=== PATIENT | female | born 1970 | race American Indian/Alaskan Native ===

== ENCOUNTER 2020-01-22 13:55 | Outpatient (CLI) | payer BC, MEDICARE, SELFPAY ==
[2020-01-23 02:41] LABS: COVID-19 RT-PCR UVMMC Result Negative (Negative)
== END 2020-01-22 14:15 ==
PROVIDERS: PCP Internal Medicine Gastroenterology; Visit Provider Internal Medicine Gastroenterology
DX: Z11.59 Encounter for screening for other viral diseases (principal); Z01.818 Encounter for other preprocedural examination
CPT/HCPCS: U0003

== ENCOUNTER 2020-11-08 02:33 | Outpatient (CLI) | payer BC, MEDICARE, SELFPAY ==
[2020-11-08 08:06] LABS: VALPROIC ACID 55.6 ug/mL (50-100)
[2020-11-08 08:08] LABS: Hemoglobin A1C 5.3 % (<5.7)
[2020-11-08 09:27] LABS: ALT 34 U/L (14-59); AST 20 U/L (15-37); Albumin 3.6 g/dL (3.4-5.0); Alkaline Phosphatase 57 U/L (46-116); BUN 18 mg/dL (7-18); Bilirubin, Total 0.3 mg/dL (0.2-1.0); Calcium 8.9 mg/dL (8.5-10.1); Calculated LDL 106 mg/dL (<100); Chloride 102 mmol/L (98-107); Cholesterol 196 mg/dL (<200); Estimated GFR 59.18 (mL/min/1.73m2); Glucose 92 mg/dL (74-106); HDL Cholesterol 75 mg/dL (40-60); Potassium 4.5 mmol/L (3.5-5.1); Sodium 132 mmol/L (136-145); TSH 2.03 uIU/mL (0.36-3.74); Total Protein 7.2 g/dL (6.4-8.2); Triglyceride 79 mg/dL (<150)
== END 2020-11-08 02:34 | disposition home or self-care (01) ==
LOC: LBO 02:33
PROVIDERS: PCP Internal Medicine Gastroenterology; Visit Provider Student in an Organized Health Care Education/Training Program
DX: Z79.899 Other long term (current) drug therapy (principal); Z51.81 Encounter for therapeutic drug level monitoring
CPT/HCPCS: 36415; 80053; 80061; 80164; 83036; 84443

== ENCOUNTER 2020-12-11 12:29 | Emergency (ER) | payer BC, MEDICARE, SELFPAY ==
--- NOTE | 2020-12-11 12:30 | DI.RAD_ITS ---
EXAM: XR TIB/FIB RT CLINICAL HISTORY: distal fib pain. TECHNIQUE: 2D digital imaging was performed. COMPARISON: No exams were available for comparison FINDINGS: There is an oblique nondisplaced fracture at and slightly below the neck of the proximal fibula. No other fractures identified in the fibula. No evidence of tibial plateau fracture. However, distally there appears to be a possible posterior malleolus fracture as seen on the lateral view. Recommend dedicated ankle views. IMPRESSION: DATA REPOSITORY: RADIATION DOSE DELIVERED:
[2020-12-11 12:32] VITALS: BP 128/85; PULSE 74; RESP 14; TEMP 36.7; O2SAT 99
[2020-12-11] MEDS: Acetaminophen 500 MG TAB 1000 MG PO (12:45)
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
--- NOTE | 2020-12-11 13:49 | DI.RAD_ITS ---
EXAM: XR ANKLE RT COMPLETE CLINICAL HISTORY: Lateral pain, question posterior fx. TECHNIQUE: 2D digital imaging was performed. COMPARISON: CR XR TIB/FIB RT from 12/11/2020 FINDINGS: Is dedicated ankle views do not reveal evidence of an obvious posterior malleolus fracture, as suspec can on tibia fibula films performed earlier same date. There is some soft tissue swelling. There is no widening of the mortise. Talar dome appears unremarkable. IMPRESSION: DATA REPOSITORY: RADIATION DOSE DELIVERED:
== END 2020-12-11 14:19 | disposition home or self-care (01) ==
PROVIDERS: Emergency Provider Emergency Medicine; PCP Internal Medicine Gastroenterology
DX: S93.491A Sprain of other ligament of right ankle, initial encounter (principal); W10.9XXA Fall (on) (from) unspecified stairs and steps, initial encounter
CPT/HCPCS: 29515; 99284; 73590; 73610; 99282

== ENCOUNTER 2021-04-11 02:32 | Outpatient (CLI) | payer BC, SELFPAY ==
[2021-04-11 15:00] LABS: Abs Immature Grans 0.05 10^3/uL (0.0-0.06); Absolute Basophil Count 0.09 10^3/uL (0.0-0.2); Absolute Eosinophil Count 0.54 10^3/uL (0.0-0.7); Absolute Monocyte Count 0.67 10^3/uL (0.1-0.8); Absolute Neutrophil Count 4.51 10^3/uL (1.2-6.7); Basophils % 1.2; HCT 37.9 % (36.0-46.0); HGB 12.8 g/dL (11.2-15.7); Immature Grans % 0.7; Lymphocytes % 23.5; MCH 32.6 pg (27.0-33.0); MCHC 33.8 % (32.0-36.0); MCV 96.4 fL (80-95); MPV 11.4 fL (8.0-11.0); Monocytes % 8.7; Neutrophils % 58.9; Nucleated RBC 0 %; Platelet Count 352 10^3/uL (130-400); RBC 3.93 10^6/uL (3.93-5.22); RDW 12.2 % (11.7-14.6); RDW-SD 43.2 fL; WBC 7.66 10^3/uL (4.4-10.8)
[2021-04-11 15:14] LABS: VALPROIC ACID 78.6 ug/mL (50-100)
[2021-04-11 15:33] LABS: Hemoglobin A1C 4.8 % (<5.7)
[2021-04-11 16:10] LABS: ALT 34 U/L (14-59); AST 27 U/L (15-37); Albumin 3.5 g/dL (3.4-5.0); Alkaline Phosphatase 83 U/L (46-116); Anion Gap 13.1 mmol/L (3-11); BUN 19 mg/dL (7-18); Bilirubin, Total 0.4 mg/dL (0.2-1.0); CO2 19.9 mmol/L (21.0-32.0); CREATININE 0.9 mg/dL (0.55-1.02); Calcium 9.1 mg/dL (8.5-10.1); Calculated LDL 97 mg/dL (<100); Chloride 102 mmol/L (98-107); Cholesterol 189 mg/dL (<200); Glucose 107 mg/dL (74-106); HDL Cholesterol 80 mg/dL (40-60); Potassium 4.4 mmol/L (3.5-5.1); Sodium 135 mmol/L (136-145); Triglyceride 60 mg/dL (<150)
[2021-04-11 16:49] LABS: *AMPHETAMINES SCREEN URINE Negative (Negative); *BARBITURATES SCREEN URINE Negative (Negative); *BENZODIAZEPINES SCREEN URINE Negative (Negative); Cannabinoids THC Positive (Negative); Cocaine Screen,Urine Negative (Negative); METHADONE URINE SCREEN Negative (Negative); OPIATES URINE SCREEN Negative (Negative)
[2021-04-11 16:51] LABS: Tricyclic Antidepressants Negative (Negative)
== END 2021-04-11 02:33 | disposition home or self-care (01) ==
PROVIDERS: PCP Internal Medicine Gastroenterology; Visit Provider Psychiatry & Neurology Psychiatry
DX: Z79.899 Other long term (current) drug therapy (principal)
CPT/HCPCS: 36415; 80053; 80061; 80307; 80164; 83036; 85025

== ENCOUNTER 2021-09-22 11:30 | Emergency (ER) | payer BC, OTHER, SELFPAY ==
[2021-09-22] VITALS (13 sets, daily range): BP systolic 126–145; BP diastolic 70–96; PULSE 79–112; RESP 9–22; TEMP 36.6; O2SAT 80–99
--- NOTE | 2021-09-22 11:30 | RT.EKG_ITS ---
APPROVED REPORT Exam: Resting ECG Reason for Exam: chest pain Patient Location: E HR:101 bpm ECG Measurements Heart Rate 101 AXIS IN [id number] P [id number] QRSd 85 QRS 28 QT 322 T 16 QTc 419 Conclusion Atrial fibrillation...V-rate 91-115, irreg A-activity sinus tachycardia at 101, normal axis, no STEMI, nondiagnostic EKG
--- NOTE | 2021-09-22 12:30 | DI.CT_ITS ---
Exam(s) CT THORAX ABDOMEN CTA EXAM: CT THORAX ABDOMEN CTA CLINICAL HISTORY: chest pain, eval aorta and for PE. TECHNIQUE: Imaging Protocol: Axial computed tomography images with coronal and sagittal reformatted images were created and reviewed CONTRAST MATERIAL: Intravenous: Omnipaque 350 Contrast volume:100 ml Oral: None COMPARISON: No exams were available for comparison FINDINGS: CHEST: THORACIC AORTA: The diameter of the ascending thoracic aorta is within normal limits. Maximum diamet er 2.6 cm. The maximum diameter of the aortic arch is 2.3 cm. Diameter of the descending thoracic a aaron is 2.3 cm. There is no evidence of dissection. Aortic arch anatomy is conventional. There is no significant stenosis at the origin the great vessels off the aortic arch. Both vertebral arteries originated conventional fashion off of the subclavian arteries. No evidence of subclavian artery st enosis proximal to the vertebral artery takeoff points to suggest subclavian steal possibility. ABDOMINAL AORTA: No evidence of abdominal aortic aneurysm. No significant atherosclerotic disease ab dominal aorta. No dilatation. No stenosis. Celiac and superior mesenteric arteries are patent with out evidence of stenosis at their origins. Both renal arteries are also patent. Inferior mesenteric artery is patent. Aortic bifurcation appears unremarkable. The aortoiliac segments were imaged out to the distal external iliac arteries and reveal normal luminal diameters with no evidence of aneury smal dilatation nor dissection. No significant stenosis. Internal iliac arteries are also patent an d nonaneurysmal. LUNGS: Very mild increased markings in the lateral segment of the right middle lobe. No other signif icant focal right lung findings and no pleural effusion.. In the opposite-left lung there are mild i ncreased markings in the posterior basal segment of the left lower lobe, also not associated with ple ural effusion. Remainder of the left lung, including the lingular segment is unremarkable. No obvious pulmonary emboli. MEDIASTINUM: There is no hilar nor mediastinal adenopathy. Visualized thyroid unremarkable. CARDIAC: Heart size is normal. There is no pericardial effusion. AORTA: Caliber of the thoracic aorta is within normal limits.There is no evidence of aortic dissectio n. ABDOMEN: There is no evidence of abdominal aortic aneurysm nor dissection.There is no aneurysmal dilatation of the common iliac arteries.The celiac and superior mesenteric arteries are patent. There is no ascites. LIVER: There are no focal hepatic lesions nor dilatation of intrahepatic ducts. GALLBLADDER/BILIARY: Gallbladder surgically absent CBD is not dilated. PANCREAS: No evidence of pancreatic mass nor dilatation of the pancreatic duct. SPLEEN: Spleen is not enlarged. There are no intrasplenic lesions. Splenic and portal veins are haddad nt. ADRENALS: There are no significant adrenal masses. KIDNEYS: There is a small cyst on the posterior cortex of the left kidney which measures 7 x 7 millim eters. No other focal renal findings. No calculi nor hydronephrosis. No solid renal masses. ABDOMINAL AORTA: The abdominal aorta is not enlarged. LYMPH NODES: No retroperitoneal adenopathy. There are few small left para-aortic lymph nodes, the la rgest measuring only 5 millimeters. No gross adenopathy . ABDOMINAL WALL: No evidence of significant anterior abdominal wall hernia. GI: There is no evidence of bowel obstruction, free air, nor abscess. OSSEOUS: No significant osseous lesions. IMPRESSION: 1. No evidence of aortic aneurysm in the chest and abdomen. No evidence of dissection. Normal heart size and no evidence pericardial effusion. 2. Mild increased markings noted in the lateral segment of the right middle lobe.. Also mild increas ed markings in the posterior basal segment of the left lower lobe. No other pulmonary findings. No pleural effusions. There are no obvious pulmonary emboli 3. Aortic bifurcation appears unremarkable as do the common and external iliac arteries. No evidence of aneurysmal dilatation of these vessels nor dissection. The distal aspect of the study was at the level of the distal external iliac arteries. RADIATION DOSE DELIVERED: 810.52mGy.cm Total DLP DATA REPOSITORY: All CT scans at this facility are submitted to the National Radiology Data Registry (NRDR) Dose Index Registry (DIR) with the [employer] (ACR). RADIATION OPTIMIZATION: All CT scans at this facility use at least one of these dose optimization te chniques: automated exposure control; mA and/or kV adjustment per patient size (includes targeted exa ms where dose is matched to clinical indication); or iterative reconstruction.
--- NOTE | 2021-09-22 12:52 | ED.GENADUL_ITS ---
Discharge Plan Disposition Patient Disposition: HOME Condition: Improving Discharge Details Clinical Impression: Chest pain, Abnormal CT scan Primary Care Provider: Tushar Urban ED Provider: Sarah Lopez Home Meds and New Rx's Prescriptions: Continued topiramate 200 mg tablet 200 mg DAILY 0RF sumatriptan succinate 100 mg tablet 100 mg PO DIRECTED PRN0RF clonazepam 0.5 mg tablet 0.5 mg TID PRN0RF olanzapine 2.5 mg tablet 2.5 mg QHS 0RF duloxetine 60 mg capsule,delayed release(DR/EC) 60 mg PO BID 0RF candesartan 16 mg tablet 16 mg HS 0RF Discharge Instructions Instructions: Chest Pain (ED) Additional Instructions: Please return immediately to the emergency department if you develop any new or worsening symptoms, if your condition does not improve as expected, or if you become otherwise concerned. It is extremely important that you call soon as possible to make an appointment to be seen in follow-up for this visit by your primary care doctor. Referrals: Tushar Urban [Primary Care Provider] - Discharge Data Discharge Date/Time-TO BE ENTERED AT DEPARTURE: 09/22/21 17:12 Medical Decision Making Lisseth Boone is a 51-year-old woman with a history of hypertension presenting to emergency department with chest pain. Patient reports that she was sitting at her desk at work at approximately 8:00 this morning when she developed sharp/pressure sensation in the middle of her chest. Patient reports that pain was constant for approximately 1.5 hours. Was worse with exertion while she was walking upstairs at work. Patient reports that pain gradually began to decrease, and is now only present with a forced cough or deep breathing. Patient denies any symptoms while currently resting in exam room. Patient reports that this morning her right arm felt somewhat achy, this has resolved. She denies any other pain, fevers, cough, shortness of breath, vomiting, diarrhea, numbness, weakness, rash, swelling. Patient reports that she has never had similar symptoms in the past. She denies any trauma or known inciting event. Patient reports that her mother at age 50 from aortic problem. She denies any other heart disease in her first-degree relatives. No family or personal history of blood clots. Patient reports she was previously well and in her usual state of health, has been eating and drinking as usual. On exam Pt is very well and non-toxic appearing. Benign cardiopulmonary exam. No chest wall TTP. Concern for ACS, MSK pain, aortic dissection, esophageal spasm, PE, other. Exam/hx at this time is not c/w sepsis, acute emergent non vascular intra-abdominal pathology. Plan for EKG, IV placement, IV fluid hydration, tele metry, CTA chest/abdomen, screening labs. Plan for repeat trop, EKG if initial w/u neg. Will monitor and reassess. Labs reviewed, trop neg, WBC 7.67, Hgb 13.5, AG 11.9. CTA neg for acute vascular process, shows increased lung marking of unknown significance. Pt without clinical PNA. Second trop neg. Pt reports that she has been pain free for entire ED stay, no longer has pleuritic pain, feels back to baseline and would like to go home. Pt is low risk for ACS by HEART score. Plan for outpt f/u for today's visit and for abnormal CT. I had a discussion with Patient regarding return to emergency department precautions, home care, and importance of outpatient follow-up. Pt verbalizes understanding of the plan and is amenable. Patient discharged to home with clear plan for outpatient follow-up. All questions were answered. Disposition decision was made weighing the risks and benefits of hospitalization versus outpatient treatment, the risk for further decompensation, and the patient's wishes. Medical Records Medical records reviewed: Yes I reviewed the patient's medical records. Imaging Data Radiologic Study: Attestation: I personally reviewed and interpreted this imaging study as follows: Radiologist's impression: Exam(s) CT THORAX ? ABDOMEN CTA EXAM: ? CT THORAX ? ABDOMEN CTA CLINICAL HISTORY: ? chest pain, eval aorta and for PE. ? TECHNIQUE:? Imaging Protocol: Axial computed tomography images with coronal and sagittal reformatted images were created and reviewed CONTRAST MATERIAL:? Intravenous: Omnipaque 350 Contrast volume:100 ml Oral: None COMPARISON:? No exams were available for comparison FINDINGS: CHEST: THORACIC AORTA: The diameter of the ascending thoracic aorta is within normal limits.? Maximum diameter 2.6 cm.? The maximum diameter of the aortic arch is 2.3 cm.? Diameter of the descending thoracic aorta is 2.3 cm.? There is no evidence of dissection.? Aortic arch anatomy is conventional.? There is no significant stenosis at the origin the great vessels off the aortic arch.? Both vertebral arteries originated conventional fashion off of the subclavian arteries.? No evidence of subclavian artery stenosis proximal to the vertebral artery takeoff points to suggest subclavian steal possibility. ABDOMINAL AORTA: No evidence of abdominal aortic aneurysm.? No significant atherosclerotic disease abdominal aorta.? No dilatation.? No stenosis.? Celiac and superior mesenteric arteries are patent without evidence of stenosis at their origins.? Both renal arteries are also patent.? Inferior mesenteric artery is patent.? Aortic bifurcation appears unremarkable.? The aortoiliac segments were imaged out to the distal external iliac arteries and reveal normal luminal diameters with no evidence of aneurysmal dilatation nor dissection.? No significant stenosis.? Internal iliac arteries are also patent and nonaneurysmal. LUNGS: Very mild increased markings in the lateral segment of the right middle lobe.? No other significant focal right lung findings and no pleural effusion..? In the opposite-left lung there are mild increased markings in the posterior basal segment of the left lower lobe, also not associated with pleural effusion.? Remainder of the left lung, including the lingular segment is unremarkable. No obvious pulmonary emboli. MEDIASTINUM: There is no hilar nor mediastinal adenopathy. Visualized thyroid unremarkable. CARDIAC: Heart size is normal.? There is no pericardial effusion. AORTA: Caliber of the thoracic aorta is within normal limits.There is no evidence of aortic dissection. ABDOMEN: There is no evidence of abdominal aortic aneurysm nor dissection.There is no aneurysmal dilatation of the common iliac arteries.The celiac and superior mesenteric arteries are patent. There is no ascites. LIVER: There are no focal hepatic lesions nor dilatation of intrahepatic ducts.? GALLBLADDER/BILIARY: Gallbladder surgically absent CBD is not dilated. PANCREAS: No evidence of pancreatic mass nor dilatation of the pancreatic duct.? SPLEEN: Spleen is not enlarged.? There are no intrasplenic lesions. Splenic and portal veins are patent. ADRENALS: There are no significant adrenal masses. KIDNEYS: There is a small cyst on the posterior cortex of the left kidney which measures 7 x 7 millimeters.? No other focal renal findings.? No calculi nor hydronephrosis. No solid renal masses. ABDOMINAL AORTA: The abdominal aorta is not enlarged. LYMPH NODES: No retroperitoneal adenopathy.? There are few small left para- aortic lymph nodes, the largest measuring only 5 millimeters.? No gross adenopathy . ABDOMINAL WALL: No evidence of significant anterior abdominal wall hernia.? GI: There is no evidence of bowel obstruction, free air, nor abscess. OSSEOUS: No significant osseous lesions. IMPRESSION: 1. No evidence of aortic aneurysm in the chest and abdomen.? No evidence of dissection.? Normal heart size and no evidence pericardial effusion. 2. Mild increased markings noted in the lateral segment of the right middle lobe..? Also mild increased markings in the posterior basal segment of the left lower lobe.? No other pulmonary findings.? No pleural effusions.? There are no obvious pulmonary emboli 3. Aortic bifurcation appears unremarkable as do the common and external iliac arteries.? No evidence of aneurysmal dilatation of these vessels nor dissection.? The distal aspect of the study was at the level of the distal external iliac arteries. Lab Data Lab results reviewed: Yes I reviewed the patient's lab results. Labs: Laboratory Tests Range/Units 09/22/21 09/22/21 09/22/21 12:50 12:50 15:45 WBC (4.4-10.8) 10^3/uL 7.67 RBC (3.93-5.22) 10^6/uL 3.96 Hgb (11.2-15.7) g/dL 13.5 Hct (36.0-46.0) % 39.9 MCV (80-95) fL 100.8 H MCH (27.0-33.0) pg 34.1 H MCHC (32.0-36.0) % 33.8 RDW (11.7-14.6) % 12.1 Plt Count (130-400) 10^3/uL 323 MPV (8.0-11.0) fL 10.9 Immature Gran % 0.8 Neutrophils % 59.2 Lymphocytes % 26.3 Monocytes % 8.5 Eosinophils % 4.0 Basophils % 1.2 Nucleated RBC % % 0 Absolute Neutrophils (1.2-6.7) 10^3/uL 4.54 Absolute Lymphocytes (1.2-3.4) 10^3/uL 2.02 Absolute Monocytes (0.1-0.8) 10^3/uL 0.65 Absolute Eosinophils (0.0-0.7) 10^3/uL 0.31 Absolute Basophils (0.0-0.2) 10^3/uL 0.09 Sodium (136-145) mmol/L 141 Potassium (3.5-5.1) mmol/L 3.7 Chloride (98-107) mmol/L 106 Carbon Dioxide (21.0-32.0) mmol/L 23.1 Anion Gap (3-11) mmol/L 11.9 H BUN (7-18) mg/dL 17 Creatinine (0.55-1.02) mg/dL 0.9 Estimated GFR/1.73 m2 (mL/min/1.73m2) >= 60.00 Glucose (74-106) mg/dL 93 Calcium (8.5-10.1) mg/dL 9.4 Magnesium (1.8-2.4) mg/dL 2.0 Total Bilirubin (0.2-1.0) mg/dL 0.4 AST (15-37) U/L 52 H ALT (14-59) U/L 54 Alkaline Phosphatase (46-116) U/L 149 H Troponin I (<or=60) ng/L < 50 < 50 Total Protein (6.4-8.2) g/dL 7.8 Albumin (3.4-5.0) g/dL 3.8 ECG Data Attestation: I personally reviewed and interpreted this ECG (s) as follows: Interpretation: EKG shows sinus tachycardia at 101, normal axis, no STEMI, nondiagnostic EKG Repeat EKG 16: 02 shows sinus rhythm 84, normal axis, no acute ischemic changes, nondiagnostic EKG HPI General Mode of arrival: ambulatory . Date/Time Provider Initiated Documentation: 09/22/21 12:11 . Limitations to Documentation: no limitations . Information obtained by: patient, RN notes reviewed and old records reviewed . HPI Narrative: Lisseth Boone is a 51-year-old woman with a history of hypertension presenting to emergency department with chest pain. Patient reports that she was sitting at her desk at work at approximately 8:00 this morning when she developed sharp/pressure sensation in the middle of her chest. Patient reports that pain was constant for approximately 1.5 hours. Was worse with exertion while she was walking upstairs at work. Patient reports that pain gradually began to decrease, and is now only present with a forced cough or deep breathing. Patient denies any symptoms while currently resting in exam room. Patient reports that this morning her right arm felt somewhat achy, this has resolved. She denies any other pain, fevers, cough, shortness of breath, vomiting, diarrhea, numbness, weakness, rash, swelling. Patient reports that she has never had similar symptoms in the past. She denies any trauma or known inciting event. Patient reports that her mother at age 50 from aortic problem. She denies any other heart disease in her first-degree relatives. No family or personal history of blood clots. Patient reports she was previously well and in her usual state of health, has been eating and drinking as usual. Related Data Home Medications Medication Instructions Recorded Confirmed candesartan 16 mg tablet 16 mg HS 09/22/21 09/22/21 clonazepam 0.5 mg tablet 0.5 mg TID PRN 09/22/21 09/22/21 duloxetine 60 mg capsule,delayed 60 mg PO BID 09/22/21 09/22/21 release olanzapine 2.5 mg tablet 2.5 mg QHS 09/22/21 09/22/21 sumatriptan succinate 100 mg tablet 100 mg PO DIRECTED PRN 09/22/21 09/22/21 topiramate 200 mg tablet 200 mg DAILY 09/22/21 09/22/21 Allergies Allergy/AdvReac Type Severity Reaction Status Date / Time No Known Allergies Allergy Unverified 09/22/21 12:55 General Stated Complaint: Chest Pain MAIA: 3 Review of Systems Narrative: Constitutional: denies fevers Eyes: denies eye pain ENT: denies ear pain, dental pain, sore throat Cardiovascular: denies edema, reports chest pain Respiratory: denies SOB, cough GI: denies abdominal pain, vomiting, diarrhea : denies flank pain MSK:, Reports right arm aching, denies back pain, neck pain, arthralgias, other myalgias Skin: denies rash Neuro: denies headaches, numbness, weakness PFSH All Active Problems (Updated 09/22/21 @ 15:15 by Sarah Lopez MD) Right ankle sprain (Acute) Chest pain (Acute) Abnormal CT scan (Acute) Social History Smoking/Tobacco Use Status: Never Smoking risk assessment performed?: Yes Alcohol Intake: never Drug use: Never Substance use type: does not use Do you feel safe at home: Yes Do you feel safe in your relationship?: Yes Exam Narrative Exam Narrative: Constitutional: well and [id number], pleasant, conversing normally HENT: head atraumatic/normocephalic/normal inspection, mucous membranes moist Eyes: conjunctiva normal, sclera normal, pupils 3mm b/l Neck: no stridor, normal ROM, trachea midline Chest: normal inspection, no tenderness to palpation Resp: normal work of breathing, LCTAB Cardio: Tachycardic rate, normal rhythm, no murmur appreciated GI: abdomen soft, non-tender, non-distended Back: normal inspection, no rash Skin: warm, dry, normal color, no rash Neuro: alert, not altered, grossly non-focal, normal tone Ext: no edema, no posterior calf tenderness to palpation Psych: normal mood, normal affect, normal behavior Course Vital Signs Vital signs: Vital Signs Temperature 36.6 C 09/22/21 11:39 Pulse 112 H 09/22/21 11:39 Respiratory Rate 18 09/22/21 11:39 Blood Pressure 145/93 H 09/22/21 11:39 Pulse Oximetry 97 09/22/21 11:39 Temperature 36.6 C 09/22/21 11:39 Temperature Source Temporal Artery Scan 09/22/21 11:39 Pulse 112 H 09/22/21 11:39 Respiratory Rate 18 09/22/21 11:39 Blood Pressure 145/93 H 09/22/21 11:39 Blood Pressure Position Sitting 09/22/21 11:39 Pulse Oximetry 97 09/22/21 11:39 Oxygen Delivery Method Room Air 09/22/21 11:39 Oxygen Flow Rate 0 09/22/21 11:39
[2021-09-22 12:59] LABS: Abs Immature Grans 0.06 10^3/uL (0.0-0.06); Absolute Basophil Count 0.09 10^3/uL (0.0-0.2); Absolute Eosinophil Count 0.31 10^3/uL (0.0-0.7); Absolute Lymphocyte Count 2.02 10^3/uL (1.2-3.4); Absolute Monocyte Count 0.65 10^3/uL (0.1-0.8); Absolute Neutrophil Count 4.54 10^3/uL (1.2-6.7); Basophils % 1.2; HCT 39.9 % (36.0-46.0); HGB 13.5 g/dL (11.2-15.7); Immature Grans % 0.8; Lymphocytes % 26.3; MCH 34.1 pg (27.0-33.0); MCHC 33.8 % (32.0-36.0); MCV 100.8 fL (80-95); MPV 10.9 fL (8.0-11.0); Monocytes % 8.5; Neutrophils % 59.2; Nucleated RBC 0 %; Platelet Count 323 10^3/uL (130-400); RBC 3.96 10^6/uL (3.93-5.22); RDW 12.1 % (11.7-14.6); RDW-SD 45.8 fL; WBC 7.67 10^3/uL (4.4-10.8)
[2021-09-22] MEDS: Normal Saline 1,000 ML 1000 ML IV (13:04)
[2021-09-22 13:17] LABS: ALT 54 U/L (14-59); AST 52 U/L (15-37); Albumin 3.8 g/dL (3.4-5.0); Alkaline Phosphatase 149 U/L (46-116); Anion Gap 11.9 mmol/L (3-11); BUN 17 mg/dL (7-18); Bilirubin, Total 0.4 mg/dL (0.2-1.0); CO2 23.1 mmol/L (21.0-32.0); CREATININE 0.9 mg/dL (0.55-1.02); Calcium 9.4 mg/dL (8.5-10.1); Chloride 106 mmol/L (98-107); Glucose 93 mg/dL (74-106); Potassium 3.7 mmol/L (3.5-5.1); Sodium 141 mmol/L (136-145); Total Protein 7.8 g/dL (6.4-8.2); Troponin I < 50 ng/L (<or=60)
[2021-09-22] MEDS: Omnipaque 350 MG/ML 100 ML BTL IJ (13:47)
--- NOTE | 2021-09-22 15:15 | RT.EKG_ITS ---
APPROVED REPORT Exam: Resting ECG Reason for Exam: chest pain Patient Location: E HR:84 bpm ECG Measurements Heart Rate 84 AXIS [place] [id number] P [id number] QRSd 89 QRS 20 QT 351 T 11 QTc 415 Conclusion Atrial fibrillation...V-rate 81- 88, irreg A-activity sinus rhythm 84, normal axis, no acute ischemic changes, nondiagnostic EKG
[2021-09-22 16:08] LABS: Troponin I < 50 ng/L (<or=60)
== END 2021-09-22 17:12 | disposition home or self-care (01) ==
PROVIDERS: Emergency Provider Student in an Organized Health Care Education/Training Program; PCP Internal Medicine Gastroenterology
DX: R07.9 Chest pain, unspecified (principal); R91.8 Other nonspecific abnormal finding of lung field; Z82.49 Family history of ischemic heart disease and other diseases of the circulatory system; I10 Essential (primary) hypertension
CPT/HCPCS: 36415; 71275; 74175; 80053; 80061; 86803; 93005; 96360; 99285; 83036; 83735; 84484; 85025; 93010; 99284; J3490

== ENCOUNTER 2022-02-25 11:24 | Outpatient (REF) | payer OTHER, SELFPAY ==
[2022-02-25 20:11] LABS: Abs Immature Grans 0.04 10^3/uL (0.0-0.06); Absolute Basophil Count 0.07 10^3/uL (0.0-0.2); Absolute Eosinophil Count 0.63 10^3/uL (0.0-0.7); Absolute Lymphocyte Count 1.55 10^3/uL (1.2-3.4); Absolute Monocyte Count 0.54 10^3/uL (0.1-0.8); Absolute Neutrophil Count 3.88 10^3/uL (1.2-6.7); Eosinophils % 9.4; HCT 37.5 % (36.0-46.0); HGB 13.1 g/dL (11.2-15.7); Immature Grans % 0.6; Lymphocytes % 23.1; MCH 33.9 pg (27.0-33.0); MCHC 34.9 % (32.0-36.0); MCV 97 fL (80-95); MPV 12.5 fL (8.0-11.0); Neutrophils % 57.9; Platelet Count 337 10^3/uL (130-400); RBC 3.86 10^6/uL (3.93-5.22); RDW 12.5 % (11.7-14.6); RDW-SD 44.1 fL; WBC 6.71 10^3/uL (4.4-10.8)
[2022-02-25 21:16] LABS: Calculated LDL 115 mg/dL (<100); Cholesterol 215 mg/dL (<200); HDL Cholesterol 76 mg/dL (40-60); Triglyceride 122 mg/dL (<150)
[2022-02-27 09:43] LABS: Hepatitis C Ab w Rflx HCV PCR Negative (Negative)
--- OUTSIDE RECORDS SUMMARY | 2022-03-18 11:27 | XMS_ITS | Encounter Summary ---
:1970 Author Organization [facility] Address [address] [place] [address] Care Team Providers Name Role Phone Polly Schmid NP Primary Care Provider Unavailable Encounter Details Date Type Department Care Team Description 06/11/2009 Orders Only [facility] Jason Pang, Psychiatry - S Prosp ect [address] [place] [id number] [place] [phone] (Wo rk) Social History Tobacco Use Types Packs/Day Years Used Date Never Assessed Sex Assigned at Date Recorded Not on file documented as of this encounter Plan of Treatment Not on filedocumented as of this encounter Procedures Procedure Name Priority Date/Time Associated Comments Diagnosis HPV DETECTION, HIGH Routine 06/11/2009 15:13 Resu lts for this RISK TYPES EDT procedure are i n the results section. CYTOPATHOLOGY Routine 06/11/2009 0:00 Results for this EDT procedure are i n the results section. documented in this encounter Results HUMAN PAPILLOMA VIRUS DNA TEST (06/11/2009 15:13 EDT) Specimen Description Cervix, ThinPrep [facility] vial Result Negative for HPV [facility] types 16, 18, 31, 33, 35, 39, 45, 51, 52, 56, 58, 59, and 68. Report Status Final [facility] 06/26/2009 Specimen Performing Organization Address City/State/ZIP Code Phon e Number [facility] [address] [place] [address] SERVICES [facility] [address] [address] CYTOPATHOLOGY (06/11/2009 0:00 EDT) Pathology Report: CYTOPATHOLOGY REPORT ? [facility] ? LAB Reports generated via [employer] interface contain original data; ? however they are lacking the format of the original report. ? Caution should be taken when reading/interpreting unformatted reports. ? Name: ? LISSETH ARAGON ? Accession #: ? [id number] ? : ? 1970 (Age: 38) ??F ?Collect Date: ? 06/11/2009 ? Location: ? [facility] ? Receive Date: ? 06/12/2009 ? Provider: ?REMINGTON PANG MD ? Copy to: ? Specimen/Source: ? Pap Test, Cervix/Endocervix, ThinPrep Imaging System ? with manual evaluation ? Last Menstrual Period: ? 01/2009 ? Previous Gynecologic Patholo gy: ? ASC-US: 10/08 ? HPV: + HR 10/08, 03/09 & 08/ 09 ? LSIL: 03/09 & 08/09 ? Treatment History: ? Colposcopy: 03/09 LGSIL ? Other: ? HPVDX - HPV testing requeste d regardless of diagnosis on current ThinPrep Pap ?? test. ? SPECIMEN ADEQUACY ? Satisfactory for Eval uation ? - transformation zone compon ent present ? GENERAL CATEGORIZATION ? Negative for Intraepi thelial Lesion or Malignancy ? INTERPRETATION ? Reactive cellular marcos nges associated with inflammation present (includes ?? repair). ? Document reviewed and electr onically signed by: ? ABDELMONEM ELHOSSEINY MD ? Report Date: ??11/05/ 2009 18:17 ? End of Report ? Specimen Performing Organization Address City/State/ZIP Code Phon e Number [facility] [address] [place] [address] SERVICES [facility] [address] [place] [address] documented in this encounter Visit Diagnoses Not on filedocumented in this encounter Care Teams Barrel Assembler Relationship Specialty Start Date End Date Polly Schmid NP PCP - General 04/24/09 02/25/14 documented as of this encounter
--- OUTSIDE RECORDS SUMMARY | 2022-03-18 11:27 | XMS_ITS | Encounter Summary ---
:[address] [facility] Address [address] [place] [address] Care Team Providers Name Role Phone Polly Schmid NP Primary Care Provider Unavailable Encounter Details Date Type Department Care Team Description 12/15/2010 Results Only [facility] Shayla Courtney, Laboratory Services - [facility] [address] [place] [address] [address] [place] [address] [place] [address] [phone] Social History Tobacco Use Types Packs/Day Years Used Date Never Assessed Sex Assigned at Date Recorded Not on file documented as of this encounter Plan of Treatment Not on filedocumented as of this encounter Procedures Procedure Name Priority Date/Time Associated Diagnosis Comme nts PAP TEST- RESULT Routine 12/15/2010 0:00 EDT Resu lts for this ONLY procedure are i n the results section. documented in this encounter Results PAP TEST- RESULT ONLY (12/15/2010 0:00 EDT) Pathology Report: CYTOPATHOLOGY REPORT ? [facility] ? LAB Reports generated via electr onic interface contain original data; ? however they are lacking the format of the original report. ? Caution should be taken when reading/interpreting unformatted reports. ? Name: ? SLICER, CAROLINA ? Accession #: ? [id number] ? : ? 1970 (Age: 40) ??F ?Collect Date: ? 12/15/2010 ? Location: ? [facility] ? Receive Date: ? 12/16/2010 ? Provider: ?SHAYLA COURTNEY APRN ? Copy to: ? Specimen/Source: ? Pap Test, Source Not Provided, ThinPrep Imaging System ?? with manual evaluation ? Last Menstrual Period: ? SPECIMEN ADEQUACY ? Satisfactory for Eval uation ? - transformation zone compon ent present ? GENERAL CATEGORIZATION ? Negative for Intraepi thelial Lesion or Malignancy ? INTERPRETATION ? Shift in tashi presen t suggestive of bacterial vaginosis. ? Document reviewed and electr onically signed by: ? Polly Rosa, SCT( ASCP) ? Report Date: ??05/05/ 2011 14:39 ? End of Report ? Specimen Performing Organization Address City/State/[facility] Code Phon e Number [facility] [address] [place] [address] SERVICES [facility] [address] [place] [address] documented in this encounter Visit Diagnoses Not on filedocumented in this encounter Care Teams Buyer Relationship Specialty Start Date End Date Polly Schmid NP PCP - General 04/24/09 02/25/14 documented as of this encounter
--- OUTSIDE RECORDS SUMMARY | 2022-03-18 11:27 | XMS_ITS | Encounter Summary ---
:1970 Author Organization [facility] Address [address] [place] [address] Care Team Providers Name Role Phone Polyl Schmid NP Primary Care Provider Unavailable Encounter Details Date Type Department Care Team Description 08/25/2012 Results Only [facility] Eric Huang Chi, MD Imaging Rheumatology & [address] [place] [address] A venue Immunology - [facility], [facility], [address] 5 [address] [place] [phone] (Wo rk) Social History Tobacco Use Types Packs/Day Years Used Date Never Assessed Sex Assigned at Date Recorded Not on file documented as of this encounter Plan of Treatment Pending Results Name Type Priority Associated Diagnoses Date/Ti me OUTSIDE IMAGES - US BODY Imaging 05/2013 12:51 EST OUTSIDE IMAGES - CT NEURO Imaging 12:51 EST OUTSIDE IMAGES - CT NEURO Imaging 12:51 EST OUTSIDE IMAGES - OTHER Imaging 08/25 12:51 EST CHEST OUTSIDE IMAGES - OTHER Imaging 08/25 12:51 EST CHEST OUTSIDE IMAGES - NM OTHER Imaging 12:51 EST documented as of this encounter Visit Diagnoses Not on filedocumented in this encounter Care Teams Packing Floor Worker Relationship Specialty Start Date End Date Polly Schmid NP PCP - General 04/24/09 02/25/14 documented as of this encounter
--- OUTSIDE RECORDS SUMMARY | 2022-03-18 11:27 | XMS_ITS | Encounter Summary ---
:1970 Author Organization [facility] Address [address] [place] [address] Care Team Providers Name Role Phone Polly Schmid NP Primary Care Provider Unavailable Reason for Visit Reason Comments Other Encounter Details Date Type Department Care Team Description 12/29/2012 Telephone [facility] Eric Huang Chi, MD Other Rheumatology & Immunology - [address] [facility], [address], [address] [place], [place] [id number] [place], [place] [phone] (Wo rk) Social History Tobacco Use Types Packs/Day Years Used Date Current Every Day Smoker Cigarettes 0.5 2 Smokeless Tobacco: Never Used Alcohol Use Standard Drinks/Week Comments No 0 (1 standard drink = 0.6 oz pure alcoho l) Sex Assigned at Date Recorded Not on file documented as of this encounter Ordered Prescriptions Prescription Sig Dispensed Refills Start Date End Date omeprazole (PRILOSEC) 20 TAKE 1 CAPSULE BY 30 Cap 3 12/14 mg capsule MOUTH DAILY FOR STOMACH documented in this encounter Miscellaneous Notes Telephone Encounter - Rajwinder Del Rio RN - 12/30/2012 1333 EDT Spoke with Eduardo Severino. Cancelled refill of omeprazole. Left a message for the patient letting her know she can get her medication through her pcp or she can make an FUR and keep it with ectronically signed by Rajwinder Del Rio RN at 12/30/2012 13:36 EDTTelephone Encounter - Eric Huang Chi, MD - 12/30/2012 1309 EDT Did not sign off on omeprazole refill as pt no showed appt with us yesterday December 29. documented in this encounter Plan of Treatment Not on filedocumented as of this encounter Visit Diagnoses Not on filedocumented in this encounter Discontinued Medications Medication Sig Discontinue Reason Start Date End Date omeprazole (PRILOSEC) 20 Take 1 Cap by mouth Reorder 3 12/29/2012 mg capsuleIndications: daily. For stomach. History of peptic ulcer documented as of this encounter Care Teams Clinical Statistics Manager Relationship Specialty Start Date End Date Polly Schmid NP PCP - General 04/24/09 02/25/14 documented as of this encounter
--- OUTSIDE RECORDS SUMMARY | 2022-03-18 11:27 | XMS_ITS | Encounter Summary ---
:1970 Author Organization [facility] Address [address] [place] [address] Care Team Providers Name Role Phone Lolis Moss MD Primary Care Provider Encounter Details Date Type Department Care Team Description 02/26/2022 Lab Requisition [facility] Outr Resulting Lab, Pathology & Laboratory Provider [facility] [address] [place] [address] Social History Tobacco Use Types Packs/Day Years [...] Name Priority Date/Time Associated Diagnosis Comme nts HEPATITIS C AB W Routine 02/25/2022 14:52 Results for this REFLEX TO HCV RNA EDT procedure are in BY PCR the results section. documented in this encounter Results HEPATITIS C AB W REFLEX TO HCV RNA BY PCR (02/25/2022 14:52 EDT) Pathologist Sig nature Hep C Antibody Negative Negative [facility] Specimen Blood - Venous blood (substance) Performing Organization Address City/State/ZIP Code Phon e Number [facility] [address] [place] [address] SERVICES documented in this encounter Visit Diagnoses Not on filedocumented in this encounter Care Teams Primary Products Inspectors Relationship Specialty Start Date End Date Lolis Moss MD PCP - General 01/25/20 [address] [place] [address] documented as of this encounter
--- OUTSIDE RECORDS SUMMARY | 2022-03-18 11:27 | XMS_ITS | Encounter Summary ---
:1970 Author Organization [facility] Address [address] [place] [address] Care Team Providers Name Role Phone Polly Schmid [employer] IN[employer] Primary Care Provider Unavailable Reason for Visit Reason Comments Other Encounter Details Date Type Department Care Team Description 01/02/2013 [facility] Eric Huang Chi, MD Other Rheumatology & Immunology - [address] [place] [address], [address] [place], [place] [address] [place] [phone] (Wo rk) Social History Tobacco Use Types [...] on filedocumented in this encounter Care Teams Field Health Officer Relationship Specialty Start Date End Date Polly Schmid NP PCP - General 04/24/09 02/25/14 documented as of this encounter
--- OUTSIDE RECORDS SUMMARY | 2022-03-18 11:27 | XMS_ITS | Encounter Summary ---
:1970 Author Organization [facility] Address [address] [place] [address] Care Team Providers Name Role Phone Unavailable Primary Care Provider Unavailable Encounter Details Date Type Department Care Team Description 04/09/2009 Orders Only [facility] Shayla Courtney, Laboratory Services - [facility] [address] [place] [address] [address] [place] [address] [place], [place] [address] [phone] Social History Tobacco Use Types Packs/Day Years Used Date Never Assessed Sex Assigned at Date Recorded Not on file documented as of this encounter Plan of Treatment Not on filedocumented as of this encounter Procedures Procedure Name Priority Date/Time Associated Diagnosis Comme nts CYTOPATHOLOGY Routine 04/09/2009 0:00 EDT Results for this procedure are i n the results section . documented in this encounter Results CYTOPATHOLOGY (04/09/2009 0:00 EDT) Pathology Report: CYTOPATHOLOGY REPORT ? [facility] ? LAB Reports generated via electr onic interface contain original data; ? however they are lacking the format of the original report. ? Caution should be taken when reading/interpreting unformatted reports. ? Name: ? CAROLINA ARAGON ? Accession #: ? [id number] ? : ? 1970 (Age: 38) ??F ?Collect Date: ? 04/09/2009 ? Location: ? [facility] ? Receive Date: ? 04/12/2009 ? Provider: ?SHAYLA COURTNEY APRN ? Copy to: ? Specimen/Source: ? Pap Test, Source Not Provided, ThinPrep Imaging System ?? with manual evaluation ? Last Menstrual Period: ? Other: ? Additional clinical informat ion: Last pap 03/04/09 ? HPVA - HPV testing requested if ASC-US on the current ThinPrep Pap test. ? SPECIMEN ADEQUACY ? Satisfactory for Eval uation ? - transformation zone compon ent present ? GENERAL CATEGORIZATION ? Epithelial Cell Abnor mality ? INTERPRETATION ? Squamous Cell Abnorma lity - Low grade squamous intraepithelial lesion ? (LSIL). ? EDUCATIONAL NOTES/RECOMMENDA TIONS ? [facility] recommends follo wing the 2006 Consensus Guidelines for the Management of Women with Abnormal Cervi ksenia Cancer Screening Tests (JLGTD, ? 2007;11(4):201-222). ??Conse nsus guidelines are available online at ? www.ASCCP.org. ? Document reviewed and electr onically signed by: ? Jerica C. Carrero, MD ? Report Date: ??09/08/ 2009 21:27 ? End of Report ? Specimen Performing Organization Address City/State/ZIP Code Phon e Number [facility] [address] [place] [address] SERVICES [facility] [address] [place] [address] documented in this encounter Visit Diagnoses Not on filedocumented in this encounter
--- OUTSIDE RECORDS SUMMARY | 2022-03-18 11:27 | XMS_ITS | Encounter Summary ---
:1970 Author Organization [facility] Address [address] [place] [address] Care Team Providers Name Role Phone Unavailable Primary Care Provider Unavailable Encounter Details Date Type Department Care Team Description 10/17/2008 Before [facility] Jason Pang Converted Visit Psychiatry - Geovanni Hinojosa MD ([address] [phone] (Wo rk) Social History Tobacco Use Types Packs/Day Years Used Date Never Assessed Sex Assigned at Date Recorded Not on file documented as of this encounter Plan of Treatment Not on filedocumented as of this encounter Procedures Procedure Name Priority Date/Time Associated Comments Diagnosis HPV DETECTION, HIGH Routine 10/17/2008 8:19 Resul ts for this RISK TYPES EST procedure are i n the results section. CYTOPATHOLOGY Routine 10/17/2008 0:00 Results for this EST procedure are i n the results section. documented in this encounter Results HUMAN PAPILLOMA VIRUS DNA TEST (10/17/2008 8:19 EST) Specimen Description Cervix, ThinPrep [facility] vial LAB Result Positive for one or more of HPV types 16,18,31,33,35,39,45,51,52,56,58,59, or 68. These [facility] high/intermediate risk HPV t ypes are associated with dysplasia and some cervical cancers. LAB Report Status Final [facility] 10/30/2008 LAB Specimen Performing Organization Address City/State/ZIP Code Phon e Number [facility] [address] [place] [address] SERVICES [facility] [address] [place] [address] CYTOPATHOLOGY (10/17/2008 0:00 EST) Pathology Report: CYTOPATHOLOGY REPORT ? [facility] DAO EN ? LAB Reports generated via electr onic interface contain original data; ? however they are lacking the format of the original report. ? Caution should be taken when reading/interpreting unformatted reports. ? Name: ? LISSETH ARAGON ? Accession #: ? [id number] ? : ? 1970 (Age: 38) ??F ?Collect Date: ? 10/17/2008 ? Location: ? [facility] ? Receive Date: ? 10/19/2008 ? Provider: ?REMINGTON PANG MD ? Copy to: ? Specimen/Source: ? Pap Test, Cervix/Endocervix, ThinPrep Imaging System ? with manual evaluation ? Last Menstrual Period: ? 02/01/09 ? Previous Gynecologic Patholo gy: ? ASC-US ? HPV: + HR ? Other: ? HPVDX - HPV testing requeste d regardless of diagnosis on current ThinPrep Pap ?? test. ? SPECIMEN ADEQUACY ? Satisfactory for Eval uation ? - transformation zone compon ent present ? GENERAL CATEGORIZATION ? Epithelial Cell Abnor mality ? INTERPRETATION ? Squamous Cell Abnorma lity - Low grade squamous intraepithelial lesion ? (LSIL). ? EDUCATIONAL NOTES/RECOMMENDA TIONS ? FA recommends jacob wing the 2006 Consensus Guidelines for the Management of Women with Abnormal Cervi ksenia Cancer Screening Tests (JLGTD, ? 2007;11(4):201-222). ??Conse nsus guidelines are available online at ? www.ASCCP.org. ? Document reviewed and electr onically signed by: ? Valeria Pineda P hD ? Report Date: ??10/24/ 2008 13:30 ? End of Report ? Specimen Performing Organization Address City/State/ZIP Code Phon e Number [facility] [address] [place] [address] SERVICES [facility] [address] [place] [address] documented in this encounter Visit Diagnoses Not on filedocumented in this encounter
--- OUTSIDE RECORDS SUMMARY | 2022-03-18 11:27 | XMS_ITS | Encounter Summary ---
:1970 Author Organization [facility] [place] [address] Care Team Providers Name Role Phone Travis Torres MD Primary Care Provider Reason for Visit Reason Comments Medication Refill Encounter Details Date Type Department Care Team Description 02/05/2022 Refill Neurology at [facility] Alice Cameron Alves Ch ron migraine without Road aura, with intractable [address] [facility] migraine, so stated, [place] [phone] with status migrainosus [phone] [place], [place] [address] (Wo rk) Social History Tobacco Use Types Packs/Day Years Used Date Current Every Day Smoker Cigarettes 0.5 15 Candelario t: 08/30/2017 Smokeless Tobacco: Never Used Alcohol Use Standard Drinks/Week Comments Not Currently 0 (1 standard drink = 0.6 oz pure alcoho l) Sex Assigned at Date Recorded Not on file documented as of this encounter Plan of Treatment Upcoming Encounters Date Type Specialty Care Team Description 04/14/2022 Office Visit Neurology Cameron Alves [facility] [place] [address] (Wo rk) documented as of this encounter Goals Goal Patient Goal Associated Recent Patient-Stated? Author Type Problems Progress DH Home Medication Patient No Kendrick ridley, Compliance and Facing Kan Restrepo, Understanding Action Plan RPH Note: Formatting of this note might be d ifferent from the original. Patient's specific desired goal: to have fewer headaches and to use less adjunct / rescue medication Measured by: calendar, frequency of use of adjunct / rescue meds Time-frame to meet goal: 90-150 days documented as of this encounter Visit Diagnoses Diagnosis Chronic migraine without aura, with intr actable migraine, so stated, with status migrainosus documented in this encounter Care Teams Cartographic Engineer Relationship Specialty Start Date End Date Travis Torres MD PCP - General Family Medicine 01/09/22 [address] [place] [phone] documented as of this encounter
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
--- OUTSIDE RECORDS SUMMARY | 2022-03-18 11:27 | XMS_ITS | Encounter Summary ---
:1970 Author Organization [facility] Address [address] [place] [address] Care Team Providers Name Role Phone Lolis Moss MD Primary Care Provider Encounter Details Date Type Department Care Team Description 01/25/[address] [facility] Dwayne Urban MD MANOMETRY ESOPHAGEAL Endoscopy - [address] [[id number] (CPT??)] [facility], [address], [address] [place], [place] [id number] [place] [address] [phone] (Wo rk) Surgery Details Date/Time Status Location OR Service Patient Case Class Case Tr auma Class Type Case? 01/25/20 Posted [facility] 0910 GI/ENDO 01 Outpatient Elective Procedure Panel 1 Procedure LRB Anes Op Region Wound Class Commen ts MANOMETRY ESOPHAGEAL N/A Surgeon Surgeon Role Service Panel Tushar Urban MD Primary Gastroenterology 1 Social History Tobacco Use Types Packs/Day Years Used Date Current Every Day Smoker Cigarettes 0.5 2 Smokeless Tobacco: Never Used Alcohol Use Standard Drinks/Week Comments No 0 (1 standard drink = 0.6 oz pure alcoho l) Sex Assigned at Date Recorded Not on file documented as of this encounter Last Filed Vital Signs Vital Sign Reading Time Taken Comments Blood Pressure 128/85 01/25/2020 0811 EDT Pulse - - Temperature 36.3 ??C (97.3 ??F) 01/25/2020 0811 EDT Respiratory Rate 16 01/25/2020 08 EDT Oxygen Saturation 100% 01/25/2020 08 EDT Inhaled Oxygen Concentration - - Weight 65.8 kg (145 lb) 01/25/2020 08 EDT Height 158.8 cm (5' 2.5) 01/25/2020 08 EDT Body Mass Index 26.1 01/25/2020 08 EDT documented in this encounter Medications at Time of Discharge Medication Sig Dispensed Refills Start Date End Date ACETAMINOPHEN WITH CODEINE Take by mouth 2 0 (TYLENOL-CODEINE #3 ORAL) times daily. amitriptyline (ELAVIL) 25 mg Take 50 mg by mouth 0 tablet at bedtime as needed. ukjieeyktq-kuoempesrfzaq-urf Take 1 Tab by mouth 0 feine (FIORICET, ESGIC) every 8 hours as 50-325-40 mg per tablet needed. celecoxib (CELEBREX) 200 mg Take 1 Cap by mouth 60 Each 2 08/26/2012 capsuleIndications: 2 times daily. Take Arthralgia with a stomach med daily. clonAZEPAM (KLONOPIN) 1 mg Take 1 mg by mouth 0 tablet 3 times daily as needed. cyclobenzaprine (FLEXERIL) Take 10 mg by mouth 0 10 mg tablet 3 times daily as needed. duloxetine (CYMBALTA) 60 mg Take 60 mg by mouth 0 capsule daily. lisinopril-hydrochlorothiazi Take 1 Tab by mouth 0 de (PRINZIDE, ZESTORETIC) daily. 20-25 mg per tablet lorazepam (ATIVAN) 1 mg Take 1 mg by mouth 0 tablet as needed. meloxicam (MOBIC) 7.5 mg Take 7.5 mg by 0 tablet mouth as needed. metronidazole (FLAGYL) 500 Take 500 mg by 0 mg tablet mouth as needed. OLANZapine (ZYPREXA) 5 mg Take 2.5 mg by 0 tablet mouth every 4 hours as needed. omeprazole (PRILOSEC) 20 mg TAKE 1 CAPSULE BY 30 Cap 3 0 12/29/2012 capsule MOUTH DAILY FOR STOMACH pregabalin (LYRICA) 50 mg Take 50 mg by mouth 0 capsule twice a week. tramadol (ULTRAM) 50 mg Take 50 mg by mouth 0 tablet as needed. zolpidem (AMBIEN CR) 12.5 mg Take 12.5 mg by 0 CR tablet mouth daily. documented as of this encounter Discharge Disposition Disposition Code Departure Means Destination Home or Self Group Home documented in this encounter Progress Notes Kathy Soria, RN - 01/24/2020 1114 EDT Pt called for prescreen for procedure. Denies fever, SOB, or cough. Does have seasonal allergies, Covid-19 test result negative. Pt has quarantined since Covid-19 test. Discussed NPO prior to procedure. documented in this encounter Procedure Notes Tushar Urban MD - 01/25/2020 0949 EDTProcedure(s): ESOPHAGEAL MANOMETRY Esophageal manometry performed: normal motility. See Scans for full report. Tushar Urban MD documented in this encounter Plan of Treatment Not on filedocumented as of this encounter Procedures Procedure Name Priority Date/Time Associated Diagnosis Comme nts ENDOSCOPY REPORTS - 01/26/2020 9:02 EDT R esults for this SCANNED procedure are i n the results section. MANOMETRY, 01/25/2020 17:10 ESOPHAGUS EDT documented in this encounter Results ENDOSCOPY REPORTS - SCANNED (01/26/2020 9:02 EDT) Specimen Narrative This result has an attachment that is no t available. documented in this encounter Visit Diagnoses Not on filedocumented in this encounter Historical Medications This list may reflect changes made after this encounter. Medication Sig Dispensed Refills Start Date End Date OLANZapine (ZYPREXA) 5 mg Take 2.5 mg by mouth 0 tablet every 4 hours as needed. added in this encounter Care Teams Parts Technician Relationship Specialty Start Date End Date Lolis Moss MD PCP - General 01/25/20 [address] [place] [phone] documented as of this encounter
--- OUTSIDE RECORDS SUMMARY | 2022-03-18 11:27 | XMS_ITS | Encounter Summary ---
:1970 Author Organization [facility] Address [address] [place] [address] Care Team Providers Name Role Phone Polly Schmid NP Primary Care Provider Unavailable Reason for Visit Reason Onset Date Comments Other 08/25/2012 npv info Encounter Details Date Type Department Care Team Description 08/25/2012 Telephone [facility] Eric Huang Chi, MD Other (npv info) Rheumatology & Immunology [address] [place] [address], [address] [place], [place] [id number] [place] [address] [phone] (Wo rk) Social History Tobacco Use Types Packs/Day Years Used Date Never Assessed Sex Assigned at Date Recorded Not on file documented as of this encounter Miscellaneous Notes Telephone Encounter - Coreen Olmos RN - 08/25/2012 1134 EST Spoke to Radiology dept at [facility] and they will import studies onto the PACS system which will have the reports attached. elephone Encounter - Caitlin Iglesias - 08/25/2012 1104 EST [facility] call [facility] as they need to know what to send over for the pts npv tomorrow 08/26/12. documented in this encounter Plan of Treatment Not on filedocumented as of this encounter Visit Diagnoses Not on filedocumented in this encounter Care Teams Business Systems Architect Relationship Specialty Start Date End Date Polly Schmid NP PCP - General 04/24/09 02/25/14 documented as of this encounter
--- OUTSIDE RECORDS SUMMARY | 2022-03-18 11:27 | XMS_ITS | Encounter Summary ---
:1970 Author Organization [facility] Address [address] [place] [address] Care Team Providers Name Role Phone Lolis Moss MD Primary Care Provider Encounter Details Date Type Department Care Team Description 01/25/2020 Hospital Encounter [facility] Tushar Urban, [facility] [address] [facility] [address] [place] [address] [address], [place] [phone] (Wo rk) Social History Tobacco Use Types [...] 01/25/2020 08 EDT Oxygen Saturation 100% 01/25/2020 0811 EDT Inhaled Oxygen Concentration - - Weight 65.8 kg (145 lb) 01/25/2020 08 EDT Height 158.8 cm (5' 2.5) 01/25/2020 0811 EDT Body Mass Index 26.1 01/25/2020 0811 EDT documented in this encounter Medications at Time of Discharge Medication Sig Dispensed Refills Start Date End Date ACETAMINOPHEN WITH CODEINE Take by mouth 2 0 (TYLENOL-CODEINE #3 ORAL) times daily. amitriptyline (ELAVIL) 25 mg Take 50 mg by mouth 0 tablet at bedtime as needed. pvylljcnqs-gdoiwmolwgdew-biq Take 1 Tab by mouth 0 feine [...] Code Departure Means Destination Home or Self Residential documented in this encounter Progress Notes Kathy Soria RN - 01/24/2020 1114 EDT Pt called [...] needed. added in this encounter Care Teams Custom Garment Designer Relationship Specialty Start Date End Date Lolis Moss MD PCP - General 01/25/20 [address] [place] [phone] documented as of this encounter
--- OUTSIDE RECORDS SUMMARY | 2022-03-18 11:27 | XMS_ITS | Encounter Summary ---
:1970 Author Organization [facility] Address [address] [place] [address] Care Team Providers Name Role Phone Polly Schmid NP Primary Care Provider Unavailable Encounter Details Date Type Department Care Team Description 08/26/2012 Orders Only [facility] Eric Huang Chi, MD Myalgia (Primary Dx); Rheumatology & [address] [facility] Immun[facility] - [address], [address] [place], [place] [address] [place] [address] [phone] (Wo rk) Social History Tobacco Use [...] Name Priority Date/Time Associated Diagnosis Comme nts OUTPATIENT ADD-ON Routine 08/26/2012 22:54 Myalgia Results for this EST Transaminitis procedure are in the results section. documented in this encounter Results OUTPATIENT ADD-ON (08/26/2012 22:54 EST) Pathologist Sig nature Tests to be added CPK [facility] Diagnosis Code SAME [facility] Number for problems 7Comment: 4574 [facility] Accession number [id number] [facility] Acknowledge ABP Done [facility] Specimen Performing Organization Address City/State/ZIP Code Phon e Number [facility] [address] [place] [address] SERVICES [facility] [address] [place] [address] documented in this encounter Visit Diagnoses Diagnosis Myalgia - Primary Mylagia and myositis, unspecified Transaminitis Nonspecific elevation of levels of trans aminase or lactic acid dehydrogenase (LDH) documented in this encounter Care Teams Buying Intern Relationship Specialty Start Date End Date Polly Schmid NP PCP - General 04/24/09 02/25/14 documented as of this encounter
--- OUTSIDE RECORDS SUMMARY | 2022-03-18 11:27 | XMS_ITS | Encounter Summary ---
:1970 Author Organization [facility] Address [address] [place] [address] Care Team Providers Name Role Phone Polly Schmid NP Primary Care Provider Unavailable Encounter Details Date Type Department Care Team Description 08/26/2012 Phlebotomy Only [facility] Cook Vacuum Kettle, Wendy tamayo; - [facility] Outpatient Elevated sed rate; [address] [facility] Hepatitis; [place], [place] Psoriasis [id number] Social History Tobacco Use Types Packs/Day Years [...] Procedure Name Priority Date/Time Associated Comments Diagnosis CCP ANTIBODIES Routine 08/26/2012 15:02 Arthralgia Results for this EST Elevated sed rate procedure are in the results section. ARTHRITIS 1 Routine 08/26/2012 15:02 Arthralgia Results for this EST procedure are i n the results section. HLA B27 SCREEN, DNA Routine 08/26/2012 15:02 Psoriasis Resu lts for this EST procedure are i n the results section. DIFFERENTIAL Routine 08/26/2012 15:02 Results for this EST procedure are i n the results section. SED RATE Routine 08/26/2012 15:02 Arthralgia Results for this EST Elevated sed rate procedure are in the results section. COMPLETE BLOOD COUNT Routine 08/26/2012 15:02 Res ults for this EST procedure are i n the results section. COMPLETE BLOOD COUNT Routine 08/26/2012 15:02 Arthralgia AND DIFFERENTIAL EST C REACTIVE PROTEIN Routine 08/26/2012 15:02 Arthralgia Results for this EST Elevated sed rate procedure are in the results section. COMPREHENSIVE Routine 08/26/2012 15:02 Hepatitis Results fo r this METABOLIC PANEL (CMP) EST proced ure are in the results section. documented in this encounter Results (ABNORMAL) DIFFERENTIAL (08/26/2012 15:02 EST) Pathologist Sig nature Neutrophils 42.0 (L) 45.5 - 79.7 % [facility] Lymphocytes 29.2 15.0 - 46.8 % [facility] Monocytes 7.0 1.8 - 12.0 % [facility] Eosinophils 20.2 (H) 0.6 - 6.9 % [facility] Basophils 1.6 (H) 0.2 - 1.4 % [facility] ABS Neutrophils 3.29 2.20 - 8.85 K/cmm [facility] ABS Lymphs 2.29 1.09 - 3.30 K/cmm [facility] ABS Monocytes 0.55 0.1 - 0.8 K/cmm [facility] ABS Eosinophils 1.58 (H) 0.03 - 0.61 K/cmm [facility] ABS Basophils 0.13 (H) 0.01 - 0.11 K/cmm [facility] Type of Diff: Automated [facility] Specimen Performing Organization Address City/State/ZIP Code Phon e Number [facility] [address] [place] [address] SERVICES [facility] [address] [place] [address] (ABNORMAL) HEMAGRAM (08/26/2012 15:02 EST) Pathologist Sig nature WBC 7.83 4.0 - 12.4 K/cmm [facility] RBC 3.64 (L) 3.86 - 5.04 M/cmm [facility] Hemoglobin 12.1 11.6 - 15.2 gm/dl [facility] HCT 35.4 34.9 - 44.4 % [facility] MCV 97 81 - 98 fl [facility] MCH 33.2 26.7 - 33.3 pg [facility] MCHC 34.2 32.1 - 35.9 gm/dl [facility] PLT 319 141 - 320 K/cmm [facility] RDW-CV 13.1 11.7 - 14.6 % [facility] Specimen Performing Organization Address City/[facility]/ZIP Code Phon e Number [facility] [address] [place] [address] SERVICES [facility] [address] [place] [address] HLA B27 (08/26/2012 15:02 EST) Pathologist Sig nature HLA B27 HLA B27 not [facility] identifiedComment: Testing performed by Complement Dependent Cytotoxicity Technique (CDC) Specimen Blood specimen (specimen) Performing Organization Address City/[facility]/ZIP Code Phon e Number [facility] [address] [place] [address] SERVICES [facility] [address] [place] [id number] CCP ANTIBODIES (08/26/2012 15:02 EST) Pathologist Sig nature CCP Antibodies 0.59 <5.01 U/ml [facility] Specimen Performing Organization Address [facility]/ZIP Code Phon e Number [facility] [address] [place] [address] SERVICES [facility] [address] [place] [address] (ABNORMAL) COMPREHENSIVE METABOLIC PANEL (CMP) (08/26/2012 15:02 EST) Pathologist Sig nature Potassium 3.9 3.5 - 5.0 mEq/L [facility] Sodium 140 136 - 145 mEq/L [facility] Chloride 104 96 - 110 mEq/L [facility] CO2 26 24 - 32 mEq/L [facility] Total Alkaline 109 38 - 126 U/L [facility] Phosphatase Bilirubin, Total <0.5 0.2 - 1.3 mg/dl [facility] AST 78 (H) 15 - 46 U/L [facility] ALT 94 (H) 9 - 52 U/L [facility] Albumin 4.3 3.4 - 4.9 g/dl [facility] Total Protein 6.9 6.5 - 8.3 g/dl [facility] Creatinine 0.74 0.52 - 1.04 [facility] mg/dl GFR, Calculated >60 >60 [facility] ml/min/1.73m2 BUN 10 10 - 26 mg/dl [facility] Calcium 9.6 8.5 - 10.5 [facility] mg/dl Calculated Calcium 9.7 8.5 - 10.5 [facility] mg/dl Glucose, Serum 93 70 - 100 mg/dl [facility] Fasting? Unknown [facility] Specimen Blood specimen (specimen) Performing Organization Address [facility]/ZIP Code Phon e Number [facility] [address] [place] [address] SERVICES [facility] [address] [place] [address] C-REACTIVE PROTEIN (08/26/2012 15:02 EST) Pathologist Sig nature C-Reactive Protein <0.7 <1.0 mg/dl [facility] Specimen Blood specimen (specimen) Performing Organization Address [facility]/ZIP [facility] Phon e Number [facility] [address] [place] [address] SERVICES [facility] [address] [place] [address] SED. RATE:WESTERGREN (08/26/2012 15:02 EST) Pathologist Sig nature Sed. Rate Westergren 10 0 - 20 mm/hr [facility] Specimen Blood specimen (specimen) Performing Organization Address [facility] Phon e Number [facility] [address] [place] [address] SERVICES [facility] [address] [place] [address] ARTHRITIS 1 (08/26/2012 15:02 EST) Anti Nuclear Ab Positive at 40 0 - 40 Dils [facility] dils, titer to follow. Rheumatoid Factor <20 <20 IU/ml [facility] Specimen Blood specimen (specimen) Performing Organization Address [facility] Phon e Number [facility] [address] [place] [address] SERVICES [facility] [address] [place] [address] documented in this encounter Visit Diagnoses Diagnosis Arthralgia Pain in joint, site unspecified Elevated sed rate Elevated sedimentation rate Hepatitis Hepatitis, unspecified Psoriasis Other psoriasis documented in this encounter Care Teams Tumor Registrar Relationship Specialty Start Date End Date Polly Schmid NP PCP - General 04/24/09 02/25/14 documented as of this encounter
--- OUTSIDE RECORDS SUMMARY | 2022-03-18 11:27 | XMS_ITS | Encounter Summary ---
:[address] [facility] Address [address] [place] [address] Care Team Providers Name Role Phone Polly Schmid NP Primary Care Provider Unavailable Reason for Visit Reason Comments New Patient Visit Patient is being seen at the request of Polly Schmid and Charmaine Ayala for evaluation of diffuse joint pains, fatigue. Encounter Details Date Type Department Care Team Description 08/26/2012 Office Visit [facility] Eric Huang Chi, MD Arthralgia (Primary Dx); Rheumatology & [address] [place] [address] Elevated se d rate; Immunology - [facility] Fatigue; [facility] Psoriasis; [address] [place] [address] Pavilion, Level 5 Hepatitis; [place], [place] [id number] [place] [address] History of peptic ulcer [phone] (Wo rk) Social History Tobacco Use Types Packs/Day Years Used Date Current Every Day Smoker Cigarettes 0.5 2 Smokeless Tobacco: Never Used Alcohol Use Standard Drinks/Week Comments No 0 (1 standard drink = 0.6 oz pure alcoho l) Sex Assigned at Date Recorded Not on file documented as of this encounter Last Filed Vital Signs Vital Sign Reading Time Taken Comments Blood Pressure 120/78 08/26/2012 1322 EST Pulse 68 08/26/2012 1322 EST Temperature - - Respiratory Rate - - Oxygen Saturation - - Inhaled Oxygen Concentration - - Weight 65.8 kg (145 lb) 08/26/2012 1322 EST Height 158.8 cm (5' 2.5) 08/26/2012 1322 EST Body Mass Index 26.1 08/26/2012 1322 EST documented in this encounter Patient Instructions Patient InstructionsEric Huang Chi, MD - 08/26/2012 14:24 EST Try taking Celebrex daily for the joint pains. Take prilosec (omeprazole) daily to protect the stomach. Do not take ibuprofen while on Celebrex. Resume regular low impact exercise. documented in this encounter Ordered Prescriptions Prescription Sig Dispensed Refills Start Date End Date celecoxib (CELEBREX) 200 Take 1 Cap by mouth 60 Each 2 mg capsuleIndications: 2 times daily. Take Arthralgia with a stomach med daily. omeprazole (PRILOSEC) 20 Take 1 Cap by mouth 30 Cap 3 12/29/2012 mg capsuleIndications: daily. For stomach. History of peptic ulcer documented in this encounter Progress Notes Eric Huang Chi, MD - 08/26/2012 1319 EST Images from the original note were not included. Subjective: Patient ID: Lisseth Boone is an 42 y.o. female. Chief Complaint Patient presents with ??? New Patient Visit Patient is being seen at the request of Polly Schmid and Charmaine Ayala for evaluation of diffusejoint pains, fatigue. HPI Comments: Dx with fibromyalgia 4 yrs ago with diffuse jt pains and fatigue after moving here from [place]. Seen at [facility]- prescribed hydrocodone, cymbalta for her chronic pains. Father had RA andso patient has been concerned that she may be developing rheumatoid arthritis. Has had lymphadenopathy on the posterior neck and she underwent biopsy of a lymph node on posterior neck- results unknown;nodes have been present for 2 mos. Told she may have RA due to elevated sed rate. Gets rash around the the ears due to history of psoriasis. Had hepatitis over xmas- has had chronic stomach issues. Underwent cholecystectomy 2 years ago without significant improvement in stomach discomfort. Has been drinking aloe vera juice for her stomach. Joints that bother the pt: Neck: Has pain worsened by cold temperatures. Low back: Chronic low back pains; prevents her from jogging Shoulders: Ache at end of day.Had L arm pain and L hand spasm several weeks ago- resolved after taking tramadol, meloxicam for 48 hours. Elbows: achey Wrists: achey Fingers: Painful in the cold Hips: Pains laterally and in low back. Knees: painful midday and end of the day Ankles: Pains when walking and skating Feet/ toes: No Joints swelling- R elbow in the fall 2011 AM stiffness- for > 1hr- for several yrs. Pain at night- Sometimes in upper back, neck, hips, knees. Medications tried and failed- Tramadol, meloxicam, cymbalta, lyrica. Maintaining on Cymbalta for hermood Medications that helped- Vicodin, tylenol with codeine Physical activity/ exercise- Past yoga; currently trying to stretch intermittently. 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 Moved to [place] from [place] in 2007- which is when the jt pains started. Patient Active Problem List Diagnoses ??? Psoriasis ??? Arthralgia ??? Elevated LFTs ??? Depression Past Medical History Diagnosis Date ??? Hepatitis July 2012 Presumed viral ??? Gastric ulcer 2008 Diagnosed by EGD-showing distal gastritis, duodenitis, gastric ulcers ??? Hypertension Past Surgical History Procedure Date ??? Cholecystectomy 2009 ??? Ovarian cyst surgery 2006 drained ??? Tubal ligation 2006 ??? Lymph node biopsy Family History Problem Relation Age of Onset ??? Psoriasis Father ??? Psoriasis Brother ??? Arthritis Father ? Psoriatic versus rheumatoid Social History Substance Use Topics ??? Smoking status: Current Everyday Smoker -- 0.5 packs/day for 2 years Types: Cigarettes ??? Smokeless tobacco: Never Used ??? Alcohol Use: No Outpatient Prescriptions Marked as Taking for the 08/26/12 encounter (Office Visit) with Eric Huang Chi, MD Medication Sig Dispense Refill ??? gbdzontfzz-qtbdmnoytqmoe-egllfcuk (FIORICET, ESGIC) 50-325-40 mg per tablet Take 1 Tab by mouth every 8 hours as needed. ??? lisinopril-hydrochlorothiazide (PRINZIDE, ZESTORETIC) 20-25 mg per tablet Take 1 Tab by mouth daily. ??? amitriptyline (ELAVIL) 25 mg tablet Take 50 mg by mouth at bedtime as needed. ??? ACETAMINOPHEN WITH CODEINE (TYLENOL-CODEINE #3 ORAL) Take by mouth 2 times daily. ??? duloxetine (CYMBALTA) 60 mg capsule Take 60 mg by mouth daily. ??? metronidazole (FLAGYL) 500 mg tablet Take 500 mg by mouth as needed. ??? cyclobenzaprine (FLEXERIL) 10 mg tablet Take 10 mg by mouth 3 times daily as needed. ??? lorazepam (ATIVAN) 1 mg tablet Take 1 mg by mouth as needed. ??? clonAZEPAM (KLONOPIN) 1 mg tablet Take 1 mg by mouth 3 times daily as needed. ??? tramadol (ULTRAM) 50 mg tablet Take 50 mg by mouth as needed. ??? meloxicam (MOBIC) 7.5 mg tablet Take 7.5 mg by mouth as needed. ??? pregabalin (LYRICA) 50 mg capsule Take 50 mg by mouth twice a week. ??? zolpidem (AMBIEN CR) 12.5 mg CR tablet Take 12.5 mg by mouth daily. No Known Allergies Review of Systems Constitutional: Positive for fever (with liver flarein July-no recurrence) and malaise/fatigue. Negative for chills, weight loss and diaphoresis. Gained over past 4 yrs HENT: Positive for neck pain. + oral ulcers- on tongue No dry mouth Eyes: Negative for pain. No dry eyes Respiratory: Negative for cough and shortness of breath. Cardiovascular: Positive for chest pain. Negative for palpitations. No raynauds Gastrointestinal: Positive for heartburn and constipation. Negative for nausea, abdominal pain, diarrhea and blood in stool. Past ulcers- not on stomach med now. Genitourinary: Negative for dysuria, frequency and hematuria. Past UTI's- takes Flagyl with intercourse Musculoskeletal: Positive for back pain and joint pain. Negative for myalgias. Skin: Positive for rash (on head, scalp due to psoriasis). Negative for itching. No sun sensitive rashes Psoriasis- since teens Neurological: Positive for tingling (one episode at left arm; left hand), loss of consciousness (summer- 2nd to dehydration) and headaches (migraines). Negative for focal weakness. Endo/Heme/Allergies: Does not bruise/bleed easily. Psychiatric/Behavioral: Positive for depression (did not know mom; mood swings in her 20s.). The patient has insomnia. The patient is not nervous/anxious. All other systems reviewed and are negative. - See HPI Objective: BP 120/78 Pulse 68 Ht 158.8 cm (62.5) Wt 65.772 kg (145 lb) BMI 26.10 kg/m2 Physical Exam Vitals reviewed. Constitutional: She is oriented to person, place, and time. She appears well- nourished. No distress. Mildly depressed appearing young female HENT: Head: Normocephalic and atraumatic. Mouth/Throat: Oropharynx is clear and moist. Eyes: Conjunctivae and EOM are normal. Pupils are equal, round, and reactive to light. Neck: No thyromegaly present. Cardiovascular: Normal rate, regular rhythm and normal heart sounds. No murmur heard. Pulmonary/Chest: Breath sounds normal. No respiratory distress. She has no wheezes. She has no rales. Abdominal: Soft. There is no hepatomegaly. There is no tenderness. Musculoskeletal: A complete msk exam including bilateral upper and lower extremities was done and was normal except for abnormal findings shown on homonculus. Lymphadenopathy: She has cervical adenopathy (Small shotty posterior cervical nodes). Neurological: She is alert and oriented to person, place, and time. No cranial nerve deficit. Gait normal. Skin: Rash (Erythematous maculopapular, dry slightly scaly lesions behind both ears. No obvious nailpitting, though she has fingernail congolese on.) noted. Psychiatric: Her behavior is normal. She exhibits a depressed mood. 30 pages of outside notes were reviewed: Significant labs from [facility] noted were- 10/2011 CMP normal except total protein 8.5, albumin 5.1 TSH 2.1 05/2012 CHARLES 40 CMP normal ESR 40 (normal less than 30) 07/2012 Hep B surface antigen, hep A. IgM, hep B core IgM, hep C antibody-all negative. PTT 28 Rheumatoid factor negative 08/10/2012 WBC 5.3, hemoglobin 12.4, hematocrit 35.1, platelets 312 CMP: Alkaline phosphatase 266, ALT 557, AST 623 Lipase 31 UA negative except positive for urobilinogen 08/11/2012 Albumin 2.7, alkaline phosphatase 154, ALT 276, AST 169 07/04/2012 CT angiogram of the head ([facility])- normal, no evidence for aneurysm formation. Assessment: Plan: Lisseth was seen today for new patient visit. Diagnoses and associated orders for this visit: Arthralgia Elevated sed rate Fatigue Psoriasis History of diffuse joint pains, worse since moving from [place] to [place] 4 years ago and associated with chronic fatigue. Psoriasis has also worsened around the scalp due to decreased ultraviolet exposure while in [place]. No active inflammatory arthritis seen on exam but she may have early psoriatic arthropathy as a cause for her systemic and musculoskeletal symptoms- will check HLA-B27 tissue type. Psoriasis is an autoimmune cutaneous condition that can be associated with arthritis. Will recheck inflammatory and rheumatoid arthritis markers (since her father had RA versus psoriaticarthritis). Will have her try the Garcia 2 inhibitor Celebrex which is relatively safer for the stomach than standard NSAIDs. - Arthritis 1; Future - Sed. Rate:Westergren; Future - C-Reactive Protein; Future - Hemagram & Differential; Future - CCP Antibodies; Future - celecoxib (CELEBREX) 200 mg capsule; Take 1 Cap by mouth 2 times daily. Take with a stomach med daily. - HLA B27; Future Hepatitis Episode of transaminitis after 2011- etiology unclear. Recheck chemistries since we may consider methotrexate in the future as treatment for her joint pains and psoriasis. - Comprehensive Metabolic Panel (CMP); Future History of peptic ulcer Past documented gastric ulcers; will add proton pump inhibitor to her regimen while on the NSAID. - omeprazole (PRILOSEC) 20 mg capsule; Take 1 Cap by mouth daily. For stomach. Barriers to learning identified: No Patient verbalizes understanding and agrees with plan Yes F/u 4 mos. Copy of this note will be sent to PCP: RIGOBERTO Muhammad Chi, Chi, MD documented in this encounter Plan of Treatment Not on filedocumented as of this encounter Results HLA B27 (08/26/2012 15:02 EST) Pathologist Sig nature HLA B27 HLA B27 not [facility] identifiedComment: Testing performed by Complement Dependent Cytotoxicity Technique (CDC) Specimen Blood specimen (specimen) Performing Organization Address City/State/ZIP Code Phon e Number [facility] [address] [place] [address] SERVICES [facility] [address] [place] [address] CCP ANTIBODIES (08/26/2012 15:02 EST) Pathologist Sig nature CCP Antibodies 0.59 <5.01 U/ml [facility] Specimen Performing Organization Address City/[facility] Phon e Number [facility] [address] [place] [address] SERVICES [facility] [address] [place] [address] (ABNORMAL) COMPREHENSIVE METABOLIC PANEL (CMP) (08/26/2012 15:02 [...] Bilirubin, Total <0.5 0.2 - 1.3 mg/dl [facility] AST 78 (H) 15 - [...] Specimen Blood specimen (specimen) Performing Organization Address City/[facility]/ZIP Code Phon e Number [facility] [address] [place] [address] SERVICES [facility] [address] [place] [address] C-REACTIVE PROTEIN (08/26/2012 15:02 EST) Pathologist Sig nature C-Reactive Protein <0.7 <1.0 mg/dl [facility] Specimen Blood specimen (specimen) Performing Organization Address City/[facility]/ZIP Code Phon e Number [facility] [address] [place] [address] SERVICES [facility] [address] [place] [address] SED. RATE:WESTERGREN (08/26/2012 15:02 EST) Pathologist Sig nature Sed. Rate Westergren 10 0 - 20 mm/hr [facility] Specimen Blood specimen (specimen) Performing Organization Address City/[facility]/ZIP Code Phon e Number [facility] [address] [place] [address] SERVICES [facility] [address] [place] [address] ARTHRITIS 1 (08/26/2012 15:02 EST) Anti Nuclear Ab Positive at 40 0 - 40 Dils [facility] dils, titer to follow. Rheumatoid Factor <20 <20 IU/ml [facility] Specimen Blood specimen (specimen) Performing Organization Address [facility]/ZIP [facility] Phon e Number [facility] [address] [place] [address] SERVICES [facility] [address] [place] [address] documented in this encounter Visit Diagnoses Diagnosis Arthralgia - Primary Pain in joint, site unspecified Elevated sed rate Elevated sedimentation rate Fatigue Other malaise and fatigue Psoriasis Other psoriasis Hepatitis Hepatitis, unspecified History of peptic ulcer Personal history of peptic ulcer disease documented in this encounter Historical Medications This list may reflect changes made after this encounter. Medication Sig Dispensed Refills Start Date End Date zolpidem (AMBIEN CR) 12.5 mg Take 12.5 mg by 0 CR tablet mouth daily. pregabalin (LYRICA) 50 mg Take 50 mg by mouth 0 capsule twice a week. meloxicam (MOBIC) 7.5 mg Take 7.5 mg by 0 tablet mouth as needed. tramadol (ULTRAM) 50 mg Take 50 mg by mouth 0 tablet as needed. clonAZEPAM (KLONOPIN) 1 mg Take 1 mg by mouth 0 tablet 3 times daily as needed. lorazepam (ATIVAN) 1 mg Take 1 mg by mouth 0 tablet as needed. cyclobenzaprine (FLEXERIL) Take 10 mg by mouth 0 10 mg tablet 3 times daily as needed. metronidazole (FLAGYL) 500 Take 500 mg by 0 mg tablet mouth as needed. duloxetine (CYMBALTA) 60 mg Take 60 mg by mouth 0 capsule daily. ACETAMINOPHEN WITH CODEINE Take by mouth 2 0 (TYLENOL-CODEINE #3 ORAL) times daily. amitriptyline (ELAVIL) 25 mg Take 50 mg by mouth 0 tablet at bedtime as needed. lisinopril-hydrochlorothiazi Take 1 Tab by mouth 0 de (PRINZIDE, ZESTORETIC) daily. 20-25 mg per tablet qgoymfhgif-gfmfzrmkujdoz-rca Take 1 Tab by mouth 0 feine (FIORICET, ESGIC) every 8 hours as 50-325-40 mg per tablet needed. added in this encounter Care Teams Assistant Plant Controller Relationship Specialty Start Date End Date Polly Schmid NP PCP - General 04/24/09 02/25/14 documented as of this encounter
--- OUTSIDE RECORDS SUMMARY | 2022-03-18 11:27 | XMS_ITS | Encounter Summary ---
:1970 Author Organization [facility] Address [address] [place] [address] Care Team Providers Name Role Phone None, Provider Primary Care Provider Unavailable Lolis Moss MD Primary Care Provider Encounter Details Date Type Department Care Team Description 01/22/2020 Lab Requisition [facility] Outr Resulting Lab, Pathology & Laboratory Provider [facility] [address] [place] [address] Social History Tobacco Use Types Packs/Day Years [...] Name Priority Date/Time Associated Diagnosis Comme nts COVID-19 TEST UVC Today 01/22/2020 14:10 LAB PCR EDT COVID-19 TESTING Routine 01/22/2020 14:10 Results for this EDT procedure are i n the results section. documented in this encounter Results COVID-19 TEST [facility] PCR (01/22/2020 14:10 EDT) Specimen Swab - Entire nasopharynx (body structur e) Performing Organization Address City/State/ZIP Code Phon e Number [facility] [address] [place] [address] SERVICES COVID-19 TESTING (01/22/2020 14:10 EDT) COVID-19 rt-PCR Negative Negative [facility] Result Comment: [facility] This test has not been FDA c leared or approved. This test has been authorized by FDA under an EUA for use by authorized laboratories. This test has been authorized only for detection of nucleic acid fro SERVICES m 2019-nCoV, not for any oth er viruses or pathogens. This test is only authorized for the duration of the declaration that circumstances exist justifying the authorization of emergency use of in vitro d iagnostic tests for detectio n and/or diagnosis of 2019-nCoV under section 564(b)(1) of Act, 21 U.S.C ?? 360bbb-3(b) (1), unless the authorization is terminated or revoked sooner. Negative results do not prec lude 2019-nCoV infection and should not be used as the sole basis for treatment or other patient management decisions. Negative results must be combined with clinical observa tions, patient history, and epidemiological informatio n. Performed on the [employer]her Fusion instrument Performing Lab Check [facility] Lab [facility] SERVICES Specimen Swab - Entire nasopharynx (body structur e) Performing Organization Address City/State/ZIP Code Phon e Number [facility] [address] [place] [address] SERVICES documented in this encounter Visit Diagnoses Not on filedocumented in this encounter Care Teams Grocery Shopper Relationship Specialty Start Date End Date None, Provider PCP - General 01/02/20 01/24/20 Lolis Moss MD PCP - General 01/25/20 [address] [place] [phone] documented as of this encounter
--- OUTSIDE RECORDS SUMMARY | 2022-03-18 11:27 | XMS_ITS | Encounter Summary ---
:1970 Author Organization [facility] Address [address] [place] [address] Care Team Providers Name Role Phone Unavailable Primary Care Provider Unavailable Encounter Details Date Type Department Care Team Description 06/14/2008 [facility] Shayla Zabala Converted Visit Maple conversion R, MULTIMEDIA PROGRAMMER (Maple) [address] [facility] [address] [place] [address] [phone] [place] [phone] (Wo rk) Social History Tobacco Use Types Packs/Day Years Used Date Never Assessed Sex Assigned at Date Recorded Not on file documented as of this encounter Plan of Treatment Not on filedocumented as of this encounter Procedures Procedure Name Priority Date/Time Associated Comments Diagnosis HPV DETECTION, HIGH Routine 06/14/2008 14:54 Resu lts for this RISK TYPES EDT procedure are i n the results section. CYTOPATHOLOGY Routine 06/14/2008 0:00 Results for this EDT procedure are i n the results section. documented in this encounter Results HUMAN PAPILLOMA VIRUS DNA TEST (06/14/2008 14:54 EDT) Specimen Description Cervix, ThinPrep [facility] Result Positive for one or more of HPV types 16,18,31,33,35,39,45,51,52,56,58,59, or 68. These [facility] CASTROEN high/intermediate risk HPV t ypes are associated with dysplasia and some cervical cancers. LAB Report Status Final [facility] 06/28/2008 LAB Specimen Performing Organization Address City/State/ZIP Code Phon e Number [facility] [address] [place] [address] SERVICES [facility] [address] [place] [address] CYTOPATHOLOGY (06/14/2008 0:00 EDT) Pathology Report: CYTOPATHOLOGY REPORT ? [facility] DAO EN ? LAB Reports generated via electr onic interface contain original data; ? however they are lacking the format of the original report. ? Caution should be taken when reading/interpreting unformatted reports. ? Name: ? CAROLINA ARAGON ? Accession #: ? [id number] ? : ? 1970 (Age: 37) ??F ?Collect Date: ? 06/14/2008 ? Location: ? [facility] ? Receive Date: ? 06/18/2008 ? Provider: ?SHAYLA R SHERWIN MULTIMEDIA PROGRAMMER ? Copy to: ? Specimen/Source: ? Pap Test, Vagina, ThinPrep Imaging System with manual ?? evaluation ? Last Menstrual Period: ? 10/16/08 ? Previous Gynecologic Patholo gy: ? HPV ? Treatment History: ? Cone biopsy ? Other: ? HPVA - HPV testing requested if ASC-US on the current ThinPrep Pap test. ? SPECIMEN ADEQUACY ? Satisfactory for Eval uation ? - assessment of transformati on zone component not applicable ( e.g. atrophy, ? vaginal sample, hysterectomy ) ? GENERAL CATEGORIZATION ? Epithelial Cell Abnor mality ? INTERPRETATION ? Squamous Cell Abnorma lity - Atypical squamous cells, undetermined ? significance (ASC-US). ? EDUCATIONAL NOTES/RECOMMENDA TIONS ? FA recommends jacob wing the 2006 Consensus Guidelines for the Management of Women with Abnormal Cervi ksenia Cancer Screening Tests (JLGTD, ? 2007;11(4):201-222). ??Conse nsus guidelines are available online at ? www.ASCCP.org. ? Document reviewed and electr onically signed by: ? Kishore Lobo MD ? Report Date: ??11/06/ 2008 11:25 ? End of Report ? Specimen Performing Organization Address City/State/ZIP Code Phon e Number [facility] [address] [place] [address] SERVICES [facility] [address] [place] [address] documented in this encounter Visit Diagnoses Not on filedocumented in this encounter
--- OUTSIDE RECORDS SUMMARY | 2022-03-18 11:27 | XMS_ITS | Encounter Summary ---
:1970 Author Organization [facility] [place] [address] Care Team Providers Name Role Phone Travis Torres MD Primary Care Provider Reason for Visit Reason Comments Medication Refill Encounter Details Date Type Department Care Team Description 01/20/2022 Refill Neurology at [facility] Cameron Alves Ch ron migraine without Road aura, with intractable [address] [facility] migraine, so stated, [place] [address] with status migrainosus [phone] [place], [place] [address] (Wo rk) Social History Tobacco [...] 04/14/2022 Office Visit Neurology Cameron Alves MD [facility] [place] [address] (Wo rk) documented as of [...] migrainosus documented in this encounter Care Teams Valve Assembler Relationship Specialty Start Date End Date Travis Torres MD PCP - General Family Medicine 01/09/22 [address] [place] [address] documented as of this encounter
--- OUTSIDE RECORDS SUMMARY | 2022-03-18 11:27 | XMS_ITS | Encounter Summary ---
:1970 Author Organization [facility] Address [address] [place] [address] Care Team Providers Name Role Phone Polly Schmid NP Primary Care Provider Unavailable Encounter Details Date Type Department Care Team Description 08/26/2012 Results Only [facility] Eric Huang Chi, MD Rheumatology & Immunology [address] [place] [address], [address] [place], [place] [address] [place] [phone] (Wo rk) Social History Tobacco Use Types [...] Name Priority Date/Time Associated Diagnosis Comme nts SMEAR REVIEW Routine 08/26/2012 15:02 EST Results for this procedure are i n the results section . CHARLES TITER Routine 08/26/2012 15:02 EST Results for this procedure are i n the results section . CK Routine 08/26/2012 15:02 EST Results for this procedure are i n the results section . documented in this encounter Results (ABNORMAL) CHARLES TITER (08/26/2012 15:02 EST) Pathologist Sig nature CHARLES Titer 80 (H)Comment: Diffuse 0 - 40 dils [facility] and speckled CHARLES patterns. Specimen Performing Organization Address City/State/ZIP Code Phon e Number [facility] [address] [place] [address] SERVICES [facility] [address] [place] [address] CK (08/26/2012 15:02 EST) Pathologist Sig nature CK 37 30 - 135 U/L [facility] Specimen Performing Organization Address City/[facility]/ZIP Code Phon e Number [facility] [address] [place] [address] SERVICES [facility] [address] [place] [address] SMEAR REVIEW (08/26/2012 15:02 EST) Smear scan only: Slide was examined by [facility] a technologist to verify the WBC and/or platelet count. Specimen Performing Organization Address [facility] Phon e Number [facility] [address] [place] [address] SERVICES [facility] [address] [place] [address] documented in this encounter Visit Diagnoses Not on filedocumented in this encounter Care Teams Inclusion Internship Relationship Specialty Start Date End Date Polly Schmid NP PCP - General 04/24/09 02/25/14 documented as of this encounter
--- OUTSIDE RECORDS SUMMARY | 2022-03-18 11:27 | XMS_ITS | Clinical Summary ---
:1970 Author Organization [facility] Address [address] [place] [address] Care Team Providers Name Role Phone Lolis Moss MD Primary Care Provider Allergies No known active allergies Medications Medication Sig Dispensed Refills Start Date End Date Status butalbital-acetaminophen Take 1 Tab by 0 Active -caffeine (FIORICET, mouth every 8 ESGIC) 50-325-40 mg per hours as needed. tablet lisinopril-hydrochloroth Take 1 Tab by 0 Active iazide (PRINZIDE, mouth daily. ZESTORETIC) 20-25 mg per tablet amitriptyline (ELAVIL) Take 50 mg by 0 Active 25 mg tablet mouth at bedtime as needed. ACETAMINOPHEN WITH Take by mouth 2 0 Active CODEINE (TYLENOL-CODEINE times daily. #3 ORAL) duloxetine (CYMBALTA) 60 Take 60 mg by 0 Active mg capsule mouth daily. metronidazole (FLAGYL) Take 500 mg by 0 Active 500 mg tablet mouth as needed. cyclobenzaprine Take 10 mg by 0 Active (FLEXERIL) 10 mg tablet mouth 3 times daily as needed. lorazepam (ATIVAN) 1 mg Take 1 mg by 0 Active tablet mouth as needed. clonAZEPAM (KLONOPIN) 1 Take 1 mg by 0 Active mg tablet mouth 3 times daily as needed. tramadol (ULTRAM) 50 mg Take 50 mg by 0 Active tablet mouth as needed. meloxicam (MOBIC) 7.5 mg Take 7.5 mg by 0 Active tablet mouth as needed. pregabalin (LYRICA) 50 Take 50 mg by 0 Active mg capsule mouth twice a week. zolpidem (AMBIEN CR) Take 12.5 mg by 0 Active 12.5 mg CR tablet mouth daily. celecoxib (CELEBREX) 200 Take 1 Cap by 60 Each 2 08/26/2012 Active mg capsuleIndications: mouth 2 times Arthralgia daily. Take with a stomach med daily. omeprazole (PRILOSEC) 20 TAKE 1 CAPSULE 30 Cap 3 12/29/2012 Active mg capsule BY MOUTH DAILY FOR STOMACH OLANZapine (ZYPREXA) 5 Take 2.5 mg by 0 Active mg tablet mouth every 4 hours as needed. Active Problems Patient Care Coordination Note Formatting of this note might be differe nt from the original. No appt scheduled yet,pt pre-reg'd and g ave oos bcbs and medicare info. Problem Noted Date History of peptic ulcer 12/29/2012 Psoriasis 08/26/2012 Pain in joint 08/26/2012 Elevated liver function tests 08/26/2012 Overview: July 2012-presumed viral, though hep atitis panel negative. Depression 08/26/2012 Overview: Controlled on antidepressant. Encounters Date Type Specialty Care Team Description 02/26/2022 Lab Requisition Clinical Laboratory Outr Resulting Lab , Provider from Last 3 Months Surgical History Surgery Date Site/Laterality Comments CHOLECYSTECTOMY 2009 OVARIAN CYST SURGERY 2006 drained TUBAL LIGATION 2006 LYMPH NODE BIOPSY Medical History Medical History Date Comments Hepatitis July 2012 Presumed viral Gastric ulcer 2009 [facility] distal gastritis, duodenitis, gastric ulcers Hypertension Family History Medical History Relation Name Comments Psoriasis Brother Arthritis Father ? Psoriatic vers us rheumatoid Psoriasis Father Relation Name Status Comments Brother Father Social History Tobacco Use Types Packs/Day Years Used Date Current Every Day Smoker Cigarettes 0.5 2 Smokeless Tobacco: Never Used Alcohol Use Standard Drinks/Week Comments No 0 (1 standard drink = 0.6 oz pure alcoho l) Sex Assigned at Date Recorded Not on file Last Filed Vital Signs Vital Sign Reading Time Taken Comments Blood Pressure 128/85 01/25/2020 0811 EDT Pulse 68 08/26/2012 1322 EST Temperature 36.3 ??C (97.3 ??F) 01/25/2020 0811 EDT Respiratory Rate 16 01/25/2020 0811 EDT Oxygen Saturation 100% 01/25/2020 0811 EDT Inhaled Oxygen Concentration - - Weight 65.8 kg (145 lb) 01/25/2020 0811 EDT Height 158.8 cm (5' 2.5) 01/25/2020 0811 EDT Body Mass Index 26.1 01/25/2020 0811 EDT Plan of Treatment Health Maintenance Due Date Last Done Comments COVID-19 Vaccine (#1) 1970 Pneumococcal Immunization (1 - PCV) 1978 Hepatitis C Screen Completed 02/25/2022 Procedures Procedure Name Priority Date/Time Associated Diagnosis Comme nts HEPATITIS C AB W Routine 02/25/2022 14:52 Results for this REFLEX TO HCV RNA EDT procedure are in BY PCR the results section. from Last 3 Months Results HEPATITIS C AB W REFLEX TO HCV RNA BY PCR (02/25/2022 14:52 EDT) Pathologist Sig nature Hep C Antibody Negative Negative [facility] Specimen Blood - Venous blood (substance) Performing Organization Address City/State/ZIP Code Phon e Number [facility] [address] [place] [address] SERVICES from Last 3 Months Insurance Payer Benefit Plan / Subscriber ID Effective Dates Phone Addre ss Type Group BCBS OOS [place]BS [place] [id number] 2018-[address] [address] [place] [address] MEDICARE MEDICARE A/B [id number] 2018-[place] [address] [place] [address] Lisseth Boone Personal/Family Self 1970 [address] [place] [address] Lisseth Boone Personal/Family Self 1970 [address] [place] [address] Advance Directives For more information, please contact: [phone] Documents on File Type Date Recorded 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
--- OUTSIDE RECORDS SUMMARY | 2022-03-18 11:27 | XMS_ITS | Encounter Summary ---
:1970 Author Organization [facility] [place] [address] Care Team Providers Name Role Phone Travis Torres MD Primary Care Provider Reason for Visit Reason Onset Date Comments Prior Authorization 01/21/2022 [employer] approved Encounter Details Date Type Department Care Team Description 01/21/2022 Telephone Neurology at [facility], Colten Carrion ior Authorization [place] FRANK ([employer] approved) [address] [place] [address] [place], [place] [address] Social History Tobacco Use Types Packs/Day Years Used Date Current Every Day Smoker Cigarettes 0.5 15 Candelario t: 08/30/2017 Smokeless Tobacco: Never Used Alcohol Use Standard Drinks/Week Comments Not Currently 0 (1 standard drink = 0.6 oz pure alcoho l) Sex Assigned at Date Recorded Not on file documented as of this encounter Miscellaneous Notes Telephone Encounter - Tamara Hurtado RN - 01/21/2022 4:00 PM EDT Images from the original note were not included. Telephone Encounter - Haydee Dolan RN - 01/21/2022 1:59 PM EDT Images from the original note were not included. PA was cancelled as question was answered incorrectly Attempted to correct PA but it was not accepted Called Jadiel at [phone] unable to be found They were able to [facility] with Call transferred to [facility] Completed PA over the phone We will have a response within 24 hours Telephone Encounter - Tamara Hurtado RN - 01/21/2022 12:05 PM EDT Images from the original note were not included. documented in this encounter Plan of Treatment Upcoming Encounters Date Type Specialty Care Team Description 04/14/2022 Office Visit Neurology Cameron Alves MD [facility] [address] [place] [address] (Wo rk) documented as of this encounter Goals Goal Patient Goal Associated Recent Patient-Stated? Author Type Problems Progress DH Home Medication Patient No Kendrick ridley, Compliance and Facing Kan Restrepo, Understanding Action Plan [facility] Note: Formatting of this note might be d ifferent from the original. Patient's specific desired goal: to have fewer headaches and to use less adjunct / rescue medication Measured by: calendar, frequency of use of adjunct / rescue meds Time-frame to meet goal: 90-150 days documented as of this encounter Visit Diagnoses Not on filedocumented in this encounter Care Teams Commercial Estimator Relationship Specialty Start Date End Date Travis Torres MD PCP - General Family Medicine 01/09/22 [place] [phone] documented as of this encounter
--- OUTSIDE RECORDS SUMMARY | 2022-03-18 11:27 | XMS_ITS | Encounter Summary ---
:1970 Author Organization [facility] Address [address] [place] [address] Care Team Providers Name Role Phone None, Provider Primary Care Provider Unavailable Encounter Details Date Type Department Care Team Description 01/16/2020 Orders Only [facility] Tushar Urban for Gastroenterology - Main MD Madiha laboratory testing [address] for COVID-[address] [place] [address] (Primary Dx) [place] [address] [facility] [phone] [facility] [address] [place] [phone] Social History Tobacco Use Types Packs/Day Years Used Date Current Every Day Smoker Cigarettes 0.5 2 Smokeless Tobacco: Never Used Alcohol Use Standard Drinks/Week Comments No 0 (1 standard drink = 0.6 oz pure alcoho l) Sex Assigned at Date Recorded Not on file documented as of this encounter Progress Notes Gisel Escalante RN - 01/16/2020 1205 EDT Pre-procedure covid testing entered. documented in this encounter Plan of Treatment Not on filedocumented as of this encounter Visit Diagnoses Diagnosis Encounter for laboratory testing for COV ID-19 virus - Primary documented in this encounter Care Teams Food Safety Coordinator Relationship Specialty Start Date End Date None, Provider PCP - General 01/02/20 01/24/20 documented as of this encounter
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
--- OUTSIDE RECORDS SUMMARY | 2022-03-18 11:28 | XMS_ITS | Encounter Summary ---
:1970 [place] [address] Care Team Providers Name Role Phone Unavailable Primary Care Provider Unavailable Reason for Visit Reason Onset Date Comments Prior Authorization 10/22/2021 Ubrelvy 100 mg Encounter Details Date Type Department Care Team Description 10/22/2021 Telephone Neurology at [facility] Alves, Colten Carrion ior Authorization [place] FRANK (Ubrelvy 100 mg) [address] [place] [address] [place], [place] [address] Social History Tobacco Use Types Packs/Day Years Used Date Current Every Day Smoker Cigarettes 0.5 15 Candelario t: 08/30/2017 Smokeless Tobacco: Never Used Alcohol Use Standard Drinks/Week Comments Not Currently 0 (1 standard drink = 0.6 oz pure alcoho l) Sex Assigned at Date Recorded Not on file documented as of this encounter Miscellaneous Notes Telephone Encounter - Haydee Dolan RN - 10/24/2021 11:01 AM EST Images from the original note were not included. Telephone Encounter - Tamara Hurtado RN - 10/22/2021 10:12 AM EST Images from the original note were not included. documented in this encounter Plan of Treatment Upcoming Encounters Date Type Specialty Care Team Description 04/14/2022 Office Visit Neurology Caemron Alves MD [facility] [place], [place] [address] (Wo rk) documented as of this encounter Goals Goal Patient Goal Associated Recent Patient-Stated? Author Type Problems Progress DH Home Medication Patient No Kendrick ridley, Compliance and Facing Kan Restrepo, Understanding Action Plan [facility] Note: Formatting of this note might be [...]
--- OUTSIDE RECORDS SUMMARY | 2022-03-18 11:28 | XMS_ITS | Encounter Summary ---
:1970 Author Organization [facility] [place] [address] Care Team Providers Name Role Phone Lolis Moss MD Primary Care Provider Encounter Details Date Type Department Care Team Description 11/22/2020 Telephone Psychiatry and Behavioral Health Tarsha Cyr at [facility] [place] [phone] Social History Tobacco Use Types Packs/Day Years Used Date Current Every Day Smoker Cigarettes 0.5 15 Candelario t: 08/30/2017 Smokeless Tobacco: Never Used Alcohol Use Standard Drinks/Week Comments Not Currently 0 (1 standard drink = 0.6 oz pure alcoho l) Sex Assigned at Date Recorded Not on file documented as of this encounter Miscellaneous Notes Telephone Encounter - Tarsha Linares - 11/22/2020 1:00 PM EDT Pharmacy called, they need some clarification before the refill can be completed. Thank you documented in this encounter Plan of Treatment Upcoming Encounters Date Type Specialty Care Team Description 04/14/2022 Office Visit Neurology Cameron Alves MD [facility] [address] [place] [address] (Wo rk) documented as of this encounter Goals Goal Patient Goal Associated Recent Patient-Stated? Author Type Problems Progress DH Home Medication Patient No Conkli n, Compliance and Facing Kan Restrepo, Understanding Action Plan [facility] Note: Formatting of this note might be d ifferent from the original. Patient's specific desired goal: to have fewer headaches and to use less adjunct / rescue medication Measured by: calendar, frequency of use of adjunct / rescue meds Time-frame to meet goal: 90-150 days documented as of this encounter Visit Diagnoses Not on filedocumented in this encounter Care Teams Product Manager Relationship Specialty Start Date End Date Lolis Moss MD PCP - General General Internal Medicine 03/28/20 12/17/[address] [facility] [address] [place] [address] documented as of this encounter
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
--- OUTSIDE RECORDS SUMMARY | 2022-03-18 11:28 | XMS_ITS | Encounter Summary ---
:1970 Author Organization [facility] [place] [address] Care Team Providers Name Role Phone Travis Torres MD Primary Care Provider Reason for Visit Reason Comments Medication Refill Encounter Details Date Type Department Care Team Description 08/29/2020 Refill Neurology at [facility] Cameron Alves Ch ron migraine without Road aura, with intractable [address] [facility] migraine, so stated, [place] [address] with status migrainosus [phone] [place], [place] [address] (Wo rk) Social History Tobacco [...] 04/14/2022 Office Visit Neurology Cameron Alves MD [facility] [place], [place] [address] (Wo rk) documented as of [...] migrainosus documented in this encounter Care Teams Title Camera Operator Relationship Specialty Start Date End Date Travis Torres MD PCP - General Family Medicine 01/09/22 [address] [place] [address] documented as of this encounter
--- OUTSIDE RECORDS SUMMARY | 2022-03-18 11:28 | XMS_ITS | Encounter Summary ---
:1970 Author Organization [place] [address] Care Team Providers Name Role Phone Travis Torres MD Primary Care Provider Reason for Visit Reason Comments Medication Refill Encounter Details Date Type Department Care Team Description 10/07/2021 Refill Neurology at [facility] Cameron Alves Ch ron migraine without Road aura, with intractable [address] [facility] migraine, so stated, [place] [address] with status migrainosus [phone] [place], [place] [address] (Wo rk) Social History Tobacco [...] Neurology Cameron Alves MD [facility] [place], [place] [address] (Wo rk) documented as of [...] migrainosus documented in this encounter Care Teams Woodwind Instrument Repairer Relationship Specialty Start Date End Date Travis Torres MD PCP - General Family Medicine 01/09/22 [address] [place] [address] documented as of this encounter
--- OUTSIDE RECORDS SUMMARY | 2022-03-18 11:28 | XMS_ITS | Encounter Summary ---
:1970 Author Organization [facility] [place] [address] Care Team Providers Name Role Phone Lolis Moss MD Primary Care Provider Reason for Visit Reason Onset Date Comments Medication Refill 08/21/2020 Encounter Details Date Type Department Care Team Description 08/21/2020 Refill Psychiatry and Behavioral DueBobbi dill [facility] [place] [address] [place] [address] [phone] (Wo rk) Social History Tobacco Use Types [...] Visit Neurology Cameron Alves MD [facility] [address] [place] [address] (Wo rk) documented as of this encounter Goals Goal Patient Goal Associated Recent Patient-Stated? Author Type Problems Progress DH Home Medication Patient No eKndrick n, Compliance and Facing Kan Restrepo, Understanding Action Plan [facility] Note: Formatting of this note might be d ifferent from the original. Patient's specific desired goal: to have fewer headaches and to use less adjunct / rescue medication Measured by: calendar, frequency of use of adjunct / rescue meds Time-frame to meet goal: 90-150 days documented as of this encounter Visit Diagnoses Not on filedocumented in this encounter Care Teams Shear Grinder Operator Relationship Specialty Start Date End Date Lolis Moss MD PCP - General General Internal Medicine 03/28/20 12/17/[address] [facility] [address] KARINA SALTER [facility] [place] [address] documented as of this encounter
--- OUTSIDE RECORDS SUMMARY | 2022-03-18 11:28 | XMS_ITS | Encounter Summary ---
:1970 Author Organization [facility] [place] [address] Care Team Providers Name Role Phone Travis Torres MD Primary Care Provider Reason for Visit Reason Comments Medication Refill Encounter Details Date Type Department Care Team Description 01/13/2022 Refill Neurology at [facility] Cameron Alves Ch ron migraine without Road aura, with intractable [address] [facility] migraine, so stated, [place] [address] with status migrainosus [phone] [place], [place] [address] (Wo rk) Social History Tobacco [...] 04/14/2022 Office Visit Neurology Cameron Alves MD [facility] [place] [address] (Wo rk) documented as of [...] migrainosus documented in this encounter Care Teams Casino Duty Manager Relationship Specialty Start Date End Date Travis Torres MD PCP - General Family Medicine 01/09/22 [address] [place] [address] documented as of this encounter
--- OUTSIDE RECORDS SUMMARY | 2022-03-18 11:28 | XMS_ITS | Encounter Summary ---
:1970 [place] [address] Care Team Providers Name Role Phone Lolis Moss MD Primary Care Provider Encounter Details Date Type Department Care Team Description 06/19/2020 Telephone Neurology at [facility] Cameron Alves MD [address] [facility] [place] [address] [place] [address] [phone] (Wo rk) Social History Tobacco Use Types Packs/Day Years Used Date Current Every Day Smoker Cigarettes 0.5 15 Candelario t: 08/30/2017 Smokeless Tobacco: Never Used Alcohol Use Standard Drinks/Week Comments Not Currently 0 (1 standard drink = 0.6 oz pure alcoho l) Sex Assigned at Date Recorded Not on file documented as of this encounter Miscellaneous Notes Telephone Encounter - Lola Fernández CMA - 06/19/2020 9:40 AM EST Images from the original note were not included. documented in this encounter Plan of Treatment Upcoming Encounters Date Type Specialty Care Team Description 04/14/2022 Office Visit Neurology Cameron Alves MD [facility] [address] [place] [address] (Wo rk) documented as of this encounter Goals Goal Patient Goal Associated Recent Patient-Stated? Author Type Problems Progress DH Home Medication Patient No Kendrick n, Compliance and Facing Kan Restrepo, Understanding Action Plan [facility] Note: Formatting of this note might be d ifferent from the original. Patient's specific desired goal: to have fewer headaches and to use less adjunct / rescue medication Measured by: calendar, frequency of use of adjunct / rescue meds Time-frame to meet goal: 90-150 days documented as of this encounter Visit Diagnoses Not on filedocumented in this encounter Care Teams Tool Maker Bench Relationship Specialty Start Date End Date Lolis Moss MD PCP - General General Internal Medicine 03/28/20 12/17/[address] [facility] [address] KARINA SALTER [facility] [place] [address] documented as of this encounter
--- OUTSIDE RECORDS SUMMARY | 2022-03-18 11:28 | XMS_ITS | Encounter Summary ---
:1970 Author Organization [facility] [place] [address] Care Team Providers Name Role Phone Lolis Moss MD Primary Care Provider Encounter Details Date Type Department Care Team Description 06/18/2020 TH Visit Neurology at [facility] ic migraine (TeleHealth) Kolton Gimenez MD without aura, with [address] [facility] [place] [address] [place] [id number] [place] [address] status migrainosus [phone] Social History Tobacco Use Types Packs/Day Years Used Date Current Every Day Smoker Cigarettes 0.5 15 Candelario t: 08/30/2017 Smokeless Tobacco: Never Used Alcohol Use Standard Drinks/Week Comments Not Currently 0 (1 standard drink = 0.6 oz pure alcoho l) Sex Assigned at Date Recorded Not on file documented as of this encounter Patient Instructions Patient InstructionsCameron Alves MD - 06/18/2020 4:30 PM EST 06-18-20 I am going to switch your Aimovig to every 28 days from every 30 days to reduce the wearing off. Try 1/2 of the 100 mg Ubrelvy early in an attack and see if 50 mg works for you. You can also take 1/2 twice daily in the 2 days before your next injection of Aimovig to prevent headaches from breaking through during the wearing off. Ubrelvy will not cause rebound or worsening of your migraines. It is OK to use Ubrelvy with either Treximet or sumatriptan, but do not combine Treximet with sumatriptan. Cameron Alves MD documented in this encounter Progress Notes Cameron Alves MD - 06/18/2020 4:30 PM EST Neurology [facility] TeleHealth Visit 06-18-20 Last appointment: 11-23-19 Pain today: 1 Interval Headache Hx: Pt last evaluated in November, and I wrote, This patient has recurrent psychosis with bipolar disorder, a chronic pain syndrome, chronic migraine, and has had at least 38 medication trials. She was on mag B2, TPM, and candesartan, and I added CoQ10 and prn TRX??in Apr 2018. She cancelled her appointments on 11/10/17 and 12/22/17.??She has not had Botox.?? Her prevention meds??in Sep 2018 were??TPM, duloxetine, quetiapine, mag, CoQ10, and candesartan. Herprn was TRX. She??was getting [facility] 3-5 times per week, using prn TRX.??She was getting 12-20 [facility] days per month.0 I prescribed erenumab, first dose??Sep 21, 2018. She has Medicare/BCBS insurance. She no showed for her follow up TeleHealth appointment 04-09-20. She is still on erenumab. This is working in that she does not get severe attacks. She gets mild attacks promptly terminated by ubrogepant, TRX, or ivon. No side effects from erenumab, and the drug wears off a bit before the next injection. Patient Reported: MIDAS Responses 06/18/2020 Days missed school/work 2 Days productivity at work/school reduced 2 Days did not do household work 2 Days productivity related to housework reduced 2 Days missed family, social or leisure activities 2 Days had headache 45 Pain scale 3 MIDAS Score 10 (MIDAS grade II, mild disability) MIDAS Adjusted Score - Prior Treatments: TCAs ?1. Amitriptyline Neuroleptics ?2. Olanzepine ?3. Promethazine ?4. Chlorpromazine ?5. Prochlorperazine Muscle relaxants ?6. Baclofen ?7. Cyclobenzaprine BZDs ?8. Clonazepam ?7. Zolpidem ?8. Midazolam Beta blockers ?9. Metoprolol Antihistamines ?10. Diphenhydramine ?11. Hydroxyzine AEDs ?12. LTG ?13.??TPM ?14. GBP ?15. PGB ?16. VPA NSAIDs ?17. Ketorolac ?18. Indomethacin ?19. Ibuprofen ?20. ASA ?Excedrin ?21. Naproxen Other antideppresants ?22. Trazodone ?23. Bupropion Triptans ?24. Riza 5 ?25. Ivon 100 ?TRX Misc ?26. Scopolamine ?27. APAP Supplements ?28. B2 ?29. Mag ?30. CoQ10 Narcotics ?31. Oxycodone ?32. Fentanyl ?33. Hydromorphone ?34. Hydrocodone SNRIs ?35. Duloxetine ?36. Venlafaxine WALESKA ?37. Lisinopril ARBs ?38. Candesartan SSRIs ?39. Sertraline MABs ?40. Erenumab ?? New Health Issues: See HPI New Family History: no Past Medical History: Diagnosis Date ??? Back [...] brain injury) Sep ??? Total body pain Past Surgical History: Procedure Laterality Date ??? BREAST BIOPSY Right 2011 ??? CERVIX SURGERY ??? CHOLECYSTECTOMY ??? OVARIAN CYST REMOVAL right ??? OVARIAN CYST REMOVAL 2004 ??? PRO COLONOSCOPY, BIOPSY N/A 02/11/2016 COLONOSCOPY FLEXIBLE, WITH BX performed by David Hardy MD at [facility] ENDOSCOPY ??? PRO LAP, RMV ADNEXAL STRUCTURE N/A 09/22/2019 LAPAROSCOPY, REMOVAL OF ADNEXA (WRVU 11.35) performed by Polina Raymond MD at [facility] MAIN OR ??? PRO UPPER GI ENDOSCOPY, BIOPSY N/A 02/11/2016 UPPER GASTROINTESTINAL ENDOSCOPY,WITH BIOPSY SINGLE OR MULTIPLE performed by David Hardy MD at [facility] ENDOSCOPY ??? PRO UPPER GI ENDOSCOPY, BIOPSY N/A 12/27/2019 EGD WITH BIOPSY (WRVU 2.49) performed by Inocencia Kasper MD at [facility] ENDOSCOPY ??? TUBAL LIGATION Studies to Review: no Current Outpatient Medications on File Prior to Visit Medication Sig Dispense Refill ??? Aimovig Autoinjector 140 mg/mL Auto-Injector ADMINISTER 1 ML UNDER THE SKIN EVERY 30 DAYS 1 mL 5 ??? montelukast (Singulair) 10 mg Tablet TAKE 1 TABLET BY MOUTH EVERY NIGHT 90 tablet 3 ??? clonazePAM (KlonoPIN) 0.5 mg Tablet Take 1 tablet by mouth 3 times daily as needed for Anxiety for up to 90 days. 270 tablet 0 ??? OLANZapine (ZyPREXA) 2.5 mg Tablet Take 1 tablet by mouth every 4 hours. During waking hours 540tablet 1 ??? candesartan (Atacand) 16 mg Tablet TAKE 1 TABLET BY MOUTH EVERY EVENING 90 tablet 1 ??? SUMAtriptan-Naproxen 85-500 mg Tablet Take 1 tablet by mouth at onset of migraine, may repeat after 2 hours if needed. Max of 2 tabs in 24 hours. Max of 2 days per week. Patient must be seen in follow up for further refills. 9 tablet 0 ??? Linzess 290 mcg Capsule TK 1 C PO D. ??? divalproex EC (Depakote) 250 mg Tablet, Delayed Release (E.C.) Take 1 tablet by mouth 2 times daily. 180 tablet 1 ??? linaclotide (Linzess) 145 mcg Capsule Take 145 mcg by mouth daily. ??? cetirizine (ZyrTEC) 10 mg Tablet Take 10 mg by mouth daily. ??? estrogen, conjugated,-medroxyprogesterone (Prempro) 0.45-1.5 mg Tablet Take 1 tablet by mouth daily. 90 tablet 3 ??? fexofenadine (COREY) 180 mg Tablet Take 1 tablet by mouth daily. (Patient not taking: Reportedon 04/08/2020) 90 tablet 3 ??? acetaminophen (Tylenol) 500 [...] by mouth nightly. 90 tablet 3 ??? SUMAtriptan (Imitrex) 100 mg Tablet Take one tablet at onset of migraine, may repeat in 2 hours if needed. No more than 2 tabs in 24 hours. Do not use more than 2 days per week. 9 tablet 3 ??? DULoxetine DR (Cymbalta) 60 mg Capsule, Delayed Release(E.C.) Take 1 capsule by mouth 2 times daily. 180 capsule 1 ??? albuterol 90 mcg/actuation HFA Aerosol Inhaler INHALE 2 PUFFS EVERY 6 HOURS NEEDED ??? ubrogepant (Ubrelvy) 100 mg Tablet Take 100 mg by mouth as needed. 10 tablet 13 ??? ondansetron (Zofran) 8 mg Tablet Take 1 tablet by mouth 2 times daily as needed for Nausea. 20 tablet 3 ??? varenicline (Chantix) 0.5 mg Tablet Take by mouth with meals. Days 1-3: 0.5 mg ONCE daily. Days 4-7: 0.5 mg TWICE daily. Day 8 until the end of treatment: 1 mg TWICE daily. (Patient not taking: Reported on 04/08/2020) 53 tablet 0 ??? ibuprofen (Advil;Motrin) 600 mg Tablet Take 1 tablet by mouth every 6 hours as needed for Pain. (Patient not taking: Reported on 12/28/2019) 30 tablet 12 ??? baclofen (LIORESAL) 20 mg Tablet Take 0.5 tablets by mouth 3 times daily as needed. (Patient nottaking: Reported on 04/08/2020) 270 tablet 3 ??? omeprazole/sodium bicarbonate (ZEGERID ORAL) [...] 30 tablet 11 No current facility-administered medications on file prior to visit. Allergies Allergen Reactions ??? Hay Fever And Allergy Relief [Chlorpheniramine-Phenylpropan] ??? Pollen Extracts ??? Unable To Find [Unclassified Drug] Pet hair REVIEW OF SYSTEMS: See HPI Impression: 1. Chronic migraine without aura, with intractable migraine, so stated, with status migrainosus She is having wearing off, so I will switch her erenumab from Q30d to Q28d. She can try 1/2 ubrogepant acutely and preventively (see below). Plan/instructions to patient: I am going to switch your Aimovig to every 28 days from every 30 days to reduce the wearing off. Try 1/2 of the 100 mg Ubrelvy early in an attack and see if 50 mg works for you. You can also take 1/2 twice daily in the 2 days before your next injection of Aimovig to prevent headaches from breaking through during the wearing off. Ubrelvy will not cause rebound or worsening of your migraines. It is OK to use Ubrelvy with either Treximet or sumatriptan, but do not combine Treximet with sumatriptan. AIMOVIG Follow Up [facility] Patient name: Lisseth Boone Date of : 1970 Patient Reported: MIDAS Responses 06/18/2020 Days missed school/work 2 Days productivity at work/school reduced 2 Days did not do household work 2 Days productivity related to housework reduced 2 Days missed family, social or leisure activities 2 Days had headache 45 Pain scale 3 MIDAS Score 10 (MIDAS grade II, mild disability) MIDAS Adjusted Score - Date you began using Aimovig: Sep 21, 2018 How many months have you administered Aimovig 140 m How many migraine/headache days per month did you have BEFORE starting Aimovi How many migraine/headache days per month have you had SINCE starting Aimovi Have you noticed that your headaches/migraines are not as severe since starting Aimovi Have you used less of your abortive medications (triptans, NSAIDs, etc) since starting Aimovig: yes Are your abortive medications working better to abort migraines since starting Aimovig: ubrogepant or TRX or ivon work and stop the attacks Do you think the Aimovig is helping: yes Side effects: no Is the medication wearing off ? yes If it is, when? Last few days before injection Follow-up: 4 month TeleHealth with me I spent 40 minutes in this visit with 30 minutes devoted to TeleHealth patient counseling, in addition to prep time. Angelica Boone gave verbal consent over the phone for this TeleHealth visit. The patient understands that this visit will be billed to their insurance, similar to a clinic visit. Cameron Alves MD documented in this encounter Plan of Treatment Upcoming Encounters Date Type Specialty Care Team Description 04/14/2022 Office Visit Neurology Cameron Alves MD [facility] [place], [place] [address] (Wo rk) documented as of this encounter Goals Goal Patient Goal Associated Recent Patient-Stated? Author Type Problems Progress DH Home Medication Patient No Kendrick ridley, Compliance and Facing Kan Restrepo, Understanding Action Plan [facility] Note: Formatting of this note might be [...] migrainosus documented in this encounter Care Teams Mainframe Systems Engineer Relationship Specialty Start Date End Date Lolis Moss MD PCP - General General Internal Medicine 03/28/20 12/17/[address] [facility] [address] [facility]INA [place] [address] documented as of this encounter
--- OUTSIDE RECORDS SUMMARY | 2022-03-18 11:28 | XMS_ITS | Encounter Summary ---
:1970 [place] [address] Care Team Providers Name Role Phone Lolis Moss MD Primary Care Provider Reason for Visit Reason Onset Date Comments Other 07/03/2020 Encounter Details Date Type Department Care Team Description 07/03/[address] [facility] Cameron Alves MD Other [address] [facility] [place] [address] [place] [address] [phone] (Wo rk) Social History Tobacco Use Types Packs/Day Years Used Date Current Every Day Smoker Cigarettes 0.5 15 Candelario t: 08/30/2017 Smokeless Tobacco: Never Used Alcohol Use Standard Drinks/Week Comments Not Currently 0 (1 standard drink = 0.6 oz pure alcoho l) Sex Assigned at Date Recorded Not on file documented as of this encounter Miscellaneous Notes Telephone Encounter - Emily Chiang Farhat - 07/03/2020 12:13 PM EST Call Center / History Tutor - Message Provider Call to Neurology Caller: Dr Aranda Call back number: [phone] Ask caller if they want a message to be sent to either the nurse or the requested provider Message: Dr Aranda is calling to do a peer to peer with either Dr Geovanni Alves or a nurse. States this is in regards to the Aimovig medication prescription. Please call back to discuss. Disposition of Call: Routine message sent to nurse and provider documented in this encounter Plan of Treatment Upcoming Encounters Date Type Specialty Care Team Description 04/14/2022 Office Visit Neurology Cameron Alves MD [facility] [place] [address] (Wo rk) documented as of this encounter Goals Goal Patient Goal Associated Recent Patient-Stated? Author Type Problems Progress DH Home Medication Patient No Kendrick ridley, Compliance and Facing Kan Restrepo, Understanding Action Plan [facility] Note: Formatting of this note might be d ifferent from the original. Patient's specific desired goal: to have fewer headaches and to use less adjunct / rescue medication Measured by: calendar, frequency of use of adjunct / rescue meds Time-frame to meet goal: 90-150 days documented as of this encounter Visit Diagnoses Not on filedocumented in this encounter Care Teams Utility Locate Technician Relationship Specialty Start Date End Date Lolis Moss MD PCP - General General Internal Medicine 03/28/20 12/17/20 [facility] [address] [place] [address] documented as of this encounter
--- OUTSIDE RECORDS SUMMARY | 2022-03-18 11:28 | XMS_ITS | Encounter Summary ---
:1970 [place] [address] Care Team Providers Name Role Phone Lolis Moss MD Primary Care Provider Reason for Visit Reason Onset Date Comments Triage 07/30/2020 Encounter Details Date Type Department Care Team Description 07/30/2020 Telephone [facility] Bobbi Rahman, [place] [address] Social History Tobacco Use Types Packs/Day Years Used Date Current Every Day Smoker Cigarettes 0.5 15 Candelario t: 08/30/2017 Smokeless Tobacco: Never Used Alcohol Use Standard Drinks/Week Comments Not Currently 0 (1 standard drink = 0.6 oz pure alcoho l) Sex Assigned at Date Recorded Not on file documented as of this encounter Miscellaneous Notes Telephone Encounter - Bobbi Ramirez RN - 07/30/2020 8:07 AM EST High Threat Infection Intake Questions Nurse Triage Assessment Review of Pertinent Systems & Pertinent positive/negative findings (e.g. Skin, Neurological, Respiratory, Cardiac, GI, , and Musculoskeletal): Achy and fatigue When did your symptoms start? 07/27/20 People with any of these acute symptoms may have COVID-19: Detail of symptoms: Cough: No Shortness of Breath: No Fever: No Check all that apply: [x] Fatigue [x] Muscle or Body Aches [] Headache [] New loss of taste or smell [] Sore Throat [] Congestion or runny nose [] Nausea or vomiting [] Diarrhea Pediatrics: [] Retractions/belly breathing [] Skin/Lip color changes [] Wheezing [] Stridor [] Eating/Drinking normally [] Voiding normally Employee or household member at [facility] [employer]? No If yes, please state whether employee or household member: na If employee, check to see if qualifies for Rapid testing: No (Yes if employee scheduled to work in hospital in less than 24 hours and has *primary role in directinpatient care or surgeon) *primary role: Attending, Resident/Residential Door Installer, FABIÁN, RN, BATCHING OPERATOR Have you been in contact with anyone suspected or confirmed to have COVID-19 in the past 14 days? Yes Any travel in the past 14 days? No If so, Where: na Date of departure: na Date of Return: na TESTING CRITERIA: Asymptomatic patients: Criteria for testing- member of or healthcare worker at a senior care/halfway, halfway facility or termite helper care facility (LTCF), and all first responders. Pre procedural patients requiring admission or determined high risk by provider. * patient/ employee returning to college/boarding school, returning to work requirement, or travel requirement. Exposure as determined by State, School, or Occupational Medicine at . Symptomatic Patients: People with COVID-19 have had a wide range of symptoms reported - ranging from mild symptoms to severe illness. Symptoms may appear 2-14 days after exposure to the virus. Consider testing if these symptoms cannot otherwise be explained. Plan/Disposition: If ordering test, ordering PCP: lolis moss Date, time and location of test: 07/30/[address] [place] [address] If sending for testing ask the following: First test for Covid-19: no If not first covid test: date of previous test, type of test (molecular, antigen, antibody, or unknown), and result of previous test: na Employed in healthcare: no Symptomatic as defined by CDC: yes Resides in congregate care setting: no : no Name of Triage Guideline/Protocol used: Utilized High Threat Infection Screening for Covid 19 Hotline as directed by incident command and infectious disease based on CDC guidelines, [place] Department of Health and Human Services, and [facility] policy. Patient/Responsible alliance party voices an understanding of advice: yes Patient/Responsible alliance party intends to comply with actions/disposition: yes All Patients - If YES to exposure and NO to symptoms - Proceed with Quarantine Instructions. [facility], School, or Occupational Medicine may request testing. If NO to symptoms/exposure - Proceed with Nurse Triage - Proceed with appropriate instructions based on Triage protocol If YES to symptoms - Proceed with testing protocol - Proceed with Isolation instructions Important instructions for patient when scheduling for testing: -No dogs allowed in car unless in kennel or behind gated section, due to risk to the clinical staff. -Follow quarantine/isolation instructions (pamphlets available to hand out at testing location) Education/Instructions: Isolation Instructions: 1. Stay home from work, school, and away from other public places. If you must go out, avoid using any kind of public transportation, ridesharing, or taxis. 2. Monitor your symptoms carefully. If your symptoms get worse, call your healthcare provider immediately. 3. Get rest and stay hydrated. 4. If you have a medical appointment, call the healthcare provider ahead of time and tell them that you have or may have COVID-19. 5. For medical emergencies, call 911 and notify the dispatch personnel that you have or may have COVID-19. 6. Cover your cough and sneezes. 7. Wash your hands often with soap and water for at least 20 seconds or clean your hands with an alcohol-based hand health worker that contains at least 60% alcohol. 8. As much as possible, stay in a specific room and away from other people in your home. Also, you should use a separate bathroom, if available. If you need to be around other people in or outside of the home, wear a facemask. 9. Avoid sharing personal items with other people in your household, like dishes, towels, and bedding 10. Clean all surfaces that are touched often, like counters, tabletops, and doorknobs. Use household cleaning sprays or wipes according to the label instructions. 11. You can use acetaminophen or ibuprofen as directed for fever. Emergency Warning Signs: If you develop emergency warning signs for COVID-19 get medical attention immediately. Emergency warning signs include: ??? Difficulty breathing or shortness of breath ??? Persistent pain or pressure in the chest ??? New confusion or inability to arouse ??? Bluish lips or face This list is not all inclusive. Please consult your medical provider for any other symptoms that aresevere or concerning. Helpful definitions Close contact is described as: Being within approximately 6 feet (2 meters) of a COVID-19 case for a prolonged period of time; close contact can occur while caring for, living with, visiting, or sharing healthcare waiting area or room with a COVID-19 case. OR Having direct Contact with infectious secretions of a COVID-19 case (e.g., being coughed on) Fever Definition: 100.0 F or higher Additional information: ??? Recommend CDC website for helpful information on self-care and quarantine at home o https://www.cdc.gov/ and choose more information on Covid-19 *May test at [place] only. documented in this encounter Plan of Treatment Upcoming Encounters Date Type Specialty Care Team Description 04/14/2022 Office Visit Neurology Cameron Alves MD [facility] [place], [place] [address] (Wo rk) documented as of this encounter Goals Goal Patient Goal Associated Recent Patient-Stated? Author Type Problems Progress DH Home Medication Patient No Kendrick ridley, Compliance and Facing Kan Restrepo, Understanding Action Plan [facility] Note: Formatting of this note might be d ifferent from the original. Patient's specific desired goal: to have fewer headaches and to use less adjunct / rescue medication Measured by: calendar, frequency of use of adjunct / rescue meds Time-frame to meet goal: 90-150 days documented as of this encounter Visit Diagnoses Not on filedocumented in this encounter Care Teams Body Stylist Relationship Specialty Start Date End Date Lolis Moss MD PCP - General General Internal Medicine 03/28/20 12/17/20 [facility] [address] [place] [address] documented as of this encounter
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
--- OUTSIDE RECORDS SUMMARY | 2022-03-18 11:28 | XMS_ITS | Encounter Summary ---
:1970 [place] [address] Care Team Providers Name Role Phone Lolis Moss MD Primary Care Provider Reason for Visit Reason Onset Date Comments Bumped Appointment 10/22/2020 Encounter Details Date Type Department Care Team Description 10/22/2020 Telephone Neurology at [facility] Cameron Alves MD Bumped Appointment [address] [facility] [place] [address] [place] [address] [phone] (Wo rk) Social History Tobacco Use Types Packs/Day Years Used Date Current Every Day Smoker Cigarettes 0.5 15 Candelario t: 08/30/2017 Smokeless Tobacco: Never Used Alcohol Use Standard Drinks/Week Comments Not Currently 0 (1 standard drink = 0.6 oz pure alcoho l) Sex Assigned at Date Recorded Not on file documented as of this encounter Miscellaneous Notes Telephone Encounter - Nevaeh Sterling - 10/22/2020 3:39 PM EST Scheduled Telephone Encounter - Nalini Kang - 10/22/2020 11:[address] Tony Alves is looking to reschedule this patient's appointment from this afternoon, 10.22.2020, to next Wednesday, 10.29.2020 if at all possible. LVM on patient's cell phone and sent a message to her [facility] asking her to call KAMALA. documented in this encounter Plan of Treatment Upcoming Encounters Date Type Specialty Care Team Description 04/14/2022 Office Visit Neurology Cameron Alves MD [facility] [address] [place] [address] (Wo rk) documented as of this encounter Goals Goal Patient Goal Associated Recent Patient-Stated? Author Type Problems Progress DH Home Medication Patient No Kendrick ridley, Compliance and Facing Kan Restrepo, Understanding Action Plan [facility] Note: Formatting of this note might be d ifferent from the original. Patient's specific desired goal: to have fewer headaches and to use less adjunct / rescue medication Measured by: calendar, frequency of use of adjunct / rescue meds Time-frame to meet goal: 90-150 days documented as of this encounter Visit Diagnoses Not on filedocumented in this encounter Care Teams Curator Relationship Specialty Start Date End Date Lolis Moss MD PCP - General General Internal Medicine 03/28/20 12/17/[address] [facility] [address] [facility] [place] [address] documented as of this encounter
--- OUTSIDE RECORDS SUMMARY | 2022-03-18 11:28 | XMS_ITS | Encounter Summary ---
:1970 Author Organization [facility] [place] [address] Care Team Providers Name Role Phone Lolis Moss MD Primary Care Provider Encounter Details Date Type Department Care Team Description 05/24/2020 Telephone Psychiatry and Behavioral [place] [address] Social History Tobacco Use Types Packs/Day Years Used Date Current Every Day Smoker Cigarettes 0.5 15 Candelario t: 08/30/2017 Smokeless Tobacco: Never Used Alcohol Use Standard Drinks/Week Comments Not Currently 0 (1 standard drink = 0.6 oz pure alcoho l) Sex Assigned at Date Recorded Not on file documented as of this encounter Miscellaneous Notes Telephone Encounter - Jessica Bridges - 05/24/2020 1:25 PM EDT At 1:17pm, Lisseth contacted the [facility] crisis line. Patient reports that she is unable to vegetable picker her medication refill for Klonopin, prescribed by Bobbi Rojas. The pharmacy indicated an issue with the prescriber ID associated with the Rx. The patient reports that she contacted our office yesterday but did not hear back. She states that she is very concerned about the upcoming long weekend and would like to ensure this Rx is filled today. Lisseth reports no current concerns for self harm or thought of suicide. This job specification writer has instructed the patient that a message will be sent to her provider and her provider's supervisors for follow up. A message was sent to Bobbi Rojas, Africa Vanegas, and Kathleen Santos with details and pharmacycontact information. Lisseth has been instructed to contact the crisis line if any thoughts of self- harm or suicide arise. Patient agrees. Time spent: 6 minutes Jessica Bridges documented in this encounter Plan of Treatment Upcoming Encounters Date Type Specialty Care Team Description 04/14/2022 Office Visit Neurology Cameron Alves MD [facility] [address] [place], [place] [address] (Wo rk) documented as of this encounter Goals Goal Patient Goal Associated Recent Patient-Stated? Author Type Problems Progress DH Home Medication Patient No Kendrick n, Compliance and Facing Kan Restrepo, Understanding Action Plan [facility] Note: Formatting of this note might be d ifferent from the original. Patient's specific desired goal: to have fewer headaches and to use less adjunct / rescue medication Measured by: calendar, frequency of use of adjunct / rescue meds Time-frame to meet goal: 90-150 days documented as of this encounter Visit Diagnoses Not on filedocumented in this encounter Care Teams Manager Interface Relationship Specialty Start Date End Date Lolis Moss MD PCP - General General Internal Medicine 03/28/20 12/17/[address] [facility] [address] [place] [address] documented as of this encounter
--- OUTSIDE RECORDS SUMMARY | 2022-03-18 11:28 | XMS_ITS | Encounter Summary ---
:1970 Author Organization [place] [address] Care Team Providers Name Role Phone Lolis Moss MD Primary Care Provider Encounter Details Date Type Department Care Team Description 11/26/2020 Orders Only Psychiatry and Behavioral [facility], [facility] [place] [address] Social History Tobacco Use Types Packs/Day [...] 04/14/2022 Office Visit Neurology Cameron Alves MD [facility] [place], [place] [address] (Wo rk) documented as of this encounter Goals Goal Patient Goal Associated Recent Patient-Stated? Author Type Problems Progress DH Home Medication Patient No Kendrick ridley, Compliance and Facing Kan Restrepo, Understanding Action Plan [facility] Note: Formatting of this note might be d ifferent from the original. Patient's specific desired goal: to have fewer headaches and to use less adjunct / rescue medication Measured by: calendar, frequency of use of adjunct / rescue meds Time-frame to meet goal: 90-150 days documented as of this encounter Visit Diagnoses Not on filedocumented in this encounter Care Teams Airplane Tester Relationship Specialty Start Date End Date Lolis Moss MD PCP - General General Internal Medicine 03/28/20 12/17/20 [facility] [address] [facility] [place] [address] documented as of this encounter
--- OUTSIDE RECORDS SUMMARY | 2022-03-18 11:28 | XMS_ITS | Encounter Summary ---
:1970 Author Organization [facility] [place] [address] Care Team Providers Name Role Phone None Primary Care Provider Unavailable Reason for Visit Reason Comments Medication Refill Encounter Details Date Type Department Care Team Description 12/30/2021 Refill Psychiatry and Bobbi Rojas, Depr ession, unspecified Behavioral Health at MD depression type [facility] [place] [address] [place] [address] [phone] Social History Tobacco Use Types Packs/Day Years [...] 04/14/2022 Office Visit Neurology Cameron Alves MD [facility] [place] [address] (Wo rk) documented as of this encounter Goals Goal Patient Goal Associated Recent Patient-Stated? Author Type Problems Progress DH Home Medication Patient No Kendrick n, Compliance and Facing Kan Restrepo, Understanding Action Plan [facility] Note: Formatting of this note might be d ifferent from the original. Patient's specific desired goal: to have fewer headaches and to use less adjunct / rescue medication Measured by: calendar, frequency of use of adjunct / rescue meds Time-frame to meet goal: 90-150 days documented as of this encounter Visit Diagnoses Diagnosis Depression, unspecified depression type documented in this encounter Care Teams Reservation Manager Relationship Specialty Start Date End Date None PCP - General 12/08/21 01/08/22 None documented as of this encounter
--- OUTSIDE RECORDS SUMMARY | 2022-03-18 11:28 | XMS_ITS | Encounter Summary ---
:1970 Author Organization [facility] [place] [address] Care Team Providers Name Role Phone Lolis Moss MD Primary Care Provider Reason for Visit Reason Onset Date Comments Prior Authorization 11/18/2020 LARON Ubrelvmary continuat ion Encounter Details Date Type Department Care Team Description 11/18/2020 Telephone Neurology at Karina Alves, Colten Carrion ior Authorization (LARON Hi MD Ubrelvy continuation ) [address] [place] [address] [place], [place] [address] Social History Tobacco Use Types [...] Telephone Encounter - Haydee Dolan RN - 12/04/2020 5:54 PM EDT Message from Plan Request Reference Number: [id number]. UBRELVY TAB 100MG is approved through 11/19/2021. Your patient may now fill this prescription and it will be covered. Telephone Encounter - Haydee Dolan RN - 11/19/2020 2:17 PM EDT Lisseth Boone ([place]: [id number]) Ubrelvy 100MG tablets Form: [employer] Electronic Prior Authorization Form (2016 INPD) Created: 25 days ago Sent to Plan: 4 minutes ago Plan Response: 3 minutes ago Submit Clinical Questions: 1 minute ago Determination: Wait for Determination Please wait for [employer] 2017 NCPDP to return a determination. Telephone Encounter - Haydee Dolan RN - 11/18/2020 2:18 PM EDT PA needed for Ubrelvy continuation covermymeds ashby [id number] documented in this encounter Plan of Treatment Upcoming Encounters Date Type Specialty Care Team Description 04/14/2022 Office Visit Neurology Cameron Alves MD [facility] [place], [place] [address] (Wo rk) documented as of this encounter Goals Goal Patient Goal Associated Recent Patient-Stated? Author Type Problems Progress DH Home Medication Patient No Kendrick ridley, Compliance and Facing Kan Restrepo, Understanding Action Plan [facility] Note: Formatting of this note might be d ifferent from the original. Patient's specific desired goal: to have fewer headaches and to use less adjunct / rescue medication Measured by: calendar, frequency of use of adjunct / rescue meds Time-frame to meet goal: 90-150 days documented as of this encounter Visit Diagnoses Not on filedocumented in this encounter Care Teams Architecture Drafter Relationship Specialty Start Date End Date Lolis Moss MD PCP - General General Internal Medicine 03/28/20 12/17/20 [facility] [place] [address] documented as of this encounter
--- OUTSIDE RECORDS SUMMARY | 2022-03-18 11:28 | XMS_ITS | Encounter Summary ---
:1970 [place] [address] Care Team Providers Name Role Phone Lolis Moss MD Primary Care Provider Reason for Visit Reason Onset Date Comments TeleHealth 06/17/2020 Encounter Details Date Type Department Care Team Description 06/17/2020 Telephone Neurology at [facility] Cameron Alves MD TeleHealth [address] [place] [address] [place] [address] [phone] (Wo rk) Social History Tobacco Use Types [...] Telephone Encounter - Lola Fernández CMA - 06/17/2020 11:55 AM EST Unable to review medications and allergies prior to upcoming tele- appointment scheduled with Neurology provider. documented in this encounter Plan of Treatment Upcoming Encounters Date Type Specialty Care Team Description 04/14/2022 Office Visit Neurology Cameron Alves MD [facility] [address] [place] [address] (Wo rk) documented as of this encounter Goals Goal Patient Goal Associated Recent Patient-Stated? Author Type Problems Progress DH Home Medication Patient No Kendrick ridley, Compliance and Facing Kan Restrepo, Understanding Action Plan [facility] Note: Formatting of this note might be d ifferent from the original. Patient's specific desired goal: to have fewer headaches and to use less adjunct / rescue medication Measured by: calendar, frequency of use of adjunct / rescue meds Time-frame to meet goal: 90-150 days documented as of this encounter Visit Diagnoses Not on filedocumented in this encounter Care Teams Machinist Linotype Relationship Specialty Start Date End Date Lolis Moss MD PCP - General General Internal Medicine 03/28/20 12/17/[address] [facility] [address] [facility]ARN[facility] [place] [address] documented as of this encounter
--- OUTSIDE RECORDS SUMMARY | 2022-03-18 11:28 | XMS_ITS | Encounter Summary ---
:1970 Author Organization [facility] [place] [address] Care Team Providers Name Role Phone None Primary Care Provider Unavailable Reason for Visit Reason Comments Medication Refill Encounter Details Date Type Department Care Team Description 01/02/2022 Refill Psychiatry and Behavioral Van Ubaldo hernandez, Rangel Gimenez MD [facility] at [facility] [place] [address] [place] [address] [phone] (Wo rk) Social History Tobacco Use Types [...] 04/14/2022 Office Visit Neurology Cameron Alves MD [facility] [address] [place] [address] (Wo rk) documented as of this encounter Goals Goal Patient Goal Associated Recent Patient-Stated? Author Type Problems Progress DH Home Medication Patient No Kendrick n, Compliance and Facing Kan Restrepo, Understanding Action Plan [facility] Note: Formatting of this note might be d ifferent from the original. Patient's specific desired goal: to have fewer headaches and to use less adjunct / rescue medication Measured by: calendar, frequency of use of adjunct / rescue meds Time-frame to meet goal: 90-150 days documented as of this encounter Visit Diagnoses Not on filedocumented in this encounter Care Teams Apartment Maintenance Manager Relationship Specialty Start Date End Date None PCP - General 12/08/21 01/08/22 None documented as of this encounter
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
--- OUTSIDE RECORDS SUMMARY | 2022-03-18 11:28 | XMS_ITS | Encounter Summary ---
:1970 Author Organization [facility] [place] [address] Care Team Providers Name Role Phone Lolis Moss MD Primary Care Provider Encounter Details Date Type Department Care Team Description 10/22/2020 Telephone Neurology at [facility] Cameron Alves MD [address] [place] [address] [place] [address] [phone] (Wo rk) Social History Tobacco Use Types [...] Telephone Encounter - Haydee Dolan RN - 10/22/2020 8:48 AM EST Called patient and left a message asking her to review and update her medications via myD-H before her video visit with Dr. Alves this afternoon. documented in this encounter Plan of Treatment Upcoming Encounters Date Type Specialty Care Team Description 04/14/2022 Office Visit Neurology Cameron Alves MD [facility] [address] [place] [address] (Wo rk) documented as of this encounter Goals Goal Patient Goal Associated Recent Patient-Stated? Author Type Problems Progress DH Home Medication Patient No Kendrick ridley, Compliance and Facing Kan Restrepo, Understanding Action Plan [facility] Note: Formatting of this note might be d ifferent from the original. Patient's specific desired goal: to have fewer headaches and to use less adjunct / rescue medication Measured by: calendar, frequency of use of adjunct / rescue meds Time-frame to meet goal: 90-150 days documented as of this encounter Visit Diagnoses Not on filedocumented in this encounter Care Teams Tooling Engineering Tech Relationship Specialty Start Date End Date Lolis Moss MD PCP - General General Internal Medicine 03/28/20 12/17/[address] [facility] [address] [facility] [place] [address] documented as of this encounter
--- OUTSIDE RECORDS SUMMARY | 2022-03-18 11:28 | XMS_ITS | Encounter Summary ---
:1970 [place] [address] Care Team Providers Name Role Phone Unavailable Primary Care Provider Unavailable Reason for Visit Reason Onset Date Comments Prior Authorization 10/08/2021 [employer] Encounter Details Date Type Department Care Team Description 10/08/2021 [facility]phone [facility], Colten Carrion ior Authorization [place] FRANK (aimovig) [address] [place] [address] [place], [place] [address] Social History Tobacco Use Types Packs/Day Years Used Date Current Every Day Smoker Cigarettes 0.5 15 Candelario t: 08/30/2017 Smokeless Tobacco: Never Used Alcohol Use Standard Drinks/Week Comments Not Currently 0 (1 standard drink = 0.6 oz pure alcoho l) Sex Assigned at Date Recorded Not on file documented as of this encounter Miscellaneous Notes Telephone Encounter - Natalee March RN - 10/08/2021 2:07 PM EST Images from the original note were not included. Telephone Encounter - Natalee March RN - 10/08/2021 11:14 AM EST Images from the original note were not included. documented in this encounter Plan of Treatment Upcoming Encounters Date Type Specialty Care Team Description 04/14/2022 Office Visit Neurology Cameron Alves MD [facility] [address] [place], [place] [address] (Wo rk) documented as of this encounter Goals Goal Patient Goal Associated Recent Patient-Stated? Author Type Problems Progress DH Home Medication Patient No Kendrick ridley, Compliance and Facing Kan Restrepo, Understanding Action Plan [facility] Note: Formatting of this note might be [...]
--- OUTSIDE RECORDS SUMMARY | 2022-03-18 11:28 | XMS_ITS | Encounter Summary ---
:1970 Author Organization [facility] [place] [address] Care Team Providers Name Role Phone Lolis Moss MD Primary Care Provider Encounter Details Date Type Department Care Team Description 05/17/2020 TH Visit Gastroenterology at [facility] Haydee Santillan Dysphagia, (TeleHealth) [facility] [place] [address] [facility] [phone] [facility] [address] Social History Tobacco Use Types Packs/Day Years Used Date Current Every Day Smoker Cigarettes 0.5 15 Candelario t: 08/30/2017 Smokeless Tobacco: Never Used Alcohol Use Standard Drinks/Week Comments Not Currently 0 (1 standard drink = 0.6 oz pure alcoho l) Sex Assigned at Date Recorded Not on file documented as of this encounter Progress Notes Haydee Santillan PA - 05/17/2020 4:30 PM EDT GASTROENTEROLOGY TELEMEDICINE PROGRAM - ESTABLISHED PATIENT VISIT Chief Complaint: Lisseth Boone is a 49 [address] of Dr[address] Antonella gonzalez. provider found here for follow-up of dysphagia. Detailed history: Reports nausea and abdominal discomfort. She has been having dysphagia over the last several months. Occurs daily. Some regurgitation. No dysphagia to liquids Smokes marijuana to help her eat dinner. This helps her nausea She typically has a smoothie in the am and solid food in the afternoon Her weight fluctuates She was prescribed antiemetics, however this caused constipation Some early satiety Has lost some weight, currently stable Takes NSAIDs a few times per week Takes zegerid daily Interval history: She is Zegrid bid for GERD symptoms. Overall, she notes symptom improvement She avoids trigger foods She discontinued NSAIDs She is sleeping elevated Dysphagia has improved. She is working on dental issues to she can chew more effectively Review of systems: 14-point review of systems reviewed and negative except as above. Medications: Outpatient Medications Prior to Visit Medication Sig Dispense Refill ??? OLANZapine (ZyPREXA) 2.5 mg Tablet Take [...] to 90 days. 270 tablet 0 ??? montelukast (Singulair) 10 mg Tablet Take 1 tablet by mouth nightly. 30 tablet 2 ??? linaclotide (Linzess) 145 mcg Capsule Take [...] mg/mL Auto-Injector Inject 140 mg subcutaneously every 30 days. 1 mL 5 ??? albuterol 90 mcg/actuation HFA Aerosol Inhaler [...] by mouth daily. 30 tablet 11 No facility-administered medications prior to visit. Allergies: is allergic to hay fever and allergy relief [chlorpheniramine- phenylpropan]; pollen extracts; and unable to find [unclassified drug]. Past Medical History: has a past medical history of Back pain, Bipolar disorder, Bleeding disorder, Bowel disease, C1 cervical fracture, Cancer, Cervical cancer, Chronic kidney disease, Chronic migraine without aura, with intractable migraine, so stated, with status migrainosus, Depression, ELIANA (generalized anxiety disorder), GERD (gastroesophageal reflux disease), Hypertension, Liver disease, Mentalhealth problem, Metabolic acidosis, Motion sickness, Peptic ulcer disease, Psoriatic arthritis, Psychosis, Seizure, Syncope, TBI (traumatic brain injury), and Total body pain. Past Surgical History: has a past surgical history that includes Cervix surgery; Cholecystectomy; Tubal ligation; Colonoscopy, Biopsy (78533) (N/A, 02/11/2016); Upper Gi Endoscopy, Biopsy ([id number]) (N/A, 02/11/2016); ovarian cyst removal; Breast biopsy (Right, 2011); ovarian cyst removal (2004); Lap, Rmv Adnexal Structure (84697) (N/A, 09/22/2019); and Upper Gi Endoscopy, Biopsy ([id number]) (N/A, 12/27/2019). Family History: family history includes Abdominal Aortic Aneurysm (age of onset: 50) in her mother; Arthritis in her father; Breast Cancer (age of onset: 45) in her mother; Breast Cancer (age of onset:72) in her paternal grandmother; Migraines in her father; Ovarian Cancer (age of onset: 81) in her maternal grandmother. Social History: reports that she has been smoking cigarettes. She has a 7.50 pack-year smoking history. She has never used smokeless tobacco. She reports previous alcohol use. She reports current drug use. Frequency: 7.00 times per week. Drug: Marijuana. No Physical Examination performed during this telemedicine visit Laboratory studies, imaging, and procedures (my review of prior records): 24 HOUR pH/IMPEDANCE PROCEDURE NOTE 03/31/2020 Impression: Evidence of excessive acid reflux tested ON Prilosec 40mg qAM and 2mg qHS medication. Evidence of association between reflux and recorded symptoms of heartburn and possibly dysphagia, but not single episodes of cough or chest pain. No evidence of elevated reflux burden measured by impedance. ?? This study is consistent with breakthrough acid reflux despite proton pump inhibitor therapy. Consider assessing PPI compliance. HIGH-RESOLUTION ESOPHAGEAL MANOMETRY PROCEDURE NOTE Impressions based on [place] Classification v3.0: Normal esophageal motility. EGD December 2019 Impression: ?- Normal esophagus. Biopsied. ?- Erythematous mucosa in the gastric ?body and antrum. Biopsied. ?- Acquired duodenal stenosis. Assessment/Plan: Ms. Boone is a 49 y.o. patient with a history of heartburn and dysphagia. We reviewed her diagnostic studies to date. High-resolution esophageal manometry was normal. Her pH impedance did reveal excessive pathological acid despite twice daily PPI. She was taking NSAIDs at that time as well. Since her last appointment she has switched from omeprazole to Zegerid which she feels is controlling her symptoms more completely. She has also eliminated NSAIDs entirely. She feels overall her symptoms have significantly improved. We discussed continuing on this current regimen. Going forward we cancertainly consider repeat impedance to help determine whether Zegerid is effective. If she continuesto have trouble with pathological reflux we can certainly consider a surgical referral to discuss antireflux surgery. At this point, she is comfortable continuing on her current regimen. We will plan to see her back in follow-up in 6 months Patient verbally consents to this telephone visit and understands that this visit may be billed, similar to a clinic office visit. I provided care to the patient today via telephone call, 15 minutes telephone visit was spent in discussion with patient on above. LAR[place] [address] documented in this encounter Plan of Treatment Upcoming Encounters Date Type Specialty Care Team Description 04/14/2022 Office Visit Neurology Cameron Alves MD [facility] [address] [place] [address] (Wo rk) documented as of this encounter Goals Goal Patient Goal Associated Recent Patient-Stated? Author Type Problems Progress DH Home Medication Patient No Kendrick n, Compliance and Facing Kan Restrepo, Understanding Action Plan [facility] Note: Formatting of this note might be d ifferent from the original. Patient's specific desired goal: to have fewer headaches and to use less adjunct / rescue medication Measured by: calendar, frequency of use of adjunct / rescue meds Time-frame to meet goal: 90-150 days documented as of this encounter Visit Diagnoses Diagnosis Dysphagia, unspecified type documented in this encounter Care Teams Civil Preparedness Training Officer Relationship Specialty Start Date End Date Lolis Moss MD PCP - General General Internal Medicine 03/28/20 12/17/[address] [facility] [address] KARINA SALTER [place] [address] documented as of this encounter
--- OUTSIDE RECORDS SUMMARY | 2022-03-18 11:28 | XMS_ITS | Encounter Summary ---
:1970 Author Organization [place] [address] Care Team Providers Name Role Phone Unavailable Primary Care Provider Unavailable Encounter Details Date Type Department Care Team Description 02/08/2021 Notes Only Psychiatry and Behavioral Bobbi Hamilton MD Health at [facility] [place] [address] [place] [address] [phone] (Wo rk) Social History Tobacco Use Types Packs/Day Years Used Date Current Every Day Smoker Cigarettes 0.5 15 Candelario t: 08/30/2017 Smokeless Tobacco: Never Used Alcohol Use Standard Drinks/Week Comments Not Currently 0 (1 standard drink = 0.6 oz pure alcoho l) Sex Assigned at Date Recorded Not on file documented as of this encounter Progress Notes Bobbi Rojas MD - 02/08/2021 3:42 PM EDT Termination/Transfer note Treatment termination/transfer date: January 2021; last appt 12/20 Diagnosis: Chronic PTSD, ELIANA, MDD, TBI Brief formulation/assessment of patient: Lisseth Boone is a 50 y.o. Female with complex diagnostic picture encompassing MDD, ELIANA, cPTSD, TBI, r/o BPD. Has been dx with BPAD in the past related to episodes involving extreme mood lability and irritability that occur over the span of hours. 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 Unable to work within this role since 2012 until recently when got credential back in 2019. Lives with and their children; has two adult sons. ?? Summer 2019 made strides in mental health [...] increased utilization of depakote in this setting. ?? Assessment: Good control of anxiety, depression, irritability and mood swings in the setting of continued zyprexa taper with continued dose of depakote (current level 56). Unfortunately still not losing weight (sprained ankle and unable to exercise), but appetite in a bit better control. Good alliancewith therapy. Current medications: Current Outpatient Medications Medication Sig Dispense Refill ??? clonazePAM (KlonoPIN) 0.5 mg Tablet TAKE 1 TABLET BY MOUTH 3 TIMES DAILY NEEDED FOR ANXIETY FOR UP TO 90 DAYS 270 tablet 0 ??? SUMAtriptan (Imitrex) 100 mg Tablet Take one tablet at onset of migraine, may repeat in 2 hours if needed. No more than 2 tabs in 24 hours. Do not use more than 2 days per week. 9 tablet 3 ??? erenumab-aooe (Aimovig Autoinjector) 140 mg/mL Auto-Injector Inject 140 mg subcutaneously every 28 days. 1 Pen 11 ??? candesartan (Atacand) 16 mg Tablet Take 1 tablet by mouth every evening. 30 tablet 11 ??? topiramate (Topamax) 200 mg Tablet Take 1 tablet by mouth nightly. 30 tablet 11 ??? montelukast (Singulair) 10 mg [...] 4 times daily. 360 tablet 1 ??? SUMAtriptan-Naproxen 85-500 mg Tablet [...] No current facility-administered medications for this visit. 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 Suspected PTSD. Saw a psychiatrist in the late ; prescribed klonopin for anxiety at that time and was taking since. Was taken off this during , was put back on when done . Increased to a high of 2 mg TID. When weaned quickly had a bad withdrawal/DTs. ?? Prior medications trials: Lexapro - stopped long ago; was helpful Zyprexa - stopped while inpt at [facility] (and dx of delirium felt more likely than psychosis), but laterrestarted by PCP; felt it helped her mood swings Lamotrigine - stopped while inpt at [facility] (and dx of delirium felt more likely than psychosis or BPAD) [facility] Negative side effects Seroquel - does not recall as a helpful medication Trazodone - not helpful for insomnia @ 50 mg QHS Topamax - effective for seizures, additional 25 mg QAM dose not effective for mood stabilization Allergies: Allergies as of 02/08/2021 - Review Complete 01/07/2021 Allergen Reaction Noted ??? Hay fever and allergy relief [chlorpheniramine-phenylpropan] 02/26/2020 ??? Pollen extracts 05/26/2016 ??? Unable to find [unclassified drug] 12/22/2019 Brief treatment Summary: Started with this pt 06/2019 in setting of severe symptomatology. She was on duloxetine, trazodone and trazodone; we attempted a klonopin taper hower pt started to appear manicand disorganized in the Spring. She was having GI issues and using marijuana for this at times. We trialed depakote then zyprexa, with zyprexa seeming to have a great stabilizing effect on anxiety and mood lability. This was uptitrated. Initially used as a multiple times per day then scheduled TID-QID. Continued with this utilization until early 2020 when noted significant, untenable weight gain overthe past year likely associated with Zyprexa. Since that time have been tapering Z and uptirating VPA with continued psychiatric stability. Notable Treatment Events: had great effect for stabilization with zyprexa, work in therapy, credential to return to work summer 2019 Possible Future Considerations: continue to taper AP, BZD PRN however do so very slowly; has had great effect despite no likely bipolar process or primary psychosis, and severity of previous presentation made me comfortable with use of this regimens risk/benefits Clinician responsible for ongoing care: pending 5D resident documented in this encounter Plan of Treatment Upcoming Encounters Date Type Specialty Care Team Description 04/14/2022 Office Visit Neurology Cameron Alves MD [facility] [address] [place], [place] [address] (Wo rk) documented as of this encounter Goals Goal Patient Goal Associated Recent Patient-Stated? Author Type Problems Progress DH Home Medication Patient No Kendrick irdley, Compliance and Facing Kan Restrepo, Understanding Action Plan [facility] Note: Formatting of this note might be [...]
--- OUTSIDE RECORDS SUMMARY | 2022-03-18 11:28 | XMS_ITS | Encounter Summary ---
:1970 Author Organization [place] [place] [address] Care Team Providers Name Role Phone Lolis Moss MD Primary Care Provider Reason for Visit Reason Comments Medication Refill Encounter Details Date Type Department Care Team Description 05/30/2020 Refill Internal Medicine at [facility] Lolis seymour MD [facility] DR [address] [facility] [place] [address] [place] [address] [phone] (Wo rk) Social History Tobacco Use Types [...] Cameron Alves MD [facility] [address] [place] [address] (Wo rk) documented as of this encounter Goals Goal Patient Goal Associated Recent Patient-Stated? Author Type Problems Progress DH Home Medication Patient No Kendrick n, Compliance and Facing Kan Restrepo, Understanding Action Plan [facility] Note: Formatting of this note might be d ifferent from the original. Patient's specific desired goal: to have fewer headaches and to use less adjunct / rescue medication Measured by: calendar, frequency of use of adjunct / rescue meds Time-frame to meet goal: 90-150 days documented as of this encounter Visit Diagnoses Not on filedocumented in this encounter Care Teams Ward Nurse Relationship Specialty Start Date End Date Lolis Moss MD PCP - General General Internal Medicine 03/28/20 12/17/[address] [facility] [address] KARINA SALTER [facility] [place] [address] documented as of this encounter
--- OUTSIDE RECORDS SUMMARY | 2022-03-18 11:28 | XMS_ITS | Encounter Summary ---
:1970 Author Organization [facility] [place] [address] Care Team Providers Name Role Phone Lolis Moss MD Primary Care Provider Encounter Details Date Type Department Care Team Description 08/21/2020 Refill Psychiatry and Behavioral Health at [facility] [place] [address] Social History Tobacco Use Types Packs/Day Years Used Date Current Every Day Smoker Cigarettes 0.5 15 Candelario t: 08/30/2017 Smokeless Tobacco: Never Used Alcohol Use Standard Drinks/Week Comments Not Currently 0 (1 standard drink = 0.6 oz pure alcoho l) Sex Assigned at Date Recorded Not on file documented as of this encounter Miscellaneous Notes Addendum Note - Andrea Miguel RN - 08/21/2020 1:59 PM EST Addended by: ANDREA MIGUEL on: 08/21/2020 01:59 PM Modules accepted: Orders documented in this encounter Plan of Treatment Upcoming Encounters Date Type Specialty Care Team Description 04/14/2022 Office Visit Neurology Cameron Alves MD [facility] [address] [place] [address] (Wo rk) documented as of this encounter Goals Goal Patient Goal Associated Recent Patient-Stated? Author Type Problems Progress DH Home Medication Patient No Kendrick n, Compliance and Facing Kan Restrepo, Understanding Action Plan [facility] Note: Formatting of this note might be d ifferent from the original. Patient's specific desired goal: to have fewer headaches and to use less adjunct / rescue medication Measured by: calendar, frequency of use of adjunct / rescue meds Time-frame to meet goal: 90-150 days documented as of this encounter Visit Diagnoses Not on filedocumented in this encounter Care Teams Steel Placer Relationship Specialty Start Date End Date Lolis Moss MD PCP - General General Internal Medicine 03/28/20 12/17/20 [facility] [place] [address] documented as of this encounter
--- OUTSIDE RECORDS SUMMARY | 2022-03-18 11:28 | XMS_ITS | Encounter Summary ---
:1970 Author Organization [facility] [place] [address] Care Team Providers Name Role Phone Lolis Moss MD Primary Care Provider Reason for Visit Reason Onset Date Comments Medication Refill 08/30/2020 Encounter Details Date Type Department Care Team Description 08/30/2020 Refill Neurology at [facility] Cameron Alves MD [address] [facility] [place] [address] [place] [address] [phone] (Wo rk) Social History Tobacco Use Types [...] 04/14/2022 Office Visit Neurology Cameron Alves MD [facility] [address] [place] [address] (Wo rk) documented as of this encounter Goals Goal Patient Goal Associated Recent Patient-Stated? Author Type Problems Progress DH Home Medication Patient No Kendrick n, Compliance and Facing Kan Restrepo, Understanding Action Plan [facility] Note: Formatting of this note might be d ifferent from the original. Patient's specific desired goal: to have fewer headaches and to use less adjunct / rescue medication Measured by: calendar, frequency of use of adjunct / rescue meds Time-frame to meet goal: 90-150 days documented as of this encounter Visit Diagnoses Not on filedocumented in this encounter Care Teams Medical Apparatus Model Maker Relationship Specialty Start Date End Date Lolis Moss MD PCP - General General Internal Medicine 03/28/20 12/17/[address] [facility] [address] KARINA SALTER [facility] [place] [address] documented as of this encounter
--- OUTSIDE RECORDS SUMMARY | 2022-03-18 11:28 | XMS_ITS | Encounter Summary ---
:1970 Author Organization [facility] [place] [address] Care Team Providers Name Role Phone Lolis Moss MD Primary Care Provider Encounter Details Date Type Department Care Team Description 05/09/2020 Notes Only Obstetrics and Gynecology [place] [address] [place] [address] [phone] Social History Tobacco Use Types Packs/Day Years Used Date Current Every Day Smoker Cigarettes 0.5 15 Candelario t: 08/30/2017 Smokeless Tobacco: Never Used Alcohol Use Standard Drinks/Week Comments Not Currently 0 (1 standard drink = 0.6 oz pure alcoho l) Sex Assigned at Date Recorded Not on file documented as of this encounter Progress Notes Kathleen Bonilla MD - 05/09/2020 10:54 AM EDT Obgyn Note My[facility] message sent to Lisseth to review EMBx and TVUS results. Continued on Prempro s/p BSo with light bleeding. Recommend f/u with me in 4 months. Note sent to Obgyn secretary administrative assistant pool to schedule. Kathleen Bonilla MD documented in this encounter Plan of Treatment Upcoming Encounters Date Type Specialty Care Team Description 04/14/2022 Office Visit Neurology Cameron Alves MD [facility] [address] [place] [address] (Wo rk) documented as of this encounter Goals Goal Patient Goal Associated Recent Patient-Stated? Author Type Problems Progress DH Home Medication Patient No Kendrick n, Compliance and Facing Kan P, Understanding Action Plan [facility] Note: [...] on filedocumented in this encounter Care Teams Retail Sales Clerk Relationship Specialty Start Date End Date Lolis Moss MD PCP - General General Internal Medicine 03/28/20 12/17/[address] [facility] [address] KARINA [place] [address] documented as of this encounter
--- OUTSIDE RECORDS SUMMARY | 2022-03-18 11:28 | XMS_ITS | Encounter Summary ---
:1970 Author Organization [facility] [place] [address] Care Team Providers Name Role Phone Lolis Moss MD Primary Care Provider Encounter Details Date Type Department Care Team Description 07/01/2020 Telephone Neurology at [facility] Cameron Alves MD [address] [facility] [place] [address] [place] [address] [phone] (Wo rk) Social History Tobacco Use Types [...] Telephone Encounter - Natalee March RN - 07/01/2020 4:11 PM EST Appeal for Aimovig and office notes faxed to [facility]. documented in this encounter Plan of Treatment Upcoming Encounters Date Type Specialty Care Team Description 04/14/2022 Office Visit Neurology Cameron Alves MD [facility] [address] [place] [address] (Wo rk) documented as of this encounter Goals Goal Patient Goal Associated Recent Patient-Stated? Author Type Problems Progress DH Home Medication Patient No Kendrick ridley, Compliance and Facing Kan Restrepo, Understanding Action Plan [facility] Note: Formatting of this note might be d ifferent from the original. Patient's specific desired goal: to have fewer headaches and to use less adjunct / rescue medication Measured by: calendar, frequency of use of adjunct / rescue meds Time-frame to meet goal: 90-150 days documented as of this encounter Visit Diagnoses Not on filedocumented in this encounter Care Teams Legal Support Analyst Relationship Specialty Start Date End Date Lolis Moss MD PCP - General General Internal Medicine 03/28/20 12/17/20 [facility] [place] [address] documented as of this encounter
--- OUTSIDE RECORDS SUMMARY | 2022-03-18 11:28 | XMS_ITS | Encounter Summary ---
:1970 Author Organization [facility] [place] [address] Care Team Providers Name Role Phone Unavailable Primary Care Provider Unavailable Reason for Visit Reason Comments Medication Refill Encounter Details Date Type Department Care Team Description 02/09/2021 Refill Psychiatry and Bobbi Rojas, Depr ession, unspecified Behavioral Health at MD depression type [facility] [place] [address] [place] [address] [phone] Social History Tobacco Use Types Packs/Day Years [...] 04/14/2022 Office Visit Neurology Cameron Alves MD [facility] [place] [address] [place] [address] (Wo rk) documented as of [...]
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
--- OUTSIDE RECORDS SUMMARY | 2022-03-18 11:28 | XMS_ITS | Encounter Summary ---
:1970 [place] [address] Care Team Providers Name Role Phone Unavailable Primary Care Provider Unavailable Reason for Visit Reason Onset Date Comments Medication Refill 10/07/2021 Encounter Details Date Type Department Care Team Description 10/07/2021 Telephone Neurology at [facility] Cameron Alves MD Medication Refill [address] [facility] [place] [address] [place] [address] [phone] (Wo rk) Social History Tobacco Use Types [...] Encounter - Natalee March RN - 10/08/2021 11:17 AM EST Call made to [facility]. Spoke with the pharmacy messenger. They do have a prescription on file with refills for the Aimovig. However, the cost of the Aimovig is >$300. Suggested to the visitor services technician she make sure the patient has signed up for the copay card again this year. However, the card has changed and is now only paying $200 towards the cost of the Aimovig and thepatient is responsible for what her insurance does not cover. The visitor services technician will call the patient. Telephone Encounter - Hanna Vicente - 10/07/2021 2:08 PM EST Call Center / [place] Message Prescription Refill Request Clinical [place] message Provider patient sees in Clinic: Tony Alves Caller and relationship (if other than patient-full name): Lisseth Boone Call back Number: [phone] Ok to leave a message: yes Any issues needing to be addressed prior to medication refill? (ex: dose increase, not at pharmacy):yes. Patient states that she has been requesting a refill for a few months. This agent was unable tofind any encounters regarding this. Patient states she has been out for a few months and [facility] told her that she had no refill. Last prescription was for 11 refills in December 2020. Name of Med: erenumab-aooe (Aimovig Autoinjector) 140 mg/mL Auto-Injector Strength of Pills: 140 mg/mL Dosing Directions: Inject 140 mg subcutaneously every 28 days. How Patient is Currently Taking Medication: currently out 30 or 90 Day Supply: Pharmacy: [facility] in [place] Last Appointment: 12/2020 Next Appointment: (IF CALL IS FROM PATIENT/FAMILY AND THERE IS NO FOLLOW UP SCHEDULED REVIEW CHART TO SEE WHEN APPOINTMENT IS NEEDED AND SCHEDULE BEFORE SENDING MESSAGE) 04/14/22 next available. Is on cancellation list Is Patient out of Medication?: yes documented in this encounter Plan of Treatment Upcoming Encounters Date Type Specialty Care Team Description 04/14/2022 Office Visit Neurology Cameron Alves MD [facility] [address], [place] [address] (Wo rk) documented as of this encounter Goals Goal Patient Goal Associated Recent Patient-Stated? Author Type Problems Progress DH Home Medication Patient No Kendrick ridley, Compliance and Facing Kan P, Understanding Action Plan [facility] Note: Formatting of this note [...]
--- OUTSIDE RECORDS SUMMARY | 2022-03-18 11:28 | XMS_ITS | Encounter Summary ---
:1970 Author Organization [facility] [place] [address] Care Team Providers Name Role Phone Unavailable Primary Care Provider Unavailable Reason for Visit Reason Onset Date Comments Medication Refill 02/19/2021 Encounter Details Date Type Department Care Team Description 02/19/2021 Refill Neurology at [facility] Cameron Alves Ch ron migraine without Road aura, with intractable [address] [facility] migraine, so stated, [place] [address] with status migrainosus [phone] [place], [place] [address] (Wo rk) Social History Tobacco [...] 04/14/2022 Office Visit Neurology Cameron Alves MD [facility] er [address] [place], [place] [address] (Wo rk) documented as of this encounter Goals Goal Patient Goal Associated Recent Patient-Stated? Author Type Problems Progress DH Home Medication Patient No Kendrick n, Compliance and Facing Kan Restrepo, Understanding Action Plan [facility] Note: Formatting of this [...]
--- OUTSIDE RECORDS SUMMARY | 2022-03-18 11:28 | XMS_ITS | Encounter Summary ---
:1970 Author Organization [facility] [place] [address] Care Team Providers Name Role Phone Lolis Moss MD Primary Care Provider Reason for Visit Reason Comments Medication Refill Encounter Details Date Type Department Care Team Description 09/15/2020 Refill Psychiatry and Behavioral Hillary Cruz MD [facility] at [facility] [address] [place] [address] [place] [address] [phone] (Wo rk) Social History Tobacco Use Types [...] Office Visit Neurology Cameron Alves MD [facility] [address] [place], [place] [address] (Wo rk) documented as of [...] on filedocumented in this encounter Care Teams Supervisor Livestock Yard Relationship Specialty Start Date End Date Lolis Moss MD PCP - General General Internal Medicine 03/28/20 12/17/[address] [facility] [address] [facility] [place] [address] documented as of this encounter
--- OUTSIDE RECORDS SUMMARY | 2022-03-18 11:28 | XMS_ITS | Encounter Summary ---
:1970 Author Organization [facility] [place] [address] Care Team Providers Name Role Phone Unavailable Primary Care Provider Unavailable Reason for Visit Reason Comments Medication Refill Encounter Details Date Type Department Care Team Description 01/21/2021 Refill Psychiatry and Behavioral Duemli Bobbi greene MD [facility] [place] [address] [place] [address] [phone] (Wo rk) Social History Tobacco Use Types [...] Alves MD [facility] [address] [place] [address] (Wo rk) documented as of this encounter Goals Goal Patient Goal Associated Recent Patient-Stated? Author Type Problems Progress DH Home Medication Patient No Kendrick n, Compliance and Facing Kan Restrepo, Understanding Action Plan [facility] Note: Formatting of this note might [...]
--- OUTSIDE RECORDS SUMMARY | 2022-03-18 11:28 | XMS_ITS | Encounter Summary ---
:1970 Author Organization [facility] [place] [address] Care Team Providers Name Role Phone Travis Torres MD Primary Care Provider Reason for Visit Reason Comments Medication Refill Encounter Details Date Type Department Care Team Description 11/09/2020 Refill Psychiatry and Behavioral DueBobbi dill MD [facility] at [facility] [place] [address] [place] [address] [phone] (Wo rk) Social History Tobacco Use Types [...] MD [facility] [address] [place] [address] (Wo rk) documented as of this encounter Goals Goal Patient Goal Associated Recent Patient-Stated? Author Type Problems Progress DH Home Medication Patient No Kendrick n, Compliance and Facing Kan Restrepo, Understanding Action Plan [facility] Note: Formatting of this note might be d ifferent from the original. Patient's specific desired goal: to have fewer headaches and to use less adjunct / rescue medication Measured by: calendar, frequency of use of adjunct / rescue meds Time-frame to meet goal: 90-150 days documented as of this encounter Visit Diagnoses Not on filedocumented in this encounter Care Teams Stator Plate Washer Relationship Specialty Start Date End Date Travis Torres MD PCP - General Family Medicine 01/09/22 [place] [address] documented as of this encounter
--- OUTSIDE RECORDS SUMMARY | 2022-03-18 11:28 | XMS_ITS | Encounter Summary ---
:1970 Author Organization [facility] [place] [address] Care Team Providers Name Role Phone Lolis Moss MD Primary Care Provider Reason for Visit Reason Onset Date Comments Medication Refill 09/24/2020 Encounter Details Date Type Department Care Team Description 09/24/2020 Refill Psychiatry and Andrea Willis, unspecified Behavioral Health at , [place] [address] Social History Tobacco Use Types Packs/Day [...] 04/14/2022 Office Visit Neurology Cameron Alves MD [facility] [address] [place], [place] [address] (Wo rk) documented as of this encounter Goals Goal Patient Goal Associated Recent Patient-Stated? Author Type Problems Progress DH Home Medication Patient No Kendrick n, Compliance and Facing Kan Restrepo, Understanding Action Plan [facility] Note: Formatting of this note might [...] type documented in this encounter Care Teams Marking Room Supervisor Relationship Specialty Start Date End Date Lolis Moss MD PCP - General General Internal Medicine 03/28/20 12/17/20 [facility] DR KARINA SALTER [facility] [place] [address] documented as of this encounter
--- OUTSIDE RECORDS SUMMARY | 2022-03-18 11:28 | XMS_ITS | Encounter Summary ---
:1970 Author Organization [facility] [place] [address] Care Team Providers Name Role Phone Lolis Moss MD Primary Care Provider Encounter Details Date Type Department Care Team Description 11/21/2020 Refill Psychiatry and Behavioral Health [place] [address] Social History Tobacco Use Types Packs/Day Years Used Date Current Every Day Smoker Cigarettes 0.5 15 Candelario t: 08/30/2017 Smokeless Tobacco: Never Used Alcohol Use Standard Drinks/Week Comments Not Currently 0 (1 standard drink = 0.6 oz pure alcoho l) Sex Assigned at Date Recorded Not on file documented as of this encounter Miscellaneous Notes Addendum Note - Andrea Miguel RN - 11/22/2020 11:22 AM EDT Addended by: ANDREA MIGUEL on: 11/22/2020 11:22 AM Modules accepted: Orders Telephone Encounter - Tarsha Linares - 11/21/2020 4:47 PM EDT Pt needs a bridge refill on clonazepam because she only has 5 left to take her to tomorrow and the new mail order service she is using for her reills will not be here until Nicolas at the soonest. Her callback is [phone]. She was hoping for a call back after it was all set. Thank you documented in this encounter Plan of Treatment Upcoming Encounters Date Type Specialty Care Team Description 04/14/2022 Office Visit Neurology Cameron Alves MD [facility] [address] [place], [place] [address] (Wo rk) documented as of this encounter Goals Goal Patient Goal Associated Recent Patient-Stated? Author Type Problems Progress DH Home Medication Patient No Kendrick n, Compliance and Facing Kan Restrepo, Understanding Action Plan [facility] Note: Formatting of this note might be d ifferent from the original. Patient's specific desired goal: to have fewer headaches and to use less adjunct / rescue medication Measured by: calendar, frequency of use of adjunct / rescue meds Time-frame to meet goal: 90-150 days documented as of this encounter Visit Diagnoses Not on filedocumented in this encounter Care Teams Powder Nipper Relationship Specialty Start Date End Date Lolis Moss MD PCP - General General Internal Medicine 03/28/20 12/17/[address] [facility] [address] [place] [address] documented as of this encounter
--- OUTSIDE RECORDS SUMMARY | 2022-03-18 11:28 | XMS_ITS | Encounter Summary ---
:1970 Author Organization [facility] [place] [address] Care Team Providers Name Role Phone Lolis Moss MD Primary Care Provider Encounter Details Date Type Department Care Team Description 06/24/2020 Orders Only Psychiatry Bobbi Rojas MD [facility] [place] [phone] PSYCHIATRY [phone] [place], [place] [address] (Wo rk) Social History Tobacco [...] 04/14/2022 Office Visit Neurology Cameron Alves MD [facility] er [address] [address] (Wo rk) documented as of this encounter Goals Goal Patient Goal Associated Recent Patient-Stated? Author Type Problems Progress DH Home Medication Patient No Kendrick n, Compliance and Facing Kan Restrepo, Understanding Action Plan [facility] Note: Formatting of this note might be d ifferent from the original. Patient's specific desired goal: to have fewer headaches and to use less adjunct / rescue medication Measured by: calendar, frequency of use of adjunct / rescue meds Time-frame to meet goal: 90-150 days documented as of this encounter Visit Diagnoses Not on filedocumented in this encounter Care Teams Core Winder Machine Operator Relationship Specialty Start Date End Date Lolis Moss MD PCP - General General Internal Medicine 03/28/20 12/17/[address] [facility] [address] KARINA SALTER [facility] [address] documented as of this encounter
--- OUTSIDE RECORDS SUMMARY | 2022-03-18 11:28 | XMS_ITS | Encounter Summary ---
:1970 Author Organization [facility] [place] [address] Care Team Providers Name Role Phone Lolis Moss MD Primary Care Provider Reason for Visit Reason Onset Date Comments Medication Refill 11/11/2020 Encounter Details Date Type Department Care Team Description 11/11/2020 Refill Psychiatry and Behavioral [facility]itope Willis[facility] [place] [address] Social History Tobacco Use Types Packs/Day [...] 04/14/2022 Office Visit Neurology Cameron Alves MD [facility] [address] [place] [address] (Wo rk) documented as of this encounter Goals Goal Patient Goal Associated Recent Patient-Stated? Author Type Problems Progress DH Home Medication Patient No Kendrick ridley, Compliance and Facing Kan Restrepo, Understanding Action Plan [facility] Note: Formatting of this note might be d ifferent from the original. Patient's specific desired goal: to have fewer headaches and to use less adjunct / rescue medication Measured by: calendar, frequency of use of adjunct / rescue meds Time-frame to meet goal: 90-150 days documented as of this encounter Visit Diagnoses Not on filedocumented in this encounter Care Teams Managed Care Manager Relationship Specialty Start Date End Date Lolis Moss MD PCP - General General Internal Medicine 03/28/20 12/17/[address] [facility] [address] KARINA [place] [address] documented as of this encounter
--- OUTSIDE RECORDS SUMMARY | 2022-03-18 11:28 | XMS_ITS | Encounter Summary ---
:1970 Author Organization [facility] [place] [address] Care Team Providers Name Role Phone Unavailable Primary Care Provider Unavailable Reason for Visit Reason Onset Date Comments Medication Refill 03/24/2021 Encounter Details Date Type Department Care Team Description 03/24/2021 Refill Neurology at [facility] Cameron Alves Mi graine with aurkaty and Kolton FRANK without status [address] [place] [address] [address] mendes [phone] [place], [place] [address] (Wo rk) Social History Tobacco [...] Cameron Alves MD [facility] [address] [place], [place] [address] (Wo rk) documented as of [...] as of this encounter Visit Diagnoses Diagnosis Migraine with aura and without status mi grainosus, not intractable Migraine with aura, without mention of i ntractable migraine without mention of status migrainosus documented in this encounter
--- OUTSIDE RECORDS SUMMARY | 2022-03-18 11:28 | XMS_ITS | Encounter Summary ---
:1970 Author Organization [facility] [place] [address] Care Team Providers Name Role Phone Unavailable Primary Care Provider Unavailable Encounter Details Date Type Department Care Team Description 01/07/2021 TH Visit Neurology at Cameron oHdgson ic migraine without aura, with intractable migraine, so stated, with status migrainosus; (TeleHealth) Kolton Gimenez MD Migraine with aura and without status mi grainosus, not intractable [address] [facility] [address] [place] [address] [phone] Social History Tobacco Use Types Packs/Day Years Used Date Current Every Day Smoker Cigarettes 0.5 15 Candelario t: 08/30/2017 Smokeless Tobacco: Never Used Alcohol Use Standard Drinks/Week Comments Not Currently 0 (1 standard drink = 0.6 oz pure alcoho l) Sex Assigned at Date Recorded Not on file documented as of this encounter Progress Notes Cameron Alves MD - 01/07/2021 4:00 PM EDT Neurology Headache Center TeleHealth Visit 01-07-21 Last appointment: 06-18-20 Pain today: 0 Interval Headache Hx: This patient has recurrent psychosis with bipolar disorder, a chronic pain syndrome, &??chronic migraine. I prescribed erenumab, first dose 09-21-18, with prn ubrogepant, TRX, or eden. She started at 17 [facility]ER days, now down to 1-2 [facility] days per month, and eden works better. She is on 3 preventive medications, erenumab 140, candesartan 16, and TPM 200 mg. She has gone back to work, thanks to the erenumab! She gets out of the house and is more active. Shedoes have moderate constipation, treated with docusate. Her pcp checks her BP which has been fine. Patient Reported: MIDAS Responses 01/06/2021 Days missed school/work 5 Days productivity at work/school reduced 3 Days did not do household work 5 Days productivity related to housework reduced 3 Days missed family, social or leisure activities 5 Days had headache 5 Pain scale 3 MIDAS Score 21 (MIDAS grade IV, severe disability) MIDAS Adjusted Score - ?? Prior Treatments: TCAs ?1. Amitriptyline Neuroleptics ?2. [...] ?23. Bupropion Triptans ?24. Riza 5 ?25. Eden 100 ?TRX Misc ?26. Scopolamine ?27. APAP Supplements ?28. B2 ?29. Mag ?30. CoQ10 Narcotics ?31. Oxycodone ?32. Fentanyl ?33. Hydromorphone ?34. Hydrocodone SNRIs ?35. Duloxetine ?36. Venlafaxine WALESKA ?37. Lisinopril ARBs ?38. Candesartan SSRIs ?39. Sertraline MABs ?40. Erenumab Gepants 41. Ubrogepant ? New Health Issues: See HPI New Family History: no Past Medical History: Diagnosis Date ??? Back pain ??? Bipolar disorder ??? Bleeding disorder excessive bleeding during surgery/removal of cyst 2005 ??? Bowel disease possible chrohns; needs follow [...] Laterality Date ??? BREAST BIOPSY Right 2011 FA ??? CERVIX SURGERY ??? CHOLECYSTECTOMY ??? OVARIAN CYST REMOVAL right ??? OVARIAN CYST REMOVAL 2004 ??? PRO COLONOSCOPY, BIOPSY N/A 02/11/2016 COLONOSCOPY FLEXIBLE, WITH BX performed by David Hardy MD at [facility] ENDOSCOPY ??? PRO LAP, RMV ADNEXAL STRUCTURE N/A 09/22/2019 LAPAROSCOPY, REMOVAL OF ADNEXA (WRVU 11.35) performed by Polina Raymond MD at [facility] MAIN OR ??? PRO UPPER GI ENDOSCOPY, BIOPSY N/A 02/11/2016 UPPER GASTROINTESTINAL ENDOSCOPY,WITH BIOPSY SINGLE OR MULTIPLE performed by David Hardy MD at [facility] ENDOSCOPY ??? PRO UPPER GI ENDOSCOPY, BIOPSY N/A 12/27/2019 EGD WITH BIOPSY (WRVU 2.49) performed by Inocencia Kasper MD at [facility] ENDOSCOPY ??? TUBAL LIGATION Studies to Review: no Current Outpatient Medications on File Prior to Visit Medication Sig Dispense Refill ??? montelukast (Singulair) [...] Pet hair REVIEW OF SYSTEMS: See HPI Impression & plan: 1. Chronic migraine without aura, with intractable migraine, so stated, with status migrainosus She has >75% reduction in her migraine days per month with improved sumatriptan response and reduced use. She manages constipation with docusate. I will renew the erenumab, candesartan, TPM, and sumatriptan and see her yearly. AIMOVIG Follow Up [facility] Patient name: Lisseth Boone Date of : 1970 Patient Reported: MIDAS Responses 01/06/2021 Days missed school/work 5 Days productivity at work/school reduced 3 Days did not do household work 5 Days productivity related to housework reduced 3 Days missed family, social or leisure activities 5 Days had headache 5 Pain scale 3 MIDAS Score 21 (MIDAS grade IV, severe disability) MIDAS Adjusted Score - Date you began using Aimovi-6-19 How many months have you administered Aimovig 140 m How many migraine/headache days per month did you have BEFORE starting Aimovi How many migraine/headache days per month have you had SINCE starting Aimovi-2 Have you noticed that your headaches/migraines are not as severe since starting Aimovig: yes Have you used less of your abortive medications (triptans, NSAIDs, etc) since starting Aimovig: yes Are your abortive medications working better to abort migraines since starting Aimovig: sumatriptan works better Do you think the Aimovig is helping: Yes Side effects: moderate constipation Is the medication wearing off ? no Follow-up: 1 year I spent 40 minutes in this visit with 30 minutes devoted to TeleHealth patient counseling, in addition to prep time. Lisseth Boone gave verbal consent over the phone for this TeleHealth visit. The patient understandsthat this visit will be billed to their insurance, similar to a clinic visit. Cameron Alves MD documented in this encounter Plan of Treatment Upcoming Encounters Date Type Specialty Care Team Description 04/14/2022 Office Visit Neurology Cameron Alves MD [facility] [address] [place], [place] [address] (Wo rk) documented as of this encounter Goals Goal Patient Goal Associated Recent Patient-Stated? Author Type Problems Progress DH Home Medication Patient No Kendrick n, Compliance and Facing Kan P, Understanding Action Plan [facility] Note: Formatting of this note [...] actable migraine, so stated, with status migrainosus Migraine with aura and without status mi grainosus, not intractable Migraine with aura, without mention of i ntractable migraine without mention of status migrainosus documented in this encounter
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
--- OUTSIDE RECORDS SUMMARY | 2022-03-18 11:28 | XMS_ITS | Encounter Summary ---
:1970 Author Organization [facility] [place] [address] Care Team Providers Name Role Phone Lolis Moss MD Primary Care Provider Encounter Details Date Type Department Care Team Description 07/31/2020 Telephone [facility] [place] [address] Social History Tobacco Use Types Packs/Day [...] Alves MD [facility] [place] [address] (Wo rk) documented as of this encounter Goals Goal Patient Goal Associated Recent Patient-Stated? Author Type Problems Progress DH Home Medication Patient No Kendrick ridley, Compliance and Facing Kan Restrepo, Understanding Action Plan [facility] Note: Formatting of this note might be d ifferent from the original. Patient's specific desired goal: to have fewer headaches and to use less adjunct / rescue medication Measured by: calendar, frequency of use of adjunct / rescue meds Time-frame to meet goal: 90-150 days documented as of this encounter Visit Diagnoses Not on filedocumented in this encounter Care Teams Comber Fixer Relationship Specialty Start Date End Date Lolis Moss MD PCP - General General Internal Medicine 03/28/20 12/17/[address] [facility] [address] [place]AR[facility] [place] [address] documented as of this encounter
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
--- OUTSIDE RECORDS SUMMARY | 2022-03-18 11:28 | XMS_ITS | Encounter Summary ---
:1970 [place] [address] Care Team Providers Name Role Phone Lolis Moss MD Primary Care Provider Reason for Visit Reason Onset Date Comments Public Health Screening 07/31/2020 Encounter Details Date Type Department Care Team Description 07/31/2020 Telephone Public Health Sol Portillo [facility] Health Screening [facility] [place] [address] Social History Tobacco Use Types Packs/Day Years Used Date Current Every Day Smoker Cigarettes 0.5 15 Candelario t: 08/30/2017 Smokeless Tobacco: Never Used Alcohol Use Standard Drinks/Week Comments Not Currently 0 (1 standard drink = 0.6 oz pure alcoho l) Sex Assigned at Date Recorded Not on file documented as of this encounter Miscellaneous Notes Telephone Encounter - Sol Ly RN - 07/31/2020 11:56 AM EST Telephone call to pt to inform pt of NEGATIVE Covid-19 test results. Pt verbalizes understanding and will contact healthcare provider if any concerns or requires furthercare. documented in this encounter Plan of Treatment Upcoming Encounters Date Type Specialty Care Team Description 04/14/2022 Office Visit Neurology Cameron Alves MD [facility] [address] [place] [address] (Wo rk) documented as of [...] on filedocumented in this encounter Care Teams Automatic Mounter Relationship Specialty Start Date End Date Lolis Moss MD PCP - General General Internal Medicine 03/28/20 12/17/[address] [facility] [address] [facility] [place] [address] documented as of this encounter
--- OUTSIDE RECORDS SUMMARY | 2022-03-18 11:28 | XMS_ITS | Encounter Summary ---
:1970 [place] [address] Care Team Providers Name Role Phone Lolis Moss MD Primary Care Provider Reason for Visit Reason Comments Medication Refill Encounter Details Date Type Department Care Team Description 06/05/2020 Refill Neurology at [facility] Cameron Alves MD [address] [facility] [place] [address] [place] [address] [phone] (Wo rk) Social History Tobacco Use Types [...] 04/14/2022 Office Visit Neurology Cameron Alves MD [facility] [address] [place] [address] (Wo rk) documented as of this encounter Goals Goal Patient Goal Associated Recent Patient-Stated? Author Type Problems Progress DH Home Medication Patient No Kendrick n, Compliance and Facing Kan Restrepo, Understanding Action Plan [facility] Note: Formatting of this note might be d ifferent from the original. Patient's specific desired goal: to have fewer headaches and to use less adjunct / rescue medication Measured by: calendar, frequency of use of adjunct / rescue meds Time-frame to meet goal: 90-150 days documented as of this encounter Visit Diagnoses Not on filedocumented in this encounter Care Teams Actuarial Internship Relationship Specialty Start Date End Date Lolis Moss MD PCP - General General Internal Medicine 03/28/20 12/17/[address] [facility] [address] KARINA SALTER [facility] [place] [address] documented as of this encounter
--- OUTSIDE RECORDS SUMMARY | 2022-03-18 11:28 | XMS_ITS | Encounter Summary ---
:1970 Author Organization [facility] [place] [address] Care Team Providers Name Role Phone Travis Torres MD Primary Care Provider Reason for Visit Reason Comments Medication Refill Encounter Details Date Type Department Care Team Description 06/14/2021 Refill Psychiatry and Behavioral Slim Elizabeth MD [facility] at [facility] Madiha otoole [place] [address] [place] [address] [phone] (Wo rk) Social History Tobacco Use Types [...] 04/14/2022 Office Visit Neurology Cameron Alves MD [facility] [address] [place] [address] (Wo rk) documented as of [...] on filedocumented in this encounter Care Teams Underwater Photographer Relationship Specialty Start Date End Date Travis Torres MD PCP - General Family Medicine 01/09/22 [place] [id number] documented as of this encounter
--- OUTSIDE RECORDS SUMMARY | 2022-03-18 11:28 | XMS_ITS | Encounter Summary ---
:1970 [place] [address] Care Team Providers Name Role Phone Lolis Moss MD Primary Care Provider Encounter Details Date Type Department Care Team Description 06/19/2020 Telephone Neurology at [facility] Cameron Alves MD [address] [facility] [place] [address] [place] [address] [phone] (Wo rk) Social History Tobacco Use Types [...] Encounter - Lola Fernández CMA - 06/19/2020 9:41 AM EST Images from the original note were not included. documented in this encounter Plan of Treatment Upcoming Encounters Date Type Specialty Care Team Description 04/14/2022 Office Visit Neurology Cameron Alves MD [facility] [address] [place] [address] (Wo rk) documented as of this encounter Goals Goal Patient Goal Associated Recent Patient-Stated? Author Type Problems Progress DH Home Medication Patient No Kendrick n, Compliance and Facing Kan Restrepo, Understanding Action Plan [facility] Note: Formatting of this note might be d ifferent from the original. Patient's specific desired goal: to have fewer headaches and to use less adjunct / rescue medication Measured by: calendar, frequency of use of adjunct / rescue meds Time-frame to meet goal: 90-150 days documented as of this encounter Visit Diagnoses Not on filedocumented in this encounter Care Teams Journalists And Other Writers Relationship Specialty Start Date End Date Lolis Moss MD PCP - General General Internal Medicine 03/28/20 12/17/[address] [facility] [address] KARINA SALTER [facility] [place] [address] documented as of this encounter
--- OUTSIDE RECORDS SUMMARY | 2022-03-18 11:28 | XMS_ITS | Encounter Summary ---
:1970 Author Organization [facility] [place] [address] Care Team Providers Name Role Phone Unavailable Primary Care Provider Unavailable Encounter Details Date Type Department Care Team Description 10/31/2021 Hospital Encounter Mammography/DXA at Ishan Torres MD Encounter for [facility] [address] screening mammogram [facility] [place] [place] [address] [place], [place] [phone] (Work) [phone] Social History Tobacco Use Types Packs/Day Years Used Date Current Every Day Smoker Cigarettes 0.5 15 Candelario t: 08/30/2017 Smokeless Tobacco: Never Used Alcohol Use Standard Drinks/Week Comments Not Currently 0 (1 standard drink = 0.6 oz pure alcoho l) Sex Assigned at Date Recorded Not on file documented as of this encounter Medications at Time of Discharge Medication Sig Dispensed Refills Start Date End Date candesartan (Atacand) Take 1 tablet by mouth 90 tablet 0 16 mg daily. TabletIndications: Migraine with aura and without status migrainosus, not intractable SUMAtriptan (Imitrex) Take one tablet at 9 tablet 3 2020 100 mg onset of migraine, may TabletIndications: repeat in 2 hours if Chronic migraine needed. No more than 2 without aura, with tabs in 24 hours. Do intractable migraine, not use more than 2 so stated, with days per week. status migrainosus SUMAtriptan-Naproxen Take 1 tablet by mouth 9 tablet 11 10/2019 85-500 mg at onset of migraine, TabletIndications: may repeat after 2 Chronic migraine hours if needed. Max without aura, with of 2 tabs in 24 hours. intractable migraine, Max of 2 days per so stated, with week. Patient must be status migrainosus seen in follow up for further refills. cetirizine (ZyrTEC) Take 10 mg by mouth 0 10 mg Tablet daily. albuterol 90 INHALE 2 PUFFS EVERY 6 0 12/23/2019 mcg/actuation HFA HOURS NEEDED Aerosol Inhaler ondansetron (Zofran) Take 1 tablet by mouth 20 tablet 3 8 mg Tablet 2 times daily as needed for Nausea. omeprazole/sodium Take 1 tablet by mouth 0 bicarbonate (ZEGERID 2 times daily. ORAL) MAGNESIUM ORAL Take 1 tablet by mouth 0 daily. UBIDECARENONE Take 1 tablet by mouth 0 (COENZYME Q10 ORAL) daily. multivitamin Take 1 tablet by mouth 0 (THERAGRAN) Tablet daily. riboflavin, vitamin Take 1 tablet by mouth 30 tablet 11 11/15 B2, 100 mg daily. TabletIndications: Headache(784.0) clonazePAM (KlonoPIN) TAKE 1 TABLET BY MOUTH 270 tablet 0 12/08/2021 0.5 mg Tablet 3 TIMES DAILY NEEDED FOR ANXIETY topiramate (Topamax) Take 1 tablet by mouth 90 tablet 3 03/202101/14/2022 200 mg nightly. TabletIndications: Chronic migraine without aura, with intractable migraine, so stated, with status migrainosus divalproex EC TAKE 1 TABLET BY MOUTH 360 tablet 3 02/13/2021 01/05/2022 (Depakote) 250 mg 4 TIMES DAILY Tablet, Delayed Release (E.C.) DULoxetine DR TAKE 1 CAPSULE BY 180 capsule 3 02/11/2021 (Cymbalta) 60 mg MOUTH TWICE DAILY Capsule, Delayed Release(E.C.)Indicati ons: Depression, unspecified depression type erenumab-aooe Inject 140 mg 1 Pen 11 01/07/2021 01/21/20 22 (Aimovig subcutaneously every Autoinjector) 140 28 days. mg/mL Auto-InjectorIndicati ons: Chronic migraine without aura, with intractable migraine, so stated, with status migrainosus documented as of this encounter Plan of Treatment Upcoming Encounters Date Type Specialty Care Team Description 04/14/2022 Office Visit Neurology Cameron Alves MD [facility] [address] [place], [place] [address] (Wo rk) documented as of this encounter Goals Goal Patient Goal Associated Recent Patient-Stated? Author Type Problems Progress DH Home Medication Patient No Kendrick ridley, Compliance and Facing Kan Restrepo, Understanding Action Plan [facility] Note: Formatting of this note might be d ifferent from the original. Patient's specific desired goal: to have fewer headaches and to use less adjunct / rescue medication Measured by: calendar, frequency of use of adjunct / rescue meds Time-frame to meet goal: 90-150 days documented as of this encounter Procedures Procedure Name Priority Date/Time Associated Diagnosis Comme nts MAMMO SCREENING CAD Routine 10/31/2021 3:03 PM Encounter for R esults for this AND ARI BILATERAL EDT screening mammogram pr ocedure are in for breast cancer the result s section. documented in this encounter Results Mammo Screening Cad and Ari Bilateral (10/31/2021 3:03 PM EDT) Anatomical Region Laterality Modality Breast Bilateral Mammography Specimen (Source) Anatomical Location Collection Method / Collectio n Time Received Time / Laterality Volume Narrative 11/03/2021 9:10 AM EDT Bilateral mammography Reason for exam: routine /u 2018 Technique: CC and MLO views were obtaine d of each breast using standard 2-D mammography as well as 3-D tomosynthesis . Computer aided detection was used. Comparison: This is compared with prior images. Findings: The breasts are heterogeneousl y dense, which may obscure small masses. There are no suspicious microcalcificati ons, masses, or areas of distortion. The pattern is stable. Conclusion: No mammographic evidence of malignancy. Recommendation: Routine screening. BI-RADS Category 1: Negative * ??Regular screening mammograms startin g between age 40 and 50 reduces the risk of from breast cancer. * ??All screening tests have both risks and benefits. These risks and benefits should be assessed for each individual p atient through discussion with their provider to determine their preferred br east cancer screening schedule. * ??Women should report any breast lopez es to a health care provider right away. * ??Some women, because of their family history, a genetic tendency, or other factors, should be screened with annual breast MRI as well as with mammograms. (The number of women who fall into this category is very small). Patients and health care providers should discuss eac h patients history to decide if earlier screening and/or breast MRI are appropri ate. * ??Screening should continue as long as a woman is in good health and is expected to live 10 years or longer. * ??Screening mammography may not detect 10-15% of breast cancers. Thank you for letting us participate in the care of this patient. ??If you are a health care provider and have any questi ons regarding this report, please contact the number below. ??For patients who have questions please contact the health prompt care rn that requested your imaging first. ? Travis Torres MD IMG MAMMO ORDERABLES documented in this encounter Visit Diagnoses Diagnosis Encounter for screening mammogram for br east cancer documented in this encounter
--- OUTSIDE RECORDS SUMMARY | 2022-03-18 11:28 | XMS_ITS | Encounter Summary ---
:1970 Author Organization [facility] [place] [address] Care Team Providers Name Role Phone Lolis Moss MD Primary Care Provider Encounter Details Date Type Department Care Team Description 07/30/2020 [facility] COVID-19 ruled out [facility] [place] [address] Social History Tobacco Use Types Packs/Day [...] Neurology Cameron Alves MD [facility] [place] [address] (Wo rk) documented as of [...] Priority Date/Time Associated Diagnosis Comme nts COVID-19 PCR Routine 07/30/2020 11:26 AM COVID-19 ruled out Re sults for this EST procedure are i n the results section . documented in this encounter Results COVID-19 PCR (07/30/2020 11:26 AM EST) [facility] Method Time Signature SARS-CoV-2 Not Detected Not Detected DERICK RNA [facility] Comment: This result should be interpreted in com bination with the clinical observations, patient history and epidem iological information in making a final diagnosis. For testing of asymptomatic i ndividuals, assay performance characteristics and clinical utility hav e not been evaluated. Testing for SARS-CoV-2 (Severe acute respiratory syn drome coronavirus 2, formerly known as 2019 novel coronavirus or 2019-nCoV) to aid in the diagnosis of COVID-19 is performed using the [employer] S-CoV-2 Assay as authorized by the FDA Emergency Use Authorization (EUA). This EUA assay is intended for In-vitro Diagnostic (IVD) use with respiratory sp ecimens such as nasopharyngeal swabs collected from individuals during the ac amparo phase of infection. This assay is performed based on the instructions for use provided by [employer] and additional guidance provided by CDC and FDA. Testing is performed in the Clinical Genomics and [facility] y Laboratory within the Department of Pathology and Laboratory Medicine at [facility], certified under the Clinical Laboratory Improvement Amendments of 1988 (CLIA), 42 U.S.C. 263a, to perform high complexi ty tests. Assay performance has been verified according to clinical laborator y regulatory requirements for use with specimens collected from individuals paula pected of COVID-19. Test results are provided above. A result of ? Not Detected? indicates that the viral RNA target is not present above the limit of detect ion, but does not preclude SARS-CoV-2 infection. False negative results may oc cur if a specimen is improperly collected, transported or handled; if am plification inhibitors are present; or if inadequate numbers of viral particles are present in the specimen. When a diagnostic test is negative, the possibi lity of a false negative result should be considered in the context of a patien t? s recent exposures and the presence of clinical signs and symptoms consisten t with COVID-19. A result of ? Detected? indicates that RNA from SARS-CoV-2 was d etected and the patient is infected. As required or requested by public health a uthorities, positive specimens may be sent for additional testing. Positive an d negative predictive values for this test are highly dependent on disease pre valence. A result of ? Invalid? indicates that neither the viral RNA tar gets nor the internal control target was detected. An invalid result suggests the presence of inhibitors. Recollection and re-testing is recommend ed in the case of an invalid result. CDC COVID-19 criteria for testing on hum an specimens and clinical management guidance information are available at [facility] CDC Coronavirus Disease 2019 (COVID-19) webpage under ? Information for Healthcare Professionals? (https://www.cdc.gov/coronavirus/2019-nc ov/hcp/index.html) Additional information about this and ot her EUA tests can be found in provider and patient fact sheets at the following FDA website: https://www.fda.gov/medical-devices/vebdzaqibrh-zcynijr-7677-qfedf-41-qgghtukca- bjq-autfboyawftxml-pnzmdun-devices/cflxu-zcbierqnnpq-wsgd SARS-Cov-2 RNA Source [employer] Swab [facility] Specimen (Source) Anatomical Collection Method Collection Time Re ceived Time Location / / Volume Laterality Nasopharyngeal swab 07/30/2020 11:26 07/16 (specimen) AM EST 11:26 AM EST Comment: Symptoms->Fever / Respiratory S ymptoms Resulting Agency Comment Spec In Lab Lolis Moss MD MICROBIOLOGY - GENERAL ORDER TANNA Performing Organization Address City/State/[place] [address] documented in this encounter Visit Diagnoses Diagnosis COVID-19 ruled out documented in this encounter Care Teams Tumbler Dyeing Machine Operator Relationship Specialty Start Date End Date Lolis Moss MD PCP - General General Internal Medicine 03/28/20 12/17/[address] [facility] [address] [facility] [place] [address] documented as of this encounter
--- OUTSIDE RECORDS SUMMARY | 2022-03-18 11:28 | XMS_ITS | Encounter Summary ---
:1970 Author Organization [facility] [place] [address] Care Team Providers Name Role Phone Unavailable Primary Care Provider Unavailable Reason for Visit Reason Comments Medication Refill Encounter Details Date Type Department Care Team Description 07/30/2021 Refill Neurology at [facility] Cameron Alves Mi graine with aura and Kolton FRANK without status [address] [place] [address] [address] mendes [phone] [place], [place] [address] (Wo rk) Social History Tobacco [...] 04/14/2022 Office Visit Neurology Cameron Alves MD [facility] [place], [place] [address] (Wo rk) documented as of this encounter Goals Goal Patient Goal Associated Recent Patient-Stated? Author Type Problems Progress DH Home Medication Patient No Kendrick n, Compliance and Facing Kan Restrepo, Understanding Action Plan [facility] Note: Formatting of this note might [...]
--- OUTSIDE RECORDS SUMMARY | 2022-03-18 11:28 | XMS_ITS | Encounter Summary ---
:1970 Author Organization [facility] [place] [address] Care Team Providers Name Role Phone Lolis Moss MD Primary Care Provider Reason for Visit Reason Onset Date Comments Prior Authorization 07/04/2020 approval for aimovig Encounter Details Date Type Department Care Team Description 07/04[facility] Author[facility] Kolton FRANK (approval for aimovig) [address] [place] [address] [place], [place] [address] Social History Tobacco Use Types [...] Telephone Encounter - Tamara Hurtado RN - 07/04/2020 8:28 AM EST Images from the original note were not included. documented in this encounter Plan of Treatment Upcoming Encounters Date Type Specialty Care Team Description 04/14/2022 Office Visit Neurology Cameron Alves MD [facility] [address] [place] [address] (Wo rk) documented as of [...] on filedocumented in this encounter Care Teams Parking Inspector Relationship Specialty Start Date End Date Lolis Moss MD PCP - General General Internal Medicine 03/28/20 12/17/20 [facility] [address] [place] [place] [address] documented as of this encounter
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
--- OUTSIDE RECORDS SUMMARY | 2022-03-18 11:29 | XMS_ITS | Encounter Summary ---
:1970 Author Organization [facility] [address] Care Team Providers Name Role Phone Lolis Moss MD Primary Care Provider Encounter Details Date Type Department Care Team Description 01/22/2020 Notes Only Hematology and Oncology at Reggie Burnette MD [facility] Madiha otoole HEMATOLOGY/[place] [address] [place] [address] [phone] (Wo rk) Social History Tobacco Use Types Packs/Day Years Used Date Former Smoker Cigarettes 0 15 Quit: 08/30/19 18 Smokeless Tobacco: Never Used Alcohol Use Standard Drinks/Week Comments Not Currently 0 (1 standard drink = 0.6 oz pure alcoho l) Sex Assigned at Date Recorded Not on file documented as of this encounter Progress Notes Reggie Yang MD - 01/22/2020 4:14 PM EDT I have reviewed the patient's record and given personal and/or family history of cancer she should be seen by genetic counselor. This is scheduled for later this week. documented in this encounter Plan of Treatment Upcoming Encounters Date Type Specialty Care Team Description 04/14/2022 Office Visit Neurology Cameron Alves MD [facility] [place] [address] [place], [place] [address] (Wo rk) documented as of this encounter Goals Goal Patient Goal Associated Recent Patient-Stated? Author Type Problems Progress DH Home Medication Patient No Kendrick ridley, Compliance and Facing aKn Restrepo, Understanding Action Plan [facility] Note: Formatting of this note might be d ifferent from the original. Patient's specific desired goal: to have fewer headaches and to use less adjunct / rescue medication Measured by: calendar, frequency of use of adjunct / rescue meds Time-frame to meet goal: 90-150 days documented as of this encounter Visit Diagnoses Not on filedocumented in this encounter Care Teams Conference Assistant Relationship Specialty Start Date End Date Lolis Moss MD PCP - General General Internal Medicine 04/15/16 [address] [facility] [address] [facility] [place] [address] documented as of this encounter
--- OUTSIDE RECORDS SUMMARY | 2022-03-18 11:29 | XMS_ITS | Encounter Summary ---
:1970 Author Organization [place] [address] Care Team Providers Name Role Phone Lolis Moss MD Primary Care Provider Reason for Visit Reason Comments Genetic Evaluation Consultation (Routine) - Specialty Diagnoses / Procedures Referred By Contact Refer red To Contact Hematology and Oncology Diagnoses Abnormal uterine bleeding Esha Simmons MD [facility] Hem Onc 3k [facility] [address] [facility] [place], [place] GYNECOLOGY [address] [place] [address] Referral ID Status Reason Start Date Expiration Date Visits V isits Requested Authorized [id number] Consult, 07/27/2019 07/26/2020 1 1 Test & Treat Encounter Details Date Type Department Care Team Description 01/24/2020 TH Visit Hematology and Polly Theodore, Family hist ory of breast cancer in first degree relative; (TeleHealth) Oncology at [facility] Family history of ovarian cancer [facility] [address] [place] HEMATOLOGY/[place] [address] G[place] DEPT. [phone] [place], [place] [address] Social History Tobacco Use Types Packs/Day Years Used Date Former Smoker Cigarettes 0 15 Quit: 08/30/19 18 Smokeless Tobacco: Never Used Alcohol Use Standard Drinks/Week Comments Not Currently 0 (1 standard drink = 0.6 oz pure alcoho l) Sex Assigned at Date Recorded Not on file documented as of this encounter Progress Notes Polly Theodore LGC - 01/24/2020 1:00 PM EDT Lisseth Boone was seen by PARKER Keys in consultation at the request of Esha Simmons to advise regarding possible heritable predisposition to cancer. Due to COVID-19 restrictions this was a phone consult. I spent 33 minutes of this telephone encounter with the patient gathering medical and family historyand discussing the likelihood of a genetic predisposition to cancer and the option of genetic testing. Reason for referral/Chief complaint Family history of breast and ovarian cancer Medical history Cancer hx and treatment: No personal history of cancer. Has had ongoing breast concerns with benign imaging. Had a BSO in September 2019 due to mass, pathology was benign with cysts. Age at 1st menses: 16 Age at 1st child: 22 Menopause status: post menopause due to BS0 Hormone replacement therapy use: Combined HRT currently. Current cancer screening: Had a benign 2D mammogram in July 2019. Colonoscopy in 2015 done due to abdominal pain and diarrhea was essentially normal. Family History of Cancer Problem Relation Age of Onset ??? Breast Cancer Mother 45, at age 50 from abdominal aortic aneurysm ??? Ovarian Cancer Maternal Grandmother 81 ??? Breast Cancer, bilateral Paternal Grandmother 72 Maternal ethnic background is Bulgarian, Croatian, . Paternal ethnic background is [place], [place]ian, . Genetic risk assessment Based on the family history of her mother having had breast cancer at age 45 and her maternal grandmother with ovarian cancer, the likelihood that Lisseth would be found to have a mutation in a cancer predisposition gene is high enough to offer the option of genetic testing. We discussed that ideally we would want to test a family member with cancer first to determine whether there is an identifiablegenetic mutation. Since both Lisseth's mother and grandmother are , this is not possible. IfLisseth's study is negative she is aware that this will be considered an uninformative negative and we will suggest testing of other family members including her maternal half brother and her mother's sister to potentially help us interpret her test result. Panel genetic testing for an inherited predisposition to cancer, including breast, ovarian and othercancers was discussed. The risks, benefits and limitations of panel genetic testing were reviewed, specifically a high rate of identifying a variant of uncertain significance, lack of knowledge of cancer risk for newly identified, moderate risk genes included in the panel and lack of effective screening, as well as cancer risk for other cancers not observed in the family. Lisseth opted for testing with [employer] Multi-Cancer Panel, a next generation sequencing panel that simultaneously aninalyzes 84genes, including BRCA1 and BRCA2, that contribute to increased risk for cancer. Lisseth gave verbal consent for testing. I will be mailing the consent forms to Lisseth to completeand return to me. Radha will send a saliva collection kit with prepaid return envelope directly Amparo's home to obtain a sample. Instructions for sample collection and return are provided withinthe kit. Once the sample is received by the lab, testing will take up to 3 weeks. Lisseth will be contacted via telephone once her test results become available. If positive, we will offer a follow-up appointment. At that time, we will discuss with Lisseth the implications that this test result may have for her, as well as her family members. We will also provide Lisseth with screening guidelines for cancer prevention and early detection, as well as answer any questions she may have. documented in this encounter Plan of Treatment Upcoming Encounters Date Type Specialty Care Team Description 04/14/2022 Office Visit Neurology Cameron Alves MD [facility] [address] [place], [place] [address] (Wo rk) Scheduled Referrals Name Type Priority Associated Diagnoses Order S chedule Referral to Outpatient Referral Routine Abnormal uterine Orde red: Genetics bleeding 07/27/2019 documented as of this encounter Goals Goal Patient Goal Associated Recent Patient-Stated? Author Type Problems Progress DH Home Medication Patient No Kendrick ridley, Compliance and Facing Kan Restrepo, Understanding Action Plan [facility] Note: Formatting of this note might be d ifferent from the original. Patient's specific desired goal: to have fewer headaches and to use less adjunct / rescue medication Measured by: calendar, frequency of use of adjunct / rescue meds Time-frame to meet goal: 90-150 days documented as of this encounter Visit Diagnoses Diagnosis Family history of breast cancer in first degree relative Family history of malignant neoplasm of breast Family history of ovarian cancer Family history of malignant neoplasm of ovary documented in this encounter Care Teams Crime Prevention Police Officer Relationship Specialty Start Date End Date Lolis Moss MD PCP - General General Internal Medicine 04/15/16 0 [facility] [address] [facility] [place] [address] documented as of this encounter
--- OUTSIDE RECORDS SUMMARY | 2022-03-18 11:29 | XMS_ITS | Encounter Summary ---
:1970 [place] [address] Care Team Providers Name Role Phone Lolis Moss MD Primary Care Provider Encounter Details Date Type Department Care Team Description 04/02/2020 Notes Only Neurology at [facility] Cameron Alves MD [address] [place] [address] [place], [place] [id number] [phone] (Wo rk) Social History Tobacco Use Types Packs/Day Years Used Date Former Smoker Cigarettes 0 15 Quit: 08/30/19 18 Smokeless Tobacco: Never Used Alcohol Use Standard Drinks/Week Comments Not Currently 0 (1 standard drink = 0.6 oz pure alcoho l) Sex Assigned at Date Recorded Not on file documented as of this encounter Progress Notes Cameron Alves MD - 04/02/2020 3:15 PM EDT Notes Only 04-02-20 Pt was scheduled for a TeleHealth appointment today and did not make contact. These notes were prepared for that appointment. Last appointment: 11/23/19 Headache Hx: This patient has recurrent psychosis with bipolar disorder, a chronic pain syndrome, chronic migraine, and has had at least 41 medication trials. I prescribed erenumab, first dose09-21-18. I prescribed ubrogepant for her in November. Prior Treatments: TCAs ?1. Amitriptyline Neuroleptics ?2. [...] Sertraline MABs ?40. Erenumab Gepants 41. Ubrogepant ?? Past Medical History: Diagnosis Date ??? Back [...] BX performed by David Hardy MD at [facility] ENDOSCOPY ??? PRO LAP, RMV ADNEXAL STRUCTURE N/A 09/22/2019 LAPAROSCOPY, REMOVAL OF ADNEXA (WRVU 11.35) performed by Polina Raymond MD at [facility] MAIN OR ??? PRO UPPER GI ENDOSCOPY, BIOPSY N/A 02/11/2016 UPPER GASTROINTESTINAL ENDOSCOPY,WITH BIOPSY SINGLE OR MULTIPLE performed by David Hardy MD at [facility] ENDOSCOPY ??? PRO UPPER GI ENDOSCOPY, BIOPSY N/A 12/27/2019 EGD WITH BIOPSY (WRVU 2.49) performed by Inocencia Kasper MD at [facility] ENDOSCOPY ??? TUBAL LIGATION Allergies Allergen Reactions ??? Hay Fever And Allergy Relief [Chlorpheniramine-Phenylpropan] ??? Pollen Extracts ??? Unable To Find [Unclassified Drug] Pet hair Cameron Alves MD documented in this encounter Plan of Treatment Upcoming Encounters Date Type Specialty Care Team Description 04/14/2022 Office Visit Neurology Cameron Alves MD [facility] [place], [place] [address] (Wo rk) documented as of this encounter Goals Goal Patient Goal Associated Recent Patient-Stated? Author Type Problems Progress DH Home Medication Patient No Kendrick ridley, Compliance and Facing Kan Restrepo, Understanding Action Plan [facility] Note: Formatting of this note might be d ifferent from the original. Patient's specific desired goal: to have fewer headaches and to use less adjunct / rescue medication Measured by: calendar, frequency of use of adjunct / rescue meds Time-frame to meet goal: 90-150 days documented as of this encounter Visit Diagnoses Not on filedocumented in this encounter Care Teams E Commerce Strategist Relationship Specialty Start Date End Date Lolis Moss MD PCP - General General Internal Medicine 03/28/20 12/17/[address] [facility] [address] [place] [address] documented as of this encounter
--- OUTSIDE RECORDS SUMMARY | 2022-03-18 11:29 | XMS_ITS | Encounter Summary ---
:1970 Author Organization [facility] Address [address] [place] [address] Care Team Providers Name Role Phone Lolis Moss MD Primary Care Provider Reason for Visit Reason Comments Medication Check primpro - severe night sweat s at night Other dificulties chewing, wonderi ng if recent testing results are back. Abscess Encounter Details Date Type Department Care Team Description 01/31/2020 TH Visit Internal Medicine at Lolis Moss Vas omotor phenomenon; (TeleHealth) Louise Gimenez MD Seasonal allergic rhinitis due to pollen ; [address] [facility] Poor dentition [place], [place] CENTER [address] [facility] [address] [phone] PRIMARY CARE [place], [place] [address] Social History Tobacco Use Types Packs/Day Years Used Date Former Smoker Cigarettes 0 15 Quit: 08/30/19 18 Smokeless Tobacco: Never Used Alcohol Use Standard Drinks/Week Comments Not Currently 0 (1 standard drink = 0.6 oz pure alcoho l) Sex Assigned at Date Recorded Not on file documented as of this encounter Progress Notes Dawn Carmen CMA - 01/31/2020 8:40 AM EDT Patient contacted at [phone] Preferred phone: [phone] Patient confirms location for visit as: [place] (not eligible for telehealth visit if outside of [place] & should reschedule when back) Home address: [address] [place] [phone] If phone visit: patient verbally consents to this telephone visit and understands that this visit may be billed, similar to a clinic office visit. Patient is OK with possibility of a medical student involved in their care Medications were reconciled. Allergies were reviewed. Health Maintenance was reviewed and pended forprovider review. Chief complaint was updated. Patient was informed provider could be earlier or later than scheduled time, typically within 15 minutes of scheduled. If the pre-call was done 2 weeks before appt date, ask the Patient when would be a good time to callback on the day before the appt, so we can make sure nothing has changed: N/A Questionnaires administered and results (can pull in with .Q(questionnaire)) Please place an X in the box if the questionnaire was assigned [] Pediatric well visit questionnaire(s) - Bright futures, M-Chat (18/24 mo) [] Pediatric Smart Set for well visits (add AVS) [] PHQ-9, ELIANA-7, (depression/anxiety) AUDIT (alcohol) for behavioral health issues as relevant to visit (med check / well visits) and on patient problem list [] BAM (Brief addiction monitor) for MAT visit for buprenorphine [] FALLS questionnaire for hospital follow-up, new medicaid pt [] CCSA for non-AWV preventive visits, new medicaid [] AWV questionnaire for Annual Wellness Visits [] CHIROPRACTIC Questionnaire [x] NONE Please ask the Patient if they have any of these tools available: If patients do have these tools please ask them to take their vitals prior to the provider visit. Please place an X in the box if they have the following, [x] Scale [x] BP Cuff [] Pulse Oximeter [x] Thermometer Many people are experiencing financial stress, loss of health insurance, difficulty accessing enough food, or other concerns as a result of the coronavirus pandemic. Would you be interested in a phonecall from one of our community health workers to discuss resources we can help you with? [] YES (if yes, LESLY sends staff message to [facility] that says LESLY previsit referral) [x] NO Lolis Terry MD - 01/31/2020 8:40 AM EDT Telehealth visit SHANON 21 She is in [place], [place] I am in [place], [place] Discussed visit will be billed Wanted to discuss estrogen replacement She is waking up over night with sweats And hard to get back to sleep And then will over sleep If she takes a nap with wake drenched in sweat She is not taking singulair--concerned it bothers the esophagus She has been on Deven D (I had thought regular Deevn We talked about the pseudoephedrine--having stimulant properties Which may contribute to blood pressure, and poor sleep Has long standing allergies, has done well with the Deven D Likes to get up at 5 or 6, do yoga And be ready for the day And going back to work worries that she will over sleep Some vaginal dryness Bladder--had some incontinence, has been working on Kegels Planning dental work Will need all the upper teeth to come out Has a visit with the oral surgeon 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 Will increase the prempro to 0.45/1.5 to see if that helps with the hot flashes at night and sleep 2. We talked about the pseudoephedrine had not realized the possible effects of that Suggested she try the plain deven and only add the pseudoephedrine in when needed 3. Glad she is getting the dental work done 4. Glad she is getting back to work documented in this encounter Plan of Treatment Upcoming Encounters Date Type Specialty Care Team Description 04/14/2022 Office Visit Neurology Cameron Alves MD [facility] [address] [address] (Wo rk) documented as of this [...] as of this encounter Visit Diagnoses Diagnosis Vasomotor phenomenon Syncope and collapse Seasonal allergic rhinitis due to pollen Poor dentition Unspecified disorder of the teeth and gayle pporting structures documented in this encounter Care Teams Senior Svp Relationship Specialty Start Date End Date Lolis Moss MD PCP - General General Internal Medicine 04/15/16 [address] [facility] [address] [place] [facility] [place] [address] documented as of this encounter
--- OUTSIDE RECORDS SUMMARY | 2022-03-18 11:29 | XMS_ITS | Encounter Summary ---
:1970 Author Organization [facility] [address] Care Team Providers Name Role Phone Lolis Moss MD Primary Care Provider Encounter Details Date Type Department Care Team Description 01/06/2020 Orders Only Psychiatry Bobib Rojas MD [facility] [place] [address] PSYCHIATRY [phone] [place], [place] [address] (Wo rk) Social History Tobacco [...] Office Visit Neurology Cameron Alves MD [facility] [place] [address] (Wo rk) documented as of this encounter Goals Goal Patient Goal Associated Recent Patient-Stated? Author Type Problems Progress DH Home Medication Patient No Kendrick ridley, Compliance and Facing Kan Restrepo, Understanding Action Plan [facility] Note: Formatting of this note might be d ifferent from the original. Patient's specific desired goal: to have fewer headaches and to use less adjunct / rescue medication Measured by: calendar, frequency of use of adjunct / rescue meds Time-frame to meet goal: 90-150 days documented as of this encounter Visit Diagnoses Not on filedocumented in this encounter Care Teams Market Master Relationship Specialty Start Date End Date Lolis Moss MD PCP - General General Internal Medicine 04/15/16 [address] [facility] [address] [place] [place] [address] documented as of this encounter
--- OUTSIDE RECORDS SUMMARY | 2022-03-18 11:29 | XMS_ITS | Encounter Summary ---
:1970 Author Organization [facility] [place] [address] Care Team Providers Name Role Phone Lolis Moss MD Primary Care Provider Reason for Referral Diagnostic Test (Routine) - Closed Specialty Diagnoses / Procedures Referred By Contact Refer red To Contact Radiology Diagnoses Dysphagia, unspecified type Jacque, LARON Raygoza [facility] Rad Xray Procedures XR Fluoro Barium Swallow [facility] 1 [facility] [place] [address] [place] [address] Referral ID Status Reason Start Date Expiration Date Visits V isits Requested Authorized [id number] Closed Specialty 01/03/2020 07/05/2021 1 1 Service Requested Reason for Visit Diagnostic Test (Routine) - Closed Specialty Diagnoses / Procedures Referred By Contact Refer red To Contact Radiology Diagnoses Dysphagia, unspecified type JacqueHaydee PA [facility] Rad Xray Procedures XR Fluoro Barium Swallow [facility] [address] [place] [address] [place] [address] [place] [address] Referral ID Status Reason Start Date Expiration Date Visits V isits Requested Authorized [id number] Closed Specialty 01/03/2020 07/05/2021 1 1 Service Requested Encounter Details Date Type Department Care Team Description 01/05/2020 [address] En[place] [facility] Akira Mittal Dysphagia, [address] Beth MD unspecified type [facility] [address] CENTER [phone] [place] [address] Social History Tobacco Use Types Packs/Day Years [...] Sig Dispensed Refills Start Date End Date albuterol 90 INHALE 2 PUFFS EVERY 6 0 12/23/2019 mcg/actuation HFA HOURS NEEDED Aerosol Inhaler ondansetron (Zofran) 8 Take 1 tablet by mouth 20 tablet 3 0 01/01/2020 mg Tablet 2 times daily as needed [...] 11/15 B2, 100 mg daily. TabletIndications: Headache(784.0) erenumab-aooe (Aimovig Inject 140 mg 1 mL 5 01/05/2020 06/05/2020 Autoinjector) 140 subcutaneously every mg/mL Auto-Injector 30 days. ubrogepant (Ubrelvy) Take 100 mg by mouth 10 tablet 13 12/3101/07/2021 100 mg as needed. TabletIndications: Chronic migraine without aura, with intractable migraine, so stated, with status migrainosus candesartan (Atacand) Take 1 tablet by mouth 90 tablet 1 05/07/2020 16 mg every evening. TabletIndications: Migraine with aura and without status migrainosus, not intractable OLANZapine (ZyPREXA) Take 1 tablet by mouth 90 tablet 0 06/202001/15/2020 2.5 mg Tablet nightly. chlorhexidine Take 15 mLs by mouth 2 250 mL 0 12/12/2019 01/29/2020 (PERIDEX) 0.12 % times daily. Mouthwash varenicline (Chantix) Take by mouth with 53 tablet 0 201906/18/2020 0.5 mg meals. Days 1-3: 0.5 TabletIndications: mg ONCE daily. Days Smoking 4-7: 0.5 mg TWICE daily. Day 8 until the end of treatment: 1 mg TWICE daily. clonazePAM (KlonoPIN) Take 1 tablet by mouth 270 tablet 0 02/26/2020 0.5 mg Tablet 3 times daily as needed for Anxiety for up to 90 days. topiramate (Topamax) Take 1 tablet by mouth 90 tablet 1 01/202001/15/2020 25 mg Tablet every morning. montelukast Take 1 tablet by mouth 30 tablet 2 11/27/2019 0 01/31/2020 (Singulair) 10 mg nightly. Tablet traZODone (Desyrel) 50 Take 1 tablet by mouth 90 tablet 0 0 11/09/2019 01/15/2020 mg Tablet nightly. estrogen, Take 1 tablet by mouth 90 tablet 0 10/30/2019 conjugated,-medroxyPRO daily for 30 days. GESTERone (PREMPRO) 0.3-1.5 mg Tablet ibuprofen Take 1 tablet by mouth 30 tablet 12 09/22/2019 (Advil;Motrin) 600 mg every 6 hours as Tablet needed for Pain. DULoxetine (CYMBALTA) Take 1 capsule by 60 capsule 3 019 01/15/2020 60 mg Capsule, Delayed mouth 2 times daily. Release(E.C.)Indicatio ns: Depression, unspecified depression type topiramate (TOPAMAX) Take 1 tablet by mouth 90 tablet 3 12/201801/22/2020 200 mg Tablet nightly. baclofen (LIORESAL) 20 Take 0.5 tablets by 270 tablet 3 0610/201806/18/2020 mg TabletIndications: mouth 3 times daily as Fibromyalgia, needed. Psoriatic arthritis documented as of this encounter Plan of Treatment Upcoming Encounters Date Type Specialty Care Team Description 04/14/2022 Office Visit Neurology Cameron Alves MD [facility] [place], [place] [address] (Wo rk) documented as of this encounter Goals Goal Patient Goal Associated Recent Patient-Stated? Author Type Problems Progress Home Medication Patient No Kendrick n, Compliance and Facing Kan Restrepo, Understanding Action Plan [facility] Note: Formatting of this note might be d ifferent from the original. Patient's specific desired goal: to have fewer headaches and to use less adjunct / rescue medication Measured by: calendar, frequency of use of adjunct / rescue meds Time-frame to meet goal: 90-150 days documented as of this encounter Procedures Procedure Name Priority Date/Time Associated Diagnosis Comme nts XR FLUORO BARIUM Routine 01/05/2020 4:05 PM Dysphagia, Resul ts for this SWALLOW (SINGLE EDT unspecified type procedur e are in CONTRAST) the results section. documented in this encounter Results XR Fluoro Barium Swallow (01/05/2020 4:05 PM EDT) Anatomical Region Laterality Modality N/A Radio Fluoroscopy Specimen (Source) Anatomical Location Collection Method / Collectio n Time Received Time / Laterality Volume Impressions 01/05/2020 4:55 PM EDT Normal double contrast esophagram. I have personally reviewed the image(s) and the resident's interpretation and agree with the findings, Tushar Samuels at 01/05/2020 4:55 PM Thank you for letting us participate in the care of this patient. For questions regarding this report, please contact e number below. ? Narrative 01/05/2020 4:55 PM EDT EXAMINATION: XR FLUORO BARIUM SWALLOW SINGLE CONTRAST CLINICAL HISTORY: dysphagia with tablet TECHNIQUE: Double contrast esophagram was performed which included rapid sequence imaging of the pharynx during swallowing in AP a nd lateral projection.. Fluoroscopic spot films were obtained. Fluoro time: 1.75 minutes COMPARISON: Chest radiograph dated 10/31/[address] chest dated 04/27/2019 FINDINGS: The blood tester fowl view of the abdomen reveals a large amount of stool in the colon which could suggest constipation. No evidence of bowel obstruction. There are surgical clips in the right upper quadrant presum ably related to a cholecystectomy. The lung bases are clear. The esophagus is normal in course and ca liber, and is well distended on double contrast views. ??The mucosal pattern is normal. The gastroesophageal junction is normall y positioned. Esophageal peristalsis is normal. No gastroesophageal reflux was elicited with provocative maneuvers. A 12 mm barium tablet passed through to the stomach without delay. Procedure Note Tushar Samuels MD - 01/05/2020Format ting of this note might be different from the original. EXAMINATION: XR FLUORO BARIUM SWALLOW SI NGLE CONTRAST CLINICAL HISTORY: dysphagia with tablet TECHNIQUE: Double contrast esophagram was performed which included rapid sequence imaging of the pharynx during swallowing in AP a nd lateral projection.. Fluoroscopic spot films were obtained. Fluoro time: 1.75 minutes COMPARISON: Chest radiograph dated 10/31/[address] chest dated 04/27/2019 FINDINGS: The blood tester fowl view of the abdomen reveals a large amount of stool in the colon which could suggest constipation. No evidence of bowel obstruction. There are surgical clips in the right upper quadrant presum ably related to a cholecystectomy. The lung bases are clear. The esophagus is normal in course and ca liber, and is well distended on double contrast views. The mucosal pattern is n ormal. The gastroesophageal junction is normall y positioned. Esophageal peristalsis is normal. No gastroesophageal reflux was elicited with provocative maneuvers. A 12 mm barium tablet passed through to the stomach without delay. IMPRESSION Normal double contrast esophagram. I have personally reviewed the image(s) and the resident's interpretation and agree with the findings, Tushar Samuels at 01/05/2020 4:55 PM Thank you for letting us participate in the care of this patient. For questions regarding this report, please contact th e number below. Akira Mittal MD IMG FLUORO ORDERABLES documented in this encounter Visit Diagnoses Diagnosis Dysphagia, unspecified type documented in this encounter Administered Medications Inactive Administered Medications - up to 3 most recent administrations Medication Order MAR Action Action Date Dose Rate Site barium sulfate (E-Z Disk) tablet Given 01/05/2020 4:00 PM EDT 70 0 mg 700 mg 700 mg, Oral, ONCE, 1 dose, On Wed01/05/20 at 1630, Routine barium sulfate (E-Z-HD) 98% oral liquid 100 Given 12/15 3:45 PM EDT 100 mLs mL 100 mL, Oral, ONCE, 1 dose, On Wed01/05/20 at 1630, Routine barium sulfate (Ezpaque) 60% (w/v) oral Given 01/05/2020 4:00 PM EDT 200 mLs liquid 200 mL 200 mL, Oral, ONCE, 1 dose, On Wed01/05/20 at 1630, Routine documented in this encounter Care Teams Clinical Program Director Relationship Specialty Start Date End Date Lolis Moss MD PCP - General General Internal Medicine 04/15/16 0 [facility] [place] [address] documented as of this encounter
--- OUTSIDE RECORDS SUMMARY | 2022-03-18 11:29 | XMS_ITS | Encounter Summary ---
:1970 Author Organization [facility] [place] [address] Care Team Providers Name Role Phone Lolis Moss MD Primary Care Provider Reason for Visit Reason Onset Date Comments Medication Refill 01/22/2020 Encounter Details Date Type Department Care Team Description 01/22/2020 [place] [facility] Slim Crabtree MD [facility] [place] [address] NEUROLOGY DEPT [phone] [place], [place] [address] (Wo linda) Social History Tobacco Use Types Packs/Day Years [...] Cameron Alves MD [facility] [address] [place], [place] [address] (Wo rk) documented as of [...] on filedocumented in this encounter Care Teams Flight Simulator Teacher Relationship Specialty Start Date End Date Lolis Moss MD PCP - General General Internal Medicine 04/15/1602/12/ [address] [facility] [address] [place] [address] documented as of this encounter
--- OUTSIDE RECORDS SUMMARY | 2022-03-18 11:29 | XMS_ITS | Encounter Summary ---
:1970 Author Organization [facility] [place] [address] Care Team Providers Name Role Phone Unavailable Primary Care Provider Unavailable Reason for Visit Reason Onset Date Comments Results 02/29/2020 Encounter Details Date Type Department Care Team Description 02/29/2020 Telephone Hematology and Oncology at [facility] Results [facility] Madiha otoole HEMATOLOGY/[place] [address] DEPT. [phone] [place] [id number] (Wo rk) Social History Tobacco Use Types Packs/Day Years Used Date Former Smoker Cigarettes 0 15 Quit: 08/30/19 18 Smokeless Tobacco: Never Used Alcohol Use Standard Drinks/Week Comments Not Currently 0 (1 standard drink = 0.6 oz pure alcoho l) Sex Assigned at Date Recorded Not on file documented as of this encounter Miscellaneous Notes Telephone Encounter - [facility] - 02/29/2020 2:27 PM EDT This test result was discussed with the patient by phone. A copy of the test results have been scanned in the medical record and sent to Lisseth. A summary of the results is provided below. Please be advised that [place] law requires that all health care workers respect the confidentiality of this information and not pass it along to other health care providers, insurance companies, or individuals without the written permission of the patient. The Familial Cancer Program welcomes any questions about these matters. Our phone number is: [phone]. On 02/13/2020, Lisseth underwent genetic testing for a hereditary predisposition to cancers in eight major organ systems including breast, gynecologic, gastrointestinal, endocrine, genitourinary, skin, brain/nervous system, sarcoma and hematologic. Following are the results of this test. Result: [facility]'s Multi-Cancer Panel showed no mutation was detected. This means that Lisseth does not carrya mutation in the genes detectable by this test. The following 84 genes were evaluated for sequence changes and exonic deletions/duplications: AIP, ALK, APC, MAI, AXIN2, BAP1, BARD1, BLM, BMPR1A, BRCA1, BRCA2, BRIP1, CASR, CDC73, CDH1, CDK4, CDKN1B, CDKN1C, CDKN2A, (p14ARF), CDKN2A (z90UOF0K), CEBPA, CHEK2, CTNNA1, DICER1, DIS3L2, EGFR, EPCAM (Deletion/duplication testing only), FH, FLCN, GATA2, GPC3, GREM1 (Promoter region deletion/duplication testing only), HOXB13, HRAS, KIT, MAX, MEN1, MET, MITF,(c.952G>A,P.Dvq210Tjr variant only), MLH1, MSH2, MSH3, MSH6, MUTYH, NBN, NF1, NF2, NTHL1, PALB2, PDGFRA, PHOX2B, PMS2, POLD1, POLE, POT1, MVIXR6E, PTCH1, PTEN, RAD50, RAD51C, RAD51D, RB1, RECQL4, RET, RUNX1, SDHA, SDHAF2, SDHB, SDHC, SDHD, SMAD4, SMARCA4, SMARCB1, SMARCE1, STK11, SUFU, TERC, TERT, XDTQ643, TP53, TSC1, TSC2, VHL, WRN, and WT1. 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 Interpretation: This test did not identify an underlying genetic cause for the family history of breast and ovarian cancer. Possible explanations for this uninformative negative test result include: ?? The cancer in Lisseth's family may be due to non genetic, environmental causes. ?? There could be a mutation in Lisseth's family that Lisseth did not inherit. Lisseth's mother and/or maternal grandmother may have had mutations. Lisseth's maternal aunt and maternal 1/2 brother may wish to consider testing. ?? There could be mutations in other cancer genes not included in this test, or in genes yet to be discovered. ?? There is a very small chance that a pathogenic variant/mutation could be missed due to limitations in the testing. Additional genetic testing for Lisseth is not recommended at this time. It is unclear at this time whether the PMS2 VUS identified in Lisseth is a cancer-associated mutation or a benign change in the gene with no increased cancer risks. [facility] is continually collecting and analyzing their data, in an effort to reclassify these variants as either cancer-causing mutations or benign changes. It is important to remember that a vast majority of variants of uncertain significance are normal, benign changes in the gene. We will be contacted by the laboratory, in the future, if a reclassification is made and we would then notify Lisseth. It is important that Lisseth's phone number and mailing address stay updated in the [facility] system, in order for us to reach her in the future, should an amended report beissued. Family members should NOT be tested for the PMS2 variant of uncertain significance identified in Lisseth in order to find out their own cancer risks. Screening Recommendations Based on genetic test results and personal and/or family history, we recommend: Breast cancer screening ?? Be aware of any breast changes and share concerns with primary care provider ?? Annual clinical breast exams ?? Annual mammograms Ovarian cancer screening ?? We do not recommend any special screening studies in addition to an annual FINANCIAL SYSTEMS MANAGER exam at this time.Lisseth has had a BSO. Colon cancer screening ?? Periodic colonoscopy screening as recommended by Lisseth's coke loader. Lisseth had a colonoscopy in 2016 due to GI issues. If no specific follow-up was recommended at that time she should have another colonoscopy in 2025. Skin cancer screening ?? Dermatologic/skin exams, as recommended by Lisseth's primary progressive care unit registered nurse or physician obstetrician. documented in this encounter Plan of Treatment Upcoming Encounters Date Type Specialty Care Team Description 04/14/2022 Office Visit Neurology Cameron Alves MD [facility] [address] [place], [place] [address] (Wo rk) documented as of this encounter Goals Goal Patient Goal Associated Recent Patient-Stated? Author Type Problems Progress DH Home Medication Patient No Kendrick ridley, Compliance and Facing Kan Restrepo, Understanding Action Plan [facility] Note: Formatting of this note might [...]
--- OUTSIDE RECORDS SUMMARY | 2022-03-18 11:29 | XMS_ITS | Encounter Summary ---
:1970 [place] [address] Care Team Providers Name Role Phone Lolis Moss MD Primary Care Provider Reason for Visit Reason Onset Date Comments Medication Refill 01/04/2020 Encounter Details Date Type Department Care Team Description 01/04/2020 Refill Neurology at [facility] Cameron Alves MD [address] [facility] [place] [address] [place] [address] [phone] (Wo rk) Social History Tobacco Use Types Packs/Day Years Used Date Former Smoker Cigarettes 0 15 Quit: 08/30/19 18 Smokeless Tobacco: Never Used Alcohol Use Standard Drinks/Week Comments Not Currently 0 (1 standard drink = 0.6 oz pure alcoho l) Sex Assigned at Date Recorded Not on file documented as of this encounter Miscellaneous Notes Telephone Encounter - Aleah Giles - 01/04/2020 3:31 PM EDT Patient called back. Patient is asking for the script to be sent to the pharmacy [facility]. Please contact back to discuss. Telephone Encounter - Haydee Rodriguez - 01/04/2020 1:00 PM EDT Call Center / [place] Message - Medication Issue (Not to be used for refill request , medication prior auth request, or symptom issue) Provider patient sees in Clinic: Cameron Alves Caller and relationship (if other than patient-full name): Pt Call Back Number: [phone] Ok to leave a message: yes Reason for call: Medication Issue (if medication issue is a symptom do not use this phrase) Message/information for the nurse: Name of Medication: AIMOVIG AUTOINJECTOR 140 mg/mL Auto-Injector Issue with the medication: Pt asked to have this script sent to the [facility] pharmacy in [place] on [address] instead. Please call pt back when all set. Disposition of Call: ?? Routine Message sent to the Nurse documented in this encounter Plan of Treatment Upcoming Encounters Date Type Specialty Care Team Description 04/14/2022 Office Visit Neurology Cameron Alves MD [facility] [address] [place] [address] (Wo rk) documented as of this encounter Goals Goal Patient Goal Associated Recent Patient-Stated? Author Type Problems Progress DH Home Medication Patient No Kendrick ridley, Compliance and Facing Kan Restrepo, Understanding Action Plan [facility] Note: Formatting of this note might be d ifferent from the original. Patient's specific desired goal: to have fewer headaches and to use less adjunct / rescue medication Measured by: calendar, frequency of use of adjunct / rescue meds Time-frame to meet goal: 90-150 days documented as of this encounter Visit Diagnoses Not on filedocumented in this encounter Care Teams Design Release Engineer Relationship Specialty Start Date End Date Lolis Moss MD PCP - General General Internal Medicine 04/15/[address] [facility] [address] KARINA [facility] [place] [address] documented as of this encounter
--- OUTSIDE RECORDS SUMMARY | 2022-03-18 11:29 | XMS_ITS | Encounter Summary ---
:1970 Author Organization [place] [address] Care Team Providers Name Role Phone Lolis Moss MD Primary Care Provider Encounter Details Date Type Department Care Team Description 01/04/2020 Telephone Gastroenterology at [facility] Haydee Yuen [facility] [place] [address] Social History Tobacco Use Types Packs/Day Years Used Date Former Smoker Cigarettes 0 15 Quit: 08/30/19 18 Smokeless Tobacco: Never Used Alcohol Use Standard Drinks/Week Comments Not Currently 0 (1 standard drink = 0.6 oz pure alcoho l) Sex Assigned at Date Recorded Not on file documented as of this encounter Miscellaneous Notes Telephone Encounter - Haydee Yuen - 01/04/2020 8:51 AM EDT Patient calling to schedule barium swallow. She was not feeling well yesterday and decided that scheduling the testing Haydee Santillan had ordered would be best. documented in this encounter Plan of Treatment Upcoming Encounters Date Type Specialty Care Team Description 04/14/2022 Office Visit Neurology Cameron Alves MD [facility] [address] [place] [address] (Wo rk) documented as of this encounter Goals Goal Patient Goal Associated Recent Patient-Stated? Author Type Problems Progress DH Home Medication Patient No Kendrick n, Compliance and Facing Kan Restrepo, Understanding Action Plan [facility] Note: Formatting of this note might be d ifferent from the original. Patient's specific desired goal: to have fewer headaches and to use less adjunct / rescue medication Measured by: calendar, frequency of use of adjunct / rescue meds Time-frame to meet goal: 90-150 days documented as of this encounter Visit Diagnoses Not on filedocumented in this encounter Care Teams Provider Education Specialist Relationship Specialty Start Date End Date Lolis Moss MD PCP - General General Internal Medicine 04/15/16 0 [facility] [place] [address] documented as of this encounter
--- OUTSIDE RECORDS SUMMARY | 2022-03-18 11:29 | XMS_ITS | Encounter Summary ---
:1970 Author Organization [facility] [place] [address] Care Team Providers Name Role Phone Lolis Moss MD Primary Care Provider Encounter Details Date Type Department Care Team Description 01/16/2020 Telephone Gastroenterology at [facility] Haydee Santillan [facility] [place] [address] [facility] [phone] GASTROENTEROLOGY [place], [place] [address] (Wo rk) Social History Tobacco Use Types Packs/Day Years Used Date Former Smoker Cigarettes 0 15 Quit: 08/30/19 18 Smokeless Tobacco: Never Used Alcohol Use Standard Drinks/Week Comments Not Currently 0 (1 standard drink = 0.6 oz pure alcoho l) Sex Assigned at Date Recorded Not on file documented as of this encounter Miscellaneous Notes Telephone Encounter - Haydee Santillan PA - 01/16/2020 8:59 AM EDT Spoke to Lisseth regarding my conversations with the motility team We discussed the workup [facility] can offer including esophageal manometry, impedence and smart pill. She now lives closer to [facility] and is looking to transfer her medical care to [facility] including her GI care. She is excited to hopefully be starting a new job in that area as wel She will contact us if anything changes and she would like to have testing done here at [facility] documented in this encounter Plan of Treatment Upcoming Encounters Date Type Specialty Care Team Description 04/14/2022 Office Visit Neurology Cameron Alves MD [facility] [place], [place] [address] (Wo rk) documented as of this encounter Goals Goal Patient Goal Associated Recent Patient-Stated? Author Type Problems Progress DH Home Medication Patient No Kendrick ridley, Compliance and Facing Kan Restrepo, Understanding Action Plan [facility] Note: Formatting of this note might be d ifferent from the original. Patient's specific desired goal: to have fewer headaches and to use less adjunct / rescue medication Measured by: calendar, frequency of use of adjunct / rescue meds Time-frame to meet goal: 90-150 days documented as of this encounter Visit Diagnoses Not on filedocumented in this encounter Care Teams Inflated Pad Buffer Relationship Specialty Start Date End Date Lolis Moss MD PCP - General General Internal Medicine 04/15/16 [address] [facility] [address] [facility] [place] [address] documented as of this encounter
--- OUTSIDE RECORDS SUMMARY | 2022-03-18 11:29 | XMS_ITS | Encounter Summary ---
:1970 Author Organization [facility] [place] [address] Care Team Providers Name Role Phone Lolis Moss MD Primary Care Provider Encounter Details Date Type Department Care Team Description 04/11/2020 Telephone Gastroenterology at [facility] Haydee Yuen [facility] [place] [phone] Social History Tobacco Use Types Packs/Day Years Used Date Former Smoker Cigarettes 0 15 Quit: 08/30/19 18 Smokeless Tobacco: Never Used Alcohol Use Standard Drinks/Week Comments Not Currently 0 (1 standard drink = 0.6 oz pure alcoho l) Sex Assigned at Date Recorded Not on file documented as of this encounter Miscellaneous Notes Telephone Encounter - Haydee Yuen - 04/11/2020 11:38 AM EDT Call made to patient per in basket message Patient needs telehealth f/u LV and at time of call there was an 04/12 4:30 spot available documented in this encounter Plan of Treatment Upcoming Encounters Date Type Specialty Care Team Description 04/14/2022 Office Visit Neurology Cameron Alves MD [facility] er Dr [place] [address] (Wo rk) documented as of this [...] on filedocumented in this encounter Care Teams Visual Education Director Relationship Specialty Start Date End Date Lolis Moss MD PCP - General General Internal Medicine 03/28/20 12/17/20 [facility] [place] [address] documented as of this encounter
--- OUTSIDE RECORDS SUMMARY | 2022-03-18 11:29 | XMS_ITS | Encounter Summary ---
:1970 Author Organization [facility] [place] [address] Care Team Providers Name Role Phone Lolis Moss MD Primary Care Provider Reason for Visit Surgical (Routine) - Canceled Specialty Diagnoses / Procedures Referred By Contact Refer red To Contact Gastroenterology Diagnoses Dysphagia, unspecified type GERD (gastroesophageal reflux disease) Dysphagia Haydee Santillan PA [facility] Gastro 4t Procedures High Resolution Esophageal Manometry ESOPHAGEAL FUNCTION TEST, IMPEDANCE PLACEMENT; >1HR HREM/IMP ON PPI [facility] DR [facility] [place] [address] Fax: Referral ID Status Reason Start Date Expiration Date Visits V isits Requested Authorized [id number] Canceled Consult, 12/27/2019 12/26/2020 1 1 Test & Treat Encounter Details Date Type Department Care Team Description 03/28/2020 Procedure visit Gastroenterology at [facility] Dysphagia, [facility] [place] [address] Social History Tobacco Use Types Packs/Day Years Used Date Former Smoker Cigarettes 0 15 Quit: 08/30/19 18 Smokeless Tobacco: Never Used Alcohol Use Standard Drinks/Week Comments Not Currently 0 (1 standard drink = 0.6 oz pure alcoho l) Sex Assigned at Date Recorded Not on file documented as of this encounter Progress Notes Agnieszka Zabala RN - 03/28/2020 10:00 AM EDT A description of the esophageal manometry procedure was provided to the patient. All questions were answered and the patient verbalized understanding. The HREM catheter was placed via the left naris without difficulty. The esophageal manometry procedure was performed and the catheter was removed. The patient tolerated the procedure well. Prior to placement of the impedance catheter, a description of the procedure was provided to patient. All questions were answered and the patient verbalized understanding. Written instructions were given to the patient as well. At 11:17 the impedance catheter was placed in the left naris without difficulty. It was secured at 35cm with tape. This study is being performed on acid suppressants, which was confirmed by the patient. The patient is taking Prilosec 40mg q am and Prilosec 20mg q hs. Robby Jackson MD - 03/28/2020 10:00 AM EDT Images from the original note were not included. HIGH-RESOLUTION ESOPHAGEAL MANOMETRY PROCEDURE NOTE Patient: Lisseth Boone Address: [address] [place] [id number] : 1970 Date of service: 03/28/20 Indication: Dysphagia Procedure: The patient arrived after an overnight fast. After verbal consent, a Sanjuana motility catheter with 36 circumferential sensors on 1 cm spacing with impedance sensors was inserted transnasally after application of topical anesthesia to the nasal passage. The catheter was positioned so that at least 2 distal sensors were in the stomach and 2 proximal sensors were located above the UES. A 3-5 minute acclimation period was provided followed by 10 wet swallows of 5 cc of water while supine. 10 swallows were of adequate quality for interpretation (minimum needed is seven for a technically adequate study). Normal values while supine: Upper esophageal sphincter residual pressure: < 12 mmHg Upper esophageal sphincter relaxation duration: > 480 msec Distal contractile integral (DCI): > 450 and < 8,000 mmHg x cm x s Distal latency time: > 4.5 sec Integrated EGJ relaxation pressure (IRP): < 15 mmHg Normal EGJ resting pressure (respiratory mean): 15-34 mmHg Findings: - Upper Esophageal Sphincter: normal mean residual pressure and relaxation duration - Body: 0% of swallows failed. 0% of swallows had premature contractions with shortened distal latency time. The remaining 100% of swallows were peristaltic, includin% of swallows with hypercontractility, 0% of swallows with weak peristalsis, and 10% of swallows with large breaks (>5 cm) in the 20mmHg isocontour line. - Esophagogastric Junction: Midpoint located 42 cm from the nares, and proximal extent located at 41cm. The lower esophageal sphincter is located at the same level as the crural diaphragm. Normal resting pressure (mean 17 mmHg) and normal IRP in 100% of swallows (median 8.7 mmHg). - Bolus transit: Liquid boluses cleared in 100% of swallows. - Multiple rapid swallows: Peristaltic reserve: intact (ratio of post-multiple rapid swallow DCI to median DCI on 10 supine swallows is >=1.0) Deglutitive inhibition: intact Ocean Export Coordinator swallow: Impressions based on Swanton Classification v3.0: Normal esophageal motility. *These findings assume that mechanical obstruction has been ruled out. Robby Jackson MD, FRCPC Section of Gastroenterology and Hepatology [facility] [place] [address] V: [phone] F: [phone] CC/EC: Lolis Moss MD [facility] [place] [address] Sanjay Alvarado MD - 03/28/2020 10:00 AM EDT 24 HOUR pH/IMPEDANCE PROCEDURE NOTE (ADULT) Patient: Lisseth Boone Address: [address] [place] [id number] : 1970 Date of service: 03/31/20 Indication: dysphagia Procedure: The catheter was placed transnasally after topical anesthetic (1cc of 4% aerosol lidocaine and 1cc of 2% viscous lidocaine), with the esophageal pH sensor located 32cm from the nares, 5 cm above the manometrically identified lower esophageal sphincter. A gastric pH sensor was located 10 cm distal to the top of the lower esophageal sphincter. The patient was instructed to keep a diary of symptoms, andreturned the next day for removal of the probe. For this procedure, the patient was ON prilosec 40mg qAM and 20mg qHS MEDICATION. Findings: Analysis Duration Total: 24:00 Analysis Duration Upright: 21:53 Analysis Duration Supine: 02:07 Total distal esophageal acid exposure: 14.2 % (normal: < 4.2% of time pH<4) Upright distal esophageal acid exposure: 14.2 % (normal: < 6.3%) Supine distal esophageal acid exposure: 14.8 % (normal: < 1.2%) DeMeester Score: 52.7 (normal: <14.7) Number of reflux events by impedance: 10 total (normal < 73) and 9 acidic (normal < 55) and 1 weakly acidic (normal < 26) Esophageal bolus exposure time by impedance: 1.0 % (normal < 2%) Symptom association: Symptom Index (SI) Symptom (# of occurrences) Acid Weak acid Nonacid All reflux Heartburn (2) 100% 0% 0% 100% Cough (1) 0% 0% 0% 0% Chest pain (1) 0% 0% 0% 0% Dysphagia (10) 60% 0% 0% 60% Symptom Association Probability (SAP) Symptom (# of occurrences) Acid Weak acid Nonacid All reflux Heartburn (2) 95.6% 0% 0% 95.6% Cough (1) 0% 0% 0% 0% Chest pain (1) 0% 0% 0% 0% Dysphagia (10) 99.3% 0% 0% 99.3% (positive association: Symptom Index [SI] > 50% and Symptom Associated Probability [SAP] > 95%) Impression: Evidence of excessive acid reflux tested ON Prilosec 40mg qAM and 2mg qHS medication. Evidence of association between reflux and recorded symptoms of heartburn and possibly dysphagia, but not single episodes of cough or chest pain. No evidence of elevated reflux burden measured by impedance. This study is consistent with breakthrough acid reflux despite proton pump inhibitor therapy. Consider assessing PPI compliance. Sanjay Alvarado MD, SAMI Section of Gastroenterology and Hepatology [facility] [place] [address] V: [phone] F: [phone] CC/EC: Lolis Moss MD [facility] [place] [address] documented in this encounter Plan of Treatment Upcoming Encounters Date Type Specialty Care Team Description 04/14/2022 Office Visit Neurology Cameron Alves MD [facility] [place], [place] [address] (Wo rk) documented as of [...] type documented in this encounter Care Teams Dermatology Specialist Relationship Specialty Start Date End Date Lolis Moss MD PCP - General General Internal Medicine 03/28/20 12/17/20 [facility] [place] [address] documented as of this encounter
--- OUTSIDE RECORDS SUMMARY | 2022-03-18 11:29 | XMS_ITS | Encounter Summary ---
:1970 Author Organization [facility] [place] [address] Care Team Providers Name Role Phone Lolis Moss MD Primary Care Provider Encounter Details Date Type Department Care Team Description 02/02/2020 Telephone Psychiatry and Behavioral Slim Elizabeth MD Health at [facility] [place] [address] [place] [address] [phone] (Wo rk) Social History Tobacco Use Types Packs/Day Years Used Date Former Smoker Cigarettes 0 15 Quit: 08/30/19 18 Smokeless Tobacco: Never Used Alcohol Use Standard Drinks/Week Comments Not Currently 0 (1 standard drink = 0.6 oz pure alcoho l) Sex Assigned at Date Recorded Not on file documented as of this encounter Miscellaneous Notes Telephone Encounter - Slim Elizabeth MD - 02/02/2020 2:52 PM EDT I'm covering Dr. 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 Angelica called the crisis line thinking she was having a manic episode because she yelled at her son. She states that she was upset because her dogurinated and defecated on the floor while she was gone, and her son didn't clean it up. After discussion, it seems that she was under increased stress and anxiety and not having a manic episode. She reports multiple psychosocial stressors on the phone, such as going back to work, her sons, and having to put her dog to sleep. She denies SI, HI. She understands if she has worsening thoughts or SI that she can call 911, call the crisis line, or go to the nearest emergency room. documented in this encounter Plan of Treatment Upcoming Encounters Date Type Specialty Care Team Description 04/14/2022 Office Visit Neurology Cameron Alves MD [facility] [place], [place] [address] (Wo rk) documented as of this encounter Goals Goal Patient Goal Associated Recent Patient-Stated? Author Type Problems Progress DH Home Medication Patient No Kendrick ridley, Compliance and Facing Kan Restrepo, Understanding Action Plan [facility] Note: [...] on filedocumented in this encounter Care Teams Biomass Facilitator Relationship Specialty Start Date End Date Lolis Moss MD PCP - General General Internal Medicine 04/15/16 [address] [facility] [address] KARINA [facility] [address] documented as of this encounter
--- OUTSIDE RECORDS SUMMARY | 2022-03-18 11:29 | XMS_ITS | Encounter Summary ---
:1970 Author Organization [facility] [address] Care Team Providers Name Role Phone Lolis Moss MD Primary Care Provider Reason for Visit Reason Comments Vaginal Bleeding PMB s/p BSO, on HRT Consultation (Routine) - Closed Specialty Diagnoses / Procedures Referred By Contact Refer red To Contact Obstetrics and Diagnoses Abnormal uterine bleeding (AUB) Lolis Moss, [facility] Concrete Gun Operator 5l Gynecology [facility] [id number] [place] [address] Referral ID Status Reason Start Date Expiration Date Visits V isits Requested Authorized [id number] Closed Specialty 04/09/2020 04/09/2021 1 1 Service Requested Encounter Details Date Type Department Care Team Description 04/29/2020 Office Visit Obstetrics and Samantha Moraes, Postmeno pausal bleeding; Gynecology at [facility] Urgency of urination; [facility] pel vance pain, female; [facility] DR Galarza/Lauro LOVE (bilateral salpingo-oophorectomy ); [place], [place] [address] Hormone replacement therapy (postmenopau samuel) [id number] Social History Tobacco Use Types Packs/Day [...] Sign Reading Time Taken Comments Blood Pressure 152/98 04/29/2020 3:12 PM EDT Pulse 96 04/29/2020 3:12 PM EDT Temperature 36.8 ??C (98.3 ??F) 04/29/2020 3:12 PM EDT Respiratory Rate 16 04/29/2020 3:12 PM EDT Oxygen Saturation 99% 04/29/2020 3:12 PM EDT Inhaled Oxygen Concentration - - Weight 68.7 kg (151 lb 6.4 oz) 04/29/2020 3:12 PM EDT Height 159.4 cm (5' 2.75) 04/29/2020 3:12 PM EDT Body Mass Index 27.03 04/29/2020 3:12 PM EDT documented in this encounter Progress Notes Samantha Moraes MD - 04/29/2020 3:15 PM EDT Images from the original note were not included. Obgyn Clinic Visit: New Patient Evaluation Chief Complaint Patient presents with ??? Vaginal Bleeding PMB s/p BSO, on HRT Patient Active Problem List Diagnosis Date Noted ??? Depression 05/26/2016 Priority: Medium ??? Psoriatic arthritis 05/08/2016 Priority: Medium ??? Anxiety 05/08/2016 Priority: Medium ??? Migraine 10/23/2013 Priority: Medium ??? Altered mental status 10/22/2013 Priority: Medium ??? Closed TBI (traumatic brain injury) 10/17/2012 Priority: Medium ??? Total body pain ??? TBI (traumatic brain injury) ??? Syncope ??? Seizure ??? Psychosis ??? Peptic ulcer disease ??? Motion sickness ??? Metabolic acidosis ??? Mental health problem ??? Liver disease ??? Hypertension ??? GERD (gastroesophageal reflux disease) ??? ELIANA (generalized anxiety disorder) ??? Chronic migraine without aura, with intractable migraine, so stated, with status migrainosus ??? Chronic kidney disease ??? Cervical cancer ??? Cancer ??? C1 cervical fracture ??? Bowel disease ??? Bleeding disorder ??? Bipolar disorder ??? Back pain ??? Post-traumatic stress disorder, chronic 01/15/2020 ??? Abnormal uterine bleeding (AUB) 07/30/2019 ??? Abnormal finding on ultrasound 07/30/2019 ??? Viral warts 05/08/2016 ??? Fibromyalgia 05/08/2016 ??? Primary insomnia 04/15/2016 ??? Weight loss 02/03/2016 ??? Amnesia 10/23/2013 ??? MCI (mild cognitive impairment) 11/21/2012 ??? Closed C1 fracture 10/17/2012 ??? Fibrocystic breast changes 11/17/2011 ??? Breast cancer screening, high risk patient (Not by Mammogram) 11/17/2011 Subjective: Ms. Lisseth Aragon is a 49 y.o. woman with multiple medical problems s/p BSO withsurgical menopause continued on Prempro HRT presenting in referral from Lolis Moss MD for evaluation of postmenopausal bleeding Had BSO 09/22/[address] Raymond pelvic cyst (see pathology below) PMB: BTB started 3 weeks ago, off and on A week ago was the last time. 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 Review of Systems: ?? Denies shortness of breath, chest pain ?? Denies headache, visio nchanges ?? Denies nausea, vomiting, unintentional weight loss/gain ?? Denies diarrhear or constipation ?? Urinary sxs per HPI ?? Denies vaginal dryness or discharge OB History 4 Para 3 Term 3 AB Living SAB TAB Ectopic Multiple Live Births 3 # Outc Date GA Lbr Tommy/2nd Wgt Sex Del Anes PTL Lv 1 Term 2 Term 3 Term 4 Objective: Exam performed with clinic flow staff torch straightener and heater BP (!) 152/98 Pulse 96 Temp 36.8 ??C (98.3 ??F) (Temporal) Resp 16 Ht 159.4 cm (5' 2.75) Wt 68.7 kg (151 lb 6.4 oz) SpO2 99% BMI 27.03 kg/m?? Body mass index is 27.03 kg/m??. Constitutional: Pleasant and conversant, appears well, presents alone Gastrointestinal: Soft, nontender, nondistended, incisions well healed and well approximated, nontender Genitourinary: ?? External genitalia without lesions or abnormalities ?? Urethral meatus without lesions or abnormalities ?? Urethra without tenderness, masses ?? Vaginal epithelium pink and moist; cervix without lesions, physiologic discharge, no bleeding noted at this time ?? No perianal lesions ?? Pelvic support without obvious defects ?? Bimanual: No CMT; small, mobile, retroverted uterus without masses or tenderness; no adnexal masses or tenderness Neuro/Psychiatric: A&Ox3, appropriate affect Extremities: No lower extremity edema or erythema Procedure Note: Endometrial Biopsy Verbal consent was obtained for the biopsy. A speculum was introduced into the vagina for visualization of the cervix. The cervix was prepped with chlorhexidine solution. The anterior lip of cervix wasgrasped with a single tooth tenaculum. The endometrial biopsy catheter was advanced into the endometr ial cavity without difficulty. The uterus sounded to 6.5 cm. 1 x pass of the catheter was performed to complete the sample collection. The tenaculum was removed. Adequate hemostasis was noted. The patient tolerated the procedure well. The sample was sent to Pathology. Labs: UPT today in Clinic: Not indicated Imaging: Last US 08/2019, see EDH Assessment/Plan: Counseling dominated visit. Greater than 16 minutes of this 30 minute visit were spent in [id number] counseling regarding the etiologies of and management options for PMB s/p BSO, continued on prempro. Reassuring that on recent 08/2019 US endo stripe thin. Recommend repeat interval TVUS especially given LLQ discomfort. Pelvic exam did not recreate this discomfort so not likely Due Diligence Coordinator. EMBx collected today. Spotting most likely due to the stimulation of the uterine lining from the Prempro. Lisseth does not want to stop this given the improvement in menopausal sxs. She will continue tomonitor and if worsening we can readdress the HRT - may benefit form increased does of progesterone. Tobacco use, HTN, and HRT: Congratulated prior success at quitting for 8 years and desire to quit again. Aware of risk of bladder cancer and other malignancies with tob use. Reviewed tobacco use and HRT use. She has undergone surgical menopause prior to average age of menopause which is 53 yo. So reasonable to continue the HRT.However, increased risk of DVT and in setting of elevated BP stroke, so recommend following BP very closely (have f/u scheduled). For urinary urgency. UA with reflex cx sent today. Fam h/o bladder cancer, tobacco use. Reviewed possible diagnosis of urge incontinence and bladder spasm. Reviewed recommendation to drink to thirst and gave copy of info on PBS including dietary modification recommendations. If worsening or persistentsxs, will offer referral to Urogyn. If isolated urgency issues refractory to lifestyle mods, may benefit from an anticholinergic or Mirbegron though did have elevated BP today. Check out note / Follow up plan: Schedule TVUS. I will call with results of the TVUS and EMBx. Also,f/u with Dr. Moraes in 4-5 months. 1. Postmenopausal bleeding Specimen to Pathology 2. Urgency of urination Urinalysis with reflex Culture 3. Acute pelvic pain, female US Transvaginal Non OB 4. S/P BSO (bilateral salpingo-oophorectomy) 5. Hormone replacement therapy (postmenopausal) We appreciate this referral and will continue to follow Lisseth Stanley Billaneudy along with you. Please feelfree to contact us with any questions or concerns. Samantha Moraes MD documented in this encounter Plan of Treatment Upcoming Encounters Date Type Specialty Care Team Description 04/14/2022 Office Visit Neurology Cameron Alves MD [facility] [address] [place], [place] [address] (Wo rk) documented as of this encounter Goals Goal Patient Goal Associated Recent Patient-Stated? Author Type Problems Progress Home Medication Patient No Kendrick ridley, Compliance [...] Name Priority Date/Time Associated Diagnosis Comme nts SPECIMEN TO Routine 04/29/2020 4:00 PM Postmenopausal Results for this PATHOLOGY EDT bleeding procedure are i n the results section. SURGICAL PATHOLOGY Routine 04/29/2020 3:15 PM Res ults for this REPORT EDT procedure are i n the results section. URINALYSIS WITH Routine 04/29/2020 3:15 PM Urgency of urinatio n Results for this REFLEX CULTURE EDT procedure are in the results section. documented in this encounter Results US Transvaginal Non OB (05/08/2020 3:39 PM EDT) Anatomical Region Laterality Modality Ultrasound Specimen (Source) Anatomical Collection Method Collection Time Re ceived Time Location / / Volume Laterality 05/08/2020 3:22 PM EDT Impressions 05/08/2020 4:06 PM EDT 1. ??Thin endometrium. 2. ??Status post bilateral salpingo-oop horectomy. No sonographically visualized adnexal mass, evaluation limited by bow el gas, particularly on the right. Thank you for letting us participate in the care of this patient. For questions regarding this report, please contact t he number below. Electronically signed by: Hansa Mancilla MD, [facility] ([phone]), at 3:59 PM ? Hansa Mancilla, Staff Physician Electronically Signed Final Report ?? 04:06 pm Narrative 05/08/2020 4:06 PM EDT Gynecological Report ?(Signed Final 05/08/2020 04:06 pm) PATIENT INFO: ID #: ? [id number] ?: ??[birth year] (49 yrs)(F) Name: ? LISSETH Angel SLICER ? Visit Date: 05/08/2020 03:22 pm PERFORMED BY: Performed By: ? Angelique SANTOYO, Katarzyna Attending: ?Charo FRANK, Hansa Hale Referred By: ?SAMANTHA MORAES Location: ? [facility] SERVICE(S) PROVIDED: ??UTV - Transvaginal - [id number] INDICATIONS: ??PMB s/p BSO TECHNIQUE/SCAN QUALITY: Technique: ?Transducer ID#: [id number] COMPARISON: Transvaginal ultrasound 09/07/19 -------- HISTORY: -------- Age: ?? 49 Menses: ?No perio ds since removal of ?ovar ies Hormone Treatment: ? None per patie nt ------- UTERUS: ------- Uterus: ? Visualized Position: ?? Anteverted ENDOMETRIUM: Endometrium: ?Thin Thickness(mm): ?2.4 Comment: ? Previously seen 2-3 mm s ubendometrial cyst is ?less well visualize d today. CUL-DE-SAC: No fluid is visualized. RIGHT OVARY: Status: ?? Surgically absent Comment: ? No visualized adnexal ma ss, evaluation limited by ?bowel gas. LEFT OVARY: Status: ?? Surgically absent Comment: ? No adnexal mass is seen. Procedure Note Hasna Mancilla MD - 05/08/2020Formatt ing of this note might be different from the original. Gynecological Report (Signed Final 04/17 04:06 pm) PATIENT INFO: ID #: [id number] : 74 (49 y rs)(F) Name: LISSETH ARAGON Visit Date: 04/17 03:22 pm PERFORMED BY: Performed By: Katarzyna Merino RDMS Attending: Hansa Mancilla MD Referred By: SAMANTHA MORAES Location: [facility] SERVICE(S) PROVIDED: UTV - Transvaginal - [id number] INDICATIONS: PMB s/p BSO TECHNIQUE/SCAN QUALITY: Technique: Transducer ID#: 24 COMPARISON: Transvaginal ultrasound 09/07/19 -------- HISTORY: -------- Age: 49 Menses: No periods since removal of ovaries Hormone Treatment: None per patient ------- UTERUS: ------- Uterus: Visualized Position: Anteverted ENDOMETRIUM: Endometrium: Thin Thickness(mm): 2.4 Comment: Previously seen 2-3 mm subendo metrial cyst is less well visualized today. CUL-DE-SAC: No fluid is visualized. RIGHT OVARY: Status: Surgically absent Comment: No visualized adnexal mass, ev aluation limited by bowel gas. LEFT OVARY: Status: Surgically absent Comment: No adnexal mass is seen. IMPRESSION 1. Thin endometrium. 2. Status post bilateral salpingo-oopho rectomy. No sonographically visualized adnexal mass, evaluation limited by bow el gas, particularly on the right. Thank you for letting us participate in the care of this patient. For questions regarding this report, please contact t he number below. Electronically signed by: Hansa Mancilla MD, [facility] ([phone]), at 3:59 PM Hansa Mancilla, Staff Physician Electronically Signed Final Report 05/08 04:06 pm Samantha Moraes MD IMG PELVIC ORDERABLES Specimen to Pathology (04/29/2020 4:00 PM EDT) Specimen Anatomical Collection Method Collection Time Receive d Time (Source) Location / / Volume Laterality AP Specimen 04/29/2020 4:00 PM 0 4:00 EDT PM EDT Narrative [facility] - 04/29/2020 4:00 PM EDT Specimen requisition ordered. ??Separate Pathology report to follow Samantha Moraes MD PATHOLOGY/CYTOLOGY ORDERABLE S Performing Organization Address City/State/[place] [address] Surgical Pathology Report (04/29/2020 3:15 PM EDT) Component Value Ref Test Analysis Performed At [facility] Range Method Time Signature Surgical [id number] ? Location: 5L [facility] Report The signing pathologist has (i) examined the relevant preparation(s) for the [facility] specimen(s) and (ii) rendered or confirmed the diagnosis(es) . HOSPITAL LABORATORY . ?Surgic al Pathology DIAGNOSIS Endometrial biopsy: ?? 1. Fragments of benign weakly proliferative endometrium ?admixed with cervical mucus. ?? 2. No evidence of hyperplasia or endometritis. CR-0 Electronically signed by: ??Sandeep FRANK, Ramakrishna Sebastian Verified: ??05/07/2020 ?Pathologist Performed at: ??-[facility] Dept. of Pathology, [place], [place] SPECIMEN(S) SUBMITTED A - EMBX CLINICAL INFORMATION Endometrial SPECIMEN PROCESSING A - Labeled/Fixative: Endometrium, curettings, formalin. Quantity/Size: Multiple, 1.5 x 0.6 x 0.1 cm. Tissue Description: Tissue fragments and mucus. Sections/Processing: Submitted en toto in 1 cassette labeled A1. MLL Specimen (Source) Anatomical Collection Method Collection Time Re ceived Time Location / / Volume Laterality 04/29/2020 3:15 PM EDT Samantha Moraes MD PATHOLOGY/CYTOLOGY ORDERABLE S Performing Organization Address City/State/[place] [address] (ABNORMAL) Urinalysis with reflex Culture (04/29/2020 3:15 PM EDT) [facility] gist Method Time Signature Glucose UA Negative Negative [facility] mg/dL [facility] Protein UA Negative Negative [facility] mg/dL [facility] Bilirubin UA Negative Negative [facility] mg/dL [facility] Comment: Clinical correlation required for positi ve Urine Bilirubin results as false positive may occur with some drugs and d rug related products. If a false positive is suspected a serum total bili kelly should be considered if clinically indicated. Urobilinogen UA Normal Normal mg/dL [facility] pH UA 8.5 (H) 5.0 - 8.0 [facility] Blood UA Negative Negative mg/dL [facility] Ketones UA Negative Negative mg/dL [facility] Nitrite UA Negative Negative [facility] Leukocytes UA Negative Negative [facility] Appearance UA Turbid (A) Clear [facility] Spec [place] UA 1.018 1.006 - 1.030 [facility] Color UA Yellow Yellow [facility] Culture Reflexed No [facility] Specimen (Source) Anatomical Collection Method Collection Time Re ceived Time Location / / Volume Laterality Urine specimen 04/29/2020 3:15 04/29/2020 5:12 obtained by clean PM EDT PM EDT catch procedure (specimen) Resulting Agency Comment Spec In Lab Samantha Moraes MD URINE ORDERABLES Performing Organization Address City/[facility]/[place] [address] documented in this encounter Visit Diagnoses Diagnosis Postmenopausal bleeding Urgency of urination Acute pelvic pain, female Unspecified symptom associated with fema le genital organs S/P BSO (bilateral salpingo-oophorectomy ) Acquired absence of organ, genital organ s Hormone replacement therapy (postmenopau samuel) Need for prophylactic hormone replacemen t therapy (postmenopausal) Acute pelvic pain, female Unspecified symptom associated with fema le genital organs documented in this encounter Care Teams J2Ee Application Developer Relationship Specialty Start Date End Date Lolis Moss MD PCP - General General Internal Medicine 03/28/20 12/17/20 [facility] [address] [facility] [place] [address] documented as of this encounter
--- OUTSIDE RECORDS SUMMARY | 2022-03-18 11:29 | XMS_ITS | Encounter Summary ---
:1970 Author Organization [facility] [place] [address] Care Team Providers Name Role Phone Lolis Moss MD Primary Care Provider Encounter Details Date Type Department Care Team Description 01/04/2020 Telephone Psychiatry and Behavioral Tem[place] [phone] Social History Tobacco Use Types Packs/Day Years Used Date Former Smoker Cigarettes 0 15 Quit: 08/30/19 18 Smokeless Tobacco: Never Used Alcohol Use Standard Drinks/Week Comments Not Currently 0 (1 standard drink = 0.6 oz pure alcoho l) Sex Assigned at Date Recorded Not on file documented as of this encounter Miscellaneous Notes Telephone Encounter - Andrea Willis RN - 01/04/2020 12:14 PM EDT Reached out to patient to follow up about her status. She reports that she did sleep some last night, but is very disorganized and confused overall. She's been having terrible migraines for the last few days, and has not been able to eat, and is worried about her weight, and the inability to get the esophagus testing done that she needs. Her dentist is very concerned about her dental status. I reviewed her meds with her, and she does not recall the last time she ordered her amiovig (monthlyinjectable migraine med). And wonders if she's overdue, and that's the reason for her ongoing migraine. She hasn't been able to get relief from PRN meds, and is having difficulty with concentration. She will call her local pharmacy to see if they carry the amiovig, and possibly pick it up there. And reach out to Dr Alves's team to get sumatriptan for PRN use instead of current prn med, which doesn'tseem to be working. She also mentioned going to the er/urgent care for a shot to break the migraine cycle. Patient also very concerned about her weight loss, and only being able to drink her diet. She reports that her pills are getting stuck in her throat, and she can feel them. Encouraged her to possibly try higher caloric drink, or thicker fluids- milkshake/smoothie, to help with pills, and maintaining caloric intake. documented in this encounter Plan of Treatment Upcoming Encounters Date Type Specialty Care Team Description 04/14/2022 Office Visit Neurology Cameron Alves MD [facility] er [address] [place] [address] (Wo rk) documented as of this encounter Goals Goal Patient Goal Associated Recent Patient-Stated? Author Type Problems Progress DH Home Medication Patient No Kendrick ridley, Compliance and Facing Kan Restrepo, Understanding Action Plan [facility] Note: Formatting of this note might be d ifferent from the original. Patient's specific desired goal: to have fewer headaches and to use less adjunct / rescue medication Measured by: calendar, frequency of use of adjunct / rescue meds Time-frame to meet goal: 90-150 days documented as of this encounter Visit Diagnoses Not on filedocumented in this encounter Care Teams Electrician Third Relationship Specialty Start Date End Date Lolis Moss MD PCP - General General Internal Medicine 04/15/16 [address] [facility] [address] [facility] [place] [address] documented as of this encounter
--- OUTSIDE RECORDS SUMMARY | 2022-03-18 11:29 | XMS_ITS | Encounter Summary ---
:1970 Author Organization [facility] [place] [address] Care Team Providers Name Role Phone Lolis Moss MD Primary Care Provider Reason for Visit Reason Onset Date Comments Appointment 04/02/2020 Encounter Details Date Type Department Care Team Description 04/02/2020 Telephone Internal Medicine at [facility] [address] [place] [address] Social History Tobacco Use Types Packs/Day Years Used Date Former Smoker Cigarettes 0 15 Quit: 08/30/19 18 Smokeless Tobacco: Never Used Alcohol Use Standard Drinks/Week Comments Not Currently 0 (1 standard drink = 0.6 oz pure alcoho l) Sex Assigned at Date Recorded Not on file documented as of this encounter Miscellaneous Notes Telephone Encounter - Lele Vega - 04/02/2020 2:52 PM EDT Call Center / [place] Message - General Issue Call Provider patient sees in Clinic: Dr. Geovanni Alves Caller and relationship (if other than patient-full name): self Call back number: [phone] Ok to leave a message: yes Reason for call: Patient called to notify they were having difficulty logging in for their [facility] at 2:[address] Geovanni Alves. This agent rescheduled the appointment. FYI Disposition of Call (choose one and remove others) ??? Routine message sent to Cable Splicing Technician: yes documented in this encounter Plan of Treatment Upcoming Encounters Date Type Specialty Care Team Description 04/14/2022 Office Visit Neurology Cameron Alves MD [facility] [place] [address] (Wo rk) documented as of [...] on filedocumented in this encounter Care Teams Designer Writer Relationship Specialty Start Date End Date Lolis Moss MD PCP - General General Internal Medicine 03/28/20 12/17/20 [facility] [address] [facility] [place] [address] documented as of this encounter
--- OUTSIDE RECORDS SUMMARY | 2022-03-18 11:29 | XMS_ITS | Encounter Summary ---
:1970 Author Organization [facility] [place] [address] Care Team Providers Name Role Phone Lolis Moss MD Primary Care Provider Reason for Visit Reason Onset Date Comments Triage 02/22/2020 Encounter Details Date Type Department Care Team Description 02/22/2020 Telephone Internal Medicine at [facility], [facility] [address] [place] [address] Social History Tobacco Use Types Packs/Day Years Used Date Former Smoker Cigarettes 0 15 Quit: 08/30/19 18 Smokeless Tobacco: Never Used Alcohol Use Standard Drinks/Week Comments Not Currently 0 (1 standard drink = 0.6 oz pure alcoho l) Sex Assigned at Date Recorded Not on file documented as of this encounter Miscellaneous Notes Telephone Encounter - Leah Spencer RN - 02/26/2020 8:06 AM EDT Left message to Pharmacy (hours open start at 9am). Last rx for montelukast were sent to [facility]? Try to call again after 9 am Telephone Encounter - Leah Spencer RN - 02/22/2020 8:34 AM EDT Left message on identified VM advising to call back and discuss reactions and treatments tried so far in greater detail. Sent MyD with homecare. Routed to PCP to advise. 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 She is hoping that Dr. Moss could prescribe her something else than fexofenadine (COREY) 180 mg Tablet which isn't working for her right now. She also sent in a message this morning. Ask caller their first and last name and relationship to the patient: Lisseth Boone Best time to call back: any Ok to leave a message: y Ok to send my- message: n Offered Appointment: n MA/Nurse/[place] contacted via: Message: y Call: n Pager: n If she doesn't hand picker it's because she is teaching, please leave her a message and she will call back. documented in this encounter Plan of Treatment Upcoming Encounters Date Type Specialty Care Team Description 04/14/2022 Office Visit Neurology Cameron Alves MD [facility] [address] [place] [address] (Wo rk) documented as of this [...] on filedocumented in this encounter Care Teams Process Design Engineer Relationship Specialty Start Date End Date Lolis Moss MD PCP - General General Internal Medicine 03/28/20 12/17/20 [facility] [address] documented as of this encounter
--- OUTSIDE RECORDS SUMMARY | 2022-03-18 11:29 | XMS_ITS | Encounter Summary ---
:1970 Author Organization [place] [address] Care Team Providers Name Role Phone Unavailable Primary Care Provider Unavailable Encounter Details Date Type Department Care Team Description 02/29/2020 Orders Only Psychiatry Bobbi Rojas MD [facility] [place] [address] PSYCHIATRY [phone] [place], [place] [address] (Wo rk) Social History Tobacco [...] Visit Neurology Cameron Alves MD [facility] [address] [place] [address] (Wo rk) documented as of [...]
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
--- OUTSIDE RECORDS SUMMARY | 2022-03-18 11:29 | XMS_ITS | Encounter Summary ---
:1970 [place] [address] Care Team Providers Name Role Phone Lolis Moss MD Primary Care Provider Reason for Visit Reason Onset Date Comments TeleHealth 04/08/2020 Encounter Details Date Type Department Care Team Description 04/08/2020 Telephone Neurology at [facility] Cameron Alves MD TeleHealth [address] [facility] [place] [address] [place] [address] [phone] (Wo rk) Social History Tobacco Use Types Packs/Day Years Used Date Former Smoker Cigarettes 0 15 Quit: 08/30/19 18 Smokeless Tobacco: Never Used Alcohol Use Standard Drinks/Week Comments Not Currently 0 (1 standard drink = 0.6 oz pure alcoho l) Sex Assigned at Date Recorded Not on file documented as of this encounter Miscellaneous Notes Telephone Encounter - Lola Fernández CMA - 04/08/2020 1:43 PM EDT Spoke with patient to review medications and allergies prior to upcoming tele- appointment scheduledwith Neurology provider. documented in this encounter Plan of Treatment Upcoming Encounters Date Type Specialty Care Team Description 04/14/2022 Office Visit Neurology Cameron Alves MD [facility] Dr [place], [place] [address] (Wo rk) documented as of [...] on filedocumented in this encounter Care Teams Tearoom Host Relationship Specialty Start Date End Date Lolis Moss MD PCP - General General Internal Medicine 03/28/20 12/17/[address] [facility] [address] [facility] [place] [address] documented as of this encounter
--- OUTSIDE RECORDS SUMMARY | 2022-03-18 11:29 | XMS_ITS | Encounter Summary ---
:1970 Author Organization [facility] [place] [address] Care Team Providers Name Role Phone Lolis Moss MD Primary Care Provider Reason for Visit Reason Onset Date Comments Letter/Form 01/15/2020 form Encounter Details Date Type Department Care Team Description 01/15/2020 Telephone Internal Medicine at [facility] Letter/Form (form) [address] [place] [address] Social History Tobacco Use Types Packs/Day Years Used Date Former Smoker Cigarettes 0 15 Quit: 08/30/19 18 Smokeless Tobacco: Never Used Alcohol Use Standard Drinks/Week Comments Not Currently 0 (1 standard drink = 0.6 oz pure alcoho l) Sex Assigned at Date Recorded Not on file documented as of this encounter Miscellaneous Notes Telephone Encounter - Jane Schmidt CCMA - 01/16/2020 12:01 PM EDT Received form from [facility]- filling out and giving to provider to sign. Telephone Encounter - Hipolito Sullivan - 01/16/2020 9:22 AM EDT Mary calling this morning they will be re faxing this form again today. Telephone Encounter - Jane Schmidt CCMA - 01/15/2020 2:58 PM EDT Tried to contact Hillary back at [facility] as we cannot find previous paperwork. The phone continued to ringwith no answer and no option to leave a message. Will try again later. Telephone Encounter - Felicia Ingram - 01/15/2020 8:45 AM EDT Patient is requesting to have form completed: Type of paperwork: [employer]- [facility] form to be signed and completed with pt's name so they can schedule with pt. Provider: Lolis Moss MD Dropped off at the office on: x Faxed to (what number): unsure of number faxed form on 01/07-01/08 Mailed to the office on: x After completion please: Mail to: x Fax to: Hillary - [facility]- p- [phone] fax- [phone] Send to [facility]: Call for worm picker: Who [] Phone [] documented in this encounter Plan of Treatment Upcoming Encounters Date Type Specialty Care Team Description 04/14/2022 Office Visit Neurology Cameron Alves MD [facility] [address] [place] [address] (Wo rk) documented as of this encounter Goals Goal Patient Goal Associated Recent Patient-Stated? Author Type Problems Progress DH Home Medication Patient No Kendrick ridley, Compliance and Facing Kan Restrepo, Understanding Action Plan [facility] Note: Formatting of this note might be d ifferent from the original. Patient's specific desired goal: to have fewer headaches and to use less adjunct / rescue medication Measured by: calendar, frequency of use of adjunct / rescue meds Time-frame to meet goal: 90-150 days documented as of this encounter Visit Diagnoses Not on filedocumented in this encounter Care Teams Foot Doctor Relationship Specialty Start Date End Date Lolis Moss MD PCP - General General Internal Medicine 04/15/16 [facility] [address] [facility] [place] [address] documented as of this encounter
--- OUTSIDE RECORDS SUMMARY | 2022-03-18 11:29 | XMS_ITS | Encounter Summary ---
:1970 Author Organization [place] [address] Care Team Providers Name Role Phone Lolis Moss MD Primary Care Provider Encounter Details Date Type Department Care Team Description 02/02/2020 Telephone Psychiatry and Behavioral Temitope Willis RN [facility] at [facility] [place] [phone] Social History Tobacco Use Types Packs/Day Years Used Date Former Smoker Cigarettes 0 15 Quit: 08/30/19 18 Smokeless Tobacco: Never Used Alcohol Use Standard Drinks/Week Comments Not Currently 0 (1 standard drink = 0.6 oz pure alcoho l) Sex Assigned at Date Recorded Not on file documented as of this encounter Miscellaneous Notes Telephone Encounter - Andrea Willis RN - 02/02/2020 12:39 PM EDT Patient called crisis line, worried that she's having a manic episode as she feels out of sorts, and yelled at her son. She would like to speak with provider to discuss further. documented in this encounter Plan of Treatment Upcoming Encounters Date Type Specialty Care Team Description 04/14/2022 Office Visit Neurology Cameron Alves MD [facility] [address] [place] [id number] (Wo rk) documented as of this encounter Goals Goal Patient Goal Associated Recent Patient-Stated? Author Type Problems Progress DH Home Medication Patient No Kendrick ridley, Compliance and Facing Kan Restrepo, Understanding Action Plan [facility] Note: Formatting of this note might be d ifferent from the original. Patient's specific desired goal: to have fewer headaches and to use less adjunct / rescue medication Measured by: calendar, frequency of use of adjunct / rescue meds Time-frame to meet goal: 90-150 days documented as of this encounter Visit Diagnoses Not on filedocumented in this encounter Care Teams Fishing Floats Assembler Relationship Specialty Start Date End Date Lolis Moss MD PCP - General General Internal Medicine 04/15/16 [address] [facility] [address] KARINA [facility] [address] documented as of this encounter
--- OUTSIDE RECORDS SUMMARY | 2022-03-18 11:29 | XMS_ITS | Encounter Summary ---
:1970 Author Organization [facility] [place] [address] Care Team Providers Name Role Phone Lolis Moss MD Primary Care Provider Encounter Details Date Type Department Care Team Description 01/09/2020 TH Visit Internal Medicine at Lolis Moss urgitation of food (TeleHealth) Karina Gimenez MD [address] [facility] [address] [facility] [phone] PRIMARY CARE [place] [id number] Social History Tobacco Use Types Packs/Day Years Used Date Former Smoker Cigarettes 0 15 Quit: 08/30/19 18 Smokeless Tobacco: Never Used Alcohol Use Standard Drinks/Week Comments Not Currently 0 (1 standard drink = 0.6 oz pure alcoho l) Sex Assigned at Date Recorded Not on file documented as of this encounter Progress Notes Lolis Moss MD - 01/09/2020 2:20 PM EDT Telephone visit COVID 19 pandemic Could not make the telephone tatyana work She is in [place], [place] I am in [place], [place] Discussed visit will be billed Initially did well after her barium swallow test It looked good But then over the weekend things got worse again When she ate dinner then food came back up And she had to vomit The next day took smoothie etc She did some THC before dinner Since then everything is coming back up Like reflux--she feels it in the back of her throat Not having any abd pain, not eating [facility] did not get the referral for manometry Needs me to fax form to: Fax back to [phone] attn: Winston And discuss with Dr. Tushar Urban Is having a BM daily Does not feel constipated We talked about the stool on her BA swallow Xray She is happy to have her certification back But worried about being well enough to go back to work Sounded less distressed today A/P 1. On going difficulty eating, she is describing regurgitation today Discussed with Dr. Urban at [facility] who is willing to have the procedure scheduled Spoke with their office, they need a form filled out and will send it (faxed) documented in this encounter Plan of Treatment Upcoming Encounters Date Type Specialty Care Team Description 04/14/2022 Office Visit Neurology Cameron Alves MD [facility] [place] [address] (Wo rk) documented as of this encounter Goals Goal Patient Goal Associated Recent Patient-Stated? Author Type Problems Progress DH Home Medication Patient No Kendrick irdley, Compliance and Facing Kan Restrepo, Understanding Action Plan [facility] Note: Formatting of this note might be d ifferent from the original. Patient's specific desired goal: to have fewer headaches and to use less adjunct / rescue medication Measured by: calendar, frequency of use of adjunct / rescue meds Time-frame to meet goal: 90-150 days documented as of this encounter Visit Diagnoses Diagnosis Regurgitation of food documented in this encounter Care Teams Pipe Welder Relationship Specialty Start Date End Date Lolis Moss MD PCP - General General Internal Medicine 04/15/[address] [facility] [address] KARINA SALTER [facility] [place], [place] [id number] documented as of this encounter
--- OUTSIDE RECORDS SUMMARY | 2022-03-18 11:29 | XMS_ITS | Encounter Summary ---
:1970 [place] [address] Care Team Providers Name Role Phone Lolis Moss MD Primary Care Provider Reason for Visit Reason Onset Date Comments Appointment 04/19/2020 Encounter Details Date Type Department Care Team Description 04/19/2020 Telephone Neurology at [facility] Cameron Alves MD Appointment [address] [facility] [place] [address] [place] [id number] [phone] (Wo rk) Social History Tobacco Use Types Packs/Day Years Used Date Former Smoker Cigarettes 0 15 Quit: 08/30/19 18 Smokeless Tobacco: Never Used Alcohol Use Standard Drinks/Week Comments Not Currently 0 (1 standard drink = 0.6 oz pure alcoho l) Sex Assigned at Date Recorded Not on file documented as of this encounter Miscellaneous Notes Telephone Encounter - Therese Ingram Katelynn - 04/19/2020 8:50 AM EDT Call Center / Sas Analyst Message - General Issue Call Provider patient sees in Clinic: Dr. Geovanni Alves Caller and relationship (if other than patient-full name): Patient Call back number: Ok to leave a message: Yes Reason for call: Lisseth called asking for a TOV visit with Dr. Alves. She stated she missed a telemedicine appointment, and was supposed to get a call to schedule Botox and a FUV, but never did. Lisseth stated she really needs this visit due to being back at work & not being able to take a lot of time off. There is a permanent note stating, * pt is only to be seen in person for the Headache [facility] - NO telehealth * Disposition of Call (choose one and remove others): ??? Routine message sent to Sas Analyst: Yes documented in this encounter Plan of Treatment Upcoming Encounters Date Type Specialty Care Team Description 04/14/2022 Office Visit Neurology Cameron Alves MD [facility] [address] [place], [place] [address] (Wo rk) documented as of [...] on filedocumented in this encounter Care Teams Polisher Aluminum Relationship Specialty Start Date End Date Lolis Moss MD PCP - General General Internal Medicine 03/28/20 12/17/20 [facility] [address] KARINA [place] [address] documented as of this encounter
--- OUTSIDE RECORDS SUMMARY | 2022-03-18 11:29 | XMS_ITS | Encounter Summary ---
:1970 Author Organization [facility] [place] [address] Care Team Providers Name Role Phone Unavailable Primary Care Provider Unavailable Encounter Details Date Type Department Care Team Description 03/08/2020 Telephone Gastroenterology at [facility] [place] [address] Social History Tobacco Use Types Packs/Day Years Used Date Former Smoker Cigarettes 0 15 Quit: 08/30/19 18 Smokeless Tobacco: Never Used Alcohol Use Standard Drinks/Week Comments Not Currently 0 (1 standard drink = 0.6 oz pure alcoho l) Sex Assigned at Date Recorded Not on file documented as of this encounter Miscellaneous Notes Telephone Encounter - Bethanie Bridges - 03/08/2020 1:02 PM EDT 24 HOUR PH IMPEDANCE CLINICAL SAFETY CHECKLIST 03/08/2020 Bethanie L Bridges Lisseth Boone [address] [place] [phone] [id number] : 1970 REFERRING PROVIDER: Haydee LARRY PRIMARY CARE PROVIDER: No primary care provider on file. PRIMARY SYMPTOM (PROCEDURE INDICATION): dysphagia/difficulty swallowing SAFETY QUESTIONS FOR THE PATIENT HISTORY OF TRANSSPHENOIDAL OR PITUITARY SURGERY? no IF YES, please inform the patient that the test cannot be scheduled due to safety concerns about testing, and the patient should speak with their provider to consider alternative testing. The schedulershould also contact the provider's office directly to notify them that we are unable to schedule dueto a contraindication to testing. Then, delete the remainder of this checklist and close out the referral. HISTORY OF NASAL SURGERY IN THE LAST SIX MONTHS? no IF YES: PT CANNOT BE SCHEDULED DUE TO SAFETY CONCERNS until we receive documented clearance by theirENT provider. Then, delete the remainder of this checklist and close out the referral. PLEASE LOOK THIS UP IN THE CHART IN THE PRIOR 12 MONTHS, HAS AN ESOPHAGEAL MANOMETRY BEEN PERFORMED AT [facility]? no IF NO, please inform the patient that an esophageal manometry will be scheduled at the same time as the pH impedance test as part of the procedure. A new referral is not needed. Please add the .[email or web address] to bottom of this note. QUESTIONS FOR THE PATIENT DIABETIC? no Diabetic patients should speak with their PCP or managing provider at least two weeks before the test to ask what medication or insulin adjustments are needed for testing. If the patient feels ill while fasting due to diabetes, it is OK to have a little apple juice - just enough to feel better. Patients fast 8 hours before testing and the test lasts 1 hour. ALLERGIC TO LIDOCAINE, BENZOCAINE? See below (OK to schedule procedure but please document type of allergy if present) BLOOD THINNERS SUCH PLAVIX, COUMADIN, PRADAXA? no (pt does not have to stop any blood thinners for this procedure) DOES THE PATIENT USE A WHEELCHAIR? no VERBAL PATIENT INSTRUCTIONS FOR off-PPI STUDY The written instructions are very important for the patient to review and contain specific dietary and medication instructions prior to testing. These instructions will give the patient the most accurate test result. The patient should speak with their referring provider or our office if they have any questions. For this test, it is important that the patient hold proton pump inhibitors (PPIs) for seven days before testing, but it is OK to use H2-blockers (zantac, ranitidine) up to 24 hours before testing. VERBAL PATIENT INSTRUCTIONS FOR on-PPI STUDY The written instructions are very important for the patient to review and contain specific dietary and medication instructions prior to testing. These instructions will give the patient the most accurate test result. The patient should speak with their referring provider or our office if they have any questions. APPOINTMENT NOTES TEMPLATE Document the correct appointment notes template depending on if an esophageal manometry is also needed. Esophageal manometry with pH impedance: HREM with Ph/IMP on PPI, symptom: dysphagia/difficulty swallowing, RMD: Haydee LARRY, PCP: No primary care provider on file., wheelchair: No, blood thinners: No, allergy to lidocaine/benzocaine/novocaine: No-states Lidocaine doesn't work on her PLEASE DOCUMENT THE ESOPHAGEAL MANOMETRY CHECKLIST BELOW if you use this template. (At exit, the RMD for appointment notes is the GI provider who saw the patient) Telephone Encounter - Bethanie Bridges - 03/08/2020 12:48 PM EDT ESOPHAGEAL MANOMETRY CLINICAL SAFETY CHECKLIST 03/08/2020 Bethanie Angel Slicer [address] [place] [phone] [id number] : 1970 REFERRING PROVIDER: Haydee LARRY PRIMARY CARE PROVIDER: No primary care provider on file. PRIMARY SYMPTOM (PROCEDURE INDICATION): dysphagia/difficulty swallowing SAFETY QUESTIONS HISTORY OF TRANSSPHENOIDAL OR PITUITARY SURGERY? no IF YES, please inform the patient that the test cannot be scheduled due to safety concerns about testing, and the patient should speak with their provider to consider alternative testing. The schedulershould also contact the provider's office directly to notify them that we are unable to schedule dueto a contraindication to testing. Then, delete the remainder of this checklist and close out the referral. HISTORY OF NASAL SURGERY IN THE LAST SIX MONTHS? no IF YES: PT CANNOT BE SCHEDULED DUE TO SAFETY CONCERNS until we receive documented clearance by theirENT provider. Then, delete the remainder of this checklist and close out the referral. QUESTIONS FOR THE PATIENT DIABETIC? no Diabetic patients should speak with their PCP or managing provider at least two weeks before the test to ask what medication or insulin adjustments are needed for testing. If the patient feels ill while fasting due to diabetes, it is OK to have a little apple juice - just enough to feel better. Patients fast 8 hours before testing and the test lasts 1 hour. ALLERGIC TO LIDOCAINE, BENZOCAINE? States Lidocaine doesn't work on her, No (OK to schedule procedure but please document type of allergy if present) BLOOD THINNERS SUCH PLAVIX, COUMADIN, PRADAXA? no (pt does not have to stop any blood thinners for this procedure) DOES THE PATIENT USE A WHEELCHAIR? no VERBAL PATIENT INSTRUCTIONS The written instructions are very important for the patient to review and contain specific dietary and medication instructions prior to testing. These instructions will give the patient the most accurate test result. The patient should speak with their referring provider or our office if they have any questions. APPOINTMENT NOTES TEMPLATE HREM, symptom: dysphagia/difficulty swallowing, RMD: Haydee LARRY, PCP: No primary care provider on file., wheelchair: No, blood thinners: No, allergy to lidocaine/benzocaine/novocaine: No- states Lidocaine doesn't work on her (At exit, the RMD for appointment notes is the GI provider who saw the patient) documented in this encounter Plan of Treatment Upcoming Encounters Date Type Specialty Care Team Description 04/14/2022 Office Visit Neurology Cameron Alves MD [facility] [address] [place], [place] [address] (Wo rk) documented as of this encounter Goals Goal Patient Goal Associated Recent Patient-Stated? Author Type Problems Progress DH Home Medication Patient No Kendrick ridley, Compliance and Facing Kan Restrepo, Understanding Action Plan [facility] Note: Formatting of this note might [...]
--- OUTSIDE RECORDS SUMMARY | 2022-03-18 11:29 | XMS_ITS | Encounter Summary ---
:1970 Author Organization [place] [address] Care Team Providers Name Role Phone Lolis Moss MD Primary Care Provider Encounter Details Date Type Department Care Team Description 05/01/2020 TH Visit Internal Medicine at Lolis Moss PATIENT NOT SEEN (TeleHealth) Karina Gimenez MD [address] [facility] [address] [facility] [phone] PRIMARY [facility] [place] [id number] Social History Tobacco Use Types Packs/Day Years Used Date Current Every Day Smoker Cigarettes 0.5 15 Candelario t: 08/30/2017 Smokeless Tobacco: Never Used Alcohol Use Standard Drinks/Week Comments Not Currently 0 (1 standard drink = 0.6 oz pure alcoho l) Sex Assigned at Date Recorded Not on file documented as of this encounter Progress Notes Lolis Moss MD - 05/01/2020 3:20 PM EDT Telephone visit COVID 19 pandemic She is in [place], [place] Discussed visit will be billed Called twice, got voice mail This patient was not seen in this encounter. documented in this encounter Plan of Treatment Upcoming Encounters Date Type Specialty Care Team Description 04/14/2022 Office Visit Neurology Cameron Alves MD [facility] [place] [address] (Wo rk) documented as of [...] as of this encounter Visit Diagnoses Diagnosis DH PATIENT NOT SEEN documented in this encounter Care Teams Labor Commissioner Relationship Specialty Start Date End Date Lolis Moss MD PCP - General General Internal Medicine 03/28/20 12/17/20 [facility] [address] KARINA [place] [address] documented as of this encounter
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
--- OUTSIDE RECORDS SUMMARY | 2022-03-18 11:29 | XMS_ITS | Encounter Summary ---
:1970 Author Organization [facility] [place] [address] Care Team Providers Name Role Phone Llois Moss MD Primary Care Provider Encounter Details Date Type Department Care Team Description 01/16/2020 Telephone Internal Medicine at [facility], [facility], [facility] [address] [facility] [place] [address] Social History Tobacco Use Types Packs/Day [...] Alves MD [facility] [place] [address] (Wo rk) documented as of this encounter Goals Goal Patient Goal Associated Recent Patient-Stated? Author Type Problems Progress DH Home Medication Patient No Kendrick rdiley, Compliance and Facing Kan Restrepo, Understanding Action [...] on filedocumented in this encounter Care Teams Gunite Nozzle Operator Relationship Specialty Start Date End Date Lolis Moss MD PCP - General General Internal Medicine 04/15/16 0 [facility] [address] KARINA SALTER [facility] [place] [address] documented as of this encounter
--- OUTSIDE RECORDS SUMMARY | 2022-03-18 11:29 | XMS_ITS | Encounter Summary ---
:1970 [place] [address] Care Team Providers Name Role Phone Lolis Moss MD Primary Care Provider Reason for Visit Reason Onset Date Comments Letter/Form 01/04/2020 Encounter Details Date Type Department Care Team Description 01/04/2020 Telephone Neurology at [facility] Cameron Alves MD Letter/Form [address] [facility] [place] [address] [place] [address] [phone] (Wo rk) Social History Tobacco Use Types Packs/Day Years Used Date Former Smoker Cigarettes 0 15 Quit: 08/30/19 18 Smokeless Tobacco: Never Used Alcohol Use Standard Drinks/Week Comments Not Currently 0 (1 standard drink = 0.6 oz pure alcoho l) Sex Assigned at Date Recorded Not on file documented as of this encounter Miscellaneous Notes Telephone Encounter - Aleah Giles E - 01/04/2020 9:00 AM EDT Call Center / Conveyor Mechanic Message - General Issue Call Provider patient sees in Clinic: Cameron Alves Caller and relationship (if other than patient-full name): Patient Call back number: [phone] Ok to leave a message: yes Reason for call: Patient called stating she sees the letter from Dr. Slim Crabtree in her [facility] portal. Patient states the letter needs to be signed, and if this could be done KAMALA. Please contact back to discuss. Disposition of Call (choose one and remove others): ??? Routine message sent to [place]: documented in this encounter Plan of Treatment Upcoming Encounters Date Type Specialty Care Team Description 04/14/2022 Office Visit Neurology Cameron Alves MD [facility] [address] [place], [place] [address] (Wo rk) documented as of [...] on filedocumented in this encounter Care Teams Space Systems Operations Superintendent Relationship Specialty Start Date End Date Lolis Moss MD PCP - General General Internal Medicine 04/15/16 [address] [facility] [address] [facility] [place] [address] documented as of this encounter
--- OUTSIDE RECORDS SUMMARY | 2022-03-18 11:29 | XMS_ITS | Encounter Summary ---
:1970 [place] [address] Care Team Providers Name Role Phone Lolis Moss MD Primary Care Provider Reason for Visit Reason Comments Medication Refill Encounter Details Date Type Department Care Team Description 05/01/2020 Refill Neurology at [facility] Cameron Alves MD [address] [facility] [place] [address] [place] [address] [phone] (Wo rk) Social History Tobacco Use Types [...] Neurology Cameron Alves MD [facility] [address] [place] [address] (Wo rk) documented [...] on filedocumented in this encounter Care Teams Electronic Instrument Trades Worker Relationship Specialty Start Date End Date Lolis Moss MD PCP - General General Internal Medicine 03/28/20 12/17/[address] [facility] [address] KARINA SALTER [facility] [place] [address] documented as of this encounter
--- OUTSIDE RECORDS SUMMARY | 2022-03-18 11:29 | XMS_ITS | Encounter Summary ---
:1970 Author Organization [facility] [address] Care Team Providers Name Role Phone Lolis Moss MD Primary Care Provider Encounter Details Date Type Department Care Team Description 05/08/2020 Hospital Encounter Ultrasound at [facility] Samantha Bonilla Acute pelvic pain, [facility] MD Chayo female [facility] [address] [place], [place] [phone] [facility] Social History Tobacco Use Types Packs/Day Years [...] Sig Dispensed Refills Start Date End Date cetirizine (ZyrTEC) Take 10 mg by mouth [...] 11/15 B2, 100 mg daily. TabletIndications: Headache(784.0) candesartan (Atacand) TAKE 1 TABLET BY MOUTH 90 tablet 1 01/07/2021 16 mg EVERY EVENING TabletIndications: Migraine with aura and without status migrainosus, not intractable SUMAtriptan-Naproxen Take 1 tablet by mouth 9 tablet 0 06/18/2020 85-500 mg Tablet at onset of migraine, may repeat after 2 hours if needed. Max of 2 tabs in 24 hours. Max of 2 days per week. Patient must be seen in follow up for further refills. Linzess 290 mcg TK 1 C PO D. 0 03/18/2020 021 Capsule divalproex EC Take 1 tablet by mouth 180 tablet 1 02/29/2020 08/26/2020 (Depakote) 250 mg 2 times daily. Tablet, Delayed Release (E.C.) clonazePAM (KlonoPIN) Take 1 tablet by mouth 270 tablet 0 05/21/2020 0.5 mg Tablet 3 times daily as needed for Anxiety for up to 90 days. montelukast Take 1 tablet by mouth 30 tablet 2 02/26/2020 1 (Singulair) 10 mg nightly. Tablet linaclotide (Linzess) Take 145 mcg by mouth 0 06/18/2020 145 mcg Capsule daily. estrogen, Take 1 tablet by mouth 90 tablet 3 01/31/2020 conjugated,-medroxypr daily. ogesterone (Prempro) 0.45-1.5 mg Tablet fexofenadine Take 1 tablet by mouth 90 tablet 3 01/31/2020 06/18/2020 (COREY) 180 mg daily. Tablet acetaminophen Take 1,000 mg by mouth 0 09/24/2020 (Tylenol) 500 mg every 6 hours as Tablet needed for Pain. famotidine (Pepcid) Take 40 mg by mouth 0 01/07/2021 40 mg Tablet daily. chlorhexidine Take 15 mLs by mouth 2 250 mL 3 01/29/2020 09/26/2020 (PERIDEX) 0.12 % times daily. Mouthwash topiramate (Topamax) Take 1 tablet by mouth 90 tablet 3 03/202001/07/2021 200 mg Tablet nightly. SUMAtriptan (Imitrex) Take one tablet at 9 tablet 3 201906/18/2020 100 mg Tablet onset of migraine, may repeat in 2 hours if needed. No more than 2 tabs in 24 hours. Do not use more than 2 days per week. DULoxetine DR Take 1 capsule by 180 capsule 1 01/15/2020 (Cymbalta) 60 mg mouth 2 times daily. Capsule, Delayed Release(E.C.)Indicati ons: Depression, unspecified depression type OLANZapine (ZyPREXA) Take 1 tablet by mouth 540 tablet 1 08/201905/14/2020 2.5 mg Tablet every 4 hours. During waking hours erenumab-aooe Inject 140 mg 1 mL 5 01/05/2020 06/05/20 20 (Aimovig subcutaneously every Autoinjector) 140 30 days. mg/mL Auto-Injector ubrogepant (Ubrelvy) Take 100 mg by mouth 10 tablet 13 12/3101/07/2021 100 mg as needed. TabletIndications: Chronic migraine without aura, with intractable migraine, so stated, with status migrainosus varenicline (Chantix) Take by mouth with 53 tablet 0 201906/18/2020 0.5 mg meals. Days 1-3: 0.5 TabletIndications: mg ONCE daily. Days Smoking 4-7: 0.5 mg TWICE daily. Day 8 until the end of treatment: 1 mg TWICE daily. ibuprofen Take 1 tablet by mouth 30 tablet 12 09/22/2019 (Advil;Motrin) 600 mg every 6 hours as Tablet needed for Pain. baclofen (LIORESAL) Take 0.5 tablets by 270 tablet 3 019 06/18/2020 20 mg mouth 3 times daily as TabletIndications: needed. Fibromyalgia, Psoriatic arthritis documented as of this encounter Plan of Treatment Upcoming Encounters Date Type Specialty Care Team Description 04/14/2022 Office Visit Neurology Cameron Alves MD [facility] Medical [facility] [address] [place], [place] [address] (Wo rk) documented as of this encounter Goals Goal Patient Goal Associated Recent Patient-Stated? Author Type Problems Progress Home Medication Patient No Kendrick ridley, Compliance and Facing Kan Restrepo, Understanding Action Plan [facility] [...] Procedure Name Priority Date/Time Associated Comments Diagnosis US TRANSVAGINAL NON Routine 05/08/2020 3:39 PM Acute pelvic pa in, Results for this OB EDT female procedure are i n the results section. [...] below. Electronically signed by: Hansa Mancilla MD, [facility] ([phone]), at 3:59 PM ? Hansa Mancilla, Staff Physician Electronically Signed Final Report ?? 04:06 pm Narrative 05/08/2020 4:06 PM EDT Gynecological Report ?(Signed Final 05/08/2020 04:06 pm) PATIENT INFO: ID #: ? [id number] ?: ??[birth year] (49 yrs)(F) Name: ? CAROLINA Angel MARGO ? Visit Date: 05/08/2020 03:22 pm PERFORMED BY: Performed By: ? Katarzyna Merino RDMS Attending: ?Charo FRANK, Hansa Hale Referred By: ?SAMANTHA BONILLA Location: ? [place] SERVICE(S) PROVIDED: ??UTV - Transvaginal - [id number] ?[id number] INDICATIONS: ??PMB s/p BSO TECHNIQUE/SCAN QUALITY: Technique: [...] No adnexal mass is seen. Procedure Note Hansa Mancilla MD - 05/08/2020Formatt ing of this note might be different from the original. Gynecological Report (Signed Final 04/17 04:06 pm) PATIENT INFO: ID #: [id number] : [birth year] (49 y rs)(F) Name: CAROLINA ARAGON Visit Date: 04/17 03:22 pm PERFORMED BY: Performed By: Katarzyna Merino RDMS Attending: Hansa Mancilla MD Referred By: SAMANTHA BONILLA Location: [place] SERVICE(S) PROVIDED: UTV - Transvaginal - [id number] INDICATIONS: PMB s/p BSO TECHNIQUE/SCAN QUALITY: Technique: [...] below. Electronically signed by: Hansa Mancilla MD, [facility] ([phone]), at 3:59 PM Hansa Mancilla, Staff Physician Electronically Signed Final Report 05/08 04:06 pm Samantha Bonilla MD [facility] PELVIC ORDERABLES documented in this encounter Visit Diagnoses Diagnosis Acute pelvic pain, female Unspecified symptom associated with fema le genital organs documented in this encounter Care Teams Aircraft Painter Relationship Specialty Start Date End Date Lolis Moss MD PCP - General General Internal Medicine 03/28/20 12/17/[address] [facility] [place] [address] documented as of this encounter
--- OUTSIDE RECORDS SUMMARY | 2022-03-18 11:30 | XMS_ITS | Encounter Summary ---
:1970 Author Organization [facility] [place] [address] Care Team Providers Name Role Phone Lolis Moss MD Primary Care Provider Reason for Referral Diagnostic Test (Routine) - Closed Specialty Diagnoses / Procedures Referred By Contact Refer red To Contact Diagnoses Chest pain, unspecified type Kesha Perera MD [facility] Non-Inv Card Lab Procedures Echocardiogram Stress (Treadmill) [facility] [place] [address] [place] [address] Referral ID Status Reason Start Date Expiration Date Visits V isits Requested Authorized [id number] Closed Specialty 12/22/2019 12/21/2020 1 1 Service Requested Reason for Visit Reason Comments Chest Pain pt been having left and righ t chest pain,been increasing,when swallowing she gets pain,/pt feels she out of shape,, she has been smoking weed along with smoking ciggs.pt had gayle rgery in 09/2019, she gets out of breath,she noticed this week her heart skipped a beat Other family history of heart prob lems,pt went to run around the house yesterday for something and she had a pounding in her chest that has never happened before,last night around 11: 15p.m as she was brushing her teeth she felt a spike in her left shoulder, it went away,she's very nervous,she had some wheezing last night Other pt gets tired reral easy Encounter Details Date Type Department Care Team Description 12/22/2019 Office Visit Internal Medicine at [facility]ha Perera Ch est pain, unspecified type; [employer] Kolton Zapata MD Unintentional weight loss [address] [place] [address] [phone] PRIMARY CARE [place], [place] [address] Social History Tobacco Use Types Packs/Day Years Used Date Former Smoker Cigarettes 0.25 15 Quit: 08/30/19 18 Smokeless Tobacco: Never Used Comments: 12/18/2019 started chantex Alcohol Use Standard Drinks/Week Comments Not Currently 0 (1 standard drink = 0.6 oz pure alcoho l) Sex Assigned at Date Recorded Not on file documented as of this encounter Last Filed Vital Signs Vital Sign Reading Time Taken Comments Blood Pressure 120/80 12/22/2019 2:35 PM EDT Pulse 83 12/22/2019 2:35 PM EDT Temperature 36.6 ??C (97.9 ??F) 12/22/2019 2:35 PM EDT Respiratory Rate - - Oxygen Saturation 99% 12/22/2019 2:35 PM EDT Inhaled Oxygen Concentration - - Weight 49.8 kg (109 lb 12.8 oz) 12/22/2019 2:35 PM EDT Height 158 cm (5' 2.21) 12/22/2019 2:35 PM EDT Body Mass Index 19.95 12/22/2019 2:35 PM EDT documented in this encounter Progress Notes Kesha Perera MD - 12/22/2019 2:20 PM EDT Here for urgent visit. Chief Complaint Patient presents with ??? Chest Pain pt been having left and right chest pain,been increasing,when swallowing she gets pain,/pt feels she out of shape,, she has been smoking weed along with smoking ciggs.pt had surgery in 09/2019, she gets out of breath,she noticed this week her heart skipped a beat ??? Other family history of heart problems,pt went to run around the house yesterday for something and she had a pounding in her chest that has never happened before,last night around 11:15p.m as she was brushing her teeth she felt a spike in her left shoulder, it went away,she's very nervous,she had some wheezing last night ??? Other pt gets tired reral easy She reports she has had chest pain. She is having SOB and chest pain with climbing stairs. Generallythis is a dull ache but yesterday, she ran around to her back yard and she developed a chest pain with activity. She states this happened just as she stopped. This is new for her. Lasted approx 1 min. She also had a chest pain while she was cleaning her teeth yesterday. This occurred at rest. Lasted afew seconds. She has had similar episodes over the past week but yesterday the episodes were more intense. She can also feel chest pain with swallowing, over bilateral lower chest area. Had a GI telehealth appt today to address dysphagia. I don't see mention of chest pain with swallowing in their note. She has mentioned this in [employer] messages. She has lost weight and has been smoking marijuana to help her appetite. Weight was 164lbs in 04/2017and then noted to be 143lbs in 05/2018 and 123lbs in 03/2019. She is concerned about lung cancer. Has a friend who had lung cancer after quitting smoking 20 yrs prior. She has been trying to quit. Difficult as her also smokes. Mother had stroke in her early 20s, AAA at 50yo. Paternal cousin just had heart surgery. PGM had stroke. She has extensive questions and symptomatology in her [facility] messages. We were not able to address allof her concerns and tried to stay focused on her chest pain. Her weight loss concerns her and her PCP is aware and has discussed this with her at prior visits. SH: + h/o tobacco use. On day 4 of chantix. smokes cig. Patient Active Problem List Diagnosis Code ??? [...] Anxiety F41.9 ??? Depression F32.9 ??? Abnormal uterine bleeding (AUB) N93.9 ??? Abnormal finding on ultrasound R93.89 Outpatient Medications Marked as Taking for the 12/22/19 encounter (Office Visit) with Kesha Perera MD Medication Sig Dispense Refill ??? chlorhexidine (PERIDEX) 0.12 % Mouthwash Take 15 mLs by mouth 2 times daily. 250 mL 0 ??? varenicline (Chantix) 0.5 mg Tablet Take by mouth with meals. Days 1-3: 0.5 mg ONCE daily. Days 4-7: 0.5 mg TWICE daily. Day 8 until the end of treatment: 1 mg TWICE daily. 53 tablet 0 ??? clonazePAM (KlonoPIN) 0.5 [...] by mouth nightly. 30 tablet 2 ??? ubrogepant (Ubrelvy) 100 mg Tablet Take 100 mg by mouth as needed. 10 tablet 13 ??? traZODone (Desyrel) 50 mg Tablet Take 1 tablet by mouth nightly. 90 tablet 0 ??? candesartan (Atacand) 16 mg Tablet Take 1 tablet by mouth every evening. 90 tablet 0 ??? ondansetron (Zofran) 8 mg Tablet Take 1 tablet by mouth 2 times daily as needed for Nausea. 20 tablet 0 ??? estrogen, conjugated,-medroxyPROGESTERone (PREMPRO) 0.3-1.5 mg Tablet Take 1 tablet by mouth daily for 30 days. 90 tablet 0 ??? ibuprofen (Advil;Motrin) 600 mg Tablet Take 1 tablet by mouth every 6 hours as needed for Pain. 30 tablet 12 ??? DULoxetine (CYMBALTA) 60 mg Capsule, Delayed Release(E.C.) Take 1 capsule by mouth 2 times daily. 60 capsule 3 ??? AIMOVIG AUTOINJECTOR 140 mg/mL Auto-Injector INJECT THE CONTENTS OF ONE PEN (140MG) SUBCUTANEOUSLY EVERY 30 DAYS. 1 mL 5 ??? topiramate (TOPAMAX) 200 mg Tablet Take 1 tablet by mouth nightly. 90 tablet 3 ??? baclofen (LIORESAL) 20 mg Tablet Take 0.5 tablets by mouth 3 times daily as needed. 270 tablet 3 ??? omeprazole/sodium bicarbonate (ZEGERID ORAL) Take 1 tablet by mouth daily. ??? MAGNESIUM ORAL Take 1 tablet by mouth daily. ??? UBIDECARENONE (COENZYME Q10 ORAL) Take 1 tablet by mouth daily. ??? multivitamin (THERAGRAN) Tablet Take 1 tablet by mouth daily. ??? riboflavin, vitamin B2, 100 mg Tablet Take 1 tablet by mouth daily. 30 tablet 11 BP 120/80 (BP Location (NBP): Left arm, Patient Position: Sitting, BP Cuff Sizes: Adult (25-34 cm)) Pulse 83 Temp 36.6 ??C (97.9 ??F) (Oral) Ht 158 cm (5' 2.21) Wt 49.8 kg (109 lb 12.8 oz) LMP 09/22/2019 Comment: pt had ophectomy SpO2 99% Unknown BMI 19.95 kg/m?? She is a bit anxious, no distress, pleasant, comfortable, conversant Reg rhythm, nml rate, no murmurs Lungs ctab Gait steady/stable A/P: Chest pain which has occurred spontaneously at rest as well as with exertion. I don't have a clear answer for her chest pain based on history and exam. EKG nml in clinic. - stress echo for reassurance this is not ASCVD - CXR (she elects to have this as [facility], provided her with xray requisition to bring with her) We discussed that CXR is not a screening exam for lung cancer--this is a diagnostic w/u for causes of chest pain. She had chest CTA 04/2019 which was neg for PE, neg for nodules/masses. Weight loss: She has had weight loss over the past 2.5 yrs as noted in HPI. She has had labs, Chest CT, breast imaging, BSO in 09/2019 with benign pathology. Last EGD/colo in 01/2016. [place] neg. EGD showed stenosis from PUD. She is on topiramate which can cause weight loss. She started this in 2013 but it could be contributing in addition to stress. She has been on topiramate from prior to when she was losing weight, but her weight loss has seemed to accelerate since her dose was increased in 08/2018 from 100mg to 200mg. An additional 25mg was added in 10/23/19. I didn't discuss this in depth with pt at time of visit. Her topiramate dosing and relation to her weight was researched via chart review after the visit. I will communicate this to her PCP as it is likely impacting her weight. Her h/o using topiramate islong and complex and I am not sure who would make changes as both neuro and psychiatry have been involved in that dosing. documented in this encounter Plan of Treatment Upcoming Encounters Date Type Specialty Care Team Description 04/14/2022 Office Visit Neurology Cameron Alves MD [facility] [address] [place], [place] [id number] (Wo rk) documented as of this [...] Name Priority Date/Time Associated Diagnosis Comme nts EKG 12-LEAD Routine 12/22/2019 2:52 PM Chest pain, Results f or this EDT unspecified type procedure a re in the results section. documented in this encounter Results STRESS ECHOCARDIOGRAM W CONTRAST LMTD SPEC DOPP,COLOR DOPP (12/29/2019 9:11 AM EDT) P athologist Signature EF 65 [facility] Specimen (Source) Anatomical Location Collection Method / Collectio n Time Received Time / Laterality Volume 12/29/2019 Narrative [facility] - 12/29/2019 10:03 AM ED T Procedure: ?Stress Echocardiogram Patient: ?SLICER LISSETH L ?(Age): 1970(49y) Med Rec#: ? [id number] ?Sex: ?F ? Site Loc: ? [facility] ?Ht / Wt: ??160.02(cm)/52.1 Pt. Loc: ?Echo Lab ?BSA: ?1.53 Study Date: ?? 12/29/2019 ?Pt. Type: Tape: ? Referring: Kesha Perera Referring: Lolis Moss Reading: Niels Hairston ([id number]) Edge Bander Hand: Natalee Lyon Bingo Attendant: Milind Kang Diagnosis: *Chest pain, unspecified (R07.9) Stage ? BP ?HR ? Rest ?138/82 ?80 ? Peak ?134/78 ?150 ? Recovery ?122/80 ?98 ? SUMMARY: 1. BASELINE: Normal global and segmental biventricular systolic function with an estimated left ventricular eject ion fraction of 65%. 2. STRESS: Patient followed a Ed prot ocol. ??The total exercise duration was: 7:09 min:sec. ??The patien t achieved a level of 9 METS. The patient achieved a maximum heart rat e of 150 which is 87% of the maximum predicted heart rate (173 beats/ min). The target heart rate was achieved. ??The study was terminated bec ause of fatigue. ??The patient did not express feelings of chest discomfort . ??There were no significant ST segment changes. 3. ECHOCARDIOGRAPHIC FINDINGS: There is normal global left ventricular systolic function. ??There are no left v entricular segmental wall motion abnormalities. 4. IMPRESSION: There is no echocardiogra phic evidence of ischemia at this level of stress. 5. See remainder of report for additiona l findings. Findings Rest: Study Quality: ? Adequate Left Ventricle: ? The left ventricul ar chamber size is normal. ?Left ventricular wall thickness is normal. ?There is normal global left ventri cular systolic function. ??Ejection fraction is estimated to be 65%. ?There are no left ventricular segm ental wall motion abnormalities. ?Doppler assessment is consistent w ith normal left sided filling pressure. ?A false chord is observed in the l eft ventricle. Left Atrium: ? The left atrium is no rmal in size.(24ml/m2) Right Ventricle: ? The right ventric le is normal in size. ?Right ventricular global systolic function is probably normal. ?Pulmonary artery hypertension coul d not be assessed due to inadequate tricuspid regurgitation jet. Right Atrium: ? The right atrium is normal in size. Aortic Valve: ? The aortic valve is tricuspid. ?Systolic excursion of the aortic v alve is normal. ?There is no evidence of aortic luis ve stenosis. ?There is no evidence of aortic reg urgitation. Mitral Valve: ? The mitral valve christine flets appear normal. ?There is trace mitral regurgitatio n present. Tricuspid Valve: ? The tricuspid luis ve is probably normal. ?There is no evidence of tricuspid valve regurgitation present. Pericardium: ? The pericardium appea rs normal and there is no evidence of a pericardial effusion. Aorta: ? The aortic root is normal i n size. ?The ascending aorta was not well v isualized. Stress: ? EKG: normal sinus rhythm. ?The patient's oxygen saturation wa s 98%. ?The patient is on an anti-hyperten sive; ??( ) hours since taken. Misc: ? See remainder of report for additional findings. ?Definity contrast (one 1.5 ml vial )was used to enhance endocardial definition. Excess contrast was discarde d. ?Stress echo, limited spectral Dopp ler, color Doppler and ECG interpretation performed. Findings Peak: Predicted Values:The patient achieved a maximum heart rate of 150 which is 87% of the maximum predicted heart ra te (173 beats/min). ??The target heart rate was achieved. Left Ventricle: ? There is normal gl obal left ventricular systolic function. ?There are no left ventricular segm ental wall motion abnormalities. Stress: ? Patient followed a Ed p rotocol. ?The patient exercised into stage 3 . ?The total exercise duration was:7: 09 min:sec. ?The study was terminated because o f fatigue. ?The patient did not express feelin gs of chest discomfort. ?The patient experienced shortness of breath. ?The patient felt light-headed. Pat ient reported vague lightheadedness/dizziness starting in ea rly exercise and persisted into recovery. Resolved in prolonged recovery . ?The blood pressure response was bl unted. ?Exercise capacity was good. ?The patient achieved a level of 9 METS. ?There were no arrhythmias. ?There were no significant ST segme nt changes. ?This was a negative electrocardiog raphic stress test for ischemia. ?EKG: sinus tachycardia. ?The patient's oxygen saturation wa s 98%. Findings Recovery: Stress: ? EKG: normal sinus rhythm. Chambers 2D ?Value ?Units (Range) ? RVIDd ??Base ? 3.3 ?cm ? IVSd (2D) ? 0.8 ?cm ? LVPWd (2D) ?0.8 ?cm ? IVS:LVPW ratio (2D) 1 ?ratio ? RWT (2D) ?0.36 ? ratio ? RWT PW (2D) ? 0.36 ? ratio ? LVIDd (2D) ?4.4 ?cm ? LVIDs (2D) ?3 ?cm ? LVIDd (2D) index ?2.88 ? cm/m2 ? LVIDs (2D) index ?1.96 ? cm/m2 ? LV FS (2D) ?31.82 ?% ? EF Teichholz (2D) ?? 60.09 ?% ? Ao root diameter (2D3.4 ?cm (2.1 - 3.6) ? Volumes/Mass ?Value ?Units (Range) ? LA Area 4 CH ?14 ? cm2 (<21) ? RA AREA 4CH ? 14 ? cm2 ? LA ESV BP (MOD) inde23.81 ? ml/m2 ? LV mass (2D) ?109.44 ? g ? LV mass (2D) index ??71.6 ? g/m2 ? Diastolic/Systolic Function ?Value ?Units (Range) ? MV E-wave Vmax ?0.72 ? m/sec ? MV deceleration [id number] ?msec ? MV A-wave Vmax ?0.66 ? m/sec ? MV E:A ratio ?1.1 ?ratio ? LV septal e' Vmax ?? 0.08 ? m/sec ? LV lateral e' Vmax ??0.12 ? m/sec ? LV E:e' septal ratio9.03 ? ratio ? LV E:e' lateral rati6.02 ? ratio ? Tricuspid Valve ?Value ?Units (Range) ? TAPSE ? 2 ?cm ? RV lateral s' Vmax ??0.14 ? m/sec ? Wall Motion: Segment Name ?Rest ? Peak ? Base-Anteroseptal ?? Normal ? Normal ? Base-Anterior ? Normal ? Normal ? Base-Anterolateral ??Normal ? Normal ? Base-Posterolateral Normal ? N ormal ? Base-Inferior ? Normal ? Normal ? Base-Inferoseptal ?? Normal ? Normal ? Mid-Anteroseptal ?Normal ? Normal ? Mid-Anterior ?Normal ? Normal ? Mid-Anterolateral ?? Normal ? Normal ? Mid-Posterolateral ??Normal ? Normal ? Mid-Inferior ?Normal ? Normal ? Mid-Inferoseptal ?Normal ? Normal ? [place]-Septal ? Normal ? Normal ? [place]-Anterior ? Normal ? Normal ? [place]-Lateral ?Normal ? Normal ? [place]-Inferior ? Normal ? Normal ? [place]-Tip ?Normal ? Normal ? This report has been electronically sign ed by: _ Niels Hairston MD ? 12/29/2019 1 0:03:26 Images reviewed and interpretation diogenes duran [facility] Cardiac Ultrasound Laboratory Procedure Note Niels Hairston MD - 12/29/2019Format ting of this note might be different from the original. Procedure: Stress Echocardiogram Patient: MARGO AMARO(Age): 1102/1970(49y) Med Rec#: [id number] Sex: F Site Loc: [facility] Ht / Wt: 160.02(cm)/52.1 Pt. Loc: Echo Lab BSA: 1.53 Study Date: 12/29/2019 Pt. Type: Tape: Referring: Kesha Perera Referring: Lolis Moss Reading: Niels Hairston ([id number]) Edge Bander Hand: Natalee Lyon Bingo Attendant: Milind Kang Diagnosis: *Chest pain, unspecified (R07.9) Stage BP HR Rest 138/82 80 Peak 134/78 150 Recovery 122/80 98 SUMMARY: 1. BASELINE: Normal global and segmental biventricular systolic function with an estimated left ventricular eject ion fraction of 65%. 2. STRESS: Patient followed a Ed prot ocol. The total exercise duration was: 7:09 min:sec. The patient achieved a level of 9 METS. The patient achieved a maximum heart rat e of 150 which is 87% of the maximum predicted heart rate (173 beats/ min). The target heart rate was achieved. The study was terminated becau se of fatigue. The patient did not express feelings of chest discomfort . There were no significant ST segment changes. 3. ECHOCARDIOGRAPHIC FINDINGS: There is normal global left ventricular systolic function. There are no left louie tricular segmental wall motion abnormalities. 4. IMPRESSION: There is no echocardiogra phic evidence of ischemia at this level of stress. 5. See remainder of report for additiona l findings. Findings Rest: Study Quality: Adequate Left Ventricle: The left ventricular marcos mber size is normal. Left ventricular wall thickness is norm al. There is normal global left ventricular systolic function. Ejection fraction is estimated to be 65%. There are no left ventricular segmental wall motion abnormalities. Doppler assessment is consistent with n ormal left sided filling pressure. A false chord is observed in the left v entricle. Left Atrium: The left atrium is normal i n size.(24ml/m2) Right Ventricle: The right ventricle is normal in size. Right ventricular global systolic funct ion is probably normal. Pulmonary artery hypertension could not be assessed due to inadequate tricuspid regurgitation jet. Right Atrium: The right atrium is normal in size. Aortic Valve: The aortic valve is tricus pid. Systolic excursion of the aortic valve is normal. There is no evidence of aortic valve st enosis. There is no evidence of aortic regurgit ation. Mitral Valve: The mitral valve leaflets appear normal. There is trace mitral regurgitation pre sent. Tricuspid Valve: The tricuspid valve is probably normal. There is no evidence of tricuspid valve regurgitation present. Pericardium: The pericardium appears nor mal and there is no evidence of a pericardial effusion. Aorta: The aortic root is normal in size . The ascending aorta was not well visual ized. Stress: EKG: normal sinus rhythm. The patient's oxygen saturation was 98% . The patient is on an anti-hypertensive; ( ) hours since taken. Misc: See remainder of report for additi onal findings. Definity contrast (one 1.5 ml vial)was used to enhance endocardial definition. Excess contrast was discarde d. Stress echo, limited spectral Doppler, color Doppler and ECG interpretation performed. Findings Peak: Predicted Values:The patient achieved a maximum heart rate of 150 which is 87% of the maximum predicted heart ra te (173 beats/min). The target heart rate was achieved. Left Ventricle: There is normal global l eft ventricular systolic function. There are no left ventricular segmental wall motion abnormalities. Stress: Patient followed a Ed protoco l. The patient exercised into stage 3. The total exercise duration was:7:09 mi n:sec. The study was terminated because of fat igue. The patient did not express feelings of chest discomfort. The patient experienced shortness of br eath. The patient felt light-headed. Patient reported vague lightheadedness/dizziness starting in ea rly exercise and persisted into recovery. Resolved in prolonged recovery . The blood pressure response was blunted . Exercise capacity was good. The patient achieved a level of 9 METS. There were no arrhythmias. There were no significant ST segment ch anges. This was a negative electrocardiographi c stress test for ischemia. EKG: sinus tachycardia. The patient's oxygen saturation was 98% . Findings Recovery: Stress: EKG: normal sinus rhythm. Chambers 2D Value Units (Range) RVIDd Base 3.3 cm IVSd (2D) 0.8 cm LVPWd (2D) 0.8 cm IVS:LVPW ratio (2D) 1 ratio RWT (2D) 0.36 ratio RWT PW (2D) 0.36 ratio LVIDd (2D) 4.4 cm LVIDs (2D) 3 cm LVIDd (2D) index 2.88 cm/m2 LVIDs (2D) index 1.96 cm/m2 LV FS (2D) 31.82 % EF Teichholz (2D) 60.09 % Ao root diameter (2D3.4 cm (2.1 - 3.6) Volumes/Mass Value Units (Range) LA Area 4 CH 14 cm2 (<21) RA AREA 4CH 14 cm2 LA ESV BP (MOD) inde23.81 ml/m2 LV mass (2D) 109.44 g LV mass (2D) index 71.6 g/m2 Diastolic/Systolic Function Value Units (Range) MV E-wave Vmax 0.72 m/sec MV deceleration [id number] msec MV A-wave Vmax 0.66 m/sec MV E:A ratio 1.1 ratio LV septal e' Vmax 0.08 m/sec LV lateral e' Vmax 0.12 m/sec LV E:e' septal ratio9.03 ratio LV E:e' lateral rati6.02 ratio Tricuspid Valve Value Units (Range) TAPSE 2 cm RV lateral s' Vmax 0.14 m/sec Wall Motion: Segment Name Rest Peak Base-Anteroseptal Normal Normal Base-Anterior Normal Normal Base-Anterolateral Normal Normal Base-Posterolateral Normal Normal Base-Inferior Normal Normal Base-Inferoseptal Normal Normal Mid-Anteroseptal Normal Normal Mid-Anterior Normal Normal Mid-Anterolateral Normal Normal Mid-Posterolateral Normal Normal Mid-Inferior Normal Normal Mid-Inferoseptal Normal Normal [place]-Septal Normal Normal [place]-Anterior Normal Normal [place]-Lateral Normal Normal [place]-Inferior Normal Normal [place]-Tip Normal Normal This report has been electronically sign ed by: _ Niels Hairston MD 12/29/2019 10:03:2 6 Images reviewed and interpretation verif ied [facility] Cardiac Ultrasound Laboratory Kesha Perera MD ECHO ORDERABLES Performing Organization Address City/State/ZIP Code Phon e Number HEARTLAB SYSTEM EKG 12 Lead (12/22/2019 2:52 PM EDT) Component Value Ref Range Test Analysis Performed Pathologis t Method Time At Signature Ventricular rate 72 BPM MUSE SYSTEM Atrial Rate 72 BPM MUSE SYSTEM P-R Interval 134 ms MUSE SYSTEM QRS Duration 84 ms MUSE SYSTEM Q-T Interval 372 ms MUSE SYSTEM QTC Calculated 407 ms MUSE SYSTEM (Bezet) Calculated P Bradley 55 degrees MUSE SYSTEM Calculated R Bradley 42 degrees MUSE SYSTEM Calculated T Bradley 40 degrees MUSE SYSTEM INTERPRETATION Normal sinus rhythm with sinus arrhythmia MUSE SYSTEM Normal ECG When compared with ECG of 02-APR-2016 08:34, No significant change was found Confirmed by MD HERBIE, NICO ([id number]) on 12/23/2019 12:57:14 PM Specimen Anatomical Collection Method Collection Time Receive d Time (Source) Location / / Volume Laterality 12/22/2019 2:52 PM 0 EDT 12:57 PM EDT Kesha Perera MD ECG ORDERABLES Performing Organization Address City/State/ZIP Code Phon e Number MUSE SYSTEM documented in this encounter Visit Diagnoses Diagnosis Chest pain, unspecified type Unintentional weight loss Loss of weight Chest pain, unspecified type documented in this encounter Care Teams Mohs Surgeon Relationship Specialty Start Date End Date Lolis Moss MD PCP - General General Internal Medicine 04/15/16 [address] [facility] [address] KARINA SALTER [facility] [place] [address] documented as of this encounter
--- OUTSIDE RECORDS SUMMARY | 2022-03-18 11:30 | XMS_ITS | Encounter Summary ---
:1970 Author Organization [facility] [place] [address] Care Team Providers Name Role Phone Lolis Moss MD Primary Care Provider Reason for Referral Diagnostic Test (Routine) - Closed Specialty Diagnoses / Procedures Referred By Contact Refer red To Contact Radiology Diagnoses Dysphagia, unspecified type Haydee Santillan PA [facility] Rad Xray Procedures XR Fluoro Barium Swallow [facility] [address] [place] [address] [place] [address] [place] [address] Referral ID Status Reason Start Date Expiration Date Visits V isits Requested Authorized [id number] Closed Specialty 01/03/2020 07/05/2021 1 1 Service Requested Encounter Details Date Type Department Care Team Description 01/03/2020 Telephone Gastroenterology at [facility] [place]dee Santillan [facility] [place] [address] [facility] [phone] GASTROENTEROLOGY [place], [place] [address] (Wo rk) Social History Tobacco [...] Telephone Encounter - Haydee Santillan PA - 01/03/2020 12:05 PM EDT Received message from patients PCP regarding Ms. Boone and her persistent dysphagia Discussed proceeding with a barium swallow Can you please reach out to pt and see if she is agreeable. I will put orders in. If so, please route to accredited legal secretary team to arrange documented in this encounter Plan of Treatment Upcoming Encounters Date Type Specialty Care Team Description 04/14/2022 Office Visit Neurology Cameron Alves MD [facility] [address] [place], [place] [address] (Wo rk) documented as of this [...] 90-150 days documented as of this encounter Results XR Fluoro Barium Swallow [...] report, please contact e number below. ? Electronically signed by: CHAPARRITA Dorman [facility] ([phone]), at 01/05/2020 4:55 PM Narrative 01/05/2020 4:55 PM EDT EXAMINATION: XR FLUORO BARIUM SWALLOW SINGLE CONTRAST CLINICAL HISTORY: dysphagia with tablet TECHNIQUE: Double contrast esophagram was performed which included rapid sequence imaging of the pharynx during swallowing in AP a nd lateral projection.. Fluoroscopic spot films were obtained. Fluoro time: 1.75 minutes COMPARISON: Chest radiograph dated 10/31/[address] chest dated 04/27/2019 FINDINGS: The sweet pickled fruit maker view of the abdomen reveals a large [...] and CT chest dated 04/27/2019 FINDINGS: The sweet pickled fruit maker view of the abdomen reveals a large [...] this report, please contact e number below. Electronically signed by: Tushar Samuels [facility] ([phone]), at 01/05/2020 4:55 PM Akira Mittal MD IMG FLUORO ORDERABLES documented in this encounter Visit Diagnoses Diagnosis Dysphagia, unspecified type Dysphagia, unspecified type documented in this encounter Care Teams Computer Graphic Artist Relationship Specialty Start Date End Date Lolis Moss MD PCP - General General Internal Medicine 04/15/16 [address] [facility] [address] KARINA SALTER [facility] [place] [address] documented as of this encounter
--- OUTSIDE RECORDS SUMMARY | 2022-03-18 11:30 | XMS_ITS | Encounter Summary ---
:1970 Author Organization [facility] [place] [address] Care Team Providers Name Role Phone Lolis Moss MD Primary Care Provider Reason for Visit Reason Comments Dental Pain Encounter Details Date Type Department Care Team Description 12/04/2019 TH Visit Internal Medicine at Lolis Moss onic dental (TeleHealth) [facility] Kolton Gimenez MD infection [address] [place], [place] [address] [facility] [place] [address] Social History Tobacco Use Types Packs/Day Years Used Date Former Smoker Cigarettes 0.5 15 Quit: 08/30/19 18 Smokeless Tobacco: Never Used Comments: Started smoking at 45 Alcohol Use Standard Drinks/Week Comments Not Currently 0 (1 standard drink = 0.6 oz pure alcoho l) Sex Assigned at Date Recorded Not on file documented as of this encounter Progress Notes Jean Zaragoza, THEO - 12/04/2019 4:40 PM EDT Patient contacted at Preferred phone: [phone] Patient confirms location for visit as: Home address: [address] [place] [phone] If phone visit: patient verbally consents to this telephone visit and understands that this visit may be billed, similar to a clinic office visit. Medications were reconciled. Allergies were reviewed. Chief complaint was updated. Questionnaires administered and results (can pull in with .Q(questionnaire)) Please place an X in the box if the questionnaire was assigned [] Pediatric well visit questionnaire(s) - Norbert escalante, M-David (18/24 mo) [] PHQ-9, ELIANA-7, AUDIT for behavioral health issues [] BAM (Brief addiction monitor) for MAT visit [] FALLS questionnaire for hospital follow-up [] CCSA & FALLS for new medicaid [] AWV questionnaire for Annual Wellness Visits [] CHIROPRACTIC Questionnaire [x] NONE Lolis Moss MD - 12/04/2019 4:40 PM EDT Telephone visit Could not make telehealth work Patient is in [place], [place] I am in [place], [place] Discussed that the visit will be billed Dental pain Long standing dental problems enanamal erosions Needs dental work, but does not have a dentist And can not see someone at present Temp up over the weekend To 101.7 Has not checked since, but has felt sweating And mouth feels pussy Lower gum And some on the upper right side Not eating a lot--mouth does not taste good Taking good fluids Making good urine Has been treating with peroxide and water Brushing and flossing In the back it is red and swollen She sent in some pictures Does have red and swelling around the teeth A little cough at night Has usual headaches A little short of breath The Singulair is helping the nose She is still blowing the nose Has been taking the flagyl, it is sore in the mouth when she takes it No white patches in the mouth Vaginal symptom are improving Sounds herself on the phone A/P Will add some PCN for the teeth She would like some Peridex as well documented in this encounter Plan of Treatment Upcoming Encounters Date Type Specialty Care Team Description 04/14/2022 Office Visit Neurology Cameron Alves MD [facility] [place] [address] (Wo rk) documented as of [...] of this encounter Visit Diagnoses Diagnosis Chronic dental infection Chronic periodontitis, unspecified documented in this encounter Care Teams Radio Antenna Installer Relationship Specialty Start Date End Date Lolis Moss MD PCP - General General Internal Medicine 04/15/1602/12/ [address] [facility] [address] KARINA SALTER [facility] [place] [address] documented as of this encounter
--- OUTSIDE RECORDS SUMMARY | 2022-03-18 11:30 | XMS_ITS | Encounter Summary ---
:1970 Author Organization [facility] [address] Care Team Providers Name Role Phone Lolis Moss MD Primary Care Provider Reason for Visit Reason Onset Date Comments Medication Refill 01/01/2020 Encounter Details Date Type Department Care Team Description 01/01/2020 Refill Neurology at [facility] Ch ronic migraine without aura, with intractable migraine, so stated, with status migrainosus; Kolton FRANK Migraine with aura and without status mi grainosus, not intractable [address] [place] [address] [place], [place] [address] (Wo rk) Social History Tobacco Use Types Packs/Day Years Used Date Former Smoker Cigarettes 0 15 Quit: 08/30/19 18 Smokeless Tobacco: Never Used Alcohol Use Standard Drinks/Week Comments Not Currently 0 (1 standard drink = 0.6 oz pure alcoho l) Sex Assigned at Date Recorded Not on file documented as of this encounter Miscellaneous Notes Telephone Encounter - Dawn Parada - 01/01/2020 12:21 PM EDT Call Center / [place] Message Prescription Refill Request Clinical Radio Frequency Technician message Provider patient sees in Clinic: Long Caller and relationship (if other than patient-full name): Patient Call back Number: [phone] Ok to leave a message: Yes Name of Med: -Ubrelvy -zofran -Atacand Strength of Pills: -100mg -8mg -16mg Dosing Directions: -Take 100mg by mouth as needed -Take 1 tablet by mouth 2 times charlton as needed for Nausea -Take 1 tablet by mouth every evening 30 or 90 Day Supply: 90 day Pharmacy: [facility] [place] Last Appointment: 11/22 Next Appointment: (IF CALL IS FROM PATIENT/FAMILY AND THERE IS NO FOLLOW UP SCHEDULED REVIEW CHART TO SEE WHEN APPOINTMENT IS NEEDED AND SCHEDULE BEFORE SENDING MESSAGE) Is Patient out of Medication?: Yes- Patient changed pharmacy documented in this encounter Plan of Treatment Upcoming Encounters Date Type Specialty Care Team Description 04/14/2022 Office Visit Neurology Cameron Alves MD [facility] [address] [place], [place] [address] (Wo rk) documented as of [...] of status migrainosus documented in this encounter Care Teams Manager Career Relationship Specialty Start Date End Date Lolis Moss MD PCP - General General Internal Medicine 04/15/16 [address] [facility] [address] KARINA SALTER [place] [address] documented as of this encounter
--- OUTSIDE RECORDS SUMMARY | 2022-03-18 11:30 | XMS_ITS | Encounter Summary ---
:1970 Author Organization [facility] [place] [address] Care Team Providers Name Role Phone Lolis Moss MD Primary Care Provider Encounter Details Date Type Department Care Team Description 11/28/2019 Orders Only Psychiatry Bobbi Rojas MD [facility] [place] [address] PSYCHIATRY [phone] [place], [place] [address] (Wo rk) Social History Tobacco [...] Alves MD [facility] er [address] [place] [address] (Wo rk) documented as of this [...] on filedocumented in this encounter Care Teams Manufacturing Machine Operator Relationship Specialty Start Date End Date Lolis Moss MD PCP - General General Internal Medicine 04/15/[address] [facility] [address] [place]INA [place] [address] documented as of this encounter
--- OUTSIDE RECORDS SUMMARY | 2022-03-18 11:30 | XMS_ITS | Encounter Summary ---
:1970 Author Organization [facility] [place] [address] Care Team Providers Name Role Phone Lolis Moss MD Primary Care Provider Encounter Details Date Type Department Care Team Description 01/03/2020 TH Visit Internal Medicine at Lolis Moss, (TeleHealth) Karina Gimenez MD unspecified type [address] [place], [place] [address] [facility] [phone] PRIMARY CARE [place], [place] [address] Social History Tobacco Use Types Packs/Day Years Used Date Former Smoker Cigarettes 0 15 Quit: 08/30/19 18 Smokeless Tobacco: Never Used Alcohol Use Standard Drinks/Week Comments Not Currently 0 (1 standard drink = 0.6 oz pure alcoho l) Sex Assigned at Date Recorded Not on file documented as of this encounter Progress Notes Lolis Moss MD - 01/03/2020 10:20 AM EDT Telehealth visit COVID 19 pandemic She is in [place], [place] I am in [place], [place] Discussed this visit will be billed Concerned about not eating Describes things getting stuck and not going past the carinina Then both sides of the chest hurt And later the food comes back up With reguataton several hours later She talks about the acid in her mouth causing things to disolve Has been on liquid diet Upset that she has not been able to get this scheduled at She has been in contact with [facility] They are ready to schedule, She says they are waiting for a fax [phone] They need an endoscopy request form Talks about events from hospitalization in 2016 And the effects this has on her How some of her vomiting was worse at this time Has been to the dentists They felt the acid was destroying the teeth And recommended staying away from acid foods She is still having the sweats She wonders if they are fevers related to the mouth But wonders if related to hormones She is not describe hot flashes, but wakes up with sweats She has not been taking singulair, concerned it is causing trouble with the esophagus Ok to go back to the deven She is restless and up set today A/P 1. Will make the referral at her request 2. In the end we decided not to increase the hormones at present documented in this encounter Plan of Treatment Upcoming Encounters Date Type Specialty Care Team Description 04/14/2022 Office Visit Neurology Cameron Alves MD [facility] [place], [place] [address] (Wo rk) documented as of this encounter Goals Goal Patient Goal Associated Recent Patient-Stated? Author Type Problems Progress Home Medication Patient No Kendrick n, Compliance and Facing Kan P, Understanding Action Plan [facility] [...] type documented in this encounter Care Teams Supervisor Operations Relationship Specialty Start Date End Date Lolis Moss MD PCP - General General Internal Medicine 04/15/16 0 [facility] DR KARINA SALTER [place] [address] documented as of this encounter
--- OUTSIDE RECORDS SUMMARY | 2022-03-18 11:30 | XMS_ITS | Encounter Summary ---
:1970 Author Organization [facility] [place] [address] Care Team Providers Name Role Phone Lolis Moss MD Primary Care Provider Reason for Visit Reason Onset Date Comments Reminder Appointment 12/22/2019 Encounter Details Date Type Department Care Team Description 12/22/2019 Telephone Gastroenterology at [facility] Deysi Gutiérrez, Reminder Appointment [facility] Madiha [place] [address] GASTROENTEROLOG [phone] Y DEPT Social History Tobacco Use Types Packs/Day Years Used Date Former Smoker Cigarettes 0.25 15 Quit: 08/30/19 18 Smokeless Tobacco: Never Used Comments: 12/18/2019 started chantex Alcohol Use Standard Drinks/Week Comments Not Currently 0 (1 standard drink = 0.6 oz pure alcoho l) Sex Assigned at Date Recorded Not on file documented as of this encounter Miscellaneous Notes Telephone Encounter - Deysi Gutiérrez CMA - 12/22/2019 8:56 AM EDT Called patient to review medications and allergies for their upcoming gastroenterology Type of Appointment: Telehealth appointment. Reach Patient during MA Check: Yes Notes for the provider: Notes for the nurse: documented in this encounter Plan of Treatment Upcoming Encounters Date Type Specialty Care Team Description 04/14/2022 Office Visit Neurology Cameron Alves MD [facility] [address] [place] [address] (Wo rk) documented as of this encounter Goals Goal Patient Goal Associated Recent Patient-Stated? Author Type Problems Progress DH Home Medication Patient No Kendrick ridley, Compliance and Facing Kan Restrepo, Understanding Action Plan [facility] Note: Formatting of this note might be d ifferent from the original. Patient's specific desired goal: to have fewer headaches and to use less adjunct / rescue medication Measured by: calendar, frequency of use of adjunct / rescue meds Time-frame to meet goal: 90-150 days documented as of this encounter Visit Diagnoses Not on filedocumented in this encounter Care Teams Wool Washing Machine Operator Relationship Specialty Start Date End Date Lolis Moss MD PCP - General General Internal Medicine 04/15/16 0 [facility] [address] [place] [address] documented as of this encounter
--- OUTSIDE RECORDS SUMMARY | 2022-03-18 11:30 | XMS_ITS | Encounter Summary ---
:1970 Author Organization [facility] [place] [address] Care Team Providers Name Role Phone Lolis Moss MD Primary Care Provider Reason for Referral Consultation (Routine) - Closed Specialty Diagnoses / Procedures Referred By Contact Refer red To Contact Gastroenterology Diagnoses Non-intractable vomiting with nausea, unspecified vomiting type intractable vomiting with nausea, unspecified vomiting Lolis Moss MD [facility] Gastro 4l [facility] [place] [phone] Fax: Referral ID Status Reason Start Date Expiration Date Visits V isits Requested Authorized [id number] Closed Specialty 12/12/2019 12/11/2020 1 1 Service Requested Reason for Visit Reason Comments Chest Pain Other yeast infection, Encounter Details Date Type Department Care Team Description 12/12/2019 TH Visit Internal Medicine at Lolis Moss Non -intractable (TeleHealth) Olayinka Kolton Gimenez MD vomiting with nausea, [address] [facility] unspecified vomiting [facility] [place] [phone] [facility] [phone] PRIMARY CARE [place], [place] [address] Social History Tobacco Use Types [...] encounter Progress Notes Lolis Moss MD - 12/12/2019 2:20 PM EDT telehealth visit COVID 19 pandemic She is in [place], [place] I am in [place], [place] Discussed the visit will be billed Still having trouble with the digestion She has been taking mariajuana daily at dinner to eat She feels it helps For the nausea She stopped for a while, but weight went down again Had lots of abdominal discomfort Restarted and feels that is functioning better Just using once a day The nausea pills gave her constipation, then laxatives gave her diarrhea Had referred for EDG but this has not happened Still having some reguataton She does find sleeping with head of the bed up Has been having some chest pains Hurts, a sharp pain both right and left side Can be active or rest Not other symptoms with them, does not get short of breath with them Lasts 1-2 minutes Does not radiate Has tried some gas pills, not sure if helps, maybe? Some short of breath going up the stairs, since surgery She is concerned about an aneurysm--Mom from a thoracic aneurysm We reviewed the chest CT she had last April Blood pressure 135/85 today She is concerned about thrush in the mouth Has been using the mouth rinse Brushing and flossing twice a day She got a OTC vaginal supportives to help with PH Did get some OTC antifungal med Concerned about coronavirus Family members have been infected Family members who live out of state have had it Daughter told her last night that she identified as a boy This has required some processing has gone back to work--which does cause some concern Did see her grand baby (from a distance) That was a happy things She looks tired But well A/P 1. I would like her to get started on a GI eval The scope did not get done, and may not in the current setting But I will make a referral for a GI review--I think it would be reasonable to start with a Tele visit 2. We talked about coronavirus testing, which would tell us if she has infection right now, but not about a prior infection Symptoms right now would be atypical for coronavirus infection At this point we do not have serology for coronavirus and do not know what the results would indicate 3. The chest sounds pretty atypical, if this continue to be a concern we would need to have a stresstest She was relieved to be reminded of the chest CT from last fall 4. She will need to see the dentist when able 5. Will stay off the antibiotics and see if concerns for yeast infection subside documented in this encounter Plan of Treatment Upcoming Encounters Date Type Specialty Care Team Description 04/14/2022 Office Visit Neurology Cameron Alves MD [facility] [place], [place] [address] (Wo rk) Scheduled Referrals Name Type Priority Associated Order Schedule Diagnoses Referral to Outpatient Routine Non-intractable Ordered: Gastroenterology Referral vomiting with 12/12/2019 nausea, unspecified vomiting type documented as of this encounter Goals Goal [...] as of this encounter Visit Diagnoses Diagnosis Non-intractable vomiting with nausea, un specified vomiting type documented in this encounter Care Teams Mortgage Loan Interviewer Relationship Specialty Start Date End Date Lolis Moss MD PCP - General General Internal Medicine 04/15/16 [address] [facility] [place] [address] documented as of this encounter
--- OUTSIDE RECORDS SUMMARY | 2022-03-18 11:30 | XMS_ITS | Encounter Summary ---
:1970 Author Organization [facility] [place] [address] Care Team Providers Name Role Phone Lolis Moss MD Primary Care Provider Reason for Visit Reason Comments Follow-up not sure if infection, vagin itis or uti coming on Encounter Details Date Type Department Care Team Description 11/27/2019 TH Visit Internal Medicine at [facility] (bacterial vaginosis); (TeleHealth) Karina Gimenez MD Chronic allergic rhinitis [address] [place], [place] C[place] [address] [facility] [phone] PRIMARY CARE [place], [place] [address] Social History Tobacco Use Types Packs/Day Years Used Date Former Smoker Cigarettes 0.5 15 Quit: 08/30/19 18 Smokeless Tobacco: Never Used Comments: Started smoking at 45 Alcohol Use Standard Drinks/Week Comments Not Currently 0 (1 standard drink = 0.6 oz pure alcoho l) Sex Assigned at Date Recorded Not on file documented as of this encounter Progress Notes Jane Schmidt CCMA - 11/27/2019 11:00 AM EDT Patient contacted at home Preferred phone: [phone] Patient confirms location for visit as: home Home address: [address] [place] [phone] If phone visit: patient verbally consents to this telephone visit and understands that this visit may be billed, similar to a clinic office visit. Medications were reconciled. Allergies were reviewed. Chief complaint was updated. Questionnaires administered and results: none attached Lolis Moss MD - 11/27/2019 11:00 AM EDT Telephone visit Patient is in [place], [place] I am in [place], [place] Discussed that this visit will be billed Concerned she may have an UTI or bacterial vaginosis Was having some cramping Low in the pelvis, both sides No fever Reminds her of uterine cramps, they have been on and off, not terrible And better over the weekend Bowels are working ok, moving bowels does not affect the cramping Then had some red flakes in the urine stream This has not happened again She did try putting a tampon in Did not have any blood on the tampon Did have some soreness with it Has had some white discharge, it is smelly--just a small amouth A little itchy No dysuria Having some frequency--but drinking more fluid Things have not gotten worse over the weekend, rather better Now feels this is unlikely at UTI Did have respiratory symptoms earlier this spring This has mostly resolved Fever is gone Feels some short of breath Nose has been plugged Has lots of animal hair Has been mostly inside, she has felt better inside Nose has been drippy and itchy She is taking deven, not sure how much it is working A little cough Feels that her mood is doing ok is working mostly from home She sounds stuffy on the phone But sounds bright A/P 1. Treat empirically for BV with oral Flagyl (discussed no alcohol) Less concern for UTI 2. Allergies--can try singulair 3. She can call GI and see if they want to do a telehealth visit documented in this encounter Plan of Treatment Upcoming Encounters Date Type Specialty Care Team Description 04/14/2022 Office Visit Neurology Cameron Alves MD [facility] er [address] [place], [place] [address] (Wo rk) documented as of this encounter Goals Goal Patient Goal Associated Recent Patient-Stated? Author Type Problems Progress DH Home Medication Patient No Kendrick ridley, Compliance and Facing Kan Restrepo, Understanding Action Plan [facility] ED Note: Formatting of this note might be d ifferent from the original. Patient's specific desired goal: to have fewer headaches and to use less adjunct / rescue medication Measured by: calendar, frequency of use of adjunct / rescue meds Time-frame to meet goal: 90-150 days documented as of this encounter Visit Diagnoses Diagnosis BV (bacterial vaginosis) Vaginitis and vulvovaginitis, unspecifie d Chronic allergic rhinitis Allergic rhinitis, cause unspecified documented in this encounter Care Teams Polytechnic Teacher Relationship Specialty Start Date End Date Lolis Moss MD PCP - General General Internal Medicine 04/15/[address] [facility] [address] [facility]AR[facility] [place] [address] documented as of this encounter
--- OUTSIDE RECORDS SUMMARY | 2022-03-18 11:30 | XMS_ITS | Encounter Summary ---
:1970 Author Organization [facility] [place] [address] Care Team Providers Name Role Phone Lolis Moss MD Primary Care Provider Encounter Details Date Type Department Care Team Description 12/29/2019 Laboratory Appointment Lab [address]L [facility] Ankle swelling, [facility] [place] [address] Social History Tobacco Use Types Packs/Day Years [...] Alves MD [facility] [address] [address] (Wo rk) documented [...] Procedure Name Priority Date/Time Associated Diagnosis Comme [facility] D-DIMER, Routine 12/29/2019 9:32 AM Ankle swelling, Result s for this QUANTITATIVE EDT unspecified procedure are i n laterality the results section. documented in this encounter Results D-Dimer, Quantitative (12/29/2019 9:32 AM EDT) P athologist Signature D-Dimer, Quant 223 0 - 500 [facility] FEU ng/ml [facility] Comment: The D-Dimer assay is used to aid in the diagnosis of deep vein thrombosis and pulmonary embolism. A normal D-Dimer res ult (less than 500 FEU ng/ml) has a negative predictive value of approximate ly 95% for the exclusion of acute PE and DVT when there is low to moderate pr etest probability. To use age adjusted cutoff: Age x 10 ng/ml. Specimen Anatomical Collection Method Collection Time Receive d Time (Source) Location / / Volume Laterality Blood specimen 12/29/2019 9:32 AM 020 9:38 (specimen) EDT AM EDT Resulting Agency Comment Spec In Lab Lolis Moss MD HEMATOLOGY ORDERABLES Performing Organization Address City/State/[place] [address] documented in this encounter Visit Diagnoses Diagnosis Ankle swelling, unspecified laterality documented in this encounter Care Teams Picker Box Operator Relationship Specialty Start Date End Date Lolis Moss MD PCP - General General Internal Medicine 04/15/16 [address] [facility] [address] [place] [address] documented as of this encounter
--- OUTSIDE RECORDS SUMMARY | 2022-03-18 11:30 | XMS_ITS | Encounter Summary ---
:1970 Author Organization [facility] [place] [address] Care Team Providers Name Role Phone Lolis Moss MD Primary Care Provider Encounter Details Date Type Department Care Team Description 01/03/2020 Telephone Psychiatry Bobbi Rojas MD [facility] [phone] PSYCHIATRY [phone] [place], [place] [address] (Wo rk) Social History Tobacco Use Types Packs/Day Years Used Date Former Smoker Cigarettes 0 15 Quit: 08/30/19 20 Smokeless Tobacco: Never Used Alcohol Use Standard Drinks/Week Comments Not Currently 0 (1 standard drink = 0.6 oz pure alcoho l) Sex Assigned at Date Recorded Not on file documented as of this encounter Miscellaneous Notes Telephone Encounter - Bobbi Rojas MD - 01/03/2020 3:17 PM EDT Called pt in response to [facility] messages concerning for koko with risky driving, inattention, and lack of sleep. Collected, linear, logical and goal oriented during call. Patient reports she feels somewhat better today after receiving call that credential is being put through, and that she only need produce a document of medical clearance from her neurologist to the board, they said they would fax it to me... can you imagine that? That's some Seinfeld stuff... who has a fax.... Reports continued concern RE GI issues and inability to eat. Reviewed recent notes and discussed normal mannometry/possibility of Barium swallow being expedited. Pt states she has not been able to keepdown anything aside from [place] breakfast. Has not been using MJx since told could cause further e sophageal damage. Discussed potential for associated CVS and resolution over time. Patient not experiencing much nausea, just vomiting when attempts to eat. Has not noticed if zyprexa has effect on this. Encouraged to attempt to eat tmrw morning following zyprexa dose to assess antiemetic quality and potentially to reduce any psychiatric contribution to inability to tolerate food. Patient discussed speeding enroute to dentist appt after being called and told she was late. Reportsgoing up to 30 mph over the speed limit. Spontaneously offered awareness of potential for harm to self and others. Denies feeling of being unsafe at home or any other risk taking behavior. Denies SI/HI. Denies feeling of preference for inpatient stabilization. Reports sleeping 3-5 hours overnight. Yesterday after returning from dentist took 2.5 mg zyprexa andslept for 7 hours. Overall feels that it has been helpful and that her mood regulation is improving. Agreeable to increase QHS dose zyprexa to 5 mg @ 10p (goes to bed at 10:30) and AM dose of zyprexa in mid morning between AM and midday dose of clonazepam. Using CBT tatyana at home. 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 With attn to hx TBI, discussed again how clonazepam not best snf option for control of mood swing, irritability and r/o koko. Discussed potential transition of clonazepam to depakote during nextappt. Per chart review, used 250-500 mg QHS for short time in 2013 in attempt to treat TBI associated migraine with little effect; unclear if had psychiatric effect, but appeared to be tolerated well. A: r/o hypomanic episode vs cPTSD and BPD exacerbation, no acute safety concerns P: check in with 5D RN as planned tomorrow to discuss increased dose of zyprexa (see above) RTC January 14 and consider cross taper clonazepam/depakote documented in this encounter Plan of Treatment Upcoming Encounters Date Type Specialty Care Team Description 04/14/2022 Office Visit Neurology Cameron Alves MD [facility] [place] [address] (Wo rk) documented as of this encounter Goals Goal Patient Goal Associated Recent Patient-Stated? Author Type Problems Progress DH Home Medication Patient No Kendrick ridley, Compliance and Facing Kan Restrepo, Understanding Action Plan [facility] Note: Formatting of this note might be d ifferent from the original. Patient's specific desired goal: to have fewer headaches and to use less adjunct / rescue medication Measured by: calendar, frequency of use of adjunct / rescue meds Time-frame to meet goal: 90-150 days documented as of this encounter Visit Diagnoses Not on filedocumented in this encounter Care Teams Business Development Manager Relationship Specialty Start Date End Date Lolis Moss MD PCP - General General Internal Medicine 04/15/[address] [facility] [address] [place] [address] documented as of this encounter
--- OUTSIDE RECORDS SUMMARY | 2022-03-18 11:30 | XMS_ITS | Encounter Summary ---
:1970 Author Organization [facility] [place] [address] Care Team Providers Name Role Phone Lolis Moss MD Primary Care Provider Reason for Visit Auth/Cert Specialty Diagnoses / Procedures Referred By Contact Refer red To Contact Diagnoses Dysphagia Dysphagia, unspecified type Procedures PRO UPPER GI ENDOSCOPY, DIAGNOSTIC EGD, UPPER GI ENDOSCOPY Referral ID Status Reason Start Date Expiration Date Visits Requ ested Visits Authorized [id number] 1 1 Encounter Details Date Type Department Care Team Description 12/27/2019 Surgery Gastroenterology at [facility] Inocencia Kasper, EGD WITH BIOPSY ([facility] Madiha otoole MD 2.49) [place] [address] [facility] [phone] [place], [place] [address] Social History Tobacco Use Types [...] Sign Reading Time Taken Comments Blood Pressure 138/86 12/27/2019 10:45 AM EDT Pulse 89 12/27/2019 10:45 AM EDT Temperature 36.5 ??C (97.7 ??F) 12/27/2019 9:14 AM EDT Respiratory Rate 16 12/27/2019 10:45 AM EDT Oxygen Saturation 97% 12/27/2019 10:45 AM EDT Inhaled Oxygen Concentration - - Weight 52.2 kg (115 lb) 12/27/2019 9:14 AM EDT Height 159.4 cm (5' 2.75) 12/27/2019 9:14 AM EDT Body Mass Index 20.53 12/27/2019 9:14 AM EDT documented in this encounter Discharge Instructions Discharge InstructionsToNatalee mccabe RN - 12/27/2019 11:54 AM EDT Upper GI Endoscopy: What to Expect at Home Your Recovery You will be able to go home after your doctor or nurse checks to make sure you are not having any problems. You may have to stay overnight if you had treatment during the test. You may have a sore throat for a day or two after the test. This care sheet gives you a general idea about what to expect after the test. How can you care for yourself at home? Activity Rest when you feel tired. ?? You can do your normal activities when it feels okay to do so. Diet ?? Follow your doctor's directions for eating. ?? Unless your doctor has told you not to, drink plenty of fluids. This helps to replace the fluidsthat were lost during the prep. ?? Do not drink alcohol. Medicines ?? Your doctor will tell you if and when you can restart your medicines. He or she will also give you instructions about taking any new medicines. ?? If you take blood thinners, such as warfarin (Coumadin), clopidogrel (Plavix), or aspirin, be sure to talk to your doctor. He or she will tell you if and when to start taking those medicines again.Make sure that you understand exactly what your doctor wants you to do. ?? If polyps were removed or a biopsy was done during the test, your doctor may tell you not to take aspirin or other anti-inflammatory medicines for a few days. These include ibuprofen (Advil, Motrin) and naproxen (Aleve). ?? If you have a sore throat the day after the procedure, use an btzr-zit-aowqwqc spray to numb yourthroat. Sucking on throat lozenges and gargling with warm salt water may also help relieve your symptoms. Other instructions ?? For your safety, do not drive or operate machinery until the medicine wears off and you can think clearly. Your doctor may tell you not to drive or operate machinery until the day after your test. ?? Do not sign legal documents or make major decisions until the medicine wears off and you can think clearly. The anesthesia can make it hard for you to fully understand what you are agreeing to. Additional Information for Sedation Patients For patients who received sedation: ?? You may have received medications before and/or during your procedure which effects your judgement and reaction time. ?? Do not drive, operate machinery, drink alcoholic beverages or make important decisions for 24 hours. ?? Be careful on stairs as you may be unsteady on your feet. ?? You may eat a regular diet as tolerated. ?? Do not smoke if you are alone. ?? IV site: Slight redness or tenderness is normal, you can use a warm compress if you would like. If tenderness and/or redness increase or if foul drainage occurs, please contact your Doctor. Please call [phone] before 8pm Mon-Fri with problems, questions or concerns. If you call after 8pm or on weekends, call the Hospital at [phone] and ask to speak to the Test Cell Technician retirement consultant and the hair machine operator will contact that person for you. When should you call for help? Call 163 anytime you think you may need emergency care. For example, call if: ?? You passed out (lost consciousness). ?? You pass maroon or bloody stools. ?? You have trouble breathing. Call your doctor now or seek immediate medical care if: ?? You have pain that does not get better after you take pain medicine. ?? You are sick to your stomach or cannot drink fluids. ?? You have new or worse belly pain. ?? You have blood in your stools. ?? You have a fever. ?? You cannot pass stools or gas. Watch closely for changes in your health, and be sure to contact your doctor if you have any problems. Where can you learn more? [facility] View your After Visit Summary and more online at [email or web address] If you would like to provide feedback about your hospital experience, please call the Office of Patient and Family Relations at . If you have received this After Visit Summary in error, please immediately return it in person to the department, or notify the [facility] Privacy Office by calling toll free at between the hours of 8AM and 5PM to arrange for our retrieval of the documents at no cost to you. Content Version: 12.2 ?? [id number] [employer]. Care instructions adapted under license by [facility]. If you have questions about a medical condition or this instruction, always ask your healthcare professional. [employer] disclaims any warranty or liability for your use of this information. documented in this encounter Medications at Time of Discharge Medication Sig Dispensed Refills Start Date End Date albuterol 90 INHALE 2 PUFFS EVERY 6 0 12/23/2019 mcg/actuation HFA HOURS NEEDED Aerosol Inhaler omeprazole/sodium Take 1 tablet by mouth 0 bicarbonate (ZEGERID 2 times daily. ORAL) MAGNESIUM ORAL Take 1 tablet by mouth 0 daily. UBIDECARENONE Take 1 tablet by mouth 0 (COENZYME Q10 ORAL) daily. multivitamin Take 1 tablet by mouth 0 (THERAGRAN) Tablet daily. riboflavin, vitamin Take 1 tablet by mouth 30 tablet 11/15 B2, 100 mg daily. TabletIndications: Headache(784.0) OLANZapine (ZyPREXA) Take 1 tablet by mouth [...] 0 01/31/2020 (Singulair) 10 mg nightly. Tablet ubrogepant (Ubrelvy) Take 100 mg by mouth 10 tablet 13 11/2201/01/2020 100 mg as needed. TabletIndications: Chronic migraine without aura, with intractable migraine, so stated, with status migrainosus traZODone (Desyrel) 50 Take 1 tablet by mouth 90 tablet 0 0 11/09/2019 01/15/2020 mg Tablet nightly. candesartan (Atacand) Take 1 tablet by mouth 90 tablet 0 01/01/2020 16 mg every evening. TabletIndications: Migraine with aura and without status migrainosus, not intractable ondansetron (Zofran) 8 Take 1 tablet by mouth 20 tablet 0 0 11/06/2019 01/01/2020 mg Tablet 2 times daily as needed for Nausea. estrogen, Take 1 tablet by mouth 90 [...] daily. Release(E.C.)Indicatio ns: Depression, unspecified depression type AIMOVIG AUTOINJECTOR INJECT THE CONTENTS OF 1 mL 5 01/04/2020 140 mg/mL ONE PEN (140MG) Auto-Injector SUBCUTANEOUSLY EVERY 30 DAYS. topiramate (TOPAMAX) Take 1 tablet by mouth 90 tablet 3 12/201801/22/2020 200 mg Tablet nightly. baclofen (LIORESAL) 20 Take 0.5 tablets by 270 tablet 3 06/10/201806/18/2020 mg TabletIndications: mouth 3 times daily as Fibromyalgia, needed. Psoriatic arthritis documented as of this encounter H&P Notes Eason, Nancy A, MD - 12/27/2019 10:03 AM EDT Gastroenterology and Hepatology Pre-Procedure History and Physical Exam Procedure: EGD: Indication: dysphagia, odynophagia, chest pain, nausea/early satiety, and weight loss in August. 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 Patient Active Problem List Diagnosis Code ??? [...] N93.9 ??? Abnormal finding on ultrasound R93.89 EXAM: HEENT: Airway examined, oropharynx clear Mallampati Score: II (soft palate, uvula, fauces visible) LUNGS: Clear to auscultation HEART: Regular rate and rhythm, normal S1, S2 ABDOMEN: Normal bowel sounds, soft, non tender, non distended, A/P Proceed with the planned endoscopic procedure. ASA 2 - Patient with mild systemic disease with no functional limitations Sedation Plan: moderate (conscious sedation) Risks and benefits of the procedure explained to the patient. Consent signed. documented in this encounter Plan of Treatment Upcoming Encounters Date Type Specialty Care Team Description 04/14/2022 Office Visit Neurology Cameron Alves MD [facility] [place] [phone] (Wo rk) documented as of this encounter Goals Goal Patient Goal Associated Recent Patient-Stated? Author Type Problems Progress DH Home Medication Patient No Conkli n, Compliance and Facing Kan P, Understanding Action Plan [facility] Note: Formatting of this note [...] Associated Diagnosis Comme nts SPECIMEN TO Routine 12/27/2019 11:00 AM Results for this PATHOLOGY EDT procedure are i n the results section. SPECIMEN TO Routine 12/27/2019 11:00 AM Results for this PATHOLOGY EDT procedure are i n the results section. SPECIMEN TO Routine 12/27/2019 11:00 AM Results for this PATHOLOGY EDT procedure are i n the results section. SURGICAL PATHOLOGY Routine 12/27/2019 10:45 AM Re sults for this REPORT EDT procedure are i n the results section. EGD WITH BIOPSY 12/27/2019 10:17 AM Dysphagia, (WRVU 2.49) EDT unspecified type UPPER GI ENDOSCOPY Routine 12/27/2019 10:07 AM Re sults for this EDT procedure are i n the results section. documented in this encounter Results Specimen to Pathology (12/27/2019 11:00 AM EDT) Specimen Anatomical Collection Method Collection Time Receive d Time (Source) Location / / Volume Laterality AP Specimen 12/27/2019 11:00 12/27/2019 AM EDT 11:00 AM EDT Narrative [facility] - 12/27/2019 11:00 AM EDT Specimen requisition ordered. ??Separate Pathology report to follow Inocencia Kasper MD PATHOLOGY/CYTOLOGY ORDERABLE S Performing Organization Address City/State/[place] [address] Specimen to Pathology (12/27/2019 11:00 AM EDT) Specimen Anatomical Collection Method Collection Time Receive d Time (Source) Location / / Volume Laterality AP Specimen 12/27/2019 11:00 12/27/2019 AM EDT 11:00 AM EDT Narrative [facility] - 12/27/2019 11:00 AM EDT Specimen requisition ordered. ??Separate Pathology report to follow Inocencia Kasper MD PATHOLOGY/CYTOLOGY ORDERABLE S Performing Organization Address City/[facility]/ZIP Code Phon e Number [address] Specimen to Pathology (12/27/2019 11:00 AM EDT) Specimen Anatomical Collection Method Collection Time Receive d Time (Source) Location / / Volume Laterality AP Specimen 12/27/2019 11:00 12/27/2019 AM EDT 11:00 AM EDT Narrative [facility]OR[facility] ORY - 12/27/2019 11:00 AM EDT Specimen requisition ordered. ??Separate Pathology report to follow Inocencia Kasper MD PATHOLOGY/CYTOLOGY ORDERABLE S Performing Organization Address City/[facility] Code Phon e Number [address] Surgical Pathology Report (12/27/2019 10:45 AM EDT) Component Value Ref Test Analysis Performed At [facility] gist Range Method Time Signature Surgical [id number] ? Location: 4T; EA10; A [facility] Report The signing pathologist has (i) examined the relevant preparation(s) for the [facility] specimen(s) and (ii) rendered or confirmed the diagnosis(es) . HOSPITAL LABORATORY . ?Surgic al Pathology DIAGNOSIS A - Duodenum, biopsy: Duodenal mucosa with foveola r metaplasia and Lisseth's gland hyperplasia consistent with peptic-type duodenitis. B - Gastric mucosa, biopsy: Gastric fundic and antral gl and mucosa with mild chronic nonspecific gastritis. No H. pylori-like microorganism is seen. C - Esophagus, biopsy: Esophageal squamous mucosa within normal limits. Electronically signed by: ??Digna Ramsey MD Verified: ??12/28/2019 ?Pathologist Performed at: ??-[facility] Dept. of Pathology, [place], [place] SPECIMEN(S) SUBMITTED A - duodenum, biopsy (Multiple) B - gastric r/o H.pylori, biopsy (Multiple) C - esophagus r/o EoE, biopsy (Multiple) CLINICAL INFORMATION 49-year-old female with dysp hagia, early satiety history duodenal stricture with dilation SPECIMEN PROCESSING A - Labeled/Fixative: Duodenum, formalin. Quantity/Size: Multiple, 0.2-0.6 cm. Tissue Description: Soft, dangelo tissues. Sections/Processing: Submitted en toto ??in 2 cassettes labeled A1-A2. B - Labeled/Fixative: Gastric rule out H. pylori, formalin. Quantity/Size: Five, 0.2-0.5 cm. Tissue Description: Soft, dangelo tissues. Sections/Processing: Submitted en toto ??in 2 cassettes labeled B1-B2. C - Labeled/Fixative: Esophagus R/O EoE, formalin. Quantity/Size: Multiple, 0.1-0.3 cm. Tissue Description: Soft, white tissues. Sections/Processing: Submitted en toto ??in 2 cassettes labeled C1-C2. ??rachell Specimen (Source) Anatomical Collection Method Collection Time Re ceived Time Location / / Volume Laterality 12/27/2019 10:45 AM EDT Inocencia Kasper MD PATHOLOGY/CYTOLOGY ORDERABLE S Performing Organization Address City/State/[place] [address] UPPER GI ENDOSCOPY (12/27/2019 10:07 AM EDT) Component Value Ref Test Analysis Performed At [facility] Range Method Time Signature UPPER GI [facility] ENDOSCOPY Endoscopy Procedure Date: 12/27/2019 10:07 AM ? Patient Name: Lisseth Boone ? Date of : 1970 ? Age: 49 ? Order #: [id number] ? Instrument Name: [id number] ? Procedure: ? Upper GI endoscopy Indications: ? Dysphagia, Odynophagia Providers: ? Inocencia Kasper MD, Nancy Veronica ts, ? , Carlos Alberto Haley RN, Telma Siddiqui, ? Mender Kn[employer] Goods Referring : ?Lolis Moss Medicines: ? Midazolam 6 mg IV, Fentanyl 250 ? micrograms IV, Diphenhydramin e 50 mg ? IV, Benzocaine spray Complications: ? No immediate complications. Procedure: ? Pre-Anesthesia Assessment: ? - Prior to the procedure, a H istory ? and Physical was performed, a nd ? patient medications and aller gies ? were reviewed. The patient's ? tolerance of previous anesthe kt was ? also reviewed. The risks and benefits ? of the procedure and the homer tion ? options and risks were discus sed with ? the patient. All questions we re ? answered, and informed consen t was ? obtained. Prior Anticoagulant s: The ? patient has taken no previous ? anticoagulant or antiplatelet agents ? except for NSAID medication. ASA ? Grade Assessment: II - A austin ent with ? mild systemic disease. After ? reviewing the risks and benef its, the ? patient was deemed in satisfa ctory ? condition to undergo the proc edure. ? The procedure, indications, b enefits, ? risks and alternatives were e xplained ? to the patient. Specifically ? discussed were potential ? complications including, but not ? limited to, bleeding, perfora tion, ? infection, missing a cancer, and ? adverse medication reactions. The ? Endoscope was introduced thro [facility] the ? mouth, and advanced to the ird part ? of duodenum. The patient tole rated ? the procedure well. The upper GI ? endoscopy was accomplished wi out ? difficulty. The patient nicol ated the ? procedure well. ? Findings: ? The examined esophagus was normal. Biopsies were ? taken with a cold forceps for histology from the ? distal 2/3rd. Estimated blood loss: none. ? Diffuse mildly erythematous mucosa was found in the ? gastric body and in the gastric antrum. Biopsies were ? taken with a cold forceps for Helicobacter pylori ? testing. Estimated blood loss: none. ? An acquired benign-appearing, intrinsic mild stenosis ? was found in the first portion of the duodenum and ? was traversed. Biopsies were taken with a cold ? forceps for histology. ? Moderate Sedation: ? I was present during the intraservice time as ? documented by the sedation RN. Impression: ?- Normal esophagus. Biopsied. ? - Erythematous mucosa in the gastric ? body and antrum. Biopsied. ? - Acquired duodenal stenosis. Recommendation: ?- Await pathology results. ? - No aspirin, ibuprofen, napr oxen, or ? other non-steroidal anti-infl ammatory ? drugs. ? - Return to referring physici an. ? Procedure Code(s): ?? --- Professional --- ? 58620, Esophagogastroduodenos copy, ? flexible, transoral; with bio psy, ? single or multiple CPT copyright 2019 [employer]. All rights reserved. The codes documented in this report are preliminary and upon clerk rating review may be revised to meet current compliance requirements. Attending Participation: ? I was present and participated during the entire ? procedure, including non-candelaria portions. ? Inocencia Kasper MD Inocencia Kasper MD 12/27/2019 11:13:15 AM This report has been signed electronically. Number of Addenda: 0 Note Initiated On: 12/27/2019 10:07 AM Specimen (Source) Anatomical Collection Method Collection Time Re ceived Time Location / / Volume Laterality 12/27/2019 10:07 AM EDT Lolis Moss MD GENERAL SURGICAL ORDERABLES Performing Organization Address City/State/ZIP Code Phon e Number [employer] documented in this encounter Visit Diagnoses Not on filedocumented in this encounter Administered Medications Inactive Administered Medications - up to 3 most recent administrations Medication Order MAR Action Action Date Dose Rate Site benzocaine (Hurricane One) Given 12/27/2019 10:32 AM EDT 1 spray Mucosal spray 20% (restricted to medhat-procedural use) ONCE PRN, Starting on Wed12/27/19 at 1032, Until Wed12/27/19 at 1408, Intra-Operative (Intra-Procedure) diphenhydrAMINE (BENADRYL) injection Given 12/27/2019 10:23 AM EDT 25 mg ONCE PRN, Starting on Wed12/27/19 at 1023, Until Wed12/27/19 at 1408, Intra-Operative (Intra-Procedure), Routine Given 12/27/2019 10:20 AM EDT 25 mg fentaNYL 50 mcg/mL multi-dose injection Given 12/27/2019 10:50 AM EDT 50 mcg ONCE PRN, Starting on Wed12/27/19 at 1021, Until Wed12/27/19 at 1408, Intra-Operative (Intra-Procedure), Routine Given 12/27/2019 10:33 AM EDT 50 mcg Given 12/27/2019 10:29 AM EDT 50 mcg lactated ringers infusion New Bag 12/27/2019 9:30 AM EDT 100 mL/hr 100 mL/hr 100 mL/hr, Intravenous, CONTINUOUS, Starting on Wed12/27/19 at 0930, Until Wed12/27/19 at 1408, Endoscopy (Day of Procedure) midazolam (PF) (VERSED) multi-dose injec tion Given 12/27/2019 10:38 AM EDT 1 mg ONCE PRN, Starting on Wed12/27/19 at 1021, Until Wed12/27/19 at 1408, Intra-Operative (Intra-Procedure), Routine Given 12/27/2019 10:34 AM EDT 1 mg Given 12/27/2019 10:29 AM EDT 1 mg documented in this encounter Active and Recently Administered Medications Times are shown in EDT. Continuous Medication Order 12/25/2019 12/26/2019 12/27/2019 lactated ringers infusion 0930 ( New Bag - Provider: Zabrina Min RN) 100 mL/hr, at 100 mL/hr, Intravenous, CO NTINUOUS, Starting Wed12/27/19 at 0930, Until Wed12/27/19 at 1408, Endo (Day of Procedure) PRN Medication Order 12/25/2019 12/26/2019 12/27/2019 benzocaine (Hurricane One) Mucosal spray 20% (restricted to medhat-procedural use) (CANCELED) 1032 (Given - Provid er: Carlos Alberto Haley RN) ONCE PRN, Starting Wed12/27/19 at 1032, Until Wed12/27/19 at 1408, Intra- Operative (Intra-Procedure) diphenhydrAMINE (BENADRYL) injection (CANCELED) 1020 (Given - Provider: Carlos Alberto Haley RN)1023 (Given - Provider: Carlos Alberto Haley RN) ONCE PRN, Starting Wed12/27/19 at 1023, Until Wed12/27/19 at 1408, Intra- Operative (Intra-Procedure), Routine fentaNYL 50 mcg/mL multi-dose injection (CANCELED) 1021 (Given - Provider: Carlos Alberto Haley RN)1025 (Given - Provider: Carlos Alberto Haley RN)1029 (Given - Provider: Carlos Alberto Haley RN)1033 (Given - Provider: Carlos Alberto Haley RN)1050 (Given - Provider: Carlos Alberto Haley RN) ONCE PRN, Starting Wed12/27/19 at 1021, Until Wed12/27/19 at 1408, Intra- Operative (Intra-Procedure), Routine midazolam (PF) (VERSED) multi-dose injection (CANCELED) 1021 (Given - Provider: Carlos Alberto Haley RN)1025 (Given - Provider: Carlos Alberto Haley RN)1029 (Given - Provider: Carlos Alberto Haley RN)1034 (Given - Provider: Carlos Alberto Haley RN)1038 (Given - Provider: Carlos Alberto Haley RN) ONCE PRN, Starting Wed12/27/19 at 1021, Until Wed12/27/19 at 1408, Intra- Operative (Intra-Procedure), Routine documented in this encounter Care Teams Phlebotomy Services Representative Relationship Specialty Start Date End Date Lolis Moss MD PCP - General General Internal Medicine 04/15/16 0 [place] [address] documented as of this encounter
--- OUTSIDE RECORDS SUMMARY | 2022-03-18 11:30 | XMS_ITS | Encounter Summary ---
:1970 [place] [address] Care Team Providers Name Role Phone Lolis Moss MD Primary Care Provider Reason for Visit Reason Onset Date Comments Medication Refill 01/03/2020 Encounter Details Date Type Department Care Team Description 01/03/2020 Telephone Neurology at [facility] Cameron Alves MD Medication Refill [address] [place] [address] [place] [address] [phone] (Wo rk) Social History Tobacco Use Types Packs/Day Years Used Date Former Smoker Cigarettes 0 15 Quit: 08/30/19 18 Smokeless Tobacco: Never Used Alcohol Use Standard Drinks/Week Comments Not Currently 0 (1 standard drink = 0.6 oz pure alcoho l) Sex Assigned at Date Recorded Not on file documented as of this encounter Miscellaneous Notes Telephone Encounter - Haydee Rodriguez Chayo - 01/03/2020 2:39 PM EDT Call Center / Disc Pad Grinding Machine Feeder Message - Medication Issue (Not to be used for refill request , medication prior auth request, or symptom issue) Provider patient sees in Clinic: Cameron Alves Caller and relationship (if other than patient-full name): Pt Call Back Number: [phone] Ok to leave a message: yes Reason for call: Medication Issue (if medication issue is a symptom do not use this phrase) Message/information for the nurse: Name of Medication: topiramate (Topamax) 25 mg Tablet Issue with the medication: Pt called stating she has switched pharmacies and would like to have thisscript sent to the [facility] [place] [facility] instead. Please call pt when all set. Disposition of Call: ?? Routine Message sent to the Nurse documented in this encounter Plan of Treatment Upcoming Encounters Date Type Specialty Care Team Description 04/14/2022 Office Visit Neurology Cameron Alves MD [facility] [address] [place] [address] (Wo rk) documented as of this encounter Goals Goal Patient Goal Associated Recent Patient-Stated? Author Type Problems Progress DH Home Medication Patient No Kendrick n, Compliance and Facing Kan Restrepo, Understanding Action Plan [facility] Note: Formatting of this note might be d ifferent from the original. Patient's specific desired goal: to have fewer headaches and to use less adjunct / rescue medication Measured by: calendar, frequency of use of adjunct / rescue meds Time-frame to meet goal: 90-150 days documented as of this encounter Visit Diagnoses Not on filedocumented in this encounter Care Teams Burlap Roll Coverer Relationship Specialty Start Date End Date Lolis Moss MD PCP - General General Internal Medicine 04/15/16 [address] [facility] [address] [facility] [place] [address] documented as of this encounter
--- OUTSIDE RECORDS SUMMARY | 2022-03-18 11:30 | XMS_ITS | Encounter Summary ---
:1970 Author Organization [facility] [place] [address] Care Team Providers Name Role Phone Lolis Moss MD Primary Care Provider Encounter Details Date Type Department Care Team Description 01/01/2020 Telephone Gastroenterology at [facility] [place] [address] Social History Tobacco Use Types Packs/Day Years Used Date Former Smoker Cigarettes 0 15 Quit: 08/30/19 18 Smokeless Tobacco: Never Used Alcohol Use Standard Drinks/Week Comments Not Currently 0 (1 standard drink = 0.6 oz pure alcoho l) Sex Assigned at Date Recorded Not on file documented as of this encounter Miscellaneous Notes Telephone Encounter - Ruth Mcclain - 01/01/2020 8:36 AM EDT Pt called in asking if Haydee Santillan could send a request for a HREM to [facility], as they are doing them right now. She said she is having a hard time and still can't eat other than liquids, has been dizzy etc so she is wondering if that test could be ordered as soon as possible. documented in this encounter Plan of Treatment Upcoming Encounters Date Type Specialty Care Team Description 04/14/2022 Office Visit Neurology Cameron Alves MD [facility] [address] [place] [address] (Wo rk) documented as of this [...] on filedocumented in this encounter Care Teams Orchid Hand Relationship Specialty Start Date End Date Lolis Moss MD PCP - General General Internal Medicine 04/15/16 0 [facility] [address] [place] [address] documented as of this encounter
--- OUTSIDE RECORDS SUMMARY | 2022-03-18 11:30 | XMS_ITS | Encounter Summary ---
:1970 Author Organization [facility] [place] [address] Care Team Providers Name Role Phone Lolis Moss MD Primary Care Provider Reason for Visit Reason Onset Date Comments Medication Problem 12/13/2019 Encounter Details Date Type Department Care Team Description 12/13/2019 Telephone Internal Medicine at [facility] [address] [place] [address] Social History Tobacco Use Types Packs/Day Years Used Date Former Smoker Cigarettes 0.5 15 Quit: 08/30/19 18 Smokeless Tobacco: Never Used Comments: Started smoking at 45 Alcohol Use Standard Drinks/Week Comments Not Currently 0 (1 standard drink = 0.6 oz pure alcoho l) Sex Assigned at Date Recorded Not on file documented as of this encounter Miscellaneous Notes Telephone Encounter - Loils Moss MD - 12/13/2019 4:14 PM EDT I spoke with them, that is fine Telephone Encounter - Katharina Yang - 12/13/2019 4:01 PM EDT Pharmacy or caller: Carole Medication: peridex Message: Pharmacy is calling to see if it's ok that they supply 473 ml bottle? That is what they have available, please call to advise. Did you contact your pharmacy?: x documented in this encounter Plan of Treatment Upcoming Encounters Date Type Specialty Care Team Description 04/14/2022 Office Visit Neurology Cameron Alves MD [facility] [place] [address] (Wo rk) documented as of [...] on filedocumented in this encounter Care Teams Geospatial Technician Relationship Specialty Start Date End Date Lolis Moss MD PCP - General General Internal Medicine 04/15/16 0 [facility] [address]AR[address] [place] [address] documented as of this encounter
--- OUTSIDE RECORDS SUMMARY | 2022-03-18 11:30 | XMS_ITS | Encounter Summary ---
:1970 Author Organization [facility] [place] [address] Care Team Providers Name Role Phone Lolis Moss MD Primary Care Provider Encounter Details Date Type Department Care Team Description 12/26/2019 TH Visit Internal Medicine Lolis Moss Chest pain, unspecified type; (TeleHealth) at [facility] Kolton Gimenez MD Gastroesophageal reflux disease without esophagitis [address] [place], [place] [address] [facility] [phone] [place] [address] Social History Tobacco Use Types Packs/Day Years Used Date Former Smoker Cigarettes 0.25 15 Quit: 08/30/19 18 Smokeless Tobacco: Never Used Comments: 12/18/2019 started chantex Alcohol Use Standard Drinks/Week Comments Not Currently 0 (1 standard drink = 0.6 oz pure alcoho l) Sex Assigned at Date Recorded Not on file documented as of this encounter Progress Notes Lolis Moss MD - 12/26/2019 11:20 AM EDT telehealth visit COVID 19 pandemic She is in [place], [place] I am on [place], [place] Discussed the visit will be billed Her COVID 19 test was negative Slept some last night zyprexa was prescribed, she has not started it yet She did find her blood pressure cuff Had a sharp pain in the left side of check Sat down and check BP 130/89, pulse 90 A few minutes later 128/88 p 86 After the stairs 134/88 p 89 Has been having trouble eating Having more trouble swallowing, with the pills--they are slow to go down Hurts after she swallows --as she is swallowing Concerned she can only take liquids Had some diarrhea this am Was advised for boost or carnation instant breakfast But does have trouble tolerating milk We talked about oswaldo tea She describes reguataton the omeprazole twice a day She describes being thirsty, drinking lots of water Making good urine She is still taking the chantix Tobacco--none since 12/23 THC--was smoking before she ate, one puff Mentions, does not talk as much about the chest pain today Looks more rested today Walks comfortably around the house No cough as we talk More with drawn Does brighten as we talk A/P 1. She will stop the Chanix, --I am concerned this is upsetting the stomach 2. Waiting on EGD--stay on omeprzole 3. Stress test on Wednesday 4. Start the zyprexa Plan to follow up on documented in this encounter Plan of Treatment Upcoming Encounters Date Type Specialty Care Team Description 04/14/2022 Office Visit Neurology Cameron Alves MD [facility] [address] [place], [place] [address] (Wo rk) documented as of [...] as of this encounter Visit Diagnoses Diagnosis Chest pain, unspecified type Gastroesophageal reflux disease without esophagitis Esophageal reflux documented in this encounter Care Teams Nonprofit Director Relationship Specialty Start Date End Date Lolis Moss MD PCP - General General Internal Medicine 04/15/[address] [facility] [address] [place] [place] [address] documented as of this encounter
--- OUTSIDE RECORDS SUMMARY | 2022-03-18 11:30 | XMS_ITS | Encounter Summary ---
:1970 Author Organization [facility] [place] [address] Care Team Providers Name Role Phone Lolis Moss MD Primary Care Provider Reason for Referral Diagnostic Test (Routine) - Closed Specialty Diagnoses / Procedures Referred By Contact Refer red To Contact Diagnoses Chest pain, unspecified type Kesha Perera MD [facility] Non-Inv Card Lab Procedures Echocardiogram Stress (Treadmill) [facility] [place] [phone] [place] [address] Referral ID Status Reason Start Date Expiration Date Visits V isits Requested Authorized [id number] Closed Specialty 12/22/2019 12/21/2020 1 1 Service Requested Reason for Visit Diagnostic Test (Routine) - Closed Specialty Diagnoses / Procedures Referred By Contact Refer red To Contact Diagnoses Chest pain, unspecified type Kesha Perera MD [facility] Non-Inv Card Lab Procedures Echocardiogram Stress (Treadmill) [facility] [place] [address] [place] [address] Referral ID Status Reason Start Date Expiration Date Visits V isits Requested Authorized [id number] Closed Specialty 12/22/2019 12/21/2020 1 1 Service Requested Encounter Details Date Type Department Care Team Description 12/29/2019 Hospital Encounter Non-Invasive Kesha Perera Ches pain, Cardiology Lab Inocencia Zapata MD unspecified type [facility] PRIMARY CARE [place], [place] [phone] Social History Tobacco Use Types Packs/Day Years [...] Take 0.5 tablets by 270 tablet 3 10/201806/18/2020 mg TabletIndications: mouth 3 times daily as Fibromyalgia, needed. Psoriatic arthritis documented as of this encounter Plan of Treatment Upcoming Encounters Date Type Specialty Care Team Description 04/14/2022 Office Visit Neurology Cameron Alves MD [facility] er [address] [place], [place] [address] (Wo rk) documented as of this [...] Procedure Name Priority Date/Time Associated Comments Diagnosis STRESS ECHOCARDIOGRAM W Routine 12/29/2019 9:11 Chest pain, R esults for this CONTRAST LMTD SPEC AM EDT unspecified type proce dure are in DOPP,COLOR DOPP the results section. documented in this encounter Results STRESS ECHOCARDIOGRAM W CONTRAST LMTD SPEC DOPP,COLOR DOPP (12/29/2019 9:11 AM EDT) athologist Signature EF 65 [facility] Specimen (Source) Anatomical Location Collection Method / Collectio n Time Received Time / Laterality Volume 12/29/2019 Narrative [facility] - 12/29/2019 10:03 AM ED T Procedure: ?Stress Echocardiogram Patient: ?IMANR LISSETH L ?(Age): 1970(49y) Med Rec#: ? [id number] ?Sex: ?F ? Site Loc: ? [facility] ?Ht / Wt: ??160.02(cm)/52.1 Pt. Loc: ?Echo Lab ?BSA: ?1.53 Study Date: ?? 12/29/2019 ?Pt. Type: Tape: ? Referring: Kesha Perera Referring: Lolis Moss Reading: Niels Hairston ([id number]) Schedule Announcer: Natalee Lyon Community Relations Coordinator: Milind Kang Diagnosis: *Chest pain, unspecified (R07.9) [...] shortness of breath. ?The patient felt light-headed. Delilah anny reported vague lightheadedness/dizziness starting in ea rly [...] Vmax ?0.72 ? m/sec ? MV deceleration [id number] ?msec ? MV A-wave Vmax ?0.66 ? [...] Normal ? Mid-Inferoseptal ?Normal ? Normal ? [place]-Septal ? Normal ? Normal ? [place]-Anterior ? Normal ? Normal ? [place]-Lateral ?Normal ? Normal ? [place]-Inferior ? Normal ? Normal ? [place]-Tip ?Normal ? Normal ? This report has been electronically sign ed by: _ Niels Hairston MD ? 12/29/2019 1 0:03:26 Images reviewed and interpretation verif ied [facility] Cardiac Ultrasound Laboratory Procedure Note Niels Hairston MD - 12/29/2019Format ting of this note might be different from the original. Procedure: Stress Echocardiogram Patient: MARGO AMARO(Age): 02/1970(49y) Med Rec#: [id number] Sex: F Site Loc: [facility] Ht / Wt: 160.02(cm)/52.1 Pt. Loc: Echo Lab BSA: 1.53 Study Date: 12/29/2019 Pt. Type: Tape: Referring: Kesha Perera Referring: Lolis Moss Reading: Niels Hairston ([id number]) Schedule Announcer: Natalee Lyon Community Relations Coordinator: Milind Kang Diagnosis: *Chest pain, unspecified (R07.9) [...] MV E-wave Vmax 0.72 m/sec MV deceleration [id number] msec MV A-wave Vmax 0.66 m/sec MV [...] Normal Mid-Inferior Normal Normal Mid-Inferoseptal Normal Normal [place]-Septal Normal Normal [place]-Anterior Normal Normal [place]-Lateral Normal Normal [place]-Inferior Normal Normal [place]-Tip Normal Normal This report has been electronically sign ed by: _ Niels Hairston MD 12/29/2019 10:03:2 6 Images reviewed and interpretation verif ied [facility] Cardiac Ultrasound Laboratory Kesha Perera MD ECHO ORDERABLES Performing Organization Address City/State/ZIP Code Phon e Number [facility] documented in this encounter Visit Diagnoses Diagnosis Chest pain, unspecified type documented in this encounter Administered Medications Inactive Administered Medications - up to 3 most recent administrations Medication Order MAR Action Action Date Dose Rate Site perflutren lipid microspheres Given 12/29/2019 9:12 AM EDT 1.5 m Ls (DEFINITY) injection 1.5 mL 1.5 mL, Intravenous, ONCE PRN, 1 dose, Starting on Wed12/29/19 at 0911, Until Wed12/29/19 at 0912, prn, Routine documented in this encounter Care Teams Dietary Aid Relationship Specialty Start Date End Date Lolis Moss MD PCP - General General Internal Medicine 04/15/1602/12/ [address] [facility] [address] [place] [place] [address] documented as of this encounter
--- OUTSIDE RECORDS SUMMARY | 2022-03-18 11:30 | XMS_ITS | Encounter Summary ---
:1970 Author Organization [facility] [place] [address] Care Team Providers Name Role Phone Lolis Moss MD Primary Care Provider Encounter Details Date Type Department Care Team Description 12/25/2019 TH Visit Internal Medicine at Lolis Moss Che pain, unspecified type (Primary Dx); (TeleHealth) Karina Gimenez MD Ankle swelling, unspecified laterality [address] [place], [place] [address] [facility] [address] [phone] PR[place], [place] [address] Social History Tobacco Use Types Packs/Day Years Used Date Former Smoker Cigarettes 0.25 15 Quit: 08/30/19 18 Smokeless Tobacco: Never Used Comments: 12/18/2019 started chantex Alcohol Use Standard Drinks/Week Comments Not Currently 0 (1 standard drink = 0.6 oz pure alcoho l) Sex Assigned at Date Recorded Not on file documented as of this encounter Progress Notes Lolis Moss MD - 12/25/2019 9:00 AM EDT Telehealth visit COVID 19 pandemic She is in [place], [place] I am in [place], [place] Discussed this visit will be billed She was seen at local ER over the weekend Had a normal CXR COVID 19 test is pending, Talks about shooting pain in her legs for over a year When waking up with night sweats for the last few years The heart pounding Has been using husbands inhaler, This am was difficult to use the albuterol in haler, it was hard to inhale with it When she did use it, it felt like something was opening up in her legs--a weird strange feeling She has a difficult time describing the feeling The sharp pains in her legs--she had thought they were from not being active enough Has them in the lower legs and ankles Gets them every few days, on and off throughout the day She worries the leg pains are a sign of heart disease Still having the chest pain Last night was sharp, and went to left shoulder Lasted less than a minute Yesterday, could not get up and move from the couch to the kitchen without breathing heavy The left chest hurt This am going to the bathroom caused chest pain and breathing heavy She had to sit down She worries about the chest pain And her heart And her family history She worries about palpitations Heart beats, it will skip a beat or two, not more than that Can be any time Does have the stress test scheduled for Wednesday Wonders if the best test And if she should do it? She has felt like a fever And concerned that her thermometer is broken PE She looks tired She does walk across the room comfortably, but then felt her heart pounding, had her call out the beats,it was regular, and then count it (after another short walk) it was 80bpm Shows me her ankles--no pitting edema Symmetric, a very little swelling Brightens as we talk A/P 1. Agree that a stress echo will give us good information And if symptoms are severe, that would require an ER visit Her palpitations sound more like ectopy, but the stress test will tell us about response to exercise, etc 2. She worries about blood clots--discussed that she does not have signs or symptoms to suggest highrisk Her symptoms would be atypical for DVT or PVD We talked about risks involved in any medical testing. She would like to do a d dimer, discussed false positives etc 3. Interested to hear about her COVID 19 test documented in this encounter Plan of Treatment Upcoming Encounters Date Type Specialty Care Team Description 04/14/2022 Office Visit Neurology Cameron Alves MD [facility] [place] [address] (Wo rk) documented as of this encounter Goals Goal Patient Goal Associated Recent Patient-Stated? Author Type Problems Progress DH Home Medication Patient No Kendrick n, Compliance and Facing Kan P, Understanding Action Plan [facility] Note: Formatting of this note might be d ifferent from the original. Patient's specific desired goal: to have fewer headaches and to use less adjunct / rescue medication Measured by: calendar, frequency of use of adjunct / rescue meds Time-frame to meet goal: 90-150 days documented as of this encounter Results D-Dimer, Quantitative (12/29/2019 9:32 AM EDT) athologist Signature D-Dimer, Quant 223 0 - 500 [facility] FEU ng/ml [facility] Comment: The D-Dimer assay is used [...] Organization Address City/State/[place] [address] documented in this encounter Visit Diagnoses Diagnosis Chest pain, unspecified type - Primary Ankle swelling, unspecified laterality documented in this encounter Care Teams Technical System Analyst Relationship Specialty Start Date End Date Lolis Moss MD PCP - General General Internal Medicine 04/15/16 0 [facility] [address] KAR[address] [place] [address] documented as of this encounter
--- OUTSIDE RECORDS SUMMARY | 2022-03-18 11:30 | XMS_ITS | Encounter Summary ---
:1970 Author Organization [facility] [place] [address] Care Team Providers Name Role Phone Lolis Moss MD Primary Care Provider Encounter Details Date Type Department Care Team Description 12/26/2019 Telephone Gastroenterology at [facility] [place] [phone] Social History Tobacco Use Types Packs/Day Years Used Date Former Smoker Cigarettes 0.25 15 Quit: 08/30/19 18 Smokeless Tobacco: Never Used Comments: 12/18/2019 started chantex Alcohol Use Standard Drinks/Week Comments Not Currently 0 (1 standard drink = 0.6 oz pure alcoho l) Sex Assigned at Date Recorded Not on file documented as of this encounter Miscellaneous Notes Telephone Encounter - Porfirio Doll RN - 12/26/2019 9:36 AM EDT Lisseth calls again this morning to let me know she is having difficulty swallowing. She did tried broth last night and says it hurt on both sides of her chest. Still feels her medications are getting stuck but they do eventually pass. Also says it hurts to breath. She says she was just seen in her local ED for this and chest xray was clear and showed no pneumonia. She was informed last night that her covid 19 test was negative. I let her know that we are attempting to expedite her EGD her but if she is truly unable to swallow anything she should again be evaluated at her local emergency room. documented in this encounter Plan of Treatment Upcoming Encounters Date Type Specialty Care Team Description 04/14/2022 Office Visit Neurology Cameron Alves MD [facility] [place], [place] [address] (Wo rk) documented as of this encounter Goals Goal Patient Goal Associated Recent Patient-Stated? Author Type Problems Progress DH Home Medication Patient No Kendrick ridley, Compliance and Facing Kan Restrepo, Understanding Action Plan [facility] Note: Formatting of this note might be d ifferent from the original. Patient's specific desired goal: to have fewer headaches and to use less adjunct / rescue medication Measured by: calendar, frequency of use of adjunct / rescue meds Time-frame to meet goal: 90-150 days documented as of this encounter Visit Diagnoses Not on filedocumented in this encounter Care Teams Vice President Education Relationship Specialty Start Date End Date Lolis Moss MD PCP - General General Internal Medicine 04/15/16 [address] [facility] [address] KARINA [place] [address] documented as of this encounter
--- OUTSIDE RECORDS SUMMARY | 2022-03-18 11:30 | XMS_ITS | Encounter Summary ---
:1970 Author Organization [facility] [place] [address] Care Team Providers Name Role Phone Lolis Moss MD Primary Care Provider Reason for Visit Reason Comments Chest Pain dull chest pain x1 month Encounter Details Date Type Department Care Team Description 12/20/2019 TH Visit Internal Medicine Lolis Moss Muscul oskeletal chest pain; (TeleHealth) at [facility] MD Pernell Migraine with aura and without status mi grainosus, not intractable; [address] [facility] Dental abscess [place], [place] [address] [facility] [phone] [place] [address] Social History Tobacco Use Types Packs/Day Years Used Date Current Every Day Smoker Cigarettes 0.25 15 [place] t: 08/30/2017 Smokeless Tobacco: Never Used Comments: Started smoking at 45 Alcohol Use Standard Drinks/Week Comments Not Currently 0 (1 standard drink = 0.6 oz pure alcoho l) Sex Assigned at Date Recorded Not on file documented as of this encounter Progress Notes Pari Cook, [facility] - 12/20/2019 8:40 AM EDT Patient contacted at [phone] Preferred phone: [phone] Patient confirms location for visit as: Home address: [address] [place] [phone] If phone visit: patient verbally consents to [...] Questionnaire [x] NONE Lolis Moss MD - 12/20/2019 8:40 AM EDT Telehealth visit COVID 19 pandemic She is in [place], [place] I am in [place], [place] Discussed visit will be bi billed Follow up chest pain When breathing in she notices it in the center of the chest Then a dull ache on the right side of the chest She has felt it on the left side of the chest Earlier was in the upper part of the chest She feels this periodically With exertion--not clearly with just moving the chest wall If runs up the stairs fast after being sedentary Will feel it less than a minute Does not feel at other times She does feel short of breath with it No shortness of breath at rest Some with exertion, she feels is what would be expected Not having fever when she checks it Some night sweats--does not wake or check temp She is taking tylenol or motrin for her mouth Does cough at night She has on going pain in the right axilla And notes the mammogram Mouth--still hurting Gums are some better She has checked into dental services--and has a number to call PE Looks herself She pushes on the chest wall Does not feel it with pushing on the chest wall But with pushing hard enough does feel it more on the left than the right At times tearful talking about the bipolar dx But brightens as I redirect and talk about the animals in her yard A/P 1. We talked about the chest pains, suspect they are benign We discussed If there is concern, an in person visit would be the next step With a decision about stress testing At this point, she has not wished to come for a visit And is comfortable following clinically at present 2. Respiratory symptoms have largely improved She still worries about having COVID 19 So can call local hospital and get tested 3. She has been thinking about a bipolar diagnosis She would like to get back to work Still has anxiety Concerned that she has manic episodes--has episodes of high energy, writing a lot, cleaning a lot then getting angry with her family Feels this is a barrier to getting back to work Having difficulty keeping a normal schedule 4. She has discovered that her preferred pharmacy is [facility] and scripts are more affordable, so she is ok with the prepro Still having some night sweats, will hold the dose for another month before increasing the dose 5. She will call the dentists office, and if able start to work on her teeth documented in this encounter Plan of Treatment Upcoming Encounters Date Type Specialty Care Team Description 04/14/2022 Office Visit Neurology Cameron Alves MD [facility] [address] [place], [place] [address] (Wo rk) documented as of [...] as of this encounter Visit Diagnoses Diagnosis Musculoskeletal chest pain Other chest pain Migraine with aura and without status mi grainosus, not intractable Migraine with aura, without mention of i ntractable migraine without mention of status migrainosus Dental abscess Periapical abscess without sinus documented in this encounter Care Teams Public Information Specialist Relationship Specialty Start Date End Date Lolis Moss MD PCP - General General Internal Medicine 04/15/[address] [facility] [address] [place] [address] documented as of this encounter
--- OUTSIDE RECORDS SUMMARY | 2022-03-18 11:30 | XMS_ITS | Encounter Summary ---
:1970 Author Organization [facility] [place] [address] Care Team Providers Name Role Phone Lolis Moss MD Primary Care Provider Encounter Details Date Type Department Care Team Description 01/03/2020 Orders Only Gastroenterology at [facility] [place] Haydee Santillan, [facility] [place] [address] [facility] [phone] GASTROENTEROLOGY [place], [place] [address] (Wo rk) Social History Tobacco [...] MD [facility] [place], [place] [address] (Wo rk) documented as of [...] on filedocumented in this encounter Care Teams Liquor Merchant Relationship Specialty Start Date End Date Lolis Moss MD PCP - General General Internal Medicine 04/15/16 [address] [facility] [address] KARINA SALTER [facility] [place] [address] documented as of this encounter
--- OUTSIDE RECORDS SUMMARY | 2022-03-18 11:30 | XMS_ITS | Encounter Summary ---
:1970 Author Organization [facility] [place] [address] Care Team Providers Name Role Phone Lolis Moss MD Primary Care Provider Reason for Visit Reason Onset Date Comments Triage 01/01/2020 sleeping issues Encounter Details Date Type Department Care Team Description 01/01/2020 Telephone [facility] Medicine at [place] [facility] (sleeping [address] issues) [address] [place] [address] Social History Tobacco Use Types Packs/Day Years Used Date Former Smoker Cigarettes 0 15 Quit: 08/30/19 18 Smokeless Tobacco: Never Used Alcohol Use Standard Drinks/Week Comments Not Currently 0 (1 standard drink = 0.6 oz pure alcoho l) Sex Assigned at Date Recorded Not on file documented as of this encounter Miscellaneous Notes Telephone Encounter - Linda Jarvis RN - 01/01/2020 8:04 AM EDT Caller: patient Patient identified by name and Chief Complaint: Sleeping issues Onset: ongoing Objective & Relative System Assessment (pain scale): Pt sleeping 5-6 hrs a night. Pt keeps waking everyday drenched in sweat. Pt is on prempro, Ovaries out 09/22/2019, had follow up call with the surgeon. Pt is not sure if the prempro is the issue. Pt having difficulty eating anything x liquids. Pt is having difficulty with esophagus, referral is in. It was placed . It is not scheduled as of this writing. Discussed that referral has not been in for even a week and generally it takes that amount of time for gastro to review the referrals and then schedule. Pt feels she cannot continue to be on liquids only. Pt will call over to gastro to see about her being scheduled. Pt is wondering if there is anything further to help with the night sweats, has been on the same dose of prempro since started. Not sure ifthere is another medication to handle. Alleviating Factors: prempro not working Pertinent History: Ovaries removed 09/2019 Plan: ___X__Will Discuss with PCP/COS and then call patient back. Appointment Scheduled Date: With: Call 911 Advised to seek Emergent Care Advised to seek Urgent nursing home Care Instructions provided per: ____[facility] Telephone Triage Protocols for Nurses / edition. ____Schmitt: Pediatric Telephone protocols edition Recommendations for worsening condition:call back Does the Patient agree and understand the instructions provided: Yes Note routed to: Dr Moss. For review. Telephone Encounter - Darleen Ricardo - 01/01/2020 7:27 AM EDT Message: pt is calling in regards to message in chart from 12/30. She would like to speak with a nurse about sleeping issues. Please call her back to discuss Ask caller their first and last name and relationship to the patient: Lisseth Best time to call back: any Ok to leave a message: yes Ok to send my- message: Offered Appointment: no MA/Nurse/Associate Professor Of Radiology contacted via: Message: yes Call: no Pager: no documented in this encounter Plan of Treatment Upcoming Encounters Date Type Specialty Care Team Description 04/14/2022 Office Visit Neurology Cameron Alves MD [facility] [address] [place], [place] [address] (Wo rk) documented as of [...] on filedocumented in this encounter Care Teams Buncher Machine Relationship Specialty Start Date End Date Lolis Moss MD PCP - General General Internal Medicine 04/15/[address] [facility] [address] KARINA SALTER [facility] [place] [address] documented as of this encounter
--- OUTSIDE RECORDS SUMMARY | 2022-03-18 11:30 | XMS_ITS | Encounter Summary ---
:1970 Author Organization [facility] [place] [address] Care Team Providers Name Role Phone Lolis Moss MD Primary Care Provider Reason for Visit Auth/Cert Specialty Diagnoses / Procedures Referred By Contact Refer red To Contact Diagnoses Dysphagia Dysphagia, unspecified type Procedures PRO UPPER GI ENDOSCOPY, DIAGNOSTIC EGD, UPPER GI ENDOSCOPY Referral ID Status Reason Start Date Expiration Date Visits Requ ested Visits Authorized [id number] 1 1 Encounter Details Date Type Department Care Team Description 12/27/2019 Hospital Encounter Gastroenterology at [facility] Inocencia Kasper, [facility] [place] [address] [facility] [phone] [place] [address] Social History Tobacco Use Types Packs/Day [...] Sign Reading Time Taken Comments Blood Pressure 128/81 12/27/2019 11:40 AM EDT Pulse 76 12/27/2019 11:10 AM EDT Temperature 36.5 ??C (97.7 ??F) 12/27/2019 9:14 AM EDT Respiratory Rate 18 12/27/2019 11:10 AM EDT Oxygen Saturation 98% 12/27/2019 11:40 AM EDT Inhaled Oxygen Concentration - - [...] the day after the procedure, use an ocrv-bnc-tiaeccd spray to numb yourthroat. Sucking on throat [...] occurs, please contact your Doctor. Please call [phone] before 8pm Mon-Fri with problems, questions or concerns. If you call after 8pm or on weekends, call the Hospital at [phone] and ask to speak to the Game Trapper continuity tester and the track equipment operator will contact that person for you. When should you call for help? Call [phone] anytime you think you may need emergency [...] any problems. Where can you learn more? [facility] View your After Visit Summary and more online at [email or web address] If you would like to provide [...] cost to you. Content Version: 12.2 ?? [id number] [employer]. Care instructions adapted under license by [facility]. If you have questions about a medical condition or this instruction, always ask your healthcare professional. [employer] disclaims any warranty or liability for your [...] documented as of this encounter H&P Notes Nancy Eason MD - 12/27/2019 10:03 AM EDT Gastroenterology [...] 04/14/2022 Office Visit Neurology Cameron Alves MD [facility] [address] [place] [address] (Wo rk) documented as of this encounter Goals Goal Patient Goal Associated Recent Patient-Stated? Author Type Problems Progress DH Home Medication Patient No Conkli n, Compliance and Facing aKn P, Understanding Action Plan [facility] Note: Formatting of this note might [...] 12/27/2019 AM EDT 11:00 AM EDT Narrative [facility] - 12/27/2019 11:00 AM EDT Specimen requisition ordered. ??Separate Pathology report to follow Inocencia Kasper MD PATHOLOGY/CYTOLOGY ORDERABLE S Performing Organization Address City/State/[place] [address] Specimen to Pathology (12/27/2019 11:00 AM EDT) Specimen Anatomical Collection Method Collection Time Receive d Time (Source) Location / / Volume Laterality AP Specimen 12/27/2019 11:00 12/27/2019 AM EDT 11:00 AM EDT Narrative [facility] - 12/27/2019 11:00 AM EDT Specimen requisition ordered. ??Separate Pathology report to follow Inocencia Kasper MD PATHOLOGY/CYTOLOGY ORDERABLE S Performing Organization Address City/State/[place] [address] [facility] [address] Specimen to Pathology (12/27/2019 11:00 AM EDT) Specimen Anatomical Collection Method Collection Time Receive d Time (Source) Location / / Volume Laterality AP Specimen 12/27/2019 11:00 12/27/2019 AM EDT 11:00 AM EDT Narrative [facility] - 12/27/2019 11:00 AM EDT Specimen requisition ordered. ??Separate Pathology report to follow Inocencia Kasper MD PATHOLOGY/CYTOLOGY ORDERABLE S Performing Organization Address City/[facility]/[place]IP [place] [address] [facility] [facility] [address] [address] Surgical Pathology Report (12/27/2019 10:45 AM EDT) Component Value Ref Test Analysis Performed At [facility] gist Range Method Time Signature Surgical [id number] ? Location: 4T; EA10; A [facility] Report The signing pathologist has (i) examined the relevant preparation(s) for the [facility] specimen(s) and (ii) rendered or confirmed [...] Ramsey MD Verified: ??12/28/2019 ?Pathologist Performed at: ??-[facility] Dept. of Pathology, [place], [place] SPECIMEN(S) SUBMITTED A - duodenum, biopsy [...] Organization Address City/State/[place] [address] UPPER GI ENDOSCOPY (12/27/2019 10:07 AM EDT) Component Value Ref Test Analysis Performed At [facility] gist Range Method Time Signature UPPER GI [facility] ENDOSCOPY Endoscopy Procedure Date: 12/27/2019 10:07 AM ? Patient Name: Lisseth Boone ? Date of : 1970 ? Age: 49 ? Order #: [id number] ? Instrument Name: [id number] ? Procedure: ? Upper GI endoscopy Indications: ? Dysphagia, Odynophagia Providers: ? Inocencia Kasper MD, Nancy Veronica ts, ? , Carlos Alberto Haley RN, Telma Siddiqui, ? Tar Worker Referring : ?Lolis Moss Medicines: ? Midazolam [...] reactions. The ? Endoscope was introduced thro [facility] the ? mouth, and advanced to the [facility] ? of duodenum. The patient tole [...] Procedure Code(s): ?? --- Professional --- ? 68978, Esophagogastroduodenos copy, ? flexible, transoral; with bio psy, ? single or multiple CPT copyright 2019 [employer]. All rights reserved. The codes documented in this report are preliminary and upon clinical coder review may be revised to meet current [...] / Volume Laterality 12/27/2019 10:07 AM EDT Lolsi Moss MD GENERAL SURGICAL ORDERABLES Performing Organization Address City/State/ZIP Code Phon e Number [employer] documented in this encounter Visit Diagnoses Not on filedocumented in this encounter Administered Medications Inactive Administered Medications - up to 3 most recent administrations Medication Order MAR Action Action Date Dose Rate Site lactated ringers infusion New Bag 12/27/2019 9:30 AM EDT 100 mL/hr 100 mL/hr 100 mL/hr, Intravenous, CONTINUOUS, Starting on Wed12/27/19 at 0930, Until Wed12/27/19 at 1408, Endoscopy (Day of Procedure) documented in this encounter Active and Recently Administered Medications Times are shown in EDT. Continuous Medication Order 12/25/2019 12/26/2019 12/27/2019 lactated ringers infusion 0930 ( New Bag - Provider: Zabrina Min RN) 100 mL/hr, at 100 mL/hr, Intravenous, CO NTINUOUS, Starting 12/27/19 at 0930, Until 12/27/19 at 1408, Endo (Day of Procedure) PRN [...] ONCE PRN, Starting Wed12/27/19 at 1023, Until 12/27/19 at 1408, Intra- Operative (Intra-Procedure), Routine fentaNYL 50 mcg/mL multi-dose injection (CANCELED) 1021 (Given - Provider: Carlos Alberto Haley RN)1025 (Given - Provider: Carlos Alberto Haley RN)1029 (Given - Provider: Carlos Alberto Haley RN)1033 (Given - Provider: Carlos Alberto Haley RN)1050 (Given - Provider: Carlos Alberto Haley RN) ONCE PRN, Starting Wed12/27/19 at 1021, Until 12/27/19 at 1408, Intra- Operative (Intra-Procedure), Routine midazolam [...] Routine documented in this encounter Care Teams Sanitary Landfill Supervisor Relationship Specialty Start Date End Date Llois Moss MD PCP - General General Internal Medicine 04/15/16 0 [facility] [place] [place] [address] documented as of this encounter
--- OUTSIDE RECORDS SUMMARY | 2022-03-18 11:30 | XMS_ITS | Encounter Summary ---
:1970 Author Organization [facility] [address] Care Team Providers Name Role Phone Lolis Moss MD Primary Care Provider Reason for Referral Consultation (Urgent) - Closed Specialty Diagnoses / Procedures Referred By Contact Refer red To Contact Gastroenterology Diagnoses Dysphagia, unspecified type Haydee Santillan, [facility] [place] [address] [place] [address] Referral ID Status Reason Start Date Expiration Date Visits V isits Requested Authorized [id number] Closed Consult, 12/22/2019 12/21/2020 1 1 Test & Treat Reason for Visit Consultation (Routine) - Closed Specialty Diagnoses / Procedures Referred By Contact Refer red To Contact Gastroenterology Diagnoses Non-intractable vomiting with nausea, unspecified vomiting type intractable vomiting with nausea, unspecified vomiting Lolis Moss MD [facility] [place] [address] [phone] Fax: Referral ID Status Reason Start Date Expiration Date Visits V isits Requested Authorized [id number] Closed Specialty 12/12/2019 12/11/2020 1 1 Service Requested Encounter Details Date Type Department Care Team Description 12/22/2019 TH Visit Gastroenterology at [facility] Haydee Santillan Dysphagia, (TeleHealth) [facility] [place] [id number] [facility] [phone] [place] [address] Social History Tobacco Use Types Packs/Day Years Used Date Former Smoker Cigarettes 0.25 15 Quit: 08/30/19 18 Smokeless Tobacco: Never Used Comments: 12/18/2019 started chantex Alcohol Use Standard Drinks/Week Comments Not Currently 0 (1 standard drink = 0.6 oz pure alcoho l) Sex Assigned at Date Recorded Not on file documented as of this encounter Progress Notes Haydee Santillan PA - 12/22/2019 10:00 AM EDT GASTROENTEROLOGY TELEHEALTH PROGRAM - NEW PATIENT VISIT Chief Complaint: Lisseth Boone is a 49 y.o. patient referred for consultation by Dr. Moss for dysphagia History of Present Illness: 49 y.o. female with dysphagia Reports nausea and abdominal discomfort. She has [...] few times per week Takes zegerid daily Review of systems: 14-point review of systems reviewed and negative except as above. Medications: ??? chlorhexidine (PERIDEX) 0.12 % Mouthwash ??? varenicline (Chantix) 0.5 mg Tablet ??? clonazePAM (KlonoPIN) 0.5 mg Tablet ??? topiramate (Topamax) 25 mg Tablet ??? montelukast (Singulair) 10 mg Tablet ??? ubrogepant (Ubrelvy) 100 mg Tablet ??? traZODone (Desyrel) 50 mg Tablet ??? candesartan (Atacand) 16 mg Tablet ??? ondansetron (Zofran) 8 mg Tablet ??? ibuprofen (Advil;Motrin) 600 mg Tablet ??? DULoxetine (CYMBALTA) 60 mg Capsule, Delayed Release(E.C.) ??? AIMOVIG AUTOINJECTOR 140 mg/mL Auto-Injector ??? topiramate (TOPAMAX) 200 mg Tablet ??? baclofen (LIORESAL) 20 mg Tablet ??? omeprazole/sodium bicarbonate (ZEGERID ORAL) ??? MAGNESIUM ORAL ??? UBIDECARENONE (COENZYME Q10 ORAL) ??? multivitamin (THERAGRAN) Tablet ??? riboflavin, vitamin B2, 100 mg Tablet ??? estrogen, conjugated,-medroxyPROGESTERone (PREMPRO) 0.3-1.5 mg Tablet Allergies: is allergic to pollen extracts. Past Medical History: has a past medical history of Anxiety, Back pain, Bipolar disorder, Bleeding disorder, Bowel disease, C1 cervical fracture, Cancer, Cervical cancer, Chronic kidney disease, Depression, ELIANA (generalized anxiety disorder), GERD (gastroesophageal reflux disease), Headache(784.0), Hyp ertension, Liver disease, Mental health problem, Metabolic acidosis, Motion sickness, Peptic ulcer disease, Psoriasis, Psoriatic arthritis, Psychosis, Seizure, Syncope, TBI (traumatic brain injury), and Total body pain. Past Surgical History: has a past surgical history that includes Cervix surgery; Cholecystectomy; Tubal ligation; Colonoscopy, Biopsy (14464) (N/A, 02/11/2016); Upper Gi Endoscopy, Biopsy (47057) (N/A, 02/11/2016); ovarian cyst removal; Breast biopsy (Right, 2011); ovarian cyst removal (2004); and Lap, Rmv Adnexal Structure (59819) (N/A, 09/22/2019). Family History: family history includes Abdominal Aortic Aneurysm (age of onset: 50) in her mother; Arthritis in her father; Breast Cancer (age of onset: 30) in her mother; Breast Cancer (age of onset:72) in her paternal grandmother; Cervical Cancer in her mother; Migraines in her father; Ovarian Cancer in her maternal grandmother. Social History: reports that she has been smoking cigarettes. She has a 3.75 pack-year smoking history. She has never used smokeless tobacco. She reports previous alcohol use. She reports that she doesnot use drugs. No Physical Examination performed during this telemedicine visit Laboratory studies, imaging, and procedures (my review of prior records): EGD 2016 Impression: ?- Normal esophagus. ?- Normal stomach. 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 Dilated to 10 ?mm to allow passage of the scope. ?- Normal ampulla and 2nd part of the ?duodenum. ?- Biopsies were taken with a cold ?forceps for Helicobacter pylori ? testing. Assessment/Plan: Ms. Boone is a 49 y.o. patient with worsening, progressive dysphagia. She notes dysphagia with solids, not typically liquids. This has been occurring daily since August. She has been eating a more liquid-based diet, smoothies for breakfast etc. She notes nausea and early satiety as well. She recently began recreational marijuana before meals and feels this has been helping her nausea. We did discuss cannabis hyperemesis syndrome. We reviewed her EGD from 2016 where dilation was performed. Recommendations at that time were for repeat EGD pending symptoms. Given worsening dysphagia, we will proceed with repeat endoscopic evaluation. Pending EGD, we may want to consider high-resolution esophageal manometry if no strictures are identified. She also may benefit from smart pill evaluation given nausea and early satiety. She is comfortable with this plan. In the meantime, she will continue on a more liquid-based diet. I did recommend meal replacements such as boost, Ensure or [place] instant breakfast. I spent 30 minutes face to face with the patient. 30 minutes were spent on counseling and discussionas of the above during this telemedicine visit. The patient was located in [place] at the time of their visit. LARON Lentz [facility] [place] [id number] documented in this encounter Plan of Treatment Upcoming Encounters Date Type Specialty Care Team Description 04/14/2022 Office Visit Neurology Cameron Alves MD [facility] er [place] [address] (Wo rk) Scheduled Referrals Name Type Priority Associated Order Schedule Diagnoses Referral to Outpatient Routine Dysphagia, Ordered: Gastroenterology Referral unspecified type 020 documented as of this encounter Goals Goal [...] type documented in this encounter Care Teams Professor Of Environmental Studies Relationship Specialty Start Date End Date Lolis Moss MD PCP - General General Internal Medicine 04/15/[address] [facility] [address] KARINA SALTER [facility] [place] [id number] documented as of this encounter
--- OUTSIDE RECORDS SUMMARY | 2022-03-18 11:30 | XMS_ITS | Encounter Summary ---
:1970 Author Organization [facility] [place] [address] Care Team Providers Name Role Phone Lolis Moss MD Primary Care Provider Encounter Details Date Type Department Care Team Description 12/27/2019 Telephone Gastroenterology at [facility] Haydee Santillan [facility] [place] [address] [facility] [phone] GASTROENTEROLOGY [place], [place] [address] (Wo rk) Social History Tobacco [...] Telephone Encounter - Haydee Santillan PA - 12/27/2019 2:50 PM EDT Called patient to discuss results. She is very anxious about her symptoms. We reviewed going forward with a high resolution manometry and gastric emptying scan She remains on her PPI documented in this encounter Plan of Treatment Upcoming Encounters Date Type Specialty Care Team Description 04/14/2022 Office Visit Neurology Cameron Alves MD [facility] [address] [place] [address] (Wo rk) documented as of this encounter Goals Goal Patient Goal Associated Recent Patient-Stated? Author Type Problems Progress DH Home Medication Patient No Kendrick ridley, Compliance and Facing Kan Restrepo, Understanding Action Plan [facility] Note: Formatting of this note might be d ifferent from the original. Patient's specific desired goal: to have fewer headaches and to use less adjunct / rescue medication Measured by: calendar, frequency of use of adjunct / rescue meds Time-frame to meet goal: 90-150 days documented as of this encounter Visit Diagnoses Diagnosis Dysphagia, unspecified type Nausea without vomiting documented in this encounter Care Teams Jointer Machine Operator Relationship Specialty Start Date End Date Lolis Moss MD PCP - General General Internal Medicine 04/15/16 [address] [facility] [address] [place]ARINA [place] [address] documented as of this encounter
--- OUTSIDE RECORDS SUMMARY | 2022-03-18 11:30 | XMS_ITS | Encounter Summary ---
:1970 Author Organization [facility] [place] [address] Care Team Providers Name Role Phone Lolis Moss MD Primary Care Provider Encounter Details Date Type Department Care Team Description 01/03/2020 Notes Only Gastroenterology at [facility] Haydee Santillan [facility] [place] [address] [facility] [phone] GASTROENTEROLOGY [place], [place] [address] (Wo rk) Social History Tobacco Use Types Packs/Day Years Used Date Former Smoker Cigarettes 0 15 Quit: 08/30/19 18 Smokeless Tobacco: Never Used Alcohol Use Standard Drinks/Week Comments Not Currently 0 (1 standard drink = 0.6 oz pure alcoho l) Sex Assigned at Date Recorded Not on file documented as of this encounter Progress Notes Haydee Santillan PA - 01/03/2020 1:30 PM EDT GI legal secretary receptionist contacted patient to arrange barium swallow. Patient elected to forgo workup at [facility] and transfer her care documented in this encounter Plan of Treatment Upcoming Encounters Date Type Specialty Care Team Description 04/14/2022 Office Visit Neurology Cameron Alves MD [facility] er [place] [address] (Wo rk) documented as of this encounter Goals Goal Patient Goal Associated Recent Patient-Stated? Author Type Problems Progress DH Home Medication Patient No Kendrick ridley, Compliance and Facing Kan Restrepo, Understanding Action Plan [facility] [...] on filedocumented in this encounter Care Teams Charging Machine Operator Relationship Specialty Start Date End Date Lolis Moss MD PCP - General General Internal Medicine 04/15/16 [address] [facility] [address] KARINA [place] [address] documented as of this encounter
--- OUTSIDE RECORDS SUMMARY | 2022-03-18 11:30 | XMS_ITS | Encounter Summary ---
:1970 Author Organization [facility] [place] [address] Care Team Providers Name Role Phone Lolis Moss MD Primary Care Provider Reason for Visit Reason Comments Follow-up Encounter Details Date Type Department Care Team Description 12/08/2019 TH Visit Internal Medicine at Lolis Moss urgitation of (TeleHealth) Single[facility] MD Pernell stomach contents [address] [place], [place] CENTER [address] [facility] [phone] PRIMARY CARE [place] [address] Social History Tobacco Use Types Packs/Day Years Used Date Former Smoker Cigarettes 0.5 15 Quit: 08/30/19 18 Smokeless Tobacco: Never Used Comments: Started smoking at 45 Alcohol Use Standard Drinks/Week Comments Not Currently 0 (1 standard drink = 0.6 oz pure alcoho l) Sex Assigned at Date Recorded Not on file documented as of this encounter Progress Notes Jean Zaragoza, THEO - 12/08/2019 3:20 PM EDT Patient contacted at Preferred phone: [phone] Patient confirms location for visit as: Home address: [address] [place] [id number] If phone visit: patient verbally consents to this telephone visit and understands that this visit may be billed, similar to a clinic office visit. Medications were reconciled. Allergies were reviewed. Chief complaint was updated. Questionnaires administered and results (can pull in with .Q(questionnaire)) Please place an X in the box if the questionnaire was assigned [] Pediatric well visit questionnaire(s) - Jeffy Kerr (1824 mo) [] PHQ-9, ELIANA-7, AUDIT for behavioral health issues [] BAM (Brief addiction monitor) for MAT visit [] FALLS questionnaire for hospital follow-up [] CCSA & FALLS for new medicaid [] AWV questionnaire for Annual Wellness Visits [] CHIROPRACTIC Questionnaire [x] NONE Lolis Moss MD - 12/08/2019 3:20 PM EDT Telephone visit SHANON 19 pandemic [place] in [place] Discussed this visit will be billed Woke up this am chocking Has burning and mucus in the mouth Otho like she could not breath Had to vomit/spit it out It was frightening So not sure if was mucus or bringing stuff up from the stomach Does feel like there is stuff building up in her mouth Perhaps from the teeth She is having a hard time with her digestion She is now getting constipated and other times diarrhea Has not taken anything for the bowels occasionally takes a stool softener which gives her diarrhea Fiber, can make her bloat and not feel better She is trying to do the FODMAP But has gotten away from that sometimes Had been taking smoothys, fruit/veg, seeds, protein powder, yoghert Mouth is maybe less red and swollen on the antibiotics But still has the tooth pain Did look up on line what thrush looks like Mouth is not typical for thrush Grand child was born earlier in the week She has yet to see the grand child Worries about contact A/P We made the following short term plan Finish the antibiotics and stop. Wonder if the antibiotics are up setting the stomach. Do not do mouth cleaning more than twice a day Have her sleep with head of bed elevated She is taking the omeprazole She has the video tatyana working, so if concern about thrush persists, we can do a telehealth visit But right now would rather not add more medcine documented in this encounter Plan of Treatment Upcoming Encounters Date Type Specialty Care Team Description 04/14/2022 Office Visit Neurology Cameron Alves MD [facility] [place], [place] [address] (Wo rk) documented as of this encounter Goals Goal Patient Goal Associated Recent Patient-Stated? Author Type Problems Progress DH Home Medication Patient No Kendrick ridley, Compliance and Facing Kan Restrepo, Understanding Action Plan [facility] Note: Formatting of this note might be d ifferent from the original. Patient's specific desired goal: to have fewer headaches and to use less adjunct / rescue medication Measured by: calendar, frequency of use of adjunct / rescue meds Time-frame to meet goal: 90-150 days documented as of this encounter Visit Diagnoses Diagnosis Regurgitation of stomach contents documented in this encounter Care Teams Matchbook Assembler Relationship Specialty Start Date End Date Lolis Moss MD PCP - General General Internal Medicine 04/15/[address] [facility] [address] KARINA SAL[place] [address] documented as of this encounter
--- OUTSIDE RECORDS SUMMARY | 2022-03-18 11:30 | XMS_ITS | Encounter Summary ---
:1970 Author Organization [facility] [place] [address] Care Team Providers Name Role Phone Lolis Moss MD Primary Care Provider Reason for Visit Reason Onset Date Comments Triage 12/25/2019 Encounter Details Date Type Department Care Team Description 12/25/2019 Telephone Internal Medicine at [facility], [facility] [address] [place] [address] Social History Tobacco Use Types Packs/Day [...] Telephone Encounter - Leah Spencer RN - 12/25/2019 8:28 AM EDT Caller: Lisseth Boone Patient identified by name and Chief complaint: constant chest pain with breathing Onset: 12/17 Description of symptoms: Left sided chest pain when walking to the bathroom, improved with rest Some pain in left shoulder Constant pain with breathing SOB afebrile Evaluated in ED on 12/23/19 Alleviating factors: rest Pertinent hx: 12/22 hospital record in scan doc (no test results received yet) Vitals stable (slight tachy slight elevated BP) and CXR negative. Hx: CKD, GERD, smoking, psych hx Telehealth screen: [x] Established patient [x] Has access to Internet smart phone or computer with camera [] Would need phone visit Plan: [] Gave home care instructions [] Routed to PCP / COS to advise [x] Tele health visit indicated- [facility] scheduled with Lolis Moss MD at 9:00 am [] Emergent care needed. Advised to present to nearest ED. We will provide courtesy call to ED to report likely COVID-19 status [] Call 911. Inform dispatch of potential COVID-19 status Home quarantine: Until test results are available Home Care Instructions provided per: [x] [facility] Telephone Triage Protocols for Nurses 11/18 edition. [] Jaeger: Pediatric Telephone protocols edition rest and relax as much as possible Recommendations for worsening condition: ED if advised following TH Does the Patient agree and understand the instructions provided: yes Note routed to: Lolis Moss MD For review. Telephone Encounter - Ciera Carlos - 12/25/2019 8:10 AM EDT Message: Lisseth called. She had a Telehealth appointment with Dr. Perera. She developed a fever and had shortness of breath. Patient had a Covid 19 test yesterday and no results have been given to her. She sounds winded and she says that her chest pains have increased since she has started to use and inhaler. She had an x-ray on Wednesday at [facility]. Covid 19 test was done at [facility]. Ask caller their first and last name and relationship to the patient: Lisseth Boone Best time to call back: as soon as possible Ok to leave a message: y Ok to send - message: n Offered Appointment: khai GRACE/Nurse/Technology Internship contacted via: Message: y Call: y Pager: n documented in this encounter Plan of Treatment Upcoming Encounters Date Type Specialty Care Team Description 04/14/2022 Office Visit Neurology Cameron Alves MD [facility] [place], [place] [address] (Wo rk) documented as of [...] on filedocumented in this encounter Care Teams Aviation Technician Aircraft Relationship Specialty Start Date End Date Lolis Moss MD PCP - General General Internal Medicine 04/15/[address] [facility] [address] [place]ARINA [place] [address] documented as of this encounter
--- OUTSIDE RECORDS SUMMARY | 2022-03-18 11:30 | XMS_ITS | Encounter Summary ---
:1970 Author Organization [facility] [address] Care Team Providers Name Role Phone Lolis Moss MD Primary Care Provider Reason for Visit Reason Onset Date Comments Teeth Problems 12/04/2019 Encounter Details Date Type Department Care Team Description 12/04/2019 Telephone Internal Medicine at [facility] [place] [address] Social History Tobacco Use Types Packs/Day [...] Telephone Encounter - Leah Spencer RN - 12/04/2019 3:01 PM EDT H visit with Lolis Moss MD on 11/29. Given antifungal for bacterial vaginosis. No mention of oral infection in office notes. Caller: Lisseth Boone Patient identified by name and Chief complaint: bleeding and pus in lower teeth gumline Onset: ~3 days (over weekend) Description of symptoms: Lower teeth eroded from vomiting due to chronic migraines. Over the weekend she developed fever (peak 101.7 f) Night sweats, soaking clothes. Has pain on mastication, and spitting yellow pus with some blood along lower gumline. No teeth are movable or pliable, no tooth bits missing Dentist office closed. Alleviating factors: salt water rinse Pertinent hx: STEPHANIE 11/29 for bacterial vaginosis. Given flagyl 500 mg BID for week. Past Medical History: Diagnosis Date ??? Anxiety [...] brain injury) Sep ??? Total body pain Telehealth screen: [x] Established patient [] Has access to Internet smart phone or computer with camera [] Would need phone visit Plan: [x] Gave home care instructions [] Routed to PCP / COS to advise [x] Tele health visit indicated- 24 hours. [facility] scheduled with Lolis Moss MD at 4:40. Sent patient download instructions. [] Emergent care needed. Advised to present to nearest ED. We will provide courtesy call to ED to report likely COVID-19 status [] Call 911. Inform dispatch of potential COVID-19 status Home quarantine: For at least 7 days or 72 ours of symptom resolution without fever-reducers Home Care Instructions provided per: Advised salt water rinses following any oral intake. Recommendations for worsening condition: if teeth feel loose or vomiting -> ED. Concern for systemic infection. Does the Patient agree and understand the instructions provided: yes Note routed to: Lolis Moss MD For review. Telephone Encounter - Gary Lele Nita - 12/04/2019 2:50 PM EDT Message: Patient believes she has periodontitis. Patient does not have a dentist, and says the antibiotic that was prescribed by Lolis Moss MD has not worked. Pt describes that there is pus andblood in her mouth from her gums. Patient also has an on and off again fever. Please call back to discuss. Ask caller their first and last name and relationship to the patient: Best time to call back: Any time Ok to leave a message: Yes Ok to send my- message: Yes Offered Appointment: MA/Nurse/[place] contacted via: Message: Yes Call: Yes Pager: No documented in this encounter Plan of Treatment Upcoming Encounters Date Type Specialty Care Team Description 04/14/2022 Office Visit Neurology Cameron Alves MD [facility] [address] [place] [address] (Wo rk) documented [...] on filedocumented in this encounter Care Teams Rehab/Pre Vocational Counselor Relationship Specialty Start Date End Date Lolis Moss MD PCP - General General Internal Medicine 04/15/[address] [facility] [address] KARINA [place] [address] documented as of this encounter
--- OUTSIDE RECORDS SUMMARY | 2022-03-18 11:30 | XMS_ITS | Encounter Summary ---
:1970 Author Organization [facility] [place] [address] Care Team Providers Name Role Phone Lolis Moss MD Primary Care Provider Reason for Visit Reason Comments Follow-up follow up for chest pains,pt has them right now on the left side,by the heart,off and on the past si nce before the visit with on 12/22/2019 Encounter Details Date Type Department Care Team Description 12/28/2019 TH Visit Internal Medicine at Lolis Moss; (TeleHealth) [facility] Kolton Gimenez MD Psoriatic arthritis [address] [place], [place] CENTER [address] [facility] [phone] PRIMARY CARE [place], [place] [address] Social History Tobacco Use Types Packs/Day Years Used Date Former Smoker Cigarettes 0 15 Quit: 08/30/19 18 Smokeless Tobacco: Never Used Alcohol Use Standard Drinks/Week Comments Not Currently 0 (1 standard drink = 0.6 oz pure alcoho l) Sex Assigned at Date Recorded Not on file documented as of this encounter Progress Notes Inocencia Richards, THEO - 12/28/2019 1:20 PM EDT Patient contacted at Preferred phone: [phone] Patient confirms location for visit as: home Home address: [address] [place] [phone] If phone visit: patient verbally consents to this telephone visit and understands that this visit may be billed, similar to a clinic office visit. Patient Is OK with possibility of a medical student involved in their care Medications were reconciled. Allergies were reviewed. Health Maintenance was reviewed and pended forprovider review. Chief complaint was updated. If the pre-call was done 2 weeks before appt date, ask the Patient when would be a good time to callback on the day before the appt, so we can make sure nothing has changed: Questionnaires administered and results (can pull in with .Q(questionnaire)) Please place an X in the box if the questionnaire was assigned [] Pediatric well visit questionnaire(s) - Bright Gyross, M-Chat (18/24 mo) [] Pediatric Smart Set. [] PHQ-9, ELIANA-7, AUDIT for behavioral health issues [] BAM (Brief addiction monitor) for MAT visit [] FALLS questionnaire for hospital follow-up [] CCSA & FALLS for new medicaid [] AWV questionnaire for Annual Wellness Visits [] CHIROPRACTIC Questionnaire [] NONE Please ask the Patient if they have any of these tools available: If patients do have these tools please ask them to take their vitals prior to the provider visit. Please place an X in the box if they have the following, [x] Scale [x] BP Cuff [] Pulse Oximeter [] Thermometer pt has one but does not work right now Lolis Moss MD - 12/28/2019 1:20 PM EDT telehealth visit COVID 19 pandemic She is in [place], [place] I am in [place], [place] Discussed the visit will be billed Follow up chest pain and stomach I am a hot mess Had EGD yesterday Had some gastric inflammation Waiting on biopsy Esophageal manometry and gastric emptying study are planned She has not been using the inhaler No tobacco or THC Has not needed to use the patch Still difficult to swallow pills We discussed that she does not have a blockage in the esophagus She is having some coughing and sneezing Wonders if she needs to take the singulair--we discussed for symptoms Chest pain, still having that on the left side and right side Sometimes when sitting, at night, after activity Still in same spot, a sharp pain that ebbs Some pain in the back of her neck Sometimes when breathing has some pain on the left and right As she takes a breath More towards the evening Has been doing regular activities Today was walking around with the computer Almost pacing But we lost signal and she sat down Had her show me her back--no rash Had her bend to touch the toes And reach side to side This did not bother the back, it bothered the left chest breast area She did start the zyprexa--feels it is working She feels she is more productive Sleeping better--sleeping through then night And doing better interacting with her family Yesterday took a walk after the trip to the hospital Stopped at [employer] had some oswaldo tea and ordered a meal Sounds like she had a pleasant time A/P 1. Will get the stress test tomorrow, discussed that seeing what she did on the treadmill would be helpful To know what happens when she exercises 2. Will follow through with GI studies We talked about how it was good news that she does not have a blockage in her esophagus 3. Ok to stay off the albuterol and singulair Respiratory symptoms have been less prominant 4. Glad she is not smoking documented in this encounter Plan of Treatment Upcoming Encounters Date Type Specialty Care Team Description 04/14/2022 Office Visit Neurology Cameron Alves MD [facility] [address] [place] [address] (Wo rk) documented as of [...] as of this encounter Visit Diagnoses Diagnosis Fibromyalgia Mylagia and myositis, unspecified Psoriatic arthritis Psoriatic arthropathy documented in this encounter Care Teams Building Maintenance Mechanic Relationship Specialty Start Date End Date Lolis Moss MD PCP - General General Internal Medicine 04/15/[address] [facility] [address] KARINA SALTER PR[facility]ARE [place] [phone] documented as of this encounter
--- OUTSIDE RECORDS SUMMARY | 2022-03-18 11:30 | XMS_ITS | Encounter Summary ---
:1970 Author Organization [facility] [place] [address] Care Team Providers Name Role Phone Lolis Moss MD Primary Care Provider Encounter Details Date Type Department Care Team Description 12/18/2019 Telephone Internal Medicine at [facility] lion, Lolis Gimenez MD [facility] DR Bartolome [facility] [place] [address] [place] [address] [phone] (Wo rk) Social History Tobacco Use Types [...] Visit Neurology Cameron Alves MD [facility] [address] [place], [place] [address] (Wo rk) documented as of [...] on filedocumented in this encounter Care Teams Quill Reamer Relationship Specialty Start Date End Date Lolis Moss MD PCP - General General Internal Medicine 04/15/16 [address] [facility] [address] KARINA [place] [address] documented as of this encounter
--- OUTSIDE RECORDS SUMMARY | 2022-03-18 11:30 | XMS_ITS | Encounter Summary ---
:1970 Author Organization [facility] [place] [address] Care Team Providers Name Role Phone Lolis Moss MD Primary Care Provider Encounter Details Date Type Department Care Team Description 12/25/2019 Telephone [place] [facility] [place] [place] [address] Social History Tobacco Use Types Packs/Day [...] Telephone Encounter - Porfirio Doll RN - 12/25/2019 4:53 PM EDT Lisseth calls with worsening dysphagia with accompanied right sided chest pain. She did have a tele health visit 3 days ago about this but says it has gotten much worse since then. It hurts to swallow so much she is unable to finish her dinner. Unable to swallow her medications as if feels like they are getting stuck in her throat. It even hurts when she brushes her teeth. She did speak with Dr. Maher office earlier today about her chest pain, heart pounding, she is using her husbands inhaler. She is currently being tested for Covid 19 with a plan for a cardiac echo. documented in this encounter Plan of Treatment Upcoming Encounters Date Type Specialty Care Team Description 04/14/2022 Office Visit Neurology Cameron Alves MD [facility] [place], [place] [address] (Wo rk) documented as of this encounter Goals Goal Patient Goal Associated Recent Patient-Stated? Author Type Problems Progress DH Home Medication Patient No Kendrick ridley, Compliance and Facing Kan Restrepo, Understanding Action Plan [facility] Note: Formatting of this note might be d ifferent from the original. Patient's specific desired goal: to have fewer headaches and to use less adjunct / rescue medication Measured by: calendar, frequency of use of adjunct / rescue meds Time-frame to meet goal: 90-150 days documented as of this encounter Visit Diagnoses Not on filedocumented in this encounter Care Teams Quality Assurance Coordinator Relationship Specialty Start Date End Date Lolis Moss MD PCP - General General Internal Medicine 04/15/16 [address] [facility] [address] [place] [address] documented as of this encounter
--- OUTSIDE RECORDS SUMMARY | 2022-03-18 11:30 | XMS_ITS | Encounter Summary ---
:1970 Author Organization [facility] [place] [address] Care Team Providers Name Role Phone Lolis Moss MD Primary Care Provider Encounter Details Date Type Department Care Team Description 12/26/2019 Tele[place] [facility] [place] [address] Social History Tobacco Use Types Packs/Day Years Used Date Former Smoker Cigarettes 0.25 15 Quit: 08/30/19 18 Smokeless Tobacco: Never Used Comments: 12/18/2019 started chantex Alcohol Use Standard Drinks/Week Comments Not Currently 0 (1 standard drink = 0.6 oz pure alcoho l) Sex Assigned at Date Recorded Not on file documented as of this encounter Miscellaneous Notes Telephone Encounter - Agnieszka Batres - 12/26/2019 12:51 PM EDT Lisseth Boone [id number] Diagnosis/Indication: EGD 1. Have you ever had a/an Upper Endoscopy before? Yes: Date 02/11/16 If yes, did you have any problems with the procedure? No What type of sedation was used: IV Conscious Sedation 2. Do you take any Blood Thinners? No 3. Do you have a Pacemaker or Defibrillator device? No 4. Are you a diabetic? No 5. Do you have any Allergies to Eggs, Latex or Medications? No 6. Do you take any Oral Iron Supplements (Including multi-vitamins)? Yes (Multivitamin) 7. Do you have a history of three or more abdominal surgeries? No 8. Have you had a problem with sedation or anesthesia? No 9. Do you have a c-pap machine or oxygen tank? Neither 10. Do you take prescription narcotic pain medications, including suboxone or methodone? No 11. Do you have a preference regarding the gender of your provider? No Preference 12. Is there any other information you would like to give us to aid in scheduling? No 13. Say to patient: You must have a responsible green party who will drive you to your procedure, stay on campus for the entire duration of your procedure, and drive you home from your procedure? Height: 5'2 Weight: 109 BMI: 19.9 Age:49 y.o. documented in this encounter Plan of Treatment Upcoming Encounters Date Type Specialty Care Team Description 04/14/2022 Office Visit Neurology Cameron Alves MD [facility] [address] [place] [address] (Wo rk) documented as of [...] on filedocumented in this encounter Care Teams Insect Control Aide Relationship Specialty Start Date End Date Lolis Moss MD PCP - General General Internal Medicine 04/15/[address] [facility] [address] [place] [address] documented as of this encounter
--- OUTSIDE RECORDS SUMMARY | 2022-03-18 11:30 | XMS_ITS | Encounter Summary ---
:1970 Author Organization [facility] [place] [address] Care Team Providers Name Role Phone Lolis Moss MD Primary Care Provider Reason for Visit Reason Onset Date Comments Medication Problem 12/12/2019 Encounter Details Date Type Department Care Team Description 12/12/2019 Telephone Internal Medicine at [facility] Medication Problem [facility] [address] [place] [address] Social History Tobacco Use Types Packs/Day Years Used Date Former Smoker Cigarettes 0.5 15 Quit: 08/30/19 18 Smokeless Tobacco: Never Used Comments: Started smoking at 45 Alcohol Use Standard Drinks/Week Comments Not Currently 0 (1 standard drink = 0.6 oz pure alcoho l) Sex Assigned at Date Recorded Not on file documented as of this encounter Miscellaneous Notes Telephone Encounter - [facility] - 12/12/2019 3:15 PM EDT Pharmacy or caller: Sulma from [facility] in [place] Medication:chlorhexidine (PERIDEX) 0.12 % Mouthwash -Take 15 mLs by mouth 2 times daily. Message: Prescription was written out to dispense 250 ml however the bottle comes in 473 ml bottle and they can't open it. Is this ok? Did you contact your pharmacy?: n documented in this encounter Plan of Treatment Upcoming Encounters Date Type Specialty Care Team Description 04/14/2022 Office Visit Neurology Cameron Alves MD [facility] [address] [place] [place] [address] (Wo rk) documented as of [...] on filedocumented in this encounter Care Teams Hospitalist Nocturnist Physician Relationship Specialty Start Date End Date Lolis Moss MD PCP - General General Internal Medicine 04/15/[address] [facility] [address] [place] [address] documented as of this encounter
--- OUTSIDE RECORDS SUMMARY | 2022-03-18 11:31 | XMS_ITS | Encounter Summary ---
:1970 Author Organization [facility] Address [facility] [place] [address] Care Team Providers Name Role Phone Lolis Moss MD Primary Care Provider Encounter Details Date Type Department Care Team Description 09/07/2019 Hospital Encounter Ultrasound at [facility] Zoe Rasmussen MD Abnormal uterine [facility] bleeding [facility] [address], [place] [phone] GYNECOLOGY [phone] [place] [address] Social History Tobacco Use Types Packs/Day Years [...] Sig Dispensed Refills Start Date End Date omeprazole/sodium Take 1 tablet by mouth 0 bicarbonate (ZEGERID 2 times daily. ORAL) MAGNESIUM ORAL Take 1 tablet by mouth 0 daily. UBIDECARENONE Take 1 tablet by mouth 0 (COENZYME Q10 ORAL) daily. multivitamin Take 1 tablet by mouth 0 (THERAGRAN) Tablet daily. riboflavin, vitamin Take 1 tablet by mouth 30 tablet 11 11/15 B2, 100 mg daily. TabletIndications: Headache(784.0) ondansetron (Zofran) 8 TAKE 1 TABLET BY MOUTH 20 tablet 0 0 09/06/2019 11/06/2019 mg Tablet TWICE DAILY NEEDED FOR NAUSEA clonazePAM (KLONOPIN) Take 1 tablet by mouth 90 tablet 0 09/18/2019 0.5 mg Tablet 3 times daily for 31 days. Take 3/4 tab every morning/afternoon/even ing from 09/04 through 10/05. clonazePAM (KLONOPIN) Take 0.5 tablets by 75 tablet 0 10/0510/30/2019 0.5 mg Tablet mouth every morning AND 1 tablet daily (with lunch) AND 1 tablet every evening. Do all this for 30 days. Take 1/2 tab every morning, 3/4 afternoon, 3/4 evening starting until 11/02 metroNIDAZOLE Use 5 gm daily for 5 70 g 0 07/26/2019 0 09/18/2019 (METROGEL) 0.75 % Gel days traZODone (DESYREL) 50 Take 1 tablet by mouth 30 tablet 3 1 08/19/2018 10/12/2019 mg Tablet nightly. DULoxetine (CYMBALTA) Take 1 capsule by 60 capsule 3 019 01/15/2020 60 mg Capsule, Delayed mouth 2 times daily. Release(E.C.)Indicatio ns: Depression, unspecified depression type AIMOVIG AUTOINJECTOR INJECT THE CONTENTS OF 1 mL 5 01/04/2020 140 mg/mL ONE PEN (140MG) Auto-Injector SUBCUTANEOUSLY EVERY 30 DAYS. traMADol (ULTRAM) 50 Take 1 tablet by mouth 21 tablet 0 09/18/2019 mg TabletIndications: 3 times daily as Intercostal muscle needed for Pain. strain, initial encounter diclofenac (VOLTAREN) Use qid prn to right 100 g 3 04/1609/18/2019 1 % Gel chest prn pain SUMAtriptan-Naproxen TAKE ONE TAB AT ONSET 9 tablet 11 04/1612/19/2019 85-500 mg Tablet OF MIGRAINE, MAY REPEAT IN 4 HOURS IF NO BETTER. DO NOT EXCEED 2 TABS IN 24 HOURS OR 2 DAYS PER WEEK. candesartan (ATACAND) Take 1 tablet by mouth 30 tablet 5 10/09/2019 16 mg every evening. TabletIndications: Migraine with aura and without status migrainosus, not intractable fexofenadine-pseudoeph Take 1 tablet by mouth 30 tablet 3 0 04/04/2019 10/10/2019 edrine (COREY-D 24 daily as needed. HOUR) 180-240 mg Tablet Sustained Release 24 hrIndications: Environmental allergies topiramate (TOPAMAX) Take 1 tablet by mouth 90 tablet 3 12/201801/22/2020 200 mg Tablet nightly. baclofen (LIORESAL) 20 Take 0.5 tablets by 270 tablet 3 10/201806/18/2020 mg TabletIndications: mouth 3 times daily as Fibromyalgia, needed. Psoriatic arthritis inhaler, assist 0 06/08/2018 0 devices (COMPACT SPACE CHAMBER MISC) ferrous sulfate 325 mg Take 1 tablet by mouth 7 tablet 0 0 04/04/2016 09/18/2019 (65 mg iron) Tablet, daily. Delayed Release (E.C.) documented as of this encounter Plan of Treatment Upcoming Encounters Date Type Specialty Care Team Description 04/14/2022 Office Visit Neurology Cameron Alves MD [facility] [address], [place] [address] (Wo rk) documented as of this encounter Goals Goal Patient Goal Associated Recent Patient-Stated? Author Type Problems Progress DH Home Medication Patient No Kendrick ridley, Compliance and Facing Kan Restrepo, Understanding Action Plan [facility] Note: Formatting of this note might be d ifferent from the original. Patient's specific desired goal: to have fewer headaches and to use less adjunct / rescue medication Measured by: calendar, frequency of use of adjunct / rescue meds Time-frame to meet goal: 90-150 days documented as of this encounter Procedures Procedure Name Priority Date/Time Associated Comments Diagnosis US TRANSVAGINAL NON Routine 09/07/2019 2:10 PM Abnormal uterin e Results for this OB EST bleeding procedure are i n the results section. documented in this encounter Results US Transvaginal Non OB (09/07/2019 2:10 PM EST) Anatomical Region Laterality Modality Ultrasound Specimen (Source) Anatomical Collection Method Collection Time Re ceived Time Location / / Volume Laterality 09/07/2019 1:36 PM EST Impressions 09/07/2019 2:39 PM EST 1. Anteverted uterus. No fibroids. 2. The central endometrial echo complex is 7 mm which is normal. There is a small subendometrial cyst raising the s uggestion of adenomyosis. 3. The sonographically solid but avascu lar mass contiguous with the right ovary has perhaps increased in size by severa l millimeters since prior recent ultrasound of 07/26/2019, now measuring 2.3 cm in diameter. A poorly defined right adnexal mass was present on a CT scan of 2012. Thus this does not appear to represent an aggressive lesion. It i s also difficult to be certain whether it is ovarian in origin or paraovarian. Th e sonographic appearance could be consistent with an ovarian stromal tumo r such as a fibroma or thecoma. Thank you for letting us participate in the care of this patient. For questions regarding this report, please contact don huerta number below. Electronically signed by: Tushar ochoa [facility] ([phone]), at 2:32 PM ? Tushar Samuels, Staff Physician Electronically Signed Final Report ?? 02:39 pm Narrative 09/07/2019 2:39 PM EST Gynecological Report ? (Signed Final 09/07/2019 02:39 pm) PATIENT INFO: ID #: ? [id number] ?: ??[birth year] (49 yrs) Name: ? LISSETH Stanley SLICER ? Visit Date: 09/07/2019 01:36 pm PERFORMED BY: Performed By: ? Rosalba Reyes RDMS Attending: ?Abril FRANK, Michael De La Cruz Referred By: ?ZOE RASMUSSEN Location: ? [place] SERVICE(S) PROVIDED: ??UTV - Transvaginal - [id number] ?[id number] INDICATIONS: ??paratubal mass seen on recent US ??measured 1.8 cm, some right side ??abdominal pain and abnormal uterine ??bleeding. ??Please re-evaluate size o f mass; ??History of: Abnormal bleeding, Tubes tied TECHNIQUE/SCAN QUALITY: Technique: ?Transducer ID#: [id number] COMPARISON: Prior CT: 09/23/12 ??Prior US: 07/26/19 -------- HISTORY: -------- Age: ?? 49 ------- UTERUS: ------- Uterus: ? Visualized Position: ?? Anteverted Size (cm) ?L: ??7.1 ? W: ?? 4.5 ?H: ??3.9 ENDOMETRIUM: Endometrium: ?Normal appea shira Thickness(mm): ?7.01 Comment: ? Small subendometrial cys t CUL-DE-SAC: A trace amount of free fluid is noted. RIGHT OVARY: Status: ?? Visualized Size (cm) ?L: ??2.9 ? W: ?? 2.5 ?H: ??1.2 Vol (ml): ?4.5 Morphology: ?see below Comment: ? non vascualr mass measur ing 2.3 x 1.5 x 2.0cm, ?abuts right ovary. ? ovarian vs paraovarian LEFT OVARY: Status: ?? Visualized Size (cm) ?L: ??3.8 ? W: ?? 2.4 ?H: ??2.6 Vol (ml): ?12.7 Morphology: ?Normal appearance Procedure Note Tushar Samuels MD - 09/07/2019Format ting of this note might be different from the original. Gynecological Report (Signed Final 08/17 02:39 pm) PATIENT INFO: ID #: [id number] : [birth year] (49 y rs) Name: LISSETH ARAGON Visit Date: 08/17 01:36 pm PERFORMED BY: Performed By: Rosalba Reyes RDMS Attending: Tushar Samuels MD Referred By: ZOE RASMUSSEN Location: [place] SERVICE(S) PROVIDED: UTV - Transvaginal - [id number] INDICATIONS: paratubal mass seen on recent US measured 1.8 cm, some right side abdominal pain and abnormal uterine bleeding. Please re-evaluate size of ma ss; History of: Abnormal bleeding, Tubes ti ed TECHNIQUE/SCAN QUALITY: Technique: Transducer ID#: 30 COMPARISON: Prior CT: 09/23/12 Prior US: 07/26/19 -------- HISTORY: -------- Age: 49 ------- UTERUS: ------- Uterus: Visualized Position: Anteverted Size (cm) L: 7.1 W: 4.5 H: 3.9 ENDOMETRIUM: Endometrium: Normal appearance Thickness(mm): 7.01 Comment: Small subendometrial cyst CUL-DE-SAC: A trace amount of free fluid is noted. RIGHT OVARY: Status: Visualized Size (cm) L: 2.9 W: 2.5 H: 1.2 Vol (ml): 4.5 Morphology: see below Comment: non vascualr mass measuring 2. 3 x 1.5 x 2.0cm, abuts right ovary. ? ovarian vs paraova eugene LEFT OVARY: Status: Visualized Size (cm) L: 3.8 W: 2.4 H: 2.6 Vol (ml): 12.7 Morphology: Normal appearance IMPRESSION 1. Anteverted uterus. No fibroids. 2. The central endometrial echo complex is 7 mm which is normal. There is a small subendometrial cyst raising the s uggestion of adenomyosis. 3. The sonographically solid but avascu lar mass contiguous with the right ovary has perhaps increased in size by severa l millimeters since prior recent ultrasound of 07/26/2019, now measuring 2.3 cm in diameter. A poorly defined right adnexal mass was present on a CT scan of 2012. Thus this does not appear to represent an aggressive lesion. It i s also difficult to be certain whether it is ovarian in origin or paraovarian. Th e sonographic appearance could be consistent with an ovarian stromal tumo r such as a fibroma or thecoma. Thank you for letting us participate in the care of this patient. For questions regarding this report, please contact t bradley number below. Electronically signed by: Tushar ochoa [facility] ([phone]), at 2:32 PM Tushar Samuels, Staff Physician Electronically Signed Final Report 09/07 02:39 pm Zoe Rasmussen MD IMG US PELVIC ORDERABLES documented in this encounter Visit Diagnoses Diagnosis Abnormal uterine bleeding Unspecified disorder of menstruation and other abnormal bleeding from female genital tract documented in this encounter Care Teams Floor Plan Adjuster Relationship Specialty Start Date End Date Lolis Moss MD PCP - General General Internal Medicine 04/15/16 0 [facility] [place] [address] documented as of this encounter
--- OUTSIDE RECORDS SUMMARY | 2022-03-18 11:31 | XMS_ITS | Encounter Summary ---
:1970 Author Organization [place] [address] Care Team Providers Name Role Phone Lolis Moss MD Primary Care Provider Reason for Referral Consultation (Routine) - Closed Specialty Diagnoses / Procedures Referred By Contact Refer red To Contact Obstetrics and Diagnoses Pelvic mass Lolis Moss, [facility] [phone] [place] [address] Referral ID Status Reason Start Date Expiration Date Visits V isits Requested Authorized [id number] Closed Specialty 07/26/2019 07/25/2020 1 1 Service Requested Reason for Visit Reason Comments Follow-up Encounter Details Date Type Department Care Team Description 07/26/2019 Office Visit Internal Medicine at Lolis Moss Pel vance mass (Primary Dx); Karina Gimenez MD Dense breasts; [address] [facility] Screening for breast cancer (Not by Mammogram); [place], [place] Abnormal uterine bleeding (AUB) [phone] [facility] [phone] PRIMARY CARE [place], [place] [address] Social History Tobacco Use Types [...] Sign Reading Time Taken Comments Blood Pressure 130/80 07/26/2019 1:34 PM EST Pulse 84 07/26/2019 1:08 PM EST Temperature 36.5 ??C (97.7 ??F) 07/26/2019 1:08 PM EST Respiratory Rate 16 07/26/2019 1:08 PM EST Oxygen Saturation 98% 07/26/2019 1:08 PM EST Inhaled Oxygen Concentration - - Weight 54.1 kg (119 lb 3.2 oz) 07/26/2019 1:08 PM EST Height 160 cm (5' 2.99) 07/26/2019 1:08 PM EST Body Mass Index 21.12 07/26/2019 1:08 PM EST documented in this encounter Progress Notes Lolis Moss MD - 07/26/2019 1:20 PM EST Follow up weight loss is with her Had breast US and mammo today-- They recommended she be screened with MRI She is having some pain in the low right pelvis After intercourse starts having bleeding again Periods have been irregular Wonders about blood pressure Has not checked at home much Has had some vaginal discharge She is not sure if itchy White Has been tired 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 Looks tired Weight is up 2lbs today A/P 1. We went over her mammogram reports She would like screening MRI 2. Will make a PIT OPERATOR referral to address the paraovarian lesion 3. She did have a lung CT earlier this fall, so has essentially had lung cancer screening 4. We talked about the TALC powder and ovarian cancer 5. Weight loss is stable 6. We talked about OCP for period stabilization, but with blood pressure did not wish to do estrogen. Will try 10 days of provera, will check urine test 7. BP is better on anival, so did not increase the candesartan. Asked her to check and email a few blood pressure readings in. The dose can easily be increased, but would not wish to over treat her 8. PAP raised question of bacteria vaginosis, she has had some discharge, will treat with topical flagyl Will arrange follow up after above And she will let me know if new symptoms Spent this 40 min visit reviewing results, counseling as to implications, and making a plan to move forward documented in this encounter Plan of Treatment Upcoming Encounters Date Type Specialty Care Team Description 04/14/2022 Office Visit Neurology Cameron Alves MD [facility] [address], [place] [address] (Wo rk) Scheduled Referrals Name Type Priority Associated Diagnoses Order S chedule Referral to Ob-Car Dumper Operator Helper Outpatient Referral Routine Pelvic mass Or dered: 07/26/2019 documented as of this encounter Goals Goal Patient Goal Associated Recent Patient-Stated? Author Type Problems Progress DH Home Medication Patient No Kendrick n, Compliance and Facing Kan Restrepo, Understanding Action Plan [facility] Note: Formatting of this note might be d ifferent from the original. Patient's specific desired goal: to have fewer headaches and to use less adjunct / rescue medication Measured by: calendar, frequency of use of adjunct / rescue meds Time-frame to meet goal: 90-150 days documented as of this encounter Procedures Procedure Name Priority Date/Time Associated Diagnosis Comme nts POCT URINE Routine 07/26/2019 2:01 PM Abnormal uterine Resul ts for this EST bleeding (AUB) procedure are in the results section. documented in this encounter Results POCT urine (07/26/2019 2:01 PM EST) [facility] gist Method Time Signature POC Urine HCG Negative Negative - Negative POC Control Internal Controls Acceptable Specimen (Source) Anatomical Collection Method Collection Time Re ceived Time Location / / Volume Laterality 07/26/2019 2:01 PM EST Lolis Moss MD POINT OF CARE TEST ORDERABLE S documented in this encounter Visit Diagnoses Diagnosis Pelvic mass - Primary Abdominal or pelvic swelling, mass or kirit mp, unspecified site Dense breasts Inconclusive mammogram Screening for breast cancer Breast screening, unspecified Abnormal uterine bleeding (AUB) documented in this encounter Care Teams Fire Technician Relationship Specialty Start Date End Date Lolis Moss MD PCP - General General Internal Medicine 04/15/16 [address] [facility] [address] [place] [address] documented as of this encounter
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
--- OUTSIDE RECORDS SUMMARY | 2022-03-18 11:31 | XMS_ITS | Encounter Summary ---
:1970 Author Organization [facility] [place] [address] Care Team Providers Name Role Phone Lolis Moss MD Primary Care Provider Reason for Visit Reason Onset Date Comments Appointment 07/28/2019 6 week Follow up Encounter Details Date Type Department Care Team Description 07/28/2019 Telephone Obstetrics and Joanna Payneva nt (6 week Gynecology at [facility] [place] [address] Social History Tobacco Use Types Packs/Day Years Used Date Former Smoker Cigarettes 0.5 15 Quit: 08/30/19 18 Smokeless Tobacco: Never Used Comments: Started smoking at 45 Alcohol Use Standard Drinks/Week Comments Not Currently 0 (1 standard drink = 0.6 oz pure alcoho l) Sex Assigned at Date Recorded Not on file documented as of this encounter Miscellaneous Notes Telephone Encounter - Penelope Gonzalez - 07/28/2019 9:16 AM EST Message left for patient to call the office to confirm 09/[address] Simmons. TSH order faxed to [place] Telephone Encounter - Joanna Payne - 07/28/2019 8:58 AM EST Caller and relationship to patient (if other than patient): Self Best time to reach caller: Any Message or Reason for Call: Patient was unable to get her labs done while she was here yesterday. Would like the lab orders sent to [facility] so she can get them done there. Also she was told to come back in [address] Simmons. Please call to schedule appt. Appt Needed and Reason: Yes, 6 wk f/u and lab order sent to [place] Provider: Troy documented in this encounter Plan of Treatment Upcoming Encounters Date Type Specialty Care Team Description 04/14/2022 Office Visit Neurology Cameron Alves MD [facility] [address] [place] [address] (Wo rk) documented as of this [...] on filedocumented in this encounter Care Teams Director Of Institutional Sales Relationship Specialty Start Date End Date Lolis Moss MD PCP - General General Internal Medicine 04/15/16 0 [facility] [address] KARINA [place] [address] documented as of this encounter
--- OUTSIDE RECORDS SUMMARY | 2022-03-18 11:31 | XMS_ITS | Encounter Summary ---
:1970 Author Organization [facility] [place] [address] Care Team Providers Name Role Phone Lolis Moss MD Primary Care Provider Encounter Details Date Type Department Care Team Description 09/11/[address] [facility] Nausea and vomiting, intract ability of vomiting not specified, unspecified vomiting type; Appointment [address] Abnormal uterine bleeding; [place], [place] Microhematuria [phone] Social History Tobacco Use Types Packs/Day Years [...] Office Visit Neurology Cameron Alves MD [facility] [address] [place], [place] [address] (Wo rk) documented as of [...] Name Priority Date/Time Associated Diagnosis Comme nts URINALYSIS Routine 09/11/2019 4:05 Results for this MICROSCOPIC EXAM PM EST procedure a re in the results section. URINE HOLD Routine 09/11/2019 4:05 Results for this PM EST procedure are i n the results section. URINALYSIS WITH Routine 09/11/2019 4:05 Microhematuria Results for this REFLEX CULTURE PM EST procedure are in the results section. HC CORTISOL, BLOOD Routine 09/11/2019 3:48 Nausea and vomiting , Results for this PM EST intractability of procedure are in vomiting not the results specified, unspecified secti on. vomiting type HC THYROID Routine 09/11/2019 2:32 Abnormal uterine Results for this STIMULATING HORMONE, PM EST bleeding procedu re are in SERUM the results section. HC CORTISOL, BLOOD Routine 09/11/2019 2:32 Nausea and vomiting , Results for this PM EST intractability of procedure are in vomiting not the results specified, unspecified secti on. vomiting type documented in this encounter Results (ABNORMAL) Urinalysis Microscopic Exam (09/11/2019 4:05 PM EST) P athologist Signature RBC UA 7 (H) 0 - 4 /HPF [facility] WBC UA 4 0 - 5 /HPF [facility] Squam Epith UA 5 (H) <=4 /HPF [facility] Hyaline Cast 7 (H) 0 - 2 /LPF [facility] Specimen (Source) Anatomical Collection Method Collection Time Re ceived Time Location / / Volume Laterality Urine specimen 09/11/2019 4:05 09/11/2019 6:19 obtained by clean PM EST PM EST catch procedure (specimen) Resulting Agency Comment Spec In Lab Lolis Moss MD URINE ORDERABLES Performing Organization Address City/State/[place] [address] Urine Hold (09/11/2019 4:05 PM EST) P athologist Signature Urine Hold Sample in [facility] LABORATORY Specimen Anatomical Collection Method Collection Time Receive d Time (Source) Location / / Volume Laterality Urine specimen Urine / Unknown 09/11/2019 4:05 PM 08/17 6:19 (specimen) EST PM EST Lolis Moss MD URINE ORDERABLES Performing Organization Address City/[facility]/ZIP Code Phon e Number [address] (ABNORMAL) Urinalysis with reflex Culture (09/11/2019 4:05 PM EST) Patholo gist Method Time Signature Glucose UA Negative Negative [facility] mg/dL [facility] Protein UA Negative Negative [facility] mg/dL [facility] Bilirubin UA Negative Negative [facility] mg/dL [facility] Comment: Clinical correlation required for positi ve Urine Bilirubin results as false positive may occur with some drugs and d rug related products. If a false positive is suspected a serum total bili kelly should be considered if clinically indicated. Urobilinogen UA Normal Normal mg/dL [facility] pH UA 6.5 5.0 - 8.0 [facility] Blood UA Negative Negative mg/dL [facility] Ketones UA Trace (A) Negative mg/dL [facility] Nitrite UA Negative Negative [facility] Leukocytes UA Trace (A) Negative mcL [facility] Appearance UA Clear Clear [facility] Spec [place] UA 1.024 1.002 - 1.030 [facility] Color UA Dark Yellow Yellow [facility] Culture Reflexed No [facility] Specimen (Source) Anatomical Collection Method Collection Time Re ceived Time Location / / Volume Laterality Urine specimen 09/11/2019 4:05 09/11/2019 6:19 obtained by clean PM EST PM EST catch procedure (specimen) Resulting Agency Comment Spec In Lab Lolis Moss MD URINE ORDERABLES Performing Organization Address City/[facility]/ZIP Code Phon e Number [address] Cortisol (09/11/2019 3:48 PM EST) P athologist Signature Cortisol 30.2 mcg/dL [facility] Comment: Reference ranges: ??AM (6-10am): ??4.8-19.5 mcg/dL ??PM (4-8pm) : ??2.5-11.9 mcg/dL Specimen Anatomical Collection Method Collection Time Receive d Time (Source) Location / / Volume Laterality Blood specimen 09/11/2019 3:48 PM 020 6:54 (specimen) EST PM EST Resulting Agency Comment Spec In Lab Lolis Moss MD CHEMISTRY ORDERABLES Performing Organization Address City/[facility]/[place] [address] TSH (09/11/2019 2:32 PM EST) P athologist Signature TSH 1.41 0.27 - 4.20 [facility] mcIU/mL [facility] Specimen Anatomical Collection Method Collection Time Receive d Time (Source) Location / / Volume Laterality Blood specimen 09/11/2019 2:32 PM 020 6:55 (specimen) EST PM EST Resulting Agency Comment Spec In Lab Zoe Cortez MD CHEMISTRY ORDERABLES Performing Organization Address City/[facility]/ZIP Code Phon e Number [address] Cortisol (09/11/2019 2:32 PM EST) P athologist Signature Cortisol 7.0 mcg/dL [facility] Comment: Reference ranges: ??AM (6-10am): ??4.8-19.5 mcg/dL ??PM (4-8pm) : ??2.5-11.9 mcg/dL Specimen Anatomical Collection Method Collection Time Receive d Time (Source) Location / / Volume Laterality Blood specimen 09/11/2019 2:32 PM 020 6:55 (specimen) EST PM EST Resulting Agency Comment Spec In Lab Lolis Moss MD CHEMISTRY ORDERABLES Performing Organization Address City/[facility]/[place] [address] documented in this encounter Visit Diagnoses Diagnosis Nausea and vomiting, intractability of v omiting not specified, unspecified vomiting type Abnormal uterine bleeding Unspecified disorder of menstruation and other abnormal bleeding from female genital tract Microhematuria Microscopic hematuria documented in this encounter Care Teams Rouge Presser Relationship Specialty Start Date End Date Lolis Moss MD PCP - General General Internal Medicine 04/15/16 [address] [facility] [address] [place]INA [place] [address] documented as of this encounter
--- OUTSIDE RECORDS SUMMARY | 2022-03-18 11:31 | XMS_ITS | Encounter Summary ---
:1970 [place] [address] Care Team Providers Name Role Phone Lolis Moss MD Primary Care Provider Reason for Visit Reason Onset Date Comments Prior Authorization 11/24/2019 ubrelvy Encounter Details Date Type Department Care Team Description 11/24/2019 Telephone Neurology at [facility] Alves, Cameron Gimenez, Colten ior Authorization [place] FRANK (ubrelvy) [address] [place] [address] [place], [place] [address] Social History Tobacco Use Types [...] Telephone Encounter - Natalee March RN - 11/27/2019 1:06 PM EDT Images from the original note were not included. Telephone Encounter - Natalee March RN - 11/24/2019 2:17 PM EDT Images from the original note were not included. documented in this encounter Plan of Treatment Upcoming Encounters Date Type Specialty Care Team Description 04/14/2022 Office Visit Neurology Cameron Alves MD [facility] [place], [place] [address] (Wo rk) documented as of this encounter Goals Goal Patient Goal Associated Recent Patient-Stated? Author Type Problems Progress DH Home Medication Patient No Kendrick n, Compliance and Facing Kan P, Understanding Action Plan [facility] [...] on filedocumented in this encounter Care Teams Watch Assembly Instructor Relationship Specialty Start Date End Date Lolis Moss MD PCP - General General Internal Medicine 04/15/16 [address] [facility] [address] KARINA [place] [address] documented as of this encounter
--- OUTSIDE RECORDS SUMMARY | 2022-03-18 11:31 | XMS_ITS | Encounter Summary ---
:1970 Author Organization [facility] [place] [address] Care Team Providers Name Role Phone Lolis Moss MD Primary Care Provider Encounter Details Date Type Department Care Team Description 11/09/2019 Orders Only Psychiatry Bobbi Rojas MD [facility] [place] [address] PSYCHIATRY [phone] [place], [place] [address] (Wo rk) Social History Tobacco [...] Alves MD [facility] er [address] [place] [address] (Wo rk) documented as of this encounter Goals Goal Patient Goal Associated Recent Patient-Stated? Author Type Problems Progress DH Home Medication Patient No Kendrick ridley, Compliance and Facing Kan Restrepo, Understanding Action Plan [facility] Note: Formatting of this note might be d ifferent from the original. Patient's specific desired goal: to have fewer headaches and to use less adjunct / rescue medication Measured by: calendar, frequency of use of adjunct / rescue meds Time-frame to meet goal: 90-150 days documented as of this encounter Visit Diagnoses Not on filedocumented in this encounter Care Teams Rn Birthing Relationship Specialty Start Date End Date Lolis Moss MD PCP - General General Internal Medicine 04/15/[address] [facility] [address] KARINA [place] [address] documented as of this encounter
--- OUTSIDE RECORDS SUMMARY | 2022-03-18 11:31 | XMS_ITS | Encounter Summary ---
:1970 Author Organization [place] [address] Care Team Providers Name Role Phone Lolis Moss MD Primary Care Provider Reason for Visit Reason Onset Date Comments Medication Refill 11/06/2019 Encounter Details Date Type Department Care Team Description 11/06/2019 Refill Neurology at [facility] Cameron Alves Mi graine with aura and [place] FRANK without status [address] [place] [address] [address] mendes [phone] [place], [place] [address] (Wo rk) Social History Tobacco [...] Cameron Alves MD [facility] er [address] [place], [place] [address] (Wo rk) documented as of [...] migrainosus documented in this encounter Care Teams Loading Unit Operator Powder Charging Relationship Specialty Start Date End Date Lolis Moss MD PCP - General General Internal Medicine 04/15/16 0 [facility] [place] [address] documented as of this encounter
--- OUTSIDE RECORDS SUMMARY | 2022-03-18 11:31 | XMS_ITS | Encounter Summary ---
:1970 Author Organization [facility] [place] [address] Care Team Providers Name Role Phone Lolis Moss MD Primary Care Provider Reason for Visit Reason Onset Date Comments Questions 07/25/2019 transvag US and mens trual Encounter Details Date Type Department Care Team Description 07/25/2019 Telephone Internal Medicine at [place], Alex Johnson stions (transvag US [address] and menstrual) [address] [place] [address] Social History Tobacco Use Types Packs/Day [...] Telephone Encounter - Linda Jarvis RN - 07/25/2019 5:03 PM EST Called patient and let her know can get test done with period. Also that Dr Moss did get the email but has not read it yet. They can discuss 07/26/19 Telephone Encounter - Lolis Moss MD - 07/25/2019 4:54 PM EST She should be able to get it done Can you also let her know got her myDH this week, have not had a chance to respond as of yet Telephone Encounter - Thien Simssunita Leach - 07/25/2019 4:36 PM EST Message: Lisseth has questions concerning her appointments tomorrow. Patient indicated she has started her period and did not know if this would interfere with her test. Please call Lisseth back to discuss as soon as possible. Ask caller their first and last name and relationship to the patient: patient Best time to call back: any Ok to leave a message: yes Ok to send my- message: no Offered Appointment: n/a MA/Nurse/[place] contacted via: Message: y Call: y Pager: n documented in this encounter Plan of Treatment Upcoming Encounters Date Type Specialty Care Team Description 04/14/2022 Office Visit Neurology Cameron Alves MD [facility] [place], [place] [address] (Wo rk) documented as of [...] on filedocumented in this encounter Care Teams Enrollment Management Director Relationship Specialty Start Date End Date Lolis Moss MD PCP - General General Internal Medicine 04/15/[address] [facility] [address] KARINA SALTER [place] [address] documented as of this encounter
--- OUTSIDE RECORDS SUMMARY | 2022-03-18 11:31 | XMS_ITS | Encounter Summary ---
:1970 Author [place] [address] Care Team Providers Name Role Phone Lolis Moss MD Primary Care Provider Reason for Visit Reason Comments TeleHealth Encounter Details Date Type Department Care Team Description 11/22/2019 Telephone Neurology at [facility] Cameron Alves MD TeleHealth [address] [facility] [place] [address] [place] [address] [phone] (Wo rk) Social History Tobacco Use Types Packs/Day Years Used Date Former Smoker Cigarettes 0.5 15 Quit: 08/30/19 20 Smokeless Tobacco: Never Used Comments: Started smoking at 45 Alcohol Use Standard Drinks/Week Comments Not Currently 0 (1 standard drink = 0.6 oz pure alcoho l) Sex Assigned at Date Recorded Not on file documented as of this encounter Miscellaneous Notes Telephone Encounter - Anca Aceves CCMA - 11/22/2019 1:53 PM EDT Unable to speak with patient to review medications and allergies prior to upcoming tele- appointmentscheduled with Neurology provider. documented in this encounter Plan of Treatment Upcoming Encounters Date Type Specialty Care Team Description 04/14/2022 Office Visit Neurology Cameron Alves MD [facility] [address] [place] [address] (Wo rk) documented as of this [...] on filedocumented in this encounter Care Teams Soldering Machine Operator Relationship Specialty Start Date End Date Lolis Moss MD PCP - General General Internal Medicine 04/15/16 0 [facility] [address] KARINA [place] [address] documented as of this encounter
--- OUTSIDE RECORDS SUMMARY | 2022-03-18 11:31 | XMS_ITS | Encounter Summary ---
:1970 Author Organization [facility] [place] [address] Care Team Providers Name Role Phone Lolis Moss MD Primary Care Provider Reason for Visit Reason Onset Date Comments Other 10/23/2019 Encounter Details Date Type Department Care Team Description 10/23/2019 Telephone Internal Medicine at [facility] Dawn Parada Other [address] [place] [address] Social History Tobacco Use Types Packs/Day Years Used Date Former Smoker Cigarettes 0.5 15 Quit: 08/30/19 20 Smokeless Tobacco: Never Used Comments: Started smoking at 45 Alcohol Use Standard Drinks/Week Comments Not Currently 0 (1 standard drink = 0.6 oz pure alcoho l) Sex Assigned at Date Recorded Not on file documented as of this encounter Miscellaneous Notes Telephone Encounter - Ning Schultz RN - 10/23/2019 1:46 PM EDT Called pt on behalf of Dr Moss to attempt triage. Pt would not disclose any information other than It's something I just want to talk to Dr Moss about. Pt denied that it was an urgent/emergent need. Will forward to Dr Moss. Telephone Encounter - Lolis Moss MD - 10/23/2019 12:45 PM EDT Nurses, can you triage this call? Will be late tonight or maybe even tomorrow before I get a chance to call back Telephone Encounter - Dawn Parada - 10/23/2019 12:15 PM EDT Message: Patient called stating she would like to speak to ONLY Lolis Moss MD Patient didn'twant to state why. Ask caller their first and last name and relationship to the patient: Patient Best time to call back: any Ok to leave a message: yes Ok to send my- message: no Offered Appointment: x MA/Nurse/[place] contacted via: Message: x Call: Pager: documented in this encounter Plan of Treatment Upcoming Encounters Date Type Specialty Care Team Description 04/14/2022 Office Visit Neurology Cameron Alves MD [facility] [place], [place] [address] (Wo rk) documented as of this encounter Goals Goal Patient Goal Associated Recent Patient-Stated? Author Type Problems Progress DH Home Medication Patient No Kendrick n, Compliance and Facing Kan Restrepo, Understanding Action Plan [facility] [...] on filedocumented in this encounter Care Teams Spiral Machine Operator Relationship Specialty Start Date End Date Lolis Moss MD PCP - General General Internal Medicine 04/15/16 [address] [facility] [address] KARINA SALTER [place] [address] documented as of this encounter
--- OUTSIDE RECORDS SUMMARY | 2022-03-18 11:31 | XMS_ITS | Encounter Summary ---
:1970 Author Organization [facility] [place] [address] Care Team Providers Name Role Phone Franko Moss MD Primary Care Provider Encounter Details Date Type Department Care Team Description 07/26/2019 Hospital Encounter Ultrasound at [facility] Franko Moss Hematuria, [facility] MD [place] unspecified type [facility] [address] [phone] [place] [address] Social History Tobacco Use Types Packs/Day Years [...] 11/15 B2, 100 mg daily. TabletIndications: Headache(784.0) traZODone (DESYREL) 50 Take 1 tablet by mouth 30 tablet 3 1 08/19/2018 10/12/2019 mg Tablet nightly. DULoxetine (CYMBALTA) Take 1 capsule by 60 capsule 3 019 01/15/2020 60 mg Capsule, Delayed mouth 2 times daily. Release(E.C.)Indicatio ns: Depression, unspecified depression type clonazePAM (KLONOPIN) Take 0.75 tablets by 76 tablet 0 08/201807/27/2019 0.5 mg Tablet mouth every morning AND 0.75 tablets Daily at Noon AND 1 tablet every evening. Do all this for 31 days. clonazePAM (KLONOPIN) Take 0.75 tablets by 69 tablet 0 08/201908/10/2019 0.5 mg Tablet mouth every morning AND 0.75 tablets Daily at Noon AND 0.75 tablets every evening. AIMOVIG AUTOINJECTOR INJECT THE CONTENTS OF 1 [...] 24 HOURS OR 2 DAYS PER WEEK. SUMAtriptan (IMITREX) 1 tab for severe h/a. 9 tablet 0 06/201907/27/2019 100 mg Tablet May repeat x1 after 2 hours. NTE 200mg in 24h. NTE 2 days per week (all triptans). DO NOT take on same day as treximet candesartan (ATACAND) Take 1 tablet by mouth 30 tablet 5 10/09/2019 16 mg every evening. TabletIndications: Migraine with aura and without status migrainosus, not intractable fexofenadine-pseudoeph Take 1 tablet by mouth 30 tablet 3 0 04/04/2019 10/10/2019 edrine (COREY-D 24 daily as needed. HOUR) 180-240 mg Tablet Sustained Release 24 hrIndications: Environmental allergies ondansetron (ZOFRAN) 8 TAKE 1 TABLET BY MOUTH 20 tablet 4 0 03/20/2019 09/06/2019 mg Tablet TWICE DAILY NEEDED FOR NAUSEA topiramate (TOPAMAX) Take 1 tablet by mouth 90 tablet 3 12/201801/22/2020 200 mg Tablet nightly. baclofen (LIORESAL) 20 Take 0.5 tablets by 270 tablet 3 10/201806/18/2020 mg TabletIndications: mouth 3 times daily as Fibromyalgia, needed. Psoriatic arthritis inhaler, assist 0 06/08/2018 0 devices (COMPACT SPACE CHAMBER MISC) albuterol 90 Inhale 2 puffs into 1 Inhaler 1 06/07/201807/2019 mcg/actuation HFA the lungs every 4 Aerosol Inhaler hours as needed for Wheezing. Use with spacer ferrous sulfate 325 mg Take 1 tablet by mouth 7 tablet 0 0 04/04/2016 09/18/2019 (65 mg iron) Tablet, daily. Delayed Release (E.C.) documented as of this encounter Plan of Treatment Upcoming Encounters Date Type Specialty Care Team Description 04/14/2022 Office Visit Neurology Cameron Alves MD [facility] [address] [place], [place] [address] (Wo rk) documented as of [...] Name Priority Date/Time Associated Diagnosis Comme nts US TRANSVAGINAL NON Routine 07/26/2019 9:09 AM Hematuria, Re sults for this OB EST unspecified type procedure a re in the results section. documented in this encounter Results (ABNORMAL) US Transvaginal Non OB (07/26/2019 9:09 AM EST) Anatomical Region Laterality Modality Ultrasound Specimen (Source) Anatomical Collection Method Collection Time Re ceived Time Location / / Volume Laterality 07/26/2019 8:45 AM EST Impressions 07/26/2019 9:45 AM EST 1. ??Trace amount of fluid within the e ndometrial cavity. Normal 2 mm caliber endometrial stripe. 2. ??Normal uterus and left ovary. 3. ??Right ovary containing two simple cysts and corpus luteum. 4. ??1.8 cm nonvascular paraovarian mas s heterogeneous echotexture, which corresponds in location to a fluid dens ity mass on the comparison CT dated 09/23/2012. The mass has increased in siz e from 2012, when it measured 1.3 cm. While this sonographic appearance is no nspecific, the lesion may represent a hemorrhagic cyst or possibly a devascul arized endometrioma, possibly a complex inclusion cyst. Malignancy is not exclu ded and further evaluation with pelvic MRI is suggested for this unexpected fi nding.. I have personally reviewed the image(s) and the resident's interpretation and agree with the findings, Brigette Guidry at 07/26/2019 9:39 AM Thank you for letting us participate in the care of this patient. For questions regarding this report, please contact t bradley number below. 9 :39 AM ?Brigette Guidry, [facility] Chief Electronically Signed Final Report ?? 09:45 am Narrative 07/26/2019 9:45 AM EST Gynecological Report ?(Signed Final 07/26/2019 09:45 am) PATIENT INFO: ID #: ? [id number] ?: ??[birth year] (49 yrs) Name: ? LISSETH L SLICER ? Visit Date: 07/26/2019 08:45 am PERFORMED BY: Performed By: ? Jessica Green RDMS Attending: ?Chao FRANK, Brigette Sosa Resident: ? Hiren FRANK, Gianni Trinh Referred By: ?FRANKO MOSS Location: ? [place] SERVICE(S) PROVIDED: ??UTV - Transvaginal - [id number] ?[id number] INDICATIONS: ??irregular bleeding, post coital bleed ing TECHNIQUE/SCAN QUALITY: Technique: ?Transducer ID#:[id number] COMPARISON: Prior CT 09/23/12 -------- HISTORY: -------- Age: ?? 49 PREVIOUS PELVIC SURGERY: Tubal ligation, right Cystectomy ------- UTERUS: ------- Uterus: ? Visualized Position: ?? Anteverted Size (cm) ?L: ??7.3 ?W: ? ?3.9 ?H: ??3.4 ENDOMETRIUM: Endometrium: ?Thin Thickness(mm): ?1.8 Intracavitary Fluid: ??Trace amount see n CUL-DE-SAC: A small amount of fluid is noted. RIGHT OVARY: Status: ?? Visualized Size (cm) ?L: ??4.0 ?W: ? ?2.2 ?H: ??1.7 Vol (ml): ?7.8 Size (cm) ?L: ??1.9 ?W: ? ?1.8 ?H: ??1.8 Vol (ml): ?3.2 Comment: ? Two simple cysts and cor pus luteum. 1.8 cm ?nonvascular para-ov saurabh heterogeneous mass. LEFT OVARY: Status: ?? Visualized Size (cm) ?L: ??2.4 ?W: ? ?1.5 ?H: ??1.7 Vol (ml): ?3.3 Morphology: ?Normal appearance Resulting Agency Comment Unexpected Finding Franko Moss MD IMG US PELVIC ORDERABLES documented in this encounter Visit Diagnoses Diagnosis Hematuria, unspecified type documented in this encounter Care Teams Industrial Electrical Engineer Relationship Specialty Start Date End Date Franko Moss MD PCP - General General Internal Medicine 04/15/[address] [facility] [place] [address] documented as of this encounter
--- OUTSIDE RECORDS SUMMARY | 2022-03-18 11:31 | XMS_ITS | Encounter Summary ---
:1970 Author Organization [facility] [place] [address] Care Team Providers Name Role Phone Lolis Moss MD Primary Care Provider Encounter Details Date Type Department Care Team Description 11/05/2019 Orders Only Psychiatry Bobbi Rojas MD [facility] [place] [address] PSYCHIATRY [phone] [place], [place] [address] (Wo rk) Social History Tobacco [...] Office Visit Neurology Cameron Alves MD [facility] [address] [place] [address] (Wo rk) documented as of this encounter Goals Goal Patient Goal Associated Recent Patient-Stated? Author Type Problems Progress DH Home Medication Patient No Kendrick ridley, Compliance and Facing Kan Restrepo, Understanding Action Plan [facility] [...] on filedocumented in this encounter Care Teams Credit Card Analyst Relationship Specialty Start Date End Date Lolis Moss MD PCP - General General Internal Medicine 04/15/[address] [facility] [address] [place] [address] documented as of this encounter
--- OUTSIDE RECORDS SUMMARY | 2022-03-18 11:31 | XMS_ITS | Encounter Summary ---
:1970 Author Organization [facility] [place] [address] Care Team Providers Name Role Phone Lolis Moss MD Primary Care Provider Encounter Details Date Type Department Care Team Description 09/28/2019 Telephone Internal Medicine at [facility] Leah Yoo [address] [place] [address] Social History Tobacco Use Types Packs/Day Years Used Date Former Smoker Cigarettes 0.5 15 Quit: 08/30/19 20 Smokeless Tobacco: Never Used Comments: Started smoking at 45 Alcohol Use Standard Drinks/Week Comments Not Currently 0 (1 standard drink = 0.6 oz pure alcoho l) Sex Assigned at Date Recorded Not on file documented as of this encounter Miscellaneous Notes Telephone Encounter - Leah Yoo - 09/28/2019 11:24 AM EST LVM to reschedule appt from 09/28 documented in this encounter Plan of Treatment Upcoming Encounters Date Type Specialty Care Team Description 04/14/2022 Office Visit Neurology Cameron Alves MD [facility] [address] [place] [address] (Wo rk) documented as of this [...] on filedocumented in this encounter Care Teams Staff Field Engineer Relationship Specialty Start Date End Date Lolis Moss MD PCP - General General Internal Medicine 04/15/[address] [facility] [address] KARINA SALTER [facility] [place] [address] documented as of this encounter
--- OUTSIDE RECORDS SUMMARY | 2022-03-18 11:31 | XMS_ITS | Encounter Summary ---
:1970 Author Organization [facility] [place] [address] Care Team Providers Name Role Phone Lolis Moss MD Primary Care Provider Encounter Details Date Type Department Care Team Description 09/18/2019 Laboratory Appointment Lab at [facility] Pelvic [facility] [place] [address] Social History Tobacco Use Types Packs/Day [...] [facility] [address] [address] (Wo rk) documented as of this encounter Goals Goal Patient Goal Associated Recent Patient-Stated? Author Type Problems Progress Home Medication Patient No Kendrick ridley, Compliance and Facing Kan Restrepo, Understanding Action Plan [facility] [...] Procedure Name Priority Date/Time Associated Comments Diagnosis ABORH RECHECK STATUS Routine 09/18/2019 4:53 PM R esults for this EST procedure are i n the results section. HEMOGRAM Routine 09/18/2019 4:53 PM Pelvic mass Results f or this EST procedure are i n the results section. DIFFERENTIAL, Routine 09/18/2019 4:53 PM Pelvic mass Results for this AUTOMATED EST procedure are i n the results section. HC ANTIBODY Routine 09/18/2019 4:53 PM Pelvic mass DETECTION,CAPTURE-R EST HC CREATININE Routine 09/18/2019 4:53 PM Pelvic mass Results for this EST procedure are i n the results section. ABO/RH TYPING Routine 09/18/2019 4:53 PM Pelvic mass Results for this EST procedure are i n the results section. HC CBC,PLT & AUTO Routine 09/18/2019 4:53 PM Pelvic mass DIFF EST ANTIBODY SCREEN Routine 09/18/2019 4:53 PM Pelvic mass Result s for this EST procedure are i n the results section. HC UREA NITROGEN, Routine 09/18/2019 4:53 PM Pelvic mass Resu lts for this SERUM EST procedure are i n the results section. ELECTROLYTES PANEL Routine 09/18/2019 4:53 PM Pelvic mass Res ults for this EST procedure are i n the results section. documented in this encounter Results ABORH Recheck Status (09/18/2019 4:53 PM EST) [facility] Method Time Signature ABORH Type Completed [facility] LABORATORY Specimen Anatomical Collection Method Collection Time Receive d Time (Source) Location / / Volume Laterality Blood specimen 09/18/2019 4:53 PM 020 4:54 (specimen) EST PM EST Resulting Agency Comment Spec In Lab Polina Raymond MD BLOOD BANK ORDERABLES Performing Organization Address City/State/ZIP Code Phon e Number [facility] [place] [address] Antibody screen (09/18/2019 4:53 PM EST) [facility] Method Time Signature Ab Screen Negative [facility] LABORATORY Expires at 09/25/2019 [facility] [id number] on: [facility] LABORATORY Comment: Corrected from 10/02/19 0:00:00 EST [Unk nown] on 09/20/19 18:02:03 EST by Pari Villeda I.. Specimen Anatomical Collection Method Collection Time Receive d Time (Source) Location / / Volume Laterality Blood specimen 09/18/2019 4:53 PM 020 4:54 (specimen) EST PM EST Resulting Agency Comment Spec In Lab Polina Raymond MD BLOOD BANK ORDERABLES Performing Organization Address City/State/ZIP Code Phon e Number [address] ABO/Rh Typing (09/18/2019 4:53 PM EST) P athologist Signature ABORh Type A Pos [facility] LABORATORY Specimen Anatomical Collection Method Collection Time Receive d Time (Source) Location / / Volume Laterality Blood specimen 09/18/2019 4:53 PM 020 4:54 (specimen) EST PM EST Resulting Agency Comment Spec In Lab Polina Raymond MD BLOOD BANK ORDERABLES Performing Organization Address City/[facility]/[place]IP [place] [address] (ABNORMAL) Differential, Automated (09/18/2019 4:53 PM EST) Patholo gist Method Time Signature Neutrophils % 54.3 % [facility] LABORATORY Neutr Abs (ANC) 4.07 1.70 - [facility] 6.10 [facility] x10(3)/[facility] LABORATORY Lymphocytes % 28.0 % [facility] LABORATORY Lymphocytes Abs 2.1 0.9 - 3.2 [facility] x10(3)/[facility] LABORATORY Monocytes % 6.0 % [facility] LABORATORY Monocyte Abs 0.4 0.3 - 0.9 [facility] x10(3)/[facility] LABORATORY Eosinophils % 10.0 % [facility] LABORATORY Eosinophils Abs 0.8 (H) 0.0 - 0.4 [facility] x10(3)/[facility] LABORATORY Basophils % 1.3 % [facility] LABORATORY Basophils Abs 0.1 0.0 - 0.1 [facility] x10(3)/[facility] LABORATORY Immature Gran % 0.40 % [facility] LABORATORY Comment: Immature granulocytes(IG's)percentage an d absolute count will include metamyelocytes, myelocytes, and promyelo cytes. Blood smears from CBCs yielding IG's will be scanned manually for concor dance. If this scan disagrees with the automated IG or if promyelocytes are not ed, a manual differential will be performed. Rosangela Gran Abs 0.03 0.00 - 0.04 x10(3)/[facility] MAR Y [facility] LABORATORY Specimen Anatomical Collection Method Collection Time Receive d Time (Source) Location / / Volume Laterality Blood specimen 09/18/2019 4:53 PM 020 5:28 (specimen) EST PM EST Resulting Agency Comment Spec In Lab Polina Raymond MD HEMATOLOGY ORDERABLES Performing Organization Address City/State/ZIP Code Phon e Number [place] [phone] (ABNORMAL) Hemogram (09/18/2019 4:53 PM EST) Analysis Performed At Patho logist Time Signature WBC 7.5 4.0 - 9.5 [facility] x10(3)/[facility] LABORATORY RBC 3.73 (L) 4.00 - [facility] [employer] 5.21 [facility] x10(6)/[facility] LABORATORY Hemoglobin 12.1 11.7 - [facility] PINKY 15.5 gm/dL [facility] LABORATORY Hematocrit 36.3 35.7 - [facility] [place] 45.8 % [facility] LABORATORY MCV 97.3 (H) 82.6 - [facility] [place] 94.4 [facility] LABORATORY MCH 32.4 (H) 27.1 - [facility] [place] 32.0 pg [facility] LABORATORY MCHC 33.3 31.7 - [facility] [place] 35.0 gm/dL [facility] LABORATORY Platelets 387 (H) 145 - 357 [facility] x10(3)/[facility] LABORATORY RDWSD 42.8 37.0 - [facility] [place] 46.0 [facility] LABORATORY RDWCV 11.9 11.5 - [facility] [place] 14.1 % [facility] LABORATORY MPV 12.9 7.6 - 12.9 [facility] nRBC % Auto 0.0 % [facility] LABORATORY nRBC Abs Auto 0.000 0.000 - [facility] 0.000 [facility] x10(3)/[facility] LABORATORY Specimen Anatomical Collection Method Collection Time Receive d Time (Source) Location / / Volume Laterality Blood specimen 09/18/2019 4:53 PM 5:28 (specimen) EST PM EST Resulting Agency Comment Spec In Lab Polina Raymond MD HEMATOLOGY ORDERABLES Performing Organization Address City/[facility]/ZIP Code Phon e Number [address] Electrolytes panel (09/18/2019 4:53 PM EST) athologist Signature Sodium 139 135 - 145 [facility] mmol/L [facility] LABORATORY Potassium 3.8 3.5 - 5.0 [facility] mmol/[facility] LAB[facility]ORY Comment: Please note: ??Patients with WBC >100,00 0 may have falsely elevated Potassium levels. ??For accurate Potassium quantif ication in these patients send serum separator tube (gold top) for subsequent determinations. ??Contact the Clinical Chemistry Laboratory if there are any qu estions. Chloride 106 98 - 107 mmol/L [facility] LABORATORY CO2 22 22 - 31 mmol/L [facility] LABORATORY Anion Gap 11 5 - 15 mmol/L [facility] LABORATORY Specimen Anatomical Collection Method Collection Time Receive d Time (Source) Location / / Volume Laterality Blood specimen 09/18/2019 4:53 PM 020 5:28 (specimen) EST PM EST Resulting Agency Comment Spec In Lab Polina Raymond MD CHEMISTRY ORDERABLES Performing Organization Address City/[facility]/ZIP Code Phon e Number [address] BUN (09/18/2019 4:53 PM EST) P athologist Signature BUN 18 8 - 18 [facility] mg/dL [facility] LABORATORY Specimen Anatomical Collection Method Collection Time Receive d Time (Source) Location / / Volume Laterality Blood specimen 09/18/2019 4:53 PM 5:28 (specimen) EST PM EST Resulting Agency Comment Spec In Lab Polina Raymond MD CHEMISTRY ORDERABLES Performing Organization Address City/[facility]/ZIP [place] [address] Creatinine (09/18/2019 4:53 PM EST) P athologist Signature Creat[facility] 0.92 0.70 [facility]/dL [facility] Estimated GFR 74 >=60 [facility] mL/min/1.7 [facility] 3 m?? HOSPITAL LABORATORY Comment: The eGFR was calculated using the CKD-EP I equation. As with all creatinine based estimates of kidney function, eGFR values calculated with the CKD-EPI equation are not accurate in patients wi th acute kidney failure, extremes of body mass or the acutely ill. [email or web address] eGFR 86 >=60 mL/min/1.73 m?? [facility] LABORATORY Comment: The eGFR was calculated using the CKD-EP I equation. As with all creatinine based estimates of kidney function, eGFR values calculated with the CKD-EPI equation are not accurate in patients wi th acute kidney failure, extremes of body mass or the acutely ill. [email or web address] Specimen Anatomical Collection Method Collection Time Receive d Time (Source) Location / / Volume Laterality Blood specimen 09/18/2019 4:53 PM 020 5:28 (specimen) EST PM EST Resulting Agency Comment Spec In Lab Polina Raymond MD CHEMISTRY ORDERABLES Performing Organization Address City/[facility]/ZIP [place] [address] documented in this encounter Visit Diagnoses Diagnosis Pelvic mass Abdominal or pelvic swelling, mass or kirit mp, unspecified site documented in this encounter Care Teams Auto Accessories Installer Relationship Specialty Start Date End Date Lolis Moss MD PCP - General General Internal Medicine 04/15/16 [address] [facility] [place] [address] documented as of this encounter
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
--- OUTSIDE RECORDS SUMMARY | 2022-03-18 11:31 | XMS_ITS | Encounter Summary ---
:1970 Author Organization [facility] [address] Care Team Providers Name Role Phone Lolis Moss MD Primary Care Provider Encounter Details Date Type Department Care Team Description 08/18/2019 Telephone Psychiatry and Behavioral Temitope Willis [place] [phone] Social History Tobacco Use Types Packs/Day [...] Telephone Encounter - Andrea Willis RN - 08/18/2019 10:35 AM EST Spoke with pharmacist regarding quantities of klonopin for recently submitted orders. quantities ordered were incorrect, and pharmacist needed to clarify. For 08/18-09/04 quantity to be dispensed corrected to 43 tabs For 09/04-09/25 quantity to be dispensed corrected to 70 tabs For 2-11/02 quantity to be dispensed corrected to 58 tabs. documented in this encounter Plan of Treatment Upcoming Encounters Date Type Specialty Care Team Description 04/14/2022 Office Visit Neurology Long, Cameron J, MD [facility] [address] [place] [address] (Wo rk) documented as of this encounter Goals Goal Patient Goal Associated Recent Patient-Stated? Author Type Problems Progress DH Home Medication Patient No Kendrick n, Compliance and Facing Kan Restrepo, Understanding Action Plan [facility] Note: Formatting of this note might be d ifferent from the original. Patient's specific desired goal: to have fewer headaches and to use less adjunct / rescue medication Measured by: calendar, frequency of use of adjunct / rescue meds Time-frame to meet goal: 90-150 days documented as of this encounter Visit Diagnoses Not on filedocumented in this encounter Care Teams Evaporator Operator Molasses Relationship Specialty Start Date End Date Lolis Moss MD PCP - General General Internal Medicine 04/15/16 [address] [facility] [address] [facility] [place] [address] documented as of this encounter
--- OUTSIDE RECORDS SUMMARY | 2022-03-18 11:31 | XMS_ITS | Encounter Summary ---
:1970 [place] [address] Care Team Providers Name Role Phone Lolis Moss MD Primary Care Provider Reason for Visit Auth/Cert Specialty Diagnoses / Procedures Referred By Contact Refer red To Contact Diagnoses pelvic mass Procedures PRO LAP, RMV ADNEXAL STRUCTURE LAPAROSCOPY, REMOVAL OF ADNEXA (WRVU 11.35) Referral ID Status Reason Start Date Expiration Date Visits Requ ested Visits Authorized [id number] 1 1 Encounter Details Date Type Department Care Team Description 09/22/2019 Hospital Encounter Same Day Program at [facility] Abnormal finding on Inocencia Angel MD ultrasound [facility] [address] [facility] GYNECOLOGY [place], [place] ONCOLOGY [address] [place], [place] [phone] [id number] Social History Tobacco Use Types Packs/Day Years [...] Sign Reading Time Taken Comments Blood Pressure 110/65 09/22/2019 5:27 PM EST Pulse 65 09/22/2019 5:27 PM EST Temperature 37.8 ??C (100 ??F) 09/22/2019 3:45 PM EST Respiratory Rate 16 09/22/2019 5:27 PM EST Oxygen Saturation 99% 09/22/2019 5:27 PM EST Inhaled Oxygen Concentration - - Weight - - Height - - Body Mass Index - - documented in this encounter Discharge Instructions Patient InstructionsAnahi Cruz MD - 09/22/2019 2:00 PM EST Images from the original note were not included. PATIENT DISCHARGE INSTRUCTIONS Gynecologic Oncology phone number: [phone]. After hours and on weekends please call hospital receiving distribution station operator at [phone] and ask for Gynecologic Oncologist assistant production manager. Call your doctor if you develop: --A fever over 101 degrees --Severe pain --Heavy vaginal bleeding-soaking through a pad an hour --Increasing pain, redness, or discharge at your incision Follow Up: Future Appointments Date Time Provider Department Center 09/28/2019 2:20 PM Lolis Moss MD [facility] [address] 10/03/2019 11:30 AM Cameron Alves MD [facility] [address] 10/23/2019 2:30 PM Bobbi Rojas MD [facility] 5D Behavorial H 10/25/2019 2:00 PM Polina Raymond MD [facility] REPEATER CHIEF 3K [facility] 01/24/2020 1:00 PM Polly Theodore C [facility] HEM ONC [facility] 01/24/2020 1:00 PM D-H STJ CART 1 STJ Hem Off [facility] Activity level: No heavy lifting, pushing or pulling for 6 weeks. Diet: You may resume your regular diet. Be sure you drink plenty of fluids. Bowel Regimen: Please use medhat-colace (senna-S or docusate-senna) 1-2 tablets twice daily for the entire time that you are taking narcotic pain medication to keep your bowel movements soft and regular.You may consider using this post- operatively even if you are not using narcotic pain medication. Youcan increase this to up to 8 tablets a day (and may take 6-12 hours for effect). If you are constipated or have not had a bowel movement in 2 days, you may add in polyethylene glycol (Miralax) 17g (onecapful) 1-2 times daily (may take 1-2 days for effect). If this is ineffective you may add Milk of Magnesia 30mL (2 Tablespoons) daily (may take 30minutes - 6 hours to work). The next step is to use Magnesium Citrate 1 bottle (295mL)- this usually produces a bowel movement in 30 minutes-3 hours. Please call if you have not had a bowel movement in 3-4 days. Driving: Do not drive until you are off of all narcotic medications and you are not feeling pain; usually about 2 weeks. Shower/Bath: Showering is fine. Short baths are okay but you should avoid having any abdominal incision submerged for more than 10-15 minutes for the next 2 weeks. Wound Care: Your incisions are closed with dissolvable stitches and surgical glue. The glue will dissolve on its own over time - do not pick at or rub the glue. The stitches do not need to be removed -they will dissolve on their own. Pain Control: For your post-operative pain please use ibuprofen, acetaminophen, heating pad, and narcotic pain medication (oxycodone) for your pain management. Your goal is to be able to take several short walks every day (increase the duration each day) and to be able to sleep at night. If you are unable to do these things using the ibuprofen and acetaminophen and heating pad then you will need to use the narcotic pain medication (oxycodone) for breakthrough pain. You should be able to use less oxycodone every couple days and require no breakthrough narcotic pain medication in about 3-4 days. 1. Please use ibuprofen (Advil/Motrin) 600mg every 6 hours around the clock (with food) for the next5-7 days. After that, use as needed. 2. Please use acetaminophen (Tylenol) 650mg every 6 hours as needed (or 1000mg every 8 hours as needed). Do not exceed 3000mg of acetaminophen from any source in 24 hours. 3. Please use oxycodone every 4-6 hours as needed for pain that ???breaks through?? the ibuprofen and acetaminophen. Please take your medication exactly as prescribed. Read all instructions that come with your medication. ?? Using narcotic pain medication (such as oxycodone, hydromorphone (Dilaudid), morphine, fentanyl, or tramadol) may cause addiction. While addiction is more common in people with a personal or family history of addiction, it can occur in anyone. ?? Taking more than the prescribed amount of medication or using with alcohol or other drugs can cause you to stop breathing resulting in coma, brain damage, or . ?? Opioids (oxycodone, hydromorphone/Dilaudid, morphine, fentanyl, tramadol) can slow reaction time,cause drowsiness, or cloud judgement. It is unsafe for you to drive or operate heavy machinery whiletaking this medication. ?? Opioids (oxycodone, hydromorphone/Dilaudid, morphine, fentanyl, tramadol) are at risk of being diverted by anyone with access to your home. Opioids should be stored in a safe and secure place, such as a locked cabinet or safe. Unused opioids (oxycodone, hydromorphone/Dilaudid, morphine, fentanyl, tramadol) should be disposed of according to the label or patient information. If there are no specific instructions, medications may be returned to a take-back location or mixed with a small amount of water and an undesirable waste substance such as coffee grounds or cat litter. documented in this encounter Medications at Time [...] 11/15 B2, 100 mg daily. TabletIndications: Headache(784.0) oxyCODONE (Roxicodone) Take 1 tablet by mouth 5 tablet 0 0 09/22/2019 12/12/2019 5 mg Tablet every 4 hours as needed for Pain. ibuprofen Take 1 tablet by mouth 30 tablet 12 09/22/2019 (Advil;Motrin) 600 mg every 6 hours as Tablet needed for Pain. SUMAtriptan (Imitrex) Take one tablet at 9 tablet 0 201912/19/2019 100 mg Tablet onset of migraine, may repeat in 2 hours if needed. No more than 200 mg in 24 hours or 2 days per week. Do not use within 24 hours of treximet. ondansetron (Zofran) 8 TAKE 1 TABLET BY MOUTH 20 tablet 0 0 09/06/2019 11/06/2019 mg Tablet TWICE DAILY NEEDED FOR NAUSEA clonazePAM (KLONOPIN) Take 0.5 tablets by 75 tablet 0 10/0510/30/2019 0.5 mg Tablet mouth every morning AND 1 tablet daily (with lunch) AND 1 tablet every evening. Do all this for 30 days. Take 1/2 tab every morning, 10/17 afternoon, 10/17 evening starting until 11/02 traZODone (DESYREL) 50 Take 1 tablet by mouth 30 tablet 3 1 08/19/2018 10/12/2019 mg Tablet nightly. DULoxetine (CYMBALTA) Take 1 capsule by 60 capsule 3 019 01/15/2020 60 mg Capsule, Delayed mouth 2 times daily. Release(E.C.)Indicatio ns: Depression, unspecified depression type AIMOVIG AUTOINJECTOR INJECT THE CONTENTS OF 1 mL 5 01/04/2020 140 mg/mL ONE PEN (140MG) Auto-Injector SUBCUTANEOUSLY EVERY 30 DAYS. SUMAtriptan-Naproxen TAKE ONE TAB AT ONSET 9 [...] documented as of this encounter H&P Notes Polina Raymond MD - 09/22/2019 1:30 PM EST Inpatient [facility] - Admission Interval Note I have reviewed the pre-procedure H&P completed by Dr. Simmons on 09/07/19. (x) Condition unchanged since H&P originally performed. Subjective: Lisseth Boone is feeling well today. No complaints. Consent for laparoscopic BSO reviewed. She agrees to proceed with surgery as scheduled. She has tolerated tylenol and ibuprofen without issue in the past. She has tolerated opiates in the past. Acute opiate consent and risk assessment performed. Objective: BP 121/81 Pulse 99 Temp 37.5 ??C (99.5 ??F) (Temporal) Resp 16 LMP 09/18/2019 (Exact Date) SpO2 100% Gen: Sitting in bed, appears comfortable CV: Normal rate, regular rhythm, normal S1 and S2, no murmurs / rubs / gallops Resp: Clear to auscultation bilaterally, no wheezes / crackles Abd: Soft, nontender, nondistended Pelvic: Deferred to operating room. Ext: Warm, well perfused, nontender Assessment/Plan: 49 y.o. female presents for planned laparoscopic BSO for adnexal mass. No interval changes in history or physical exam. Will proceed with planned procedure. Abx Ppx: none VTE Ppx: SCDs Anahi Cruz MD PGY-4 09/22/2019 I have seen and examined the patient and reviewed and edited the resident's above history and I agree with the details as written. The assessment and plan were formulated in discussion with me and I agree with them as documented. Polina Raymond MD documented in this encounter Miscellaneous Notes Op Note - Polina Raymond MD - 09/22/2019 3:45 PM EST [facility] Operative Note Patient Name: Lisseth Boone : [id number] MR#: [id number] Case Date: 09/22/2019 Surgeon: Surgeon(s) and Role: * Polina Raymond MD - Primary * Anahi Cruz MD - Resident Preoperative diagnosis: complex right ovarian mass Postoperative diagnosis: right ovary with corpus luteum cyst on frozen section, final pathology pending Procedure(s) (LRB): LAPAROSCOPY, REMOVAL OF ADNEXA (WRVU 11.35) (N/A) Procedures per surgeon: laparoscopic bilateral salpingo-oophorectomy Findings: Exam under anesthesia revealed small anteverted uterus. Laparoscopy revealed normal appearing anteverted uterus. Fallopian tubes and ovaries appeared normal. Few filmy adhesions in the posterior cul-de-sac. Anesthesia: General Estimated Blood Loss: 5 mL UOP: 60 mL IVF: 1000 mL crystalloid Specimens removed during surgery: Order Name Source Comment Collection Info Order Time CYTOPATHOLOGY NON-GYNECOLOGICAL Lap bilateral salpingo opherectomy 09/22/2019 3:08 PM Pertinent clinical data and significant therapy: pelvic mass Clinical impression: pelvic mass Procedure Type: Other (please specify in Comments Field below) Specimen Type: Pelvic wash SPECIMEN TO PATHOLOGY pelvic mass right fallopian tube and ovary biopsy YES, Please perform frozen section 09/22/2019 3:09 PM Number of tissue samples (in container) 1 Time specimen removed from patient: 3:09 PM PATHOLOGY ORDER UPDATE WITH IMPRESSION OF OVARIAN CANCER 09/22/2019 3:11 PM Additional information: Additional Info Enter requested changes: WITH IMPRESSION OF OVARIAN CANCER eD-H Order Id number [id number] SPECIMEN TO PATHOLOGY WITH IMPRESSION OF OVARIAN CANCER LEFT TUBE AND OVARY excision 09/22/2019 3:15 PM Time specimen removed from patient: 3:14 PM Number of tissue samples (in container) 1 SPECIMEN TO PATHOLOGY WITH IMPRESSION OF OVARIAN CANCER FILMY PELVIC ADHESIONS excision 09/22/2019 3:18 PM Time specimen removed from patient: 3:18 PM Number of tissue samples (in container) 1 Drains: turner; removed at end of case Surgical Closure: Primary Closure - skin incision is completely closed without any wires, howard, drains or other devices Disposition: awakened from anesthesia, extubated and taken to the recovery room in a stable condition, having suffered no apparent untoward event. Condition: doing well without problems (Please see the Surgical Encounter Summary for any Implant and Specimen details pertinent to this patient.) HPI/Surgical Indications: Lisseth Boone is a 49 y.o. who presented with small right adnexal mass seen on US which increased slightly in size on interval ultrasound. The patient was counseled on options for repeat ultrasound monitoring or surgical removal and opted for surgical removal with laparoscopic bilateral salpingo-oophorectomy. Patient has a family history of ovarian cancer as well. Risks, benefits, and alternatives were discussed with the patient. The risks discussed included bleeding, infection, and damage to nearby organs. Patient had time to ask questions and consent was signed and placed in the chart. The patient wished to have the procedure. Procedure Description: She was taken to the OR with IV fluid running and ICDs in place. General anesthesia was obtained without difficulty. The patient was placed in the dorsal lithotomy position with Yellofin Stirrups. Examination under anesthesia revealed a small anteverted uterus. The patient was prepared and draped in the usual sterile fashion. A Time Out was performed and all members of the team were in agreement to proceed. A turner catheter was inserted. A speculum was placed into the vagina. The anterior lip of the cervix was grasped with a single tooth tenaculum. The uterus was sounded to 7cm. A uterine manipulator was introduced. Sterile gloves werechanged and attention was then turned to the abdomen. A vertical umbilical incision was made after instillation of 0.5% Marcaine. A Veress needle was used to enter the peritoneal cavity with insufflation at low flow attached with a low opening pressure. A 12mm trocar was inserted into the abdomen. Intra abdominal placement was confirmed with the laparoscope. The pneumoperitoneum was established with CO2 gas to a pressure of 15 mmHg. An intraabdominal survey revealed unremarkable intestinal, hepatic and peritoneal surfaces. The uterus appeared unremarkable. The ovaries were relatively bland in appearance. Within the deep pelvis there were some filmy adhesions consistent with possible prior cystic process. Two 5mm trocars were inserted in the bilateral lower quadrants under direct visualization with laparoscope. Trendelenburg position was obtained to facilitate pelvic exposure. Attention was then turned to the pelvis. Pelvic washings were obtained. The right fallopian tube waselevated away from the pelvic sidewall with an atraumatic grasper. The ureter was clearly identified. The right infundibulopelvic ligament was grasped adjacent to the ovary, and the LigaSure was used to divide the right IP ligament. Further dissection with a LigaSure was used to remove the tube and ovary adjacent to the right uterine cornua. Vascular pedicles were noted to be dry. Laparoscope was removed from the umbilical incision and a 5mm scope was placed in the right sided incision. An endo-catch bag was introduced into the abdomen through the umbilical incision. The specimen was placed in the endo-catch bag and brought to the skin surface and removed. The specimen was sent to pathology for frozen section. Attention was then turned to the left side where the left ureter was clearly identifiedand the fallopian tube and ovary were removed in a similar fashion. Vascular pedicles were again noted to be hemostatic. The left adnexa was removed in a similar fashion and sent for permanent pathology. A second look was taken in the abdomen and all pedicles remained hemostatic. The pelvis was irrigated and drained. Posterior filmy adhesions were removed with the LigaSure and sent for permanent pathology. Two small pieces of free infarcted fat were also removed. The fascia of the umbilical port was closed with 0-Vicryl with the Gerardo Easton. The lower ports were removed. The skin fwas closed with subcuticular 4-0 Vicryl and Dermabond. All instruments were removed from the vagina. The patient tolerated the procedure well. The turner was removed at the end ofthe procedure. Sponge, lap, and needle counts were correct times two. The patient was taken to the Recovery Room instable condition. Dr. Raymond was present and scrubbed for the entire procedure without intervening responsibility. Anahi Cruz MD PGY4 09/22/2019 Infection Bundle used? N/A Polina Bhagat MD, attest that I performed this surgery with the assistance of a resident. I was present and participated in the entire surgery, from start to finish, as the primary and attending surgeon of record. documented in this encounter Plan of Treatment Upcoming Encounters Date Type Specialty Care Team Description 04/14/2022 Office Visit Neurology Cameron Alves MD [address] [facility] [address] [place], [place] [address] (Wo rk) documented [...] Procedure Name Priority Date/Time Associated Comments Diagnosis SPECIMEN TO PATHOLOGY Routine 09/22/2019 3:18 PM Results for this EST procedure are i n the results section. SPECIMEN TO PATHOLOGY Routine 09/22/2019 3:15 PM Results for this EST procedure are i n the results section. SURGICAL PATHOLOGY Routine 09/22/2019 3:09 PM Res ults for this REPORT EST procedure are i n the results section. SPECIMEN TO PATHOLOGY STAT 09/22/2019 3:09 PM Results for this EST procedure are i n the results section. NON-REPEATER CHIEF FINAL REPORT Routine 09/22/2019 3:08 PM R esults for this EST procedure are i n the results section. CYTOPATHOLOGY Routine 09/22/2019 3:08 PM Results for this NON-GYNECOLOGICAL EST procedure are in the results section. LAPAROSCOPY, REMOVAL Yes 09/22/2019 2:15 PM pelvic mass OF ADNEXA (WRVU 11.35) EST POCT URINE Routine 09/22/2019 Results for this procedure are i n the results section. documented in this encounter Results Specimen to Pathology (09/22/2019 3:18 PM EST) Specimen Anatomical Collection Method Collection Time Receive d Time (Source) Location / / Volume Laterality AP Specimen 09/22/2019 3:18 PM 0 3:58 EST PM EST Narrative [facility] - 09/22/2019 3:58 PM EST Specimen requisition ordered. ??Separate Pathology report to follow Resulting Agency Comment Spec In Lab Polina Raymond MD PATHOLOGY/CYTOLOGY ORDERABLE S Performing Organization Address City/State/[place] [address] Specimen to Pathology (09/22/2019 3:15 PM EST) Specimen Anatomical Collection Method Collection Time Receive d Time (Source) Location / / Volume Laterality AP Specimen 09/22/2019 3:15 PM 0 3:58 EST PM EST Narrative [facility] - 09/22/2019 3:58 PM EST Specimen requisition ordered. ??Separate Pathology report to follow Resulting Agency Comment Spec In Lab Polina Raymond MD PATHOLOGY/CYTOLOGY ORDERABLE S Performing Organization Address City/State/[place] [address] [facility] [address] Surgical Pathology Report (09/22/2019 3:09 PM EST) Component Value Ref Test Analysis Performed At [facility] gist Range Method Time Signature Surgical [id number] ? Location: [facility]; A [facility] Report The signing pathologist has (i) examined the relevant preparation(s) for the [facility] specimen(s) and (ii) rendered or confirmed the diagnosis(es) . HOSPITAL LABORATORY . ?Surgic al Pathology DIAGNOSIS A - Right fallopian tube and ovary (salpingo-oophorectomy): ?1. Luteinized follicular cyst. ?2. Benign fallopian tube. B - Left fallopian tube and ovary (salpingo-oophorectomy): ?1. Hemorrhagic lutein cyst. ?2. Benign fallopian tube and paratubal cysts. ?3. Adhesed surface mesothelial inclusion cyst. C - Filmy pelvic adhesion: ?1. Mesothelial inclusion cyst (peritoneal cyst). ?2. Infarcted, calcified appendix epiploica. CR-0 Electronically signed by: ??Ramakrishna Hopkins MD Verified: ??10/02/2019 ?Pathologist Performed at: ??-[facility] Dept. of Pathology, [place], [place] CLINICAL INFORMATION Specimen Submitted: A - Right fallopian tube and ovary for frozen section B - Left tube and ovary C - Filmy pelvic adhesion Clinical History and Diagnosis: Pelvic mass SPECIMEN PROCESSING A - Labeled/Fixative: Right fallopian tube and ovary, fresh. Quantity/Size/Weight: Single, 5.0 x 3.2 x 1.4 cm, 9.0 grams (overall). Tissue Description: Intact, fallopian tube and ovary. RIGHT OVARY ?? Size: 3.5 x 2.0 x 1.5 cm. ?? Outer Surface: White, cerebriform. ?? Cut Surface: With a 1.0 cm pink nodule. Right Fallopian Tube: 6.0 x 1.0 x 0.6 cm, fimbriated. Sections/Processing: The following tissue is submitted for f rozen section: Gaming Worker nodule. Gaming Worker sections in 7 cassettes as follows: ?A1: Residual frozen tissue ?A2-A4: Fallopian tube entirely submitted ?A5-A7: Gaming Worker ovarian stromal cross-section B - Labeled/Fixative: Left tube and ovary, fresh. Quantity/Size/Weight: Single, 5.1 x 3.5 x 1.4 cm, 12.0 grams (overall). Tissue Description: Intact, fallopian tube with attached ova ry. LEFT OVARY ?? Size: 4.2 x 2.3 x 1.3 cm. ?? Outer Surface: White, cerebriform. ?? Cut Surface: Unremarkable. . SPECIMEN PROCESSING Left Fallopian Tube: 3.5 x 2 .1 x 0.6 cm, fimbriated, with a 0.9 cm clear fluid cyst. Gaming Worker sections in 7 cassettes as follows: ?B1-B4: Fallopian tube entirely submitted ?B5-B7: Gaming Worker ovary C - Labeled/Fixative: Filmy pelvic adhesion, fresh. Quantity/Size: Three, 1.8 x 1.0 x 0.8 cm in aggregate. Tissue Description: Three fragments of tissue are submitted. The first two fragments are yellow, lobular, indurated. The second tissue fragment is composed of thin white membran ous tissue. Sections/Processing: Entirely submitted in 1 cassette labele d C1. crj ?Fro adenike Section FROZEN SECTION DIAGNOSIS AFS1 - Right fallopian tube and ovary: ? - Benign ovary with cystic corpus luteum ? on technical account representative sections. 09/22/19 15:33/JLD Electronically signed by: ??William FRANK, Haydee Angel Verified: ??09/22/2019 ?Pathologist Performed at: ??-[facility] Dept. of Pathology, [place], [place] This intraoperative consultation should be interpreted as a preliminary diagnosis pending review of the entire specimen and sp ecial studies, if any. Specimen (Source) Anatomical Collection Method Collection Time Re ceived Time Location / / Volume Laterality 09/22/2019 3:09 PM EST Polina Raymond MD PATHOLOGY/CYTOLOGY ORDERABLE S Performing Organization Address [facility]/ZIP Code Phon e Number [address] Specimen to Pathology (09/22/2019 3:09 PM EST) Specimen Anatomical Collection Method Collection Time Receive d Time (Source) Location / / Volume Laterality AP Specimen 09/22/2019 3:09 PM 0 3:09 EST PM EST Narrative [facility] - 09/22/2019 3:09 PM EST Specimen requisition ordered. ??Separate Pathology report to follow Polina Raymond MD PATHOLOGY/CYTOLOGY ORDERABLE S Performing Organization Address City/[facility]/[place] [address] Non-Sulfonator Operator Final Report (09/22/2019 3:08 PM EST) Component Value Ref Test Analysis Performed At [facility] Range Method Time Signature Non-Sulfonator Operator Final [id number] ? Location: [facility]; A [facility] The signing pathologist has (i) examined the relevant preparation(s) for the [facility] specimen(s) and (ii) rendered or confirmed the diagnosis(es) . HOSPITAL LABORATORY . ? No n-Sulfonator Operator Final DIAGNOSIS Negative for Malignancy Electronically signed by: ??Nita FRANK, Garry Gimenez Verified: ??09/26/2019 ?Cytopathologist Performed at: ??-[facility] Dept. of Pathology, [place], [place] DISCUSSION Pelvic wash: Mesothelial cells and leukocytes present. (Cell block was examined.) CLINICAL INFORMATION Specimen Source : Pelvic wash Pertinent Clinical Data and Significant Therapy: Pelvic mass Clinical Impression : Pelvic mass Pertinent Radiologic Findings ??: (not provided) Gross Description: Received ??fresh approximate ly 80 mL total volume of ?? cloudy, colorless fluid. Total Preparation: Liquid-Based Prep 1; Cell Block 1. Specimen (Source) Anatomical Collection Method Collection Time Re ceived Time Location / / Volume Laterality 09/22/2019 3:08 PM EST Polina Raymond MD PATHOLOGY/CYTOLOGY ORDERABLE S Performing Organization Address City/[facility]/ZIP Code Phon e Number [address] Cytopathology Non-Gynecological (09/22/2019 3:08 PM EST) Specimen Anatomical Collection Method Collection Time Receive d Time (Source) Location / / Volume Laterality AP Specimen 09/22/2019 3:08 PM 0 3:58 EST PM EST Narrative [facility] LABORAT ORY - 09/22/2019 3:58 PM EST Specimen requisition ordered. ??Separate Pathology report to follow Resulting Agency Comment Spec In Lab Polina Raymond MD PATHOLOGY/CYTOLOGY ORDERABLE S Performing Organization Address City/[facility]/ZIP Code Phon e Number [address] POCT urine (09/22/2019) [facility] gist Method Time Signature POC Urine HCG Negative Negative - Negative POC Control Internal Controls Acceptable Specimen (Source) Anatomical Location Collection Method / Collectio n Time Received Time / Laterality Volume 09/22/2019 Polina Raymond MD POINT OF CARE TEST ORDERABLE S documented in this encounter Visit Diagnoses Diagnosis Abnormal finding on ultrasound Other nonspecific (abnormal) findings on radiological and other examinations of body structure documented in this encounter Administered Medications Inactive Administered Medications - up to 3 most recent administrations Medication Order MAR Action Action Date Dose Rate Site acetaminophen (Tylenol) tablet Given 09/22/2019 1:36 PM EST 1,00 0 mg 1,000 mg 1,000 mg, Oral, ONCE, 1 dose, On Wed09/22/19 at 1330, Administer with SIP of H2O only., Day of Surgery (Day of Procedure), Routine acetaminophen (Tylenol) tablet 650 mg Given 09/22/2019 4:44 PM EST 650 mg 650 mg, Oral, EVERY 6 HOURS PRN, Starting on Wed09/22/19 at 1543, Until Wed09/22/19 at 1936, Pain, If multiple pain medications ordered, use acetaminophen first., Routine HYDROmorphone (DILAUDID) injection 0.2-0 .4 mg Given 09/22/2019 4:09 PM EST 0.4 mg 0.2-0.4 mg, Intravenous, EVERY 5 MIN PRN, Starting on Wed09/22/19 at 1552, Until Wed09/22/19 at 1735, Pain, Give 0.2 mg every 5 minutes PRN for mild to moderate pain (1-5) Give 0.4 mg every 5 minutes PRN for moderate to severe pain (6-10). Hold for respiratory rate less than 10 per minute. Maximum dose 4 mg over one hour. If multiple pain medications are ordered, start with hydromorphone or morphine and use fentanyl for breakthrough pain., PACU Recovery, Routine Given 09/22/2019 3:58 PM EST 0.4 mg lactated ringers infusion New Bag 09/22/2019 1:38 PM EST 1,000 mLs 100 mL/hr 1,000 mL, at 100 mL/hr, Intravenous, CONTINUOUS, Starting on Wed09/22/19 at 1330, Until Wed09/22/19 at 1735, Day of Surgery (Day of Procedure) lidocaine (XYLOCAINE) 10 mg/mL (1 %) injection Given 0 09/22/2019 1:30 PM EST 3 mg 3 mg 3 mg (0.3 mL), Subcutaneous, ONCE PRN, 1 dose, Starting on Wed09/22/19 at 1301, Until Wed09/22/19 at 1330, for discomfort with PIV insertion, Day of Surgery (Day of Procedure), Routine oxyCODONE (Roxicodone) tablet 5-10 mg Given 09/22/2019 4:44 PM EST 5 mg 5-10 mg, Oral, EVERY 3 HOURS PRN, Starting on Wed09/22/19 at 1543, Until Wed09/22/19 at 1936, Pain, - If multiple pain medications ordered, use acetaminophen first. - If pain not relieved by acetaminophen first, administer oxycodone. - Initial dose 5 mg. - If pain control not adequate in 60 minutes, give additional 5 mg., Routine phenazopyridine (Pyridium) tablet 200 mg Given 09/22/2019 1:36 PM EST 200 mg 200 mg, Oral, ONCE, On Wed09/22/19 at 1330, 1 dose, Day of Surgery (Day of Procedure) scopolamine Patch Applied 09/22/2019 1:51 PM 1 patch 01 - Ear Behind (TRANSDERM-SCOP) 1 mg over EST (Left) 3 days patch 1 patch 1 patch, Transdermal, ONCE, 1 dose, On Wed09/22/19 at 1415, Day of Surgery (Day of Procedure), Routine documented in this encounter Active and Recently Administered Medications Times are shown in EST. Scheduled Medication Order 09/20/2019 09/21/2019 09/22/2019 acetaminophen (Tylenol) tablet 1,000 mg (COMPLETED) 1336 (Given - Provider: Alvina Perera RN) 1,000 mg, Oral, ONCE, 1 dose, Wed09/22/19 at 1330, Administer with SIP of H2O only., Day of Surgery (Day of Procedure), Routine phenazopyridine (Pyridium) tablet 200 mg (COMPLETED) 1336 (Given - Provider: Alvina Perera RN) 200 mg, Oral, ONCE, 1 dose, Wed09/22/19 a t 1330, Day of Surgery (Day of Procedure), Routine scopolamine (TRANSDERM-SCOP) 1 mg over 3 days patch 1 patch (COM PLETED) 1351 (Patch Applied - Provider: Effie Gonzalez RN) 1 patch, Transdermal, ONCE, 1 dose, Wed09/22/19 at 1415, Day of Surgery (Day of Procedure), Routine Continuous Medication Order 09/20/2019 09/21/2019 09/22/2019 lactated ringers infusion (CANCELED) 1338 (New Bag - Provider: Alvina Perera RN) 1,000 mL, at 100 mL/hr, Intravenous, CON TINUOUS, Starting Wed09/22/19 at 1330, Until Wed09/22/19 at 1735, Day of Surgery (Day of Procedure) lactated ringers infusion 1600 ( Due) 1,000 mL, at 100 mL/hr, Intravenous, CON TINUOUS, Starting Wed09/22/19 at 1600, Until Wed09/22/19 at 1936 PRN Medication Order 09/20/2019 09/21/2019 09/22/2019 acetaminophen (Tylenol) tablet 650 mg 1644 (Given - Provider: Natasha Cheney RN) 650 mg, Oral, EVERY 6 HOURS PRN, Startin g Wed09/22/19 at 1543, Until Wed09/22/19 at 1936, Pain, If multiple pain medications ordered, use acetaminophen first., Routine BUpivacaine (PF) (MARCAINE) 0.5 % (5 mg/mL) injection (CANCELED) 1516 (Given - Provider: Polina Raymond MD) ONCE PRN, Starting Wed09/22/19 at 1516, U ntil Wed09/22/19 at 1936, Intra-Operative (Intra-Procedure), Routine HYDROmorphone (DILAUDID) injection 0.2-0.4 mg (CANCELED) 1558 (Given - Provider: Natasha Cheney RN)1609 (Given - Provider: Natasha Cheney RN) 0.2-0.4 mg, Intravenous, EVERY 5 MIN PRN , Starting Wed09/22/19 at 1552, Until Wed09/22/19 at 1735, Pain, Give 0.2 mg every 5 minutes PRN for mild to moderate pain (1-5) Give 0.4 mg every 5 minutes PRN for moderate to severe pain (6-10). Hold fo r respiratory rate less than 10 per minute. Maximum dose 4 mg over one hour. If multiple pain medications are ordered, start with hydromorphone or morphine and us e fentanyl for breakthrough pain., PACU Recovery, Routine lidocaine (XYLOCAINE) 10 mg/mL (1 %) injection 3 mg (COMPLETED) 1330 (Given - Provider: Alvina Perera RN) 3 mg (0.3 mL), Subcutaneous, ONCE PRN, 1 dose, Starting Wed09/22/19 at 1301, Until Discontinued, for discomfort with PIV insertion, Day of Surgery (Day of Procedure), Routine oxyCODONE (Roxicodone) tablet 5-10 mg 1644 (Given - Provider: Natasha Cheney RN) 5-10 mg, Oral, EVERY 3 HOURS PRN, Starti ng Wed09/22/19 at 1543, Until Wed09/22/19 at 1936, Pain, - If multiple pain medications ordered, use acetaminophen first. - If pain not relieved by acetaminophen fi rst, administer oxycodone. - Initial dos e 5 mg. - If pain control not adequate in 60 minutes, give additional 5 mg., Routine documented in this encounter Care Teams Eye Dropper Assembler Relationship Specialty Start Date End Date Lolis Moss MD PCP - General General Internal Medicine 04/15/16 0 [facility] [place] [address] documented as of this encounter
--- OUTSIDE RECORDS SUMMARY | 2022-03-18 11:31 | XMS_ITS | Encounter Summary ---
:1970 Author Organization [facility] [place] [address] Care Team Providers Name Role Phone Lolis Moss MD Primary Care Provider Encounter Details Date Type Department Care Team Description 07/26/2019 Hospital Encounter Mammography at [facility] Lolis Moss, Breast mass [facility] [place] [address] [facility] [phone] DR [facility] [place], [place] [address] (Wo rk) Social History Tobacco [...] Visit Neurology Cameron Alves MD [facility] [address] [place], [place] [address] (Wo rk) documented as of this [...] Procedure Name Priority Date/Time Associated Comments Diagnosis MAMMO DIAGNOSTIC CAD Routine 07/26/2019 10:00 AM Breast mass Results for this AND ARI BILATERAL EST procedure are in the results section. documented in this encounter Results Mammo Diagnostic CAD and Ari Bilateral (07/26/2019 10:00 AM EST) Anatomical Region Laterality Modality Breast Bilateral Mammography Specimen (Source) Anatomical Location Collection Method / Collectio n Time Received Time / Laterality Volume Narrative 07/26/2019 11:08 AM EST DIAGNOSTIC MAMMOGRAPHY AND ULTRASOUND OF THE RIGHT BREAST CLINICAL HISTORY: pt found a lump. ??Upp er outer quadrant RIGHT breast TECHNIQUE AND VIEWS OBTAINED: Images acquired with direct digital capt ure Bilateral CC, bilateral MLO, RIGHT tange ntial and LEFT spot CC. ??Tomographic imaging was performed The exam was evalu ated by CAD version 8.3.17.. ??Ultrasound was performed of the Upper Outer Quadran t COMPARISONS: 2011 BREAST DENSITY: The breasts are extremely dense, which l owers the sensitivity of mammography FINDINGS: There is no mammographic abnormality to explain the area of palpable concern in the upper-outer quadrant of the RIGHT br east. An area of questionable asymmetry in the medial LEFT cc effaced with addit ional compression. Ultrasound was performed to the area concern showed onl y normal appearing islands of dense glandular tissue in small cysts. I could not feel distinct mass today INTERPRETATION: BIRADS 2. Benign finding RECOMMENDATION: In view of the patient's extremely dense breasts and family history of breast cancer (mother age 40) I recommend that she is considered for breast MRI screening. As discussed with the patient The [employer] [place] [employer] and [facility] Society of Breast Imaging recommend annual screening beginning at age 40 for the general female population. Screening should continue as long as a polly bland is in good health and is expected to live 10 more years or longer. All women should be familiar with the kn own benefits, limitations, and potential harms linked to breast cancer screening. They also should know how their breasts normally look and feel and report any br east changes to a health care provider right away. Some women, because of their family hist ory, a genetic tendency, or certain other factors, should be screened with M RIs along with mammograms. (The number of women who fall into this category is very small.) The patient and health care provider should discuss the patient hist ory and decide if earlier screening and breast MRI are appropriate. Thank you for letting us participate in the care of this patient. For questions regarding this report, please contact [facility] number below. ? Lolis Moss MD IMG MAMMO ORDERABLES documented in this encounter Visit Diagnoses Diagnosis Breast mass Lump or mass in breast documented in this encounter Care Teams Supervisor [employer]umin[employer]ation Relationship Specialty Start Date End Date Lolis Moss MD PCP - General General Internal Medicine 04/15/16 [address] [facility] [address] [facility] [place] [address] documented as of this encounter
--- OUTSIDE RECORDS SUMMARY | 2022-03-18 11:31 | XMS_ITS | Encounter Summary ---
:1970 Author Organization [facility] [place] [address] Care Team Providers Name Role Phone Lolis Moss MD Primary Care Provider Encounter Details Date Type Department Care Team Description 08/17/2019 Orders Only Psychiatry Bobbi Rojas MD [facility] [place] [address] PSYCHIATRY [phone] [place], [place] [address] (Wo rk) Social History Tobacco [...] Cameron Alves MD [facility] er [address] [place] [address] (Wo rk) documented as of this [...] on filedocumented in this encounter Care Teams Tyre Fitter Relationship Specialty Start Date End Date Lolis Moss MD PCP - General General Internal Medicine 04/15/16 [address] [facility] [address] [place] [place] [address] documented as of this encounter
--- OUTSIDE RECORDS SUMMARY | 2022-03-18 11:31 | XMS_ITS | Encounter Summary ---
:1970 Author Organization [facility] [place] [address] Care Team Providers Name Role Phone Lolis Moss MD Primary Care Provider Encounter Details Date Type Department Care Team Description 07/26/2019 Hospital Encounter Mammography at [facility] Lolis Moss, Breast mass [facility] [place] [address] [facility] [phone] [address] [facility] [place], [place] [address] (Wo rk) Social History Tobacco [...] End Date omeprazole/sodium Take 1 tablet by 0 bicarbonate (ZEGERID mouth 2 times daily. ORAL) MAGNESIUM ORAL Take 1 tablet by 0 mouth daily. UBIDECARENONE (COENZYME Take 1 tablet by 0 Q10 ORAL) mouth daily. multivitamin (THERAGRAN) Take 1 tablet by 0 Tablet mouth daily. riboflavin, vitamin B2, Take 1 tablet by 30 tablet 11 2015 100 mg TabletIndications: mouth daily. Headache(784.0) medroxyPROGESTERone Take 1 tablet by 10 tablet 0 07/26/2019 08/05/2019 (PROVERA) 10 mg Tablet mouth daily for 10 days. metroNIDAZOLE (METROGEL) Use 5 gm daily for 5 70 g 0 1 09/26/2018 09/18/2019 0.75 % Gel days traZODone (DESYREL) 50 mg Take 1 tablet by 30 tablet 3 11/201810/12/2019 Tablet mouth nightly. DULoxetine (CYMBALTA) 60 Take 1 capsule by 60 capsule 3 11/201801/15/2020 mg Capsule, Delayed mouth 2 times daily. Release(E.C.)Indications: Depression, unspecified depression type clonazePAM (KLONOPIN) 0.5 Take 0.75 tablets by 76 tablet 0 07/16/2019 07/27/2019 mg Tablet mouth every morning AND 0.75 tablets Daily at Noon AND 1 tablet every evening. Do all this for 31 days. clonazePAM (KLONOPIN) 0.5 Take 0.75 tablets by 69 tablet 0 08/16/2019 08/10/2019 mg Tablet mouth every morning AND 0.75 tablets Daily at Noon AND 0.75 tablets every evening. [employer] AUTOINJECTOR 140 INJECT THE CONTENTS 1 mL 5 01/04/2020 mg/mL Auto-Injector OF ONE PEN (140MG) SUBCUTANEOUSLY EVERY 30 DAYS. traMADol (ULTRAM) 50 mg Take 1 tablet by 21 tablet 0 201809/18/2019 TabletIndications: mouth 3 times daily Intercostal muscle as needed for Pain. strain, initial encounter diclofenac (VOLTAREN) 1 % Use qid prn to right 100 g 3 05/04/2019 09/18/2019 Gel chest prn pain SUMAtriptan-Naproxen TAKE ONE TAB AT 9 tablet 11 04/26/2019 12/19/2019 85-500 mg Tablet ONSET OF MIGRAINE, MAY REPEAT IN 4 HOURS IF NO BETTER. DO NOT EXCEED 2 TABS IN 24 HOURS OR 2 DAYS PER WEEK. SUMAtriptan (IMITREX) 100 1 tab for severe 9 tablet 0 04/1607/27/2019 mg Tablet h/a. May repeat x1 after 2 hours. NTE 200mg in 24h. NTE 2 days per week (all triptans). DO NOT take on same day as treximet candesartan (ATACAND) 16 Take 1 tablet by 30 tablet 5 04/1510/09/2019 mg TabletIndications: mouth every evening. Migraine with aura and without status migrainosus, not intractable fexofenadine-pseudoephedr Take 1 tablet by 30 tablet 3 0810/10/2019 ine (COREY-D 24 HOUR) mouth daily as 180-240 mg Tablet needed. Sustained Release 24 hrIndications: Environmental allergies ondansetron (ZOFRAN) 8 mg TAKE 1 TABLET BY 20 tablet 4 12/201809/06/2019 Tablet MOUTH TWICE DAILY NEEDED FOR NAUSEA topiramate (TOPAMAX) 200 Take 1 tablet by 90 tablet 3 03/2001/22/2020 mg Tablet mouth nightly. baclofen (LIORESAL) 20 mg Take 0.5 tablets by 270 tablet 3 0 01/16/2019 06/18/2020 TabletIndications: mouth 3 times daily Fibromyalgia, Psoriatic as needed. arthritis inhaler, assist devices 0 06/08/2018 0 09/18/2019 (COMPACT SPACE CHAMBER MISC) albuterol 90 Inhale 2 puffs into 1 Inhaler 1 06/07/201807/2019 mcg/actuation HFA Aerosol the lungs every 4 Inhaler hours as needed for Wheezing. Use with spacer ferrous sulfate 325 mg Take 1 tablet by 7 tablet 0 016 09/18/2019 (65 mg iron) Tablet, mouth daily. Delayed Release (E.C.) documented as of this encounter Plan of Treatment Upcoming Encounters Date Type Specialty Care Team Description 04/14/2022 Office Visit Neurology Cameron Alves MD [facility] [address] [place], [place] [address] (Wo rk) documented [...] Priority Date/Time Associated Diagnosis Comme nts MAMMO BREAST US Routine 07/26/2019 10:16 AM Breast mass Resul ts for this LIMITED RIGHT EST procedure are in the results section. documented in this encounter Results US Breast Limited Right (07/26/2019 10:16 AM EST) Anatomical Region Laterality Modality Breast Right Mammography Specimen (Source) Anatomical Location Collection Method [...] screening. As discussed with the patient The [place] [employer] and Th e Society of Breast Imaging recommend annual screening beginning at age 40 for the general female population. Screening should continue as long as katy bland is in good health and is [...] report, please contact th e number below. ? Lolis Moss MD IMG MAMMO ORDERABLES documented in this encounter Visit Diagnoses Diagnosis Breast mass Lump or mass in breast documented in this encounter Care Teams Take Away Attendant Relationship Specialty Start Date End Date Lolis Moss MD PCP - General General Internal Medicine 04/15/16 0 [facility] [place] [address] documented as of this encounter
--- OUTSIDE RECORDS SUMMARY | 2022-03-18 11:31 | XMS_ITS | Encounter Summary ---
:1970 Author Organization [facility] [place] [address] Care Team Providers Name Role Phone Lolis Moss MD Primary Care Provider Encounter Details Date Type Department Care Team Description 11/23/2019 TH Visit Neurology at [facility] migraine (TeleHealth) Kolton Gimenez MD without aura, with [address] [facility] [place] [address] [place], [place] [id number] [place] [address] status migrainosus [phone] Social History Tobacco Use Types Packs/Day Years Used Date Former Smoker Cigarettes 0.5 15 Quit: 08/30/19 18 Smokeless Tobacco: Never Used Comments: Started smoking at 45 Alcohol Use Standard Drinks/Week Comments Not Currently 0 (1 standard drink = 0.6 oz pure alcoho l) Sex Assigned at Date Recorded Not on file documented as of this encounter Progress Notes Cameron Alves MD - 11/23/2019 3:00 PM EDT [facility] Telephone Office Visit 11-23-19 Last Visit: 03-15-19 Pain today: 2 Interval Headache Hx: Seen in February, & I wrote in part, This patient has recurrent psychosis with bipolar disorder, a chronic pain syndrome, chronic migraine, and has had at least 38 medication trials. She was on mag B2, TPM, and candesartan, and I added CoQ10 and prn TRX??in Apr 2018. She cancelled her appointments on 11/10/17 and 12/22/17.??She has not had Botox.?? Dr. Ivory saw her on 09/07/18 & wondered whether the episodes could be epileptic. He ordered a 24 h EEG (normal) and increased her TPM.?? Her prevention meds in Sep 2018 were TPM, duloxetine, quetiapine, mag, CoQ10, and candesartan. Her prn was TRX. She was getting KAISER 3-5 times per week, using prn TRX. She was getting 12-20 KAISER days per month.0 I prescribed erenumab, first dose Sep 21, 2018. She has Medicare/BCBS insurance. ?? She had a >50% improvement in KAISER days, dropping from 17/month to 3/month as of February, /month recently. Prior Treatments: TCAs ?1. Amitriptyline Neuroleptics ?2. [...] ARBs ?38. Candesartan SSRIs ?39. Sertraline MABs 40. Erenumab ? New Health Issues: See HPI New Family History: no Past Medical History: Diagnosis Date ??? Anxiety [...] BX performed by David Hardy MD at [facility] ENDOSCOPY ??? PRO LAP, RMV ADNEXAL STRUCTURE N/A 09/22/2019 LAPAROSCOPY, REMOVAL OF ADNEXA (WRVU 11.35) performed by Polina Raymond MD at [facility] MAIN OR ??? PRO UPPER GI ENDOSCOPY, BIOPSY N/A 02/11/2016 UPPER GASTROINTESTINAL ENDOSCOPY,WITH BIOPSY SINGLE OR MULTIPLE performed by David Hardy MD at [facility] ??? TUBAL LIGATION Studies to Review: no Current Outpatient Medications on File Prior to Visit Medication Sig Dispense Refill ??? traZODone (Desyrel) 50 mg Tablet Take 1 tablet by mouth nightly 90 tablet 0 ??? traZODone (Desyrel) 50 mg Tablet Take 1 tablet by mouth nightly. 90 tablet 0 ??? candesartan (Atacand) 16 mg Tablet Take 1 tablet by mouth every evening. 90 tablet 0 ??? ondansetron (Zofran) 8 mg Tablet Take 1 tablet by mouth 2 times daily as needed for Nausea. 20 tablet 0 ??? clonazePAM (KlonoPIN) 0.5 mg Tablet Take 1 tablet by mouth 3 times daily as needed for Anxiety for up to 90 days. Use in accordance with previously discussed plan; starting 12/03 270 tablet 0 ??? estrogen, conjugated,-medroxyPROGESTERone (PREMPRO) 0.3-1.5 mg Tablet Take 1 tablet by mouth daily for 30 days. 90 tablet 0 ??? topiramate (Topamax) 25 mg Tablet Take 1 tablet by mouth every morning. 30 tablet 1 ??? Lorrie-D 24 Hour 180-240 mg Tablet Sustained Release 24 hr TAKE 1 TABLET BY MOUTH ONCE DAILY ASNEEDED 90 tablet 1 ??? oxyCODONE (Roxicodone) 5 mg Tablet Take 1 tablet by mouth every 4 hours as needed for Pain. 5 tablet 0 ??? ibuprofen (Advil;Motrin) 600 mg Tablet Take 1 tablet by mouth every 6 hours as needed for Pain. 30 tablet 12 ??? SUMAtriptan (Imitrex) 100 mg Tablet Take one tablet at onset of migraine, may repeat in 2 hours if needed. No more than 200 mg in 24 hours or 2 days per week. Do not use within 24 hours of treximet. 9 tablet 0 ??? DULoxetine (CYMBALTA) 60 mg Capsule, Delayed [...] DAYS PER WEEK. 9 tablet 11 ??? topiramate (TOPAMAX) 200 mg Tablet Take [...] prior to visit. Allergies Allergen Reactions ??? Pollen Extracts REVIEW OF SYSTEMS: See HPI Impression: 1. Chronic migraine without aura, with intractable migraine, so stated, with status migrainosus This patient has had both rizatriptan and sumatriptan, and these are both inadequate even while she is on erenumab. She gets recurrence from the [place], needed an extra prescription in Sep and has often needed extra above #9 per month. She also has wearing off of her erenumab with extra acute need every month. For these reasons, I would like to prescribe Ubrelvy for her, and she can use 50-100 mg as needed, maximum 200 mg in a day, with use targeted at the week that the erenumab wears off. An alternative would be Nurtec or a different MAB. AIMOVIG Follow Up [facility] Head[facility] Patient name: Lisseth Boone Date of : 1970 Migraine Disability Assessment (MIDAS) # of days in the past 3 months 1. Missed work / school because of KAISER N/A 2. Productivity at work / school reduced by > half because of KAISER (do not count days from Q.1) N/A 3. Did not do housework because of KAISER 15 4. Productivity in household work reduced by > half because of KAISER (do not count days from Q.3) 9 5. Missed family / social / leisure activities because of KAISER 0 Total 24 MIDAS grade (use total of Q1 to 5) I: 0-5, little to no disability II: 6-10, mild disability III: 11-20, moderate disability IV: 21+, severe disability A. # of days in the last 3 months with a KAISER (count each day if KAISER lasted > 1 day) 27 B. Average KAISER intensity (0-10) 6 Date you began using Aimovi-6-19 How many [...] medications (triptans, NSAIDs, etc) since starting Aimovig: no Are your abortive medications working better to abort migraines since starting Aimovig: yes Do you think the Aimovig is helping: yes Side effects: moderate constipation, occasional use of docusate + laxative Is the medication wearing off ? yes If it is, when? The last week before injection Is the medication preventing your MENSTRUAL Migraine? N/A had oophorectomy Follow-up: 3 mos I spent 40 minutes in this visit with 30 minutes devoted to telephone patient counseling, in addition to prep time. Angelica Boone gave verbal consent over the phone for this telephone visit. The patient understands that this visit will be billed to their insurance, similar to a clinic visit. Cameron Alves MD documented in this encounter Plan of Treatment Upcoming Encounters Date Type Specialty Care Team Description 04/14/2022 Office Visit Neurology Cameron Alves MD [facility] [place] [address] (Wo rk) documented as of [...] migrainosus documented in this encounter Care Teams Chief Estimator Relationship Specialty Start Date End Date Lolis Moss MD PCP - General General Internal Medicine 04/15/16 0 [facility] [address] [place] [place] [address] documented as of this encounter
--- OUTSIDE RECORDS SUMMARY | 2022-03-18 11:31 | XMS_ITS | Encounter Summary ---
:1970 [place] [address] Care Team Providers Name Role Phone Lolis Moss MD Primary Care Provider Reason for Visit Reason Onset Date Comments Medication Refill 09/11/2019 Encounter Details Date Type Department Care Team Description 09/11/2019 Refill Neurology at [facility] Cameron Alves MD [address] [facility] [place] [address] [place] [address] [phone] (Wo rk) Social History Tobacco Use Types [...] Cameron Alves MD [facility] [address] [place] [address] (Wo rk) documented as of this encounter Goals Goal Patient Goal Associated Recent Patient-Stated? Author Type Problems Progress DH Home Medication Patient No Kednrick n, Compliance and Facing Kan Restrepo, Understanding [...] on filedocumented in this encounter Care Teams Backing In Machine Tender Relationship Specialty Start Date End Date Lolis Moss MD PCP - General General Internal Medicine 04/15/16 0 [facility] [address] [place] [address] documented as of this encounter
--- OUTSIDE RECORDS SUMMARY | 2022-03-18 11:31 | XMS_ITS | Encounter Summary ---
:1970 Author Organization [facility] [place] [address] Care Team Providers Name Role Phone Lolis Moss MD Primary Care Provider Reason for Visit Reason Comments Medication Refill Encounter Details Date Type Department Care Team Description 10/06/2019 Refill Neurology at [facility] Cameron Alves, Migraine with aura and [facility] MD without status Drive [facility] migrainosus, [place] [address] mendes [phone] [place], [place] [address] (Wo rk) Social History Tobacco [...] 04/14/2022 Office Visit Neurology Cameron Alves MD [facility] [place] [address] [place], [place] [address] (Wo rk) documented as of [...] migrainosus documented in this encounter Care Teams Master Machinist Relationship Specialty Start Date End Date oLlis Moss MD PCP - General General Internal Medicine 04/15/16 0 [facility] [address] [place] [address] documented as of this encounter
--- OUTSIDE RECORDS SUMMARY | 2022-03-18 11:31 | XMS_ITS | Encounter Summary ---
:1970 Author Organization [facility] [place] [address] Care Team Providers Name Role Phone Lolis Moss MD Primary Care Provider Reason for Visit Reason Comments Medication Refill Encounter Details Date Type Department Care Team Description 10/12/2019 Refill Psychiatry and Behavioral [place] Bobbi greene MD [facility] at [facility] [place] [address] [place] [address] [phone] (Wo rk) Social History Tobacco Use Types [...] Neurology Cameron Alves MD [facility] [address] [place] [address] (Wo rk) documented as of this encounter Goals Goal Patient Goal Associated Recent Patient-Stated? Author Type Problems Progress DH Home Medication Patient No Kendrick n, Compliance and Facing Kan Restrepo, Understanding Action Plan [facility] Note: Formatting of this note might be d ifferent from the original. Patient's specific desired goal: to have fewer headaches and to use less adjunct / rescue medication Measured by: calendar, frequency of use of adjunct / rescue meds Time-frame to meet goal: 90-150 days documented as of this encounter Visit Diagnoses Not on filedocumented in this encounter Care Teams Harness Rigger Relationship Specialty Start Date End Date Lolis Moss MD PCP - General General Internal Medicine 04/15/16 [address] [facility] [address] [facility] [place] [address] documented as of this encounter
--- OUTSIDE RECORDS SUMMARY | 2022-03-18 11:31 | XMS_ITS | Encounter Summary ---
:1970 Author Organization [facility] [place] [address] Care Team Providers Name Role Phone Lolis Moss MD Primary Care Provider Encounter Details Date Type Department Care Team Description 09/18/2019 Clinical Support Same Day at [facility] [place] [address] Social History Tobacco Use Types Packs/Day Years Used Date Former Smoker Cigarettes 0.5 15 Quit: 08/30/19 18 Smokeless Tobacco: Never Used Comments: Started smoking at 45 Alcohol Use Standard Drinks/Week Comments Not Currently 0 (1 standard drink = 0.6 oz pure alcoho l) Sex Assigned at Date Recorded Not on file documented as of this encounter Progress Notes Bre Bustillos RN - 09/18/2019 4:20 PM EST PAT questionnaire reviewed with patient and Emmanuel, while in Pre Admission testing. Pre-operative instruction booklet reviewed. Patient verbalizes a good understanding of all information reviewed. PLAN: Testing: T&Sc; bloodwork Special medication instructions: none Procedure date: 09/29 Mandi documented in this encounter Plan of Treatment Upcoming Encounters Date Type Specialty Care Team Description 04/14/2022 Office Visit Neurology Cameron Alves MD [facility] [address] [place] [address] (Wo rk) documented as of this encounter Goals Goal Patient Goal Associated Recent Patient-Stated? Author Type Problems Progress DH Home Medication Patient No Kendrick ridley, Compliance and Facing Kan Restrepo, Understanding Action Plan [facility] Note: Formatting of this note might be d ifferent from the original. Patient's specific desired goal: to have fewer headaches and to use less adjunct / rescue medication Measured by: calendar, frequency of use of adjunct / rescue meds Time-frame to meet goal: 90-150 days documented as of this encounter Visit Diagnoses Not on filedocumented in this encounter Care Teams Assembler For Puller Over Hand Relationship Specialty Start Date End Date Lolis Moss MD PCP - General General Internal Medicine 04/15/16 [address] [facility] [place] [address] documented as of this encounter
--- OUTSIDE RECORDS SUMMARY | 2022-03-18 11:31 | XMS_ITS | Encounter Summary ---
:1970 Author Organization [facility] [address] Care Team Providers Name Role Phone Lolis Moss MD Primary Care Provider Reason for Visit Reason Comments Medication Refill Encounter Details Date Type Department Care Team Description 09/05/2019 Refill Neurology at [facility] Cameron Alves MD [facility] [address] [place] [address] [phone] (Wo rk) Social History Tobacco Use Types [...] 04/14/2022 Office Visit Neurology Cameron Alves MD [facility] er [address] [place] [address] (Wo rk) documented [...] on filedocumented in this encounter Care Teams Golf Ball Inspector Relationship Specialty Start Date End Date Lolis Moss MD PCP - General General Internal Medicine 04/15/[address] [facility] [address] [place] [place] [address] documented as of this encounter
--- OUTSIDE RECORDS SUMMARY | 2022-03-18 11:31 | XMS_ITS | Encounter Summary ---
:1970 Author Organization [facility] [place] [address] Care Team Providers Name Role Phone Lolis Moss MD Primary Care Provider Encounter Details Date Type Department Care Team Description 08/17/2019 Orders Only Psychiatry Bobbi Rojas MD [facility] [place] [address] PSYCHIATRY [phone] [place], [place] [address] (Wo rk) Social History Tobacco [...] encounter Progress Notes Bobbi Rojas MD - 08/17/2019 3:45 PM EST Called by Carole in [place] RE cancelling prior Rx- did not work in sytem d/t combination dosing. Wrote separate Rxs. Carole to cancel initial order. documented in this encounter Plan of Treatment Upcoming Encounters Date Type Specialty Care Team Description 04/14/2022 Office Visit Neurology Cameron Alves MD [facility] [address] [place], [place] [address] (Wo rk) documented as of [...] on filedocumented in this encounter Care Teams Comic Book Writer Relationship Specialty Start Date End Date Lolis Moss MD PCP - General General Internal Medicine 04/15/16 0 [facility] [address] [place] [address] documented as of this encounter
--- OUTSIDE RECORDS SUMMARY | 2022-03-18 11:31 | XMS_ITS | Encounter Summary ---
:1970 [place] [address] Care Team Providers Name Role Phone Lolis Moss MD Primary Care Provider Reason for Visit Auth/Cert Specialty Diagnoses / Procedures Referred By Contact Refer red To Contact Diagnoses pelvic mass Procedures PRO LAP, RMV ADNEXAL STRUCTURE LAPAROSCOPY, REMOVAL OF ADNEXA ([facility]U 11.35) Referral ID Status Reason Start Date Expiration Date Visits Requ ested Visits Authorized [id number] 1 1 Encounter Details Date Type Department Care Team Description 09/22/2019 Surgery Main Operating Room Polina Raymond LA PAROSCOPY, REMOVAL OF Inocencia Cosme MD ADNEXA ([facility], INCU 11.35) [facility] [address]old[place] [address] [place] [address] [phone] (Wo rk) Social History Tobacco Use Types [...] Sign Reading Time Taken Comments Blood Pressure 113/80 09/22/2019 3:45 PM EST Pulse 65 09/22/2019 3:45 PM EST Temperature 37.8 ??C (100 ??F) 09/22/2019 3:45 PM EST Respiratory Rate 16 09/22/2019 3:45 PM EST Oxygen Saturation 100% 09/22/2019 3:45 PM EST Inhaled Oxygen Concentration - - Weight - - Height - - Body Mass Index - - documented in this encounter Discharge Instructions Patient InstructionsAnahi Cruz MD - 09/22/2019 2:00 PM EST Images from the original note were not included. PATIENT DISCHARGE INSTRUCTIONS Gynecologic Oncology phone number: [phone]. After hours and on weekends please call hospital wet plant operator at [phone] and ask for Gynecologic Oncologist compensation supervisor. Call your doctor if you develop: --A fever over 101 degrees --Severe pain --Heavy vaginal bleeding-soaking through a pad an hour --Increasing pain, redness, or discharge at your incision Follow Up: Future Appointments Date Time Provider Department Center 09/28/2019 2:20 PM Lolis Moss MD [facility] [address] 10/03/2019 11:30 AM Cameron Alves MD [facility] [address] 10/23/2019 2:30 PM Bobbi Rojas MD [facility] PSY 5D Behavorial H 10/25/2019 2:00 PM Polina Raymond MD [facility] RADAR REPAIRER 3K [facility] 01/24/2020 1:00 PM Polly Theodore LGC [facility] HEM ONC [facility] 01/24/2020 1:00 PM D-H STJ CART 1 J Hem Off [place] [facility] Activity level: No heavy lifting, pushing [...] Take 1/2 tab every morning, 10/17 afternoon, 3/ evening starting until 11/02 traZODone (DESYREL) 50 [...] Take 0.5 tablets by 270 tablet 3 /10/201806/18/2020 mg TabletIndications: mouth 3 times daily as Fibromyalgia, needed. Psoriatic arthritis documented as of this encounter H&P Notes Polina Raymond MD - 09/22/2019 1:30 PM EST Inpatient CLERICAL STOCK INSPECTOR - Admission Interval Note I have reviewed [...] Raymond MD - 09/22/2019 3:45 PM EST [facility] Operative Note Patient Name: Lisseth Boone : [id number] MR#: [id number] Case Date: 09/22/2019 Surgeon: Surgeon(s) and Role: [...] OF OVARIAN CANCER eD-H Order Id number [id number] SPECIMEN TO PATHOLOGY WITH IMPRESSION OF OVARIAN [...] 04/14/2022 Office Visit Neurology Cameron Alves MD [facility] [address], [place] [address] (Wo ) documented as of this encounter Goals Goal [...] procedure are i n the results section. NON-RADAR REPAIRER FINAL REPORT Routine 09/22/2019 3:08 PM R [...] PM 0 3:58 EST PM EST Narrative [facility] - 09/22/2019 3:58 PM EST Specimen requisition ordered. ??Separate Pathology report to follow Resulting Agency Comment Spec In Lab Polina Raymond MD PATHOLOGY/CYTOLOGY ORDERABLE S Performing Organization Address City/State/[place] [address] Specimen to Pathology (09/22/2019 3:15 PM EST) Specimen Anatomical Collection Method Collection Time Receive d Time (Source) Location / / Volume Laterality AP Specimen 09/22/2019 3:15 PM 0 3:58 EST PM EST Narrative [facility] - 09/22/2019 3:58 PM EST Specimen requisition ordered. ??Separate Pathology report to follow Resulting Agency Comment Spec In Lab Polina Raymond MD PATHOLOGY/CYTOLOGY ORDERABLE S Performing Organization Address City/State/[place] [address] Surgical Pathology Report (09/22/2019 3:09 PM EST) Component Value Ref Test Analysis Performed At [facility] gist Range Method Time Signature Surgical [id number] ? Location: [facility]; [facility]; [facility] Report The signing pathologist has (i) examined the relevant preparation(s) for the [facility] specimen(s) and (ii) rendered or confirmed [...] Hopkins MD Verified: ??10/02/2019 ?Pathologist Performed at: ??-[facility] Dept. of Pathology, [place], [place] CLINICAL INFORMATION Specimen Submitted: A - [...] The following tissue is submitted for f emilezen section: Dimensional Integration Engineer nodule. Dimensional Integration Engineer sections in 7 cassettes as follows: ?A1: Residual frozen tissue ?A2-A4: Fallopian tube entirely submitted ?A5-A7: Dimensional Integration Engineer ovarian stromal cross-section B - Labeled/Fixative: Left [...] with a 0.9 cm clear fluid cyst. Dimensional Integration Engineer sections in 7 cassettes as follows: ?B1-B4: Fallopian tube entirely submitted ?B5-B7: Dimensional Integration Engineer ovary C - Labeled/Fixative: Filmy pelvic adhesion, [...] ovary with cystic corpus luteum ? on leather goods sales representative sections. 09/22/19 15:33/JOSE Electronically signed by: ??Haydee Thomas MD Verified: ??09/22/2019 ?Pathologist Performed at: ??-[facility] Dept. of Pathology, [place], [place] This intraoperative consultation should be interpreted as a preliminary diagnosis pending review of the entire specimen and sp ecial studies, if any. Specimen (Source) Anatomical Collection Method Collection Time Re ceived Time Location / / Volume Laterality 09/22/2019 3:09 PM EST Polina Raymond MD PATHOLOGY/CYTOLOGY ORDERABLE S Performing Organization Address [facility]/ZIP Code Phon e Number [address] Specimen to Pathology (09/22/2019 3:09 PM EST) Specimen Anatomical Collection Method Collection Time Receive d Time (Source) Location / / Volume Laterality AP Specimen 09/22/2019 3:09 PM 0 3:09 EST PM EST Narrative [facility] - 09/22/2019 3:09 PM EST Specimen requisition ordered. ??Separate Pathology report to follow Polina Raymond MD PATHOLOGY/CYTOLOGY ORDERABLE S Performing Organization Address City/[facility]/[place] [address] Non-Stock Plan Administrator Final Report (09/22/2019 3:08 PM EST) Component Value Ref Test Analysis Performed At [facility] Range Method Time Signature Non-Stock Plan Administrator Final [id number] ? Location: [facility]; [facility]; [facility] The signing pathologist has (i) examined the relevant preparation(s) for the [facility] specimen(s) and (ii) rendered or confirmed the diagnosis(es) . HOSPITAL LABORATORY . ? No n-Stock Plan Administrator Final DIAGNOSIS Negative for Malignancy Electronically signed by: ??Nita FRANK, Garry Gimenez Verified: ??09/26/2019 ?Cytopathologist Performed at: ??-[facility] Dept. of Pathology, [place], [place] DISCUSSION Pelvic wash: Mesothelial cells and [...] MD PATHOLOGY/CYTOLOGY ORDERABLE S Performing Organization Address City/[facility]/ZIP Code Phon e Number [address] Cytopathology Non-Gynecological (09/22/2019 3:08 PM EST) Specimen Anatomical Collection Method Collection Time Receive d Time (Source) Location / / Volume Laterality AP Specimen 09/22/2019 3:08 PM 0 3:58 EST PM EST Narrative [facility] - 09/22/2019 3:58 PM EST Specimen requisition ordered. ??Separate Pathology report to follow Resulting Agency Comment Spec In Lab Polina Raymond MD PATHOLOGY/CYTOLOGY ORDERABLE S Performing Organization Address City/[facility] Code Phon e Number [address] POCT urine (09/22/2019) [facility] gist Method Time Signature POC Urine HCG Negative Negative - Negative POC Control Internal Controls Acceptable Specimen (Source) Anatomical Location Collection Method / Collectio n Time Received Time / Laterality Volume 09/22/2019 Polina Raymond MD POINT OF CARE TEST ORDERABLE S documented in this encounter Visit Diagnoses Not [...] BUpivacaine (PF) (MARCAINE) 0.5 % (5 mg/mL) Given 09/22/2019 3:1 6 PM EST 7 mLs injection ONCE PRN, Starting on Wed09/22/19 at 1516, Until Wed09/22/19 at 1936, Intra-Operative (Intra-Procedure), Routine HYDROmorphone (DILAUDID) injection 0.2-0 .4 mg [...] injection (CANCELED) 1516 (Given - Provider: Polina Ryamond MD) ONCE PRN, Starting Wed09/22/19 at 1516, [...] mg (COMPLETED) 1330 (Given - Provider: Alvina Perera, RN) 3 mg (0.3 mL), Subcutaneous, ONCE [...] Routine documented in this encounter Care Teams Rn Bone Marrow Transplant Relationship Specialty Start Date End Date Lolis Moss MD PCP - General General Internal Medicine 04/15/16 [address] [facility] [address] [facility] [place] [address] documented as of this encounter
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
--- OUTSIDE RECORDS SUMMARY | 2022-03-18 11:31 | XMS_ITS | Encounter Summary ---
:1970 Author Organization [facility] [place] [address] Care Team Providers Name Role Phone Lolis Moss MD Primary Care Provider Reason for Visit Reason Onset Date Comments Prior Authorization 07/11/2019 Aimovig Encounter Details Date Type Department Care Team Description 07/11/2019 Telephone Pharmacy at [facility] Corinne Kaur Prior Authorization [facility] ([facility] [place] [phone] Social History Tobacco Use Types Packs/Day Years Used Date Former Smoker Cigarettes 0.5 15 Quit: 08/30/19 18 Smokeless Tobacco: Never Used Comments: Started smoking at 45 Alcohol Use Standard Drinks/Week Comments Not Currently 0 (1 standard drink = 0.6 oz pure alcoho l) Sex Assigned at Date Recorded Not on file documented as of this encounter Miscellaneous Notes Telephone Encounter - Corinne Kaur - 07/14/2019 8:12 AM EST [facility], Prior Authorization Approval Medication Name: Aimovig FILLABLE AT [facility]? yes APPROVAL DATES: 07/12/2019-07/11/2020 SPECIFIC INS REQUIREMENT: CASE/REFERENCE # [id number] APPROVAL NOTIFICATION RECEIVED VIA: Fax COPAY: $5.00 COPAY ASSISTANCE NEEDED?: No NOTES: Has copay card on file. Telephone Encounter - Corinne Kaur - 07/11/2019 9:47 AM EST [facility], Medication Prior Authorization Patient: Lisseth Boone Patient : 1970 Patient Address: [address] [place] [phone] (home) Medication: Aimovig Subscriber Insurance: [employer] Fax: Physician: Cameron Alves Sent Via: [facility] Ashby: [id number] Ref/Case/PA#: Medication Strength Frequency Requested: Aimovig 140mg/mL SOAJ Inject 140mg subcutaneously every 30 days. Qty/Day Supply: 09/14 New Start: No Diagnosis & ICD-10 Code: G43.711 documented in this encounter Plan of Treatment Upcoming Encounters Date Type Specialty Care Team Description 04/14/2022 Office Visit Neurology Cameron Alves MD [facility] [address] [place] [address] (Wo rk) documented as of [...] on filedocumented in this encounter Care Teams Machine Cutter Relationship Specialty Start Date End Date Lolis Moss MD PCP - General General Internal Medicine 04/15/[address] [facility] [address] [facility] [place] [address] documented as of this encounter
--- OUTSIDE RECORDS SUMMARY | 2022-03-18 11:31 | XMS_ITS | Encounter Summary ---
:1970 Author Organization [facility] [place] [address] Care Team Providers Name Role Phone Lolis Moss MD Primary Care Provider Reason for Referral Consultation (Routine) - Closed Specialty Diagnoses / Procedures Referred By Contact Refer red To Contact Gynecology Oncology Diagnoses Abnormal finding on ultrasound Esha Simmons MD [facility] [employer] [address] [place] [address] Madiha R [facility]ST[facility] & [facility] [place] [phone] Fax: Referral ID Status Reason Start Date Expiration Date Visits V isits Requested Authorized [id number] Closed Consult, 09/08/2019 09/07/2020 1 1 Test & Treat Reason for Visit Reason Comments Pre-op Exam Encounter Details Date Type Department Care Team Description 09/07/2019 Office Visit Obstetrics and Esha Simmons M D Abnormal finding on ultrasound; Gynecology at [facility] Abnormal uterine bleeding (A UB) [facility] [address] OBSTETRICS & [place], [place] GYNECOLOGY [address] [place] [address] [phone] Social History Tobacco Use Types Packs/Day Years [...] Sign Reading Time Taken Comments Blood Pressure 104/67 09/07/2019 3:01 PM EST Pulse 108 09/07/2019 3:01 PM EST Temperature 37.6 ??C (99.7 ??F) 09/07/2019 3:01 PM EST Respiratory Rate - - Oxygen Saturation 100% 09/07/2019 3:01 PM EST Inhaled Oxygen Concentration - - Weight 51.7 kg (114 lb) 09/07/2019 3:01 PM EST Height 159.4 cm (5' 2.75) 09/07/2019 3:01 PM EST Body Mass Index 20.36 09/07/2019 3:01 PM EST documented in this encounter Progress Notes Esha Simmons MD - 09/07/2019 3:00 PM EST Follow up visit Lisseth Boone is a 49 y.o. perimenopausal woman who presents today with her to review follow up ultrasound findings. (Please see my initial encounter w/ patient on 07/27/19 for further details.) Lisseth reports she continues to have symptoms such as dyspareunia, hot flashes, alternating diarrhea/constipation, nausea, low PO intake, fatigue, and AUB. She has seen her PCP Dr. Moss for many ofthese symptoms, but they have yet to find an underlying etiology. Today we reviewed her ultrasound to evaluate a paratubal mass seen on US 07/26/19. O: Most Recent Vitals: 09/07/19 1501 BP: 104/67 Pulse: (!) 108 Temp: 37.6 ??C (99.7 ??F) SpO2: 100% PainSc: 2 TVUS 09/08/19: INDICATIONS: paratubal mass seen on recent US [...] tumor such as a fibroma or thecoma. EMB on 07/27/19: DIAGNOSIS Endometrial biopsy: ?1. Fragments of benign endometrium with stromal breakdown ? intermixed with blood clot. ?2. No evidence of hyperplasia or endometritis. A+P: Lisseth Boone is a 49 y.o. woman presenting for discussion of follow up imaging after initial finding of 1.8cm paraovarian mass was noted on recent US after she presented to her PCP with abdominal pain and dyspareunia as well as AUB. Repeat imaging 6 weeks later demonstrates nominal increase in size. I reviewed the ultrasound with her and her today. Today we discussed several options moving forward: -Repeat imaging in 6 months. -Proceed with laparoscopic adnexal mass removal, possible BSO given her family hx of breast cancer (mother, age 40) and ovarian cancer (maternal GM). She does have an appt with Genetics in January via Telehealth, which may be useful in determining whether risk reducing surgery would be the best option. -I also offered her a second opinion with our Oncology Rep Specialist Oncology department, given her family history and unusual symptoms. I suspect that there are multiple contributors to her current health problems. I again counseled herthat her imaging is not overtly concerning at this time, with many characteristics of a benign mass,however it is difficult to fully characterize without surgical intervention. Unclear relationship topbrad's pain and other symptoms, especially given it's small size. I discussed that there are risks and benefits to pursuing surgical intervention. Benefits would include definitive dx of the mass. Risks of the surgery would include bleeding, infection, injury to surrounding organs (bladder, bowel, ureter, nerves, vessels), possible laparotomy, blood clot in the legs or lung, and pneumonia. I also made it clear to Lisseth, that surgical intervention may not improve her pain or bleeding pattern, and may lead to additional post- operative pain. Shewould also be put into surgical menopause if her ovaries were removed and would require HRT. Lisseth is strongly considering surgery at this time, but her expresses concerns that she isnot in optimal health and recovery may be difficult for her. I offered them the options outlined above, or the opportunity to think about it further and contact me in a few days, but they desire consultation with the Oncology Rep Specialist Oncology service for a second opinion at this time. Discussed w/ Dr. Kathleen Simmons MD 09/07/19 ?? Kathleen Bonilla MD - 09/07/2019 3:00 PM EST The case was discussed at the time of the visit. The assessment and plan were formulated in discussion with me and I agree with them as documented. I have reviewed the history, physical exam, assessment and plan with Dr. Simmons. I personally reviewed the US images and report. Kathleen Bonilla MD documented in this encounter Plan of Treatment Upcoming Encounters Date Type Specialty Care Team Description 04/14/2022 Office Visit Neurology Cameron Alves MD [facility] [place] [phone] (Wo rk) Scheduled Referrals Name Type Priority Associated Order Schedule Diagnoses Referral to Outpatient Referral Routine Abnormal finding on O rdered: Gynecologic Oncology ultrasound 020 documented as of this encounter Goals [...] as of this encounter Visit Diagnoses Diagnosis Abnormal finding on ultrasound Other nonspecific (abnormal) findings on radiological and other examinations of body structure Abnormal uterine bleeding (AUB) documented in this encounter Care Teams Sewer Hand Relationship Specialty Start Date End Date Lolis Moss MD PCP - General General Internal Medicine 04/15/16 [address] [facility] [address] [facility] [place] [phone] documented as of this encounter
--- OUTSIDE RECORDS SUMMARY | 2022-03-18 11:31 | XMS_ITS | Encounter Summary ---
:1970 Author Organization [place] [address] Care Team Providers Name Role Phone Lolis Moss MD Primary Care Provider Reason for Referral Consultation (Routine) - Closed Specialty Diagnoses / Procedures Referred By Contact Refer red To Contact Gastroenterology Diagnoses Nausea and vomiting, intractability of vomiting not specified, unspecified vomiting type Lolis Moss [facility] Endoscopy 4t Procedures [facility] [address] [place] [address] Referral ID Status Reason Start Date Expiration Date Visits V isits Requested Authorized [id number] Closed Test Only 09/11/2019 09/10/2020 1 1 Reason for Visit Reason Comments Other has it off and on year round , lost a lot of weight, lasting longer than usual-started before christm as Encounter Details Date Type Department Care Team Description 09/11/2019 Office Visit Internal Medicine at Lolis Moss sea and vomiting, intractability of vomiting not specified, unspecified vomiting type; Karina Gimenez MD Diarrhea, unspecified type [address] [facility] [address] [facility] [phone] PRIMARY CARE [place] [id number] Social History Tobacco Use Types Packs/Day Years [...] Sign Reading Time Taken Comments Blood Pressure 117/86 09/11/2019 1:14 PM EST Pulse 94 09/11/2019 1:14 PM EST Temperature 36.8 ??C (98.3 ??F) 09/11/2019 1:14 PM EST Respiratory Rate 17 09/11/2019 1:14 PM EST Oxygen Saturation 98% 09/11/2019 1:14 PM EST Inhaled Oxygen Concentration - - Weight 51.7 kg (114 lb) 09/11/2019 1:14 PM EST with ciara es Height 160.1 cm (5' 3.03) 09/11/2019 1:14 PM EST with shoes Body Mass Index 20.17 09/11/2019 1:14 PM EST documented in this encounter Progress Notes Lolis Moss MD - 09/11/2019 1:20 PM EST Follow up symptoms is with her Stomach She gets hungry Anytime she tries to eat food, tastes good, feels ok, does not get stuck Stomach will gurgle after 30 min--like nothing she had ever had before Then gas and diarrhea Has nausea, comes and goes, not with eating The constipation is now diarrhea If she stays on the shakes bowels not to bad No hurtburn, cramping no other stomach pain She has been doing smoothies Milk substitute, fruit, protein powder, flax seed and oat Drinking gateraide--keeping up with fluids Having sweats at night, feels like a fever but has not checked Has been taking the zofran most every night at bedtime She will go to sleep, she does not want to throw up or vomit Had colonoscopy 2015 She remembers her symptoms being similar It got better--this was the time when she was sick with the delierum Has always had trouble with her gut Similar to what is going on now, but usually settles if a few days. This is the longest it has lasted No unclean water They are on city water at home, not sick They did have water tested No spoiled food She has read the [place] report And is concerned about the malignant potential Will see NURSE onc on Wednesday Has had some migraines Did the shot, had a few imetrix this month Feels weak Spending a lot of time in bed No cough No sore throat Feels short of breath going up and down the stairs--no energy No chest pains Bladder is working ok No periods since Jul 26 Sleeping off and on, sleeping during the day as well, so sleep is disrupted Mood is bad I am sick and tired of being sick and tired She has not taken the job offer, concerned she is not well enough to work PE BP 117/86 (BP Location (NBP): Left arm, Patient Position: Sitting, BP Cuff Sizes: Small Adult (20-26cm)) Pulse 94 Temp 36.8 ??C (98.3 ??F) (Oral) Resp 17 Ht 160.1 cm (5' 3.03) Comment: with shoes Wt 51.7 kg (114 lb) Comment: with shoes SpO2 98% BMI 20.17 kg/m?? Looks tired Tearful at times talking about the ovarian mass, but tells me she is not anxious about it Lungs clear abd soft non tender no HSM no mass A/P 1. She would like to r/o Adisons disease, will do stim test today 2. We went over there GI visit and tests 2016 It would make sense to have her do daily PPI for a few weeks Will refer for EGD given the stenosis from 2016--difficult to know if this made much difference at the tme Will try empiric treatment for SIBO Briefly discussed FODMAP but not clear that will help and a complicated thing to do. Did not wish to try bentyl for the abd cramps Weight has not changed much since the summer 3. She will check her temp and if fevers will need to work that up 4. Will follow up with NURSE, if surgery is planned, from my view point feel that she would be an adequate canadiate Alva Mcgraw RN - 09/11/2019 1:20 PM EST Patient returned to clinic after having initial cortisol lab drawn L Deltoid still red from nicotine patch placement earlier so R Deltoid was used Site prepped with alcohol injection Cosyntropin injection given in R Deltoid No blood noted on drawback Patient tolerated well Patient monitored in clinic for 10 min without ill effect Patient given lab sheet with instructions to have lab drawn in 1 hr ([id number]) Patient will return to lab to have second cortisol lab drawn documented in this encounter Plan of Treatment Upcoming Encounters Date Type Specialty Care Team Description 04/14/2022 Office Visit Neurology Cameron Alves MD [facility] [address], [place] [address] (Wo rk) Scheduled Referrals Name Type Priority Associated Diagnoses Order S chedule Referral to Outpatient Routine Nausea and vomiting, Ordered : Gastroenterology Referral intractability of 2019 vomiting not specified, unspecified vomiting type documented as of this [...] days documented as of this encounter Results Cortisol (09/11/2019 3:48 PM EST) athologist Signature Cortisol 30.2 mcg/dL [facility] Comment: Reference ranges: ??AM (6-10am): ??4.8-19.5 mcg/dL ??PM (4-8pm) : ??2.5-11.9 mcg/dL Specimen Anatomical Collection Method Collection Time Receive d Time (Source) Location / / Volume Laterality Blood specimen 09/11/2019 3:48 PM 020 6:54 (specimen) EST PM EST Resulting Agency Comment Spec In Lab Lolis Moss MD CHEMISTRY ORDERABLES Performing Organization Address City/State/[place] [address] Cortisol (09/11/2019 2:32 PM EST) P athologist Signature Cortisol 7.0 mcg/dL [facility] Comment: Reference ranges: ??AM (6-10am): ??4.8-19.5 mcg/dL ??PM (4-8pm) : ??2.5-11.9 mcg/dL Specimen Anatomical Collection Method Collection Time Receive d Time (Source) Location / / Volume Laterality Blood specimen 09/11/2019 2:32 PM 020 6:55 (specimen) EST PM EST Resulting Agency Comment Spec In Lab Lolis Moss MD CHEMISTRY ORDERABLES Performing Organization Address City/[facility]/[place] [address] documented in this encounter Visit Diagnoses Diagnosis Nausea and vomiting, intractability of v omiting not specified, unspecified vomiting type Diarrhea, unspecified type documented in this encounter Administered Medications Inactive Administered Medications - up to 3 most recent administrations Medication Order MAR Action Action Date Dose Rate Site cosyntropin (CORTROSYN) Given 09/11/2019 2:47 PM 0.25 mg Right Deltoid injection 0.25 mg EST 0.25 mg, Intramuscular, ONCE, 1 dose, On Wed09/11/19 at 1445, Routine documented in this encounter Care Teams Simplex Printer Installer Relationship Specialty Start Date End Date Lolis Moss MD PCP - General General Internal Medicine 04/15/[address] [facility] [address] [place] [address] documented as of this encounter
--- OUTSIDE RECORDS SUMMARY | 2022-03-18 11:31 | XMS_ITS | Encounter Summary ---
:1970 Author Organization [facility] [place] [address] Care Team Providers Name Role Phone Lolis Moss MD Primary Care Provider Reason for Visit Reason Comments Medication Refill Encounter Details Date Type Department Care Team Description 10/09/2019 Refill Internal Medicine at Lolis Moss, Environmental allergies [facility] [address] [place] [address] [facility] PRIMARY CARE [place], [place] [address] (Wo rk) Social History Tobacco [...] Cameron Alves MD [facility] [place], [place] [address] (Wo rk) documented as of [...] as of this encounter Visit Diagnoses Diagnosis Environmental allergies Allergic rhinitis, cause unspecified documented in this encounter Care Teams Detention Worker Relationship Specialty Start Date End Date Lolis Moss MD PCP - General General Internal Medicine 04/15/16 [address] [facility] [address] [place] [place] [address] documented as of this encounter
--- OUTSIDE RECORDS SUMMARY | 2022-03-18 11:31 | XMS_ITS | Encounter Summary ---
:1970 Author Organization [place] [address] Care Team Providers Name Role Phone Travis Torres MD Primary Care Provider Reason for Visit Reason Comments Medication Refill Encounter Details Date Type Department Care Team Description 11/08/2019 Refill Psychiatry and Behavioral Bobbi Hamilton MD [facility] [place] [address] [place] [address] [phone] (Wo rk) Social History Tobacco Use Types [...] Telephone Encounter - Bobbi Rojas MD - 11/09/2019 2:47 PM EDT 90 day supply requested to avoid exposure during COVID 19 pandemic documented in this encounter Plan of Treatment Upcoming Encounters Date Type Specialty Care Team Description 04/14/2022 Office Visit Neurology Cameron Alves MD [facility] [address] [place] [address] (Wo rk) documented as [...] on filedocumented in this encounter Care Teams Bead Wire Insulator Relationship Specialty Start Date End Date Travis Torres MD PCP - General Family Medicine 01/09/22 [address] [place] [address] documented as of this encounter
--- OUTSIDE RECORDS SUMMARY | 2022-03-18 11:32 | XMS_ITS | Encounter Summary ---
:1970 Author Organization [facility] Address [facility] [place] [address] Care Team Providers Name Role Phone Travis Torres MD Primary Care Provider Reason for Visit Reason Onset Date Comments Medication Refill Medication Refill 04/26/2019 Encounter Details Date Type Department Care Team Description 04/13/2019 Refill Neurology at [facility] Joanna Alves, Migraine with aura and [facility] MD without status Drive [facility] migrainosus, [place] [address] [address] mendes [phone] [place], [place] [address] (Wo rk) Social History Tobacco [...] MD [facility] [place] [address] [place] [address] (Wo rk) documented as of [...] migrainosus documented in this encounter Care Teams Tongue Binder Relationship Specialty Start Date End Date Travis Torres MD PCP - General Family Medicine 01/09/22 [address] [place] [address] documented as of this encounter
--- OUTSIDE RECORDS SUMMARY | 2022-03-18 11:32 | XMS_ITS | Encounter Summary ---
:1970 Author Organization [facility] [place] [address] Care Team Providers Name Role Phone Lolis Moss MD Primary Care Provider Reason for Visit Reason Onset Date Comments Medication Refill 04/12/2019 Encounter Details Date Type Department Care Team Description 04/12/2019 Refill Psychiatry and Behavioral Temitope Willis, RN [facility] [place] [address] Social History Tobacco Use Types Packs/Day [...] Neurology Cameron Alves MD [facility] [address] [place] [address] (Wo rk) documented as of this [...] on filedocumented in this encounter Care Teams Political Worker Relationship Specialty Start Date End Date Lolis Moss MD PCP - General General Internal Medicine 04/15/16 [address] [facility] [address] [place] [address] documented as of this encounter
--- OUTSIDE RECORDS SUMMARY | 2022-03-18 11:32 | XMS_ITS | Encounter Summary ---
:1970 Author Organization [facility] [place] [address] Care Team Providers Name Role Phone Lolis Moss MD Primary Care Provider Reason for Visit Reason Comments Medication Management Encounter Details Date Type Department Care Team Description 10/18/2018 Specialty Pharm[place] [facility], [place] [address] Social History Tobacco Use Types Packs/Day Years Used Date Former Smoker Cigarettes 0.5 15 Quit: 08/30/19 18 Smokeless Tobacco: Never Used Comments: Started smoking at 45 Alcohol Use Standard Drinks/Week Comments Not Currently 0 (1 standard drink = 0.6 oz pure alcoho l) Sex Assigned at Date Recorded Not on file documented as of this encounter Progress Notes Kan Shepherd [facility] - 10/18/2018 8:35 AM EST Clinical Management Plan: Refill Specialty Pharmacy Consultation; Kan Shepherd [facility] Comprehensive Medication Management (CMM) Lisseth Boone is a 48 y.o. (1970) female who was contacted in regard to a specialty medication refill reminder. Spoke with patient regarding AIMOVIG. A review of the medication therapy was performed. The medication was refilled as scheduled, and all medication related questions and concerns were addressed. The specialty pharmacy staff will follow up with the patient 5-7 days prior to next refill. Assessment and Recommendations: Title Type of Medication Management: chronic disease management, targeted medication review Referred By: provider Recipient: beneficiary Provider: plan sponsor pharmacist Method of Contact: by telephone Cognitive Ability: good Allergies and Drug intolerance: Allergies Allergen Reactions ??? Pollen Extracts Medication Reconciliation Discrepancies (compared to [facility] med list) - none New medications: no New medical conditions: no New allergies: no Adherence: Medication Adherence Patient reported X missed doses in the last month: 0 Any gaps in refill history greater than 2 weeks in the last 3 months: no Demonstrates understanding of importance of adherence: yes Informant: patient Reliability of informant: reliable Provider-estimated medication adherence level: 90-100% Adherence tools used: directed education Confirmed plan for next specialty medication refill: delivery by pharmacy Most Recent MIDAS: n/a Are you experiencing any side effects from your medications? yes - constipation reported to pharmacytech but pt declined to discuss with pharmacist Pt understands no changes to current drug regimen were made at the appointment and that [facility] is providing recommendations (summary located at top of note) for provider review and follow up. Kan Shepherd RPH 10/18/18 8:43 AM documented in this encounter Plan of Treatment Upcoming Encounters Date Type Specialty Care Team Description 04/14/2022 Office Visit Neurology Cameron Alves MD [facility] [place], [place] [address] (Wo rk) documented as of this encounter Goals Goal Patient Goal Associated Recent Patient-Stated? Author Type Problems Progress DH Home Medication Patient No Kendrick ridley, Compliance and Facing Kan Restrepo Understanding Action Plan [facility] Note: Formatting of this note might be d ifferent from the original. Patient's specific desired goal: to have fewer headaches and to use less adjunct / rescue medication Measured by: calendar, frequency of use of adjunct / rescue meds Time-frame to meet goal: 90-150 days documented as of this encounter Visit Diagnoses Not on filedocumented in this encounter Care Teams Medical Superintendent Relationship Specialty Start Date End Date Lolis Moss MD PCP - General General Internal Medicine 04/15/16 [address] [facility] [address] KARINA [place] [address] documented as of this encounter
--- OUTSIDE RECORDS SUMMARY | 2022-03-18 11:32 | XMS_ITS | Encounter Summary ---
:1970 Author Organization [facility] Address [facility] [place] [address] Care Team Providers Name Role Phone Lolis Moss MD Primary Care Provider Reason for Visit Reason Onset Date Comments Medication Refill 04/14/2019 Encounter Details Date Type Department Care Team Description 04/14/2019 Refill [place] [facility] [place] Alves, Migraine with aura and [facility] MD without status Drive [facility] migrainosus, [place] [address] [address] mendes [phone] [place], [place] [address] (Ankit mckeon) Social History Tobacco Use Types Packs/Day Years [...] Cameron Alves MD [facility] [place] [address] (Wo rk) documented as of [...] migrainosus documented in this encounter Care Teams Supervisor Pipelines Relationship Specialty Start Date End Date Lolis Moss MD PCP - General General Internal Medicine 04/15/16 0 [facility] [place] [address] documented as of this encounter
--- OUTSIDE RECORDS SUMMARY | 2022-03-18 11:32 | XMS_ITS | Encounter Summary ---
:1970 Author Organization [facility] [place] [address] Care Team Providers Name Role Phone Lolis Moss MD Primary Care Provider Reason for Visit Reason Onset Date Comments Medication Refill 10/28/2018 Encounter Details Date Type Department Care Team Description 10/28/2018 Refill Neurology at [facility] Cameron Alves MD [facility] [place] [address] [place] [address] [phone] (Ankit rk) Social History Tobacco Use Types Packs/Day [...] 04/14/2022 Office Visit Neurology Cameron Alves MD [facility] er [address] [place] [address] (Wo rk) documented as of this [...] on filedocumented in this encounter Care Teams Spool Cleaner Hand Relationship Specialty Start Date End Date Lolis Moss MD PCP - General General Internal Medicine 04/15/[address] [facility] [address] [place] [address] documented as of this encounter
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
--- OUTSIDE RECORDS SUMMARY | 2022-03-18 11:32 | XMS_ITS | Encounter Summary ---
:1970 Author Organization [facility] [place] [address] Care Team Providers Name Role Phone Lolis Moss MD Primary Care Provider Reason for Visit Reason Onset Date Comments Triage 04/26/2019 Encounter Details Date Type Department Care Team Description 04/26/2019 [facility] [address] [place] [address] Social History Tobacco Use Types Packs/Day Years Used Date Former Smoker Cigarettes 0.5 15 Quit: 08/30/19 18 Smokeless Tobacco: Never Used Comments: Started smoking at 45 Alcohol Use Standard Drinks/Week Comments Not Currently 0 (1 standard drink = 0.6 oz pure alcoho l) Sex Assigned at Date Recorded Not on file documented as of this encounter Miscellaneous Notes Telephone Encounter - Brigette Santizo RN - 04/26/2019 11:52 AM EDT Pt calling in to discuss R side pain Caller: Pt Patient identified by name and Chief Complaint: R side pain Onset: Last week Objective/Assessment (pain scale): Started back to work last week; lifted tile above her head & pulled muscle in her R side. Still really hurting behind R breast down to side even with just turning doorknobs & turning thecar door Takes baclofen at night usually for fibromyalgia but states this has not helped the side pain at all Also having issues with taking anything for pain like motrin or aleve really upsetting her stomach; does not take tylenol since it doesn't help her Pt requesting something for the pain--would like to be evaluated KAMALA in regards to this. Scheduled pt for appt tomorrow 04/27 @ 4pm. Pt's out of town til Wednesday pt unsure if she can make it butwould like to schedule & call to cancel if she cannot. Also mentioned she has a cold from work with a sore throat & runny nose, nausea & vomiting; denies blood or coffee-grounds in vomit; states having aches but this is baseline for her Unsure if she has fever states last night it felt like she did. Denies chills Plan: Appointment Scheduled tomorrow 04/27 @ 4pm with [facility] Instructions provided per: [facility] Telephone Triage Protocols for Nurses 4th/5th edition 138-141 Does the Patient agree and understand the instructions provided: Yes Note routed to: Angel Feldman For review. Telephone Encounter - Brigette Santizo, RN - 04/26/2019 11:01 AM EDT Returning call to pt to triage R side pain & stomach issues No answer. Left message for pt to call the clinic back at [phone] Telephone Encounter - Darleen Ricardo - 04/26/2019 10:03 AM EDT Message:pt is calling she has pulled a muscle in her right side and would like to talk to a nurse. She also feels that she has a stomach virus. Her is away until Wednesday so she cannot make an appointment until after Wednesday when he returns. Please call her back to discuss Ask caller their first and last name and relationship to the patient: Lisseth Best time to call back: any Ok to leave a message: yes Ok to send my- message: Offered Appointment: no MA/Nurse/[place] contacted via: Message: yes Call: yes Pager: no documented in this encounter Plan of Treatment Upcoming Encounters Date Type Specialty Care Team Description 04/14/2022 Office Visit Neurology Cameron Alves MD [facility] [address] [place] [address] (Wo rk) documented as of [...] on filedocumented in this encounter Care Teams Intranet Support Relationship Specialty Start Date End Date Lolis Moss MD PCP - General General Internal Medicine 04/15/[address] [facility] [address] [place] [address] documented as of this encounter
--- OUTSIDE RECORDS SUMMARY | 2022-03-18 11:32 | XMS_ITS | Encounter Summary ---
:1970 Author Organization [facility] [place] [address] Care Team Providers Name Role Phone Lolis Moss MD Primary Care Provider Encounter Details Date Type Department Care Team Description 07/07/2019 Telephone Internal Medicine at [facility] Nuria Dunn [address] [place] [address] Social History Tobacco Use Types Packs/Day Years Used Date Former Smoker Cigarettes 0.5 15 Quit: 08/30/19 18 Smokeless Tobacco: Never Used Comments: Started smoking at 45 Alcohol Use Standard Drinks/Week Comments Not Currently 0 (1 standard drink = 0.6 oz pure alcoho l) Sex Assigned at Date Recorded Not on file documented as of this encounter Miscellaneous Notes Telephone Encounter - Nuria Dunn - 07/07/2019 8:00 AM EST LVM to help patient get scheduled for OV with PCP on 07/26 any slot Telephone Encounter - Nuria Dunn - 07/07/2019 8:00 AM EST ----- Message from Lolis Moss MD sent at 07/06/2019 6:11 PM EST ----- Regarding: appt sched She would like to sched with me 07/26 Ok to use any open slot that works for her Has other tests that day documented in this encounter Plan of Treatment Upcoming Encounters Date Type Specialty Care Team Description 04/14/2022 Office Visit Neurology Cameron Alves MD [facility] [address] [place] [address] (Wo rk) documented as of [...] on filedocumented in this encounter Care Teams Head Holder Relationship Specialty Start Date End Date Lolis Moss MD PCP - General General Internal Medicine 04/15/16 [address] [facility] [address] [place] [address] documented as of this encounter
--- OUTSIDE RECORDS SUMMARY | 2022-03-18 11:32 | XMS_ITS | Encounter Summary ---
:1970 Author Organization [facility] [place] [address] Care Team Providers Name Role Phone Lolis Moss MD Primary Care Provider Reason for Visit Reason Onset Date Comments Prior Authorization 10/11/2018 Chantix Encounter Details Date Type Department Care Team Description 10/11/2018 Telephone Internal Medicine at [facility] Pr ior Authorization [facility] ALEJANDRA (Chantix) [address] [place] [address] Social History Tobacco Use Types Packs/Day Years Used Date Former Smoker Cigarettes 0.5 15 Quit: 08/30/19 18 Smokeless Tobacco: Never Used Comments: Started smoking at 45 Alcohol Use Standard Drinks/Week Comments Not Currently 0 (1 standard drink = 0.6 oz pure alcoho l) Sex Assigned at Date Recorded Not on file documented as of this encounter Miscellaneous Notes Telephone Encounter - Alice Mason CMA - 10/12/2018 6:08 AM EST Images from the original note were not included. Medication Prior Authorization for Primary [place] [address] Denied: X Case/Reference #: [id number] Additional Information from Insurance carrier: Telephone Encounter - Alice Mason CMA - 10/11/2018 11:34 AM EST Medication Prior Authorization for Primary Care ?? [place] [address] Patient: Lisseth Boone ?? Patient : 1970 ? Subscriber Insurance: [employer] ?? Insurance Phone #: [phone] ?? Sent via: [email or web address] ?? [place]/Fax#: [id number] ?? Physician: Lolis Moss MD ? Return ?? Medication Requested: Chantix Strength: 1 mg Frequency: Take 1 tablet by mouth 2 times daily (with meals). Disp.: 60 Refills: 1 ?? Currently taking: no If yes, how long: ?? Diagnosis for this medication: ready to quit smoking ICD-10 code: F17.200 ?? Prior medications trialed in this patient: Nicoderm 7 mg [id number] Nicoderm 14 mg [id number] Nicoderm 21 mg [id number] documented in this encounter Plan of Treatment Upcoming Encounters Date Type Specialty Care Team Description 04/14/2022 Office Visit Neurology Cameron Alves MD [facility] [place] [id number] (Wo rk) documented as of this encounter Goals Goal Patient Goal Associated Recent Patient-Stated? Author Type Problems Progress Home Medication Patient No Kendrick ridley, Compliance and Facing Kan P, Understanding Action Plan [facility] Note: Formatting of this note might be d ifferent from the original. Patient's specific desired goal: to have fewer headaches and to use less adjunct / rescue medication Measured by: calendar, frequency of use of adjunct / rescue meds Time-frame to meet goal: 90-150 days documented as of this encounter Visit Diagnoses Not on filedocumented in this encounter Care Teams Fresh Meat Grader Relationship Specialty Start Date End Date Lolis Moss MD PCP - General General Internal Medicine 04/15/[address] [facility] [place] [address] documented as of this encounter
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
--- OUTSIDE RECORDS SUMMARY | 2022-03-18 11:32 | XMS_ITS | Encounter Summary ---
:1970 Author Organization [facility] [place] [address] Care Team Providers Name Role Phone Lolis Moss MD Primary Care Provider Encounter Details Date Type Department Care Team Description 01/23/2019 Laboratory Appointment Lab 3L [facility] Abnormal uterine bleeding; [facility] Depression, unspecified [place] [address] Social History Tobacco Use Types Packs/Day Years [...] 04/14/2022 Office Visit Neurology Cameron Alves MD [facility] [place] [address] (Wo rk) documented as of [...] Name Priority Date/Time Associated Diagnosis Comme nts PROLACTIN Routine 01/23/2019 2:54 PM Abnormal uterine Resul ts for this EDT bleeding procedure are i n the results section. HEMOGLOBIN A1C Routine 01/23/2019 2:54 PM Depression, Results for this EDT unspecified procedure are i n depression type the results section. FOLLICLE STIMULATING Routine 01/23/2019 2:54 PM Abnormal uteri ne Results for this HORMONE EDT bleeding procedure are i n the results section. LIPID PANEL (REFLEX Routine 01/23/2019 2:54 PM Depression, Re sults for this DIRECT LDL) EDT unspecified procedure are i n depression type the results section. documented in this encounter Results Lipid Panel (01/23/2019 2:54 PM EDT) athologist Signature Chol, Total 203 mg/dL [facility] Comment: Lower Risk: <200 mg/dL Average Risk: 200-239 mg/dL Higher Risk: >tb=608 mg/dL Triglycerides 177 mg/dL [facility] Comment: Average Risk/Lower Risk: <150 mg/dL Borderline High Risk: 150-199 mg/dL High Risk: 200-499 mg/dL Very High Risk: >xw=220 mg/dL HDL 48 mg/dL [facility] Comment: Males: ?? Higher Risk: <40 mg/dL Females: ?? HIgher Risk: <50 mg/dL LDL Cholesterol 120 mg/dL [facility] Comment: Lowest Risk: <100 mg/dL Lower Risk: 100-129 mg/dL Borderline High Risk: 130-159 mg/dL High Risk: 160-189 mg/dL Very High Risk: >lp=611 mg/dL Chol/HDL Ratio 4.2 ratio [facility] Lipid Interpretation See Note [facility] Comment: Lipid management should be guided by a p atient? s ASCVD risk, goals and preferences. ACC/AHA Guidelines recommend high intens ity statin if clinical ASCVD or LDL greater than or equal to 190 mg/dL. [email or web address] Adults aged 40-75 with LDL 70-189 mg/dL should have their 10 year ASCVD risk estimated with the ACC/AHA ASCVD risk es timator http://tools.acc.org/TOPPB-Kgid-Rmwxgzkv r/ Statin should be discussed if risk great er than or equal to 7.5% in non-diabetics. With diabetes, moderate i ntensity statin is recommended if risk less than 7.5%, high intensity if risk g reater than or equal to 7.5%. Annual lipid monitoring on statins is no t necessary. Evaluate secondary causes of Triglycerid es greater than 500 mg/dL or LDL greater than 190 mg/dL: See table 6 of A CC/AHA Guideline. Lifestyle modification is a critical com ponent of ASCVD risk reduction. Specimen Anatomical Collection Method Collection Time Receive d Time (Source) Location / / Volume Laterality Blood specimen 01/23/2019 2:54 PM 019 3:01 (specimen) EDT PM EDT Resulting Agency Comment Spec In Lab Africa Vanegas MD CHEMISTRY ORDERABLES Performing Organization Address City/State/[place] [address] Hemoglobin A1c (01/23/2019 2:54 PM EDT) athologist Signature Hemoglobin A1C 4.9 4.3 - 5.6 [facility] Comment: Reference Range: 4.3 - 5.6% 5.7 - 6.4% - Increased Risk of Developin g Diabetes Mellitus >= 6.5% - Consistent with diagnosis of D iabetes Mellitus In the absence of hyperglycemia (i.e. pl asma glucose > 200 mg/dL) or classic symptoms of hyperglycemia a repeat measu rement of HbA1c should be performed on a separate sample to confirm the diagnos is. Diagnosis and Classification of Diabetes Mellitus, Diabetes Care 2013; 36: Suppl. 1, N17-05 Est Avg Gluc 94 mg/dL [facility] Comment: eAG equivalents for HbA1c percentages: HbA1c(%) ?eAG(mg/dL) 6.0 ?126 6.5 ?140 7.0 ?154 7.5 ?169 8.0 ?183 8.5 ?197 9.0 ?212 9.5 ?226 10.0 ? 240 Limitations: The eAG calculation has not been validated on women, individuals below 18 years old and above 70 years old, and individuals with hemoglobinopathies. Additional resources are available on [facility] ADA website. Familia GILMAN, Ute J, Joyce R, et al. ??Tr anslating the A1C assay into estimated average glucose values. ??Diabetes Care 2008:31(8):8656-6971. Specimen Anatomical Collection Method Collection Time Receive d Time (Source) Location / / Volume Laterality Blood specimen 01/23/2019 2:54 PM 019 3:01 (specimen) EDT PM EDT Resulting Agency Comment Spec In Lab Africa Vanegas MD CHEMISTRY ORDERABLES Performing Organization Address City/State/ZIP Code Phon e Number [place] [phone] Follicle Stimulating Hormone (01/23/2019 2:54 PM EDT) athologist Signature FSH 43.6 mlU/ML [facility] Comment: Reference Ranges: Females: Follicular: ? 3.5-12.5 mIU/mL Ovulation: ?4.7-21.5 mIU/mL Luteal: ? 1.7-7.7 mIU/mL Postmenopausal: 25.8-134.8 mIU/mL Specimen Anatomical Collection Method Collection Time Receive d Time (Source) Location / / Volume Laterality Blood specimen 01/23/2019 2:54 PM 019 3:01 (specimen) EDT PM EDT Resulting Agency Comment Spec In Lab Lolis Moss MD CHEMISTRY ORDERABLES Performing Organization Address City/State/[place] [address] Prolactin (01/23/2019 2:54 PM EDT) P athologist Signature Prolactin 12.6 4.8 - 23.3 [facility] ng/mL [facility] Specimen Anatomical Collection Method Collection Time Receive d Time (Source) Location / / Volume Laterality Blood specimen 01/23/2019 2:54 PM 019 3:01 (specimen) EDT PM EDT Resulting Agency Comment Spec In Lab Lolis Moss MD CHEMISTRY ORDERABLES Performing Organization Address City/[facility]/[place] [address] documented in this encounter Visit Diagnoses Diagnosis Abnormal uterine bleeding Unspecified disorder of menstruation and other abnormal bleeding from female genital tract Depression, unspecified depression type documented in this encounter Care Teams Sourcing Manager Relationship Specialty Start Date End Date Lolis Moss MD PCP - General General Internal Medicine 04/15/16 0 [facility] [address] [facility] [place] [address] documented as of this encounter
--- OUTSIDE RECORDS SUMMARY | 2022-03-18 11:32 | XMS_ITS | Encounter Summary ---
:1970 [place] [address] Care Team Providers Name Role Phone Lolis Moss MD Primary Care Provider Encounter Details Date Type Department Care Team Description 04/27/2019 [facility] [place] [address] [facility] [phone] [place], [place] [address] (Wo rk) Social History Tobacco [...] Cameron Alves MD [facility] [address] [place] [address] (Wo rk) documented as of this encounter Goals Goal Patient Goal Associated Recent Patient-Stated? Author Type Problems Progress DH Home Medication Patient No Kendrick n, Compliance and Facing Kan Restrepo, Understanding Action Plan [facility] Note: Formatting of this note might be d ifferent from the original. Patient's specific desired goal: to have fewer headaches and to use less adjunct / rescue medication Measured by: calendar, frequency of use of adjunct / rescue meds Time-frame to meet goal: 90-150 days documented as of this encounter Procedures Procedure Name Priority Date/Time Associated Diagnosis Comme nts FILM LIBRARY Routine 04/27/2019 12:00 AM Results for this STORAGE ONLY CT EDT procedure ar e in CHEST the results section. documented in this encounter Results Film Library- Storage Only CT Chest (04/27/2019 12:00 AM EDT) Specimen (Source) Anatomical Location Collection Method / Collectio n Time Received Time / Laterality Volume Narrative RAD - 07/07/2019 9:52 AM EST This exam is auto-finalizing. It's purpo se is for storage only. Lolis Moss MD G FILM LIBRARY ORDERABLES Performing Organization Address City/State/ZIP Code Phon e Number [place], [place] documented in this encounter Visit Diagnoses Not on filedocumented in this encounter Care Teams Field Advisor Relationship Specialty Start Date End Date Lolis Moss MD PCP - General General Internal Medicine 04/15/16 [address] [facility] [address] [place] [place] [address] documented as of this encounter
--- OUTSIDE RECORDS SUMMARY | 2022-03-18 11:32 | XMS_ITS | Encounter Summary ---
:1970 Author Organization [facility] [place] [address] Care Team Providers Name Role Phone Lolis Moss MD Primary Care Provider Encounter Details Date Type Department Care Team Description 12/13/2018 Refill Neurology at [facility] Cameron Alves MD [facility] [place] [address] [place] [address] [phone] (Wo rk) Social History Tobacco Use Types [...] Cameron Alves MD [facility] [place] [address] [place] [address] (Wo rk) documented as of this encounter Goals Goal Patient Goal Associated Recent Patient-Stated? Author Type Problems Progress DH Home Medication Patient No Kendrick n, Compliance and Facing Kan Restrepo, Understanding Action Plan [facility] Note: Formatting of this note might be d ifferent from the original. Patient's specific desired goal: to have fewer headaches and to use less adjunct / rescue medication Measured by: calendar, frequency of use of adjunct / rescue meds Time-frame to meet goal: 90-150 days documented as of this encounter Visit Diagnoses Not on filedocumented in this encounter Care Teams Training And Development Head Relationship Specialty Start Date End Date Lolis Moss MD PCP - General General Internal Medicine 04/15/16 0 [facility] [address] [facility] [place] [address] documented as of this encounter
--- OUTSIDE RECORDS SUMMARY | 2022-03-18 11:32 | XMS_ITS | Encounter Summary ---
:1970 [place] [address] Care Team Providers Name Role Phone Lolis Moss MD Primary Care Provider Reason for Visit Reason Comments Medication Refill Encounter Details Date Type Department Care Team Description 04/26/2019 Refill Neurology at [facility] Cameron Alves MD [address] [facility] [place] [address] [place] [address] [phone] (Wo rk) Social History Tobacco Use Types [...] Cameron Alves MD [facility] [address] [place] [address] (Wo rk) documented [...] on filedocumented in this encounter Care Teams Cardiovascular Surgical Tech Relationship Specialty Start Date End Date Lolis Moss MD PCP - General General Internal Medicine 04/15/16 [address] [facility] [address] [facility] [place] [address] documented as of this encounter
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
--- OUTSIDE RECORDS SUMMARY | 2022-03-18 11:32 | XMS_ITS | Encounter Summary ---
:1970 Author Organization [facility] [place] [address] Care Team Providers Name Role Phone Lolis Moss MD Primary Care Provider Encounter Details Date Type Department Care Team Description 12/14/2018 Orders Only Neurology at [facility] [place] [address] Social History Tobacco Use Types Packs/Day [...] 04/14/2022 Office Visit Neurology Cameron Alves MD [facility] [place] [address] (Wo rk) documented as of [...] filedocumented in this encounter Care Teams Enrollment Services Vice President Relationship Specialty Start Date End Date Lolis Moss MD PCP - General General Internal Medicine 04/15/16 [address] [facility] [address] KARINA SALTER [facility] [place] [address] documented as of this encounter
--- OUTSIDE RECORDS SUMMARY | 2022-03-18 11:32 | XMS_ITS | Encounter Summary ---
:1970 Author Organization [facility] [place] [address] Care Team Providers Name Role Phone Lolis Moss MD Primary Care Provider Reason for Visit Reason Onset Date Comments Medication Problem 05/04/2019 Encounter Details Date Type Department Care Team Description 05/04/2019 Refill Internal Medicine at [facility] Inter costal muscle strain, [facility] [address] initial encounter [address] [place] [address] Social History Tobacco Use Types Packs/Day Years Used Date Former Smoker Cigarettes 0.5 15 Quit: 08/30/19 18 Smokeless Tobacco: Never Used Comments: Started smoking at 45 Alcohol Use Standard Drinks/Week Comments Not Currently 0 (1 standard drink = 0.6 oz pure alcoho l) Sex Assigned at Date Recorded Not on file documented as of this encounter Miscellaneous Notes Telephone Encounter - Alva Novak RN - 05/04/2019 4:32 PM EDT Called [facility] pharmacy and relayed information re: new Rx Pharmacist verbalized understanding Telephone Encounter - Esmer Hernandez - 05/04/2019 3:46 PM EDT Pharmacy or caller: Garcia from [facility] (Choose Subscriber line when calling). Medication: - traMADol (ULTRAM) 50 mg Tablet - clonazePAM (KLONOPIN) 0.5 mg Tablet Message: Pharmacy called stating that they need clarification on what kind of acute pain this medication is for. Pharmacy stated that due to insurance and [employer] policy, they cannot supply more than 7days of this medication and comes with no refills. Pharmacy stated that they can do a one supply for7 days.Pharmacy also stated that they need documentation via insurance that the pt is taking clonazepam since that medication is associated with tramadol. Please call back to discuss. documented in this encounter Plan of Treatment Upcoming Encounters Date Type Specialty Care Team Description 04/14/2022 Office Visit Neurology Cameron Alves MD [facility] [place], [place] [address] (Wo rk) documented as of [...] as of this encounter Visit Diagnoses Diagnosis Intercostal muscle strain, initial encou nter documented in this encounter Care Teams Cigarette Packing Machine Operator Relationship Specialty Start Date End Date Lolis Moss MD PCP - General General Internal Medicine 04/15/16 [address] [facility] [address] [place] [place] [address] documented as of this encounter
--- OUTSIDE RECORDS SUMMARY | 2022-03-18 11:32 | XMS_ITS | Encounter Summary ---
:1970 Author Organization [facility] [place] [address] Care Team Providers Name Role Phone Lolis Moss MD Primary Care Provider Reason for Visit Reason Comments Medication Refill Encounter Details Date Type Department Care Team Description 06/10/2019 Refill Neurology at [facility] Cameron Alves MD [facility] [place] [address] [place] [address] [phone] (Wo rk) Social History Tobacco Use Types [...] Neurology Cameron Alves MD [facility] er [address] [place] [address] (Wo rk) [...] on filedocumented in this encounter Care Teams Logging Operations Inspector Relationship Specialty Start Date End Date Lolis Moss MD PCP - General General Internal Medicine 04/15/[address] [facility] [address] [place] [place] [address] documented as of this encounter
--- OUTSIDE RECORDS SUMMARY | 2022-03-18 11:32 | XMS_ITS | Encounter Summary ---
:1970 Author Organization [facility] [place] [address] Care Team Providers Name Role Phone Lolis Moss MD Primary Care Provider Encounter Details Date Type Department Care Team Description 03/15/2019 Office Visit Neurology at [facility] Cameron Alves, Chronic migraine without aur a, with intractable migraine, so stated, with status migrainosus; [facility] Migraine with aura and without status mi grainosus, [place] [address] [place] [address] [phone] Social History Tobacco Use Types Packs/Day Years [...] Sign Reading Time Taken Comments Blood Pressure 142/98 03/15/2019 10:30 AM EDT Pulse 74 03/15/2019 10:30 AM EDT Temperature - - Respiratory Rate - - Oxygen Saturation - - Inhaled Oxygen Concentration - - Weight 52.2 kg (115 lb) 03/15/2019 10:30 AM EDT Reporte d Height 160 cm (5' 3) 03/15/2019 10:30 AM EDT Reported Body Mass Index 20.37 03/15/2019 10:30 AM EDT documented in this encounter Progress Notes Cameron Alves MD - 03/15/2019 10:30 AM EDT Neurology Headache Clinic Follow-up Visit 03-15-19 Last Visit: 09-21-18 Pain today: 4 Interval Headache Hx: Last seen in Sep, and I wrote in part, This patient has recurrent psychosis with bipolar disorder, a chronic pain syndrome, and has had at least 38 medication trials. She was on mag B2, TPM, and candesartan, and I added CoQ10 and prn TRX??in Apr. She cancelled her appointments on 11/10/17 and 12/22/17. She has [employer] insurance.??She has not had Botox.?? Dr. Ivory saw her on 09/07/18 & wondered whether the episodes could be epileptic. He ordered a 24 h EEG and increased her TPM. ?? Her prevention meds in Sep were TPM, duloxetine, quetiapine, mag, CoQ10, and candesartan. Her prn isTRX. She was getting [facility] 3-5 times per week, using prn TRX. She was getting 12-20 [facility] days per month. I prescribed erenumab, first dose Sep 21, 2018, 6 doses so far. She has Medicare/[employer] insurance. Prior Treatments: TCAs ?1. Amitriptyline Neuroleptics ?2. [...] Candesartan SSRIs ?39. Sertraline MABs 40. Erenumab ?? New Health Issues: See HPI [...] BX performed by David Hardy MD at [facility] ??? PRO UPPER GI ENDOSCOPY, BIOPSY N/A 02/11/2016 UPPER GASTROINTESTINAL ENDOSCOPY,WITH BIOPSY SINGLE OR MULTIPLE performed by David Hardy MD at [facility] ??? TUBAL LIGATION Studies to Review: no Outpatient Medications Marked as Taking for the 03/15/19 encounter (Office Visit) with Cameron Alves MD Medication Sig Dispense Refill ??? clonazePAM (KLONOPIN) 0.5 mg Tablet Take 0.5mg (1 tablet) every morning, 0.5mg (1 tablet)every afternoon, and 0.625mg (1.25 tablet) in the evening. 98 tablet 0 ??? baclofen (LIORESAL) 20 mg Tablet Take 0.5 tablets by mouth 3 times daily as needed. 270 tablet 3 ??? DULoxetine (CYMBALTA) 60 mg Capsule, Delayed Release(E.C.) Take 1 capsule by mouth 2 times daily. 180 capsule 3 ??? candesartan (ATACAND) 16 mg Tablet Take 1 tablet by mouth every evening. 30 tablet 3 ??? erenumab-aooe (AIMOVIG AUTOINJECTOR) 140 mg/mL Auto-Injector Inject 140 mg subcutaneously every 30 days. 1 mL 5 ??? omeprazole/sodium bicarbonate (ZEGERID ORAL) Take 1 tablet by mouth as needed. ??? ondansetron (ZOFRAN) 8 mg Tablet Take 1 tablet by mouth 2 times daily as needed for Nausea. 20 tablet 4 ??? QUEtiapine (SEROQUEL) 50 mg Tablet Take 1 to 2 tablets at night for sleep. 180 tablet 0 ??? topiramate (TOPAMAX) 100 mg Tablet Take 1 tablet by mouth 2 times daily. 180 tablet 1 ??? SUMAtriptan (IMITREX) 100 mg Tablet 1 tab for severe h/a. May repeat x1 after 2 hours. NTE 200mgin 24h. NTE 2 days per week (all triptans). DO NOT take on same day as treximet 9 tablet 0 ??? fexofenadine-pseudoephedrine (COREY-D 24) 180-240 mg Tablet Sustained Release 24 hr Take 1 tablet by mouth daily. (Patient taking differently: Take 1 tablet by mouth daily as needed.) 30 tablet 3 ??? albuterol 90 mcg/actuation HFA Aerosol Inhaler Inhale 2 puffs into the lungs every 4 hours as needed for Wheezing. Use with spacer 1 Inhaler 1 ??? SUMAtriptan-Naproxen 85-500 mg Tablet Take one tab at onset of migraine, may repeat in 4 hours if no better. No more than 2 tabs in 24 hours or 2 days per week. 18 tablet 11 ??? MAGNESIUM ORAL Take 1 tablet by mouth daily. ??? UBIDECARENONE (COENZYME Q10 ORAL) Take 1 tablet by mouth daily. ??? ferrous sulfate 325 mg (65 mg iron) Tablet, Delayed Release (E.C.) Take 1 tablet by mouth daily.7 tablet 0 ??? multivitamin (THERAGRAN) Tablet Take 1 tablet by mouth daily. ??? riboflavin, vitamin B2, 100 mg Tablet Take 1 tablet by mouth daily. 30 tablet 11 Allergies Allergen Reactions ??? Pollen Extracts REVIEW OF SYSTEMS: See HPI Physical Examination: VS BP (!) 142/98 (BP Location (NBP): Left arm, Patient Position: Sitting, BP Cuff Sizes: Adult (25-34 cm)) Pulse 74 Ht 160 cm (5' 3) Comment: Reported Wt 52.2 kg (115 lb) Comment: Reported BMI20.37 kg/m?? General: Normal skin, musculoskeletal Neurological: Normal mentation, coordination, gait Impression & plan: 1. Chronic migraine without aura, with intractable migraine, so stated, with status migrainosus She is >50% improved on headache days, dropping from 17/month to 3/month. She has a menstrual migraine and did not bring her meds. I will give her sumatriptan 6 mg SC and 660mg naproxen sodium. She will continue on the erenumab 140 mg. AIMOVIG Follow Up [facility] Patient name: Lisseth Boone Date of : 1970 MIDAS Responses 03/15/2019 Days missed school/work 3 Days productivity at work/school reduced 6 Days did not do household work 12 Days productivity related to housework reduced 10 Days missed family, social or leisure activities 8 Days had headache 10 Pain scale 7 MIDAS Score 39 (MIDAS grade IV, severe disability) Date you began using Aimovig: Sep 21, 2018 How many months have you administered Aimovig 140 m How many migraine/headache days per month did you have BEFORE starting Aimovi (12-20) How many migraine/headache days per month have you had SINCE starting Aimovi Have you noticed that your headaches/migraines are not as severe since starting Aimovig: no Have you used less of your abortive medications (triptans, NSAIDs, etc) since starting Aimovig: yes Are your abortive medications working better to abort migraines since starting Aimovig: same Do you think the Aimovig is helping: yes Side effects: no Is the medication wearing off ? no Is the medication preventing your MENSTRUAL Migraine? Not sure and medhat-menopausal Follow-up: 6 mos I spent 40 minutes in this visit, with at least 30 devoted to patient counseling. Cameron Alves MD Haydee Dolan RN - 03/15/2019 10:30 AM EDT After obtaining verbal consent, and per orders of Cameron Alves MD, injection of sumatriptan 6 mg given SQ. documented in this encounter Plan of Treatment Upcoming Encounters Date Type Specialty Care Team Description 04/14/2022 Office Visit Neurology Cameron Alves MD [facility] [address] [place], [place] [address] (Wo rk) [...] of status migrainosus documented in this encounter Administered Medications Inactive Administered Medications - up to 3 most recent administrations Medication Order MAR Action Action Date Dose Rate Site SUMAtriptan (IMITREX) Given 03/15/2019 10:50 AM EDT 6 mg Right Arm injection 6 mg 6 mg, Subcutaneous, ONCE, 1 dose, On Wed03/15/19 at 1130, Maximum 2 doses in 24 hours, Routine documented in this encounter Care Teams Production Aide Relationship Specialty Start Date End Date Lolis Moss MD PCP - General General Internal Medicine 04/15/16 [address] [facility] [address] [facility] [place] [address] documented as of this encounter
--- OUTSIDE RECORDS SUMMARY | 2022-03-18 11:32 | XMS_ITS | Encounter Summary ---
:1970 Author Organization [facility] [place] [address] Care Team Providers Name Role Phone Lolis Moss MD Primary Care Provider Reason for Visit Reason Onset Date Comments Other 10/13/2018 Encounter Details Date Type Department Care Team Description 10/13/[address] [facility] Jessica Rodriguez Other [address] [place] [address] Social History Tobacco Use Types Packs/Day Years Used Date Former Smoker Cigarettes 0.5 15 Quit: 08/30/19 18 Smokeless Tobacco: Never Used Comments: Started smoking at 45 Alcohol Use Standard Drinks/Week Comments Not Currently 0 (1 standard drink = 0.6 oz pure alcoho l) Sex Assigned at Date Recorded Not on file documented as of this encounter Miscellaneous Notes Telephone Encounter - Sol Wooten RN - 10/13/2018 3:03 PM EST Called Lisseth left a message that the Chantix appeal has been approved. Telephone Encounter - Jessica Monteiro - 10/13/2018 2:31 PM EST Message: Dorothy from [facility] is calling stating patient's appeal for medical necessity on Chantix has been approved starting today 10/13/18 for 1 year. Caller and relationship (if other than patient-[facility] Best time to call back: any Ok to leave a message: [yes] Ok to send my- message: [yes] Offered Appointment: no MA/Nurse contacted via: Message: yes Call: no Pager: no documented in this encounter Plan of Treatment Upcoming Encounters Date Type Specialty Care Team Description 04/14/2022 Office Visit Neurology Cameron Alves MD [facility] [place], [place] [address] (Wo rk) documented as of [...] on filedocumented in this encounter Care Teams Online Publisher Relationship Specialty Start Date End Date Lolis Moss MD PCP - General General Internal Medicine 04/15/[address] [facility] [address] [place] [address] documented as of this encounter
--- OUTSIDE RECORDS SUMMARY | 2022-03-18 11:32 | XMS_ITS | Encounter Summary ---
:1970 Author Organization [facility] [place] [address] Care Team Providers Name Role Phone Lolis Moss MD Primary Care Provider Reason for Visit Reason Onset Date Comments Prior Authorization 12/13/2018 AIMOVIG 140MG Encounter Details Date Type Department Care Team Description 12/13/2018 Telephone Neurology at [facility] Cameron Alves, Prior Authorization [facility] (AIMOVIG 140MG) [place] [address] [address] [phone] [place], [place] [address] Social History Tobacco Use Types Packs/Day Years Used Date Former Smoker Cigarettes 0.5 15 Quit: 08/30/19 18 Smokeless Tobacco: Never Used Comments: Started smoking at 45 Alcohol Use Standard Drinks/Week Comments Not Currently 0 (1 standard drink = 0.6 oz pure alcoho l) Sex Assigned at Date Recorded Not on file documented as of this encounter Miscellaneous Notes Telephone Encounter - Haven Doherty MA - 12/13/2018 12:14 PM EDT Images from the original note were not included. Telephone Encounter - Haven Doherty MA - 12/13/2018 12:01 PM EDT Images from the original note were not included. documented in this encounter Plan of Treatment Upcoming Encounters Date Type Specialty Care Team Description 04/14/2022 Office Visit Neurology Cameron Alves MD [facility] [place] [address] (Wo rk) documented as of this encounter Goals Goal Patient Goal Associated Recent Patient-Stated? Author Type Problems Progress DH Home Medication Patient No Kendrick n, Compliance and Facing Kan Restrepo, Understanding Action Plan [facility] Note: Formatting of this note might be d ifferent from the original. Patient's specific desired goal: to have fewer headaches and to use less adjunct / rescue medication Measured by: calendar, frequency of use of adjunct / rescue meds Time-frame to meet goal: 90-150 days documented as of this encounter Visit Diagnoses Not on filedocumented in this encounter Care Teams Merry Go Round Operator Relationship Specialty Start Date End Date Lolis Moss MD PCP - General General Internal Medicine 04/15/[address] [facility] [address] [facility] [place] [address] documented as of this encounter
--- OUTSIDE RECORDS SUMMARY | 2022-03-18 11:32 | XMS_ITS | Encounter Summary ---
:1970 Author Organization [facility] [place] [address] Care Team Providers Name Role Phone Lolis Moss MD Primary Care Provider Reason for Visit Reason Onset Date Comments Prior Authorization 10/11/2018 Chantix Starting Mon [place] 0.5 MG X 11 &1 MG X 42 tablets Encounter Details Date Type Department Care Team Description 10/11/2018 Telephone Internal Medicine at Alice Mason Pr ior Authorization [facility] (Chantix Starting Month [address] [place] 0.5 MG X 11 &[place] [address] 42 tablets) [phone] Social History Tobacco Use Types Packs/Day Years [...] Telephone Encounter - Alice Mason CMA - 10/18/2018 3:14 PM EST Medication Prior Authorization for Primary [place] [address] Approved: Chantix appeal Start Date: 10/12/2018 End Date: 01/09/19 Case/Reference #: [id number] See Approval Letter in scanned documents. Telephone Encounter - Alice Mason CMA - 10/12/2018 9:30 AM EST Letter of medical necessity requesting redetermination of coverage decision has been faxed to insurance. Medication: [employer] Insurance Co.: [employer] Phone #: [phone] Fax #: [phone] Telephone Encounter - Lolis Moss MD - 10/12/2018 8:52 AM EST I have written a letter, can you submit it? Telephone Encounter - Alice Mason CMA - 10/12/2018 6:09 AM EST Images from the original note were not included. Medication Prior Authorization for Primary [place] [address] Denied: X Case/Reference #: n/a Additional Information from Insurance carrier: Telephone Encounter - Alice Mason CMA - 10/11/2018 3:28 PM EST Medication Prior Authorization for Primary Care ?? [place] ??[address] ?? Patient:??Lisseth Stanley Boone ?? Patient :??1970 ? Subscriber Insurance:??[employer]? Insurance Phone #: [phone] ?? Sent via:??covermymeds? [place]/Fax#: [id number] Physician:??Lolis Moss MD? NPI:??[id number] ?? Return ?? Medication Requested:?varenicline (CHANTIX) 0.5 mg (11)- 1 mg (42) Tablets, Dose Pack? Frequency:??Take by mouth with meals. ??Days 1-3: 0.5mg ONCE daily. ??Days 4-7: 0.5 mg TWICE daily. Day 8 until the end of treatment 1 mg TWICE daily. ?Disp.:??53?Refills:??0 ?? Currently??taking:??no?Ifyes, how long: ?? Diagnosis for this medication:??ready to quit smoking?ICD-10 code:??F17.200 ?? Prior medications trialed in this patient:?? Nicoderm 7 mg [id number] Nicoderm 14 mg 3144-2596 Nicoderm 21 mg 2721-1662 documented in this encounter Plan of Treatment Upcoming Encounters Date Type Specialty Care Team Description 04/14/2022 Office Visit Neurology Cameron Alves MD [facility] [address] [place], [place] [address] (Wo rk) documented as of [...] on filedocumented in this encounter Care Teams Foreign Banknote Teller Trader Relationship Specialty Start Date End Date Lolis Moss MD PCP - General General Internal Medicine 04/15/16 [address] [facility] [address] [facility] [place] [place] [address] documented as of this encounter
--- OUTSIDE RECORDS SUMMARY | 2022-03-18 11:32 | XMS_ITS | Encounter Summary ---
:1970 Author Organization [facility] [place] [address] Care Team Providers Name Role Phone Lolis Moss MD Primary Care Provider Encounter Details Date Type Department Care Team Description 06/25/2019 Orders Only Psychiatry Bobbi Rojas MD [facility] [place] [address] PSYCHIATRY [phone] [place], [place] [address] (Wo rk) Social History Tobacco [...] Cameron Alves MD [facility] er [address] [place] [address] (Wo rk) documented [...] on filedocumented in this encounter Care Teams Reimbursement Representative Relationship Specialty Start Date End Date Lolis Moss MD PCP - General General Internal Medicine 04/15/16 [address] [facility] [address] [place] [address] documented as of this encounter
--- OUTSIDE RECORDS SUMMARY | 2022-03-18 11:32 | XMS_ITS | Encounter Summary ---
:1970 Author Organization [facility] [place] [address] Care Team Providers Name Role Phone Lolis Moss MD Primary Care Provider Reason for Visit Reason Onset Date Comments Medication Refill 05/17/2019 Encounter Details Date Type Department Care Team Description 05/17/2019 Refill Psychiatry and Behavioral Temitope Willis, RN [facility] [place] [address] Social History Tobacco Use Types Packs/Day [...] Office Visit Neurology Cameron Alves MD [facility] [address] [place] [address] (Wo rk) documented as of [...] on filedocumented in this encounter Care Teams Heating Mechanic Relationship Specialty Start Date End Date Lolis Moss MD PCP - General General Internal Medicine 04/15/16 [address] [facility] [address] [facility] [place] [address] documented as of this encounter
--- OUTSIDE RECORDS SUMMARY | 2022-03-18 11:32 | XMS_ITS | Encounter Summary ---
:1970 Author Organization [facility] [place] [address] Care Team Providers Name Role Phone Lolis Moss MD Primary Care Provider Encounter Details Date Type Department Care Team Description 01/12/2019 Orders Only Psychiatry and Behavioral [place] Debra ortiz MD Health at [facility] [place] [address] [place] [address] [phone] Social History Tobacco Use Types Packs/Day Years [...] Alves MD [facility] [place] [address] (Wo rk) documented as of [...] on filedocumented in this encounter Care Teams Shovel Logger Relationship Specialty Start Date End Date Lolis Moss MD PCP - General General Internal Medicine 04/15/[address] [facility] [address] [place] [address] documented as of this encounter
--- OUTSIDE RECORDS SUMMARY | 2022-03-18 11:32 | XMS_ITS | Encounter Summary ---
:1970 Author Organization [facility] [place] [address] Care Team Providers Name Role Phone Lolis Moss MD Primary Care Provider Reason for Visit Reason Comments Follow-up no other concerns Encounter Details Date Type Department Care Team Description 01/23/2019 Office Visit Internal Medicine at Lolis Moss Abn ormal uterine bleeding; [facility] Kolton Gimenez MD Breast tenderness in female [address] [place] [address] [phone] [place] [address] Social History Tobacco Use Types Packs/Day Years [...] Sign Reading Time Taken Comments Blood Pressure 113/79 01/23/2019 11:36 AM EDT Pulse 73 01/23/2019 11:36 AM EDT Temperature 36.4 ??C (97.5 ??F) 01/23/2019 11:36 AM EDT Respiratory Rate 18 01/23/2019 11:36 AM EDT Oxygen Saturation 100% 01/23/2019 11:36 AM EDT Inhaled Oxygen Concentration - - Weight 59 kg (130 lb) 01/23/2019 11:36 AM EDT Height 158.6 cm (5' 2.44) 01/23/2019 11:36 AM EDT Body Mass Index 23.44 01/23/2019 11:36 AM EDT documented in this encounter Progress Notes Lolis Moss MD - 01/23/2019 11:30 AM EDT Breast tenderness Has not had any more spells Has been taking some on line classes 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 to write a 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--it was stressfull Was having some breast tenderness Notices it mostly at night when laying down--especially when she lays on the right Has been going on for 4-5 months Not aware of a specific injury--does sleep with arm above the head Breasts have always been lumpy This does not feel the pain that comes with her periods Does have some discharge in the shower, this has happened for years Periods have been irregular (has always been irregular, but this is more irregular than she has been) Last period was 6 wks ago Sometimes they are short Has some hot flashes Thinks that her Mom had menopause before age 50, but not sure Did not get the transvaginal US orders last year Mood--has been ok, now that she is feeling she will pass her class she is reassured Has been weaning off the Klonopin--has been going slow, but has been successful with it PE BP 113/79 (BP Location (NBP): Left arm, Patient Position: Sitting, BP Cuff Sizes: Adult (25-34 cm)) Pulse 73 Temp 36.4 ??C (97.5 ??F) (Oral) Resp 18 Ht 158.6 cm (5' 2.44) Wt 59 kg (130 lb) SpO2 100% BMI 23.44 kg/m?? Looks well She has some tenderness of the chest wall And some tenderness of the breasts themselves There are no masses No axillary adenopathy A/P 1. Will get the mammogram, with family history we should screen. Can take a dose of ibuprofen beforethe mammo 2. Irregular cycles, will check FSH and prolactin documented in this encounter Plan of Treatment Upcoming Encounters Date Type Specialty Care Team Description 04/14/2022 Office Visit Neurology Cameron Alves MD [facility] [place] [address] (Wo rk) documented as of this encounter Goals Goal Patient Goal Associated Recent Patient-Stated? Author Type Problems Progress DH Home Medication Patient No Kendrick n, Compliance and Facing Kan P, Understanding Action Plan [facility] ED Note: Formatting of this note might be d ifferent from the original. Patient's specific desired goal: to have fewer headaches and to use less adjunct / rescue medication Measured by: calendar, frequency of use of adjunct / rescue meds Time-frame to meet goal: 90-150 days documented as of this encounter Results Prolactin (01/23/2019 2:54 PM EDT) athologist Signature Prolactin 12.6 4.8 - 23.3 [facility] Specimen Anatomical Collection Method Collection Time Receive d Time (Source) Location / / Volume Laterality Blood specimen 01/23/2019 2:54 PM 019 3:01 (specimen) EDT PM EDT Resulting Agency Comment Spec In Lab Lolis Moss MD CHEMISTRY ORDERABLES Performing Organization Address City/State/[facility] [place] [address] Follicle Stimulating Hormone (01/23/2019 2:54 PM EDT) athologist Signature FSH 43.6 mlU/ML [facility] Comment: Reference Ranges: Females: Follicular: ? [...] Organization Address City/State/ZIP Code [place] [address] documented in this encounter Visit Diagnoses Diagnosis Abnormal uterine bleeding Unspecified disorder of menstruation and other abnormal bleeding from female genital tract Breast tenderness in female Mastodynia documented in this encounter Care Teams Store Stock Help Relationship Specialty Start Date End Date Lolis Moss MD PCP - General General Internal Medicine 04/15/16 [address] [facility] [address] [place] [address] documented as of this encounter
--- OUTSIDE RECORDS SUMMARY | 2022-03-18 11:32 | XMS_ITS | Encounter Summary ---
:1970 Author Organization 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 Encounter Details Date Type Department Care Team Description 05/04/2019 [facility] Heater [facility] MD see Gimenez, initial [address] [facility] [address] [phone] PRIMARY CARE [place], [place] [address] Social History Tobacco Use Types [...] Sign Reading Time Taken Comments Blood Pressure 132/95 05/04/2019 1:39 PM EDT Pulse 90 05/04/2019 1:39 PM EDT Temperature 36.8 ??C (98.3 ??F) 05/04/2019 1:39 PM EDT Respiratory Rate 16 05/04/2019 1:39 PM EDT Oxygen Saturation 98% 05/04/2019 1:39 PM EDT Inhaled Oxygen Concentration - - Weight - - Height - - Body Mass Index - - documented in this encounter Progress Notes Lolis Moss MD - 05/04/2019 1:40 PM EDT Chest pain Started last week Lifted a child, packing boxes, thought she strained something Got worse Hurt to breath Had some vomiting (GI Bug?) Was seen in ER With neg labs and and CTPA 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 Suspects she injured it again Mcclure something move/give in her chest Has been hurting more Not sleeping Hurts all the time Took some tylenol--has not helped Took for a few days, stopped did not think it helped it al Icing did not help Lido patch, Tried wraping Tried ibuprofen 800mg did not help nothing has helped Hurts to take a deep breath Has not had a cough (but the kids as work are all sick) No fever Vomiting has settled, has been taking the nausea meds Bowels are moving, but had been constipated, taking a stool softenter PE BP (!) 132/95 (BP Location (NBP): Left arm, Patient Position: Sitting, BP Cuff Sizes: Adult (25-34 cm)) Pulse 90 Temp 36.8 ??C (98.3 ??F) (Oral) Resp 16 SpO2 98% Looks tired and uncomfortable Lungs clear, breath sounds throughout No rash No bruising Painful to lift right shoulder about 90deg, but passively has full ROM Has tenderness in intercostal areas in the right anterior chest wall, the ribs are not as tender A/P Painful intercostal muscle sprain We discussed this diagnosis Advised her with some passive ROM for the right shoulder She does not do will with NSAIDs(GI upset) Not much help with tylenol Would like to try some tramadol Discussed this is for short term help, probably a couple of weeks And was to help with some of the worst pain Advised her to take some tylenol with it She would like to try some voltaren gel as well Advised not to take the imitrex when taking the tramadol Showed her how to splint with a pillow--which did help her feel better Possibly could add some gabapentin if things are not settling down documented in this encounter Plan of Treatment Upcoming Encounters Date Type Specialty Care Team Description 04/14/2022 Office Visit Neurology Cameron Alves MD [facility] [place], [place] [address] (Wo rk) documented as of this encounter Goals Goal Patient Goal Associated Recent Patient-Stated? Author Type Problems Progress DH Home Medication Patient No Kendrick ridley, Compliance and Facing Kan Restrepo, Understanding Action Plan [facility] Note: Formatting of this note might be [...] nter documented in this encounter Care Teams Patient Service Technician Pst Relationship Specialty Start Date End Date Lolis Moss MD PCP - General General Internal Medicine 04/15/[address] [facility] [address] [place] [address] documented as of this encounter
--- OUTSIDE RECORDS SUMMARY | 2022-03-18 11:32 | XMS_ITS | Encounter Summary ---
:1970 Author Organization [facility] [place] [address] Care Team Providers Name Role Phone Travis Torres MD Primary Care Provider Reason for Visit Reason Comments Medication Refill Encounter Details Date Type Department Care Team Description 03/13/2019 Refill Psychiatry and Behavioral [place] Debra ortiz MD [facility] [place] [address] [place] [address] [phone] Social History Tobacco Use Types Packs/Day Years [...] MD [facility] [address] [place] [address] (Wo rk) documented as of [...] on filedocumented in this encounter Care Teams Unemployment Insurance Hearing Officer Relationship Specialty Start Date End Date Travis Torres MD PCP - General Family Medicine 01/09/22 [place] [id number] documented as of this encounter
--- OUTSIDE RECORDS SUMMARY | 2022-03-18 11:32 | XMS_ITS | Encounter Summary ---
:1970 Author Organization [facility] [address] Care Team Providers Name Role Phone Lolis Moss MD Primary Care Provider Reason for Visit Reason Comments Medication Refill Encounter Details Date Type Department Care Team Description 03/19/2019 Refill Neurology at [facility] Cameron Alves MD [facility] [place] [address] [place] [address] [phone] (Wo rk) Social History Tobacco Use Types [...] Neurology Cameron Alves MD [facility] [place] [address] [place] [address] (Wo rk) [...] on filedocumented in this encounter Care Teams Pearl Technician Relationship Specialty Start Date End Date Lolis Moss MD PCP - General General Internal Medicine 04/15/16 0 [facility] [address] [place] [address] documented as of this encounter
--- OUTSIDE RECORDS SUMMARY | 2022-03-18 11:32 | XMS_ITS | Encounter Summary ---
:1970 Author Organization [facility] [place] [address] Care Team Providers Name Role Phone Lolis Moss MD Primary Care Provider Reason for Visit Reason Onset Date Comments Medication Refill 06/15/2019 Encounter Details Date Type Department Care Team Description 06/15/2019 Refill Psychiatry and Behavioral Temitope Willis, [place] [address] Social History Tobacco Use Types Packs/Day Years Used Date Former Smoker Cigarettes 0.5 15 Quit: 08/30/19 18 Smokeless Tobacco: Never Used Comments: Started smoking at 45 Alcohol Use Standard Drinks/Week Comments Not Currently 0 (1 standard drink = 0.6 oz pure alcoho l) Sex Assigned at Date Recorded Not on file documented as of this encounter Miscellaneous Notes Telephone Encounter - Zhen Clark MD - 06/15/2019 11:27 AM EDT Received refill request while covering Dr. Rojas's in basket. Wrote for 15 tablets of 0.5mg clonazepam to take patient until appointment with Dr. Rojas on 06/19. Continued with the clonazepam taper reduction of 0.125mg in the TDD every 30 days. Current dose of clonazepam is 0.325mg qAM, 0.5mg qNoon, and 0.5mg qHS. documented in this encounter Plan of Treatment Upcoming Encounters Date Type Specialty Care Team Description 04/14/2022 Office Visit Neurology Cameron Alves MD [facility] [address] [place] [address] (Wo rk) documented as of [...] on filedocumented in this encounter Care Teams Thrill Performer Relationship Specialty Start Date End Date Lolis Moss MD PCP - General General Internal Medicine 04/15/[address] [facility] [address] [place] [address] documented as of this encounter
--- OUTSIDE RECORDS SUMMARY | 2022-03-18 11:32 | XMS_ITS | Encounter Summary ---
:1970 Author Organization [facility] [place] [address] Care Team Providers Name Role Phone Lolis Moss MD Primary Care Provider Reason for Visit Reason Onset Date Comments Medication Refill 02/09/2019 Encounter Details Date Type Department Care Team Description 02/09/2019 Refill Psychiatry and Behavioral Temitope Willis, [place] [address] Social History Tobacco Use Types Packs/Day Years Used Date Former Smoker Cigarettes 0.5 15 Quit: 08/30/19 18 Smokeless Tobacco: Never Used Comments: Started smoking at 45 Alcohol Use Standard Drinks/Week Comments Not Currently 0 (1 standard drink = 0.6 oz pure alcoho l) Sex Assigned at Date Recorded Not on file documented as of this encounter Miscellaneous Notes Telephone Encounter - Debra Munguia MD - 02/09/2019 3:13 PM EDT Notified by staff that pt expressing concern about klonopin taper. Called pt at [phone]. Pt clarifies that she had only wanted to make sure that the dose in the refill was correct. Agreed that thenew dose of clonazepam was going to be 0.5mg (1 tablet) every morning, 0.625 mg (1.25 tablet) every afternoon, and 0.625mg (1.25 tablets) in the evening. Pt wanted that morning dose be the one to go down. Pt expresses understanding and agreement with plan. documented in this encounter Plan of Treatment Upcoming Encounters Date Type Specialty Care Team Description 04/14/2022 Office Visit Neurology Cameron Alves MD [facility] [place], [place] [address] (Wo rk) documented as of this encounter Goals Goal Patient Goal Associated Recent Patient-Stated? Author Type Problems Progress DH Home Medication Patient No Kendrick n, Compliance and Facing Kan P, Understanding Action Plan [facility] Note: [...] on filedocumented in this encounter Care Teams Land Acquisition Specialist Relationship Specialty Start Date End Date Lolis Moss MD PCP - General General Internal Medicine 04/15/[address] [facility] [address] [place]ARINA [place] [address] documented as of this encounter
--- OUTSIDE RECORDS SUMMARY | 2022-03-18 11:32 | XMS_ITS | Encounter Summary ---
:1970 Author Organization [facility] [place] [address] Care Team Providers Name Role Phone Lolis Moss MD Primary Care Provider Reason for Visit Reason Onset Date Comments Medication Refill 04/26/2019 Encounter Details Date Type Department Care Team Description 04/26/2019 Refill Neurology at [facility] Cameron Alves MD [facility] [place] [address] [place] [address] [phone] (Wo rk) Social History Tobacco Use Types Packs/Day Years Used Date Former Smoker Cigarettes 0.5 15 Quit: 08/30/19 18 Smokeless Tobacco: Never Used Comments: Started smoking at 45 Alcohol Use Standard Drinks/Week Comments Not Currently 0 (1 standard drink = 0.6 oz pure alcoho l) Sex Assigned at Date Recorded Not on file documented as of this encounter Miscellaneous Notes Telephone Encounter - Angeles Jansen - 04/26/2019 9:54 AM EDT Pt called She called the number she was supposed to and they are out of refills. Please call a RX for sumatriptan to [facility] in [place]. She doesn't know that mg But the mail order pharmacy will take a while to get here and she is out . Please call with questions [phone] documented in this encounter Plan of Treatment Upcoming Encounters Date Type Specialty Care Team Description 04/14/2022 Office Visit Neurology Cameron Alves MD [facility] [place], [place] [address] (Wo rk) documented as of [...] on filedocumented in this encounter Care Teams Power Plant Operations Manager Relationship Specialty Start Date End Date Lolis Moss MD PCP - General General Internal Medicine 04/15/16 0 [facility] [address] [place] [address] documented as of this encounter
--- OUTSIDE RECORDS SUMMARY | 2022-03-18 11:32 | XMS_ITS | Encounter Summary ---
:1970 Author Organization [facility] [place] [address] Care Team Providers Name Role Phone Lolis Moss MD Primary Care Provider Reason for Visit Reason Onset Date Comments Medication Refill 09/23/2018 Encounter Details Date Type Department Care Team Description 09/23/2018 Refill Psychiatry and Behavioral Temitope Willis, RN Health at [facility] [place] [address] Social History Tobacco Use Types Packs/Day [...] Cameron Alves MD [facility] er [address] [place] [address] (Wo rk) documented as of this encounter Visit Diagnoses Not on filedocumented in this encounter Care Teams Earthmoving Labourer Relationship Specialty Start Date End Date Lolis Moss MD PCP - General General Internal Medicine 04/15/16 6/ [address] [facility] [address] [place] [address] documented as of this encounter
--- OUTSIDE RECORDS SUMMARY | 2022-03-18 11:32 | XMS_ITS | Encounter Summary ---
:1970 Author Organization [facility] [place] [address] Care Team Providers Name Role Phone Lolis Moss MD Primary Care Provider Reason for Visit Reason Comments Medication Management Encounter Details Date Type Department Care Team Description 06/01/2019 Specialty Pharmacy Pharmacy at [facility] Robyn Vasquez, [place] [id number] Social History Tobacco Use Types Packs/Day Years Used Date Former Smoker Cigarettes 0.5 15 Quit: 08/30/19 18 Smokeless Tobacco: Never Used Comments: Started smoking at 45 Alcohol Use Standard Drinks/Week Comments Not Currently 0 (1 standard drink = 0.6 oz pure alcoho l) Sex Assigned at Date Recorded Not on file documented as of this encounter Progress Notes Robyn Vasquez, [facility] - 06/01/2019 1:35 PM EDT Clinical Management Plan: MIDAS Assessment Specialty Pharmacy Consultation; Robyn Vasquez [facility] Comprehensive Medication Management (CMM) Lisseth Boone is a 48 y.o. (1970) female who was contacted in regard to a specialty medication assessment. Spoke with patient referencing use of Aimovig. Most Recent MIDAS: 06/01/2019 Migraine Disability Assessment # of days in the past 3 months 1. Missed work / school because of [facility] 1 2. Productivity at work / school reduced by > half because of [facility] (do not count days from Q.1) 0 3. Did not do housework because of [facility] 2 4. Productivity in household work reduced by > half because of [facility] (do not count days from Q.3) 2 5. Missed family / social / leisure activities because of [facility] 1 Total 6 MIDAS grade (use total of Q1 to 5) I: 0-5, little to no disability II: 6-10, mild disability III: 11-20, moderate disability IV: 21+, severe disability A. # of days in the last 3 months with a [facility] (count each day if [facility] lasted > 1 day) 8 B. Average [facility] intensity (0-10) 6 Follow-up Questions on CGRP Inhibitor Therapy: Current therapy: Aimovig 140mg/ml every 30 days Number of months using current therapy: 9 How many migraine days per month did you have before using current therapy: 12/13 How many migraine days per month have you had since starting current therapy: Have you noticed that your migraines are not as severe since starting current therapy: yes Have you used less of your abortive / rescue medications (triptans, NSAID, etc) since starting current therapy: yes Are your abortive / rescue medications working better to abort migraines since starting current therapy? yes Do you think the current therapy is helping? yes, definitely! Pt understands no changes to current drug regimen were made at the appointment and that [facility] is completing an assessment (summary located at top of note) for provider review and follow up. Robyn Vasquez RPH 06/01/19 1:36 PM documented in this encounter Plan of Treatment Upcoming Encounters Date Type Specialty Care Team Description 04/14/2022 Office Visit Neurology Cameron Alves MD [facility] [address] [place], [place] [address] (Wo rk) documented as of this encounter Goals Goal Patient Goal Associated Recent Patient-Stated? Author Type Problems Progress DH Home Medication Patient No Kendrick ridley, Compliance and Facing Kan P, Understanding Action Plan [facility] [...] on filedocumented in this encounter Care Teams Fuse Assembler Relationship Specialty Start Date End Date Lolis Moss MD PCP - General General Internal Medicine 04/15/16 [address] [facility] [address] KARINA [place] [address] documented as of this encounter
--- OUTSIDE RECORDS SUMMARY | 2022-03-18 11:32 | XMS_ITS | Encounter Summary ---
:1970 Author Organization [facility] [place] [address] Care Team Providers Name Role Phone Lolis Moss MD Primary Care Provider Encounter Details Date Type Department Care Team Description 01/24/2019 Telephone Psychiatry and Behavioral [place] [address] [place] [phone] Social History Tobacco Use Types Packs/Day Years [...] Telephone Encounter - Debra Munguia MD - 01/24/2019 11:54 AM EDT Called pt at [phone] re: lab results obtained yesterday. Reached voicemail. Left message. Awaiting callback. Also tried [phone] (listed as home phone). Reached , who confirms that the first number is pt's cell number. Results indicate that lipids, specifically triglycerides, total chol, and LDL are elevated. HDL below target. Would recommend fasting lipid panel to get more accurate levels. Awaiting callback from pt. Also sending eDH message to pt recommending repeat fasting. documented in this encounter Plan of Treatment Upcoming Encounters Date Type Specialty Care Team Description 04/14/2022 Office Visit Neurology Cameron Alves MD [facility] [place], [place] [address] (Wo rk) documented as of [...] on filedocumented in this encounter Care Teams Information Systems Security Developer Relationship Specialty Start Date End Date Lolis Moss MD PCP - General General Internal Medicine 04/15/[address] [facility] [address] KARINA [place] [address] documented as of this encounter
--- OUTSIDE RECORDS SUMMARY | 2022-03-18 11:32 | XMS_ITS | Encounter Summary ---
:1970 Author Organization [facility] [place] [address] Care Team Providers Name Role Phone Lolis Moss MD Primary Care Provider Reason for Visit Reason Comments Medication Management Encounter Details Date Type Department Care Team Description 12/12/2018 Specialty Pharmacy Pharmacy at [facility] Kan Shepherd [facility] [place], [place] [address] Social History Tobacco Use Types Packs/Day Years Used Date Former Smoker Cigarettes 0.5 15 Quit: 08/30/19 18 Smokeless Tobacco: Never Used Comments: Started smoking at 45 Alcohol Use Standard Drinks/Week Comments Not Currently 0 (1 standard drink = 0.6 oz pure alcoho l) Sex Assigned at Date Recorded Not on file documented as of this encounter Progress Notes Kan Shepherd [facility] - 12/12/2018 12:39 PM EDT Clinical Management Plan: Refill w MIDAS Assessment Specialty Pharmacy Consultation; Kan Shepherd [facility] Comprehensive Medication Management (CMM) Lisseth Boone is [...] patient 5-7 days prior to next refill. Most Recent MIDAS: as follows Migraine Disability Assessment # of days in the past 3 months 1. Missed work / school because of [facility] 4 2. Productivity at work / school reduced by > half because of [facility] (do not count days from Q.1) 0 3. Did not do housework because of [facility] 0 4. Productivity in household work reduced by > half because of [facility] (do not count days from Q.3) 0 5. Missed family / social / leisure activities because of [facility] 0 Total 4 MIDAS grade (use total of Q1 to 5) I: 0-5, little to no disability II: 6-10, mild disability III: 11-20, moderate disability IV: 21+, severe disability A. # of days in the last 3 months with a [facility] (count each day if [facility] lasted > 1 day) 4 B. Average [facility] intensity (0-10) 9 Follow-up Questions on CGRP Inhibitor Therapy: Current therapy: AIMOVIG 140mg q 30 days Number of months using current therapy: 3 How many migraine days per month did you have before using current therapy: 30 How many migraine days per month have you had since starting current therapy: 4 Have you noticed that your migraines are not as severe since starting current therapy: yes Have you used less of your abortive / rescue medications (triptans, NSAID, etc) since starting current therapy: yes Are your abortive / rescue medications working better to abort migraines since starting current therapy? yes Do you think the current therapy is helping? yes Was a change made to the Care Plan: yes - need to change to 140mg single dose injection - contactingMD Assessment and Recommendations: Title Type of Medication Management: chronic disease management, targeted medication review Referred By: provider Recipient: beneficiary Provider: plan sponsor pharmacist Method of Contact: by telephone Cognitive Ability: good Allergies and Drug intolerance: Allergies Allergen Reactions ??? Pollen Extracts Medication Reconciliation Discrepancies (compared to [facility] med list) - none New medications: no New medical conditions: no New allergies: no Adherence: Medication Adherence Patient reported X missed doses in the last month: all Any gaps in refill history greater than 2 weeks in the last 3 months: yes Demonstrates understanding of importance of adherence: yes Informant: patient Reliability of informant: reliable Provider-estimated medication adherence level: 0-25% Other non-adherence reason: pt believes medication was stolen Adherence tools used: directed education Confirmed plan for next specialty medication refill: delivery by pharmacy Are you experiencing any side effects from your medications? no Pt understands no changes to current drug regimen were made at the appointment and that [facility] is providing recommendations (summary located at top of note) for provider review and follow up. Kan Shepherd RPH 12/12/18 12:42 PM documented in this encounter Plan of Treatment Upcoming Encounters Date Type Specialty Care Team Description 04/14/2022 Office Visit Neurology Cameron Alves MD [facility] [place], [place] [address] (Wo rk) documented as of [...] on filedocumented in this encounter Care Teams Dog Pound Attendant Relationship Specialty Start Date End Date Lolis Moss MD PCP - General General Internal Medicine 04/15/16 0 [facility] [address] [place]AR[facility] [place] [address] documented as of this encounter
--- OUTSIDE RECORDS SUMMARY | 2022-03-18 11:32 | XMS_ITS | Encounter Summary ---
:1970 Author Organization [facility] [place] [address] Care Team Providers Name Role Phone Lolis Moss MD Primary Care Provider Reason for Visit Reason Comments Medication Refill Encounter Details Date Type Department Care Team Description 04/04/2019 Refill Internal Medicine at [facility] [address] [place] [address] [facility] PRIMARY C[facility] [place], [place] [address] (Wo rk) Social History Tobacco [...] MD [facility] [place], [place] [address] (Wo rk) documented as of [...] unspecified documented in this encounter Care Teams Crusher Operator Relationship Specialty Start Date End Date Lolis Moss MD PCP - General General Internal Medicine 04/15/16 [address] [facility] [address] KARINA [place] [address] documented as of this encounter
--- OUTSIDE RECORDS SUMMARY | 2022-03-18 11:32 | XMS_ITS | Encounter Summary ---
:1970 Author Organization [facility] Address [facility] [place] [address] Care Team Providers Name Role Phone Franko Moss MD Primary Care Provider Reason for Visit Reason Comments Other Pelvic and breast exam Encounter Details Date Type Department Care Team Description 06/29/2019 Office Visit Internal Medicine at Franko Moss Abn ormal uterine bleeding (AUB); [facility] Kolton Gimenez MD Breast mass; [address] [facility] Weight loss; [place], [place] Hematuria, unspecified type [id number] [phone] [facility] [place], [place] [address] Social History Tobacco Use Types [...] Sign Reading Time Taken Comments Blood Pressure 142/85 06/29/2019 1:30 PM EST Pulse 106 06/29/2019 1:30 PM EST Temperature 36.9 ??C (98.4 ??F) 06/29/2019 1:30 PM EST Respiratory Rate 20 06/29/2019 1:30 PM EST Oxygen Saturation 99% 06/29/2019 1:30 PM EST Inhaled Oxygen Concentration - - Weight 53.1 kg (117 lb) 06/29/2019 1:30 PM EST with ciara es Height - - Body Mass Index 20.73 03/20/2019 4:04 PM EDT documented in this encounter Progress Notes Franko Moss MD - 06/29/2019 1:20 PM EST Breast lump and irregular vaginal bleeding And many other concerns Blood pressure 140/85--she worries to orin Feels that something is not right in the pelvis area Having pain with intercourse which is new Had intercourse the other night pass blood with urine With some brown spotting Has an on going vaginal discharge--white, scant Having some cramping and spotting Having periods, they have been irregular Period about three weeks ago Before skipped a period Was treated for abnl PAPs, 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 Found a lump in her breast Right breast An area of tenderness in the right breast About three weeks ago injured the right side when moving Not sure why the weight loss Did started Topmax--she feels it is working well, no spells She is eating Has an appetite Swallowing ok Breathing is ok, no cough No chest pains No nausea or vomiting Bowels are working, does get constipated, some hemorroidal bleeding Some aches and pain, but not unusual aches and pain There is lots of stress Defending credentials to state of [place] Has had two friends recently with cancer (blood cancer, lung cancer) PE BP 142/85 (BP Location (NBP): Right arm, Patient Position: Sitting, BP Cuff Sizes: Adult (25-34 cm)) Pulse (!) 106 Temp 36.9 ??C (98.4 ??F) (Temporal) Resp 20 Wt 53.1 kg (117 lb) Comment: with shoes SpO2 99% BMI 20.73 kg/m?? Looked worried, but thin General: looks well, comfortable Eyes: Sclera white Ears: TMs clear, no cerumen Oral Pharynx: No redness or lesions Neck: No adenopathy or masses, Chest: Nl AP diameter Breast: Symmetric,no axially adenopathy She does have lumpy breasts, her area of concern is a 0.5cm nodule right breast 10 o'clock at the edge of the beast. It is tender, soft, moble Lungs: Clear without wheezing or rales, Inspiratory more than expiratory Heart: PMI not displaced, Reg rhythm, no MRG, Abdomen: Bowel sounds present, no tenderness, no masses, no HSM, no inguinal adenopathy Pelvic: Atrophic external genitalia, vaginal mucosa atrophic without discharge, cervix freely mobile, no CMT, has some nabothian cysts, Uterus small, no adnexal masses Extremities: No edema, peripheral pulses intact Rheumatologic: No active synovitis Neurologic: nonfocal A/P 1. Breast lesion--will followup with mammo and US 2. Irregular bleeding and dysparunia--PAP sent, will get transvaginal US She is atrophic and had mod tammy FSH, will wait on results to decide if BULL GANG SUPERVISOR visit is needed 3. Weigh loss. She does have many stressors. Will check labs and follow to decide if more imaging isneeded documented in this encounter Plan of Treatment Upcoming Encounters Date Type Specialty Care Team Description 04/14/2022 Office Visit Neurology Cameron Alves MD [facility] [address] [place] [address] (Wo rk) documented as of [...] Procedure Name Priority Date/Time Associated Comments Diagnosis HC VENIPUNCTURE Routine 06/29/2019 3:06 Weight loss Results f or this PM EST procedure are i n the results section. HEMOGRAM Routine 06/29/2019 3:06 Abnormal uterine Results for this PM EST bleeding (AUB) procedure are in Weight loss the results section. DIFFERENTIAL, AUTOMATED Routine 06/29/2019 3:06 Abnormal uteri ne Results for this PM EST bleeding (AUB) procedure are in Weight loss the results section. HC CBC,PLT & AUTO DIFF Routine 06/29/2019 3:06 Abnormal uterin e PM EST bleeding (AUB) Weight loss URINALYSIS MICROSCOPIC Routine 06/29/2019 2:30 Re sults for this EXAM PM EST procedure are i n the results section. URINALYSIS WITH REFLEX Routine 06/29/2019 2:30 Hematuria, Re sults for this CULTURE PM EST unspecified type procedure a re in the results section. HPV Routine 06/29/2019 2:00 Results for this PM EST procedure are i n the results section. BULL GANG SUPERVISOR CYTOLOGY Routine 06/29/2019 2:00 Results for this INTERPRETATION PM EST procedure are in the results section. BULL GANG SUPERVISOR CYTOLOGY FINAL Routine 06/29/2019 2:00 Result s for this REPORT PM EST procedure are i n the results section. CYTOPATHOLOGY Routine 06/29/2019 2:00 Abnormal uterine Results for this GYNECOLOGICAL PM EST bleeding (AUB) procedure ar e in the results section. documented in this [...] screening. As discussed with the patient [employer] and Th [employer] Society [...] report, please contact e number below. ? Franko Moss MD IMG MAMMO ORDERABLES Mammo Diagnostic CAD and Vincent Bilateral (07/26/2019 10:00 AM EST) Anatomical Region [...] screening. As discussed with the patient [employer] and [facility] Society of Breast Imaging recommend annual [...] For questions regarding this report, please contact [facility] number below. ? Franko Moss MD IMG MAMMO ORDERABLES (ABNORMAL) US Transvaginal Non OB (07/26/2019 9:09 [...] report, please contact t he number below. 9 :39 AM ?Brigette Guidry, Polina on license of [facility] Chief Electronically Signed Final Report ?? 09:45 am Narrative 07/26/2019 9:45 AM EST Gynecological Report ?(Signed Final 07/26/2019 09:45 am) PATIENT INFO: ID #: ? [id number] ?: ??[birth year] (49 yrs) Name: ? LISSETH Angel SLICER ? Visit Date: 07/26/2019 08:45 am PERFORMED BY: Performed By: ? Jessica Green RDMS Attending: ?Chao FRANK, Brigette Sosa Resident: ? Hiren FRANK, Gianni Trinh Referred By: ?FRANKO MOSS Location: ? [place] SERVICE(S) PROVIDED: ??UTV - Transvaginal - [id number] ?[id number] INDICATIONS: ??irregular bleeding, post coital bleed ing [...] Comment Unexpected Finding Franko Moss MD IMG PELVIC ORDERABLES Differential, Automated (06/29/2019 3:06 PM EST) athologist Signature Neutrophils % 53.5 % [facility] Neutr Abs (ANC) 3.28 1.70 - [facility] 6.10 [facility] x10(3)/[facility] LABORATORY Lymphocytes % 31.5 % [facility] Lymphocytes Abs 1.9 0.9 - 3.2 [facility] x10(3)/[facility] LABORATORY Monocytes % 5.1 % [facility] Monocyte Abs 0.3 0.3 - 0.9 [facility] x10(3)/[facility] LABORATORY Eosinophils % 7.3 % [facility] Eosinophils Abs 0.4 0.0 - 0.4 [facility] x10(3)/[facility] LABORATORY Basophils % 2.3 % [facility] Basophils Abs 0.1 0.0 - 0.1 [facility] x10(3)/[facility] LABORATORY Immature Gran % 0.30 % [facility] Comment: Immature granulocytes(IG's)percentage an d absolute count will include metamyelocytes, myelocytes, and promyelo cytes. Blood smears from CBCs yielding IG's will be scanned manually for concor dance. If this scan disagrees with the automated IG or if promyelocytes are not ed, a manual differential will be performed. Rosangela Gran Abs 0.02 0.00 - 0.04 x10(3)/[facility] Specimen Anatomical Collection Method Collection Time Receive d Time (Source) Location / / Volume Laterality Blood specimen 06/29/2019 3:06 PM 019 4:02 (specimen) EST PM EST Resulting Agency Comment Spec In Lab Franko Moss MD HEMATOLOGY ORDERABLES Performing Organization Address City/State/[place] [address] (ABNORMAL) Hemogram (06/29/2019 3:06 PM EST) Analysis Performed At Patho logist Time Signature WBC 6.1 4.0 - 9.5 [facility] x10(3)/[facility] LABORATORY RBC 3.67 (L) 4.00 - [facility] 5.21 [facility] x10(6)/[facility] LABORATORY Hemoglobin 12.0 11.7 - [facility] 15.5 gm/dL [facility] Hematocrit 36.4 35.7 - [facility] 45.8 % [facility] MCV 99.2 (H) 82.6 - DERICK VANCE 94.4 [facility] LABORATORY MCH 32.7 (H) 27.1 - DERICK DURANCK 32.0 pg [facility] MCHC 33.0 31.7 - [place] VANCE 35.0 gm/dL [facility] Platelets 337 145 - 357 DERICK SPENCER x10(3)/[facility] LABORATORY RDWSD 46.1 (H) 37.0 - [place] VANCE 46.0 [facility] RDWCV 12.6 11.5 - [place] VANCE 14.1 % [facility] MPV 12.9 7.6 - 12.9 [facility] LABORATORY nRBC % Auto 0.0 % [facility] nRBC Abs Auto 0.000 0.000 - D[place] VANCE 0.000 [facility] x10(3)/[facility] LABORATORY Specimen Anatomical Collection Method Collection Time Receive d Time (Source) Location / / Volume Laterality Blood specimen 06/29/2019 3:06 PM 019 4:02 (specimen) EST PM EST Resulting Agency Comment Spec In Lab Franko Moss MD HEMATOLOGY ORDERABLES Performing Organization Address City/State/[place] [address] (ABNORMAL) CMP w/fasting Glucose (06/29/2019 3:06 PM EST) P athologist Signature Glucose 88 65 - 99 [facility] Fasting mg/dL [facility] Comment: ?Fasting* Glucose Interpretive C riteria Normal ?65-99 mg/dL Impaired Fasting glucose ?100-125 mg/dL Consistent with Diabetes Mellitus ? >or= 126 mg/dL *Fasting is defined as no caloric intake for at least 8 hours In the absence of unequivocal hypergly cemia a plasma glucose value of >or= 126 mg/dL should be repeated on a subseq uent day. Diagnosis and Classification of Diabetes Mellitus, Position Statement from the [employer]. ??Diabete s Care, Volume 33, Supplement 1, Aug 2009 BUN 11 8 - 18 mg/dL [facility] Creatinine 0.84 0.70 - 1.20 mg/dL [facility] Sodium 140 135 - 145 mmol/L [facility] Potassium 3.6 3.5 - 5.0 mmol/L [facility] Comment: Please note: ??Patients with WBC >100,00 0 may have falsely elevated Potassium levels. ??For accurate Potassium quantif ication in these patients send serum separator tube (gold top) for subsequent determinations. ??Contact the Clinical Chemistry Laboratory if there are any qu estions. Chloride 108 (H) 98 - 107 mmol/L [facility] CO2 21 (L) 22 - 31 mmol/L [facility] Anion Gap 11 5 - 15 mmol/L [facility] Calcium 9.3 8.5 - 10.5 mg/dL [facility] Total Protein 7.2 6.1 - 8.0 gm/dL [facility] Albumin 4.6 3.2 - 5.2 gm/dL [facility] AST 9 0 - 30 unit/L [facility] ALT 6 0 - 30 unit/L [facility] Alk Phos 55 35 - 105 unit/L [facility] Total Bilirubin 0.2 0.2 - 1.3 mg/dL [facility] Estimated GFR 83 >=60 mL/min/1.73 m?? [facility] Comment: The eGFR was calculated using the CKD-EP I equation. As with all creatinine based estimates of kidney function, eGFR values calculated with the CKD-EPI equation are not accurate in patients wi th acute kidney failure, extremes of body mass or the acutely ill. http://[employer]/DHMCnkf eGFR 96 >=60 mL/min/1.73 m?? [facility] Comment: The eGFR was calculated using the CKD-EP I equation. As with all creatinine based estimates of kidney function, eGFR values calculated with the CKD-EPI equation are not accurate in patients wi th acute kidney failure, extremes of body mass or the acutely ill. http://[employer]/DHMCnkf Specimen Anatomical Collection Method Collection Time Receive d Time (Source) Location / / Volume Laterality Blood specimen 06/29/2019 3:06 PM 019 7:04 (specimen) EST PM EST Resulting Agency Comment Spec In Lab Franko Moss MD CHEMISTRY ORDERABLES Performing Organization Address City/[facility]/[place] [address] (ABNORMAL) Urinalysis Microscopic Exam (06/29/2019 2:30 PM EST) P athologist Signature RBC UA 6 (H) 0 - 4 /HPF [facility] WBC UA 2 0 - 5 /HPF [facility] Squam Epith UA 5 (H) <=4 /HPF [facility] Hyaline Cast 5 (H) 0 - 2 /LPF [facility] Specimen (Source) Anatomical Collection Method Collection Time Re ceived Time Location / / Volume Laterality Urine specimen 06/29/2019 2:30 06/29/2019 6:04 obtained by clean PM EST PM EST catch procedure (specimen) Resulting Agency Comment Spec In Lab Franko Moss MD URINE ORDERABLES Performing Organization Address City/[facility]/[place] [address] (ABNORMAL) Urinalysis with reflex Culture (06/29/2019 2:30 PM EST) Patholo gist Method Time Signature Glucose UA Negative Negative [facility] mg/dL [facility] Protein UA Negative Negative [facility] mg/dL [facility] Bilirubin UA Negative Negative [facility] mg/dL [facility] Comment: Clinical correlation required for positi ve Urine Bilirubin results as false positive may occur with some drugs and d rug related products. If a false positive is suspected a serum total bili kelly should be considered if clinically indicated. Urobilinogen UA Normal Normal mg/dL [facility] pH UA 7.5 5.0 - 8.0 [facility] Blood UA Negative Negative mg/dL [facility] Ketones UA Negative Negative mg/dL [facility] Nitrite UA Negative Negative [facility] Leukocytes UA Trace (A) Negative [facility]OR[facility]ORY Appearance UA Clear Clear [facility] Spec [place] UA 1.017 1.002 - 1.030 [facility] Color UA Yellow Yellow [facility] Culture Reflexed No [facility] Specimen (Source) Anatomical Collection Method Collection Time Re ceived Time Location / / Volume Laterality Urine specimen 06/29/2019 2:30 06/29/2019 6:04 obtained by clean PM EST PM EST catch procedure (specimen) Resulting Agency Comment Spec In Lab Franko Moss MD URINE ORDERABLES Performing Organization Address City/State/[place] [address] Head Housekeeper Cytology Final Report (06/29/2019 2:00 PM EST) Component Value Ref Test Analysis Performed At [facility] gist Range Method Time Signature Head Housekeeper Cytology [id number] ? Location: [facility] Final Report SPENCER The signing pathologist has (i) examined the relevant preparation(s) for the [facility] specimen(s) and (ii) rendered or confirmed the diagnosis(es) . HOSPITAL LABORATORY . ? Head Housekeeper Final DIAGNOSIS Infection and/or Reactive Repair Process Note: Reactive changes are p resent in the epithelial cells (benign cellular changes). This Pap test is negative for intraepithelial lesion or m alignancy. (NILM) For consensus guidelines for the management of c ervical cancer screening test results, please see: ?? http://www.asccp.org . Electronically signed by: ??Cindy Fermin MD Verified: ??07/11/2019 ?Pathologist Performed at: ??-[facility] Dept. of Pathology, [place], [place] DISCUSSION Shift in tashi suggestive of bacterial vaginosis. HPV RESULTS HPV16 (Result) ?Negative HPV18 (Result) ?Negative HPVOHR (Result) ? Negative HPV (Interpretation) ?See Below HPV (Interpretation) Text: NEGATIVE for high-risk HPV *. *Testing negative for high risk HPV means that the specimen is negative for the following 14 types tested: types 16, 18, 31, 33, 35 , 39, 45, 51, 52, 56, 58, 59, 66, and 68. The test is not intended to detect low risk HPV types. Ike melony HPV test Specimen: HPV Testing - Cytology Liquid Based Prep The Ike melony ? HPV ct t was validated, performed and results reported through the Laboratory for Clinical Gen omics and Advanced Technology (CGAT) at [facility]. ? - Bright Ga, PhD, [facility], Director-CGAT STATEMENT OF ADEQUACY Specimen submitted is satisfactory. Endocervical component present. CLINICAL INFORMATION HPV Option: ?Concurrent HPV and Pap CT/NG Option: ?No Preparation: ? Liquid based Pap Specimen Source: ? Cervical/Vaginal LMP: ?Jun 08, 2019 Hysterectomy: ?No : ?No : ?No I.U.D.: ?No Pelvic Radiation: ?No Hist Abnl Pap/Biopsy: ?Yes, history of previous abnormal Pap Prior BULL GANG SUPERVISOR Therapy: ? Cryotherapy Hist of HPV Vaccine: ? No . CLINICAL INFORMATION ICD Diagnosis: ? Z12.4 Encounter for screening for malignant neoplasm of cervix Clinical Data, Significant Therapy and Clinical Impression ? ? : ?_ This Pap Test has been evalu ated with the assistance of the [employer] Pap Test Imaging System. Note: The Pap test is a screening test for cervical cancer with an inherent false-negative rate dependent upon several variables. For further information please contact the [facility] Laboratory. Reference: Mckenna ART. Beauty Operator Apprentice of Pap Smear Results. In: Dede BS, valeire Lynn. The Pap Smear. [place]: Thomas, 2002: 71-77. Specimen (Source) Anatomical Collection Method Collection Time Re ceived Time Location / / Volume Laterality 06/29/2019 2:00 PM EST Franko Moss MD PATHOLOGY/CYTOLOGY ORDERABLE S Performing Organization Address City/[facility]/ZIP Code Phon e Number [address] BULL GANG SUPERVISOR Cytology Interpretation (06/29/2019 2:00 PM EST) [facility] Method Time Signature Head Housekeeper Cytology NILM [facility]ORY Comment: Head Housekeeper Cytology Final Report Acces benny: [id number] Head Housekeeper Cytology Comment Present [facility] Endocervical Component Present [facility] Specimen Anatomical Collection Method Collection Time Receive d Time (Source) Location / / Volume Laterality AP Specimen 06/29/2019 2:00 PM 9 8:38 EST AM EST Franko Moss MD PATHOLOGY/CYTOLOGY ORDERABLE S Performing Organization Address City/[facility]/[place] [address] HPV (06/29/2019 2:00 PM EST) [facility] Method Time Signature HPV 16 NEGATIVE NEGATIVE [facility] HPV 18 NEGATIVE NEGATIVE [facility] HPV Other HR NEGATIVE NEGATIVE [facility] HPV See Comment DERICK Interpretation [facility] Comment: NEGATIVE for high-risk HPV *. * Testing negative for high risk HPV jennifer ns that the specimen is negative for the following 14 types tested: ??types 1 6, 18, 31, 33, 35, 39, 45, 51, 52, 56, 58, 59, 66, and 68. ??The test is not in tended to detect low risk HPV types. Ike Melony HPV test Specimen: HPV Testing - Cytology Liquid Based Prep Specimen Anatomical Collection Method Collection Time Receive d Time (Source) Location / / Volume Laterality Cervical swab 06/29/2019 2:00 PM 06/29/20 19 6:20 (specimen) EST PM EST Resulting Agency Comment Spec In Lab Franko Moss MD PATHOLOGY/CYTOLOGY ORDERABLE S Performing Organization Address City/State/[place] [address] Cytopathology Gynecological (06/29/2019 2:00 PM EST) Specimen Anatomical Collection Method Collection Time Receive d Time (Source) Location / / Volume Laterality AP Specimen 06/29/2019 2:00 PM 9 6:04 EST PM EST Narrative [facility] - 06/29/2019 6:04 PM EST Specimen requisition ordered. ??Separate Pathology report to follow Resulting Agency Comment Spec In Lab Franko Moss MD PATHOLOGY/CYTOLOGY ORDERABLE S Performing Organization Address City/State/[place] [address] documented in this encounter Visit Diagnoses Diagnosis Abnormal uterine bleeding (AUB) Breast mass Lump or mass in breast Weight loss Loss of weight Hematuria, unspecified type Hematuria, unspecified type Breast mass Lump or mass in breast Breast mass Lump or mass in breast documented in this encounter Care Teams Microfilm Clerk Relationship Specialty Start Date End Date Franko Moss MD PCP - General General Internal Medicine 04/15/16 0 [facility] [address] [facility] [place] [address] documented as of this encounter
--- OUTSIDE RECORDS SUMMARY | 2022-03-18 11:32 | XMS_ITS | Encounter Summary ---
:1970 Author Organization [facility] Address [facility] [place] [address] Care Team Providers Name Role Phone Lolis Moss MD Primary Care Provider Reason for Visit Reason Onset Date Comments Medication Refill 12/21/2018 Encounter Details Date Type Department Care Team Description 12/21/2018 Refill Neurology at [facility] Cameron Alves, Migraine with aura and [facility] MD without status Drive [facility] migrainosus, [place] [address] mendes [phone] [place], [place] [address] (Ankit mckeon) Social History Tobacco [...] Cameron Alves MD [facility] er [place] [address] (Wo rk) documented as of [...] migrainosus documented in this encounter Care Teams [place] Assembler Relationship Specialty Start Date End Date Lolis Moss MD PCP - General General Internal Medicine 04/15/[address] [facility] [place] [address] documented as of this encounter
--- OUTSIDE RECORDS SUMMARY | 2022-03-18 11:32 | XMS_ITS | Encounter Summary ---
:1970 Author Organization [facility] [place] [address] Care Team Providers Name Role Phone Lolis Moss MD Primary Care Provider Encounter Details Date Type Department Care Team Description 12/12/2018 Refill Neurology at [facility] Cameron Alves MD [facility] [place] [address] [place] [address] [phone] (Wo rk) Social History Tobacco Use Types [...] [facility] er [place] [address] [...] on filedocumented in this encounter Care Teams Transitions Rn Care Coordinator Relationship Specialty Start Date End Date Lolis Moss MD PCP - General General Internal Medicine 04/15/16 [address] [facility] [address] [facility]AR[facility] [place] [address] documented as of this encounter
--- OUTSIDE RECORDS SUMMARY | 2022-03-18 11:32 | XMS_ITS | Encounter Summary ---
:1970 Author Organization [facility] [place] [address] Care Team Providers Name Role Phone Lolis Moss MD Primary Care Provider Reason for Visit Reason Onset Date Comments Medication Refill 12/07/2018 Encounter Details Date Type Department Care Team Description 12/07/2018 Refill Psychiatry and Behavioral Temitope Willis, RN [facility] at [facility] [place] [address] Social History Tobacco Use Types Packs/Day [...] Alves MD [facility] [place] [address] (Wo rk) documented as of [...] filedocumented in this encounter Care Teams Process Artist Relationship Specialty Start Date End Date Lolis Moss MD PCP - General General Internal Medicine 04/15/16 [address] [facility] [place] [address] documented as of this encounter
--- OUTSIDE RECORDS SUMMARY | 2022-03-18 11:32 | XMS_ITS | Encounter Summary ---
:1970 Author Organization [facility] [place] [address] Care Team Providers Name Role Phone Lolis Moss MD Primary Care Provider Encounter Details Date Type Department Care Team Description 01/23/2019 Office Visit Psychiatry and Debra Munguia n, unspecified depression type; Behavioral Health at [facility] [place] ELIANA (generalized anxiety disorder); [facility] [place] [address] [place], [place] [phone] (Work) [phone] Social History Tobacco Use Types Packs/Day Years Used Date Former Smoker Cigarettes 0.5 15 Quit: 08/30/19 18 Smokeless Tobacco: Never Used Comments: Started smoking at 45 Alcohol Use Standard Drinks/Week Comments Not Currently 0 (1 standard drink = 0.6 oz pure alcoho l) Sex Assigned at Date Recorded Not on file documented as of this encounter Progress Notes Debra Munguia MD - 01/23/2019 2:00 PM EDT Outpatient Psychiatry Follow Up 01/23/2019 Lisseth Boone,a 48 y.o. female, for medication f/u. HPI: Since last visit, started thesis class, which has been stressful. Is close to being done. 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 Son graduated from college and is now home. He's a calming influence. Daughter is entering shobha year of , unsure of what path she'll take. Mood has been going really well. Functioning at home has been fine. Doing really well. No dissociative episodes since last visit. Sleep was hampered by the stress involved in taking the class. I was having nightmares about research.... I think that was normal. Now sleeping normal, 6-8 hours nightly. Concentration is really good. Energy is pretty good. Has started walking again for fun andplanning some hikes with her kids. No SI/HI. No EtOH intake. No tobacco. No MJ or other illicit drug use. Has not been seeing therapist due to school - That's taken up all my free time until now. Plans toreengage once school is done. Reports the klonopin taper has been working fine. Labs 04/11/2018 Lipid panel notable for triglycerides in borderline high risk range at 170, LDL in lower risk category at 102 Hgb A1c 4.7 Current meds: Klonopin 0.625mg TID Cymbalta 60mg BID (prescribed by PCP) Seroquel 50-100mg QHS (typically takes 100mg) topiramate 100mg BID (prescribed by Neurology) Varenicline History (from intake, updated where appropriate): Past Psychiatric History: Previous psychiatric treatment and medication trials: Lexapro - stopped long ago Zyprexa - stopped while inpt at [facility] [place] (and dx of delirium felt more likely than psychosis), but laterrestarted by PCP; felt it helped her mood swings Lamotrigine - stopped while inpt at [facility] [place] (and dx of delirium felt more likely than psychosis or BPAD) Wellbutrin - stopped during admission to [facility] Previous psychiatric hospitalizations: During the summer of 2015, pt was admitted to both [facility] [place] [place] and [facility] during episodes characterized by extreme paranoia, [...] BX performed by David Hardy MD at [facility] ENDOSCOPY ??? PRO UPPER GI ENDOSCOPY, BIOPSY N/A 02/11/2016 UPPER GASTROINTESTINAL ENDOSCOPY,WITH BIOPSY SINGLE OR MULTIPLE performed by David Hardy MD at [facility] ENDOSCOPY ??? TUBAL LIGATION (Not in a hospital admission) Allergies Allergen Reactions ??? Pollen Extracts Social History Tobacco Use ??? Smoking status: Former Smoker Packs/day: 0.50 Years: 15.00 Pack years: 7.50 Types: Cigarettes Last attempt to quit: 08/30/2017 Years since quittin.4 ??? Smokeless tobacco: Never Used ??? Tobacco [...] movements Speech: Normal rate, rhythm, prosody Mood: Doing really well Affect: Reserved Thought Process: Linear, goal-directed Thought Content: Denies [...] No episodes since increase in topamax dose. Pt tolerating ongoing klonopin wean. Further reports good mood and functioning, despite a significant stressor of school. In agreement to continue current plan. Treatment Plan/Recommendations: - Continue Quetiapine 100mg QHS - Continue duloxetine (prescribed by PCP) - Continue Klonopin 0.625 mg TID - Continue klonopin taper of decreasing by 0.125mg daily per month - f/u lipid panel, hgb A1c - RTC 2mo Safety: The patient does not appear to [...] Debra Munguia MD Jayla Amaya MD - 01/23/2019 2:00 PM EDT PSYCHIATRY TEACHING PHYSICIAN INVOLVEMENT Location: Adult Psychiatry Medication Clinic, [facility] [place] [place] 5D Attending Physician: Jayla Amaya MD Resident name: [...] seizure on differential for prior dissociative episodes. Continues to do well, with no more dissociative episodes since being on the topamax. Continues with slow taper of Klonopin. Finishing up thesisand applying for jobs. No suicidal or homicidal ideation. No urges to self harm. No substance abuse. . JAYLA AMAYA MD documented in this encounter Plan of Treatment Upcoming Encounters Date Type Specialty Care Team Description 04/14/2022 Office Visit Neurology Cameron Alves MD [facility] [address] [place], [place] [address] (Wo rk) documented as of this encounter Goals Goal Patient Goal Associated Recent Patient-Stated? Author Type Problems Progress DH Home Medication Patient No Kendrick ridley, Compliance and Facing Kan Restrepo, Understanding Action Plan [facility] Note: Formatting of this note might be d ifferent from the original. Patient's specific desired goal: to have fewer headaches and to use less adjunct / rescue medication Measured by: calendar, frequency of use of adjunct / rescue meds Time-frame to meet goal: 90-150 days documented as of this encounter Results Hemoglobin A1c (01/23/2019 2:54 PM EDT) athologist Signature Hemoglobin A1C 4.9 4.3 - 5.6 [facility] Comment: Reference Range: 4.3 - 5.6% [...] Mellitus, Diabetes Care 2013; 36: Suppl. 1, S67-74 Est Avg Gluc 94 mg/dL [facility] Comment: eAG equivalents for HbA1c percentages: HbA1c(%) ?eAG(mg/dL) 6.0 ?126 6.5 ?140 7.0 ?154 7.5 ?169 8.0 ?183 8.5 ?197 9.0 ?212 9.5 ?226 10.0 ? 240 Limitations: The eAG calculation has not been validated on women, individuals below 18 years old and above 70 years old, and individuals with hemoglobinopathies. Additional resources are available on e ADA website. Familia GILMAN, Ute J, Joyce R, et al. ??Tr anslating the A1C assay into estimated average glucose values. ??Diabetes Care 2008:31(8):0820-9311. Specimen Anatomical Collection Method Collection Time Receive d Time (Source) Location / / Volume Laterality Blood specimen 01/23/2019 2:54 PM 019 3:01 (specimen) EDT PM EDT Resulting Agency Comment Spec In Lab Jayla Amaya MD CHEMISTRY ORDERABLES Performing Organization Address City/State/[place] [address] Lipid Panel (01/23/2019 2:54 PM EDT) athologist Signature Chol, Total 203 mg/dL [facility] Comment: Lower Risk: <200 mg/dL Average Risk: 200-239 mg/dL Higher Risk: >dp=445 mg/dL Triglycerides 177 mg/dL [facility] Comment: Average Risk/Lower Risk: <150 mg/dL Borderline High Risk: 150-199 mg/dL High Risk: 200-499 mg/dL Very High Risk: >ii=785 mg/dL HDL 48 mg/dL [facility] Comment: Males: ?? Higher Risk: <40 mg/dL Females: ?? HIgher Risk: <50 mg/dL LDL Cholesterol 120 mg/dL [facility] Comment: Lowest Risk: <100 mg/dL Lower Risk: 100-129 mg/dL Borderline High Risk: 130-159 mg/dL High Risk: 160-189 mg/dL Very High Risk: >sd=860 mg/dL Chol/HDL Ratio 4.2 ratio [facility] Lipid Interpretation See Note [facility] Comment: Lipid management should be guided by a p atient? s ASCVD risk, goals and preferences. ACC/AHA Guidelines recommend high intens ity statin if clinical ASCVD or LDL greater than or equal to 190 mg/dL. http://GetSet.ProQuo/MBQ-KDR-Ngxvunkyp Adults aged 40-75 with LDL 70-189 mg/dL should have their 10 year ASCVD risk estimated with the ACC/AHA ASCVD risk es timator http://tools.acc.org/DXTJX-Rlnl-Tuaazaxp r/ Statin should be discussed if risk [...] EDT Resulting Agency Comment Spec In Lab Jayla Amaya MD CHEMISTRY ORDERABLES Performing Organization Address City/State/[place] [address] documented in this encounter Visit Diagnoses Diagnosis Depression, unspecified depression type ELIANA (generalized anxiety disorder) Generalized anxiety disorder Dissociation Dissociative disorder or reaction, unspe cified documented in this encounter Care Teams Customer Service Technician Relationship Specialty Start Date End Date Lolis Moss MD PCP - General General Internal Medicine 04/15/16 [address] [facility] [address] [place] [place] [address] documented as of this encounter
--- OUTSIDE RECORDS SUMMARY | 2022-03-18 11:32 | XMS_ITS | Encounter Summary ---
:1970 Author Organization [facility] [place] [address] Care Team Providers Name Role Phone Lolis Moss MD Primary Care Provider Reason for Visit Reason Comments Medication Management Encounter Details Date Type Department Care Team Description 11/17/2018 Specialty Pharmacy Pharmacy at [facility] Vince Medication Management [facility] [place] [address] Social History Tobacco Use Types Packs/Day Years Used Date Former Smoker Cigarettes 0.5 15 Quit: 08/30/19 18 Smokeless Tobacco: Never Used Comments: Started smoking at 45 Alcohol Use Standard Drinks/Week Comments Not Currently 0 (1 standard drink = 0.6 oz pure alcoho l) Sex Assigned at Date Recorded Not on file documented as of this encounter Progress Notes Jose De Jesus Clarke [facility] - 11/17/2018 1:30 PM EDT Clinical Management Plan: Refill Specialty Pharmacy Consultation; Jose De Jesus Clarke [facility] Comprehensive Medication Management (CMM) Lisseth Boone is a 48 y.o. (1970) female who was contacted in regard to a specialty medication refill reminder. Spoke with patient regarding aimovig. A review of the medication therapy was performed. The medication was Refilled as scheduled, and all medication related questions and concerns were addressed. The specialty pharmacy staff will follow up with the patient 5-7 days prior to next refill. Assessment and Recommendations: Title Type of Medication Management: chronic disease management Referred By: provider Recipient: beneficiary Provider: plan sponsor pharmacist Visit Type: [facility] Follow-up Method of Contact: by telephone Cognitive Ability: good Allergies and Drug intolerance: Allergies Allergen Reactions ??? Pollen Extracts Medication Reconciliation Discrepancies (compared to [facility] med list) -none reported New medications: no New medical conditions: no New allergies: no Adherence: Medication Adherence What concerns does the patient have in regards to their medications: States she was past due for injection, but last filled aimovig on 10/18/18, should be on track. Patient reported X missed doses in the last month: 0 Any gaps in refill history greater than 2 weeks in the last 3 months: no Demonstrates understanding of importance of adherence: yes Informant: patient Reliability of informant: reliable Provider-estimated medication adherence level: 90-100% Reasons for non-adherence: no problems identified Adherence tools used: directed education Confirmed plan for next specialty medication refill: delivery by pharmacy Refills needed for supportive medications: not needed Most Recent MIDAS: n/a Are you experiencing any side effects from your medications? yes constipation. Pt understands no changes to current drug regimen were made at the appointment and that [facility] is providing recommendations (summary located at top of note) for provider review and follow up. Jose De Jesus Clarke RPH 11/17/18 1:32 PM documented in this encounter Plan of Treatment Upcoming Encounters Date Type Specialty Care Team Description 04/14/2022 Office Visit Neurology Cameron Alves MD [facility] [address] [place], [place] [address] (Wo rk) documented as of [...] filedocumented in this encounter Care Teams Manager Of Drilling Relationship Specialty Start Date End Date Lolis Moss MD PCP - General General Internal Medicine 04/15/16 [address] [facility] [address] [facility] [place] [id number] documented as of this encounter
--- OUTSIDE RECORDS SUMMARY | 2022-03-18 11:32 | XMS_ITS | Encounter Summary ---
:1970 Author Organization [facility] [place] [address] Care Team Providers Name Role Phone Lolis Moss MD Primary Care Provider Encounter Details Date Type Department Care Team Description 10/31/2018 Laboratory Appointment Lab 3L [facility] Thrombocytosis; [facility] [place], [place] [address] Social History Tobacco Use Types Packs/Day Years [...] Alves MD [facility] [address] [place] [address] (Wo rk) documented [...] Name Priority Date/Time Associated Diagnosis Comme nts HEMOGRAM Routine 10/31/2018 1:10 PM Thrombocytosis Results for this EDT procedure are i n the results section. DIFFERENTIAL, Routine 10/31/2018 1:10 PM Thrombocytosis Result s for this AUTOMATED EDT procedure are i n the results section. CBC (WITH DIFF) Routine 10/31/2018 1:10 PM Thrombocytosis EDT documented in this encounter Results (ABNORMAL) Differential, Automated (10/31/2018 1:10 PM EDT) [facility] Method Time Signature Neutrophils % 46.0 % [facility] Neutr Abs (ANC) 3.18 1.70 - [facility] 6.10 [facility] x10(3)/[facility]AT[facility] Lymphocytes % 31.9 % [facility] Lymphocytes Abs 2.2 0.9 - [address] [facility] x10(3)/[facility] LABORATORY Monocytes % 6.9 % [facility] Monocyte Abs 0.5 0.3 - 0.9 [facility] x10(3)/[facility] LABORATORY Eosinophils % 12.7 % [facility] Eosinophils Abs 0.9 (H) 0.0 - 0.4 [facility] x10(3)/[facility] LABORATORY Basophils % 1.9 % [facility] Basophils Abs 0.1 0.0 - [address] [facility] x10(3)/[facility] LABORATORY Immature Gran % 0.60 % [facility] Comment: Immature granulocytes(IG's)percentage an d absolute count will include metamyelocytes, myelocytes, and promyelo cytes. Blood smears from CBCs yielding IG's will be scanned manually for concor dance. If this scan disagrees with the automated IG or if promyelocytes are not ed, a manual differential will be performed. Rosangela Gran Abs 0.04 0.00 - 0.04 x10(3)/[facility] Y [facility] Specimen Anatomical Collection Method Collection Time Receive d Time (Source) Location / / Volume Laterality Blood specimen 10/31/2018 1:10 PM 019 1:17 (specimen) EDT PM EDT Resulting Agency Comment Spec In Lab Lolis Moss MD HEMATOLOGY ORDERABLES Performing Organization Address City/State/ZIP Code Phon e Number [place] [id number] [address] (ABNORMAL) Hemogram (10/31/2018 1:10 PM EDT) Analysis Performed At Patho logist Time Signature WBC 6.9 4.0 - 9.5 [facility] x10(3)/[facility] LABORATORY RBC 3.72 (L) 4.00 - [facility]INK[facility] 5.21 [facility] x10(6)/[facility] LABORATORY Hemoglobin 12.0 11.7 - [facility] 15.[facility] gm/dL [facility] Hematocrit 35.0 (L) 35.7 - [facility] 45.8 % [facility] MCV 94.1 82.6 - [facility] 94.4 [facility] LABORATORY MCH 32.3 (H) 27.1 - [facility]INK[facility] 32.0 pg [facility] MCHC 34.3 31.7 - [facility] 35.0 gm/dL [facility] Platelets 377 (H) 145 - 357 [facility] x10(3)/[facility] LABORATORY RDWSD 44.4 37.0 - [facility] PINKY 46.0 [facility] LABORATORY RDWCV 12.9 11.5 - [facility] PINKY 14.1 % [facility] MPV 12.5 7.6 - 12.9 [facility] nRBC % Auto 0.0 % [facility] nRBC Abs Auto 0.000 0.000 - [facility] PINKY 0.000 [facility] x10(3)/[facility] LABORATORY Specimen Anatomical Collection Method Collection Time Receive d Time (Source) Location / / Volume Laterality Blood specimen 10/31/2018 1:10 PM 019 1:17 (specimen) EDT PM EDT Resulting Agency Comment Spec In Lab Lolis Moss MD HEMATOLOGY ORDERABLES Performing Organization Address City/[facility]/[place] [address] documented in this encounter Visit Diagnoses Diagnosis Thrombocytosis Essential thrombocythemia Fatigue, unspecified type documented in this encounter Care Teams Engineering Programmer Relationship Specialty Start Date End Date Lolis Moss MD PCP - General General Internal Medicine 04/15/16 0 [facility] [address] [place] [place] [address] documented as of this encounter
--- OUTSIDE RECORDS SUMMARY | 2022-03-18 11:32 | XMS_ITS | Encounter Summary ---
:1970 Author Organization [facility] [place] [address] Care Team Providers Name Role Phone Lolis Moss MD Primary Care Provider Reason for Visit Reason Onset Date Comments Medication Refill 03/10/2019 Encounter Details Date Type Department Care Team Description 03/10/2019 Refill Psychiatry and Behavioral Temitope Willis, RN Health at [facility] [place] [address] Social History Tobacco Use Types Packs/Day [...] Cameron Alves MD [facility] [address] [place] [address] (Wo rk) documented as of this encounter Goals Goal Patient Goal Associated Recent Patient-Stated? Author Type Problems Progress Home Medication Patient No Kendrick ridley, Compliance and Facing Kan Restrepo, Understanding Action Plan [facility] Note: Formatting [...] on filedocumented in this encounter Care Teams Distribution Operation Supervisor Relationship Specialty Start Date End Date Lolis Moss MD PCP - General General Internal Medicine 04/15/16 0 [facility] [address] [place] [place] [address] documented as of this encounter
--- OUTSIDE RECORDS SUMMARY | 2022-03-18 11:32 | XMS_ITS | Encounter Summary ---
:1970 Author Organization [facility] [place] [address] Care Team Providers Name Role Phone Lolis Moss MD Primary Care Provider Encounter Details Date Type Department Care Team Description 09/21/2018 Office Visit Neurology at [facility] Cameron Alves, Chronic migraine [facility] MD without aura, with [facility] intractable migraine, [place], [place] Dr juarez stated, with status [id number] [place] [address] migrainosus [phone] Social History Tobacco Use Types Packs/Day Years [...] Sign Reading Time Taken Comments Blood Pressure 102/74 09/21/2018 3:18 PM EST Pulse 108 09/21/2018 3:18 PM EST Temperature - - Respiratory Rate - - Oxygen Saturation - - Inhaled Oxygen Concentration - - Weight 61.7 kg (136 lb) 09/21/2018 3:18 PM EST Height 160 cm (5' 3) 09/21/2018 3:18 PM EST reported Body Mass Index 24.09 09/21/2018 3:18 PM EST documented in this encounter Progress Notes Cameron Alves MD - 09/21/2018 3:30 PM EST Neurology Headache Clinic Follow-up Visit ?09-21-18 Cancelled 01-25-18 ?? Last Visit: 05-12-17 ?? Pain today: 09/25 ? Interval Headache Hx: ?? This patient has recurrent psychosis with bipolar disorder, a chronic pain syndrome, and has had at least 38 medication trials. She was on mag B2, TPM, and candesartan, and I added CoQ10 and prn TRX inSept. She cancelled her appointments on 11/10/17 and 12/22/17. She has [employer] insurance. She has not had Botox. Dr. Ivory saw her on 09/07/18 & wondered whether the episodes could be epileptic. He ordered a 24 h EEG and increased her TPM. Her prevention meds are TPM, duloxetine, quetiapine, mag, CoQ10, and candesartan. Her prn is TRX. She is getting KAISER 3-5 times per week, using prn TRX. She has [employer], [employer]. MONOCLONAL ANTIBODY Note [facility] Neurology Headache Clinic Patient name: Lisseth Boone Date of : 1970 Patient Dx: [x] G43.7 chronic migraine without aura [] G43.9 episodic migraine without aura [] G43.0 migraine with aura Medication being requested: [x] Aimovig [] AJOVY [] Emgality Preferred Pharmacy: [facility], [facility] Lisseth Boone has had a lack of success with each of the three most effective anti-migraine prevention categories: antidepressants, anti-epilepsy drugs, and antihypertensives. The FDA has approved the use of Aimovig, Ajovy, & Emgality for the prevention of Chronic and Episodic Migraine. Does the patient have a latex allergy? no Severe constipation? No Allergies Allergen Reactions ??? Pollen Extracts Patient has tried and failed: Anti-seizure: [] Acetazolamide (Diamox) [] Carbamazepine (Tegretol) [] Clonazepam [x] Gabapentin (Neurontin) [x] Lamotragine (Lamictal) [] Levetiracetam (Keppra) [] Oxcarbazepine (Trileptal) [] Phenobarbital [] Phenytoin (Dilantin) [x] Pregabalin (Lyrica) [] Primidone [x] Sodium Valproate (Depakote) [x] Topiramate (Topamax) [] Zonisamide (Zonegran) Anti-Depressants: SSRI: [] Citalopram (Celexa) [] Escitalopram (Lexapro) [] Fluvoxamine (Luvox) [] Fluoxetine (Prozac) [] Paroxetine (Paxil) [x] Sertraline (Zoloft) SNRI: [] Desvenlafaxine (Pristiq/Khedezla) [x] Duloxetine (Cymbalta) [] Levomilnacipran (Fetzima) [] Milnacipran (Savella) [x] Venlafaxine (Effexor) TCA: [x] Amitriptyline (Elavil) [] Amoxapine [] Clomipramine (Anafranil) [] Desipramine (Norpramin) [] Doxepin (Sinequan) [] Imipramine (Tofranil) [] Maprotiline (Ludiomil) [] Nortriptiline (Pamelor) [] Protriptyline (Vivactil) [] Trimipramine (Surmontil) Other: [x] Trazodone [] Mirtazapine (Remeron) [] Bupropion (Wellbutrin) Anti-Hypertensives: WALESKA Inhibitors: [] Benazepril (Lotensin) [] Captopril [] Enalapril (Vasotec) [] Fosinopril [x] Lisinopril (Prinivil) [] Moexipril [] Perindopril (Aceon) [] Quinapril (Accupril) [] Ramipril (Altace) [] Trandolapril (Mavik) Alpha-1 Blockers [] Doxazosin [] Prazosin [] Tetrazosin Angiotensin II Receptor Blockers: [] Azilsartan (Edarbi) [x] Candesartan (Atacand) [] Eprosartan [] Irbesartan (Avapro) [] Losartan (Cozaar) [] Olmesartan (Benicar) [] Telmisartan (Misardis) [] Valsartan (Diovan) Beta Blockers [] Acebutolol (Sectral) [] Atenolol (Tenormin) [] Bisoprolol (Zebeta) [x] Metoprolol (Lopressor) [] Nadolol (Cogard) [] Nebivolol (Bystolic) [] Propranolol (Inderal) [] Timolol Triptans: [] Almotriptan (Axert) [] Eletriptan (Relpax) [] Frovatriptan (Frova) [] Naratriptan (Amerge) [x] Rizatriptan (Maxalt) [x] Sumatriptan (Imitrex) PO, [place], SQ [x] Sumatriptan/Naproxen (Treximet) [] Sumatriptan Nasal powder (Onzetra) [] Zomig nasal spray [] Zolmitriptan (Zomig) For CHRONIC Migraine Patients: Does the patient have medication overuse headache? [] YES [x] NO *If YES, the treatment plan will include tapering off the offending medications Does the patient have ? 15 KAISER days per month, of which at least 8 must be migraine days? [x] YES [] NO How many migraine days per month is patient experiencing? 31 How long do the migraines last? 24 hours How long has the patient had this diagnosis? 20 years Has patient tried and failed Botox? [] YES [x] NO Will patient be receiving both Botox and Aimovig simultaneously? [] YES [x] NO Will patient be receiving both Aimovig,AJOVY, & Emgality and another monoclonal antibody? [] YES [x] NO She has had at least 39 medication trials: ?? Prior Treatments: TCAs ?1. Amitriptyline Neuroleptics ?2. Olanzepine ?3. Promethazine ?4. Chlorpromazine ?5. Prochlorperazine Muscle relaxants ?6. Baclofen ?7. Cyclobenzaprine BZDs ?8. Clonazepam ?7. Zolpidem ?8. Midazolam Beta blockers ?9. Metoprolol Antihistamines ?10. Diphenhydramine ?11. Hydroxyzine AEDs ?12. LTG ?13. TPM ?14. GBP ?15. PGB ?16. VPA NSAIDs ?17. Ketorolac ?18. Indomethacin ?19. Ibuprofen ?20. ASA ?Excedrin ?21. Naproxen Other antideppresants ?22. Trazodone ?23. Bupropion Triptans ?24. Riza 5 ?25. Ivon 100 ?TRX Misc ?26. Scopolamine ?27. APAP Supplements ?28. B2 ?29. Mag ?30. CoQ10 Narcotics ?31. Oxycodone ?312. Fentanyl ?33. Hydromorphone ?34. Hydrocodone SNRIs ?35. Duloxetine ?36. Venlafaxine WALESKA ?37. Lisinopril ARBs ?38. Candesartan SSRIs ?39. Sertraline ?? New Health Issues: ??see HPI ?? New Family History: no ?? Past Medical History: Diagnosis Date ??? Anxiety ? Back pain ? Bipolar disorder ? C1 cervical fracture ? Cancer ? Cervical cancer ? Chronic kidney disease ? Depression ? ELIANA (generalized anxiety disorder) ? GERD (gastroesophageal reflux disease) ? Headache(784.0) ? Hypertension ? Metabolic acidosis ? Psoriasis ? Psoriatic arthritis ? Psychosis ? TBI (traumatic brain injury) ? Sep ??? Total body pain ? Past Surgical History: Procedure Laterality Date ??? CERVIX SURGERY ? CHOLECYSTECTOMY ? OVARIAN CYST REMOVAL ? right ??? PRO COLONOSCOPY, BIOPSY N/A 02/11/2016 ?? COLONOSCOPY FLEXIBLE, WITH BX performed by David Hardy MD at [facility] ??? PRO UPPER GI ENDOSCOPY, BIOPSY N/A 02/11/2016 ?? UPPER GASTROINTESTINAL ENDOSCOPY,WITH BIOPSY SINGLE OR MULTIPLE performed by David Hardy MDat [facility] ??? TUBAL LIGATION ? Studies to Review: see HPI ?? Outpatient Medications Marked as Taking for the 09/21/18 encounter (Office Visit) with Rosita Alves MD Medication Sig Dispense Refill ??? topiramate (TOPAMAX) 100 mg Tablet Take 1 tablet by mouth 2 times daily. 180 tablet 1 ??? SUMAtriptan (IMITREX) 100 mg Tablet 1 tab for severe h/a. May repeat x1 after 2 hours. NTE 200mgin 24h. NTE 2 days per week (all triptans). DO NOT take on same day as treximet 9 tablet 0 ??? candesartan (ATACAND) 16 mg Tablet Take 1 tablet by mouth every evening. 30 tablet 3 ??? clonazePAM (KLONOPIN) 0.5 mg Tablet Take 1.5 tablets by mouth 3 times daily. 135 tablet 0 ??? fexofenadine-pseudoephedrine (COREY-D 24) 180-240 mg Tablet Sustained Release 24 hr Take 1 tablet by mouth daily. 30 tablet 3 ??? inhaler, assist devices (COMPACT SPACE CHAMBER MISC) ??? albuterol 90 mcg/actuation HFA Aerosol Inhaler Inhale 2 puffs into the lungs every 4 hours as needed for Wheezing. Use with spacer 1 Inhaler 1 ??? QUEtiapine (SEROQUEL) 50 mg Tablet Take 1 to 2 tablets at night for sleep. 180 tablet 0 ??? SUMAtriptan-Naproxen 85-500 mg Tablet Take one tab at onset of migraine, may repeat in 4 hours if no better. No more than 2 tabs in 24 hours or 2 days per week. 18 tablet 11 ??? baclofen (LIORESAL) 20 mg Tablet TAKE ONE TABLET BY MOUTH THREE TIMES DAILY NEEDED 270 tablet3 ??? DULoxetine (CYMBALTA) 60 mg Capsule, Delayed Release(E.C.) Take 1 capsule by mouth 2 times daily. 180 capsule 3 ??? ondansetron (ZOFRAN) 8 mg Tablet Take 1 tablet by mouth 2 times daily as needed for Nausea. 20 tablet 4 ??? pantoprazole (PROTONIX) 40 mg Tablet, Delayed Release (E.C.) Take 40 mg by mouth daily. ??? MAGNESIUM ORAL Take by mouth. ??? UBIDECARENONE (COENZYME Q10 ORAL) Take by mouth. ??? ferrous sulfate 325 mg (65 mg iron) Tablet, Delayed Release (E.C.) Take 1 tablet by mouth daily.7 tablet 0 ??? multivitamin (THERAGRAN) Tablet Take 1 tablet by mouth daily. ??? riboflavin, vitamin B2, 100 mg Tablet Take 1 tablet by mouth daily. 30 tablet 11 ? Allergies Allergen Reactions ??? Pollen Extracts ? REVIEW OF SYSTEMS: See HPi ? Physical Examination: ?? VS BP 102/74 (BP Location (NBP): Left arm, Patient Position: Sitting, BP Cuff Sizes: Adult (25-34 cm)) Pulse (!) 108 Ht 160 cm (5' 3) Comment: reported Wt 61.7 kg (136 lb) BMI 24.09 kg/m? General: Normal skin, musculoskeletal Neurological: Normal mentation, coordination, gait ? Impression & plan: 1. Intractable chronic migraine without aura and without status migrainosus ?This patient meets the FDA criteria for Chronic Migraine, with headache at least 15 days per month, at least 4 hours per day (hers are 5 days per week, 20 days per month). She has unsuccessfully tried at least 39 medications, and has had lack of success with each of the big three anti-migraine prevention categories, antidepressants, anti-epilepsy drugs, and antihypertensives. I will prescribe Aimovig for her. I personally did the Aimovig teaching for this patient today. ?? I spent 40 minutes in this visit, with at least 30 ??devoted to patient counseling. ?? Cameron Alves MD documented in this encounter Plan of Treatment Upcoming Encounters Date Type Specialty Care Team Description 04/14/2022 Office Visit Neurology Cameron Alves MD [facility] [place], [place] [address] (Wo rk) documented as of this encounter Visit Diagnoses Diagnosis Chronic migraine without aura, with intr actable migraine, so stated, with status migrainosus documented in this encounter Care Teams Soil Field Technician Relationship Specialty Start Date End Date Lolis Moss MD PCP - General General Internal Medicine 04/15/16 [address] [facility] [address] [facility] [place] [address] documented as of this encounter
--- OUTSIDE RECORDS SUMMARY | 2022-03-18 11:32 | XMS_ITS | Encounter Summary ---
:1970 Author Organization [place] [address] Care Team Providers Name Role Phone Lolis Moss MD Primary Care Provider Reason for Visit Reason Onset Date Comments Prior Authorization 09/28/2018 Aimovig Encounter Details Date Type Department Care Team Description 09/28/2018 Telephone Pharmacy at [facility] Sarah Medina Prior Authorization [facility] ([facility] ) [place] [address] Social History Tobacco Use Types Packs/Day Years Used Date Former Smoker Cigarettes 0.5 15 Quit: 08/30/19 18 Smokeless Tobacco: Never Used Comments: Started smoking at 45 Alcohol Use Standard Drinks/Week Comments Not Currently 0 (1 standard drink = 0.6 oz pure alcoho l) Sex Assigned at Date Recorded Not on file documented as of this encounter Miscellaneous Notes Telephone Encounter - Mayco Thompson - 09/29/2018 2:13 PM EST Images from the original note were not included. [facility], Prior Authorization Denial Case/Reference #: [id number] Additional Information from Insurance carrier: The request for the 140mg Aimovig dose has been denied, see insurance explanation below and in scan docs: For more information please see denial letter in scan docs, or call . There was an approval, but only for the 70mg dose, which ranges from 09/28/18 - 12/26/18. The patient will be able to continue filling the 140mg dose using the [employer] Copay Card at the [facility]. Telephone Encounter - Natalee March RN - 09/29/2018 8:02 AM EST Images from the original note were not included. Telephone Encounter - Sarah Clark - 09/28/2018 1:29 PM EST [facility], Medication Prior Authorization Patient: Lisseth Boone Patient : 1970 Patient Address: [address] [place] [address] (home) Medication: Aimovig Subscriber Insurance: [employer] Fax: N/A Physician: Cameron Alves Sent Via: [facility] Ashby: [id number] Ref/Case/PA#: N/A Medication Strength Frequency Requested: 70mg/mL: 140mg every 30 days Qty/Day Supply: New Start: Yes Diagnosis & ICD-10 Code: Chronic migraine without aura, with intractable migraine, so stated, with status migrainosus G43.711 documented in this encounter Plan of Treatment Upcoming Encounters Date Type Specialty Care Team Description 04/14/2022 Office Visit Neurology Cameron Alves MD [facility] [address] [place], [place] [address] (Wo [...] on filedocumented in this encounter Care Teams Lone Lead Lineman Relationship Specialty Start Date End Date Lolis Moss MD PCP - General General Internal Medicine 04/15/16 [address] [facility] [address] [facility] [place] [address] documented as of this encounter
--- OUTSIDE RECORDS SUMMARY | 2022-03-18 11:32 | XMS_ITS | Encounter Summary ---
:1970 Author Organization [facility] [place] [address] Care Team Providers Name Role Phone Lolis Moss MD Primary Care Provider Encounter Details Date Type Department Care Team Description 10/31/2018 Hospital Encounter XRay at [facility] [place] Lolis Moss Pulmonary nodule [address] [place] [address] Dr Pernell MD [facility] [id number] [place] [phone] [facility] [place], [place] [address] Social History Tobacco Use Types [...] B2, 100 mg daily. TabletIndications: Headache(784.0) clonazePAM (KLONOPIN) Take 1.5 tablets in 128 tablet 0 10/3112/07/2018 0.5 mg Tablet the morning and 1.5 tablets in the evening. Take 1.25 tablets in the afternoon. ondansetron (ZOFRAN) Take 1 tablet by mouth 20 tablet 4 03/19/2019 8 mg Tablet 2 times daily as needed for Nausea. varenicline (CHANTIX) Take by mouth with 53 tablet 0 201806/19/2019 0.5 mg (11)- 1 mg meals. Days 1-3: 0.5mg (42) Tablets, Dose ONCE daily. Days 4-7: Pack 0.5 mg TWICE daily. Day 8 until the end of treatment 1 mg TWICE daily. varenicline (CHANTIX) Take 1 tablet by mouth 60 tablet 1 06/19/2019 1 mg Tablet 2 times daily (with meals). QUEtiapine (SEROQUEL) Take 1 to 2 tablets at 180 tablet 0 06/19/2019 50 mg Tablet night for sleep. erenumab-aooe Inject 140 mg 2 mL 11 09/21/2018 12/15/19 19 (AIMOVIG subcutaneously every AUTOINJECTOR, 2 30 days. [facility] PACK,) 70 mg/mL [id number] Auto-InjectorIndicati ons: Chronic migraine without aura, with intractable migraine, so stated, with status migrainosus topiramate (TOPAMAX) Take 1 tablet by mouth 180 tablet 1 03/20/2019 100 mg Tablet 2 times daily. SUMAtriptan (IMITREX) 1 tab for severe h/a. 9 tablet 0 04/26/2019 100 mg Tablet May repeat x1 after 2 hours. NTE 200mg in 24h. NTE 2 days per week (all triptans). DO NOT take on same day as treximet candesartan (ATACAND) Take 1 tablet by mouth 30 tablet 3 12/21/2018 16 mg every evening. TabletIndications: Migraine with aura and without status migrainosus, not intractable fexofenadine-pseudoep Take 1 tablet by mouth 30 tablet 3 04/04/2019 hedrine (COREY-D daily. 24) 180-240 mg Tablet Sustained Release 24 hrIndications: Environmental allergies inhaler, assist 0 06/08/2018 0 devices (COMPACT SPACE CHAMBER MISC) albuterol 90 Inhale 2 puffs into 1 Inhaler 1 06/07/201807/2019 mcg/actuation HFA the lungs every 4 Aerosol Inhaler hours as needed for Wheezing. Use with spacer SUMAtriptan-Naproxen Take one tab at onset 18 tablet 11 04/1604/26/2019 85-500 mg Tablet of migraine, may repeat in 4 hours if no better. No more than 2 tabs in 24 hours or 2 days per week. baclofen (LIORESAL) TAKE ONE TABLET BY 270 tablet 3 02/03/20 18 01/16/2019 20 mg MOUTH THREE TIMES TabletIndications: DAILY NEEDED Fibromyalgia, Psoriatic arthritis DULoxetine (CYMBALTA) Take 1 capsule by 180 capsule 3 201712/29/2018 60 mg Capsule, mouth 2 times daily. Delayed Release(E.C.)Indicati ons: Depression, unspecified depression type pantoprazole Take 40 mg by mouth 0 05/06/201705/2019 (PROTONIX) 40 mg daily. Tablet, Delayed Release (E.C.) ferrous sulfate 325 Take 1 tablet by mouth 7 tablet 0 03/1709/18/2019 mg (65 mg iron) daily. Tablet, Delayed Release (E.C.) documented as of this encounter Plan of Treatment Upcoming Encounters Date Type Specialty Care Team Description 04/14/2022 Office Visit Neurology Cameron Alves MD [facility] [address] [place], [place] [address] (Wo rk) [...] Priority Date/Time Associated Diagnosis Comme nts XR CHEST PA AND Routine 10/31/2018 1:27 PM Pulmonary nodule Re sults for this LATERAL EDT procedure are i n the results section. documented in this encounter Results XR Chest PA & Lateral (Generic) (10/31/2018 1:27 PM EDT) Anatomical Region Laterality Modality Chest N/A Digital Radiography Specimen (Source) Anatomical Location Collection Method / Collectio n Time Received Time / Laterality Volume Impressions 10/31/2018 2:28 PM EDT No nodular opacity identified confirming that the previously seen 3 mm nodule was benign. I have personally reviewed the image(s) and the residents interpretation and agree with the findings, Cooper ochoa 10/31/2018 2:28 PM Thank you for letting us participate in the care of this patient. For questions regarding this report, please contact [facility] number below. ? Electronically signed by: Cooper Alcala [facility] ([phone]), at 10/31/2018 2:28 PM Narrative 10/31/2018 2:28 PM EDT EXAMINATION: XR CHEST PA AND LATERAL (GENERIC) CLINICAL HISTORY: 3mm nodule noted on [address] done for trauma TECHNIQUE: Frontal and lateral views of the chest COMPARISON: CT chest from 09/23/2012. FINDINGS: The lungs are clear with no focal consol idation or nodular opacity identified. No pneumothorax or pleural effusion. The cardiomediastinal silhouette is within normal limits. No acute osseous abnormal ity. Procedure Note Cooper Alcala MD - 10/31/2018Formatt ing of this note might be different from the original. EXAMINATION: XR CHEST PA AND LATERAL (MovatuIC) CLINICAL HISTORY: 3mm nodule noted on [address] done for trauma TECHNIQUE: Frontal and lateral views of the chest COMPARISON: CT chest from 09/23/2012. FINDINGS: The lungs are clear with no focal consol idation or nodular opacity identified. No pneumothorax or pleural effusion. The cardiomediastinal silhouette is within normal limits. No acute osseous abnormal ity. IMPRESSION No nodular opacity identified confirming that the previously seen 3 mm nodule was benign. I have personally reviewed the image(s) and the residents interpretation and agree with the findings, Cooper ochoa 10/31/2018 2:28 PM Thank you for letting us participate in the care of this patient. For questions regarding this report, please contact e number below. Lolis Moss MD IMG DX ORDERABLES documented in this encounter Visit Diagnoses Diagnosis Pulmonary nodule Solitary pulmonary nodule documented in this encounter Care Teams Checkerer Hand Relationship Specialty Start Date End Date Lolis Moss MD PCP - General General Internal Medicine 04/15/1602/12/ [address] [facility] [place] [address] documented as of this encounter
--- OUTSIDE RECORDS SUMMARY | 2022-03-18 11:32 | XMS_ITS | Encounter Summary ---
:1970 Author Organization [facility] Address [address] [place] [address] Care Team Providers Name Role Phone Lolis Moss MD Primary Care Provider Reason for Visit Reason Comments Medication Management Patient Education Encounter Details Date Type Department Care Team Description 09/28/2018 Specialty Pharmacy Pharmacy at [facility] Kan Shepherd [facility] P, [facility] Managemen t; [place] [address] Social History Tobacco Use Types Packs/Day Years Used Date Former Smoker Cigarettes 0.5 15 Quit: 08/30/19 18 Smokeless Tobacco: Never Used Comments: Started smoking at 45 Alcohol Use Standard Drinks/Week Comments Not Currently 0 (1 standard drink = 0.6 oz pure alcoho l) Sex Assigned at Date Recorded Not on file documented as of this encounter Progress Notes Kan Shepherd [facility] - 09/28/2018 2:55 PM EST Specialty Pharmacy Consultation; Kan Shepherd [facility] Comprehensive Medication Management (CMM) Lisseth Boone Therapy Start Date: 09/23/18 Contact in person or via telephone: telephone Ms. Lisseth Boone is a 48 y.o. (1970) female who was contacted in regard to specialty medication. Spoke with patient regarding AIMOVIG . A review of the medication therapy was performed. The medication was filled as scheduled, and all medication related questions and concerns were addressed. The specialty pharmacy staff will follow up with the patient 5-7 days prior to next refill. Is the patient willing to proceed with the Clinical Assessment? Yes Summary and Recommendations: Lisseth had already taken her first dose of Aimovig when it was received on 09/23/18 however we provided full consult and explained how future refills and shipping will work. Lisseth states that her quality of life living with headaches is a 7, on average, on a scale of 1-10, although she was a 10 on this day because she is headache free. Her goal is twofold - to have fewer headaches, and to reduce theuse of her adjunct / rescue medication. Clinic follow-up needed: yes - Lisseth will have f/u visits with clinic Allergies and Drug intolerance: Allergies Allergen Reactions ??? Pollen Extracts Special Dietary or Hydration Requirements: no There is no height or weight on file to calculate BMI. Medication Reconciliation Discrepancies (compared to [facility] med list) - yes: sumatriptan 100mg, albuterol inhaler, and pantoprazole marked as not taking, Corey D noted to be used as needed and Topamax is only used hs instead of bid. Medication Adherence Demonstrates understanding of importance of adherence: yes Adherence tools used: directed education Confirmed plan for next specialty medication refill: delivery by pharmacy Medication List: Current Outpatient Medications Medication Sig Note Dispense Refill ??? clonazePAM (KLONOPIN) 0.5 mg Tablet Take 1.5 tablets by mouth 3 times daily. 135 tablet 0 ??? QUEtiapine (SEROQUEL) 50 mg Tablet Take 1 to 2 tablets at night for sleep. 180 tablet 0 ??? erenumab-aooe (AIMOVIG AUTOINJECTOR, 2 PACK,) 70 mg/mL Auto-Injector Inject 140 mg subcutaneously every 30 days. [facility] 65222-520-95 2 mL 11 ??? candesartan (ATACAND) 16 mg Tablet Take 1 tablet by mouth every evening. 30 tablet 3 ??? fexofenadine-pseudoephedrine (COREY-D 24) 180-240 mg Tablet Sustained Release 24 hr Take 1 tablet by mouth daily. 09/28/2018: Takes as needed 30 tablet 3 ??? SUMAtriptan-Naproxen 85-500 mg Tablet Take one [...] needed for Nausea. 20 tablet 4 ??? MAGNESIUM ORAL Take by mouth. ??? UBIDECARENONE (COENZYME Q10 ORAL) Take by mouth. ??? ferrous sulfate 325 mg (65 mg iron) Tablet, Delayed Release (E.C.) Take 1 tablet by mouth daily.7 tablet 0 ??? multivitamin (THERAGRAN) Tablet Take 1 tablet by mouth daily. ??? riboflavin, vitamin B2, 100 mg Tablet Take 1 tablet by mouth daily. 30 tablet 11 ??? topiramate (TOPAMAX) 100 mg Tablet Take 1 tablet by mouth 2 times daily. 09/28/2018: Takes 100mg at night 180 tablet 1 ??? SUMAtriptan (IMITREX) 100 mg Tablet 1 tab for severe h/a. May repeat x1 after 2 hours. NTE 200mgin 24h. NTE 2 days per week (all triptans). DO NOT take on same day as treximet (Patient not taking:Reported on 09/28/2018) 9 tablet 0 ??? inhaler, assist devices (COMPACT SPACE CHAMBER MISC) ??? albuterol 90 mcg/actuation HFA Aerosol Inhaler Inhale 2 puffs into the lungs every 4 hours as needed for Wheezing. Use with spacer (Patient not taking: Reported on 09/28/2018) 1 Inhaler 1 ??? pantoprazole (PROTONIX) 40 mg Tablet, Delayed Release (E.C.) Take 40 mg by mouth daily. 09/28/2018: Not taking No current facility-administered medications for this visit. Most Recent Vitals: Ht Readings from Last 1 Encounters: 09/21/18 160 cm (5' 3) Wt Readings from Last 3 Encounters: 09/21/18 61.7 kg (136 lb) 09/07/18 63.5 kg (140 lb) 06/13/18 64.9 kg (143 lb) Temp Readings from Last 3 Encounters: 06/07/18 36.7 ??C (98 ??F) (Oral) 01/25/18 36.4 ??C (97.5 ??F) (Oral) 03/26/17 36.5 ??C (97.7 ??F) (Oral) BP Readings from Last 3 Encounters: 09/21/18 102/74 09/07/18 118/81 06/13/18 (!) 130/91 Pulse Readings from Last 3 Encounters: 09/21/18 (!) 108 09/07/18 93 06/13/18 85 Pertinent Lab values: Lab Results Component Value Date NA 140 09/07/2018 K 4.1 09/07/2018 CL 106 09/07/2018 CO2 23 09/07/2018 BUN 12 09/07/2018 CREATININE 0.89 09/07/2018 GLUCOSE 91 09/07/2018 GLUCFASTING 98 06/07/2018 CALCIUM 9.6 09/07/2018 Lab Results Component Value Date ALT 16 06/07/2018 AST 21 06/07/2018 ALKPHOS 91 06/07/2018 BILITOT 0.2 06/07/2018 BILIDIR 0.1 09/21/2016 ALBUMIN 4.3 06/07/2018 PROT 7.6 06/07/2018 Lab Results Component Value Date WBC 8.4 06/07/2018 HGB 13.9 06/07/2018 HCT 42.2 06/07/2018 MCV 95.5 (H) 06/07/2018 PLATELET 467 (H) 06/07/2018 Lab Results Component Value Date HA1C 4.7 04/11/2018 Immunization History Administered Date(s) Administered ??? Influenza PF, Split 05/20/2016, 04/16/2017 ??? Influenza Vaccine w/Preservative, Split 05/15/2012 ??? Pneumococcal Polyvalent 23 06/16/2010 ??? Tdap Vaccine 05/20/2016 Assessment and Recommendations: Title Type of Medication Management: chronic disease management, targeted medication review Referred By: provider Recipient: beneficiary Provider: plan sponsor pharmacist Method of Contact: by telephone Cognitive Ability: good Patient Counseling Counseled the patient on the following: doses and administration discussed, safe handling, storage, and disposal discussed, possible adverse effects and management discussed, possible drug and prescription drug interactions discussed, possible drug and OTC drug and food interactions discussed, lab monitoring and follow-up discussed, use of contraception discussed, therapeutic rationale discussed, cost of medications and cost implications discussed, adherence and missed doses discussed, pharmacy contact information discussed Drug Medication Management Summary Topics discussed: doses and administration discussed, safe handling, storage, and disposal discussed, possible adverse effects and management discussed, possible drug and prescription drug interactions discussed, possible drug and OTC drug and food interactions discussed, lab monitoring and follow-up discussed, use of contraception discussed, therapeutic rationale discussed, cost of medications and cost implications discussed, adherence and missed doses discussed, pharmacy contact information discussed Number of adverse drug events identified: 0 Time spent: 16-30 min Treatment Outcomes 09/28/2018 Disease progression: Stable Patient Overall Status: Stable Reviewed in detail with patient: Dose appropriateness based on recommended standard dosing Current medication list including OTC medications Medication and disease problems Allergies Comorbid conditions/ Problem List Past adverse events if any Special needs of the patient including physical and cognitive limitations Goals of therapy and management strategies Warnings, precautions, and contraindications Side effects Drug-drug and drug-food interactions Administration instructions including dose, frequency and method Handling, storage, and disposal of the medication Relevant lab data Patient verbalizes understanding and is able to read-back instructions on self-administration/injection, proper storage, drug stability, importance of adherence and management strategies, side effect avoidance and mitigation strategies, and interruptions in therapy: Yes Economic Assessment: Patient is agreeable to medication copay: Yes Copay Amount: 0 Date Needed: 09/23/18 Therapy Assessment: Appropriate Therapy: Yes Current Medication Dosing/Route/Frequency: Inject the contents of 2 pens (140mg) subcutaneously every 30 days Expected Outcome: migraine prevention Patient's goals: Goals ??? Home Medication Compliance and Understanding Patient's specific desired goal: to have fewer headaches and to use less adjunct / rescue medication Measured by: calendar, frequency of use of adjunct / rescue meds Time-frame to meet goal: 90-150 days Most Recent MIDAS: n/a Monitoring requirements for prescribed medication: efficacy / benefit (incl use of adjunct meds), side effects, and adherence Patient's Problems/Needs: 3-4 migraines per week and desire to use fewer adjunct / rescue meds Interventions (if applicable): No Educational information or adherence tools provided: Yes Additional equipment/supplies required: yes - sharps container provided Care plan reviewed and approved by both pharmacist and patient: Yes Pharmacist follow-up needed: Yes Informed patient of specialty pharmacy services: Yes -Patient will be provided with welcome packet: Yes Date provided: 09/22/18 Delivery Method: shipped with Place[employer] -Patient will be provided with Rights & Responsibilities: Yes Date provided: 09/22/18 (verified received / reviewed 09/28/18) Delivery Method: shipped with Aimovig -Patient is aware a licensed pharmacist is available 24 hours a day, 7 days a week to discuss medication-related questions or concerns: Yes -Patient verbalizes understanding of the common side effect profile of their medication. The patientis able to call 911 or seek urgent care if signs/symptoms of allergy or harmful adverse reactions occur: Yes Patient understands no changes to current drug regimen were made at the appointment and that [facility] is providing recommendations (summary located at top of note) for provider review and follow up. Kan Shepherd RPH 09/28/18 3:10 PM documented in this encounter Plan of Treatment Upcoming Encounters Date Type Specialty Care Team Description 04/14/2022 Office Visit Neurology Cameron Alves MD [facility] [address] [place] [address] (Wo rk) documented as of this encounter Goals Goal Patient Goal Associated Recent Patient-Stated? Author Type Problems Progress DH Home Medication Patient No Kendrick ridley, Compliance and Facing Kan Restrepo Understanding Action Plan [facility] Note: Formatting of this note might be d ifferent from the original. Patient's specific desired goal: to have fewer headaches and to use less adjunct / rescue medication Measured by: calendar, frequency of use of adjunct / rescue meds Time-frame to meet goal: 90-150 days documented as of this encounter Visit Diagnoses Diagnosis Medication management Encounter for long-term (current) use of other medications documented in this encounter Care Teams Card Maker Relationship Specialty Start Date End Date Lolis Moss MD PCP - General General Internal Medicine 04/15/16 0 [facility] [place] [id number] documented as of this encounter
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
--- OUTSIDE RECORDS SUMMARY | 2022-03-18 11:33 | XMS_ITS | Encounter Summary ---
:1970 Author Organization [facility] [place] [address] Care Team Providers Name Role Phone Lolis Moss MD Primary Care Provider Reason for Visit Reason Onset Date Comments Medication Refill 08/05/2017 Encounter Details Date Type Department Care Team Description 08/05/2017 Refill Psychiatry and Behavioral Silver Debra ortiz MD [facility] [place] [address] [place] [address] [phone] Social History Tobacco Use Types Packs/Day Years [...] 04/14/2022 Office Visit Neurology Cameron Alves MD [facility] [address] [place] [address] (Wo rk) documented [...] on filedocumented in this encounter Care Teams Hotel Service Manager Relationship Specialty Start Date End Date Lolis Moss MD PCP - General General Internal Medicine 03/28/20 12/17/[address] [facility] [address] KARINA SALTER [facility] [place] [address] documented as of this encounter
--- OUTSIDE RECORDS SUMMARY | 2022-03-18 11:33 | XMS_ITS | Encounter Summary ---
:1970 Author Organization [facility] [place] [address] Care Team Providers Name Role Phone Lolis Moss MD Primary Care Provider Encounter Details Date Type Department Care Team Description 07/05/2017 Orders Only Neurology at [facility] Cameron Alves MD [facility] [place] [address] [place] [address] [phone] (Wo rk) Social History Tobacco Use Types [...] MD [facility] [address] [place] [address] (Wo rk) documented as of this encounter Visit Diagnoses Not on filedocumented in this encounter Care Teams Behaviour Support Teacher Relationship Specialty Start Date End Date Lolis Moss MD PCP - General General Internal Medicine 04/15/[address] [facility] [address] KARINA [place] [address] documented as of this encounter
--- OUTSIDE RECORDS SUMMARY | 2022-03-18 11:33 | XMS_ITS | Encounter Summary ---
:1970 Author Organization [facility] [place] [address] Care Team Providers Name Role Phone Lolis Moss MD Primary Care Provider Reason for Visit Reason Onset Date Comments Medication Refill 10/27/2017 Encounter Details Date Type Department Care Team Description 10/27/2017 Refill [place] [facility] Joanna Alves MD [facility] [place] [address] [place] [address] [phone] (Wo rk) Social History Tobacco Use Types [...] 04/14/2022 Office Visit Neurology Cameron Alves MD [facility] er [address] [place] [address] (Wo rk) documented as of this encounter Visit Diagnoses Not on filedocumented in this encounter Care Teams Seam Sewer Relationship Specialty Start Date End Date Lolis Moss MD PCP - General General Internal Medicine 04/15/16 [address] [facility] [address] KARINA SALTER [facility] [place] [address] documented as of this encounter
--- OUTSIDE RECORDS SUMMARY | 2022-03-18 11:33 | XMS_ITS | Encounter Summary ---
:1970 Author Organization [facility] [place] [address] Care Team Providers Name Role Phone Lolis Moss MD Primary Care Provider Reason for Visit Reason Onset Date Comments Medication Refill 09/27/2017 Encounter Details Date Type Department Care Team Description 09/27/[address] [facility] Cameron Alves MD [facility] [place] [address] [place] [address] [phone] (Wo rk) Social History Tobacco Use Types [...] MD [facility] [address] [place] [address] (Wo rk) documented as of this encounter Visit Diagnoses Not on filedocumented in this encounter Care Teams Measurement And Verification Engineer Relationship Specialty Start Date End Date Lolis Moss MD PCP - General General Internal Medicine 04/15/[address] [facility] [address] KARINA SALTER [facility] [place] [address] documented as of this encounter
--- OUTSIDE RECORDS SUMMARY | 2022-03-18 11:33 | XMS_ITS | Encounter Summary ---
:1970 Author Organization [facility] [place] [address] Care Team Providers Name Role Phone Lolis Moss MD Primary Care Provider Encounter Details Date Type Department Care Team Description 12/22/2017 Office Visit Internal Medicine at Lolis Moss DH PATIENT NOT SEEN Karina Hi MD [address] [place] [address] [facility]IMARY [facility] [place] [id number] (Wo rk) Social History Tobacco Use Types [...] encounter Progress Notes Lolis Moss MD - 12/22/2017 6:16 PM EDT This patient was not seen in this encounter. documented in this encounter Plan of Treatment Upcoming Encounters Date Type Specialty Care Team Description 04/14/2022 Office Visit Neurology Cameron Alves MD [facility] [place] [address] (Wo rk) documented as of this encounter Visit Diagnoses Diagnosis DH PATIENT NOT SEEN documented in this encounter Care Teams Yeast Tender Relationship Specialty Start Date End Date Lolis Moss MD PCP - General General Internal Medicine 04/15/[address] [facility] [address] [place] [address] documented as of this encounter
--- OUTSIDE RECORDS SUMMARY | 2022-03-18 11:33 | XMS_ITS | Encounter Summary ---
:1970 Author Organization [facility] [place] [address] Care Team Providers Name Role Phone Lolis Moss MD Primary Care Provider Encounter Details Date Type Department Care Team Description 06/06/2018 Telephone Psychiatry and Behavioral Debra Gomez MD [facility] [place] [id number] [place] [phone] Social History Tobacco Use Types Packs/Day Years [...] Telephone Encounter - Debra Munguia MD - 06/06/2018 4:53 PM EDT Called pt at [phone]. No answer. Called [phone]. No answer. Voicemail indicates that it isthe voicemail of Emmanuel Boone. Again tried [phone]. Again no answer. Left message requesting callback. documented in this encounter Plan of Treatment Upcoming Encounters Date Type Specialty Care Team Description 04/14/2022 Office Visit Neurology Cameron Alves MD [facility] [place], [place] [address] (Wo rk) documented as of this encounter Visit Diagnoses Not on filedocumented in this encounter Care Teams Community Organization Worker Relationship Specialty Start Date End Date Lolis Moss MD PCP - General General Internal Medicine 04/15/16 [address] [facility] [address] KARINA [place] [address] documented as of this encounter
--- OUTSIDE RECORDS SUMMARY | 2022-03-18 11:33 | XMS_ITS | Encounter Summary ---
:1970 Author Organization [facility] [address] Care Team Providers Name Role Phone Lolis Moss MD Primary Care Provider Encounter Details Date Type Department Care Team Description 04/11/2018 Office Visit Psychiatry and Debra Munguia Anxiety; Behavioral Health at [place] ELIANA (generalized anxiety disorder) [facility] [place] [address] [place], [place] [phone] (Work) [phone] Social History Tobacco Use Types Packs/Day Years [...] encounter Progress Notes Debra Munguia MD - 04/11/2018 1:15 PM EDT Outpatient Psychiatry Follow Up 04/11/2018 Lisseth Boone,a 47 y.o. female, for medication f/u. Duration: Since last visit, doing pretty good. Visited family in [place], which went well. I really had a nice time. I just felt more energetic and I feel healthier. Was accompanied by daughter. When returned, had to contend with her 21yo son's depression and his admission that he's had thoughts of suicide. Son now doing better, getting the necessary support at school. She has plans to see him more often. Feels her own mood has been really good. 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 Has been unusually tired for the last several days. Sleeping well, 12 hrs nightly for the past several days. Worries that she has been overtired, and worries if she is getting sick. Does not feel this is a depressive sx. Appetite good. Concentration good. No SI/HI. Has started therapy at [facility], with plans to continue. First session went really well. Continues to exercise - walking, doing sit ups and push ups. No dissociative episodes since last visit. No EtOH intake. No illicit drug use. Not smoking. In agreement to begin wean of Seroquel - taking 12.5mg only once daily or not at all. Current meds: Klonopin 0.75mg TID Cymbalta 60mg BID (prescribed by PCP) Seroquel 12.5mg BID prn, 100mg QHS (takes prn doses on a regular BID basis) topiramate 100mg nightly (for headaches, prescribed by Neurology) History (from intake, updated where appropriate): Past Psychiatric History: Previous psychiatric treatment and medication trials: Lexapro - stopped long ago Zyprexa - stopped while inpt at [facility] (and dx of delirium felt more likely than psychosis), but laterrestarted by PCP; felt it helped her mood swings Lamotrigine - stopped while inpt at [facility] (and dx of delirium felt more likely than psychosis or BPAD) Wellbutrin - stopped during admission to [facility] Previous psychiatric hospitalizations: During the summer of 2015, pt was admitted to both [facility] and [facility] during episodes characterized by extreme [...] BX performed by David Hardy MD at [facility] END[facility]COPY ??? PRO UPPER GI ENDOSCOPY, BIOPSY N/A 02/11/2016 UPPER GASTROINTESTINAL ENDOSCOPY,WITH BIOPSY SINGLE OR MULTIPLE performed by David Hardy MD at [facility] ??? TUBAL LIGATION (Not in a hospital admission) Allergies Allergen Reactions ??? Pollen Extracts Social History Substance Use Topics ??? Smoking status: Former Smoker Packs/day: 0.50 Years: 15.00 Types: Cigarettes Quit date: 08/30/2017 ??? Smokeless tobacco: Never Used Comment: Started [...] hx depression, ELIANA presents for follow up. Reassuring interval hx since last visit, with pt functioning well and able to help her own children with their emotional struggles. Also reassuring is that she has started engagement in therapy and plans to continue. We had earlier agreed that startingand maintaining psychotherapy would be an important first step in ultimately weaning off the klonopin. Given her stability, we discussed reducing daily dose of Seroquel to minimize side effects. Will further recheck metabolic labs. Pt verbalized understanding and agreement with plan. Treatment Plan/Recommendations: - Reduce daytime Quetiapine to 12.5mg once prn - Continue Quetiapine 100mg QHS - Continue duloxetine (prescribed by PCP) - Continue Klonopin 0.75 mg TID - f/u cmp, lipid panel, hgb A1c - RTC 06/13/2018 Safety: The patient does not appear to [...] reviewed with the patient Debra Munguia MD Addendum: Lipid panel shows slightly elevated triglycerides, though improved since last check. PCP notified. Fortunately if Seroquel is in part accountable for this abnormality, we are decreasing the dose. Jayla Amaya MD - 04/11/2018 1:15 PM EDT PSYCHIATRY TEACHING PHYSICIAN INVOLVEMENT Location: [facility], [address] Attending Physician: Jayla Amaya MD Resident [...] depression and anxiety, with h/o dissociative episodes. Doing well - has started therapy, which is going well. No dissociative episodes in a long time. Feeling stable. Will hold the course on the Klonopin taper for now. May slightly lower Seroquel - usp goal remains to taper Klonopin slowly over time. No SI or HI. Nosubstance abuse. . JAYLA AMAYA MD documented in this encounter Plan of Treatment Upcoming Encounters Date Type Specialty Care Team Description 04/14/2022 Office Visit Neurology Cameron Alves MD [facility] Dr [place], [place] [address] (Wo rk) documented as of this encounter Procedures Procedure Name Priority Date/Time Associated Comments Diagnosis HEMOGLOBIN A1C Routine 04/11/2018 2:04 PM Anxiety Results for this EDT procedure are i n the results section. LIPID PANEL (REFLEX Routine 04/11/2018 2:04 PM Anxiety Re sults for this DIRECT LDL) EDT procedure are i n the results section. COMPREHENSIVE Routine 04/11/2018 2:04 PM Anxiety Results for this METABOLIC PANEL EDT procedure ar e in (NON-FASTING) the results section. documented in this encounter Results (ABNORMAL) Comprehensive metabolic panel (non-fasting) (04/11/2018 2:04 PM EDT) P athologist Signature Glucose Lvl 101 65 - 199 [facility] mg/dL [facility] Comment: Diabetes: >=200 mg/dL plus symp toms BUN 9 8 - 18 mg/dL [facility] Creatinine 0.88 0.70 - 1.20 mg/dL [facility] Sodium 141 135 - 145 mmol/L [facility] Potassium 3.8 3.5 - 5.0 mmol/L [facility] Comment: Please note: ??Patients with WBC >100,00 0 may have falsely elevated Potassium levels. ??For accurate Potassium quantif ication in these patients send serum separator tube (gold top) for subsequent determinations. ??Contact the Clinical Chemistry Laboratory if there are any qu estions. Chloride 110 (H) 98 - 107 mmol/L [facility] CO2 20 (L) 22 - 31 mmol/L [facility] Anion Gap 11 5 - 15 mmol/L [facility] Calcium 9.5 8.5 - 10.5 mg/dL [facility] Total Protein 6.7 6.1 - 8.0 gm/dL [facility] Albumin 4.1 3.2 - 5.2 gm/dL [facility] AST 9 0 - 30 unit/L [facility] ALT 7 0 - 30 unit/L [facility] Alk Phos 66 40 - 104 unit/L [facility] Total Bilirubin 0.2 0.2 - 1.3 mg/dL [facility] Estimated GFR 79 >=60 mL/min/1.73 m?? [facility] Comment: The eGFR was calculated using the CKD-EP I equation. As with all creatinine based estimates of kidney function, eGFR values calculated with the CKD-EPI equation are not accurate in patients wi th acute kidney failure, extremes of body mass or the acutely ill. http://Widetronix/DHMCnkf eGFR 92 >=60 mL/min/1.73 m?? [facility] Comment: The eGFR was calculated using the CKD-EP I equation. As with all creatinine based estimates of kidney function, eGFR values calculated with the CKD-EPI equation are not accurate in patients wi th acute kidney failure, extremes of body mass or the acutely ill. http://[employer]/DHnkf Specimen Anatomical Collection Method Collection Time Receive d Time (Source) Location / / Volume Laterality Blood specimen 04/11/2018 2:04 PM 018 2:23 (specimen) EDT PM EDT Resulting Agency Comment Spec In Lab Jayla Amaya MD CHEMISTRY ORDERABLES Performing Organization Address City/State/[place] [address] Lipid Panel (04/11/2018 2:04 PM EDT) P athologist Signature Chol, Total 186 mg/dL [facility] Comment: Lower Risk: <200 mg/dL Average Risk: 200-239 mg/dL Higher Risk: >lo=214 mg/dL Triglycerides 170 mg/dL [facility] Comment: Average Risk/Lower Risk: <150 mg/dL Borderline High Risk: 150-199 mg/dL High Risk: 200-499 mg/dL Very High Risk: >tn=934 mg/dL HDL 50 mg/dL [facility] Comment: Males: ?? Higher Risk: <40 mg/dL Females: ?? HIgher Risk: <50 mg/dL LDL Cholesterol 102 mg/dL [facility] Comment: Lowest Risk: <100 mg/dL Lower Risk: 100-129 mg/dL Borderline High Risk: 130-159 mg/dL High Risk: 160-189 mg/dL Very High Risk: >bz=869 mg/dL Chol/HDL Ratio 3.7 ratio [facility] Lipid Interpretation See Note [facility] Comment: Lipid management should be guided by a p atient? s ASCVD risk, goals and preferences. ACC/AHA Guidelines recommend high intens ity statin if clinical ASCVD or LDL greater than or equal to 190 mg/dL. http://Miradore.com/RKR-LXI-Uimpcqsey Adults aged 40-75 with LDL 70-189 mg/dL should have their 10 year ASCVD risk estimated with the ACC/AHA ASCVD risk es timator http://tools.acc.org/SVANE-Dzdi-Ozvearqv r/ Statin should be discussed if risk [...] Location / / Volume Laterality Blood specimen 04/11/2018 2:04 PM 018 2:23 (specimen) EDT PM EDT Resulting Agency Comment Spec In Lab Jayla Amaya MD CHEMISTRY ORDERABLES Performing Organization Address City/State/ZIP Code Phon e Number [place] [id number] Hemoglobin A1c (04/11/2018 2:04 PM EDT) athologist Signature Hemoglobin A1C 4.7 4.3 - 5.6 [facility] Comment: Reference Range: 4.3 - 5.6% 5.7 - 6.4% - Increased Risk of Developin g Diabetes Mellitus >=6.5% - Consistent with diagnosis of Di abetes Mellitus In the absence of hyperglycemia (i.e. pl asma glucose > 200 mg/dL) or classic symptoms of hyperglycemia a repeat measu rement of HbA1c should be performed on a separate sample to confirm the diagnos is. Diagnosis and Classification of Diabetes Mellitus, Diabetes Care 2013; 36: Suppl. 1, S67-74 Est Avg Gluc 88 mg/dL [facility] Comment: eAG equivalents for HbA1c percentages: HbA1c(%) ?eAG(mg/dL) 6.0 ?126 6.5 ?140 7.0 ?154 7.5 ?169 8.0 ?183 8.5 ?197 9.0 ?212 9.5 ?226 10.0 ? 240 Limitations: The eAG calculation has not been validated on women, individuals below 18 years old and above 70 years old, and individuals with hemoglobinopathies. Additional resources are available on [facility] ADA website. Familia GILMAN, Ute J, Joyce R, et al. ??Tr anslating the A1C assay into estimated average glucose values. ??Diabetes Care 2008:31(8):7606-0447. Specimen Anatomical Collection Method Collection Time Receive d Time (Source) Location / / Volume Laterality Blood specimen 04/11/2018 2:04 PM 018 2:23 (specimen) EDT PM EDT Resulting Agency Comment Spec In Lab Jayla Amaya MD CHEMISTRY ORDERABLES Performing Organization Address City/State/[place] [address] documented in this encounter Visit Diagnoses Diagnosis Anxiety Anxiety state, unspecified ELIANA (generalized anxiety disorder) Generalized anxiety disorder documented in this encounter Care Teams Stable Hand Relationship Specialty Start Date End Date Lolis Moss MD PCP - General General Internal Medicine 04/15/1602/12/ [address] [facility] [address] KARINA [place] [address] documented as of this encounter
--- OUTSIDE RECORDS SUMMARY | 2022-03-18 11:33 | XMS_ITS | Encounter Summary ---
:1970 Author Organization [facility] [place] [address] Care Team Providers Name Role Phone Lolis Moss MD Primary Care Provider Reason for Visit Reason Onset Date Comments Medication Refill 02/09/2018 Encounter Details Date Type Department Care Team Description 02/09/2018 Refill Neurology at [facility] Cameron Alves MD [facility] [place] [address] [place] [address] [phone] (Wo rk) Social History Tobacco Use Types [...] Telephone Encounter - Natalee March RN - 02/09/2018 4:27 PM EDT error documented in this encounter Plan of Treatment Upcoming Encounters Date Type Specialty Care Team Description 04/14/2022 Office Visit Neurology Cameron Alves MD [facility] [address] [place], [place] [address] (Wo rk) documented as of this encounter Visit Diagnoses Not on filedocumented in this encounter Care Teams Investment Fund Manager Relationship Specialty Start Date End Date Lolis Moss MD PCP - General General Internal Medicine 04/15/[address] [facility] [address] [place]ARINA [place] [address] documented as of this encounter
--- OUTSIDE RECORDS SUMMARY | 2022-03-18 11:33 | XMS_ITS | Encounter Summary ---
:1970 Author Organization [facility] [place] [address] Care Team Providers Name Role Phone Lolis Moss MD Primary Care Provider Reason for Visit Reason Onset Date Comments Medication Refill 05/06/2018 Encounter Details Date Type Department Care Team Description 05/06/2018 Refill Neurology at [facility] Cameron Alves MD [facility] [place] [address] [place] [address] [phone] (Wo rk) Social History Tobacco Use Types [...] Alves MD [facility] Dr [place] [address] (Wo rk) documented as of this encounter Visit Diagnoses Not on filedocumented in this encounter Care Teams Utility Plant Operative Relationship Specialty Start Date End Date Lolis Moss MD PCP - General General Internal Medicine 04/15/16 0 [facility] DR KARINA SALTER [facility] [place] [address] documented as of this encounter
--- OUTSIDE RECORDS SUMMARY | 2022-03-18 11:33 | XMS_ITS | Encounter Summary ---
:1970 Author Organization [facility] [place] [address] Care Team Providers Name Role Phone Lolis Moss MD Primary Care Provider Reason for Visit Reason Onset Date Comments Medication Refill 04/04/2018 Encounter Details Date Type Department Care Team Description 04/04/2018 Refill Neurology at [facility] Cameron Alves MD [facility] [place] [address] [place] [address] [phone] (Wo rk) Social History Tobacco Use Types [...] this encounter Miscellaneous Notes Telephone Encounter - Christi Mendoza RN - 04/04/2018 4:52 PM EDT Fax rx request for sumatriptan 100mg tabs - last rx 03/03/18 #10 and no RF Last appt 05/12/17 Next appt 07/12/18 documented in this encounter Plan of Treatment Upcoming Encounters Date Type Specialty Care Team Description 04/14/2022 Office Visit Neurology Cameron Alves MD [facility] [place] [address] (Wo rk) documented as of this encounter Visit Diagnoses Not on filedocumented in this encounter Care Teams Neuropsychology Director Relationship Specialty Start Date End Date Lolis Moss MD PCP - General General Internal Medicine 04/15/[address] [facility] [address] KARINA [place] [address] documented as of this encounter
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
--- OUTSIDE RECORDS SUMMARY | 2022-03-18 11:33 | XMS_ITS | Encounter Summary ---
:1970 Author Organization [facility] [place] [address] Care Team Providers Name Role Phone Lolis Moss MD Primary Care Provider Reason for Visit Reason Onset Date Comments Medication Refill 06/03/2018 Encounter Details Date Type Department Care Team Description 06/03/2018 Refill Psychiatry and Behavioral Temitope Willis, RN [facility] at [facility] [place] [address] Social History Tobacco Use Types Packs/Day [...] Alves MD [facility] [address] [place] [address] (Wo rk) documented as of this encounter Visit Diagnoses Not on filedocumented in this encounter Care Teams Cutter Aluminum Sheet Relationship Specialty Start Date End Date Lolis Moss MD PCP - General General Internal Medicine 04/15/16 0 [facility] [address] KARINA SALTER [place] [address] documented as of this encounter
--- OUTSIDE RECORDS SUMMARY | 2022-03-18 11:33 | XMS_ITS | Encounter Summary ---
:1970 Author Organization [facility] [place] [address] Care Team Providers Name Role Phone Lolis Moss MD Primary Care Provider Reason for Visit Reason Onset Date Comments Medication Refill 04/25/2018 Encounter Details Date Type Department Care Team Description 04/25/2018 Refill Neurology at [facility] Cameron Alves MD [place] [address] [place] [address] [phone] (Wo rk) Social History Tobacco Use Types [...] 04/14/2022 Office Visit Neurology Cameron Alves MD [facility] [address] [place] [address] (Wo rk) documented as of this encounter Visit Diagnoses Not on filedocumented in this encounter Care Teams Fitness/Wellness Director Relationship Specialty Start Date End Date Lolis Moss MD PCP - General General Internal Medicine 04/15/16 0 [facility] DR KARINA SALTER [facility] [address] documented as of this encounter
--- OUTSIDE RECORDS SUMMARY | 2022-03-18 11:33 | XMS_ITS | Encounter Summary ---
:1970 Author Organization [facility] [place] [address] Care Team Providers Name Role Phone Lolis Moss MD Primary Care Provider Reason for Visit Reason Onset Date Comments Medication Refill 08/03/2018 Encounter Details Date Type Department Care Team Description 08/03/2018 Refill Internal Medicine at Lolis Moss, Environmental allergies [facility] [address] [place] [address] [facility] [place], [place] [address] (Wo rk) Social History Tobacco [...] Alves MD [facility] Dr [place], [place] [address] (Wo rk) documented as of this encounter Visit Diagnoses Diagnosis Environmental allergies Allergic rhinitis, cause unspecified documented in this encounter Care Teams Process Developer Relationship Specialty Start Date End Date Lolis Moss MD PCP - General General Internal Medicine 04/15/[address] [facility] [address] KARINA [place] [address] documented as of this encounter
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
--- OUTSIDE RECORDS SUMMARY | 2022-03-18 11:33 | XMS_ITS | Encounter Summary ---
:1970 Author Organization [facility] [address] Care Team Providers Name Role Phone Lolis Moss MD Primary Care Provider Reason for Visit Reason Onset Date Comments Medication Refill 06/02/2018 Encounter Details Date Type Department Care Team Description 06/02/2018 Refill Neurology at [facility] Cameron Alves MD [facility] [place] [phone] [place] [address] [phone] (Wo rk) Social History Tobacco Use Types [...] Alves MD [facility] [address] [address] (Wo rk) documented as of this encounter Visit Diagnoses Not on filedocumented in this encounter Care Teams Mammalogy Teacher Relationship Specialty Start Date End Date Lolis Moss MD PCP - General General Internal Medicine 04/15/16 0 [facility] [address] KARINA SALTER [facility] [place] [address] documented as of this encounter
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
--- OUTSIDE RECORDS SUMMARY | 2022-03-18 11:33 | XMS_ITS | Encounter Summary ---
:1970 Author Organization [facility] [place] [address] Care Team Providers Name Role Phone Lolis Moss MD Primary Care Provider Reason for Visit Reason Onset Date Comments Medication Refill 03/03/2018 Encounter Details Date Type Department Care Team Description 03/03/2018 Refill Neurology at [facility] Cameron Alves MD [facility] [place] [address] [place] [address] [phone] (Wo rk) Social History Tobacco Use Types [...] MD [facility] [address] [place] [address] (Wo rk) documented as of this encounter Visit Diagnoses Not on filedocumented in this encounter Care Teams Cnc Manufacturing Engineer Relationship Specialty Start Date End Date Lolis Moss MD PCP - General General Internal Medicine 04/15/[address] [facility] [address] KARINA SALTER [facility] [place] [address] documented as of this encounter
--- OUTSIDE RECORDS SUMMARY | 2022-03-18 11:33 | XMS_ITS | Encounter Summary ---
:1970 [place] [address] Care Team Providers Name Role Phone Lolis Moss MD Primary Care Provider Reason for Visit Reason Onset Date Comments Other 04/22/2018 Encounter Details Date Type Department Care Team Description 04/22/2018 Telephone Neurology at [facility] Cameron Alves MD [facility] [place] [address] [place] [address] [place] [address] [phone] (Wo rk) Social History Tobacco Use Types [...] this encounter Miscellaneous Notes Telephone Encounter - Nataele March RN - 04/25/2018 12:22 PM EDT Prescription prepared in a separate encounter. Telephone Encounter - Darleen Tapia - 04/22/2018 10:31 AM EDT Caller: Hung up before I could get If not Pt / Relation to pt: [facility] Best time to reach caller: Anytime Before 2:30pm - Informed caller that nurse will call back by the end of the day Best number to reach caller: [phone] Reason for call: [facility] states they need to know how many headaches are documented a day for her prescription and that it needs to be stated from here on out. documented in this encounter Plan of Treatment Upcoming Encounters Date Type Specialty Care Team Description 04/14/2022 Office Visit Neurology Cameron Alves MD [facility] [address] [place] [address] (Wo rk) documented as of this encounter Visit Diagnoses Not on filedocumented in this encounter Care Teams Color Tester Relationship Specialty Start Date End Date Lolis Moss MD PCP - General General Internal Medicine 04/15/16 [address] [facility] [address] KARINA [place] [address] documented as of this encounter
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
--- OUTSIDE RECORDS SUMMARY | 2022-03-18 11:33 | XMS_ITS | Encounter Summary ---
:1970 Author Organization [facility] [place] [address] Care Team Providers Name Role Phone Lolis Moss MD Primary Care Provider Encounter Details Date Type Department Care Team Description 10/20/2017 Telephone Psychiatry and Behavioral Debra Gomez MD [facility] at [place] [id number] [place] [phone] Social History Tobacco Use Types Packs/Day Years [...] Encounter - Debra Munguia MD - 10/20/2017 1:49 PM EST Again called pt at [phone]. No answer. Left message. Awaiting callback. Also tried [phone], the pt's cell phone number provided at an earlier date by . No answer. Voicemail box full. Unable to leave message. documented in this encounter Plan of Treatment Upcoming Encounters Date Type Specialty Care Team Description 04/14/2022 Office Visit Neurology Cameron Alves MD [facility] [address] [place] [address] (Wo rk) documented as of this encounter Visit Diagnoses Not on filedocumented in this encounter Care Teams Collision Repair Technician Relationship Specialty Start Date End Date Lolis Moss MD PCP - General General Internal Medicine 04/15/[address] [facility] [address] KARINA [place] [address] documented as of this encounter
--- OUTSIDE RECORDS SUMMARY | 2022-03-18 11:33 | XMS_ITS | Encounter Summary ---
:1970 Author Organization [facility] [place] [address] Care Team Providers Name Role Phone Lolis Moss MD Primary Care Provider Encounter Details Date Type Department Care Team Description 11/01/2017 Office Visit Psychiatry and Debra Munguia n, unspecified depression type; Behavioral Health at [facility] [place] ELIANA (generalized anxiety disorder) [facility] [place] [address] [place], [place] [phone] (Work) [phone] Social History Tobacco Use Types Packs/Day Years [...] encounter Progress Notes Debra Munguia MD - 11/01/2017 2:00 PM EDT Outpatient Psychiatry Follow Up 11/01/2017 Lisseth Boone,a 47 y.o. female, for medication f/u. Duration: Pt reports a deterioration in mood, behavior, and thinking as the wean of klonopin progresses. WhenI get down to around 2 mg [total daily dose], I start doing the same thing with the erratic mood swings. Endorses wide mood swings, typically occurring at night. Endorses difficulty sleeping, typically getting 3- 4hrs per night. Endorses daytime fatigue. Does not think that the Seroquel is helping with sleep. Sleep in part disordered due to dogs waking her up. Concentration is all over the place but says that she is able to focus when reading. When I do mundane tasks like fold laundry... I tend to be able to focus but my thoughts start wandering. Reports that her motivation level is really low. Continues to endorse generalized anxiety and overthinking. Denies SI/HI. Adds that some days I just feel lethargic and sick and has been getting more migraines. Her mood swings will typically include extreme anger and yelling at her . The following day, she will feel remorseful. agrees. He adds that home has been rife with stressors, particularly since he himself came down with bronchitis recently. No episodes of dissociation or delusions since pt was last seen. Remains on disability. Exercises on her elliptical. Enjoys reading. Looking forward to gardening in the spring. Uses an tatyana called [employer] for meditation. Children doing well. Not currently in therapy. Current meds: Klonopin 0.75mg TID Cymbalta 60mg BID (prescribed by PCP) Seroquel 12.5mg BID prn, 100mg QHS (takes prn doses on a regular BID basis) topiramate 100mg nightly (for headaches, prescribed by Neurology) Denies EtOH use. Denies illicit drug use. Stopped smoking since last visit. History (from intake, updated where appropriate): Past Psychiatric History: Previous psychiatric treatment and medication trials: Lexapro - stopped long ago Zyprexa - stopped while inpt at [facility] (and dx of delirium felt more likely than psychosis), but laterrestarted by PCP; felt it helped her mood swings Lamotrigine - stopped while inpt at [facility] (and dx of delirium felt more likely than psychosis or BPAD) Wellbutrin - stopped during admission to [facility] Previous psychiatric hospitalizations: During the summer, pt was admitted to both [facility] and [facility] during episodes characterized [...] BX performed by David Hardy MD at [facility] ??? PRO UPPER GI ENDOSCOPY, BIOPSY N/A 02/11/2016 UPPER GASTROINTESTINAL ENDOSCOPY,WITH BIOPSY SINGLE OR MULTIPLE performed by David Hardy MD at [facility] ??? TUBAL LIGATION (Not in [...] movements Speech: Normal rate, rhythm, prosody Mood: just tired a little Affect: Full range, slightly irritable Thought Process: Linear, goal-directed Thought Content: Denies SI/HI. Not seen responding to internal stimuli. Sensorium: person, place, time/date and situation Cognition: grossly intact Insight: fair Judgment: fair Assessment - Diagnosis - Goals: 45yo F hx depression, ELIANA presents for follow up. As the taper of the klonopin continues, pt and have noted a regular nightly deterioration in mood lability, anger, agitation and irritability. Though not strictly the expected withdrawal symptoms, the persistence of this presentation and pt's firm belief that the sx and wean are correlated warrants a very careful and considerate approach to the wean. We discussed the ongoing need to adequately address her mood and anxiety sx without perpetually relying on clonazepam, a medication associated with harmful assisted effects. Pt is in agreement. We agreed, however, that for now we would halt the klonopin wean, keeping the dose exactly where it is, and that in the meantime she would pursue psychotherapy to help with her mood and anxiety sx as well as her psychological dependence on the benzo. She expressed understanding and agreement with plan.Called [facility] at [phone] re: placing a referral for pt to be seen there. They faxed over form needed for referral to be placed and they request that in addition to the referral form, that we send a demographic sheet on pt. We also discussed the value of having regular clinic visits, ideally monthly, such that we can eliminate the need for and the possible dangers inherent in conducting treatment via phone or email. Pt again agreed to the frequent visits. Treatment Plan/Recommendations: - Continue Quetiapine 12.5mg BID prn anxiety - Continue Quetiapine 100mg QHS - Continue duloxetine (prescribed by PCP) - Continue Klonopin 0.75 mg TID - Will fax referral info to [facility] next available appt, and monthly thereafter Safety: The patient does not appear to [...] Debra Munguia MD Jayla Amaya MD - 11/01/2017 2:00 PM EDT PSYCHIATRY TEACHING PHYSICIAN INVOLVEMENT Location: [facility], [address] Attending Physician: Jayla Amaya MD Resident [...] h/o dissociative episodes. Now down to Klonopin 2.25mg, fearful of going down further. Feelsmore irritable. Sleep is poor, but also related to her aging dog. Discussed holding the klonopin taper for a while while she engages in therapy. They have openings at her local community mental health clinic. We discussed the importance of this in her treatment, especially as the alternative of being on Klonopin for the rest of her life comes with many risks. No recent dissociative episodes. No SI orHI. No substance abuse. JAYLA AMAYA MD documented in this encounter Plan of Treatment Upcoming Encounters Date Type Specialty Care Team Description 04/14/2022 Office Visit Neurology Cameron Alves MD [facility] [place] [address] (Wo rk) documented as of this encounter Visit Diagnoses Diagnosis Depression, unspecified depression type ELIANA (generalized anxiety disorder) Generalized anxiety disorder documented in this encounter Care Teams Sludge Control Operator Relationship Specialty Start Date End Date Lolis Moss MD PCP - General General Internal Medicine 04/15/16 [address] [facility] [address] [place] [place] [address] documented as of this encounter
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
--- OUTSIDE RECORDS SUMMARY | 2022-03-18 11:33 | XMS_ITS | Encounter Summary ---
:1970 Author Organization [facility] [place] [address] Care Team Providers Name Role Phone Lolis Moss MD Primary Care Provider Reason for Visit Reason Comments Medication Refill Encounter Details Date Type Department Care Team Description 02/02/2018 Refill Internal Medicine at [facility] sandra Gimenez MD Fibromyalgia; [facility] Psoriatic arthritis [address] [place] [address] CARE [phone] [place], [place] [address] (Wo rk) Social History Tobacco [...] MD [facility] [address] [place] [address] (Wo rk) documented as of this encounter Visit Diagnoses Diagnosis Fibromyalgia Mylagia and myositis, unspecified Psoriatic arthritis Psoriatic arthropathy documented in this encounter Care Teams Dental Associate Relationship Specialty Start Date End Date Lolis Moss MD PCP - General General Internal Medicine 04/15/[address] [facility] [address] KARINA SALTER [facility] [place] [address] documented as of this encounter
--- OUTSIDE RECORDS SUMMARY | 2022-03-18 11:33 | XMS_ITS | Encounter Summary ---
:1970 Author Organization [facility] [place] [address] Care Team Providers Name Role Phone Lolis Moss MD Primary Care Provider Encounter Details Date Type Department Care Team Description 07/08/2018 Orders Only Psychiatry and Behavioral CubDinh lu MD [facility] Madiha [place] [address] [place] [address] [phone] (Wo rk) Social History Tobacco Use Types [...] Cameron Alves MD [facility] [address] [place] [place] [address] (Wo rk) documented as of this encounter Visit Diagnoses Not on filedocumented in this encounter Care Teams Elevator Attendant Relationship Specialty Start Date End Date Lolis Moss MD PCP - General General Internal Medicine 04/15/16 0 [facility] [address] [facility] [place] [address] documented as of this encounter
--- OUTSIDE RECORDS SUMMARY | 2022-03-18 11:33 | XMS_ITS | Encounter Summary ---
:1970 Author Organization [facility] [place] [address] Care Team Providers Name Role Phone Lolis Moss MD Primary Care Provider Encounter Details Date Type Department Care Team Description 08/05/2018 Telephone Neurology at [facility] [place] [place] Cameron Alves MD [facility] [place] [address] [place] [address] [phone] (Wo rk) Social History Tobacco Use Types [...] this encounter Miscellaneous Notes Telephone Encounter - Alexander, Anastasia Leach - 08/05/2018 9:01 AM EST Clinical Blue Leather Sorter message Caller: Lisseth If not Pt / Relation to pt: Call back number: [phone] Best time to reach caller if there are questions with medication refill request: Name of Med: SUMAtriptan (IMITREX) 100 mg Tablet Strength of Pills: 100mg Dosing Directions: 1 tablet, when needed 30 or 90 Day: Pharmacy: [facility] ([address] [place] [address]) Last Appointment: 05.12.17 Next Appointment: 09.21.18 Is Patient out of Medication?: YES documented in this encounter Plan of Treatment Upcoming Encounters Date Type Specialty Care Team Description 04/14/2022 Office Visit Neurology Cameron Alves MD [facility] [place], [place] [address] (Wo rk) documented as of [...] filedocumented in this encounter Care Teams Manager Home Improvement Relationship Specialty Start Date End Date Lolis Moss MD PCP - General General Internal Medicine 04/15/16 0 [facility] [address] KARINA [place] [address] documented as of this encounter
--- OUTSIDE RECORDS SUMMARY | 2022-03-18 11:33 | XMS_ITS | Encounter Summary ---
:1970 Author Organization [facility] [place] [address] Care Team Providers Name Role Phone Lolis Moss MD Primary Care Provider Reason for Visit Reason Comments Follow-up Medication Check interactions between meds an d food Encounter Details Date Type Department Care Team Description 01/25/2018 Office [facility] Pernell bleeding [address] [place] [address] [facility] [address] [phone] PRIMARY CARE [place], [place] [address] Social History Tobacco Use Types [...] Sign Reading Time Taken Comments Blood Pressure 110/72 01/25/2018 2:29 PM EDT Pulse 82 01/25/2018 2:29 PM EDT Temperature 36.4 ??C (97.5 ??F) 01/25/2018 2:29 PM EDT Respiratory Rate 23 01/25/2018 2:29 PM EDT Oxygen Saturation 100% 01/25/2018 2:29 PM EDT Inhaled Oxygen Concentration - - Weight 70.4 kg (155 lb 3.2 oz) 01/25/2018 2:29 PM EDT Height 160 cm (5' 3) 01/25/2018 2:29 PM EDT Body Mass Index 27.49 01/25/2018 2:29 PM EDT documented in this encounter Progress Notes Lolis Moss MD - 01/25/2018 2:30 PM EDT Irregular periods Bought some stuff for a keto diet Got diarrhea, bloody diarrhea--at the end, bright red blood, a little when she wiped, rectum was sore Which took four days to go away--things back to normal She has contracted for more boxes and would like a note that she should not take more of it She wondered about a PAP Has Hx of HPV positive, we have done just the one Has been having some irregular bleeding, and painful periods Have been irregular for the last six months Having a period about every 2 wks 4 days heavy bleeding Having some cramps Little chance of a (BTL) A lot of stress She panics about driving in the bad weather, makes difficult to work She had hoped word be transferred to new location, he likes [place] and his mom is elderly So mood has not been great Periods generally have been regular over the years Does not remember when mom had menopause No vasomotor symptoms Thinks she took depo shots in her 20s--suppressed her periods Has a large ovarian cyst 2004--had an operation Had painful periods at a time Quit smoking earlier this year, congratulated her PE BP 110/72 (BP Location (NBP): Right arm, Patient Position: Sitting, BP Cuff Sizes: Adult (25-34 cm))Comment (BP Cuff Sizes): long cuff Pulse 82 Temp 36.4 ??C (97.5 ??F) (Oral) Resp 23 Ht 160 cm (5' 3) Wt 70.4 kg (155 lb 3.2 oz) SpO2 100% BMI 27.49 kg/m2 Looks tired Good color External normal, vaginal mucosa normal with clear discharge, small amt of blood in the vault was swabbed away before PAP, cervix freely mobile, Uterus retroflexed, not completely palpated, no adnexal masses A/P 1. Abnormal uterine bleeding. Will check CBC for anemia, and transvaginal US. Based on results decide follow up She did quit smoking earlier this year, would be somewhat cautious with hormones both because of recent smoking and her mood. 2. She should not use more of the supplements for the keto diet documented in this encounter Plan of Treatment Upcoming Encounters Date Type Specialty Care Team Description 04/14/2022 Office Visit Neurology Cameron Alves MD [facility] er [address] [place], [place] [address] (Wo rk) documented as of this encounter Procedures Procedure Name Priority Date/Time Associated Comments Diagnosis HEMOGRAM Routine 01/25/2018 3:44 PM Abnormal uterine Resul ts for this EDT bleeding procedure are i n the results section. DIFFERENTIAL, AUTOMATED Routine 01/25/2018 3:44 PM Abnormal ut erine Results for this EDT bleeding procedure are i n the results section. CBC (WITH DIFF) Routine 01/25/2018 3:44 PM Abnormal uterine EDT bleeding CYTOPATHOLOGY Routine 01/25/2018 3:03 PM Abnormal uterine Resu lts for this GYNECOLOGICAL EDT bleeding procedure are in the results section. HPV Routine 01/25/2018 3:02 PM Results f or this EDT procedure are i n the results section. TRAINING TECHNICIAN CYTOLOGY Routine 01/25/2018 3:02 PM Results f or this INTERPRETATION EDT procedure are in the results section. TRAINING TECHNICIAN CYTOLOGY FINAL Routine 01/25/2018 3:02 PM Res ults for this REPORT EDT procedure are i n the results section. documented in this encounter Results (ABNORMAL) Differential, Automated (01/25/2018 3:44 PM EDT) [facility] Method Time Signature Neutrophils % 41.0 % [facility] Neutr Abs (ANC) 2.47 1.70 - [facility] 6.10 [facility] x10(3)/[facility] LABORATORY Lymphocytes % 35.3 % [facility] Lymphocytes Abs 2.1 0.9 - 3.2 [facility] x10(3)/[facility] LABORATORY Monocytes % 7.5 % [facility] Monocyte Abs 0.4 0.3 - 0.9 [facility] x10(3)/[facility] LABORATORY Eosinophils % 13.5 % [facility] Eosinophils Abs 0.8 (H) 0.0 - 0.4 [facility] x10(3)/[facility] LABORATORY Basophils % 2.2 % [facility] Basophils Abs 0.1 0.0 - 0.1 [facility] x10(3)/[facility] LABORATORY Immature Gran % 0.50 % [facility] Comment: Immature granulocytes(IG's)percentage an d absolute count will include metamyelocytes, myelocytes, and promyelo cytes. Blood smears from CBCs yielding IG's will be scanned manually for concor dance. If this scan disagrees with the automated IG or if promyelocytes are not ed, a manual differential will be performed. Rosangela Gran Abs 0.03 0.00 - 0.04 x10(3)/[facility] Specimen Anatomical Collection Method Collection Time Receive d Time (Source) Location / / Volume Laterality Blood specimen 01/25/2018 3:44 PM 018 6:36 (specimen) EDT PM EDT Resulting Agency Comment Spec In Lab Lolis Moss MD HEMATOLOGY ORDERABLES Performing Organization Address City/State/[place] [address] (ABNORMAL) Hemogram (01/25/2018 3:44 PM EDT) Analysis Performed At Patho logist Time Signature WBC 6.0 4.0 - 9.5 [facility] x10(3)/[facility] LABORATORY RBC 3.86 (L) 4.00 - [facility] 5.21 [facility] x10(6)/[facility] LAB[facility]ORY Hemoglobin 12.1 11.7 - [facility] 15.5 gm/dL [facility] Hematocrit 36.8 35.7 - [facility] 45.8 % [facility] MCV 95.3 (H) 82.6 - [facility] [place] 94.4 [facility] LABORATORY MCH 31.3 27.1 - [place] 32.0 pg [facility] MCHC 32.9 31.7 - [place] 35.0 gm/dL [facility] Platelets 349 145 - 357 [place] x10(3)/[facility] LABORATORY RDWSD 44.9 37.0 - [place] 46.0 [facility] LABORATORY RDWCV 12.8 11.5 - [place] 14.1 % [facility] MPV 13.4 (H) 7.6 - 12.9 [place] [facility] nRBC % Auto 0.0 % [facility] nRBC Abs Auto 0.000 0.000 - [place] 0.000 [facility] x10(3)/[facility] LABORATORY Specimen Anatomical Collection Method Collection Time Receive d Time (Source) Location / / Volume Laterality Blood specimen 01/25/2018 3:44 PM 018 6:36 (specimen) EDT PM EDT Resulting Agency Comment Spec In Lab Lolis Moss MD HEMATOLOGY ORDERABLES Performing Organization Address City/State/ZIP [place] [address] Cytopathology Gynecological (01/25/2018 3:03 PM EDT) Specimen Anatomical Collection Method Collection Time Receive d Time (Source) Location / / Volume Laterality AP Specimen 01/25/2018 3:03 PM 8 6:35 EDT PM EDT Narrative [facility] - 01/25/2018 6:35 PM EDT Specimen requisition ordered. ??Separate Pathology report to follow Resulting Agency Comment Spec In Lab Lolis Moss MD PATHOLOGY/CYTOLOGY ORDERABLE S Performing Organization Address City/State/ZIP [place] [address] Business Proposal Rep Cytology Final Report (01/25/2018 3:02 PM EDT) Component Value Ref Test Analysis Performed At [facility] gist Range Method Time Signature Business Proposal Rep Cytology [id number] ? Location: [facility] Final Report PINKY The signing pathologist has (i) examined the relevant preparation(s) for the [facility] specimen(s) and (ii) rendered or confirmed the diagnosis(es) . HOSPITAL LABORATORY . ? Business Proposal Rep Final DIAGNOSIS Infection and/or Reactive Repair Process Note: Reactive changes are p resent in the epithelial cells (benign cellular changes). This Pap test is negative for intraepithelial lesion or m alignancy. (NILM) For consensus guidelines for the management of c ervical cancer screening test results, please see: ?? http://www.asccp.org . Electronically signed by: ??Nita FRANK, Garry Gimenez Verified: ??02/08/2018 ?Cytopathologist Performed at: ??-[facility] Dept. of Pathology, [place], [place] DISCUSSION Shift in tashi suggestive of [...] Gen omics and Advanced Technology (CGAT) at [facility]. ? - Bright Ga, PhD, HCLD, Director-CGAT STATEMENT OF ADEQUACY Specimen submitted is satisfactory. Endocervical component present. CLINICAL INFORMATION HPV Option: ?Concurrent HPV and Pap CT/NG Option: ?? No Preparation: ? Liquid based Pap Specimen Source: ? Cervical/Endocervical LMP: ? 6/7/18 Hormones?: ? No Hysterectomy?: ? No ?: ? No ?: ? No I.U.D.?: ? No Pelvic Radiation: ?No Prior TRAINING TECHNICIAN Therapy?: ?Cryotherapy Hist Abnl Pap/Biopsy?: ?? Yes, history of previous abnormal Pap Hist of HPV Vaccine?: ?No . CLINICAL INFORMATION Hist of Smoking?: ?Yes Hist of KARLENE exposure?: ?? No ICD Diagnosis: ? Z91.89 Scr eening Pap, History Clinical High Risk Clinical Data, Significant Therapy and Clinical Impression ? ? : ?abnormal uterine bleedng This Pap Test has been evalu ated with the assistance of the [employer] Pap Test Imaging System. Note: The Pap test is a screening test for cervical cancer with an inherent false-negative rate dependent upon several variables. For further information please contact the [facility] Laboratory. Reference: Mckenna ART. Professor Of Geography of Pap Smear Results. In: Dede BS, Vlad HAMMER, valerie mckeon. The Pap Smear. [place]: Thomas, 2002: 71-77. Specimen (Source) Anatomical Collection Method Collection Time Re ceived Time Location / / Volume Laterality 01/25/2018 3:02 PM EDT Lolis Moss MD PATHOLOGY/CYTOLOGY ORDERABLE S Performing Organization Address City/State/ZIP [place] [address] TRAINING TECHNICIAN Cytology Interpretation (01/25/2018 3:02 PM EDT) [facility] Method Time Signature Business Proposal Rep Cytology NILM [facility] LABORATORY Comment: Business Proposal Rep Cytology Final Report Acces benny: [id number] Business Proposal Rep Cytology Comment Present [facility] Endocervical Component Present [facility] Specimen Anatomical Collection Method Collection Time Receive d Time (Source) Location / / Volume Laterality AP Specimen 01/25/2018 3:02 PM 8 1:37 EDT PM EDT Lolis Moss MD PATHOLOGY/CYTOLOGY ORDERABLE S Performing Organization Address City/State/ZIP Code Phon e Number [address] HPV (01/25/2018 3:02 PM EDT) [facility] Method Time Signature HPV 16 NEGATIVE NEGATIVE [facility] HPV 18 NEGATIVE NEGATIVE [facility] HPV Other HR NEGATIVE NEGATIVE [facility] HPV See Comment [facility] Interpretation [facility] Comment: NEGATIVE for high-risk HPV *. [...] Location / / Volume Laterality Cervical swab 01/25/2018 3:02 PM 01/26/20 18 7:16 (specimen) EDT PM EDT Resulting Agency Comment Spec In Lab Lolis Moss MD PATHOLOGY/CYTOLOGY ORDERABLE S Performing Organization Address City/State/ZIP [place] [address] documented in this encounter Visit Diagnoses Diagnosis Abnormal uterine bleeding Unspecified disorder of menstruation and other abnormal bleeding from female genital tract documented in this encounter Care Teams In Store Marketing Representative Relationship Specialty Start Date End Date Lolis Moss MD PCP - General General Internal Medicine 04/15/16 [address] [facility] [address] [place] [address] documented as of this encounter
--- OUTSIDE RECORDS SUMMARY | 2022-03-18 11:33 | XMS_ITS | Encounter Summary ---
:1970 Author Organization [facility] [place] [address] Care Team Providers Name Role Phone Lolis Moss MD Primary Care Provider Reason for Visit Reason Onset Date Comments Medication Refill 07/05/2018 Encounter Details Date Type Department Care Team Description 07/05/2018 Refill Neurology at [facility] Cameron Alves MD [facility] [place] [address] [place] [address] [phone] (Wo rk) Social History Tobacco Use Types [...] Alves MD [facility] Dr [address] [address] (Wo rk) documented as of this encounter Visit Diagnoses Not on filedocumented in this encounter Care Teams Laboratory Technologist Relationship Specialty Start Date End Date Lolis Moss MD PCP - General General Internal Medicine 04/15/16 [address] [facility] [address] KARINA SALTER [facility] [place] [address] documented as of this encounter
--- OUTSIDE RECORDS SUMMARY | 2022-03-18 11:33 | XMS_ITS | Encounter Summary ---
:1970 Author Organization [facility] [place] [address] Care Team Providers Name Role Phone Lolis Cobos MD Primary Care Provider Reason for Visit Reason Onset Date Comments Medication Refill 01/19/2018 Encounter Details Date Type Department Care Team Description 01/20/2018 Refill Internal Medicine at [facility] Adilene Jeter, [facility] [address] [place] [address] Social History Tobacco Use Types Packs/Day [...] this encounter Miscellaneous Notes Telephone Encounter - Domitila Jeter, [facility] - 01/20/2018 8:39 AM EDT From: Lisseth Boone To: Lolis Cobos MD Sent: 01/19/2018 5:55 PM EDT Subject: Medication Renewal Request Original authorizing provider: MD Lisseth BILLINGSLEYOndina Billaneudy would like a refill of the following medications: fexofenadine-pseudoephedrine (COREY-D 24) 180-240 mg Tablet Sustained Release 24 hr [LOLIS COBOS MD] Preferred pharmacy: [facility] [address] Comment: Dr. Cobos, Will you call in a refill for the Corey-D to the [facility]? I look forward to our appt next week. Lisseth Boone documented in this encounter Plan of Treatment Upcoming Encounters Date Type Specialty Care Team Description 04/14/2022 Office Visit Neurology Cameron Alves MD [facility] [place] [address] (Wo rk) documented as of this encounter Visit Diagnoses Not on filedocumented in this encounter Care Teams Bottle Gauger Relationship Specialty Start Date End Date Lolis Cobos MD PCP - General General Internal Medicine 04/15/[address] [facility] [address] [place]ARINA [place] [address] documented as of this encounter
--- OUTSIDE RECORDS SUMMARY | 2022-03-18 11:33 | XMS_ITS | Encounter Summary ---
:1970 Author Organization [facility] [place] [address] Care Team Providers Name Role Phone Lolis Cobos MD Primary Care Provider Reason for Visit Reason Onset Date Comments Medication Refill 08/03/2018 Encounter Details Date Type Department Care Team Description 08/03/2018 Refill Psychiatry and Behavioral Cubill iDnh babcock MD [facility] Madiha [place] [address] [place] [address] [phone] (Wo rk) Social History Tobacco Use Types [...] Telephone Encounter - Andrea Willis RN - 08/03/2018 10:09 AM EST From: Lisseth Boone Sent: 08/03/2018 12:14 AM EST Subject: Medication Renewal Request Lisseth Boone would like a refill of the following medications: clonazePAM (KLONOPIN) 0.5 mg Tablet [DINH GREENBERG MD] Preferred pharmacy: [facility] [address] [place] [address] Delivery method: Pickup Medication renewals requested in this message routed separately: fexofenadine-pseudoephedrine (OCREY-D 24) 180-240 mg Tablet Sustained Release 24 hr [LOLIS COBOS MD] documented in this encounter Plan of Treatment Upcoming Encounters Date Type Specialty Care Team Description 04/14/2022 Office Visit Neurology Cameron Alves MD [facility] er [place], [place] [address] (Wo rk) documented as of this encounter Visit Diagnoses Not on filedocumented in this encounter Care Teams Hand Bookbinder Relationship Specialty Start Date End Date Lolis Cobos MD PCP - General General Internal Medicine 04/15/16 [address] [facility] [address] [place] [address] documented as of this encounter
--- OUTSIDE RECORDS SUMMARY | 2022-03-18 11:33 | XMS_ITS | Encounter Summary ---
:1970 Author Organization [facility] Address [facility] [place] [address] Care Team Providers Name Role Phone Lolis Moss MD Primary Care Provider Encounter Details Date Type Department Care Team Description 06/30/2018 Orders Only Neurology at [facility] Umair Ivory, Altered mental status, [facility] unspecified altered Drive [facility] [place] [address] NEUROLOGY DEPT. [place], [place] [address] Social History Tobacco Use Types [...] Neurology Cameron Alves MD [facility] er [place] [address] (Wo rk) documented as of this encounter Visit Diagnoses Diagnosis Altered mental status, unspecified alter ed mental status type documented in this encounter Care Teams Physical Therapy Supervisor Relationship Specialty Start Date End Date Lolis Msos MD PCP - General General Internal Medicine 04/15/[address] [facility] [address] KARINA [facility] [address] documented as of this encounter
--- OUTSIDE RECORDS SUMMARY | 2022-03-18 11:33 | XMS_ITS | Encounter Summary ---
:1970 Author Organization [facility] [place] [address] Care Team Providers Name Role Phone Lolis Moss MD Primary Care Provider Reason for Visit Reason Onset Date Comments Medication Refill 09/07/2018 Encounter Details Date Type Department Care Team Description 09/07/2018 Refill Neurology at [facility] Umair Ivory [place] [address] NEUROLOGY DEPT. [phone] [place], [place] [address] (Wo rk) Social History Tobacco [...] Telephone Encounter - Christi Mendoza RN - 09/07/2018 3:19 PM EST Rx written for Topamax 25 mg tabs 4 tabs by mouth twice a day #60 tabs and 10 refill Will clarify with Dr. Villa dose and dispense then call pharmacy back Telephone Encounter - Amanda Christiansen - 09/07/2018 2:56 PM EST Clinical Foreclosure Paralegal Message Caller: Haydee If not Pt / Relation to pt: [facility] Call back Number: Best time to reach caller: Anytime Reason for call: Medication verification Message/information for the nurse: Haydee at [facility] called to get verification on the patient's Topiramate dosing and strength. Disposition of Call ?? Routine Message sent to the Nurse documented in this encounter Plan of Treatment Upcoming Encounters Date Type Specialty Care Team Description 04/14/2022 Office Visit Neurology Cameron Alves MD [facility] er [place], [place] [address] (Wo rk) documented as of this encounter Visit Diagnoses Not on filedocumented in this encounter Care Teams Computer Numeric Control Setter Relationship Specialty Start Date End Date Lolis Moss MD PCP - General General Internal Medicine 04/15/16 0 [facility] [address] [place]AR[place] [address] documented as of this encounter
--- OUTSIDE RECORDS SUMMARY | 2022-03-18 11:33 | XMS_ITS | Encounter Summary ---
:1970 Author Organization [facility] [place] [address] Care Team Providers Name Role Phone Lolis Moss MD Primary Care Provider Reason for Visit Reason Onset Date Comments Medication Refill 04/04/2018 Encounter Details Date Type Department Care Team Description 04/04/2018 Refill Psychiatry and Behavioral Temitope Willis, RN [facility] at [facility] [place] [address] Social History Tobacco Use Types Packs/Day [...] Cameron Alves MD [facility] [address] [address] (Wo rk) documented as of this encounter Visit Diagnoses Not on filedocumented in this encounter Care Teams Mannequin Refinisher Relationship Specialty Start Date End Date Lolis Moss MD PCP - General General Internal Medicine 04/15/[address] [facility] [address] [place]ARINA [place] [address] documented as of this encounter
--- OUTSIDE RECORDS SUMMARY | 2022-03-18 11:33 | XMS_ITS | Encounter Summary ---
:1970 Author Organization [facility] [place] [address] Care Team Providers Name Role Phone Lolis Moss MD Primary Care Provider Encounter Details Date Type Department Care Team Description 07/09/2018 Orders Only Psychiatry and Behavioral CubDinh lu MD [facility] Madiha [place] [address] [place] [address] [phone] (Wo rk) Social History Tobacco Use Types [...] Alves MD [facility] [address] [place] [address] (Wo rk) documented as of this encounter Visit Diagnoses Not on filedocumented in this encounter Care Teams Sales Enablement Specialist Relationship Specialty Start Date End Date Lolis Moss MD PCP - General General Internal Medicine 04/15/16 [address] [facility] [address] KARINA [place] [address] documented as of this encounter
--- OUTSIDE RECORDS SUMMARY | 2022-03-18 11:33 | XMS_ITS | Encounter Summary ---
:1970 Author Organization [facility] Address [facility] [place] [address] Care Team Providers Name Role Phone Lolis Moss MD Primary Care Provider Reason for Visit Reason Onset Date Comments Medication Refill 03/22/2018 Encounter Details Date Type Department Care Team Description 03/22/2018 Refill Neurology at [facility] Cameron Alves, Migraine with aura and [facility] MD without status Drive [facility] migrainosus, [place] [address] [address] mendes [phone] [place], [place] [address] (Wo rk) Social History Tobacco [...] 04/14/2022 Office Visit Neurology Cameron Alves MD [facility] er [place] [address] (Wo rk) documented as of this encounter Visit Diagnoses Diagnosis Migraine with aura and without status mi grainosus, not intractable Migraine with aura, without mention of i ntractable migraine without mention of status migrainosus documented in this encounter Care Teams Press Reader Relationship Specialty Start Date End Date Lolis Moss MD PCP - General General Internal Medicine 04/15/[address] [facility] [address] KARINA SALTER [facility] [place] [address] documented as of this encounter
--- OUTSIDE RECORDS SUMMARY | 2022-03-18 11:33 | XMS_ITS | Encounter Summary ---
:1970 Author Organization [place] [address] Care Team Providers Name Role Phone Lolis Moss MD Primary Care Provider Reason for Visit Reason Onset Date Comments Medication Refill 12/09/2017 Encounter Details Date Type Department Care Team Description 12/09/2017 Refill Psychiatry and Behavioral Silver Debra ortiz MD [facility] [place] [address] [place] [address] [phone] Social History Tobacco Use Types Packs/Day Years [...] MD [facility] er [address] [place] [address] (Wo rk) documented as of this encounter Visit Diagnoses Not on filedocumented in this encounter Care Teams Buffing Line Set Up Worker Relationship Specialty Start Date End Date Lolis Moss MD PCP - General General Internal Medicine 04/15/[address] [facility] [address] KARINA SALTER [facility] [place] [address] documented as of this encounter
--- OUTSIDE RECORDS SUMMARY | 2022-03-18 11:33 | XMS_ITS | Encounter Summary ---
:1970 [address] [facility] [place] [address] Care Team Providers Name Role Phone Lolis Moss MD Primary Care Provider Encounter Details Date Type Department Care Team Description 12/23/2017 [address] [facility] [address] [place] [address] Social History Tobacco Use Types Packs/Day Years [...] this encounter Miscellaneous Notes Telephone Encounter - Annie Leslie - 12/23/2017 8:17 AM EDT Patient no-showed 12/22/17 appointment. Per no show policy, I called to do a safety check on patient and to reschedule no showed appointment. Left a message reminding patient to call Primary care office to cancel appointment prior to the appointment time. ?? documented in this encounter Plan of Treatment Upcoming Encounters Date Type Specialty Care Team Description 04/14/2022 Office Visit Neurology Cameron Alves MD [facility] [address] [place] [address] (Wo rk) documented as of this encounter Visit Diagnoses Not on filedocumented in this encounter Care Teams Ecologist Technician Relationship Specialty Start Date End Date Lolis Moss MD PCP - General General Internal Medicine 04/15/[address] [facility] [address] KARINA [place] [address] documented as of this encounter
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
--- OUTSIDE RECORDS SUMMARY | 2022-03-18 11:33 | XMS_ITS | Encounter Summary ---
:1970 Author Organization [facility] [place] [address] Care Team Providers Name Role Phone Lolis Moss MD Primary Care Provider Reason for Visit Reason Onset Date Comments Medication Refill 02/02/2018 Encounter Details Date Type Department Care Team Description 02/02/2018 Refill Psychiatry and Behavioral Temitope Willis, RN [facility] at [facility] [place] [address] Social History Tobacco Use Types Packs/Day [...] Alves MD [facility] [address] [place] [address] (Wo rk) documented as of this encounter Visit Diagnoses Not on filedocumented in this encounter Care Teams Career Center Advisor Relationship Specialty Start Date End Date Lolis Moss MD PCP - General General Internal Medicine 04/15/16 [address] [facility] [address] [place] [address] documented as of this encounter
--- OUTSIDE RECORDS SUMMARY | 2022-03-18 11:33 | XMS_ITS | Encounter Summary ---
:1970 Author Organization [facility] [place] [address] Care Team Providers Name Role Phone Lolis Moss MD Primary Care Provider Reason for Visit Reason Onset Date Comments Prior Authorization 08/25/2017 chantix Encounter Details Date Type Department Care Team Description 08/25/2017 Telephone Internal Medicine at [facility] Mason Pr ior Authorization [facility] (chantix) [address] [place] [address] Social History Tobacco Use Types Packs/Day [...] Telephone Encounter - Alice Mason CMA - 08/27/2017 8:19 AM EST Medication Prior Authorization for Primary [place] [address] Approve: X Start Date: 08/26/2017 End Date: 08/26/2018 Case/Reference #: [id number] Telephone Encounter - Alice Mason CMA - 08/25/2017 3:29 PM EST Medication Prior Authorization for Primary [place] [address] Patient: Lisseth Boone Patient : 1970 Subscriber Insurance: [employer] Phone #: [phone] Sent via: [employer] [place]/Fax#: [phone] Physician: Lolis Moss MD Return Medication Requested: Chantix Strength: 1 mg Frequency: take 1 tablet by mouth 2 times daily with meals Disp.: 60 Refills: 1 Currently taking: no If yes, how long: Diagnosis for this medication: ready to quit smoking ICD-10 code: F17.200 Prior medications trialed in this patient: Nicoderm 7 mg 2571-9911 Nicoderm 14 mg 3513-1984 Nicoderm 21 mg 9045-6775 documented in this encounter Plan of Treatment Upcoming Encounters Date Type Specialty Care Team Description 04/14/2022 Office Visit Neurology Cameron Alves MD [facility] er [place], [place] [address] (Wo rk) documented as of this encounter Visit Diagnoses Not on filedocumented in this encounter Care Teams Grinder Set Up Operator Internal Relationship Specialty Start Date End Date Lolis Moss MD PCP - General General Internal Medicine 04/15/16 [address] [facility] [address] [place]ARINA [place] [address] documented as of this encounter
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
--- OUTSIDE RECORDS SUMMARY | 2022-03-18 11:33 | XMS_ITS | Encounter Summary ---
:1970 Author Organization [facility] [place] [address] Care Team Providers Name Role Phone Travis Torres MD Primary Care Provider Reason for Visit Reason Onset Date Comments Medication Refill 08/03/2018 Encounter Details Date Type Department Care Team Description 08/03/2018 Refill Neurology at [facility] Cameron Alves, Migraine with aura and witho ut status migrainosus, not intractable; [facility] Migraine without aura and without status migrainosus, [place] [address] [place], [place] [address] (Wo rk) Social History Tobacco [...] MD [facility] [address] [place] [address] (Wo rk) documented as of this encounter Visit Diagnoses Diagnosis Migraine with aura and without status mi grainosus, not intractable Migraine with aura, without mention of i ntractable migraine without mention of status migrainosus Migraine without aura and without status migrainosus, not intractable Migraine without aura, without mention o f intractable migraine without mention of status migrainosus documented in this encounter Care Teams Grinder Set Up Operator Universal Relationship Specialty Start Date End Date Travis Torres MD PCP - General Family Medicine 01/09/22 [address] [place] [address] documented as of this encounter
--- OUTSIDE RECORDS SUMMARY | 2022-03-18 11:33 | XMS_ITS | Encounter Summary ---
:1970 Author Organization [facility] [place] [address] Care Team Providers Name Role Phone Lolis Moss MD Primary Care Provider Reason for Visit Reason Onset Date Comments Medication Refill 01/11/2018 Encounter Details Date Type Department Care Team Description 01/11/2018 Refill Neurology at [facility] Cameron Alves MD [facility] [place] [address] [place] [address] [phone] (Wo rk) Social History Tobacco Use Types [...] MD [facility] [address] [place] [address] (Wo rk) documented as of this encounter Visit Diagnoses Not on filedocumented in this encounter Care Teams Manager Social Media Relationship Specialty Start Date End Date Lolis Moss MD PCP - General General Internal Medicine 04/15/16 [address] [facility] [address] KARINA SALTER [facility] [place] [address] documented as of this encounter
--- OUTSIDE RECORDS SUMMARY | 2022-03-18 11:33 | XMS_ITS | Encounter Summary ---
:1970 Author Organization [facility] [place] [address] Care Team Providers Name Role Phone Lolis Moss MD Primary Care Provider Reason for Visit Reason Onset Date Comments Other 08/08/2018 Encounter Details Date Type Department Care Team Description 08/08/2018 Telephone Internal Medicine at [facility] Stephie Grady Stanley Other [address] [place] [address] Social History Tobacco Use Types Packs/Day [...] this encounter Miscellaneous Notes Telephone Encounter - Stephie Grady - 08/08/2018 11:02 AM EST Message: Patient called to try and get sumatriptan refilled by Lolis Moss MD because usual prescriber hasnt seen her in a year and wont prescribe until he sees her in September. Pt is completelyout. She states she needs to pick this medicine up before 6PM at [facility] in [place]. Caller and relationship (if other than patient-full name): pt Best time to call back: KAMALA Ok to leave a message: [y] Ok to send my-DH message: [n] Offered Appointment: n MA/Nurse contacted via: Message: Call: Pager: documented in this encounter Plan of Treatment Upcoming Encounters Date Type Specialty Care Team Description 04/14/2022 Office Visit Neurology Cameron Alves MD [facility] [address] [place] [address] (Wo rk) documented as of [...] filedocumented in this encounter Care Teams Retail Area Manager Relationship Specialty Start Date End Date Lolis Moss MD PCP - General General Internal Medicine 04/15/16 [address] [facility] [place] [address] documented as of this encounter
--- OUTSIDE RECORDS SUMMARY | 2022-03-18 11:33 | XMS_ITS | Encounter Summary ---
:1970 Author Organization [facility] [place] [address] Care Team Providers Name Role Phone Lolis Moss MD Primary Care Provider Encounter Details Date Type Department Care Team Description 10/21/2017 Telephone Psychiatry and Behavioral Debra Gomez MD [facility] [place] [id number] [place] [phone] Social History Tobacco Use Types Packs/Day Years [...] Telephone Encounter - Debra Munguia MD - 10/21/2017 10:03 AM EST Encounter opened in error documented in this encounter Plan of Treatment Upcoming Encounters Date Type Specialty Care Team Description 04/14/2022 Office Visit Neurology Cameron Alves MD [facility] [address] [place] [address] (Wo rk) documented as of this encounter Visit Diagnoses Not on filedocumented in this encounter Care Teams On Site Property Manager Relationship Specialty Start Date End Date Lolis Moss MD PCP - General General Internal Medicine 04/15/16 [address] [facility] [address] [place] [address] documented as of this encounter
--- OUTSIDE RECORDS SUMMARY | 2022-03-18 11:34 | XMS_ITS | Encounter Summary ---
:1970 Author Organization [facility] [place] [address] Care Team Providers Name Role Phone Lolis Moss MD Primary Care Provider Encounter Details Date Type Department Care Team Description 08/25/2016 Telephone Psychiatry and Behavioral [place] [address] [place] [phone] Social History Tobacco Use Types Packs/Day Years Used Date Former Smoker Cigarettes 0 15 Quit: 12/09/19 03 Smokeless Tobacco: Never Used Alcohol Use Standard Drinks/Week Comments Yes 0 [...] Telephone Encounter - Debra Munguia MD - 08/25/2016 4:48 PM EST Called pt re: today's missed appt. No answer. Left message. Awaiting call back. documented in this encounter Plan of Treatment Upcoming Encounters Date Type Specialty Care Team Description 04/14/2022 Office Visit Neurology Cameron Alves MD [facility] [place] [address] (Wo rk) documented as of this encounter Visit Diagnoses Not on filedocumented in this encounter Care Teams Client Professional Relationship Specialty Start Date End Date Lolis Moss MD PCP - General General Internal Medicine 04/15/16 0 [facility] [address] [place] [address] documented as of this encounter
--- OUTSIDE RECORDS SUMMARY | 2022-03-18 11:34 | XMS_ITS | Encounter Summary ---
:1970 Author Organization [facility] [place] [address] Care Team Providers Name Role Phone Lolis Moss MD Primary Care Provider Encounter Details Date Type Department Care Team Description 05/03/2017 Office Visit Psychiatry and Debra Munguia ELIANA (gene ralized anxiety disorder); Behavioral Health at , Depression, unspecified depression type [facility] [place] [address] [place], [place] [phone] (Work) [phone] Social History Tobacco Use Types Packs/Day Years [...] Sign Reading Time Taken Comments Blood Pressure 131/88 05/03/2017 9:31 AM EDT Pulse 94 05/03/2017 9:31 AM EDT Temperature - - Respiratory Rate - - Oxygen Saturation - - Inhaled Oxygen Concentration - - Weight 74.8 kg (164 lb 12.8 oz) 05/03/2017 9:31 AM EDT Height 160.7 cm (5' 3.25) 05/03/2017 9:31 AM EDT Body Mass Index 28.96 05/03/2017 9:31 AM EDT documented in this encounter Patient Instructions Patient InstructionsDebra Munguia MD - 05/03/2017 9:30 AM EDT In case of emergency, please go to your closest Emergency Department or call 911. Alternatively, if in acute crisis or are feeling unsafe, you can call the [facility] crisis number [phone]. You may also contact the [facility] crisis line at [phone] if you reside locally in [place]. You may contact [facility] crisis line at [phone] if you live locally in [place]. documented in this encounter Progress Notes Debra Munguia MD - 05/03/2017 9:30 AM EDT Outpatient Psychiatry Follow Up 05/03/2017 Lisseth Boone,a 46 y.o. female, for medication f/u. Duration: Doing really well. Significantly, didn't fall apart on anniversary of grandmother's . Klonopinean appears to be going smoothly. Sleeping well except for a recent cold. Appetite ok, again except for the URI. Energy and concentration ok, aside from recent sickness. Denies SI/HI. Denies AVH. Anxiety also improved. Daughter started HS, causing some distress, though she is thus far doing well. Son in shobha year at college. Pt also looking into buying a house. Involved in an online support group called [employer]. 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 Also involved in reading, writing, book club online. Recalls having had a great summer. Current meds: Klonopin 0.875 mg BID, 1mg daily Cymbalta 60mg BID Seroquel 12.5mg BID prn, 100mg QHS (takes prn doses BID) History (from intake, updated where appropriate): Past Psychiatric History: Previous psychiatric treatment and medication trials: Lexapro - stopped long ago Zyprexa - stopped while inpt at [facility] (and dx of delirium felt more likely than psychosis), but restarted by PCP; feels it helps her mood swings Lamotrigine - stopped while inpt at [facility] (and dx of delirium felt more likely than psychosis or BPAD) Wellbutrin - stopped during admission [facility] Previous psychiatric hospitalizations: [facility] 03/28/16 - 04/01/16 [facility] Previous diagnoses: Depression, ELIANA Previous suicide attempts: None Substance Abuse History: Use of Alcohol: Denies. Use of Caffeine: 2 cups per day [...] BX performed by David Hardy MD at [facility] ??? PRO UPPER GI ENDOSCOPY, BIOPSY N/A 02/11/2016 UPPER GASTROINTESTINAL ENDOSCOPY,WITH BIOPSY SINGLE OR MULTIPLE performed by David Hardy MD at [facility] ??? TUBAL LIGATION (Not in a [...] Grandmother ??? Breast Cancer Paternal Grandmother 72 Review Of Systems: Current Evaluation: Ambulates independently. No abnormal movements. Mental Status Evaluation: Appearance: age appropriate, casually dressed and within normal Limits Behavior: No psychomotor agitation or retardation, no abnormal movements Speech: Normal rate, rhythm, prosody Mood: good Affect: Full, mood-congruent Thought Process: Linear, goal-directed Thought Content: Denies SI/HI. No AVH. Sensorium: person, place, time/date and situation Cognition: grossly intact Insight: fair Judgment: fair Assessment - Diagnosis - Goals: 45yo F hx depression, ELIANA presents for follow up. Pt stable on current regimen, with both depressionand anxiety under good control. Pt appears to be tolerating klonopin wean well. Will thus continue with the wean as planned. Had earlier discussed the possibility of pt undergoing psychiatric testing to gain further diagnostic clarity re: pt's earlier dissociative and psychotic episodes. This testing is available at [facility] Will further look into possibility of arranging testing there. Treatment Plan/Recommendations: - Continue Quetiapine 12.5mg BID prn anxiety - Continue Quetiapine 100mg QHS - Continue duloxetine - Klonopin wean: Reduce total daily dose by 0.125mg monthly - RTC 3mo Review with patient: Treatment plan reviewed with the patient. Medication risks/benefit reviewed with the patient Debra Munguia MD Porfirio Wilson MD - 05/03/2017 9:30 AM EDT PSYCHIATRY TEACHING PHYSICIAN INVOLVEMENT Attending Physician: Porfirio Wilson MD Resident name: Esther Beckwith MD I saw and evaluated the patient with the above named resident/ See their note for details. I reviewed the patient's history during the visit and I agree with the details as written. My exam confirms the resident's findings. The assessment and plan were formulated in discussion with me and I agree with them as documented. Major Issues discussed: PSYCHIATRY TEACHING PHYSICIAN INVOLVEMENT Attending Physician: Porfirio Wilson MD Resident name: Debra Munguia MD I saw and evaluated the patient with the above named resident/ See their note for details. I reviewed the patient's history during the visit and I agree with the details as written. My exam confirms the resident's findings. The assessment and plan were formulated in discussion with me and I agree with them as documented. Major Issues discussed: Pt with sx of Anxiety and depession, but most problematic has been dissociative episodes -apparentlyassociated with past attempts to decrease Klonopin. Pt now decreasing by 0.125 mg monthly and doing well.No dissociation reported. Will continue same regimen. No other med changes. documented in this encounter Plan of Treatment Upcoming Encounters Date Type Specialty Care Team Description 04/14/2022 Office Visit Neurology Cameron Alves MD [facility] [place] [address] (Wo rk) documented as of this encounter Visit Diagnoses Diagnosis ELIANA (generalized anxiety disorder) Generalized anxiety disorder Depression, unspecified depression type documented in this encounter Care Teams Product Accountant Relationship Specialty Start Date End Date Lolis Moss MD PCP - General General Internal Medicine 04/15/16 0 [facility] DR [facility] [place] [id number] documented as of this encounter
--- OUTSIDE RECORDS SUMMARY | 2022-03-18 11:34 | XMS_ITS | Encounter Summary ---
:1970 Author Organization [facility] [place] [address] Care Team Providers Name Role Phone Lolis Moss MD Primary Care Provider Reason for Visit Reason Comments Medication Refill Encounter Details Date Type Department Care Team Description 12/06/2016 [facility] [address] [place] [address] [place] [address] [phone] (Wo rk) Social History Tobacco Use Types Packs/Day Years Used Date Current Every Day Smoker Cigarettes 1 15 Candelario t: 12/08/2002 Smokeless Tobacco: Never [...] Alves MD [facility] [place] [address] (Wo rk) documented as of this encounter Visit Diagnoses Not on filedocumented in this encounter Care Teams Evp General Counsel Relationship Specialty Start Date End Date Lolis Moss MD PCP - General General Internal Medicine 04/15/16 [address] [facility] [address] [facility] [place] [address] documented as of this encounter
--- OUTSIDE RECORDS SUMMARY | 2022-03-18 11:34 | XMS_ITS | Encounter Summary ---
:1970 Author Organization [facility] [place] [address] Care Team Providers Name Role Phone Lolis Moss MD Primary Care Provider Encounter Details Date Type Department Care Team Description 10/22/2016 Hospital [place] [address] Social History Tobacco Use Types Packs/Day Years [...] Sig Dispensed Refills Start Date End Date multivitamin (THERAGRAN) Take 1 tablet by 0 Tablet mouth daily. riboflavin, vitamin B2, Take 1 tablet by 30 tablet 11 2015 100 mg TabletIndications: mouth daily. Headache(784.0) celecoxib (CELEBREX) 200 Take 200 mg by 0 013 03/08/2017 mg Capsule mouth. omeprazole (PRILOSEC) 20 TAKE 1 CAPSULE BY 0 12/1405/12/2017 mg Capsule, Delayed MOUTH DAILY FOR Release(E.C.) STOMACH baclofen (LIORESAL) 20 mg Take 1 tablet by 270 tablet 1 09/1703/16/2017 Tablet mouth 3 times daily. QUEtiapine (SEROQUEL) 25 Take 0.5 tablets 30 tablet 1 09/2811/23/2016 mg Tablet by mouth 2 times daily as needed (for anxiety). QUEtiapine (SEROQUEL) 50 Take 1 to 2 60 tablet 1 09/28/2016 11/23/2016 mg Tablet tablets at night for sleep. clonazePAM (KLONOPIN) 1 mg Take 1 tablet by 90 tablet 0 10/26/2016 Tablet mouth 3 times daily. SUMAtriptan-Naproxen One PO for 9 tablet 11 09/21/2016 10/0 04/2017 85-500 mg migraine, max TabletIndications: 2/day, max 2 days Migraine without aura and per week without status migrainosus, not intractable diphenhydrAMINE (BENADRYL) Take 25 mg by 0 11/16/2016 25 mg Capsule mouth every 6 hours as needed for Itching. Reported on 09/21/2016 SUMAtriptan (IMITREX 6 mg SC for 1 each 11 09/09/201610/2016 STATDOSE PEN) 6 mg/0.5 mL migraine , max 2 Pen InjectorIndications: shots per day or Migraine with aura and one shot + one without status eden pill migrainosus, not intractable DULoxetine (CYMBALTA) 60 Take 1 capsule by 180 tablet 0 08/1712/06/2016 mg Capsule, Delayed mouth 2 times Release(E.C.) daily. SUMAtriptan Succinate 6 6 mg SC for 4 kit 1 06/02/2016 03/08/2017 mg/0.5 mL migraine, max 2 CartridgeIndications: shots per day Migraine with aura and without status migrainosus, not intractable fexofenadine-pseudoephedri Take 1 tablet by 1 tablet 0 12/201511/11/2017 ne (COREY-D 24) 180-240 mouth daily. mg Tablet Sustained Release 24 hr SUMAtriptan (IMITREX) 100 One PO for 9 tablet 11 04/08/2016 11/16/2016 mg TabletIndications: migraine , max Migraine with aura and 2/day, max 2 days without status per week migrainosus, not intractable candesartan (ATACAND) 16 Take 1 tablet by 30 tablet 11 04/0804/08/2017 mg TabletIndications: mouth every Migraine with aura and evening. without status migrainosus, not intractable ferrous sulfate 325 mg (65 Take 1 tablet by 7 tablet 0 09/18/2019 mg iron) Tablet, Delayed mouth daily. Release (E.C.) esomeprazole (NEXIUM) 40 Take 1 capsule by 60 capsule 02/1311/27/2016 mg Capsule, Delayed mouth 2 times Release(E.C.) daily. sucralfate (CARAFATE) 1 Take 1 tablet by 120 tablet 5 201506/03/2018 gram Tablet mouth 4 times daily. topiramate (TOPAMAX) 100 Take 1 tablet by 30 tablet 11 12/0801/13/2017 mg TabletIndications: mouth nightly. Headache(784.0) folic acid (FOLVITE) 1 mg Take 1 tablet by 30 tablet 12 10/1406/03/2018 tablet mouth daily. documented as of this encounter Plan of Treatment Upcoming Encounters Date Type Specialty Care Team Description 04/14/2022 Office Visit Neurology Cameron Alves MD [facility] [place], [place] [address] (Wo rk) documented as of this encounter Visit Diagnoses Not on filedocumented in this encounter Care Teams Reheater Helper Relationship Specialty Start Date End Date Lolis Moss MD PCP - General General Internal Medicine 04/15/[address] [facility] [address] [facility] [place] [address] documented as of this encounter
--- OUTSIDE RECORDS SUMMARY | 2022-03-18 11:34 | XMS_ITS | Encounter Summary ---
:1970 Author Organization [facility] [place] [address] Care Team Providers Name Role Phone Lolis Moss MD Primary Care Provider Encounter Details Date Type Department Care Team Description 08/28/2016 Telephone Psychiatry Debra Munguia [place] [address] [place] [address] [place] [phone] (Wo rk) Social History Tobacco Use Types [...] Telephone Encounter - Debra Munguia MD - 08/28/2016 5:21 PM EST Called at pt's request. Reports feeling better. Denies AVH. No SI/HI. Reports feeling safe. Reiterated that had crisis numbers and would call in emergency. Pt also stated plans to look for therapist onpsychologyDelectable and to follow up with neurology as scheduled. documented in this encounter Plan of Treatment Upcoming Encounters Date Type Specialty Care Team Description 04/14/2022 Office Visit Neurology Cameron Alves MD [facility] [address] [place] [address] (Wo rk) documented as of this encounter Visit Diagnoses Not on filedocumented in this encounter Care Teams Typewriter Tester Relationship Specialty Start Date End Date Lolis Moss MD PCP - General General Internal Medicine 04/15/16 [address] [facility] [address] [place] [address] documented as of this encounter
--- OUTSIDE RECORDS SUMMARY | 2022-03-18 11:34 | XMS_ITS | Encounter Summary ---
:1970 Author Organization [facility] [place] [address] Care Team Providers Name Role Phone Lolis Moss MD Primary Care Provider Encounter Details Date Type Department Care Team Description 08/04/2016 Telephone Psychiatry and Behavioral [place] [address] [place] [phone] Social History Tobacco Use Types Packs/Day Years [...] Telephone Encounter - Debra Munguia MD - 08/04/2016 2:23 PM EST [facility] pharmacy reporting that insurance company says pt cannot refill med until tmrw. Asked that they call insurance co and then call pt to update her. Called pt to let her know to expect call from pharmacy re: jeaneonopin refill. Telephone Encounter - Debra Munguia MD - 08/04/2016 2:23 PM EST ----- Message from January Pérez sent at 08/04/2016 1:19 PM EST ----- Regarding: prescription pickle solution maker Patient called and would like to speak with you regarding picking up her prescription for Klonopin today, apparently the pharmacy stated she could not get it until tomorrow but patient is stating she would be unable to get it tomorrow and wants to pick it up today. Patient uses the [facility] in [place] and their number is [phone], thank you. documented in this encounter Plan of Treatment Upcoming Encounters Date Type Specialty Care Team Description 04/14/2022 Office Visit Neurology Cameron Alves MD [facility] [address] [place] [address] (Wo rk) documented as of this encounter Visit Diagnoses Not on filedocumented in this encounter Care Teams Mill Stenciler Relationship Specialty Start Date End Date Lolis Moss MD PCP - General General Internal Medicine 04/15/[address] [facility] [address] [place] [address] documented as of this encounter
--- OUTSIDE RECORDS SUMMARY | 2022-03-18 11:34 | XMS_ITS | Encounter Summary ---
:1970 Author Organization [facility] [place] [address] Care Team Providers Name Role Phone Lolis Moss MD Primary Care Provider Reason for Visit Reason Onset Date Comments Other 03/17/2017 Encounter Details Date Type Department Care Team Description 03/17/2017 Telephone Neurology at [facility] Cameron Alves MD [facility] [place] [address] [place] [address] [phone] (Wo rk) Social History Tobacco Use Types Packs/Day Years Used Date Former Smoker Cigarettes 1 15 Quit: 12/09/19 03 Smokeless Tobacco: Never Used Comments: Started smoking [...] Telephone Encounter - Natalee March RN - 03/17/2017 1:38 PM EDT Return call made to patient. Informed patient that the application for the window tinting has been mailed. Patient verbalized understanding. Telephone Encounter - Angeles Jansen - 03/17/2017 1:23 PM EDT Caller: Lisseth Best time to reach caller: anytime Before 2:30pm - Informed caller that nurse will call back by the end of the day Best number to reach caller: [phone] Reason for call: patient called. She is returning Natalee's call from th other day. Please try again. documented in this encounter Plan of Treatment Upcoming Encounters Date Type Specialty Care Team Description 04/14/2022 Office Visit Neurology Cameron Alves MD [facility] [address] [place], [place] [address] (Wo rk) documented as of this encounter Visit Diagnoses Not on filedocumented in this encounter Care Teams Carriage Operator Relationship Specialty Start Date End Date Lolis Moss MD PCP - General General Internal Medicine 04/15/16 [address] [facility] [address] [facility] [place] [address] documented as of this encounter
--- OUTSIDE RECORDS SUMMARY | 2022-03-18 11:34 | XMS_ITS | Encounter Summary ---
:1970 Author Organization [facility] [place] [address] Care Team Providers Name Role Phone Lolis Moss MD Primary Care Provider Encounter Details Date Type Department Care Team Description 12/30/2016 Orders Only Psychiatry and Behavioral Silver De[facility] ortiz [facility] [place] [address] [place] [address] [phone] Social History Tobacco Use Types Packs/Day Years [...] Cameron Alves MD [facility] [address] [place] [address] (Wo rk) documented as of this encounter Visit Diagnoses Not on filedocumented in this encounter Care Teams Assistant Professor Of Forestry Relationship Specialty Start Date End Date Lolis Moss MD PCP - General General Internal Medicine 04/15/16 0 [facility] [address] [place] [place] [address] documented as of this encounter
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
--- OUTSIDE RECORDS SUMMARY | 2022-03-18 11:34 | XMS_ITS | Encounter Summary ---
:1970 Author Organization [facility] [place] [address] Care Team Providers Name Role Phone Lolis Cobos MD Primary Care Provider Encounter Details Date Type Department Care Team Description 01/27/2017 Telephone Family Medicine at [facility] Tamara Howard, RN [address] [place] [address] Social History Tobacco Use Types Packs/Day Years [...] this encounter Miscellaneous Notes Addendum Note - Lolis Cobos MD - 01/27/2017 9:21 AM EDT Addended by: LOLIS COBOS on: 01/27/2017 09:21 AM Modules accepted: Orders Telephone Encounter - Tamara Howard RN - 01/27/2017 8:09 AM EDT Received message from pt stating that she would not be able to keep appt today due to unableto take time off and pt can not drive at this time. Message relied to provider. documented in this encounter Plan of Treatment Upcoming Encounters Date Type Specialty Care Team Description 04/14/2022 Office Visit Neurology Cameron Alves MD [facility] [place] [address] (Wo rk) documented as of this encounter Visit Diagnoses Diagnosis Diarrhea, unspecified type documented in this encounter Care Teams Telephone Claims Representative Relationship Specialty Start Date End Date Lolis Cobos MD PCP - General General Internal Medicine 04/15/16 [address] [facility] [address] [facility] [place] [address] documented as of this encounter
--- OUTSIDE RECORDS SUMMARY | 2022-03-18 11:34 | XMS_ITS | Encounter Summary ---
:1970 Author Organization [facility] [place] [address] Care Team Providers Name Role Phone Lolis Moss MD Primary Care Provider Encounter Details Date Type Department Care Team Description 09/21/2016 Laboratory Appointment Lab 3L Derick Lower abdominal pain; [facility] [place] [address] Social History Tobacco Use Types Packs/Day Years [...] Alves MD [facility] [place] [address] (Wo rk) documented as of this encounter Procedures Procedure Name Priority Date/Time Associated Diagnosis Comme nts HEMOGRAM Routine 09/21/2016 3:52 Lower abdominal pain Resu lts for this PM EST procedure are i n the results section. DIFFERENTIAL, Routine 09/21/2016 3:52 Lower abdominal pain Res ults for this AUTOMATED PM EST procedure are i n the results section. CBC (WITH DIFF) Routine 09/21/2016 3:52 Lower abdominal pain PM EST LIPID PANEL (REFLEX Routine 09/21/2016 3:52 Screening for Resu lts for this DIRECT LDL) PM EST hypertension procedure are i n the results section. COMPREHENSIVE Routine 09/21/2016 3:52 Lower abdominal pain Res ults for this METABOLIC PANEL PM EST procedure ar e in (NON-FASTING) the results section. documented in this encounter Results (ABNORMAL) Differential, Automated (09/21/2016 3:52 PM EST) [facility] gist Method Time Signature Neutrophils % 64.3 % [facility] Neutr Abs (ANC) 5.91 1.70 - [facility] [address] [facility] x10(3)/[facility] LABORATORY Lymphocytes % 22.5 % [facility] Lymphocytes Abs 2.1 0.9 - 3.2 [facility] x10(3)/[facility] LABORATORY Monocytes % 5.5 % [facility] Monocyte Abs 0.5 0.3 - 0.9 [facility] x10(3)/[facility] LABORATORY Eosinophils % 6.6 % [facility] Eosinophils Abs 0.6 (H) 0.0 - 0.4 [facility] x10(3)/[facility] LABORATORY Basophils % 0.9 % [facility] Basophils Abs 0.1 0.0 - 0.1 [facility] x10(3)/[facility] LABORATORY Immature Gran % 0.20 % [facility] Comment: Immature granulocytes(IG's)percentage an d absolute count will include metamyelocytes, myelocytes, and promyelo cytes. Blood smears from CBCs yielding IG's will be scanned manually for concor dance. If this scan disagrees with the automated IG or if promyelocytes are not ed, a manual differential will be performed. Rosangela Gran Abs 0.02 0.00 - 0.04 x10(3)/[facility] MAR Y [facility] Specimen Anatomical Collection Method Collection Time Receive d Time (Source) Location / / Volume Laterality Blood specimen 09/21/2016 3:52 PM 017 3:59 (specimen) EST PM EST Resulting Agency Comment Spec In Lab Jose De Jesus Martinez MD HEMATOLOGY ORDERABLES Performing Organization Address City/State/[place] [address] (ABNORMAL) Hemogram (09/21/2016 3:52 PM EST) Analysis Performed At Patho logist Time Signature WBC 9.2 4.0 - 9.5 [facility] x[facility](3[facility] LABORATORY RBC 4.13 4.00 - [facility] [address] [facility] x10(6)/[facility] LABORATORY Hemoglobin 12.0 11.7 - [facility] 15.[facility] gm/dL [facility] Hematocrit 37.3 35.7 - [facility] 45.8 % [facility] MCV 90.3 82.6 - [facility] 94.4 [facility] LABORATORY MCH 29.1 27.1 - [place] 32.0 pg [facility] MCHC 32.2 31.7 - [place] 35.0 gm/dL [facility] Platelets 410 (H) 145 - 357 [facility] x10(3)/[facility] LABORATORY RDWSD 54.4 (H) 37.0 - [facility] 46.0 [facility] LABORATORY RDWCV 16.3 (H) 11.5 - [facility] 14.1 % [facility] MPV 12.4 7.6 - 12.9 [facility] nRBC % Auto 0.0 % [facility] nRBC Abs Auto 0.000 0.000 - [facility] [address] [facility] x10(3)/[facility] LABORATORY Specimen Anatomical Collection Method Collection Time Receive d Time (Source) Location / / Volume Laterality Blood specimen 09/21/2016 3:52 PM 017 3:59 (specimen) EST PM EST Resulting Agency Comment Spec In Lab Jose De Jesus Martinez MD HEMATOLOGY ORDERABLES Performing Organization Address City/State/[place] [address] Lipid Panel (09/21/2016 3:52 PM EST) [facility] gist Method Time Signature Chol, Total 166 <=239 [place] mg/dL [facility] Triglycerides 89 <=199 [place] mg/dL [facility] HDL 67 >=40 [place] mg/dL [facility] LDL Cholesterol 81 <=190 [place] mg/dL [facility] Chol/HDL Ratio 2.5 ratio [facility] Lipid See Note [place] Interpretation [facility] Comment: Lipid management should be guided by a p atient? s ASCVD risk, goals and preferences. ACC/AHA Guidelines recommend high intens ity statin if clinical ASCVD or LDL greater than or equal to 190 mg/dL. http://circ.ahajournals.org/content/barrie y/.cir.6126786012.97016.7a Adults aged 40-75 with LDL 70-189 mg/dL should have their 10 year ASCVD risk estimated with the ACC/AHA ASCVD risk es timator http://tools.acc.org/CXGBY-Uhfc-Nhazrgpj r/ Statin should be discussed if risk [...] Location / / Volume Laterality Blood specimen 09/21/2016 3:52 PM 017 3:59 (specimen) EST PM EST Resulting Agency Comment Spec In Lab Lolis Moss MD CHEMISTRY ORDERABLES Performing Organization Address City/State/ZIP Code [place] [address] (ABNORMAL) Comprehensive metabolic panel (non-fasting) (09/21/2016 3:52 PM EST) athologist Signature Glucose Lvl 97 65 - 199 [facility] mg/dL [facility] Comment: Diabetes: >=200 mg/dL plus symp toms BUN 9 8 - 18 mg/dL [facility] Creatinine 0.86 0.70 - 1.20 mg/dL [facility] Comment: Please note that the pediatric reference intervals supplied above were not validated at [facility]. Results from pediatri c patients should be interpreted in conjunction to the patient's age, height and muscle mass. Sodium 145 135 - 145 mmol/L [facility] Potassium 3.9 3.5 - 5.0 mmol/L [facility] Comment: Please note: ??Patients with WBC >100,00 0 may have falsely elevated Potassium levels. ??For accurate Potassium quantif ication in these patients send serum separator tube (gold top) for subsequent determinations. ??Contact the Clinical Chemistry Laboratory if there are any qu estions. Chloride 111 (H) 98 - 107 mmol/L [facility] CO2 22 22 - 31 mmol/L [facility] Anion Gap 12 5 - 15 mmol/L [facility] Calcium 9.6 8.5 - 10.5 mg/dL [facility] Total Protein 7.5 6.1 - 8.0 gm/dL [facility] Albumin 4.5 3.2 - 5.2 gm/dL [facility] AST 16 0 - 30 unit/L [facility] ALT 13 0 - 30 unit/L [facility] Alk Phos 75 40 - 104 unit/L [facility] Total Bilirubin 0.3 0.2 - 1.3 mg/dL [facility] Bili, Direct 0.1 0.0 - 0.3 mg/dL [facility] Estimated GFR >60 >=60 [facility] Comment: This estimated GFR (eGFR) value was calc ulated using the MDRD equation which has been validated on patients between t he ages of 18 and 70. The MDRD should not be used to assess kidney function in patients < 18 years of age or in patients with extremes of body mass, or in patients with acute kidney failure. This value should be multiplied by 1.2 f or patients. For further information please copy and past e the following links into your internet browser. http://Idea2/DHnkdep http://Idea2/DHMCnkf Specimen Anatomical Collection Method Collection Time Receive d Time (Source) Location / / Volume Laterality Blood specimen 09/21/2016 3:52 PM 017 3:59 (specimen) EST PM EST Resulting Agency Comment Spec In Lab Jose De Jesus Martinez MD CHEMISTRY ORDERABLES Performing Organization Address City/State/[place] [address] documented in this encounter Visit Diagnoses Diagnosis Lower abdominal pain Abdominal pain, other specified site Screening for hypertension documented in this encounter Care Teams Student Services Director Relationship Specialty Start Date End Date Lolis Moss MD PCP - General General Internal Medicine 04/15/[address] [facility] [address] [facility] [place] [address] documented as of this encounter
--- OUTSIDE RECORDS SUMMARY | 2022-03-18 11:34 | XMS_ITS | Encounter Summary ---
:1970 Author Organization [place] [address] Care Team Providers Name Role Phone Lolis Moss MD Primary Care Provider Reason for Visit Reason Onset Date Comments Prior Authorization 12/08/2016 duloxetine Encounter Details Date Type Department Care Team Description 12/08/2016 Telephone Internal Medicine at [facility] Authorization [facility] (duloxetine) [address] [place] [address] Social History Tobacco Use Types Packs/Day [...] encounter Miscellaneous Notes Telephone Encounter - Natalee Eli CCMA - 12/09/2016 11:37 AM EDT Medication Prior Authorization for Primary [place] [address] Approve: X Start Date: 12/08/16 End Date: 12/08/17 Case/Reference #: [id number] Telephone Encounter - Natalee Eli CCMA - 12/08/2016 4:43 PM EDT Medication Prior Authorization for Primary [place] [address] Patient: Lisseth Boone Patient : 1970 Subscriber Insurance: [employer] Insurance Phone #: [phone] Sent via: [employer] [place]: [id number] Physician: Lolis Moss MD Return Medication Requested: Duloxetine Strength: 60 mg capsule Frequency: Take one capsule by mouth twice daily Disp.: 180 Refills: 3 Currently taking: yes If yes, how lon04/16/16 Diagnosis for this medication: Anxiety ICD-10 code: F41.9 Prior medications trialed in this patient: Medication: duloxetine 60 mg once daily Approx Dates: 10/20/08-04/16/16 Outcome/Adverse Reactions: Inadequate response Medication: amitriptyline Approx Dates: 10/20/08-10/23/13 Outcome/Adverse Reactions: Inadequate response Medication: clonazepam Approx Dates: 10/20/08-present Outcome/Adverse Reactions: Inadequate response by itself. Medication: lyrica Approx Dates: 10/23/13-12/09/15 Outcome/Adverse Reactions: Inadequate response Medication: sertraline Approx Dates: 10/2013 Outcome/Adverse Reactions: Inadequate response Medication: venlafaxine Approx Dates: 10/2013 Outcome/Adverse Reactions: Inadequate response Medication: trazodone Approx Dates: 10/24/13-07/07/16 Outcome/Adverse Reactions: Inadequate response Medication: hydroxyzine Approx Dates: 11/16/13-12/09/15 Outcome/Adverse Reactions: Inadequate response Telephone Encounter - Lolis Moss MD - 12/08/2016 3:53 PM EDT Her current diagnosis is disassocciative episodes with anxiety And has had depression in the past She has been on it at least since 03/31 Not sure where started The psychiatry team has been following her She has been complicated and has been fairly stable recently on current meds Telephone Encounter - Natalee Eli CCMA - 12/08/2016 3:26 PM EDT Subscriber Insurance: [employer] Insurance Phone #: [phone] Medication Requested: Duloxetine Strength: 60 mg capsule documented in this encounter Plan of Treatment Upcoming Encounters Date Type Specialty Care Team Description 04/14/2022 Office Visit Neurology Cameron Alves MD [facility] [place] [address] (Wo rk) documented as of this encounter Visit Diagnoses Not on filedocumented in this encounter Care Teams Glue Spreading Machine Operator Relationship Specialty Start Date End Date Lolis Moss MD PCP - General General Internal Medicine 04/15/16 [address] [facility] [address] [place] [address] documented as of this encounter
--- OUTSIDE RECORDS SUMMARY | 2022-03-18 11:34 | XMS_ITS | Encounter Summary ---
:1970 Author Organization [place] [address] Care Team Providers Name Role Phone Lolis Moss MD Primary Care Provider Encounter Details Date Type Department Care Team Description 05/12/2017 [place] [facility] [place], Migraine with aura and witho ut status migrainosus, not intractable; [facility] Migraine without aura and without status migrainosus, [place] [address] [place] [address] [phone] Social History Tobacco Use Types Packs/Day Years [...] Sign Reading Time Taken Comments Blood Pressure 128/76 05/12/2017 10:46 AM EDT Pulse 96 05/12/2017 10:46 AM EDT Temperature - - Respiratory Rate - - Oxygen Saturation - - Inhaled Oxygen Concentration - - Weight 72.6 kg (160 lb) 05/12/2017 10:46 AM EDT Height 160 cm (5' 3) 05/12/2017 10:46 AM EDT Body Mass Index 28.34 05/12/2017 10:46 AM EDT documented in this encounter Progress Notes Cameron Alves MD - 05/12/2017 10:30 AM EDT Neurology Headache Clinic Follow-up Visit 05-12-17 Last Visit: 09/21/16 Pain today: 0 Interval Headache Hx: Last seen in Sep, but cancelled 12/21/16. This patient has recurrent psychosis with bipolar disorder, a chronic pain syndrome, and has had at least 38 medication trials. She was on mag B2, TPM, and candesartan, and I added CoQ10 and prn TRX. She says the HAs are 1-2 times per week. She uses TRX 1-2 times per week, and it makes her pain free, and the KAISER does not recur. When we started in Mar, she was having: Aura 5 minutes, no longer gets that although she gets a few sparkles 2 day attacks with an extra day of postdrome Now with TRX she is pain free by 45 minutes, no recurrence, so she is getting only two episodes of 45 minutes of disability per week, usually, but sometimes 3 attacks per week, so #9 TRX does not quitehold her. She is 5 preventive treatments as noted: mag, B2, CoQ10, TPM, and candesartan. She is using diphenhydramine for her occasional non-severe nausea. Prior Treatments: TCAs 1. Amitriptyline Neuroleptics 2. Olanzepine 3. Promethazine 4. Chlorpromazine 5. Prochlorperazine Muscle relaxants 6. Baclofen 7. Cyclobenzaprine BZDs 8. Clonazepam 7. Zolpidem 8. Midazolam Beta blockers 9. Metoprolol Antihistamines 10. Diphenhydramine 11. Hydroxyzine AEDs 12. LTG 13. TPM 14. GBP 15. PGB 16. VPA NSAIDs 17. Ketorolac 18. Indomethacin 19. Ibuprofen 20. ASA Excedrin 21. Naproxen Other antideppresants 22. Trazodone 23. Bupropion Triptans 24. Riza 5 25. Ivon 100 TRX Misc 26. Scopolamine 27. APAP Supplements 28. B2 29. Mag 30. CoQ10 Narcotics 30. Oxycodone 31. Fentanyl 32. Hydromorphone 33. Hydrocodone SSRIs 34. Sertraline SNRIs 35. Duloxetine 36. Venlafaxine WALESKA 37. Lisinopril ARBs 38. Candesartan ? New Health Issues: No New Family History: no Past Medical History: [...] BX [facility] ??? PRO UPPER GI ENDOSCOPY, BIOPSY N/A 02/11/2016 UPPER GASTROINTESTINAL ENDOSCOPY,WITH BIOPSY SINGLE OR MULTIPLE performed by [facility] at [facility] ??? TUBAL LIGATION Studies to Review: no Outpatient Prescriptions Marked as Taking for the 05/12/17 encounter (Office Visit) with Cameron Alves MD Medication Sig Dispense Refill ??? pantoprazole (PROTONIX) 40 mg Tablet, Delayed Release (E.C.) Take 40 mg by mouth daily. ??? clonazePAM (KLONOPIN) 0.5 mg Tablet Take 1.75 tablets by mouth 3 times daily. 158 tablet 0 ??? candesartan (ATACAND) 16 mg Tablet Take 1 tablet by mouth every evening. 30 tablet 11 ??? QUEtiapine (SEROQUEL) 25 mg Tablet Take 0.5 tablets by mouth 2 times daily as needed (for anxiety). 30 tablet 1 ??? QUEtiapine (SEROQUEL) 50 mg Tablet Take 1 to 2 tablets at night for sleep. 60 tablet 1 ??? baclofen (LIORESAL) 20 mg Tablet Take 1 tablet by mouth 3 times daily as needed. 270 tablet 3 ??? MAGNESIUM ORAL Take by mouth. ??? UBIDECARENONE (COENZYME Q10 ORAL) Take by mouth. ??? topiramate (TOPAMAX) 100 mg Tablet Take 1 tablet by mouth nightly. 30 tablet 3 ??? DULoxetine (CYMBALTA) 60 mg Capsule, Delayed Release(E.C.) TAKE ONE CAPSULE BY MOUTH TWICE [id number] capsule 3 ??? SUMAtriptan-Naproxen 85-500 mg Tablet One PO for migraine, max 2/day, max 2 days per week 9 tablet 11 ??? fexofenadine-pseudoephedrine (COREY-D 24) 180-240 mg Tablet Sustained Release 24 hr Take 1 tablet by mouth daily. (Patient taking differently: Take 1 tablet by mouth daily as needed.) 1 tablet 0 ??? ferrous sulfate 325 mg (65 mg iron) Tablet, Delayed Release (E.C.) Take 1 tablet by mouth daily.7 tablet 0 ??? sucralfate (CARAFATE) 1 gram Tablet Take 1 tablet by mouth 4 times daily. (Patient taking differently: Take 1 g by mouth 4 times daily as needed.) 120 tablet 5 ??? multivitamin (THERAGRAN) Tablet Take 1 tablet by mouth daily. ??? riboflavin, vitamin B2, 100 mg Tablet Take 1 tablet by mouth daily. 30 tablet 11 ??? folic acid (FOLVITE) 1 mg tablet Take 1 tablet by mouth daily. 30 tablet 12 Allergies Allergen Reactions ??? Pollen Extracts REVIEW OF SYSTEMS: No change from Sep 2016 Physical Examination: VS BP 128/76 Pulse 96 Ht 160 cm (5' 3) Wt 72.6 kg (160 lb) BMI 28.34 kg/m2 General: Normal skin, musculoskeletal Neurological: Normal mentation, coordination, gait Impression: 1. Migraine with aura and without status migrainosus, not intractable 2. Migraine without aura and without status migrainosus, not intractable I renewed her TPM and TRX today. Follow-up: 6 mos I spent 40 minutes in this visit, with at least 30 devoted to patient counseling. Cameron Alves MD documented in this encounter Plan of Treatment Upcoming Encounters Date Type Specialty Care Team Description 04/14/2022 Office Visit Neurology Cameron Alves MD [facility] [address] [place] [address] (Wo rk) documented as of [...] migrainosus documented in this encounter Care Teams Communications Agent Relationship Specialty Start Date End Date Lolis Moss MD PCP - General General Internal Medicine 04/15/[address] [facility] [address] KAR[facility] [place] [address] documented as of this encounter
--- OUTSIDE RECORDS SUMMARY | 2022-03-18 11:34 | XMS_ITS | Encounter Summary ---
:1970 Author Organization [facility] [place] [address] Care Team Providers Name Role Phone Lolis Moss MD Primary Care Provider Reason for Visit Reason Onset Date Comments Medication Refill 09/28/2016 Encounter Details Date Type Department Care Team Description 09/28/2016 Refill Psychiatry Debra Munguia MD [facility] [place] [address] [place] [address] [place] [address] [phone] (Wo rk) Social History Tobacco Use Types [...] Telephone Encounter - Debra Munguia MD - 09/28/2016 8:55 AM EST Reached pt at . Reports a spell last week, which she says never went into a full blown spell, so pt opted not to present to ED. During this time, used coping mechanisms and helped by . Feels that it was triggered by stress of spilling her pills. Was able to get through it by employing philosophy of be rational first. Told pt that refills have been sent (Seroquel, clonazepam). Reports feeling safe. Denies SI/HI. Reports that crisis numbers are on her refrigerator and she agrees to call or present to ED in time of emergency. documented in this encounter Plan of Treatment Upcoming Encounters Date Type Specialty Care Team Description 04/14/2022 Office Visit Neurology Cameron Alves MD [facility] [address] [place], [place] [address] (Wo rk) documented as of this encounter Visit Diagnoses Not on filedocumented in this encounter Care Teams Oakes Machine Operator Relationship Specialty Start Date End Date Lolis Moss MD PCP - General General Internal Medicine 04/15/16 [address] [facility] [address] K[facility] [place] [address] documented as of this encounter
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
--- OUTSIDE RECORDS SUMMARY | 2022-03-18 11:34 | XMS_ITS | Encounter Summary ---
:1970 Author Organization [facility] Address [place] [address] Care Team Providers Name Role Phone Lolis Moss MD Primary Care Provider Reason for Visit Reason Onset Date Comments Medication Refill 09/10/2016 Encounter Details Date Type Department Care Team Description 09/14/2016 Refill Neurology at [facility] Cameron Alves, Migraine with aura and [facility] MD without status Drive [facility] migrainosus, [place] [address] mendes [phone] [place], [place] [address] (Wo rk) Social History Tobacco Use Types Packs/Day Years Used Date Current Every Day Smoker Cigarettes 0.5 15 Candelario t: 12/08/2002 Smokeless Tobacco: Never Used Alcohol Use Standard [...] this encounter Miscellaneous Notes Telephone Encounter - Tyler Romero LPN - 09/14/2016 3:38 PM EST From: Lisseth Boone To: Lolis Stevenson MD Sent: 09/10/2016 11:45 AM EST Subject: Medication Renewal Request Original authorizing provider: LOLIS STEVENSON MD Lisseth Boone would like a refill of the following medications: SUMAtriptan (IMITREX STATDOSE PEN) 6 mg/0.5 mL Pen Injector [LOLIS STEVENSON MD] Preferred pharmacy: [facility] [place] [place] - [address] Comment: Medication renewals requested in this message routed to other providers: SUMAtriptan Succinate 6 mg/0.5 mL Cartridge [Cameron Alves MD] documented in this encounter Plan of Treatment Upcoming Encounters Date Type Specialty Care Team Description 04/14/2022 Office Visit Neurology Cameron Alves MD [facility] er [place], [place] [address] (Wo rk) documented as of this encounter Visit Diagnoses Diagnosis Migraine with aura and without status mi grainosus, not intractable Migraine with aura, without mention of i ntractable migraine without mention of status migrainosus documented in this encounter Care Teams Assembler Surgical Garment Relationship Specialty Start Date End Date Lolis Moss MD PCP - General General Internal Medicine 04/15/[address] [facility] [place] [address] documented as of this encounter
--- OUTSIDE RECORDS SUMMARY | 2022-03-18 11:34 | XMS_ITS | Encounter Summary ---
:1970 Author Organization [facility] [place] [address] Care Team Providers Name Role Phone Lolis Moss MD Primary Care Provider Reason for Visit Reason Comments Follow-up 3 month Encounter Details Date Type Department Care Team Description 09/21/2016 Office Visit Internal Medicine at L[facility]; [facility] Kolton Gimenez MD Depression, unspecified depression type; [address] [facility] [place] [address] [phone] [facility] [place], [place] [address] Social History Tobacco Use Types [...] Sign Reading Time Taken Comments Blood Pressure 117/74 09/21/2016 1:39 PM EST Pulse 90 09/21/2016 1:39 PM EST Temperature 36.4 ??C (97.6 ??F) 09/21/2016 1:39 PM EST Respiratory Rate 14 09/21/2016 1:39 PM EST Oxygen Saturation 100% 09/21/2016 1:39 PM EST Inhaled Oxygen Concentration - - Weight 69.6 kg (153 lb 6.4 oz) 09/21/2016 1:39 PM EST Height 158.4 cm (5' 2.36) 09/21/2016 1:39 PM EST Body Mass Index 27.73 09/21/2016 1:39 PM EST documented in this encounter Progress Notes Lolis Moss MD - 09/21/2016 1:30 PM EST Follow up spells is with her Some better Woke up this am with a panic attack He says that she worries too much about things Working with the psychiatry team Has not yet connected with a counselor Started smoking to bacco again--to help with the anxiety can talk her down 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 been 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 Not wanting to drive on the icy roads Did wake up this am with panic attack [place] tthat she could not breath She was able to talk herself down Getting migranes about once a week She gets scared if she started getting a migrane The Imitrex or excedrine helps, but leaves her with a hang over and she has go go lay down Stomach--some constipated She wonders if the stress is causing it Stress is from the anxiety, she worries Does not sound like additional stressors They both shared with me about some of her spells an how events transpire at home PE BP 117/74 (BP Location (NBP): Right arm, Patient Position: Sitting, BP Cuff Sizes: Adult (25-34 cm))Pulse 90 Temp 36.4 ??C (97.6 ??F) (Temporal) Resp 14 Ht 158.4 cm (5' 2.36) Wt 69.6 kg (153 lb 6.4 oz) LMP 09/07/2016 (Within Weeks) SpO2 100% BMI 27.73 kg/m2 Quiet At times almost tearful Lots of negativity about herself We talked about practicing the techniques she has learned to help manage her anxiety--that it is important not just to know, but to practice Her has helped talk her down We talked about how perhaps she could talk herself down. She shared an occasion where she was able to do this. Encouraged her to set up some counseling and get started on this project (which will be difficult for her to do Related to them that we have not thought she was having seizures, but as well the neurology plan forattempt at EEG with spells to document this I do not see she has had lipids done so will do this Spent 20 min of this 30 min visit with pt and reviewing above documented in this encounter Plan of Treatment Upcoming Encounters Date Type Specialty Care Team Description 04/14/2022 Office Visit Neurology Cameron Alves MD [facility] er [address] [place], [place] [address] (Wo rk) documented as of this encounter Results Lipid Panel (09/21/2016 3:52 PM EST) [facility] Method Time Signature Chol, Total 166 <=239 DERICK mg/dL [facility] Triglycerides 89 <=199 DERICK mg/dL [facility] HDL 67 >=40 DERICK mg/dL [facility] LDL Cholesterol 81 <=190 DERICK mg/dL [facility] Chol/HDL Ratio 2.5 ratio [facility] Lipid See Note DERICK Interpretation [facility] Comment: Lipid management should be guided by a p atient? s ASCVD risk, goals and preferences. ACC/AHA Guidelines recommend high intens ity statin if clinical ASCVD or LDL greater than or equal to 190 mg/dL. http://circ.ahajournals.org/content/barrie y/.cir.7847452770.28051.7a Adults aged 40-75 with LDL 70-189 mg/dL should have their 10 year ASCVD risk estimated with the ACC/AHA ASCVD risk es timator http://tools.acc.org/OGZNW-Afko-Zmlzilse r/ Statin should be discussed if risk [...] Organization Address City/State/[place] [address] documented in this encounter Visit Diagnoses Diagnosis Anxiety Anxiety state, unspecified Depression, unspecified depression type Screening for hypertension documented in this encounter Care Teams Linux Systems Administrator Relationship Specialty Start Date End Date Lolis Moss MD PCP - General General Internal Medicine 04/15/[address] [facility] [address] [facility] [place] [address] documented as of this encounter
--- OUTSIDE RECORDS SUMMARY | 2022-03-18 11:34 | XMS_ITS | Encounter Summary ---
:1970 Author Organization [facility] [place] [address] Care Team Providers Name Role Phone Lolis Moss MD Primary Care Provider Encounter Details Date Type Department Care Team Description 03/02/2017 Telephone Psychiatry and Behavioral Debra Gomez MD [facility] [place] [id number] [place] [phone] Social History Tobacco Use Types Packs/Day Years [...] Telephone Encounter - Debra Munguia MD - 03/02/2017 4:38 PM EDT Attempted to reach pt at [phone]. No answer. Left message. Called [phone]. Reached , Emmanuel, who told me her cell phone number was [phone]. Also tried this number. Again no answer. No voicemail available. Awaiting callback from first number tried. Aim is to discuss email pt sent today. Telephone Encounter - Debra Munguia MD - 03/02/2017 4:38 PM EDT ----- Message from Chelsie Leach Elier sent at 03/02/2017 12:31 PM EDT ----- Patient left a message for you to call her at [phone] documented in this encounter Plan of Treatment Upcoming Encounters Date Type Specialty Care Team Description 04/14/2022 Office Visit Neurology Cameron Alves MD [facility] [place], [place] [address] (Wo rk) documented as of this encounter Visit Diagnoses Not on filedocumented in this encounter Care Teams Coil Former Relationship Specialty Start Date End Date Lolis Moss MD PCP - General General Internal Medicine 04/15/16 [address] [facility] [address] [facility] [place] [address] documented as of this encounter
--- OUTSIDE RECORDS SUMMARY | 2022-03-18 11:34 | XMS_ITS | Encounter Summary ---
:1970 Author Organization [facility] [place] [address] Care Team Providers Name Role Phone Lolis Moss MD Primary Care Provider Reason for Visit Auth/Cert Specialty Diagnoses / Procedures Referred By Contact Refer red To Contact Diagnoses Altered mental status Procedures altereed mental status Referral ID Status Reason Start Date Expiration Date Visits Requ ested Visits Authorized [id number] 1 1 Encounter Details Date Type Department Care Team Description [facility] [place] [address] Altered mental status, unspecified alter ed mental status type; 08/26/2016 [facility] [place] [address] Mydriasis; [facility] [place] [address] Anxiety; Drive Bipolar I disorder, most rec ent episode (or current) unspecified; [place], [place] History of trau matic brain injury; [id number] Personal history of tobacco use, presenting hazards to health; [phone] Encounter for l amara-term (current) use of other medications; Other nonmedici nal substance allergy status Social History Tobacco Use Types Packs/Day Years [...] Sign Reading Time Taken Comments Blood Pressure 126/90 08/26/2016 1:00 PM EST Pulse 108 08/26/2016 1:00 PM EST Temperature 36.8 ??C (98.2 ??F) 08/26/2016 1:00 PM EST Respiratory Rate 16 08/26/2016 1:00 PM EST Oxygen Saturation 98% 08/26/2016 1:00 PM EST Inhaled Oxygen Concentration - - Weight 71.8 kg (158 lb 4.6 oz) 08/25/2016 9:18 PM EST Height 160 cm (5' 3) 08/25/2016 9:18 PM EST Body Mass Index 28.04 08/25/2016 9:18 PM EST documented in this encounter Discharge Summaries Prosper Baugh DO - 08/26/2016 2:21 PM EST Discharge Summary Patient Name: Lisseth Boone Patient Age: 46 y.o. Language: French Race: White Ethnicity: Not nor Admit date: 08/25/2016 Discharge date and time: August 26, 2016 2:30 PM Attending Physician: Prosper Baugh DO Discharge Physician: Prosper Baugh DO Follow-up Recommendations for Providers: - Follow-up with psychiatry as outpatient - Follow-up with neurology as outpatient - If mental status changes begin, please stop your quetiapine Inpatient Provider Contact Information: For questions regarding this document or issues relating to this hospitalization on the Medical Service, please contact your inpatient physician through the [facility] Train Operations Manager . Issues after hours and on weekends will be handled by the Hospitalist staff on-call. Discharge Diagnoses (Hospital Problems) and Secondary Diagnoses (Chronic Problems): Active Hospital Problems Diagnosis ??? Altered mental status Resolved Hospital Problems Diagnosis Date Resolved No resolved problems to display. Active Non-Hospital Problems Diagnosis ??? Depression ??? Viral warts ??? Fibromyalgia ??? Psoriatic arthritis ??? Anxiety ??? Primary insomnia ??? Weight loss ??? Migraine ??? Amnesia ??? MCI (mild cognitive impairment) ??? Closed TBI (traumatic brain injury) ??? Closed C1 fracture ??? Fibrocystic breast changes ??? Breast cancer screening, high risk patient Operations/Major Procedures: NONE History of Presentation: 46 y/o female with pmhx TBI with residual MCI, depression, anxiety, migraines presenting from home with altered mental status. Patient was unable to provide history so history was collected from patient's . The patient was in her usual state of health until 4 days prior to admission when she acutely became confused. She was alert however would walk around the house aimlessly and wouldn't answer questions appropriately. Her symptoms improved over the weekend however acutely worsened again 2 days prior to admission. Her reports that the patient stopped speaking and would just stare blankly. He does not report any fevers or recent illnesses. He also denies any recent medication changes. She did not have any seizure like activity and he denies her doing any recreational drugs. He does note that she had severe migraines at the end of last week prompting her to take more of her prn sumatriptan as well as higher doses of her seroquel. The patient's states that she has had several episodes like this in the past and he correlates them to times of stress (which she is currently experiencing). Hospital Course: 1. Altered Mental Status: Resolved with hydration and stopping of her quetiapine. Discussed with psychiatry who recommended continuing on discharge and a neurology work-up. Neurology follow-up already scheduled for later this month and unable to move forward. She does not want to remain in the hospital at this time. Restart her home medications. Would recommend a trial of stopping quetiapine if altered mental status does recur. Follow-up with psychiatry and neurology. Telemetry negative for arrhythmias. 2. Anxiety/Depression: Continue on clonazepam TID and duloxetine. Quetiapine as previously recommended. 3. Migraines: Continue sumatriptan, topamax, and candasartan. No further benadryl. 4. GERD: Continue PPI and carafate. Vital Signs at Discharge: BP: 126/90, Heart Rate: 108, Temp: 36.8 ??C (98.2 ??F), Resp: 16, BMI (Calculated): 28.1 Height: 160 cm (5' 3) (08/25/162117) Weight - Scale: 71.8 kg (158 lb 4.6 oz) (08/25/162117) GEN: awake, alert, NAD HEENT: PERRLA, EOMI, MMM, trachea midline, no JVD CHEST: CTA B/L, no W/R/R, no accessory muscle use HEART: RRR S1S2, no M/R/G, no LE edema ABD/PEL: soft, NT, ND, +BS EXT: no clubbing or cyanosis, no erythema PSYCH/NEURO: appropriate affect and cognition, OX3 Functional and Cognitive Status: Good Important Studies and Lab Data: Labs: Last 3 wbc, hgb, hct plt Recent Labs 08/25/16 1315 07/15/16 06/20/16 WBC 8.4 7.4* 9.3* HGB 10.8* 1039.0* 12.8* HCT 33.0* 33.9* 39.9* PLATELET 418* 446* 495* Last 3 Lytes Recent Labs 08/26/16 0648 08/25/16 1315 07/15/16 NA 144 146* 141* K 3.4* 3.4* 3.7* CL 112* 111* 113* CO2 19* 21* 21* BUN 12 15 17* CREATININE 0.67* 0.80 0.93* Lab Results Component Value Date TSH 1.08 08/25/2016 08/25/2016 PREM Phencyclidine Scr None Detected PREM Oxycodone Scr None Detected PREM Propoxyphene Scr None Detected PREM Buprenorphine Scr None Detected PREM Amphetamines Scr None Detected PREM Methamphetamines Scr None Detected PREM Barbiturates Scr None Detected PREM Benzodiazepines Scr None Detected PREM Cocaine Metabolites Scr None Detected PREM Methadone Scr None Detected PREM Opiates Scr None Detected PREM Marijuana Metabolites Scr None Detected PREM Tricyclics Scr Presumptive Pos (A) PREM Adulterants Screen None Detected Ethanol Level <100 Color UA Yellow Appearance UA Clear Spec Belen UA 1.012 pH UA 6.0 Protein UA 30 (A) Glucose UA Negative Ketones UA Negative Bilirubin UA Negative Urobilinogen UA Normal Blood UA Large (A) Leukocytes UA Negative Nitrite UA Negative WBC UA 4 RBC UA 4 Bacteria UA Rare (A) Squam Epith UA 4 Culture Reflexed No Pending Studies and Lab Data: NONE Discharge Conditions/Prognosis: Good Discharge to: Home Updated Allergies/ADRs: Allergies Allergen Reactions ??? Pollen Extracts Immunizations Given this Hospitalization: Immunization History Administered Date(s) Administered ??? Influenza PF, Split 05/20/2016 ??? Influenza Vaccine w/Preservative, Split 05/15/2012 ??? Pneumococcal Polyvalent 23 06/16/2010 ??? Tdap Vaccine 05/20/2016 Discharge Medications: Your Medications Continued medications with new dosing Dose Details fexofenadine-pseudoephedrine 180-240 mg Tablet sr Commonly known as: LORRIE-D 24 Take 1 tablet by mouth daily. What changed: - when to take this - reasons to take this 1 tablet Quantity: 1 tablet Refills: 0 nicotine 14 mg/24 hr Pt24 Commonly known as: NICODERM CQ Place 1 patch onto the skin daily. See Package instructions What changed: Another medication with the same name was removed. Continue taking this medication, and follow the directions you see here. 1 patch Quantity: 28 patch Refills: 0 Continued medications, unchanged Dose Details baclofen 20 mg Tab Commonly known as: LIORESAL Take 1 tablet by mouth 3 times daily. 20 mg Quantity: 90 tablet Refills: 3 candesartan 16 mg Tab Commonly known as: ATACAND Take 1 tablet by mouth every evening. 16 mg Quantity: 30 tablet Refills: 11 clonazePAM 1 mg Tab Commonly known as: KlonoPIN Take 1 tablet by mouth 3 times daily. 1 mg Quantity: 90 tablet Refills: 0 DULoxetine 60 mg Cpdr Commonly known as: CYMBALTA Take 1 capsule by mouth 2 times daily. 60 mg Quantity: 180 tablet Refills: 0 esomeprazole 40 mg Cpdr Commonly known as: NexIUM Take 1 capsule by mouth 2 times daily. 40 mg Quantity: 60 capsule Refills: 12 ferrous sulfate 325 mg (65 mg iron) Tbec Take 1 tablet by mouth daily. 325 mg Quantity: 7 tablet Refills: 0 folic acid 1 mg Tab Commonly known as: FOLVITE Take 1 tablet by mouth daily. 1 mg Quantity: 30 tablet Refills: 12 multivitamin Tab Commonly known as: THERAGRAN Take 1 tablet by mouth daily. 1 tablet Refills: 0 * QUEtiapine 25 mg Tab Commonly known as: SEROquel Take 0.5 tablets by mouth 2 times daily as needed (for anxiety). 12.5 mg Quantity: 30 tablet Refills: 1 * QUEtiapine 50 mg Tab Commonly known as: SEROquel Take 1 to 2 tablets at night for sleep. Quantity: 60 tablet Refills: 1 riboflavin (vitamin B2) 100 mg Tab Take 1 tablet by mouth daily. 100 mg Quantity: 30 tablet Refills: 11 sucralfate 1 gram Tab Commonly known as: CARAFATE Take 1 tablet by mouth 4 times daily. 1 g Quantity: 120 tablet Refills: 5 * SUMAtriptan 100 mg Tab Commonly known as: IMITREX One PO for migraine , max 2/day, max 2 days per week Quantity: 9 tablet Refills: 11 * SUMAtriptan 6 mg/0.5 mL Pnij Commonly known as: IMITREX STATDOSE PEN 6 mg SC for migraine , max 2 shots per day or one shot + one eden pill Quantity: 1 each Refills: 11 * SUMAtriptan Succinate 6 mg/0.5 mL Crtg 6 mg SC for migraine, max 2 shots per day Quantity: 4 kit Refills: 1 topiramate 100 mg Tab Commonly known as: TOPAMAX Take 1 tablet by mouth nightly. 100 mg Quantity: 30 tablet Refills: 11 * Notice: This list has 5 medication(s) that are the same as other medications prescribed for you. Read the directions carefully, and ask your doctor or other care provider to review them with you. STOPPED Medications diphenhydrAMINE 25 mg Cap Commonly known as: BENADRYL Smoking Status at Discharge: History Smoking Status ??? Former Smoker ??? Packs/day: 0.00 ??? Years: 15.00 ??? Types: Cigarettes ??? Quit date: 12/08/2002 Smokeless Tobacco ??? Never Used Instructions Given to Patient at Discharge: Patient Instructions Discharge Recommendations Follow-up Recommendations: - Follow-up with psychiatry as outpatient - Follow-up with neurology as outpatient - If mental status changes begin, please stop your quetiapine Why you were hospitalized: Altered mental status Admitting Diagnosis: Altered mental status [R41.82] Primary Diagnosis: <principal problem not specified> Hospital Problems Addressed: Active Hospital Problems Diagnosis ??? Altered mental status Resolved Hospital Problems Diagnosis Date Resolved No resolved problems to display. Discharged to: home Changes in your medications can be found on you After Visit Summary. Please review these changes before discharge. We are happy to answer any questions that you may have regarding these changes. If youhave questions after discharge, please call [facility] Train Operations Manager @ and ask for your discharge provider or the hospitalist on-call. Your Discharging Hospitalist: Prosper Baugh DO Discharging Hospitalist Team: [id number] Your Admitting Hospitalist: Prosper Baugh DO Follow-up: Future Appointments Date Time Provider Department Center 09/09/2016 1:00 PM Maxwell Mcfarland MD [facility] 09/15/2016 10:30 AM Lolis Moss MD [facility] Your Primary Care Provider: Lolis Moss MD [facility]* [phone] Patient Care Recommendations: Bowel function: N/A (most recent BM, potential for constipation and plan to prevent it) Bladder function: N/A (Pringle, ISC, bladder scan, straight cath, etc.) Diabetes management: N/A (?started on insulin in the hospital, issues) Mental status assessment: Fair (Dementia? Delirium? stable, worsening, improving?) Diet/Nutrition: Regular (supplemental nutrition types, tube feed type and rates, limitations in dietsuch as nectars, soft-mechanical, ability to feed ,speech pathology recs) Driving: No driving until symptoms improve Activity: No restrictions Multidisciplinary Recommendations Care Management: N/A Physical Therapy: N/A Occupational Therapy: N/A Speech Therapy: N/A Wound Care: N/A Supplemental O2: N/A For questions regarding this document or issues relating to this hospitalization on the Medical Service, please contact your inpatient physician through the [facility] Train Operations Manager @ . Issues after hours and on weekends will be handled by the Hospitalist staff on-call. General Instructions None Future Appointments and Orders Future Appointments Provider Department Dept Phone 09/09/2016 1:00 PM Maxwell Mcfarland MD Neurology [phone] 09/15/2016 10:30 AM Lolis Moss MD [facility] [phone] Discharge References/Attachments None Prosper Baugh DO Pager: [phone] 08/26/2016 2:30 PM documented in this encounter Discharge Instructions Patient InstructionsMaProsper bella DO - 08/26/2016 2:23 PM EST Discharge Recommendations Follow-up Recommendations: - Follow-up with psychiatry as outpatient - Follow-up with neurology as outpatient - If mental status changes begin, please stop your quetiapine Why you were hospitalized: Altered mental status Admitting Diagnosis: Altered mental status [R41.82] Primary Diagnosis: <principal problem not specified> Hospital Problems Addressed: Active Hospital Problems Diagnosis ??? Altered mental status Resolved Hospital Problems Diagnosis Date Resolved No resolved problems to display. Discharged to: home Changes in your medications can be found on you After Visit Summary. Please review these changes before discharge. We are happy to answer any questions that you may have regarding these changes. If youhave questions after discharge, please call [facility] Train Operations Manager @ and ask for your discharge provider or the hospitalist on-call. Your Discharging Hospitalist: Prosper Baugh DO Discharging Hospitalist Team: [id number] Your Admitting Hospitalist: Prosper Baugh DO Follow-up: Future Appointments Date Time Provider Department Center 09/09/2016 1:00 PM Maxwell Mcfarland MD [facility] [place] [facility] 09/15/2016 10:30 AM Lolis Moss MD [facility] Your Primary Care Provider: Lolis Moss MD [facility] [place]* [phone] Patient Care Recommendations: Bowel function: N/A (most recent BM, potential for constipation and plan to prevent it) Bladder function: N/A (Pringle, ISC, bladder scan, straight cath, etc.) Diabetes management: N/A (?started on insulin in the hospital, issues) Mental status assessment: Fair (Dementia? Delirium? stable, worsening, improving?) Diet/Nutrition: Regular (supplemental nutrition types, tube feed type and rates, limitations in dietsuch as nectars, soft-mechanical, ability to feed ,speech pathology recs) Driving: No driving until symptoms improve Activity: No restrictions Multidisciplinary Recommendations Care Management: N/A Physical Therapy: N/A Occupational Therapy: N/A Speech Therapy: N/A Wound Care: N/A Supplemental O2: N/A For questions regarding this document or issues relating to this hospitalization on the Medical Service, please contact your inpatient physician through the [facility] Train Operations Manager @ . Issues after hours and on weekends will be handled by the Hospitalist staff on-call. documented in this encounter Medications at Time of Discharge Medication Sig Dispensed Refills Start Date End Date multivitamin Take 1 tablet by mouth 0 (THERAGRAN) Tablet daily. riboflavin, vitamin Take 1 tablet by mouth 30 tablet 11 11/15 B2, 100 mg daily. TabletIndications: Headache(784.0) celecoxib (CELEBREX) Take 200 mg by mouth. 0 08/1603/08/2017 200 mg Capsule omeprazole (PRILOSEC) TAKE 1 CAPSULE BY 0 013 05/12/2017 20 mg Capsule, Delayed MOUTH DAILY FOR Release(E.C.) STOMACH clonazePAM (KLONOPIN) Take 1 tablet by mouth 90 tablet 0 08/28/2016 1 mg Tablet 3 times daily. QUEtiapine (SEROQUEL) Take 1 to 2 tablets at 60 tablet 1 09/28/2016 50 mg Tablet night for sleep. QUEtiapine (SEROQUEL) Take 0.5 tablets by 30 tablet 1 07/2909/28/2016 25 mg Tablet mouth 2 times daily as needed (for anxiety). nicotine (NICODERM CQ) Place 1 patch onto the 28 patch 0 1 09/17/2015 09/21/2016 14 mg/24 hr Patch 24 skin daily. See hrIndications: Quit Package instructions smoking baclofen (LIORESAL) 20 Take 1 tablet by mouth 90 tablet 3 1 08/17/2015 10/12/2016 mg Tablet 3 times daily. DULoxetine (CYMBALTA) Take 1 capsule by 180 tablet 0 016 09/07/2016 60 mg Capsule, Delayed mouth 2 times daily. Release(E.C.) SUMAtriptan Succinate 6 mg SC for migraine, 4 kit 1 03/08/2017 6 mg/0.5 mL max 2 shots per day CartridgeIndications: Migraine with aura and without status migrainosus, not intractable fexofenadine-pseudoeph Take 1 tablet by mouth 1 tablet 0 1 11/11/2017 edrine (LORRIE-D 24) daily. 180-240 mg Tablet Sustained Release 24 hr SUMAtriptan (IMITREX) One PO for migraine , 9 tablet 11 11/16/2016 100 mg max 2/day, max 2 days TabletIndications: per week Migraine with aura and without status migrainosus, not intractable SUMAtriptan (IMITREX 6 mg SC for migraine , 1 each 11 09/09/2016 STATDOSE PEN) 6 mg/0.5 max 2 shots per day or mL Pen one shot + one eden InjectorIndications: pill Migraine with aura and without status migrainosus, not intractable candesartan (ATACAND) Take 1 tablet by mouth 30 tablet 11 04/08/2017 16 mg every evening. TabletIndications: Migraine with aura and without status migrainosus, not intractable ferrous sulfate 325 mg Take 1 tablet by mouth 7 tablet 0 0 04/04/2016 09/18/2019 (65 mg iron) Tablet, daily. Delayed Release (E.C.) esomeprazole (NEXIUM) Take 1 capsule by 60 capsule 12 016 11/27/2016 40 mg Capsule, Delayed mouth 2 times daily. Release(E.C.) sucralfate (CARAFATE) Take 1 tablet by mouth 120 tablet 5 06/03/2018 1 gram Tablet 4 times daily. topiramate (TOPAMAX) Take 1 tablet by mouth 30 tablet 11 01/13/2017 100 mg nightly. TabletIndications: Headache(784.0) folic acid (FOLVITE) 1 Take 1 tablet by mouth 30 tablet 12 0 10/24/2013 06/03/2018 mg tablet daily. documented as of this encounter Progress Notes Prosper Baugh DO - 08/26/2016 2:20 PM EST HOSPITAL MEDICINE ATTENDING DAY OF DISCHARGE NOTE Patient Lisseth Boone 1970 [id number] Physician Prosper Baugh DO Pager: [phone] Hospitalist Encounter Date August 26, 2016 PCP Lolis Moss MD PCP phone [phone] Discharge diagnosis Active Hospital Problems Diagnosis ??? Altered mental status Resolved Hospital Problems Diagnosis Date Resolved No resolved problems to display. Secondary Issues Active Non-Hospital Problems Diagnosis ??? Depression ??? Viral warts ??? Fibromyalgia ??? Psoriatic arthritis ??? Anxiety ??? Primary insomnia ??? Weight loss ??? Migraine ??? Amnesia ??? MCI (mild cognitive impairment) ??? Closed TBI (traumatic brain injury) ??? Closed C1 fracture ??? Fibrocystic breast changes ??? Breast cancer screening, high risk patient Altered mental status improved after hydration and holding quetiapine. Discussed with psychiatry andthey wish to continue her quetiapine on discharge. She will follow-up with them for continued management. Neurology appointment scheduled for later this month. I have personally seen and examined the patient and they are ready for discharge. I spent >30 minutes (Day of Discharge Code 02863) involved in the final examination of the patient, discussion of the hospital stay, instructions for continuing care to all relevant caregivers, and preparation of discharge records, prescriptions and referral forms. Plans Discharge to home Follow-up scheduled with Future Appointments Date Time Provider Department Center 09/09/2016 1:00 PM Maxwell Mcfarland MD [facility] [place] [facility] 09/15/2016 10:30 AM Lolis Moss MD [facility] Please see the Discharge Summary for complete details of any medication changes and additional plans. Prosper Baugh DO Pager: [phone] August 26, 2016 2:20 PM documented in this encounter H&P Notes Chava Rowley MD - 08/25/2016 6:32 PM EST Inpatient Hospital Medicine - Admission Note Problem List: Active Hospital Problems Diagnosis ??? Altered mental status Resolved Hospital Problems Diagnosis Date Resolved No resolved problems to display. Active Non-Hospital Problems Diagnosis ??? Depression ??? Viral warts ??? Fibromyalgia ??? Psoriatic arthritis ??? Anxiety ??? Primary insomnia ??? Weight loss ??? Migraine ??? Amnesia ??? MCI (mild cognitive impairment) ??? Closed TBI (traumatic brain injury) ??? Closed C1 fracture ??? Fibrocystic breast changes ??? Breast cancer screening, high risk patient ID: 46 y.o. Female presents to [facility] with History of Present Illness: HPI 46 y/o female with pmhx TBI with residual MCI, depression, anxiety, migraines presenting from home with altered mental status. Patient was unable to provide history so history was collected from patient's . The patient was in her usual state of health until 4 days prior to admission when she acutely becameconfused. She was alert however would walk around the house aimlessly and wouldn't answer questions appropriately. Her symptoms improved over the weekend however acutely worsened again 2 days prior to a dmission. Her reports that the patient stopped speaking and would just stare blankly. He does not report any fevers or recent illnesses. He also denies any recent medication changes. She did not have any seizure like activity and he denies her doing any recreational drugs. He does note that she had severe migraines at the end of last week prompting her to take more of her prn sumatriptan as well as higher doses of her seroquel. The patient's states that she has had several episodes like this in the past and he correlates them to times of stress (which she is currently experiencing). Review of Systems: Review of Systems 10 point review of systems negative other than what is detailed above. Past Medical and Surgical History: Past Medical History Diagnosis Date ??? Anxiety ??? Back pain ??? Bipolar disorder ??? C1 cervical fracture ??? Cancer ??? Cervical cancer ??? Chronic kidney disease ??? Depression ??? ELIANA (generalized anxiety disorder) ??? GERD (gastroesophageal reflux disease) ??? Headache(784.0) ??? Hypertension ??? Metabolic acidosis ??? Psoriasis ??? Psoriatic arthritis ??? Psychosis ??? TBI (traumatic brain injury) Sep ??? Total body pain Past Surgical History Procedure Laterality Date ??? Cervix surgery ??? Cholecystectomy ??? Tubal ligation ??? Pro colonoscopy, biopsy N/A 02/11/2016 COLONOSCOPY FLEXIBLE, WITH BX performed by David Hardy MD at [facility] ??? Pro upper gi endoscopy, biopsy N/A 02/11/2016 UPPER GASTROINTESTINAL ENDOSCOPY,WITH BIOPSY SINGLE OR MULTIPLE performed by David Hardy MD at [facility] ??? Ovarian cyst removal right Prior To Admission Medications: (Not in a hospital admission) Allergies: Allergies Allergen Reactions ??? Pollen Extracts Family History: Family History Problem Relation Age of Onset ??? Migraines Father ??? Arthritis Father psoratic ??? Breast Cancer Mother 30 ??? Cervical Cancer Mother ??? Ovarian Cancer Maternal Grandmother ??? Breast Cancer Paternal Grandmother 72 Social History and Habits: Social History Social History ??? Marital status: Spouse name: N/A ??? Number of children: N/A ??? Years of education: N/A Occupational History ??? Not on file. Social History Main Topics ??? Smoking status: Former Smoker Packs/day: 0.00 Years: 15.00 Types: Cigarettes Quit date: 12/08/2002 ??? Smokeless tobacco: Never Used ??? Alcohol use Yes Comment: occasional ??? Drug use: No ??? Sexual activity: Yes Partners: Male Comment: Deferred Other Topics Concern ??? 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 Influenza PF, Split 05/20/2016 ??? Influenza Vaccine w/Preservative, Split 05/15/2012 ??? Pneumococcal Polyvalent 23 06/16/2010 ??? Tdap Vaccine 05/20/2016 Physical Exam: Last Set of Vitals and range of vitals over past 24 hours: Last value Range last 24 hrs Temperature Temp: 36.5 ??C (97.7 ??F) Temp: [36.5 ??C (97.7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 mg Tablet Take 1 to 2 tablets at night for sleep. 60 tablet 1 ??? QUEtiapine (SEROQUEL) 25 mg Tablet Take 0.5 tablets by mouth 2 times daily as needed (for anxiety). 30 tablet 1 ??? nicotine (NICODERM CQ) 21 mg/[address] 1 patch onto the skin daily. See package instructions 28 patch 0 ??? nicotine (NICODERM CQ) 14 mg/24 [address] 1 patch onto the skin daily. See Package instructions 28 patch 0 ??? nicotine (NICODERM CQ) 7 mg/24 [address] 1 patch onto the skin daily. See package instructions 28 patch 1 ??? baclofen (LIORESAL) 20 mg Tablet Take 1 tablet by mouth 3 times daily. 90 tablet 3 ??? DULoxetine (CYMBALTA) 60 mg Capsule, Delayed Release(E.C.) Take 1 capsule by mouth 2 times daily. 180 tablet 0 ??? SUMAtriptan Succinate 6 mg/0.5 mL Cartridge 6 mg SC for migraine, max 2 shots per day 4 kit 1 ??? fexofenadine-pseudoephedrine (LORRIE-D 24) 180-240 mg Tablet Sustained Release 24 hr Take 1 tablet by mouth daily. (Patient taking differently: Take 1 tablet by mouth daily as needed.) 1 tablet 0 ??? SUMAtriptan (IMITREX) 100 mg Tablet One PO for migraine , max 2/day, max 2 days per week 9 tablet 11 ??? SUMAtriptan (IMITREX STATDOSE PEN) 6 mg/0.5 mL Pen Injector 6 mg SC for migraine , max 2 shots per day or one shot + one eden pill 1 each 11 ??? candesartan (ATACAND) 16 mg Tablet [...] by mouth daily. 30 tablet 11 ??? diphenhydrAMINE (BENADRYL) 25 mg Capsule Take 1 capsule by mouth every 6 hours as needed for Itching (take in the onset of migraine with thorazine). 30 capsule 0 ??? folic acid (FOLVITE) 1 mg tablet Take 1 tablet by mouth daily. 30 tablet 12 Allergies: Allergies Allergen Reactions ??? Pollen Extracts Family Psychiatric/Medical History: (mental illness, substance use, suicide) Mother - unknown psychiatric illness, but pt recalls her behaving erratically Cousin - psychosis Mat Uncle - unknown mental illness, drug abuse Social History: Lives with , daughter, college-age son. Homeschooled daughter because of bullying. 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 Got Masters degree and did post-grad work but did not finish thesis PSYCHIATRIC / MENTAL STATUS EXAMINATION Musculoskeletal System: No atrophy or abnormal movements appreciated. Gait and station are within normal limits. (See also: MSE: Behavior) ??? Appearance: pt with dilated pupils, fixed stare, looking frightened, body stiff Behavior: hands on face, minimally participatory ??? Speech: delayed, soft-spoken, difficult to understand ??? Language: fluent French ??? Mood: frightened Affect: constricted ??? Thought Process: blocked ??? Associations: loose ??? Thought Content: no si/hi Perception: did not appear to be responding to internal stimuli ??? Orientation: not oriented to place ??? Attention/Concentration: limited Cognition: grossly impaired ??? Memory: global memory impairment noted ??? Fund of Knowledge: poor ??? Insight: unable to assess Judgment: unable to assess Assessment: 46 year old female with AMS presents with questionable diagnosis of conversion disorder vs.organic causes. Pt currently does not want to be admitted to psychiatry; she is not currently suicidal but herdecline in functioning and frequent episodes with a similar presentation are very concerning and warrant further evaluation. Diagnosis: [place] I: Altered Mental Status [place] II: deferred [place] III: migraines [place] IV: family stressors, job security [place] V: current GAF 35 Plan/Recommendations: Pt will be admitted to the medicine service for further evaluation and followed by the psychiatric consult team while inpatient. Addendum: Pt confirms her home meds: Baclofen 20mg tid Candasartan 16mg daily Klonopin 1mg tid Benadryl 25mg - prn, though denies recent use Cymbalta 60mg BID Nexium 40mg prn, unclear how often [place] as needed Folic acid MVI Seroquel 12.5mg during day, 50-100mg QHS Sucralfate 1g QID Sumatriptan prn, unclear how often Topamax 100mg QHS Reports that in in days leading to hospitalization felt dizzy and out of myself. Was behaving oddly - ex. Obsessively cleaning. Denies hallucinations - auditory or visual. Denies any medication misuse - I've been taking them exactly like I'm supposed to. Denies any additional meds beyond her med list. Reports that sx started about 4 days ago - was talking to when fell asleep mid-sentence, unable to wake her. Pt recalls being shaky during the episode. initially hesitated to go to [place] ED, but ultimately did when condition worsened. contacted to provide additional hx. He reports that pt was consistently groggy and sleepy, slurring her words on Wednesday. Shespontaneously improved on Wednesday. By Wednesday night, she had gotten worse - deer in the headlight look...very disoriented. denies full body convulsions, but has noted intermittent hand and leg shaking that correlate to when she is out of it. Pt adamant that she wants to go home. Feels safe. Feels better and wants to attend to responsibilities at home. Has upcoming appt with Neurology on 09/09. Patient Vitals for the past 8 hrs: BP Temp Temp src Pulse Resp SpO2 08/26/16 0900 (!) 141/95 36.6 ??C (97.9 ??F) Oral 108 16 98 % 08/26/16 0539 (!) 128/92 36.8 ??C (98.2 ??F) Oral 90 16 99 % Motor: Slight tremor; otherwise no abnl movements. ?? Appearance: Age appropriate female; hospital attire; appropriately groomed. Hair dyed blonde. ?? Behavior: no psychomotor retardation or agitation; calm and cooperative; appropriate eye contact ?? Speech: non-pressured; spontaneous; conversational volume and prosody ?? Language: fluent; non-profane ?? Mood: nervous because I want to go home ?? Affect: mood congruent, appropriate range ?? Thought Process: linear, goal-directed ?? Associations: clear; intact; no JT ?? Thought Content: denies SI and HI ?? Perception: Not seen responding to internal stimuli ?? Orientation: AAOx4 (person, place, time, and situation) ?? Attention/Concentration: intact to conversation ?? Cognition: appropriate ?? Memory: recent and remote recall intact ?? Fund of Knowledge: age appropriate ?? Insight: fair ?? Judgment: fair Addendum: 46yo F hx anxiety, depression presenting with disorganized behavior. Pt has presented several times to our and OSH ED since summer with similar presentations. Ddx for her behavior remains broad, including organic illness stemming from polypharmacy or medication overdose. This is supported by the signsof a toxidrome on exam. An organic etiology is further supported by the waxing and waning nature of the episode (symptoms fluctuating even without treatment) and episodes of incontinence. Her 'sreport of shakiness and apparent LOC suggest possible seizure along with post-ictal psychosis. Finally, considering primary psychiatric disorder. Recommendations: - Neurology consult to consider possibility of seizures or other neurologic basis for presentation. Consider 24 hour EEG - Continue with home psychotropic meds as prescribed. Discontinue as necessary for purposes of EEG - Psychiatry will continue to follow. Recommendations communicated to primary software team leader Deana Asher. Debra Munguia MD Associated attestation - Ang Blum MD - 09/01/2016 10:12 AM EST Psychiatry Attending Note I discussed the case with the resident, and saw and evaluated the patient (on 08/26) within 24 hours of the service described in the resident's note. I reviewed the patient???s history during the visit and I agree with the details as written. My examconfirms the resident's findings. The assessment and plan were formulated in discussion with me and I agree with them as documented. Major issues addressed/discussed: Ms Boone is a 46M well known to our service, sees Dr Munguia as an outpatient. She was admitted with changes in mental status and shakiness with a wide differential of causes. She is insisting upon leaving and there are no acute safety concerns; recommend that shef/u with Dr Munguia. Ang Blum MD Psychiatry Consultation Pager: [phone] ED Triage - Andre, Elizabeth Major RN - 08/25/2016 1:17 PM EST Patient presents to ER by POV with for increased somnolence and altered mental status since Wednesday. Patient has history of TBI and has had episodes like this in the past, states that this is similar to past episodes but this time patient is more somnolent and only answering her name to questions. Patient resting eyes closed on stretcher, does wake with shaking and answers her first name to all questions. Respirations even and unlabored, skin PWD. denies any new or recent trauma. documented in this encounter Plan of Treatment Upcoming Encounters Date Type Specialty Care Team Description 04/14/2022 Office Visit Neurology Cameron Alves MD [facility] er Dr [place], [place] [address] (Wo rk) documented as of this encounter Procedures Procedure Name Priority Date/Time Associated Comments Diagnosis SALVAGE SUPERVISOR SCAN 08/27/2016 12:00 AM EST BASIC METABOLIC Routine 08/26/2016 6:48 AM Result s for this PANEL (NON-FASTING) EST procedur e are in the results section. RAPID DRUG SCREEN STAT 08/25/2016 5:33 PM Resu lts for this W/O CONFIRMATION, EST procedure are in URINE the results section. URINALYSIS WITH STAT 08/25/2016 5:33 PM Result s for this REFLEX CULTURE EST procedure are in the results section. HEMOGRAM STAT 08/25/2016 1:15 PM Results f or this EST procedure are i n the results section. DIFFERENTIAL, STAT 08/25/2016 1:15 PM Results for this AUTOMATED EST procedure are i n the results section. GOLD TUBE HOLD STAT 08/25/2016 1:15 PM Results for this EST procedure are i n the results section. BLUE TUBE HOLD STAT 08/25/2016 1:15 PM Results for this EST procedure are i n the results section. CBC (WITH DIFF) STAT 08/25/2016 1:15 PM EST TSH STAT 08/25/2016 1:15 PM Results f or this EST procedure are i n the results section. AMMONIA STAT 08/25/2016 1:15 PM Results f or this EST procedure are i n the results section. ETHANOL LEVEL STAT 08/25/2016 1:15 PM Results for this EST procedure are i n the results section. HEPATIC FUNCTION STAT 08/25/2016 1:15 PM Resul ts for this PANEL EST procedure are i n the results section. BASIC METABOLIC STAT 08/25/2016 1:15 PM Result s for this PANEL (NON-FASTING) EST procedur e are in the results section. documented in this encounter Results SCAN DOC: SALVAGE SUPERVISOR (08/27/2016 12:00 AM EST) Narrative This result has an attachment that is no t available. Scanning Provider MEDIA MGR SCAN EXT ORDR/RSLT (ABNORMAL) Basic Metabolic Panel (non-fasting) (08/26/2016 6:48 AM EST) athologist Signature Glucose Lvl 94 65 - 199 [facility] mg/dL [facility] Comment: Diabetes: >=200 mg/dL plus symp toms BUN 12 8 - 18 mg/dL [facility] Creatinine 0.67 (L) 0.70 - 1.20 mg/dL [facility] Comment: Please note that the pediatric reference intervals supplied above were not validated at [facility]. Results from pediatri c patients should be interpreted in conjunction to the patient's age, height and muscle mass. Sodium 144 135 - 145 mmol/L [facility] Potassium 3.4 (L) 3.5 - 5.0 mmol/L [facility] Comment: Please note: ??Patients with WBC >100,00 0 may have falsely elevated Potassium levels. ??For accurate Potassium quantif ication in these patients send serum separator tube (gold top) for subsequent determinations. ??Contact the Clinical Chemistry Laboratory if there are any qu estions. Chloride 112 (H) 98 - 107 mmol/L [facility] CO2 19 (L) 22 - 31 mmol/L [facility] Anion Gap 13 5 - 15 mmol/L [facility] Calcium 8.4 (L) 8.5 - 10.5 mg/dL [facility] Estimated GFR >60 >=60 [facility] Comment: This estimated GFR (eGFR) value [...] the following links into your internet browser. [email or web address] [email or web address] Specimen Anatomical Collection Method Collection Time Receive d Time (Source) Location / / Volume Laterality Blood specimen 08/26/2016 6:48 AM 017 7:01 (specimen) EST AM EST Resulting Agency Comment Spec In Lab Chava Rowley MD CHEMISTRY ORDERABLES Performing Organization Address City/State/[place] [address] (ABNORMAL) Rapid Drug Screen, Urine (08/25/2016 5:33 PM EST) [facility] [employer] Method Time Signature PREM Marijuana None None [facility] Metabolites Scr Detected Detected [facility] Comment: The marijuana metabolites screen detects the THC Metabolite (77-lqe-9-carboxy-delta 9-THC) at concen trations >50 ng/mL. Qualitative Drug screens are reported as ? None Detected? or ? Presumptive Positive? as the results are not routinely confirmed by highly-specific methods. As with any screen occasional f alse positive results from cross-reacting substances can occur. Not for Medico-Legal Purposes. PREM Phencyclidine Scr None Detected None Detected [facility] Comment: The phencyclidine screen detects phencyc lidine at concentrations >25 ng/mL. Qualitative Drug screens are reported as ? None Detected? or ? Presumptive Positive? as the results are not routinely confirmed by highly-specific methods. As with any screen occasional f alse positive results from cross-reacting substances can occur. Not for Medico-Legal Purposes. PREM Cocaine Metabolites None Detected None Detected [facility] Comment: The cocaine metabolites screen detects b enzoylecgonine (Cocaine Metabolite) at concentrations >150 ng/mL. Qualitative Drug screens are reported as ? None Detected? or ? Presumptive Positive? as the results are not routinely confirmed by highly-specific methods. As with any screen occasional f alse positive results from cross-reacting substances can occur. Not for Medico-Legal Purposes. PREM Methamphetamines Scr None Detected None Detected [facility] Comment: The methamphetamine screen detects d-met hamphetamine at concentrations >500 ng/mL. Qualitative Drug screens are reported as ? None Detected? or ? Presumptive Positive? as the results are not routinely confirmed by highly-specific methods. As with any screen occasional f alse positive results from cross-reacting substances can occur. Not for Medico-Legal Purposes. PREM Opiates Scr None Detected None Detected [facility] Comment: The opiates screen detects opiates at a concentration >100 ng/mL and oxymorphone >250 ng/mL. Qualitative Drug screens are reported as ? None Detected? or ? Presumptive Positive? as the results are not routinely confirmed by highly-specific methods. As with any screen occasional f alse positive results from cross-reacting substances can occur. Not for Medico-Legal Purposes. PREM Amphetamines Scr None Detected None Detected [facility] Comment: The amphetamine screen detects d-ampheta mine at concentrations >500 ng/mL. Qualitative Drug screens are reported as ? None Detected? or ? Presumptive Positive? as the results are not routinely confirmed by highly-specific methods. As with any screen occasional f alse positive results from cross-reacting substances can occur. Not for Medico-Legal Purposes. PREM Benzodiazepines Scr None Detected None Detected [facility] Comment: The benzodiazepines screen detects benzo diazepines at concentrations >150 ng/mL. Not all benzodiazepines cross-marcus ct equally with antibody used in this screen. Due to the low dosage of clonaze tani, false negatives may be obtained due to low concentration of clonazepam m etabolites. Qualitative Drug screens are reported as ? None Detected? or ? Presumptive Positive? as the results are not routinely confirmed by highly-specific methods. As with any screen occasional f alse positive results from cross-reacting substances can occur. Not for Medico-Legal Purposes. PREM Tricyclics Scr Presumptive Pos (A) None Detected [facility] Comment: The tricyclics screen detects tricyclic antidepressants at concentrations >300 ng/mL. Not all tricyclics cross-react eq ually with the antibody used in this screen. Qualitative Drug screens are reported as ? None Detected? or ? Presumptive Positive? as the results are not routinely confirmed by highly-specific methods. As with any screen occasional f alse positive results from cross-reacting substances can occur. Not for Medico-Legal Purposes. PREM Methadone Scr None Detected None Detected [facility] Comment: The methadone screen detects methadone a t concentrations >200 ng/mL. Qualitative Drug screens are reported as ? None Detected? or ? Presumptive Positive? as the results are not routinely confirmed by highly-specific methods. As with any screen occasional f alse positive results from cross-reacting substances can occur. Not for Medico-Legal Purposes. PREM Barbiturates Scr None Detected None Detected [facility] Comment: The barbiturates screen detects barbitur ate at concentrations >200 ng/mL. Note: Not all barbiturates cross-react equally with antibody used in this screen. Qualitative Drug screens are reported as ? None Detected? or ? Presumptive Positive? as the results are not routinely confirmed by highly-specific methods. As with any screen occasional f alse positive results from cross-reacting substances can occur. Not for Medico-Legal Purposes. PREM Oxycodone Scr None Detected None Detected [facility] Comment: The oxycodone screen detects oxycodone a t concentrations >100 ng/mL and oxymorphone >250 ng/ml. Qualitative Drug screens are reported as ? None Detected? or ? Presumptive Positive? as the results are not routinely confirmed by highly-specific methods. As with any screen occasional f alse positive results from cross-reacting substances can occur. Not for Medico-Legal Purposes. PREM Propoxyphene Scr None Detected None Detected [facility] Comment: The propoxyphene screen detects propoxyp hene at concentrations >300 ng/mL. Qualitative Drug screens are reported as ? None Detected? or ? Presumptive Positive? as the results are not routinely confirmed by highly-specific methods. As with any screen occasional f alse positive results from cross-reacting substances can occur. Not for Medico-Legal Purposes. PREM Buprenorphine Scr None Detected None Detected [facility] Comment: The buprenorphine screen detects bupreno rphine at concentrations >10 ng/mL. Qualitative Drug screens are reported as ? None Detected? or ? Presumptive Positive? as the results are not routinely confirmed by highly-specific methods. As with any screen occasional f alse positive results from cross-reacting substances can occur. Not for Medico-Legal Purposes. PREM Adulterants Screen None Detected None Detected [facility] Comment: No adulteration or dilution of this urin e sample was detected. All urine samples submitted for urine drugs of abu se analysis are tested for Creatinine and pH and for the presence of oxidants, nitrites, chromate and aldehydes (glutaraldehyde). Specimen Anatomical Collection Method Collection Time Receive d Time (Source) Location / / Volume Laterality Urine specimen 08/25/2016 5:33 PM 017 5:46 (specimen) EST PM EST Resulting Agency Comment Spec In Lab Reynaldo Adler MD URINE ORDERABLES Performing Organization Address City/State/[place] [address] (ABNORMAL) Urinalysis with reflex Culture (08/25/2016 5:33 PM EST) [facility] Method Time Signature Glucose UA Negative Negative [facility] mg/dL [facility] Protein UA 30 (A) Negative [facility] mg/dL [facility] Bilirubin UA Negative Negative [facility] mg/dL [facility] Comment: Clinical correlation required for positi ve Urine Bilirubin results as false positive may occur with some drugs and d rug related products. If a false positive is suspected a serum total bili kelly should be considered if clinically indicated. Urobilinogen UA Normal Normal mg/dL [facility] pH UA 6.0 5.0 - 8.0 [facility] Blood UA Large (A) Negative mg/dL [facility] Ketones UA Negative Negative mg/dL [facility] Nitrite UA Negative Negative [facility] Leukocytes UA Negative Negative [facility] Appearance UA Clear Clear [facility] Spec Belen UA 1.012 1.002 - 1.030 [facility] Color UA Yellow Yellow [facility] RBC UA 4 0 - 4 /HPF [facility] WBC UA 4 0 - 5 /HPF [facility] Bacteria UA Rare (A) None /HPF [facility] Squam Epith UA 4 <=4 /HPF [facility] Culture Reflexed No [facility] Specimen Anatomical Collection Method Collection Time Receive d Time (Source) Location / / Volume Laterality First stream 08/25/2016 5:33 PM 7 5:46 urine sample EST PM EST (specimen) Resulting Agency Comment Spec In Lab Reynaldo Adler MD URINE ORDERABLES Performing Organization Address City/State/[place] [address] (ABNORMAL) Differential, Automated (08/25/2016 1:15 PM EST) P athologist Signature Neutrophils % 71.5 % [facility] Neutr Abs (ANC) 6.04 1.70 - [facility] 6.10 [facility] x10(3)/[facility] Lymphocytes % 16.1 % [facility] Lymphocytes Abs 1.4 0.9 - 3.2 [facility] x10(3)/[facility] LABORATORY Monocytes % 5.8 % [facility] Monocyte Abs 0.5 0.3 - 0.9 [facility] x10(3)/[facility] LABORATORY Eosinophils % 5.2 % [facility] Eosinophils Abs 0.4 0.0 - 0.4 [facility] x10(3)/[facility] LABORATORY Basophils % 0.8 % [facility] Basophils Abs 0.1 0.0 - 0.1 [facility] x10(3)/[facility] LAB[facility]ATORY Immature Gran % 0.60 % [facility] Comment: Immature granulocytes(IG's)percentage an d absolute count will include metamyelocytes, myelocytes, and promyelo cytes. Blood smears from CBCs yielding IG's will be scanned manually for concor dance. If this scan disagrees with the automated IG or if promyelocytes are not ed, a manual differential will be performed. Rosangela Gran Abs 0.05 (H) 0.00 - 0.04 x10(3)/[facility] LABORATORY Specimen Anatomical Collection Method Collection Time Receive d Time (Source) Location / / Volume Laterality Blood specimen 08/25/2016 1:15 PM 017 1:22 (specimen) EST PM EST Resulting Agency Comment Spec In Lab Reynaldo Adler MD HEMATOLOGY ORDERABLES Performing Organization Address City/State/ZIP Code Phon e Number [address] (ABNORMAL) Hemogram (08/25/2016 1:15 PM EST) Analysis Performed At Patho logist Time Signature WBC 8.4 4.0 - 9.5 [facility] x10(3)/[facility] LABORATORY RBC 3.70 (L) 4.00 - [place] PINK[place] 5.21 [facility] x10(6)/[facility] LABORATORY Hemoglobin 10.8 (L) 11.7 - [facility] gm/dL [facility] LABORATORY Hematocrit 33.0 (L) 35.7 - [facility] 45.8 % [facility] LABORATORY MCV 89.2 82.6 - [facility] 94.4 [facility] LABORATORY MCH 29.2 27.1 - [place] 32.0 pg [facility] LABORATORY MCHC 32.7 31.7 - [facility] 35.[facility] gm/dL [facility] LABORATORY Platelets 418 (H) 145 - 357 [facility] x10(3)/[facility] LABORATORY RDWSD 51.4 (H) 37.0 - [facility]0 [facility] LABORATORY RDWCV 15.8 (H) 11.5 - [facility]INK[facility] 14.1 % [facility] LABORATORY MPV 11.5 7.6 - 12.9 [facility] LABORATORY nRBC % Auto 0.0 % [facility] LABORATORY nRBC Abs Auto 0.000 0.000 - [place]INK[place] 0.000 [facility] x10(3)/[facility] LABORATORY Specimen Anatomical Collection Method Collection Time Receive d Time (Source) Location / / Volume Laterality Blood specimen 08/25/2016 1:15 PM 017 1:22 (specimen) EST PM EST Resulting Agency Comment Spec In Lab Reynaldo Adler MD HEMATOLOGY ORDERABLES Performing Organization Address City/State/[place] [address] Gold Tube HOLD (08/25/2016 1:15 PM EST) P athologist Signature Gold Hold Sample in [facility] LABORATORY Specimen Anatomical Collection Method Collection Time Receive d Time (Source) Location / / Volume Laterality Blood specimen 08/25/2016 1:15 PM 017 1:22 (specimen) EST PM EST Haydee Muller MD CHEMISTRY ORDERABLES Performing Organization Address City/[facility]/[place] [address] Blue Tube HOLD (08/25/2016 1:15 PM EST) P athologist Signature Blue Hold Sample in [facility] LABORATORY Specimen Anatomical Collection Method Collection Time Receive d Time (Source) Location / / Volume Laterality Blood specimen 08/25/2016 1:15 PM 017 1:22 (specimen) EST PM EST Haydee Muller MD HEMATOLOGY ORDERABLES Performing Organization Address City/[facility]/[place] [address] Ammonia (08/25/2016 1:15 PM EST) P athologist Signature Ammonia 13 11 - 51 [facility] LABORATORY Specimen Anatomical Collection Method Collection Time Receive d Time (Source) Location / / Volume Laterality Blood specimen 08/25/2016 1:15 PM 017 1:23 (specimen) EST PM EST Resulting Agency Comment Spec In Lab Reynaldo Adler MD CHEMISTRY ORDERABLES Performing Organization Address City/[facility]/[place] [address] Ethanol Level (08/25/2016 1:15 PM EST) P athologist Signature Ethanol Lvl <100 mg/L [facility] LABORATORY Comment: Greater than 800 mg/L (0.08%) should be considered intoxicated. 3400 to 4500 mg/L (0.34 - 0.45%) is cons idered severe intoxication. Greater than 5500 mg/L (0.55%) is usuall y fatal. Specimen Anatomical Collection Method Collection Time Receive d Time (Source) Location / / Volume Laterality Blood specimen 08/25/2016 1:15 PM 017 1:22 (specimen) EST PM EST Resulting Agency Comment Spec In Lab Reynaldo dAler MD CHEMISTRY ORDERABLES Performing Organization Address City/[facility]/[place] [address] TSH (08/25/2016 1:15 PM EST) P athologist Signature TSH 1.08 0.27 - 4.20 [place] P[place] mcIU/mL [facility] LABORATORY Specimen Anatomical Collection Method Collection Time Receive d Time (Source) Location / / Volume Laterality Blood specimen 08/25/2016 1:15 PM 017 1:22 (specimen) EST PM EST Resulting Agency Comment Spec In Lab Reynaldo Adler MD CHEMISTRY ORDERABLES Performing Organization Address City/[facility]/[place] [address] Hepatic Function Panel (08/25/2016 1:15 PM EST) P athologist Signature Total Protein 7.0 6.1 - 8.0 [place] gm/dL [facility] LABORATORY Albumin 4.3 3.2 - 5.2 [place] gm/dL [facility] LABORATORY AST 10 0 - 30 [place] unit/L [facility] LABORATORY ALT 7 0 - 30 [place] unit/L [facility] LABORATORY Alk Phos 63 40 - 104 [place] unit/L [facility] LABORATORY Total 0.2 0.2 - 1.3 [place] Bilirubin mg/dL [facility] LABORATORY Bili, Direct 0.1 0.0 - 0.3 [place] mg/dL [facility] LABORATORY Specimen Anatomical Collection Method Collection Time Receive d Time (Source) Location / / Volume Laterality Blood specimen 08/25/2016 1:15 PM 017 1:22 (specimen) EST PM EST Resulting Agency Comment Spec In Lab Reynaldo Adler MD CHEMISTRY ORDERABLES Performing Organization Address City/[facility]/[place] [address] (ABNORMAL) Basic Metabolic Panel (non-fasting) (08/25/2016 1:15 PM EST) P athologist Signature Glucose Lvl 107 65 - 199 [facility] mg/dL [facility] LABORATORY Comment: Diabetes: >=200 mg/dL plus symp toms BUN 15 8 - 18 mg/dL [facility] LABORATORY Creatinine 0.80 0.70 - 1.20 mg/dL [facility] LABORATORY Comment: Please note that the pediatric reference intervals supplied above were not validated at [facility]. Results from pediatri c patients should be interpreted in conjunction to the patient's age, height and muscle mass. Sodium 146 (H) 135 - 145 mmol/L [facility] LABORATORY Potassium 3.4 (L) 3.5 - 5.0 mmol/L [facility] LABORATORY Comment: Please note: ??Patients with WBC >100,00 0 may have falsely elevated Potassium levels. ??For accurate Potassium quantif ication in these patients send serum separator tube (gold top) for subsequent determinations. ??Contact the Clinical Chemistry Laboratory if there are any qu estions. Chloride 111 (H) 98 - 107 mmol/L [facility] LABORATORY CO2 21 (L) 22 - 31 mmol/L [facility] LABORATORY Anion Gap 14 5 - 15 mmol/L [facility] LABORATORY Calcium 9.3 8.5 - 10.5 mg/dL [facility] LABORATORY Estimated GFR >60 >=60 [facility] LABORATORY Comment: This estimated GFR (eGFR) value [...] the following links into your internet browser. http://[employer]/DHnkdep http://[employer]/DHMCnkf Specimen Anatomical Collection Method Collection Time Receive d Time (Source) Location / / Volume Laterality Blood specimen 08/25/2016 1:15 PM 017 1:22 (specimen) EST PM EST Resulting Agency Comment Spec In Lab Reynaldo Adler MD CHEMISTRY ORDERABLES Performing Organization Address City/State/ZIP Code [place] [address] documented in this encounter Visit Diagnoses Diagnosis Altered mental status, unspecified alter ed mental status type Mydriasis Mydriasis (persistent), not due to mydri atics Anxiety Anxiety state, unspecified Bipolar I disorder, most recent episode (or current) unspecified History of traumatic brain injury Personal history of traumatic brain inju ry Personal history of tobacco use, present ing hazards to health Encounter for long-term (current) use of other medications Other nonmedicinal substance allergy sta tus documented in this encounter Administered Medications Inactive Administered Medications - up to 3 most recent administrations Medication Order MAR Action Action Date Dose Rate Site acetaminophen (TYLENOL) tablet 650 Given 08/26/2016 5:25 AM EST 650 mg mg 650 mg, Oral, EVERY 4 HOURS PRN, Starting on Wed08/26/16 at 0347, Until Wed08/26/16 at 2043, Pain, Maximum dose of acetaminophen is 4000 mg from all sources in 24 hours., Routine candesartan (ATACAND) 16 mg tablet 16 mg Given 08/25/2016 10:05 PM EST 16 mg 16 mg, Oral, NIGHTLY, First dose on Wed08/25/16 at 2145, Until Discontinued, Routine clonazePAM (KlonoPIN) tablet 1 mg Given 08/26/2016 2:50 PM EST 1 mg 1 mg, Oral, 3 TIMES DAILY, First dose on Wed08/25/16 at 2145, Until Discontinued, Routine Given 08/26/2016 8:50 AM EST 1 mg Given 08/25/2016 10:06 PM EST 1 mg DULoxetine (CYMBALTA) capsule 60 mg Given 08/26/2016 8:46 AM EST 60 mg 60 mg, Oral, 2 TIMES DAILY, First dose on Wed08/26/16 at 0900, Until Discontinued, Routine ferrous sulfate EC tablet 325 mg Given 08/26/2016 8:46 AM EST 325 mg 325 mg, Oral, DAILY, First dose on Wed08/26/16 at 0900, Until Discontinued, DO NOT CRUSH OR OPEN. Take with food or water. , Routine folic acid (FOLVITE) tablet 1,000 mcg Given 08/26/2016 8:46 AM EST 1,000 mcg 1,000 mcg (1 mg), Oral, DAILY, First dose on Wed08/26/16 at 0900, Until Discontinued, Routine naproxen (ANAPROX) tablet 275 mg Given 08/25/2016 10:05 PM EST 275 mg 275 mg, Oral, ONCE, On Wed08/25/16 at 2215, 1 dose, take with food or milk nicotine (NICODERM CQ) Patch Applied 08/26/2016 8:48 AM 21 mg 04- Shoulder 21 mg/24 hr patch 21 mg EST (Right) 21 mg, Transdermal, DAILY, First dose on Wed08/25/16 at 1737, Until Discontinued, Routine Patch Applied 08/25/2016 5:45 PM EST 21 mg 09- Arm Upper (Left) nicotine (NICODERM CQ) 21 mg/24 hr patch Patch Removal Transdermal, DAILY, First dose on 07/02 at 0900, Until Discontinued, Remove nicotine 21 mg/24 hr patch nicotine (NICODERM CQ) 21 mg/24 hr patch Patch Verification Transdermal, 2 TIMES DAILY, First dose o n Wed08/26/16 at 0900, Until Discontinued, Verify nicotine 21 mg/24 hr patch pantoprazole (PROTONIX) tablet 40 mg Given 08/26/2016 8:48 AM EST 40 mg 40 mg, Oral, DAILY, First dose on Wed08/26/16 at 0900, Until Discontinued, DO NOT CRUSH OR OPEN, Routine sodium chloride 0.9 % flush 5 mL Given 08/26/2016 8:46 AM EST 5 mLs 5 mL, Intravenous, 2 TIMES DAILY, First dose on Wed08/25/16 at 2145, Until Discontinued, Routine Given 08/25/2016 10:06 PM EST 5 mLs sodium chloride 0.9% 1,000 mL IV bolus Given 08/25/2016 2:19 PM EST 4000 mL/hr at 4,000 mL/hr, Intravenous, ONCE, 1 dose, On Wed08/25/16 at 1413 sucralfate (CARAFATE) tablet 1 g Given 08/26/2016 4:57 PM EST 1 g 1 g, Oral, 4 TIMES DAILY, First dose on Wed08/25/16 at 2145, Until Discontinued, Routine Given 08/26/2016 2:40 PM EST 1 g Given 08/26/2016 8:46 AM EST 1 g documented in this encounter Active and Recently Administered Medications Times are shown in EST. Scheduled Medication Order 08/24/2016 08/25/2016 08/26/2016 candesartan (ATACAND) 16 mg tablet 16 mg 2204 (Given - Provider: Bhavani Suero RN) 16 mg, Oral, NIGHTLY, First dose on Wed08/25/16 at 2145, Until Discontinued, Routine clonazePAM (KlonoPIN) tablet 1 mg 2205 ( Given - Provider: Bhavani Suero RN) 0850 (Given - Provider: Jodi Knapp N)1450 (Given - Provider: Tiana Soria RN) 1 mg, Oral, 3 TIMES DAILY, First dose on Wed08/25/16 at 2145, Until Discontinued, Routine DULoxetine (CYMBALTA) capsule 60 mg 46 (Given - Provider: Tiana Soria RN) 60 mg, Oral, 2 TIMES DAILY, First dose o n Wed08/26/16 at 0900, Until Discontinued, Routine ferrous sulfate EC tablet 325 mg 46 (Given - Provider: Tiana Soria RN) 325 mg, Oral, DAILY, First dose on Wed at 0900, Until Discontinued, DO NOT CRUSH OR OPEN. Take with food or water. , Routine folic acid (FOLVITE) tablet 1,000 mcg 46 (Given - Provider: Tiana Soria RN) 1,000 mcg (1 mg), Oral, DAILY, First dos e on Wed08/26/16 at 0900, Until Discontinued, Routine naproxen (ANAPROX) tablet 275 mg (COMPLETED) 2204 (Given - Provider: Bhavani Suero RN) 275 mg, Oral, ONCE, 1 dose, Wed08/25/16 at 2215, take with food or milk, Routine nicotine (NICODERM CQ) 21 mg/24 hr patch 21 mg(Linked Group 1) 4463 (Patch Applied - Provider: Elizabeth Powell RN) 0848 (Patch Applied - Provider: Tiana Soria RN) 21 mg, Transdermal, DAILY, First dose on Wed08/25/16 at 1737, Until Discontinued, Routine nicotine (NICODERM CQ) 21 mg/24 hr patch Patch Removal(Linked Gr oup 1) 09 (Patch Removed - Provider: Tiana Soria RN) Transdermal, DAILY, First dose on 07/02 at 0900, Until Discontinued, Remove nicotine 21 mg/24 hr patch nicotine (NICODERM CQ) 21 mg/24 hr patch Patch Verification(Link ed Group 1) 09 (Patch (dose and location) verified - Provider: Tiana Soria RN) Transdermal, 2 TIMES DAILY, First dose o n Wed08/26/16 at 0900, Until Discontinued, Verify nicotine 21 mg/24 hr patch pantoprazole (PROTONIX) tablet 40 mg 0848 (Given - Provider: Tiana Soria RN) 40 mg, Oral, DAILY, First dose on 07/02 at 0900, Until Discontinued, DO NOT CRUSH OR OPEN, Routine sodium chloride 0.9 % flush 5 mL 2206 (G iven - Provider: Bhavani Suero RN) 0846 (Given - Provider: Jodi Knapp) 5 mL, Intravenous, 2 TIMES DAILY, First dose on Wed08/25/16 at 2145, Until Discontinued, Routine sodium chloride 0.9% 1,000 mL IV bolus (COMPLETED) 1419 (Given - Provider: Elizabeth Powell RN) at 4,000 mL/hr, Intravenous, ONCE, 1 dose, Wed08/25/16 at 1413 sucralfate (CARAFATE) tablet 1 g 2205 (G iven - Provider: Bhavani Suero RN) 0846 (Given - Provider: Jodi Knapp)1440 (Given - Provider: Tiana Soria, [facility])1657 (Given - Provider: Tiana Soria RN) 1 g, Oral, 4 TIMES DAILY, First dose on Wed08/25/16 at 2145, Until Discontinued, Routine PRN Medication Order 08/24/2016 08/25/2016 08/26/2016 acetaminophen (TYLENOL) tablet 650 mg 0525 (Given - Provider: Bhavani Suero, [facility]) 650 mg, Oral, EVERY 4 HOURS PRN, Startin g Wed08/26/16 at 0347, Until Wed08/26/16 at 2042, Pain, Maximum dose of acetaminophen is 4000 mg from all sources in 24 hours., Routine lidocaine (XYLOCAINE) 10 mg/mL (1 %) injection 3 mg 3 mg (0.3 mL), Subcutaneous, ONCE PRN, 1 dose, Starting Wed08/25/16 at 2116, Until Wed08/26/16 at 2042, for discomfort with PIV insertion, Routine sodium chloride 0.9 % flush 5-20 mL 5-20 mL, Intravenous, EVERY 1 MIN PRN, S tarting Wed08/25/16 at 2116, Until Wed08/26/16 at 2042, flush, Flush pertains to all indwelling lines. Flush per protocol found in the job aid using the link provided on this medication record., Routine Linked Groups Order Group 1: nicotine (NICODERM CQ) 21 mg/24 hr patch 21 mgJump to med 21 mg, Transdermal, DAILY, First dose on Wed08/25/16 at 1737, Until Discontinued, Routine And nicotine (NICODERM CQ) 21 mg/24 hr patch Patch VerificationJump to med Transdermal, 2 TIMES DAILY, First dose o n Wed08/26/16 at 0900, Until Discontinued
Verify nicotine 21 mg/24 hr patch
And nicotine (NICODERM CQ) 21 mg/24 hr patch Patch RemovalJump to med Transdermal, DAILY, First dose on 07/02 at 0900, Until Discontinued
Remove nicotine 21 mg/24 hr patch
documented in this encounter Care Teams Grass Cutter Relationship Specialty Start Date End Date Lolis Moss MD PCP - General General Internal Medicine 04/15/16 0 [facility] [address] documented as of this encounter
--- OUTSIDE RECORDS SUMMARY | 2022-03-18 11:34 | XMS_ITS | Encounter Summary ---
:1970 Author Organization [facility] [place] [address] Care Team Providers Name Role Phone Lolis Moss MD Primary Care Provider Encounter Details Date Type Department Care Team Description 07/29/2016 Orders Only Psychiatry and Behavioral Debra Gomez MD [facility] [place] [id number] [place] [id number] [phone] Social History Tobacco Use Types Packs/Day Years [...] encounter Progress Notes Debra Munguia MD - 07/29/2016 2:44 PM EST Pt returned call to discuss klonopin dose. Agreed that given increase in psychosocial stressors of late and recent exacerbation of anxiety, may return to taking klonopin 1mg tid, rather than bid. Pt also mentions plan to pursue disability insurance, feeling that both physical pain and emotional distress are impeding her ability to work. Will further discuss at appt next month. Pt verbalized feeling safe, having access to crisis numbers, and willing to call them in emergency. documented in this encounter Plan of Treatment Upcoming Encounters Date Type Specialty Care Team Description 04/14/2022 Office Visit Neurology Cameron Alves MD [facility] [place] [address] [place] [address] (Wo rk) documented as of this encounter Visit Diagnoses Not on filedocumented in this encounter Care Teams Cattle Dealer Relationship Specialty Start Date End Date Lolis Moss MD PCP - General General Internal Medicine 04/15/16 0 [facility] [address] [facility] [place] [address] documented as of this encounter
--- OUTSIDE RECORDS SUMMARY | 2022-03-18 11:34 | XMS_ITS | Encounter Summary ---
:1970 Author Organization [facility] [place] [address] Care Team Providers Name Role Phone Lolis Moss MD Primary Care Provider Encounter Details Date Type Department Care Team Description 07/31/2016 Telephone Psychiatry and Behavioral Debra Gomez MD [facility] [place] [id number] [place] [id number] [phone] Social History Tobacco Use Types Packs/Day Years [...] Telephone Encounter - Debra Munguia MD - 07/31/2016 10:17 AM EST Error documented in this encounter Plan of Treatment Upcoming Encounters Date Type Specialty Care Team Description 04/14/2022 Office Visit Neurology Cameron Alves MD [facility] [address] [place] [address] (Wo rk) documented as of this encounter Visit Diagnoses Not on filedocumented in this encounter Care Teams Rib Puller Relationship Specialty Start Date End Date Lolis Moss MD PCP - General General Internal Medicine 04/15/16 [address] [facility] [address] [facility] [place] [address] documented as of this encounter
--- OUTSIDE RECORDS SUMMARY | 2022-03-18 11:34 | XMS_ITS | Encounter Summary ---
:1970 Author Organization [facility] [place] [address] Care Team Providers Name Role Phone Lolis Moss MD Primary Care Provider Encounter Details Date Type Department Care Team Description 01/26/2017 Office Visit Psychiatry and Debra Munguia n, unspecified depression type; Behavioral Health at [place] Anxiety [facility] [place] [address] [place], [place] [phone] (Work) [phone] Social History Tobacco Use Types Packs/Day Years [...] Patient Instructions Patient InstructionsDebra Munguia MD - 01/26/2017 3:00 PM EDT In case of emergency, please go to your closest Emergency Department or call 911. Alternatively, if in acute crisis or are feeling unsafe, you can call the [facility] crisis number [phone]. You may also contact the [facility] crisis line at [phone] if you reside locally in [place]. You may contact [facility] crisis line at [phone] if you live locally in [place]. Please go onto [employer] to find a therapist in your area. documented in this encounter Progress Notes Debra Munguia MD - 01/26/2017 3:00 PM EDT Outpatient Psychiatry Initial Intake 01/26/2017 Lisseth Boone,a 46 y.o. female, for medication f/u. Duration: Pt is tolerating slow wean of klonopin. Feels Seroquel is helping. Very anxious about dropping belowklonopin 2mg. Has been on the meds for 10 years and felt that wean marked her decline. I was a different person [on a lower dose of klonopin]. Reports recent concern for Lyme disease after tick bite and a target lesion. Sx worsened after starting doxycycline, so course was truncated. Body aches, nausea, diarrhea, fatigue, poor sleep. Sx have since improved. Aside from this, however, mood has been okay. Sleep good, though affected by recent illness and heat. Some appetite problems of late due to illness. Concentration good. Energy good, though affected by anemia. Iron pills upset my stomach. Denies SI/HI. Denies AVH. Has gotten disability. 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 Has not had any more of the severe dissociative episodes. Did have a near panic attack when started googling her illness. helped to calm her down. Has made some attempt to see therapist and agrees to continue the search. Current meds: Klonopin 0.75mg BID, 1mg daily Cymbalta 60mg BID Seroquel 12.5mg BID prn, 50-100mg QHS (takes prn doses BID, takes 100mg nightly) History: Past Psychiatric History: Previous psychiatric treatment and medication trials: Lexapro - stopped long ago Zyprexa - stopped while inpt at [facility] (and dx of delirium felt more likely than psychosis), but restarted by PCP; feels it helps her mood swings Lamotrigine - stopped while inpt at [facility] (and dx of delirium felt more likely than psychosis or BPAD) Wellbutrin - stopped during admission to [facility] Previous psychiatric hospitalizations: [facility] 03/28/16 - 04/01/16 [facility] Previous diagnoses: Depression, ELIANA Previous suicide attempts: None Substance Abuse History: Use of Alcohol: Denies. Use of Caffeine: 2 cups per day Tobacco use: Not smoking. Denies other illicit drug use. Trauma: [...] disorder) ??? GERD (gastroesophageal reflux disease) ??? Headache ??? Hypertension ??? Metabolic acidosis ??? Psoriasis ??? Psoriatic arthritis ??? Psychosis ??? TBI (traumatic brain injury) Sep ??? Total body pain Past Surgical History: Procedure Laterality Date ??? CERVIX SURGERY ??? CHOLECYSTECTOMY ??? OVARIAN CYST REMOVAL right ??? PRO COLONOSCOPY, BIOPSY N/A 02/11/2016 COLONOSCOPY FLEXIBLE, WITH BX performed by David Hardy MD at [facility] ??? PRO UPPER GI ENDOSCOPY, BIOPSY N/A 02/11/2016 UPPER GASTROINTESTINAL ENDOSCOPY,WITH BIOPSY SINGLE OR MULTIPLE performed by David Hardy MD at [facility] ??? TUBAL LIGATION (Not in a hospital admission) Allergies Allergen Reactions ??? Pollen Extracts Social History Substance Use Topics ??? Smoking status: Former Smoker Packs/day: 1.00 Years: 15.00 Types: Cigarettes Quit date: 12/08/2002 ??? Smokeless tobacco: Never Used Comment: [...] movements Speech: Normal rate, rhythm, prosody Mood: iffy on the burger [ate a burger before appt], but other than that fine Affect: Full, mood-congruent Thought Process: Linear, goal-directed Thought Content: Denies SI/HI. No AVH. Sensorium: person, place, time/date and situation Cognition: grossly intact Insight: fair Judgment: fair Assessment - Diagnosis - Goals: 45yo F hx depression, ELIANA presents for follow up. Pt stable on current regimen, with both depressionand anxiety under good control. She is further tolerating the slow wean of the klonopin, but is veryafraid of a reemergence of her dissociative episodes if we go below 2mg daily. We discussed the possibility that her dissociative episodes, which to date do not have a clear underlying etiology, may beattributable to a type of excited catatonia, which would help explain the positive response to benzos and the worsening off of them. Will continue the klonopin wean until we reach 2mg daily total, thenhalt the wean. Will otherwise maintain same med regimen. Treatment Plan/Recommendations: - Quetiapine 12.5mg BID prn anxiety - Quetiapine 50-100mg QHS - Continue duloxetine - Continue klonopin at current dose. With next refill will continue taper of coming down by 0.25mg Qmonth. - Pt encouraged to take a dose of klonopin if dissociative episode recurs and to report on its efficacy to shed further light on whether what we are seeing is a form of catatonia - RTC soonest available appt Review with patient: Treatment plan reviewed with the patient. Medication risks/benefit reviewed with the patient Debra Munguia MD Jayla Amaya MD - 01/26/2017 3:00 PM EDT PSYCHIATRY TEACHING PHYSICIAN INVOLVEMENT Location: Adult [facility]ication Clinic, [address] Attending Physician: Jayla Amaya MD Resident [...] and anxiety, with h/o dissociative episodes. No episodes of bizarre behavior in many months. Feels that she cannot function on less than Klonopin 2mg. We discussed whether the episodes she has could be catatoniaand perhaps that's why benzodiazepines have been protective against them. Will continue very gradualtaper to Klonopin 2mg - she feels she can do well on that dose. No SI or HI. No substance abuse. . JAYLA AMAYA MD documented in this encounter Plan of Treatment Upcoming Encounters Date Type Specialty Care Team Description 04/14/2022 Office Visit Neurology Cameron Alves MD [facility] [address] [place], [place] [address] (Wo rk) documented as of this encounter Visit Diagnoses Diagnosis Depression, unspecified depression type Anxiety Anxiety state, unspecified documented in this encounter Care Teams Margin Trimmer Relationship Specialty Start Date End Date Lolis Moss MD PCP - General General Internal Medicine 04/15/16 [address] [facility] [address] [place] [address] documented as of this encounter
--- OUTSIDE RECORDS SUMMARY | 2022-03-18 11:34 | XMS_ITS | Encounter Summary ---
:1970 Author Organization [facility] [place] [address] Care Team Providers Name Role Phone Lolis Moss MD Primary Care Provider Encounter Details Date Type Department Care Team Description 12/08/2016 Orders Only Psychiatry and Behavioral Silver Debra ortiz [facility] [place] [address] [place] [address] [phone] Social History Tobacco Use Types Packs/Day Years [...] [facility] [address] [place] [address] (Wo rk) documented as of this encounter Visit Diagnoses Not on filedocumented in this encounter Care Teams Silk Washing Machine Operator Relationship Specialty Start Date End Date Lolis Moss MD PCP - General General Internal Medicine 04/15/[address] [facility] [address] [facility] [place] [address] documented as of this encounter
--- OUTSIDE RECORDS SUMMARY | 2022-03-18 11:34 | XMS_ITS | Encounter Summary ---
:1970 Author Organization [facility] [place] [address] Care Team Providers Name Role Phone Lolis Moss MD Primary Care Provider Encounter Details Date Type Department Care Team Description 03/08/2017 Office Visit Psychiatry and Debra Munguia n, unspecified depression type; Behavioral Health at , Anxiety [facility] [address] [place], [place] [phone] (Work) [phone] Social History Tobacco Use Types Packs/Day Years [...] Sign Reading Time Taken Comments Blood Pressure 133/87 03/08/2017 9:48 AM EDT Pulse 84 03/08/2017 9:48 AM EDT Temperature - - Respiratory Rate - - Oxygen Saturation - - Inhaled Oxygen Concentration - - Weight 72.1 kg (159 lb) 03/08/2017 9:48 AM EDT Height 160.7 cm (5' 3.25) 03/08/2017 9:48 AM EDT Body Mass Index 27.94 03/08/2017 9:48 AM EDT documented in this encounter Patient Instructions Patient InstructionsSilDebra jones MD - 03/08/2017 10:00 AM EDT In case of emergency, please go to your closest Emergency Department or call 911. Alternatively, if in acute crisis or are feeling unsafe, you can call the [facility] crisis number [phone]. You may also contact the [facility] crisis line at [phone] if you reside locally in [place]. You may contact [facility] crisis line at [phone] if you live locally in [place]. We will commence a very slow wean of the klonopin. Please take it according to the following schedule: 2 tablets (1 mg) twice a day, and 1.75 tablets (0.875mg) once per day. Please take the higher dose (1mg) during those times when you experience the greatest anxiety. documented in this encounter Progress Notes Debra Munguia MD - 03/08/2017 10:00 AM EDT Outpatient Psychiatry Follow Up 03/08/2017 Lisseth Boone,a 46 y.o. female, for medication f/u. Duration: Of note, pt sent an email on 03/02, prior to today's visit, reporting that she had inadvertently beentaking Klonopin 3mg total daily rather than the prescribed 2.5mg daily total. It was agreed that pt would remain on the 1mg tid dosing of klonopin until today's appt. Pt and , who accompanies her, report currently doing well overall. Pt expresses deep anxiety,however, at the prospect of reducing her klonopin to a level that induces similar episodes to what she's experienced in the past. Despite the slow weaning schedule pursued in the past, pt describes hersx as withdrawal, consisting of at first flu-like sx, sweating, chills, body aches, intense anxiety, tremor, and then progressing to delirium with psychosis and cognitive issues. . She last experienced this when dose klonopin dropped below 2.5mg daily. Continues to smoke intermittent smoking, though would like to quit and is also wearing patch. Mood of late decent. Sleep okay, though sometimes broken due to dog. +daytime fatigue, though attributes to active lifestyle. Denies SI/HI. No AVH. Has been enjoying her summer; very active with her daughter and her friends. Current meds: Klonopin 1mg TID, 3mg daily Cymbalta 60mg BID Seroquel 12.5mg BID prn, 100mg QHS (prn doses BID) History (from intake, updated where appropriate): Past Psychiatric History: Previous psychiatric treatment and medication trials: Lexapro - stopped long ago Zyprexa - stopped while inpt [facility] (and dx of delirium felt more likely than psychosis), but restarted by PCP; feels it helps her mood swings Lamotrigine - stopped while inpt at [facility] (and dx of delirium felt more likely than psychosis or BPAD) Wellbutrin - [facility] Previous psychiatric hospitalizations: [facility] 03/28/[facility] - 04/01/16 [facility] Previous diagnoses: Depression, ELIANA Previous suicide attempts: [...] [employer] x[employer]yrs. Has qualified for disability. Spending summer keeping daughter and herself active. Patient Active Problem List Diagnosis Date Noted [...] BX performed by David Hardy MD at [facility] ??? PRO UPPER GI ENDOSCOPY, BIOPSY N/A 02/11/2016 UPPER GASTROINTESTINAL ENDOSCOPY,WITH BIOPSY SINGLE OR MULTIPLE performed by David Hardy MD at [facility] ??? TUBAL LIGATION (Not in [...] movements Speech: Normal rate, rhythm, prosody Mood: stable Affect: Full, mood-congruent Thought Process: Linear, goal-directed Thought Content: Denies SI/HI. No AVH. Sensorium: person, place, time/date and situation Cognition: grossly intact Insight: fair Judgment: fair Assessment - Diagnosis - Goals: 45yo F hx depression, ELIANA presents for follow up. Pt stable on current regimen, with both depressionand anxiety under good control. She and her express profound fear, however, at the prospect of lowering her dose of klonopin by too much. The description of her sx on the wean do sound convincing for benzo withdrawal (tremors, anxiety, perceptual disturbances, psychosis), despite the very slowpace of the wean. One possibility is that after 14 yrs of being on benzos, the pt requires a unusually slow taper to wean off safely. As posited during previous visits, we are also considering the possibility that pt's episodes of acute deterioration represent catatonia, thereby accounting for the good response to benzos. Given the adverse effects associated with fpc benzo use, the pt was amenable to re-initiating the wean, particularly as she has done well at a lower dose than what she is currently taking. We agreed to a wean of decreasing klonopin by 0.125 mg per month. To obtain some diagnostic clarity, pt would further benefit from Psychiatric Testing, which she believes she may have had at [facility]. Pt signed NGOC for records from [place]. If such testing was not already performed, will look into other possibilities for testing locations (ex. [facility]). Treatment Plan/Recommendations: - Quetiapine 12.5mg BID prn anxiety - Quetiapine 100mg QHS - Continue duloxetine - Klonopin wean: Reduce dose from 3mg daily total to 2.875mg daily total (1mg BID and 0.875mg daily)[id number]; thereafter reduce by 0.125mg monthly - RTC soonest available appt - psych testing - obtain testing results from [place] (if testing done there), otherwise look into other testing locations, like [facility] Review with patient: Treatment plan reviewed with the patient. Medication risks/benefit reviewed with the patient Debra Munguia MD Jayla Amaya MD - 03/08/2017 10:00 AM EDT PSYCHIATRY TEACHING PHYSICIAN INVOLVEMENT Location: Adult Psychiatry Medication Clinic, [facility] Attending Physician: Jayla Amaya MD Resident [...] depression and anxiety, with h/o dissociative episodes. Struggled with the taper and notes she accidentally resumed 3mg Klonopin per day. Feels she gets bad withdrawal plus recurrence of psychotic episodes with taper. Discussed slowing taper further by only 0.125mg a month. Would recommend psych testing given ? Of catatonia in these episodes and worsening symptoms off benzos. Mom had a h/o psychosis and unclear dx. No SIor HI. No substance abuse. On disability currently until meds get stabilized. . JAYLA AMAYA MD documented in this encounter Plan of Treatment Upcoming Encounters Date Type Specialty Care Team Description 04/14/2022 Office Visit Neurology Cameron Alves MD [facility] [address] [place] [address] (Wo rk) documented as of this encounter Visit Diagnoses Diagnosis Depression, unspecified depression type Anxiety Anxiety state, unspecified documented in this encounter Care Teams Shipping Processor Relationship Specialty Start Date End Date Lolis Moss MD PCP - General General Internal Medicine 04/15/16 0 [facility] [address] [place] [address] documented as of this encounter
--- OUTSIDE RECORDS SUMMARY | 2022-03-18 11:34 | XMS_ITS | Encounter Summary ---
:1970 Author Organization [facility] [place] [address] Care Team Providers Name Role Phone Lolis Moss MD Primary Care Provider Reason for Visit Reason Onset Date Comments Triage 01/21/2017 Encounter Details Date Type Department Care Team Description 01/21/2017 Telephone Internal Medicine at [facility] Daphne Norman Triage [address] [place] [address] Social History Tobacco Use Types Packs/Day [...] this encounter Miscellaneous Notes Telephone Encounter - Jerica Mitchell RN - 01/21/2017 12:49 PM EDT Resolved in [facility] message Telephone Encounter - Daphne Norman - 01/21/2017 12:24 PM EDT Message: Patient is calling asking to speak with a nurse in regards to side effects to the antibiotic doxycycline and the side effects of it. Please call. Caller and relationship (if other than patient-full name): SElf Best time to call back: any Ok to leave a message: [y] Ok to send my- message: [n] Offered Appointment: n Nurse contacted via: Message: x Call: Pager: documented in this encounter Plan of Treatment Upcoming Encounters Date Type Specialty Care Team Description 04/14/2022 Office Visit Neurology Cameron Alves MD [facility] [place], [place] [address] (Wo rk) documented as of this encounter Visit Diagnoses Not on filedocumented in this encounter Care Teams Leather Sponger Relationship Specialty Start Date End Date Lolis Moss MD PCP - General General Internal Medicine 04/15/16 [address] [facility] [address] [facility] [place] [address] documented as of this encounter
--- OUTSIDE RECORDS SUMMARY | 2022-03-18 11:34 | XMS_ITS | Encounter Summary ---
:1970 Author Organization [facility] [place] [address] Care Team Providers Name Role Phone Lolis Moss MD Primary Care Provider Encounter Details Date Type Department Care Team Description 11/23/2016 Orders Only Psychiatry Debra Munguia MD [facility] [place] [address] [place] [address] [phone] (Wo rk) Social History Tobacco Use Types [...] Alves MD [facility] [address] [place], [place] [address] (Wo rk) documented as of this encounter Visit Diagnoses Not on filedocumented in this encounter Care Teams Bindery Chief Relationship Specialty Start Date End Date Lolis Moss MD PCP - General General Internal Medicine 04/15/[address] [facility] [address] KARINA SALTER [facility] [place] [place] [address] documented as of this encounter
--- OUTSIDE RECORDS SUMMARY | 2022-03-18 11:34 | XMS_ITS | Encounter Summary ---
:1970 Author Organization [facility] [place] [address] Care Team Providers Name Role Phone Lolis Moss MD Primary Care Provider Encounter Details Date Type Department Care Team Description 10/26/2016 Telephone Psychiatry Debra Munguia MD [facility] [place] [address] [place], [place] [id number] [phone] (Wo rk) Social History Tobacco Use Types [...] Telephone Encounter - Debra Munguia MD - 10/26/2016 10:22 AM EDT Called pt to inform her that requested refill had been sent to pharmacy. Reports doing well, feelingsafe. Plans to f/u in clinic on 11/03. documented in this encounter Plan of Treatment Upcoming Encounters Date Type Specialty Care Team Description 04/14/2022 Office Visit Neurology Cameron Alves MD [facility] [place], [place] [address] (Wo rk) documented as of this encounter Visit Diagnoses Not on filedocumented in this encounter Care Teams Captain Room Service Relationship Specialty Start Date End Date Lolis Moss MD PCP - General General Internal Medicine 04/15/16 [address] [facility] [address] [facility] [place] [address] documented as of this encounter
--- OUTSIDE RECORDS SUMMARY | 2022-03-18 11:34 | XMS_ITS | Encounter Summary ---
:1970 Author Organization [facility] [place] [address] Care Team Providers Name Role Phone Lolis Moss MD Primary Care Provider Encounter Details Date Type Department Care Team Description 07/29/2016 Telephone Psychiatry and Behavioral Debra Gomez MD [facility] [place] [id number] [place] [phone] Social History Tobacco Use Types Packs/Day Years [...] Telephone Encounter - Debra Munguia MD - 07/29/2016 2:33 PM EST Opened in error documented in this encounter Plan of Treatment Upcoming Encounters Date Type Specialty Care Team Description 04/14/2022 Office Visit Neurology Cameron Alves MD [facility] [place] [address] (Wo rk) documented as of this encounter Visit Diagnoses Not on filedocumented in this encounter Care Teams Lap Winder Relationship Specialty Start Date End Date Lolis Moss MD PCP - General General Internal Medicine 04/15/[address] [facility] [address] [place] [place] [address] documented as of this encounter
--- OUTSIDE RECORDS SUMMARY | 2022-03-18 11:34 | XMS_ITS | Encounter Summary ---
:1970 Author Organization [facility] [place] [address] Care Team Providers Name Role Phone Lolis Moss MD Primary Care Provider Reason for Visit Reason Onset Date Comments Questions 01/26/2017 Encounter Details Date Type Department Care Team Description 01/26/2017 Tele[address] Medicine at [facility] Ruth Mcclain Questions [address] [place] [address] Social History Tobacco Use Types Packs/Day [...] Telephone Encounter - Jerica Mitchell RN - 01/26/2017 12:48 PM EDT Returned call to Patient - identified by name and Patient has concerns with regards to Abx. She was given an Rx for doxy which she has not used d/t diarrhea Currently diarrhea is controlled however Patient is concerned the Doxy will aggravate and worsen thediarrhea Questions if she can be prescribed a different Abx Advised that her Lyme test was negative and with current concerns of diarrhea it would not be of benefit to pursue a different Abx Question if she has any current / ongoing s/sx of concern for Lyme - states she still has a rash at the site of the bite. Advised that we should re-evaluate her in clinic Patient Declines Appointment this week - prefers to wait until the end of next week. Appointment schedule for 02/05/17 Telephone Encounter - Ruth Mcclain - 01/26/2017 12:39 PM EDT Patient did not feel well over the weekend but she is wondering if there is something she can take other than the Doxycycline? She still hasnt started it yet and doesn't want to when she is already having diarrhea and not feeling well. Please call [phone], if pt does not answer it is okay to leave a message. documented in this encounter Plan of Treatment Upcoming Encounters Date Type Specialty Care Team Description 04/14/2022 Office Visit Neurology Cameron Alves MD [facility] [place], [place] [address] (Wo rk) documented as of this encounter Visit Diagnoses Not on filedocumented in this encounter Care Teams Manager Money Relationship Specialty Start Date End Date Lolis Moss MD PCP - General General Internal Medicine 04/15/16 [address] [facility] [address] [place] [place] [address] documented as of this encounter
--- OUTSIDE RECORDS SUMMARY | 2022-03-18 11:34 | XMS_ITS | Encounter Summary ---
:1970 Author Organization [place] [address] Care Team Providers Name Role Phone Lolis Cobos MD Primary Care Provider Reason for Visit Reason Onset Date Comments Medication Refill 09/04/2016 Encounter Details Date Type Department Care Team Description 09/07/2016 Refill Internal Medicine at [facility] Fay Rios MA [address] [place] [address] Social History Tobacco Use Types Packs/Day [...] this encounter Miscellaneous Notes Telephone Encounter - Fay Rios MA - 09/07/2016 11:51 AM EST From: Lisseth Boone To: Lolis Cobos MD Sent: 09/04/2016 2:18 PM EST Subject: Medication Renewal Request Original authorizing provider: MD Lisseth BILLINGSLEY would like a refill of the following medications: DULoxetine (CYMBALTA) 60 mg Capsule, Delayed Release(E.C.) [LOLIS COBOS MD] Preferred pharmacy: [facility] [address] [place] [address] Comment: This is due on 09/10/16 and I have no refills. I use the the [facility] in [place]. documented in this encounter Plan of Treatment Upcoming Encounters Date Type Specialty Care Team Description 04/14/2022 Office Visit Neurology Cameron Alves MD [facility] er [place], [place] [address] (Wo rk) documented as of this encounter Visit Diagnoses Not on filedocumented in this encounter Care Teams Documentation Engineer Relationship Specialty Start Date End Date Lolis Cobos MD PCP - General General Internal Medicine 04/15/16 0 [facility] [address] KARINA [place] [address] documented as of this encounter
--- OUTSIDE RECORDS SUMMARY | 2022-03-18 11:34 | XMS_ITS | Encounter Summary ---
:1970 Author Organization [facility] [place] [address] Care Team Providers Name Role Phone Lolis Moss MD Primary Care Provider Encounter Details Date Type Department Care Team Description 03/15/2017 Telephone Neurology at [facility] Cameron Alves MD [facility] [place] [address] [place], [place] [id number] [phone] (Wo rk) Social History Tobacco Use Types [...] Encounter - Natalee March RN - 03/17/2017 9:14 AM EDT Application for window tinting completed and mailed to patient. Telephone Encounter - Natalee March RN - 03/15/2017 10:19 AM EDT Call made to patient. Voice message left asking that patient return my call to discuss her paperworkfor window tinting. documented in this encounter Plan of Treatment Upcoming Encounters Date Type Specialty Care Team Description 04/14/2022 Office Visit Neurology Cameron Alves MD [facility] er [place], [place] [address] (Wo rk) documented as of this encounter Visit Diagnoses Not on filedocumented in this encounter Care Teams Powerhouse Mechanic Helper Relationship Specialty Start Date End Date Lolis Moss MD PCP - General General Internal Medicine 04/15/16 [address] [facility] [address] [place] [address] documented as of this encounter
--- OUTSIDE RECORDS SUMMARY | 2022-03-18 11:34 | XMS_ITS | Encounter Summary ---
:1970 Author Organization [facility] [place] [address] Care Team Providers Name Role Phone Lolis Moss MD Primary Care Provider Encounter Details Date Type Department Care Team Description 01/21/2017 Orders Only Psychiatry and Behavioral Silver Debra ortiz MD [facility] at [facility] [place] [address] [place] [address] [phone] Social History Tobacco Use Types Packs/Day Years [...] MD [facility] [address] [place] [address] (Wo rk) documented as of this encounter Visit Diagnoses Not on filedocumented in this encounter Care Teams Ballistic Expert Relationship Specialty Start Date End Date Lolis Moss MD PCP - General General Internal Medicine 04/15/16 0 [facility] [address] KARINA [facility] [place] [address] documented as of this encounter
--- OUTSIDE RECORDS SUMMARY | 2022-03-18 11:34 | XMS_ITS | Encounter Summary ---
:1970 Author Organization [facility] [place] [address] Care Team Providers Name Role Phone Lolis Moss MD Primary Care Provider Reason for Visit Reason Comments Follow-up headaches are better Encounter Details Date Type Department Care Team Description 03/26/2017 Office Visit Internal Medicine at Lolis Moss deficiency anemia, unspecified iron deficiency anemia type; [facility] Depression, unspecified depression type [address] [place] [address] [facility] [phone] PRIMARY CARE [place], [place] [address] Social History Tobacco Use Types [...] Sign Reading Time Taken Comments Blood Pressure 113/74 03/26/2017 2:18 PM EDT Pulse 83 03/26/2017 2:18 PM EDT Temperature 36.5 ??C (97.7 ??F) 03/26/2017 2:18 PM EDT Respiratory Rate 16 03/26/2017 2:18 PM EDT Oxygen Saturation 99% 03/26/2017 2:18 PM EDT Inhaled Oxygen Concentration - - Weight 74.8 kg (164 lb 14.4 oz) 03/26/2017 2:18 PM EDT Height 160.7 cm (5' 3.27) 03/26/2017 2:18 PM EDT Body Mass Index 28.96 03/26/2017 2:18 PM EDT documented in this encounter Progress Notes Lolis Moss MD - 03/26/2017 2:30 PM EDT Follow up med problems Has been working on klonopin taper--has been difficult, when she gets below 2.5 has had trouble When ever she quits smoking she needs to move more (bowels) When she quits has to take laxative, and water and tea Did not finish the doxycycline for possible lyme Took for about 10 days But stomach got better when she stopped No new funny rash, has a scar No fevers Same muscle and joint aches [place] like she was going to have a spell--when the klonopin down to 2.25mg Was able to use hurmor and increased the klonopin Cycles have been somewhat irregular Mom may have have early menopause Mood doing ok Likes the summer Has been doing a little traveling and activites with family Daughter will start high school this fall, she wants that to be set u 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 brigitte will try the iron qod, because it bothers stomach, Hgb has come up. 2. She keeps working on the smoking 3. No symptoms for lyme, and likely received adequate treatment. 4. Do not know about the IUD or if it could be related to headaches so long after the fact. She doesnot recall if they were hormonal or not documented in this encounter Plan of Treatment Upcoming Encounters Date Type Specialty Care Team Description 04/14/2022 Office Visit Neurology Cameron Alves MD [facility] [place] [address] [place] [address] (Wo rk) documented as of this encounter Visit Diagnoses Diagnosis Iron deficiency anemia, unspecified iron deficiency anemia type Depression, unspecified depression type documented in this encounter Care Teams Recycling Sorter Relationship Specialty Start Date End Date Lolis Moss MD PCP - General General Internal Medicine 04/15/1602/12/ [address] [facility] [address] [place] [address] documented as of this encounter
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
--- OUTSIDE RECORDS SUMMARY | 2022-03-18 11:34 | XMS_ITS | Encounter Summary ---
:1970 Author Organization [facility] [address] Care Team Providers Name Role Phone Lolis Moss MD Primary Care Provider Reason for Visit Reason Onset Date Comments Medication Refill 07/30/2016 Encounter Details Date Type Department Care Team Description 07/30/2016 Refill Psychiatry and Behavioral Silver Debra ortiz MD [facility] [place] [address] [place] [address] [phone] Social History Tobacco Use Types Packs/Day Years [...] 04/14/2022 Office Visit Neurology Cameron Alves MD [facility] [address] [place] [address] (Wo rk) documented as of this encounter Visit Diagnoses Not on filedocumented in this encounter Care Teams Thread Weaver Relationship Specialty Start Date End Date Lolis Moss MD PCP - General General Internal Medicine 04/15/16 [address] [facility] [address] KARINA SALTER [facility] [place] [address] documented as of this encounter
--- OUTSIDE RECORDS SUMMARY | 2022-03-18 11:34 | XMS_ITS | Encounter Summary ---
:1970 Author Organization [facility] Address [facility] [place] [address] Care Team Providers Name Role Phone Lolis Moss MD Primary Care Provider Reason for Visit Reason Comments Follow-up 3 month Other bit by a tick, looks infecte d, left hip, sickness, menseis not reg. Medication Check refill and klonopin Encounter Details Date Type Department Care Team Description 01/13/2017 Office Visit Internal Medicine at [facility], unspecified fever cause; Louise Gimenez MD Headache, unspecified headache type; [address] [facility] Thrombocytosis; [place], [place] Depression, unspecified depression type; [id number] OZZIELUNA SALTER Migraine without aura and wi thout status migrainosus, not intractable [phone] PRIMARY CARE [place], [place] [address] Social History Tobacco Use Types [...] Sign Reading Time Taken Comments Blood Pressure 132/82 01/13/2017 1:44 PM EDT Pulse 79 01/13/2017 1:44 PM EDT Temperature 36.7 ??C (98.1 ??F) 01/13/2017 1:44 PM EDT Respiratory Rate 16 01/13/2017 1:44 PM EDT Oxygen Saturation 100% 01/13/2017 1:44 PM EDT Inhaled Oxygen Concentration - - Weight 72.8 kg (160 lb 9.6 oz) 01/13/2017 1:44 PM EDT Height 160.6 cm (5' 3.23) 01/13/2017 1:44 PM EDT Body Mass Index 28.24 01/13/2017 1:44 PM EDT documented in this encounter Progress Notes Lolis Moss MD - 01/13/2017 2:00 PM EDT Had a tick bite On her hip Was not engorged The head did not come out Became a red spot several cm wide about a week after the bite Has a cell phone picture, can not say it was not a ECM This was a month ago She is not sure what kind of a tick it was, but looking at pictures she thinks it was a deer tick For the last 1-2 weeks has been tired And sleeping a lot Congested--ears popping achy Runny nose May have had a fever (took some aleve) Taking some zyrtec D Last night had some nausea--no appetitie Went to [facility] in November Got a cold with traveling Has been sleeping a lot Mood is doing ok Things have been going well Did quit smoking Used the patches, has been off for a week Not much urge Psych has discussed to wean off the klonopin Which concernes her She is ok with tapering down to 2mg But worried that cutting down below 2mg will not work In the past when she has dropped below 2mg --she shakes and sweats and gets ill, gets a twiching, does not go away with time or get better with replacement Has dropped 0.25 once a month She has tried several times and always ends up back in the hospital on a higher dose Needs a refil on topomax Has been on the topomax for her migrane Was doing well with few headaches But had some around the trip to [place] Has been having 1-2 a week--does take some excedrine migrane with aleve and if needed the imitrex Having some intermittent mensual bleeding Has had a tubal Period is off For two month Not sure when Mom had menopause Some hot flashes PE BP 132/82 (BP Location (NBP): Left arm, Patient Position: Sitting, BP Cuff Sizes: Adult (25-34 cm)) Pulse 79 Temp 36.7 ??C (98.1 ??F) (Oral) Resp 16 Ht 160.6 cm (5' 3.23) Wt 72.8 kg (160 lb 9.6 oz) LMP 12/13/2016 (Approximate) SpO2 100% BMI 28.24 kg/m2 Looks tired Sclera white, lids red and swollen Nasal mucosa is dry Oral pharynx is normal No cervical adenopathy Lungs clear abd soft nontender no HSM nl bowel sounds A/P 1. I can not say she does not have lyme. Timing and symptoms would be consistent, other than the nonengorged tick. It has been a month since the bite--will do a lyme test but a neg would not be conclusive. She would prefer to treat. She feels she can cut back the carafate to twice a day while she is on the doxycycline 2. The irregular cycles started with her trip which was stressful, will see what happens over the next several. Has had a BTL so unlikely. Can ask an Aunt about family history of timing of menopause 3. Pleased with the smoking! Discussed ways to manage cravings. 4. I am ok doing a short refill on the topomax. She had to cancel her neurology appt because of her travel 5. Klonopin. She is quiet worried about tapering off. Has now been on for 13 years. The symptoms shedescribes sound more like withdrawal, but they do not respond to typical withdrawal symptoms. Not sure how I feel about prescribing if psychiatry is unwilling. Generally would not, but she has been very sick and has had a period of stability. Asked her to discuss again at her up coming appointment. documented in this encounter Plan of Treatment Upcoming Encounters Date Type Specialty Care Team Description 04/14/2022 Office Visit Neurology Cameron Alves MD [facility] er [address] [place], [facility]5 (Wo rk) documented as of this encounter Procedures Procedure Name Priority Date/Time Associated Diagnosis Comme nts LYME IGG & IGM Routine 01/13/2017 2:50 PM Fever, unspecified R esults for this ANTIBODY EDT fever cause procedure are i n the results section. FERRITIN Routine 01/13/2017 2:50 PM Thrombocytosis Results for this EDT procedure are i n the results section. documented in this encounter Results (ABNORMAL) Ferritin (01/13/2017 2:50 PM EDT) athologist Signature Ferritin 8 (L) 15 - 150 [facility] ng/mL [facility] Comment: Pediatric reference ranges not verified at [facility], interpret with caution. Reference ranges for females greater jarvis n 50 years of age approach values for men, i.e., 30-400 ng/mL. Specimen Anatomical Collection Method Collection Time Receive d Time (Source) Location / / Volume Laterality Blood specimen 01/13/2017 2:50 PM 017 6:38 (specimen) EDT PM EDT Resulting Agency Comment Spec In Lab Lolis Moss MD CHEMISTRY ORDERABLES Performing Organization Address City/[facility]/[place] [address] Lyme IgG & IgM Antibody (01/13/2017 2:50 PM EDT) athologist Signature Lyme Screening Neg Neg [facility] Specimen Anatomical Collection Method Collection Time Receive d Time (Source) Location / / Volume Laterality Blood specimen 01/13/2017 2:50 PM 017 8:57 (specimen) EDT AM EDT Resulting Agency Comment Spec In Lab Lolis Moss MD IMMUNOLOGY ORDERABLES Performing Organization Address City/[facility]/[place] [address] documented in this encounter Visit Diagnoses Diagnosis Fever, unspecified fever cause Headache, unspecified headache type Thrombocytosis Essential thrombocythemia Depression, unspecified depression type Migraine without aura and without status migrainosus, not intractable Migraine without aura, without mention o f intractable migraine without mention of status migrainosus documented in this encounter Care Teams Electric Blanket Wirer Relationship Specialty Start Date End Date Lolis Moss MD PCP - General General Internal Medicine 04/15/16 0 [facility] [place] [address] documented as of this encounter
--- OUTSIDE RECORDS SUMMARY | 2022-03-18 11:34 | XMS_ITS | Encounter Summary ---
:1970 Author Organization [place] [address] Care Team Providers Name Role Phone Lolis Moss MD Primary Care Provider Reason for Visit Reason Onset Date Comments Medication Refill 11/26/2016 Encounter Details Date Type Department Care Team Description 11/26/2016 [place] [facility] [place]ysi Gutiérrez [facility] sydnie [place] [address] Social History Tobacco Use Types Packs/Day [...] Miscellaneous Notes Telephone Encounter - Deysi Gutiérrez [facility] - 11/27/2016 8:23 AM EDT ----- Message from Rafa Ocampo APRN sent at 11/26/2016 3:40 PM EDT ----- Regarding: RE: Prior Authorization We can try the protonix ----- Message ----- From: Deysi Gutiérrez CMA Sent: 11/26/2016 2:28 PM To: Rafa Ocampo APRN Subject: Prior Authorization They Denied the esomeprazole because it is excluded from the plan. E=excluded SL=supply limit. The numbers are the drug tier. The patient already try Lansoprazole, omeprazole-bicarb, and she did pantoprazole in the hospital. I am not how effective it was for the patient. What would you like to do? Gastrointestinal: Acid Suppression Dexilant 3 SL Esomeprazole Capsule 1 E, SL Lansoprazole Capsule 1 E, SL Omeclamox-[place] 3 SL Omeprazole Capsule 1 Pantoprazole Tablet 1 Pylera 3 SL Rabeprazole Tablet 1 SL Ranitadine Syrup 1 Sucralfate Tablet 1 Telephone Encounter - Deysi Gutiérrez CMA - 11/26/2016 2:34 PM EDT Medication Prior Authorization 4L Gastroenterology / [place] [address] Subscriber Insurance: [employer] Physician: Rafa Ocampo Return Pharmacy: [facility] Medication Requested: esomeprazole Strength: 40 mg Frequency: BID Disp.: 60 Refills: 11 Currently taking: yes Diagnosis for this medication: Gerd ICD-10 code: k24.09 Prior medications trialed in this patient: Omeprazole, lansoprazol Medication: Outcome/Adverse Reactions: treatment failure Decision: denied medication excluded from plan Tracking number/Case number/Reference number: Effective date: Start: End: documented in this encounter Plan of Treatment Upcoming Encounters Date Type Specialty Care Team Description 04/14/2022 Office Visit Neurology Cameron Alves MD [facility] [place] [address] (Wo rk) documented as of this encounter Visit Diagnoses Not on filedocumented in this encounter Care Teams Budder Relationship Specialty Start Date End Date Lolis Moss MD PCP - General General Internal Medicine 04/15/16 [address] [facility] [address] KARINA SAL[place] [address] documented as of this encounter
--- OUTSIDE RECORDS SUMMARY | 2022-03-18 11:34 | XMS_ITS | Encounter Summary ---
:1970 Author Organization [facility] [place] [address] Care Team Providers Name Role Phone Lolis Moss MD Primary Care Provider Reason for Visit Reason Onset Date Comments Prior Authorization 11/23/2016 Nicotine Patch Encounter Details Date Type Department Care Team Description 11/23/2016 [place] Author[facility] CCMA (Nicotine Patch) [address] [place] [address] Social History Tobacco Use Types Packs/Day [...] Telephone Encounter - Natalee Eli CCMA - 11/23/2016 4:49 PM EDT Medication Prior Authorization for Primary [place] [address] Approve: X Start Date: 11/23/16 End Date: 11/23/17 Case/Reference #: [id number] Telephone Encounter - Natalee Eli CCMA - 11/23/2016 11:29 AM EDT Medication Prior Authorization for Primary Care [place] [address] Patient: Lisseth Boone Patient : 1970 Subscriber Insurance: [employer] Insurance Phone #: [phone] Sent via: Lazar[employer] [place]: [id number] Physician: Lolis Moss MD Return Medication Requested: Nicotine 24 hr patch Strength: 21mg/24hr Frequency:Place 1 patch onto the skin daily. See package instructions Disp.: 28 Refills: 1 Currently taking: no Diagnosis for this medication: Smoking cessation ICD-10 code: Z87.898 Prior medications trialed in this patient: documented in this encounter Plan of Treatment Upcoming Encounters Date Type Specialty Care Team Description 04/14/2022 Office Visit Neurology Cameron Alves MD [facility] er [place] [address] (Wo rk) documented as of this encounter Visit Diagnoses Not on filedocumented in this encounter Care Teams Liaison Officer Relationship Specialty Start Date End Date Lolis Moss MD PCP - General General Internal Medicine 04/15/[address] [facility] [address] [place] [address] documented as of this encounter
--- OUTSIDE RECORDS SUMMARY | 2022-03-18 11:34 | XMS_ITS | Encounter Summary ---
:1970 Author Organization [facility] [place] [address] Care Team Providers Name Role Phone Lolis Moss MD Primary Care Provider Encounter Details Date Type Department Care Team Description 11/02/2016 Telephone Psychiatry and Behavioral Debra Gomez MD [facility] at [place] [id number] [place] [phone] Social History Tobacco Use Types Packs/Day Years [...] Telephone Encounter - Debra Munguia MD - 11/02/2016 10:57 AM EDT Attempted to reach pt at [phone]. No answer. Left message. Awaiting callback. Telephone Encounter - Debra Munguia MD - 11/02/2016 10:57 AM EDT ----- Message from Haydee Gómez sent at 11/02/2016 9:29 AM EDT ----- Regarding: FW: Other Contact: ----- Message ----- From: Lisseth Boone Sent: 10/30/2016 6:39 PM To: Lilia Psych Nurse Subject: Other Dr. Munguia, For several reasons I need to see if we can do my appt via phone conference or reschedule it. If youcan call Wednesday or Wednesday I can explain. Everything is fine and I'm feeling safe. It's due to logistics and time constraints. Please call when you can. Sincerely, Lisseth Boone documented in this encounter Plan of Treatment Upcoming Encounters Date Type Specialty Care Team Description 04/14/2022 Office Visit Neurology Cameron Alves MD [facility] [place] [address] (Wo rk) documented as of this encounter Visit Diagnoses Not on filedocumented in this encounter Care Teams Drop Crew Laborer Relationship Specialty Start Date End Date Lolis Moss MD PCP - General General Internal Medicine 04/15/16 0 [facility] DR KARINA [place] [address] documented as of this encounter
--- OUTSIDE RECORDS SUMMARY | 2022-03-18 11:34 | XMS_ITS | Encounter Summary ---
:1970 Author Organization [facility] [place] [address] Care Team Providers Name Role Phone Lolis Moss MD Primary Care Provider Reason for Visit Reason Onset Date Comments Results 09/29/2016 Encounter Details Date Type Department Care Team Description 09/29/2016 Telephone [place] [facility] [place] [address] Social History Tobacco Use Types Packs/Day [...] this encounter Miscellaneous Notes Telephone Encounter - Doni Dominguez RN - 09/29/2016 12:05 PM EST ----- Message from Rafa Ocampo APRN sent at 09/27/2016 8:43 PM EST ----- Please let pt know overall labs look good. Platelets slightly elevated but better. Will let pcp manage. Have pt f/u with pcp Benitez Fax labs to pcp ----- Message ----- From: Bhanu, Lab In [facility] Sent: 09/21/2016 4:04 PM To: Rafa Ocampo APRN Left patient message to call to discuss results. Sent myD-H message. documented in this encounter Plan of Treatment Upcoming Encounters Date Type Specialty Care Team Description 04/14/2022 Office Visit Neurology Cameron Alves MD [facility] [place] [address] (Wo rk) documented as of this encounter Visit Diagnoses Not on filedocumented in this encounter Care Teams Packer Inspector Relationship Specialty Start Date End Date Lolis Moss MD PCP - General General Internal Medicine 04/15/[address] [facility] [address] KARINA [place] [address] documented as of this encounter
--- OUTSIDE RECORDS SUMMARY | 2022-03-18 11:34 | XMS_ITS | Encounter Summary ---
:1970 Author Organization [facility] [place] [address] Care Team Providers Name Role Phone Lolis Moss MD Primary Care Provider Encounter Details Date Type Department Care Team Description 09/21/2016 Office Visit Neurology at [facility] Cameron Alves, Migraine without aura [facility] MD and without status Drive [facility] migrainosus, [place], [place] [address] [place] [address] [phone] Social History Tobacco Use Types Packs/Day Years [...] Sign Reading Time Taken Comments Blood Pressure 141/83 09/21/2016 2:57 PM EST Pulse 83 09/21/2016 2:57 PM EST Temperature - - Respiratory Rate - - Oxygen Saturation - - Inhaled Oxygen Concentration - - Weight 72.4 kg (159 lb 9.6 oz) 09/21/2016 2:57 PM EST Height 158.8 cm (5' 2.5) 09/21/2016 2:57 PM EST report ed Body Mass Index 28.73 09/21/2016 2:57 PM EST documented in this encounter Patient Instructions Patient InstructionsCameron Alves MD - 09/21/2016 3:00 PM EST 09-21-16 When you get home, call [employer] to set up your account for your Treximet. Use Treximet instead of sumatriptan pills. Maximum Treximet is two pills per day. Please go to uniRow, and in the left column click on CoQ10. Then scroll down (and it may be on the 2d page) to the 400 mg dose, and order that. Take one every morning. See me in 3-4 months to go over this. Cameron Alves MD documented in this encounter Progress Notes Cameron Alves MD - 09/21/2016 3:00 PM EST Neurology Headache Clinic Follow-up Visit 09-21-16 Last Visit: 04/08/16 Pain today: 0 Interval Headache Hx: Pt with psychosis, bipolar disorder, a chronic pain syndrome and chronic migraine. She has had at least 36 medication trials. In Mar, I placed her on mag, B2, TPM, and candesartan, with prn metoclopramide, promethazine suppository, and eden SC. She had an emergency psychiatric admission 08/26/16 for another episode of psychosis, so 3 weeks ago. She states she is getting HAs weekly and takes sumatriptan 100 mg. Since March, frequency is down from 2/week to one/week, duration is down from 2 days to one day, and intensity is better, less vomiting episodes. When she takes sumatriptan 100 mg, she gets pain free in 60% of attacks, time to pain freedom one hour. She does not get recurrence. On the other times, she gest headache relief but not pain free, and is left with a ghost migraine. New Health Issues: see HPI New Family History: no Past Medical History Diagnosis Date ??? Anxiety [...] BX performed by David Hardy MD at [facility] ENDOSCOPY ??? Pro upper gi endoscopy, biopsy N/A 02/11/2016 UPPER GASTROINTESTINAL ENDOSCOPY,WITH BIOPSY SINGLE OR MULTIPLE performed by David Hardy MD at [facility] END[facility] ??? Ovarian cyst removal right Studies to Review: no Current Medications: Outpatient Prescriptions Marked as Taking for the 09/21/16 encounter (Office Visit) with Cameron Alves MD Medication Sig Dispense Refill ??? diphenhydrAMINE (BENADRYL) 25 mg Capsule Take 25 mg by mouth every 6 hours as needed for Itching. Reported on 09/21/2016 ??? DULoxetine (CYMBALTA) 60 mg Capsule, Delayed Release(E.C.) Take 1 capsule by mouth 2 times daily. (Patient taking differently: Take 60 mg by mouth 3 times daily.) 180 tablet 0 ??? clonazePAM (KLONOPIN) 1 mg Tablet Take 1 tablet by mouth 3 times daily. 90 tablet 0 ??? QUEtiapine (SEROQUEL) 50 mg Tablet Take 1 to 2 tablets at night for sleep. 60 tablet 1 ??? QUEtiapine (SEROQUEL) 25 mg Tablet Take 0.5 tablets by mouth 2 times daily as needed (for anxiety). 30 tablet 1 ??? baclofen (LIORESAL) 20 mg Tablet Take 1 tablet by mouth 3 times daily. 90 tablet 3 ??? fexofenadine-pseudoephedrine (COREY-D 24) 180-240 mg Tablet Sustained Release 24 hr Take 1 tablet by mouth daily. 1 tablet 0 ??? candesartan (ATACAND) 16 mg [...] 12 Allergies Allergen Reactions ??? Pollen Extracts Physical Examination: VS BP 141/83 (BP Location (NBP): Left arm, Patient Position: Sitting, BP Cuff Sizes: Adult (25-34 cm)) Pulse 83 Ht 158.8 cm (5' 2.5) Comment: reported Wt 72.4 kg (159 lb 9.6 oz) LMP 09/07/2016 (WithinWeeks) BMI 28.73 kg/m2 General: Normal skin, musculoskeletal Neurological: Normal mentation, coordination, gait Impression: 1. Intractable chronic migraine without aura and without status migrainosus She is more than 50% better in terms of migraine frequency, severity, and duration, but the sumatriptan 100 mg is not getting her pain free 40% of the time. So we will try Treximet, & add coQ10 400mg to the B2, mag, and candesartan. Plan/instructions to patient: When you get home, call [employer] to set up your account for your Treximet. Use Treximet instead of sumatriptan pills. Maximum Treximet is two pills per day. Please go to uniRow, and in the left column click on CoQ10. Then scroll down (and it may be on the 2d page) to the 400 mg dose, and order that. Take one every morning. See me in 3-4 months to go over this. I spent 40 minutes in this visit, with at least 30 devoted to patient counseling. Cameron Alves MD documented in this encounter Plan of Treatment Upcoming Encounters Date Type Specialty Care Team Description 04/14/2022 Office Visit Neurology Cameron Alves MD [facility] [address] [place], [place] [address] (Wo rk) documented as of this encounter Visit Diagnoses Diagnosis Migraine without aura and without status migrainosus, not intractable Migraine without aura, without mention o f intractable migraine without mention of status migrainosus documented in this encounter Care Teams Farm Agent Relationship Specialty Start Date End Date Lolis Moss MD PCP - General General Internal Medicine 04/15/[address] [facility] [address] [place] [place] [address] documented as of this encounter
--- OUTSIDE RECORDS SUMMARY | 2022-03-18 11:34 | XMS_ITS | Encounter Summary ---
:1970 Author Organization [facility] [address] Care Team Providers Name Role Phone Lolis Moss MD Primary Care Provider Encounter Details Date Type Department Care Team Description 02/19/2017 Telephone Psychiatry and Behavioral Debra Gomez MD Health at [place] [id number] [place] [phone] Social History Tobacco Use Types Packs/Day Years [...] Telephone Encounter - Debra Munguia MD - 02/19/2017 12:55 PM EDT Reached pt at [phone]. We discussed the new medication scheduling proposed in the email today (larger dose of klonopin at night, with same total daily dose). She reports that she is willing to trythis. We also agreed that if this proved insufficient and she felt that she needed additional 0.25mgper day before our appt, that she she would be able to take it up to once a day until our appt on 03/08. She unfortunately is not able to make the sooner appt offered. Pt verbalized understanding and agreement with plan. Agreed to reach out to crisis numbers or ED in case of emergency. documented in this encounter Plan of Treatment Upcoming Encounters Date Type Specialty Care Team Description 04/14/2022 Office Visit Neurology Cameron Alves MD [facility] er [place], [place] [address] (Wo rk) documented as of this encounter Visit Diagnoses Not on filedocumented in this encounter Care Teams Remotely Piloted Vehicle Controller Relationship Specialty Start Date End Date Lolis Moss MD PCP - General General Internal Medicine 04/15/[address] [facility] [address] KARINA [place] [address] documented as of this encounter
--- OUTSIDE RECORDS SUMMARY | 2022-03-18 11:34 | XMS_ITS | Encounter Summary ---
:1970 Author Organization [facility] [address] Care Team Providers Name Role Phone Lolis Moss MD Primary Care Provider Encounter Details Date Type Department Care Team Description 08/28/2016 Orders Only Psychiatry Debra Munguia MD [facility] [place] [address] [place] [address] [phone] (Wo rk) Social History Tobacco Use Types [...] Alves MD [facility] [address] [place] [address] (Wo rk) documented as of this encounter Visit Diagnoses Not on filedocumented in this encounter Care Teams Safety Intern Relationship Specialty Start Date End Date Lolis Moss MD PCP - General General Internal Medicine 04/15/[address] [facility] [address] [place] [address] documented as of this encounter
--- OUTSIDE RECORDS SUMMARY | 2022-03-18 11:34 | XMS_ITS | Encounter Summary ---
:1970 Author Organization [employer] [facility] [place] [address] Care Team Providers Name Role Phone Lolis Moss MD Primary Care Provider Encounter Details Date Type Department Care Team Description 07/31/2016 Orders Only Psychiatry and Behavioral Silver Debra ortiz MD [facility] at [facility] [place] [address] [place] [address] [phone] Social History Tobacco Use Types Packs/Day Years [...] Cameron Alves MD [facility] [address] [place], [place] [address] (Wo rk) documented as of this encounter Visit Diagnoses Not on filedocumented in this encounter Care Teams Systems Design Engineer Relationship Specialty Start Date End Date Lolis Moss MD PCP - General General Internal Medicine 04/15/[address] [facility] [address] KARINA SALTER [facility] [place] [id number] documented as of this encounter
--- OUTSIDE RECORDS SUMMARY | 2022-03-18 11:35 | XMS_ITS | Encounter Summary ---
:1970 [place] [address] Care Team Providers Name Role Phone Lolis Moss MD Primary Care Provider Reason for Visit Reason Onset Date Comments Medication Refill 04/16/2016 Encounter Details Date Type Department Care Team Description 04/16/2016 Refill Internal Medicine at [facility] org, Lolis Gimenez MD [facility] [address] [facility] [place] [address] [place] [address] [phone] (Wo rk) Social History Tobacco Use Types Packs/Day Years Used Date Former Smoker Cigarettes 0 15 Quit: 12/09/19 03 Smokeless Tobacco: Never Used Alcohol Use Standard Drinks/Week Comments No 0 (1 standard drink = 0.6 oz pure alcoho l) Sex Assigned at Date Recorded Not on file documented as of this encounter Miscellaneous Notes Telephone Encounter - Debra Contreras - 04/16/2016 3:47 PM EDT Message: The patient called asking for refill of cymbalta to the [facility] in [facility]. She only has enough for 3 days and will run out over the weekend. Caller and relationship (if other than patient-full name): patient Nurse contacted via: Message: yes Call: no Pager: no documented in this encounter Plan of Treatment Upcoming Encounters Date Type Specialty Care Team Description 04/14/2022 Office Visit Neurology Cameron Alves MD [facility] [place], [place] [address] (Wo rk) documented as of this encounter Visit Diagnoses Not on filedocumented in this encounter Care Teams Hammer Repairer Relationship Specialty Start Date End Date Lolis Moss MD PCP - General General Internal Medicine 04/15/[address] [facility] [address] KARINA [place] [address] documented as of this encounter
--- OUTSIDE RECORDS SUMMARY | 2022-03-18 11:35 | XMS_ITS | Encounter Summary ---
:1970 Author Organization [facility] [place] [address] Care Team Providers Name Role Phone Tarsha Williamson MD Primary Care Provider Reason for Visit Reason Onset Date Comments Prior Authorization 04/02/2016 Encounter Details Date Type Department Care Team Description 04/02/2016 Telephone Psychiatry and Denae Easton M D Prior Authorization Behavioral Health at [facility] [place] [address] [place] [address] [phone] (Wo rk) Social History Tobacco Use Types Packs/Day Years Used Date Former Smoker Cigarettes 0 15 Quit: 12/09/19 03 Smokeless Tobacco: Never Used Alcohol Use Standard Drinks/Week Comments No 0 (1 standard drink = 0.6 oz pure alcoho l) Sex Assigned at Date Recorded Not on file documented as of this encounter Miscellaneous Notes Telephone Encounter - Robby Mishra - 04/02/2016 8:48 AM EDT Auth Approved - Per Sanjay @ [facility] via phone call to [phone] (Call Reference: Sanjay, 8:37 AM EST, 04.02.2016), auth has been approved for the initial 3 days of the [facility] Admission starting on 04.01.2016, with review due on 04.03.2016. Per Sanjay, the Gas Line [employer] will call on 04.03.2016 for the Concurrent Review. Authorization Reference #: [id number]. documented in this encounter Plan of Treatment Upcoming Encounters Date Type Specialty Care Team Description 04/14/2022 Office Visit Neurology Cameron Alves MD [facility] [address] [place] [address] (Wo rk) documented as of this encounter Visit Diagnoses Not on filedocumented in this encounter Care Teams Hair Dryer Relationship Specialty Start Date End Date Tarsha Williamson MD PCP - General 10/21/13 04/02/[address] [place] [address] [place] [address] documented as of this encounter
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
--- OUTSIDE RECORDS SUMMARY | 2022-03-18 11:35 | XMS_ITS | Encounter Summary ---
:1970 Author Organization [facility] [place] [address] Care Team Providers Name Role Phone Lolis Moss MD Primary Care Provider Reason for Visit Reason Onset Date Comments Medication Refill 06/16/2016 Encounter Details Date Type Department Care Team Description 06/16/2016 Refill Internal Medicine at [facility] Ruth Fleming [address] [place] [address] Social History Tobacco Use Types Packs/Day [...] Telephone Encounter - Debra Munguia MD - 06/16/2016 2:59 PM EDT Closed in error. Called and asked that [facility] staff re-open refill encounter after finding out what meds pt needs refilled, which they did. Telephone Encounter - Ruth Fleming - 06/16/2016 8:12 AM EDT Pt needs refills of these sent to [facility] in [facility] please. documented in this encounter Plan of Treatment Upcoming Encounters Date Type Specialty Care Team Description 04/14/2022 Office Visit Neurology Cameron Alves MD [facility] er [place], [place] [address] (Wo rk) documented as of this encounter Visit Diagnoses Not on filedocumented in this encounter Care Teams Manager Front Office Relationship Specialty Start Date End Date Lolis Moss MD PCP - General General Internal Medicine 04/15/16 [address] [facility] [address] [place] [address] documented as of this encounter
--- OUTSIDE RECORDS SUMMARY | 2022-03-18 11:35 | XMS_ITS | Encounter Summary ---
:1970 Author Organization [facility] [place] [address] Care Team Providers Name Role Phone Lolis Moss MD Primary Care Provider Encounter Details Date Type Department Care Team Description 06/20/2016 Telephone Neurology at [facility] Garry Man MD [facility] [place] [address] NEUROLOGY DEPT [phone] [place], [place] [address] (Wo rk) Social History Tobacco [...] this encounter Miscellaneous Notes Telephone Encounter - Garry Man MD - 06/20/2016 11:34 PM EDT OSH ED calling. AMS, ?seizure, ?conversion disorder Patient presents to OSH ED for periods of minimal responsiveness, a little repetitive in her speech,rocking back and forth. +urinary incontinence, no tongue biting. She has recently had 5 or 6 of these, lasting hours. Happen when she is under stress. Currently under stress now. She had episode in ED, unresponsive, holding arm over her head not letting it fall over her face, eye lid fluttering. Normal reflexes, toes down. When physician was talking to the , she woke up, spoke (though was somewhat repetitive), thenwent back to sleep. I reviewed the patient's chart. She has a complex psychiatric history and work- up for seizures has been negative, including normal MRI and EEG. She also has a migraine history. Her presentation is not consistent with epilepsy. 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 Caller will continue to monitor the patient and will order additional advanced imaging. documented in this encounter Plan of Treatment Upcoming Encounters Date Type Specialty Care Team Description 04/14/2022 Office Visit Neurology Cameron Alves MD [facility] [address] [place] [address] (Wo rk) documented as of this encounter Visit Diagnoses Not on filedocumented in this encounter Care Teams Computer Engineering Professor Relationship Specialty Start Date End Date Lolis Moss MD PCP - General General Internal Medicine 04/15/16 [address] [facility] [address] [place] [address] documented as of this encounter
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
--- OUTSIDE RECORDS SUMMARY | 2022-03-18 11:35 | XMS_ITS | Encounter Summary ---
:1970 [address] [facility] [place] [address] Care Team Providers Name Role Phone Lolis Moss MD Primary Care Provider Encounter Details Date Type Department Care Team Description 07/13/2016 Telephone Neurology at [facility] Debra Munguia MD [facility] [place] [address] [place], [place] [id number] [phone] (Wo rk) Social History Tobacco Use Types [...] Telephone Encounter - Debra Munguia MD - 07/13/2016 2:19 PM EST Called pt to let her know rx for klonopin had been called in to [facility] in [place]. (Klonopin 1mg BID, disp 60, 1 refill). When called in rx, requested that pharmacy disregard faxed rx for same med. Telephone Encounter - Debra Munguia MD - 07/13/2016 2:18 PM EST ----- Message from January Pérez sent at 07/13/2016 1:04 PM EST ----- Regarding: please call [place] Patient is concerned about her klonopin prescription, she was hoping this would be called in but we normally mail them because it is a controlled substance. Patient is now worried about not working andgoing through DT's without, please call her, patient is very anxious. Best number is [phone], thank you. documented in this encounter Plan of Treatment Upcoming Encounters Date Type Specialty Care Team Description 04/14/2022 Office Visit Neurology Cameron Alves MD [facility] [place], [place] [address] (Wo rk) documented as of this encounter Visit Diagnoses Not on filedocumented in this encounter Care Teams Manager Animation Relationship Specialty Start Date End Date Lolis Moss MD PCP - General General Internal Medicine 04/15/[address] [facility] [address] [facility] [place] [address] documented as of this encounter
--- OUTSIDE RECORDS SUMMARY | 2022-03-18 11:35 | XMS_ITS | Encounter Summary ---
:1970 Author Organization [facility] [place] [address] Care Team Providers Name Role Phone Lolis Moss MD Primary Care Provider Encounter Details Date Type Department Care Team Description 06/25/2016 Telephone Neurology at [facility] Debra Munguia MD [facility] [place] [address] [place] [address] [phone] (Wo rk) Social History Tobacco Use Types [...] Telephone Encounter - Debra Munguia MD - 06/25/2016 12:51 PM EST Pt requesting to go back onto Klonopin 1mg tid. Says this was changed during previous admission to bid dosing. Had previously been on the tid dosing for quite a while, though unclear exactly how long. I was doing better on 3 per day. Pt takes 2 pills per day on a scheduled basis (in am and in pm) rather than as needed. Pt endorses ongoing panic attacks and is anticipating going into a number of stress-inducing situations (ex. Job interviews). Endorses feeling safe, not feeling like a danger to herself or others. Also concerned about being away next week and being home alone with daughter. What if I have another spell? Has explained to her daughter several times that she is to call 911 in that situation. Denies SI. After speaking to Dr. Vanegas, concluded that pt should not increase benzo frequency at this time until further evaluation. Called pt to relay message. Left message. Awaiting call back. Telephone Encounter - Debra Munguia MD - 06/25/2016 12:51 PM EST ----- Message from Ciera Jolly sent at 06/25/2016 11:40 AM EST ----- Regarding: Medication Pt called and wants to take 3mg of Clonazepam like she use to take until her appt with you on 07/07/16 I went back to the year of 2009 and did not find that she was on [facility] Her number is [phone] documented in this encounter Plan of Treatment Upcoming Encounters Date Type Specialty Care Team Description 04/14/2022 Office Visit Neurology Cameron Alves MD [facility] [place] [address] [place] [address] (Wo rk) documented as of this encounter Visit Diagnoses Not on filedocumented in this encounter Care Teams Document Processing Specialist Relationship Specialty Start Date End Date Lolis Moss MD PCP - General General Internal Medicine 04/15/16 0 [facility] [address] [place] [address] documented as of this encounter
--- OUTSIDE RECORDS SUMMARY | 2022-03-18 11:35 | XMS_ITS | Encounter Summary ---
:1970 [place] [address] Care Team Providers Name Role Phone Lolis Moss MD Primary Care Provider Reason for Visit Reason Onset Date Comments Medication Refill 07/13/2016 Encounter Details Date Type Department Care Team Description 07/13/2016 Refill [address] Medicine at [facility] org, Lolis Gimenez MD [facility] [address] [facility] [place] [address] [place] [address] [phone] (Wo rk) Social History Tobacco Use Types [...] encounter Miscellaneous Notes Telephone Encounter - Domitila Jeter MA - 07/13/2016 10:22 AM EST Called pharmacy and spoke with Faith, pharmacist, and she stated pt had picked up a partial script and has 120 tabs left. Telephone Encounter - Debra Contreras - 07/13/2016 9:02 AM EST The patient called asking for refill of duloxetine to the [facility] in [place]. She did not realize she was out of refills and is all out of this medication. documented in this encounter Plan of Treatment Upcoming Encounters Date Type Specialty Care Team Description 04/14/2022 Office Visit Neurology Cameron Alves MD [facility] er [address] [place] [address] (Wo rk) documented as of this encounter Visit Diagnoses Not on filedocumented in this encounter Care Teams Distribution Systems Superintendent Relationship Specialty Start Date End Date Lolis Moss MD PCP - General General Internal Medicine 04/15/16 0 [facility] [address] [facility] [place] [address] documented as of this encounter
--- OUTSIDE RECORDS SUMMARY | 2022-03-18 11:35 | XMS_ITS | Encounter Summary ---
:1970 Author Organization [facility] [address] Care Team Providers Name Role Phone Lolis Moss MD Primary Care Provider Encounter Details Date Type Department Care Team Description 07/19/2016 Telephone Psychiatry Debra Munguia MD [facility] [place] [address] [place] [id number] [phone] (Wo rk) Social History Tobacco Use Types [...] Telephone Encounter - Debra Munguia MD - 07/19/2016 5:21 PM EST Attempted to reach pt to f/u on visit to [place] ED. No answer. Left message. Awaiting call back. documented in this encounter Plan of Treatment Upcoming Encounters Date Type Specialty Care Team Description 04/14/2022 Office Visit Neurology Cameron Alves MD [facility] [address] [place], [place] [address] (Wo rk) documented as of this encounter Visit Diagnoses Not on filedocumented in this encounter Care Teams Press Reader Relationship Specialty Start Date End Date Lolis Moss MD PCP - General General Internal Medicine 04/15/16 [address] [facility] [address] [place] [address] documented as of this encounter
--- OUTSIDE RECORDS SUMMARY | 2022-03-18 11:35 | XMS_ITS | Encounter Summary ---
:1970 Author Organization [facility] [place] [address] Care Team Providers Name Role Phone Lolis Moss MD Primary Care Provider Encounter Details Date Type Department Care Team Description 06/26/2016 Telephone [place]rology [place] [facility] [place]bra Munguia MD [facility] [place] [address] [place], [place] [id number] [phone] (Wo rk) Social History Tobacco Use Types [...] Telephone Encounter - Debra Munguia MD - 06/26/2016 2:33 PM EST Received call back from pt. Explained that would not advise increasing her frequency of klonopin at this time. Pt expresses understanding. Reports she is doing well. Endorses feeling safe. Denies SI. Reiterated importance of calling emergency numbers in times of crisis, which she agreed to do. She also reports having told her and daughter to call in cases of emergency. She says that she will be bringing to upcoming appt and that he will be able to provide the history of the latest trip to ED. documented in this encounter Plan of Treatment Upcoming Encounters Date Type Specialty Care Team Description 04/14/2022 Office Visit Neurology Cameron Alves MD [facility] er [place], [place] [address] (Wo rk) documented as of this encounter Visit Diagnoses Not on filedocumented in this encounter Care Teams Senior Validation Engineer Relationship Specialty Start Date End Date Lolis Moss MD PCP - General General Internal Medicine 04/15/16 0 [facility] [address] [facility] [place] [address] documented as of this encounter
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
--- OUTSIDE RECORDS SUMMARY | 2022-03-18 11:35 | XMS_ITS | Encounter Summary ---
:1970 Author Organization [facility] [place] [address] Care Team Providers Name Role Phone Lolis Moss MD Primary Care Provider Reason for Visit Reason Onset Date Comments Medication Refill 07/10/2016 Encounter Details Date Type Department Care Team Description 07/10/2016 Refill Psychiatry and [facility] Debra ortiz MD [facility] [place] [address] [place] [address] [phone] Social History Tobacco Use Types Packs/Day Years [...] Cameron Alves MD [facility] [address] [place] [address] (Wo rk) documented as of this encounter Visit Diagnoses Not on filedocumented in this encounter Care Teams Laundry Tub Maker Relationship Specialty Start Date End Date Lolis Moss MD PCP - General General Internal Medicine 04/15/16 [address] [facility] [address] [facility] [place] [address] documented as of this encounter
--- OUTSIDE RECORDS SUMMARY | 2022-03-18 11:35 | XMS_ITS | Encounter Summary ---
:1970 Author Organization [facility] [place] [address] Care Team Providers Name Role Phone Lolis Moss MD Primary Care Provider Encounter Details Date Type Department Care Team Description 06/23/2016 Telephone Psychiatry and Behavioral Debra Gomez MD [facility] [place] [id number] [place] [phone] Social History Tobacco Use Types Packs/Day Years [...] Telephone Encounter - Debra Munguia MD - 06/23/2016 3:05 PM EST Reached pt at [phone] to inquire about recent ED visit at [facility] ED on 06/20/16. Pt unable to describe what happened. Has appt tmrw with PCP. It really sounds like some type of..seizure. She was hiding in closet, gesturing, rocking back and forth, mumbling to herself, falling asleep and waking up. Was paranoid in ED - I thought they were talking about me..I said 'that's not very nice.' +incontinence. Since last visit, endorses ongoing panic attacks, including at work, in front of students, includingone particularly bad attack in which she was without her klonopin. It hits me like a train. This incident arose concern for giving her a contract at work. Denies mismanagement of medicine. Endorses taking klonopin 1mg BID, baclofen prn, candasartan 16mgQHS, benadryl prn, cymbalta 60mg BID, Nexium 40mg BID, Iron, folic acid, MVI, zyprexa 10mg QHS, riboflavin, carafate QID, sumatriptan prn, topamax 100mg WHS, trazodone 50mg QHS. Denies recent changes to meds or use of additional OTC meds. Reports feeling safe, but has ongoing anxiety since will be away next week and will be home with only daughter. what if I have a seizure? Denies SI or HI. Endorses depression because didn't get contract at work due to panic attacks. Suspects that she has lost the position. I feel a lot of self-loathing right now. But no, I'm not going to hurt anyone. I'm not going to hurt myself. Would like to get at underlying cause of both the panic attacks as well as the spells that led to EDvisit. Offered to arrange for f/u next week (06/30) rather than wait until f/u on 07/07, but pt said that she wouldn't be able to drive here sooner than the scheduled appt. Agrees to call crisis lines in times of crisis - 911, ([facility]) or [place] crisis line at [phone]. Pt took down numbers and verbalized plan to call and to encourage those around her to call if they see her acting strangely. Also stated her plans to present to clinic on 07/07. Further encouraged pt to look for therapy provider on Trul[place], which she agreed to do. documented in this encounter Plan of Treatment Upcoming Encounters Date Type Specialty Care Team Description 04/14/2022 Office Visit Neurology Cameron Alves MD [facility] [place] [address] (Wo rk) documented as of this encounter Visit Diagnoses Not on filedocumented in this encounter Care Teams Technician Biological Health Relationship Specialty Start Date End Date Lolis Moss MD PCP - General General Internal Medicine 04/15/[address] [facility] [place] [address] documented as of this encounter
--- OUTSIDE RECORDS SUMMARY | 2022-03-18 11:35 | XMS_ITS | Encounter Summary ---
:1970 Author Organization [facility] Address [address] [place] [address] Care Team Providers Name Role Phone Lolis Moss MD Primary Care Provider Reason for Visit Reason Comments Establish Care Other seeing dentist on the ntibiotics? also schedule PAP another day Encounter Details Date Type Department Care Team Description 05/20/2016 Office Visit Internal Medicine at Lolis Moss chosis, unspecified psychosis type (Primary Dx); Karina Gimenez MD Need for prophylactic vaccination and in oculation against influenza; [address] [facility] Need for prophylactic vaccin ation with combined wvbbixirqu-draxifn-vzgcmlety (DTP) vaccine; [place], [place] Altered mental status, unspecified alter ed mental status type; [id number] [facility] Breast cancer screening, hig h risk patient; [phone] PRIMARY CARE Psoriatic arthritis; [place], [place] [address] Screening for malignant neoplasm of cerv ix; [phone] 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; (Work) Amnesia; Weight lo ss Social History Tobacco Use Types Packs/Day Years [...] Sign Reading Time Taken Comments Blood Pressure 117/76 05/20/2016 3:23 PM EDT Pulse 100 05/20/2016 3:23 PM EDT Temperature 36.6 ??C (97.9 ??F) 05/20/2016 3:23 PM EDT Respiratory Rate 15 05/20/2016 3:23 PM EDT Oxygen Saturation 100% 05/20/2016 3:23 PM EDT Inhaled Oxygen Concentration - - Weight 67.7 kg (149 lb 3.2 oz) 05/20/2016 3:23 PM EDT Height 158.8 cm (5' 2.52) 05/20/2016 3:23 PM EDT Body Mass Index 26.84 05/20/2016 3:23 PM EDT documented in this encounter Progress Notes Domitila Jeter MA - 05/20/2016 3:30 PM EDT On PQ-9 sheet pt stated 1-2 days for trouble falling asleep, tired, poor appetite, feeling bad aboutyourself, and trouble concentrating. Put NA to moving slowly and thoughts that you would be better off or hurting yourself. Circled not difficult at all Lolis Moss MD - 05/20/2016 3:30 PM EDT To establish care Previously had primary care in [place] Has moved And comes to [facility] already Review med list Wonders about a dental abscess Has appt next week Wonders about antibiotics Has an interview for a job tomorrow Has GI issues Constipation, says that mood swings are better on current meds Definitely better, not as many highs and lows Lately the bowels have been working Takes the carafate, makes her bloat, Periods have been irratic Has BTL PE BP 117/76 (BP Location (NBP): Left arm, Patient Position: Sitting, BP Cuff Sizes: Adult (25-34 cm)) Pulse 100 Temp 36.6 ??C (97.9 ??F) (Oral) Resp 15 Ht 158.8 cm (5' 2.52) Wt 67.7 kg (149 lb 3.2 oz) LMP Comment: thinks early menopause SpO2 100% BMI 26.84 kg/m2 General: looks tired But pleasant and appriate Eyes: Sclera white Neck: No adenopathy or masses, Carotids 2+ equal, Chest: Nl AP diameter Breast: Symmetric, no masses, no axially adenopathy Lungs: Clear without wheezing or rales, Inspiratory more than expiratory Heart: PMI not displaced, Reg rhythm, no MRG, Abdomen: Bowel sounds present, no tenderness, no masses, no HSM, no inguinal adenopathy Pelvic: External normal, vaginal mucosa normal without discharge, cervix freely mobile(does not appear to have cone bx), Uterus small, no adnexal masses Extremities: No edema, peripheral pulses intact Rheumatologic: No active synovitis A/P She relates a history of abnl PAPs and a cone bx, but cervix appears normal today. Will wait on results Altered mental status This has improved Psoriatic arthritis Always had the psoriasis Has some bone and joint pain Saw a Rhematologist at [facility]--had some tests, was thought to have it Joint pain has not been debilitating, treats with heat and ice and aleve Something to follow and perhaps to refer if significant trouble Breast cancer screening, high risk patient Ordered mammo Migraine Recently saw neuro Has a new plan Amnesia Has some around the time of her recent hospitalization and how she ended up in hospital Weight loss Weight has been stable over recent months Psychosis This was not evident today Psych meds should not be prescribed by primary care for this patient Encouraged her to keep follow up psych appt Health Maintenance Topic Date Due ??? HIV screen 1990 ??? HPV test every 5 yrs 2002 ??? Diabetes Screening (HgbA1C or Glucose) 04/04/2019 ??? PAP every 5 yrs 05/20/2021 ??? Tetanus vaccine 05/20/2026 ??? Pneumo Increased Risk Completed ??? Influenza (Flu) vaccine Completed ??? Tdap adult Completed Does not feel a need for HIV Last PAP a long time ago, has been HPV positive documented in this encounter Miscellaneous Notes Assessment & Plan Note - Lolis Moss MD - 05/20/2016 6:17 PM EDT Associated Problem(s): Psychosis (Resolved 05/26/2016) This was not evident today Psych meds should not be prescribed by primary care for this patient Encouraged her to keep follow up psych appt Assessment & Plan Note - Lolis Moss MD - 05/20/2016 6:16 PM EDT Associated Problem(s): Weight loss Weight has been stable over recent months Assessment & Plan Note - Lolis Moss MD - 05/20/2016 6:15 PM EDT Associated Problem(s): Amnesia Has some around the time of her recent hospitalization and how she ended up in hospital Assessment & Plan Note - Lolis Moss MD - 05/20/2016 6:15 PM EDT Associated Problem(s): Migraine Recently saw neuro Has a new plan Assessment & Plan Note - Lolis Moss MD - 05/20/2016 6:15 PM EDT Associated Problem(s): Breast cancer screening, high risk patient Ordered mammo Assessment & Plan Note - Lolis Moss MD - 05/20/2016 3:59 PM EDT Associated Problem(s): Psoriatic arthritis Always had the psoriasis Has some bone and joint pain Saw a Rhematologist at [facility]--had some tests, was thought to have it Joint pain has not been debilitating, treats with heat and ice and aleve Something to follow and perhaps to refer if significant trouble Assessment & Plan Note - Lolis Moss MD - 05/20/2016 3:56 PM EDT Associated Problem(s): Altered mental status This has improved documented in this encounter Plan of Treatment Upcoming Encounters Date Type Specialty Care Team Description 04/14/2022 Office Visit Neurology Cameron Alves MD [address] [facility] [address] [place], [place] [address] (Wo rk) documented as of this encounter Procedures Procedure Name Priority Date/Time Associated Comments Diagnosis HPV Routine 05/20/2016 4:11 PM Results f or this EDT procedure are i n the results section. INCOME TAX ADVISOR CYTOLOGY Routine 05/20/2016 4:11 PM Results f or this INTERPRETATION EDT procedure are in the results section. INCOME TAX ADVISOR CYTOLOGY FINAL Routine 05/20/2016 4:11 PM Res ults for this REPORT EDT procedure are i n the results section. CYTOPATHOLOGY Routine 05/20/2016 4:11 PM Screening for Results for this GYNECOLOGICAL EDT malignant neoplasm procedur e are in of cervix the results section. documented in this encounter Results INCOME TAX ADVISOR Cytology Interpretation (05/20/2016 4:11 PM EDT) [facility] Method Time Signature Sterile Supervisor Cytology NILM [facility] LABORATORY Comment: Sterile Supervisor Cytology Final Report Acces benny: [id number] Endocervical Component Not Present [facility] LABORATORY Specimen Anatomical Collection Method Collection Time Receive d Time (Source) Location / / Volume Laterality AP Specimen 05/20/2016 4:11 PM 6 2:21 EDT PM EDT Lolis Moss MD PATHOLOGY/CYTOLOGY ORDERABLE S Performing Organization Address City/State/ZIP Code Phon [place] [address] Sterile Supervisor Cytology Final Report (05/20/2016 4:11 PM EDT) Component Value Ref Test Analysis Performed At [facility] Range Method Time Signature Sterile Supervisor Cytology [id number] ? Location: [facility] Final Report PINKY The signing pathologist has (i) examined the relevant preparation(s) for the [facility]IAL specimen(s) and (ii) rendered or confirmed the diagnosis(es) . HOSPITAL LABORATORY . ? Sterile Supervisor Final DIAGNOSIS Normal Negative for Intraepithelial Lesion or Malignancy (NILM). For consensus guidelines for the management of c ervical cancer screening test results, please see: ?? http://www.asccp.org/guidelines . Electronically signed by: ??KAREN Fontaine(ASCP), Rosa Sosa Verified: ??05/28/2016 ?Icer Air Conditioning HPV RESULTS HPV16 (Result) ?NEGATIVE HPV18 (Result) ?NEGATIVE HPVOHR (Result) ? NEGATIVE HPV (Interpretation) ?See Below HPV (Interpretation) Text: [...] [place]. ? - Bright Ga, PhD, [facility], Director-[facility] STATEMENT OF [facility] Specimen submitted is satisf actory for evaluation. No endocervical component present. Note: ??Initial cross-sectional studies suggested th at DAVID cells were more commonly identified when an endocervical component was present, however subsequent longitudinal studies fail t o show that women lacking an endocervical component in a Pap smear are at increased risk for DAVID. CLINICAL INFORMATION HPV Option: ?Concurrent HPV and Pap Preparation: ? Liquid based Pap Specimen Source: ? Cervical/Endocervical/Vaginal LMP: ? 9/18/16 (?) Hormones?: ? No Hysterectomy?: ? No ?: ? No ?: ? No I.U.D.?: ? No Pelvic Radiation: ?No Prior INCOME TAX ADVISOR Therapy?: ?Cone Biopsy Hist Abnl Pap/Biopsy?: ?? Yes, history of previous abnormal Pap Hist of HPV Vaccine?: ?No Hist of Smoking?: ?Yes Hist of KARLENE exposure?: ?? No . CLINICAL INFORMATION ICD Diagnosis: ? Z12.4 Encounter for screening for malignant neoplasm of cervix Clinical Data, Significant Therapy and Clinical Impression ? ? : ?last abnl PAP 2008 This Pap Test has been evalu ated with the assistance of the [employer] Pap Test Imaging System. Note: The Pap test is a screening test for cervical cancer with an inherent false-negative rate dependent upon several variables. ??For further information please contact the [facility] [place] Laboratory. Reference: ??Mckenna ART. ? ?Oil Distributor of Pap Smear Results. ??In: ??Dede BS, Vlad HH, ed. ??The Pap Smear. ??[place]: ??Thomas, 20 02: ??71-77. Specimen (Source) Anatomical Collection Method Collection Time Re ceived Time Location / / Volume Laterality 05/20/2016 4:11 PM EDT Lolis Moss MD PATHOLOGY/CYTOLOGY ORDERABLE S Performing Organization Address City/[facility]/[place]IP [place] [address] HPV (05/20/2016 4:11 PM EDT) [facility] Method Time Signature HPV 16 NEGATIVE NEGATIVE [facility] HPV 18 NEGATIVE NEGATIVE [facility] HPV Other HR NEGATIVE NEGATIVE [facility] HPV See Comment [facility] LABORATORY Comment: NEGATIVE for high-risk HPV *. [...] Location / / Volume Laterality Cervical swab 05/20/2016 4:11 PM 05/20/20 16 6:56 (specimen) EDT PM EDT Resulting Agency Comment Spec In Lab Lolis Moss MD PATHOLOGY/CYTOLOGY ORDERABLE S Performing Organization Address City/State/[place] [address] Cytopathology Gynecological (05/20/2016 4:11 PM EDT) Specimen Anatomical Collection Method Collection Time Receive d Time (Source) Location / / Volume Laterality AP Specimen 05/20/2016 4:11 PM 6 6:30 EDT PM EDT Narrative [facility]Y - 05/20/2016 6:30 PM EDT Specimen requisition ordered. ??Separate Pathology report to follow Resulting Agency Comment Spec In Lab Lolis Moss MD PATHOLOGY/CYTOLOGY ORDERABLE S Performing Organization Address City/State/[place] [address] documented in this encounter Visit Diagnoses Diagnosis Psychosis, unspecified psychosis type - Primary Need for prophylactic vaccination and in oculation against influenza Need for prophylactic vaccination with c ombined fdxnuqrnwz-urcphfr-ivzctbuzj (DTP) vaccine Altered mental status, unspecified alter ed mental status type Breast cancer screening, high risk patie nt Screening mammogram for high-risk patien t Psoriatic arthritis Psoriatic arthropathy Screening for malignant neoplasm of cerv ix Screening for malignant neoplasm of the cervix Intractable migraine with aura with stat us migrainosus Migraine with aura, with intractable jean claude devon, so stated, with status migrainosus Amnesia Memory loss Weight loss Loss of weight documented in this encounter Care Teams English Composition Instructor Relationship Specialty Start Date End Date Lolis Moss MD PCP - General General Internal Medicine 04/15/1602/12/ [address] [facility] [address] [facility] [place] [address] documented as of this encounter
--- OUTSIDE RECORDS SUMMARY | 2022-03-18 11:35 | XMS_ITS | Encounter Summary ---
:1970 Author Organization [place] [address] Care Team Providers Name Role Phone Lolis Moss MD Primary Care Provider Reason for Visit Reason Onset Date Comments Triage 07/17/2016 Encounter Details Date Type Department Care Team Description 07/17/2016 Telephone Family Medicine at [facility] Lulú Tong Triage [address] [place] [address] Social History Tobacco Use Types Packs/Day [...] Telephone Encounter - Linda Jarvis RN - 07/17/2016 11:02 AM EST Pt is calling in to try to quit smoking. Pt has used patches in the past. Pt is smoking 1 ppd, pt was on the highest level patch and weaned self down. [place] Prep and pend for provider edit and approval. Telephone Encounter - Lulú Tong - 07/17/2016 10:45 AM EST Message: pt calling, would like to speak to someone about quitting smoking and prehaps getting the patch or something prescribed. Please call back. Thank you Caller and relationship (if other than patient-full name): self Best time to call back: any Ok to leave a message: [y] Ok to send my- message: [n] Offered Appointment: Nurse contacted via: Message: x Call: Pager: documented in this encounter Plan of Treatment Upcoming Encounters Date Type Specialty Care Team Description 04/14/2022 Office Visit Neurology Cameron Alves MD [facility] [place], [place] [address] (Wo rk) documented as of this encounter Visit Diagnoses Diagnosis Quit smoking Personal history of tobacco use, present ing hazards to health documented in this encounter Care Teams Events And Promotions Assistant Relationship Specialty Start Date End Date Lolis Moss MD PCP - General General Internal Medicine 04/15/16 [address] [facility] [address] [facility] [place] [address] documented as of this encounter
--- OUTSIDE RECORDS SUMMARY | 2022-03-18 11:35 | XMS_ITS | Encounter Summary ---
:1970 Author Organization [facility] [place] [address] Care Team Providers Name Role Phone Lolis Moss MD Primary Care Provider Reason for Referral Consultation (Routine) - Closed Specialty Diagnoses / Procedures Referred By Contact Refer red To Contact Neurology Diagnoses Disorganized behavior Debra Munguia MD [facility] Neurology [address] [place] [address] [place] [address] [place] [address] Fax: Referral ID Status Reason Start Date Expiration Date Visits V isits Requested Authorized [id number] Closed Consult, 07/08/2016 07/08/2017 1 1 Test & Treat Encounter Details Date Type Department Care Team Description 07/08/2016 Orders Only Neurology [place] [facility] Debra Munguia Disorganized behavior [facility] [place] [phone] [place], [place] [address] Social History Tobacco Use Types [...] Alves MD [facility] [place] [address] (Wo rk) Scheduled Referrals Name Type Priority Associated Diagnoses Order S chedule Referral to Outpatient Referral Routine Disorganized behavior Ordered: Neurology 07/08/2016 documented as of this encounter Visit Diagnoses Diagnosis Disorganized behavior Other conduct disorder documented in this encounter Care Teams Chief Yeoman Relationship Specialty Start Date End Date Lolis Moss MD PCP - General General Internal Medicine 04/15/16 0 [facility] [address] [facility] [place] [address] documented as of this encounter
--- OUTSIDE RECORDS SUMMARY | 2022-03-18 11:35 | XMS_ITS | Encounter Summary ---
:1970 Author Organization [facility] [place] [address] Care Team Providers Name Role Phone Lolis Moss MD Primary Care Provider Encounter Details Date Type Department Care Team Description 06/02/2016 Orders Only Psychiatry and Behavioral [place] Debra [place] [address] [place] [phone] Social History Tobacco Use Types Packs/Day Years [...] documented as of this encounter Progress Notes Libby Sequeira MA - 06/02/2016 4:10 PM EDT Destroyed Prescription that was printed at [facility]. Witnessed by Haydee Norman. documented in this encounter Plan of Treatment Upcoming Encounters Date Type Specialty Care Team Description 04/14/2022 Office Visit Neurology Cameron Alves MD [facility] [place] [address] (Wo rk) documented as of this encounter Visit Diagnoses Not on filedocumented in this encounter Care Teams Planning Rn Relationship Specialty Start Date End Date Lolis Moss MD PCP - General General Internal Medicine 04/15/[address] [facility] [address] [facility] [place] [address] documented as of this encounter
--- OUTSIDE RECORDS SUMMARY | 2022-03-18 11:35 | XMS_ITS | Encounter Summary ---
:1970 Author Organization [facility] [place] [address] Care Team Providers Name Role Phone Lolis Moss MD Primary Care Provider Reason for Visit Reason Onset Date Comments Medication Refill 05/29/2016 Encounter Details Date Type Department Care Team Description 05/29/2016 Refill Internal Medicine at [facility] Daphne Norman [address] [place] [address] Social History Tobacco Use Types Packs/Day [...] Telephone Encounter - Lolis Moss MD - 06/01/2016 12:49 PM EDT Many thanks Not sure what I saw, There is 03/31& klonopin scripts in the system, likely when she was in the hospital Might have misread the dates Did not call the pharmacy documented in this encounter Plan of Treatment Upcoming Encounters Date Type Specialty Care Team Description 04/14/2022 Office Visit Neurology Cameron Alves MD [facility] [place] [address] (Wo rk) documented as of this encounter Visit Diagnoses Not on filedocumented in this encounter Care Teams Crusher Tender Relationship Specialty Start Date End Date Lolis Moss MD PCP - General General Internal Medicine 04/15/16 0 [facility] [address] [facility] [place] [address] documented as of this encounter
--- OUTSIDE RECORDS SUMMARY | 2022-03-18 11:35 | XMS_ITS | Encounter Summary ---
:1970 Author Organization [facility] [place] [address] Care Team Providers Name Role Phone Lolis Moss MD Primary Care Provider Reason for Visit Reason Onset Date Comments Other 06/25/2016 Encounter Details Date Type Department Care Team Description 06/25/2016 Telephone Internal Medicine at [facility] Diane Debra Stalney Other [address] [place] [address] Social History Tobacco Use Types Packs/Day [...] encounter Miscellaneous Notes Telephone Encounter - Angeles Freeman RN - 06/25/2016 11:49 AM EST Call back to Lisseth. She is concerned about some wording in her exit paperwork. We discussed use of simplified medical terms for general understanding. She has not further questions and seems satisfied at the end of our call. Will call prn. Telephone Encounter - Diane, Debra Angel - 06/25/2016 11:02 AM EST Message: The patient called asking to speak to Dr. Moss or a nurse about what was entered on her medical record yesterday. She complains that the provider diagnosed her with spells which upsets her. She asks if that is even a medical term. Caller and relationship (if other than patient-full name): patient Best time to call back: any Ok to leave a message: [yes] Ok to send my- message: [no] Offered Appointment: no Nurse contacted via: Message: yes Call: no Pager: no documented in this encounter Plan of Treatment Upcoming Encounters Date Type Specialty Care Team Description 04/14/2022 Office Visit Neurology Cameron Alves MD [facility] [address] [place] [address] (Wo rk) documented as of this encounter Visit Diagnoses Not on filedocumented in this encounter Care Teams Ore Washer Relationship Specialty Start Date End Date Lolis Moss MD PCP - General General Internal Medicine 04/15/[address] [facility] [address] [facility] [place] [address] documented as of this encounter
--- OUTSIDE RECORDS SUMMARY | 2022-03-18 11:35 | XMS_ITS | Encounter Summary ---
:1970 Author Organization [facility] [place] [address] Care Team Providers Name Role Phone Lolis Moss MD Primary Care Provider Reason for Referral Consultation (Routine) - Specialty Diagnoses / Procedures Referred By Contact Refer red To Contact Psychiatry Diagnoses Disorganized behavior Debra Munguia I, [facility] Psych Neuro 5d Procedures PRO NEUROPSYCHOLOGICAL TESTING,PER HOUR BY TEST BORER [place], [place] [id number] [place] [phone] Phone: Referral ID Status Reason Start Date Expiration Date Visits V isits Requested Authorized [id number] Consult, 07/23/2016 07/23/2017 1 1 Test & Treat Encounter Details Date Type Department Care Team Description 07/23/2016 Telephone Neurology at [facility] Debra Munguia MD [facility] [place] [address] [place] [address] [phone] (Wo rk) Social History Tobacco Use Types [...] Telephone Encounter - Debra Munguia MD - 07/23/2016 1:22 PM EST Called pt at [phone] to discuss klonopin frequency. Left message. Awaiting call back. Telephone Encounter - Debra Munguia MD - 07/23/2016 1:22 PM EST ----- Message from January Pérez sent at 07/23/2016 11:47 AM EST ----- Regarding: please call Patient called and would like to speak regarding dosage on her klonopin, best number is [phone], thank you. documented in this encounter Plan of Treatment Upcoming Encounters Date Type Specialty Care Team Description 04/14/2022 Office Visit Neurology Cameron Alves MD [facility] [place], [place] [address] (Wo rk) Scheduled Referrals Name Type Priority Associated Diagnoses Order S chedule Referral to Outpatient Referral Routine Disorganized behavior Ordered: Neurology 07/23/2016 documented as of this encounter Visit Diagnoses Diagnosis Disorganized behavior Other conduct disorder documented in this encounter Care Teams Supervisor Die Casting Relationship Specialty Start Date End Date Lolis Moss MD PCP - General General Internal Medicine 04/15/16 0 [facility] [address] [place] [address] documented as of this encounter
--- OUTSIDE RECORDS SUMMARY | 2022-03-18 11:35 | XMS_ITS | Encounter Summary ---
:1970 Author Organization [place] [address] Care Team Providers Name Role Phone Lolis Moss MD Primary Care Provider Encounter Details Date Type Department Care Team Description 04/03/2016 Telephone Family Medicine at [facility] Sushma Christianson RN [address] [place] [address] Social History Tobacco Use Types Packs/Day Years Used Date Former Smoker Cigarettes 0 15 Quit: 12/09/19 03 Smokeless Tobacco: Never Used Alcohol Use Standard Drinks/Week Comments No 0 (1 standard drink = 0.6 oz pure alcoho l) Sex Assigned at Date Recorded Not on file documented as of this encounter Miscellaneous Notes Telephone Encounter - Agnieszka Christianson RN - 04/03/2016 1:14 PM EDT Received call from case management social worker for inpt psych. Pt is being discharged tomorrow. 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 Psych follow up is to be scheduled with [facility] - no appt yet scheduled as case management social worker to call them next. She is also being referred to outpatient Psychiatry on 5 D as well. Pt lives in [facility]. senior hr manager states that pt was identified as having problems related to polypharmacy of all kinds of meds. Needs new pcp. Needs to establish within 7-10 business days. Able to schedule for a New Acute Visit with Dr. Garcia Bhandari on Wednesday04-07-16 for 11:00 am. documented in this encounter Plan of Treatment Upcoming Encounters Date Type Specialty Care Team Description 04/14/2022 Office Visit Neurology Cameron Alves MD [facility] [address] [place] [address] (Wo rk) documented as of this encounter Visit Diagnoses Not on filedocumented in this encounter Care Teams Publications Writer Relationship Specialty Start Date End Date Lolis Moss MD PCP - General General Internal Medicine 04/15/16 [address] [facility] [address] [facility] [place] [address] documented as of this encounter
--- OUTSIDE RECORDS SUMMARY | 2022-03-18 11:35 | XMS_ITS | Encounter Summary ---
:1970 Author Organization [place] [address] Care Team Providers Name Role Phone Lolis Moss MD Primary Care Provider Encounter Details Date Type Department Care Team Description 07/02/2016 Telephone Neurology at [facility] Debra Munguia MD [facility] [place] [address] [place], [place] [id number] [phone] (Wo rk) Social History Tobacco Use Types [...] Telephone Encounter - Debra Munguia MD - 07/02/2016 10:49 AM EST Attempted to reach pt at [phone]. Left message. Awaiting call back. Telephone Encounter - Debra Munguia MD - 07/02/2016 10:48 AM EST ----- Message from Anais Ritter sent at 07/02/2016 10:26 AM EST ----- Regarding: Pls call pt Pt left a voice mail at 8:00 this morning asking you to pls call her at [phone]. documented in this encounter Plan of Treatment Upcoming Encounters Date Type Specialty Care Team Description 04/14/2022 Office Visit Neurology Cameron Alves MD [facility] [address] [place], [place] [address] (Wo rk) documented as of this encounter Visit Diagnoses Not on filedocumented in this encounter Care Teams Rn Travel Relationship Specialty Start Date End Date Lolis Moss MD PCP - General General Internal Medicine 04/15/[address] [facility] [address] [place] [address] documented as of this encounter
--- OUTSIDE RECORDS SUMMARY | 2022-03-18 11:35 | XMS_ITS | Encounter Summary ---
:1970 Author Organization [facility] [place] [address] Care Team Providers Name Role Phone Lolis Moss MD Primary Care Provider Encounter Details Date Type Department Care Team Description 06/16/2016 Telephone Psychiatry and Behavioral [place] [address] [place] [phone] Social History Tobacco Use Types Packs/Day Years [...] Encounter - Debra Munguia MD - 06/16/2016 12:44 PM EDT Prescription for clonazepam 1mg BID called into [facility] in [place], [place] . Discontinued clonazepam at [facility]. Telephone Encounter - Debra Munguia MD - 06/16/2016 12:41 PM EDT ----- Message from Ciera Jolly sent at 06/16/2016 9:17 AM EDT ----- Regarding: Script Pt called and and stated that the script sent to the [facility] for the Clonazepam was suppose togo to the [facility] in [place], [place] This medication can be called in or paper faxed to a pharmacy Pt # is [phone] documented in this encounter Plan of Treatment Upcoming Encounters Date Type Specialty Care Team Description 04/14/2022 Office Visit Neurology Cameron Alves MD [facility] [address] [place], [place] [address] (Wo rk) documented as of this encounter Visit Diagnoses Not on filedocumented in this encounter Care Teams Evening Anchor Relationship Specialty Start Date End Date Lolis Moss MD PCP - General General Internal Medicine 04/15/16 [address] [facility] [address] [place] [address] documented as of this encounter
--- OUTSIDE RECORDS SUMMARY | 2022-03-18 11:35 | XMS_ITS | Encounter Summary ---
:1970 Author Organization [facility] [place] [address] Care Team Providers Name Role Phone Lolis Moss MD Primary Care Provider Encounter Details Date Type Department Care Team Description 07/21/2016 External Results Internal Medicine at [place], [address] [place] [address] Social History Tobacco Use Types Packs/Day [...] Alves MD [facility] [address] [place] [address] (Wo rk) documented as of this encounter Procedures Procedure Name Priority Date/Time Associated Diagnosis Comme nts EXTERNAL LAB CBC CMP Routine 07/15/2016 Results for this THYROID RESULTS PANEL proced ure are in the results section . documented in this encounter Results (ABNORMAL) CBC / CMP / Thyroid External Results (07/15/2016) Analysis Performed At Patho logist Time Signature WBC 7.4 (External Lab) RBC 3.81 4.00 - (EXTERNAL/ 5.20 ABN) Hemoglobin 1,039.0 12.0 - (EXTERNAL/ 16.0 ABN) Hematocrit 33.9 36.0 - (EXTERNAL/ 46.0 ABN) MCV 89.0 82.0 - (External 108.0 Lab) Platelets 446 (EXTERNAL/ ABN) Sodium 141 137 - 147 (External Lab) Potassium 3.7 3.4 - 5.3 (External Lab) Chloride 113 99 - 108 (EXTERNAL/ ABN) CO2 21 22 - 29 (External Lab) BUN 17 (External Lab) Creatinine 0.93 (External Lab) Estimated GFR >60 (External Lab) Glucose Lvl 96 (External Lab) Calcium 9.3 8.7 - 10.7 (External Lab) Specimen (Source) Anatomical Location Collection Method / Collectio n Time Received Time / Laterality Volume 07/15/2016 Narrative This result has an attachment that is no t available. Historical Provider POINT OF CARE TEST ORDERABLE S documented in this encounter Visit Diagnoses Not on filedocumented in this encounter Care Teams Senior Principal Relationship Specialty Start Date End Date Lolis Moss MD PCP - General General Internal Medicine 04/15/16 0 [facility] [address] [facility] [place] [address] documented as of this encounter
--- OUTSIDE RECORDS SUMMARY | 2022-03-18 11:35 | XMS_ITS | Encounter Summary ---
:1970 Author Organization [facility] [place] [address] Care Team Providers Name Role Phone Lolis Moss MD Primary Care Provider Encounter Details Date Type Department Care Team Description 06/24/2016 External [facility] [address] [place] [address] Social History Tobacco Use Types Packs/Day [...] MD [facility] [address] [place] [address] (Wo rk) documented as of this encounter Procedures Procedure Name Priority Date/Time Associated Diagnosis Comme nts EXTERNAL LAB CBC CMP Routine 06/20/2016 Results for this THYROID RESULTS PANEL proced ure are in the results section . documented in this encounter Results (ABNORMAL) CBC / CMP / Thyroid External Results (06/20/2016) P athologist Signature WBC 9.3 (External Lab) RBC 4.42 4.00 - (External 5.20 Lab) Hemoglobin 12.8 12.0 - (External 16.0 Lab) Hematocrit 39.9 36.0 - (External 46.0 Lab) MCV 90.3 82.0 - (External 108.0 Lab) Platelets 495 (EXTERNAL/A BN) Comment: external ref range: 130 - 400 Sodium 148 (EXTERNAL/ABN) 137 - 147 Potassium 3.5 (External Lab) 3.4 - 5.3 Chloride 114 (EXTERNAL/ABN) 99 - 108 CO2 21 (External Lab) 22 - 29 Comment: external ref range: 21 - 32 BUN 15 (External Lab) Creatinine 0.93 (External Lab) Glucose Lvl 116 (EXTERNAL/ABN) Calcium 8.7 (External Lab) 8.7 - 10.7 Total Protein 7.2 (External Lab) 6.4 - 8.2 Albumin 3.9 (External Lab) 3.5 - 5.0 Total Bilirubin 0.1 (External Lab) Alk Phos 73 (External Lab) AST 13 (EXTERNAL/ABN) 13 - 35 Comment: external ref range: 15 - 37 ALT 18 (External Lab) 7 - 35 Specimen (Source) Anatomical Location Collection Method / Collectio n Time Received Time / Laterality Volume 06/20/2016 Narrative This result has an attachment that is no t available. Historical Provider POINT OF CARE TEST ORDERABLE S documented in this encounter Visit Diagnoses Not on filedocumented in this encounter Care Teams Directory Carrier Relationship Specialty Start Date End Date Lolis Moss MD PCP - General General Internal Medicine 04/15/16 [address] [facility] [address] [facility] [place] [address] documented as of this encounter
--- OUTSIDE RECORDS SUMMARY | 2022-03-18 11:35 | XMS_ITS | Encounter Summary ---
:1970 Author Organization [facility] [place] [address] Care Team Providers Name Role Phone Lolis Moss MD Primary Care Provider Reason for Visit Reason Onset Date Comments Appointment 04/07/2016 Encounter Details Date Type Department Care Team Description 04/07/2016 Telephone Family Medicine at [facility] Debra Contreras Appointment [address] [place] [address] Social History Tobacco Use Types Packs/Day Years Used Date Former Smoker Cigarettes 0 15 Quit: 12/09/19 03 Smokeless Tobacco: Never Used Alcohol Use Standard Drinks/Week Comments No 0 (1 standard drink = 0.6 oz pure alcoho l) Sex Assigned at Date Recorded Not on file documented as of this encounter Miscellaneous Notes Telephone Encounter - Michela Travis RN - 04/07/2016 12:17 PM EDT Natalee, It appears kidney labs are stable Appt as schedule with Natalee for next week Please advise if otherwise Telephone Encounter - Debra Contreras - 04/07/2016 11:26 AM EDT Message: The patient called because she missed her new patient appointment this morning, and she wanted to reschedule. I have her scheduled 04/15 with Natalee LARRY as that was the first available with any of the accepting providers. I had asked the patient the questions to determine complexity and when asked about renal disease and kidney failure she mentioned she had had an issue with her kidney, but it has since resolved. There is a note about renal failure on encounter dated 04/03/16. Please determine appropriateness of this appointment and contact the patient if she should be seen sooner or byan MD/DO. Caller and relationship (if other than patient-full name): patient Best time to call back: any Ok to leave a message: [yes] Ok to send my- message: [no] Offered Appointment: scheduled Nurse contacted via: Message: yes Call: no Pager: no documented in this encounter Plan of Treatment Upcoming Encounters Date Type Specialty Care Team Description 04/14/2022 Office Visit Neurology Cameron Alves MD [facility] [place], [place] [address] (Wo rk) documented as of this encounter Visit Diagnoses Not on filedocumented in this encounter Care Teams Sales Inspector Relationship Specialty Start Date End Date Lolis Moss MD PCP - General General Internal Medicine 04/15/16 0 [facility] [address] [place] [address] documented as of this encounter
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
--- OUTSIDE RECORDS SUMMARY | 2022-03-18 11:35 | XMS_ITS | Encounter Summary ---
:1970 Author Organization [facility] Address [facility] [place] [address] Care Team Providers Name Role Phone Lolis Moss MD Primary Care Provider Reason for Visit Reason Onset Date Comments Medication Refill 06/01/2016 Encounter Details Date Type Department Care Team Description 06/01/2016 Refill Neurology at [facility] Cameron Alves, Migraine with aura and [facility] MD without status Drive [facility] migrainosus, [place] [address] [address] mendes [phone] [place], [place] [address] (Wo rk) Social History Tobacco [...] 04/14/2022 Office Visit Neurology Cameron Alves MD [facility] [place] [address] [place] [address] (Wo rk) documented as of this encounter Visit Diagnoses Diagnosis Migraine with aura and without status mi grainosus, not intractable Migraine with aura, without mention of i ntractable migraine without mention of status migrainosus documented in this encounter Care Teams Transaction Advisory Services Manager Relationship Specialty Start Date End Date Lolis Moss MD PCP - General General Internal Medicine 04/15/[address] [facility] [address] KARINA SALTER [facility] [place] [address] documented as of this encounter
--- OUTSIDE RECORDS SUMMARY | 2022-03-18 11:35 | XMS_ITS | Encounter Summary ---
:1970 Author Organization [facility] [place] [address] Care Team Providers Name Role Phone Lolis Moss MD Primary Care Provider Encounter Details Date Type Department Care Team Description 07/15/2016 Telephone Neurology at [facility] Debra Munguia MD [facility] [place] [address] [place] [address] [phone] (Wo rk) Social History Tobacco Use Types [...] Encounter - Debra Munguia MD - 07/15/2016 2:55 PM EST Called pt to check status. Reports ongoing anxiety and fear of birds outside her window, but currently feels fine. Reports feeling safe. Is awaiting arrival of 13yo daughter from bus and later to go to ED. Again encouraged pt to go to ED, where it can be determined whether current episode isattributable to organic causes (as in past w/ JORGE, polypharmacy, anticholinergic toxicity). Gave crisis numbers again (911, the [facility] crisis number at [phone], [facility] crisis line at [phone]) and pt verbalized plan to call if symptoms worsen before arrival of . documented in this encounter Plan of Treatment Upcoming Encounters Date Type Specialty Care Team Description 04/14/2022 Office Visit Neurology Cameron Alves MD [facility] er [place], [place] [address] (Wo rk) documented as of this encounter Visit Diagnoses Not on filedocumented in this encounter Care Teams Group Worker Relationship Specialty Start Date End Date Lolis Moss MD PCP - General General Internal Medicine 04/15/16 [address] [facility] [address] KARINA [place] [address] documented as of this encounter
--- OUTSIDE RECORDS SUMMARY | 2022-03-18 11:35 | XMS_ITS | Encounter Summary ---
:1970 Author Organization [facility] [place] [address] Care Team Providers Name Role Phone Travis Torres MD Primary Care Provider Reason for Visit Reason Onset Date Comments Medication Refill 04/21/2016 Encounter Details Date Type Department Care Team Description 04/21/2016 Refill Internal Medicine at [facility] Eleni Seth [address] [place] [address] Social History Tobacco Use Types Packs/Day [...] 04/14/2022 Office Visit Neurology Cameron Alves MD [facility] [address] [place] [address] (Wo rk) documented as of this encounter Goals Goal Patient Goal Associated Recent Patient-Stated? Author Type Problems Progress DH Home Medication Patient No Kendrick ridley, Compliance and Facing Kan Restrepo, Understanding Action Plan [facility] Note: [...] on filedocumented in this encounter Care Teams Helper Teacher Relationship Specialty Start Date End Date Travis Torres MD PCP - General Family Medicine 01/09/22 [address] [place] [address] documented as of this encounter
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
--- OUTSIDE RECORDS SUMMARY | 2022-03-18 11:35 | XMS_ITS | Encounter Summary ---
:1970 Author Organization [facility] [place] [address] Care Team Providers Name Role Phone Lolis Moss MD Primary Care Provider Reason for Visit Reason Comments Other seizure, panic attacks Medication Check panic attacks started to get worse when klonopin went from 3 to 2 Encounter Details Date Type Department Care Team Description 06/24/2016 Office Visit Internal Medicine at [facility], Chilango Gimenez MD [facility] [place] [address] CARE [phone] [place], [place] [address] (Wo rk) Social History Tobacco Use Types [...] Sign Reading Time Taken Comments Blood Pressure 138/68 06/24/2016 9:22 AM EST Pulse 87 06/24/2016 9:22 AM EST Temperature 36.4 ??C (97.6 ??F) 06/24/2016 9:22 AM EST Respiratory Rate 18 06/24/2016 9:22 AM EST Oxygen Saturation 100% 06/24/2016 9:22 AM EST Inhaled Oxygen Concentration - - Weight 73 kg (161 lb) 06/24/2016 9:22 AM EST Height 158 cm (5' 2.21) 06/24/2016 9:22 AM EST Body Mass Index 29.25 06/24/2016 9:22 AM EST documented in this encounter Progress Notes Lolis Moss MD - 06/24/2016 9:30 AM EST Had a spell Partner comes with her Was otto in [facility] With observation and normal labs She is very worried about the spell and having another He will be out of town next week He relates Came inside Daughter told him mom is in the closet acting weird She was rocking and saying 1 with both arms up with index fiinger He was able to get up and walk her to the restoom She quieted and lay down on the bed and rested for several hours But then started the rocking again Then asleep again Then rocking again Then lost urine He asked if she wanted to go to ER she said yes Was brought to ER Entire episode lasted 6-7 hrs During the spell she was able to repsond to him And did do some intentional movements Difficult getting her dressed He put clothes on but she took them off She says she does not remember Wednesday at all Ginna rembers being told to go to ER She has some recollection of what was happening in the ER--staff talking outside her room She felt she woke she thought it was a nightmare Lots of stress Having panic attacks at work Did not get the job that she wanted Was taking her meds regular--did not get them mixed up this time Has had two other spells similar One in February--after found out about her mother( in a way that was different from what she knew) One in Mar when moving Both under stressfull events Has not had little spells Or times when she awoke not knowing what had happened Has not had other spells And until the situation at work came up has been quite good, meds seemed to be working well Physically has been ok A miinor cold--took some deven D and tylneol sinus (not at the same time) a week or more before the episode Has had an MRI and EEG (awake) that were normal PE BP 138/68 (BP Location (NBP): Right arm, Patient Position: Sitting, BP Cuff Sizes: Adult (25-34 cm))Pulse 87 Temp 36.4 ??C (97.6 ??F) (Oral) Resp 18 Ht 158 cm (5' 2.21) Wt 73 kg (161 lb) SpO2 100% BMI 29.25 kg/m2 She looks tired And at times distressed as we talk She clearly works herself up, but is also able to calm herself CN II-XII intact, no drift, motor 5/5 all four. Sen intact to light touch. FNF and heel salcedo precise She is quite anxious, feeling hopeless and useless She is not suicidal (he agrees) and does not feel that a crisis eval is necessary, but is aware thatthat is an option A/P 1. The thinking has been that these are non epileptic spell and the description today is not particularly suggestive of a epileptic seizure. However, sorting this can some times be difficult and therefore did request a sleep deprived EEG. Did not request further DEPUTY TREASURER imaging. We talked about non epileptic spells and they often occurred in the setting of stress or strong emotions. That they generally are not life threatening and that treatment was treatment of the underlyinganxiety. Do not know if the spells continue to be problematic if some sort of EEG monitoring would be useful to document She is happy for me to copy my note to Drs. Munguia and Long documented in this encounter Plan of Treatment Upcoming Encounters Date Type Specialty Care Team Description 04/14/2022 Office Visit Neurology Cameron Alves MD [facility] [address] [place] [address] (Wo rk) documented as of this encounter Visit Diagnoses Diagnosis Spells Other convulsions documented in this encounter Care Teams Cylinder Die Machine Helper Relationship Specialty Start Date End Date Lolis Moss MD PCP - General General Internal Medicine 04/15/16 [address] [facility] [address] [facility] [place] [address] documented as of this encounter
--- OUTSIDE RECORDS SUMMARY | 2022-03-18 11:35 | XMS_ITS | Encounter Summary ---
:1970 Author Organization [facility] [place] [address] Care Team Providers Name Role Phone Lolis Moss MD Primary Care Provider Reason for Visit Reason Onset Date Comments Medication Refill 06/16/2016 Encounter Details Date Type Department Care Team Description 06/16/2016 Refill Internal Medicine at [facility] with aura and [address] without status [address] migrainosus, [place] [address] intractable [phone] Social History Tobacco Use Types Packs/Day Years [...] Cameron Alves MD [facility] [address] [place], [place] [address] (Wo rk) documented as of this encounter Visit Diagnoses Diagnosis Migraine with aura and without status mi grainosus, not intractable Migraine with aura, without mention of i ntractable migraine without mention of status migrainosus documented in this encounter Care Teams Voting Machine Repairer Relationship Specialty Start Date End Date Lolis Moss MD PCP - General General Internal Medicine 04/15/16 0 [facility] [place] [place] [address] documented as of this encounter
--- OUTSIDE RECORDS SUMMARY | 2022-03-18 11:35 | XMS_ITS | Encounter Summary ---
:1970 Author Organization [facility] [place] [address] Care Team Providers Name Role Phone Natalee Schmidt Primary Care Provider Reason for Referral Psychiatric (Routine) - Closed Specialty Diagnoses / Procedures Referred By Contact Refer red To Contact Psychiatry Diagnoses Depression, unspecified depression type Debra Munguia MD [facility] [address] [place], [place] [id number] [place] [phone] Fax: Referral ID Status Reason Start Date Expiration Date Visits V isits Requested Authorized [id number] Closed Consult, 04/07/2016 04/07/2017 1 1 Test & Treat Encounter Details Date Type Department Care Team Description 04/07/2016 Orders Only Psychiatry and Debra Munguia, Behavioral Health at [facility] [place] unspecified depression [facility] type [facility] [place] [phone] Social History Tobacco Use Types Packs/Day Years [...] Alves MD [facility] [address] [place] [address] (Wo rk) Scheduled Referrals Name Type Priority Associated Diagnoses Order S chedule Referral to Outpatient Referral Routine Depression, Ordered: Psychiatry unspecified 04/07/2016 depression type documented as of this encounter Visit Diagnoses Diagnosis Depression, unspecified depression type documented in this encounter Care Teams Betting Clerk Relationship Specialty Start Date End Date Natalee Schmidt PA PCP - General Family Medicine 04/07/16 04/14/16 [facility] [place] [address] documented as of this encounter
--- OUTSIDE RECORDS SUMMARY | 2022-03-18 11:35 | XMS_ITS | Encounter Summary ---
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 60 tablet Refills: 0 diphenhydrAMINE 25 mg Cap Commonly known as: BENADRYL Take 1 capsule by mouth every 6 hours as needed for Itching (take in the onset of migraine with thorazine). 25 mg Quantity: 30 capsule Refills: 0 DULoxetine 60 mg Cpdr Commonly known as: CYMBALTA Take 60 mg by mouth 2 times daily. 60 mg Refills: 0 esomeprazole 40 mg Cpdr Commonly known as: NexIUM Take 1 capsule by mouth 2 times daily. 40 mg Quantity: 60 capsule Refills: 12 folic acid 1 mg Tab Commonly known as: FOLVITE Take 1 tablet by mouth daily. 1 mg Quantity: 30 tablet Refills: 12 lisinopril 10 mg Tab Commonly known as: PRINIVIL;ZESTRIL Take 10 mg by mouth daily. 10 mg Refills: 0 multivitamin Tab Commonly known as: THERAGRAN Take 1 tablet by mouth daily. 1 tablet Refills: 0 omeprazole-sodium bicarbonate 20-1,680 mg Pack Commonly known as: ZEGERID Take 20 mg by mouth 2 times daily. 20 mg Refills: 0 ondansetron 4 mg Tab Commonly known as: ZOFRAN Take 1 tablet by mouth every 8 hours as needed for Nausea for up to 5 doses. 4 mg Quantity: 5 tablet Refills: 0 riboflavin (vitamin B2) 100 mg Tab Take 1 tablet by mouth daily. 100 mg Quantity: 30 tablet Refills: 11 rizatriptan 5 mg Tab Commonly known as: MAXALT Take 5 mg by mouth as needed for Migraine. May repeat in 2 hours if needed 5 mg Refills: 0 sucralfate 1 gram Tab Commonly known as: CARAFATE Take 1 tablet by mouth 4 times daily. 1 g Quantity: 120 tablet Refills: 5 topiramate 100 mg Tab Commonly known as: TOPAMAX Take 1 tablet by mouth nightly. 100 mg Quantity: 30 tablet Refills: 11 traZODone 50 mg Tab Commonly known as: DESYREL Take 50 mg by mouth nightly. 50 mg Refills: 0 STOPPED Medications lamoTRIgine 25 mg Tab Commonly known as: LaMICtal OLANZapine 10 mg Tab Commonly known as: ZyPREXA ondansetron 8 mg Tbdl Commonly known as: ZOFRAN-ODT scopolamine 1.5 mg (1 mg over 3 days) Pt3d Commonly known as: TRANSDERM-SCOP Updated Allergies/ADRs: No Known Allergies Immunizations Given this Hospitalization: Immunization History Administered Date(s) Administered ??? Influenza Vaccine w/Preservative, Split 05/15/2012 ??? Pneumococcal Polyvalent 23 06/16/2010 Smoking Status at Discharge: History Smoking Status ??? Former Smoker ??? Packs/day: 0.00 ??? Years: 15.00 ??? Types: Cigarettes ??? Quit date: 12/08/2002 Smokeless Tobacco ??? Never Used Instructions Given to Patient at Discharge: Patient Instructions PATIENT DISCHARGE INSTRUCTIONS Vital Signs: Vital Signs Temp: 36.5 ??C (97.7 ??F) Temp Source: Oral Heart Rate: 113 Heart Rate Source: NIBP Resp: 16 BP: (!) 167/104 BP Method: Auscultated BP Location: Left arm SpO2: 98 % O2 Device: None (Room air) Operations and Procedures: None. Important Lab Data: Recent Results (from the past 336 hour(s)) POCT urine Collection Time: 03/28/16 12:00 AM Result Value Ref Range POC Urine HCG Negative Negative - Negative POC Control Internal Controls Acceptable EKG 12 Lead Collection Time: 03/28/16 4:26 AM Result Value Ref Range Ventricular rate 95 BPM Atrial Rate 95 BPM P-R Interval 138 ms QRS Duration 84 ms Q-T Interval 366 ms QTC Calculated (Bezet) 459 ms Calculated P [place] 58 degrees Calculated R [place] 44 degrees Calculated T [place] 39 degrees INTERPRETATION Normal sinus rhythm Normal ECG No previous ECGs available Confirmed by MD Omer Douglas ([id number]) on 03/28/2016 5:30:53 PM Comprehensive metabolic panel (non-fasting) Collection Time: 03/28/16 4:32 AM Result Value Ref Range Glucose Lvl 84 65 - 199 mg/dL BUN 46 (H) 8 - 18 mg/dL Creatinine 5.09 (H) 0.70 - 1.20 mg/dL Sodium 144 135 - 145 mmol/L Potassium 3.9 3.5 - 5.0 mmol/L Chloride 110 (H) 98 - 107 mmol/L CO2 15 (L) 22 - 31 mmol/L Anion Gap 19 (H) 5 - 15 mmol/L Calcium 7.6 (L) 8.5 - 10.5 mg/dL Total Protein 5.9 (L) 6.1 - 8.0 gm/dL Albumin 3.2 3.2 - 5.2 gm/dL AST 16 0 - 30 unit/L ALT 10 0 - 30 unit/L Alk Phos 90 40 - 104 unit/L Total Bilirubin 0.2 0.2 - 1.3 mg/dL Bili, Direct 0.1 0.0 - 0.3 mg/dL Estimated GFR 9 (L) >=60 Magnesium Collection Time: 03/28/16 4:32 AM Result Value Ref Range Magnesium 0.82 0.69 - 1.07 mmol/L Phosphorus Collection Time: 03/28/16 4:32 AM Result Value Ref Range Phosphorus 4.8 (H) 2.5 - 4.5 mg/dL Urinalysis with reflex Culture Collection Time: 03/28/16 4:32 AM Result Value Ref Range Glucose UA Negative Negative mg/dL Protein UA Negative Negative mg/dL Bilirubin UA Negative Negative mg/dL Urobilinogen UA Normal Normal mg/dL pH UA 6.0 5.0 - 8.0 Blood UA Negative Negative mg/dL Ketones UA Negative Negative mg/dL Nitrite UA Negative Negative Leukocytes UA Trace (A) Negative mcL Appearance UA Hazy (A) Clear Spec Clark UA 1.006 1.002 - 1.030 Color UA Yellow Yellow RBC UA 1 0 - 4 /HPF WBC UA 9 (H) 0 - 5 /HPF Squam Epith UA 1 <=4 /HPF Culture Reflexed Yes Sodium, urine, random Collection Time: 03/28/16 4:32 AM Result Value Ref Range U Sodium 45 mmol/L Creatinine, urine, random Collection Time: 03/28/16 4:32 AM Result Value Ref Range U Creatinine 46 mg/dL Rapid Drug Screen, Urine Collection Time: 03/28/16 4:32 AM Result Value Ref Range PREM Marijuana Metabolites Scr None Detected None Detected PREM Phencyclidine Scr None Detected None Detected PREM Cocaine Metabolites Scr None Detected None Detected PREM Methamphetamines Scr None Detected None Detected PREM Opiates Scr None Detected None Detected PREM Amphetamines Scr None Detected None Detected PREM Benzodiazepines Scr None Detected None Detected PREM Tricyclics Scr None Detected None Detected PREM Methadone Scr None Detected None Detected PREM Barbiturates Scr None Detected None Detected PREM Oxycodone Scr None Detected None Detected PREM Propoxyphene Scr None Detected None Detected PREM Buprenorphine Scr None Detected None Detected PREM Adulterants Screen None Detected None Detected Acetaminophen level Collection Time: 03/28/16 4:32 AM Result Value Ref Range Acetamin Lvl <5 (L) 10 - 30 mg/L Salicylate Collection Time: 03/28/16 4:32 AM Result Value Ref Range Salicylate Lvl <20 mg/L Hemogram Collection Time: 03/28/16 4:32 AM Result Value Ref Range WBC 14.1 (H) 4.0 - 10.0 x10(3)/mcL RBC 3.50 (L) 3.93 - 5.22 x10(6)/mcL Hemoglobin 8.9 (L) 11.2 - 15.7 gm/dL Hematocrit 29.8 (L) 34.0 - 45.0 % MCV 85.1 79.0 - 94.0 fL MCH 25.4 (L) 26.6 - 32.2 pg MCHC 29.9 (L) 32.0 - 36.5 gm/dL Platelets 610 (H) 145 - 370 x10(3)/mcL RDWSD 58.9 (H) 35.0 - 46.0 fL RDWCV 18.7 (H) 10.9 - 14.4 % MPV 12.4 (H) 9.0 - 12.0 fL nRBC % Auto 0.0 % nRBC Abs Auto 0.000 0.000 - 0.012 x10(3)/mcL Differential, Automated Collection Time: 03/28/16 4:32 AM Result Value Ref Range Neutrophils % 69.8 % Neutr Abs (ANC) 9.82 (H) 1.50 - 6.30 x10(3)/mcL Lymphocytes % 12.1 % Lymphocytes Abs 1.7 1.0 - 3.6 x10(3)/mcL Monocytes % 8.2 % Monocyte Abs 1.2 (H) 0.2 - 1.0 x10(3)/mcL Eosinophils % 8.3 % Eosinophils Abs 1.2 (H) 0.0 - 0.5 x10(3)/mcL Basophils % 1.1 % Basophils Abs 0.2 0.0 - 0.2 x10(3)/mcL Immature Gran % 0.50 % Rosangela Gran Abs 0.07 (H) 0.00 - 0.05 x10(3)/mcL Osmolality Collection Time: 03/28/16 4:32 AM Result Value Ref Range Osmolality 313 (H) 275 - 295 mOsm/kg TSH Collection Time: 03/28/16 4:32 AM Result Value Ref Range TSH 1.77 0.27 - 4.20 mcIU/mL Blue Tube HOLD Collection Time: 03/28/16 4:32 AM Result Value Ref Range Blue Hold Sample in lab. [place]cantara Hold Collection Time: 03/28/16 4:32 AM Result Value Ref Range [place] Hold Sample in lab. Urine culture Collection Time: 03/28/16 4:32 AM Result Value Ref Range Urine Culture No growth (Less than 1,000 cfu/ml). Scan, Peripheral Blood Collection Time: 03/28/16 4:32 AM Result Value Ref Range Plat Estimate Increased RBC Morphology Abnormal Microcytes 1-5 /HPF Hypochromia Slight Ovalocytes 1-5 /HPF Giant Platelets Less than 1 /HPF CK Collection Time: 03/28/16 4:32 AM Result Value Ref Range CK, Total 67 0 - 160 unit/L BLOOD GAS 2 VENOUS Collection Time: 03/28/16 4:40 AM Result Value Ref Range pH Nnamdi 7.26 (CRIT) 7.32 - 7.42 pCO2 Nnamdi 33 (L) 41 - 51 mmHg pO2 Nnamdi 37 25 - 40 mmHg HCO3 Nnamdi 14.3 mmol/L BE Nnamdi -12.8 mmol/L Hgb Blood Gas 9.1 (L) 11.2 - 15.7 gm/dL O2HB Nnamdi 62.0 % COHB Nnamdi 0.8 % METHB Nnamdi 0.4 <=1.5 % Na Whole Blood 142 135 - 145 mmol/L K Whole Blood 3.3 (L) 3.5 - 5.0 mmol/L ICa Whole Blood 0.99 (L) 1.15 - 1.33 mmol/L CL Whole Blood 117 (H) 98 - 107 mmol/L Gluc Whole Bld 73 65 - 199 mg/dL Lactate WB 1.1 0.5 - 2.2 mmol/L BGas Source Venous Temp Nnamdi 37.0 Celsius POCT Glucose Collection Time: 03/28/16 9:04 AM Result Value Ref Range POC Glucose 77 65 - 199 mg/dL Basic Metabolic Panel (non-fasting) Collection Time: 03/28/16 2:19 PM Result Value Ref Range Glucose Lvl 78 65 - 199 mg/dL BUN 48 (H) 8 - 18 mg/dL Creatinine 5.04 (H) 0.70 - 1.20 mg/dL Sodium 142 135 - 145 mmol/L Potassium 4.1 3.5 - 5.0 mmol/L Chloride 110 (H) 98 - 107 mmol/L CO2 14 (L) 22 - 31 mmol/L Anion Gap 18 (H) 5 - 15 mmol/L Calcium 8.6 8.5 - 10.5 mg/dL Estimated GFR 9 (L) >=60 Basic Metabolic Panel (non-fasting) Collection Time: 03/28/16 9:50 PM Result Value Ref Range Glucose Lvl 106 65 - 199 mg/dL BUN 47 (H) 8 - 18 mg/dL Creatinine 4.34 (H) 0.70 - 1.20 mg/dL Sodium 142 135 - 145 mmol/L Potassium 3.2 (L) 3.5 - 5.0 mmol/L Chloride 109 (H) 98 - 107 mmol/L CO2 15 (L) 22 - 31 mmol/L Anion Gap 18 (H) 5 - 15 mmol/L Calcium 8.4 (L) 8.5 - 10.5 mg/dL Estimated GFR 11 (L) >=60 Basic Metabolic Panel (non-fasting) Collection Time: 03/29/16 5:51 AM Result Value Ref Range Glucose Lvl 93 65 - 199 mg/dL BUN 40 (H) 8 - 18 mg/dL Creatinine 3.65 (H) 0.70 - 1.20 mg/dL Sodium 146 (H) 135 - 145 mmol/L Potassium 3.5 3.5 - 5.0 mmol/L Chloride 114 (H) 98 - 107 mmol/L CO2 15 (L) 22 - 31 mmol/L Anion Gap 17 (H) 5 - 15 mmol/L Calcium 8.6 8.5 - 10.5 mg/dL Estimated GFR 14 (L) >=60 Phosphorus Collection Time: 03/29/16 5:51 AM Result Value Ref Range Phosphorus 4.1 2.5 - 4.5 mg/dL Hemogram Collection Time: 03/29/16 5:51 AM Result Value Ref Range WBC 9.7 4.0 - 10.0 x10(3)/mcL RBC 3.39 (L) 3.93 - 5.22 x10(6)/mcL Hemoglobin 8.8 (L) 11.2 - 15.7 gm/dL Hematocrit 28.1 (L) 34.0 - 45.0 % MCV 82.9 79.0 - 94.0 fL MCH 26.0 (L) 26.6 - 32.2 pg MCHC 31.3 (L) 32.0 - 36.5 gm/dL Platelets 531 (H) 145 - 370 x10(3)/mcL RDWSD 55.0 (H) 35.0 - 46.0 fL RDWCV 18.2 (H) 10.9 - 14.4 % MPV 12.7 (H) 9.0 - 12.0 fL nRBC % Auto 0.0 % nRBC Abs Auto 0.000 0.000 - 0.012 x10(3)/mcL Differential, Automated Collection Time: 03/29/16 5:51 AM Result Value Ref Range Neutrophils % 66.4 % Neutr Abs (ANC) 6.41 (H) 1.50 - 6.30 x10(3)/mcL Lymphocytes % 17.7 % Lymphocytes Abs 1.7 1.0 - 3.6 x10(3)/mcL Monocytes % 7.8 % Monocyte Abs 0.8 0.2 - 1.0 x10(3)/mcL Eosinophils % 6.6 % Eosinophils Abs 0.6 (H) 0.0 - 0.5 x10(3)/mcL Basophils % 1.3 % Basophils Abs 0.1 0.0 - 0.2 x10(3)/mcL Immature Gran % 0.20 % Rosangela Gran Abs 0.02 0.00 - 0.05 x10(3)/mcL Basic Metabolic Panel (non-fasting) Collection Time: 03/30/16 5:55 AM Result Value Ref Range Glucose Lvl 102 65 - 199 mg/dL BUN 29 (H) 8 - 18 mg/dL Creatinine 2.06 (H) 0.70 - 1.20 mg/dL Sodium 144 135 - 145 mmol/L Potassium 3.4 (L) 3.5 - 5.0 mmol/L Chloride 111 (H) 98 - 107 mmol/L CO2 17 (L) 22 - 31 mmol/L Anion Gap 16 (H) 5 - 15 mmol/L Calcium 8.7 8.5 - 10.5 mg/dL Estimated GFR 26 (L) >=60 Hemogram Collection Time: 03/30/16 5:55 AM Result Value Ref Range WBC 8.7 4.0 - 10.0 x10(3)/mcL RBC 3.13 (L) 3.93 - 5.22 x10(6)/mcL Hemoglobin 8.3 (L) 11.2 - 15.7 gm/dL Hematocrit 25.8 (L) 34.0 - 45.0 % MCV 82.4 79.0 - 94.0 fL MCH 26.5 (L) 26.6 - 32.2 pg MCHC 32.2 32.0 - 36.5 gm/dL Platelets 539 (H) 145 - 370 x10(3)/mcL RDWSD 54.2 (H) 35.0 - 46.0 fL RDWCV 18.0 (H) 10.9 - 14.4 % MPV 12.2 (H) 9.0 - 12.0 fL nRBC % Auto 0.0 % nRBC Abs Auto 0.000 0.000 - 0.012 x10(3)/mcL Differential, Automated Collection Time: 03/30/16 5:55 AM Result Value Ref Range Neutrophils % 60.5 % Neutr Abs (ANC) 5.27 1.50 - 6.30 x10(3)/mcL Lymphocytes % 18.3 % Lymphocytes Abs 1.6 1.0 - 3.6 x10(3)/mcL Monocytes % 8.9 % Monocyte Abs 0.8 0.2 - 1.0 x10(3)/mcL Eosinophils % 10.5 % Eosinophils Abs 0.9 (H) 0.0 - 0.5 x10(3)/mcL Basophils % 1.5 % Basophils Abs 0.1 0.0 - 0.2 x10(3)/mcL Immature Gran % 0.30 % Rosangela Gran Abs 0.03 0.00 - 0.05 x10(3)/mcL Basic Metabolic Panel (non-fasting) Collection Time: 03/31/16 5:02 AM Result Value Ref Range Glucose Lvl 116 65 - 199 mg/dL BUN 16 8 - 18 mg/dL Creatinine 1.37 (H) 0.70 - 1.20 mg/dL Sodium 141 135 - 145 mmol/L Potassium 3.4 (L) 3.5 - 5.0 mmol/L Chloride 107 98 - 107 mmol/L CO2 19 (L) 22 - 31 mmol/L Anion Gap 15 5 - 15 mmol/L Calcium 8.8 8.5 - 10.5 mg/dL Estimated GFR 42 (L) >=60 Hemogram Collection Time: 03/31/16 5:02 AM Result Value Ref Range WBC 7.3 4.0 - 10.0 x10(3)/mcL RBC 3.12 (L) 3.93 - 5.22 x10(6)/mcL Hemoglobin 8.3 (L) 11.2 - 15.7 gm/dL Hematocrit 25.6 (L) 34.0 - 45.0 % MCV 82.1 79.0 - 94.0 fL MCH 26.6 26.6 - 32.2 pg MCHC 32.4 32.0 - 36.5 gm/dL Platelets 516 (H) 145 - 370 x10(3)/mcL RDWSD 52.5 (H) 35.0 - 46.0 fL RDWCV 17.7 (H) 10.9 - 14.4 % MPV 12.6 (H) 9.0 - 12.0 fL nRBC % Auto 0.0 % nRBC Abs Auto 0.000 0.000 - 0.012 x10(3)/mcL Differential, Automated Collection Time: 03/31/16 5:02 AM Result Value Ref Range Neutrophils % 63.7 % Neutr Abs (ANC) 4.65 1.50 - 6.30 x10(3)/mcL Lymphocytes % 22.6 % Lymphocytes Abs 1.6 1.0 - 3.6 x10(3)/mcL Monocytes % 8.3 % Monocyte Abs 0.6 0.2 - 1.0 x10(3)/mcL Eosinophils % 4.1 % Eosinophils Abs 0.3 0.0 - 0.5 x10(3)/mcL Basophils % 1.2 % Basophils Abs 0.1 0.0 - 0.2 x10(3)/mcL Immature Gran % 0.10 % Rosangela Gran Abs 0.01 0.00 - 0.05 x10(3)/mcL Basic Metabolic Panel (non-fasting) Collection Time: 04/01/16 7:59 AM Result Value Ref Range Glucose Lvl 89 65 - 199 mg/dL BUN 10 8 - 18 mg/dL Creatinine 0.98 0.70 - 1.20 mg/dL Sodium 144 135 - 145 mmol/L Potassium 2.9 (CRIT) 3.5 - 5.0 mmol/L Chloride 107 98 - 107 mmol/L CO2 23 22 - 31 mmol/L Anion Gap 14 5 - 15 mmol/L Calcium 8.8 8.5 - 10.5 mg/dL Estimated GFR >60 >=60 Basic Metabolic Panel (non-fasting) Collection Time: 04/02/16 8:19 AM Result Value Ref Range Glucose Lvl 85 65 - 199 mg/dL BUN 12 8 - 18 mg/dL Creatinine 0.96 0.70 - 1.20 mg/dL Sodium 144 135 - 145 mmol/L Potassium 3.6 3.5 - 5.0 mmol/L Chloride 107 98 - 107 mmol/L CO2 22 22 - 31 mmol/L Anion Gap 15 5 - 15 mmol/L Calcium 9.7 8.5 - 10.5 mg/dL Estimated GFR >60 >=60 EKG 12 Lead Collection Time: 04/02/16 8:34 AM Result Value Ref Range Ventricular rate 85 BPM Atrial Rate 85 BPM P-R Interval 126 ms QRS Duration 74 ms Q-T Interval 344 ms QTC Calculated (Bezet) 409 ms Calculated P [place] 39 degrees Calculated R [place] 15 degrees Calculated T [place] 28 degrees INTERPRETATION Normal sinus rhythm Normal ECG When compared with ECG of 28-MAR-2016 04:26, QT has shortened Confirmed by MD Scooby, Sophie ([id number]) on 04/02/2016 11:36:33 AM Basic Metabolic Panel (non-fasting) Collection Time: 04/03/16 6:39 AM Result Value Ref Range Glucose Lvl 99 65 - 199 mg/dL BUN 14 8 - 18 mg/dL Creatinine 1.13 0.70 - 1.20 mg/dL Sodium 146 (H) 135 - 145 mmol/L Potassium 4.0 3.5 - 5.0 mmol/L Chloride 107 98 - 107 mmol/L CO2 19 (L) 22 - 31 mmol/L Anion Gap 20 (H) 5 - 15 mmol/L Calcium 10.5 8.5 - 10.5 mg/dL Estimated GFR 53 (L) >=60 Iron and TIBC Collection Time: 04/03/16 6:39 AM Result Value Ref Range Iron 41 30 - 150 mcg/dL TIBC 398 250 - 450 mcg/dL Iron Saturation 10 (L) 20 - 50 % Ferritin Collection Time: 04/03/16 12:44 PM Result Value Ref Range Ferritin 15 15 - 150 ng/mL Hemogram Collection Time: 04/03/16 12:44 PM Result Value Ref Range WBC 7.9 4.0 - 10.0 x10(3)/mcL RBC 4.13 3.93 - 5.22 x10(6)/mcL Hemoglobin 10.6 (L) 11.2 - 15.7 gm/dL Hematocrit 35.5 34.0 - 45.0 % MCV 86.0 79.0 - 94.0 fL MCH 25.7 (L) 26.6 - 32.2 pg MCHC 29.9 (L) 32.0 - 36.5 gm/dL Platelets 635 (H) 145 - 370 x10(3)/mcL RDWSD 54.2 (H) 35.0 - 46.0 fL RDWCV 17.6 (H) 10.9 - 14.4 % MPV 12.3 (H) 9.0 - 12.0 fL nRBC % Auto 0.0 % nRBC Abs Auto 0.000 0.000 - 0.012 x10(3)/mcL Differential, Automated Collection Time: 04/03/16 12:44 PM Result Value Ref Range Neutrophils % 51.5 % Neutr Abs (ANC) 4.08 1.50 - 6.30 x10(3)/mcL Lymphocytes % 22.4 % Lymphocytes Abs 1.8 1.0 - 3.6 x10(3)/mcL Monocytes % 8.9 % Monocyte Abs 0.7 0.2 - 1.0 x10(3)/mcL Eosinophils % 14.1 % Eosinophils Abs 1.1 (H) 0.0 - 0.5 x10(3)/mcL Basophils % 2.8 % Basophils Abs 0.2 0.0 - 0.2 x10(3)/mcL Immature Gran % 0.30 % Rosangela Gran Abs 0.02 0.00 - 0.05 x10(3)/mcL Urinalysis without microscopic Collection Time: 04/03/16 3:47 PM Result Value Ref Range Glucose UA Negative Negative mg/dL Protein UA Negative Negative mg/dL Bilirubin UA Negative Negative mg/dL Urobilinogen UA Normal Normal mg/dL pH UA 7.0 5.0 - 8.0 Blood UA Negative Negative mg/dL Ketones UA Negative Negative mg/dL Nitrite UA Negative Negative Leukocytes UA Negative Negative mcL Appearance UA Clear Clear Spec Clark UA 1.005 1.002 - 1.030 Color UA Yellow Yellow Pending Lab Data at Discharge: None. Discharge Disposition: Home. Primary Care Physician: GARCIA APONTE MD [phone] Special Physician Instructions: Lisseth was found to have anemia during this hospitalization that is likely due to iron deficiency. She was started on iron tablets. Special Instructions Provided to Lisseth Boone: Call your doctor, your local mental health center, or your local emergency room if you develop worsening symptoms of depression, anxiety, thoughts of harming yourself, thoughts of harming others, or any other decline in your overall condition. [facility] Emergency Services: [facility] Human Services / [phone]. [facility] Emergency Services: [phone] [facility] Central Access Services: [phone] [facility] Main Line: [phone] Activity level: no restrictions from psychiatry Diet: no restrictions from psychiatry Driving: do not drive if sedated by medications Medications have been reviewed with the patient and the patient understands the use and side effectsof these medications as evidenced by discussions on interdisciplinary rounds. Discharge References/Attachments None Discharge to: Home. Discharge Condition/Prognosis: Satisfactory condition. Prognosis is dependent on patient's participation in ongoing treatment and adherence with prescribed medications. Signed: Debra Munguia MD 04/04/2016 Inpatient Provider Contact Information: Emergency Services (Crisis Line): [phone] [facility]: [phone] Hospital Main Line: [phone] Associated attestation - Denae Easton MD - 04/21/2016 12:53 PM EDT Patient was examined by Dr. Cooper Bee on the day of discharge. Per his note from the day of discharge: ''Medically-induced delirium ?? Resolved. Will stop haldol as patient is no longer delirious or confused. Plan for discharge today. Educated the patient on following up with her neurologist for further evaluation of migraine medications as they may have contributed to her delirium.'' Per my note from 04/03/16: ''She denied any low/irritable/euphoric mood. She denied hopelessness/worthlessness. She reported feeling 'much better'. She noted she is able to think clearly. She denied racing thoughts. ? she exhibited good eye contact, was well engaged, calm, pleasant, cooperative, goal directed, logical, no FOI, coherent with spontaneous speech, smiled appropriately with fair insight and judgement. Not seen responding to internal stimuli. No increase in goal directed activity/hypersexuality noted. alert and oriented x4. ? Obtained collateral info from her family which confirmed that patient is much improved. ?? [facility] medicine team due to low Hb: 8.3 which was repeated today and HB improved to 10.6 per repeat CBC today. Repeated UA. ?? Provided psychoeducation to her about her diagnoses. On review of her recent hospitalizations' history from [facility], patient had been exhibiting delirium, secondary to medication toxicity (anticholinergic). She did not meet criteria for bipolar disorder or major depressive disorder with psychosis. Her visual hallucinations and acute mental status and personality changes are deemed to be secondary to delirium (now resolved).'' I agree with the discharge summary, as written. ?? documented in this encounter Discharge Instructions Discharge InstructionsZabrina Monroe E - 04/03/2016 1:49 PM EDT We have made the following appointments for you. Please contact the providers directly if you need to reschedule. If the provider is new to you, please bring your insurance card and plan to arrive 15 minutes earlier than the appointment for new patient paperwork. If you have any questions after discharge regarding your discharge plan, please call Zabrina at [phone]. Primary Care: previous: KOLE HARMAN MD [address] [place] [address] / [place] [address] fax: [phone] Establishing[facility] Future Appointments Date Time Provider Department [place] 04/07/2016 11:00 AM Garcia Aponte MD [facility] 04/08/2016 8:30 AM Cameron Alves MD [facility] Psychiatry/Therapy: referral in to resident med clinic at [facility] 5[facility]. They will call you when able to schedule senior living and immediate psych follow up will be at [facility] - intake appt will be on April 13 10:30 - 12 with Tulio Becerra NP [address] [place], [place] F: [phone] Patient InstructionsDebra Munguia MD - 04/04/2016 8:36 AM EDT PATIENT DISCHARGE INSTRUCTIONS Vital Signs: Vital Signs Temp: 36.5 ??C (97.7 ??F) Temp Source: Oral Heart Rate: 113 Heart Rate Source: NIBP Resp: 16 BP: (!) 167/104 BP Method: Auscultated BP Location: Left arm SpO2: 98 % O2 Device: None (Room air) Operations and Procedures: None. Important Lab Data: Recent Results (from the past 336 hour(s)) POCT urine Collection Time: 03/28/16 12:00 AM Result Value Ref Range POC Urine HCG Negative Negative - Negative POC Control Internal Controls Acceptable EKG 12 Lead Collection Time: 03/28/16 4:26 AM Result Value Ref Range Ventricular rate 95 BPM Atrial Rate 95 BPM P-R Interval 138 ms QRS Duration 84 ms Q-T Interval 366 ms QTC Calculated (Bezet) 459 ms Calculated P [place] 58 degrees Calculated R [place] 44 degrees Calculated T [place] 39 degrees INTERPRETATION Normal sinus rhythm Normal ECG No previous ECGs available Confirmed by MD Omer Douglas ([id number]) on 03/28/2016 5:30:53 PM Comprehensive metabolic panel (non-fasting) Collection Time: 03/28/16 4:32 AM Result Value Ref Range Glucose Lvl 84 65 - 199 mg/dL BUN 46 (H) 8 - 18 mg/dL Creatinine 5.09 (H) 0.70 - 1.20 mg/dL Sodium 144 135 - 145 mmol/L Potassium 3.9 3.5 - 5.0 mmol/L Chloride 110 (H) 98 - 107 mmol/L CO2 15 (L) 22 - 31 mmol/L Anion Gap 19 (H) 5 - 15 mmol/L Calcium 7.6 (L) 8.5 - 10.5 mg/dL Total Protein 5.9 (L) 6.1 - 8.0 gm/dL Albumin 3.2 3.2 - 5.2 gm/dL AST 16 0 - 30 unit/L ALT 10 0 - 30 unit/L Alk Phos 90 40 - 104 unit/L Total Bilirubin 0.2 0.2 - 1.3 mg/dL Bili, Direct 0.1 0.0 - 0.3 mg/dL Estimated GFR 9 (L) >=60 Magnesium Collection Time: 03/28/16 4:32 AM Result Value Ref Range Magnesium 0.82 0.69 - 1.07 mmol/L Phosphorus Collection Time: 03/28/16 4:32 AM Result Value Ref Range Phosphorus 4.8 (H) 2.5 - 4.5 mg/dL Urinalysis with reflex Culture Collection Time: 03/28/16 4:32 AM Result Value Ref Range Glucose UA Negative Negative mg/dL Protein UA Negative Negative mg/dL Bilirubin UA Negative Negative mg/dL Urobilinogen UA Normal Normal mg/dL pH UA 6.0 5.0 - 8.0 Blood UA Negative Negative mg/dL Ketones UA Negative Negative mg/dL Nitrite UA Negative Negative Leukocytes UA Trace (A) Negative mcL Appearance UA Hazy (A) Clear Spec Clark UA 1.006 1.002 - 1.030 Color UA Yellow Yellow RBC UA 1 0 - 4 /HPF WBC UA 9 (H) 0 - 5 /HPF Squam Epith UA 1 <=4 /HPF Culture Reflexed Yes Sodium, urine, random Collection Time: 03/28/16 4:32 AM Result Value Ref Range U Sodium 45 mmol/L Creatinine, urine, random Collection Time: 03/28/16 4:32 AM Result Value Ref Range U Creatinine 46 mg/dL Rapid Drug Screen, Urine Collection Time: 03/28/16 4:32 AM Result Value Ref Range PREM Marijuana Metabolites Scr None Detected None Detected PREM Phencyclidine Scr None Detected None Detected PREM Cocaine Metabolites Scr None Detected None Detected PREM Methamphetamines Scr None Detected None Detected PREM Opiates Scr None Detected None Detected PREM Amphetamines Scr None Detected None Detected PREM Benzodiazepines Scr None Detected None Detected PREM Tricyclics Scr None Detected None Detected PREM Methadone Scr None Detected None Detected PREM Barbiturates Scr None Detected None Detected PREM Oxycodone Scr None Detected None Detected PREM Propoxyphene Scr None Detected None Detected PREM Buprenorphine Scr None Detected None Detected PREM Adulterants Screen None Detected None Detected Acetaminophen level Collection Time: 03/28/16 4:32 AM Result Value Ref Range Acetamin Lvl <5 (L) 10 - 30 mg/L Salicylate Collection Time: 03/28/16 4:32 AM Result Value Ref Range Salicylate Lvl <20 mg/L Hemogram Collection Time: 03/28/16 4:32 AM Result Value Ref Range WBC 14.1 (H) 4.0 - 10.0 x10(3)/mcL RBC 3.50 (L) 3.93 - 5.22 x10(6)/mcL Hemoglobin 8.9 (L) 11.2 - 15.7 gm/dL Hematocrit 29.8 (L) 34.0 - 45.0 % MCV 85.1 79.0 - 94.0 fL MCH 25.4 (L) 26.6 - 32.2 pg MCHC 29.9 (L) 32.0 - 36.5 gm/dL Platelets 610 (H) 145 - 370 x10(3)/mcL RDWSD 58.9 (H) 35.0 - 46.0 fL RDWCV 18.7 (H) 10.9 - 14.4 % MPV 12.4 (H) 9.0 - 12.0 fL nRBC % Auto 0.0 % nRBC Abs Auto 0.000 0.000 - 0.012 x10(3)/mcL Differential, Automated Collection Time: 03/28/16 4:32 AM Result Value Ref Range Neutrophils % 69.8 % Neutr Abs (ANC) 9.82 (H) 1.50 - 6.30 x10(3)/mcL Lymphocytes % 12.1 % Lymphocytes Abs 1.7 1.0 - 3.6 x10(3)/mcL Monocytes % 8.2 % Monocyte Abs 1.2 (H) 0.2 - 1.0 x10(3)/mcL Eosinophils % 8.3 % Eosinophils Abs 1.2 (H) 0.0 - 0.5 x10(3)/mcL Basophils % 1.1 % Basophils Abs 0.2 0.0 - 0.2 x10(3)/mcL Immature Gran % 0.50 % Rosangela Gran Abs 0.07 (H) 0.00 - 0.05 x10(3)/mcL Osmolality Collection Time: 03/28/16 4:32 AM Result Value Ref Range Osmolality 313 (H) 275 - 295 mOsm/kg TSH Collection Time: 03/28/16 4:32 AM Result Value Ref Range TSH 1.77 0.27 - 4.20 mcIU/mL Blue Tube HOLD Collection Time: 03/28/16 4:32 AM Result Value Ref Range Blue Hold Sample in lab. [place] Hold Collection Time: 03/28/16 4:32 AM Result Value Ref Range [place] Hold Sample in lab. Urine culture Collection Time: 03/28/16 4:32 AM Result Value Ref Range Urine Culture No growth (Less than 1,000 cfu/ml). Scan, Peripheral Blood Collection Time: 03/28/16 4:32 AM Result Value Ref Range Plat Estimate Increased RBC Morphology Abnormal Microcytes 1-5 /HPF Hypochromia Slight Ovalocytes 1-5 /HPF Giant Platelets Less than 1 /HPF CK Collection Time: 03/28/16 4:32 AM Result Value Ref Range CK, Total 67 0 - 160 unit/L BLOOD GAS 2 VENOUS Collection Time: 03/28/16 4:40 AM Result Value Ref Range pH Nnamdi 7.26 (CRIT) 7.32 - 7.42 pCO2 Nnamdi 33 (L) 41 - 51 mmHg pO2 Nnamdi 37 25 - 40 mmHg HCO3 Nnamdi 14.3 mmol/L BE Nnamdi -12.8 mmol/L Hgb Blood Gas 9.1 (L) 11.2 - 15.7 gm/dL O2HB Nnamdi 62.0 % COHB Nnamdi 0.8 % METHB Nnamdi 0.4 <=1.5 % Na Whole Blood 142 135 - 145 mmol/L K Whole Blood 3.3 (L) 3.5 - 5.0 mmol/L ICa Whole Blood 0.99 (L) 1.15 - 1.33 mmol/L CL Whole Blood 117 (H) 98 - 107 mmol/L Gluc Whole Bld 73 65 - 199 mg/dL Lactate WB 1.1 0.5 - 2.2 mmol/L BGas Source Venous Temp Nnamdi 37.0 Celsius POCT Glucose Collection Time: 03/28/16 9:04 AM Result Value Ref Range POC Glucose 77 65 - 199 mg/dL Basic Metabolic Panel (non-fasting) Collection Time: 03/28/16 2:19 PM Result Value Ref Range Glucose Lvl 78 65 - 199 mg/dL BUN 48 (H) 8 - 18 mg/dL Creatinine 5.04 (H) 0.70 - 1.20 mg/dL Sodium 142 135 - 145 mmol/L Potassium 4.1 3.5 - 5.0 mmol/L Chloride 110 (H) 98 - 107 mmol/L CO2 14 (L) 22 - 31 mmol/L Anion Gap 18 (H) 5 - 15 mmol/L Calcium 8.6 8.5 - 10.5 mg/dL Estimated GFR 9 (L) >=60 Basic Metabolic Panel (non-fasting) Collection Time: 03/28/16 9:50 PM Result Value Ref Range Glucose Lvl 106 65 - 199 mg/dL BUN 47 (H) 8 - 18 mg/dL Creatinine 4.34 (H) 0.70 - 1.20 mg/dL Sodium 142 135 - 145 mmol/L Potassium 3.2 (L) 3.5 - 5.0 mmol/L Chloride 109 (H) 98 - 107 mmol/L CO2 15 (L) 22 - 31 mmol/L Anion Gap 18 (H) 5 - 15 mmol/L Calcium 8.4 (L) 8.5 - 10.5 mg/dL Estimated GFR 11 (L) >=60 Basic Metabolic Panel (non-fasting) Collection Time: 03/29/16 5:51 AM Result Value Ref Range Glucose Lvl 93 65 - 199 mg/dL BUN 40 (H) 8 - 18 mg/dL Creatinine 3.65 (H) 0.70 - 1.20 mg/dL Sodium 146 (H) 135 - 145 mmol/L Potassium 3.5 3.5 - 5.0 mmol/L Chloride 114 (H) 98 - 107 mmol/L CO2 15 (L) 22 - 31 mmol/L Anion Gap 17 (H) 5 - 15 mmol/L Calcium 8.6 8.5 - 10.5 mg/dL Estimated GFR 14 (L) >=60 Phosphorus Collection Time: 03/29/16 5:51 AM Result Value Ref Range Phosphorus 4.1 2.5 - 4.5 mg/dL Hemogram Collection Time: 03/29/16 5:51 AM Result Value Ref Range WBC 9.7 4.0 - 10.0 x10(3)/mcL RBC 3.39 (L) 3.93 - 5.22 x10(6)/mcL Hemoglobin 8.8 (L) 11.2 - 15.7 gm/dL Hematocrit 28.1 (L) 34.0 - 45.0 % MCV 82.9 79.0 - 94.0 fL MCH 26.0 (L) 26.6 - 32.2 pg MCHC 31.3 (L) 32.0 - 36.5 gm/dL Platelets 531 (H) 145 - 370 x10(3)/mcL RDWSD 55.0 (H) 35.0 - 46.0 fL RDWCV 18.2 (H) 10.9 - 14.4 % MPV 12.7 (H) 9.0 - 12.0 fL nRBC % Auto 0.0 % nRBC Abs Auto 0.000 0.000 - 0.012 x10(3)/mcL Differential, Automated Collection Time: 03/29/16 5:51 AM Result Value Ref Range Neutrophils % 66.4 % Neutr Abs (ANC) 6.41 (H) 1.50 - 6.30 x10(3)/mcL Lymphocytes % 17.7 % Lymphocytes Abs 1.7 1.0 - 3.6 x10(3)/mcL Monocytes % 7.8 % Monocyte Abs 0.8 0.2 - 1.0 x10(3)/mcL Eosinophils % 6.6 % Eosinophils Abs 0.6 (H) 0.0 - 0.5 x10(3)/mcL Basophils % 1.3 % Basophils Abs 0.1 0.0 - 0.2 x10(3)/mcL Immature Gran % 0.20 % Rosangela Gran Abs 0.02 0.00 - 0.05 x10(3)/mcL Basic Metabolic Panel (non-fasting) Collection Time: 03/30/16 5:55 AM Result Value Ref Range Glucose Lvl 102 65 - 199 mg/dL BUN 29 (H) 8 - 18 mg/dL Creatinine 2.06 (H) 0.70 - 1.20 mg/dL Sodium 144 135 - 145 mmol/L Potassium 3.4 (L) 3.5 - 5.0 mmol/L Chloride 111 (H) 98 - 107 mmol/L CO2 17 (L) 22 - 31 mmol/L Anion Gap 16 (H) 5 - 15 mmol/L Calcium 8.7 8.5 - 10.5 mg/dL Estimated GFR 26 (L) >=60 Hemogram Collection Time: 03/30/16 5:55 AM Result Value Ref Range WBC 8.7 4.0 - 10.0 x10(3)/mcL RBC 3.13 (L) 3.93 - 5.22 x10(6)/mcL Hemoglobin 8.3 (L) 11.2 - 15.7 gm/dL Hematocrit 25.8 (L) 34.0 - 45.0 % MCV 82.4 79.0 - 94.0 fL MCH 26.5 (L) 26.6 - 32.2 pg MCHC 32.2 32.0 - 36.5 gm/dL Platelets 539 (H) 145 - 370 x10(3)/mcL RDWSD 54.2 (H) 35.0 - 46.0 fL RDWCV 18.0 (H) 10.9 - 14.4 % MPV 12.2 (H) 9.0 - 12.0 fL nRBC % Auto 0.0 % nRBC Abs Auto 0.000 0.000 - 0.012 x10(3)/mcL Differential, Automated Collection Time: 03/30/16 5:55 AM Result Value Ref Range Neutrophils % 60.5 % Neutr Abs (ANC) 5.27 1.50 - 6.30 x10(3)/mcL Lymphocytes % 18.3 % Lymphocytes Abs 1.6 1.0 - 3.6 x10(3)/mcL Monocytes % 8.9 % Monocyte Abs 0.8 0.2 - 1.0 x10(3)/mcL Eosinophils % 10.5 % Eosinophils Abs 0.9 (H) 0.0 - 0.5 x10(3)/mcL Basophils % 1.5 % Basophils Abs 0.1 0.0 - 0.2 x10(3)/mcL Immature Gran % 0.30 % Rosangela Gran Abs 0.03 0.00 - 0.05 x10(3)/mcL Basic Metabolic Panel (non-fasting) Collection Time: 03/31/16 5:02 AM Result Value Ref Range Glucose Lvl 116 65 - 199 mg/dL BUN 16 8 - 18 mg/dL Creatinine 1.37 (H) 0.70 - 1.20 mg/dL Sodium 141 135 - 145 mmol/L Potassium 3.4 (L) 3.5 - 5.0 mmol/L Chloride 107 98 - 107 mmol/L CO2 19 (L) 22 - 31 mmol/L Anion Gap 15 5 - 15 mmol/L Calcium 8.8 8.5 - 10.5 mg/dL Estimated GFR 42 (L) >=60 Hemogram Collection Time: 03/31/16 5:02 AM Result Value Ref Range WBC 7.3 4.0 - 10.0 x10(3)/mcL RBC 3.12 (L) 3.93 - 5.22 x10(6)/mcL Hemoglobin 8.3 (L) 11.2 - 15.7 gm/dL Hematocrit 25.6 (L) 34.0 - 45.0 % MCV 82.1 79.0 - 94.0 fL MCH 26.6 26.6 - 32.2 pg MCHC 32.4 32.0 - 36.5 gm/dL Platelets 516 (H) 145 - 370 x10(3)/mcL RDWSD 52.5 (H) 35.0 - 46.0 fL RDWCV 17.7 (H) 10.9 - 14.4 % MPV 12.6 (H) 9.0 - 12.0 fL nRBC % Auto 0.0 % nRBC Abs Auto 0.000 0.000 - 0.012 x10(3)/mcL Differential, Automated Collection Time: 03/31/16 5:02 AM Result Value Ref Range Neutrophils % 63.7 % Neutr Abs (ANC) 4.65 1.50 - 6.30 x10(3)/mcL Lymphocytes % 22.6 % Lymphocytes Abs 1.6 1.0 - 3.6 x10(3)/mcL Monocytes % 8.3 % Monocyte Abs 0.6 0.2 - 1.0 x10(3)/mcL Eosinophils % 4.1 % Eosinophils Abs 0.3 0.0 - 0.5 x10(3)/mcL Basophils % 1.2 % Basophils Abs 0.1 0.0 - 0.2 x10(3)/mcL Immature Gran % 0.10 % Rosangela Gran Abs 0.01 0.00 - 0.05 x10(3)/mcL Basic Metabolic Panel (non-fasting) Collection Time: 04/01/16 7:59 AM Result Value Ref Range Glucose Lvl 89 65 - 199 mg/dL BUN 10 8 - 18 mg/dL Creatinine 0.98 0.70 - 1.20 mg/dL Sodium 144 135 - 145 mmol/L Potassium 2.9 (CRIT) 3.5 - 5.0 mmol/L Chloride 107 98 - 107 mmol/L CO2 23 22 - 31 mmol/L Anion Gap 14 5 - 15 mmol/L Calcium 8.8 8.5 - 10.5 mg/dL Estimated GFR >60 >=60 Basic Metabolic Panel (non-fasting) Collection Time: 04/02/16 8:19 AM Result Value Ref Range Glucose Lvl 85 65 - 199 mg/dL BUN 12 8 - 18 mg/dL Creatinine 0.96 0.70 - 1.20 mg/dL Sodium 144 135 - 145 mmol/L Potassium 3.6 3.5 - 5.0 mmol/L Chloride 107 98 - 107 mmol/L CO2 22 22 - 31 mmol/L Anion Gap 15 5 - 15 mmol/L Calcium 9.7 8.5 - 10.5 mg/dL Estimated GFR >60 >=60 EKG 12 Lead Collection Time: 04/02/16 8:34 AM Result Value Ref Range Ventricular rate 85 BPM Atrial Rate 85 BPM P-R Interval 126 ms QRS Duration 74 ms Q-T Interval 344 ms QTC Calculated (Bezet) 409 ms Calculated P [place] 39 degrees Calculated R [place] 15 degrees Calculated T [place] 28 degrees INTERPRETATION Normal sinus rhythm Normal ECG When compared with ECG of 28-MAR-2016 04:26, QT has shortened Confirmed by MD Scooby, Sophie ([id number]) on 04/02/2016 11:36:33 AM Basic Metabolic Panel (non-fasting) Collection Time: 04/03/16 6:39 AM Result Value Ref Range Glucose Lvl 99 65 - 199 mg/dL BUN 14 8 - 18 mg/dL Creatinine 1.13 0.70 - 1.20 mg/dL Sodium 146 (H) 135 - 145 mmol/L Potassium 4.0 3.5 - 5.0 mmol/L Chloride 107 98 - 107 mmol/L CO2 19 (L) 22 - 31 mmol/L Anion Gap 20 (H) 5 - 15 mmol/L Calcium 10.5 8.5 - 10.5 mg/dL Estimated GFR 53 (L) >=60 Iron and TIBC Collection Time: 04/03/16 6:39 AM Result Value Ref Range Iron 41 30 - 150 mcg/dL TIBC 398 250 - 450 mcg/dL Iron Saturation 10 (L) 20 - 50 % Ferritin Collection Time: 04/03/16 12:44 PM Result Value Ref Range Ferritin 15 15 - 150 ng/mL Hemogram Collection Time: 04/03/16 12:44 PM Result Value Ref Range WBC 7.9 4.0 - 10.0 x10(3)/mcL RBC 4.13 3.93 - 5.22 x10(6)/mcL Hemoglobin 10.6 (L) 11.2 - 15.7 gm/dL Hematocrit 35.5 34.0 - 45.0 % MCV 86.0 79.0 - 94.0 fL MCH 25.7 (L) 26.6 - 32.2 pg MCHC 29.9 (L) 32.0 - 36.5 gm/dL Platelets 635 (H) 145 - 370 x10(3)/mcL RDWSD 54.2 (H) 35.0 - 46.0 fL RDWCV 17.6 (H) 10.9 - 14.4 % MPV 12.3 (H) 9.0 - 12.0 fL nRBC % Auto 0.0 % nRBC Abs Auto 0.000 0.000 - 0.012 x10(3)/mcL Differential, Automated Collection Time: 04/03/16 12:44 PM Result Value Ref Range Neutrophils % 51.5 % Neutr Abs (ANC) 4.08 1.50 - 6.30 x10(3)/mcL Lymphocytes % 22.4 % Lymphocytes Abs 1.8 1.0 - 3.6 x10(3)/mcL Monocytes % 8.9 % Monocyte Abs 0.7 0.2 - 1.0 x10(3)/mcL Eosinophils % 14.1 % Eosinophils Abs 1.1 (H) 0.0 - 0.5 x10(3)/mcL Basophils % 2.8 % Basophils Abs 0.2 0.0 - 0.2 x10(3)/mcL Immature Gran % 0.30 % Rosangela Gran Abs 0.02 0.00 - 0.05 x10(3)/mcL Urinalysis without microscopic Collection Time: 04/03/16 3:47 PM Result Value Ref Range Glucose UA Negative Negative mg/dL Protein UA Negative Negative mg/dL Bilirubin UA Negative Negative mg/dL Urobilinogen UA Normal Normal mg/dL pH UA 7.0 5.0 - 8.0 Blood UA Negative Negative mg/dL Ketones UA Negative Negative mg/dL Nitrite UA Negative Negative Leukocytes UA Negative Negative mcL Appearance UA Clear Clear Spec Clark UA 1.005 1.002 - 1.030 Color UA Yellow Yellow Basic Metabolic Panel (non-fasting) Collection Time: 04/04/16 8:58 AM Result Value Ref Range Glucose Lvl 89 65 - 199 mg/dL BUN 12 8 - 18 mg/dL Creatinine 0.93 0.70 - 1.20 mg/dL Sodium 145 135 - 145 mmol/L Potassium 3.7 3.5 - 5.0 mmol/L Chloride 104 98 - 107 mmol/L CO2 24 22 - 31 mmol/L Anion Gap 17 (H) 5 - 15 mmol/L Calcium 10.1 8.5 - 10.5 mg/dL Estimated GFR >60 >=60 Pending Lab Data at Discharge: None. Discharge Disposition: Home. Primary Care Physician: GARCIA APONTE MD [phone] Special Physician Instructions: Lisseth was found to have anemia during this hospitalization that is likely due to iron deficiency. She was started on iron tablets. Special Instructions Provided to Lisseth Boone: Call your doctor, your local mental health center, or your local emergency room if you develop worsening symptoms of depression, anxiety, thoughts of harming yourself, thoughts of harming others, or any other decline in your overall condition. Local [facility] Emergency Services: [facility] Human Services / [phone]. [facility] Emergency Services: [phone] [facility] Central Access Services: [phone] [facility] [place] Main Line: [phone] Activity level: no restrictions from psychiatry Diet: no restrictions from psychiatry Driving: do not drive if sedated by medications Medications have been reviewed with the patient and the patient understands the use and side effectsof these medications as evidenced by discussions on interdisciplinary rounds. documented in this encounter Medications at Time [...] Capsule, Delayed MOUTH DAILY FOR Release(E.C.) STOMACH lisinopril 0 03/22/2016 05/26/2016 (PRINIVIL;ZESTRIL) 10 mg Tablet rizatriptan (MAXALT) 5 mg 0 03/16/2016 05/26/2016 Tablet SUMAtriptan (IMITREX) 50 Take 1 tablet by 0 02/1805/26/2016 mg Tablet mouth as needed. ferrous sulfate 325 mg (65 Take 1 tablet by 7 tablet 0 09/18/2019 mg iron) Tablet, Delayed mouth daily. Release (E.C.) traZODone (DESYREL) 50 mg Take 50 mg by 0 04/15/2016 Tablet mouth nightly. lisinopril Take 10 mg by 0 05/20/2016 (PRINIVIL;ZESTRIL) 10 mg mouth daily. Tablet baclofen (LIORESAL) 20 mg Take 20 mg by 0 04/21/2016 Tablet mouth 3 times daily. esomeprazole (NEXIUM) 40 Take 1 capsule by 60 capsule 02/1311/27/2016 mg Capsule, Delayed mouth 2 times Release(E.C.) daily. sucralfate (CARAFATE) 1 Take 1 tablet by 120 tablet 5 201506/03/2018 gram Tablet mouth 4 times daily. rizatriptan (MAXALT) 5 mg Take 5 mg by mouth 0 04/15/2016 Tablet as needed for Migraine. May repeat in 2 hours if needed omeprazole-sodium Take 20 mg by 0 12/2015 bicarbonate (ZEGERID) mouth 2 times 20-1,680 mg Packet daily. ondansetron (ZOFRAN) 4 mg Take 1 tablet by 5 tablet 0 11/1505/26/2016 Tablet mouth every 8 hours as needed for Nausea for up to 5 doses. topiramate (TOPAMAX) 100 Take 1 tablet by 30 tablet 11 12/0801/13/2017 mg TabletIndications: mouth nightly. Headache(784.0) chlorproMAZINE (THORAZINE) Take 1 tablet by 30 tablet 11 04/15/2016 50 mg TabletIndications: mouth daily as Headache(784.0) needed (take in the onset of a migraine with benadryl) for up to 1 dose. diphenhydrAMINE (BENADRYL) Take 1 capsule by 30 capsule 0 08/26/2016 25 mg CapsuleIndications: mouth every 6 Headache(784.0) hours as needed for Itching (take in the onset of migraine with thorazine). clonazePAM (KLONOPIN) 1 mg Take 1 tablet by 60 tablet 0 06/201405/29/2016 tablet mouth 2 times daily. folic acid (FOLVITE) 1 mg Take 1 tablet by 30 tablet 12 10/1406/03/2018 tablet mouth daily. DULoxetine (CYMBALTA) 60 Take 60 mg by 0 04/16/2016 mg capsule mouth 2 times daily. documented as of this encounter Progress Notes Melissa Cody - 04/04/2016 10:49 AM EDT Inpatient Daily Group Note Group: Goals Notes: Declined preparing for discharge. MELISSA CODY 04/04/2016 Leah Busch RN - 04/04/2016 10:42 AM EDT Psychiatric Nursing Discharge Note Patient Completed Relapse Prevention Plan: yes Patient aware of follow-up appointments: yes Patient evidences understanding of medication use and regime: yes Patient belongings returned: yes Patient left unit with: At what time? 1030 Cooper Bee MD - 04/04/2016 8:41 AM EDT Psychiatry Inpatient - Progress Note 04/04/2016 ID: Lisseth Boone is a 45 y.o. female admitted on 04/01/2016 for delirium. Hospital day 3. Current Working Primary Diagnosis: medically induced delirium Pertinent medical issues being addressed: medically induced deliriuim Interval History: (1,1,4) Narrative: I'm doing much better. I'm ready to go home. The patient was alert and oriented to person, place, and time. She feels she is back to her baseline and stated I think it was the medication.Getting the medication pared down was helpful. She denied any current suicidal or homicidal ideations. Per nursing report - no management issues, calm, cooperative, alert and oriented times four. Review of Systems: (0,1,2) CONST CV RESP GI NEURO PSYCH See above. Physical Exam: (1,6,9) Vitals (24hr Range): Temp: [36.5 ??C (97.7 ??F)-36.7 ??C (98.1 ??F)] Resp: [16-17] Heart Rate: [99-113] BP: (150-167)/(104-106) SpO2: [98 %-100 %] Patient Vitals for the past 168 hrs: Weight 04/01/16 1638 64.9 kg (143 lb) Musculoskeletal System: normal gait and balance Mental Status Exam: ?? Appearance: appropriately groomed and dressed ?? Behavior: calm, cooperative ?? Speech: normal rate rhythm and volume ?? Language: ?? Mood: Good. ?? Affect: full, bright, and euthymic ?? Thought Process: linear and goal directed ?? Associations: abstract ?? Thought Content: denied suicidal or homicidal ideations ?? Perception: denied auditory or visual hallucinations ?? Orientation: Patient is alert and oriented times three. ?? Attention/Concentration: intact ?? Cognition: intact ?? Memory: intact ?? Fund of Knowledge: appropriate for age and level of function ?? Insight: good ?? Judgment: good Current Medications: Scheduled: ??? ferrous sulfate 325 mg Oral Daily with breakfast ??? lisinopril 10 mg Oral Daily ??? haloperidol 0.5 mg Oral BID ??? clonazePAM 1 mg Oral BID ??? sucralfate 1 g Oral 4 Times Daily ??? folic acid 1 mg Oral Daily ??? riboflavin (vitamin B2) 100 mg Oral Daily ??? multivitamin 1 tablet Oral Daily PRN: acetaminophen, melatonin Labs: Last 24 Hours: Recent Results (from the past 24 hour(s)) Ferritin Result Value Ref Range Ferritin 15 15 - 150 ng/mL Hemogram Result Value Ref Range WBC 7.9 4.0 - 10.0 x10(3)/mcL RBC 4.13 3.93 - 5.22 x10(6)/mcL Hemoglobin 10.6 (L) 11.2 - 15.7 gm/dL Hematocrit 35.5 34.0 - 45.0 % MCV 86.0 79.0 - 94.0 fL MCH 25.7 (L) 26.6 - 32.2 pg MCHC 29.9 (L) 32.0 - 36.5 gm/dL Platelets 635 (H) 145 - 370 x10(3)/mcL RDWSD 54.2 (H) 35.0 - 46.0 fL RDWCV 17.6 (H) 10.9 - 14.4 % MPV 12.3 (H) 9.0 - 12.0 fL nRBC % Auto 0.0 % nRBC Abs Auto 0.000 0.000 - 0.012 x10(3)/mcL Differential, Automated Result Value Ref Range Neutrophils % 51.5 % Neutr Abs (ANC) 4.08 1.50 - 6.30 x10(3)/mcL Lymphocytes % 22.4 % Lymphocytes Abs 1.8 1.0 - 3.6 x10(3)/mcL Monocytes % 8.9 % Monocyte Abs 0.7 0.2 - 1.0 x10(3)/mcL Eosinophils % 14.1 % Eosinophils Abs 1.1 (H) 0.0 - 0.5 x10(3)/mcL Basophils % 2.8 % Basophils Abs 0.2 0.0 - 0.2 x10(3)/mcL Immature Gran % 0.30 % Rosangela Gran Abs 0.02 0.00 - 0.05 x10(3)/mcL Urinalysis without microscopic Result Value Ref Range Glucose UA Negative Negative mg/dL Protein UA Negative Negative mg/dL Bilirubin UA Negative Negative mg/dL Urobilinogen UA Normal Normal mg/dL pH UA 7.0 5.0 - 8.0 Blood UA Negative Negative mg/dL Ketones UA Negative Negative mg/dL Nitrite UA Negative Negative Leukocytes UA Negative Negative mcL Appearance UA Clear Clear Spec Clark UA 1.005 1.002 - 1.030 Color UA Yellow Yellow Psychiatry Labs: Preg: No results found for: HCGQUAL, HCGQUANT Heme: Lab Results Component Value Date WBC 7.9 04/03/2016 HGB 10.6 (L) 04/03/2016 HCT 35.5 04/03/2016 PLATELET 635 (H) 04/03/2016 MCV 86.0 04/03/2016 NEUTROABS 4.08 04/03/2016 No results found for: HA1C, SEDRATE Chem: Lab Results Component Value Date NA 146 (H) 04/03/2016 K 4.0 04/03/2016 CL 107 04/03/2016 CO2 19 (L) 04/03/2016 BUN 14 04/03/2016 GLUCOSE 99 04/03/2016 Lab Results Component Value Date CALCIUM 10.5 04/03/2016 LFTs: Lab Results Component Value Date ALT 10 03/28/2016 AST 16 03/28/2016 ALKPHOS 90 03/28/2016 BILITOT 0.2 03/28/2016 Coags: No results found for: PTT, PT, INR Thyroid: Lab Results Component Value Date TSH 1.77 03/28/2016 Lipids and HgbA1C: No results found for: CHLPL, HDL, CHOLHDL, LDLCHOL, LDLDIRECT, TRIG No results found for: HA1C Vit Lvls: Lab Results Component Value Date [id number] 02/03/2016 UA: Lab Results Component Value Date GLUCOSEU Negative 04/03/2016 KETONESUA Negative 04/03/2016 PROTEINUADIP Negative 04/03/2016 BLOODUADIP Negative 04/03/2016 LEUKOESTERUA Negative 04/03/2016 NITRATEUA Negative 04/03/2016 (May not represent most recent UA results. See eD-H labs for more details.) Tox: No results found for: ETHANOL, ACTMNPHEN, SALICYLATE, LEAD No results found for: UDAUSCREEN Rx Lvls: No results found for: LITHIUM, CARBAMAZEPIN, VALPROATE, LAMOTRIGINE, CLOZAPINE Assessment: Lisseth Boone is a 45 y.o. female admitted on 04/01/2016 for delirium. Delirium now resolved and the patient is ready for discharge . Current Working Primary Diagnosis: medically induced delirium Clinical Global Impression Severity of illness: Considering your total clinical experience with this particular population, howmentally ill is the patient at this time? 1 = Normal, not at all Global improvement: Rate total improvement compared to condition at admission, how much has she changed? Markedly Improved Plan: # Problem Medically-induced delirium ?? Resolved. Will stop haldol as patient is no longer delirious or confused. Plan for discharge today. Educated the patient on following up with her neurologist for further evaluation of migraine medications as they may have contributed to her delirium. # Problem Anxiety - clonazepam 1mg BID ?? # Problem Iron deficiency anemia - Ferrous sulfate 325mg daily ?? # Problem FENGI - folic acid - MVI - riboflavin - sucralfate ?? # Problem Hypertension - lisinopril 10mg daily ?? # Problem Sleep - melatonin 3mg QHSprn ?? # Disposition: -After stabilization, patient expected to return home. Additional Information: Outpatient Care: Provider Name Date Contacted By Treatment Team Psychiatric prescriber Therapist PCP Patient Instruction/Education Provided: Patient provided verbal instructions during rounds regardingthe treatment plan. I have reviewed and agree with the multidisciplinary treatment plan. Signed By: Cooper Bee MD 04/04/2016 Debra Munguia MD - 04/03/2016 2:56 PM EDT Psychiatry Inpatient - Progress Note 04/03/2016 ID: Lisseth Boone is a 45 y.o. female admitted on 04/01/2016 for medically- induced delirium. Hospital day 2. Current Working Primary Diagnosis: Medically-induced delirium Pertinent medical issues being addressed: Medically-induced delirium Interval History: (1,1,4) Narrative: Reporting some anxiety because of wanting to go back home to her and children. Reporting sheis doing well -back at my baseline. Emmanuel Boone was contacted at [phone]. reports that pt has minimal mood swings at baseline. The episodes that had led to the [place] admission had included severe mood swings. Also does not typically have paranoia, as she did during the episodes that brought her to the ED. Describes that most recent episode had been the culmination of a few days of deterioration - pt started out sleeping excessively, and then he noted that she developed slurred speech, was not making sense, and was repeating herself - This despite the fact that after she [at first] seemed great. With regard to her medication regimen, he comments, She's always supplementing with something extra- over the counter things. She gets impatient and will add more medication. Regarding her GI issues, he says she was always taking something to make her go or make her not go. Regarding her current state, I've talked to her a couple times on the phone and she definitely sounds a lot better. Regarding her safety after discharge, says that pt can recognize when she's not correct. Further, she would never do anything - either to herself or anyone else. He is confident in pt's andfamily's safety. Denying SI. Assoc. Signs and symptoms: Sleep: 7hrs. Review of Systems: (0,1,2) CONST No complaints CV No complaints RESP No complaints GI No complaints NEURO No complaints PSYCH See above. Physical Exam: (1,6,9) Vitals (24hr Range): Patient Vitals for the past 24 hrs: BP Temp Temp src Pulse Resp SpO2 04/03/16 0816 (!) 152/99 - - - - - 04/03/16 0800 (!) 152/99 36.7 ??C (98.1 ??F) Oral 107 - 100 % 04/02/16 2112 (!) 149/99 36.5 ??C (97.7 ??F) Oral 85 17 100 % Temp: [36.5 ??C (97.7 ??F)-36.7 ??C (98.1 ??F)] Resp: [17] Heart Rate: [85-107] BP: (149-152)/(99) SpO2: [100 %] Patient Vitals for the past 168 hrs: Weight 04/01/16 1638 64.9 kg (143 lb) Musculoskeletal System: normal gait and balance, ambulates independently and no abnormal movements Mental Status Exam: ?? Appearance: Dressed neatly and casually, well groomed ?? Behavior: No abnormal movements ?? Speech: Normal rate and volume ?? Language: Macanese, fluent ?? Mood: back to baseline ?? Affect: Pleasant, cooperative, normal range ?? Thought Process: Linear, goal-directed ?? Associations: Normal ?? Thought Content: Denies SI ?? Perception: No indication of internal stimuli ?? Orientation: Grossly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 Patient: Lisseth Boone Admit Date: 04/01/2016 4:06 PM CODE STATUS:Full Code Initial date of care plan. __04/02/2016 Update Q7 days Next Kin:Extended Emergency Contact Information Primary Emergency Contact: Kan Boone [facility] Relation: Spouse Secondary Emergency Contact: Ed Jeong [facility] Relation: Father Working Diagnosis: bipolar PATIENT'S REASON FOR HOSPITALIZATION (his or her own words) 1. sudden onset AMS in setting of JORGE. Though JORGE now resolved, persists with periods of confusion and psychosis STRENGTHS STRESSORS TARGET SYMPTOMS 1. Supportive family Medical comorbidity Disorganized behavior 2. Thought disorder Auditory hallucinations 3. 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 Continued psychiatric evaluation 1. Behavioral Activation Communication Program 2. Med management/Brief therapy 2. Therapeutic groups & activities 3. Diagnostic/Medical testing/Labs 3. NURSING INTERVENTIONS PCM & SW INTERVENTIONS 1. Purposeful rounding 1. Facilitate communication with family 2. See Nursing care plan 2. Facilitate communication with providers 3. 3. Assist with discharge planning I have worked with my treatment team and agree with the plan above. 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 Plan of Care - Tim Olivas RN - 04/01/2016 7:12 PM EDT Problem: General Plan of Care Goal: Plan of Care Review Outcome: Ongoing (Interventions Implemented as Appropriate) 04/01/16 1838 Coping/Psychosocial Response Interventions Plan of Care Reviewed with patient Plan of Care Review Plan of Care Outcome Status ongoing (interventions implemented as appropriate) Progress progress toward functional goals as expected OUTCOME EVALUATION NOTE: OUTCOME SUMMARY: Pt admitted from . Alert and oriented x3/ Cooperative and pleasant. Completed her admission paper work and nursing intake. Affect is blunted. Reports that she had a similar incident earlier in the summer where she became confused and was not taking her prescribed medications properly. This was also complicated by pt abusing laxatives secondary to ongoing GI issues which she was trying to self treat. Pt denies AVH at present but states that over the summer she was hearing her mother's voice talking to her frequently. Mother pasted away in 2005. Denies SI/HI. Reports anxiety 2-3/10 related to the disruption her recent changes in mental health have caused for her family. Pt endorses feeling a little sad. In the past pt has been treated for anxiety with Clonozapam up to 4 mg /day. Since she has been to the [facility] she is down to 2mg/day and she feels this is much better for her. PLAN MOVING FORWARD: Groups. Goal setting. Medication management/education. ROSEANNE program. Discharge planning. [place] pt to unit routines. INDIVIDUALIZED FALL PREVENTION INTERVENTIONS: Patient-specific fall risk factors per assessment: [current deficits]: low fall risk Assistance [level of assistance required for transfers and ambulation]: independnet Supervision [direct monitoring required during toileting and ADLs]: iindependent Surveillance [continuous indirect monitoring]: 30 minute checks. Purposeful rounding Patient-specific fall prevention interventions for sensory deficits provided, if applicable: [X] N/A CPG GOAL OUTCOME EVALUATION: Goal: Individualization and Mutuality Outcome: Ongoing (Interventions Implemented as Appropriate) 08/17/16 1814 Mutuality/Individual Preferences What anxieties, fears or concerns do you have about your health or care? comment (wondering why she gets confused about her medications) What questions do you have about your health or care? no questions at this time What information would help us give you more personalized care? none Goal: Fall Prevention-Safe Patient Handling Outcome: Ongoing (Interventions Implemented as Appropriate) 04/01/16181304/01/161837 Safety Interventions Safety Precautions/Fall Reduction fall reduction program maintained -- Musculoskeletal Interventions Activity/Level of Assistance -- up ad zenaida;independently Positioning -- independent Muscle Strengthening -- activity/mobility promoted Self-Care Promotion -- independence encouraged while providing assistance Activity and Safety Assistive Device -- None Izquierdo Fall Risk History of Falling 0 -- Secondary Diagnosis 15 -- Ambulatory Aids 0 -- Intravenous Therapy/Heparin/Saline Lock 0 -- Gait/Transferring 0 -- Mental Status 0 -- Score 15 -- OTHER Izquierdo Fall Risk Low -- Goal: Infection Control Outcome: Ongoing (Interventions Implemented as Appropriate) 04/01/161837 Safety Interventions Isolation Precautions standard precautions maintained Infection Prevention promote handwashing;rest/sleep promoted;nutrition promoted;hydration promoted Coping/Psychosocial Response Interventions Counseling emotional support provided;goal setting facilitated;reassurance provided;understanding ofsituation facilitated;verbalization of feelings encouraged documented in this encounter Plan of Treatment Upcoming Encounters Date Type Specialty Care Team Description 04/14/2022 Office Visit Neurology Cameron Alves MD [facility] [address] [place] [address] (Wo rk) documented as of this encounter Procedures Procedure Name Priority Date/Time Associated Diagnosis Comme nts BASIC METABOLIC Routine 04/04/2016 8:58 AM Result s for this PANEL (NON-FASTING) EDT procedur e are in the results section. URINALYSIS WITHOUT Routine 04/03/2016 3:47 PM Res ults for this MICROSCOPIC EDT procedure are i n the results section. HEMOGRAM STAT 04/03/2016 12:44 Results for this PM EDT procedure are i n the results section. DIFFERENTIAL, STAT 04/03/2016 12:44 Results fo r this AUTOMATED PM EDT procedure are i n the results section. CBC (WITH DIFF) STAT 04/03/2016 12:44 PM EDT FERRITIN STAT 04/03/2016 12:44 Results for this PM EDT procedure are i n the results section. IRON AND TIBC Routine 04/03/2016 6:39 AM Results for this EDT procedure are i n the results section. BASIC METABOLIC Routine 04/03/2016 6:39 AM Result s for this PANEL (NON-FASTING) EDT procedur e are in the results section. EKG 12-LEAD Routine 04/02/2016 8:34 AM Psychosis, Results f or this EDT unspecified procedure are i n psychosis type the results section. BASIC METABOLIC Routine 04/02/2016 8:19 AM Result s for this PANEL (NON-FASTING) EDT procedur e are in the results section. documented in this encounter Results (ABNORMAL) Basic Metabolic Panel (non-fasting) (04/04/2016 8:58 AM EDT) P athologist Signature Glucose Lvl 89 65 - 199 [facility] mg/dL [facility] Comment: Diabetes: >=200 mg/dL plus symp toms BUN 12 8 - 18 mg/dL [facility] Creatinine 0.93 0.70 - 1.20 mg/dL [facility] Comment: Please note that the pediatric reference intervals supplied above were not validated at [facility]. Results from pediatri c patients should be interpreted in conjunction to the patient's age, height and muscle mass. Sodium 145 135 - 145 mmol/L [facility] Potassium 3.7 3.5 - 5.0 mmol/L [facility] Comment: Please note: ??Patients with WBC >100,00 0 may have falsely elevated Potassium levels. ??For accurate Potassium quantif ication in these patients send serum separator tube (gold top) for subsequent determinations. ??Contact the Clinical Chemistry Laboratory if there are any qu estions. Chloride 104 98 - 107 mmol/L [facility] CO2 24 22 - 31 mmol/L [facility] Anion Gap 17 (H) 5 - 15 mmol/L [facility] Calcium 10.1 8.5 - 10.5 mg/dL [facility] Estimated GFR >60 >=60 [facility] [...] the following links into your internet browser. [email or web address] Specimen Anatomical Collection Method Collection Time Receive d Time (Source) Location / / Volume Laterality Blood specimen 04/04/2016 8:58 AM 016 9:05 (specimen) EDT AM EDT Resulting Agency Comment Spec In Lab Denae Easton MD CHEMISTRY ORDERABLES Performing Organization Address City/State/ZIP [place] [address] Urinalysis without microscopic (04/03/2016 3:47 PM EDT) [facility] Method Time Signature Glucose UA Negative Negative [facility] mg/dL [facility] Protein UA Negative Negative [facility] mg/dL [facility] Bilirubin UA Negative Negative [facility] mg/dL [facility] Comment: Clinical correlation required for positi ve Urine Bilirubin results as false positive may occur with some drugs and d rug related products. If a false positive is suspected a serum total bili kelly should be considered if clinically indicated. Urobilinogen UA Normal Normal mg/dL [facility] pH UA 7.0 5.0 - 8.0 [facility] Blood UA Negative Negative mg/dL [facility] Ketones UA Negative Negative mg/dL [facility] Nitrite UA Negative Negative [facility] Leukocytes UA Negative Negative [facility] LABORATORY Appearance UA Clear Clear [facility] Spec Clark UA 1.005 1.002 - 1.030 [facility] Color UA Yellow Yellow [facility] Specimen Anatomical Collection Method Collection Time Receive d Time (Source) Location / / Volume Laterality Urine specimen 04/03/2016 3:47 PM 016 3:57 (specimen) EDT PM EDT Resulting Agency Comment Spec In Lab Denae Easton MD URINE ORDERABLES Performing Organization Address City/State/ZIP [place] [address] (ABNORMAL) Differential, Automated (04/03/2016 12:44 PM EDT) [facility] gist Method Time Signature Neutrophils % 51.5 % [facility] Neutr Abs (ANC) 4.08 1.50 - [facility] 6.30 [facility] x10(3)/[facility] LABORATORY Lymphocytes % 22.4 % [facility] Lymphocytes Abs 1.8 1.0 - 3.6 [facility] x10(3)/[facility] LABORATORY Monocytes % 8.9 % [facility] Monocyte Abs 0.7 0.2 - 1.0 [facility] x10(3)/[facility] LABORATORY Eosinophils % 14.1 % [facility] Eosinophils Abs 1.1 (H) 0.0 - 0.5 [facility] x10(3)/[facility] LABORATORY Basophils % 2.8 % [facility] Basophils Abs 0.2 0.0 - 0.2 [facility] x10(3)/[facility] LABORATORY Immature Gran % 0.30 % [facility] Comment: Immature granulocytes(IG's)percentage an d absolute count will include metamyelocytes, myelocytes, and promyelo cytes. Blood smears from CBCs yielding IG's will be scanned manually for concor dance. If this scan disagrees with the automated IG or if promyelocytes are not ed, a manual differential will be performed. Rosangela Gran Abs 0.02 0.00 - 0.05 x10(3)/[facility] Specimen Anatomical Collection Method Collection Time Receive d Time (Source) Location / / Volume Laterality Blood specimen 04/03/2016 12:44 6 (specimen) PM EDT 12:51 PM EDT Resulting Agency Comment Spec In Lab Denae Eatson MD HEMATOLOGY ORDERABLES Performing Organization Address City/State/ZIP [place] [address] (ABNORMAL) Hemogram (04/03/2016 12:44 PM EDT) Analysis Performed At Patho logist Time Signature WBC 7.9 4.0 - 10.0 [facility](3[facility] LABORATORY RBC 4.13 3.93 - [place] 5.22 [facility] x10(6)/[facility] LABORATORY Hemoglobin 10.6 (L) 11.2 - [facility] 15.7 gm/dL [facility] Hematocrit 35.5 34.0 - [place] 45.0 % [facility] MCV 86.0 79.0 - [facility] 94.0 [facility] LABORATORY MCH 25.7 (L) 26.6 - [place] 32.2 pg [facility] MCHC 29.9 (L) 32.0 - [place] 36.5 gm/dL [facility] Platelets 635 (H) 145 - 370 [facility](3[facility] LABORATORY RDWSD 54.2 (H) 35.0 - [place] 46.0 [facility] LABORATORY RDWCV 17.6 (H) 10.9 - [facility] PINKY 14.4 % [facility] MPV 12.3 (H) 9.0 - 12.0 [facility] [place] LABORATORY nRBC % Auto 0.0 % [facility] nRBC Abs Auto 0.000 0.000 - [facility] 0.012 [facility] x10(3)/[facility] LABORATORY Specimen Anatomical Collection Method Collection Time Receive d Time (Source) Location / / Volume Laterality Blood specimen 04/03/2016 12:44 6 (specimen) PM EDT 12:51 PM EDT Resulting Agency Comment Spec In Lab Denae Easton MD HEMATOLOGY ORDERABLES Performing Organization Address City/State/ZIP Code Phon e Number [address] Ferritin (04/03/2016 12:44 PM EDT) athologist Signature Ferritin 15 15 - 150 [facility] ng/mL [facility] Comment: Pediatric reference ranges not verified at [facility], interpret with caution. Reference ranges for females greater jarvis n 50 years of age approach values for men, i.e., 30-400 ng/mL. Specimen Anatomical Collection Method Collection Time Receive d Time (Source) Location / / Volume Laterality Blood specimen 04/03/2016 12:44 6 (specimen) PM EDT 12:51 PM EDT Resulting Agency Comment Spec In Lab Denae Easton MD CHEMISTRY ORDERABLES Performing Organization Address City/State/ZIP Code Phon e Number [address] (ABNORMAL) Iron and TIBC (04/03/2016 6:39 AM EDT) athologist Signature Iron 41 30 - 150 [facility] mcg/dL [facility] TIBC 398 250 - 450 [facility] mcg/dL [facility] Iron Saturation 10 (L) 20 - 50 % [facility] Specimen Anatomical Collection Method Collection Time Receive d Time (Source) Location / / Volume Laterality Blood specimen Venous Draw / 04/03/2016 6:39 AM 2015 6:52 (specimen) Unknown EDT AM EDT Resulting Agency Comment Spec In Lab Denae Easton MD CHEMISTRY ORDERABLES Performing Organization Address City/State/[place] [address] (ABNORMAL) Basic Metabolic Panel (non-fasting) (04/03/2016 6:39 AM EDT) athologist [facility] Glucose Lvl 99 65 - 199 [facility] mg/dL [facility] Comment: Diabetes: >=200 mg/dL plus symp toms BUN 14 8 - 18 mg/dL [facility] Creatinine 1.13 0.70 - 1.20 mg/dL [facility] Comment: Please note that the pediatric reference intervals supplied above were not validated at [facility]. Results from pediatri c patients should be interpreted in conjunction to the patient's age, height and muscle mass. Sodium 146 (H) 135 - 145 mmol/L [facility] Potassium 4.0 3.5 - 5.0 mmol/L [facility] Comment: Please note: ??Patients with WBC >100,00 0 may have falsely elevated Potassium levels. ??For accurate Potassium quantif ication in these patients send serum separator tube (gold top) for subsequent determinations. ??Contact the Clinical Chemistry Laboratory if there are any qu estions. Chloride 107 98 - 107 mmol/L [facility] CO2 19 (L) 22 - 31 mmol/L [facility] Anion Gap 20 (H) 5 - 15 mmol/L [facility] Calcium 10.5 8.5 - 10.5 mg/dL [facility] Comment: result rechecked-[id number] Estimated GFR 53 (L) >=60 [facility] Comment: [...] the following links into your internet browser. [email or web address] Specimen Anatomical Collection Method Collection Time Receive d Time (Source) Location / / Volume Laterality Blood specimen 04/03/2016 6:39 AM 016 6:51 (specimen) EDT AM EDT Resulting Agency Comment Spec In Lab Denae Easton MD CHEMISTRY ORDERABLES Performing Organization Address City/State/ZIP [place] [address] EKG 12 Lead (04/02/2016 8:34 AM EDT) Patholo gist Method Time Signature Ventricular rate 85 BPM MUSE SYSTEM Atrial Rate 85 BPM MUSE SYSTEM P-R Interval 126 ms MUSE SYSTEM QRS Duration 74 ms MUSE SYSTEM Q-T Interval 344 ms MUSE SYSTEM QTC Calculated 409 ms MUSE SYSTEM (Bezet) Calculated P [place] 39 degrees MUSE SYSTEM Calculated R [place] 15 degrees MUSE SYSTEM Calculated T [place] 28 degrees MUSE SYSTEM INTERPRETATION Normal sinus rhythm MUSE SYSTEM Normal ECG When compared with ECG of 28-MAR-2016 04:26, QT has shortened Confirmed by MD Scooby, Sophie ([id number]) on 04/02/2016 11:36:33 A M Specimen Anatomical Collection Method Collection Time Receive d Time (Source) Location / / Volume Laterality 04/02/2016 8:34 AM 6 EDT 11:36 AM EDT Denae Easton MD ECG ORDERABLES Performing Organization Address City/State/ZIP Code Phon e Number MUSE SYSTEM Basic Metabolic Panel (non-fasting) (04/02/2016 8:19 AM EDT) P athologist Signature Glucose Lvl 85 65 - 199 [facility] mg/dL [facility] Comment: Diabetes: >=200 mg/dL plus symp toms BUN 12 8 - 18 mg/dL [facility] Creatinine 0.96 0.70 - 1.20 mg/dL [facility] Comment: Please note that the pediatric reference intervals supplied above were not validated at [facility]. Results from pediatri c patients should be interpreted in conjunction to the patient's age, height and muscle mass. Sodium 144 135 - 145 mmol/L [facility] Potassium 3.6 3.5 - 5.0 mmol/L [facility] Comment: Please note: ??Patients with WBC >100,00 0 may have falsely elevated Potassium levels. ??For accurate Potassium quantif ication in these patients send serum separator tube (gold top) for subsequent determinations. ??Contact the Clinical Chemistry Laboratory if there are any qu estions. Chloride 107 98 - 107 mmol/L [facility] CO2 22 22 - 31 mmol/L [facility] Anion Gap 15 5 - 15 mmol/L [facility] Calcium 9.7 8.5 - 10.5 mg/dL [facility] Estimated GFR >60 >=60 [facility] [...] the following links into your internet browser. [email or web address] Specimen Anatomical Collection Method Collection Time Receive d Time (Source) Location / / Volume Laterality Blood specimen 04/02/2016 8:19 AM 016 8:32 (specimen) EDT AM EDT Resulting Agency Comment Spec In Lab Denae Easton MD CHEMISTRY ORDERABLES Performing Organization Address City/State/ZIP Code Phon e Number [place] [id number] documented in this encounter Visit Diagnoses Diagnosis Psychosis, unspecified psychosis type documented in this encounter Admitting Diagnoses Diagnosis Psychosis Unspecified psychosis documented in this encounter Administered Medications Inactive Administered Medications - up to 3 most recent administrations Medication Order MAR Action Action Date Dose Rate Site acetaminophen (TYLENOL) tablet 650 Given 04/01/2016 6:14 PM EDT 650 mg mg 650 mg, Oral, EVERY 6 HOURS PRN, Starting on Wed04/01/16 at 1742, Until 04/04/16 at 1248, Pain, Maximum dose of acetaminophen is 4000 mg from all sources in 24 hours., Routine amLODIPine (NORVASC) tablet 5 mg Given 04/02/2016 8:26 AM EDT 5 mg 5 mg, Oral, DAILY, First dose on Wed04/02/16 at 0900, Until Discontinued, Routine clonazePAM (KlonoPIN) tablet 1 mg Given 04/04/2016 7:39 AM EDT 1 mg 1 mg, Oral, 2 TIMES DAILY, First dose on Wed04/01/16 at 2100, Until Discontinued, Routine Given 04/03/2016 9:06 PM EDT 1 mg Given 04/03/2016 8:14 AM EDT 1 mg ferrous sulfate EC tablet 325 mg Given 04/04/2016 7:37 AM EDT 325 mg 325 mg, Oral, DAILY WITH BREAKFAST, First dose on Wed04/03/16 at 1645, Until Discontinued, DO NOT CRUSH OR OPEN. Take with food or a glass of water., Routine Given 04/03/2016 4:51 PM EDT 325 mg folic acid (FOLVITE) tablet 1,000 mcg Given 04/04/2016 7:38 AM EDT 1,000 mcg 1,000 mcg (1 mg), Oral, DAILY, First dose (after last modification) on Wed04/02/16 at 0900, Until Discontinued, Routine Given 04/03/2016 8:17 AM EDT 1,000 mcg Given 04/02/2016 8:27 AM EDT 1,000 mcg haloperidol (HALDOL) tablet 0.5 mg Given 04/04/2016 7:39 AM EDT 0.5 mg 0.5 mg, Oral, 2 TIMES DAILY, First dose on Wed04/03/16 at 0900, Until Discontinued, Routine Given 04/03/2016 9:06 PM EDT 0.5 mg Given 04/03/2016 8:16 AM EDT 0.5 mg lamoTRIgine (LaMICtal) tablet 25 mg Given 04/03/2016 8:15 AM EDT 25 mg 25 mg, Oral, DAILY, First dose on Wed04/02/16 at 0900, Until Discontinued, Routine Given 04/02/2016 8:27 AM EDT 25 mg lisinopril (PRINIVIL;ZESTRIL) tablet 10 mg Given 04/04/2016 8:10 AM EDT 10 mg 10 mg, Oral, DAILY, First dose on Wed04/03/16 at 0900, Until Discontinued, Routine Given 04/03/2016 8:16 AM EDT 10 mg melatonin tablet 3 mg Given 04/02/2016 9:19 PM EDT 3 mg 3 mg, Oral, NIGHTLY PRN, Starting on Wed04/01/16 at 1739, Until 04/04/16 at 1248, sleeping difficulty, Routine Given 04/01/2016 9:18 PM EDT 3 mg multivitamin (THERAGRAN) tablet 1 tablet Given 04/04/2016 7:38 AM EDT 1 tablet 1 tablet, Oral, DAILY, First dose on Wed04/02/16 at 0900, Until Discontinued Given 04/03/2016 8:17 AM EDT 1 tablet Given 04/02/2016 8:28 AM EDT 1 tablet OLANZapine (ZyPREXA) tablet 10 mg Given 04/02/2016 9:19 PM EDT 10 mg 10 mg, Oral, NIGHTLY, First dose on Wed04/01/16 at 2100, Until Discontinued, Routine Given 04/01/2016 9:18 PM EDT 10 mg pantoprazole (PROTONIX) tablet 40 mg Given 04/01/2016 6:14 PM EDT 40 mg 40 mg, Oral, DAILY, First dose on Wed04/01/16 at 1800, Until Discontinued, Interchange for Esomeprazole. DO NOT CRUSH OR OPEN, Routine riboflavin (vitamin B2) tablet 100 mg Given 04/04/2016 7:40 AM EDT 100 mg 100 mg, Oral, DAILY, First dose (after last modification) on Wed04/02/16 at 0900, Until Discontinued, Routine Given 04/03/2016 8:15 AM EDT 100 mg Given 04/02/2016 12:38 PM EDT 100 mg sucralfate (CARAFATE) tablet 1 g Given 04/04/2016 7:38 AM EDT 1 g 1 g, Oral, 4 TIMES DAILY, First dose on Wed04/01/16 at 1700, Until Discontinued, Routine Given 04/03/2016 9:06 PM EDT 1 g Given 04/03/2016 4:49 PM EDT 1 g documented in this encounter Active and Recently Administered Medications Times are shown in EDT. Scheduled Medication Order 04/02/2016 04/03/2016 04/04/2016 amLODIPine (NORVASC) tablet 5 mg (CANCELED) 0826 (Give n - Provider: Ellen Diaz RN) 5 mg, Oral, DAILY, First dose on Bria 03/16 03/31 at 0900, Until Discontinued, Routine clonazePAM (KlonoPIN) tablet 1 mg 08 (Given - Provid er: Ellen Diaz RN)2118 (Given - Provider: Tim Olivas RN) 08 (Given - Provider: Pari Mendenhall RN)2105 (Given - Provider: Tim Olivas RN) 0739 (Given - Provider: Leah Busch RN)0900 (Canceled Entry - Provider: Leah Busch, [facility] - Reason: Contraindicated) 1 mg, Oral, 2 TIMES DAILY, First dose on Wed04/01/16 at 2100, Until Discontinued, Routine ferrous sulfate EC tablet 325 mg 1651 (Given - P rovider: Tim Olivas, [facility]) 0737 (Given - Provider: Leah Busch, [facility]) 325 mg, Oral, DAILY WITH BREAKFAST, Firs t dose on Wed04/03/16 at 1645, Until Discontinued, DO NOT CRUSH OR OPEN. Take with food or a glass of water., Routine folic acid (FOLVITE) tablet 1,000 mcg 0827 (Given - Provider : Ellen Diaz RN) 0817 (Given - Provider: Pari Day RN) 0738 (Given - Provider: Leah Busch, [facility])0900 (Canceled Entry - Provider: Leah Busch RN - Reason: Contraindicated) 1,000 mcg (1 mg), Oral, DAILY, First dos e on Wed04/02/16 at 0900, Until Discontinued, Routine haloperidol (HALDOL) tablet 0.5 mg 0816 (Given - Provider: Pari Mendenhall RN)210 (Given - Provider: Tim Olivas, [facility]) 0739 (Given - Provider: Leah Busch, [facility])0900 (Canceled Entry - Provider: Leah Busch RN - Reason: Contraindicated) 0.5 mg, Oral, 2 TIMES DAILY, First dose on Wed04/03/16 at 0900, Until Discontinued, Routine lamoTRIgine (LaMICtal) tablet 25 mg (CANCELED) 0827 (G iven - Provider: Ellen Diaz RN) 0815 (Given - Provider: Pari Day RN) 25 mg, Oral, DAILY, First dose on Wed at 0900, Until Discontinued, Routine lisinopril (PRINIVIL;ZESTRIL) tablet 10 mg 0816 (Given - Provider: Pari Day RN) 0810 (Given - Provider: Leah Busch RN) 10 mg, Oral, DAILY, First dose on Wed at 0900, Until Discontinued, Routine multivitamin (THERAGRAN) tablet 1 tablet 0828 (Given - Provider: Ellen Diaz RN) 0817 (Given - Provider: Pari Day RN) 0738 (Given - Provider: Leah Busch, [facility])0900 (Canceled Entry - Provider: Leah Busch, RN - Reason: Contraindicated) 1 tablet, Oral, DAILY, First dose on Wed04/02/16 at 0900, Until Discontinued, Routine OLANZapine (ZyPREXA) tablet 10 mg (CANCELED) 2118 (Giv en - Provider: Tim Olivas, RN) 10 mg, Oral, NIGHTLY, First dose on Wed04/01/16 at 2100, Until Discontinued, Routine riboflavin (vitamin B2) tablet 100 mg 899 (Not Given - Provider: Ellen Diaz RN - Reason: Patient not available)1238 (Given - Provider: Ellen Diaz RN) 0815 (Given - Provider: Pari Day RN) 0740 (Given - Provider: Leah Busch, [facility])0900 (Canceled Entry - Provider: Leah Busch RN - Reason: Contraindicated) 100 mg, Oral, DAILY, First dose on Wed at 0900, Until Discontinued, Routine sucralfate (CARAFATE) tablet 1 g 0828 (Given - Provide r: Ellen Diaz RN)1237 (Given - Provider: Ellen Diaz RN)1703 (Given - Provider: Tim Olivas RN)2119 (Given - Provider: Tim Olivas RN) 0814 (Given - Provider: Pari Day, [facility])1406 (Given - Provider: Pari Day, RN)1649 (Given - Provider: Tim Olivas RN)2106 (Given - Provider: Tim Olivas RN) 0738 (Given - Provider: Leah Busch, [facility])0900 (Canceled Entry - Provider: Leah Busch, [facility] - Reason: Contraindicated) 1 g, Oral, 4 TIMES DAILY, First dose on Wed04/01/16 at 1700, Until Discontinued, Routine PRN Medication Order 04/02/2016 04/03/2016 04/04/2016 acetaminophen (TYLENOL) tablet 650 mg 650 mg, Oral, EVERY 6 HOURS PRN, Startin g Wed04/01/16 at 1742, Until 04/04/16 at 1248, Pain, Maximum dose of acetaminophen is 4000 mg from all sources in 24 hours., Routine melatonin tablet 3 mg 2118 (Given - Provider: Tim Olivas RN ) 3 mg, Oral, NIGHTLY PRN, Starting Wed at 1739, Until 04/04/16 at 1248, sleeping difficulty, Routine documented in this encounter Care Teams Chair Lift Operator Relationship Specialty Start Date End Date Garcia Aponte MD PCP - General Family Medicine 04/03/16 04/06/[address] [facility] [address] [facility] [place] [address] documented as of this encounter
--- OUTSIDE RECORDS SUMMARY | 2022-03-18 11:36 | XMS_ITS | Encounter Summary ---
:1970 Author Organization [facility] [place] [address] Care Team Providers Name Role Phone Tarsha Williamson MD Primary Care Provider Encounter Details Date Type Department Care Team Description 02/19/2016 Telephone Gastroenterology at [facility] Jose De Jesus Martinez MD [facility] [place] [address] GASTROENTEROLOGY [phone] [place] [place], [place] [address] (Wo rk) Social History Tobacco Use Types Packs/Day Years Used Date Former Smoker Cigarettes 0 15 Quit: 12/09/19 03 Smokeless Tobacco: Never Used Alcohol Use Standard Drinks/Week Comments No 0 (1 standard drink = 0.6 oz pure alcoho l) Sex Assigned at Date Recorded Not on file documented as of this encounter Miscellaneous Notes Telephone Encounter - Agnieszka Zabala RN - 02/19/2016 4:05 PM EDT Opened in error. documented in this encounter Plan of Treatment Upcoming Encounters Date Type Specialty Care Team Description 04/14/2022 Office Visit Neurology Cameron Alves MD [facility] er [address] [address] (Wo rk) documented as of this encounter Visit Diagnoses Not on filedocumented in this encounter Care Teams Steam Hand Relationship Specialty Start Date End Date Tarsha Williamson MD PCP - General 10/21/13 04/02/[address] [place] [address] [place] [address] documented as of this encounter
--- OUTSIDE RECORDS SUMMARY | 2022-03-18 11:36 | XMS_ITS | Encounter Summary ---
:1970 [place] [address] Care Team Providers Name Role Phone Tarsha Williamson MD Primary Care Provider Reason for Visit Reason Comments Medication Refill Encounter Details Date Type Department Care Team Description 06/08/2014 Refill Neurology at [facility] Jose Covarrubias, [facility] [place] [address] NEUROLOGY DEPT [phone] [place], [place] [address] (Wo rk) Social History Tobacco Use Types Packs/Day Years Used Date Current Every Day Smoker Cigarettes 0.25 15 Smokeless Tobacco: Never Used Alcohol Use Standard Drinks/Week Comments No 0 (1 standard drink = 0.6 oz pure alcoho l) Sex Assigned at Date Recorded Not on file documented as of this encounter Plan of Treatment Upcoming Encounters Date Type Specialty Care Team Description 04/14/2022 Office Visit Neurology Cameron Alves MD [facility] [address] [place], [place] [address] (Wo rk) documented as of this encounter Visit Diagnoses Not on filedocumented in this encounter Care Teams Brass Bobbin Winder Relationship Specialty Start Date End Date Tarsha Williamson MD PCP - General 10/21/13 04/02/[address] [place] [address] [place], [place] [address] documented as of this encounter
--- OUTSIDE RECORDS SUMMARY | 2022-03-18 11:36 | XMS_ITS | Encounter Summary ---
:1970 [place] [address] Care Team Providers Name Role Phone Tarsha Williamson MD Primary Care Provider Encounter Details Date Type Department Care Team Description 03/27/2016 Hospital Encounter Radiology Library at [facility] enzo Leach MD [facility] [place] [address] [place], [place] [phone] (Wo rk) [phone] Social History Tobacco Use Types Packs/Day Years [...] 0 02/1805/26/2016 mg Tablet mouth as needed. esomeprazole (NEXIUM) 40 Take 1 capsule by 60 capsule 02/1311/27/2016 mg Capsule, Delayed mouth 2 times Release(E.C.) daily. sucralfate (CARAFATE) 1 Take 1 tablet by 120 tablet 5 201506/03/2018 gram Tablet mouth 4 [address] daily. [address] 1 patch onto 10 patch 02/23/201604/04 (TRANSDERM-SCOP) 1.5 mg (1 the skin every 3 mg over 3 days) patch 3 days. day ondansetron (ZOFRAN-ODT) 8 Take 1 tablet by 60 tablet 5 04/04/2016 mg Tablet, Rapid Dissolve mouth every 8 hours as needed for Nausea. rizatriptan (MAXALT) 5 mg Take 5 mg [...] times daily. documented as of this encounter Plan of Treatment Upcoming Encounters Date Type Specialty Care Team Description 04/14/2022 Office Visit Neurology Cameron Alves MD [facility] er [place] [phone] (Wo rk) documented as of this encounter Procedures Procedure Name Priority Date/Time Associated Diagnosis Comme nts FILM LIBRARY Routine 03/27/2016 12:00 AM Pain Results for this STORAGE ONLY DX EDT procedure ar e in CHEST the results section. documented in this encounter Results Film Library- Storage only DX Chest (03/27/2016 12:00 AM EDT) Specimen (Source) Anatomical Location Collection Method / Collectio n Time Received Time / Laterality Volume Narrative ROSEANNE - 03/28/2016 1:31 AM EDT This exam is for storage only and is aut o-finalizing. Jason Mancilla MD IMG FILM LIBRARY ORDERABLES Performing Organization Address City/State/ZIP Code Phon e Number [facility] [place] documented in this encounter Visit Diagnoses Diagnosis Pain Generalized pain documented in this encounter Care Teams Canal Superintendent Relationship Specialty Start Date End Date Tarsah Williamson MD PCP - General 10/21/13 04/02/16 [facility] [place] [address] documented as of this encounter
--- OUTSIDE RECORDS SUMMARY | 2022-03-18 11:36 | XMS_ITS | Encounter Summary ---
:1970 [place] [address] Care Team Providers Name Role Phone Tarsha Williamson MD Primary Care Provider Reason for Visit Reason Comments Medication Refill Encounter Details Date Type Department Care Team Description 03/16/2014 Refill Neurology at [facility] Jose Covarrubias, [facility] [place] [address] NEUROLOGY DEPT [phone] [place], [place] [address] (Wo rk) Social History Tobacco [...] Cameron Alves MD [facility] [address] [place], [place] [address] (Wo rk) documented as of this encounter Visit Diagnoses Not on filedocumented in this encounter Care Teams Manager Office Services Relationship Specialty Start Date End Date Tarsha Wliliamson MD PCP - General 10/21/13 04/02/[address] [place] [address] [address] [place], [place] [id number] documented as of this encounter
--- OUTSIDE RECORDS SUMMARY | 2022-03-18 11:36 | XMS_ITS | Encounter Summary ---
:1970 Author Organization [facility] [place] [address] Care Team Providers Name Role Phone Tarsha Williamson MD Primary Care Provider Reason for Visit Auth/Cert Specialty Diagnoses / Procedures Referred By Contact Refer red To Contact Diagnoses hx of gastric ulcers, gastritis, duodenitis Procedures PRO UPPER GI ENDOSCOPY, DIAGNOSTIC PRO COLONOSCOPY, DIAGNOSTIC EGD, UPPER GI ENDOSCOPY COLONOSCOPY, DIAGNOSTIC Referral ID Status Reason Start Date Expiration Date Visits Requ ested Visits Authorized [id number] 1 1 Encounter Details Date Type Department Care Team Description 02/11/2016 Surgery [place] [facility] [place] Hardy, COLONOSCOPY FLEXIBLE, [facility] Madiha otoole MD WITH BX (WRVU 3.66) [place] [address] [facility] [phone] DR GASTROENTEROLOGY DEPT. [place], [place] [address] Social History Tobacco Use Types [...] Sign Reading Time Taken Comments Blood Pressure 115/78 02/11/2016 1:00 PM EDT Pulse 103 02/11/2016 1:00 PM EDT Temperature - - Respiratory Rate 11 02/11/2016 1:00 PM EDT Oxygen Saturation 100% 02/11/2016 1:00 PM EDT Inhaled Oxygen Concentration - - Weight - - Height - - Body Mass Index - - documented in this encounter Discharge Instructions Discharge InstructionsJason Cash RN - 02/11/2016 1:54 PM EDT UPPER GI ENDOSCOPY WHAT TO EXPECT AFTER THE PROCEDURE Medications You may have a mild sore throat. Ice chips, popsicles, over the counter throat lozenges or spray may help numb your throat. This procedure should not cause a fever. Call your healthcare provider or seek immediate medical attention if: You have trouble swallowing. You have belly pain. Your stools are black or tarlike or have streaks of blood. You are sick to your stomach or cannot keep fluids down. Watch closely for changes in your health, and be sure to contact your doctor IF Your throat still hurts after a day or two You do not get better as expected. Colonoscopy and polyp removal What to expect after the procedure You may feel a little more gassy or bloated than usual, this is normal. You should expect the return of normal bowel function in the next 2 to 3 days. Because some polyps were removed, you may see a little blood with the next few bowel movements, this should be a small amount ( less than a few tablespoons) and will resolve on it's own. ACTIVITY Because of the sedation that you received Your judgement and reaction time are effected ?? Go home and rest for the remainder for the day. You may resume your normal activities tomorrow ?? Change from one position to the next slowly because you may lose your balance unexpectedly. ?? Be careful on stairs, as you may be unsteady. FOR THE NEXT 24 HRS ?? DO NOT DRIVE OR OPERATE MACHINERY ?? DO NOT DRINK ALCOHOLIC BEVERAGES ?? DO NOT SIGN LEGAL DOCUMENTS ?? If you are a smoker: DO NOT SMOKE WHILE YOU ARE ALONE Diet ?? Start by eating small portions of foods that ordinarily will not upset your stomach, avoid gas producing foods for the next few days. ?? Be gentle with what you choose to start with ?? A soft diet may be helpful for the next 3 days as this may help to keep your stools soft. ?? Drink plenty of fluids ( unless your doctor has told you not to). Medicines Avoid medicines that influence the way your blood clots for the next week. These would include anti-inflammatory medicine, such as ibuprofen( Advil, Motrin) and naproxen ( Aleve). If you need something for discomfort, Tylenol (Acetaminophen) is safe if used as directed. Your Doctor will tell you whento restart your prescribed blood thinners The IV site-- slight tenderness, or redness is normal, you can use warm compresses if you get concerned. If the tenderness +/or redness increases or foul drainage and a red streak occurs, please contact your PCP immediately. When should you call for help? Call 911 anytime you think you may need emergency care. For example If you pass out (loss of consciousness) If you pass maroon or bloody stools If you have severe belly pain Call your healthcare provider or seek immediate medical care if: Your stools are black or tar like Your stools have streaks of blood that is more pronounced with each BM You have belly pain, or your belly is swollen and firm You vomit You have a fever You are very dizzy Watch closely for changes in your health, and be sure to contact your doctor if you have any problems. Your Doctor will let you know when you will need your next colonoscopy. The results of your test andyour risk for colorectal cancer will help your doctor decide how often you need to be checked. Wednesday-Wednesday Same Day Endo [phone]-8p Otherwise contact [phone] and ask to speak to the horologist highway traffic control technician Follow up care is a candelaria part of your treatment and safety. Be sure to make and go to all appointments, and call your doctor if you are having problems. Discharge instructions reviewed with patient who expresses understanding Patient InstructionsGoDavid altamirano MD - 02/11/2016 3:04 PM EDT Please see Recommendations in the Provation procedure report which is documented in the procedural note in E-DH. documented in this encounter Medications at Time [...] (PRILOSEC) 20 TAKE 1 CAPSULE BY 0 /01/201305/12/2017 mg Capsule, Delayed MOUTH DAILY FOR Release(E.C.) STOMACH ondansetron (ZOFRAN-ODT) 8 Take 1 tablet by 60 tablet 5 04/04/2016 mg Tablet, Rapid Dissolve mouth every 8 hours as needed for Nausea. scopolamine Place 1 patch onto 10 patch 12 02/03/201602/22 (TRANSDERM-SCOP) 1.5 mg (1 the skin every 3 mg over 3 days) patch 3 days. day rizatriptan (MAXALT) 5 mg Take 5 mg [...] times daily. documented as of this encounter H&P Notes Terry Shelby - 02/11/2016 12:11 PM EDT Gastroenterology and Hepatology Pre-Procedure History and Physical Exam Procedure: EGD: /Colonoscopy Indication: See GI clinic note for details, EGD/Colonoscopy for evaluation of gastric ulcers/dyspepsia and colonoscopy for evaluation of now resolving diarrhea Patient Active Problem List Diagnosis Code ??? Fibrocystic breast changes N60.19 ??? Breast cancer screening, high risk patient Z12.39 ??? Closed TBI (traumatic brain injury) S06.9X9A ??? Closed C1 fracture S12.000A ??? MCI (mild cognitive impairment) G31.84 ??? Altered mental status R41.82 ??? Headache R51 ??? Amnesia R41.3 ??? Weight loss R63.4 EXAM: HEENT: Airway examined, oropharynx clear Mallampati [...] procedure explained to the patient. Consent signed. Electronically signed by: Terry Shelby Gastroenterology Fellow [facility] Pager [phone] 02/11/2016 documented in this encounter Miscellaneous Notes Op Note - David Hardy MD - 02/11/2016 3:04 PM EDT [facility] Operative Note Patient Name: Lisseth Boone : [id number] MR#: [id number] Case Date: 02/11/2016 Surgeon: Surgeon(s) and Role: * David Hardy MD - Primary Preoperative diagnosis: hx of gastric ulcers, gastritis, duodenitis diarrhea Postoperative diagnosis: * No post-op diagnosis entered * Procedure(s): COLONOSCOPY FLEXIBLE, WITH BX UPPER GASTROINTESTINAL ENDOSCOPY,WITH BIOPSY SINGLE OR MULTIPLE Full procedure note is documented under the Procedure section of eDH. documented in this encounter Plan of Treatment Upcoming Encounters Date Type Specialty Care Team Description 04/14/2022 Office Visit Neurology Cameron Alves MD [facility] [address] [place], [place] [address] (Wo rk) documented as of this encounter Procedures Procedure Name Priority Date/Time Associated Comments Diagnosis SURGICAL PATHOLOGY Routine 02/11/2016 2:01 Result s for this REPORT PM EDT procedure are i n the results section. SPECIMEN TO PATHOLOGY Routine 02/11/2016 2:01 Res ults for this PM EDT procedure are i n the results section. SPECIMEN TO PATHOLOGY Routine 02/11/2016 2:01 Res ults for this PM EDT procedure are i n the results section. GASTRIN Routine 02/11/2016 2:00 Results for this PM EDT procedure are i n the results section. UPPER GASTROINTESTINAL 02/11/2016 12:29 Diarrhea ENDOSCOPY,WITH BIOPSY PM EDT Gastritis SINGLE OR MULTIPLE (WRVU 2.49) COLONOSCOPY FLEXIBLE, 02/11/2016 12:29 Diarrhea WITH BX (WRVU 3.66) PM EDT Gastritis UPPER GI ENDOSCOPY Routine 02/11/2016 12:18 Resul ts for this PM EDT procedure are i n the results section. COLONOSCOPY Routine 02/11/2016 12:17 Results for this PM EDT procedure are i n the results section. documented in this encounter Results Surgical Pathology Report (02/11/2016 2:01 PM EDT) [facility] Method Time Signature Surgical [id number] ? Location: 4T; EA; [facility] Report The signing pathologist has (i) examined the relevant preparation(s) for the [facility] specimen(s) and (ii) rendered or confirmed the diagnosis(es) . HOSPITAL LABORATORY . ?Surgic al Pathology DIAGNOSIS A - Colon, ??biopsy: - Melanosis coli. B - Stomach, ??biopsy: - Antrum-type mucosa with reactive gastropathy. - Body/fundic-type mucosa wi th parietal cell hyperplasia consistent with PPI effect. 02/12/16 AAY 02/13/16 Verified by: ? Luis Eckert MD ?Pathologist ?(Electronic Signature ) The attending pathologist whose signature appears on this re port has reviewed all diagnostic slides and has edited the gross and/ or microscopic portion of the report in sweetie dering the final pathologic diagnosis. CLINICAL INFORMATION Specimen Submitted: A - Colon biopsies to eval for microsocpic colitis B - EGD biopsies to evaluate for h.pylori Clinical History: EGD two history of ulcer disease, stomach biopsi es to evaluate for H. pylori, colonoscopy for evaluation of chronic diarrhea s/p ra ndom biopsies of colon Clinical Diagnosis: EGD two history of ulcer disease, stomach biopsi es to evaluate for H. pylori, colonoscopy for evaluation of chronic diarrhea s/p ra ndom biopsies of colon SPECIMEN PROCESSING A - Labeled/Fixative: Colon biopsies to evaluate for microscopic colitis, formalin. Quantity/Size: Seven, averaging 0.3 cm. Tissue Description: Polypoid dangelo soft tissues. Sections/Processing: (T2) B - Labeled/Fixative: EGD biopsy to evaluate for H. pylori, formalin. Quantity/Size: Two, 0.4 cm. Tissue Description: Polypoid dangelo soft tissues. Sections/Processing: (T1) ??shb Specimen (Source) Anatomical Collection Method Collection Time Re ceived Time Location / / Volume Laterality 02/11/2016 2:01 PM EDT Terry Shelby MD PATHOLOGY/CYTOLOGY ORDERABLE S Performing Organization Address City/State/ZIP Code Phon [place] [address] Specimen to Pathology (surgical or derm) (02/11/2016 2:01 PM EDT) Specimen Anatomical Collection Method Collection Time Receive d Time (Source) Location / / Volume Laterality AP Specimen 02/11/2016 2:01 PM 6 2:01 EDT PM EDT Narrative [facility] [place] - 02/11/2016 2:01 PM EDT Specimen requisition ordered. ??Separate Pathology report to follow David Hardy MD PATHOLOGY/CYTOLOGY ORDERABLE S Performing Organization Address City/State/ZIP Code Phon e Number [address] Specimen to Pathology (surgical or derm) (02/11/2016 2:01 PM EDT) Specimen Anatomical Collection Method Collection Time Receive d Time (Source) Location / / Volume Laterality AP Specimen 02/11/2016 2:01 PM 6 2:01 EDT PM EDT Narrative [facility] [place] - 02/11/2016 2:01 PM EDT Specimen requisition ordered. ??Separate Pathology report to follow David Hardy MD PATHOLOGY/CYTOLOGY ORDERABLE S Performing Organization Address City/State/[place] [address] (ABNORMAL) Gastrin (02/11/2016 2:00 PM EDT) athologist Signature Gastrin 114 (H) pg/mL [facility] Comment: REFERENCE VALUE------ <100 Reference ranges valid for >= 8 hour fast. Test Performed by: [address] [address] Customer Service Security Officer: Cooper Lee II, M.D., Ph.D. Specimen Anatomical Collection Method Collection Time Receive d Time (Source) Location / / Volume Laterality Blood specimen 02/11/2016 2:00 PM 016 9:19 (specimen) EDT AM EDT Resulting Agency Comment Spec In Lab David Hardy MD CHEMISTRY ORDERABLES Performing Organization Address City/State/[place] [address] UPPER GI ENDOSCOPY (02/11/2016 12:18 PM EDT) Component Value Ref Test Analysis Performed At [facility] Range Method Time Signature UPPER GI [facility] ENDOS[facility] Endoscopy Patient Name: Lisseth Boone ? Procedure Date: 02/11/2016 12:18 PM ? N: [id number] ? Date of : 1970 ? Age: 45 ? Order #: [id number] ? Procedure: ? Upper GI endoscopy Indications: ? Abdominal pain, Follow-up of peptic ? ulcer Providers: ? David Hardy MD, Terry Richard , ? , Bhavani Helm, RN, C atherine ? Yaneth Alcala, Cream Beater Referring MD: ?Tarsha Williamson MD Medicines: ? Midazolam 5 mg IV, Fentanyl 200 ? micrograms IV, Diphenhydramin e 50 mg ? IV, Benzocaine spray Complications: ? No immediate complications. Procedure: ? Pre-Anesthesia Assessment: ? - Prior to the procedure, a H istory ? and Physical was performed, a nd ? patient medications, allergie s and ? sensitivities were reviewed. The ? patient's tolerance of previo us ? anesthesia was reviewed. ? - The risks and benefits of t he ? procedure and the sedation op tions ? and risks were discussed with the ? patient. All questions were a nswered ? and informed consent was obta ined. ? - ASA Grade Assessment: II - A ? patient with mild systemic di sease. ? The procedure, indications, b enefits, ? risks and alternatives were e xplained ? to the patient. Specifically ? discussed were potential ? complications including, but not ? limited to, bleeding, perfora tion, ? infection, missing a cancer, and ? adverse medication reactions. The ? Endoscope was introduced thro ugh the ? mouth, and advanced to the se cond ? part of duodenum. The patient ? tolerated the procedure well. The ? patient tolerated the procedu re well. ? Findings: ? The esophagus was normal. ? The stomach was normal. ? A series of acquired benign-appearing, intrinsic ? moderate stenoses were found in a deformed duodenal ? bulb containing undigested vegetable material that ? was traversed after dilation (3 stenoses in tandem, ? each with focal ulceration) . A TTS dilator was ? passed through the scope. Dilation with a 10 mm ? pyloric balloon dilator was performed which then ? allowed passage of the scope. ? The ampulla and 2nd part of the duodenum were normal. ? Biopsies were taken with a cold forceps in the ? gastric antrum for Helicobacter pylori testing. ? Impression: ?- Normal esophagus. ? - Normal stomach. ? 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 previous ulcer disease. Dilat ed to 10 ? mm to allow passage of the sc ope. ? - Normal ampulla and 2nd part of the ? duodenum. ? - Biopsies were taken with a cold ? forceps for Helicobacter pylo ri ? testing. Recommendation: ?- Await pathology results. ? - Check serum gastrin level. ? - No NSAIDs. ? - Repeat the upper endoscopy PRN for ? retreatment. ? - The attending physician nino north ? above was present for the ent sridevi ? procedure. ? David Hardy MD 02/11/2016 1:08:12 PM This report has been signed electronically. Number of Addenda: 0 Note Initiated On: 02/11/2016 12:18 PM Specimen (Source) Anatomical Collection Method Collection Time Re ceived Time Location / / Volume Laterality 02/11/2016 12:18 PM EDT Tarsha Williamson MD GENERAL SURGICAL ORDERABLES Performing Organization Address City/State/ZIP Code Phon e Number [facility] COL[facility] (02/11/2016 12:17 PM EDT) [facility]ist Method Time Signature COLONOSCOPY [facility] Endoscopy Patient Name: Lisseth Boone ? Procedure Date: 02/11/2016 12:17 PM ? Date of : 1970 ? Age: 45 ? Order #: [id number] ? Procedure: ? Colonoscopy Indications: ? Chronic diarrhea Providers: ? David Hardy MD, Bhavani Doyle ? UCHE Helm, Sue Valencia, ? Cream Beater, Ashish Campbell Referring MD: ?Tarsha Williamson MD Medicines: ? Fentanyl 50 micrograms IV, Midazol am ? 1 mg IV Complications: ? No immediate complications. Procedure: ? Pre-Anesthesia Assessment: ? - Prior to the procedure, a H istory ? and Physical was performed, a nd ? patient medications and aller gies ? were reviewed. The patient is ? competent. The risks and bene fits of ? the procedure and the sedatio n ? options and risks were discus sed with ? the patient. All questions we re ? answered and informed consent was ? obtained. Patient identificat ion and ? proposed procedure were verif ied by ? the physician and the nurse i n the ? pre-procedure area in the pro cedure ? room. Mental Status Examinati on: ? normal. Airway Examination: n ormal ? oropharyngeal airway and neck ? mobility. Respiratory Examina tion: ? clear to auscultation. CV ? Examination: normal. ASA Grad e ? Assessment: II - A patient wi th mild ? systemic disease. After revie wing the ? risks and benefits, the patie nt was ? deemed in satisfactory condit ion to ? undergo the procedure. The an esthesia ? plan was to use moderate homer tion / ? analgesia (conscious sedation ). ? Immediately prior to administ ration ? of medications, the patient w as ? re-assessed for adequacy to r eceive ? sedatives. The heart rate, ? respiratory rate, oxygen satu rations, ? blood pressure, adequacy of p ulmonary ? ventilation, and response to care ? were monitored throughout the ? procedure. The physical statu s of the ? patient was re-assessed after the ? procedure. ? The procedure, indications, b enefits, ? risks and alternatives were e xplained ? to the patient. Specifically ? discussed were potential ? complications including, but not ? limited to, bleeding, perfora tion, ? infection, missing a cancer, and ? adverse medication reactions. The ? patient was placed in the lef t ? lateral decubitus position, a nd a ? digital rectal exam was perfo rmed. ? The Colonoscope was inserted in the ? anus and under direct visuali zation, ? advanced to the terminal ileu m. ? Careful inspection was made a s the ? colonoscope was withdrawn. Th e ? colonoscopy was performed wit hout ? difficulty. The patient nicol ated the ? procedure well. The quality o f the ? bowel preparation was good. ? Findings: ? The perianal and digital rectal examinations were ? normal. ? The lumen of the colon (entire examined portion) was ? mildly dilated consistent with a redundant colon. ? The terminal ileum appeared normal. ? The colon (entire examined portion) mucosa appeared ? normal. Biopsies for histology were taken with a cold ? forceps from the entire colon for evaluation of ? microscopic colitis. ? Impression: ?- No source of diarrhea noted on t his ? exam ? - Normal colonic mucosa ? - Normal terminal ileum ? - S/p random colonic biopsies to ? evaluate for microscopic coli tis ? - Redundant colon Recommendation: ?- Discharge to home ? - F/u path ? Attending Participation: ? I was present and participated during the entire ? procedure, including non-candelaria portions. ? David Hardy MD 02/11/2016 1:37:01 PM This report has been signed electronically. Number of Addenda: 0 Note Initiated On: 02/11/2016 12:17 PM Specimen (Source) Anatomical Collection Method Collection Time Re ceived Time Location / / Volume Laterality 02/11/2016 12:17 PM EDT Tarsha Williamson MD GENERAL SURGICAL ORDERABLES Performing Organization Address City/State/ZIP Code Phon e Number [facility] documented in this encounter Visit Diagnoses Diagnosis Diarrhea Gastritis Unspecified gastritis and gastroduodenit is without mention of hemorrhage documented in this encounter Administered Medications Inactive Administered Medications - up to 3 most recent administrations Medication Order MAR Action Action Date Dose Rate Site benzocaine (TOPEX) 20 % oral Given 02/11/2016 12:32 PM EDT 6 eac h spray ONCE PRN, Starting on e 02/11/16 at 1232, Until Wed02/11/16 at 1651, Intra-Operative (Intra-Procedure) diphenhydrAMINE (BENADRYL) injection Given 02/11/2016 12:37 PM EDT 25 mg ONCE PRN, Starting on e 02/11/16 at 1232, Until Wed02/11/16 at 1651, Intra-Operative (Intra-Procedure), Routine Given 02/11/2016 12:32 PM EDT 25 mg fentaNYL 50 mcg/mL multi-dose injection Given 02/11/2016 1:08 PM EDT 50 mcg ONCE PRN, Starting on Wed02/11/16 at 1233, Until Wed02/11/16 at 1651, Intra-Operative (Intra-Procedure), Routine Given 02/11/2016 12:57 PM EDT 50 mcg Given 02/11/2016 12:43 PM EDT 25 mcg lactated ringers infusion New Bag 02/11/2016 11:30 AM EDT 50 mL/hr 50 mL/hr 50 mL/hr, Intravenous, CONTINUOUS, Starting on Wed02/11/16 at 1130, Until Wed02/11/16 at 1427, Endoscopy (Day of Procedure) midazolam (PF) (VERSED) 1 mg/mL multi-dose Given 02/11/2016 1:10 PM EDT 0.5 mg injection ONCE PRN, Starting on Wed02/11/16 at 1233, Until Wed02/11/16 at 1651, Intra-Operative (Intra-Procedure), Routine Given 02/11/2016 1:08 PM EDT 0.5 mg Given 02/11/2016 12:50 PM EDT 1 mg documented in this encounter Active and Recently Administered Medications Times are shown in EDT. Continuous Medication Order 02/09/2016 02/10/2016 02/11/2016 lactated ringers infusion (CANCELED) 1130 (New Bag - Provider: Joanna Varghese RN) 50 mL/hr, at 50 mL/hr, Intravenous, CONT INUOUS, Starting e 02/11/16 at 1130, Until Wed02/11/16 at 1427, Endo (Day of Procedure) PRN Medication Order 02/09/2016 02/10/2016 02/11/2016 benzocaine (TOPEX) 20 % oral spray (CANCELED) 1232 (Given - Provider: Sue Alcala) ONCE PRN, Starting Wed02/11/16 at 1232, Intra-Operative (Intra-P rocedure) diphenhydrAMINE (BENADRYL) injection (CANCELED) 1232 (Given - Provider: Bhavani Helm RN)1237 (Given - Provider: Bhavani Helm RN) ONCE PRN, Starting Wed02/11/16 at 1232, Until Wed02/11/16 at 1651, Intra- Operative (Intra-Procedure), Routine fentaNYL 50 mcg/mL multi-dose injection (CANCELED) 1233 (Given - Provider: Bhavani Helm RN)1238 (Given - Provider: Bhavani Helm RN)1240 (Given - Provider: Bhavani Helm RN)1243 (Given - Provider: Bhavani Helm RN)1257 (Given - Provider: Bhavani Helm RN) ONCE PRN, Starting Wed02/11/16 at 1233, Until Wed02/11/16 at 1651, Intra- Operative (Intra-Procedure), Routine 130 8 (Given - Provider: Bhavani Helm RN) midazolam (PF) (VERSED) 1 mg/mL multi-dose injection (CANCELED) 1233 (Given - Provider: Bhavani Helm RN)1238 (Given - Provider: Bhavani Helm RN)1240 (Given - Provider: Bhavani Helm RN)1243 (Given - Provider: Bhavani Helm RN)1250 (Given - Provider: Bhavani Helm RN) ONCE PRN, Starting Wed02/11/16 at 1233, Until Wed02/11/16 at 1651, Intra- Operative (Intra-Procedure), Routine 130 8 (Given - Provider: Bhavani Helm RN)1310 (Given - Provider: Bhavani Helm RN) documented in this encounter Care Teams Literacy Education Professor Relationship Specialty Start Date End Date Tarsha Williamson MD PCP - General 10/21/13 04/02/[address] [place] [address] [place] [address] documented as of this encounter
--- OUTSIDE RECORDS SUMMARY | 2022-03-18 11:36 | XMS_ITS | Encounter Summary ---
:1970 Author Organization [facility] [place] [address] Care Team Providers Name Role Phone Tarsha Williamson MD Primary Care Provider Encounter Details Date Type Department Care Team Description 02/09/2016 Orders Only Gastroenterology at [facility] O'Chyna, Tracia, Lower abdominal pain [facility] [place] [address] [facility] [phone] CENTER [place]STRO[place] [address] Social History Tobacco Use Types Packs/Day Years [...] [facility] [address] [place], [place] [address] (Wo rk) documented as of this encounter Results (ABNORMAL) Comprehensive metabolic panel (non-fasting) (09/21/2016 3:52 PM EST) athologist Signature Glucose Lvl 97 65 - 199 [facility] mg/dL [facility] Comment: Diabetes: >=200 mg/dL plus symp toms BUN 9 8 - 18 mg/dL [facility] Creatinine 0.86 0.70 - 1.20 mg/dL [facility] Comment: Please note that the pediatric reference intervals supplied above were not validated at [facility]. Results from pediatri c patients should be interpreted in conjunction to the patient's age, height and muscle mass. Sodium 145 135 - 145 mmol/L [facility] Potassium 3.9 3.5 - 5.0 mmol/L [facility] Comment: Please note: ??Patients with WBC >100,00 0 may have falsely elevated Potassium levels. ??For accurate Potassium quantif ication in these patients send serum separator tube (gold top) for subsequent determinations. ??Contact the Clinical Chemistry Laboratory if there are any qu estions. Chloride 111 (H) 98 - 107 mmol/L [facility] CO2 22 22 - 31 mmol/L [facility] Anion Gap 12 5 - 15 mmol/L [facility] Calcium 9.6 8.5 - 10.5 mg/dL [facility] Total Protein 7.5 6.1 - 8.0 gm/dL [facility] Albumin 4.5 3.2 - 5.2 gm/dL [facility] AST 16 0 - 30 unit/L [facility] ALT 13 0 - 30 unit/L [facility] Alk Phos 75 40 - 104 unit/L [facility] Total Bilirubin 0.3 0.2 - 1.3 mg/dL [facility] Bili, Direct 0.1 0.0 - 0.3 mg/dL [facility] Estimated GFR >60 >=60 [facility] Comment: This estimated GFR (eGFR) [...] the following links into your internet browser. http://[employer]/DHnkdep http://[employer]/DHMCnkf Specimen Anatomical Collection Method Collection Time Receive d Time (Source) Location / / Volume Laterality Blood specimen 09/21/2016 3:52 PM 017 3:59 (specimen) EST PM EST Resulting Agency Comment Spec In Lab Jose De Jesus Martinez MD CHEMISTRY ORDERABLES Performing Organization Address City/State/ZIP [place] [address] documented in this encounter Visit Diagnoses Diagnosis Lower abdominal pain Abdominal pain, other specified site documented in this encounter Care Teams Athletic Monitor Relationship Specialty Start Date End Date Tarsha Williamson MD PCP - General 10/21/13 04/02/[address] [place] [address] [place] [address] documented as of this encounter
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
--- OUTSIDE RECORDS SUMMARY | 2022-03-18 11:36 | XMS_ITS | Encounter Summary ---
:1970 [place] [address] Care Team Providers Name Role Phone Charmaine Ayala MD Primary Care Provider Reason for Visit Reason Onset Date Comments Anxiety 02/15/2013 Encounter Details Date Type Department Care Team Description 02/15/2013 Telephone General Surgery at [facility] La Ashton APRN [facility] [place] [address] [place] [address] [phone] (Wo rk) Social History Tobacco Use Types Packs/Day Years Used Date Current Every Day Smoker Cigarettes 1 15 Candelario t: 09/16/2012 Smokeless Tobacco: Never Used Alcohol Use Standard Drinks/Week Comments Yes 0 (1 standard drink = 0.6 oz pure alcoho l) Occasional Alcohol Habits Answer Date Recorded How often do you have a drink containing alcohol? Not asked How many drinks containing alcohol do you have on a typical Not asked day when you are drinking? How often do you have six or more drinks on one occasion? No t asked Comment: Occasional 01/16/2013 Sex Assigned at Date Recorded Not on file documented as of this encounter Miscellaneous Notes Telephone Encounter - La Ashton APRN - 02/15/2013 3:24 PM EDT 3:10pm. Received call from Carolina Okeefe APRN Neurosurgery who had just received a distressed call from Lisseth. Reportedly, Lisseth has been working with her PCP to transition off clonazepam, with the goal of being on sertraline. This, among multiple other stressors, has contributed to the crisis edward, where she stated to Carolina that she did not feel that she was safe (r/t her own life as well as those around her). She told Carolina that she was on her way to the ED. 3:15pm. I spoke to Lisseth. She stated she was home alone, waiting for her to come pick her up to take her to the hospital. She was quite tearful, difficulty talking on the phone. She stated she had not done anything to harm herself and ultimately stated that she would not do anything to harm herself before her 's arrival. Provided direction / suggestion for coping strategy to urgentlyalter sensory experience (acquire and hold an ice cube until it melts), to offer some task, extreme sensation distraction that would not result in any harm. I offered to speak to [facility] ED to offer report as well as to her PCP, which she agreed to. 3:25pm. I gave report to ED staff at [facility], that this is a 42yo woman with history of several traumatic brain injuries, with marked depressed mood and anxiety, and recent attempts to be weaned from anxiolytics. Offered to be available to medical and/or psychiatric team there if I could be helpful regarding these acute psychiatric symptoms in the setting of disabling post concussive syndrome. 3:30pm I have left a voicemail with Dr Ayala's office at [phone], offering consultation / collaboration regarding Ms Boone's care. Allegra Ashton APRN, CBIS Trauma Division, Section of Trauma and Acute Care Surgery Department of General Surgery, [facility] Pager [phone] documented in this encounter Plan of Treatment Upcoming Encounters Date Type Specialty Care Team Description 04/14/2022 Office Visit Neurology Cameron Alves MD [facility] [place] [phone] (Wo rk) documented as of this encounter Visit Diagnoses Not on filedocumented in this encounter Care Teams Water Filter Cleaner Relationship Specialty Start Date End Date [place], Charmaine, MD PCP - General 11/21/12 02/28/13 [address] [place] [address] documented as of this encounter
--- OUTSIDE RECORDS SUMMARY | 2022-03-18 11:36 | XMS_ITS | Encounter Summary ---
:1970 Author Organization [facility] [place] [address] Care Team Providers Name Role Phone Tarsha Williamson MD Primary Care Provider Encounter Details Date Type Department Care Team Description 02/19/2016 Telephone Gastroenterology at [facility] [place] [address] Social History Tobacco Use Types Packs/Day Years Used Date Former Smoker Cigarettes 0 15 Quit: 12/09/19 03 Smokeless Tobacco: Never Used Alcohol Use Standard Drinks/Week Comments No 0 (1 standard drink = 0.6 oz pure alcoho l) Sex Assigned at Date Recorded Not on file documented as of this encounter Miscellaneous Notes Telephone Encounter - Dominick Crabtree, RN - 02/25/2016 2:50 PM EDT Telephoned, spoke with patient, discussed test results per Rafa Ocampo, [place]: Given the results of the egd (please review) She needs to 1. Stop zegerid 2. Start nexium 40mg bid 3. Start Carafate 2tsps after meals. Then cannot eat or drink for 1-2 hours after taking this med Let pt know I faxed in scopolamine patches And I do not see any results for u/s Did she have somewhere else? Patient reports she has not had u/s done. She will have [facility] forward CT scan report to [facility]. Patient understands biopsy results non-concerning. Patient understands Tracia's instruction to stop zegerid. She is willing to start taking Nexium. Patient reports inability to tolerate carafate/sucralfate liquid (causes nausea - unable to keep this medication down). Asks for a prescription for tablet form of this medication. Please send prescriptions for Nexium and tablet form of sucralfate to her preferred pharmacy ([facility] [place], [place] - [address] [facility] [address] [facility] [phone] Telephone Encounter - Agnieszka Zabala RN - 02/19/2016 4:07 PM EDT Patient called today and left message stating that she would like to discuss the results of her endoscopy, her recent lab results, as well as the results of her liver US with her provider, Rafa Ocampo APRN. Patient has concerns because her WBCs spike every month. Finally, she states that her loose stools have decreased a bit but her nausea has gotten worse because she lost her scopolamine patches. She went boating over the weekend with her children and she had two bags packed with all of their belongings. She was unable to locate the box of scopolamine patchesat the end of the day and is now requesting a new prescription for these ([facility] in [place]). Message forwarded to Rafa Ocampo for her consideration. documented in this encounter Plan of Treatment Upcoming Encounters Date Type Specialty Care Team Description 04/14/2022 Office Visit Neurology Cameron Alves MD [facility] [place] [phone] (Wo rk) documented as of this encounter Visit Diagnoses Not on filedocumented in this encounter Care Teams Stoneworker Relationship Specialty Start Date End Date Tarsha Williamson MD PCP - General 10/21/13 04/02/[address] [place] [address] [place] [address] documented as of this encounter
--- OUTSIDE RECORDS SUMMARY | 2022-03-18 11:36 | XMS_ITS | Encounter Summary ---
:1970 Author Organization [facility] [place] [address] Care Team Providers Name Role Phone Tarsha Williamson MD Primary Care Provider Reason for Visit Reason Onset Date Comments Medication Refill 03/28/2015 Encounter Details Date Type Department Care Team Description 03/28/2015 Refill Neurology at [facility] Umair Ivory MD [facility] [place] [phone] NEUROLOGY DEPT. [phone] [place], [place] [address] (Wo rk) Social History Tobacco [...] Office Visit Neurology Cameron Alves MD [facility] er [address] [place] [address] (Wo rk) documented as of this encounter Visit Diagnoses Not on filedocumented in this encounter Care Teams Tray Line Worker Relationship Specialty Start Date End Date Tarsha Williamson MD PCP - General 10/21/13 04/02/[address] [place] [address] DR [place] [id number] documented as of this encounter
--- OUTSIDE RECORDS SUMMARY | 2022-03-18 11:36 | XMS_ITS | Encounter Summary ---
:1970 Author Organization [facility] [place] [address] Care Team Providers Name Role Phone Travis Torres MD Primary Care Provider Reason for Visit Reason Comments Medication Refill Encounter Details Date Type Department Care Team Description 07/20/2015 Refill Neurology at [facility] Umair Ivory MD [facility] [place] [address] NEUROLOGY DEPT. [phone] [place], [place] [address] (Wo rk) Social History Tobacco [...] Alves MD [facility] [address] [place], [place] [address] (Wo rk) documented as of [...] on filedocumented in this encounter Care Teams Java Core Developer Relationship Specialty Start Date End Date Travis Torres MD PCP - General Family Medicine 01/09/22 [place] [address] documented as of this encounter
--- OUTSIDE RECORDS SUMMARY | 2022-03-18 11:36 | XMS_ITS | Encounter Summary ---
:1970 Author Organization [facility] [place] [address] Care Team Providers Name Role Phone Tarsha Williamson MD Primary Care Provider Reason for Visit Reason Onset Date Comments Medication Refill 07/22/2015 Encounter Details Date Type Department Care Team Description 07/22/2015 Refill Neurology at [facility] Antonia Gonzalez [place] [facility] [place] [address] NEUROLOGY DEPT. [phone] [place], [place] [address] (Wo rk) Social History Tobacco [...] MD [facility] [address] [place] [address] (Wo rk) documented as of this encounter Visit Diagnoses Not on filedocumented in this encounter Care Teams Doctor Of Radiology Relationship Specialty Start Date End Date Tarsha Williamson MD PCP - General 10/21/13 04/02/[address] [place] [address] [address] [place] [id number] documented as of this encounter
--- OUTSIDE RECORDS SUMMARY | 2022-03-18 11:36 | XMS_ITS | Encounter Summary ---
:1970 Author Organization [facility] [place] [address] Care Team Providers Name Role Phone Tarsha Williamson MD Primary Care Provider Reason for Visit Reason Onset Date Comments Other 12/23/2015 Other Encounter Details Date Type Department Care Team Description 12/23/2015 Telephone Neurology at [facility] Cheri, Other (Other) [facility] [place] [address] [facility] [phone] NEUROLOGY DEPT [place], [place] [address] (Wo rk) Social History Tobacco Use Types Packs/Day Years Used Date Former Smoker Cigarettes 0 15 Quit: 12/09/19 03 Smokeless Tobacco: Never Used Alcohol Use Standard Drinks/Week Comments No 0 (1 standard drink = 0.6 oz pure alcoho l) Sex Assigned at Date Recorded Not on file documented as of this encounter Miscellaneous Notes Telephone Encounter - Allyn Mane S - 12/23/2015 9:37 AM EDT Patient called in today stating that she is on a family vacation and ended up in the ER where she isand they gave her a cocktail of Zofran, Toradol, benadryl, and a muscle relaxer that did help her sleep a little. Patient states hey will not help her further though, as she needs to see her Neurologist. Patient states she would like a call back to discuss. documented in this encounter Plan of Treatment Upcoming Encounters Date Type Specialty Care Team Description 04/14/2022 Office Visit Neurology Cameron Alves MD [facility] [address] [place], [place] [address] (Wo rk) documented as of this encounter Visit Diagnoses Not on filedocumented in this encounter Care Teams Vp Foundation Relationship Specialty Start Date End Date Tarsha Williamson MD PCP - General 10/21/[address] [place] [address] [place] [address] documented as of this encounter
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
--- OUTSIDE RECORDS SUMMARY | 2022-03-18 11:36 | XMS_ITS | Encounter Summary ---
:1970 Author Organization [place] [place] [address] Care Team Providers Name Role Phone Tarsha Williamson MD Primary Care Provider Reason for Visit Auth/Cert Specialty Diagnoses / Procedures Referred By Contact Refer red To Contact Diagnoses hx of gastric ulcers, gastritis, duodenitis Procedures PRO UPPER GI ENDOSCOPY, DIAGNOSTIC PRO COLONOSCOPY, DIAGNOSTIC EGD, UPPER GI ENDOSCOPY COLONOSCOPY, DIAGNOSTIC Referral ID Status Reason Start Date Expiration Date Visits Requ ested Visits Authorized [id number] 1 1 Encounter Details Date Type Department Care Team Description 02/11/2016 Hospital Encounter Gastroenterology at [facility] David Hardy, [facility] Madiha [place] [address] [facility] [phone] CENTER GASTROENTEROLOGY DEPT. [place], [place] [address] Social History Tobacco Use Types [...] Sign Reading Time Taken Comments Blood Pressure 104/73 02/11/2016 1:45 PM EDT Pulse 112 02/11/2016 1:30 PM EDT Temperature - - Respiratory Rate 17 02/11/2016 1:30 PM EDT Oxygen Saturation 100% 02/11/2016 1:45 PM EDT Inhaled Oxygen Concentration - - [...] to be checked. Wednesday-Wednesday Same Day Endo [phone]-8p Otherwise contact [phone] and ask to speak to the sausage linker fuel verification technician Follow up care is a candelaria [...] (PRILOSEC) 20 TAKE 1 CAPSULE BY 0 05/1 01/201305/12/2017 mg Capsule, Delayed MOUTH DAILY FOR [...] daily. documented as of this encounter H&P Terry Luna - 02/11/2016 12:11 PM EDT Gastroenterology and [...] Electronically signed by: Terry Shelby Gastroenterology Fellow [facility] Pager [phone] 02/11/2016 documented in this encounter Miscellaneous Notes Op Note - David Hardy MD - 02/11/2016 3:04 PM EDT [facility] Operative Note Patient Name: Lisseth Boone : [id number] MR#: [id number] Case Date: 02/11/2016 Surgeon: Surgeon(s) and Role: [...] Office Visit Neurology Cameron Alves MD [facility] [address] [place] [address] (Wo rk) [...] Surgical Pathology Report (02/11/2016 2:01 PM EDT) [facility] Method Time Signature Surgical [id number] ? Location: ; [facility]; [facility] Report The signing pathologist has (i) examined [...] Organization Address City/State/[place] [address] Specimen to Pathology (surgical or derm) (02/11/2016 2:01 PM EDT) Specimen Anatomical Collection Method Collection Time Receive d Time (Source) Location / / Volume Laterality AP Specimen 02/11/2016 2:01 PM 6 2:01 EDT PM EDT Narrative [facility] - 02/11/2016 2:01 PM EDT Specimen requisition ordered. ??Separate Pathology report to follow David Hardy MD PATHOLOGY/CYTOLOGY ORDERABLE S Performing Organization Address City/State/ZIP Code Phon e Number [address] Specimen to Pathology (surgical or derm) (02/11/2016 2:01 PM EDT) Specimen Anatomical Collection Method Collection Time Receive d Time (Source) Location / / Volume Laterality AP Specimen 02/11/2016 2:01 PM 6 2:01 EDT PM EDT Narrative [facility] - 02/11/2016 2:01 PM EDT Specimen requisition ordered. ??Separate Pathology report to follow David Hardy MD PATHOLOGY/CYTOLOGY ORDERABLE S Performing Organization Address City/[facility] Phon e Number [address] (ABNORMAL) [place] (02/11/2016 2:00 PM EDT) P athologist Signature [place] 114 (H) pg/mL [facility] LAB[facility]ORY Comment: REFERENCE VALUE------ <100 Reference ranges valid for >= 8 hour fast. Test Performed by: [address] [address] Speech And Language Assistant: Cooper Lee II, M.D., Ph.D. Specimen Anatomical Collection Method Collection Time Receive d Time (Source) Location / / Volume Laterality Blood specimen 02/11/2016 2:00 PM 016 9:19 (specimen) EDT AM EDT Resulting Agency Comment Spec In Lab David Hardy MD CHEMISTRY ORDERABLES Performing Organization Address City/State/[place] [address] UPPER GI ENDOSCOPY (02/11/2016 12:18 PM EDT) Component Value Ref Test Analysis Performed At [facility] Range Method Time Signature UPPER GI [facility] ENDOSCOPY Endoscopy Patient Name: Lisseth Boone ? Procedure Date: 02/11/2016 12:18 PM ? N: [id number] ? Date of : 1970 ? Age: 45 ? Order #: [id number] ? Procedure: ? Upper GI endoscopy Indications: ? Abdominal pain, Follow-up of peptic ? ulcer Providers: ? David Hardy MD, Terry Richard , ? , Bhavani Helm, RN, C atherine ? Yaneth Alcala, Medical Doctor Nuclear Medicine Referring MD: ?Tarsha Williamson MD Medicines: ? [...] Number [facility] COLONOSCOPY (02/11/2016 12:17 PM EDT) [facility] Method Time Signature COLONOSCOPY [facility] Endoscopy Patient Name: Lisseth Boone ? Procedure Date: 02/11/2016 12:17 PM ? Date of : 1970 ? Age: 45 ? Order #: [id number] ? Procedure: ? Colonoscopy Indications: ? Chronic diarrhea Providers: ? David Hardy MD, Bhavani Doyle ? UCHE Helm, Sue Valencia, ? Medical Doctor Nuclear Medicine, Ashish Campbell Referring MD: ?Tarsha Williamson MD [...] Rate Site lactated ringers infusion New Bag 02/11/2016 11:30 AM EDT 50 mL/hr 50 mL/hr 50 mL/hr, Intravenous, CONTINUOUS, Starting on Wed02/11/16 at 1130, Until Wed02/11/16 at 1427, Endoscopy (Day of Procedure) documented in this encounter Active and Recently Administered Medications Times are shown in EDT. Continuous Medication Order 02/09/2016 02/10/2016 02/11/2016 lactated ringers infusion (CANCELED) 1130 (New Bag - Provider: Joanna Varghese, UCHE) 50 mL/hr, at 50 mL/hr, Intravenous, CONT INUOUS, Starting Wed02/11/16 at 1130, Until Wed02/11/16 at 1427, Endo (Day of Procedure) PRN Medication Order 02/09/2016 02/10/2016 02/11/2016 benzocaine (TOPEX) 20 % oral spray (CANCELED) 1232 (Given - Provider: Sue Alcala) ONCE PRN, Starting e 02/11/16 at 1232, Intra-Operative (Intra-P rocedure) diphenhydrAMINE (BENADRYL) injection (CANCELED) 1232 (Given - Provider: Bhavani Helm RN)1237 (Given - Provider: Bhavani Helm RN) ONCE PRN, Starting e 02/11/16 at 1232, Until Wed02/11/16 at 1651, Intra- Operative (Intra-Procedure), Routine fentaNYL 50 mcg/mL multi-dose injection (CANCELED) 1233 (Given - Provider: Bhavani Helm RN)1238 (Given - Provider: Bhavani Helm RN)1240 (Given - Provider: Bhavani Helm RN)1243 (Given - Provider: Bhavani Helm RN)1257 (Given - Provider: Bhavani Helm, UCHE) ONCE PRN, Starting e 02/11/16 at 1233, Until Wed02/11/16 at 1651, Intra- Operative (Intra-Procedure), Routine 130 8 (Given - Provider: Bhavani Helm RN) midazolam (PF) (VERSED) 1 mg/mL multi-dose injection (CANCELED) 1233 (Given - Provider: Bhavani Helm RN)1238 (Given - Provider: Bhavani A Henagar, RN)1240 (Given - Provider: Bhavani Helm RN)1243 (Given - Provider: Bhavani Helm, RN)1250 (Given - Provider: Bhavani Helm, RN) ONCE PRN, Starting 02/11/16 at 1233, Until Tu02/11/16 at 1651, Intra- Operative (Intra-Procedure), Routine 130 8 (Given - Provider: Bhavani Helm RN)1310 (Given - Provider: Bhavani Helm, RN) documented in this encounter Care Teams Outside Barrel Lathe Operator Relationship Specialty Start Date End Date Tarsha Williamson MD PCP - General 10/21/13 04/02/[address] [place] [address] [place] [address] documented as of this encounter
--- OUTSIDE RECORDS SUMMARY | 2022-03-18 11:36 | XMS_ITS | Encounter Summary ---
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 agree with above report. 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 Technique Routine noncontrast MRI of the brain. Findings No evidence of hemoglobin degradation pr oducts on the gradient sequence. ??Mild FLAIR changes projecting in the perivent ricular white matter adjacent frontal horns and occipital horns of the lateral ventricles common nonspecific. ??No mass, mass effect, midline shift or extr a-axial fluid collection. ??The hippocampal formations are normal in mor phology and signal. ??No evidence of cortical dysplasia or heterotopia. ?? Impression Negative exam. Procedure Note Poncho Pacheco MD - 10/23/2013Formatt ing of this note might be different from the original. 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 Technique Routine noncontrast MRI of the brain. Findings No evidence of hemoglobin degradation pr oducts on the gradient sequence. Mild FLAIR changes projecting in the perivent ricular white matter adjacent frontal horns and occipital horns of the lateral ventricles common nonspecific. No mass, mass effect, midline shift or extr a-axial fluid collection. The hippocampal formations are normal in mor phology and signal. No evidence of cortical dysplasia or heterotopia. Impression Negative exam. Poncho Zhang III, MD [facility] MRI ORDERABLES Rapid Qual Drug Screen, Urine ([facility] [place]) (10/22/2013 4:08 PM EDT) [facility] Method Time Signature PREM Marijuana None None CERNER Metabolites Scr Detected Detected MILLENNIUM Comment: The marijuana metabolites screen detects the THC Metabolite (71-qfs-4-carboxy-? 9-THC) at concentrations >50 ng/mL. Qualitative Drug screens are reported as None Detected or Presumptive Positive as the results are not routine ly confirmed by highly-specific methods. As with any screen occasional f alse positive results from cross-reacting substances can occur. Not for Medico-Legal Purposes. PREM Phencyclidine Scr None Detected None Detected CERNER MILLENNIUM Comment: The phencyclidine screen detects phencyc lidine at concentrations >25 ng/mL. Qualitative Drug screens are reported as None Detected or Presumptive Positive as the results are not routine ly confirmed by highly-specific methods. As with any screen occasional f alse positive results from cross-reacting substances can occur. Not for Medico-Legal Purposes. PREM Cocaine Metabolites Scr None Detected None Detected CERNER MILLENNIUM Comment: The cocaine metabolites screen detects b enzoylecgonine (Cocaine Metabolite) at concentrations >150 ng/mL. Qualitative Drug screens are reported as None Detected or Presumptive Positive as the results are not routine ly confirmed by highly-specific methods. As with any screen occasional f alse positive results from cross-reacting substances can occur. Not for Medico-Legal Purposes. PREM Methamphetamines Scr None Detected None Detected CERNER MILLENNIUM Comment: The methamphetamine screen detects d-met hamphetamine at concentrations >500 ng/mL. Qualitative Drug screens are reported as None Detected or Presumptive Positive as the results are not routine ly confirmed by highly-specific methods. As with any screen occasional f alse positive results from cross-reacting substances can occur. Not for Medico-Legal Purposes. PREM Opiates Scr None Detected None Detected CERNER MILLENNIUM Comment: The opiates screen detects opiates at a concentration >100 ng/mL and oxymorphone >250 ng/mL. Qualitative Drug screens are reported as None Detected or Presumptive Positive as the results are not routine ly confirmed by highly-specific methods. As with any screen occasional f alse positive results from cross-reacting substances can occur. Not for Medico-Legal Purposes. PREM Amphetamines Scr None Detected None Detected C ERNER MILLENNIUM Comment: The amphetamine screen detects d-ampheta mine at concentrations >500 ng/mL. Qualitative Drug screens are reported as None Detected or Presumptive Positive as the results are not routine ly confirmed by highly-specific methods. As with any screen occasional f alse positive results from cross-reacting substances can occur. Not for Medico-Legal Purposes. PERM Benzodiazepines Scr None Detected None Detected CERNER MILLENNIUM Comment: The benzodiazepines screen detects benzo diazepines at concentrations >150 ng/mL. Not all benzodiazepines cross-marcus ct equally with antibody used in this screen. Due to the low dosage of clonaze tani, false negatives may be obtained due to low concentration of clonazepam m etabolites. Qualitative Drug screens are reported as None Detected or Presumptive Positive as the results are not routine ly confirmed by highly-specific methods. As with any screen occasional f alse positive results from cross-reacting substances can occur. Not for Medico-Legal Purposes. PREM Tricyclics Scr None Detected None Detected CER NER MILLENNIUM Comment: The tricyclics screen detects tricyclic antidepressants at concentrations >300 ng/mL. Not all tricyclics cross-react eq ually with the antibody used in this screen. Qualitative Drug screens are reported as None Detected or Presumptive Positive as the results are not routine ly confirmed by highly-specific methods. As with any screen occasional f alse positive results from cross-reacting substances can occur. Not for Medico-Legal Purposes. PREM Methadone Scr None Detected None Detected CERN ER MILLENNIUM Comment: The methadone screen detects methadone a t concentrations >200 ng/mL. Qualitative Drug screens are reported as None Detected or Presumptive Positive as the results are not routine ly confirmed by highly-specific methods. As with any screen occasional f alse positive results from cross-reacting substances can occur. Not for Medico-Legal Purposes. PREM Barbiturates Scr None Detected None Detected C ERNER MILLENNIUM Comment: The barbiturates screen detects barbitur ate at concentrations >200 ng/mL. Note: Not all barbiturates cross-react equally with antibody used in this screen. Qualitative Drug screens are reported as None Detected or Presumptive Positive as the results are not routine ly confirmed by highly-specific methods. As with any screen occasional f alse positive results from cross-reacting substances can occur. Not for Medico-Legal Purposes. PREM Oxycodone Scr None Detected None Detected CERN ER MILLENNIUM Comment: The oxycodone screen detects oxycodone a t concentrations >100 ng/mL and oxymorphone >250 ng/ml. Qualitative Drug screens are reported as None Detected or Presumptive Positive as the results are not routine ly confirmed by highly-specific methods. As with any screen occasional f alse positive results from cross-reacting substances can occur. Not for Medico-Legal Purposes. PREM Propoxyphene Scr None Detected None Detected C ERNER MILLENNIUM Comment: The propoxyphene screen detects propoxyp hene at concentrations >300 ng/mL. Qualitative Drug screens are reported as None Detected or Presumptive Positive as the results are not routine ly confirmed by highly-specific methods. As with any screen occasional f alse positive results from cross-reacting substances can occur. Not for Medico-Legal Purposes. PREM Buprenorphine Scr None Detected None Detected CERNER MILLENNIUM Comment: The buprenorphine screen detects bupreno rphine at concentrations >10 ng/mL. Qualitative Drug screens are reported as None Detected or Presumptive Positive as the results are not routine ly confirmed by highly-specific methods. As with any screen occasional f alse positive results from cross-reacting substances can occur. Not for Medico-Legal Purposes. Specimen Anatomical Collection Method Collection Time Receive d Time (Source) Location / / Volume Laterality Urine specimen 10/22/2013 4:08 PM 014 9:41 (specimen) EDT PM EDT Resulting Agency Comment Spec In Lab Poncho Zhang III, MD URINE ORDERABLES Performing Organization Address City/State/ZIP Code Phon e Number [place] [id number] CERNER MILLENNIUM (ABNORMAL) Urinalysis with microscopic (10/22/2013 7:58 AM EDT) [facility] Method Time Signature Glucose UA Negative Negative CERNER mg/dL MILLENNIUM Protein UA 30 (A) Neg mg/dL CERNER MILLENNIUM Bilirubin UA Negative Negative CERNER mg/dL MILLENNIUM Comment: Clinical correlation required for positi ve Urine Bilirubin results as false positive may occur with some drugs and d rug related products. If a false positive is suspected a serum total bili kelly should be considered if clinically indicated. Urobilinogen UA Normal mg/dL CERNER MILLENN IUM pH UA 6.0 5.0 - 8.0 CERNER MILLENNIUM Blood UA Negative mg/dL CERNER MILLENNIUM Ketones UA 10 (A) Neg mg/dL CERNER MILLENNIUM Nitrite UA Negative CERNER MILLENNIUM Leukocytes UA Negative mcL CERNER MILLENNIU M Appearance UA Hazy (A) Clear CERNER MILLENNIU M Spec [place] UA >1.035 (H) 1.002 - 1.030 CERNER [place] LLENNIUM Color UA Yellow Yellow CERNER MILLENNIUM RBC UA Not Present 0 - 4 CERNER MILLENNIUM WBC UA 1 0 - 5 /HPF CERNER MILLENNIUM Bacteria UA Occasional /HPF CERNER MILLENNIUM Squam Epith UA 19 (H) <=4 /HPF CERNER MILLENNI UM Hyaline Cast UA 9 (H) 0 - 2 /LPF CERNER LINDSAY NIUM Specimen Anatomical Collection Method Collection Time Receive d Time (Source) Location / / Volume Laterality Urine specimen 10/22/2013 7:58 AM 014 8:14 (specimen) EDT AM EDT Resulting Agency Comment Spec In Lab Olvin Cast MD URINE ORDERABLES Performing Organization Address [facility]/ZIP Code Phon e Number [address] CERNER MILLENNIUM CSF Cell Count (10/21/2013 10:03 PM EST) P athologist Signature Tube # Ct CSF 3 CERNER MILLENNIUM Nucleated CSF 3 0 - 5 /mcl CERNER CT MILLENNIUM Comment: Less than 6 nucleated cells counted, dif ferential not performed per procedural guidelines. ??Smear scan performed. No a bnormalities seen. If Nucleated Cell Count equals zero, No Scan or Differential is performed. If Nucleated Cell Count equals 1-5, Smea r is scanned but no results are reported unless abnormalities are seen. If Nucleated Cell Count equals [address], Differential is reported. Nucleated Cell Count results are correla can with body fluid type and clinical condition. Corrected from 3 /mcl on 10/21/13 11:33 by Fiorella Mcqueen. RBC CSF CT 3 /mcl CERNER MILLENNIUM Specimen (Source) Anatomical Collection Method Collection Time Re ceived Time Location / / Volume Laterality Cerebrospinal fluid 10/21/2013 10:03 03/0 03/2014 sample (specimen) PM EST 10:[address] Resulting Agency Comment Spec In Lab Rachel Leiva MD BODY FLUIDS AND STOOLS ORDER TANNA Performing Organization Address City/[facility]/ZIP Code Phon e Number [address] CERNER MILLENNIUM CSF DESC 4 (10/21/2013 10:03 PM EST) Patholo gist Method Time Signature Tube Num CSF 4 CERNER #4 MILLENNIUM Color CSF #4 Colorless Colorless CERNER MILLENNIUM Appear CSF #4 Clear Clear CERNER MILLENNIUM Tot Vol CSF #4 0.8 mL CERNER MILLENNIUM Specimen (Source) Anatomical Collection Method Collection Time Re ceived Time Location / / Volume Laterality Cerebrospinal fluid 10/21/2013 10:03 03/0 03/2014 sample (specimen) PM EST 10:[address] Resulting Agency Comment Spec In Lab Rachel Leiva MD BODY FLUIDS AND STOOLS ORDER TANNA Performing Organization Address [facility] Phon e Number [address] CERNER MILLENNIUM CSF DESC 3 (10/21/2013 10:03 PM EST) Patholo gist Method Time Signature Tube Num CSF 3 CERNER #3 MILLENNIUM Color CSF #3 Colorless Colorless CERNER MILLENNIUM Appear CSF #3 Clear Clear CERNER MILLENNIUM Tot Vol CSF #3 0.8 mL CERNER MILLENNIUM Specimen (Source) Anatomical Collection Method Collection Time Re ceived Time Location / / Volume Laterality Cerebrospinal fluid 10/21/2013 10:03 /0 03/2014 sample (specimen) PM EST 10:[address] Resulting Agency Comment Spec In Lab Rachel Leiva MD BODY FLUIDS AND STOOLS ORDER TANNA Performing Organization Address [facility] Phon e Number [address] CERNER MILLENNIUM CSF DESC 2 (10/21/2013 10:03 PM EST) [employer] gist Method Time Signature Tube Num CSF 2 CERNER #2 MILLENNIUM Color CSF #2 Colorless Colorless CERNER MILLENNIUM Appear CSF #2 Clear Clear CERNER MILLENNIUM Tot Vol CSF #2 1.0 mL CERNER MILLENNIUM Specimen (Source) Anatomical Collection Method Collection Time Re ceived Time Location / / Volume Laterality Cerebrospinal fluid 10/21/2013 10:03 03/0 03/2014 sample (specimen) PM EST 10:[address] Resulting Agency Comment Spec In Lab Rachel Leiva MD BODY FLUIDS AND STOOLS ORDER TANNA Performing Organization Address [facility] Phon e Number [address] CERNER MILLENNIUM CSF DESC 1 (10/21/2013 10:03 PM EST) Patholo gist Method Time Signature Tube Num CSF 1 CERNER #1 MILLENNIUM Color CSF #1 Colorless Colorless CERNER MILLENNIUM Appear CSF #1 Clear Clear CERNER MILLENNIUM Tot Vol CSF #1 0.8 mL CERNER MILLENNIUM Specimen (Source) Anatomical Collection Method Collection Time Re ceived Time Location / / Volume Laterality Cerebrospinal fluid 10/21/2013 10:03 03/0 03/2014 sample (specimen) PM EST 10:[address] Resulting Agency Comment Spec In Lab Rachel Leiva MD BODY FLUIDS AND STOOLS ORDER TANNA Performing Organization Address City/State/ZIP Code Phon e Number [address] CERNER MILLENNIUM CSF Culture (10/21/2013 10:03 PM EST) Component Value Ref Test Analysis Performed At [facility] gist Range Method Time Signature Central CERNER Nervous ? Patient Name: LISSETH ARAGON ?Ordered By: RACHEL LEIVA [employer] [id number] System ? MR#: [id number] ?LOC: ??1EST Culture ? /Sex: ??1970 (43 years), ? Female ? PROCEDURE: Central Nervous System Culture ?SOURCE: CSF ? COLLECTED: 10/21/2013 22:03 ? STARTED: 10/21/2013 22:17 ? STAINS / PREPARATIONS ? Gram Stain Report ? Verified:10/21/2013 22:39 ? Cytocentrifuge Gram Stain performed ? No WBC's seen. ? No microorganisms seen. ? FINAL REPORT ? Final Report ? Verified:10/25/2013 10:37 ? No growth ? PRELIMINARY REPORT ? Preliminary Report ? Verified:10/22/2013 08:26 ? No growth to date. ? Specimen (Source) Anatomical Collection Method Collection Time Re ceived Time Location / / Volume Laterality Cerebrospinal fluid 10/21/2013 10:03 03/2014 sample (specimen) PM EST 10:[address] Resulting Agency Comment Spec In Lab Rachel Leiva MD MICROBIOLOGY - GENERAL ORDER TANNA Performing Organization Address [facility] Phon e [address] CERNER MILLENNIUM Glucose Level CSF (10/21/2013 10:03 PM EST) P athologist Signature Glucose, CSF 66 mg/dL CERNER MILLENNIUM Comment: CSF at equilibrium equals appro ximately 60-80% of plasma glucose. Specimen (Source) Anatomical Collection Method Collection Time Re ceived Time Location / / Volume Laterality Cerebrospinal fluid 10/21/2013 10:03 03/2014 sample (specimen) PM EST 10:[address] Resulting Agency Comment Spec In Lab Rachel Leiva MD BODY FLUIDS AND STOOLS ORDER TANNA Performing Organization Address [facility] Phon e [address] CERNER MILLENNIUM Protein Level CSF (10/21/2013 10:03 PM EST) P athologist Signature T Protein, CSF 31 15 - 45 CERNER mg/dL MILLENNIUM Xanthochromia Neg CERNER MILLENNIUM Specimen (Source) Anatomical Collection Method Collection Time Re ceived Time Location / / Volume Laterality Cerebrospinal fluid 10/21/2013 10:03 03/2014 sample (specimen) PM EST 10:[address] Resulting Agency Comment Spec In Lab Rachel Leiva MD BODY FLUIDS AND STOOLS ORDER TANNA Performing Organization Address [facility] [place] [email or web address] CT [place] with contrast (10/21/2013 7:44 PM EST) Anatomical Region Laterality Modality Neck, Head Computed Tomography Specimen (Source) Anatomical Collection Method Collection Time Re ceived Time Location / / Volume Laterality 10/21/2013 7:44 PM EST Narrative 10/22/2013 8:[address] Head Without Contrast CTA [place] ?? Clinical History confusion, headache, H/O TBI, ?bleed Comparison None Technique Non contrast CT of the head and contrast enhanced CTA of the [place] utilizing 65 cc of Omnipaque 350 was adm inistered. MIP images were obtained. Findings CT head: No extraaxial fluid collections are seen . No calvarial fracture. The sulci, ventricles, and basal cisterns are jean pierre l. No intracranial hemorrhage, mass lesion, or midline shift. Alcantara-white dif ferentiation is maintained. The paranasal sinuses and mastoid air cells are clear. CTA head: Right vertebral artery: Normal in calibe r and course through its ??extracranial and intracranial course. The right PICA is normal in course and caliber. Left vertebral artery: Normal in caliber and course through its extracranial and intracranial course. The left PICA i s normal in course and caliber. Basilar artery: Basilar artery and its b ranches are normal in course and caliber. The right and left posterior ce rebral arteries are normal in course and caliber. Right internal cerebral artery: The righ t internal carotid as well as its branches have a normal course and calibe r. Left internal cerebral artery: The left internal carotid artery as well as its branches of a normal course and caliber. The posterior communicating arteries are normal in course and caliber. No evidence of dissection or aneurysm. Chronic healed deformity of the right an terior C1 arch noted. ?? Impression 1. Normal CT of the head, no acute intra cranial hemorrhage or large territorial infarction. ?? 2. Normal CTA of the brain, no aneurysm or dissection seen. Film and interpretation reviewed by the attending Procedure Note Griffin Blankenship MD - 10/22/2013Formatti ng of this note might be different from the original. Examination CT Head Without Contrast CTA [place] Clinical History confusion, headache, H/O TBI, ?bleed Comparison None Technique Non contrast CT of the head and contrast enhanced CTA of the [place] utilizing 65 cc of Omnipaque 350 was adm inistered. MIP images were obtained. Findings CT head: No extraaxial fluid collections are seen . No calvarial fracture. The sulci, ventricles, and basal cisterns are jean pierre l. No intracranial hemorrhage, mass lesion, or midline shift. Alcantara-white dif ferentiation is maintained. The paranasal sinuses and mastoid air cells are clear. CTA head: Right vertebral artery: Normal in calibe r and course through its extracranial and intracranial course. The right PICA is normal in course and caliber. Left vertebral artery: Normal in caliber and course through its extracranial and intracranial course. The left PICA i s normal in course and caliber. Basilar artery: Basilar artery and its b ranches are normal in course and caliber. The right and left posterior ce rebral arteries are normal in course and caliber. Right internal cerebral artery: The righ t internal carotid as well as its branches have a normal course and calibe r. Left internal cerebral artery: The left internal carotid artery as well as its branches of a normal course and caliber. The posterior communicating arteries are normal in course and caliber. No evidence of dissection or aneurysm. Chronic healed deformity of the right an terior C1 arch noted. Impression 1. Normal CT of the head, no acute intra cranial hemorrhage or large territorial infarction. 2. Normal CTA of the brain, no aneurysm or dissection seen. Film and interpretation reviewed by the attending Rachel Leiva MD IM CT ORDERABLES CT head WO contrast (10/21/2013 7:44 PM EST) Anatomical Region Laterality Modality Head Computed Tomography Specimen (Source) Anatomical Collection Method Collection Time Re ceived Time Location / / Volume Laterality 10/21/2013 7:44 PM EST Narrative 10/22/2013 8:[address] Head Without Contrast CTA [place] ?? Clinical History confusion, headache, H/O TBI, ?bleed Comparison None Technique Non contrast CT of the head and contrast enhanced CTA of the [place] utilizing 65 cc of Omnipaque 350 was adm inistered. MIP images were obtained. Findings CT head: No extraaxial fluid collections are seen . No calvarial fracture. The sulci, ventricles, and basal cisterns are jean pierre l. No intracranial hemorrhage, mass lesion, or midline shift. Alcantara-white dif ferentiation is maintained. The paranasal sinuses and mastoid air cells are clear. CTA head: Right vertebral artery: Normal in calibe r and course through its ??extracranial and intracranial course. The right PICA is normal in course and caliber. Left vertebral artery: Normal in caliber and course through its extracranial and intracranial course. The left PICA i s normal in course and caliber. Basilar artery: Basilar artery and its b ranches are normal in course and caliber. The right and left posterior ce rebral arteries are normal in course and caliber. Right internal cerebral artery: The righ t internal carotid as well as its branches have a normal course and calibe r. Left internal cerebral artery: The left internal carotid artery as well as its branches of a normal course and caliber. The posterior communicating arteries are normal in course and caliber. No evidence of dissection or aneurysm. Chronic healed deformity of the right an terior C1 arch noted. ?? Impression 1. Normal CT of the head, no acute intra cranial hemorrhage or large territorial infarction. ?? 2. Normal CTA of the brain, no aneurysm or dissection seen. Film and interpretation reviewed by the attending Procedure Note Griffin Blankenship MD - 10/22/2013Formatti ng of this note might be different from the original. Examination CT Head Without Contrast CTA [place] Clinical History confusion, headache, H/O TBI, ?bleed Comparison None Technique Non contrast CT of the head and contrast enhanced CTA of the [place] utilizing 65 cc of Omnipaque 350 was adm inistered. MIP images were obtained. Findings CT head: No extraaxial fluid collections are seen . No calvarial fracture. The sulci, ventricles, and basal cisterns are jean pierre l. No intracranial hemorrhage, mass lesion, or midline shift. Alcantara-white dif ferentiation is maintained. The paranasal sinuses and mastoid air cells are clear. CTA head: Right vertebral artery: Normal in calibe r and course through its extracranial and intracranial course. The right PICA is normal in course and caliber. Left vertebral artery: Normal in caliber and course through its extracranial and intracranial course. The left PICA i s normal in course and caliber. Basilar artery: Basilar artery and its b ranches are normal in course and caliber. The right and left posterior ce rebral arteries are normal in course and caliber. Right internal cerebral artery: The righ t internal carotid as well as its branches have a normal course and calibe r. Left internal cerebral artery: The left internal carotid artery as well as its branches of a normal course and caliber. The posterior communicating arteries are normal in course and caliber. No evidence of dissection or aneurysm. Chronic healed deformity of the right an terior C1 arch noted. Impression 1. Normal CT of the head, no acute intra cranial hemorrhage or large territorial infarction. 2. Normal CTA of the brain, no aneurysm or dissection seen. Film and interpretation reviewed by the attending Rachel Leiva MD IMG CT ORDERABLES (ABNORMAL) Differential, Automated (10/21/2013 6:12 PM EST) [facility] Method Time Signature Neutrophils % 53.1 34.0 - CERNER 71.0 % MILLENNIUM Neutr Abs (ANC) 3.54 1.50 - CERNER 6.30 MILLENNIUM x10(3)/mcL Lymphocytes % 29.7 19.0 - CERNER 53.0 % MILLENNIUM Lymphocytes Abs 2.0 1.0 - 3.6 CERNER x10(3)/mcL MILLENNIUM Monocytes % 8.1 4.0 - 13.0 CERNER % MILLENNIUM Monocyte Abs 0.5 0.2 - 1.0 CERNER x10(3)/mcL MILLENNIUM Eosinophils % 6.3 0.0 - 7.0 CERNER % MILLENNIUM Eosinophils Abs 0.4 0.0 - 0.5 CERNER x10(3)/mcL MILLENNIUM Basophils % 2.7 (H) 0.0 - 2.0 CERNER % MILLENNIUM Basophils Abs 0.2 0.0 - 0.2 CERNER x10(3)/mcL MILLENNIUM Immature Gran % 0.10 0.00 - CERNER 0.66 % MILLENNIUM Comment: Immature granulocytes(IG's)percentage an d absolute count will include metamyelocytes, myelocytes, and promyelo cytes. Blood smears from CBCs yielding IG's will be scanned manually for concor dance. If this scan disagrees with the automated IG or if promyelocytes are not ed, a manual differential will be performed. Rosangela Gran Abs 0.01 0.00 - 0.05 x10(3)/mcL CER NER MILLENNIUM Specimen Anatomical Collection Method Collection Time Receive d Time (Source) Location / / Volume Laterality Blood specimen 10/21/2013 6:12 PM 014 6:32 (specimen) EST PM EST Rachel Leiva MD HEMATOLOGY ORDERABLES Performing Organization Address City/[facility]/[place] [address] CERNER MILLENNIUM Nucleated Red Blood Cells (10/21/2013 6:12 PM EST) P athologist Signature nRBC % Auto 0.0 0.0 - 0.2 CERNER % MILLENNIUM nRBC Abs Auto 0.000 0.000 - CERNER 0.012 MILLENNIUM x10(3)/mcL Specimen Anatomical Collection Method Collection Time Receive d Time (Source) Location / / Volume Laterality Blood specimen 10/21/2013 6:12 PM 014 6:32 (specimen) EST PM EST Resulting Agency Comment Spec In Lab Rachel Leiva MD HEMATOLOGY ORDERABLES Performing Organization Address City/[facility]/ZIP Code Phon e Number [address] CERNER MILLENNIUM Prothrombin Time (10/21/2013 6:12 PM EST) P athologist Signature PT 12.6 12.0 - 15.0 CERNER sec MILLENNIUM Comment: [facility] Transfusion Committee Guidelines: I NR less than 2.0, PTT less than OR equal to 43.5 seconds, or Fibrinogen gre ater than or equal to 100 mg/dl indicate adequate procoagulant activity for hemostasis in patients without underlying bleeding disorders. INR 0.9 0.9 - 1.1 CERNER MILLENNIUM Specimen Anatomical Collection Method Collection Time Receive d Time (Source) Location / / Volume Laterality Blood specimen 10/21/2013 6:12 PM 014 6:32 (specimen) EST PM EST Resulting Agency Comment Spec In Lab Rachel Leiva MD HEMATOLOGY ORDERABLES Performing Organization Address City/[facility]/ZIP Code Phon e Number [place] [address] CERNER MILLENNIUM Glucose, random (10/21/2013 6:12 PM EST) athologist Signature Glucose Lvl 90 60 - 199 CERNER mg/dL MILLENNIUM Comment: Diabetes: >=200 mg/dL plus symp toms Specimen Anatomical Collection Method Collection Time Receive d Time (Source) Location / / Volume Laterality Blood specimen 10/21/2013 6:12 PM 014 6:32 (specimen) EST PM EST Resulting Agency Comment Spec In Lab Rachel Leiva MD CHEMISTRY ORDERABLES Performing Organization Address City/[facility]/ZIP Code Phon e Number [address] CERNER MILLENNIUM Creatinine (10/21/2013 6:12 PM EST) athologist Signature Creatinine 0.93 0.70 - 1.20 CERNER mg/dL [facility] Comment: Please note that the pediatric reference intervals supplied above were not validated at [facility]. Results from pediatri c patients should be interpreted in conjunction to the patient's age, height and muscle mass. Estimated GFR >60 >=60 CERNER MILLENNIU M Comment: This estimated GFR (eGFR) value was [...] the following links into your internet browser. http://www.nkdep.nih.gov/lab-evaluation. shtml http://www.kidney.org/professionals/ Specimen Anatomical Collection Method Collection Time Receive d Time (Source) Location / / Volume Laterality Blood specimen 10/21/2013 6:12 PM 014 6:32 (specimen) EST PM EST Resulting Agency Comment Spec In Lab Rachel Leiva MD CHEMISTRY ORDERABLES Performing Organization Address City/[facility]/ZIP Code Phon e Number [place] [address] CERNER MILLENNIUM (ABNORMAL) BUN (10/21/2013 6:12 PM EST) athologist Signature BUN 7 (L) 8 - 18 CERNER mg/dL MILLENNIUM Specimen Anatomical Collection Method Collection Time Receive d Time (Source) Location / / Volume Laterality Blood specimen 10/21/2013 6:12 PM 014 6:32 (specimen) EST PM EST Resulting Agency Comment Spec In Lab Rachel Leiva MD CHEMISTRY ORDERABLES Performing Organization Address City/State/ZIP Code [place] [address] CERNER MILLENNIUM (ABNORMAL) Electrolytes panel (10/21/2013 6:12 PM EST) athologist Signature Sodium 135 135 - 145 CERNER mmol/L MILLENNIUM Potassium 3.4 (L) 3.5 - 5.0 CERNER mmol/L MILLENNIUM Comment: Please note: ??Patients with WBC >100,00 0 may have falsely elevated Potassium levels. ??For accurate Potassium quantif ication in these patients send serum separator tube (gold top) for subsequent determinations. ??Contact the Clinical Chemistry Laboratory if there are any qu estions. Chloride 100 98 - 107 mmol/L CERNER MILLENN IUM CO2 24 22 - 31 mmol/L CERNER MILLENNI UM Anion Gap 11 5 - 15 mmol/L CERNER MILLENNIU M Specimen Anatomical Collection Method Collection Time Receive d Time (Source) Location / / Volume Laterality Blood specimen 10/21/2013 6:12 PM 014 6:32 (specimen) EST PM EST Resulting Agency Comment Spec In Lab Rachel Leiva MD CHEMISTRY ORDERABLES Performing Organization Address City/State/[place] [address] CERNER MILLENNIUM (ABNORMAL) CBC (with Diff) (10/21/2013 6:12 PM EST) athologist Signature WBC 6.7 4.0 - 10.0 CERNER x10(3)/mcL MILLENNIUM RBC 4.09 3.93 - CERNER 5.22 MILLENNIUM x10(6)/mcL Hemoglobin 13.2 11.2 - CERNER 15.7 gm/dL MILLENNIUM Hematocrit 38.3 34.0 - CERNER 45.0 % MILLENNIUM MCV 93.6 79.0 - CERNER 94.0 fL MILLENNIUM MCH 32.3 (H) 26.6 - CERNER 32.2 pg MILLENNIUM MCHC 34.5 32.0 - CERNER 36.5 gm/dL MILLENNIUM Platelets 437 (H) 145 - 370 CERNER x10(3)/mcL MILLENNIUM RDWSD 41.8 35.0 - CERNER 46.0 fL MILLENNIUM RDWCV 12.3 10.9 - CERNER 14.4 % MILLENNIUM MPV 11.7 9.0 - 12.0 CERNER fL MILLENNIUM Specimen Anatomical Collection Method Collection Time Receive d Time (Source) Location / / Volume Laterality Blood specimen 10/21/2013 6:12 PM 014 6:32 (specimen) EST PM EST Resulting Agency Comment Spec In Lab Rachel Leiva MD HEMATOLOGY ORDERABLES Performing Organization Address City/State/[place] [address] [facility] documented in this encounter Visit Diagnoses Diagnosis [facility] (headache) Headache Altered mental status Amnesia Memory loss MCI (mild cognitive impairment) Mild cognitive impairment, so stated Headache documented in this encounter Administered Medications Inactive Administered Medications - up to 3 most recent administrations Medication Order MAR Action Action Date Dose Rate Site acetaminophen (TYLENOL) tablet 650 Given 10/22/2013 8:27 PM EDT 650 mg mg 650 mg, Oral, EVERY 4 HOURS PRN, Starting on 10/22/13 at 1910, Until 10/24/13 at 1751, Pain, Maximum dose of acetaminophen is 4000 mg from all sources in 24 hours., Routine acetaminophen (TYLENOL) tablet 975 mg Given 10/21/2013 9:23 PM EST 975 mg 975 mg, Oral, ONCE, 1 dose, On 10/21/13 at 2145, Maximum dose of acetaminophen is 4000 mg from all sources in 24 hours., STAT clonazePAM (KLONOPIN) tablet 1 mg Given 10/24/2013 9:58 AM EDT 1 mg 1 mg, Oral, 2 TIMES DAILY, First dose on Wed10/22/13 at 0145, Until Discontinued, Routine Given 10/23/2013 10:00 PM EDT 1 mg Given 10/23/2013 9:40 AM EDT 1 mg DULoxetine (CYMBALTA) capsule 60 mg Given 10/23/2013 9:40 AM EDT 60 mg 60 mg, Oral, DAILY, First dose on Wed10/22/13 at 0900, Until Discontinued, Routine Given 10/22/2013 8:46 AM EDT 60 mg DULoxetine (CYMBALTA) capsule 60 mg Given 10/24/2013 9:58 AM EDT 60 mg 60 mg, Oral, 2 TIMES DAILY, First dose (after last modification) on Wed10/23/13 at 2100, Until Discontinued, Routine Given 10/23/2013 10:00 PM EDT 60 mg hydrochlorothiazide (HYDRODIURIL) tablet 25 mg Given 10/24/2013 9:58 AM EDT 25 mg 25 mg, Oral, DAILY, First dose on Wed10/22/13 at 0900, Until Discontinued, Combination pill split into 2 separate ingredients: lisinopril 20 mg with hydrochlorothiazide 25mg, Routine Given 10/23/2013 9:41 AM EDT 25 mg Given 10/22/2013 8:46 AM EDT 25 mg ketorolac (TORADOL) injection 15 mg Given 10/24/2013 11:01 AM EDT 15 mg 15 mg, Intravenous, EVERY 6 HOURS PRN, Starting on Wed10/23/13 at 1604, Until Wed10/24/13 at 1751, Pain, Routine Given 10/23/2013 4:27 PM EDT 15 mg ketorolac (TORADOL) injection 30 mg Given 10/21/2013 10:15 PM EST 30 mg 30 mg, Intravenous, ONCE, 1 dose, On 10/21/13 at 2215, STAT lisinopril (PRINIVIL;ZESTRIL) tablet 20 mg Given 10/24/2013 9:58 AM EDT 20 mg 20 mg, Oral, DAILY, First dose on 10/22/13 at 0900, Until Discontinued, Combination pill split into 2 separate ingredients: lisinopril 20 mg with hydrochlorothiazide 25mg, Routine Given 10/23/2013 9:41 AM EDT 20 mg Given 10/22/2013 8:46 AM EDT 20 mg ondansetron (ZOFRAN) injection 4 mg Given 10/23/2013 10:01 PM EDT 4 mg 4 mg, Intravenous, EVERY 8 HOURS PRN, Starting on Wed10/23/13 at 1053, Until Wed10/24/13 at 1751, Nausea Given 10/23/2013 11:03 AM EDT 4 mg pregabalin (LYRICA) capsule 50 mg Given 10/24/2013 9:58 AM EDT 50 mg 50 mg, Oral, 2 TIMES DAILY, First dose on Wed10/22/13 at 0145, Until Discontinued, Routine Given 10/23/2013 10:00 PM EDT 50 mg Given 10/23/2013 9:52 AM EDT 50 mg sertraline (ZOLOFT) tablet 50 mg Given 10/23/2013 9:42 AM EDT 50 mg 50 mg, Oral, DAILY, First dose on Wed10/22/13 at 0900, Until Discontinued, Routine Given 10/22/2013 8:47 AM EDT 50 mg sodium chloride 0.9 % flush 5 mL Given 10/24/2013 9:58 AM EDT 5 mLs 5 mL, Intravenous, 2 TIMES DAILY, First dose on Wed10/22/13 at 0145, Until Discontinued, Routine Given 10/23/2013 10:00 PM EDT 5 mLs Given 10/23/2013 9:43 AM EDT 5 mLs SUMAtriptan (IMITREX) injection 6 mg Given 10/23/2013 5:41 PM EDT 6 mg 6 mg, Subcutaneous, ONCE PRN, 1 dose, Starting on Wed10/23/13 at 1610, Until Wed10/23/13 at 1741, Migraine, Maximum 2 doses in 24 hours, Routine SUMAtriptan (IMITREX) injection 6 mg Given 10/24/2013 2:04 PM EDT 6 mg 6 mg, Subcutaneous, ONCE, 1 dose, On Wed10/24/13 at 1245, Maximum 2 doses in 24 hours, STAT documented in this encounter Active and Recently Administered Medications Due to Daylight Saving Time, this section may contain times in both EST and EDT. Scheduled Medication Order 10/22/2013 10/23/2013 10/24/2013 clonazePAM (KLONOPIN) tablet 1 mg (CANCELED) 0324 (Giv en - Provider: Agnieszka Alonzo RN)0850 (Given - Provider: Eusebia Jarvis, UCHE)2024 (Given - Provider: Agnieszka Alonzo RN) 0940 (Given - Provider: Natalee Kline RN)2200 (Given - Provider: Pari Avila, RN) 0958 (Given - Provider: Natalee Kline RN) 1 mg, Oral, 2 TIMES DAILY, First dose on 10/22/13 at 0145, Until Discontinued, Routine DULoxetine (CYMBALTA) capsule 60 mg (CANCELED) 0846 (G iven - Provider: Eusebia Jarvis RN) 0940 (Given - Provider: Natalee Kline RN) 60 mg, Oral, DAILY, First dose on 10/22/13 at 0900, Until Discontinued, Routine DULoxetine (CYMBALTA) capsule 60 mg (CANCELED) 2199 (Given - Provider: Pari Avila, UCHE) 0958 (Given - Provider: Natalee Kline RN) 60 mg, Oral, 2 TIMES DAILY, First dose o n 10/23/13 at 2100, Until Discontinued, Routine hydrochlorothiazide (HYDRODIURIL) tablet 25 mg (CANCEL ED) 0846 (Given - Provider: Eusebia Jarvis RN) 0941 (Given - Provider: Natalee Kline RN) 0958 (Given - Provider: Natalee Kline RN) 25 mg, Oral, DAILY, First dose on 10/22/13 at 0900, Until Discontinued, Combination pill split into 2 separate ingredients: lisinopril 20 mg with hydrochlorothiazide 25mg, Routine lisinopril (PRINIVIL;ZESTRIL) tablet 20 mg (CANCELED) 0846 (Given - Provider: Eusebia Jarvis RN) 0941 (Given - Provider: Natalee Kline RN) 0958 (Giv en - Provider: Natalee Kline RN) 20 mg, Oral, DAILY, First dose on 10/22/13 at 0900, Until Discontinued, Combination pill split into 2 separate ingredients: lisinopril 20 mg with hydrochlorothiazide 25mg, Routine pregabalin (LYRICA) capsule 50 mg (CANCELED) 0325 (Giv en - Provider: Agnieszka Alonzo RN)0850 (Given - Provider: Eusebia Jarvis, UCHE)2024 (Given - Provider: Agnieszka Alonzo RN) 0952 (Given - Provider: Natalee Kline RN)2199 (Given - Provider: Pari Avila, RN) 0958 (Given - Provider: Natalee Kline RN) 50 mg, Oral, 2 TIMES DAILY, First dose o n 10/22/13 at 0145, Until Discontinued, Routine sertraline (ZOLOFT) tablet 50 mg (CANCELED) 0847 (Give n - Provider: Eusebia Jarvis RN) 0942 (Given - Provider: Natalee Kline RN) 50 mg, Oral, DAILY, First dose on 04/29 at 0900, Until Discontinued, Routine sodium chloride 0.9 % flush 5 mL (CANCELED) 0326 (Give n - Provider: Agnieszka Alonzo RN)0847 (Given - Provider: Eusebia Jarvis RN)2025 (Given - Provider: Agnieszka Alonzo RN) 0943 (Given - Provider: Natalee Kline RN)2199 (Given - Provider: Pari Avila, RN) 0958 (Given - Provider: Natalee Kline RN) 5 mL, Intravenous, 2 TIMES DAILY, First dose on 10/22/13 at 0145, Until Discontinued, Routine SUMAtriptan (IMITREX) injection 6 mg (COMPLETED) 1404 (Given - Provider: Natalee Kline RN - Comment: First vial pulled up & rolled into garbage. Replacement sent) 6 mg, Subcutaneous, ONCE, 1 dose, 06/29 at 1245, Maximum 2 doses in 24 hours, STAT PRN Medication Order 10/22/2013 10/23/2013 10/24/2013 acetaminophen (TYLENOL) tablet 650 mg (CANCELED) 2026 (Given - Provider: Agnieszka Alonzo RN) 650 mg, Oral, EVERY 4 HOURS PRN, Startin g 10/22/13 at 1910, Until Tu10/24/13 at 1751, Pain, Maximum dose of acetaminophen is 4000 mg from all sources in 24 hours., Routine ketorolac (TORADOL) injection 15 mg (CANCELED) 1627 (Given - Provider: Natalee Kline, RN) 1101 (Given - Provider: Cara wahl RN - Comment: headache) 15 mg, Intravenous, EVERY 6 HOURS PRN, S tarting 10/23/13 at 1604, Until Wed10/24/13 at 1751, Pain, Routine ondansetron (ZOFRAN) injection 4 mg (CANCELED) 110 (Given - Provider: Bernadette Soria RN)220 (Given - Provider: Pari Avila RN) 4 mg, Intravenous, EVERY 8 HOURS PRN, St arting 10/23/13 at 1053, Until Wed10/24/13 at 1751, Nausea, Routine SUMAtriptan (IMITREX) injection 6 mg (COMPLETED) 1740 (Given - Provider: Natalee Kline RN) 6 mg, Subcutaneous, ONCE PRN, 1 dose, St arting 10/23/13 at 1610, Until Wed10/23/13 at 1741, Migraine, Maximum 2 doses in 24 hours, Routine documented in this encounter Care Teams Hat Forming Machine Feeder Relationship Specialty Start Date End Date Kole Williamson MD PCP - General 10/21/13 04/02/[address] [place] [id number] documented as of this encounter
--- OUTSIDE RECORDS SUMMARY | 2022-03-18 11:36 | XMS_ITS | Encounter Summary ---
:1970 Author Organization [facility] [place] [address] Care Team Providers Name Role Phone Tarsha Williamson MD Primary Care Provider Reason for Visit Reason Onset Date Comments Results 02/12/2016 Encounter Details Date Type Department Care Team Description 02/12/2016 Telephone Gastroenterology at [facility] [place] Agnieszka Zabala Results [facility] [place] [address] Social History Tobacco Use Types Packs/Day Years Used Date Former Smoker Cigarettes 0 15 Quit: 12/09/19 03 Smokeless Tobacco: Never Used Alcohol Use Standard Drinks/Week Comments No 0 (1 standard drink = 0.6 oz pure alcoho l) Sex Assigned at Date Recorded Not on file documented as of this encounter Miscellaneous Notes Telephone Encounter - Agnieszka Zabala RN - 02/12/2016 8:43 AM EDT Message from Rafa Ocampo: Please call pt regarding labs Slightly concerning cbc. But cr and gfr are abnormal. ??Too much for her age. Would like to repeat. Will put in orders. Please tell pt to have [place] [facility] Discussed above with patient including lab values from 02/03/16. Patient aware that orders have been placed for repeat labs and will get these drawn at her convenience. documented in this encounter Plan of Treatment Upcoming Encounters Date Type Specialty Care Team Description 04/14/2022 Office Visit Neurology Cameron Alves MD [facility] [address] [place], [place] [address] (Wo rk) documented as of this encounter Visit Diagnoses Not on filedocumented in this encounter Care Teams Chemical Laboratory Tester Relationship Specialty Start Date End Date Tarsha Williamson MD PCP - General 10/21/13 04/02/[address] [place] [address] [place] [address] documented as of this encounter
--- OUTSIDE RECORDS SUMMARY | 2022-03-18 11:36 | XMS_ITS | Encounter Summary ---
:1970 Author Organization [facility] [place] [address] Care Team Providers Name Role Phone Tarsha Williamson MD Primary Care Provider Reason for Visit Reason Comments Medication Refill Encounter Details Date Type Department Care Team Description 09/15/2015 Refill Neurology at [facility] [place] [place] Antonia Gonzalez APRN [facility] [place] [address] NEUROLOGY DEPT. [phone] [place], [place] [address] (Wo rk) Social History Tobacco [...] Alves MD [facility] [address] [place] [address] (Wo rk) documented as of this encounter Visit Diagnoses Not on filedocumented in this encounter Care Teams Clinical Microbiologist Relationship Specialty Start Date End Date Tarsha Williamson MD PCP - General 10/21/13 04/02/[address] [place] [address] [place], [place] [id number] documented as of this encounter
--- OUTSIDE RECORDS SUMMARY | 2022-03-18 11:36 | XMS_ITS | Encounter Summary ---
:1970 [place] [address] Care Team Providers Name Role Phone Kole Williamson MD Primary Care Provider Reason for Visit Reason Comments Altered Mental Status Auth/Cert Specialty Diagnoses / Procedures Referred By Contact Refer red To Contact Diagnoses Altered mental status Altered mental status, unspecified altered mental status type Procedures EMERGENCY IPI Referral ID Status Reason Start Date Expiration Date Visits Requ ested Visits Authorized [id number] 1 1 Encounter Details Date Type Department Care Team Description 03/28/2016 - Hospital Encounter 3 [facility] Edvin Obrien, [facility] [place] [address] Altered mental 04/01/2016 [facility] Dhruv Varner [place] [address] status, unspecified Hospital Saurabh Frank [place] [address] altered mental [facility] status [address] (Primary Dx) [place] [id number] Social History Tobacco Use Types Packs/Day Years Used Date Former Smoker Cigarettes 0 15 Quit: 12/09/19 03 Smokeless Tobacco: Never Used Alcohol Use Standard Drinks/Week Comments No 0 (1 standard drink = 0.6 oz pure alcoho l) Sex Assigned at Date Recorded Not on file documented as of this encounter Last Filed Vital Signs Vital Sign Reading Time Taken Comments Blood Pressure 164/92 04/01/2016 12:05 PM EDT Pulse 82 04/01/2016 12:05 PM EDT Temperature 37.2 ??C (99 ??F) 04/01/2016 12:05 PM EDT Respiratory Rate 16 04/01/2016 12:05 PM EDT Oxygen Saturation 100% 04/01/2016 12:05 PM EDT Inhaled Oxygen Concentration - - Weight 69.1 kg (152 lb 4.8 oz) 03/28/2016 7:38 PM EDT Height 157.5 cm (5' 2) 03/28/2016 7:38 PM EDT Body Mass Index 27.86 03/28/2016 7:38 PM EDT documented in this encounter Discharge Summaries Leah Heredia MD - 03/30/2016 7:58 AM EDT Inpatient Hospital Medicine - Discharge Summary Patient Name: Lisseth Boone Patient Age: 45 y.o. Birthdate: 1970 Admit date: 03/28/2016 Discharge date and time: 04/01/2016 Attending Physician: Antonella att. providers found Follow-up Recommendations for Providers: 1. ) Please ensure patient avoids medications such as diuretics and laxatives that can cause acute kidney injury 2. ) Please follow up with blood pressure and ensure re-starts lisinopril with adequate BP control Discharge Diagnoses (Hospital Problems) and Secondary Diagnoses (Chronic Problems): Active Hospital Problems Diagnosis ??? Altered mental status Resolved Hospital Problems Diagnosis Date Resolved No resolved problems to display. Operations/Major Procedures: None History of Presentation: (taken from admission H&P) Ms. Boone is a 45yo lady w/ hx of chronic migraine w/ aura, depression, anxiety, and ? Psoriasis and multiple other co-morbidities who presented to OSH w/ AMS. ?? Pt was not able to provide hx as she is largely non-verbal and only able to provide yes/no answers that actually were not reliable so all hx was obtained from chart review and communication from other providers. I could not reach by home or mobile phone. ?? Ms. Boone has been altered and non-communicative in the last 2 days or so w/o known ingestion of illegal substances or overdose of current medications. She was at [facility] until recently 03/06, and was doing well. It is not known why pt was there (possibly from depression per RN in ED). [facility] for [facility]. She was not communicative there, either, but did have normal vital signs throughout. The labs there on presentation were as follows: ?? WBC 18.3, Hgb 11.1, PLT 707k, no bands SCr 5.7 (1.22 two months ago), K 4.1, Cl 107, CO2 17, BUN 46, BG 112 Ca 9.5 ALT 29, AST 28, AlkP 115, Tbili 0.5, Alb 4.2, total protein 7.5 EtOH <10 Salicylate <1.0 Acetaminophen <10.0 UA: SG 1.006, 9 WBC ?? She received NS x2L w/ some improvement in her SCr while her AG remained essentially unchanged. Her ABG after fluid boluses was as follows PH 7.24, pCO2 33, pO2 87 Lactic acid 0.9 ?? Her Utox and Upreg were negative at the OSH. Head CT and CXR were both negative. She was accepted by [facility] for transfer to [facility]. She has continued to have good UOP (400mL since arrival here). Hospital Course: #Altered mental status Lisseth arrived to the ED and at first was only able to answer yes or no to questions, but answers were inconsistent. Her home medications (clonazepam, baclofen, cymbalta, olazepine, topamax, lamictal, trazodone, scopolamine) were held. She was transferred from the ED to the ISCU where she became slightly more awake, but was still unable to communicate intelligibly (would repeat her name or statements that were said to her). As she became more awake, she became more agitated, pulling out her peripheral IV, jumping out of bed etc. The MD and nurses tried to reassure and redirect her frequently, but she ultimately required vest restraints due to safety concerns. After falling asleep later than night she woke calm, cooperative, and pleasant. The following day (HD 2) she remained calm and was appropriate in conversation, but had minimal recollection of the preceding 48 hours. She stated that shefelt back to her baseline, but was worried that this had happened as she had no recollection of taking too many pills (her had counted pills at home to find 6 lamictal and 6 trazodone missing).She denied any worsening of her mood or thoughts of harming herself, but wondered if she had become confused by having her pills in two locations while moving between houses. Her psychotropic medications were again held on HD 2 with plan to resume HD 3 pending renal function. On HD 3 she seemed more confused and noted she had had a nightmare overnight in which her nurse was having uncontrollable vomiting in front of her. She also seemed to be having hallucinations (stickersall over room), and was perseverating about abnormal bleeding from both ends (later noted she had s tarted her menses). Psychiatry was consulted for further evaluation and noted that on review of her recent admission to [facility] she was taking a toxin cleanse that she had purchased online. Whetherthis may have contributed to her acute renal failure was considered, but she was unable to clarify what she was taking and her , Emmanuel had no knowledge of her taking any medications aside from those prescribed on discharge from [facility]. It was unclear whether her symptoms were secondary to her underlying depression with psychotic features or psychotic disorder secondary to acute renal failure in setting of ingestion of unknown product. She continues to be paranoid expressing concern that hospital staff were planning to harm her and would not allow her to visit her. On HD 4 her clonazepam and lamictal were re-commenced. In thesetting of improvement of her renal function, decision was made that she would benefit from further p sychiatric evaluation, so she was discharged and admitted to the inpatient psychiatry service. ?? #JORGE On admission Lisseth had an JORGE with a Creatinine of 5, which was felt to be pre-renal from dehydration (possibly exacerbated by laxative use at home). Her lisinopril and PPI were held and she was started on IVF at 200 cc/hr. Her renal function dramatically improved with Creatinine decreasing from 5 to 3.65 by HD 2 with good urine output. Her IVF were stopped and she was encouraged to keep up with fluid intake. Her creatinine was followed daily and improved to 0.98 on the day she was discharged to psychiatry service. Important Studies and Lab Data: Labs on admission: Labs reviewed and remarkable for WBC 14.1, Hgb 8.9, PLT 610k w/ no bands Na 144, K 3.9, Cl 110, CO2 15, BUN 46, SCr 5.09, BG 84 Ca 7.6, Mg 0.82, Phos 4.8 Acetaminophen and salicylate both negative LFTs unremarkable VBG 7.26/33/37/14.3 Lactate 1.1 CK 67 Serum Osm 313 => osm gap 313 - 288 - 84/18 - 46/2.8 = 4 UTox negative TSH 1.77 UA: SG 1.006, WBC 9, trace leuks Labs on Discharge: Recent Labs 03/31/16 0502 03/30/16 0555 03/29/16 0551 WBC 7.3 8.7 9.7 HGB 8.3* 8.3* 8.8* PLATELET 516* 539* 531* Recent Labs 04/01/16 07503/31/16 0502 03/30/16 0555 NA 144 141 144 K 2.9* 3.4* 3.4* CL 107 107 111* CO2 23 19* 17* BUN 10 16 29* CREATININE 0.98 1.37* 2.06* Recent Labs 04/01/16 07503/31/16 0502 03/30/16 0555 03/29/16 0551 03/28/16 0432 CALCIUM 8.8 8.8 8.7 8.6 < > 7.6* MAGNESIUM -- -- -- -- -- 0.82 PHOS -- -- -- 4.1 -- 4.8* < > = values in this interval not displayed. Recent Labs 03/28/16 0432 AST 16 ALT 10 ALKPHOS 90 BILITOT 0.2 BILIDIR 0.1 Recent Labs 03/28/16 0432 CK 67 No results for input(s): PHART, BIX7ZHG, PO2ART, LTC3VJQ in the last 168 hours. Pending Studies and Lab Data: No current labs Discharge Conditions/Prognosis: Stable Discharge to: Inpatient Psychiatry Service Discharge Medications: Your Medications Continued medications, unchanged Dose Details clonazePAM 1 mg Tab Commonly known as: KlonoPIN Take 1 tablet by mouth 2 times daily. 1 mg Quantity: 60 tablet Refills: 0 esomeprazole 40 mg Cpdr Commonly known as: NexIUM Take 1 capsule by mouth 2 times daily. 40 mg Quantity: 60 capsule Refills: 12 folic acid 1 mg Tab Commonly known as: FOLVITE Take 1 tablet by mouth daily. 1 mg Quantity: 30 tablet Refills: 12 lamoTRIgine 25 mg Tab Commonly known as: LaMICtal Take 50 mg by mouth 2 times daily. 50 mg Refills: 0 lisinopril 10 mg Tab Commonly known as: PRINIVIL;ZESTRIL Take 10 mg by mouth daily. 10 mg Refills: 0 multivitamin Tab Commonly known as: THERAGRAN Take 1 tablet by mouth daily. 1 tablet Refills: 0 OLANZapine 10 mg Tab Commonly known as: ZyPREXA Take 10 mg by mouth nightly. 10 mg Refills: 0 omeprazole-sodium bicarbonate 20-1,680 mg Pack Commonly known as: ZEGERID Take 20 mg by mouth 2 times daily. 20 mg Refills: 0 ondansetron 4 mg Tab Commonly known as: ZOFRAN Take 1 tablet by mouth every 8 hours as needed for Nausea for up to 5 doses. 4 mg Quantity: 5 tablet Refills: 0 ondansetron 8 mg Tbdl Commonly known as: ZOFRAN-ODT Take 1 tablet by mouth every 8 hours as needed for Nausea. 8 mg Quantity: 60 tablet Refills: 5 riboflavin (vitamin B2) 100 mg Tab Take [...] 1 g Quantity: 120 tablet Refills: 5 STOPPED Medications baclofen 20 mg Tab Commonly known as: LIORESAL chlorproMAZINE 50 mg Tab Commonly known as: THORAZINE diphenhydrAMINE 25 mg Cap Commonly known as: BENADRYL DULoxetine 60 mg Cpdr Commonly known as: CYMBALTA scopolamine 1.5 mg (1 mg over 3 days) Pt3d Commonly known as: TRANSDERM-SCOP topiramate 100 mg Tab Commonly known as: TOPAMAX traZODone 50 mg Tab Commonly known as: DESYREL Updated Allergies/ADRs: No Known Allergies Instructions Given to Patient at Discharge: Patient Instructions PATIENT INSTRUCTIONS FOR DISCHARGE Why you were hospitalized: You were hospitalized for confusion and kidney injury. It was unclear what caused your kidney injury, but it was felt to most likely have resulted from dehydration (particularly in the setting of your laxatives and working hard to move your house). It is very important that you keep up with fluids and discuss with your primary care provider prior to starting medications that can dehydrate you (diuretics and laxatives). Your confusion was felt to be secondary to medication build up in the setting of your kidney injury. Some of your medications were re-started while on the medicine team, but the psychiatry team will continue to make adjustments during the rest of your hospital stay. Call your doctor or report to the nearest Emergency Department: If you develop confusion, nightmares, low mood, worsening anxiety, thoughts of harming yourself, or any other concerning symptoms with regards to your mental health. It is also important to present to the emergency department if the amount you urinate decreases. Activity: No limitations Driving: Please refrain from driving when taking medications that can impair your judgement (eg. Clonazepam, trazodone, baclofen, olanzepine) Changes in Your Medications: Your medications were held during your hospital stay because of your confusion and kidney injury. You were re-started on your home doses of clonazepam, olanzepine, and half your home dose of lamictal. As you were discharged to the inpatient psychiatry service, further changes in your home medications will likely be made to treat your depression and anxiety prior to your transfer home. Follow-up: Future Appointments Date Time Provider Department Center 04/08/2016 8:30 AM Cameron Alves MD [facility] Your Inpatient Doctor: Dr. Varner-Medicine Attending Dr. Heredia-Medicine Resident Dr. Mcguire-Medicine [employer] Administrator Your Primary Care Provider: KOLE WILLIAMSON MD [phone] For questions regarding this document or issues relating to this hospitalization on the Medical Service, please contact your inpatient physician through the [facility] Manager Auto . Issues after hours and on weekends will be handled by the Hospitalist staff on-call. General Instructions None Future Appointments and Orders Future Appointments Provider Department Dept Phone 04/08/2016 8:30 AM Cameron Alves MD Neurology [phone] Provider Contact Information: LE[place] [address] Discharge References/Attachments: Discharge References/Attachments None For questions regarding this document or issues relating to this hospitalization on the Medical Service, please contact your inpatient physician through the [facility] Manager [employer] . Issues after hours and on weekends will be handled by the Hospitalist staff on-call. Signed: LEAH HEREDIA MD 04/01/2016 documented in this encounter Discharge Instructions Patient InstructionsLeah Heredia MD - 04/01/2016 4:54 PM EDT PATIENT INSTRUCTIONS FOR DISCHARGE Why you were hospitalized: You were hospitalized for confusion and kidney injury. It was unclear what caused your kidney injury, but it was felt to most likely have resulted from dehydration (particularly in the setting of your laxatives and working hard to move your house). It is very important that you keep up with fluids and discuss with your primary care provider prior to starting medications that can dehydrate you (diuretics and laxatives). Your confusion was felt to be secondary to medication build up in the setting of your kidney injury. Some of your medications were re-started while on the medicine team, but the psychiatry team will continue to make adjustments during the rest of your hospital stay. Call your doctor or report to the nearest Emergency Department: If you develop confusion, nightmares, low mood, worsening anxiety, thoughts of harming yourself, or any other concerning symptoms with regards to your mental health. It is also important to present to the emergency department if the amount you urinate decreases. Activity: No limitations Driving: Please refrain from driving when taking medications that can impair your judgement (eg. Clonazepam, trazodone, baclofen, olanzepine) Changes in Your Medications: Your medications were held during your hospital stay because of your confusion and kidney injury. You were re-started on your home doses of clonazepam, olanzepine, and half your home dose of lamictal. As you were discharged to the inpatient psychiatry service, further changes in your home medications will likely be made to treat your depression and anxiety prior to your transfer home. Follow-up: Future Appointments Date Time Provider Department Center 04/08/2016 8:30 AM Cameron Alves MD [facility] Your Inpatient Doctor: Dr. Varner-Medicine Attending Dr. Heredia-Medicine Resident Dr. Mcguire-Medicine [employer] Administrator Your Primary Care Provider: OKLE WILLIAMSON MD [phone] For questions regarding this document or issues relating to this hospitalization on the Medical Service, please contact your inpatient physician through the [facility] Manager [employer] . Issues after hours and on weekends [...] iron) Tablet, Delayed mouth daily. Release (E.C.) lamoTRIgine (LAMICTAL) 25 Take 50 mg by 0 04/04/2016 mg Tablet mouth 2 times daily. OLANZapine (ZYPREXA) 10 mg Take 10 mg by 0 04/04/2016 Tablet mouth nightly. traZODone (DESYREL) 50 mg Take 50 mg [...] Place 1 patch onto 10 patch 12 02/23/201604/04 (TRANSDERM-SCOP) 1.5 mg (1 the skin [...] 100 Take 1 tablet by 30 tablet 12/0801/13/2017 mg TabletIndications: mouth nightly. Headache(784.0) chlorproMAZINE (THORAZINE) Take 1 tablet by 30 tablet 04/15/2016 50 mg TabletIndications: mouth daily as [...] documented as of this encounter Progress Notes Dhruv Varner MD - 04/01/2016 5:00 PM EDT Hospital Medicine - Attending Day of Discharge Documentation Discharge diagnosis Active Hospital Problems Diagnosis ??? Altered mental status Resolved Hospital Problems Diagnosis Date Resolved No resolved problems to display. Secondary Issues Active Non-Hospital Problems Diagnosis ??? Psychosis ??? Weight loss ??? Headache ??? Amnesia ??? MCI (mild cognitive impairment) ??? Closed TBI (traumatic brain injury) ??? Closed C1 fracture ??? Fibrocystic breast changes ??? Breast cancer screening, high risk patient I have personally seen and examined the patient and they are ready for discharge. I spent >30 minutes (Day of Discharge Code 41907) involved in the final examination of the patient, discussion of the hospital stay, instructions for continuing care to all relevant caregivers, and preparation of discharge records, prescriptions and referral forms. Case discussed with psych. DC summary reviewed. Pt is quite clear today, reports that she remembers being confused. She is willing to go to psych for further therapy. Griffin Danielle RN - 04/01/2016 3:14 PM EDT Pt transferred to Psych for voluntary admission. IV removed intact without issue. Pt walked with this automobile and property underwriter to [address]W with pt belongings in bag. Jason Mcguire MD - 03/31/2016 4:59 AM EDT Inpatient Medicine Progress Note - Purple Team - Pager [phone] ID:Ms. Boone is a 45yo lady w/ hx of chronic migraine w/ aura, depression, anxiety, and ? Psoriasisand multiple other co-morbidities who presented to OSH w/ AMS. Length of Stay: Hospital Day 3 days Active Problems: Active Hospital Problems Diagnosis ??? Altered mental status Resolved Hospital Problems Diagnosis Date Resolved No resolved problems to display. 24 Hour Events/Subjective: -no acute overnight events -Became hypertensive yesterday afternoon she was given labetalol 10 mg PO with good effect -she endorses visual hallucinations and delusions this morning, she reports that she is afraid of the stasis a water logging type test that she believes is planned for today, and that there is tape all over the [place] that you need to turn the light off to see. -not making sense at times -denies any pain or discomfort, denies thoughts of harming herself ROS: Denies CP, SOB, palpitations, PND, Orthopnea, dizziness/LH, LE swelling or pain, n/v, abd pain Inpatient Medications: Scheduled Meds: ??? OLANZapine 10 mg Oral Nightly ??? folic acid 1 mg Oral Daily ??? riboflavin (vitamin B2) 100 mg Oral Daily ??? sucralfate 1 g Oral 4 Times Daily ??? sodium chloride 0.9 % 5 mL Intravenous BID ??? multivitamin 1 tablet Oral Daily Continuous Infusions: PRN Meds:.melatonin, sodium chloride 0.9 %, lidocaine, docusate sodium, acetaminophen Physical Examination: Vitals: Last value Range last 24 hrs Temperature Temp: 36.7 ??C (98.1 ??F) Temp: [36.6 ??C (97.9 ??F)-37.1 ??C (98.7 ??F)] Heart Rate Heart Rate: 64 Heart Rate: [64-80] Blood Pressure BP: (!) 162/99 (done manual it was 180/120 rn notified) BP: (133-177)/(90-99) Respiratory Rate Resp: 18 Resp: [18] SpO2 SpO2: 98 % SpO2: [96 %-98 %] Patient Vitals for the past 168 hrs: Weight 03/28/161937 69.1 kg (152 lb 4.8 oz) Admit wt:69.08 kg Ins/Outs: No intake or output data in the 24 hours ending 03/31/16 1019 Gen:AAOX3, pleasant and in NAD HEENT: sclera anicteric, EOMI, no conjunctival pallor, no oral lesions Neck: no cervical LAD, Full range of motion without nuchal rigidity Pulm: Normal respiratory effort, Lungs CTAB CV: RRR, s1 s2 normal, no m/r/g Abd: soft, NT, ND, NABS throughout Ext: no edema, no clubbing, no cyanosis. Neuro: no focal deficits grossly noted. Laboratory: Recent Labs 03/31/16 0502 03/30/16 0555 03/29/16 0551 WBC 7.3 8.7 9.7 HGB 8.3* 8.3* 8.8* HCT 25.6* 25.8* 28.1* PLATELET 516* 539* 531* Recent Labs 03/31/16 0502 03/30/16 0555 03/29/16 0551 NA 141 144 146* K 3.4* 3.4* 3.5 CL 107 111* 114* CO2 19* 17* 15* BUN 16 29* 40* CREATININE 1.37* 2.06* 3.65* Recent Labs 03/31/16 0502 03/30/16 0555 03/29/16 0551 03/28/16 0432 CALCIUM 8.8 8.7 8.6 < > 7.6* MAGNESIUM -- -- -- -- 0.82 PHOS -- -- 4.1 -- 4.8* < > = values in this interval not displayed. Microbiology: No new micro Imaging: no new imaging Assessment/Plan Ms. Boone is a 45yo lady w/ depression, chronic migraine, and multiple other co-morbidities who presents in transfer from [facility] for AMS and JORGE. All of her medications were held on admission and she wasstarted on IVF in setting of JORGE. Her altered mental status has resolved with her feeling completelyback to baseline, and renal function has improved (Cr 5 > 3.6). On discussion with her itwas determined that she was missing 6 trazodone and 6 lamictal. She denies intentionally taking these extra pills and thinks she likely became confused by having her pills in two locations while movingbetween houses. She denies any thoughts of harming herself or any worsening of her mood recently. It is possible that she became dehydrated in the setting of being very busy with her recent move, and in the setting of her lisinopril 10 mg daily, developed an JORGE, which caused her psychotropic medications to build up. Confusion from polypharmacy with impaired clearance may have lead to accidental extra pill intake exacerbating her confusion. From a medical stand point she is doing much better, her creatinine has continued to improve and is almost at baseline. Her episodes of hypertension are likely a combination of holding lisinopril and possible withdrawal from held clonazepam. This morning she continues to have delusions and hallucinations. We have restarted her olanzapine yesterday without much effect. She was evaluated by psychiatry yesterday who believe she may benefit from an inpatient admission. We will continue to monitor as we await psychiatry rec's. ? Plan #Altered mental status -continue home dose Olanzapine 10mg -Continue to hold medications (clonazepam, baclofen, cymbalta, topamax, lamictal, trazodone, scopolamine) -Psychiatry consulted appreciate rec's #Hypertension -? withdrawal -Start Amlodipine 5 mg and transition back to home lisinopril when creatinine is back to baseline -restart home clonazepam #JORGE -Large improvement with IVF (Cr 5 to 1.3) -Continue to hold PPI and lisinopril -encouraged increased po intake -Monitor with daily BMP Jason Mcguire MD Medicine Purple Team - Pager [phone] 03/31/2016 Associated attestation - Dhruv Varner MD - 03/31/2016 5:12 PM EDT [facility] Medicine -- Attending Progress Note Please see Dr. Mcguire's note for details of the patient history of presentation and data. I have discussed, reviewed and agree with the documented History, Physical findings, Assessment and Plan of care. I have examined the patient myself and personally reviewed all studies. Additions to the history, physical, assessment and plan include the following: Creatinine continues to improve, 1.37 today. She is tolerating PO. She appears to be hallucinating, and having strange thoughts. Being followed by psych, considering inpatient psych stay. Medical issues are resolved, awaiting disposition option from psych. Will clarify their recommendations for lamictal. Attestation I certify that I am a [facility] credentialed attending provider with admitting privileges and that the patient meets or has met medical necessity to require an inpatient IPI level of care meetinga minimum of two midnights or is on the [facility] inpatient only procedure list (status C) due to: acute kidney injury necessitating close monitoring of fluid balance such as intravenous fluids and/or titration of medication to achieve optimal effect and minimize the chance of immediate or severe side effects Carola Pablo RN - 03/30/2016 12:22 PM EDT Office of Care Management Progress Note Pt is independent, lives with her Kan in [place], [place]. Insurance: Jadiel Pt has been seen by PT and they are recommending home without further services at this time. Please see rehab notes for further details. Record reviewed and patient discussed with multidisciplinary team. No discharge needs identified at this time. Used Car Manager remains available as needed for coordination of care and discharge planning. ALEXIS Galarza. Samy BOATENG, RN, ACM, pager [phone] Jason Mcguire MD - 03/30/2016 6:34 AM EDT Inpatient Medicine Progress Note - Purple Team - Pager [phone] ID:Ms. Boone is a 45yo lady w/ hx of chronic migraine w/ aura, depression, anxiety, and ? Psoriasisand multiple other co-morbidities who presented to OSH w/ AMS. Length of Stay: Hospital Day 2 days Active Problems: Active Hospital Problems Diagnosis ??? Altered mental status Resolved Hospital Problems Diagnosis Date Resolved No resolved problems to display. 24 Hour Events/Subjective: -No acute overnight events -ambulating well, tolerating PO, moving bowels -nurses expressing concern regarding discharge today, they report that she is not always coherent -during my brief encounter with her this morning she was coherent and able to communicate normally, however when the senior resident spoke with Lisseth she was making remarks that where not coherent ROS: Denies CP, SOB, palpitations, PND, Orthopnea, dizziness/LH, LE swelling or pain, n/v, abd pain Inpatient Medications: Scheduled Meds: ??? folic acid 1 mg Oral Daily ??? riboflavin (vitamin B2) 100 mg Oral Daily ??? sucralfate 1 g Oral 4 Times Daily ??? sodium chloride 0.9 % 5 mL Intravenous BID ??? heparin (porcine) 5,000 Units Subcutaneous Q8H OSIRIS ??? multivitamin 1 tablet Oral Daily Continuous Infusions: PRN Meds:.sodium chloride 0.9 %, lidocaine, docusate sodium, acetaminophen Physical Examination: Vitals: Last value Range last 24 hrs Temperature Temp: 36.6 ??C (97.9 ??F) Temp: [36.3 ??C (97.3 ??F)-36.7 ??C (98.1 ??F)] Heart Rate Heart Rate: 73 Heart Rate: [69-75] Blood Pressure BP: (!) 163/92 BP: (151-163)/(90-93) Respiratory Rate Resp: 18 Resp: [16-18] SpO2 SpO2: 99 % SpO2: [99 %-100 %] Patient Vitals for the past 168 hrs: Weight 03/28/16 1938 69.1 kg (152 lb 4.8 oz) Admit wt:69.08 kg Ins/Outs: Intake/Output Summary (Last 24 hours) at 03/30/16 1012 Last data filed at 03/30/16 0800 Gross per 24 hour Intake 720 ml Output 550 ml Net 170 ml Gen:AAOX3, pleasant and in NAD HEENT: sclera anicteric, EOMI, no conjunctival pallor, no oral lesions Neck: no cervical LAD, Full range of motion without nuchal rigidity Pulm: Normal respiratory effort, Lungs CTAB CV: RRR, s1 s2 normal, no m/r/g Abd: soft, NT, ND, NABS throughout Ext: no edema, no clubbing, no cyanosis. Neuro: no focal deficits grossly noted. Laboratory: Recent Labs 03/30/16 0555 03/29/16 0551 03/28/16 0432 WBC 8.7 9.7 14.1* HGB 8.3* 8.8* 8.9* HCT 25.8* 28.1* 29.8* PLATELET 539* 531* 610* Recent Labs 03/30/16 0555 03/29/16 0551 03/28/16 2150 NA 144 146* 142 K 3.4* 3.5 3.2* CL 111* 114* 109* CO2 17* 15* 15* BUN 29* 40* 47* CREATININE 2.06* 3.65* 4.34* Recent Labs 03/30/16 0555 03/29/16 0551 03/28/16 2150 03/28/16 0432 CALCIUM 8.7 8.6 8.4* < > 7.6* MAGNESIUM -- -- -- -- 0.82 PHOS -- 4.1 -- -- 4.8* < > = values in this interval not displayed. Serum Osm 313 => osm gap 313 - 288 - 84/18 - 46/2.8 = 4 UTox negative TSH 1.77 UA: SG 1.006, WBC 9, trace leuks Acetaminophen and salicylate both negative ?? MICB UCx 03/28/16-NG ?? Radiology/Studies in Last 24 Hours: None ?? Assessment/Plan Ms. Boone is a 45yo lady w/ depression, chronic migraine, and multiple other co-morbidities who presents in transfer from H for AMS and JORGE. All of her medications were held on admission and she wasstarted on IVF in setting of JORGE. Her altered mental status has resolved with her feeling completelyback to baseline, and renal function has improved (Cr 5 > 3.6). On discussion with her itwas determined that she was missing 6 trazodone and 6 lamictal. She denies intentionally taking these extra pills and thinks she likely became confused by having her pills in two locations while movingbetween houses. She denies any thoughts of harming herself or any worsening of her mood recently. It is possible that she became dehydrated in the setting of being very busy with her recent move, and in the setting of her lisinopril 10 mg daily, developed an JORGE, which caused her psychotropic medications to build up. Confusion from polypharmacy with impaired clearance may have lead to accidental extra pill intake exacerbating her confusion. This morning she was less coherent. She was making statements such as there is blood coming from both ends, and tyson will reagin. With further clarification of the nurses that she is not menstruating and there was no visualized blood. We have held her medications in the setting of JORGE but given her improving creatinine we can restart them today. She is being prescribed medications from 3 different sources so we will try and obtain her discharge summary for her recent admission at [facility] as well as consult psych as to how best to restart her medications. ?? Plan #Altered mental status -Continue to hold medications (clonazepam, baclofen, cymbalta, olazepine, topamax, lamictal, trazodone, scopolamine) -consult psychiatry ?? #JORGE -Large improvement with IVF (Cr 5 to 3.7) -Continue to hold PPI and lisinopril -encouraged increased po intake -Monitor with daily BMP ?? DVT ppx: heparin sq Code status: FULL CODE Jason Mcguire MD Medicine Purple Team - Pager [phone] 03/30/2016 Associated attestation - Dhruv Varner MD - 03/30/2016 2:55 PM EDT [facility] Medicine -- Attending Progress Note Please see Dr. Mcguire's note for details of the patient history of presentation and data. I have discussed, reviewed and agree with the documented History, Physical findings, Assessment and Plan of care. I have examined the patient myself and personally reviewed all studies. Additions to the history, physical, assessment and plan include the following: Creatinine continues to improve. She is now on only oral intake and maintaing her hydration status without difficulty. Some confusion this AM which appears to be related to a dream she had last night. Will restart her olanzepine, have psych assess her although I do not think she will need a psych admission. I expect she will be able to be discharged tomorrow. Attestation I certify that I am a D-H credentialed attending provider with admitting privileges and that the patient meets or has met medical necessity to require an inpatient IPI level of care meetinga minimum of two midnights or is on the [facility] inpatient only procedure list (status C) due to: acute kidney injury necessitating close monitoring of fluid balance such as intravenous fluids and/or titration of medication to achieve optimal effect and minimize the chance of immediate or severe side effects Genevieve Gabriel RN - 03/29/2016 3:38 PM EDT Pt OK to go for walk off of unit, per Dr. Heredia. Leah Heredia MD - 03/29/2016 7:36 AM EDT Medicine Resident Progress Note Patient Description: Ms. Boone is a 45yo lady w/ hx of chronic migraine w/ aura, depression, anxiety, and ? Psoriasis and multiple other co-morbidities who presented to OSH w/ AMS. Major 24 Hour Events: -Admitted yesterday morning for AMS -?anticholinergic toxicity, all psychotropic medications held -Agitated through the day requiring luisa vest, ripping out IV -Following this episode patient fell asleep and woke calm and cooperative -Melatonin given overnight and she was able to sleep aside from waking frequently to urinate (on 200cc/hr IVF) Subjective: -Feels well this morning -minimal recollection of preceding events, which worries her -she notes that she has been extremely busy moving furniture from their large house to new smaller home and may have become dehydrated -also notes having medications in both places and possibly taking too much by accident, particularlycymbalta as her fibro pain has been worse lately -she denies any worsening of her mood or thoughts of harming herself Physical Exam Temp: [36.6 ??C (97.9 ??F)-37 ??C (98.6 ??F)] Heart Rate: [78-115] Resp: [13-20] BP: (114-156)/(65-96) SpO2: [94 %-100 %] Gen: Lying in bed, alert and oriented x 3, appropriate HEENT: EOMI, PERRL, MMM CV: Regular rhythm. No added sounds or murmurs. Pulm: CTAB Abd: BS+, NT, ND, soft Neuro: No focal neurologic deficits I/O: -2L, unlikely accurate as only 1L IV in (received at 200 cc/hr) Pertinent Labs in Last 24 Hours and Micro Recent Labs 03/29/16 0551 03/28/16 0432 02/03/16 1327 WBC 9.7 14.1* 6.8 HGB 8.8* 8.9* 11.1* HCT 28.1* 29.8* 34.9 PLATELET 531* 610* 724* Recent Labs 03/29/16 0551 03/28/16 2150 03/28/16 1419 NA 146* 142 142 K 3.5 3.2* 4.1 CL 114* 109* 110* CO2 15* 15* 14* BUN 40* 47* 48* CREATININE 3.65* 4.34* 5.04* Recent Labs 03/28/16 0432 02/03/16 1327 AST 16 16 ALT 10 24 ALKPHOS 90 156* BILITOT 0.2 0.3 BILIDIR 0.1 0.1 Recent Labs 03/28/16 0432 02/03/16 1327 TSH 1.77 1.18 Serum Osm 313 => osm gap 313 - 288 - 84/18 - 46/2.8 = 4 UTox negative TSH 1.77 UA: SG 1.006, WBC 9, trace leuks Acetaminophen and salicylate both negative MICB UCx 03/28/16-NG Radiology/Studies in Last 24 Hours: None Assessment/Plan Ms. Boone is a 45yo lady w/ depression, chronic migraine, and multiple other co-morbidities who presents in transfer from OSH for AMS and JORGE. All of her medications were held on admission and she wasstarted on IVF in setting of JORGE. Her altered mental status has resolved with her feeling completelyback to baseline, and renal function has improved (Cr 5 > 3.6). On discussion with her itwas determined that she was missing 6 trazodone and 6 lamictal. She denies intentionally taking these extra pills and thinks she likely became confused by having her pills in two locations while movingbetween houses. She denies any thoughts of harming herself or any worsening of her mood recently. It is possible that she became dehydrated in the setting of being very busy with her recent move, and in the setting of her lisinopril 10 mg daily, developed an JORGE, which caused her psychotropic medications to build up. Confusion from polypharmacy with impaired clearance may have lead to accidental extra pill intake exacerbating her confusion. Plan #Altered mental status -resolved -Continue to hold medications (clonazepam, baclofen, cymbalta, olazepine, topamax, lamictal, trazodone, scopolamine) #JORGE -Large improvement with IVF (Cr 5 to 3.7) -Continue to hold PPI and lisinopril -Discontinued IVF today and encouraged increased po intake -Will hold on Renal US given high suspicion for prerenal, particularly with AMS and large improvement with rehydration -Monitor with daily BMP DVT ppx: heparin sq Code status: FULL CODE Leah Yan PGY 2 Internal Medicine Purple Team Pager [phone] Associated attestation - Dhruv Varner MD - 03/30/2016 2:51 PM EDT [facility] Medicine -- Attending Progress Note Please see Dr. Heredia's note for details of the patient history of presentation and data. I have discussed, reviewed and agree with the documented History, Physical findings, Assessment and Plan of care. I have examined the patient myself and personally reviewed all studies. Additions to the history, physical, assessment and plan include the following: Creatinine improving. Much more awake today, but not at baseline. Confusion overnight but now much better. Will continue to hydrate and observe, expect continued improvement of her creatinine. Exact etiology of JORGE remains unclear but appears to be all prerenal. Would hold her psych meds for one more day and plan to restart tomorrow. Attestation I certify that I am a D-H credentialed attending provider with admitting privileges and that the patient meets or has met medical necessity to require an inpatient IPI level of care meetinga minimum of two midnights or is on the [facility] inpatient only procedure list (status C) due to: acute kidney injury necessitating close monitoring of fluid balance such as intravenous fluids and/or titration of medication to achieve optimal effect and minimize the chance of immediate or severe side effects Daphne Peoples RN - 03/28/2016 12:23 PM EDT Pt. admitted to [facility] at approximately 12PM. Pt alert but minimally responsive to questions, unableto follow commands. Bed alarm on. IV fluids infusing as ordered. Will continue to monitor and notifyMD of any acute events. documented in this encounter H&P Notes Karli Jiménez MD - 03/28/2016 6:17 AM EDT Hospital Medicine Admission H&P Reason for admission: AMS ID Ms. Boone is a 45yo lady w/ hx of cervical cancer, chronic migraine w/ aura, depression, anxiety, and ? Psoriasis and multiple other co-morbidities who presented to OSH w/ AMS. HPI Pt was not able to provide hx as she is largely non-verbal and only able to provide yes/no answers that actually were not reliable so all hx was obtained from chart review and communication from other providers. I could not reach by home or mobile phone. Ms. Boone has been altered and non-communicative in the last 2 days or so w/o known ingestion of illegal substances or overdose of current medications. She was at [facility] until recently 03/06, and was doing well. It is not known why pt was there (possibly from depression per RN in ED). [facility] brought her to [facility] ED for further evaluation. She was not communicative there, either, but did have normal vital signs throughout. The labs there on presentation were as follows: WBC 18.3, Hgb 11.1, PLT 707k, no bands SCr 5.7 (1.22 two months ago), K 4.1, Cl 107, CO2 17, BUN 46, BG 112 Ca 9.5 ALT 29, AST 28, AlkP 115, Tbili 0.5, Alb 4.2, total protein 7.5 EtOH <10 Salicylate <1.0 Acetaminophen <10.0 UA: SG 1.006, 9 WBC She received NS x2L w/ some improvement in her SCr while her AG remained essentially unchanged. Her ABG after fluid boluses was as follows PH 7.24, pCO2 33, pO2 87 Lactic acid 0.9 Her Utox and Upreg were negative at the OSH. Head CT and CXR were both negative. She was accepted by [facility] for transfer to [facility]. She has continued to have good UOP (400mL since arrival here). PMHx (from outside office notes from couple months ago) Chronic migraine PUD Psoriatic arthritis Depression Anxiety Fibromyalgia Medications ?? Klonopin 1mg PO TID ?? Baclofen 20mg PO TID ?? Cymbalta 60mg PO BID ?? Olanzapine 10mg PO daily ?? Lamictal 25mg 2 tabs BID ?? Nexium 40mg PO BID ?? Sucralfate 1g 4 times daily ?? topamax 25mg 2 tabs QHS ?? Chlorpromazine 50mg PO PRN ?? Trazodone 50mg PO QHS ?? Lisinopril 10mg PO daily ?? Folic acid 1mg PO daily ?? scopalamin transdermal patch 1 patch q3days PSHx Cholecystectomy SHx Former smoker, 15-pack year smoking hx Denied EtOH or recreational drug use on most recent GI clinic visit Physical Exam Last value Range last 24 hrs Temperature Temp: 37 ??C (98.6 ??F) Temp: [37 ??C (98.6 ??F)] Heart Rate Heart Rate: 98 Heart Rate: [98] Blood Pressure BP: 121/78 BP: (121)/(78) Respiratory Rate Resp: 15 Resp: [15] SpO2 SpO2: 93 % SpO2: [93 %] Gen: Sound asleep and snoring before waking up to vigorous sternal rub. Once awake, eyes wide open w/ occasional unintelligible speech, although was able to catch her repeatedly saying I'm sorry, siramong other things. Does not fall asleep during exam HEENT: Anicteric sclerae, slight conjunctival pallor, dry mm, dilated pupils w/ normal reflexes to light, no cervical lymphadenopathy, no elevated JVP, no meningismus, NC/AT CV: Regular rhythm. No M/R/G. Extremities well perfused Pulm: CTAB w/o w/r/c Abd: BS+, NT, ND, soft Back: No CVA tenderness Skin: No track hunt, no suspicious lesions in her upper chest, back, arms or legs Neuro: Mostly unintelligible speech w/ unreliable yes/no questions Able to follow simple commands (wiggle toes, shrug shoulders, open moutn, etc) Not rigid No hyperreflexia Slow movement, but strength appear intact (getting up to position herself during exam Labs reviewed and remarkable for WBC 14.1, Hgb 8.9, PLT 610k w/ no bands Na 144, K 3.9, Cl 110, CO2 15, BUN 46, SCr 5.09, BG 84 Ca 7.6, Mg 0.82, Phos 4.8 Acetaminophen and salicylate both negative LFTs unremarkable VBG 7.26/33/37/14.3 Lactate 1.1 CK 67 Serum Osm 313 => osm gap 313 - 288 - 84/18 - 46/2.8 = 4 UTox negative TSH 1.77 UA: SG 1.006, WBC 9, trace leuks EKG Normal sinus @ 95 No suspicious MENDY/STD or TWI No QTc prolongation Impression Ms. Boone is a 45yo lady w/ depression, chronic migraine, and multiple other co-morbidities who presents in transfer from OSH for AMS and JORGE. It is not clear to me w/ no collateral hx from her or other family members what happened. Her labs have not been suggestive of ingestion (negative toxscreen, no osm gap). Her UA and CK essentially rules out rhabdo. Her exam does not suggest serotoninsyndrome or neuroleptic malignant syndrome. She does not appear to be in withdrawal, but AAS can be considered after discussion w/ . Her presentation may be consistent w/ anticholinergic toxicity, which would explain AMS, dilated pupils and JORGE from urinary retention. However, I do not see a sco polamine patch on her at this time. Her metabolic acidosis is probably from her severe JORGE and she is responding w/ respiratory compensation. These should improve as her JORGE improves. As she has good UOP w/ turner in place, I do not think she needs renal US urgently, but if her SCr does not continue to improve, this would be a reasonable diagnostic test to perform. I doubt she has UTI as the cause of this even though she does have 9 WBCs. It would be interesting to see the urine under the microscope to look for any clues on the etiology of her JORGE. Her mental status may actually be slowly improving now w/ good UOP into her turner so I do not think she needs anything beyond supportive measures and holding psychotropic medications. The most important thing going forward is getting in contact w/ family who can provide some detailed hx and confirm her code status. # Acute renal failure c/b AG metabolic acidosis w/ respiratory compensation # AMS, ?secondary to anticholinergic toxicity or polypharmacy, unlikely to be ingestion # Depression w/ recent stay at [facility] Plan - Admit to Purple team, pager [phone] starting 0800 today - Holding all psychotropic medications - Renal US to r/o obstruction if SCr does not continue to improve - No need for abx at this time, follow up on reflex UCx - Further hx when arrives and decide on AAS at that time - Continue supportive care to maintain at least even I/O - Trend renal fcn and WBC - Holding home PPI as these can contribute to renal failure - Holding home lisinopril - Continue home sucralfate and vitamin supplements DVT ppx: heparin sq Code status: FULL. Clarify w/ when he arrives KARLI JIMÉNEZ MD PGY-3, Internal Medicine Consult Service Consult pager [phone] Associated attestation - Dhruv Varner MD - 03/28/2016 2:23 PM EDT [facility] -- Attending Documentation I have examined the patient myself on 03/28/2016 and reviewed all labs and studies personally. Please see Dr. Jiménez's documentation for details of the patient history of presentation and data. I have discussed, reviewed and agree with the documented history with ROS, physical findings, labs/studies, assessment and plan of care. Additions to the history, physical, assessment and plan include the following: Of note, Dr. Jiménez's note states that this patient has a history of cervical cancer. I believe this may be an error, as there is no other documentation of such, and a CT Abd in 2012 demonstrated a normaluterus. Other than this issue, I agree in full with his history and assessment. This AM we are unable to obtain any further history from the patient. She is awake and is able to answer very basic questions, but then perseverates on a single answer regardless of the question asked.I have attempted to contact her several times at their home number without success. Her renal function appears to be improving with fluids, and she has a good urine output. We will check a BMP later this PM to ensure she is improving. Her encephalopathy is of unclear etiology -- although uremia can do this, it usually requires worse renal function with a BUN >100. A toxidrome fromone of her medications seems likely, her dilated pupils suggest an anti-cholenergic may be the issue. Agree with holding all of her psych meds, and the WALESKA. JORGE appears to be prerenal, but if so would expect her history to demonstrate very poor PO intake (or some large fluid losses) at home. Obstruction is a possibility, but is less likely (unless the history of cervical cancer is actually correct). Hopefully, further history from the will clarify the situation. Attestation I certify that I am a D-H credentialed attending provider with admitting privileges and that the patient meets or has met medical necessity to require an inpatient IPI level of care meetinga minimum of two midnights or is on the [facility] inpatient only procedure list (status C) due to: acute kidney injury necessitating close monitoring of fluid balance such as intravenous fluids and/or titration of medication to achieve optimal effect and minimize the chance of immediate or severe side effects documented in this encounter ED Notes Paula Rose RN - 03/28/2016 7:15 AM EDT During bedside report, noticed scopolamine behind right ear - removed. Leona Ponce RN - 03/28/2016 6:05 AM EDT in room to examine pt, pt was very hard to rouse then came awake suddenly, unable to follow commands, cont to say 'I'm sorry, I'm sorry, unable to elaborate. Rangel Elder MD - 03/28/2016 4:06 AM EDT This 45 y.o. female was transferred from an outside hospital emergency department to receive specialty care provided by the critical care service for acute renal failure. I have reviewed the records from the outside hospital, the patients vitals as recorded in the electronic medical record, and ED nursing notes. Clinical Summary: The patient was recently released from [facility] after voluntary admission, at which time a number of her psychiatric medications were changed. She was doing well until 2 days ago, when she developed increasing altered mental status. As of yesterday morning, she was no longer responding appropriately and had a BM in the bathtub. She presented to [facility] and was found to be in JORGE with a metabolic acidosis. Creatinine was 5.7 with pH of 7.2 and anion gap of 18. WBC count was in the high teens. The patient was given 3L of IVFs. She now presents to [facility] for higher level of care. Focused Exam: GEN: NAD, patient not responding appropriately to questioning. HEENT: PERRLA, EOMI, oropharynx clear, no evidence of trauma CV: RRR PULM: CTAB, protecting airway ABD: soft, nontender, nondistended : turner in place. Flushed and now draining appropriately SKIN: no rashes noted NEURO: patient not answering questions appropriately. Referred to me a Emmanuel. A&O x0. Follows simple commands but then continues to repeat action, such has hand gripping, mouth opening, or toe wiggling. ED Directed Interventions: - Bedside US showed good cardiac squeeze with no septal bowing and no pericardial effusion, normal caliber aortic trunk, IVC with minimal collapse. I discussed the case with the resident/fellow of the accepting service. The patient was deemed to bestable and not require further involvement from the attending emergency physician at this time. The accepting service has assumed further care of the patient. Please see their notes for any further clinical details and subsequent course. Rangel Elder MD Resident 03/28/16 0741 Associated attestation - Augie Obrien DO - 03/28/2016 8:17 AM EDT ED ATTENDING ATTESTATION NOTE The patient was seen in conjunction with Dr. Elder, the resident physician. I have independently performed the candelaria portions of the history and physical exam. I have reviewed the nursing notes, vital signs, and all diagnostic studies personally including labs, imaging studies and EKGs. I have discussedthe details of the case with the resident and agree with the assessment and plan as described in theresident note above unless noted otherwise below. Brief Summary: Patient is a 45-year-old female with past history significant for psychiatric diseaserecently released from psychiatric treatment becoming altered over 2 days. Patient has no fevers. Patient able to answer basic questions and follow basic commands though does have recording which may be a sign of catatonia. Labs as noted with acute renal failure. Patient's vital signs stable in the emergency department. Cardiac ultrasound as noted below. Patient seen by the critical care service and they feel that the patient is safe for ISCU on the medicine service which I am in agreement with. I do feel that the patient's symptoms are more likely psychiatric possibly catatonia then organic in etiology though we're undergoing a full organic etiology workup. Bedside Ultrasound During ED Visit: Point of care emergency department limited cardiac ultrasound: Indications: Altered mental status tachycardia Procedure in Detail: Using a phased array transducer, cardiac imaging was performed using Echo Windows: Parasternal short axis, Parasternal long axis, Apical four chamber, Subxyphoid and IVC windows. Imaging showed a no pericardial effusion and LV function: Normal (EF>50%) global left ventricular function. The inferior vena cava was interrogated in the right parasaggital plane and was without respiratory variation. Other findings or limitations: None Impression: Point of care limited bedside echocardiography with no pericardial effusion and LV function: Normal (EF>50%) global left ventricular function. This study was supervised by an ultrasound credentialed emergency physician. These images were archived digitally and I independently interpreted the images at the bedside and agree with the documentedresults. Final Assessment: Altered mental status documented in this encounter Miscellaneous Notes Consult Note - Andre Suresh MD - 04/01/2016 9:51 AM EDT Psychiatric Inpatient Consultation Follow Up Note Time Spent: 25 minutes Information Sources: Patient. This patient was discussed with Dr. Blum. See his note for confirmatory and/or revisionary documentation. Reason for consultation: Medication and psychosis assessment Interim History: -Nursing noted that patient came out of room, confused asking about an unknown personage named Elizabeth. She then asked for directions to her room even though standing in front of the door. She had no recollection of these events. -Endorses that she might have been taking morning and afternoon meds at the same time secondary to confusion about dosing but continues to deny SI -Denies hallucination. -Recalls some thoughts about water boarding yesterday, but denies any thoughts about this today. -Agrees to psychiatric admission to help clarify what has been going on -No mention of bleeding today -Endorses that she has been taking a laxative/cleanser/probiotic that she bought online, but denies any somatic delusions other than issues with constipation. Review of Systems: Constitutional: Denies fever/chill/pain HEENT: Deinies chest pain/palpitiaotn Cardiovascular: Respiratory: GI: Loose stool-not diarrhea per se /VIDEO MANAGER (include LMP if applicable): Endocrine: Musculoskeletal: Integumentary: Neurological: Hematologic/Lymphatic: Allergic/Immunologic: Psychiatric: See above Extent of history Determination: Dylan descriptors, reviewed systems, and level of history with x. HPI Descriptors 1-3 1-3 x 4 + Reviewed Systems 0 1 x 2-9 Level of Hx PF EPF x D Physical Exam: Last value Range last 24 hrs Temperature Temp: 36.7 ??C (98 ??F) Temp: [36.5 ??C (97.7 ??F)-36.8 ??C (98.2 ??F)] Heart Rate Heart Rate: 82 Heart Rate: [70-104] Blood Pressure BP: 162/72 (manual bp was 160/110) BP: (122-165)/(72-99) Respiratory Rate Resp: 16 Resp: [16-18] SpO2 SpO2: 100 % SpO2: [99 %-100 %] Mental Status Evaluation: Musculoskeletal System: Muscle Strength/Tone (note atrophy, abnormal movements): No abnormal movments Gait and Station: Normal gait/station-seen walking around the room with ease Psychiatric: ?? Appearance: age appropriate and casually dressed in noe ?? Behavior: Cooperative with the interview ?? Speech: normal rate, rhythm, volume, pitch, prosody ?? Language: German speaking, normal ?? Mood: I'm ?? Affect: mood-congruent ?? Thought Process: linear, logical, goal-directed ?? Associations: Intact ?? Thought Content: Denies SI. Denies HI. ?? Perception: no AVH. ?? Orientation: person, place, situation and day of week ?? Attention/Concentration: Fair to good ?? Cognition: grossly intact ?? Memory: recent and remote memory intact ?? Fund of Knowledge: fair to good ?? Insight: fair ?? Judgment: fair Pertinent Diagnostic Testin04/01/2016 07:59 Sodium 144 Potassium 2.9 (CRIT) Chloride 107 CO2 23 Anion Gap 14 BUN 10 Creatinine 0.98 Estimated GFR >60 Glucose Lvl 89 Calcium 8.8 Extent of Exam Determination: Dylan completed bullets & level of exam with ? X? Bullets Completed 1-5 6-8 x 9+ Level of Exam PF EPF x D Assessment: 45 YOF transferred from outside hospital for treatment of ARF and mental status change with recent psychiatric symptoms consistent with MDD with psychosis vs psychosis due to another medical condition.She was restarted on Zyprexa with good effect and decreased somatic delusions. Renal function appears to have improved back to baseline with appropriate medication administration. Given all of her psychiatric changes over the last few months and continued waxing/waning symptoms she would still benefitfrom an inpatient admission. This has been discussed with the patient and she is willing to be admitted on a voluntary basis. She agrees that things just have not been right lately and seems to have been spurred on by her many stresses at home including children leaving, moving, and minimal family support from her . She has no outpatient psych follow up set up and this could be set up during an inpatient admission. 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 Plan/Recommendations: ?? -No safety concerns-No 1:1 sitter required - Agree with restarting Zyprexa at this time - Continue holding Topiramate, Lamictal and Cymbalta awaiting improvement in kidney function - Consider restarting Lamictal At induction dosing of 25 mg QD for two weeks and titrated per normalschedule -Patient will benefit from a psychiatric admission given past history of MDD with psychotic features(per PCP note). She is agreeable to an admission at this time with hopes of being admitted to inpatient psychiatry today (04/01/2016) -Psychiatry to continue following, please page [phone] with any questions or concerns. ? Recommendations were communicated to primary residential team leader Tyron Mendez . ANDRE SURESH MD 04/01/2016 Coding Determination Complexity of MDM Determination: Dylan [...] Minimal Straightforward Limited Limited Low Low Multiple x Moderate Moderate Moderate x Extensive Extensive x High x High Subsequent Hospital Day Service Code Determination: Dylan Hx, Exam, MDM & CASSIDY/CPT Code with x. 2 out of # candelaria components in the row must be met to qualify. HISTORY EXAM MDM CASSIDY/CPT CODE PF PF Straightforward/Low 3005/57975 EPF EPF Moderate 3015/75862 x D x D x High x 3025/51569 Associated attestation - Ang Blum MD - 04/02/2016 8:41 AM EDT Psychiatry Attending Note I discussed this patient's situation with the resident but did not see the patient. I contributed tothe formulation and treatment planning as documented in the resident's note. Ang Blum MD Psychiatry Consultation Pager: [phone] Plan of Care - Zoe Porter RN - 04/01/2016 3:53 AM EDT Problem: General Plan of Care Goal: Plan of Care Review Outcome: Ongoing (Interventions Implemented as Appropriate) 03/29/16 1224 03/31/161999 Plan of Care Review Plan of Care Outcome Status ongoing (interventions implemented as appropriate) -- Progress progress toward functional goals as expected -- Coping/Psychosocial Response Interventions Plan of Care Reviewed with -- patient OUTCOME EVALUATION NOTE: OUTCOME SUMMARY: The patient has been intermittently disoriented this shift to place and situation. She has come out of her room a couple times asking for a woman named Elizabeth and another time, wondering where her roomwas. She has been pleasant and cooperative with all care, and easily reoriented/redirected. She denies any pain, N/V, SOB, dizziness. No reports of auditory or visual hallucinations. She has been in bed, with eyes closed, and unlabored respirations for majority of the shift. PLAN MOVING FORWARD: - additional emotional support - redirection/coping skills/breathing exercises - inpatient psych admit? INDIVIDUALIZED FALL PREVENTION INTERVENTIONS: Patient-specific fall risk factors per assessment: [current deficits]: Intermittent confusion, meds Assistance [level of assistance required for transfers and ambulation]: Independent Supervision [direct monitoring required during toileting and ADLs]: Independent Surveillance [continuous indirect monitoring]: Hourly rounding overnight Patient-specific fall prevention interventions for sensory deficits provided, if applicable: CPG GOAL OUTCOME EVALUATION: Goal: Individualization and Mutuality Outcome: Ongoing (Interventions Implemented as Appropriate) 03/28/16 2300 Mutuality/Individual Preferences What anxieties, fears or concerns do you have about your health or care? fear of dying young like her mother What questions do you have about your health or care? none at this time What information would help us give you more personalized care? none Goal: Fall Prevention-Safe Patient Handling Outcome: Ongoing (Interventions Implemented as Appropriate) 03/29/16 0803/31/16199904/01/16 0200 Musculoskeletal Interventions Activity/Level of Assistance -- up ad zenaida;independently -- Positioning -- -- independent Muscle Strengthening activity/mobility promoted;mobility in bed promoted;up in chair encouraged for meals and activities -- -- Self-Care Promotion independence encouraged while providing assistance -- -- Izquierdo Fall Risk History of Falling -- 0 -- Secondary Diagnosis -- 15 -- Ambulatory Aids -- 0 -- Intravenous Therapy/Heparin/Saline Lock -- 20 -- Gait/Transferring -- 0 -- Mental Status -- 0 -- Score -- 35 -- Activity and Safety Assistive Device -- None -- OTHER Izquierdo Fall Risk -- Med -- Safety Interventions Safety Precautions/Fall Reduction -- -- environmental modification Goal: Infection Control Outcome: Ongoing (Interventions Implemented as Appropriate) 03/31/16199904/01/16 0008 Coping/Psychosocial Response Interventions Counseling verbalization of feelings encouraged;understanding of situation facilitated -- Safety Interventions Isolation Precautions -- standard precautions maintained Infection Prevention rest/sleep promoted -- Goal: Discharge Needs Assessment Outcome: Ongoing (Interventions Implemented as Appropriate) 03/28/16 2300 Living Environment Transportation Available car Problem: Skin Integrity Impairment, Risk/Actual (Adult, Obstetrics) Goal: Skin Integrity/Wound Healing Patient will demonstrate the desired outcomes. Outcome: Ongoing (Interventions Implemented as Appropriate) 04/01/16312 Skin Integrity Impairment, Risk/Actual (Adult, Obstetrics) Skin Integrity/Wound Healing making progress toward outcome Problem: Confusion, Acute (Adult) Goal: Cognitive/Functional Impairments Minimized Patient will demonstrate the desired outcomes. Outcome: Ongoing (Interventions Implemented as Appropriate) 04/01/16312 Confusion, Acute (Adult) Cognitive/Functional Impairments Minimized making progress toward outcome Goal: Safety Patient will demonstrate the desired outcomes. Outcome: Ongoing (Interventions Implemented as Appropriate) 04/01/16312 Confusion, Acute (Adult) Safety making progress toward outcome Problem: Fall/Trauma/Injury Risk (Adult, Obstetrics) Goal: Absence of Trauma/Injury/Falls Patient will demonstrate the desired outcomes. Outcome: Ongoing (Interventions Implemented as Appropriate) 04/01/16312 Fall/Trauma/Injury Risk (Adult, Obstetrics) Absence of Trauma/Injury/Falls making progress toward outcome Plan of Care - Nevaeh Raymond RN - 03/31/2016 6:50 PM EDT Problem: General Plan of Care Goal: Plan of Care Review Outcome: Ongoing (Interventions Implemented as Appropriate) OUTCOME EVALUATION NOTE: OUTCOME SUMMARY: Lisseth continues to feel paranoid and is experiencing auditory and visual hallucinations. She is obsessed with an idea of her being initiated and 'waterboarded'. She has perseverated on this idea today to the point of her crying and pulling her hair. Assisted patient with a deep breathing exercise a fter which she said she felt better and then returned to stating that she 'knew the process was staring soon and that it kept being put off Frequent redirection, grounding and distraction do not seem to help with this perseveration/delusion. Klonopin and Lamictal have been added back by recs from Psychiatry. PLAN MOVING FORWARD: Safety/Mobiliyt Redirection- Coping skills- Deep breathing/ grounding exercises Restart home medications Inpatient Psych admission for medication adjustments INDIVIDUALIZED FALL PREVENTION INTERVENTIONS: Call franco in reach Patient-specific fall risk factors per assessment: [current deficits]: Unfamiliar environment Assistance [level of assistance required for transfers and ambulation]: Ind Supervision [direct monitoring required during toileting and ADLs]: Ind Surveillance [continuous indirect monitoring]: Hourly rounding, call franco in reach Patient-specific fall prevention interventions for sensory deficits provided, if applicable: [X] N/A CPG GOAL OUTCOME EVALUATION: Plan of Care - Lauryn Ramirez RN - 03/31/2016 2:40 AM EDT Problem: General Plan of Care Goal: Plan of Care Review Outcome: Ongoing (Interventions Implemented as Appropriate) 03/29/16 1224 03/30/16 1915 Plan of Care Review Plan of Care Outcome Status ongoing (interventions implemented as appropriate) -- Progress progress toward functional goals as expected -- Coping/Psychosocial Response Interventions Plan of Care Reviewed with -- patient OUTCOME EVALUATION NOTE: OUTCOME SUMMARY: Pt alert and oriented x4, BP slightly elevated, made aware, meds ordered x1 see mars. Menses still present. Pt restarted her psych meds, will continue to monitor and assess PRN and notify MD of any acute changes. Pt delusional and paranoid this morning.....stated I'm not sure when the democrat is butI don't want it when asked what democrat she stated...the water log democrat, the one they tie you to a log and douse you with water, I understand that some ppl can from it, pt reassured that this doesn't happen at all, pt also asking why she is not getting her clonazepam, MD notified of above statement. PLAN MOVING FORWARD: Continue to monitor Blood work, VS , discharge planing, restarting home meds INDIVIDUALIZED FALL PREVENTION INTERVENTIONS: Patient-specific fall risk factors per assessment: [current deficits]: independent Assistance [level of assistance required for transfers and ambulation]: independent Supervision [direct monitoring required during toileting and ADLs]: independent Surveillance [continuous indirect monitoring]: Hourly rounding, call franco within reach, room close to nurse's station Patient-specific fall prevention interventions for sensory deficits provided, if applicable: no CPG GOAL OUTCOME EVALUATION: Plan of Care - Nevaeh Raymond RN - 03/30/2016 6:13 PM EDT Problem: General Plan of Care Goal: Plan of Care Review Outcome: Ongoing (Interventions Implemented as Appropriate) OUTCOME EVALUATION NOTE: OUTCOME SUMMARY: Lisseth is withdrawn and cautious today. She is very concerned about her 'bleeding all over' which appears to be her menses. She does not report or appear to have hemorrhoids. Will monitor and advised her to check in with her REFUSE LABORER when she was home. PLAN MOVING FORWARD: Safety/Mobility Monitor for bleeding Reorientation INDIVIDUALIZED FALL PREVENTION INTERVENTIONS: Call franco in reach Patient-specific fall risk factors per assessment: [current deficits]: Unfamiliar environment Assistance [level of assistance required for transfers and ambulation]: IND Supervision [direct monitoring required during toileting and ADLs]: IND Surveillance [continuous indirect monitoring]: Masimo Patient-specific fall prevention interventions for sensory deficits provided, if applicable: [X] N/A CPG GOAL OUTCOME EVALUATION: Consult Note - Andre Suresh MD - 03/30/2016 2:11 PM EDT Psychiatric Initial Inpatient Consultation Note Time of Consultation: Afternoon of 03/30/2016 Time Spent: Information Sources: Patient. This patient was discussed with Dr. Blum. See his note for confirmatory and/or revisionary documentation. Reason for consultation: I have been asked by attending physician Dr. Varner to see Lisseth Boone for recommendations regarding the management of restarting psychotropic medications and safety evaluation due to concern of potential drug overdose and I have outlined my findings and recommendationsin this report. History of Present Illness: (Descriptors: Location, Quality, Severity, Duration, Timing, Context, Modifying factors & associated symptoms): 45 YOF with PMH of chronic diarrhea, migraine headaches with aura, depression/anxiety and recent admission to [facility] for evaluation and treatment OSH for further treatment of AMS and ARF inthe setting of potentially taking too many of her meds 2/2 to confusion and potentially overtaking her daily meds. Upon interviewing the patient, she is a poor historian and very tangential with her thought process.She initially noted that she was glad that psychiatry was coming to meet with her to help her understand why she thinks that she has been bleeding. She went on to state: you saw the disgusting pants, I thought that it was the bleeding from behind and in front I had a dream about people vomitting blood and I thought........ I'm not sure what I thought. with more directed questioning she was unable to give any specifics of the bleeding other than that she was worried that there was something gross with bacteria and that it was not right. She then went on to discuss that it wasn't really a bleeding, but that she had been using the lotion wash which should have cleaned it but that it was not working. This was still confusing and she was again pressed about the bleeding and what was going on, shestill seemed confused about the bleeding and related that maybe it wasn't bleeding but was more likebeing chapped. She did not know if she is menstruating or if she is in fact bleeding. She does note t hat she has diarrhea at baseline and has to wipe every 20 or 30 minutes. Nursing was contacted who have not witnessed any bleeding or constant diarrhea and are unaware of any acute changes in bowel habits. The patient has no real recollection of any significant changes prior coming into the hospital otherthan packing her house to move. Patient was discharged on 03/06/2016 from [facility] where she was admitted after being evaluated on 3 separate occasions in the emergency department. From review of [facility]'s admission H&P the patient has made significant complaints about her chronic diarrhea and has been worked up for this on several occasions. She has been undergoing purgesone being approximately 4 weeks prior to admission in anticipation of upper and lower endoscopy and then another self administered purge of a product that she purchased online that led to severe diarrhea. Review of records from our hospital at that approximate time revealed initial changes in GFR and creatinine clearance. From a direct quote from the [facility] H&P: Then 2 weeks ago on 02/21/16 she had an acute episode where she was mean, crying for no reason and was speaking gibberish, hearing voices of her mother speaking in a negative threatening way, and toldher 13-year-old daughter to leave the room for her own safety, then believing her had left her and was behind a wall in the closet in her home, she went into a closet and pulled it apart walk kicking at it, was incontinent of urine and had her face covered in saliva. She thought she hurt her daughter. She calls it a few. She is brought to the [facility] ER she was volatile screaming [...] to the ER, noting auditory hallucinations were comman ding her to watch videos online on how to kill herself and to follow them, and she heard auditory hallucinations of her mother telling her negative things, and she voiced wanting to get in the tub and slice her wrists as a way to and this escape the hallucinations. She also appeared distracted anddisorganized and still paranoid and thought another patient in the ER was not real. Labs noted negative tox screen and some abnormal labs high white blood cell count 10.1 and low hemoglobin at 10.3 high platelets and high eosinophils was elevated at 100 and AST elevated at 45 urine tox positive for tricyclic's, she had smoked a few cigarettes but again denied drug use Patient was diagnosed with major depressive disorder with psychotic feature per her primary care provider and was started on olanzapine 10 mg daily at that time. She seemed to have good effect with this medication however was eventually admitted to [facility] for continued monitoring. During her hospitalization of [facility] Wellbutrin was discontinued and Zyprexa was continued as well as arrests for all medications. She was started on scopolamine patches for nausea. Their final assessment was that she had symptoms consistent with bipolar affective disorder type II secondary to rapid change in mood within hours. Psychiatric Review of Systems: Sustained Depressed Mood: - Sustained Elevated Mood: - Sustained Irritable Mood: - Flashbacks: + Nightmares: - Panic Attacks: + Chronic Worry: - Psychotic Symptoms: - per patient-but + per [facility] and PCP notes Obsessions/compulsions: - Violence: - Self Harm: - Past Psychiatric History: Prior diagnoses: Fibromyalgia ELIANA PTSD MDD with Psychotic features? Per PCP BPAD-II? Diagnosed in Mid February 2015 at [facility]ndry to a mental breakdown after havingdecreased need for sleep and being irritable with family.Past hospitalization and location: [facility] and diagnosed with BPAD II Suicide attempts: Denies Past psychiatric medications: Current Medications: Clonazepam TID Cymbalta 60mg daily for fibro/depression/anxiety Lamictal: unsure of dosing but recently started Zyprexa 10 mg nightly Topiramate nightly for migraine prophylaxis Trazodone QHS for sleep Substance Use History/Treatment: Denies Alcohol/illicit drug use. Has a past tobacco history, quit for some time, but smoked for 3 days 3 weeks ago to try and get her to stop. She initially quit smoking 14+ years ago, previously smoking 1 PPD for approximately 12 years. Problem List: Patient Active Problem List Diagnosis [...] BX performed by David Hardy MD at [facility] ENDOSCOPY ??? Pro upper gi endoscopy, biopsy N/A 02/11/2016 UPPER GASTROINTESTINAL ENDOSCOPY,WITH BIOPSY SINGLE OR MULTIPLE performed by David Hardy MD at [facility] ENDOSCOPY Medications: Current Facility-Administered Medications Medication Dose Route Frequency Provider Last Rate Last Dose ??? [START ON 03/31/2016] OLANZapine (ZyPREXA) tablet 10 mg 10 mg Oral Nightly Leah Heredia MD ??? OLANZapine (ZyPREXA) tablet 10 mg 10 mg Oral Once Leah Heredia MD ??? folic acid (FOLVITE) tablet 1,000 mcg 1 mg Oral Daily Karli Jiménez MD 1,000 mcg at 03/30/16 0800 ??? riboflavin (vitamin B2) tablet 100 mg 100 mg Oral Daily Karli Jiménez MD 100 mg at 03/30/16 0800 ??? sucralfate (CARAFATE) tablet 1 g 1 g Oral 4 Times Daily Karli Jiménez MD 1 g at 03/30/16 0800 ??? sodium chloride 0.9 % flush 5 mL 5 mL Intravenous BID Karli Jiménez MD 5 mL at 03/30/16 0800 ??? sodium chloride 0.9 % flush 5-20 mL 5-20 mL Intravenous Q1 Min PRN Karli Jiménez MD ??? lidocaine (XYLOCAINE) 10 mg/mL (1 %) injection 3 mg 0.3 mL Subcutaneous Once PRN Karli Jiménez MD ??? heparin (porcine) subcutaneous injection 5,000 Units 5,000 Units Subcutaneous Q8H OSIRIS Karli Jiménez MD 5,000 Units at 03/30/16 0510 ??? docusate sodium (COLACE) capsule 100 mg 100 mg Oral BID PRN Karli Jiménez MD ??? acetaminophen (TYLENOL) tablet 650 mg 650 mg Oral Q6H PRN Karli Jiménez MD 650 mg at 03/29/16 0608 ??? multivitamin (THERAGRAN) tablet 1 tablet 1 tablet Oral Daily Karli Jiménez MD 1 tablet at [id number] Medical Review of Systems: Constitutional: No pain/chills/fever. Slightly decreased apetited HEENT: mild dry eyes, no dysphagia, intermittent tinnitus but not recently Cardiovascular: No CP or palpitations Respiratory: No cough/sob/wheezing GI: Diarrhea since coming into the hospital. 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 She has not worked during the summer break. Got a graduate degree in education in 2007. . with children. Currently in the process of moving to a new home with 20 acres and is looking forward to the move and the possibilities for her children's school and the size of their new home. 13, 19, 24 year old children, oldest lives out of home with his girlfriend. 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 Family Medical/Psychiatric History: (mental illness, substance use, suicide) -Mother was Out of it and would often leave to go an [employer], using MJ and Alcohol. History of multiple overdoses. From chart review, she mentioned that her mother has schizophrenia, but was unable to validate this during today's interview. -Informed that depression ran in her family, but not sure who. Extent of History Determination: Dylan # of [...] Temperature Temp: 36.7 ??C (98.1 ??F) Temp: [36.3 ??C (97.3 ??F)-36.7 ??C (98.1 ??F)] Heart Rate Heart Rate: 72 Heart Rate: [69-75] Blood Pressure BP: (!) 168/95 BP: (151-168)/(90-95) Respiratory Rate Resp: 18 Resp: [18] SpO2 SpO2: 99 % SpO2: [99 %-100 %] Mental Status Evaluation: Musculoskeletal System: Muscle Strength/Tone (note atrophy, abnormal movements): No abnormalities on physical exam Gait and Station: Not assessed Psychiatric: ?? Appearance: age appropriate, wearing noe, in NAD ?? Behavior: Cooperative with the interview, normal eye contact ?? Speech: normal rate, rhythm, volume, pitch, prosody ?? Language: German speaking, normal ?? Mood: I don't know why I had gross pants? ?? Affect: Restricted ?? Thought Process: Tangential but redirectable ?? Associations: Intact ?? Thought Content: Denies SI. Denies HI. ?? Perception: no AVH. ?? Orientation: person, place, situation and day of week ?? Attention/Concentration: Fair ?? Cognition: grossly intact ?? Memory: recent and remote memory intact other than if she had overdosed on her medications ?? Fund of Knowledge: fair to good ?? Insight: age appropriate ?? Judgment: age appropriate Pertinent Diagnostic Testing: Urine tox screen-negative Acetaminophen/salicylate levels-negative Extent of Exam Determination: Dylan completed bullets and level of exam with x. Bullets Completed 1-5 6-8 9+ x All Psych & Constitutional + 1 Musculoskeletal Level of Exam PF EPF D x C Assessment: Lisseth Boone is a 45 YOF with complicated past psychiatric history who was transferred from an outside hospital for acute change in mental status and acute renal failure. Psychiatry was consulted initially for question regarding overdose as well as medication management. Upon meeting with the patient she was unaware of the events leading up to her hospital admission and is unsure if she may have overdosed. She is a poor historian and was unable to give any specifics in regards to her past psychiatric history other than dealing with anxiety that has been best controlled with clonazepam. Collateralinformation was collected from [facility] as well as her primary care provider which documented that she has had symptoms consistent with major depressive disorder with psychotic features overthe last month. Oddly, the patient's did not seem overly concerned about her past admission to [facility] and did not reveal any of the information that was gleaned from her PCP and [facility]'s notes.. The patient seems to be perseverating on some underlying delusions of abnormal bleeding. She is unable to give specifics and noted that she was glad that psychiatry was coming to see her and help figure things out. As noted previously, she is focused on bleeding from both sides but was confused at to what was actually happening. She made multiple odd statements about being dirty and having bacteriadown there and needing to be cleansed from the disgusting stuff. From review of [facility]'s initial H&P, they noted that the patient had been using some type of toxin cleanse that she had purchased online. As we are unaware of what she was taking, it may have been a product that could have actua lly led to her acute renal failure. Evaluation of the patient's labs from January 2016, indicate that she started having changes in her renal function about that same time. The acute change in the patient's mental health may be secondary to the product that she was ingesting as well, however this is not something that we can verify, given her poor history and inability to give any specifics. Because of the many concerns and previous hospitalizations the patient may still be dealing with major depression with psychotic features vs psychotic disorder 2/2 to ARF or ingesting of the body cleanse. Based off of the notes that I have reviewed I do not believe that she meets criterion for bipolar affective di sorder type II that she was diagnosed with at [facility] The patient does not currently endorse any symptoms consistent with major depressive disorder and denies auditory and visual hallucinations. However she does endorse some somatic delusions which are concerning. She would benefit from an inpatient admission however she would also likely do well with follow-up with an outpatient psychiatrist and continue dosing with Zyprexa. 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 - Consider Perianal examination to further assess complaints of feeling chapped. - Once appropriate, Lamictal should be restarted on induction dosing and titrated per outpatient team to decrease risk of S.J. Syndrome -Patient may benefit from a psychiatric admission given past history of MDD with psychotic features (per PCP note) and concern for recent overdose. This has not been discussed with her at this time andwill be discussed on 03/31. -Psychiatry to continue following, please page [phone] with any questions or concerns. Recommendations were communicated to primary residential team leader. Coding Determination Complexity of MDM Determination: Dylan [...] Minimal Straightforward Limited Limited Low Low Multiple x Moderate Moderate Moderate x Extensive Extensive x High x High Inpatient Consult Service Code Determination: Dylan Hx, Exam, MDM & CASSIDY/CPT Code with ? X? . All candelaria components in the row must be met to qualify for a given code. HISTORY EXAM MDM CASSIDY / CPT CODE PF PF Straightforward 3200 / 44406 EPF EPF Straightforward 3210 / 04355 D D Low 3220 / 05577 C C Moderate 3230 / 18414 x C x C x High x 3240 / 66782 Associated attestation - Ang Blum MD - 04/02/2016 8:41 AM EDT Psychiatry Attending Note I discussed the case with the resident, and saw and evaluated the patient (on 03/31) within 24 hours of the service described in the resident's note. I reviewed the patient???s history during the visit and I agree with the details as written. My examconfirms the resident's findings. The assessment and plan were formulated in discussion with me and I agree with them as documented. Major issues addressed/discussed: 45F with complicated past psychiatric history as below (with recent inpt admission at [facility] for depression, reportedly doing well since), admitted for AMS in context of likely med overuse (intentional for symptoms relief and not with intent to harm self, as wellas unintentional), renal injury (acute vs [id number]?, related to dehydration?), dehydration itself, depression. Pt is clearing steadily, recommend transfer to inpt psychiatry when medically ready, but due to some lingering confusion/fluctuation would continue to hold psychiatric meds except would restart zyprexa. Will follow. Ang Blum MD Psychiatry Consultation Pager: [phone] Initial Assessments - Edmond Berkowitz, PT - 03/30/2016 12:02 PM EDT Physical Therapy Evaluation Patient profile: Pt. is a 45 y.o. female admitted on 03/28/2016 by Dhruv Marcum MD in transfer from OSH for management of ARF; she presented to OSH with AMS. She is s/p recent psych admissionto OSH with medication changes. Her Kidney function and MS have improved, and she may be d/c'd latertoday. PMH: Past Medical History Diagnosis Date ??? Anxiety ??? Cervical cancer ??? Psoriasis ??? Psoriatic arthritis ??? Weight loss ??? Headache ??? Amnesia ??? MCI (mild cognitive impairment) ??? Closed TBI (traumatic brain injury) ??? Closed C1 fracture ??? Fibrocystic breast changes ??? Breast cancer screening, high risk patient -fibromyalgia -HTN -Bipolar -history of anxiety and depression Past Surgical History Procedure Laterality Date ??? Cervix surgery ??? Cholecystectomy ??? Tubal ligation ??? Pro colonoscopy, biopsy N/A 02/11/2016 COLONOSCOPY FLEXIBLE, WITH BX performed by David Hardy MD at [facility] ??? Pro upper gi endoscopy, biopsy N/A 02/11/2016 UPPER GASTROINTESTINAL ENDOSCOPY,WITH BIOPSY SINGLE OR MULTIPLE performed by David Hardy MD at [facility] Social History: Patient lives with her , 13 year old daughter, 19 year old son home from college during the summer, and 2 dogs (Dude and Tinkerbell- a beagle and a small dog they rescued). Moving to a [place] [facility] [place] no stairs. 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 Equipment at home: none. Precautions/Special Considerations: Wideman, Full code. Subjective: ???Just a little tired, I don't sleep well here,?? regarding how she feels. I was confused, but I am better. Objective: PT referral received, chart reviewed, and pt seen today for 24 minutes for PT evaluation,and pt related discussion. Pain: mild Vital Signs: Stable, see RN flow sheets. Skin: no issues noted. Mental Status: alert, oriented to person, place, and time; pleasant and talkative, but a bit of a flat affect; doesn't make eye contact often. Musculoskeletal: ROM: WFL Strength: WFL Sensation: WFL Bed Mobility: Supine to Sit: independent Sit to Supine: independent Transfers: Sit to Stand: independent Stand to Sit: independent Bed <>Chair: independent Gait: Ambulated 350 ft without a device independently. UP and down 7 stairs with a rail independently. Balance: Sitting: steady Standing: steady. Education: Pt educated on pacing, to let cruise staff member know when she is walking, and to be with someone if she goes off the unit. Patient status, treatment, and mobility recommendations discussed with nursing. Assessment: Pt is a 45 year old admitted in transfer from [facility] with AMS and JORGE, she has improved. PTreferral has been received. Pt is mobilizing independently and safely in the room, and recommend supervision for off the unit ambulation for safety and due to an unfamiliar environment. She is hoping to d/c home with family support in place later today. From a mobility standpoint, she is safe to d/c home with support when she is medically stable. Will monitor her status while she remains in-house, but expect no further inpt PT needs. Plan: Pt seen today for PT evaluation and discussion. Equipment needs: No equipment necessary Tentative D/C Plan: Home with support/assistance Informed Consent: Pt understands and agrees with PT plan, goals, and tentative discharge plan: Yes No other consults recommended at this time- but should continue to have her regular Psych follow up. Total time spent with patient: 24 minutes-eval Total timed interventions: 0 minutes EDMOND BERKOWITZ PT, 03/30/2016 Pager: [phone] Physical Therapy Rehabilitation Department Plan of Care - Lauryn Ramirez RN - 03/30/2016 3:24 AM EDT Problem: General Plan of Care Goal: Plan of Care Review Outcome: Ongoing (Interventions Implemented as Appropriate) 03/29/16 1224 03/29/16 1950 Plan of Care Review Plan of Care Outcome Status ongoing (interventions implemented as appropriate) -- Progress progress toward functional goals as expected -- Coping/Psychosocial Response Interventions Plan of Care Reviewed with -- patient OUTCOME EVALUATION NOTE: OUTCOME SUMMARY: Pt A&O x 4. VSS. No c/o pain. Calm and cooperative this shift, remains anxious; pt encouraged toincrease PO intake. Plan is to discharge home this am pending AM creatinine levels. Pt reading in bed with call franco in reach. Will continue to monitor and assess and notify MD of acute changes. PLAN MOVING FORWARD: - Increase PO fluid intake - Monitor renal status - Discharge planning INDIVIDUALIZED FALL PREVENTION INTERVENTIONS: Patient-specific fall risk factors per assessment: [current deficits]: Pt independent Assistance [level of assistance required for transfers and ambulation]: independent Supervision [direct monitoring required during toileting and ADLs]: independent Surveillance [continuous indirect monitoring]: Hourly rounding, call light within reach Patient-specific fall prevention interventions for sensory deficits provided, if applicable: no CPG GOAL OUTCOME EVALUATION: Plan of Care - Genevieve Gabriel RN - 03/29/2016 12:29 PM EDT Problem: General Plan of Care Goal: Plan of Care Review Outcome: Ongoing (Interventions Implemented as Appropriate) 03/29/16 1224 Plan of Care Review Plan of Care Outcome Status ongoing (interventions implemented as appropriate) Progress progress toward functional goals as expected Coping/Psychosocial Response Interventions Plan of Care Reviewed with patient OUTCOME EVALUATION NOTE: OUTCOME SUMMARY: Pt a & o x 4. VSS. No c/o pain. Calm and cooperative this shift. IV fluids d/c this shift, pt encouraged to increase PO intake of fluids. called to check in on her a few times. Plan is to discharge home tomorrow pending AM creatinine levels. Pt reading in bed with call franco in reach. Will CTM and notify MD of acute changes. PLAN MOVING FORWARD: - Increase PO fluid intake - Monitor renal status - Discharge planning INDIVIDUALIZED FALL PREVENTION INTERVENTIONS: Patient-specific fall risk factors per assessment: [current deficits]: Generalized weakness, nonskidsocks Assistance [level of assistance required for transfers and ambulation]: Independent Supervision [direct monitoring required during toileting and ADLs]: Independent, purposeful rounding Surveillance [continuous indirect monitoring]: Purposeful rounding Patient-specific fall prevention interventions for sensory deficits provided, if applicable: [X] N/A CPG GOAL OUTCOME EVALUATION: Goal: Fall Prevention-Safe Patient Handling Outcome: Ongoing (Interventions Implemented as Appropriate) 03/28/16 1229 03/29/16 0803/29/16 1000 Musculoskeletal Interventions Activity/Level of Assistance -- up in room;with stand by assist -- Positioning -- -- independent Muscle Strengthening -- activity/mobility promoted;mobility in bed promoted;up in chair encouraged for meals and activities -- Self-Care Promotion -- independence encouraged while providing assistance -- Izquierdo Fall Risk History of Falling -- 0 -- Secondary Diagnosis -- 15 -- Ambulatory Aids -- 0 -- Intravenous Therapy/Heparin/Saline Lock -- 20 -- Gait/Transferring -- 0 -- Mental Status -- 0 -- Score -- 35 -- Activity and Safety Assistive Device None -- -- OTHER Izquierdo Fall Risk -- Med -- Safety Interventions Safety Precautions/Fall Reduction -- -- bed alarm;environmental modification;fall reduction program maintained;lighting adjusted for task/safety;low bed;nonskid shoes/slippers when out of bed;room nearunit station Goal: Infection Control Outcome: Ongoing (Interventions Implemented as Appropriate) 03/29/16 0803/29/16 0915 Coping/Psychosocial Response Interventions Counseling goal setting facilitated;personal strengths integrated;problem solving facilitated -- Safety Interventions Isolation Precautions -- standard precautions maintained Infection Prevention bronchial hygiene promoted;rest/sleep promoted -- Problem: Skin Integrity Impairment, Risk/Actual (Adult, Obstetrics) Goal: Skin Integrity/Wound Healing Patient will demonstrate the desired outcomes. Outcome: Ongoing (Interventions Implemented as Appropriate) 03/29/16 1224 Skin Integrity Impairment, Risk/Actual (Adult, Obstetrics) Skin Integrity/Wound Healing making progress toward outcome Problem: Confusion, Acute (Adult) Goal: Cognitive/Functional Impairments Minimized Patient will demonstrate the desired outcomes. Outcome: Ongoing (Interventions Implemented as Appropriate) 03/29/16 1224 Confusion, Acute (Adult) Cognitive/Functional Impairments Minimized making progress toward outcome Goal: Safety Patient will demonstrate the desired outcomes. Outcome: Ongoing (Interventions Implemented as Appropriate) 03/29/16 1224 Confusion, Acute (Adult) Safety making progress toward outcome Problem: Fall/Trauma/Injury Risk (Adult, Obstetrics) Goal: Absence of Trauma/Injury/Falls Patient will demonstrate the desired outcomes. Outcome: Ongoing (Interventions Implemented as Appropriate) 03/29/16 1224 Fall/Trauma/Injury Risk (Adult, Obstetrics) Absence of Trauma/Injury/Falls making progress toward outcome Plan of Care - Lauryn Ramirez RN - 03/29/2016 4:05 AM EDT Problem: General Plan of Care Goal: Plan of Care Review Outcome: Ongoing (Interventions Implemented as Appropriate) 03/28/16 1356 03/28/16 1930 Plan of Care Review Plan of Care Outcome Status ongoing (interventions implemented as appropriate) -- Progress improving -- Coping/Psychosocial Response Interventions Plan of Care Reviewed with -- patient OUTCOME EVALUATION NOTE: OUTCOME SUMMARY: Pt remains very impulsive but more steady on her feet, NO restraints used during shift. VSS, turner discontinued, pt voiding frequently and small amount, MD notified.. MD paged and ordered melatonin 6mgfor restlessness/insomia. Will continue to monitor and assess and notify MD of any changes PLAN MOVING FORWARD: Continue with IV fluids, monitor VS, labs and mental status INDIVIDUALIZED FALL PREVENTION INTERVENTIONS: Patient-specific fall risk factors per assessment: [current deficits]: Pt very impulsive, IV tubing Assistance [level of assistance required for transfers and ambulation]: Standby assist Supervision [direct monitoring required during toileting and ADLs]: Standby assist Surveillance [continuous indirect monitoring]: Hourly rounding, call franco within reach, bed alrm Patient-specific fall prevention interventions for sensory deficits provided, if applicable: no CPG GOAL OUTCOME EVALUATION: Plan of Care - Daphne Peoples RN - 03/28/2016 2:00 PM EDT Problem: General Plan of Care Goal: Plan of Care Review Outcome: Ongoing (Interventions Implemented as Appropriate) 03/28/16 1356 Plan of Care Review Plan of Care Outcome Status ongoing (interventions implemented as appropriate) Progress improving Coping/Psychosocial Response Interventions Plan of Care Reviewed with patient OUTCOME EVALUATION NOTE: OUTCOME SUMMARY: Pt. Admitted from ISCU around 12PM. VSS. Pt alert although very confused, frequently repeating the same statements over and over. Not oriented to situation. Pt. Frequently attempting to get out of bed, very agitated and scared. MD notified and at bedside to assess, luisa baker applied for patient safety. Pt. Continued to be very agitated ripping out IV. Attempts made to reorient patient. Following this episode patient fell asleep and woke very calm, cooperative, and pleasant. IV fluids infusing as ordered. Will continue to monitor and notify MD of any acute events. PLAN MOVING FORWARD: - IV fluids - Monitor labs - Monitor mental status - Fall precautions INDIVIDUALIZED FALL PREVENTION INTERVENTIONS: Patient-specific fall risk factors per assessment: [current deficits]: Pt confused, impulsive, unable to communicate needs. Assistance [level of assistance required for transfers and ambulation]: 1 assist. Supervision [direct monitoring required during toileting and ADLs]: 1 assist. Surveillance [continuous indirect monitoring]: Masimo on. Bed alarm on. Purposeful rounding. Patient-specific fall prevention interventions for sensory deficits provided, if applicable: NA CPG GOAL OUTCOME EVALUATION: Goal: Fall Prevention-Safe Patient Handling Outcome: Ongoing (Interventions Implemented as Appropriate) 03/28/16 1206 03/28/16 1229 03/28/16 1356 Musculoskeletal Interventions Activity/Level of Assistance -- up in room;with 1-person assist -- Positioning -- HOB up 30-45 degrees -- Muscle Strengthening -- -- mobility in bed promoted;personal routines for BADL/IADL promoted Self-Care Promotion -- -- assistance provided to decrease frustration Izquierdo Fall Risk History of Falling -- 0 -- Secondary Diagnosis -- 15 -- Ambulatory Aids -- 0 -- Intravenous Therapy/Heparin/Saline Lock -- 20 -- Gait/Transferring -- 0 -- Mental Status -- 15 -- Score -- 50 -- Activity and Safety Assistive Device -- None -- OTHER Izquierdo Fall Risk -- High -- Safety Interventions Safety Precautions/Fall Reduction bed alarm -- -- Goal: Infection Control Outcome: Ongoing (Interventions Implemented as Appropriate) 03/28/16 1206 03/28/16 1229 Coping/Psychosocial Response Interventions Counseling -- understanding of situation facilitated;verbalization of feelings encouraged;personal strengths integrated Safety Interventions Isolation Precautions standard precautions maintained -- Infection Prevention -- bronchial hygiene promoted;environmental surveillance;hydration promoted;nutrition promoted;promote handwashing;rest/sleep promoted Problem: Skin Integrity Impairment, Risk/Actual (Adult, Obstetrics) Intervention: Pressure Reduction Devices 03/28/16 122 Skin Interventions Pressure Reduction Devices pressure-redistributing mattress utilized Intervention: Pressure Reduction Techniques 03/28/161228 Skin Interventions Pressure Reduction Techniques tubing/devices free from under/on patient Intervention: Skin/Mucous Membrane Protection 03/28/16 122 Skin Interventions Skin/Mucous Membrane Protection age appropriate skin cleansing provided;incontinence pad utilized;tubing/devices free from under/on patient Intervention: Wound Healing Promotion 03/28/16 122 Skin Interventions Wound Healing Promotion adequate fluids provided;adequate nutrition provided;sleep/rest promoted Goal: Identify Signs and Symptoms and Related Risk Factors Signs and symptoms and related risk factors are identified upon initiation of Human Response Clinical Practice Guideline (CPG) Outcome: Ongoing (Interventions Implemented as Appropriate) 03/28/16 135 Skin Integrity Impairment, Risk/Actual Personal Related Risk Factors (Skin Integrity Impairment, Risk/Actual) confusion/combative Treatment Related Related Risk Factors (Skin Integrity Impairment, Risk/Actual) invasive catheters;medication Goal: Skin Integrity/Wound Healing Patient will demonstrate the desired outcomes. Outcome: Ongoing (Interventions Implemented as Appropriate) 03/28/16 135 Skin Integrity Impairment, Risk/Actual (Adult, Obstetrics) Skin Integrity/Wound Healing making progress toward outcome Problem: Confusion, Acute (Adult) Intervention: Reality Orientation 03/28/161355 Cognitive/Perceptual/Neuro Interventions Reality Orientation calendar in view;clock in view;daily routine promoted Intervention: Sensory Stimulation Regulation 03/28/161355 Cognitive/Perceptual/Neuro Interventions Sensory Stimulation Regulation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 Potassium levels. ??For accurate Potassium quantif ication in these patients send serum separator tube (gold top) for subsequent determinations. ??Contact the Clinical Chemistry Laboratory if there are any qu estions. Chloride 114 (H) 98 - 107 mmol/L [facility] CO2 15 (L) 22 - 31 mmol/L [facility] Anion Gap 17 (H) 5 - 15 mmol/L [facility] Calcium 8.6 8.5 - 10.5 mg/dL [facility] Estimated GFR 14 (L) >=60 [facility] Comment: This estimated GFR (eGFR) [...] the following links into your internet browser. [email or web address] Specimen Anatomical Collection Method Collection Time Receive d Time (Source) Location / / Volume Laterality Blood specimen 03/29/2016 5:51 AM 016 6:04 (specimen) EDT AM EDT Resulting Agency Comment Spec In Lab Dhruv Varner MD CHEMISTRY ORDERABLES Performing Organization Address City/State/ZIP [place] [address] (ABNORMAL) Basic Metabolic Panel (non-fasting) (03/28/2016 9:50 PM EDT) athologist Signature Glucose Lvl 106 65 - 199 [facility] mg/dL [facility] Comment: Diabetes: >=200 mg/dL plus symp toms BUN 47 (H) 8 - 18 mg/dL [facility] Creatinine 4.34 (H) 0.70 - 1.20 mg/dL [facility] Comment: Please note that the pediatric reference intervals supplied above were not validated at [facility]. Results from pediatri c patients should be interpreted in conjunction to the patient's age, height and muscle mass. Sodium 142 135 - 145 mmol/L [facility] Potassium 3.2 (L) 3.5 - 5.0 mmol/L [facility] Comment: Please note: ??Patients with WBC >100,00 0 may have falsely elevated Potassium levels. ??For accurate Potassium quantif ication in these patients send serum separator tube (gold top) for subsequent determinations. ??Contact the Clinical Chemistry Laboratory if there are any qu estions. Chloride 109 (H) 98 - 107 mmol/L [facility] CO2 15 (L) 22 - 31 mmol/L [facility] Anion Gap 18 (H) 5 - 15 mmol/L [facility] Calcium 8.4 (L) 8.5 - 10.5 mg/dL [facility] Estimated GFR 11 (L) >=60 [facility] Comment: This estimated GFR (eGFR) [...] the following links into your internet browser. [email or web address] Specimen Anatomical Collection Method Collection Time Receive d Time (Source) Location / / Volume Laterality Blood specimen 03/28/2016 9:50 PM 016 (specimen) EDT 10:06 PM EDT Resulting Agency Comment Spec In Lab Dhruv Varner MD CHEMISTRY ORDERABLES Performing Organization Address City/State/ZIP [place] [address] (ABNORMAL) Basic Metabolic Panel (non-fasting) (03/28/2016 2:19 PM EDT) athologist Signature Glucose Lvl 78 65 - 199 [facility] mg/dL [facility] Comment: Diabetes: >=200 mg/dL plus symp toms BUN 48 (H) 8 - 18 mg/dL [facility] Creatinine 5.04 (H) 0.70 - 1.20 mg/dL [facility] Comment: Please note that the pediatric reference intervals supplied above were not validated at [facility]. Results from pediatri c patients should be interpreted in conjunction to the patient's age, height and muscle mass. Sodium 142 135 - 145 mmol/L [facility] Potassium 4.1 3.5 - 5.0 mmol/L [facility] Comment: Please note: ??Patients with WBC >100,00 0 may have falsely elevated Potassium levels. ??For accurate Potassium quantif ication in these patients send serum separator tube (gold top) for subsequent determinations. ??Contact the Clinical Chemistry Laboratory if there are any qu estions. Chloride 110 (H) 98 - 107 mmol/L [facility] CO2 14 (L) 22 - 31 mmol/L [facility] Anion Gap 18 (H) 5 - 15 mmol/L [facility] Calcium 8.6 8.5 - 10.5 mg/dL [facility] Comment: result rechecked-JAKY Estimated GFR 9 (L) >=60 [facility] Comment: This estimated GFR (eGFR) [...] the following links into your internet browser. [email or web address] Specimen Anatomical Collection Method Collection Time Receive d Time (Source) Location / / Volume Laterality Blood specimen 03/28/2016 2:19 PM 016 2:42 (specimen) EDT PM EDT Resulting Agency Comment Spec In Lab Dhruv Varner MD CHEMISTRY ORDERABLES Performing Organization Address City/State/[place] [address] POCT Glucose (03/28/2016 9:04 AM EDT) athologist Signature POC Glucose 77 65 - 199 [facility] mg/dL [facility] Comment: Supplemental ranges: <140 mg/dL before meals <180 mg/dL all other times of the day Specimen Anatomical Collection Method Collection Time Receive d Time (Source) Location / / Volume Laterality Blood specimen 03/28/2016 9:04 AM 016 9:04 (specimen) EDT AM EDT Dhruv Varner MD POINT OF CARE TEST ORDERABLE S Performing Organization Address City/State/[place] [address] (ABNORMAL) BLOOD GAS 2 VENOUS (03/28/2016 4:40 AM EDT) athologist Signature pH Louie 7.26 7.32 - [facility] (Critical) 7.42 [facility] Comment: Noted by director of instrumental music. pCO2 Louie 33 (L) 41 - 51 mmHg [facility] pO2 Louie 37 25 - 40 mmHg [facility] HCO3 Louie 14.3 mmol/L [facility] BE Louie -12.8 mmol/L [facility] Hgb Blood Gas 9.1 (L) 11.2 - 15.7 gm/dL [facility] O2HB Louie 62.0 % [facility] COHB Louie 0.8 % [facility] Comment: Nonsmokers: 0.5-1.5% COHB Smokers: Variable, but usually less than 10% Toxic: 20-30% COHB Lethal: Greater than 60% COHB METHB Louie 0.4 <=1.5 % [facility] Na Whole Blood 142 135 - 145 mmol/L [facility] K Whole Blood 3.3 (L) 3.5 - 5.0 mmol/L [facility] Comment: Please note: Patients with WBC >100,000 may have falsely elevated Potassium levels. Contact the Clinical Chemistry L aboratory if there are any questions. ICa Whole Blood 0.99 (L) 1.15 - 1.33 mmol/L [facility] Comment: Note: ??Total bilirubin higher than 20 m g/dL may lead to falsely low ionized calcium. CL Whole Blood 117 (H) 98 - 107 mmol/L [facility] Gluc Whole Bld 73 65 - 199 mg/dL [facility] Comment: Diabetes: >=200 mg/dL plus symp toms Lactate WB 1.1 0.5 - 2.2 mmol/L [facility] BGas Source Venous [facility] Temp Louie 37.0 Celsius [facility] Specimen Anatomical Collection Method Collection Time Receive d Time (Source) Location / / Volume Laterality Blood specimen 03/28/2016 4:40 AM 016 4:40 (specimen) EDT AM EDT Augie Obrien DO CHEMISTRY ORDERABLES Performing Organization Address City/[facility]/[place] [address] CK (03/28/2016 4:32 AM EDT) P athologist Signature CK, Total 67 0 - 160 [facility] unit/L [facility] Specimen Anatomical Collection Method Collection Time Receive d Time (Source) Location / / Volume Laterality Blood specimen Venous Draw / 03/28/2016 4:32 AM 2015 5:10 (specimen) Unknown EDT AM EDT Resulting Agency Comment Spec In Lab Riki Golden MD CHEMISTRY ORDERABLES Performing Organization Address City/[facility]/ZIP Code Phon e Number [address] Scan, Peripheral Blood (03/28/2016 4:32 AM EDT) Patholo gist Method Time Signature Plat Estimate Increased [facility] RBC Morphology Abnormal [facility] Microcytes 1-5 /HPF [facility] Hypochromia Slight [facility] Ovalocytes 1-5 /HPF [facility] Giant Platelets Less than 1 /HPF [facility] Specimen Anatomical Collection Method Collection Time Receive d Time (Source) Location / / Volume Laterality Blood specimen 03/28/2016 4:32 AM 016 5:05 (specimen) EDT AM EDT Resulting Agency Comment Spec In Lab Riki Golden MD HEMATOLOGY ORDERABLES Performing Organization Address City/[facility]/ZIP Code Phon e Number [address] Urine culture (03/28/2016 4:32 AM EDT) [facility] Method Time Signature Urine Culture No growth [facility] (Less than [facility] 1,000 [facility] cfu/ml). LABORATORY Specimen (Source) Anatomical Collection Method Collection Time Re ceived Time Location / / Volume Laterality Urine specimen 03/28/2016 4:32 03/28/2016 7:27 obtained via AM EDT AM EDT indwelling urinary catheter (specimen) Resulting Agency Comment Spec In Lab Riki Golden MD MICROBIOLOGY - GENERAL ORDER TANNA Performing Organization Address City/[facility]/ZIP Code Phon e Number [address] [place] Hold (03/28/2016 4:32 AM EDT) P athologist Signature [place] Hold Sample in [facility] LABORATORY Specimen Anatomical Collection Method Collection Time Receive d Time (Source) Location / / Volume Laterality Blood specimen Venous Draw / 03/28/2016 4:32 AM 2015 5:12 (specimen) Unknown EDT AM EDT Riki Golden MD CHEMISTRY ORDERABLES Performing Organization Address City/[facility]/ZIP Code Phon e Number [address] Blue Tube HOLD (03/28/2016 4:32 AM EDT) P athologist Signature Blue Hold Sample in [facility] LABORATORY Specimen Anatomical Collection Method Collection Time Receive d Time (Source) Location / / Volume Laterality Blood specimen Venous Draw / 03/28/2016 4:32 AM 2015 5:10 (specimen) Unknown EDT AM EDT Riki Golden MD HEMATOLOGY ORDERABLES Performing Organization Address City/[facility]/ZIP Code Phon e Number [address] TSH (03/28/2016 4:32 AM EDT) P athologist Signature TSH 1.77 0.27 - 4.20 [facility] mcIU/mL [facility]ORY Specimen Anatomical Collection Method Collection Time Receive d Time (Source) Location / / Volume Laterality Blood specimen Venous Draw / 03/28/2016 4:32 AM 2015 5:05 (specimen) Unknown EDT AM EDT Resulting Agency Comment Spec In Lab Riki Golden MD CHEMISTRY ORDERABLES Performing Organization Address City/[facility]/ZIP Code Phon e Number [address] (ABNORMAL) Osmolality (03/28/2016 4:32 AM EDT) P athologist Signature Osmolality 313 (H) 275 - 295 [facility] mOsm/kg [facility]ORY Specimen Anatomical Collection Method Collection Time Receive d Time (Source) Location / / Volume Laterality Blood specimen Venous Draw / 03/28/2016 4:32 AM 2015 5:05 (specimen) Unknown EDT AM EDT Resulting Agency Comment Spec In Lab Riki Golden MD CHEMISTRY ORDERABLES Performing Organization Address City/[facility]/ZIP Code Phon e Number [address] (ABNORMAL) Differential, Automated (03/28/2016 4:32 AM EDT) Patholo gist Method Time Signature Neutrophils % 69.8 % [facility] Neutr Abs (ANC) 9.82 (H) 1.50 - [facility] 6.30 [facility] x10(3)/[facility] LABORATORY Lymphocytes % 12.1 % [facility] Lymphocytes Abs 1.7 1.0 - 3.6 [facility] x10(3)/[facility] LABORATORY Monocytes % 8.2 % [facility] Monocyte Abs 1.2 (H) 0.2 - 1.0 [facility] x10(3)/[facility] LABORATORY Eosinophils % 8.3 % [facility] Eosinophils Abs 1.2 (H) 0.0 - 0.5 [facility] x10(3)/[facility] LABORATORY Basophils % 1.1 % [facility] Basophils Abs 0.2 0.0 - 0.2 [facility] x10(3)/[facility] LABORATORY Immature Gran % 0.50 % [facility] Comment: Immature granulocytes(IG's)percentage an d absolute count will include metamyelocytes, myelocytes, and promyelo cytes. Blood smears from CBCs yielding IG's will be scanned manually for concor dance. If this scan disagrees with the automated IG or if promyelocytes are not ed, a manual differential will be performed. Rosangela Gran Abs 0.07 (H) 0.00 - 0.05 x10(3)/[facility] LABORATORY Specimen Anatomical Collection Method Collection Time Receive d Time (Source) Location / / Volume Laterality Blood specimen 03/28/2016 4:32 AM 016 5:05 (specimen) EDT AM EDT Resulting Agency Comment Spec In Lab Riki Golden MD HEMATOLOGY ORDERABLES Performing Organization Address City/State/ZIP Code Phon e Number [place] [id number]OS[address] LAB[address] Drive (ABNORMAL) Hemogram (03/28/2016 4:32 AM EDT) Analysis Performed At Patho logist Time Signature WBC 14.1 (H) 4.0 - 10.0 [facility] x10(3)/[facility] LABORATORY RBC 3.50 (L) 3.93 - [facility] 5.22 [facility] x10(6)/[facility] LABORATORY Hemoglobin 8.9 (L) 11.2 - [facility] 15.7 gm/dL [facility]ORY Hematocrit 29.8 (L) 34.0 - [facility] 45.0 % [facility] LAB[facility]ATORY MCV 85.1 79.0 - [facility] 94.0 fL [facility]ORY MCH 25.4 (L) 26.6 - [place] 32.2 pg [facility]ORY MCHC 29.9 (L) 32.0 - [place] 36.5 gm/dL [facility] LAB[facility]ATORY Platelets 610 (H) 145 - 370 [facility] P[facility] x10(3)/[facility] LABORATORY RDWSD 58.9 (H) 35.0 - [place] [facility] 46.0 [facility] LABORATORY RDWCV 18.7 (H) 10.9 - [facility] PINKY 14.4 % [facility] LABORATORY MPV 12.4 (H) 9.0 - 12.0 [facility] nRBC % Auto 0.0 % [facility] nRBC Abs Auto 0.000 0.000 - [facility] PINKY 0.012 [facility] x10(3)/[facility] LABORATORY Specimen Anatomical Collection Method Collection Time Receive d Time (Source) Location / / Volume Laterality Blood specimen 03/28/2016 4:32 AM 016 5:05 (specimen) EDT AM EDT Resulting Agency Comment Spec In Lab Riki Golden MD HEMATOLOGY ORDERABLES Performing Organization Address City/State/ZIP [place] [address] Salicylate (03/28/2016 4:32 AM EDT) athologist Signature Salicylate Lvl <20 mg/L [facility] Comment: Result rechecked./llu Therapeutic Range: ??< 200 mg/L Arthritic Therapy: ??150-300 mg/L Toxic: ?> 350 mg/L ??Concentrations > 500 mg/L may be an i ndication for alkalinization of urine. Concentrations > 800 mg/L are often an i ndication for hemodialysis. Specimen Anatomical Collection Method Collection Time Receive d Time (Source) Location / / Volume Laterality Blood specimen 03/28/2016 4:32 AM 016 5:05 (specimen) EDT AM EDT Resulting Agency Comment Spec In Lab Riki Golden MD CHEMISTRY ORDERABLES Performing Organization Address City/[facility]/[place] [address] (ABNORMAL) Acetaminophen level (03/28/2016 4:32 AM EDT) P athologist Signature Acetamin Lvl <5 (L) 10 - 30 [facility] mg/L [facility] Comment: Result rechecked./llu Levels >150 mg/L at 4 hours post ingesti on or >75 mg/L at 8 hours post ingestion are often an indication for N- Acetylcysteine. Specimen Anatomical Collection Method Collection Time Receive d Time (Source) Location / / Volume Laterality Blood specimen 03/28/2016 4:32 AM 016 5:05 (specimen) EDT AM EDT Resulting Agency Comment Spec In Lab Riki Golden MD CHEMISTRY ORDERABLES Performing Organization Address City/State/[place] [address] Rapid Drug Screen, Urine (03/28/2016 4:32 AM EDT) Patholo gist Method Time Signature PREM Marijuana None None [facility] Metabolites Scr Detected Detected [facility] Comment: The marijuana metabolites screen detects the THC Metabolite (81-ggn-3-carboxy-? 9-THC) at concentrations >50 ng/mL. Qualitative Drug screens are reported as ? None Detected? or ? Presumptive Positive? as the results are not routinely confirmed by highly-specific methods. As with any screen occasional f alse positive results from cross-reacting substances can occur. Not for Medico-Legal Purposes. PREM Phencyclidine Scr None Detected None Detected [facility] Comment: The phencyclidine screen detects phencyc lidine at concentrations >25 ng/mL. Qualitative Drug screens are reported as ? None Detected? or ? Presumptive Positive? as the results are not routinely confirmed by highly-specific methods. As with any screen occasional f alse positive results from cross-reacting substances can occur. Not for Medico-Legal Purposes. PREM Cocaine Metabolites None Detected None Detected [facility] Comment: The cocaine [...] PREM Methamphetamines Scr None Detected None Detected [facility] Comment: The methamphetamine screen detects d-met hamphetamine at concentrations >500 ng/mL. Qualitative Drug screens are reported as ? None Detected? or ? Presumptive Positive? as the results are not routinely confirmed by highly-specific methods. As with any screen occasional f alse positive results from cross-reacting substances can occur. Not for Medico-Legal Purposes. PREM Opiates Scr None Detected None Detected [facility] Comment: The opiates screen detects [...] PREM Amphetamines Scr None Detected None Detected [facility] Comment: The amphetamine screen detects d-ampheta mine at concentrations >500 ng/mL. Qualitative Drug screens are reported as ? None Detected? or ? Presumptive Positive? as the results are not routinely confirmed by highly-specific methods. As with any screen occasional f alse positive results from cross-reacting substances can occur. Not for Medico-Legal Purposes. PREM Benzodiazepines Scr None Detected None Detected [facility] Comment: The benzodiazepines screen detects [...] PREM Tricyclics Scr None Detected None Detected [facility] Comment: The tricyclics screen detects [...] PREM Methadone Scr None Detected None Detected [facility] Comment: The methadone screen detects methadone a t concentrations >200 ng/mL. Qualitative Drug screens are reported as ? None Detected? or ? Presumptive Positive? as the results are not routinely confirmed by highly-specific methods. As with any screen occasional f alse positive results from cross-reacting substances can occur. Not for Medico-Legal Purposes. PREM Barbiturates Scr None Detected None Detected [facility] Comment: The barbiturates screen detects [...] PREM Oxycodone Scr None Detected None Detected [facility] Comment: The oxycodone screen detects [...] PREM Propoxyphene Scr None Detected None Detected [facility] Comment: The propoxyphene screen detects propoxyp hene at concentrations >300 ng/mL. Qualitative Drug screens are reported as ? None Detected? or ? Presumptive Positive? as the results are not routinely confirmed by highly-specific methods. As with any screen occasional f alse positive results from cross-reacting substances can occur. Not for Medico-Legal Purposes. PREM Buprenorphine Scr None Detected None Detected [facility] Comment: The buprenorphine screen detects bupreno rphine at concentrations >10 ng/mL. Qualitative Drug screens are reported as ? None Detected? or ? Presumptive Positive? as the results are not routinely confirmed by highly-specific methods. As with any screen occasional f alse positive results from cross-reacting substances can occur. Not for Medico-Legal Purposes. PREM Adulterants Screen None Detected None Detected [facility] Comment: No adulteration or dilution of this urin e sample was detected. All urine samples submitted for urine drugs of abu se analysis are tested for Creatinine and pH and for the presence of oxidants, nitrites, chromate and aldehydes (glutaraldehyde). Specimen Anatomical Collection Method Collection Time Receive d Time (Source) Location / / Volume Laterality Urine specimen 03/28/2016 4:32 AM 016 4:52 (specimen) EDT AM EDT Resulting Agency Comment Spec In Lab Riki Golden MD URINE ORDERABLES Performing Organization Address City/[facility]/ZIP Code Phon e Number [address] Creatinine, urine, random (03/28/2016 4:32 AM EDT) P athologist Signature U Creatinine 46 mg/dL [facility] Specimen Anatomical Collection Method Collection Time Receive d Time (Source) Location / / Volume Laterality Urine specimen 03/28/2016 4:32 AM 016 4:52 (specimen) EDT AM EDT Resulting Agency Comment Spec In Lab Riki Golden MD URINE ORDERABLES Performing Organization Address City/[facility]/[place] [address] Sodium, urine, random (03/28/2016 4:32 AM EDT) P athologist Signature U Sodium 45 mmol/L [facility] Specimen Anatomical Collection Method Collection Time Receive d Time (Source) Location / / Volume Laterality Urine specimen 03/28/2016 4:32 AM 016 4:52 (specimen) EDT AM EDT Resulting Agency Comment Spec In Lab Riki Golden MD URINE ORDERABLES Performing Organization Address City/[facility]/ZIP [facility] [place] [address] (ABNORMAL) Urinalysis with reflex Culture (03/28/2016 4:32 AM EDT) Patholo gist Method Time Signature Glucose UA Negative Negative [facility] mg/dL [facility] Protein UA Negative Negative [facility] mg/dL [facility] Bilirubin UA Negative Negative [facility] mg/dL [facility] Comment: Clinical correlation required for positi ve Urine Bilirubin results as false positive may occur with some drugs and d rug related products. If a false positive is suspected a serum total bili kelly should be considered if clinically indicated. Urobilinogen UA Normal Normal mg/dL [facility] pH UA 6.0 5.0 - 8.0 [facility] Blood UA Negative Negative mg/dL [facility] Ketones UA Negative Negative mg/dL [facility] Nitrite UA Negative Negative [facility] Leukocytes UA Trace (A) Negative [facility]ORY Appearance UA Hazy (A) Clear [facility] Spec [place] UA 1.006 1.002 - 1.030 [facility] Color UA Yellow Yellow [facility] RBC UA 1 0 - 4 /HPF [facility] WBC UA 9 (H) 0 - 5 /HPF [facility] Squam Epith UA 1 <=4 /HPF [facility] Culture Reflexed Yes [facility] Specimen (Source) Anatomical Collection Method Collection Time Re ceived Time Location / / Volume Laterality Urine specimen 03/28/2016 4:32 03/28/2016 4:52 obtained via AM EDT AM EDT indwelling urinary catheter (specimen) Resulting Agency Comment Spec In Lab Riki Golden MD URINE ORDERABLES Performing Organization Address City/State/[place] [address] (ABNORMAL) Phosphorus (03/28/2016 4:32 AM EDT) P athologist Signature Phosphorus 4.8 (H) 2.5 - 4.5 [facility] Specimen Anatomical Collection Method Collection Time Receive d Time (Source) Location / / Volume Laterality Blood specimen 03/28/2016 4:32 AM 016 5:05 (specimen) EDT AM EDT Resulting Agency Comment Spec In Lab Riki Golden MD CHEMISTRY ORDERABLES Performing Organization Address City/[facility]/ZIP Code Phon e Number [address] Magnesium (03/28/2016 4:32 AM EDT) athologist Signature Magnesium 0.82 0.69 - 1.07 [facility] mmol/L [facility] Specimen Anatomical Collection Method Collection Time Receive d Time (Source) Location / / Volume Laterality Blood specimen 03/28/2016 4:32 AM 016 5:05 (specimen) EDT AM EDT Resulting Agency Comment Spec In Lab Riki Golden MD CHEMISTRY ORDERABLES Performing Organization Address City/[facility]/ZIP Code Phon e Number [address] (ABNORMAL) Comprehensive metabolic panel (non-fasting) (03/28/2016 4:32 AM EDT) athologist Signature Glucose Lvl 84 65 - 199 [facility] Comment: Diabetes: >=200 mg/dL plus symp toms BUN 46 (H) 8 - 18 mg/dL [facility] Creatinine 5.09 (H) 0.70 - 1.20 mg/dL [facility] Comment: Please note that the pediatric reference intervals supplied above were not validated at [facility]. Results from pediatri c patients should be interpreted in conjunction to the patient's age, height and muscle mass. Sodium 144 135 - 145 mmol/L [facility] Potassium 3.9 3.5 - 5.0 mmol/L [facility] Comment: Please note: ??Patients with WBC >100,00 0 may have falsely elevated Potassium levels. ??For accurate Potassium quantif ication in these patients send serum separator tube (gold top) for subsequent determinations. ??Contact the Clinical Chemistry Laboratory if there are any qu estions. Chloride 110 (H) 98 - 107 mmol/L [facility] CO2 15 (L) 22 - 31 mmol/L [facility] Anion Gap 19 (H) 5 - 15 mmol/L [facility] Calcium 7.6 (L) 8.5 - 10.5 mg/dL [facility] Total Protein 5.9 (L) 6.1 - 8.0 gm/dL [facility] Albumin 3.2 3.2 - 5.2 gm/dL [facility] AST 16 0 - 30 unit/L [facility] ALT 10 0 - 30 unit/L [facility] Alk Phos 90 40 - 104 unit/L [facility] Total Bilirubin 0.2 0.2 - 1.3 mg/dL [facility] Bili, Direct 0.1 0.0 - 0.3 mg/dL [facility] Estimated GFR 9 (L) >=60 [facility] Comment: This estimated GFR (eGFR) [...] the following links into your internet browser. [email or web address] Specimen Anatomical Collection Method Collection Time Receive d Time (Source) Location / / Volume Laterality Blood specimen 03/28/2016 4:32 AM 016 5:05 (specimen) EDT AM EDT Resulting Agency Comment Spec In Lab Riki Golden MD CHEMISTRY ORDERABLES Performing Organization Address City/State/ZIP Code Phon [place] [address] EKG 12 Lead (03/28/2016 4:26 AM EDT) [employer] Method Time Signature Ventricular rate 95 BPM MUSE SYSTEM Atrial Rate 95 BPM MUSE SYSTEM P-R Interval 138 ms MUSE SYSTEM QRS Duration 84 ms MUSE SYSTEM Q-T Interval 366 ms MUSE SYSTEM QTC Calculated 459 ms MUSE SYSTEM (Bezet) Calculated P [place] 58 degrees MUSE SYSTEM Calculated R [place] 44 degrees MUSE SYSTEM Calculated T [place] 39 degrees MUSE SYSTEM INTERPRETATION Normal sinus rhythm MUSE SYSTEM Normal ECG No previous ECGs available Confirmed by MD Omer Douglas ([id number]) on 03/28/2016 5:30:53 PM Specimen Anatomical Collection Method Collection Time Receive d Time (Source) Location / / Volume Laterality 03/28/2016 4:26 AM 6 5:30 EDT PM EDT Riki Golden MD ECG ORDERABLES Performing Organization Address City/State/ZIP Code Phon e Number MUSE SYSTEM POCT urine (03/28/2016) [facility] Method Time Signature POC Urine HCG Negative Negative - Negative POC Control Internal Controls Acceptable Specimen (Source) Anatomical Location Collection Method / Collectio n Time Received Time / Laterality Volume 03/28/2016 Augie Obrien DO POINT OF CARE TEST ORDERABLE S documented in this encounter Visit Diagnoses Diagnosis Altered mental status, unspecified alter ed mental status type - Primary documented in this encounter Administered Medications Inactive Administered Medications - up to 3 most recent administrations Medication Order MAR Action Action Date Dose Rate Site acetaminophen (TYLENOL) tablet 650 Given 03/31/2016 4:19 PM EDT 650 mg mg 650 mg, Oral, EVERY 6 HOURS PRN, Starting on 03/28/16 at 0911, Until 04/01/16 at 1606, Pain, Fever, Administer for temperature greater than or equal to 38.2 degrees celsius. Maximum daily dose of acetaminophen from all sources not to exceed 4,000 mg., Routine Given 03/29/2016 6:08 AM EDT 650 mg amLODIPine (NORVASC) tablet 5 mg Given 04/01/2016 9:11 AM EDT 5 mg 5 mg, Oral, DAILY, First dose on Wed03/31/16 at 1200, Until Discontinued, Routine Given 03/31/2016 11:21 AM EDT 5 mg clonazePAM (KlonoPIN) tablet 1 mg Given 04/01/2016 9:11 AM EDT 1 mg 1 mg, Oral, 2 TIMES DAILY, First dose on Wed03/31/16 at 1230, Until Discontinued, Routine Given 03/31/2016 9:05 PM EDT 1 mg Given 03/31/2016 12:37 PM EDT 1 mg folic acid (FOLVITE) tablet 1,000 mcg Given 04/01/2016 9:11 AM EDT 1,000 mcg 1,000 mcg (1 mg), Oral, DAILY, First dose on Wed03/28/16 at 0930, Until Discontinued, Routine Given 03/31/2016 8:05 AM EDT 1,000 mcg Given 03/30/2016 8:00 AM EDT 1,000 mcg heparin (porcine) subcutaneous injection Given 016 9:32 PM EDT 5,000 Units 5,000 Units 5,000 Units, Subcutaneous, EVERY 8 HOURS SCHEDULED, First dose on Wed03/28/16 at 0930, Until Discontinued, Routine Given 03/30/2016 5:10 AM EDT 5,000 Units Given 03/29/2016 9:14 PM EDT 5,000 Units labetalol (NORMODYNE) tablet 100 mg Given 03/30/2016 9:32 PM EDT 100 mg 100 mg, Oral, ONCE, 1 dose, On Wed03/30/16 at 2130, STAT lactated ringers 1,000 mL IV bolus Given 03/28/2016 5:50 AM EDT Intravenous, ONCE, 1 dose, On Wed03/28/16 at 0537 lactated ringers infusion New Bag 03/28/2016 9:48 AM EDT 200 mL/hr 200 mL/hr 200 mL/hr, Intravenous, CONTINUOUS, Starting on 03/28/16 at 0945, Until 03/28/16 at 1944 lactated ringers infusion New Bag 03/29/2016 5:46 AM EDT 200 mL/hr 200 mL/hr 200 mL/hr, Intravenous, CONTINUOUS, Starting on 03/28/16 at 2000, Until 03/29/16 at 0559 New Bag 03/28/2016 11:30 PM EDT 200 mL/hr 200 mL/hr New Bag 03/28/2016 9:12 PM EDT 200 mL/hr 200 mL/hr lactated ringers infusion Continued Bag 03/29/2016 6:45 AM EDT 200 mL/hr 200 mL/hr 200 mL/hr, Intravenous, CONTINUOUS, Starting on Wed03/29/16 at 0645, Until Wed03/29/16 at 0743 lactated ringers infusion New Bag 03/29/2016 8:25 AM EDT 200 mL/hr 200 mL/hr 200 mL/hr, Intravenous, CONTINUOUS, Starting on Wed03/29/16 at 0800, Until Wed03/29/16 at 1101 lamoTRIgine (LaMICtal) tablet 25 mg Given 04/01/2016 9:11 AM EDT 25 mg 25 mg, Oral, DAILY, First dose on Wed03/31/16 at 1800, Until Discontinued, Routine Given 03/31/2016 5:48 PM EDT 25 mg melatonin tablet 3 mg Given 03/30/2016 9:32 PM EDT 3 mg 3 mg, Oral, NIGHTLY PRN, Starting on Wed03/30/16 at 2040, Until Wed04/01/16 at 1606, insomnia, Routine melatonin tablet 6 mg Given 03/29/2016 3:46 AM EDT 6 mg 6 mg, Oral, ONCE, 1 dose, On Wed03/29/16 at 0400, Routine multivitamin (THERAGRAN) tablet 1 tablet Given 04/01/2016 9:11 AM EDT 1 tablet 1 tablet, Oral, DAILY, First dose on Wed03/28/16 at 0930, Until Discontinued Given 03/31/2016 8:05 AM EDT 1 tablet Given 03/30/2016 8:00 AM EDT 1 tablet OLANZapine (ZyPREXA) tablet 10 mg Given 03/31/2016 9:39 PM EDT 10 mg 10 mg, Oral, NIGHTLY, First dose (after last modification) on Wed03/31/16 at 2100, Until Discontinued, Routine OLANZapine (ZyPREXA) tablet 10 mg Given 03/30/2016 2:24 PM EDT 10 mg 10 mg, Oral, ONCE, 1 dose, On Wed03/30/16 at 1500, Routine potassium chloride (K-DUR/KLOR-CON) extended Given 12:30 AM EDT 30 mEq release tablet 30 mEq 30 mEq, Oral, ONCE, 1 dose, On Wed03/29/16 at 0015, Routine potassium chloride (K-DUR/KLOR-CON) extended Given 3:39 PM EDT 40 mEq release tablet 40 mEq 40 mEq, Oral, EVERY 6 HOURS, 2 doses, First dose (after last modification) on Wed04/01/16 at 0945, Last dose on Wed04/01/16 at 1545, Routine Given 04/01/2016 9:44 AM EDT 40 mEq riboflavin (vitamin B2) tablet 100 mg Given 04/01/2016 9:11 AM EDT 100 mg 100 mg, Oral, DAILY, First dose on Wed03/28/16 at 1100, Until Discontinued, Routine Given 03/31/2016 8:05 AM EDT 100 mg Given 03/30/2016 8:00 AM EDT 100 mg sodium chloride 0.9 % flush 5 mL Given 04/01/2016 9:15 AM EDT 5 mLs 5 mL, Intravenous, 2 TIMES DAILY, First dose on Wed03/28/16 at 0930, Until Discontinued, Routine Given 03/31/2016 9:06 PM EDT 10 mLs Given 03/31/2016 8:06 AM EDT 5 mLs sucralfate (CARAFATE) tablet 1 g Given 04/01/2016 1:47 PM EDT 1 g 1 g, Oral, 4 TIMES DAILY, First dose on Wed03/28/16 at 1300, Until Discontinued, Routine Given 04/01/2016 9:11 AM EDT 1 g Given 03/31/2016 9:05 PM EDT 1 g documented in this encounter Active and Recently Administered Medications Times are shown in EDT. Scheduled Medication Order 03/30/2016 03/31/2016 04/01/2016 amLODIPine (NORVASC) tablet 5 mg 1121 (G iven - Provider: Nevaeh Raymond, UCHE) 0911 (Given - Provider: Lizeth nova RN) 5 mg, Oral, DAILY, First dose on 03/16 at 1200, Until Discontinued, Routine clonazePAM (KlonoPIN) tablet 1 mg 1237 ( Given - Provider: Nevaeh Raymond, RN)2105 (Given - Provider: Zoe Porter RN) 0911 (Given - Provider: Lizeth Simon RN) 1 mg, Oral, 2 TIMES DAILY, First dose on Wed03/31/16 at 1230, Until Discontinued, Routine folic acid (FOLVITE) tablet 1,000 mcg 0800 (Given - Pr ovider: Nevaeh Raymond RN) 08 (Given - Provider: Nevaeh Raymond RN) 09 (Nita cabral - Provider: Lizeth Simon RN) 1,000 mcg (1 mg), Oral, DAILY, First dos e on Wed03/28/16 at 0930, Until Discontinued, Routine heparin (porcine) subcutaneous injection 5,000 Units ( CANCELED) 0510 (Given - Provider: Lauryn Ramirez RN)1400 (Not Given - Provider: Nevaeh Raymond RN - Reason: Order parameters not met - Comment: ambulatory)2131 (Given - Provider: Lauryn Ramirez RN) 5,000 Units, Subcutaneous, EVERY 8 HOURS SCHEDULED, First dose on Wed03/28/16 at 0930, Until Discontinued, Routine labetalol (NORMODYNE) tablet 100 mg (COMPLETED) 2131 ( Given - Provider: Lauryn Ramirez RN) 100 mg, Oral, ONCE, 1 dose, Wed03/30/16 at 2130, STAT lamoTRIgine (LaMICtal) tablet 25 mg 174 (Given - Provider: Nevaeh Raymond RN) 910 (Given - Provider: Lizeth nova RN) 25 mg, Oral, DAILY, First dose on Wed at 1800, Until Discontinued, Routine multivitamin (THERAGRAN) tablet 1 tablet 0800 (Given - Provider: Nevaeh Raymond RN) 08 (Given - Provider: Nevaeh Raymond RN) 09 (G iven - Provider: Lizeth Simon RN) 1 tablet, Oral, DAILY, First dose on Wed03/28/16 at 0930, Until Discontinued, Routine OLANZapine (ZyPREXA) tablet 10 mg 2138 (Given - Provider: Zoe Porter RN) 10 mg, Oral, NIGHTLY, First dose on Wed03/31/16 at 2100, Until Discontinued, Routine OLANZapine (ZyPREXA) tablet 10 mg (COMPLETED) 142 (Gi louie - Provider: Nevaeh Raymond RN) 10 mg, Oral, ONCE, 1 dose, Wed03/30/16 at 1500, Routine potassium chloride (K-DUR/KLOR-CON) extended release tablet 40 mEq (COMPLETED) 0944 (Given - Provider: Griffin Danielle, UCHE)1539 (Given - Provider: Griffin Danielle RN) 40 mEq, Oral, EVERY 6 HOURS, 2 doses, Fi rst dose on Wed04/01/16 at 0945, Last dose on Wed04/01/16 at 1545, Routine riboflavin (vitamin B2) tablet 100 mg 0800 (Given - Pr ovider: Nevaeh Raymond RN) 0805 (Given - Provider: Nevaeh Raymond RN) 0911 (G iven - Provider: Lizeth Simon, UCHE) 100 mg, Oral, DAILY, First dose on Sat at 1100, Until Discontinued, Routine sodium chloride 0.9 % flush 5 mL 0800 (Given - Provide r: Nevaeh Raymond RN)2132 (Given - Provider: Lauryn Ramirez RN) 0806 (Given - Provider: Nevaeh Raymond RN)2106 (Given - Provider: Zoe Porter RN) 0915 (Given - Provider: Lizeth Simon RN) 5 mL, Intravenous, 2 TIMES DAILY, First dose on 03/28/16 at 0930, Until Discontinued, Routine sucralfate (CARAFATE) tablet 1 g 0800 (Given - Provide r: Nveaeh Raymond RN)1424 (Given - Provider: Nevaeh Raymond RN)1708 (Given - Provider: Nevaeh Raymond RN)2132 (Given - Provider: Lauryn Ramirez RN) 0900 (Given - Provider: Nevaeh Raymond RN)1235 (Given - Provider: Nevaeh Raymond, UCHE)1619 (Given - Provider: Nevaeh Raymond, UCHE)2105 (Given - Provider: Zoe Porter RN) 0911 (Given - Provider: Lizeth nova RN)1347 (Given - Provider: Griffin Danielle RN) 1 g, Oral, 4 TIMES DAILY, First dose on 03/28/16 at 1300, Until Discontinued, Routine PRN Medication Order 03/30/2016 03/31/2016 04/01/2016 acetaminophen (TYLENOL) tablet 650 mg 16 19 (Given - Provider: Nevaeh Raymond, RN) 650 mg, Oral, EVERY 6 HOURS PRN, Startin g 03/28/16 at 0911, Until Wed04/01/16 at 1606, Pain, Fever, Administer for temperature greater than or equal to 38.2 degrees celsius. Maximum daily dose of [place] taminophen from all sources not to exceed 4,000 mg., Routine docusate sodium (COLACE) capsule 100 mg 100 mg, Oral, 2 TIMES DAILY PRN, Startin g 03/28/16 at 0911, Until Wed04/01/16 at 1606, Constipation, Routine lidocaine (XYLOCAINE) 10 mg/mL (1 %) injection 3 mg 3 mg (0.3 mL), Subcutaneous, ONCE PRN, 1 dose, Starting 03/28/16 at 0911, Until Wed04/01/16 at 1606, for discomfort with PIV insertion, Routine melatonin tablet 3 mg 2131 (Given - Provider: Lauryn Ramirez RN ) 3 mg, Oral, NIGHTLY PRN, Starting Mon at 2040, Until Wed04/01/16 at 1606, insomnia, Routine sodium chloride 0.9 % flush 5-20 mL 5-20 mL, Intravenous, EVERY 1 MIN PRN, S tarting 03/28/16 at 0911, Until Wed04/01/16 at 1606, flush, Flush pertains to all indwelling lines. Flush per protocol found in the job aid using the link provided on this medication record., Routine documented in this encounter Care Teams Clothing Manager Relationship Specialty Start Date End Date Kole Williamson MD PCP - General 10/21/13 04/02/[address] [place] [address] [place] [address] documented as of this encounter
--- OUTSIDE RECORDS SUMMARY | 2022-03-18 11:36 | XMS_ITS | Encounter Summary ---
:1970 Author Organization [facility] [address] Care Team Providers Name Role Phone Tarsha Williamson MD Primary Care Provider Encounter Details Date Type Department Care Team Description 11/12/2015 Orders Only Neurology at [facility] Kevin-John, Headache(784.0) [facility] [place] [id number] [facility] [phone] NEUROLOGY DEPT [place], [place] [address] (Wo rk) Social History Tobacco [...] Cameron Alves MD [facility] [place], [place] [address] (Wo rk) documented as of this encounter Visit Diagnoses Diagnosis Headache(784.0) Headache documented in this encounter Care Teams Retail Loss Prevention Investigator Relationship Specialty Start Date End Date Tarsha Williamson MD PCP - General 10/21/13 04/02/[address] [place] [address] [address] [place] [id number] documented as of this encounter
--- OUTSIDE RECORDS SUMMARY | 2022-03-18 11:36 | XMS_ITS | Encounter Summary ---
:1970 Author Organization [facility] [place] [address] Care Team Providers Name Role Phone Tarsha Williamson MD Primary Care Provider Reason for Visit Reason Comments GI Problem Consultation (Routine) - Closed Specialty Diagnoses / Procedures Referred By Contact Refer red To Contact Gastroenterology Diagnoses Gastric Ulcer; duodinal ulcer Tarsha Williamson, [facility] [place] Gastro 4l Procedures ? [address] [address] [place] [address] Fax: Referral ID Status Reason Start Date Expiration Date Visits Requ ested Visits Authorized [id number] Closed 10/07/2015 10/06/2016 1 1 Encounter Details Date Type Department Care Team Description 02/03/2016 Office Visit [place] [facility] [place] O'Chyna, Tracia, Diarrhea; [facility] D marye [place] [address] [facility] [phone] GASTROENTEROLOGY DEPT. [place], [place] [address] (Wo rk) Social History Tobacco [...] Sign Reading Time Taken Comments Blood Pressure 108/80 02/03/2016 11:52 AM EDT Pulse 136 02/03/2016 11:52 AM EDT Temperature - - Respiratory Rate - - Oxygen Saturation - - Inhaled Oxygen Concentration - - Weight 62.1 kg (137 lb) 02/03/2016 11:52 AM EDT Height 157.5 cm (5' 2) 02/03/2016 11:52 AM EDT Body Mass Index 25.06 02/03/2016 11:52 AM EDT documented in this encounter Progress Notes Rafa Ocampo, RN - 02/03/2016 12:23 PM EDT Section of Gastroenterology and Hepatology [address] [place] [address] .Lisseth Boone : 1970 Patient is here for further evaluation of gastrointestinal symptoms at the request of Tarsha Williamson MD. HPI: Patient has been experiencing her sx since last fall. No changes at time of onset. Ongoing elevated wbc, IgE, eosinophils and lfts. Wbc has been as high as 58-70. Lower sx began as diarrhea, lower abdominal cramping. Would have several stools through the day and into the night. Would have cramping, urgency. Fecal incontinence. Some specks of blood in stool due to anal irritation. Responded to lomotil but stopped due to constipation. Now not eating, as she is not feeling well. Since not eating, not having as much stool. Negative stool studies. Was 152 pounds about three weeks ago, now is 137 pounds. 07/2015 normal colonoscopy, but no bx obtained. Having chest fullness. Shoulders ache. Constant nausea. Nausea with eating, nausea with smelling food. Dysphagia to solids and liquids. Remaining with softer foods. zegerid 20mg bid. Began early 2015. Hx of gastric ulcers since her 20s. Upper endoscopy 07/2015; duodenitis and gastritis. Long hx of Excedrin use. Having episodes of burning up. ?hot flashes versus fever. There does not seem to be a connection with sx and medications and diet. September 2015 normal abd/pelvic CT. 07/2015 normal abdominal u/s. History Social History ??? Marital status: Spouse name: N/A ??? Number of children: N/A ??? Years of education: N/A Occupational History ??? Not on file. Social History Main Topics ??? Smoking status: Former Smoker Packs/day: 0.00 Years: 15.00 Types: Cigarettes Quit date: 12/08/2002 ??? Smokeless tobacco: Never Used ??? Alcohol use: No ??? Drug use: No ??? Sexual activity: Not on file Comment: Deferred Other Topics Concern ??? Not on file Social History Narrative Medical History: cervical cancer, migraines, Surgical History: ovarian cyst removal; cholecystectomy 2009 Family History: great grandfather: gastric ulcers No Known Allergies Current Outpatient Prescriptions: ??? rizatriptan (MAXALT) 5 mg Tablet, Take 5 mg by mouth as needed for Migraine. May repeat in 2 hours if needed, Disp: , Rfl: ??? multivitamin (THERAGRAN) Tablet, Take 1 tablet by mouth daily., Disp: , Rfl: ??? omeprazole-sodium bicarbonate (ZEGERID) 20-1,680 mg Packet, Take 20 mg by mouth 2 times daily., Disp: , Rfl: ??? ondansetron (ZOFRAN) 4 mg Tablet, Take 1 tablet by mouth every 8 hours as needed for Nausea for up to 5 doses., Disp: 5 tablet, Rfl: 0 ??? topiramate (TOPAMAX) 100 mg Tablet, Take 1 tablet by mouth nightly., Disp: 30 tablet, Rfl: 11 ??? riboflavin, vitamin B2, 100 mg Tablet, Take 1 tablet by mouth daily., Disp: 30 tablet, Rfl: 11 ??? chlorproMAZINE (THORAZINE) 50 mg Tablet, Take 1 tablet by mouth daily as needed (take in the onset of a migraine with benadryl) for up to 1 dose., Disp: 30 tablet, Rfl: 11 ??? diphenhydrAMINE (BENADRYL) 25 mg Capsule, Take 1 capsule by mouth every 6 hours as needed for Itching (take in the onset of migraine with thorazine)., Disp: 30 capsule, Rfl: 0 ??? clonazePAM (KLONOPIN) 1 mg tablet, Take 1 tablet by mouth 2 times daily., Disp: 60 tablet, Rfl: ??? folic acid (FOLVITE) 1 mg tablet, Take 1 tablet by mouth daily., Disp: 30 tablet, Rfl: 12 ??? DULoxetine (CYMBALTA) 60 mg capsule, Take 60 mg by mouth 2 times daily., Disp: , Rfl: Review of Systems - Negative except General: Cardiac: Resp: GI: see above : MS: Neuro: Skin: Psyche: Sleep: Endo: Physical Exam: Soft, tender in upper abdomen, no mass, organomegaly Impression: 1. Gastritis/duodenitis: zegerid 20mg bid; upper endoscopy. 2. Nausea: zofran 8mg SL tid prn; scopolamine patch. May need to consider small bowel evaluation. 3. Diarrhea/abdominal cramping: schedule colonoscopy; obtain colonic bx ?microscopic colitis. 4. Obtain cbc, cmp, tsh, ttg, anemia panel. Obtain CT from [facility]. If ongoing elevated lfts consider u/s. 5. Gif in 6-8 weeks; f/u with pt once results available. I spent a total of 54 minutes face to face with this patient; 39 minutes were spent counseling the patient in the medical problems described above. Sincerely, Rafa Ocampo NP Section of Gastroenterology and Hepatology documented in this encounter Plan of Treatment Upcoming Encounters Date Type Specialty Care Team Description 04/14/2022 Office Visit Neurology Cameron Alves MD [facility] [address] [place], [place] [address] (Wo rk) Scheduled Orders Name Type Priority Associated Diagnoses Order S chedule UPPER GI ENDOSCOPY Procedures Routine Gastritis Ordered: 02/03/2016 COLONOSCOPY Procedures Routine Diarrhea Ordered: 2015 documented as of this encounter Procedures Procedure Name Priority Date/Time Associated Comments Diagnosis HEMOGRAM Routine 02/03/2016 1:27 PM Diarrhea Results f or this EDT procedure are i n the results section. DIFFERENTIAL, Routine 02/03/2016 1:27 PM Diarrhea Results for this AUTOMATED EDT procedure are i n the results section. IRON AND TIBC Routine 02/03/2016 1:27 PM Diarrhea Results for this EDT Gastritis procedure are i n the results section. TISSUE Routine 02/03/2016 1:27 PM Diarrhea Results f or this TRANSGLUTAMINASE, IGA EDT proced ure are in the results section. CBC (WITH DIFF) Routine 02/03/2016 1:27 PM Diarrhea EDT TSH Routine 02/03/2016 1:27 PM Diarrhea Results f or this EDT procedure are i n the results section. FERRITIN Routine 02/03/2016 1:27 PM Gastritis Results f or this EDT procedure are i n the results section. VITAMIN B12 Routine 02/03/2016 1:27 PM Gastritis Results f or this EDT procedure are i n the results section. COMPREHENSIVE Routine 02/03/2016 1:27 PM Diarrhea Results for this METABOLIC PANEL EDT procedure ar e in (NON-FASTING) the results section. documented in this encounter Results (ABNORMAL) Differential, Automated (02/03/2016 1:27 PM EDT) [facility] gist Method Time Signature Neutrophils % 39.0 % [facility] Neutr Abs (ANC) 2.63 1.50 - [facility] 6.30 [facility] x10(3)/[facility] LABORATORY Lymphocytes % 24.6 % [facility] Lymphocytes Abs 1.7 1.0 - 3.6 [facility] x10(3)/[facility] LABORATORY Monocytes % 7.1 % [facility] Monocyte Abs 0.5 0.2 - 1.0 [facility] x10(3)/[facility] LABORATORY Eosinophils % 26.8 % [facility] Eosinophils Abs 1.8 (H) 0.0 - 0.5 [facility] x10(3)/[facility] LABORATORY Basophils % 2.4 % [facility] Basophils Abs 0.2 0.0 - 0.2 [facility] x10(3)/[facility] LABORATORY Immature Gran % 0.10 % [facility] Comment: Immature granulocytes(IG's)percentage an d absolute count will include metamyelocytes, myelocytes, and promyelo cytes. Blood smears from CBCs yielding IG's will be scanned manually for concor dance. If this scan disagrees with the automated IG or if promyelocytes are not ed, a manual differential will be performed. Rosangela Gran Abs 0.01 0.00 - 0.05 x10(3)/[facility] LABOR[facility] Specimen Anatomical Collection Method Collection Time Receive d Time (Source) Location / / Volume Laterality Blood specimen 02/03/2016 1:27 PM 016 1:36 (specimen) EDT PM EDT Resulting Agency Comment Spec In Lab Jose De Jesus Martinez MD HEMATOLOGY ORDERABLES Performing Organization Address City/State/[place] [address] (ABNORMAL) Hemogram (02/03/2016 1:27 PM EDT) P athologist Signature WBC 6.8 4.0 - 10.0 [facility] x10(3)/[facility] LABORATORY RBC 4.42 3.93 - [facility] 5.22 [facility] x10(6)/[facility] LABORATORY Hemoglobin 11.1 (L) 11.2 - [facility] 15.7 gm/dL [facility] Hematocrit 34.9 34.0 - [facility] % [facility] MCV 79.0 79.0 - [facility] 94.0 [facility] LABORATORY MCH 25.1 (L) 26.6 - [facility] 32.2 pg [facility] MCHC 31.8 (L) 32.0 - [facility] 36.5 gm/dL [facility] Platelets 724 (H) 145 - 370 [facility] x10(3)/[facility] LABORATORY RDWSD 56.6 (H) 35.0 - [facility] 46.0 [facility] LABORATORY RDWCV 19.7 (H) 10.9 - [facility] PINKY 14.4 % [facility] LABORATORY MPV 11.8 9.0 - 12.0 [facility] LABORATORY Specimen Anatomical Collection Method Collection Time Receive d Time (Source) Location / / Volume Laterality Blood specimen 02/03/2016 1:27 PM 016 1:36 (specimen) EDT PM EDT Resulting Agency Comment Spec In Lab Jose De Jesus Martinez MD HEMATOLOGY ORDERABLES Performing Organization Address City/State/ZIP Code Phon e Number [address] Vitamin B12 (02/03/2016 1:27 PM EDT) athologist Signature Vitamin B-12 566 207 - 974 [facility] pg/mL [facility] Specimen Anatomical Collection Method Collection Time Receive d Time (Source) Location / / Volume Laterality Blood specimen 02/03/2016 1:27 PM 016 1:36 (specimen) EDT PM EDT Resulting Agency Comment Spec In Lab Jose De Jesus Martinez MD CHEMISTRY ORDERABLES Performing Organization Address City/[facility] [place] [address] (ABNORMAL) Ferritin (02/03/2016 1:27 PM EDT) athologist Signature Ferritin 10 (L) 15 - 150 [facility] ng/mL [facility] Comment: Pediatric reference ranges not verified at [facility] [place], interpret with caution. Reference ranges for females greater jarvis n 50 years of age approach values for men, i.e., 30-400 ng/mL. Specimen Anatomical Collection Method Collection Time Receive d Time (Source) Location / / Volume Laterality Blood specimen 02/03/2016 1:27 PM 016 1:36 (specimen) EDT PM EDT Resulting Agency Comment Spec In Lab Jose De Jesus Martinez MD CHEMISTRY ORDERABLES Performing Organization Address City/[facility] [place] [address] (ABNORMAL) Iron and TIBC (02/03/2016 1:27 PM EDT) athologist Signature Iron 45 30 - 150 [facility] mcg/dL [facility] TIBC 327 250 - 450 [place] mcg/dL [facility] Iron Saturation 14 (L) 20 - 50 % [facility] Specimen Anatomical Collection Method Collection Time Receive d Time (Source) Location / / Volume Laterality Blood specimen 02/03/2016 1:27 PM 016 1:36 (specimen) EDT PM EDT Resulting Agency Comment Spec In Lab Jose De Jesus Martinez MD CHEMISTRY ORDERABLES Performing Organization Address City/State/ZIP Code Phon e Number [address] Tissue transglutaminase, IgA (02/03/2016 1:27 PM EDT) athologist [facility] TTG IgA Ab 0.4 0.1 - 10.0 [facility] u/ml [facility] Comment: New methodology as of 12-18-2014 Negative = <7 U/mL Equivocal = 7-10 U/mL Positive = >10 U/mL Specimen Anatomical Collection Method Collection Time Receive d Time (Source) Location / / Volume Laterality Blood specimen 02/03/2016 1:27 PM 016 8:09 (specimen) EDT AM EDT Resulting Agency Comment Spec In Lab Jose De Jesus Martinez MD IMMUNOLOGY ORDERABLES Performing Organization Address City/State/ZIP Code Phon e Number [address] TSH (02/03/2016 1:27 PM EDT) athologist [facility] TSH 1.18 0.27 - 4.20 [facility] mcIU/mL [facility] Specimen Anatomical Collection Method Collection Time Receive d Time (Source) Location / / Volume Laterality Blood specimen 02/03/2016 1:27 PM 016 1:36 (specimen) EDT PM EDT Resulting Agency Comment Spec In Lab Jose De Jesus Martinez MD CHEMISTRY ORDERABLES Performing Organization Address City/State/[place] [address] (ABNORMAL) Comprehensive metabolic panel (non-fasting) (02/03/2016 1:27 PM EDT) athologist [facility] Glucose Lvl 93 65 - 199 [facility] mg/dL [facility] Comment: Diabetes: >=200 mg/dL plus symp toms BUN 13 8 - 18 mg/dL [facility] Creatinine 1.22 (H) 0.70 - 1.20 mg/dL [facility] Comment: Please note that the pediatric reference intervals supplied above were not validated at [facility] [place]. Results from pediatri c patients should be interpreted in conjunction to the patient's age, height and muscle mass. Sodium 140 135 - 145 mmol/L [facility] Potassium 3.4 (L) 3.5 - 5.0 mmol/L [facility] Comment: Please note: ??Patients with WBC >100,00 0 may have falsely elevated Potassium levels. ??For accurate Potassium quantif ication in these patients send serum separator tube (gold top) for subsequent determinations. ??Contact the Clinical Chemistry Laboratory if there are any qu estions. Chloride 107 98 - 107 mmol/L [facility] CO2 18 (L) 22 - 31 mmol/L [facility] Anion Gap 15 5 - 15 mmol/L [facility] Calcium 9.1 8.5 - 10.5 mg/dL [facility] Total Protein 7.2 6.1 - 8.0 gm/dL [facility] Albumin 4.2 3.2 - 5.2 gm/dL [facility] AST 16 0 - 30 unit/L [facility] ALT 24 0 - 30 unit/L [facility] Alk Phos 156 (H) 40 - 104 unit/L [facility] Total Bilirubin 0.3 0.2 - 1.3 mg/dL [facility] Bili, Direct 0.1 0.0 - 0.3 mg/dL [facility] Estimated GFR 48 (L) >=60 [facility] Comment: This estimated GFR (eGFR) [...] the following links into your internet browser. [email or web address] Specimen Anatomical Collection Method Collection Time Receive d Time (Source) Location / / Volume Laterality Blood specimen 02/03/2016 1:27 PM 016 1:36 (specimen) EDT PM EDT Resulting Agency Comment Spec In Lab Jose De Jesus Martinze MD CHEMISTRY ORDERABLES Performing Organization Address City/State/[place] [address] documented in this encounter Visit Diagnoses Diagnosis Diarrhea Gastritis Unspecified gastritis and gastroduodenit is without mention of hemorrhage documented in this encounter Care Teams [employer] Relationship Specialty Start Date End Date Tarsha Williamson MD PCP - General 10/21/13 04/02/[address] [place] [address] [place] [address] documented as of this encounter
--- OUTSIDE RECORDS SUMMARY | 2022-03-18 11:36 | XMS_ITS | Encounter Summary ---
:1970 Author Organization [facility] [place] [address] Care Team Providers Name Role Phone Tarsha Williamson MD Primary Care Provider Encounter Details Date Type Department Care Team Description 02/23/2016 Orders Only [place] [facility]a Ocampo, [facility] [place] [address] [facility] [phone] GASTROENTEROLOGY DEPT. [place], [place] [address] (Wo rk) Social History Tobacco [...] MD [facility] [place] [address] (Wo rk) documented as of this encounter Visit Diagnoses Not on filedocumented in this encounter Care Teams Client Relations Representative Relationship Specialty Start Date End Date Tarsha Williamson MD PCP - General 10/21/13 04/02/[address] [place] [address] [place], [place] [id number] documented as of this encounter
--- OUTSIDE RECORDS SUMMARY | 2022-03-18 11:36 | XMS_ITS | Encounter Summary ---
:1970 [place] [address] Care Team Providers Name Role Phone Tarsha Williamson MD Primary Care Provider Encounter Details Date Type Department Care Team Description 03/28/2016 Hospital Encounter Radiology Library at [facility] enzo Leach MD [facility] [place] [address] [place], [place] [phone] (Wo rk) [phone] Social History Tobacco Use Types Packs/Day Years [...] 0 02/1805/26/2016 mg Tablet mouth as needed. lamoTRIgine (LAMICTAL) 25 Take 50 mg by [...] Visit Neurology Cameron Alves MD [facility] [place] [address] (Wo rk) documented as of this encounter Procedures Procedure Name Priority Date/Time Associated Diagnosis Comme [facility] FILM LIBRARY Routine 03/28/2016 12:00 AM Pain Results for this STORAGE ONLY CT EDT procedure ar e in HEAD the results section. documented in this encounter Results Film Library- Storage Only CT Head (03/28/2016 12:00 AM EDT) Specimen (Source) Anatomical Location Collection Method / Collectio n Time Received Time / Laterality Volume Narrative RAD - 03/28/2016 1:32 AM EDT This exam is for storage only and is aut o-finalizing. Jason Mancilla MD IMG FILM LIBRARY ORDERABLES Performing Organization Address City/State/ZIP Code Phon e Number [facility] [place] documented in this encounter Visit Diagnoses Diagnosis Pain Generalized pain documented in this encounter Care Teams Business Analytics Specialist Relationship Specialty Start Date End Date Tarsha Williamson MD PCP - General 10/21/13 04/02/[address] [place] [address] [place] [address] documented as of this encounter
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
--- OUTSIDE RECORDS SUMMARY | 2022-03-18 11:37 | XMS_ITS | Encounter Summary ---
:1970 Author Organization [facility] [place] [address] Care Team Providers Name Role Phone Sara Zabala JOSE Primary Care Provider [phone] Encounter Details Date Type Department Care Team Description 11/19/2011 Orders Only Radiology Camille Jarvis MD Abnormal MRI, breast [facility] (Pr imary Dx) [place] [address] NUCLEAR MEDICINE [phone] [place], [place] [address] Social History Tobacco Use Types Packs/Day Years Used Date Never Assessed Sex Assigned at Date Recorded Not on file documented as of this encounter Plan of Treatment Upcoming Encounters Date Type Specialty Care Team Description 04/14/2022 Office Visit Neurology Cameron Alves MD [facility] [place] [address] (Wo rk) documented as of this encounter Results Mammo breast US unilateral bilateral (11/24/2011 1:40 PM EDT) Anatomical Region Laterality Modality Breast N/A Mammography Specimen (Source) Anatomical Collection Method Collection Time Re ceived Time Location / / Volume Laterality 11/24/2011 1:40 PM EDT Narrative 11/24/2011 3:22 PM EDT RIGHT BREAST ULTRASOUND ON 11/24/11: DIAGNOSTIC IMAGING SUMMARY: RIGHT BREAST LESION 1: SUSPICIOUS (BIRAD S Category 4A-low concern for malignancy). Finding: oval hypoechoic lesion. Size: 8 x 6mm. Location: 1100, 3cm from the nipple. Recommendation: Ultrasound guided biopsy which has been scheduled for 12/03/11 at 10:00am. These results were discussed with the pa tient at the time of the ultrasound by Dr. Castillo and plan was made to procee d with ultrasound guided biopsy. NARRATIVE: CLINICAL INDICATION: Abnormal MRI, enhan cing lesion on 11/17/11. The patient also has a history of bloody nipple discharge . COMPARISON: Breast MRI dated 11/17/11. TECHNIQUE: Real time ultrasound acquired of the Right breast in the area of concern. FINDINGS: There is an 8 x 6mm hypoechoic lesion with surrounding pseudocapsule and internal vascularity located at 1100 , 3cmfrom the nipple in the upper outer quadrant. This corresponds with the abno rmality seen on the recent MRI. ?? Film and interpretation reviewed by the attending Procedure Note Kristen Espinoza MD - 11/14 RIGHT BREAST ULTRASOUND ON 11/24/11: DIAGNOSTIC IMAGING SUMMARY: RIGHT BREAST LESION 1: SUSPICIOUS (BIRAD S Category 4A-low concern for malignancy). Finding: oval hypoechoic lesion. Size: 8 x 6mm. Location: 1100, 3cm from the nipple. Recommendation: Ultrasound guided biopsy which has been scheduled for 12/03/11 at 10:00am. These results were discussed with the pa tient at the time of the ultrasound by Dr. Castillo and plan was made to procee d with ultrasound guided biopsy. NARRATIVE: CLINICAL INDICATION: Abnormal MRI, enhan cing lesion on 11/17/11. The patient also has a history of bloody nipple discharge . COMPARISON: Breast MRI dated 11/17/11. TECHNIQUE: Real time ultrasound acquired of the Right breast in the area of concern. FINDINGS: There is an 8 x 6mm hypoechoic lesion with surrounding pseudocapsule and internal vascularity located at 1100 , 3cmfrom the nipple in the upper outer quadrant. This corresponds with the abno rmality seen on the recent MRI. Film and interpretation reviewed by the attending Camille Jarvis MD IMG MAMMO ORDERABLES documented in this encounter Visit Diagnoses Diagnosis Abnormal MRI, breast - Primary Other (abnormal) findings on radiologica l examination of breast Abnormal MRI, breast Other (abnormal) findings on radiologica l examination of breast documented in this encounter Care Teams Manual Tester Relationship Specialty Start Date End Date Sara Zabala APRN PCP - General 07/08/10 09/22/12 [address] [place] [address] documented as of this encounter
--- OUTSIDE RECORDS SUMMARY | 2022-03-18 11:37 | XMS_ITS | Encounter Summary ---
:1970 Author Organization [facility] [place] [address] Care Team Providers Name Role Phone Sara Zabala [facility] Primary Care Provider [phone] Encounter Details Date Type Department Care Team Description 10/29/2011 Orders Only Hematology and Oncology Agnieszka Del Rio, Breast cancer at [facility] [place] [address] GENERAL SURGERY [phone] [place], [place] [address] (Wo rk) Social History Tobacco Use Types Packs/Day Years Used Date Never Assessed Sex Assigned at Date Recorded Not on file documented as of this encounter Plan of Treatment Upcoming Encounters Date Type Specialty Care Team Description 04/14/2022 Office Visit Neurology Cameron Alves MD [facility] [address] [place], [place] [address] (Wo rk) documented as of this encounter Results MRI breast diagnostic bilateral with/WO contrast (11/17/2011 1:11 PM EDT) Anatomical Region Laterality Modality Breast N/A Magnetic Resonance Specimen (Source) Anatomical Collection Method Collection Time Re ceived Time Location / / Volume Laterality 11/17/2011 1:11 PM EDT Narrative 11/20/2011 1:20 PM EDT BILATERAL BREAST MRI ON 11/17/11: ?? SUMMARY: ?? RIGHT BREAST LESION 1: ASSESSMENT IS INC OMPLETE (BIRADS Category 0). ?? Lesion type: Mass. Size: 8 x 5 x 8mm. ?? Location: 1100, 2.5 (1.4)cm from the nip ple (radial). Distance from skin: 9mm. Mass margins: Smooth. Mass shape: Oval. Enhancement pattern: Homogeneous. Kinetics: Indeterminate. Recommendation: Extra views/ultrasound. ?? Comments: In view of the strong family h istory and nipple discharge, if ultrasound is negative then recommend MR I guided biopsy. ?? LEFT BREAST: BENIGN FINDING (BIRADS Kathy gory 2). Scattered punctate enhancement consistent with FCD/hormonal changes. ? NARRATIVE: ?? Clinical indication: Bilateral nipple di scharge. Family history of breast cancer. ?? Techniques: Multiplanar sequences were o btained pre- and post- gadolinium enhancement, to include SPGR weighted dy namic run-off and subtraction sequences obtained after the intravenous administr ation of 13ccs of Magnevist. Computer algorithm analysis for lesion detection and kinetic contrast enhancement curve analysis was performed, using [employer] oftware. ?? Background enhancement pattern (first po st gadolinium images): Marked (>75% breast). Lesions may be obscured by the intense background enhancement. ?? Comparison studies: ??Mammograms dated: 10/27/11. ??Ultrasound dated: 10/27/11. ?? Benign appearing axillary nodes: Visuali zation adequate - bilaterally. ? Film and interpretation reviewed by the attending Procedure Note Camille Jarvis MD - 11/20/2011Formattin g of this note might be different from the original. BILATERAL BREAST MRI ON 11/17/11: SUMMARY: RIGHT BREAST LESION 1: ASSESSMENT IS INC OMPLETE (BIRADS Category 0). Lesion type: Mass. Size: 8 x 5 x 8mm. Location: 1100, 2.5 (1.4)cm from the nip ple (radial). Distance from skin: 9mm. Mass margins: Smooth. Mass shape: Oval. Enhancement pattern: Homogeneous. Kinetics: Indeterminate. Recommendation: Extra views/ultrasound. Comments: In view of the strong family h istory and nipple discharge, if ultrasound is negative then recommend MR I guided biopsy. LEFT BREAST: BENIGN FINDING (BIRADS Kathy gory 2). Scattered punctate enhancement consistent with FCD/hormonal changes. NARRATIVE: Clinical indication: Bilateral nipple di scharge. Family history of breast cancer. Techniques: Multiplanar sequences were o btained pre- and post- gadolinium enhancement, to include SPGR weighted dy namic run-off and subtraction sequences obtained after the intravenous administr ation of 13ccs of Magnevist. Computer algorithm analysis for lesion detection and kinetic contrast enhancement curve analysis was performed, using [employer] oftware. Background enhancement pattern (first po st gadolinium images): Marked (>75% breast). Lesions may be obscured by the intense background enhancement. Comparison studies: Mammograms dated: 28/07. Ultrasound dated: 10/27/11. Benign appearing axillary nodes: Visuali zation adequate - bilaterally. Film and interpretation reviewed by the attending Radha Rooney MD IMG MRI ORDERABLES documented in this encounter Visit Diagnoses Diagnosis Breast cancer Malignant neoplasm of breast (female), u nspecified site Breast cancer Malignant neoplasm of breast (female), u nspecified site documented in this encounter Care Teams Vocal Music Teacher Relationship Specialty Start Date End Date Sara Zabala, ASSAULT AMPHIBIOUS VEHICLE OFFICER PCP - General 07/08/10 09/22/12 [address] [place] [address] documented as of this encounter
--- OUTSIDE RECORDS SUMMARY | 2022-03-18 11:37 | XMS_ITS | Encounter Summary ---
:1970 Author Organization [facility] [place] [address] Care Team Providers Name Role Phone Sara Zabala JOSE Primary Care Provider [phone] Encounter Details Date Type Department Care Team Description 10/27/2011 Hospital Encounter Mammography at [facility], [facility] Breast pain [facility] Radha Vincent MD [facility] [address] [place] [address] Social History Tobacco Use Types Packs/Day Years Used Date Never Assessed Sex Assigned at Date Recorded Not on file documented as of this encounter Medications at Time of Discharge Medication Sig Dispensed Refills Start Date End Date cyclobenzaprine (FLEXERIL) 10 M/2 to 1 0 /0 02/200909/25/2012 10 mg tablet tablet, PO, Three times daily prn spasms clonAZEpam (KLONOPIN) 1 mg 0 200 9 10/23/2013 tablet HYDROCODONE 0 10/20/2008 09/25/2012 BIT/ACETAMINOPHEN (HYDROCODONE-ACETAMINOPHEN ORAL) lisinopril 0 10/20/2008 09/25/2012 (PRINIVIL;ZESTRIL) 20 mg tablet amitriptyline (ELAVIL) 25 0 10/20/2008 10/23/2013 mg tablet ZOLPIDEM TARTRATE (AMBIEN 0 10/20/2008 09/25/2012 ORAL) documented as of this encounter Plan of Treatment Upcoming Encounters Date Type Specialty Care Team Description 04/14/2022 Office Visit Neurology Cameron Alves MD [facility] [address] [place], [place] [address] (Wo rk) documented as of this encounter Procedures Procedure Name Priority Date/Time Associated Comments Diagnosis MAMMO DIAGNOSTIC CAD Routine 10/27/2011 2:17 PM Breast pain R esults for this BILATERAL EDT procedure are i n the results section. documented in this encounter Results Mammo digital bilateral diagnostic with CAD (10/27/2011 2:17 PM EDT) Anatomical Region Laterality Modality Breast Bilateral Mammography Specimen (Source) Anatomical Collection Method Collection Time Re ceived Time Location / / Volume Laterality 10/27/2011 2:17 PM EDT Narrative 10/28/2011 4:38 PM EDT BILATERAL MAMMOGRAM AND BILATERAL LEFT BREAST ULTRASOUND ON 10/27/11: ?? TECHNIQUE: Bilateral MLO, bilateral CC, bilateral true lateral and mag, bilateral CC mag, bilateral ML. ?? This patient has a strong family history of breast cancer; her mother of breast cancer in her late 40s. She has s ix week history of bilateral nipple discharge, sometimes bloody. She was als o complaining of questionable palpable area in the lower, outer quadrant of the Left breast. Bilateral mammograms are normal, including magnification views of the sub-areolar areas. Periareolar ultrasound, as well as ultrasound of the area of concern in the lower, outer quadrant was normal aside from a simple cyst at 0300, which was not palpable. ? INTERPRETATION: ?? BENIGN (BI-RADS Category 2) bilateral ma mmogram and Left breast ultrasound for a simple cyst, Left breast. She needs to be referred to the department of General Surgery for further evaluation. In view of her extreme breast density as well as her family history and bloody nipple discharge bilaterally, she should be considered for bilateral breas t MRI. Preliminary report E-mailed to Melissa Del Rio APRN, 10/28/11. Procedure Note Camille Jarvis MD - 10/28/2011Formattin g of this note might be different from the original. BILATERAL MAMMOGRAM AND BILATERAL LEFT B REAST ULTRASOUND ON 10/27/11: TECHNIQUE: Bilateral MLO, bilateral CC, bilateral true lateral and mag, bilateral CC mag, bilateral ML. This patient has a strong family history of breast cancer; her mother of breast cancer in her late 40s. She has s ix week history of bilateral nipple discharge, sometimes bloody. She was als o complaining of questionable palpable area in the lower, outer quadrant of the Left breast. Bilateral mammograms are normal, including magnification views of the sub-areolar areas. Periareolar ultrasound, as well as ultrasound of the area of concern in the lower, outer quadrant was normal aside from a simple cyst at 0300, which was not palpable. INTERPRETATION: BENIGN (BI-RADS Category 2) bilateral ma mmogram and Left breast ultrasound for a simple cyst, Left breast. She needs to be referred to the department of General Surgery for further evaluation. In view of her extreme breast density as well as her family history and bloody nipple discharge bilaterally, she should be considered for bilateral breas t MRI. Preliminary report E-mailed to Melissa Del Rio APRN, 10/28/11. Radha Rooney MD IMG MAMMO ORDERABLES documented in this encounter Visit Diagnoses Diagnosis Breast pain Mastodynia documented in this encounter Care Teams Putty And Patch Worker Relationship Specialty Start Date End Date Sara Zabala APRN PCP - General 07/08/10 09/22/12 [address] [place] [address] documented as of this encounter
--- OUTSIDE RECORDS SUMMARY | 2022-03-18 11:37 | XMS_ITS | Encounter Summary ---
:1970 Author Organization [facility] [place] [address] Care Team Providers Name Role Phone Sara Zabala COMPOUND COATING MACHINE OFFBEARER Primary Care Provider Encounter Details Date Type Department Care Team Description 12/03/2011 Orders Only Radiology Jonathan Garcia, [facility] [place] [address] [facility] [phone] DIAGNOSTIC RADIO [place], [place] [address] (Wo rk) Social History Tobacco Use Types Packs/Day Years Used Date Never Assessed Sex Assigned at Date Recorded Not on file documented as of this encounter Progress Notes Kristen Espinoza MD - 12/03/2011 8:43 AM EDT Procedure date: today Procedure type: right breast US guided core biopsy Special Instructions: NONE Allergies: Review of patient's allergies indicates no known allergies. Medications: has a current medication list which includes cyclobenzaprine, clonazepam, cymbalta, hydrocodone bit/acetaminophen, lisinopril, amitriptyline, and zolpidem tartrate. Anticoagulation status: none Imaging reviewed and procedural plan approved by Dr. KRISTEN GARCIA MD documented in this encounter Plan of Treatment Upcoming Encounters Date Type Specialty Care Team Description 04/14/2022 Office Visit Neurology Cameron Alves MD [facility] er [place], [place] [address] (Wo rk) documented as of this encounter Visit Diagnoses Not on filedocumented in this encounter Care Teams Heading Saw Operator Relationship Specialty Start Date End Date Sara Zabala APRN PCP - General 07/08/10 09/22/[address] [place] [id number] documented as of this encounter
--- OUTSIDE RECORDS SUMMARY | 2022-03-18 11:37 | XMS_ITS | Encounter Summary ---
:1970 Author Organization [facility] Address [address] [place] [address] Care Team Providers Name Role Phone Unknown Primary Care Provider Unavailable Encounter Details Date Type Department Care Team Description 11/19/2012 Telephone Internal Medicine at [facility] Leona Echols MD [facility] [address] NEUROSURGERY DEPT [phone] [place], [place] [address] (Wo rk) Social History Tobacco Use Types Packs/Day Years Used Date Former Smoker Cigarettes 10 Smokeless Tobacco: Never Used Comments: quit sep 2012 Alcohol Use Standard Drinks/Week Comments No 0 (1 standard drink = 0.6 oz pure alcoho l) Sex Assigned at Date Recorded Not on file documented as of this encounter Miscellaneous Notes Telephone Encounter - Leona Echols - 11/19/2012 1:55 PM EDT Called today by Lisseth regarding symptoms of dizziness and nausea. She was at a basketball game today and had her [place] [employer] Collar off. Someone accidentally bumped her head and she felt her neck move and had sudden onset dizziness and nausea that has persisted. She is scheduled to see neurosurgery in follow up on Wednesday (2 days from now) for repeat XR, now nearly 2 months out form her initial injury (C1 arch fx). I advised her to present to her local ED (she lives in [place]), for evaluation. I was concerned that she may have had a dissection, if she had any instability in her C-spine out of the collar. She agreed to this plan. She will also keep her appointment with us on Wednesday. documented in this encounter Plan of Treatment Upcoming Encounters Date Type Specialty Care Team Description 04/14/2022 Office Visit Neurology Cameron Alves MD [facility] er [address] [place], [place] [address] (Wo rk) documented as of this encounter Visit Diagnoses Not on filedocumented in this encounter Care Teams Financial Services Technician Relationship Specialty Start Date End Date Unknown PCP - General 09/23/12 11/20/12 None documented as of this encounter
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
--- OUTSIDE RECORDS SUMMARY | 2022-03-18 11:37 | XMS_ITS | Encounter Summary ---
:1970 Author Organization [place] [address] Care Team Providers Name Role Phone Charmaine Ayala MD Primary Care Provider Encounter Details Date Type Department Care Team Description 11/21/2012 Abstract Neurosurgery Carolina Okeefe APRN [facility] D [facility] [place] [address] NEUROSURGERY DEPT. [phone] [place], [place] [address] (Wo rk) Social History Tobacco [...] Office Visit Neurology Cameron Alves MD [facility] [address] [place] [address] (Wo rk) documented as of this encounter Visit Diagnoses Not on filedocumented in this encounter Care Teams Major Assembler Relationship Specialty Start Date End Date Charmaine Ayala MD PCP - General 11/21/12 02/28/13 [address] [place], [place] [id number] documented as of this encounter
--- OUTSIDE RECORDS SUMMARY | 2022-03-18 11:37 | XMS_ITS | Encounter Summary ---
:1970 Author Organization [facility] [place] [address] Care Team Providers Name Role Phone Charmaine Ayala MD Primary Care Provider Encounter Details Date Type Department Care Team Description 12/23/2012 Abstract Neurosurgery Carolina Okeefe APRN [facility] D [facility] [place] [address] NEUROSURGERY DEPT. [phone] [place], [place] [address] (Wo rk) Social History Tobacco [...] Cameron Alves MD [facility] [address] [place] [address] (Wo rk) documented as of this encounter Visit Diagnoses Not on filedocumented in this encounter Care Teams Diesel Service Technician Relationship Specialty Start Date End Date Charmaine Ayala MD PCP - General 11/21/12 02/28/13 [address] [place], [place] [id number] documented as of this encounter
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
--- OUTSIDE RECORDS SUMMARY | 2022-03-18 11:37 | XMS_ITS | Encounter Summary ---
:1970 Author Organization [facility] [place] [address] Care Team Providers Name Role Phone Unknown Primary Care Provider Unavailable Encounter Details Date Type Department Care Team Description 09/23/2012 Orders Only General Surgery at [facility] Luis M Nathan MD [facility] [place] [address] GENERAL SURGERY [phone] [place], [place] [address] (Wo rk) Social History Tobacco [...] Cameron Alves MD [facility] [place] [address] (Wo rk) documented as of this encounter Procedures Procedure Name Priority Date/Time Associated Diagnosis Comme nts FILM LIBRARY Routine 09/23/2012 3:43 PM Results f or this STORAGE ONLY DX EST procedure ar e in CHEST the results section. documented in this encounter Results Film Library- Storage only DX Chest (09/23/2012 3:43 PM EST) Specimen (Source) Anatomical Collection Method Collection Time Re ceived Time Location / / Volume Laterality 09/23/2012 3:43 PM EST Narrative RAD - 01/24/2014 2:55 PM EDT This is a non-reportable exam. Procedure Note Lul Palmer - 01/24/2014Formatting of t his note might be different from the original. This is a non-reportable exam. Luis M Nathan MD IM FILM LIBRARY ORDERABLES Performing Organization Address City/State/ZIP Code Phon e Number [facility] [address] [facility] [place] [address] documented in this encounter Visit Diagnoses Not on filedocumented in this encounter Care Teams Electrical Maintenance Technician Relationship Specialty Start Date End Date Unknown PCP - General 09/23/12 11/20/12 None documented as of this encounter
--- OUTSIDE RECORDS SUMMARY | 2022-03-18 11:37 | XMS_ITS | Encounter Summary ---
:1970 Author Organization [facility] [place] [address] Care Team Providers Name Role Phone Unknown Primary Care Provider Unavailable Encounter Details Date Type Department Care Team Description 09/23/2012 Orders Only General Surgery at [facility] Luis M Nathan MD [facility] [place] [address] GENERAL SURGERY [phone] [place], [place] [address] (Wo rk) Social History Tobacco [...] Cameron Alves MD [facility] [address] [place], [place] [address] (Wo rk) documented as of this encounter Procedures Procedure Name Priority Date/Time Associated Diagnosis Comme nts FILM LIBRARY Routine 09/23/2012 3:44 PM Results f or this STORAGE ONLY DX EST procedure ar e in PELVIS the results section. documented in this encounter Results Film Library- Storage only DX Pelvis (09/23/2012 3:44 PM EST) Specimen (Source) Anatomical Collection Method Collection Time Re ceived Time Location / / Volume Laterality 09/23/2012 3:44 PM EST Narrative RAD - 01/24/2014 2:55 PM EDT This is a non-reportable exam. Procedure Note Lul Palmer - 01/24/2014Formatting of t his note might be different from the original. This is a non-reportable exam. Luis M Nathan MD IM FILM LIBRARY ORDERABLES Performing Organization Address City/State/ZIP Code Phon e Number [facility] [address] [facility] [place] [address] documented in this encounter Visit Diagnoses Not on filedocumented in this encounter Care Teams Life Coach Relationship Specialty Start Date End Date Unknown PCP - General 09/23/12 11/20/12 None documented as of this encounter
--- OUTSIDE RECORDS SUMMARY | 2022-03-18 11:37 | XMS_ITS | Encounter Summary ---
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 are shown in EST. Scheduled Medication Order 09/23/2012 09/24/2012 09/25/2012 celecoxib (celeBREX) capsule 200 mg (CANCELED) 13 (Given - Provider: Eula Kline RN - Comment: Pt request to sleep and be given when awake) 14 (Given - Provider: Eula Kline RN) 200 mg, Oral, 2 TIMES DAILY, First dose on 09/24/12 at 2100, Until Discontinued, Routine DULoxetine (CYMBALTA) capsule 60 mg (CANCELED) 2329 (N ot Given - Provider: Elli Nieves RN - Reason: Medication not available) 899 (Given - Provider: Shaina Hudson RN)2032 (Given - Provider: Eula Kline RN) 899 (Given - Provider: Melissa Valentine RN) 60 mg, Oral, 2 TIMES DAILY, First dose o n Wed09/23/12 at 2330, Until Discontinued, Routine famotidine (PEPCID) injection 20 mg (CANCELED) 2331 (G iven - Provider: Elli Nieves RN) 899 (See Alternative - Provider: Magaly Hudson RN)2032 (See Alternative - Provider: Eula Kline RN) 20 mg, Intravenous, EVERY 12 HOURS SCHED ULED (2 times per day), First dose on 09/24/12 at 0900, Until Discontinued, Routine famotidine (PEPCID) tablet 20 mg (CANCELED) 2331 (See Alternative - Provider: Elli Nieves RN) 899 (Given - Provider: Shaina hernandez RN)2032 (Given - Provider: Eula Kline RN) 20 mg, Oral, EVERY 12 HOURS SCHEDULED (2 times per day), First dose on 09/24/12 at 0900, Until Discontinued, If unable to take PO, may give IV, Routine hydrochlorothiazide (HYDRODIURIL) tablet 25 mg (CANCELED) 2029 (Given - Provider: Eula Kline RN) 09 (Given - Provider: Melissa Valentine RN) 25 mg, Oral, DAILY, First dose on 09/24/12 at 1915, Until Discontinued, Routine HYDROmorphone (DILAUDID) injection 0.2-0.4 mg (CANCELE D) 2258 (Given - Provider: Elli Nieves RN)2299 (Due) 0.2-0.4 mg, Intravenous, EVERY 4 HOURS, First dose on Wed09/23/12 at 2300, Until Discontinued, Routine lisinopril (PRINIVIL;ZESTRIL) tablet 20 mg (CANCELED) 2029 (Given - Provider: Eula Kline RN) 899 (Given - Provider: Melissa Valentine RN) 20 mg, Oral, DAILY, First dose on 09/24/12 at 1915, Until Discontinued, Routine metoprolol (LOPRESSOR) injection 5 mg (CANCELED) 2214 (Given - Provider: Elli Nieves RN) 0600 (Not Given - Provider: Elli hicks RN - Reason: Order parameters not met - Comment: BP was 98/50.)1200 (Not Given - Provider: Shaina Hudson RN - Reason: Order parameters not met) 5 mg, Intravenous, EVERY 6 HOURS SCHED ED, First dose on Wed09/23/12 at 2215, Until Discontinued, Hold for HR < 50 and SBP < 100 , Routine 1800 (Not Given - Provider: Shaina Hudson RN - Reason: Patient/family refused) pregabalin (LYRICA) capsule 50 mg (CANCELED) 2032 (Given - Provider: Eula Kline RN) 0900 (Given - Provider: Melissa Valentine, UC[facility]) 50 mg, Oral, 2 TIMES DAILY, First dose o n 09/24/12 at 2100, Until Discontinued, Routine sodium chloride 0.9 % flush 5 mL (CANCELED) 2214 (Give n - Provider: Elli Nieves RN) 0900 (Given - Provider: Shaina hernandez RN)2032 (Given - Provider: Eula Kline RN) 0900 (Given - Provider: Melissa Valentine, UCHE) 5 mL, Intravenous, EVERY 12 HOURS, First dose on 09/23/12 at 2215, Until Discontinued, Routine Continuous Medication Order 09/23/2012 09/24/2012 09/25/2012 sodium chloride 0.9% infusion (CANCELED) 2215 (New Bag - Provider: Elli Nieves RN) 0800 (New Bag - Provider: Shaina castellano RN)1918 (Stopped - Provider: Shaina Hudosn RN) 1,000 mL, at 100 mL/hr, Intravenous, CON TINUOUS, Starting 09/23/12 at 2215, Until 09/24/12 at 1856 PRN Medication Order 09/23/2012 09/24/2012 09/25/2012 acetaminophen (TYLENOL) tablet 650 mg 0748 (Given - Provider: Melissa Valentine RN)1602 (Given - Provider: Melissa Valentine, UCHE) 650 mg, Oral, EVERY 4 HOURS PRN, Startin g 09/23/12 at 2158, Until 09/25/12 at 1802, Pain, for MILD pain, Do not exceed 4,000 mg in 24 hours, Routine fentaNYL 50mcg/mL injection (CANCELED) 1845 (Given - P rovider: Suraj Babb RN)191 (Given - Provider: Suraj Babb RN)2044 (Given - Provider: Suraj Babb RN) 25-50 mcg, Intravenous, PER TRAUMA ANALG ESIC PROTOCOL, Starting Wed09/23/12 at 1810, Until 09/23/12 at 2222, Pain, Every 5-15 minutes PRN, STAT HYDROmorphone (DILAUDID) injection 0.2-0.4 mg (CANCELED) 0400 (Given - Provider: Elli Nieves RN)0802 (Given - Provider: Shaina Hudson, UCHE)1434 (Given - Provider: Shaina Hudson, UCHE)2318 (Given - Provider: Eula Kline RN) 0.2-0.4 mg, Intravenous, EVERY 4 HOURS P RN, Starting Wed09/23/12 at 2251, Until 09/25/12 at 1053, Pain, Routine iohexol (OMNIPAQUE) 350 mg iodine/mL injection 22,750 mg (COMPLETED) 1851 (Given - Provider: Dylan Mix) 65 mL = 22,750 mg, Intravenous, ONCE PRN , 1 dose, Starting 09/23/12 at 1851, Until 09/23/12 at 1852, Per Protocol, Routine iohexol (OMNIPAQUE) 350 mg iodine/mL injection 38,500 mg (COMPLETED) 1852 (Given - Provider: Dylan Mix) 110 mL = 38,500 mg, Intravenous, ONCE ME N, 1 dose, Starting 09/23/12 at 1852, Until 09/23/12 at 1853, Per Protocol, Routine nicotine polacrilex (COMMIT) lozenge 4 mg (CANCELED) 08 (Given - Provider: Shaina Hudson RN) 4 mg, Buccal, EVERY 2 HOURS PRN, Startin g 09/24/12 at 0618, Until 09/25/12 at 1802, Smoking cessation, Do not chew or swallow. Place in mouth and allow to slowly dissolve., Routine OXYcodone (ROXICODONE) immediate release tablet 5-10 m g (CANCELED) 2100 (Given - Provider: Suraj Babb RN) 5-10 mg, Oral, EVERY 4 HOURS PRN, Starti ng Fri 09/23/12 at 2112, Until 09/23/12 at 2222, Pain, May repeat 5 mg in 60 minutes if pain not relieved., Routine OXYcodone (ROXICODONE) immediate release tablet 5-15 m g (CANCELED) 2242 (Given - Provider: Elli Nieves RN) 0138 (Given - Provider: Jodi Lugo N)0521 (Given - Provider: Elli Nieves RN) 5-15 mg, Oral, EVERY 4 HOURS PRN, Starti ng Fri 09/23/12 at 2221, Until 09/24/12 at 0757, Pain, May repeat 5 mg in 60 minutes if pain not relieved., Routine OXYcodone (ROXICODONE) immediate release tablet 5-15 mg 0900 (Given - Provider: Shaina Hudson RN)1235 (Given - Provider: Shaina A Garnsey, RN)1732 (Given - Provider: Shaina Hudson, RN)2033 (Given - Provider: Eula Kline, RN) 0013 (Given - Provider: Eula Kline, RN)0355 (Given - Provider: Eula Kline, RN)0748 (Given - Provider: Melissa Valentine, RN)1218 (Given - Provider: Melissa Valentine, RN)1500 (Given - Provider: Melissa Valentine, RN) 5-15 mg, Oral, EVERY 3 HOURS PRN, Starti ng Sat 09/24/12 at 0800, Until 09/25/12 at 1802, Pain, May repeat 5 mg in 60 minutes if pain not relieved., Routine No Frequency Medication Order 09/23/2012 09/24/2012 09/25/2012 nicotine (NICODERM CQ) 14 mg/24 hr patch (COMPLETED) 2 130 (Given - Provider: Suraj Babb, UCHE) 1 dose, Starting 09/23/12 at 2114, Unt il 09/23/12 at 2130, MARCELINA COVARRUBIAS: cabinet override documented in this encounter Care Teams Livestock Trucker Relationship Specialty Start Date End Date Unknown PCP - General 09/23/12 11/20/12 None documented as of this encounter
--- OUTSIDE RECORDS SUMMARY | 2022-03-18 11:37 | XMS_ITS | Encounter Summary ---
:1970 Author Organization [facility] [place] [address] Care Team Providers Name Role Phone Sara Zabala JOSE Primary Care Provider [phone] Encounter Details Date Type Department Care Team Description 10/22/2011 Orders Only Hematology and Agnieszka Del Rio Breas t pain (Primary Oncology at [facility]NAGEMENT CONSULT[facility] Dx) [facility] [address] GENERAL SURGERY [address] [place] [address] [phone] (Wo rk) Social History Tobacco Use Types Packs/Day Years Used Date Never Assessed Sex Assigned at Date Recorded Not on file documented as of this encounter Plan of Treatment Upcoming Encounters Date Type Specialty Care Team Description 04/14/2022 Office Visit Neurology Cameron Alves MD [facility] [address] [place] [address] (Wo rk) documented as of this encounter Results Mammo breast US unilateral bilateral (10/27/2011 3:05 PM EDT) Anatomical Region Laterality Modality Breast N/A Mammography Specimen (Source) Anatomical Collection Method Collection Time Re ceived Time Location / / Volume Laterality 10/27/2011 3:05 PM EDT Narrative 10/28/2011 4:38 PM EDT [...] report E-mailed to Melissa Del Rio APRN, 03/14/12. Radha Rooney MD IMG MAMMO ORDERABLES Mammo digital bilateral diagnostic with CAD (10/27/2011 [...] this encounter Visit Diagnoses Diagnosis Breast pain - Primary Mastodynia Breast pain Mastodynia Breast pain Mastodynia documented in this encounter Care Teams Biological Science Technician Relationship Specialty Start Date End Date Sara Zabala, JOSE PCP - General 07/08/10 09/22/12 [address] [place] [address] documented as of this encounter
--- OUTSIDE RECORDS SUMMARY | 2022-03-18 11:37 | XMS_ITS | Encounter Summary ---
:1970 Author Organization [facility] [place] [address] Care Team Providers Name Role Phone Shayla Courtney APRN Primary Care Provider [phone] Reason for Visit Reason Comments Benign Breast Encounter Details Date Type Department Care Team Description 11/17/2011 Office Visit General Surgery at CLIN[facility], DR LAURA Cabrera ystic breast changes; [facility] Agnieszka Del Rio APRN [facility] [place] [address] Breast cancer screening, [place] [address] Social History Tobacco Use Types Packs/Day Years Used Date Never Assessed Sex Assigned at Date Recorded Not on file documented as of this encounter Progress Notes Agnieszka Del Rio APRN - 11/17/2011 2:06 PM EDT Ms. Boone is a 41 y.o. year-old patient who is seen in consultation from Lulú Courtney APRN for evaluation of a several week history of non bloody,bilateral spontaneous and non spontaneous nipple discharge. Discharge is worse on the right and before her period. She denies any skin changes, new breast masses, breast trauma or prior breast surgery.Imaging performed (bilateral mammogram with focused ultrasound/left)at [facility] on 11/02/11 was interpreted as Category 2/simple cyst at 0300,not palpable. She had a screening MRI today due to her risk status. She is very worried about this. She does have a history of cystic breast tissue and has not had cysts aspirated or breast biopsies in the past. She does not do regular self-breast exams. Weight stable. She has no new or concerning complaints of fatigue, cardiovascular or respiratory symptoms. All other ROS are negative. Reproductive History: , had her first child at the age of 22 and didt nurse her children. Menarche began at 15.Her LMP was 11/02. HRT/OC: none Family History: Positive for breast cancer:mother at 50, paternal grandmother at 73 Positive for ovarian cancer:maternal grandmother at 66 No genetic testing done. Social History: She works for a public [employer] company. She does not smoke. Past Medical History:?fibromyalgia Past Surgical History: Noncontributory Physical Exam: She looks well and is in no apparent distress. Her skin is anicteric with good turgor. Sclera are anicteric. Her head and neck are without masses or adenopathy. Her arms have good ROM without any evidence of lymphedema. Breasts are small with a paucity of fat. Her breasts are symmetric. Her nipples are everted. There is no axillary adenopathy on the right or the left. There are no skin changes or dimpling noted in either breast. The right breast is notable for slightly heterogenous breast tissue,without discrete masses.Scant amount of cloudy nipple discharge from several ducts with firm pressure bilaterally. No blood. Her left breast exam is similar in character to her right breast,without discrete masses. REINALDO RISK: 5 year:1% Lifetime: 18.4% Assessment: Clinical breast exam notable for fibrocystic breast tissue without discrete masses.Physiologic nipple discharge. 5 Year REINALDO Risk insufficiently high to warrant consideration for chemoprevention (< 1.7%). Lifetime REINALDO Risk borderline high to warrant ongoing adjunctive MRI at this time. (<20%) Plan: I have advised Ms. Boone to attempt to do occasional self-breast exam and continue to get annual clinical breast exams. We discussed how the symptoms she is experiencing are most likely related to cyclic changes and are benign in nature. I will call her with her MRI results. If normal, I have offered to follow her with [facility] every 6 months,next appt 05/2012. We also discussed familial counseling as a method of determining her actual risk of developing breast cancer and how this risk information is used to determine benefits of genetic testing, chemo prevention and or breast MRI. I gave her a brochure and she will consider this. Ms. Boone agrees to this plan. SHAYLA COURTNEY APRN documented in this encounter Plan of Treatment Upcoming Encounters Date Type Specialty Care Team Description 04/14/2022 Office Visit Neurology Cameron Alves MD [facility] er [address], [place] [address] (Wo rk) documented as of this encounter Visit Diagnoses Diagnosis Fibrocystic breast changes Diffuse cystic mastopathy Breast cancer screening, high risk patie nt Screening mammogram for high-risk patien t documented in this encounter Care Teams Quarry Plug And Feather Driller Relationship Specialty Start Date End Date Shayla Courtney APRN PCP - General 07/08/10 09/22/12 [address] [place] [address] documented as of this encounter
--- OUTSIDE RECORDS SUMMARY | 2022-03-18 11:37 | XMS_ITS | Encounter Summary ---
:1970 Author Organization [place] [address] Care Team Providers Name Role Phone Nadege Zabalal Jodi JOSE Primary Care Provider [phone] Encounter Details Date Type Department Care Team Description 11/17/2011 Hospital Encounter MRI at [facility] [place] [address] Social History Tobacco Use Types Packs/Day Years Used Date Never Assessed Sex Assigned at Date Recorded Not on file documented as of this encounter Last Filed Vital Signs Vital Sign Reading Time Taken Comments Blood Pressure - - Pulse - - Temperature - - Respiratory Rate - - Oxygen Saturation - - Inhaled Oxygen Concentration - - Weight 59 kg (130 lb) 11/17/2011 6:17 AM EDT Height - - Body Mass Index - - documented in this encounter Medications at Time of Discharge Medication Sig Dispensed Refills Start Date End Date cyclobenzaprine (FLEXERIL) 10 M/2 to 1 0 /02/200909/25/2012 10 mg tablet tablet, PO, Three times daily prn spasms clonAZEpam (KLONOPIN) 1 mg 0 9 10/23/2013 tablet HYDROCODONE 0 10/20/2008 09/25/2012 BIT/ACETAMINOPHEN (HYDROCODONE-ACETAMINOPHEN ORAL) lisinopril 0 10/20/2008 09/25/2012 (PRINIVIL;ZESTRIL) 20 mg tablet amitriptyline (ELAVIL) 25 0 10/20/2008 10/23/2013 mg tablet ZOLPIDEM TARTRATE (AMBIEN 0 10/20/2008 09/25/2012 ORAL) documented as of this encounter Miscellaneous Notes Miscellaneous - Provider, Scanning - 11/26/2011 9:10 AM EDT documented in this encounter Plan of Treatment Upcoming Encounters Date Type Specialty Care Team Description 04/14/2022 Office Visit Neurology Cameron Alves MD [facility] er [address], [place] [address] (Wo rk) documented as of this encounter Procedures Procedure Name Priority Date/Time Associated Diagnosis Comme nts MRI BREAST WWO Routine 11/17/2011 1:11 PM Breast cancer Result s for this CONTRAST BILAT EDT procedure are in the results section. documented in this encounter Results MRI breast diagnostic bilateral [...] contrast enhancement curve analysis was performed, using ConfirmInvisible oftware. ?? Background enhancement pattern (first po [...] contrast enhancement curve analysis was performed, using ConfirmBagel Nash s oftware. Background enhancement pattern (first po st [...] u nspecified site documented in this encounter Administered Medications Inactive Administered Medications - up to 3 most recent administrations Medication Order MAR Action Action Date Dose Rate Site gadopentetate dimeglumine Given 11/17/2011 1:08 PM EDT 13 mLs (MAGNEVIST) injection 12 mL 12 mL (0.2 mL/kg/dose ? 59 kg), Intravenous, ONCE PRN, 1 dose, Starting on Wed11/17/11 at 1210, Until Wed11/17/11 at 1308, Per Protocol, Routine documented in this encounter Care Teams Dope Heater Relationship Specialty Start Date End Date Sara Zabala APRN PCP - General 07/08/10 09/22/12 [address] [place] [address] documented as of this encounter
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
--- OUTSIDE RECORDS SUMMARY | 2022-03-18 11:37 | XMS_ITS | Encounter Summary ---
:1970 Author Organization [facility] [place] [address] Care Team Providers Name Role Phone Sara Zabala JOSE Primary Care Provider [phone] Encounter Details Date Type Department Care Team Description 12/31/2011 Hospital En[place] [facility] Abnormal ultrasound [facility] Radha Rooney MD [facility] [place] [address] [place] [address] Social History Tobacco Use Types [...] Miscellaneous Notes Miscellaneous - Provider, Scanning - 02/03/2012 9:42 AM EDT documented in this encounter Plan of Treatment Upcoming Encounters Date Type Specialty Care Team Description 04/14/2022 Office Visit Neurology Cameron Alves MD [facility] [address] [place], [place] [address] (Wo rk) documented as of this encounter Procedures Procedure Name Priority Date/Time Associated Diagnosis Comme nts MAMMO US BIOPSY Routine 12/31/2011 11:56 AM Abnormal ultrasoun d Results for this BILATERAL EDT of breast procedure are i n the results section. documented in this encounter Results Mammo- US biopsy (12/31/2011 11:56 AM EDT) Anatomical Region Laterality Modality Breast N/A Mammography Specimen (Source) Anatomical Collection Method Collection Time Re ceived Time Location / / Volume Laterality 12/31/2011 11:56 AM EDT Impressions 01/05/2012 9:07 AM EDT Impression: concordant Recommendation: routine screening ??results and recommnedations discussed with the patient by phone 01-04-12 I was present with the resident, Dr. Kadie ocampo, for the candelaria component(s) of the procedure and otherwise remained immedia tely available for the duration of the procedure. I attest to having personally viewed the images/test and approve the above interpretation. Cell phone: [phone] Film and interpretation reviewed by the attending Narrative 01/05/2012 9:07 AM EDT ULTRASOUND GUIDED BIOPSY OF THE RIGHT BREAST ON 12/31/11: Informed consent was obtained, sterile t echnique and 1% lidocaine used for local anesthesia and ultrasound guidance used throughout the procedure. ?? Clinical indication: Right breast 7 x 6m m mass in the upper, outer quadrant at 1100, 3cm from the nipple. 14-gauge Achieve device 5 core biopsy specimens obtained. ?? An Ultra Clip 17-gauge Inrad (US) Ribbon marker clip was placed. Cranio-caudal and lateral digital mammography performe d to determine biopsy marker placement, which was shown to be at the biopsy site . Satisfactory sampling was obtained. There were no procedural complications. Imaging diagnosis: Fibroadenoma versus I DC and PASH/fibrosis. Pathologic diagnosis: FA Procedure Note Kristen Espinoza MD - 12/15 ULTRASOUND GUIDED BIOPSY OF THE RIGHT BR EAST ON 12/31/11: Informed consent was obtained, sterile t echnique and 1% lidocaine used for local anesthesia and ultrasound guidance used throughout the procedure. Clinical indication: Right breast 7 x 6m m mass in the upper, outer quadrant at 1100, 3cm from the nipple. 14-gauge Achieve device 5 core biopsy specimens obtained. An Ultra Clip 17-gauge Inrad (US) Ribbon marker clip was placed. Cranio-caudal and lateral digital mammography performe d to determine biopsy marker placement, which was shown to be at the biopsy site . Satisfactory sampling was obtained. There were no procedural complications. Imaging diagnosis: Fibroadenoma versus I DC and PASH/fibrosis. Pathologic diagnosis: FA IMPRESSION Impression: concordant Recommendation: routine screening results and recommnedations discussed w ith the patient by phone 01-04-12 I was present with the resident, Dr. Kadie ocampo, for the candelaria component(s) of the procedure and otherwise remained immedia tely available for the duration of the procedure. I attest to having personally viewed the images/test and approve the above interpretation. Cell phone: [phone] Film and interpretation reviewed by the attending Kristen Scott MD IMG MAMMO ORDERABLES documented in this encounter Visit Diagnoses Diagnosis Abnormal ultrasound of breast Other (abnormal) findings on radiologica l examination of breast documented in this encounter Care Teams Lehr Loader Relationship Specialty Start Date End Date Sara Zabala, HVAC ESTIMATOR PCP - General 07/08/10 09/22/12 [address] [place] [address] documented as of this encounter
--- OUTSIDE RECORDS SUMMARY | 2022-03-18 11:37 | XMS_ITS | Encounter Summary ---
:1970 Author Organization [facility] [place] [address] Care Team Providers Name Role Phone Charmaine Ayala MD Primary Care Provider Encounter Details Date Type Department Care Team Description 11/21/2012 Hospital En[place] [facility] [place] C1 fracture [address] [place] [address] [place] [phone] Social History Tobacco Use Types Packs/Day [...] 4 hours as needed (for MILD pain). celecoxib (CELEBREX) Take 200 mg by mouth 2 0 10/23/2013 200 mg times daily. capsuleIndications: Indications: psoriatic psoriatic arthritis arthritis lisinopril-hydrochlorot Take 1 tablet by mouth 0 12/09/2015 hiazide daily. Indications: (PRINZIDE;ZESTORETIC) Hypertension 20-25 mg per tabletIndications: hypertension clonAZEpam (KLONOPIN) 1 0 10/20/2008 0 10/23/2013 mg tablet amitriptyline (ELAVIL) 0 10/20/2008 25 mg tablet documented as of this encounter Plan of Treatment Upcoming Encounters Date Type Specialty Care Team Description 04/14/2022 Office Visit Neurology Cameron Alves MD [facility] [address] [place], [place] [address] (Wo rk) documented as of this encounter Procedures Procedure Name Priority Date/Time Associated Diagnosis Comme nts XR CERVICAL SPINE 2 Routine 11/21/2012 3:06 PM Closed C1 fract ure Results for this OR 3 VIEWS EDT procedure are i n the results section. documented in this encounter Results XR Cervical Spine 3 [...] of the C1 fracture. Familia Alfaro MD IMG DX ORDERABLES documented in this encounter Visit Diagnoses Diagnosis Closed C1 fracture Closed fracture of first cervical verteb ra without mention of spinal cord injury documented in this encounter Care Teams Rn Discharge Relationship Specialty Start Date End Date Charmaine Ayala MD PCP - General 11/21/12 02/28/13 [address] [place] [address] documented as of this encounter
--- OUTSIDE RECORDS SUMMARY | 2022-03-18 11:37 | XMS_ITS | Encounter Summary ---
:1970 Author Organization [facility] [place] [address] Care Team Providers Name Role Phone Sara Zabala JOSE Primary Care Provider [phone] Encounter Details Date Type Department Care Team Description 10/27/2011 [place] [facility] [place] [facility] [place] [address] Social History Tobacco Use Types Packs/Day Years Used Date Never Assessed Sex Assigned at Date Recorded Not on file documented as of this encounter Medications at Time of Discharge Medication Sig Dispensed Refills Start Date End Date cyclobenzaprine (FLEXERIL) 10 M/2 to 1 0 03/0 02/200909/25/2012 10 mg tablet tablet, PO, Three [...] Diagnosis Comme nts MAMMO BREAST US Routine 10/27/2011 3:05 PM Breast pain Result s for this LIMITED EDT procedure are i n the results section. documented in this encounter Results Mammo breast US unilateral [...] Mastodynia documented in this encounter Care Teams Electrician Helper [employer]otive Relationship Specialty Start Date End Date Sara Zabala APRN PCP - General 07/08/10 09/22/[address] [place] [id number] documented as of this encounter
--- OUTSIDE RECORDS SUMMARY | 2022-03-18 11:37 | XMS_ITS | Encounter Summary ---
:1970 Author Organization [facility] [place] [address] Care Team Providers Name Role Phone Sara Zabala JOSE Primary Care Provider [phone] Encounter Details Date Type Department Care Team Description 12/31/2011 Hospital Encounter Mammography at [facility] Abnormal ultrasound of [facility] [address] Social History Tobacco Use Types Packs/Day [...] Neurology Cameron Alves MD [facility] [address] [place] [address] (Wo rk) documented as of this encounter Procedures Procedure Name Priority Date/Time Associated Comments Diagnosis SURGICAL PATHOLOGY Routine 12/31/2011 12:09 PM Re sults for this REPORT EDT procedure are i n the results section. MAMMO DIRECT DIGITAL Routine 12/31/2011 11:59 AM Abnormal ultr asound Results for this UNILATERAL EDT of breast procedure are i n the results section. documented in this encounter Results SURGICAL PATHOLOGY REPORT (12/31/2011 12:09 PM EDT) Component Value Ref Test Analysis Performed At [facility] Range Method Time Signature Surgical CERNER Pathology ? [facility] Report ? Provider: ?? OANH GARCIA Pt. Name: ?? CAROLINA ARAGON ?KRISTEN Hinojosa ? Acc #: ?[id number] ?Pt. MRN: ?[id number] ? Col Date: ?? 2 ? /Sex: ?1970,(41 years),Female ? Rec Date: ?? 12/31/2011 ? LOC: ?3S ? SURGICAL PATHOLOGY ? ---Pathologic Diagnosis--- ? Needle biopsies: ?Right breast. ? Diagnosis: ?1. Fibroadenoma. ? 2. Mild usual ductal hyperplasia and cysts. ? Microcalcifications: ??N/A. ? CR-0 ? 01/01/12 ? ARTI ? 01/01/12 Verified by: ? Cari FRANK, Christopher Cleary ? Pathologist ? (Electronic Si gnature) ? The attending pathologist whose signature appears o n this report has ? reviewed all diagnostic slides and has edited the ainsley ss and/or ? microscopic portion of the report in rendering the fi nal pathologic ? diagnosis. ? ---Comment--- ? Dr. Stuart reviewed s lide A1-2. ??Additional sections (A1) were examined. ? ---Microscopic Description--- ? Slides reviewed, microscopic description not recorded . ? ---Gross Description--- ? Labeled/Fixative: ? Right breast, formalin. ? Qty/Size/Weight: ?Multiple cylindrical portions of dangelo-white soft ? tissue, each approximately 1.4 x 0.1 cm. ? Sections/Processing: ??(T1) ??aje/PPS ? ---Clinical Information--- ? Specimen Submitted: ? A - Right breast ? Clinical History/Diagnosis: ? MRI lesion US likely FA; FA, IDC, PASH, fibrosis Specimen (Source) Anatomical Collection Method Collection Time Re ceived Time Location / / Volume Laterality 12/31/2011 12:09 PM EDT Kristen Garcia MD PATHOLOGY/CYTOLOGY ORD ERABLES Performing Organization Address City/State/ZIP [place] [address] [place] Mammo direct digital unilateral (12/31/2011 11:59 AM EDT) Anatomical Region Laterality Modality Breast N/A Mammography Specimen (Source) Anatomical Collection Method Collection Time Re ceived Time Location / / Volume Laterality 12/31/2011 11:59 AM EDT Impressions 01/05/2012 9:07 AM EDT Impression: concordant Recommendation: routine screening ??results and recommnedations discussed with the patient by phone 5-21-12 I was present with the resident, Dr. Kadie ocampo, for the candelaria component(s) of the procedure and otherwise remained immedia tely available for the duration of the procedure. I attest to having personally viewed the images/test and approve the above interpretation. Cell phone: [phone] Film and interpretation reviewed by the attending [...] and approve the above interpretation. Cell phone: [phone] Film and interpretation reviewed by the attending Kristen Garcia MD IMG MAMMO ORDERABLES documented in this encounter Visit Diagnoses Diagnosis Abnormal ultrasound of breast Other (abnormal) findings on radiologica l examination of breast documented in this encounter Care Teams Locomotive Supervisor Relationship Specialty Start Date End Date Sara Zabala, [employer] SAVINGS SECURITIES TRADER PCP - General 07/08/10 09/22/[address] [place] [id number] documented as of this encounter
--- OUTSIDE RECORDS SUMMARY | 2022-03-18 11:37 | XMS_ITS | Encounter Summary ---
:1970 Author Organization [facility] [place] [address] Care Team Providers Name Role Phone Charmaine Ayala MD Primary Care Provider Encounter Details Date Type Department Care Team Description 11/21/[address] [facility] at [facility] Closed C1 fracture; [facility] Closed TB I (traumatic brain injury) [place] [address] Social History Tobacco Use Types Packs/Day [...] Visit Neurology Cameron Alves MD [facility] er [address], [place] [address] (Wo rk) documented as of this encounter Procedures Procedure Name Priority Date/Time Associated Diagnosis Comme nts CT HEAD AND Routine 11/21/2012 4:59 PM Closed C1 fra cture Results for this CERVICAL SPINE WO EDT Closed TBI procedure are in CONTRAST (traumatic brain the results injury) section. documented in this encounter Results CT head & cervical spine WO contrast [...] [facility] Technique Noncontrast CT of [...] healed. No new fractures. Familia Alfaro MD IMG CT ORDERABLES documented in this encounter Visit Diagnoses Diagnosis Closed C1 fracture Closed fracture of first cervical verteb ra without mention of spinal cord injury Closed TBI (traumatic brain injury) Intracranial injury of other and unspeci fied nature, without mention of open intracranial wound, unspecified state of consciousness documented in this encounter Care Teams Senior Staff Consultant Relationship Specialty Start Date End Date Charmaine Ayala MD PCP - General 11/21/12 02/28/13 [address] [place] [address] documented as of this encounter
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
--- OUTSIDE RECORDS SUMMARY | 2022-03-18 11:37 | XMS_ITS | Encounter Summary ---
:1970 Author Organization [place] [place] [address] Care Team Providers Name Role Phone Charmaine Ayala MD Primary Care Provider Encounter Details Date Type Department Care Team Description 01/16/2013 Hospital Encounter XRay at [facility] Closed C1 fracture [address] [place] [address] [place] [address] Social History Tobacco Use Types Packs/Day [...] Date End Date celecoxib (CELEBREX) 200 Take 200 mg by mouth. 0 08/26/2012 03/08/2017 mg Capsule omeprazole (PRILOSEC) 20 TAKE 1 CAPSULE BY 0 12/1405/12/2017 mg Capsule, Delayed MOUTH DAILY FOR Release(E.C.) STOMACH cyclobenzaprine Take 1 tablet by 0 06/2014 (FLEXERIL) 10 mg tablet mouth as needed. amitriptyline (ELAVIL) Take 25 mg by mouth 0 10/23/2013 25 mg tablet nightly as needed. clonAZEpam (KLONOPIN) 1 Take 1 mg by mouth 2 0 10/23/2013 mg tablet times daily. Acetaminophen 650 mg Tab Take 650 mg by mouth 30 tablet 0 0 09/25/2012 11/16/2013 every 4 hours as needed (for MILD pain). celecoxib (CELEBREX) 200 Take 200 mg by mouth 0 10/23/2013 mg capsuleIndications: 2 times daily. psoriatic arthritis Indications: psoriatic arthritis lisinopril-hydrochloroth Take 1 tablet by 0 12/09/2015 iazide mouth daily. (PRINZIDE;ZESTORETIC) Indications: 20-25 mg per Hypertension tabletIndications: hypertension clonAZEpam (KLONOPIN) 1 0 10/20/2008 0 10/23/2013 mg tablet amitriptyline (ELAVIL) 0 10/20/2008 25 mg tablet documented as of this encounter Plan of Treatment Upcoming Encounters Date Type Specialty Care Team Description 04/14/2022 Office Visit Neurology Cameron Alves MD [facility] [address], [place] [address] (Wo rk) documented as of this encounter Procedures Procedure Name Priority Date/Time Associated Diagnosis Comme nts XR CERVICAL SPINE Routine 01/16/2013 1:24 PM Closed C1 fractur e Results for this FLEXION EXTENSION EDT procedure are in ONLY the results section. documented in this encounter Results XR cervical spine flexion [...] injury documented in this encounter Care Teams Control Systems Developer Relationship Specialty Start Date End Date Charmaine Ayala MD PCP - General 11/21/12 02/28/[address] [place] [address] documented as of this encounter
--- OUTSIDE RECORDS SUMMARY | 2022-03-18 11:37 | XMS_ITS | Encounter Summary ---
:1970 Author Organization [place] [address] Care Team Providers Name Role Phone Unknown Primary Care Provider Unavailable Encounter Details Date Type Department Care Team Description 09/23/2012 External Results XRay at [facility] Radha Barkley[address] [place] [address] EMERGENCY DEPT [phone] [address] [place], [place] [address] (Wo rk) Social History Tobacco Use Types [...] MD [facility] er [address] [place], [place] [address] (Wo rk) documented as of this encounter Procedures Procedure Name Priority Date/Time Associated Diagnosis Comme nts CT SCAN (SCAN) Routine 09/23/2012 documented in this encounter Results Scan Doc: CT Scan (09/23/2012) Anatomical Region Laterality Modality Other Narrative This result has an attachment that is no t available. Radha Barkley MD MEDIA MGR SCAN EXT ORDR/RSLT documented in this encounter Visit Diagnoses Not on filedocumented in this encounter Care Teams Exercise Manager Relationship Specialty Start Date End Date Unknown PCP - General 09/23/12 11/20/12 None documented as of this encounter
--- OUTSIDE RECORDS SUMMARY | 2022-03-18 11:37 | XMS_ITS | Encounter Summary ---
:1970 Author Organization [facility] [place] [address] Care Team Providers Name Role Phone Charmaine Ayala MD Primary Care Provider Encounter Details Date Type Department Care Team Description 01/16/2013 Hospital Encounter XRay at [facility] Closed C1 fracture [address] [place] [address] [place] [address] Social History Tobacco Use Types Packs/Day [...] 04/14/2022 Office Visit Neurology Cameron Alves MD [facility] [address], [place] [address] (Wo rk) documented as of this encounter Procedures Procedure Name Priority Date/Time Associated Diagnosis Comme nts XR CERVICAL SPINE 2 Routine 01/16/2013 11:27 AM Closed C1 frac ture Results for this OR 3 VIEWS EDT [...] age. Familia Alfaro MD IMG DX ORDERABLES documented in this encounter Visit Diagnoses Diagnosis Closed C1 fracture Closed fracture of first cervical verteb ra without mention of spinal cord injury documented in this encounter Care Teams Flasher Adjuster Relationship Specialty Start Date End Date Charmaien Ayala MD PCP - General 11/21/12 02/28/13 [address] [place] [address] documented as of this encounter
--- OUTSIDE RECORDS SUMMARY | 2022-03-18 11:37 | XMS_ITS | Encounter Summary ---
:1970 Author Organization [facility] [place] [address] Care Team Providers Name Role Phone Charmaine Ayala MD Primary Care Provider Encounter Details Date Type Department Care Team Description 11/21/2012 Orders Only Neurosurgery at [facility] Carolina Okeefe, Closed C1 fracture [facility] INTRANET SPECIALIST (Primary Dx) [place] [address] NEUROSURGERY [place], [place] [address] Social History Tobacco Use Types [...] MD [facility] [place] [address] (Wo rk) documented as of this encounter Visit Diagnoses Diagnosis Closed C1 fracture - Primary Closed fracture of first cervical verteb ra without mention of spinal cord injury documented in this encounter Care Teams Stonehand Relationship Specialty Start Date End Date Charmaine Ayala MD PCP - General 11/21/12 02/28/13 [address] [place] [address] documented as of this encounter
--- OUTSIDE RECORDS SUMMARY | 2022-03-18 11:37 | XMS_ITS | Encounter Summary ---
:1970 Author Organization [facility] [place] [address] Care Team Providers Name Role Phone Sara Zabala VEHICLE DYNAMICS ENGINEER Primary Care Provider [phone] Encounter Details Date Type Department Care Team Description 12/31/2011 Orders Only Radiology Jonathan Garcia, [facility] [place] [address] [facility] [phone] DIAGNOSTIC RADIO [place], [place] [address] (Wo rk) Social History Tobacco Use Types Packs/Day Years Used Date Never Assessed Sex Assigned at Date Recorded Not on file documented as of this encounter Progress Notes Kristen Espinoza MD - 12/31/2011 8:22 AM EDT Procedure date: today Procedure type: right breast US guided biopsy Special Instructions: NONE Allergies: Review of [...] Visit Neurology Cameron Alves MD [facility] er [place], [place] [address] (Wo rk) documented as of this encounter Visit Diagnoses Not on filedocumented in this encounter Care Teams Optoelectronics Engineer Relationship Specialty Start Date End Date Sara Zabala APRN PCP - General 07/08/10 09/22/[address] [place] [address] documented as of this encounter
--- OUTSIDE RECORDS SUMMARY | 2022-03-18 11:37 | XMS_ITS | Encounter Summary ---
:1970 Author Organization [facility] [place] [address] Care Team Providers Name Role Phone Sara Zabala JOSE Primary Care Provider [phone] Encounter Details Date Type Department Care Team Description 11/24/2011 Orders Only Radiology Jonathan Scott, Abnormal ultrasound of [facility] Kristen Hinojosa MD breast (Primary Dx) [place] [address] DIAGNOSTIC [phone] RADIOLOGY [place], [place] [address] (Wo rk) Social History Tobacco Use Types Packs/Day Years Used Date Never Assessed Sex Assigned at Date Recorded Not on file documented as of this encounter Plan of Treatment Upcoming Encounters Date Type Specialty Care Team Description 04/14/2022 Office Visit Neurology Cameron Alves MD [facility] er [address] [place] [address] (Wo rk) documented as of this encounter Results Mammo direct digital unilateral (12/31/2011 11:59 AM [...] and approve the above interpretation. Cell phone: [phone] Film and interpretation reviewed by the attending [...] and approve the above interpretation. Cell phone: [phone] Film and interpretation reviewed by the attending Kristen Scott MD IMG MAMMO ORDERABLES Mammo- US biopsy (12/31/2011 11:56 AM EDT) [...] and approve the above interpretation. Cell phone: [phone] Film and interpretation reviewed by the attending [...] and approve the above interpretation. Cell phone: [phone] Film and interpretation reviewed by the attending Kristen Scott MD IMG MAMMO ORDERABLES documented in this encounter Visit Diagnoses Diagnosis Abnormal ultrasound of breast - Primary Other (abnormal) findings on radiologica l examination of breast Abnormal ultrasound of breast Other (abnormal) findings on radiologica l examination of breast Abnormal ultrasound of breast Other (abnormal) findings on radiologica l examination of breast documented in this encounter Care Teams Detective Sergeant Relationship Specialty Start Date End Date Sara Zabala APRN PCP - General 07/08/10 09/22/12 [address] [place] [address] documented as of this encounter
== END 2022-02-25 11:25 | disposition home or self-care (01) ==
LOC: NCHCN 11:24
PROVIDERS: PCP Internal Medicine Gastroenterology; Visit Provider Family Medicine
DX: Z11.9 Encounter for screening for infectious and parasitic diseases, unspecified (principal); Z13.220 Encounter for screening for lipoid disorders; Z13.0 Encounter for screening for diseases of the blood and blood-forming organs and certain disorders involving the immune mechanism
CPT/HCPCS: 80061; 86803; 83036; 85025

== ENCOUNTER 2022-10-15 19:11 | Emergency (ER) | payer OTHER, SELFPAY ==
[2022-10-15 19:15] VITALS: BP 134/98; PULSE 98; RESP 16; TEMP 35.7; O2SAT 95
--- NOTE | 2022-10-15 19:28 | NUR.NOTE ---
refuses to take rings off. says they have not come off since she has gained weight-a few years. they are her grandmother's wedding rings. are not cutting off circulation, able to twist them around.Nursing Note:
--- NOTE | 2022-10-15 19:30 | DI.RAD_ITS ---
Exam(s) XR WRIST LT COMPLETE EXAM: XR WRIST LT COMPLETE CLINICAL HISTORY: pain and swelling. TECHNIQUE: 2D digital imaging was performed. COMPARISON: No exams were available for comparison FINDINGS: 3 views There is a nondisplaced minimally impacted transverse fracture in the distal radius. No dorsal angul ation at the fracture site. There is also fracture of the base of the ulnar styloid mild displacemen t. Scaphoid intact. Scapholunate distance is normal. No other fractures identified. IMPRESSION: Nondisplaced fracture distal radius. Also fracture ulnar styloid DATA REPOSITORY: RADIATION DOSE DELIVERED:
--- NOTE | 2022-10-15 19:49 | ED.GENADUL_ITS ---
Discharge Plan Disposition Patient Disposition: Home Condition: Stable Discharge Details Clinical Impression: Fracture of wrist Primary Care Provider: Tushar Urban ED Provider: Ellie Lea Home Meds and New Rx's Prescriptions: Continued topiramate 200 mg tablet 200 mg DAILY clonazepam 0.5 mg tablet 0.5 mg TID PRN olanzapine 2.5 mg tablet 2.5 mg QHS duloxetine 60 mg capsule,delayed release(DR/EC) 60 mg PO BID lisinopril 20 mg tablet 20 mg PO DAILY Patient Comments: TAKE 1 TABLET BY MOUTH EVERY DAY Aimovig Autoinjector 140 mg/mL auto-injector SUBCUT .MONTHLY Discharge Instructions Instructions: Wrist Fracture in Adults (ED) Additional Instructions: Take ibuprofen and Tylenol as needed for pain Follow-up with orthopedics Wear your splint Return earlier should you have new or worsening complaints Referrals: Riki Davila MD [ [facility] STAFF PHYSICIAN] - Medical Decision Making Patient presents for persistent pain and swelling to left wrist, neurovascularly intact, x-ray shows evidence of fracture to radius per my interpretation, samantha horvath radiology overview no significant angulation, placed in splint and referred to Ortho Of note, patient has a ring in place on her left fourth digit, she adamantly refuses removal of this ring, we discussed risk associated with this decision and she consents to these risks Return precautions reviewed in detail and patient expressed understanding HPI General Date/Time Provider Initiated Documentation: 10/15/22 19:39 . HPI Narrative: This 62-year-old female presents with report of left wrist pain. She states she fell on ice and tried to use her wrist to lift herself. She denies any additional injuries. She states this happened 2-1/2 weeks ago. She presents today secondary to persistence of complaints. Denies any paresthesias. Pain with movement of her wrist per patient. Related Data Home Medications Medication Instructions Recorded Confirmed clonazepam 0.5 mg tablet 0.5 mg TID PRN 09/22/21 10/15/22 duloxetine 60 mg capsule,delayed 60 mg PO BID 09/22/21 10/15/22 release olanzapine 2.5 mg tablet 2.5 mg QHS 09/22/21 10/15/22 topiramate 200 mg tablet 200 mg DAILY 09/22/21 10/15/22 erenumab-aooe 140 mg/mL mg subcut .MONTHLY 10/15/22 subcutaneous auto-injector (Aimovig Autoinjector) lisinopril 20 mg tablet 20 mg PO DAILY 10/15/22 10/15/22 Allergies Allergy/AdvReac Type Severity Reaction Status Date / Time No Known Allergies Allergy Unverified 10/15/22 19:19 General Stated Complaint: Orthopedic MAIA: 4 PFSH All Active Problems (Updated 10/15/22 @ 20:09 by LARON Brand) Right ankle sprain (Acute) Fracture of wrist (Acute) Social History Smoking/Tobacco Use Status: Current every day Tobacco Type: cigarettes Smoking risk assessment performed?: Yes Alcohol Intake: never Drug use: Never Substance use type: does not use Do you feel safe at home: Yes Do you feel safe in your relationship?: Yes Exam Narrative Exam Narrative: Patient is fully alert and oriented, she does have a swelling and mild deformity to her left wrist, she is neurovascularly intact, her distal pulses intact, she does have a left ring in place Course Vital Signs Vital signs: Vital Signs Temperature 35.7 C L 10/15/22 19:15 Pulse 98 H 10/15/22 19:15 Respiratory Rate 16 10/15/22 19:15 Blood Pressure 134/98 H 10/15/22 19:15 Pulse Oximetry 95 10/15/22 19:15 Temperature 35.7 C L 10/15/22 19:15 Temperature Source Tympanic 10/15/22 19:15 Pulse 98 H 10/15/22 19:15 Respiratory Rate 16 10/15/22 19:15 Respiratory Effort Normal 10/15/22 19:15 Blood Pressure 134/98 H 10/15/22 19:15 Blood Pressure Position Sitting 10/15/22 19:15 Pulse Oximetry 95 10/15/22 19:15 Oxygen Delivery Method Room Air 10/15/22 19:15 Oxygen Flow Rate 0 10/15/22 19:15 Pain Level 7 10/15/22 19:22
--- NOTE | 2022-10-15 20:50 | DI.VRAD_ITS ---
PROCEDURE INFORMATION: Exam: XR Left Wrist Exam date and time: 10/15/2022 8:03 PM Age: 52 years old Clinical indication: Injury or trauma; Blunt trauma (contusions or hematomas); Wrist; Left; Injury details: Fall 10/04 TECHNIQUE: Imaging protocol: Radiologic exam of the left wrist. Views: 3 or more views. COMPARISON: No relevant prior studies available. FINDINGS: Bones/joints: Transverse, nondisplaced, minimally impacted fracture through distal radial shaft. Age-indeterminate nondisplaced fracture or variant development ulnar styloid Soft tissues: Normal. IMPRESSION: 1. Acute fracture of radius. 2. Age-indeterminate fracture through base of ulnar styloid can not be excluded. Dictated and Authenticated by: Leonel Rendon MD. Ordering:WENDIE Argueta MD
== END 2022-10-15 20:41 | disposition home or self-care (01) ==
PROVIDERS: Emergency Provider Physician Assistant; PCP Internal Medicine Gastroenterology
DX: S52.592A Other fractures of lower end of left radius, initial encounter for closed fracture (principal); W00.0XXA Fall on same level due to ice and snow, initial encounter
CPT/HCPCS: 29125; 99283; 73110; 99284

== ENCOUNTER 2022-10-22 14:37 | Outpatient (CLI) | payer OTHER, SELFPAY ==
--- NOTE | 2022-10-22 10:00 | DI.RAD_ITS ---
Exam(s) XR WRIST LT COMPLETE EXAM: XR WRIST LT COMPLETE INDICATION: Left wrist fracture. COMPARISON: CR,XR XR WRIST LT COMPLETE from 10/15/2022 TECHNIQUE: 2D digital imaging was performed. Three views. FINDINGS: There has been no change in the alignment of the intra-articular fracture of the distal radius or uln ar styloid fracture. Carpal alignment is normal. No new findings. DATA REPOSITORY: RADIATION DOSE DELIVERED:
== END 2022-10-22 14:38 | disposition home or self-care (01) ==
LOC: DIORS 14:38
PROVIDERS: PCP Internal Medicine Gastroenterology; Referring Provider Internal Medicine Gastroenterology; Visit Provider Physician Assistant
DX: S62.102A Fracture of unspecified carpal bone, left wrist, initial encounter for closed fracture (principal); X58.XXXA Exposure to other specified factors, initial encounter
CPT/HCPCS: 73110

== ENCOUNTER 2022-11-02 17:08 | Outpatient (REF) | payer OTHER, SELFPAY ==
[2022-11-07 00:02] LABS: 2-OH-Ethyl-Flurazepam Negative ng/mL (Cutoff: 10); 7-NH-Clonazepam 353 ng/mL (Cutoff: 10); 7-NH-Flunitrazepam Negative ng/mL (Cutoff: 10); Alpha OH-Alprazolam Negative ng/mL (Cutoff: 10); Alpha-OH Midazolam Negative ng/mL (Cutoff: 10); Alpha-OH-Triazolam Negative ng/mL (Cutoff: 10); Alprazolam Negative ng/mL (Cutoff: 10); Benzodiazepines Interpretation Positive.; Chlordiazepoxide Negative ng/mL (Cutoff: 10); Clobazam Negative ng/mL (Cutoff: 10); Clonazepam Negative ng/mL (Cutoff: 10); Diazepam Negative ng/mL (Cutoff: 10); Flurazepam Negative ng/mL (Cutoff: 10); Lorazepam Negative ng/mL (Cutoff: 10); Midazolam Negative ng/mL (Cutoff: 10); Prazepam Negative ng/mL (Cutoff: 10); Temazepam Negative ng/mL (Cutoff: 10); Triazolam Negative ng/mL (Cutoff: 10); Zolpidem Carboxylic acid Negative ng/mL (Cutoff: 10)
== END 2022-11-02 17:09 | disposition home or self-care (01) ==
LOC: NCHCN 17:08
PROVIDERS: PCP Internal Medicine Gastroenterology; Visit Provider Physician Assistant
DX: F13.20 Sedative, hypnotic or anxiolytic dependence, uncomplicated (principal); Z51.81 Encounter for therapeutic drug level monitoring
CPT/HCPCS: 80346

== ENCOUNTER 2022-12-04 10:56 | Outpatient (CLI) | payer OTHER, SELFPAY ==
--- NOTE | 2022-12-04 10:45 | DI.RAD_ITS ---
Exam(s) XR WRIST LT COMPLETE EXAM: XR WRIST LT COMPLETE CLINICAL HISTORY: f/u L WRIST FX. TECHNIQUE: 2D digital imaging was performed. COMPARISON: CR XR WRIST LT COMPLETE from 10/22/2022 FINDINGS: 3 views The fracture in distal radius again noted and exhibits healing. Fracture line is barely visible at t his time. Ulnar styloid fracture is again noted. No significant ulnar variance. Scaphoid and scaph olunate distance unremarkable. IMPRESSION: Further healing at the level of the distal radius fracture. DATA REPOSITORY: RADIATION DOSE DELIVERED:
== END 2022-12-04 10:57 | disposition home or self-care (01) ==
LOC: DIORS 10:56
PROVIDERS: PCP Family Medicine; Referring Provider Family Medicine; Visit Provider Physician Assistant
DX: S52.592D Other fractures of lower end of left radius, subsequent encounter for closed fracture with routine healing; S52.692D Other fracture of lower end of left ulna, subsequent encounter for closed fracture with routine healing; X58.XXXD Exposure to other specified factors, subsequent encounter
CPT/HCPCS: 73110

== ENCOUNTER 2023-01-06 16:07 | Outpatient (REF) | payer OTHER, SELFPAY ==
[2023-01-06 19:43] LABS: Abs Immature Grans 0.03 10^3/uL (0.0-0.06); Absolute Basophil Count 0.05 10^3/uL (0.0-0.2); Absolute Lymphocyte Count 1.84 10^3/uL (1.2-3.4); Absolute Monocyte Count 0.56 10^3/uL (0.1-0.8); Absolute Neutrophil Count 5.32 10^3/uL (1.2-6.7); Basophils % 0.6; Eosinophils % 4.9; HCT 38.4 % (36.0-46.0); HGB 13.2 g/dL (11.2-15.7); Immature Grans % 0.4; Lymphocytes % 22.4; MCH 35.1 pg (27.0-33.0); MCHC 34.4 % (32.0-36.0); MCV 102 fL (80-95); MPV 12.6 fL (8.0-11.0); Monocytes % 6.8; Neutrophils % 64.9; Platelet Count 319 10^3/uL (130-400); RBC 3.76 10^6/uL (3.93-5.22); RDW 12.5 % (11.7-14.6); RDW-SD 47.1 fL
[2023-01-06 20:20] LABS: ALT 39 U/L (14-59); AST 36 U/L (15-37); Albumin 3.7 g/dL (3.4-5.0); Alkaline Phosphatase 325 U/L (46-116); Anion Gap 11.8 mmol/L (3-11); BUN 9 mg/dL (7-18); Bilirubin, Total 0.5 mg/dL (0.2-1.0); CO2 21.2 mmol/L (21.0-32.0); CREATININE 0.8 mg/dL (0.55-1.02); Calcium 9.4 mg/dL (8.5-10.1); Chloride 98 mmol/L (98-107); Estimated GFR 89.71 (mL/min/1.73m2); Glucose 94 mg/dL (74-106); Potassium 3.7 mmol/L (3.5-5.1); Sodium 131 mmol/L (136-145); TSH (W/Ref FT4) 2.43 uIU/mL (0.36-3.74); Total Protein 7.6 g/dL (6.4-8.2); Vitamin B12 826 pg/mL (193-986)
== END 2023-01-06 16:08 | disposition home or self-care (01) ==
LOC: NCHCN 16:07
PROVIDERS: PCP Family Medicine; Visit Provider Family Medicine
DX: D75.89 Other specified diseases of blood and blood-forming organs (principal); F41.9 Anxiety disorder, unspecified; I10 Essential (primary) hypertension
CPT/HCPCS: 80053; 82607; 84443; 85025

== ENCOUNTER 2023-01-08 14:58 | Outpatient (REF) | payer OTHER, SELFPAY | END 2023-01-08 14:59 | disposition home or self-care (01) | LOC: NCHCN 14:58 | PROVIDERS: PCP Family Medicine; Visit Provider Family Medicine | DX: R19.7 Diarrhea, unspecified (principal) | CPT/HCPCS: 87329; 87493 ==

== ENCOUNTER 2023-01-13 17:31 | Emergency (ER) | payer OTHER, SELFPAY ==
[2023-01-13 17:34] VITALS: BP 118/97; PULSE 111; RESP 16; TEMP 37.1; O2SAT 97
--- NOTE | 2023-01-13 18:33 | ED.GENADUL_ITS ---
Discharge Plan Disposition Patient Disposition: Home Discharge Details Clinical Impression: Swelling of left ring finger Primary Care Provider: Travis Torres ED Provider: Robby Leyva Home Meds and New Rx's Prescriptions: Continued topiramate 200 mg tablet 200 mg DAILY clonazepam 0.5 mg tablet 0.5 mg TID PRN olanzapine 2.5 mg tablet 2.5 mg QHS duloxetine 60 mg capsule,delayed release(DR/EC) 60 mg PO BID lisinopril 20 mg tablet 20 mg PO DAILY Patient Comments: TAKE 1 TABLET BY MOUTH EVERY DAY Aimovig Autoinjector 140 mg/mL auto-injector SUBCUT .MONTHLY Discharge Instructions Additional Instructions: You had your ring cut off to relieve the pressure If you develop increased pain in the finger or redness that spreads down the hand return to the emergency department Medical Decision Making 52 yo female states she was bit by a bug a few days ago on her left ring finger and since has had slowly worsening swelling of the finger. She is now unable to remove her ring that she inherited and is unsure of the material. Her left ring finger is swollen, no erythema, no warmth, the ring is not able to be removed manually even with compression. Will proceed with cutting the ring and patient consents. Ring was challenging even with the [employer] ring cutter but was able to remove the ring eventually, patient had relief of pressure sensation and still no erythema, stable for d/c, do not feel any imaging indicated as she has full rom of the finger with intact sensation and no tenderness Differential Diagnosis Differential Diagnosis: swelling, ring stuck HPI General Mode of arrival: ambulatory . Date/Time Provider Initiated Documentation: 01/13/23 17:32 . Limitations to Documentation: no limitations . Information obtained by: patient . History of Present Illness 52 year old F presents to the emergency department with the chief complaint of left ring finger swelling, ring stuck, described as moderate, Patient started experiencing this day(s) (3) and it has been constant. No relieving factors improve symptom(s), No exacerbating factors reported . Patient notes no other symptoms.. Related Data Home Medications Medication Instructions Recorded Confirmed clonazepam 0.5 mg tablet 0.5 mg TID PRN 09/22/21 12/04/22 duloxetine 60 mg capsule,delayed 60 mg PO BID 09/22/21 12/04/22 release olanzapine 2.5 mg tablet 2.5 mg QHS 09/22/21 12/04/22 topiramate 200 mg tablet 200 mg DAILY 09/22/21 12/04/22 erenumab-aooe 140 mg/mL mg subcut .MONTHLY 10/15/22 12/04/22 subcutaneous auto-injector (Aimovig Autoinjector) lisinopril 20 mg tablet 20 mg PO DAILY 10/15/22 12/04/22 Allergies Allergy/AdvReac Type Severity Reaction Status Date / Time No Known Allergies Allergy Unverified 01/13/23 17:37 General Stated Complaint: RashLesion MAIA: 4 Review of Systems All systems reviewed & are unremarkable except as noted in HPI and below Constitutional Constitutional: Denies chills, Denies fever(s) and Denies weakness Cardiovascular Cardiovascular: Denies chest pain and Denies dyspnea Respiratory Respiratory: Denies cough and Denies dyspnea Gastrointestinal Gastrointestinal: Denies abdominal pain, Denies nausea and Denies vomiting Integumentary/Breasts Skin/Breast: Denies rash Neurologic Neurologic: Denies weakness PFSH All Active Problems (Updated 01/13/23 @ 19:08 by Robby Leyva MD) Swelling of left ring finger (Acute) Distal radius fracture, left (Acute 10/15/22) Right ankle sprain (Acute) Social History Smoking/Tobacco Use Status: Current every day Tobacco Type: cigarettes Smoking risk assessment performed?: Yes Alcohol Intake: never Drug use: Never Substance use type: does not use Do you feel safe at home: Yes Do you feel safe in your relationship?: Yes Exam Const General: no acute distress Orientation: alert [facility] Head: normal to inspection Ears: external ears normal General nose exam: external nose normal Mouth: moist mucous membranes Eyes General: appearance normal, both eyes and all related structures Neck Neck: normal visual inspection Resp Effort & Inspection: normal respiratory effort and able to speak in complete sentences Cardio Rate: regular rate Skin General skin exam: no rashes or lesions noted Neuro General: patient alert and patient oriented x3 Extrem General: capillary refill normal Psych Mental Status: mental status grossly normal Course Vital Signs Vital signs: Vital Signs Temperature 37.1 C 01/13/23 17:34 Pulse 111 H 01/13/23 17:34 Respiratory Rate 16 01/13/23 17:34 Blood Pressure 118/97 H 01/13/23 17:34 Pulse Oximetry 97 01/13/23 17:34 Temperature 37.1 C 01/13/23 17:34 Temperature Source Skin 01/13/23 17:34 Pulse 111 H 01/13/23 17:34 Respiratory Rate 16 01/13/23 17:34 Blood Pressure 118/97 H 01/13/23 17:34 Blood Pressure Position Sitting 01/13/23 17:34 Pulse Oximetry 97 01/13/23 17:34 Oxygen Delivery Method Room Air 01/13/23 17:34 Oxygen Flow Rate 0 01/13/23 17:34 Pain Level 4 01/13/23 17:34
== END 2023-01-13 19:24 | disposition home or self-care (01) ==
PROVIDERS: Emergency Provider Emergency Medicine; PCP Family Medicine
DX: R60.0 Localized edema (principal); W49.04XA Ring or other jewelry causing external constriction, initial encounter
CPT/HCPCS: 99281; 99282

== ENCOUNTER 2023-02-02 16:59 | Outpatient (REF) | payer OTHER, SELFPAY ==
[2023-02-02 19:10] LABS: Bilirubin Small (Negative); Blood Negative (Negative); Clarity Clear (Clear); Glucose Negative (Negative); Ketones Trace mg/dL (Negative); Leukocyte Esterase Small (Negative); Nitrite Negative (Negative); Specific Gravity 1.015 (1.005-1.025); pH 6.5 (5-8)
[2023-02-02 19:22] LABS: Bacteria Moderate HPF (Negative); C & S Indicated? No/Sq. Contamination; Casts 0-2 Hyaline LPF (Negative); Crystals Negative HPF (Negative); Epithelial Cells Many HPF (Negative); Mucus Negative (Negative); Other Cells Rare Renal (Negative); RBC 0-2 HPF (0-2)
[2023-02-02 19:37] LABS: ALT 41 U/L (14-59); AST 41 U/L (15-37); Albumin 3.8 g/dL (3.4-5.0); Alkaline Phosphatase 274 U/L (46-116); Anion Gap 12.6 mmol/L (3-11); BUN 15 mg/dL (7-18); Bilirubin, Direct 0.2 mg/dL (0.0-0.2); Bilirubin, Total 0.6 mg/dL (0.2-1.0); CO2 23.4 mmol/L (21.0-32.0); CREATININE 0.9 mg/dL (0.55-1.02); Calcium 9.6 mg/dL (8.5-10.1); Chloride 97 mmol/L (98-107); Estimated GFR 77.88 (mL/min/1.73m2); Glucose 75 mg/dL (74-106); NT-proBNP 91 pg/mL (<300); Potassium 3.9 mmol/L (3.5-5.1); Sodium 133 mmol/L (136-145); Total Protein 7.6 g/dL (6.4-8.2)
[2023-02-02 19:48] LABS: GGT 937 U/L (5-55)
[2023-02-04 12:17] LABS: IgA 190 mg/dL (85-499); Interpretation (See Note); Tissue Transglutaminase IgA <1.2 U/mL (<4.0)
== END 2023-02-02 17:00 | disposition home or self-care (01) ==
LOC: NCHCN 16:59
PROVIDERS: PCP Family Medicine; Visit Provider Family Medicine
DX: E87.1 Hypo-osmolality and hyponatremia (principal); R19.7 Diarrhea, unspecified; R74.8 Abnormal levels of other serum enzymes
CPT/HCPCS: 80048; 80076; 82784; 83516; 81003; 81015; 82977; 83880

== ENCOUNTER 2023-03-03 18:10 | Emergency (ER) | payer OTHER, SELFPAY ==
[2023-03-03] VITALS (114 sets, daily range): BP systolic 104–130; BP diastolic 82–92; PULSE 86–112; RESP 6–37; TEMP 37.1; O2SAT 97–100
--- NOTE | 2023-03-03 18:00 | RT.EKG_ITS ---
APPROVED REPORT Exam: Resting ECG Reason for Exam: chest pain Patient Location: E HR:112 bpm ECG Measurements Heart Rate 112 AXIS ID 160 P 65 QRSd 85 QRS 33 QT 315 T 28 QTc 430 Conclusion Sinus tachycardia...rate> 99
[2023-03-03 19:13] LABS: Abs Immature Grans 0.09 10^3/uL (0.0-0.06); Absolute Basophil Count 0.07 10^3/uL (0.0-0.2); Absolute Eosinophil Count 0.35 10^3/uL (0.0-0.7); Absolute Lymphocyte Count 2.83 10^3/uL (1.2-3.4); Absolute Monocyte Count 0.78 10^3/uL (0.1-0.8); Absolute Neutrophil Count 5.78 10^3/uL (1.2-6.7); Basophils % 0.7; Eosinophils % 3.5; HCT 39.3 % (36.0-46.0); HGB 13.7 g/dL (11.2-15.7); Immature Grans % 0.9; Lymphocytes % 28.6; MCH 34.9 pg (27.0-33.0); MCHC 34.9 % (32.0-36.0); MCV 100 fL (80-95); MPV 11.8 fL (8.0-11.0); Monocytes % 7.9; Neutrophils % 58.4; Platelet Count 359 10^3/uL (130-400); RBC 3.92 10^6/uL (3.93-5.22); RDW 12.1 % (11.7-14.6); RDW-SD 44.7 fL
--- NOTE | 2023-03-03 19:25 | NUR.NOTE ---
Nursing Note: gave patient cup of ice water with [employer] verbal permission to later obtain UA as patient states she cannot urinate currently
[2023-03-03 19:33] LABS: ALT 33 U/L (14-59); AST 35 U/L (15-37); Alkaline Phosphatase 208 U/L (46-116); Anion Gap 14.7 mmol/L (3-11); BUN 8 mg/dL (7-18); Bilirubin, Total 0.4 mg/dL (0.2-1.0); CO2 20.3 mmol/L (21.0-32.0); CREATININE 0.9 mg/dL (0.55-1.02); Calcium 9.6 mg/dL (8.5-10.1); Chloride 95 mmol/L (98-107); Estimated GFR 77.88 (mL/min/1.73m2); Glucose 72 mg/dL (74-106); Lipase 38 U/L (16-77); Potassium 3.3 mmol/L (3.5-5.1); Sodium 130 mmol/L (136-145); Total Protein 8.4 g/dL (6.4-8.2); Troponin I < 50 ng/L (<or=60)
--- NOTE | 2023-03-03 19:40 | ED.GENADUL_ITS ---
Discharge Plan Disposition Patient Disposition: Home Condition: Stable Discharge Details Clinical Impression: Pleurisy Primary Care Provider: Travis Torres ED Provider: Ellie Lea Home Meds and New Rx's Prescriptions: New prednisone 20 mg tablet 20 mg PO DAILY Qty: 8 0RF Rx Instructions: take 2 tabs for 3 days, followed by 1 tab for 2 days potassium chloride 20 mEq tablet extended release 20 meq PO DAILY Qty: 10 0RF Continued topiramate 200 mg tablet 200 mg PO DAILY clonazepam 0.5 mg tablet 0.5 mg TID PRN olanzapine 2.5 mg tablet 2.5 mg QHS Patient Comments: states no longer taking duloxetine 60 mg capsule,delayed release(DR/EC) 60 mg PO BID lisinopril 20 mg tablet 20 mg PO DAILY Patient Comments: TAKE 1 TABLET BY MOUTH EVERY DAY Aimovig Autoinjector 140 mg/mL auto-injector 140 mg SUBCUT .MONTHLY Discharge Instructions Instructions: Pleurisy (ED) Additional Instructions: Take the prednisone as prescribed Follow-up with your doctor at your scheduled appointment Please return earlier should you have new or worsening complaints Referrals: Travis Torres [Primary Care Provider] - Medical Decision Making 52-year-old female presents with intermittent pleuritic chest pain, D-dimer negative, diagnostic labs do not show evidence of acute abnormality, afebrile and nontoxic CBC is within normal limits, CMP shows mild hypokalemia, mild hyponatremia, gap of 14, likely consistent with dehydration, will give 1 L of NS Denies any current chest pain, pain is pleuritic only per patient EKG does not show evidence of acute abnormality, will order chest x-ray for further evaluation, chest x-ray does not show evidence of acute abnormality, will treat patient with prednisone for several days that she is unable to take ibuprofen with her history of lisinopril use She discharged home in stable vitals in stable condition and will follow up with her primary care physician at her scheduled appointment Return precautions reviewed and patient expressed understanding HPI General Date/Time Provider Initiated Documentation: 03/03/23 18:12 . HPI Narrative: This 52-year-old female presents with report of left-sided chest pain intermittently for the past several weeks. Denies any chest pain currently. Denies any shortness of breath. Denies any exogenous hormones. Denies any calf pain or swelling, recent flights, surgeries, long drives, or history of coagulopathy. Denies any hemoptysis or other respiratory symptoms. Related Data Home Medications Medication Instructions Recorded Confirmed clonazepam 0.5 mg tablet 0.5 mg TID PRN 09/22/21 03/03/23 duloxetine 60 mg capsule,delayed 60 mg PO BID 09/22/21 03/03/23 release olanzapine 2.5 mg tablet 2.5 mg QHS 09/22/21 12/04/22 topiramate 200 mg tablet 200 mg PO DAILY 09/22/21 03/03/23 erenumab-aooe 140 mg/mL 140 mg subcut .MONTHLY 10/15/22 03/03/23 subcutaneous auto-injector (Aimovig Autoinjector) lisinopril 20 mg tablet 20 mg PO DAILY 10/15/22 03/03/23 potassium chloride 20 mEq 20 meq PO DAILY #10 tabs 03/03/23 tablet,extended release prednisone 20 mg tablet 20 mg PO DAILY #8 tabs 03/03/23 Previous Rx's Medication Instructions Recorded potassium chloride 20 mEq 20 meq PO DAILY #10 tabs 03/03/23 tablet,extended release prednisone 20 mg tablet 20 mg PO DAILY #8 tabs 03/03/23 Allergies Allergy/AdvReac Type Severity Reaction Status Date / Time No Known Allergies Allergy Unverified 03/03/23 18:18 General Stated Complaint: Chest Pain MAIA: 3 PFSH All Active Problems (Updated 03/03/23 @ 20:47 by LARON Brand) Pleurisy (Acute) Distal radius fracture, left (Acute 10/15/22) Right ankle sprain (Acute) Social History Smoking/Tobacco Use Status: Current every day Tobacco Type: cigarettes Smoking risk assessment performed?: Yes Alcohol Intake: never Drug use: Never Substance use type: does not use Do you feel safe at home: Yes Do you feel safe in your relationship?: Yes Course Vital Signs Vital signs: Vital Signs Temperature 37.1 C 03/03/23 18:12 Pulse 111 H 03/03/23 18:12 Respiratory Rate 18 03/03/23 18:12 Blood Pressure 126/82 03/03/23 18:12 Pulse Oximetry 100 03/03/23 18:12 Temperature 37.1 C 03/03/23 18:12 Temperature Source Skin 03/03/23 18:12 Pulse 100 H 03/03/23 19:01 Respiratory Rate 12 03/03/23 19:15 Respiratory Effort Normal 03/03/23 19:16 Blood Pressure 124/87 03/03/23 19:01 Blood Pressure Position Sitting 03/03/23 18:12 Pulse Oximetry 98 03/03/23 19:15 Oxygen Delivery Method Room Air 03/03/23 18:12 Oxygen Flow Rate 0 03/03/23 18:12 Pain Level 8 03/03/23 18:12 Lab/Test Results Lab/Test Results: Laboratory Tests Range/Units 03/03/23 03/03/23 18:17 18:17 WBC (4.4-10.8) 10^3/uL 9.90 RBC (3.93-5.22) 10^6/uL 3.92 L Hgb (11.2-15.7) g/dL 13.7 Hct (36.0-46.0) % 39.3 MCV (80-95) fL 100 H MCH (27.0-33.0) pg 34.9 H MCHC (32.0-36.0) % 34.9 RDW (11.7-14.6) % 12.1 Plt Count (130-400) 10^3/uL 359 MPV (8.0-11.0) fL 11.8 H Immature Gran % 0.9 Neutrophils % 58.4 Lymphocytes % 28.6 Monocytes % 7.9 Eosinophils % 3.5 Basophils % 0.7 Nucleated RBC % (0.0-0.3) % 0.0 Absolute Neutrophils (1.2-6.7) 10^3/uL 5.78 Absolute Lymphocytes (1.2-3.4) 10^3/uL 2.83 Absolute Monocytes (0.1-0.8) 10^3/uL 0.78 Absolute Eosinophils (0.0-0.7) 10^3/uL 0.35 Absolute Basophils (0.0-0.2) 10^3/uL 0.07 Sodium (136-145) mmol/L 130 L Potassium (3.5-5.1) mmol/L 3.3 L Chloride (98-107) mmol/L 95 L Carbon Dioxide (21.0-32.0) mmol/L 20.3 L Anion Gap (3-11) mmol/L 14.7 H BUN (7-18) mg/dL 8 Creatinine (0.55-1.02) mg/dL 0.9 Est GFR (CKD-EPI 2020) (mL/min/1.73m2) 77.88 Glucose (74-106) mg/dL 72 L Calcium (8.5-10.1) mg/dL 9.6 Total Bilirubin (0.2-1.0) mg/dL 0.4 AST (15-37) U/L 35 ALT (14-59) U/L 33 Alkaline Phosphatase (46-116) U/L 208 H Troponin I (<or=60) ng/L < 50 Total Protein (6.4-8.2) g/dL 8.4 H Albumin (3.4-5.0) g/dL 4.0 Lipase (16-77) U/L 38
[2023-03-03] MEDS: Normal Saline 1,000 ML 1000 ML IV (19:49)
[2023-03-03 19:50] LABS: D-Dimer 313 ng/mlFEU (<500)
[2023-03-03 19:56] LABS: Bilirubin Negative (Negative); Blood Negative (Negative); Clarity Clear (Clear); Glucose Negative (Negative); Ketones 15 mg/dL (Negative); Leukocyte Esterase Negative (Negative); Nitrite Negative (Negative); Urobilinogen 0.2 mg/dL (Up to 0.2)
--- NOTE | 2023-03-03 20:00 | DI.RAD_ITS ---
Exam(s) XR CHEST 2V PA LATERAL EXAM: XR CHEST 2V PA LATERAL CLINICAL HISTORY: left chest pain TECHNIQUE: 2D digital imaging was performed of the chest. Two images were obtained. PA and lateral views were obtained. COMPARISON: No exams were available for comparison FINDINGS: MEDIASTINUM: Normal. HEART: Normal. PULMONARY VASCULATURE: Normal. LUNGS: Clear. PLEURAL SPACE: No pleural effusion or pneumothorax. BONE:Within normal limits for the patient's age. OTHER FINDINGS:Normal. IMPRESSION: No acute pulmonary findings. DATA REPOSITORY: RADIATION DOSE DELIVERED:
[2023-03-03] MEDS: predniSONE 20 MG TAB 40 MG PO (20:55)
--- NOTE | 2023-03-03 21:15 | DI.VRAD_ITS ---
PROCEDURE INFORMATION: Exam: XR Chest Exam date and time: 03/03/2023 8:32 PM Age: 52 years old Clinical indication: Left-sided; Patient HX: Left sided chest pain TECHNIQUE: Imaging protocol: Radiologic exam of the chest. Views: 2 views. COMPARISON: CT THORAX ABDOMEN CTA 09/22/2021 1:34 PM FINDINGS: Lungs: Unremarkable. No consolidation. Pleural spaces: Unremarkable. No pleural effusion. No pneumothorax. Heart/Mediastinum: Unremarkable. No cardiomegaly. Bones/joints: Unremarkable. IMPRESSION: No acute findings. Dictated and Authenticated by: Leonel Rendon MD. Ordering:WENDIE Argueta MD
== END 2023-03-03 21:03 | disposition home or self-care (01) ==
PROVIDERS: Emergency Provider Physician Assistant; PCP Family Medicine
DX: R09.1 Pleurisy (principal); R00.0 Tachycardia, unspecified; E87.6 Hypokalemia; E87.1 Hypo-osmolality and hyponatremia; E86.0 Dehydration; F17.210 Nicotine dependence, cigarettes, uncomplicated
CPT/HCPCS: 80053; 83690; 93005; 96360; 99285; 71046; 81003; 84484; 85025; 85379; 93010; 99283; J7512

== ENCOUNTER 2023-05-06 14:41 | Emergency (ER) | payer OTHER, SELFPAY ==
[2023-05-06 14:54] VITALS: BP 123/93; PULSE 64; RESP 20; TEMP 37.1; O2SAT 99
--- NOTE | 2023-05-06 16:15 | DI.RAD_ITS ---
Exam(s) XR RIBS BI INCLUDE CHEST EXAM: XR RIBS BI INCLUDE CHEST CLINICAL HISTORY: ETOH, fall, B low and mid rib pain TECHNIQUE: 2D digital imaging was performed. COMPARISON: CR,XR XR CHEST 2V PA LATERAL from 03/03/2023 FINDINGS: MEDIASTINUM: Normal. HEART: Normal. PULMONARY VASCULATURE: Normal. LUNGS: Linear atelectasis at the right lung base. Clear. PLEURAL SPACE: No pleural effusion or pneumothorax. BONE:Normal. BILATERAL RIBS: Nondisplaced fractures of the right 7th and 8th ribs. Mildly fractures of the latera l left 4th through 7th rib fractures. OTHER FINDINGS:Normal. IMPRESSION: 1. No acute pulmonary findings. 2. Bilateral nondisplaced or minimally displaced rib fractures. DATA REPOSITORY: RADIATION DOSE DELIVERED:
--- NOTE | 2023-05-06 16:28 | W.ED.GENAD ---
Discharge Plan Disposition Patient Disposition: Home Discharge Details Clinical Impression: Multiple rib fractures involving four or more ribs Primary Care Provider: Travis Torres ED Provider: Nataly Shay Home Meds and New Rx's Prescriptions: New Relafen DS 1,000 mg tablet 1,000 mg PO BID Qty: 14 0RF tramadol 50 mg tablet 50 mg PO Q6H PRNQty: 30 0RF Continued topiramate 200 mg tablet 200 mg PO DAILY clonazepam 0.5 mg tablet 0.5 mg TID PRN olanzapine 2.5 mg tablet 2.5 mg QHS Patient Comments: states no longer taking duloxetine 60 mg capsule,delayed release(DR/EC) 60 mg PO BID lisinopril 20 mg tablet 20 mg PO DAILY Patient Comments: TAKE 1 TABLET BY MOUTH EVERY DAY Aimovig Autoinjector 140 mg/mL auto-injector 140 mg SUBCUT .MONTHLY prednisone 20 mg tablet 20 mg PO DAILY Qty: 8 0RF Rx Instructions: take 2 tabs for 3 days, followed by 1 tab for 2 days potassium chloride 20 mEq tablet extended release 20 meq PO DAILY Qty: 10 0RF Discharge Instructions Instructions: Rib Fracture (ED) Additional Instructions: You for minimally displaced rib fractures on the left, numbers 4, 5, 6, and 7. You may stop taking the ibuprofen. Take the Relafen instead. You need to cut way down on the amount of alcohol you are drinking. Return to ED for difficulty breathing or chest pain. See your doctor this week as planned to talk about rehab. Medical Decision Making Fractures were discussed with the patient and her son. I do think she needs stronger pain medication but I am concerned about her alcohol abuse. I discussed this with she and her son. The patient states that she has taken tramadol in the past and it has worked. I will have her take this and stop the ibuprofen. I will add Relafen as well. The patient states that she will try to cut down on how much she is drinking this week. She does have an appointment with her doctor this week and has a plan to discuss rehab with her doctor. She will return for difficulty breathing or severe chest pain. Of note, pts. pain was better on d/c. Medical Records Medical records reviewed: Yes I reviewed the patient's medical records. Imaging Data Radiologic Study: Imaging: X-Ray My impression: Patient has no pneumothorax. She has possible nondisplaced right seventh and eighth rib fractures acute to subacute. She also has minimally displaced lateral rib fractures on the left, #4, 5, 6, and 7. This was discussed with the radiologist. HPI General Date/Time Provider Initiated Documentation: 05/06/23 16:19. HPI Narrative: This 52-year-old female patient presents with a chief complaint of bilateral rib pain after falling about 3 or 4 days ago. The patient states that she fell from the ground. She may have fallen on a couple of steps too but not down a flight of steps. She was intoxicated at the time and has a history of alcohol abuse. I can smell alcohol on her breath and she admits to being an alcoholic. She denies difficulty breathing but just says that it hurts to take a breath. This is keeping her up at night. She has no abdominal pain but states it hurts across her mid and lower rib cage bilaterally. Taking a breath or moving certain ways makes this worse. The pain is sharp. The severity is bad. Tylenol and ibuprofen have not helped. Did not knock herself out and denies neck pain. There is no other trauma. Related Data Home Medications Medication Instructions Recorded Confirmed clonazepam 0.5 mg tablet 0.5 mg TID PRN 09/22/21 03/03/23 duloxetine 60 mg capsule,delayed 60 mg PO BID 09/22/21 03/03/23 release olanzapine 2.5 mg tablet 2.5 mg QHS 09/22/21 12/04/22 topiramate 200 mg tablet 200 mg PO DAILY 09/22/21 03/03/23 erenumab-aooe 140 mg/mL 140 mg subcut .MONTHLY 10/15/22 03/03/23 subcutaneous auto-injector (Aimovig Autoinjector) lisinopril 20 mg tablet 20 mg PO DAILY 10/15/22 03/03/23 potassium chloride 20 mEq 20 meq PO DAILY #10 tabs 03/03/23 tablet,extended release prednisone 20 mg tablet 20 mg PO DAILY #8 tabs 03/03/23 nabumetone 1,000 mg tablet 1,000 mg PO BID #14 tabs 05/06/23 (Relafen DS) tramadol 50 mg tablet 50 mg PO Q6H PRN #30 tabs 05/06/23 Previous Rx's Medication Instructions Recorded potassium chloride 20 mEq 20 meq PO DAILY #10 tabs 03/03/23 tablet,extended release prednisone 20 mg tablet 20 mg PO DAILY #8 tabs 03/03/23 nabumetone 1,000 mg tablet 1,000 mg PO BID #14 tabs 05/06/23 (Relafen DS) tramadol 50 mg tablet 50 mg PO Q6H PRN #30 tabs 05/06/23 Allergies Allergy/AdvReac Type Severity Reaction Status Date / Time No Known Allergies Allergy Unverified 05/06/23 14:59 General Stated Complaint: Fall/Non TraumaCriteria MAIA: 4 Review of Systems Constitutional Constitutional: Denies chills, Denies fever(s), Denies headache(s) and Denies weakness Eyes Eyes: Denies diplopia and Reports other (no redness) ENT Ears, Nose, Mouth, and Throat: Denies otalgia, Denies headache(s), Denies nasal congestion, Denies nasal discharge, Denies neck pain and Denies sore throat Cardiovascular Cardiovascular: Reports chest pain, Denies palpitations and Denies dyspnea Respiratory Respiratory: Denies cough, Denies dyspnea and Reports other (hurts to take a breath) Gastrointestinal Gastrointestinal: Denies abdominal pain, Denies diarrhea, Denies nausea and Denies vomiting Genitourinary Genitourinary: Denies dysuria Musculoskeletal Musculoskeletal: Denies myalgias, Denies muscle weakness, Denies neck pain, Denies numbness and Reports other (edema) Comments: AP lower /mid thorax pain Integumentary/Breasts Skin/Breast: Denies change in pigmentation and Denies rash Neurologic Neurologic: Denies headache(s), Denies numbness and Denies weakness Endocrine Endocrine: Denies palpitations PFSH All Active Problems (Updated 05/06/23 @ 18:01 by Nataly Shay MD) Multiple rib fractures involving four or more ribs (Acute) Distal radius fracture, left (Acute 10/15/22) Right ankle sprain (Acute) Social History Smoking/Tobacco Use Status: Current every day Tobacco Type: cigarettes Smoking risk assessment performed?: Yes Alcohol Intake: never Drug use: Never Substance use type: does not use Do you feel safe at home: Yes Do you feel safe in your relationship?: Yes Exam Const General: no acute distress, well developed, well groomed and not in acute distress Nutritional Appearance: well nourished Orientation: alert and oriented x3 [facility] Head: normocephalic and atraumatic Ears: external ears normal Face and sinus: other (Right cheek with old abrasion and ecchymosis; no bony tenderness to palp) Mouth: oropharynx normal and moist mucous membranes Throat: posterior oropharynx normal Eyes Conjunctivae: conjunctivae normal Neck Neck: full ROM, supple and nontender (midline spinal) Chest Chest: normal inspection of the chest and other (TTP midthorax R and low/mid L, no crepitus) Resp Effort & Inspection: normal respiratory effort Auscultation: clear to auscultation bilaterally Cardio Rate: regular rate Rhythm: regular rhythm Heart Sounds: no murmurs and no rubs GI Inspection: normal to inspection Palpation: soft, nontender and other (non distended) Auscultation: normal bowel sounds Back/Spine/Pelvis Back: no CVA tenderness and other (ecchymosis and TTP along L lower rib cage) Cervical Spine: No cervical spinal tenderness Thoracic/Lumbar Spine: No thoracic spinal tenderness and No lumbar spinal tenderness Pelvis: no pain with anterior-posterior compression Skin General skin exam: no rashes or lesions noted and other (pink, warm, dry) Neuro General: patient alert, patient awake and patient oriented x3 Speech: speech normal Motor: other ([place]) Sensory Exam: no sensory deficits noted Extrem General: normal to inspection, full ROM and pedal edema present Psych Mental Status: mental status grossly normal Speech and Movement: speech and movement normal Affect: normal affect Course Vital Signs Vital signs: Vital Signs Temperature 37.1 C 05/06/23 14:54 Pulse 64 05/06/23 14:54 Respiratory Rate 05/06/23 14:54 Blood Pressure 123/93 H 05/06/23 14:54 Pulse Oximetry 99 05/06/23 14:54 Temperature 37.1 C 05/06/23 14:54 Pulse 64 05/06/23 14:54 Respiratory Rate 05/06/23 14:54 Respiratory Effort Normal 05/06/23 14:59 Blood Pressure 123/93 H 05/06/23 14:54 Blood Pressure Position Sitting 05/06/23 14:54 Pulse Oximetry 99 05/06/23 14:54 Oxygen Delivery Method Room Air 05/06/23 14:54 Oxygen Flow Rate 0 05/06/23 14:54 Pain Level 8 05/06/23 14:54 PAWSS Have you Been Recently Intoxicated or Drunk Within the Last 30 days?: Yes Have you Ever Experienced Previous Episodes of Alcohol Withdrawal?: Yes Have you ever Experienced Withdrawal Seizures?: No Have you ever Experienced Delirium Tremens(DT)s?: No Have you ever undergone Alcohol Rehabilitation Treatment (i.e, inpt ot outpatient treatment programs)?: No Have you ever Experienced Blackouts?: No Have you ever Combined Alcohol with other Downers within the last 90 days?: No Have you ever Combined Alcohol with any other Substance of Abuse during the last 90 days?: No Positive Blood Alcohol level on Presentation? [PCS.BAL]: No Evidence of Increased Autonomic Activity (i.e. HR>120, tremor, sweating, agitation, nausea)?: No Result: 2
[2023-05-06] MEDS: Ketorolac 30 MG/ML VIAL IM (16:45)
--- NOTE | 2023-05-06 17:43 | DI.VRAD_ITS ---
Addendum created by Radha Vicente MD on 05/06/2023 5:57:05 PM EDT: In fact there are most likely acute fractures of the left 4th through 7th ribs with minimal to mild angulation.Findings were discussed with Nataly Shay at 05/06/2023 17:57 EDT. Initial report created on 05/06/2023 5:43:07 PM EDT: PROCEDURE INFORMATION: Exam: XR Ribs with PA Chest Exam date and time: 05/06/2023 17:17 Age: 52 years old Clinical indication: Other: ETOH, fall, b low and mid rib pain TECHNIQUE: Imaging protocol: Radiologic exam of the bilateral ribs with PA chest. Views: 4 views COMPARISON: CR XR CHEST 2V PA LATERAL 03/03/2023 20:32 FINDINGS: Lungs: Minor subsegmental atelectasis or scarring in the right lung base. Pleural spaces: No pleural effusion. No pneumothorax. Heart/Mediastinum: No cardiomegaly. Bones/joints: Subtle bowing right lateral 7th and 8th ribs without a definite cortical step-off on these views. Subtle discontinuity lateral left 4th and 5th ribs with minimal angulation. Difficult to tell if there is mild periostitis. Intraperitoneal space: Right upper quadrant clips, probable cholecystectomy. IMPRESSION: 1. Minor subsegmental atelectasis or scarring in the right lung base. 2. Possible nondisplaced right 7th and 8th rib fractures, acute to subacute. 3. Left 4th and 5th rib fractures, acute to subacute, minimal angulation. Dictated and Authenticated by: Radha Vicente MD. Ordering:MELLISSA Ingram MD
[2023-05-06] MEDS: traMADol 50 MG TAB 100 MG PO (17:48)
[2023-05-06 18:27] VITALS: BP 130/95; PULSE 130; TEMP 37.1; O2SAT 98
--- NOTE | 2023-05-10 11:06 | NUR.NOTE ---
Patient called asking to get enough tramadol until her PCP appt on this Wed. She is currently taking it every [address] Krause he said that she could return to ED for re-evaluation or see her PCP. Pt was told this. Pt stated she could get here and would just have to wait it out. Nursing Note:
== END 2023-05-06 18:40 | disposition home or self-care (01) ==
PROVIDERS: Emergency Provider Emergency Medicine; PCP Family Medicine
DX: S22.43XA Multiple fractures of ribs, bilateral, initial encounter for closed fracture; W19.XXXA Unspecified fall, initial encounter; F10.20 Alcohol dependence, uncomplicated
CPT/HCPCS: 96372; 99284; 71046; 71110; J1885

== ENCOUNTER 2023-05-12 15:10 | Outpatient (REF) | payer OTHER, SELFPAY ==
[2023-05-12 20:24] LABS: HCT 39.2 % (36.0-46.0); HGB 13.1 g/dL (11.2-15.7); MCH 35.9 pg (27.0-33.0); MCHC 33.4 % (32.0-36.0); MPV 11.5 fL (8.0-11.0); Platelet Count 390 10^3/uL (130-400); RBC 3.65 10^6/uL (3.93-5.22); RDW 12.5 % (11.7-14.6); RDW-SD 50.2 fL; WBC 9.11 10^3/uL (4.4-10.8)
[2023-05-12 20:49] LABS: ALT 75 U/L (14-59); AST 92 U/L (15-37); Albumin 3.7 g/dL (3.4-5.0); Alkaline Phosphatase 414 U/L (46-116); Anion Gap 10.3 mmol/L (3-11); BUN 6 mg/dL (7-18); Bilirubin, Total 0.6 mg/dL (0.2-1.0); CO2 24.7 mmol/L (21.0-32.0); CREATININE 0.9 mg/dL (0.55-1.02); Calcium 9.4 mg/dL (8.5-10.1); Chloride 99 mmol/L (98-107); Estimated GFR 77.88 (mL/min/1.73m2); Glucose 72 mg/dL (74-106); Magnesium 1.9 mg/dL (1.8-2.4); Potassium 4.7 mmol/L (3.5-5.1); Sodium 134 mmol/L (136-145); Total Protein 7.2 g/dL (6.4-8.2)
[2023-05-12 21:34] LABS: MCV 107 fL (80-95)
[2023-05-12 21:53] LABS: Vitamin B12 878 pg/mL (193-986)
== END 2023-05-12 15:11 | disposition home or self-care (01) ==
LOC: NCHCN 15:10
PROVIDERS: PCP Family Medicine; Visit Provider Family Medicine
DX: F10.20 Alcohol dependence, uncomplicated (principal); E87.1 Hypo-osmolality and hyponatremia; F41.8 Other specified anxiety disorders; I10 Essential (primary) hypertension; Z79.899 Other long term (current) drug therapy
CPT/HCPCS: 80053; 85027; 82607; 83735

== ENCOUNTER 2023-06-08 16:08 | Outpatient (REF) | payer OTHER, SELFPAY ==
[2023-06-08 20:21] LABS: HGB 12.8 g/dL (11.2-15.7); MCH 34.5 pg (27.0-33.0); MCHC 33.7 % (32.0-36.0); MCV 102 fL (80-95); MPV 12.2 fL (8.0-11.0); Platelet Count 429 10^3/uL (130-400); RBC 3.71 10^6/uL (3.93-5.22); RDW 11.5 % (11.7-14.6); RDW-SD 43.8 fL; WBC 9.29 10^3/uL (4.4-10.8)
[2023-06-08 20:35] LABS: ALT 15 U/L (14-59); AST 18 U/L (15-37); Alkaline Phosphatase 121 U/L (46-116); Anion Gap 11.5 mmol/L (3-11); BUN 6 mg/dL (7-18); Bilirubin, Total 0.3 mg/dL (0.2-1.0); CO2 21.5 mmol/L (21.0-32.0); CREATININE 0.6 mg/dL (0.55-1.02); Calcium 9.6 mg/dL (8.5-10.1); Chloride 93 mmol/L (98-107); Estimated GFR 109.28 (mL/min/1.73m2); Glucose 67 mg/dL (74-106); Potassium 4.4 mmol/L (3.5-5.1); Sodium 126 mmol/L (136-145); Total Protein 7.5 g/dL (6.4-8.2)
[2023-06-14 09:54] LABS: 2-OH-Ethyl-Flurazepam Negative ng/mL (Cutoff: 10); 7-NH-Clonazepam 72 ng/mL (Cutoff: 10); 7-NH-Flunitrazepam Negative ng/mL (Cutoff: 10); Alpha OH-Alprazolam Negative ng/mL (Cutoff: 10); Alpha-OH Midazolam Negative ng/mL (Cutoff: 10); Alpha-OH-Triazolam Negative ng/mL (Cutoff: 10); Alprazolam Negative ng/mL (Cutoff: 10); Benzodiazepines Interpretation Positive.; Chlordiazepoxide Negative ng/mL (Cutoff: 10); Clobazam Negative ng/mL (Cutoff: 10); Clonazepam Negative ng/mL (Cutoff: 10); Diazepam Negative ng/mL (Cutoff: 10); Flurazepam Negative ng/mL (Cutoff: 10); Lorazepam 23 ng/mL (Cutoff: 10); Midazolam Negative ng/mL (Cutoff: 10); N-Desmethylclobazam Negative ng/mL (Cutoff: 10); Prazepam Negative ng/mL (Cutoff: 10); Temazepam 15 ng/mL (Cutoff: 10); Triazolam Negative ng/mL (Cutoff: 10); Zolpidem Carboxylic acid Negative ng/mL (Cutoff: 10)
== END 2023-06-08 16:09 | disposition home or self-care (01) ==
LOC: NCHCN 16:08
PROVIDERS: PCP Family Medicine; Visit Provider Family Medicine
DX: K70.10 Alcoholic hepatitis without ascites (principal); F41.9 Anxiety disorder, unspecified
CPT/HCPCS: 80053; 85027; 80346

== ENCOUNTER 2023-07-20 15:19 | Outpatient (REF) | payer OTHER, SELFPAY ==
[2023-07-20 16:05] LABS: Anion Gap 10.4 mmol/L (3-11); BUN 7 mg/dL (7-18); CO2 22.6 mmol/L (21.0-32.0); CREATININE 0.8 mg/dL (0.55-1.02); Calcium 9.5 mg/dL (8.5-10.1); Chloride 88 mmol/L (98-107); Estimated GFR 89.15 (mL/min/1.73m2); Glucose 79 mg/dL (74-106); Potassium 4.7 mmol/L (3.5-5.1)
[2023-07-20 16:46] LABS: Sodium 121 mmol/L (136-145)
== END 2023-07-20 15:20 | disposition home or self-care (01) ==
LOC: NCHCN 15:19
PROVIDERS: PCP Family Medicine; Visit Provider Family Medicine
DX: E87.1 Hypo-osmolality and hyponatremia (principal)
CPT/HCPCS: 80048

== ENCOUNTER 2023-08-06 17:45 | Observation (INO) | payer OTHER, SELFPAY ==
[2023-08-06 17:47] VITALS: BP 168/103; PULSE 97; RESP 16; TEMP 36.5; O2SAT 99
--- NOTE | 2023-08-06 17:53 | W.ED.GENAD ---
Discharge Plan Disposition Patient Disposition: Admit to [facility] Discharge Details Clinical Impression: Hyponatremia Primary Care Provider: Travis Torres ED Provider: Prosper Rushing [place] Meds and New Rx's Prescriptions: No Action topiramate 200 mg tablet 200 mg PO DAILY clonazepam 0.5 mg tablet 0.5 mg PO TID PRN olanzapine 2.5 mg tablet 2.5 mg PO QHS duloxetine 60 mg capsule,delayed release(DR/EC) 60 mg PO DAILY lisinopril 20 mg tablet 20 mg PO DAILY Patient Comments: TAKE 1 TABLET BY MOUTH EVERY DAY Aimovig Autoinjector 140 mg/mL auto-injector 140 mg SUBCUT .MONTHLY Relafen DS 1,000 mg tablet 1,000 mg PO BID Qty: 14 0RF divalproex 500 mg tablet,delayed release (DR/EC) 500 mg PO BID Patient Comments: TAKE 1 TABLET BY MOUTH TWICE DAILY esomeprazole magnesium 40 mg capsule,delayed release(DR/EC) 40 mg PO DAILY Patient Comments: TAKE 1 CAPSULE BY MOUTH EVERY DAY WHILE TAKING NABUMETONE lamotrigine 25 mg tablet 50 mg PO DAILY Patient Comments: TAKE 1 TABLET BY MOUTH EVERY DAY Medical Decision Making Patient presenting to ED with hyponatremia. Labs drawn today show a sodium of 121. She has slowly been trending down over the course of this year. She denies laxative use, diuretic use, excessive fluid intake. She has no edema and has no evidence of hypovolemia. IV established and saline started at 100 an hour. Repeat laboratory studies obtained as well as urine sodium and urine osmolality. Sodium this evening is 118. Her CBC is unremarkable. Kidney function and liver function are normal. Urine sodium 25. Urine osmolality still pending. Case discussed with hospitalist for admission. Patient accepted to hospitalist service. She is admitted in stable condition. Lab Data Lab results reviewed: Yes I reviewed the patient's lab results. HPI General Mode of arrival: ambulatory. Date/Time Provider Initiated Documentation: 08/06/23 17:52. Limitations to Documentation: no limitations. Information obtained by: patient and family. HPI Narrative: Patient presents to ED on advice of her PCP after sodium level came back very low today. Patient was seen in the office for follow-up. Had blood work done this morning. Was called this evening and told that her sodium was low and that she needed to report to the emergency department. Patient herself has no complaints of. Family member states that she seems to be off mentally and slow to respond at times. She denies any laxative use. She is not on diuretic. She denies drinking large amounts of water. She denies any syncope, weakness, vomiting, diarrhea, chest pain, shortness of breath, abdominal pain. Related Data Home Medications Medication Instructions Recorded Confirmed clonazepam 0.5 mg tablet 0.5 mg PO TID PRN 09/22/21 08/06/23 duloxetine 60 mg capsule,delayed 60 mg PO DAILY 09/22/21 08/06/23 release olanzapine 2.5 mg tablet 2.5 mg PO QHS 09/22/21 08/06/23 topiramate 200 mg tablet 200 mg PO DAILY 09/22/21 08/06/23 erenumab-aooe 140 mg/mL 140 mg subcut .MONTHLY 10/15/22 08/06/23 subcutaneous auto-injector (Aimovig Autoinjector) lisinopril 20 mg tablet 20 mg PO DAILY 10/15/22 08/06/23 nabumetone 1,000 mg tablet 1,000 mg PO BID #14 tabs 05/06/23 08/06/23 (Relafen DS) divalproex 500 mg tablet,delayed 500 mg PO BID 08/06/23 08/06/23 release esomeprazole magnesium 40 mg 40 mg PO DAILY 08/06/23 08/06/23 capsule,delayed release lamotrigine 25 mg tablet 50 mg PO DAILY 08/06/23 08/06/23 Previous Rx's Medication Instructions Recorded nabumetone 1,000 mg tablet 1,000 mg PO BID #14 tabs 05/06/23 (Relafen DS) Allergies Allergy/AdvReac Type Severity Reaction Status Date / Time No Known Allergies Allergy Unverified 08/06/23 17:50 General Stated Complaint: GenMedical MAIA: 3 Review of Systems Narrative: Per HPI PFSH All Active Problems Depression (Chronic) Migraine headache (Chronic) Hyponatremia (Acute) Distal radius fracture, left (Acute 10/15/22) Right ankle sprain (Acute) Medical History GERD (gastroesophageal reflux disease) HTN (hypertension) Social History Smoking/Tobacco Use Status: Current every day Tobacco Type: cigarettes Smoking risk assessment performed?: Yes Alcohol Intake: never Drug use: Never Substance use type: does not use Do you feel safe at home: Yes Do you feel safe in your relationship?: Yes Exam Narrative Exam Narrative: Const: WDWN female in NAD. HEENT: NC/AT. Normal facial exam. Eyes: Normal conjunctiva and sclera. Neck: Supple. Trachea midline. Lungs: Normal respiratory effort. Lungs are clear. Cor: RRR without murmur/gallop. Good radial pulses. GI: Soft. NT/ND. No guarding or rebound. Back: No CVAT Neuro: A+O x 3. Normal speech, mentation a little slow, gait normal. Cranial nerves II - XII grossly intact. No gross motor or sensory deficit. Ext: No C/C/E. Skin: Warm and dry without rash. Course Vital Signs Vital signs: Vital Signs Temperature 97.7 F 08/06/23 17:47 Pulse 97 H 08/06/23 17:47 Respiratory Rate 16 08/06/23 17:47 Blood Pressure 168/103 H 08/06/23 17:47 Pulse Oximetry 99 08/06/23 17:47 Temperature 97.7 F 08/06/23 17:47 Temperature Source Skin 08/06/23 17:47 Pulse 97 H 08/06/23 17:47 Respiratory Rate 16 08/06/23 17:47 Blood Pressure 168/103 H 08/06/23 17:47 Blood Pressure Position Sitting 08/06/23 17:47 Pulse Oximetry 99 08/06/23 17:47 Oxygen Delivery Method Room Air 08/06/23 17:47 Oxygen Flow Rate 0 08/06/23 17:47 Pain Level 0 08/06/23 17:47
[2023-08-06 18:03] VITALS: RESP 14
[2023-08-06 18:30] LABS: HGB 11.7 g/dL (11.2-15.7); MCHC 34.4 % (32.0-36.0); MCV 93 fL (80-95); MPV 9.4 fL (8.0-11.0); Platelet Count 437 10^3/uL (130-400); RBC 3.66 10^6/uL (3.93-5.22); RDW 11.9 % (11.7-14.6); RDW-SD 41.1 fL; WBC 8.91 10^3/uL (4.4-10.8)
[2023-08-06 18:50] LABS: ALT 18 U/L (14-59); AST 17 U/L (15-37); Albumin 4.3 g/dL (3.4-5.0); Alkaline Phosphatase 77 U/L (46-116); Anion Gap 9.3 mmol/L (3-11); BUN 7 mg/dL (7-18); Bilirubin, Total 0.5 mg/dL (0.2-1.0); CO2 23.7 mmol/L (21.0-32.0); CREATININE 0.8 mg/dL (0.55-1.02); Chloride 85 mmol/L (98-107); Estimated GFR 89.15 (mL/min/1.73m2); Glucose 66 mg/dL (74-106); Potassium 3.8 mmol/L (3.5-5.1)
[2023-08-06 18:52] LABS: Sodium 118 mmol/L (136-145)
[2023-08-06 19:07] LABS: Sodium, Urine 25 mmol/L
--- NOTE | 2023-08-06 19:26 | HPE_ITS ---
Date of service: 08/06/23 Time of Service: 19:26 Assessment and Plan Assessment and plan (1) Hyponatremia: Start date: 08/06/23 Status: Acute Assessment and plan: This is a 53-year-old lady who recently stopped drinking alcohol which has been drunk daily with moderate to heavy use who presents with hyponatremia which apparently has been a problem in the past. She is on multiple psych meds as well may drink extra water but does try to have extra salt in her diet. She was completely asymptomatic and this was found with outpatient lab follow-up. She will be placed in ICU for monitoring but not critically ill with low sodium which most likely is recurrent. He will continue IV normal saline ingesting sodium increases watching for a nonrapid increase in sodium. Of note her MCV is normalized off alcohol and she has no significant abnormalities and her chemistries other than the low sodium. Workup for SIADH will be obtained patient will have fluid restriction and possibly should be started on salt tablets if this is recurrent. She will be discharged home once stabilized and follow-up with her PCP. She is a full code. (2) Depression: Status: Chronic Assessment and plan: Outpatient medications will be continued the same. Qualifiers: Depression Type: other depression Qualified Code(s): F32.89 - Other specified depressive episodes (3) Migraine headache: Status: Chronic Assessment and plan: Outpatient medications will be continued the same. Qualifiers: Intractability: not intractable Migraine type: other Status migrainosus presence: without status migrainosus Qualified Code(s): G43.809 - Other migraine, not intractable, without status migrainosus (4) HTN (hypertension): Assessment and plan: On lisinopril with continuation of the same adjusting as needed. The patient requires salt tablet treatment this may be exacerbated. Qualifiers: Hypertension type: primary hypertension Qualified Code(s): I10 - Essential (primary) hypertension (5) GERD (gastroesophageal reflux disease): Assessment and plan: Outpatient medication to be continued with patient on PPI daily. Qualifiers: Esophagitis presence: without esophagitis Qualified Code(s): K21.9 - Gastro-esophageal reflux disease without esophagitis History of Present Illness History of Present Illness Chief Complaint: Abnormal sodium on outpatient lab Narrative: This is a 53-year-old female patient who was sent to the ED by her PCP after routine outpatient labs revealed critical hyponatremia. Patient was asymptomatic. Remain asymptomatic throughout her ED evaluation. To have hyponatremia with sodium of 121 and repeat revealing sodium down to 118. She does have a history of moderate to severe alcohol abuse in the past having quit drinking 2 months ago and a history of having prior hyponatremia. She does try to eat extra salt. She has not been drinking any alcohol for 2 months. She is on multiple medications for depression and does have a dry mouth with increased water intake at times. She denies any GI symptoms or change in mental status with her low sodium. She was admitted with IV normal saline without hyponatremic fluid resuscitation but will also be placed in ICU caution. She is a full code. Review of Systems Narrative: 13 point review of system positive for weight gain recently otherwise unrevealing or stable. PFSH All Active Problems Depression (Chronic) Migraine headache (Chronic) Hyponatremia (Acute) Distal radius fracture, left (Acute 10/15/22) Right ankle sprain (Acute) Medical History GERD (gastroesophageal reflux disease) HTN (hypertension) Social History Smoking/Tobacco Use Status: Current every day Tobacco Type: cigarettes Smoking risk assessment performed?: Yes Alcohol Intake: never Drug use: Never Substance use type: does not use Housing: house Do you feel safe at home: Yes Do you feel safe in your relationship?: Yes Meds Allergies and Home Medications Allergies Allergy/AdvReac Type Severity Reaction Status Date / Time No Known Allergies Allergy Unverified 08/06/23 17:50 Home Medications Medication Instructions Recorded Confirmed Type clonazepam 0.5 mg tablet 0.5 mg PO TID PRN 09/22/21 08/06/23 History duloxetine 60 mg capsule,delayed 60 mg PO DAILY 09/22/21 08/06/23 History release olanzapine 2.5 mg tablet 2.5 mg PO QHS 09/22/21 08/06/23 History topiramate 200 mg tablet 200 mg PO DAILY 09/22/21 08/06/23 History erenumab-aooe 140 mg/mL 140 mg subcut .MONTHLY 10/15/22 08/06/23 History subcutaneous auto-injector (Aimovig Autoinjector) lisinopril 20 mg tablet 20 mg PO DAILY 10/15/22 08/06/23 History nabumetone 1,000 mg tablet 1,000 mg PO BID #14 tabs 05/06/23 08/06/23 Rx (Relafen DS) divalproex 500 mg tablet,delayed 500 mg PO BID 08/06/23 08/06/23 History release esomeprazole magnesium 40 mg 40 mg PO DAILY 08/06/23 08/06/23 History capsule,delayed release lamotrigine 25 mg tablet 50 mg PO DAILY 08/06/23 08/06/23 History Exam Narrative Exam Narrative: General: Patient appears appropriate age, slightly disheveled with flattened affect. She is alert and oriented x 3. She is in no acute distress. HEENT: Normocephalic, eyes with pupils equal and react to light symmetrically, extraocular movements intact and sclera anicteric. Oropharynx with slightly dry mucosa and fair dentition. Neck: Supple without JVD. Back: Stooped posture without CVA tenderness. Lungs: Fair aeration and clear to auscultation percussion with no focalizing rales or rhonchi. Breast: Exam deferred. Heart: Regular rate and rhythm with no murmurs gallops appreciated. Abdomen: Slightly obese contour, soft to palpation and nontender with no guarding or rebound. No palpable hepatosplenomegaly. Bowel sounds positive all quadrants. Genitalia/rectal: Exam deferred. Extremities: Without clubbing, cyanosis or pitting edema. Peripheral pulses intact. Skin: Normal color, warm and dry. Neuro: Cranial nerves II through XII grossly intact. No focal motor deficits. No tremor. Psych: Flattened affect and depressed mood. Monotonous tone to voice. No abnormal thought processes. Remote and recent memory intact. Results Imaging Imaging Studies: Labs 08/07/23 04:32 08/07/23 04:32 Labs: Laboratory Results - last 24 hr 08/06/23 08/06/23 18:25 18:30 WBC 8.91 RBC 3.66 L Hgb 11.7 Hct 34.0 L MCV 93 MCH 32.0 MCHC 34.4 RDW 11.9 Plt Count 437 H MPV 9.4 Sodium 118 L* Potassium 3.8 Chloride 85 L Carbon Dioxide 23.7 Anion Gap 9.3 BUN 7 Creatinine 0.8 Est GFR (CKD-EPI 2020) 89.15 Glucose 66 L Calcium 9.0 Total Bilirubin 0.5 AST 17 ALT 18 Alkaline Phosphatase 77 Total Protein 8.0 Albumin 4.3 Ur Random Sodium 25 Last Vital Signs Temp 36.5 C 08/06/23 17:47 Pulse 97 H 08/06/23 17:47 Resp 14 08/06/23 18:03 BP 168/103 H 08/06/23 17:47 Pulse Ox 99 08/06/23 17:47 Time Spent Time spent with Patient: >75 minutes Time was spent: preparing to see the patient(eg.review tests), obtaining and/or reviewing separately otained hiistory, ordering medications,tests, procedures, referring, communicating with other health career technology teacher, indepentently interpreting results and counseling the patient
[2023-08-06] MEDS: Nicotine 21 MG/24 HR PATCH TD (19:30)
[2023-08-06 20:54] LABS: Anion Gap 6.3 mmol/L (3-11); BUN 9 mg/dL (7-18); CO2 23.7 mmol/L (21.0-32.0); CREATININE 0.8 mg/dL (0.55-1.02); Calcium 8.1 mg/dL (8.5-10.1); Chloride 91 mmol/L (98-107); Estimated GFR 89.15 (mL/min/1.73m2); Glucose 82 mg/dL (74-106); Potassium 3.5 mmol/L (3.5-5.1)
[2023-08-06 20:57] LABS: Sodium 121 mmol/L (136-145)
[2023-08-06 21:59] VITALS: BP 142/78; PULSE 88; RESP 16; O2SAT 99
[2023-08-06] MEDS: OLANZapine 2.5 MG TAB PO (22:00)
[2023-08-06 22:38] VITALS: PULSE 79; RESP 16; O2SAT 88
[2023-08-06 22:57] VITALS: BP 126/95; PULSE 80; RESP 14; TEMP 35.9; O2SAT 99
[2023-08-06] MEDS: Normal Saline 1,000 ML 150 ML IV (23:21)
[2023-08-07] VITALS (47 sets, daily range): BP systolic 116–146; BP diastolic 69–102; PULSE 72–126; RESP 10–24; TEMP 35.8–37; O2SAT 89–99
[2023-08-07 00:48] LABS: Anion Gap 5.6 mmol/L (3-11); BUN 9 mg/dL (7-18); CO2 25.4 mmol/L (21.0-32.0); CREATININE 0.8 mg/dL (0.55-1.02); Calcium 8.4 mg/dL (8.5-10.1); Chloride 93 mmol/L (98-107); Estimated GFR 89.15 (mL/min/1.73m2); Glucose 88 mg/dL (74-106); Potassium 3.8 mmol/L (3.5-5.1)
--- NOTE | 2023-08-07 00:49 | W.PC.ACHO ---
Registration Status: ADM IN Primary Language: Preferred Language: ED Information & Data Chief Complaint GenMedical 08/06/23 17:54 Chief Complaint GenMedical 08/06/23 17:53 Triage Note sent per Dr. Torres for low 08/06/23 17:47 sodium- states she's had this before but unsure what caused it. Denies any pain or any symptoms. Medical / Surgical History (Last Reviewed 08/06/23 @ 20:16 by Prosper Rushing MD) GERD (gastroesophageal reflux disease) HTN (hypertension) Most Recent Vital Signs Temperature 35.9 C L 08/06/23 22:57 Temperature Source Temporal Artery Scan 08/06/23 22:57 Pulse 72 08/07/23 00:01 Pulse 75 08/07/23 00:01 Respiratory Rate 13 08/07/23 00:01 Respiratory Effort Normal 08/06/23 23:00 Respiratory Depth Normal 08/06/23 22:57 Respiratory Pattern Normal 08/06/23 18:03 Blood Pressure 119/81 08/07/23 00:01 Blood Pressure Mean 92 08/07/23 00:01 Blood Pressure Position Supine 08/06/23 22:57 Pulse Oximetry 96 08/07/23 00:01 Oxygen Delivery Method Room Air 08/06/23 22:57 Oxygen Flow Rate 0 08/06/23 22:57 Pain Level 0 08/06/23 21:59 Allergies No Known Allergies Allergy (Unverified 08/06/23 17:50) Precautions Isolation Standard precaution 08/06/23 17:54 Active Medications Generic Name Dose Route Start Last Admin Trade Name Freq PRN Reason Stop Dose Admin Sodium Chloride 1,000 mls @ 150 mls/hr 08/06/23 19:45 08/06/23 23:21 Saline 1000ml Bag IV 150 mls/hr INFUSION OSIRIS Administration IV IV Catheter Type [Left Peripheral IV Antecubital] IV Catheter Gauge [Left 18 Antecubital] Diet Orders Category Date Time Status Heart Healthy Eating [DIET] Nutrition 08/07/23 Breakfast Active Diagnostics 08/07/23 08/07/23 08/06/23 Range/Units 05:35 00:30 20:34 WBC Pending (4.4-10.8) 10^3/uL RBC Pending (3.93-5.22) 10^6/uL Hgb Pending (11.2-15.7) g/dL Hct Pending (36.0-46.0) % MCV Pending (80-95) fL MCH Pending (27.0-33.0) pg MCHC Pending (32.0-36.0) % RDW Pending (11.7-14.6) % Plt Count Pending (130-400) 10^3/uL MPV Pending (8.0-11.0) fL Sodium Pending Pending 121 L* (136-145) mmol/L Potassium Pending Pending 3.5 (3.5-5.1) mmol/L Chloride Pending Pending 91 L (98-107) mmol/L Carbon Dioxide Pending Pending 23.7 (21.0-32.0) mmol/L Anion Gap Pending Pending 6.3 (3-11) mmol/L BUN Pending Pending 9 (7-18) mg/dL Creatinine Pending Pending 0.8 (0.55-1.02) mg/dL Est GFR (CKD-EPI 2020) Pending Pending 89.15 (mL/min/1.73m2) Glucose Pending Pending 82 (74-106) mg/dL Calcium Pending Pending 8.1 L (8.5-10.1) mg/dL Magnesium Pending Total Bilirubin Pending (0.2-1.0) mg/dL AST Pending (15-37) U/L ALT Pending (14-59) U/L Alkaline Phosphatase Pending (46-116) U/L Total Protein Pending (6.4-8.2) g/dL Albumin Pending (3.4-5.0) g/dL Urine Osmolality Ur Random Sodium mmol/L 08/06/23 08/06/23 Range/Units 18:30 18:25 WBC 8.91 (4.4-10.8) 10^3/uL RBC 3.66 L (3.93-5.22) 10^6/uL Hgb 11.7 (11.2-15.7) g/dL Hct 34.0 L (36.0-46.0) % MCV 93 (80-95) fL MCH 32.0 (27.0-33.0) pg MCHC 34.4 (32.0-36.0) % RDW 11.9 (11.7-14.6) % Plt Count 437 H (130-400) 10^3/uL MPV 9.4 (8.0-11.0) fL Sodium 118 L* (136-145) mmol/L Potassium 3.8 (3.5-5.1) mmol/L Chloride 85 L (98-107) mmol/L Carbon Dioxide 23.7 (21.0-32.0) mmol/L Anion Gap 9.3 (3-11) mmol/L BUN 7 (7-18) mg/dL Creatinine 0.8 (0.55-1.02) mg/dL Est GFR (CKD-EPI 2020) 89.15 (mL/min/1.73m2) Glucose 66 L (74-106) mg/dL Calcium 9.0 (8.5-10.1) mg/dL Magnesium Total Bilirubin 0.5 (0.2-1.0) mg/dL AST 17 (15-37) U/L ALT 18 (14-59) U/L Alkaline Phosphatase 77 (46-116) U/L Total Protein 8.0 (6.4-8.2) g/dL Albumin 4.3 (3.4-5.0) g/dL Urine Osmolality Pending Ur Random Sodium 25 mmol/L Intake and Output - 24 Hour Total 08/06/23 17:45 thru 08/07/23 00:42 Output Total 450 Balance -450 Weight 84.8 kg Output: Urine 450 Other: Urine Color Pale Yellow Urine Appearance Clear Falls Risk Assessment History of Falls No History 08/06/23 18:03 Contributing Factors No Factors 08/06/23 18:03 Ambulatory Aids Independent 08/06/23 18:03 Tubes/Lines None 08/06/23 18:03 Gait Evaluation No gait disturbance 08/06/23 18:03 Cognition No cognitive impairment 08/06/23 18:03 Fall Total Score 0 08/06/23 18:03 Level of Risk Standard/Low Risk 08/06/23 18:03 Problems (Last Reviewed 08/06/23 @ 20:16 by Prosper Rushing MD) Depression (Chronic) Migraine headache (Chronic) Hyponatremia (Acute) v v v v v v v v v Sending and/or Receiving Nurses: Please use comment section below to note any information pertinent to the patient hand-off not included above. Information / Comments: Report received from: ANJU Hernandez all questions answered
[2023-08-07 01:01] LABS: Sodium 124 mmol/L (136-145)
[2023-08-07 04:58] LABS: HCT 32.5 % (36.0-46.0); HGB 11.3 g/dL (11.2-15.7); MCH 31.8 pg (27.0-33.0); MCHC 34.8 % (32.0-36.0); MCV 92 fL (80-95); MPV 10.1 fL (8.0-11.0); Platelet Count 424 10^3/uL (130-400); RBC 3.55 10^6/uL (3.93-5.22); RDW 11.9 % (11.7-14.6); RDW-SD 40.6 fL; WBC 9.19 10^3/uL (4.4-10.8)
[2023-08-07 05:20] LABS: ALT 16 U/L (14-59); AST 18 U/L (15-37); Albumin 3.5 g/dL (3.4-5.0); Alkaline Phosphatase 69 U/L (46-116); Anion Gap 10.1 mmol/L (3-11); BUN 9 mg/dL (7-18); Bilirubin, Total 0.4 mg/dL (0.2-1.0); CO2 20.9 mmol/L (21.0-32.0); CREATININE 0.7 mg/dL (0.55-1.02); Calcium 8.5 mg/dL (8.5-10.1); Chloride 97 mmol/L (98-107); Estimated GFR 104.65 (mL/min/1.73m2); Glucose 94 mg/dL (74-106); Potassium 3.5 mmol/L (3.5-5.1); Sodium 128 mmol/L (136-145); Total Protein 6.6 g/dL (6.4-8.2)
[2023-08-07] MEDS: Enoxaparin 40 MG/0.4 ML SYR SC (07:58)
[2023-08-07] MEDS: Normal Saline Flush 10 ML SYR IVP (07:58)
[2023-08-07] MEDS: DULoxetine 30 MG CAP 60 MG PO (07:59)
[2023-08-07] MEDS: Esomeprazole 40 MG CAPCR PO (07:59)
[2023-08-07] MEDS: Topiramate 50 MG TAB 200 MG PO (07:59)
[2023-08-07 08:26] LABS: Anion Gap 7.6 mmol/L (3-11); BUN 9 mg/dL (7-18); CO2 21.4 mmol/L (21.0-32.0); CREATININE 0.7 mg/dL (0.55-1.02); Calcium 8.5 mg/dL (8.5-10.1); Chloride 99 mmol/L (98-107); Estimated GFR 104.65 (mL/min/1.73m2); Glucose 97 mg/dL (74-106); Potassium 3.9 mmol/L (3.5-5.1); Sodium 128 mmol/L (136-145)
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
--- NOTE | 2023-08-07 08:37 | PGE_ITS ---
Date of Service Date of service: 08/07/23 Time of Service: 08:37 Assessment and Plan Assessment and plan (1) Hyponatremia: Start date: 08/06/23 Status: Acute Assessment and plan: Etiology: medication induced, dilutional, adrenal insufficiency, hypothyroidism, EtOH induced, even though the patient denies h/o recent drinking. She has corrected her sodium to 128 rather quickly. Repeat sodium 4 hrs later is still 128. Will give 250 cc of D5W at 75 cc/hr and recheck sodium at noon. Hold lisinopril. Check TSH, am cortisol. No evidence of cirrhosis on US abdomen in 03/07. Check pro-BNP. Continue serial sodium checks. (2) Depression: Status: Chronic Assessment and plan: Consider hyponatremia as side effect of her medications. I am not changing them currently, but if hyponatremia recurs as outpatient, I would consider this. Qualifiers: Depression Type: other depression Qualified Code(s): F32.89 - Other specified depressive episodes (3) Alcohol abuse: Assessment and plan: The patient states that this is in remission, but she did have a very subtle tremor on my exam with her. We will watch her for any escalating symptoms of EtOH w/d. For now, I will give her IV thiamine and MVI. We will check B12 and folate levels. (4) Migraine headache: Status: Chronic Assessment and plan: Continue outpatient medications. Check topamax and divalproex levels. Qualifiers: Intractability: not intractable Migraine type: other Status migrainosus presence: without status migrainosus Qualified Code(s): G43.809 - Other migraine, not intractable, without status migrainosus (5) HTN (hypertension): Assessment and plan: Hold lisinopril in light of hyponatremia. Qualifiers: Hypertension type: primary hypertension Qualified Code(s): I10 - Essential (primary) hypertension (6) GERD (gastroesophageal reflux disease): Assessment and plan: Continue PPI Qualifiers: Esophagitis presence: without esophagitis Qualified Code(s): K21.9 - Gastro-esophageal reflux disease without esophagitis (7) DVT prophylaxis: Status: Acute Assessment and plan: SC enoxaparin (8) Discharge planning issues: Status: Acute Assessment and plan: Full code Keep in ICU. Subjective Subjective Interval history since last seen: Ms Boone states she is feeling well. She said she felt short of breath when she came in and she is not sure if she is short of breath now. Denies headache, dizziness, numbness/tingling, blurred vision, nausea, CP, SOB. States her last drink was 2 weeks ago. Exam Narrative Exam Narrative: General: a pleasant mildly anxious female who looks very subtly tremulous, A&Ox3, mentating well. HEENT: EOMI, MMM Heart: RRR, no m/r/g Lungs: CTAB Abdomen: soft, nontender, nondistended Extremities: +1 edema BLEs Objective Last Vital Signs Temp 35.8 C L 08/07/23 03:25 Pulse 89 08/07/23 06:01 Resp 20 08/07/23 06:01 BP 125/85 08/07/23 06:01 Pulse Ox 93 08/07/23 04:01 Laboratory Results - last 24 hr 08/06/23 08/06/23 08/06/23 18:25 18:30 20:34 WBC 8.91 RBC 3.66 L Hgb 11.7 Hct 34.0 L MCV 93 MCH 32.0 MCHC 34.4 RDW 11.9 Plt Count 437 H MPV 9.4 Sodium 118 L* 121 L* Potassium 3.8 3.5 Chloride 85 L 91 L Carbon Dioxide 23.7 23.7 Anion Gap 9.3 6.3 BUN 7 9 Creatinine 0.8 0.8 Est GFR (CKD-EPI 2020) 89.15 89.15 Glucose 66 L 82 Calcium 9.0 8.1 L Magnesium Total Bilirubin 0.5 AST 17 ALT 18 Alkaline Phosphatase 77 Total Protein 8.0 Albumin 4.3 Ur Random Sodium 25 08/07/23 08/07/23 08/07/23 00:30 04:32 08:00 WBC 9.19 RBC 3.55 L Hgb 11.3 Hct 32.5 L MCV 92 MCH 31.8 MCHC 34.8 RDW 11.9 Plt Count 424 H MPV 10.1 Sodium 124 L* 128 L 128 L Potassium 3.8 3.5 3.9 Chloride 93 L 97 L 99 Carbon Dioxide 25.4 20.9 L 21.4 Anion Gap 5.6 10.1 7.6 BUN 9 9 9 Creatinine 0.8 0.7 0.7 Est GFR (CKD-EPI 2020) 89.15 104.65 104.65 Glucose 88 94 97 Calcium 8.4 L 8.5 8.5 Magnesium 2.0 Total Bilirubin 0.4 AST 18 ALT 16 Alkaline Phosphatase 69 Total Protein 6.6 Albumin 3.5 Ur Random Sodium Objective Narrative Objective Narrative: US abdomen 02/19/23: LIVER: Normal size and echogenicity. No focal liver lesions are seen.. GALLBLADDER: Status post cholecystectomy. BILIARY SYSTEM: No intrahepatic or extrahepatic biliary ductal dilation. KIDNEYS: Kidneys are symmetric in size. No evidence of renal calculi. No evidence of hydronephrosis. No renal mass or cyst identified. PANCREAS: Normal where visualized. SPLEEN: Not enlarged. ABDOMINAL AORTA AND IVC: Visualized portions normal caliber. ASCITES: None seen. IMPRESSION: Status post cholecystectomy. No evidence of biliary dilatation. Time Spent with Patient Time Spent with Patient: 35-49 minutes Time was spent: preparing to see the patient(eg.review tests), obtaining and/or reviewing separately otained hiistory, ordering medications,tests, procedures, referring, communicating with other health neonatal critical care nurse, indepentently interpreting results, counseling the patient and care coordination
[2023-08-07] MEDS: Divalproex 500 MG TABEC PO ×2 (09:01→20:25)
[2023-08-07] MEDS: lamoTRIgine 25 MG TAB 50 MG PO (09:02)
[2023-08-07] MEDS: DEXTROSE 5%-WATER 1,000 ML 75 ML IV (09:06)
[2023-08-07 09:17] LABS: Lab Add On Test DONE
[2023-08-07 09:39] LABS: NT-proBNP 91 pg/mL (<300); TSH 2.06 uIU/mL (0.36-3.74)
[2023-08-07] MEDS: THIAMINE 100 MG in Normal Saline 100 ML 200 MG IVPB (10:25)
[2023-08-07] MEDS: Nabumetone 500 MG TAB 1000 MG PO ×2 (10:25→20:28)
[2023-08-07 12:30] LABS: Anion Gap 6.8 mmol/L (3-11); BUN 9 mg/dL (7-18); CO2 23.2 mmol/L (21.0-32.0); CREATININE 0.9 mg/dL (0.55-1.02); Calcium 8.6 mg/dL (8.5-10.1); Chloride 100 mmol/L (98-107); Glucose 124 mg/dL (74-106); Potassium 4.2 mmol/L (3.5-5.1); Sodium 130 mmol/L (136-145)
[2023-08-07] MEDS: DEXTROSE 5%-WATER 1,000 ML 150 ML IV (15:21)
[2023-08-07] MEDS: Nicotine 14 MG/24 HR PATCH TD (15:57)
[2023-08-07 18:18] LABS: BUN 9 mg/dL (7-18); Calcium 8.8 mg/dL (8.5-10.1); Chloride 101 mmol/L (98-107); Estimated GFR 68.21 (mL/min/1.73m2); Glucose 105 mg/dL (74-106); Potassium 4.1 mmol/L (3.5-5.1); Sodium 131 mmol/L (136-145)
[2023-08-07] MEDS: OLANZapine 2.5 MG TAB PO (20:25)
[2023-08-07] MEDS: clonazePAM 0.5 MG TAB PO (20:25)
[2023-08-07] MEDS: Magnesium Gluconate 500 MG TAB PO (21:13)
[2023-08-07] MEDS: Melatonin 3 MG TAB 6 MG PO (21:42)
[2023-08-07 22:11] LABS: Osmolality, Urine 268 mOsm/kg (150-1150)
[2023-08-07 22:11] LABS: Osmolality, Urine 128 mOsm/kg (150-1150)
[2023-08-08] VITALS (26 sets, daily range): BP systolic 111–150; BP diastolic 76–105; PULSE 70–97; RESP 9–19; TEMP 36.1–36.3; O2SAT 93–99
[2023-08-08 00:38] LABS: Anion Gap 9.9 mmol/L (3-11); BUN 9 mg/dL (7-18); CO2 21.1 mmol/L (21.0-32.0); CREATININE 0.8 mg/dL (0.55-1.02); Calcium 8.6 mg/dL (8.5-10.1); Chloride 100 mmol/L (98-107); Estimated GFR 89.15 (mL/min/1.73m2); Glucose 101 mg/dL (74-106); Potassium 3.6 mmol/L (3.5-5.1); Sodium 131 mmol/L (136-145)
[2023-08-08] MEDS: Sodium Chloride-Nasal SPRAY-ADULT 44 ML BTL NS (01:08)
[2023-08-08] MEDS: DEXTROSE 5%-WATER 1,000 ML 150 ML IV ×2 (01:10→07:46)
[2023-08-08 07:06] LABS: Abs Immature Grans 0.14 10^3/uL (0.0-0.06); Absolute Basophil Count 0.11 10^3/uL (0.0-0.2); Absolute Eosinophil Count 0.86 10^3/uL (0.0-0.7); Absolute Lymphocyte Count 2.03 10^3/uL (1.2-3.4); Absolute Monocyte Count 0.58 10^3/uL (0.1-0.8); Absolute Neutrophil Count 3.25 10^3/uL (1.2-6.7); Basophils % 1.6; Eosinophils % 12.3; HCT 34.9 % (36.0-46.0); HGB 11.8 g/dL (11.2-15.7); Lymphocytes % 29.1; MCH 31.7 pg (27.0-33.0); MCHC 33.8 % (32.0-36.0); MCV 94 fL (80-95); MPV 10.7 fL (8.0-11.0); Monocytes % 8.3; Neutrophils % 46.7; Platelet Count 419 10^3/uL (130-400); RBC 3.72 10^6/uL (3.93-5.22); RDW 12.3 % (11.7-14.6); RDW-SD 42.8 fL; WBC 6.97 10^3/uL (4.4-10.8)
[2023-08-08] MEDS: Divalproex 500 MG TABEC PO (07:38)
[2023-08-08] MEDS: Nabumetone 500 MG TAB 1000 MG PO (07:38)
[2023-08-08] MEDS: Thiamine 100 MG TAB PO (07:38)
[2023-08-08] MEDS: Topiramate 50 MG TAB 200 MG PO (07:38)
[2023-08-08] MEDS: Multivitamin TAB 1 TAB PO (07:38)
[2023-08-08] MEDS: Magnesium Gluconate 500 MG TAB PO (07:38)
[2023-08-08] MEDS: lamoTRIgine 25 MG TAB 50 MG PO (07:39)
[2023-08-08] MEDS: Esomeprazole 40 MG CAPCR PO (07:39)
[2023-08-08] MEDS: Enoxaparin 40 MG/0.4 ML SYR SC (07:39)
[2023-08-08] MEDS: DULoxetine 30 MG CAP 60 MG PO (07:39)
[2023-08-08 07:48] LABS: Anion Gap 11.1 mmol/L (3-11); BUN 7 mg/dL (7-18); CO2 21.9 mmol/L (21.0-32.0); CREATININE 0.8 mg/dL (0.55-1.02); Calcium 8.9 mg/dL (8.5-10.1); Chloride 99 mmol/L (98-107); Estimated GFR 89.15 (mL/min/1.73m2); Folate 7.6 ng/mL (8.6-20.0); Glucose 105 mg/dL (74-106); Magnesium 2.1 mg/dL (1.8-2.4); Potassium 3.4 mmol/L (3.5-5.1); Sodium 132 mmol/L (136-145); Vitamin B12 432 pg/mL (193-986)
[2023-08-08] MEDS: clonazePAM 0.5 MG TAB PO ×2 (08:24→12:24)
[2023-08-08] MEDS: Cyanocobalamin 500 MCG TAB 1000 MCG PO (12:15)
[2023-08-08] MEDS: Folic Acid 1 MG TAB PO (12:15)
[2023-08-08] MEDS: Potassium Chloride 20 MEQ TABCR 40 MEQ PO (12:16)
[2023-08-08] MEDS: amLODIPine 2.5 MG TAB PO (12:16)
[2023-08-08] MEDS: Cyanocobalamin 1000 MCG/ML VIAL IM/SC (12:18)
[2023-08-08 12:41] LABS: Anion Gap 10.2 mmol/L (3-11); BUN 6 mg/dL (7-18); CO2 22.8 mmol/L (21.0-32.0); CREATININE 0.8 mg/dL (0.55-1.02); Calcium 9.1 mg/dL (8.5-10.1); Chloride 98 mmol/L (98-107); Estimated GFR 89.15 (mL/min/1.73m2); Glucose 90 mg/dL (74-106); Potassium 3.9 mmol/L (3.5-5.1); Sodium 131 mmol/L (136-145)
[2023-08-08 16:17] LABS: BUN 7 mg/dL (7-18); CREATININE 0.8 mg/dL (0.55-1.02); Chloride 101 mmol/L (98-107); Estimated GFR 89.15 (mL/min/1.73m2); Glucose 124 mg/dL (74-106); Potassium 4.2 mmol/L (3.5-5.1); Sodium 132 mmol/L (136-145)
[2023-08-08 16:32] LABS: Osmolality Serum 259 mOsm/kg (275-295)
--- NOTE | 2023-08-08 16:42 | DSE_ITS ---
Date of service: 08/08/23 Time of Service: 16:43 DS: Diagnosis Discharge Diagnosis (1) Hyponatremia: Status: Acute (2) Depression: Status: Chronic (3) Alcohol abuse: (4) Migraine headache: Status: Chronic (5) HTN (hypertension): (6) GERD (gastroesophageal reflux disease): (7) B12 deficiency: Status: Acute (8) Folate deficiency: Status: Acute (9) Hypokalemia: Status: Resolved (10) Anxiety: Status: Chronic Discharge Plan Disposition Patient Disposition: Home Condition: Stable Discharge Details Reason For Visit: Hyponatremia Admit Date/Time: 08/06/23 19:35 Admit Provider: Griffin Vazquez Attending Provider: Griffin Vazquez Primary Care Provider: Travis Torres [facility] Course: Ms Boone is a 53 year old female with PMHx of chronic hyponatremia, as well as h/o hypertension on lisinopril, anxiety, depression, tobacco abuse, who was a patient on [facility] hospitalist service from 08/06/23 until 08/08/23 for hyponatremia. She was admitted to the ICU as her sodium went as low as 118. She was treated with normal saline with rapid improvement in her sodium to 128, which then required D5W to prevent from improving further too rapidly. Her sodiums were monitored carefully. The patient did not have any neurological symptoms. This morning, her sodium was 132. She maintained this sodium with D5W discontinued and is able to be discharged home today. Of note, she is not currently drinking alcohol, so this hyponatremia is not related to beer potomania. Her TSH is 2.06. We did stop her nissa inhibitor which sometimes can result in hyponatremia and replaced it with amlodipine. If the hyponatremia recurs, she is on a number of psychiatric medications which could also cause hyponatremia, and this would need to be addressed. She is medically stable for discharge home today. She should have bloodwork done on 08/10/23, and the results should go to her PCP - Dr Torres. Care for patient as well as completion of her discharge summary on day of discharge took 45 minutes. Home Meds and New Rx's Prescriptions: New multivitamin [Multiple Vitamins] Tablet 1 tab PO DAILY Qty: 30 0RF nicotine 14 mg/24 hr Patch 24 Hour 14 mg transdermal DAILY PRN PRNQty: 30 0RF folic acid 1 mg Tablet 1 mg PO DAILY Qty: 30 0RF thiamine mononitrate (vit B1) [Vitamin B-1 (mononitrate)] 100 mg Tablet 100 mg PO DAILY Qty: 30 0RF amlodipine 5 mg tablet 5 mg PO DAILY Qty: 30 0RF cyanocobalamin (vitamin B-12) 1,000 mcg tablet 1,000 mcg PO DAILY Qty: 30 0RF Continued topiramate 200 mg tablet 200 mg PO DAILY clonazepam 0.5 mg tablet 0.5 mg PO TID PRN olanzapine 2.5 mg tablet 2.5 mg PO QHS duloxetine 60 mg capsule,delayed release(DR/EC) 60 mg PO DAILY Aimovig Autoinjector 140 mg/mL auto-injector 140 mg SUBCUT .MONTHLY Relafen DS 1,000 mg tablet 1,000 mg PO BID Qty: 14 0RF divalproex 500 mg tablet,delayed release (DR/EC) 500 mg PO BID Patient Comments: TAKE 1 TABLET BY MOUTH TWICE DAILY esomeprazole magnesium 40 mg capsule,delayed release(DR/EC) 40 mg PO DAILY Patient Comments: TAKE 1 CAPSULE BY MOUTH EVERY DAY WHILE TAKING NABUMETONE lamotrigine 25 mg tablet 50 mg PO DAILY Patient Comments: TAKE 1 TABLET BY MOUTH EVERY DAY Discontinued lisinopril 20 mg tablet 20 mg PO DAILY Patient Comments: TAKE 1 TABLET BY MOUTH EVERY DAY Discharge Instructions Instructions: Folic Acid (By mouth), Amlodipine (By mouth), Hyponatremia (DC), Vitamin B12 Deficiency (GEN), How to Stop Smoking (DC) Additional Instructions: Stop taking lisinopril. Return to the hospital with any fever, bleeding, chest pain, shortness of breath, or any new neurological symptoms. Bloodwork 08/10/23. You should stop smoking! Referrals: Travis Torres [Primary Care Provider] - Activity:: Activity as Tolerated Equipment/Supplies:: No Equipment Needed Diet:: As Tolerated Discharge Orders Discharge Orders: Discharge Order (Routine); Ordered 08/08/23 Ordered By: Annalisa Cerda Other Ambulatory Orders: Basic Metabolic Panel (Routine) Timeframe: [id number] Location: Determined by Patient Ordered By: Annalisa Cerda DS: Summary Time Spent with Patient providing and/or coordinating discharge services: Greater than 30 minutes Status at Discharge Functional status at discharge: independent ambulation Overall status at discharge: patient is back to baseline Mental Status: mental status grossly normal Speech and Movement: speech and movement normal Mood: congruent mood Affect: normal affect Exam Narrative Exam Narrative: General: a pleasant mildly anxious female, A&Ox3, mentating well. HEENT: EOMI, MMM Heart: RRR, no m/r/g Lungs: CTAB Abdomen: soft, nontender, nondistended Extremities: +1 edema BLEs Psych Mental Status: mental status grossly normal Speech and Movement: speech and movement normal Mood: congruent mood Affect: normal affect DS: Data Vitals/I&O Vitals and I&O: Vital Signs Temperature 36.3 C L 08/08/23 12:36 Temperature Source Tympanic 08/08/23 15:43 Pulse 96 H 08/08/23 15:32 Pulse Rhythm Regular 08/08/23 15:44 Pulse 97 H 08/08/23 15:32 Respiratory Rate 16 08/08/23 15:32 Respiratory Effort Normal 08/08/23 15:44 Respiratory Depth Normal 08/08/23 15:44 Respiratory Pattern Normal 08/08/23 15:44 Blood Pressure 139/94 H 08/08/23 15:32 Blood Pressure Mean 106 08/08/23 15:32 Blood Pressure Position Sitting 08/07/23 19:24 Pulse Oximetry 99 08/08/23 15:43 Oxygen Delivery Method Room Air 08/08/23 15:43 Oxygen Flow Rate 0 08/08/23 15:43 Pain Level 0 08/08/23 12:36 Intake & Output 08/07/23 08/08/23 08/08/23 23:59 11:59 23:59 Intake Total 1592 / 3693.0 2296.25 / 2596.25 300 / 2596.25 Output Total 1475 / 5375 2100 / 3300 1200 / 3300 Balance 117 / -1682.0 196.25 / -703.75 -900 / -703.75 Weight 37.1 kg Intake: IV 1250 / 2351.0 1146.25 / 1146.25 Oral 342 / 1342 1150 / 1450 300 / 1450 Output: Urine 1475 / 5375 2100 / 3300 1200 / 3300 Other: Urine Color Yellow Yellow Yellow Urine Appearance Clear Clear Clear Urine Odor None Comment Voids independently in commode Volume of 2 voids. Stool Size Large Large Stool Characteristics Soft Formed Formed Voiding Methods Bedside Commode Bedside Commode Bedside Commode Data Completed and Pending Labs on day of discharge: Labs from last 24 hours 08/08/23 08/08/23 08/08/23 18:00 16:01 12:15 WBC RBC Hgb Hct MCV MCH MCHC RDW Plt Count MPV Immature Gran % Neutrophils % Lymphocytes % Monocytes % Eosinophils % Basophils % Nucleated RBC % Absolute Neutrophils Absolute Lymphocytes Absolute Monocytes Absolute Eosinophils Absolute Basophils Sodium Cancelled 132 L 131 L Potassium Cancelled 4.2 3.9 Chloride Cancelled 101 98 Carbon Dioxide Cancelled 21.0 22.8 Anion Gap Cancelled 10.0 10.2 BUN Cancelled 7 6 L Creatinine Cancelled 0.8 0.8 Est GFR (CKD-EPI 2020) Cancelled 89.15 89.15 Glucose Cancelled 124 H 90 Calcium Cancelled 9.0 9.1 Magnesium Vitamin B12 Folate Cortisol 08/08/23 08/08/23 08/08/23 05:53 05:53 05:53 WBC 6.97 RBC 3.72 L Hgb 11.8 Hct 34.9 L MCV 94 MCH 31.7 MCHC 33.8 RDW 12.3 Plt Count 419 H MPV 10.7 Immature Gran % 2.0 Neutrophils % 46.7 Lymphocytes % 29.1 Monocytes % 8.3 Eosinophils % 12.3 Basophils % 1.6 Nucleated RBC % 0.0 Absolute Neutrophils 3.25 Absolute Lymphocytes 2.03 Absolute Monocytes 0.58 Absolute Eosinophils 0.86 H Absolute Basophils 0.11 Sodium 132 L Potassium 3.4 L Chloride 99 Carbon Dioxide 21.9 Anion Gap 11.1 H BUN 7 Creatinine 0.8 Est GFR (CKD-EPI 2020) 89.15 Glucose 105 Calcium 8.9 Magnesium 2.1 Vitamin B12 Cancelled 432 Folate Cancelled 7.6 L Cortisol Pending 08/08/23 08/07/23 00:20 17:59 WBC RBC Hgb Hct MCV MCH MCHC RDW Plt Count MPV Immature Gran % Neutrophils % Lymphocytes % Monocytes % Eosinophils % Basophils % Nucleated RBC % Absolute Neutrophils Absolute Lymphocytes Absolute Monocytes Absolute Eosinophils Absolute Basophils Sodium 131 L 131 L Potassium 3.6 4.1 Chloride 100 101 Carbon Dioxide 21.1 22.0 Anion Gap 9.9 8.0 BUN 9 9 Creatinine 0.8 1.0 Est GFR (CKD-EPI 2020) 89.15 68.21 Glucose 101 105 Calcium 8.6 8.8 Magnesium Vitamin B12 Folate Cortisol PFSH All Active Problems (Updated 08/08/23 @ 16:44 by Annalisa Cerda MD) Anxiety (Chronic) Folate deficiency (Acute) B12 deficiency (Acute) Discharge planning issues (Acute) DVT prophylaxis (Acute) Depression (Chronic) Migraine headache (Chronic) Hyponatremia (Acute) Distal radius fracture, left (Acute 10/15/22) Right ankle sprain (Acute) Medical History (Updated 08/08/23 @ 16:44 by Annalisa Cerda MD) Alcohol abuse GERD (gastroesophageal reflux disease) HTN (hypertension) Social History Smoking/Tobacco Use Status: Current every day Tobacco Type: cigarettes Smoking risk assessment performed?: Yes Alcohol Intake: never Drug use: Never Substance use type: does not use Housing: house Do you feel safe at home: Yes Do you feel safe in your relationship?: Yes Time Spent with Patient Time Spent with Patient: 45-69 minutes Time was spent: preparing to see the patient(eg.review tests), obtaining and/or reviewing separately otained hiistory, ordering medications,tests, procedures, referring, communicating with other health client care specialist, indepentently interpreting results, counseling the patient and care coordination
[2023-08-10 10:35] LABS: Lyme Ab w Rflx to Lyme Confirm Negative (Negative)
[2023-08-10 12:27] LABS: Lamotrigine 0.9 mcg/mL (3.0-15.0)
[2023-08-10 20:58] LABS: Topiramate 6.1 mcg/mL
[2023-08-10 22:23] LABS: Anaplasma phagocytophilum Negative (Negative); B. miyamotoi PCR Negative (Negative); Babesia divergens/MO-1 Negative (Negative); Babesia duncani Negative (Negative); Babesia microti Negative (Negative); Ehrlichia chaffeensis Negative (Negative); Ehrlichia ewingii/canis Negative (Negative); Ehrlichia muris eauclairensis Negative (Negative)
== END 2023-08-08 17:23 | disposition home or self-care (01) | DRG 641 ==
LOC: ER 19:43 → ICU 08-08 11:24
PROVIDERS: Internal Medicine; Admitting Provider Family Medicine; Emergency Provider Emergency Medicine; PCP Family Medicine; Visit Provider Family Medicine
DX: E87.1 Hypo-osmolality and hyponatremia (principal); E27.40 Unspecified adrenocortical insufficiency; F32.89 Other specified depressive episodes; G43.809 Other migraine, not intractable, without status migrainosus; I10 Essential (primary) hypertension; K21.9 Gastro-esophageal reflux disease without esophagitis; F10.10 Alcohol abuse, uncomplicated; E87.6 Hypokalemia; E53.8 Deficiency of other specified B group vitamins; F41.9 Anxiety disorder, unspecified; Z79.899 Other long term (current) drug therapy; F17.210 Nicotine dependence, cigarettes, uncomplicated
CPT/HCPCS: 00123; 36415; 80048; 80053; 80175; 82533; 83935; 85027; 87798; 99285; J1650; 80201; 82607; 82746; 83735; 83880; 83930; 84300; 84443; 85025; 86618; 99223; 99233; 99239; J3420; J7060

== ENCOUNTER 2023-08-06 20:42 | Outpatient (REF) | payer OTHER, SELFPAY ==
[2023-08-06 16:32] LABS: Anion Gap 8.9 mmol/L (3-11); BUN 9 mg/dL (7-18); CO2 22.1 mmol/L (21.0-32.0); Calcium 9.1 mg/dL (8.5-10.1); Chloride 88 mmol/L (98-107); Estimated GFR 68.21 (mL/min/1.73m2); Glucose 83 mg/dL (74-106); Potassium 4.5 mmol/L (3.5-5.1)
[2023-08-06 16:40] LABS: Sodium 119 mmol/L (136-145)
[2023-08-06 20:32] LABS: Sodium, Urine 36 mmol/L
== END 2023-08-06 20:43 | disposition home or self-care (01) ==
LOC: NCHCN 20:42
PROVIDERS: PCP Family Medicine; Visit Provider Family Medicine
DX: F31.89 Other bipolar disorder (principal); E87.1 Hypo-osmolality and hyponatremia
CPT/HCPCS: 80048; 84300

== ENCOUNTER 2023-08-10 14:36 | Outpatient (CLI) | payer OTHER, SELFPAY ==
[2023-08-10 15:40] LABS: Anion Gap 10.8 mmol/L (3-11); BUN 5 mg/dL (7-18); CO2 20.2 mmol/L (21.0-32.0); CREATININE 0.9 mg/dL (0.55-1.02); Calcium 9.1 mg/dL (8.5-10.1); Chloride 92 mmol/L (98-107); Glucose 94 mg/dL (74-106); Potassium 4.7 mmol/L (3.5-5.1)
[2023-08-10 15:57] LABS: Sodium 123 mmol/L (136-145)
== END 2023-08-10 14:37 | disposition home or self-care (01) ==
LOC: LBO 14:37
PROVIDERS: PCP Family Medicine; Visit Provider Internal Medicine
DX: E87.1 Hypo-osmolality and hyponatremia (principal)
CPT/HCPCS: 36415; 80048

== ENCOUNTER 2023-08-20 11:40 | Outpatient (REF) | payer OTHER, SELFPAY ==
[2023-08-20 15:47] LABS: Anion Gap 8.2 mmol/L (3-11); BUN 6 mg/dL (7-18); CO2 23.8 mmol/L (21.0-32.0); CREATININE 0.9 mg/dL (0.55-1.02); Calcium 9.5 mg/dL (8.5-10.1); Chloride 102 mmol/L (98-107); Glucose 92 mg/dL (74-106); Potassium 5.2 mmol/L (3.5-5.1); Sodium 134 mmol/L (136-145)
== END 2023-08-20 11:41 | disposition home or self-care (01) ==
LOC: NCHCN 11:40
PROVIDERS: PCP Family Medicine; Visit Provider Family Medicine
DX: E87.1 Hypo-osmolality and hyponatremia (principal)
CPT/HCPCS: 80048

== ENCOUNTER 2023-09-21 11:45 | Outpatient (REF) | payer OTHER, SELFPAY ==
[2023-09-23 15:18] LABS: BUN 7 mg/dL (7-18); Chloride 103 mmol/L (98-107); Glucose 91 mg/dL (74-106); Potassium 4.3 mmol/L (3.5-5.1); Sodium 138 mmol/L (136-145)
== END 2023-09-21 11:46 | disposition home or self-care (01) ==
LOC: NCHCN 11:45
PROVIDERS: PCP Family Medicine; Visit Provider Family Medicine
DX: E87.1 Hypo-osmolality and hyponatremia (principal)
CPT/HCPCS: 80048; 82947; 84520; 82435; 84132; 84295

== ENCOUNTER 2023-11-23 17:35 | Outpatient (REF) | payer OTHER, SELFPAY ==
[2023-11-23 18:56] LABS: Abs Immature Grans 0.04 10^3/uL (0.0-0.06); Absolute Basophil Count 0.08 10^3/uL (0.0-0.2); Absolute Lymphocyte Count 1.86 10^3/uL (1.2-3.4); Absolute Monocyte Count 0.51 10^3/uL (0.1-0.8); Eosinophils % 10.4; HCT 41.7 % (36.0-46.0); HGB 13.6 g/dL (11.2-15.7); Immature Grans % 0.5; Lymphocytes % 24.2; MCH 31.1 pg (27.0-33.0); MCHC 32.6 % (32.0-36.0); MCV 95 fL (80-95); MPV 12.4 fL (8.0-11.0); Monocytes % 6.6; Neutrophils % 57.3; Platelet Count 353 10^3/uL (130-400); RBC 4.37 10^6/uL (3.93-5.22); RDW 13.4 % (11.7-14.6); RDW-SD 47.7 fL; WBC 7.69 10^3/uL (4.4-10.8)
[2023-11-23 19:15] LABS: ALT 22 U/L (14-59); AST 11 U/L (15-37); Albumin 3.4 g/dL (3.4-5.0); Alkaline Phosphatase 100 U/L (46-116); Anion Gap 14.8 mmol/L (3-11); BUN 7 mg/dL (7-18); Bilirubin, Total 0.2 mg/dL (0.2-1.0); CO2 20.2 mmol/L (21.0-32.0); CREATININE 0.9 mg/dL (0.55-1.02); Calcium 9.1 mg/dL (8.5-10.1); Chloride 105 mmol/L (98-107); Glucose 114 mg/dL (74-106); NT-proBNP 51 pg/mL (<300); Potassium 3.7 mmol/L (3.5-5.1); Sodium 140 mmol/L (136-145); Total Protein 7.5 g/dL (6.4-8.2)
[2023-11-23 19:29] LABS: D-Dimer 491 ng/mlFEU (<500)
== END 2023-11-23 17:36 | disposition home or self-care (01) ==
LOC: NCHCN 17:35
PROVIDERS: PCP Family Medicine; Visit Provider Family Medicine
DX: R06.09 Other forms of dyspnea (principal)
CPT/HCPCS: 80053; 83880; 85025; 85379

== ENCOUNTER → 2023-11-26 00:35 | Outpatient (CLI) | payer OTHER, SELFPAY ==
--- NOTE | 2023-11-26 14:28 | DI.RAD_ITS ---
Exam(s) XR CHEST 2V PA LATERAL EXAM: XR CHEST 2V PA LATERAL CLINICAL HISTORY: DYSPNEA ON EXERTION, R06.09 TECHNIQUE: 2D digital imaging was performed of the chest. Two images were obtained. PA and lateral views were obtained. COMPARISON: CR,XR XR CHEST 2V PA LATERAL from 03/03/2023 CR,XR XR RIBS BI INCLUDE CHEST from 05/06/2023 FINDINGS: MEDIASTINUM: Normal. HEART: Normal. PULMONARY VASCULATURE: Normal. LUNGS: Linear infiltrates are seen in the lung bases bilaterally. The lungs are otherwise clear. PLEURAL SPACE: No pleural effusion or pneumothorax. BONE:Within normal limits for the patient's age. There is inferior subluxation of the right humerus relative to the glenoid. OTHER FINDINGS:Normal. IMPRESSION: 1. Bilateral linear basilar infiltrates. This may represent atelectasis or scarring. Pneumonia bruno ot be entirely excluded. 2. Inferior subluxation of the right humerus relative to the glenoid. DATA REPOSITORY: RADIATION DOSE DELIVERED:
== END ==
PROVIDERS: PCP Family Medicine; Visit Provider Family Medicine
DX: R91.8 Other nonspecific abnormal finding of lung field (principal)
CPT/HCPCS: 71046

== ENCOUNTER 2024-08-30 00:54 | Emergency (ER) | payer OTHER, MEDICARE, SELFPAY ==
[2024-08-30] VITALS (14 sets, daily range): BP systolic 126–158; BP diastolic 79–124; PULSE 63–115; RESP 16–22; TEMP 36.7; O2SAT 91–97
[2024-08-30] MEDS: Ketorolac 15 MG/ML VIAL IVP (01:18)
[2024-08-30 01:22] LABS: Abs Immature Grans 0.03 10^3/uL (0.0-0.06); Absolute Basophil Count 0.09 10^3/uL (0.0-0.2); Absolute Lymphocyte Count 2.67 10^3/uL (1.2-3.4); Absolute Monocyte Count 0.64 10^3/uL (0.1-0.8); Eosinophils % 4.5 %; HCT 42.8 % (36.0-46.0); HGB 14.2 g/dL (11.2-15.7); Immature Grans % 0.3 %; Lymphocytes % 30.2 %; MCH 31.9 pg (27.0-33.0); MCHC 33.2 % (32.0-36.0); MCV 96 fL (80-95); MPV 10.7 fL (8.0-11.0); Monocytes % 7.2 %; Neutrophils % 56.8 %; Platelet Count 417 10^3/uL (130-400); RBC 4.45 10^6/uL (3.93-5.22); RDW 12.4 % (11.7-14.6); WBC 8.83 10^3/uL (4.4-10.8)
[2024-08-30 01:24] LABS: Lactate 2.4 mmol/L (0.6-1.4)
[2024-08-30] MEDS: Omnipaque 350 MG/ML 100 ML BTL IJ (01:27)
[2024-08-30] MEDS: Normal Saline - Diluent 50 ML VIAL IJ (01:28)
[2024-08-30] MEDS: Normal Saline Flush 10 ML SYR IVP (01:28)
--- NOTE | 2024-08-30 01:45 | DI.CT_ITS ---
Exam(s) CT THORAX ABD/PEL CTA EXAM: CT THORAX ABD/PEL CTA CLINICAL HISTORY: Fhx AAA, flank and abdominal pain. TECHNIQUE: Imaging Protocol: Axial CT angiography was performed with multi-slice acquisition and m ulti-planar and/or 3D reconstructions. CONTRAST MATERIAL: Intravenous: Omnipaque 350 Contrast volume:100 mL Oral: / no COMPARISON: CT CT THORAX ABDOMEN CTA from 09/22/2021 FINDINGS: CHEST: Pulmonary Arteries: No evidence of filling defect to suggest pulmonary emboli. Tracheobronchial tree: Patent where visualized. Mediastinum and Lynda: No dominant adenopathy or fluid collection. Pulmonary parenchyma: No consolidation or dominant measurable mass. Arm basilar atelectasis right gre ater than left. Pleura: No effusion or pneumothorax. Heart: The heart is not dilated. No coronary artery calcifications are seen. Aorta: Thoracic aorta non-dilated. No significant atherosclerotic changes. Bones: Mild degenerative changes and mild scoliosis. Tubes, Catheters, and Lines: None ABDOMEN AND PELVIS: Abdomen: No significant atherosclerotic changes. Celiac axis/mesenteric arteries: No evidence of occlusion or significant stenosis. Renal Arteries: No evidence of occlusion or significant stenosis. There is a single renal artery per fusing each kidney. Aorta: No evidence of occlusion or significant stenosis. No aneurysm or dissection. Pelvis: No significant atherosclerotic changes. Iliac Arteries: No evidence of occlusion or significant stenosis. Common Femoral Arteries: No evidence of occlusion or significant stenosis. ABDOMEN: Liver: Normal density. No measurable mass. Portal, Superior Mesenteric, and Splenic Veins: Unremarkable. Gallbladder and Biliary Tract: Cholecystectomy. No biliary dilatation. Pancreas: Normal density, no abnormal calcifications or inflammatory process. Spleen: Normal. Adrenals: No masses seen. Kidneys: Normal size, contour and axis. No radiodense stones or obstructive uropathy. No suspicious m asses seen. Bilateral renal cysts. No follow-up recommended Bowel: No obstruction or bowel wall thickening. Appendix is unremarkable. Peritoneal Cavity: No ascites, collection or mesenteric inflammatory response. Lymph Nodes: Within normal limits. Bones: Degenerative changes in lower lumbar spine. Soft Tissues: Unremarkable. PELVIS: Bladder: Symmetric distention, no gross wall thickening. Reproductive Organs: Unremarkable as visualized. Lymph Nodes: Within normal limits. Bones: Within normal limits. IMPRESSION: Normal CT Angiogram of the chest, abdomen and pelvis. No acute abnormality in the chest abdomen or p luly. RADIATION DOSE DELIVERED: 984.07mGy.cm Total DLP DATA REPOSITORY: All CT scans at this facility are submitted to the National Radiology Data Registry (NRDR) Dose Index Registry (DIR) with the [employer] (ACR). RADIATION OPTIMIZATION: All CT scans at this facility use at least one of these dose optimization te chniques: automated exposure control; mA and/or kV adjustment per patient size (includes targeted exa ms where dose is matched to clinical indication); or iterative reconstruction.
[2024-08-30 01:52] LABS: ALT 22 U/L (14-59); AST 16 U/L (15-37); Albumin 3.7 g/dL (3.4-5.0); Alkaline Phosphatase 93 U/L (46-116); Anion Gap 11.4 mmol/L (3-11); BUN 9 mg/dL (7-18); Bilirubin, Total 0.26 mg/dL (0.2-1.0); CO2 23.6 mmol/L (21.0-32.0); CREATININE 0.9 mg/dL (0.55-1.02); Calcium 9.7 mg/dL (8.5-10.1); Chloride 104 mmol/L (98-107); Estimated GFR 76.92 (mL/min/1.73m2); Glucose 96 mg/dL (74-106); Potassium 3.8 mmol/L (3.5-5.1); Sodium 139 mmol/L (136-145)
--- NOTE | 2024-08-30 01:58 | ED.GENADUL_ITS ---
Discharge Plan Disposition Patient Disposition: Home Condition: Good Discharge Details Clinical Impression: Urinary tract infection Primary Care Provider: FIDEL GARCIA ED Provider: Mehul Raza Home Meds and New Rx's Prescriptions: New cephalexin 500 mg capsule 500 mg PO QID 7 Days Qty: 28 0RF No Action clonazepam 0.5 mg tablet 0.5 mg PO TID PRN duloxetine 60 mg capsule,delayed release(DR/EC) 60 mg PO DAILY Aimovig Autoinjector 140 mg/mL auto-injector 140 mg SUBCUT .MONTHLY divalproex 500 mg tablet,delayed release (DR/EC) 500 mg PO BID Patient Comments: TAKE 1 TABLET BY MOUTH TWICE DAILY esomeprazole magnesium 40 mg capsule,delayed release(DR/EC) 40 mg PO DAILY Patient Comments: TAKE 1 CAPSULE BY MOUTH EVERY DAY WHILE TAKING NABUMETONE multivitamin [Multiple Vitamins] Tablet 1 tab PO DAILY Qty: 30 0RF thiamine mononitrate (vit B1) [Vitamin B-1 (mononitrate)] 100 mg Tablet 100 mg PO DAILY Qty: 30 0RF amlodipine 5 mg tablet 5 mg PO DAILY Qty: 30 0RF cyanocobalamin (vitamin B-12) 1,000 mcg tablet 1,000 mcg PO DAILY Qty: 30 0RF Discharge Instructions Instructions: Urinary Tract Infection, Adult ED Additional Instructions: At this time you have evidence of urinary tract infection. Please take the antibiotic as directed. Please take cranberry concentrate to help fight the infection. Drink plenty fluids and stay well-hydrated. If you notice any worsening of your symptoms, or any new symptoms such as vomiting, diarrhea, fever, chills, shortness of breath, chest pain, numbness, weakness, or fainting , please return immediately to the emergency department for reevaluation. Please follow up with your primary care provider as soon as possible for reassessment and reevaluation. As always, it was a pleasure participating in your medical care today. Referrals: FIDEL GARCIA, [employer] [Primary Care Provider] - [facility] General Date/Time Provider Initiated Documentation: 08/30/24 01:03 . HPI Narrative: This is a 54-year-old female with a past medical history of migraines, depression, PTSD, anxiety, hypertension from a young age, and a family history positive for AAA's and stroke presents today for evaluation of back and flank pain. Patient states that for the last 6 weeks she has had mild abdominal cramping with occasional vaginal bleeding. She had an ultrasound just the other day which showed evidence of a fibroid. However over the last week she has also had low back pain which she describes as an achy sensation that comes and goes in severity. It is burning occasionally. However she denies any urinary complaints of frequency or urinary burning. She states the right is worse than the left. It is sometimes made worse with movement. She denies any numbness or tingling. No chest pain or shortness of breath. No other complaints at this time. Related Data Home Medications ?Medication ?Instructions ?Recorded ?Confirmed clonazepam 0.5 mg tablet 0.5 mg PO TID PRN 09/22/21 08/30/24 duloxetine 60 mg capsule,delayed 60 mg PO DAILY 09/22/21 08/30/24 release erenumab-aooe 140 mg/mL 140 mg subcut .MONTHLY 10/15/22 08/30/24 subcutaneous auto-injector (Aimovig Autoinjector) divalproex 500 mg tablet,delayed 500 mg PO BID 08/06/23 08/30/24 release esomeprazole magnesium 40 mg 40 mg PO DAILY 08/06/23 08/30/24 capsule,delayed release amlodipine 5 mg tablet 5 mg PO DAILY #30 tabs 08/08/23 08/30/24 cyanocobalamin (vitamin B-12) 1,000 mcg PO DAILY #30 tabs 08/08/23 08/30/24 1,000 mcg tablet multivitamin (Multiple Vitamins 1 tab PO DAILY #30 tabs 08/08/23 08/30/24 tablet) thiamine mononitrate (vit B1) 100 100 mg PO DAILY #30 tabs 08/08/23 08/30/24 mg tablet (Vitamin B-1 (mononitrate)) cephalexin 500 mg capsule 500 mg PO QID 7 days #28 caps 08/30/24 Previous Rx's ?Medication ?Instructions ?Recorded amlodipine 5 mg tablet 5 mg PO DAILY #30 tabs 08/08/23 cyanocobalamin (vitamin B-12) 1,000 mcg PO DAILY #30 tabs 08/08/23 1,000 mcg tablet multivitamin (Multiple Vitamins 1 tab PO DAILY #30 tabs 08/08/23 tablet) thiamine mononitrate (vit B1) 100 100 mg PO DAILY #30 tabs 08/08/ mg tablet (Vitamin B-1 (mononitrate)) cephalexin 500 mg capsule 500 mg PO QID 7 days #28 caps 08/30/24 Allergies Allergy/AdvReac Type Severity Reaction Status Date / Time No Known Allergies Allergy Unverified 08/30/24 01:01 General Stated Complaint: Nk/Back Pain MAIA: 3 Exam Narrative Exam Narrative: 1.Const: Well-nourished, Well-developed, appearing stated age 2.Eyes: PERRL, no conjunctival injection, and symmetrical lids. 3.ENT: Atraumatic external nose and ears. Moist MM. Neck: Symmetric, trachea midline, No thyromegaly. 4.CVS: +S1/S2, Peripheral pulses 2+ and equal in all extremities. Brisk capillary refill in all extremities. 5.RESP: Unlabored respiratory effort. Clear to auscultation bilaterally. No wheezes rales or rhonchi 6.GI: Soft, Nontender/Nondistended, No hepatosplenomegaly. No guarding or rebound. Mild right sided CVA tenderness on percussion. 7.MSK: Normocephalic/Atraumatic, Extremities w/o deformity or ttp No cyanosis or clubbing, Normal movement of all extremities. Mild achiness over the right lower paraspinal area. No midline tenderness to palpation over the CTLS spine. Normal ROM in flexion, extension, side bend, and rotation. Patient has +5 out of 5 strength in the lower extremities in dorsiflexion and plantarflexion, knee flexion and extension, hip flexion and extension. Normal strength for dorsiflexion and plantar flexion of the great toe bilaterally. There is +2 over 2 dorsalis pedis pulses bilaterally. There is normal sensation to the skin with light touch at the foot, knee, and hip. Normal saddle sensation. Good sensation over the deep sural nerve area bilaterally. Reflexes are +2 over 4 in the patellar reflex bilaterally. +5 out of 5 strength in the medial, ulnar, radial nerve distribution bilaterally in the hands as well as intact light touch sensation to these dermatomes on the hands 8.Skin: Warm, Dry. No rashes or lesions. 9.Neuro: soot blower II-XII grossly intact. Sensation grossly intact, no focal ne urologic deficits. 10.Psych: (AAO) x3. Appropriate mood and affect Course Vital Signs Vital signs: Vital Signs Temperature 36.7 C 08/30/24 00:57 Pulse 115 H 08/30/24 00:57 Respiratory Rate 20 08/30/24 00:57 Blood Pressure 158/124 H 08/30/24 00:57 Pulse Oximetry 97 08/30/24 00:57 Temperature 36.7 C 08/30/24 00:57 Temperature Source Oral 08/30/24 00:57 Pulse 97 H 08/30/24 01:31 Respiratory Rate 18 08/30/24 01:31 Blood Pressure 129/79 08/30/24 01:31 Blood Pressure Mean 88 08/30/24 01:31 Blood Pressure Position Sitting 08/30/24 00:57 Pulse Oximetry 93 08/30/24 01:31 Oxygen Delivery Method Room Air 08/30/24 01:15 Oxygen Flow Rate 0 08/30/24 01:15 Pain Level 7 08/30/24 01:18 Lab/Test Results Lab/Test Results: Laboratory Tests Range/Units 08/30/24 01:08 WBC (4.4-10.8) 10^3/uL 8.83 RBC (3.93-5.22) 10^6/uL 4.45 Hgb (11.2-15.7) g/dL 14.2 Hct (36.0-46.0) % 42.8 MCV (80-95) fL 96 H MCH (27.0-33.0) pg 31.9 MCHC (32.0-36.0) % 33.2 RDW (11.7-14.6) % 12.4 Plt Count (130-400) 10^3/uL 417 H MPV (8.0-11.0) fL 10.7 Immature Gran % % 0.3 Neutrophils % % 56.8 Lymphocytes % % 30.2 Monocytes % % 7.2 Eosinophils % % 4.5 Basophils % % 1.0 Nucleated RBC % (0.0-0.3) % 0.0 Absolute Neutrophils (1.2-6.7) 10^3/uL 5.00 Absolute Lymphocytes (1.2-3.4) 10^3/uL 2.67 Absolute Monocytes (0.1-0.8) 10^3/uL 0.64 Absolute Eosinophils (0.0-0.7) 10^3/uL 0.40 Absolute Basophils (0.0-0.2) 10^3/uL 0.09 VBG Lactate (0.6-1.4) mmol/L 2.4 H* Sodium (136-145) mmol/L 139 Potassium (3.5-5.1) mmol/L 3.8 Chloride (98-107) mmol/L 104 Carbon Dioxide (21.0-32.0) mmol/L 23.6 Anion Gap (3-11) mmol/L 11.4 H BUN (7-18) mg/dL 9 Creatinine (0.55-1.02) mg/dL 0.9 Est GFR (CKD-EPI 2020) (mL/min/1.73m2) 76.92 Glucose (74-106) mg/dL 96 Calcium (8.5-10.1) mg/dL 9.7 Total Bilirubin (0.2-1.0) mg/dL 0.26 AST (15-37) U/L 16 ALT (14-59) U/L 22 Alkaline Phosphatase (46-116) U/L 93 Total Protein (6.4-8.2) g/dL 8.0 Albumin (3.4-5.0) g/dL 3.7 Medical Decision Making This is a 54-year-old female with a past medical history of migraines, depression, PTSD, anxiety, hypertension from a young age, and a family history positive for AAA's and stroke presents today for evaluation of back and flank pain. Patient states that for the last 6 weeks she has had mild abdominal cramping with occasional vaginal bleeding. She had an ultrasound just the other day which showed evidence of a fibroid. However over the last week she has also had low back pain which she describes as an achy sensation that comes and goes in severity. It is burning occasionally. However she denies any urinary complaints of frequency or urinary burning. She states the right is worse than the left. It is sometimes made worse with movement. She denies any numbness or tingling. No chest pain or shortness of breath. No other complaints at this time. Exam demonstrates no significant abdominal tenderness. Mild right CVA tenderness and achiness in the right lower paravertebral area. Differential includes urolithiasis, pyelonephritis, muscle spasm. Less likely aortic aneurysm, but this is on the differential with her history/family history. Will get CT imaging, treat with IV Toradol, monitor closely and reassess. 4:03 AM Laboratory workup has returned, no white count or bandemia or left shift. Electrolytes normal, renal function normal, a urinalysis showing evidence of 10- 20 WBCs with small leuk esterase. CT scan negative for acute process kidney stone or other acute abnormality per radiology. On reassessment patient is feeling much better. Pain improved. Suspect urinary tract infection to be the cause of her symptoms. No evidence of septic shock. Heart rate has normalized, blood pressure normal. No fever. 2 g of ceftriaxone were administered here. Will give prescription for Keflex for home. Discussed red flags which to return. I have extensively reviewed the treatment plan and discharge instructions with the patient. I have addressed all patient concerns at this time. The patient was made aware of what symptoms to monitor for that would warrant a return to the emergency department. Discussed the plan with the patient, they demonstrate verbal understanding and agreement with our assessment and plan at this time. The documentation in this chart was dictated using [employer] dictation software. Please excuse any dictation errors. FINDINGS: VASCULATURE: Pulmonary arteries: No pulmonary emboli identified. Aorta: No aortic aneurysm or dissection seen. Celiac trunk and mesenteric arteries: No occlusion or significant stenosis. Renal arteries: No occlusion or significant stenosis. Right iliac arteries: No occlusion or significant stenosis. Left iliac arteries: No occlusion or significant stenosis. CHEST: Lungs: Ground-glass opacities and subsegmental atelectasis at the lung bases. Pleural spaces: No pleural effusion. Heart: No pericardial effusion. ABDOMEN AND PELVIS: Liver: No focal hepatic lesion seen. Gallbladder and biliary ducts: Cholecystectomy. Pancreas: No evidence for acute pancreatitis. Spleen: No splenomegaly. Adrenal glands: Nodular left adrenal thickening. Kidneys and ureters: Lobulations and scarring in the left kidney. Left renal cyst. No hydronephrosis. Stomach and bowel: No intestinal obstruction is evident. Fluid in nondilated small bowel, nonspecific. Areas of apparent mural thickening in the colon commensurate with underdistention. Appendix: No evidence of appendicitis. Intraperitoneal space: No free air. Urinary bladder: No wall thickening. Reproductive: No acute abnormality. Lymph nodes: Nonspecific mesenteric and retroperitoneal lymph nodes. Nonspecific mediastinal lymph nodes. Bones/joints: No acute fracture. Soft tissues: Unremarkable. IMPRESSION: 1. No acute findings to explain reported symptoms. Nonacute findings as outlined above. Thank you for allowing us to participate in Quality:SDOH Health Related Social Needs: No Data to Display PFSH All Active Problems (Updated 08/30/24 @ 04:05 by Mehul Raza DO) Urinary tract infection (Acute) Screening for cervical cancer (Acute) Family history of colon cancer (Acute) Post-menopausal bleeding (Acute) Anxiety (Chronic) Folate deficiency (Acute) B12 deficiency (Acute) Depression (Chronic) Migraine headache (Chronic) Hyponatremia (Acute) Distal radius fracture, left (Acute 10/15/22) Right ankle sprain (Acute) Medical History (Updated 08/30/24 @ 04:05 by Mehul Raza DO) Alcohol abuse GERD (gastroesophageal reflux disease) HTN (hypertension) Social History Smoking/Tobacco Use Status: Former Tobacco Use Smoking risk assessment performed?: Yes Alcohol Intake: never Drug use: Occasionally Substance use type: marijuana Housing: house Do you feel safe at home: Yes Do you feel safe in your relationship?: Yes
[2024-08-30] MEDS: Prochlorperazine 10 MG/2 ML VIAL IVP (02:28)
[2024-08-30 03:07] LABS: Bilirubin Negative (Negative); Blood Negative (Negative); Clarity Clear (Clear); Glucose Negative (Negative); Ketones Negative (Negative); Leukocyte Esterase Small (Negative); Nitrite Negative (Negative); Specific Gravity 1.015 (1.005-1.025); Urobilinogen 0.2 mg/dL (Up to 0.2)
[2024-08-30 03:15] LABS: Bacteria Rare HPF (Negative); C & S Indicated? Yes; Casts Negative LPF (Negative); Crystals Negative HPF (Negative); Epithelial Cells Rare HPF (Negative); Mucus Negative (Negative); RBC Negative HPF (0-2)
--- NOTE | 2024-08-30 03:44 | DI.VRAD_ITS ---
PROCEDURE INFORMATION: Exam: CTA Chest With Contrast CTA Abdomen and Pelvis With Contrast Exam date and time: 08/30/2024 2:06 AM Age: 54 years old Clinical indication: Abdominal pain; Generalized; Patient HX: Fmhx of aaa, abdominal and back pain, uterine bleeding TECHNIQUE: Imaging protocol: Computed tomographic angiography of the chest with contrast. Exam focused on the arteries. Computed tomographic angiography of the abdomen and pelvis with contrast. Exam focused on the arteries. 3D rendering (Not supervised by radiologist): MIP and/or 3D reconstructed images were created by the technologist. Radiation optimization: All CT scans at this facility use at least one of these dose optimization techniques: automated exposure control; mA and/or kV adjustment per patient size (includes targeted exams where dose is matched to clinical indication); or iterative reconstruction. Contrast material: OMNIPAQUE 350; Contrast volume: 100 ml; Contrast route: INTRAVENOUS (IV); COMPARISON: CT THORAX ABDOMEN CTA 09/22/2021 1:34 PM FINDINGS: VASCULATURE: Pulmonary arteries: No pulmonary emboli identified. Aorta: No aortic aneurysm or dissection seen. Celiac trunk and mesenteric arteries: No occlusion or significant stenosis. Renal arteries: No occlusion or significant stenosis. Right iliac arteries: No occlusion or significant stenosis. Left iliac arteries: No occlusion or significant stenosis. CHEST: Lungs: Ground-glass opacities and subsegmental atelectasis at the lung bases. Pleural spaces: No pleural effusion. Heart: No pericardial effusion. ABDOMEN AND PELVIS: Liver: No focal hepatic lesion seen. Gallbladder and biliary ducts: Cholecystectomy. Pancreas: No evidence for acute pancreatitis. Spleen: No splenomegaly. Adrenal glands: Nodular left adrenal thickening. Kidneys and ureters: Lobulations and scarring in the left kidney. Left renal cyst. No hydronephrosis. Stomach and bowel: No intestinal obstruction is evident. Fluid in nondilated small bowel, nonspecific. Areas of apparent mural thickening in the colon commensurate with underdistention. Appendix: No evidence of appendicitis. Intraperitoneal space: No free air. Urinary bladder: No wall thickening. Reproductive: No acute abnormality. Lymph nodes: Nonspecific mesenteric and retroperitoneal lymph nodes. Nonspecific mediastinal lymph nodes. Bones/joints: No acute fracture. Soft tissues: Unremarkable. IMPRESSION: 1. No acute findings to explain reported symptoms. Nonacute findings as outlined above. Dictated and Authenticated by: Lisseth Marks MD. Ordering:FAB Carver MD
[2024-08-30] MEDS: cefTRIAXone 2 GM/50 ML BAG IVPB (03:45)
== END 2024-08-30 04:13 | disposition home or self-care (01) ==
PROVIDERS: Emergency Provider Student in an Organized Health Care Education/Training Program; PCP Nurse Practitioner Family
DX: N93.9 Abnormal uterine and vaginal bleeding, unspecified (principal); N39.0 Urinary tract infection, site not specified; I10 Essential (primary) hypertension; Z87.891 Personal history of nicotine dependence
CPT/HCPCS: 36415; 71275; 80053; 96365; 96375; 99285; 74174; 81003; 81015; 83605; 85025; 87086; J0696; J0780; J1885; J3490

== ENCOUNTER 2024-09-28 14:27 | Outpatient (REF) | payer OTHER, MEDICARE, SELFPAY ==
--- NOTE | 2024-09-28 14:00 | PAPFT_PTH ---
PATIENT: Lisseth Boone LOC: [facility] U#:[id number] AGE/SX: 54/F ROOM: RE09/28/[address]: Jessy Gómez DO : 1970 BED: DIS: 09/28/2024 SPEC #: [id number] RECD: 09/28/24 17:32 STATUS: DEMETRIA REQ #: [id number] MARY: 09/28/24 14:[address]: Jessy Gómez DEPT: [facility] Cytology RECD BY: Ellie Ovalle ENTERED: 09/28/24 17:32 SP TYPE: PAPFT OTHR DR: FIDEL GARCIA NP Tissues: 1 - CX/ENDOCX FOR PAP SMEARS Procedures: PAP THIN PREP/[facility] Screening HPV DNA PROBE Comments: [id number] (HPV 16 & 18/45)
== END 2024-09-28 14:28 | disposition home or self-care (01) ==
LOC: LBN 14:27
PROVIDERS: PCP Nurse Practitioner Family; Visit Provider Obstetrics & Gynecology
DX: N39.0 Urinary tract infection, site not specified (principal); Z01.419 Encounter for gynecological examination (general) (routine) without abnormal findings
CPT/HCPCS: 88142; 87086; 87624

== ENCOUNTER 2025-01-07 16:52 | Emergency (ER) | payer OTHER, SELFPAY ==
[2025-01-07] VITALS (8 sets, daily range): BP systolic 140–183; BP diastolic 90–108; PULSE 68–102; RESP 16–20; TEMP 36.7; O2SAT 98–100
--- NOTE | 2025-01-07 17:15 | DI.CT_ITS ---
Exam(s) CT BRAIN NECK CTA EXAM: CT BRAIN NECK CTA CLINICAL HISTORY: 4 days vertigo, poor balance, eval CVA. TECHNIQUE: Imaging Protocol: Axial CT angiography was performed with multi-slice acquisition and mu lti-planar and MIP reconstructions. CONTRAST MATERIAL: Intravenous: Omnipaque 350 Contrast volume:70 ml COMPARISON: No exams were available for comparison FINDINGS: CT Head W/O and W contrast: Ventricles and Extra axial spaces: Normal in size and morphology for the patient's age. Hemorrhage: None. Cerebral parenchyma: No evidence of acute infarct or mass. Midline shift: None. Brainstem/Cerebellum: No acute findings.. Calvarium: Normal. Visualized Paranasal sinuses/Mastoids: Clear. Soft Tissues: Unremarkable. Enhancement: Normal. Venous sinuses are patent. CTA Brain W: Internal Carotid Arteries: Right: No aneurysm, occlusion or significant stenosis. Left: No aneurysm, occlusion or significant stenosis. Middle Cerebral Arteries: Right: No aneurysm, occlusion or significant stenosis. Left: No aneurysm, occlusion or significant stenosis. Anterior Cerebral Arteries: Right: No aneurysm, occlusion or significant stenosis. Left: No aneurysm, occlusion or significant stenosis. Posterior cerebral Arteries: Right: No aneurysm, occlusion or significant stenosis. Left: No aneurysm, occlusion or significant stenosis. Vertebral Arteries: Right: No aneurysm, occlusion or significant stenosis. Left: No aneurysm, occlusion or significant stenosis. Basilar Artery: No aneurysm, occlusion or significant stenosis. CTA Neck W: Common Carotid: No evidence of plaque. Right: No dissection, occlusion or significant stenosis. Left: No dissection, occlusion or significant stenosis. External Carotid: Right: No dissection, occlusion or significant stenosis. Left: No dissection, occlusion or significant stenosis. Internal Carotid: No evidence of plaque. Right: No dissection, occlusion or significant stenosis. Left: No dissection, occlusion or significant stenosis. Vertebral Artery: Right: No dissection, occlusion or significant stenosis. Left: No dissection, occlusion or significant stenosis. Lung Apices: No acute findings. Bones: No acute abnormality. Advanced degenerative changes from C3-4 through C6-7. There is revers al of the normal cervical lordosis. Soft Tissues: Normal. IMPRESSION: 1. CTA brain: Normal CTA examination of the [place] of [place]. 2. Head CT: No acute abnormality. 3. CTA neck: No evidence of occlusion, significant stenosis or dissection. The preliminary [facility] report was reviewed. RADIATION DOSE DELIVERED: Total DLP DATA REPOSITORY: All CT scans at this facility are submitted to the National Radiology Data Registry (NRDR) Dose Index Registry (DIR) with the [employer] (ACR). RADIATION OPTIMIZATION: All CT scans at this facility use at least one of these dose optimization te chniques: automated exposure control; mA and/or kV adjustment per patient size (includes targeted exa ms where dose is matched to clinical indication); or iterative reconstruction.
[2025-01-07 17:50] LABS: Abs Immature Grans 0.05 10^3/uL (0.0-0.06); Absolute Basophil Count 0.08 10^3/uL (0.0-0.2); Absolute Eosinophil Count 0.71 10^3/uL (0.0-0.7); Absolute Lymphocyte Count 2.31 10^3/uL (1.2-3.4); Absolute Monocyte Count 0.46 10^3/uL (0.1-0.8); Absolute Neutrophil Count 5.91 10^3/uL (1.2-6.7); Basophils % 0.8 %; Eosinophils % 7.5 %; HCT 38.4 % (36.0-46.0); HGB 12.8 g/dL (11.2-15.7); Immature Grans % 0.5 %; Lymphocytes % 24.3 %; MCHC 33.3 % (32.0-36.0); MCV 96 fL (80-95); MPV 12.1 fL (8.0-11.0); Monocytes % 4.8 %; Neutrophils % 62.1 %; Platelet Count 304 10^3/uL (130-400); RDW 13.2 % (11.7-14.6); RDW-SD 47.2 fL; WBC 9.52 10^3/uL (4.4-10.8)
[2025-01-07] MEDS: Ondansetron 4 MG/2 ML VIAL IVP (17:52)
[2025-01-07 18:07] LABS: ALT 16 U/L (14-59); AST 13 U/L (15-37); Albumin 3.5 g/dL (3.4-5.0); Alkaline Phosphatase 84 U/L (46-116); Anion Gap 11.3 mmol/L (3-11); BUN 7 mg/dL (7-18); Bilirubin, Total 0.3 mg/dL (0.2-1.0); CO2 23.7 mmol/L (21.0-32.0); CREATININE 0.9 mg/dL (0.55-1.02); Chloride 105 mmol/L (98-107); Estimated GFR 76.92 (mL/min/1.73m2); Glucose 87 mg/dL (74-106); Magnesium 1.8 mg/dL (1.8-2.4); Potassium 3.2 mmol/L (3.5-5.1); Sodium 140 mmol/L (136-145); Total Protein 7.3 g/dL (6.4-8.2)
[2025-01-07] MEDS: Omnipaque 350 MG/ML 100 ML BTL 70 ML IJ (18:13)
[2025-01-07] MEDS: Normal Saline - Diluent 50 ML VIAL IJ (18:14)
--- NOTE | 2025-01-07 19:37 | DI.VRAD_ITS ---
PROCEDURE INFORMATION: Exam: CTA Head Without And With Contrast, Arteriography Exam date and time: 01/07/2025 6:09 PM Age: 54 years old Clinical indication: Other: 4 days vertigo, poor balance, eval CVA TECHNIQUE: Imaging protocol: Computed tomographic angiography of the head without and with contrast. Exam focused on the arteries. 3D rendering (Not supervised by radiologist): MIP and/or 3D reconstructed images were created by the technologist. Contrast material: OMNIPAQUE 350; Contrast volume: 70 ml; Contrast route: INTRAVENOUS (IV); COMPARISON: No relevant prior studies available. FINDINGS: ANTERIOR CIRCULATION: Right internal carotid artery: Intracranial segment is patent with no significant stenosis or occlusion. No aneurysm. Right middle cerebral artery: No occlusion or significant stenosis. No aneurysm. Right anterior cerebral artery: No occlusion or significant stenosis. No aneurysm. Left internal carotid artery: Intracranial segment is patent with no significant stenosis. No aneurysm. Left middle cerebral artery: No occlusion or significant stenosis. No aneurysm. Left anterior cerebral artery: No occlusion or significant stenosis. No aneurysm. POSTERIOR CIRCULATION: Right vertebral artery: No occlusion or significant stenosis. No aneurysm. Left vertebral artery: No occlusion or significant stenosis. No aneurysm. Basilar artery: No occlusion or significant stenosis. No aneurysm. Right posterior cerebral artery: No occlusion or significant stenosis. No aneurysm. Left posterior cerebral artery: No occlusion or significant stenosis. No aneurysm. HEAD: Brain: Normal. No hemorrhage. Unremarkable white matter. No mass effect. Cerebral ventricles: Normal. No ventriculomegaly. Bones: Unremarkable. No acute fracture. Paranasal sinuses: Visualized sinuses are normal. No fluid levels. Mastoid air cells: Visualized mastoids are normal. No mastoid effusion. Soft tissues: Unremarkable. IMPRESSION: 1. No large vessel occlusion. 2. Unremarkable CT head. PROCEDURE INFORMATION: Exam: CTA Neck Without And With Contrast Exam date and time: 01/07/2025 6:09 PM Age: 54 years old Clinical indication: Other: 4 days vertigo, poor balance, eval CVA TECHNIQUE: Imaging protocol: Computed tomographic angiography of the neck without and with contrast. Exam focused on the cervical segments of the vasculature. 3D rendering (Not supervised by radiologist): MIP and/or 3D reconstructed images were created by the technologist. Contrast material: OMNIPAQUE 350; Contrast volume: 70 ml; Contrast route: INTRAVENOUS (IV); COMPARISON: CT THORAX ABD/PEL CTA 08/30/2024 2:06 AM FINDINGS: Right common carotid artery: No stenosis. No dissection or occlusion. Right internal carotid artery: No stenosis of the extracranial segment. No dissection or occlusion. Right external carotid artery: No occlusion or stenosis of the origin. Left common carotid artery: No stenosis. No dissection or occlusion. Left internal carotid artery: No stenosis of the extracranial segment. No dissection or occlusion. Left external carotid artery: No occlusion or stenosis of the origin. Right vertebral artery: No stenosis. No dissection or occlusion. Left vertebral artery: No stenosis. No dissection or occlusion. Soft tissues: Normal. No significant soft tissue swelling. Bones/joints: There is significant cervical kyphosis. Degenerative disc space narrowing with mild disc bulge and uncovertebral spurring of the C3-C4, C4-C5, C5-C6 and C6-C7 disc levels. Moderate multilevel facet arthropathy with grade 1 anterolisthesis of C2, C3 and C4. No acute fracture. IMPRESSION: 1. No carotid stenosis. Patent bilateral vertebral arteries 2. Significant kyphosis and degenerative changes of the cervical spine. REFERENCES: NASCET CRITERIA. The degree of stenosis in the cervical segment of the internal carotid artery is based on NASCET criteria. Normal is no stenosis. Mild is less than 50% stenosis. Moderate is 50-69% stenosis. Severe is 70% to 99% stenosis. Total occlusion is no detectable patent lumen. Dictated and Authenticated by: Nas Gardner MD. Orderin St. Kris Richardson MD
[2025-01-07] MEDS: Metoclopramide 10 MG/2 ML VIAL IVP (20:40)
[2025-01-07] MEDS: diphenhydrAMINE 50 MG/ML VIAL 25 MG IVP (20:41)
[2025-01-07] MEDS: Ketorolac 15 MG/ML VIAL IVP (20:41)
[2025-01-07] MEDS: Potassium Chloride 20 MEQ TABCR 40 MEQ PO (20:42)
[2025-01-07] MEDS: Lactated Ringers 1,000 ML 1000 ML IV (20:42)
--- NOTE | 2025-01-07 20:45 | ED.GENADUL_ITS ---
Discharge Plan Disposition Patient Disposition: Home Condition: Stable Discharge Details Clinical Impression: Migraine headache, Vertigo Primary Care Provider: FIDEL GARCIA ED Provider: Debra Mcnally Home Meds and New Rx's Prescriptions: New meclizine 25 mg tablet 25 mg PO BID PRNQty: 10 0RF No Action clonazepam 0.5 mg tablet 0.5 mg PO TID PRN duloxetine 60 mg capsule,delayed release(DR/EC) 60 mg PO DAILY Aimovig Autoinjector 140 mg/mL auto-injector 140 mg SUBCUT .MONTHLY divalproex 500 mg tablet,delayed release (DR/EC) 500 mg PO BID Patient Comments: TAKE 1 TABLET BY MOUTH TWICE DAILY esomeprazole magnesium 40 mg capsule,delayed release(DR/EC) 40 mg PO DAILY Patient Comments: TAKE 1 CAPSULE BY MOUTH EVERY DAY WHILE TAKING NABUMETONE multivitamin [Multiple Vitamins] Tablet 1 tab PO DAILY Qty: 30 0RF thiamine mononitrate (vit B1) [Vitamin B-1 (mononitrate)] 100 mg Tablet 100 mg PO DAILY Qty: 30 0RF cyanocobalamin (vitamin B-12) 1,000 mcg tablet 1,000 mcg PO DAILY Qty: 30 0RF trazodone 50 mg tablet 50 mg PO QHS Patient Comments: TAKE 1 TABLET BY MOUTH EVERY NIGHT Discharge Instructions Instructions: Vertigo (a type of dizziness) Additional Instructions: You were seen in the emergency department today for evaluation of vertigo and nausea. In our department you had a full physical examination performed, the laboratory studies that were reassuring that you did have mildly low potassium, which was repleted with a pill here in the emergency department. You can inc rease your potassium at home with potassium rich foods such as bananas, potatoes, and leafy greens. You had a CT scan of your brain that did not show any abnormalities such as bleeding, stroke, or blood vessel problems. You had laboratory studies that were reassuring. I am most concerned for a complex migraine, as well as a potential condition known as vertigo. Please continue to take all your medications as prescribed, and utilize Tylenol, ibuprofen, and good hydration to prevent and manage migraines. I provided you with a prescription for a medication called meclizine, which you can take for vertigo symptoms. Please follow-up with your primary care provider in the next few days to discuss this visit and any symptoms that change, worsen, or persist. Thank you for allowing us to be part of your care. HPI General Mode of arrival: ambulatory . Date/Time Provider Initiated Documentation: 01/07/25 17:06 . Limitations to Documentation: no limitations . Information obtained by: patient, family and old records reviewed . HPI Narrative: This is a 54-year-old female patient with a past medical history significant for migraine headaches, hyponatremia, presenting for evaluation of dizziness and nausea. The patient reports that the symptoms started about 4 days ago, she did have an aura with some flashers prior to this and got a mild headache similar to her typical migraines. She states that she has been taking her medications as prescribed, but since this started she has felt like she is walking on a strip, feeling seasick. She states that she feels like her balance is off, and that her head is spinning. She has not experienced any loss of consciousness, trauma, does feel that this is exacerbated with movement and looking at the bilateral extremes of vision. She is not experiencing any severe pain right now other than a mild headache, endorses nausea, no vomiting. Related Data Home Medications ?Medication ?Instructions ?Recorded ?Confirmed clonazepam 0.5 mg tablet 0.5 mg PO TID PRN 09/22/21 01/07/25 duloxetine 60 mg capsule,delayed 60 mg PO DAILY 09/22/21 01/07/25 release erenumab-aooe 140 mg/mL 140 mg subcut .MONTHLY 10/15/22 01/07/25 subcutaneous auto-injector (Aimovig Autoinjector) divalproex 500 mg tablet,delayed 500 mg PO BID 08/06/23 01/07/25 release esomeprazole magnesium 40 mg 40 mg PO DAILY 08/06/23 01/07/25 capsule,delayed release cyanocobalamin (vitamin B-12) 1,000 mcg PO DAILY #30 tabs 08/08/23 01/07/25 1,000 mcg tablet multivitamin (Multiple Vitamins 1 tab PO DAILY #30 tabs 08/08/23 01/07/25 tablet) thiamine mononitrate (vit B1) 100 100 mg PO DAILY #30 tabs 08/08/23 01/07/25 mg tablet (Vitamin B-1 (mononitrate)) meclizine 25 mg tablet 25 mg PO BID PRN #10 tabs 01/07/25 trazodone 50 mg tablet 50 mg PO QHS 01/07/25 01/07/25 Previous Rx's ?Medication ?Instructions ?Recorded cyanocobalamin (vitamin B-12) 1,000 mcg PO DAILY #30 tabs 08/08/23 1,000 mcg tablet multivitamin (Multiple Vitamins 1 tab PO DAILY #30 tabs 08/08/23 tablet) thiamine mononitrate (vit B1) 100 100 mg PO DAILY #30 tabs 08/08/23 mg tablet (Vitamin B-1 (mononitrate)) meclizine 25 mg tablet 25 mg PO BID PRN #10 tabs 01/07/25 Allergies Allergy/AdvReac Type Severity Reaction Status Date / Time No Known Allergies Allergy Verified 01/07/25 16:59 General Stated Complaint: GenMedical MAIA: 3 Exam Narrative Exam Narrative: Gen: awake and alert, in no apparent distress. Appears well nourished. HEENT: PERRL, EOMs full with extinguishable horizontal nystagmus bilaterally. External ears and nose normal, mucous membranes moist. Neck: Supple, full range of motion, no observable masses Lungs: No increased work of breathing, lung sounds clear and equal bilaterally without wheezes, rhonchi, or rales. CV: Heart with regular rate and rhythm, no murmurs auscultated. Strong and symmetrical radial pulses. Abdomen: Soft, nondistended, non-tender to palpation. No rigidity, rebound tenderness, or guarding. MSK: No joint swelling, no redness. Full ROM without limitation, no external traumatic findings. Skin: No rashes or lesions to visualized skin. Normal color, warm, and dry. Neuro: Cranial nerves II-XII intact and symmetrical bilaterally. 5/5 strength in all muscle groups x4 extremities. No sensory deficits. Accurate targeting though slow and purposeful with aggiep-aw-vnlr testing bilaterally, dbqg-[id number] normal. No pronator drift. Psych: Appropriate for situation. Course Vital Signs Vital signs: Vital Signs Temperature 36.7 C 01/07/25 17:01 Pulse 102 H 01/07/25 17:01 Respiratory Rate 20 01/07/25 17:01 Blood Pressure 140/101 H 01/07/25 17:01 Pulse Oximetry 98 01/07/25 17:01 Temperature 36.7 C 01/07/25 17:48 Temperature Source Oral 01/07/25 17:48 Pulse 68 01/07/25 19:42 Respiratory Rate 16 01/07/25 19:43 Respiratory Effort Normal, Non-Labored 01/07/25 19:43 Respiratory Depth Normal 01/07/25 19:43 Respiratory Pattern Normal 01/07/25 19:43 Blood Pressure 183/108 H 01/07/25 19:42 Blood Pressure Mean 133 01/07/25 19:42 Blood Pressure Position Sitting 01/07/25 17:48 Pulse Oximetry 100 01/07/25 19:42 Oxygen Delivery Method Room Air 01/07/25 19:42 Oxygen Flow Rate 0 01/07/25 19:42 Lab/Test Results Lab/Test Results: Laboratory Tests Range/Units 01/07/25 17:44 WBC (4.4-10.8) 10^3/uL 9.52 RBC (3.93-5.22) 10^6/uL 4.00 Hgb (11.2-15.7) g/dL 12.8 Hct (36.0-46.0) % 38.4 MCV (80-95) fL 96 H MCH (27.0-33.0) pg 32.0 MCHC (32.0-36.0) % 33.3 RDW (11.7-14.6) % 13.2 Plt Count (130-400) 10^3/uL 304 MPV (8.0-11.0) fL 12.1 H Immature Gran % % 0.5 Neutrophils % % 62.1 Lymphocytes % % 24.3 Monocytes % % 4.8 Eosinophils % % 7.5 Basophils % % 0.8 Nucleated RBC % (0.0-0.3) % 0.0 Absolute Neutrophils (1.2-6.7) 10^3/uL 5.91 Absolute Lymphocytes (1.2-3.4) 10^3/uL 2.31 Absolute Monocytes (0.1-0.8) 10^3/uL 0.46 Absolute Eosinophils (0.0-0.7) 10^3/uL 0.71 H Absolute Basophils (0.0-0.2) 10^3/uL 0.08 PT (9.1-11.1) sec 10.0 INR (0.9-1.1) 1.0 Sodium (136-145) mmol/L 140 Potassium (3.5-5.1) mmol/L 3.2 L Chloride (98-107) mmol/L 105 Carbon Dioxide (21.0-32.0) mmol/L 23.7 Anion Gap (3-11) mmol/L 11.3 H BUN (7-18) mg/dL 7 Creatinine (0.55-1.02) mg/dL 0.9 Est GFR (CKD-EPI 2020) (mL/min/1.73m2) 76.92 Glucose (74-106) mg/dL 87 Calcium (8.5-10.1) mg/dL 9.0 Magnesium (1.8-2.4) mg/dL 1.8 Total Bilirubin (0.2-1.0) mg/dL 0.3 AST (15-37) U/L 13 L ALT (14-59) U/L 16 Alkaline Phosphatase (46-116) U/L 84 Total Protein (6.4-8.2) g/dL 7.3 Albumin (3.4-5.0) g/dL 3.5 Medical Decision Making This is a 54-year-old female patient presenting for evaluation of vertigo and headache with nausea. Differential includes but is not limited to migraine, certainly considered other central causes of vertigo including posterior circulation stroke, vascular abnormality, intracranial hemorrhage. The duration of symptoms makes BPPV less likely, though I did consider other inner ear issues including labyrinthitis and M?ni?re's disease. Considered metabolic derangement including hyponatremia, as the patient has had similar symptoms with this before. I initially provided the patient with a dose of Zofran, obtain laboratory studies to include CBC, CMP, magnesium, INR, and will obtain a CTA of the brain and neck. -I independently interpreted the laboratory studies, which show no significant leukocytosis, anemia, or thrombocytopenia. The chemistry panel is without evidence of electrolyte abnormality, kidney dysfunction, or liver injury other than a slightly low potassium of 3.2 which was repleted orally., CTA reviewed by myself, and the radiologist report notes no intracranial hemorrhage, vascular abnormalities, or evidence of CVA. Given this finding, I feel comfortable proceeding with a full migraine cocktail to include Toradol, IV fluids, Reglan and Benadryl. On reassessment, the patient reports resolution of her symptoms and was able to get up and ambulate without difficulty. I am most concerned given this finding for atypical/complex migraine. I did provide her with a prescription for meclizine to trial at home if she experiences vertigo again. At this time, the patient has had a full medical evaluation and is safe for discharge to home. They are hemodynamically stable, ambulatory, and tolerating PO. They are understanding of the follow-up plan and return precautions. They left our facility without incident. Debra Mcnally MD Quality:SDAR Health Related Social Needs: No Data to Display PFSH All Active Problems (Updated 01/07/25 @ 22:26 by Debra Mcnally MD) Vertigo (Acute) Well woman exam with routine gynecological exam (Acute) Screening for cervical cancer (Acute) Family history of colon cancer (Acute) Post-menopausal bleeding (Acute) Anxiety (Chronic) Folate deficiency (Acute) B12 deficiency (Acute) Depression (Chronic) Migraine headache (Chronic) Hyponatremia (Acute) Distal radius fracture, left (Acute 10/15/22) Right ankle sprain (Acute) Medical History Alcohol abuse GERD (gastroesophageal reflux disease) HTN (hypertension) Social History Smoking/Tobacco Use Status: Former Tobacco Use Smoking risk assessment performed?: Yes Alcohol Intake: current Alcohol Intake frequency: a few times a week Alcohol type: hard liquor Drug use: Occasionally Substance use type: marijuana Housing: house Do you feel safe at home: Yes Do you feel safe in your relationship?: Yes
== END 2025-01-07 22:54 | disposition home or self-care (01) ==
PROVIDERS: Emergency Provider Emergency Medicine; PCP Nurse Practitioner Family
DX: G43.909 Migraine, unspecified, not intractable, without status migrainosus (principal); R42 Dizziness and giddiness; I10 Essential (primary) hypertension; Z87.891 Personal history of nicotine dependence
CPT/HCPCS: 36415; 70496; 70498; 80053; 96361; 96374; 96375; 99285; 83735; 85025; 85610; J1200; J1885; J2405; J2765; J3490

== ENCOUNTER 2025-01-25 14:29 | Outpatient (REF) | payer MEDICARE, OTHER, SELFPAY ==
[2025-01-25 18:40] LABS: Abs Immature Grans 0.06 10^3/uL (0.0-0.06); Absolute Eosinophil Count 0.92 10^3/uL (0.0-0.7); Absolute Lymphocyte Count 3.06 10^3/uL (1.2-3.4); Absolute Monocyte Count 0.58 10^3/uL (0.1-0.8); Absolute Neutrophil Count 3.93 10^3/uL (1.2-6.7); Basophils % 1.2 %; Eosinophils % 10.6 %; HCT 39.3 % (36.0-46.0); Immature Grans % 0.7 %; Lymphocytes % 35.4 %; MCH 32.2 pg (27.0-33.0); MCHC 33.1 % (32.0-36.0); MCV 97 fL (80-95); MPV 12.4 fL (8.0-11.0); Monocytes % 6.7 %; Neutrophils % 45.4 %; Platelet Count 347 10^3/uL (130-400); RBC 4.04 10^6/uL (3.93-5.22); RDW 12.7 % (11.7-14.6); RDW-SD 45.8 fL; WBC 8.65 10^3/uL (4.4-10.8)
[2025-01-25 18:54] LABS: Anion Gap 9.4 mmol/L (3-11); BUN 8 mg/dL (7-18); CO2 28.6 mmol/L (21.0-32.0); Calcium 9.2 mg/dL (8.5-10.1); Chloride 103 mmol/L (98-107); Estimated GFR 67.78 (mL/min/1.73m2); Glucose 76 mg/dL (74-106); Potassium 3.6 mmol/L (3.5-5.1); Sodium 141 mmol/L (136-145)
== END 2025-01-25 14:30 | disposition home or self-care (01) ==
LOC: NCHCN 14:29
PROVIDERS: PCP Student in an Organized Health Care Education/Training Program; Visit Provider Student in an Organized Health Care Education/Training Program
DX: I10 Essential (primary) hypertension (principal)
CPT/HCPCS: 80048; 85025

== ENCOUNTER 2025-02-19 10:20 | Emergency (ER) | payer OTHER, SELFPAY ==
[2025-02-19] VITALS (12 sets, daily range): BP systolic 99–152; BP diastolic 74–104; PULSE 91–124; RESP 16–18; TEMP 36.4; O2SAT 98–100
--- NOTE | 2025-02-19 10:45 | RT.EKG_ITS ---
APPROVED REPORT Exam: Resting ECG Reason for Exam: Eval QT Patient Location: E HR:107 bpm ECG Measurements Heart Rate 107 AXIS ME 165 P 56 QRSd 79 QRS 59 QT 342 T 38 QTc 457 Conclusion Sinus tachycardia 107 no stemi
[2025-02-19] MEDS: Normal Saline 500 ML IV (11:25)
[2025-02-19 11:43] LABS: Abs Immature Grans 0.06 10^3/uL (0.0-0.06); HCT 41.8 % (36.0-46.0); HGB 14.5 g/dL (11.2-15.7); Immature Grans % 0.6 %; MCH 31.7 pg (27.0-33.0); MCHC 34.7 % (32.0-36.0); MCV 91 fL (80-95); MPV 11.5 fL (8.0-11.0); Platelet Count 399 10^3/uL (130-400); RBC 4.58 10^6/uL (3.93-5.22); RDW 12.8 % (11.7-14.6); RDW-SD 41.5 fL; WBC 9.80 10^3/uL (4.4-10.8)
[2025-02-19 11:52] LABS: ALT 25 U/L (14-59); AST 19 U/L (15-37); Albumin 3.8 g/dL (3.4-5.0); Alkaline Phosphatase 111 U/L (46-116); Anion Gap 13.8 mmol/L (3-11); BUN 4 mg/dL (7-18); Bilirubin, Total 0.5 mg/dL (0.2-1.0); CO2 23.2 mmol/L (21.0-32.0); Calcium 9.8 mg/dL (8.5-10.1); Chloride 101 mmol/L (98-107); Estimated GFR 88.60 (mL/min/1.73m2); Glucose 100 mg/dL (74-106); Magnesium 1.9 mg/dL (1.8-2.4); Sodium 138 mmol/L (136-145); Total Protein 8.7 g/dL (6.4-8.2)
[2025-02-19 11:53] LABS: Potassium 2.7 mmol/L (3.5-5.1)
--- NOTE | 2025-02-19 12:24 | W.ED.GENAD ---
Discharge Plan Disposition Patient Disposition: Home Condition: Stable Discharge Details Clinical Impression: Acute hypokalemia, UTI (urinary tract infection), Nausea vomiting and diarrhea Primary Care Provider: Christopher Knott ED Provider: Meera Damian Home Meds and New Rx's Prescriptions: New cephalexin 500 mg tablet 500 mg PO BID 7 Days Qty: 14 0RF ondansetron 4 mg tablet,disintegrating 4 mg PO Q8H PRN (Reason: nausea and vomiting) 4 Days Qty: 9 0RF Rx Instructions: Take 1 tablet up to 3 times daily as needed for nausea and vomiting 20 minutes prior to meals. No Action clonazepam 0.5 mg tablet 0.5 mg PO TID PRN duloxetine 60 mg capsule,delayed release(DR/EC) 60 mg PO DAILY Aimovig Autoinjector 140 mg/mL auto-injector 140 mg SUBCUT .MONTHLY divalproex 500 mg tablet,delayed release (DR/EC) 500 mg PO BID Patient Comments: TAKE 1 TABLET BY MOUTH TWICE DAILY esomeprazole magnesium 40 mg capsule,delayed release(DR/EC) 40 mg PO DAILY Patient Comments: TAKE 1 CAPSULE BY MOUTH EVERY DAY WHILE TAKING NABUMETONE multivitamin [Multiple Vitamins] Tablet 1 tab PO DAILY Qty: 30 0RF thiamine mononitrate (vit B1) [Vitamin B-1 (mononitrate)] 100 mg Tablet 100 mg PO DAILY Qty: 30 0RF cyanocobalamin (vitamin B-12) 1,000 mcg tablet 1,000 mcg PO DAILY Qty: 30 0RF trazodone 50 mg tablet 50 mg PO QHS Patient Comments: TAKE 1 TABLET BY MOUTH EVERY NIGHT meclizine 25 mg tablet 25 mg PO BID PRNQty: 10 0RF Discharge Instructions Instructions: Hypokalemia, High Potassium Diet, Urinary Tract Infection, Adult ED, Nausea and Vomiting, Adult ED Additional Instructions: At this time today you have been shown to have low potassium. Please practice a diet high in potassium. Consider taking taking an [id number] potassium supplement for the next few days. It also shows that you have a urinary tract infection. Please take the antibiotic as prescribed twice daily with yogurt or probiotic for the next 7 days. You were given the first dose here in the department. Please follow-up closely with your primary care provider within the next 3 to 5 days. Follow up with primary care provider in 3-5 days to discuss ER follow-up . Return to ED sooner if any worsening fever over 100.8, dizziness lightheadedness, fainting, worsening abdominal pain or concerns. Please take Tylenol or Ibuprofen with food every 4-6 hours as needed for pain and swelling. Thank you for allowing us to care for you today. Referrals: Christopher Knott [Primary Care Provider, Medicine] - 5 days Referral Note: Hypokalemia, UTI ER follow up Discharge Data Discharge Date/Time-TO BE ENTERED AT DEPARTURE: 02/19/25 15:07 HPI General Date/Time Provider Initiated Documentation: 02/19/25 10:59. Related Data Home Medications ?Medication ?Instructions ?Recorded ?Confirmed clonazepam 0.5 mg tablet 0.5 mg PO TID PRN 09/22/21 02/19/25 duloxetine 60 mg capsule,delayed 60 mg PO DAILY 09/22/21 02/19/25 release erenumab-aooe 140 mg/mL 140 mg subcut .MONTHLY 10/15/22 02/19/25 subcutaneous auto-injector (Aimovig Autoinjector) divalproex 500 mg tablet,delayed 500 mg PO BID 08/06/23 02/19/25 release esomeprazole magnesium 40 mg 40 mg PO DAILY 08/06/23 02/19/25 capsule,delayed release cyanocobalamin (vitamin B-12) 1,000 mcg PO DAILY #30 tabs 08/08/23 02/19/25 1,000 mcg tablet multivitamin (Multiple Vitamins 1 tab PO DAILY #30 tabs 08/08/23 02/19/25 tablet) thiamine mononitrate (vit B1) 100 100 mg PO DAILY #30 tabs 08/08/23 02/19/25 mg tablet (Vitamin B-1 (mononitrate)) meclizine 25 mg tablet 25 mg PO BID PRN #10 tabs 01/07/25 02/19/25 trazodone 50 mg tablet 50 mg PO QHS 01/07/25 02/19/25 cephalexin 500 mg tablet 500 mg PO BID 7 days #14 tabs 02/19/25 ondansetron 4 mg disintegrating 4 mg PO Q8H PRN nausea and 02/19/25 tablet vomiting 4 days #9 tabs Previous Rx's ?Medication ?Instructions ?Recorded cyanocobalamin (vitamin B-12) 1,000 mcg PO DAILY #30 tabs 08/08/23 1,000 mcg tablet multivitamin (Multiple Vitamins 1 tab PO DAILY #30 tabs 08/08/23 tablet) thiamine mononitrate (vit B1) 100 100 mg PO DAILY #30 tabs 08/08/23 mg tablet (Vitamin B-1 (mononitrate)) meclizine 25 mg tablet 25 mg PO BID PRN #10 tabs 01/07/25 cephalexin 500 mg tablet 500 mg PO BID 7 days #14 tabs 02/19/25 ondansetron 4 mg disintegrating 4 mg PO Q8H PRN nausea and 02/19/25 tablet vomiting 4 days #9 tabs Allergies Allergy/AdvReac Type Severity Reaction Status Date / Time No Known Allergies Allergy Verified 02/19/25 10:52 General Stated Complaint: Nausea/Vomit/Diar MAIA: 3 Review of Systems All systems reviewed & are unremarkable except as noted in HPI and below Constitutional Constitutional: Reports as per HPI Gastrointestinal Gastrointestinal: Reports abdominal pain, Reports diarrhea, Reports loose stools, Reports nausea and Reports vomiting Course Vital Signs Vital signs: Vital Signs Temperature 36.4 C L 02/19/25 10:33 Pulse 124 H 02/19/25 10:33 Respiratory Rate 18 02/19/25 10:33 Blood Pressure 152/104 H 02/19/25 10:33 Pulse Oximetry 98 02/19/25 10:33 Temperature 36.4 C L 02/19/25 10:48 Temperature Source Oral 02/19/25 10:48 Pulse 101 H 02/19/25 12:18 Respiratory Rate 16 02/19/25 12:18 Blood Pressure 143/100 H 02/19/25 12:18 Blood Pressure Mean 114 02/19/25 12:18 Blood Pressure Position Sitting 02/19/25 10:48 Pulse Oximetry 100 02/19/25 12:18 Oxygen Delivery Method Room Air 02/19/25 12:18 Oxygen Flow Rate 0 02/19/25 12:18 Pain Level 7 02/19/25 10:33 Lab/Test Results Lab/Test Results: Laboratory Tests Range/Units 02/19/25 11:25 WBC (4.4-10.8) 10^3/uL 9.80 RBC (3.93-5.22) 10^6/uL 4.58 Hgb (11.2-15.7) g/dL 14.5 Hct (36.0-46.0) % 41.8 MCV (80-95) fL 91 MCH (27.0-33.0) pg 31.7 MCHC (32.0-36.0) % 34.7 RDW (11.7-14.6) % 12.8 Plt Count (130-400) 10^3/uL 399 MPV (8.0-11.0) fL 11.5 H Immature Gran % % 0.6 Neutrophils % % 52.4 Lymphocytes % % 30.3 Monocytes % % 6.9 Eosinophils % % 8.6 Basophils % % 1.2 Nucleated RBC % (0.0-0.3) % 0.0 Absolute Neutrophils (1.2-6.7) 10^3/uL 5.13 Absolute Lymphocytes (1.2-3.4) 10^3/uL 2.97 Absolute Monocytes (0.1-0.8) 10^3/uL 0.68 Absolute Eosinophils (0.0-0.7) 10^3/uL 0.84 H Absolute Basophils (0.0-0.2) 10^3/uL 0.12 Sodium (136-145) mmol/L 138 Potassium (3.5-5.1) mmol/L 2.7 L* Chloride (98-107) mmol/L 101 Carbon Dioxide (21.0-32.0) mmol/L 23.2 Anion Gap (3-11) mmol/L 13.8 H BUN (7-18) mg/dL 4 L Creatinine (0.55-1.02) mg/dL 0.8 Est GFR (CKD-EPI 2020) (mL/min/1.73m2) 88.60 Glucose (74-106) mg/dL 100 Calcium (8.5-10.1) mg/dL 9.8 Magnesium (1.8-2.4) mg/dL 1.9 Total Bilirubin (0.2-1.0) mg/dL 0.5 AST (15-37) U/L 19 ALT (14-59) U/L 25 Alkaline Phosphatase (46-116) U/L 111 Total Protein (6.4-8.2) g/dL 8.7 H Albumin (3.4-5.0) g/dL 3.8 Medical Decision Making 54-year-old female presents to the ER with nausea vomiting diarrhea for the last 3 days she states that she is having a hard time sleeping due to the pain. She also reports some left lower quadrant abdominal pain for the last 3 days. She did not take any of her medications today. She also reports increased fatigue. She was seen at urgent care and referred here. Workup ordered including CBC CMP EKG to eval QTc, urinalysis UDS Differential diagnosis includes not limited to electrolyte disturbance, gastroenteritis, urinary tract infection, internal bleeding, bowel obstruction less likely appendicitis as patient has no guarding or tenderness in the right lower quadrant, diverticulitis however no guarding or pinpoint tenderness in the left lower quadrant. On exam she is awake alert and oriented, hypertensive tachycardic upon arrival with a heart rate of 124 temp is 36.4 O2 sat 98%, she does have generalized abdominal pain no guarding or masses palpated. Initial potassium was 2.7 which is critically low. Will give 40 mill equivalents of potassium p.o., urinalysis is pending at this time. Will give 10 mEQ of potassium IV with a saline carrier. Instructed ED staff to place patient on cardiac monitoring. Will repeat BMP after K infusion. Urinalysis shows trace ketones small leukocytes 10-20 WBCs moderate epithelials cultures pending at this time. Moderate bacteria. UDS shows THC screen positive. Will give 1 g of ceftriaxone IV piggyback and treat for UTI and hypokalemia. No leukocytosis, please see remainder of labs below On patient reevaluation she reports that she is still feeling poorly. Heart rate has come down to 101 blood pressure is 99/74. She is receiving 1 g of ceftriaxone IV piggyback. Her repeat BMP shows sodium 136 potassium is improved at 3.2 BUN 5 creatinine 0.6. She is attempting to give a stool specimen for 3 days of diarrhea. If unable to give a stool specimen will have her follow-up with her PCP. She was unable to provide a sample here in the department. Will send her with outpatient stool collection kit and follow-up with PCP. She is ambulatory in the department without assistance. Patient discharged with cephalexin 500 mg p.o. twice daily x 7 days, Zofran tablets. Patient remained hemodynamically stable throughout the remainder of her stay heart rate improved, this text was generated using Nuance dictation system, please disregard any oddities of phrase or misspellings. Medical Records Medical records reviewed: Yes I reviewed the patient's medical records. Lab Data Lab results reviewed: Yes I reviewed the patient's lab results. Labs: 02/19/25 12:16 Urine - Reflex from Ua Urine Culture - Pending Laboratory Tests Range/Units 02/19/25 02/19/25 02/19/25 11:25 12:16 14:00 WBC (4.4-10.8) 10^3/uL 9.80 RBC (3.93-5.22) 10^6/uL 4.58 Hgb (11.2-15.7) g/dL 14.5 Hct (36.0-46.0) % 41.8 MCV (80-95) fL 91 MCH (27.0-33.0) pg 31.7 MCHC (32.0-36.0) % 34.7 RDW (11.7-14.6) % 12.8 Plt Count (130-400) 10^3/uL 399 MPV (8.0-11.0) fL 11.5 H Immature Gran % % 0.6 Neutrophils % % 52.4 Lymphocytes % % 30.3 Monocytes % % 6.9 Eosinophils % % 8.6 Basophils % % 1.2 Nucleated RBC % (0.0-0.3) % 0.0 Absolute Neutrophils (1.2-6.7) 10^3/uL 5.13 Absolute Lymphocytes (1.2-3.4) 10^3/uL 2.97 Absolute Monocytes (0.1-0.8) 10^3/uL 0.68 Absolute Eosinophils (0.0-0.7) 10^3/uL 0.84 H Absolute Basophils (0.0-0.2) 10^3/uL 0.12 Sodium (136-145) mmol/L 138 136 Potassium (3.5-5.1) mmol/L 2.7 L* 3.2 L Chloride (98-107) mmol/L 101 103 Carbon Dioxide (21.0-32.0) mmol/L 23.2 22.3 Anion Gap (3-11) mmol/L 13.8 H 10.7 BUN (7-18) mg/dL 4 L 5 L Creatinine (0.55-1.02) mg/dL 0.8 0.6 Est GFR (CKD-EPI 2020) (mL/min/1.73m2) 88.60 107.93 Glucose (74-106) mg/dL 100 93 Calcium (8.5-10.1) mg/dL 9.8 8.9 Magnesium (1.8-2.4) mg/dL 1.9 Total Bilirubin (0.2-1.0) mg/dL 0.5 AST (15-37) U/L 19 ALT (14-59) U/L 25 Alkaline Phosphatase (46-116) U/L 111 Total Protein (6.4-8.2) g/dL 8.7 H Albumin (3.4-5.0) g/dL 3.8 Urine Color (Yellow) Dorita Urine Clarity (Clear) Clear Urine pH (5-8) 7.0 Ur Specific [place] (1.005-1.025) 1.015 Urine Protein (Neg-Trace) mg/dL 30 H Urine Ketones (Negative) mg/dL Trace H Urine Blood (Negative) Negative Urine Nitrite (Negative) Negative Urine Bilirubin (Negative) Negative Urine Urobilinogen (Up to 0.2) mg/dL 0.2 Ur Leukocyte Esterase (Negative) Small H Urine RBC (0-2) HPF Negative Urine WBC (0-5) HPF 10-20 H Ur Epithelial Cells (Negative) HPF Moderate Urine Crystals (Negative) HPF Negative Urine Bacteria (Negative) HPF Moderate Urine Casts (Negative) LPF 3-5 Hyaline Urine Mucus (Negative) Negative Ur Culture Indicated? Yes Urine Glucose (Negative) mg/dL Negative Urine Opiates Screen (Negative) Negative Urine Methadone Screen (Negative) Negative Ur Barbiturates Screen (Negative) Negative Ur Tricyclics Screen (Negative) Negative Ur Amphetamines Screen (Negative) Negative U Benzodiazepines Scrn (Negative) Negative Urine Cocaine Screen (Negative) Negative Ur THC Screen (Negative) Positive A Critical Care Time Critical Care Time Critical Care Time: Yes Total Critical Care Time: 45 Attestation: I spent greater than 35 minutes addressing this patient's acute life threatening illness. This time was spent engaged in actions directly related to the patient's care. Failure to initiate these interventions would have likely resulted in clinically significant or life threatening deterioration in the patients condition. PFSH All Active Problems (Updated 02/19/25 @ 14:40 by Meera Damian NP) Nausea vomiting and diarrhea (Acute) UTI (urinary tract infection) (Acute) Acute hypokalemia (Acute) Well woman exam with routine gynecological exam (Acute) Screening for cervical cancer (Acute) Family history of colon cancer (Acute) Post-menopausal bleeding (Acute) Anxiety (Chronic) Folate deficiency (Acute) B12 deficiency (Acute) Depression (Chronic) Migraine headache (Chronic) Hyponatremia (Acute) Distal radius fracture, left (Acute 10/15/22) Right ankle sprain (Acute) Medical History Alcohol abuse GERD (gastroesophageal reflux disease) HTN (hypertension) Social History Smoking/Tobacco Use Status: Former Tobacco Use Smoking risk assessment performed?: Yes Alcohol Intake: current Alcohol Intake frequency: a few times a week Alcohol type: hard liquor Drug use: Occasionally Substance use type: marijuana Housing: house Do you feel safe at home: Yes Do you feel safe in your relationship?: Yes
[2025-02-19] MEDS: Ondansetron 4 MG/2 ML VIAL IVP (12:35)
[2025-02-19] MEDS: Potassium Chloride 20 MEQ TABCR 40 MEQ PO (12:37)
[2025-02-19] MEDS: Normal Saline 1,000 ML 150 ML IV (12:39)
[2025-02-19] MEDS: POTASSIUM CHLORIDE 10 MEQ/100 ML BAG 100 MEQ IV_INF (12:40)
[2025-02-19 12:44] LABS: Glucose Negative (Negative)
[2025-02-19 13:00] LABS: Cannabinoids THC Positive (Negative); METHADONE URINE SCREEN Negative (Negative)
[2025-02-19 13:05] LABS: C & S Indicated? Yes; RBC Negative HPF (0-2)
[2025-02-19] MEDS: cefTRIAXone 1 GM/50 ML BAG IVPB (14:15)
[2025-02-19 14:28] LABS: Anion Gap 10.7 mmol/L (3-11); BUN 5 mg/dL (7-18); CO2 22.3 mmol/L (21.0-32.0); Calcium 8.9 mg/dL (8.5-10.1); Chloride 103 mmol/L (98-107); Estimated GFR 107.93 (mL/min/1.73m2); Glucose 93 mg/dL (74-106); Potassium 3.2 mmol/L (3.5-5.1); Sodium 136 mmol/L (136-145)
[2025-02-19] MEDS: Ondansetron O.D.T. 4 MG TABEF, 3 TABS/BTL PO (14:32)
== END 2025-02-19 15:07 | disposition home or self-care (01) ==
PROVIDERS: Emergency Provider Registered Nurse Emergency; PCP Student in an Organized Health Care Education/Training Program
DX: E87.6 Hypokalemia (principal); N39.0 Urinary tract infection, site not specified; R11.2 Nausea with vomiting, unspecified; R19.7 Diarrhea, unspecified; R00.0 Tachycardia, unspecified; I10 Essential (primary) hypertension; Z87.891 Personal history of nicotine dependence
CPT/HCPCS: 80048; 80053; 80307; 93005; 96361; 96365; 96367; 96375; 99284; 81003; 81015; 83735; 85025; 87086; 93010; J0696; J2405; J3480

== ENCOUNTER 2025-02-21 19:07 | Outpatient (REF) | payer OTHER, SELFPAY ==
[2025-02-21 18:11] LABS: EPI 027-NAP1-B1 PRESUMPTIVE NEGATIVE
[2025-02-22 20:29] LABS: Campylobacter PCR Negative (Negative); Shiga Toxin PCR Negative (Negative); Shigella/Enteroinvasive Ecoli Negative (Negative)
== END 2025-02-21 19:08 | disposition home or self-care (01) ==
LOC: NCHCN 19:07
PROVIDERS: PCP Student in an Organized Health Care Education/Training Program; Visit Provider Student in an Organized Health Care Education/Training Program
DX: R19.7 Diarrhea, unspecified (principal)
CPT/HCPCS: 87015; 87269; 87272; 87505; 82272

== ENCOUNTER 2025-03-02 11:47 | Emergency (ER) | payer OTHER, SELFPAY ==
[2025-03-02] VITALS (15 sets, daily range): BP systolic 144–154; BP diastolic 98–114; PULSE 84–103; RESP 14–23; TEMP 37.2; O2SAT 98–100
--- NOTE | 2025-03-02 11:45 | RT.EKG_ITS ---
APPROVED REPORT Exam: Resting ECG Reason for Exam: abdominal pain Patient Location: E HR:99 bpm ECG Measurements Heart Rate 99 AXIS WI 167 P 32 QRSd 86 QRS 53 QT 354 T 20 QTc 454 Conclusion Sinus rhythm...normal P axis, V-rate 60- 99
[2025-03-02 12:48] LABS: Abs Immature Grans 0.07 10^3/uL (0.0-0.06); HCT 40.5 % (36.0-46.0); HGB 14.1 g/dL (11.2-15.7); Immature Grans % 0.5 %; MCH 31.9 pg (27.0-33.0); MCHC 34.8 % (32.0-36.0); MCV 92 fL (80-95); MPV 12.2 fL (8.0-11.0); Platelet Count 359 10^3/uL (130-400); RBC 4.42 10^6/uL (3.93-5.22); RDW 13.3 % (11.7-14.6); RDW-SD 45.4 fL; WBC 13.12 10^3/uL (4.4-10.8)
[2025-03-02 12:57] LABS: Lipase 38 U/L (<78)
[2025-03-02 13:07] LABS: ALT 69 U/L (14-59); AST 232 U/L (15-37); Albumin 3.8 g/dL (3.4-5.0); Alkaline Phosphatase 131 U/L (46-116); Anion Gap 14.5 mmol/L (3-11); BUN 8 mg/dL (7-18); Bilirubin, Total 0.5 mg/dL (0.2-1.0); CO2 24.5 mmol/L (21.0-32.0); Calcium 9.4 mg/dL (8.5-10.1); Chloride 103 mmol/L (98-107); Estimated GFR 88.60 (mL/min/1.73m2); Glucose 82 mg/dL (74-106); Magnesium 1.7 mg/dL (1.8-2.4); Sodium 142 mmol/L (136-145); Total Protein 7.8 g/dL (6.4-8.2)
[2025-03-02 13:26] LABS: Potassium 2.7 mmol/L (3.5-5.1); Troponin I < 4 ng/L (<or=51)
--- NOTE | 2025-03-02 13:34 | W.ED.GENAD ---
Discharge Plan Discharge Details Chief Complaint: Abd Prob Primary Care Provider: Christopher Knott ED Provider: Slim Lopez Home Meds and New Rx's Prescriptions: No Action clonazepam 0.5 mg tablet 0.5 mg PO TID PRN duloxetine 60 mg capsule,delayed release(DR/EC) 60 mg PO DAILY Aimovig Autoinjector 140 mg/mL auto-injector 140 mg SUBCUT .MONTHLY divalproex 500 mg tablet,delayed release (DR/EC) 500 mg PO BID Patient Comments: TAKE 1 TABLET BY MOUTH TWICE DAILY multivitamin [Multiple Vitamins] Tablet 1 tab PO DAILY Qty: 30 0RF cyanocobalamin (vitamin B-12) 1,000 mcg tablet 1,000 mcg PO DAILY Qty: 30 0RF trazodone 50 mg tablet 50 mg PO QHS Patient Comments: TAKE 1 TABLET BY MOUTH EVERY NIGHT albuterol sulfate 90 mcg/actuation HFA aerosol inhaler 2 puff INHALATION Q4H PRN Patient Comments: INHALE 2 PUFFS BY MOUTH EVERY 4 TO 6 HOURS NEEDED FOR WHEEZING topiramate 200 mg tablet 200 mg PO BID Patient Comments: TAKE 1 TABLET BY MOUTH TWICE DAILY trazodone 100 mg tablet 100 mg PO BID Patient Comments: TAKE 1 TABLET BY MOUTH TWICE DAILY sennosides-docusate sodium [Stimulant Laxative Plus] 8.6-50 mg tablet 1 tab-cap PO BID Patient Comments: TAKE 1 TABLET BY MOUTH TWICE DAILY meclizine 25 mg tablet 25 mg PO TID PRN HPI General Date/Time Provider Initiated Documentation: 03/02/25 11:55. Limitations to Documentation: no limitations. Information obtained by: patient. HPI Narrative: HISTORY OF PRESENT ILLNESS 54-year-old female with bipolar disorder, anxiety disorder, alcohol dependence, seizure disorder, hypertension, GERD, irritable bowel syndrome, and alcoholic hepatitis presenting with abdominal pain. Patient experienced severe upper abdominal pain starting this morning, worsening to the point of being unable to walk upright. Pain began in bilateral upper back, now localized to upper abdomen, described as aching, burning, and sharp. Associated nausea, no vomiting, fever, or chills. Recently treated for UTI. Called doctor due to severity, transported by ambulance. Patient has felt unwell for three weeks with nausea, diarrhea, fatigue, and joint pain. Intermittent ulcer pain different from current pain. History of gastric ulcers since 20s, previously scarred over. No bloody stools, only diarrhea or no bowel movements for three weeks. Experiencing dehydration, poor intake due to nausea. Scheduled doctor's appointment next week. History of GERD, current symptoms different. PAST SURGICAL HISTORY: History of abdominal surgery for tubal ligation and oophorectomy, possible cholecystectomy. Related Data Home Medications ?Medication ?Instructions ?Recorded ?Confirmed clonazepam 0.5 mg tablet 0.5 mg PO TID PRN 09/22/21 03/02/25 duloxetine 60 mg capsule,delayed 60 mg PO DAILY 09/22/21 03/02/25 release erenumab-aooe 140 mg/mL 140 mg subcut .MONTHLY 10/15/22 03/02/25 subcutaneous auto-injector (Aimovig Autoinjector) divalproex 500 mg tablet,delayed 500 mg PO BID 08/06/23 03/02/25 release cyanocobalamin (vitamin B-12) 1,000 mcg PO DAILY #30 tabs 08/08/23 03/02/25 1,000 mcg tablet multivitamin (Multiple Vitamins 1 tab PO DAILY #30 tabs 08/08/23 03/02/25 tablet) trazodone 50 mg tablet 50 mg PO QHS 01/07/25 03/02/25 albuterol sulfate 90 mcg/actuation 2 puff inhalation Q4H PRN 03/02/25 03/02/25 aerosol inhaler meclizine 25 mg tablet 25 mg PO TID PRN 03/02/25 03/02/25 sennosides 8.6 mg-docusate sodium 1 tab-cap PO BID 03/02/25 03/02/25 50 mg tablet (Stimulant Laxative Plus) topiramate 200 mg tablet 200 mg PO BID 03/02/25 03/02/25 trazodone 100 mg tablet 100 mg PO BID 03/02/25 03/02/25 Previous Rx's ?Medication ?Instructions ?Recorded cyanocobalamin (vitamin B-12) 1,000 mcg PO DAILY #30 tabs 08/08/23 1,000 mcg tablet multivitamin (Multiple Vitamins 1 tab PO DAILY #30 tabs 08/08/23 tablet) Allergies Allergy/AdvReac Type Severity Reaction Status Date / Time No Known Allergies Allergy Verified 03/02/25 11:58 General Stated Complaint: Abd Prob MAIA: 3 Review of Systems All systems reviewed & are unremarkable except as noted in HPI and below Constitutional Constitutional: Denies fever(s) Gastrointestinal Gastrointestinal: Reports as per HPI Exam Const General: cooperative and no acute distress HENMT Mouth: mucous membranes dry Eyes Conjunctivae: normal conjunctivae Sclera: normal sclerae Neck Neck: trachea midline and supple Resp Auscultation: clear to auscultation bilaterally, no rales, no rhonchi and no wheezes Cardio Rate: regular rate and not tachycardic Rhythm: regular rhythm GI Inspection: non-distended Palpation: soft, not firm, no guarding, no masses, not rigid and tender in the epigastrum; with no rebound tenderness Skin General skin exam: no rashes or lesions noted Neuro General: patient alert, patient awake and tone normal Extrem General: no edema Psych Appearance: grossly normal Mental Status: mental status grossly normal Course Vital Signs Vital signs: Vital Signs Temperature 37.2 C 03/02/25 11:53 Pulse 103 H 03/02/25 11:53 Respiratory Rate 16 03/02/25 11:53 Blood Pressure 144/98 H 03/02/25 11:53 Pulse Oximetry [facility] 03/02/25 11:53 Temperature 37.2 C 03/02/25 11:53 Temperature Source Tympanic 03/02/25 11:53 Pulse 103 H 03/02/25 11:53 Respiratory Rate 16 03/02/25 11:53 Blood Pressure 144/98 H 03/02/25 11:53 Blood Pressure Position Sitting 03/02/25 11:53 Pulse Oximetry [facility] 03/02/25 11:53 Oxygen Delivery Method Room Air 03/02/25 11:53 Oxygen Flow Rate 0 03/02/25 11:53 Lab/Test Results Lab/Test Results: Laboratory Tests Range/Units 03/02/25 12:15 WBC (4.4-10.8) 10^3/uL 13.12 H RBC (3.93-5.22) 10^6/uL 4.42 Hgb (11.2-15.7) g/dL 14.1 Hct (36.0-46.0) % 40.5 MCV (80-95) fL 92 MCH (27.0-33.0) pg 31.9 MCHC (32.0-36.0) % 34.8 RDW (11.7-14.6) % 13.3 Plt Count (130-400) 10^3/uL 359 MPV (8.0-11.0) fL 12.2 H Immature Gran % % 0.5 Neutrophils % % 69.4 Lymphocytes % % 18.9 Monocytes % % 4.8 Eosinophils % % 5.6 Basophils % % 0.8 Nucleated RBC % (0.0-0.3) % 0.0 Absolute Neutrophils (1.2-6.7) 10^3/uL 9.11 H Absolute Lymphocytes (1.2-3.4) 10^3/uL 2.48 Absolute Monocytes (0.1-0.8) 10^3/uL 0.63 Absolute Eosinophils (0.0-0.7) 10^3/uL 0.73 H Absolute Basophils (0.0-0.2) 10^3/uL 0.10 VBG Lactate (<or=2.0) mmol/L 3.2 H* Sodium (136-145) mmol/L 142 Potassium (3.5-5.1) mmol/L 2.7 L* Chloride (98-107) mmol/L 103 Carbon Dioxide (21.0-32.0) mmol/L 24.5 Anion Gap (3-11) mmol/L 14.5 H BUN (7-18) mg/dL 8 Creatinine (0.55-1.02) mg/dL 0.8 Est GFR (CKD-EPI 2020) (mL/min/1.73m2) 88.60 Glucose (74-106) mg/dL 82 Calcium (8.5-10.1) mg/dL 9.4 Magnesium (1.8-2.4) mg/dL 1.7 L Total Bilirubin (0.2-1.0) mg/dL 0.5 AST (15-37) U/L 232 H ALT (14-59) U/L 69 H Alkaline Phosphatase (46-116) U/L 131 H Troponin I (<or=51) ng/L < 4 Total Protein (6.4-8.2) g/dL 7.8 Albumin (3.4-5.0) g/dL 3.8 Lipase (<78) U/L 38 Medical Decision Making ASSESSMENT AND PLAN Initial Assessment: 54-year-old female with severe upper abdominal pain, nausea, diarrhea, fatigue, and joint pain for 3 weeks. History of gastric ulcers, bipolar disorder, anxiety disorder, alcohol dependence, seizure disorder, hypertension, GERD, irritable bowel syndrome, and alcoholic hepatitis. Physical exam reveals tenderness in middle abdomen. Differential Diagnosis: - AAA and rupture: Obtain CTA. - Consider mesenteric ischemia - Gastric ulcers: Monitor symptoms, consider further evaluation. ED Course: - Tachycardia (103 bpm) - BP 144/98 - Labs reviewed: leukocytosis (WBC 13,000), elevated lactate (3.2), hypokalemia (potassium 2.7), low magnesium (1.7), elevated AST (232), and ALT (69) - IV fluids for dehydration - IV ondansetron for nausea - CTA of the abdomen pelvis to assess for acute surgical pathology was interpreted by radiology: 1. Unremarkable abdominal aorta and aortoiliac segments. No significant atherosclerotic disease. No aneurysm. No dissection. Main arteries off the aorta are also nicely patent. 2. Gallbladder surgically absent. 3. No evidence of acute pancreatitis. 4. Radiopaque material seen throughout the bowel is most probably due to ingested medication by the patient 5. Urinary bladder wall is thickened but the bladder is collapsed and this may be related to the under distension. - Plan to recheck chemistry after IV fluids and electrolyte correction. Final Assessment: Severe upper abdominal pain with nausea, diarrhea, fatigue, and joint pain. Labs: leukocytosis, elevated lactate, hypokalemia, low magnesium, elevated liver enzymes. Plan CTA for AAA and rupture. Administered IV fluids and ondansetron. Clinical Impression: - Abdominal pain - Leukocytosis - Elevated lactate - Hypokalemia - Low magnesium - Elevated liver enzymes This document was written with the assistance of CURTIS Banda. The patient consented to its use. PFSH All Active Problems Nausea vomiting and diarrhea (Acute) UTI (urinary tract infection) (Acute) Acute hypokalemia (Acute) Well woman exam with routine gynecological exam (Acute) Screening for cervical cancer (Acute) Family history of colon cancer (Acute) Post-menopausal bleeding (Acute) Anxiety (Chronic) Folate deficiency (Acute) B12 deficiency (Acute) Depression (Chronic) Migraine headache (Chronic) Hyponatremia (Acute) Distal radius fracture, left (Acute 10/15/22) Right ankle sprain (Acute) Medical History Alcohol abuse GERD (gastroesophageal reflux disease) HTN (hypertension) Social History Smoking/Tobacco Use Status: Former Tobacco Use Smoking risk assessment performed?: Yes Alcohol Intake: current Alcohol Intake frequency: a few times a week Alcohol type: hard liquor Drug use: Occasionally Substance use type: marijuana Housing: house Do you feel safe at home: Yes Do you feel safe in your relationship?: Yes
[2025-03-02] MEDS: Ondansetron 4 MG/2 ML VIAL IVP (13:43)
[2025-03-02] MEDS: POTASSIUM CHLORIDE 20 MEQ/100 ML BAG 50 MEQ IV_INF ×2 (13:51→15:50)
[2025-03-02] MEDS: Normal Saline 1,000 ML 1000 ML IV (13:51)
[2025-03-02] MEDS: MAGNESIUM SULFATE 1 GM/100 ML BAG IV_INF (13:52)
[2025-03-02] MEDS: Potassium Chloride 20 MEQ TABCR PO (13:59)
--- NOTE | 2025-03-02 14:00 | DI.CT_ITS ---
Exam(s) CT ABDOMEN PELVIS CTA EXAM: CT ABDOMEN PELVIS CTA CLINICAL HISTORY: upper mid abd pain, severe. TECHNIQUE: Imaging Protocol: Axial computed tomography images with coronal and sagittal reformatted images were created and reviewed CONTRAST MATERIAL: Intravenous: Omnipaque 350 Contrast volume:75 mL Oral: None COMPARISON: CT CT THORAX ABD/PEL CTA from 08/30/2024 FINDINGS: ABDOMEN: AORTA: There is no significant atherosclerotic involvement of the abdominal aorta and aortoiliac segments. There is no evidence of abdominal aortic aneurysm nor dissection.There is no aneurysmal dilatation of the common iliac arteries.The celiac and superior mesenteric arteries are patent.Inferior mes enteric artery is patent. Renal arteries are patent. These arteries exhibit no significant stenoses. There is no ascites. LIVER: There are no focal hepatic lesions. There appears to be mild dilatation of intrahepatic ducts. GALLBLADDER/BILIARY: Gallbladder surgically absent. The diameter is upper normal. PANCREAS: No evidence of pancreatic mass nor dilatation of the pancreatic duct. SPLEEN: Spleen is not enlarged. There are no intrasplenic lesions. ADRENALS: There are no significant adrenal masses. KIDNEYS: There is a benign cyst in the posterior cortex of the left kidney which measures 1 cm and does not require further workup. No cysts seen in the right kidney and no solid lesions in either kidney. No calculi. No hydronephrosis nor hydroureter.. LYMPH NODES: There is no retroperitoneal nor para-aortic adenopathy. No obvious mesenteric masses. ABDOMINAL WALL: No evidence of significant anterior abdominal wall hernia. GI: There is radiopaque material seen in multiple bowel loops which is most probably from ingested medication. There is no evidence of bowel obstruction, free air, nor abscess. PELVIS: LYMPH NODES: There is no intrapelvic nor inguinal adenopathy. GI: Appendix not seen and may be surgically absent.No evidence of sigmoid diverticulitis. URINARY BLADDER: Collapsed. Bladder wall appears thickened but this may be due to under distension (but cannot rule out cystitis). REPRODUCTIVE: Age-appropriate. No abnormal adnexal masses. No free fluid. OSSEOUS: No fractures. Multilevel chronic disc space narrowing in the mid lower lumbar spine. No listhesis. No significant osseous lesions. IMPRESSION: 1. Unremarkable abdominal aorta and aortoiliac segments. No significant atherosclerotic disease. No aneurysm. No dissection. Main arteries off the aorta are also nicely patent. 2. Gallbladder surgically absent. 3. No evidence of acute pancreatitis. 4. Radiopaque material seen throughout the bowel is most probably due to ingested medication by the patient 5. Urinary bladder wall is thickened but the bladder is collapsed and this may be related to the under distension. Report called by myself to ER physician 03/02/2025 at 2:48 p.m. RADIATION DOSE DELIVERED: 689.87mGy.cm Total DLP DATA REPOSITORY: All CT scans at this facility are submitted to the National Radiology Data Registry (NRDR) Dose Index Registry (DIR) with the [employer] ([employer]). RADIATION OPTIMIZATION: All CT scans at this facility use at least one of these dose optimization techniques: automated exposure control; mA and/or kV adjustment per patient size (includes targeted exams where dose is matched to clinical indication); or iterative reconstruction.
[2025-03-02] MEDS: Omnipaque 350 MG/ML 100 ML BTL IJ (14:03)
[2025-03-02] MEDS: Normal Saline - Diluent 50 ML VIAL IJ (14:03)
[2025-03-02] MEDS: Famotidine 20 MG/2 ML VIAL IVP (14:24)
--- NOTE | 2025-03-02 16:33 | W.EDPROG ---
Date of service: 03/02/25 Time of Service: 17:33 Medical Decision Making Care assumed from off going provider. Patient is a 54-year-old female that presented with severe epigastric abdominal pain, nausea but no vomiting. Lab work was initially concerning for elevated lactic acid as well as hypokalemia. Patient received fluid resuscitation and IV potassium replacement. Prior to the completion of her second dose of IV potassium, the patient ripped out her IV. Repeat blood work indicates a normalized lactic acid. Calcium is 3.1. Patient encouraged to foods high in potassium at home. Discharge medications written per Dr. Lopez. On reexamination, she was feeling better and tolerating p.o. Return guidance discussed with the patient. Discharge Plan Disposition Patient Disposition: Home Condition: Improving Discharge Details Clinical Impression: Abdominal pain, Nausea, Acute hypokalemia, Elevated LFTs Primary Care Provider: Christopher Knott ED Provider: Sayda Christie Home Meds and New Rx's Prescriptions: New ondansetron 4 mg tablet,disintegrating 4 mg PO Q8H PRNQty: 10 0RF famotidine [Pepcid] 20 mg tablet 20 mg PO BID Qty: 28 0RF tramadol 50 mg tablet 50 mg PO BID PRN (Reason: pain) Qty: 10 0RF Continued clonazepam 0.5 mg tablet 0.5 mg PO TID PRN duloxetine 60 mg capsule,delayed release(DR/EC) 60 mg PO DAILY Aimovig Autoinjector 140 mg/mL auto-injector 140 mg SUBCUT .MONTHLY divalproex 500 mg tablet,delayed release (DR/EC) 500 mg PO BID Patient Comments: TAKE 1 TABLET BY MOUTH TWICE DAILY multivitamin [Multiple Vitamins] Tablet 1 tab PO DAILY Qty: 30 0RF cyanocobalamin (vitamin B-12) 1,000 mcg tablet 1,000 mcg PO DAILY Qty: 30 0RF trazodone 50 mg tablet 50 mg PO QHS Patient Comments: TAKE 1 TABLET BY MOUTH EVERY NIGHT albuterol sulfate 90 mcg/actuation HFA aerosol inhaler 2 puff INHALATION Q4H PRN Patient Comments: INHALE 2 PUFFS BY MOUTH EVERY 4 TO 6 HOURS NEEDED FOR WHEEZING topiramate 200 mg tablet 200 mg PO BID Patient Comments: TAKE 1 TABLET BY MOUTH TWICE DAILY trazodone 100 mg tablet 100 mg PO BID Patient Comments: TAKE 1 TABLET BY MOUTH TWICE DAILY sennosides-docusate sodium [Stimulant Laxative Plus] 8.6-50 mg tablet 1 tab-cap PO BID Patient Comments: TAKE 1 TABLET BY MOUTH TWICE DAILY meclizine 25 mg tablet 25 mg PO TID PRN Discharge Instructions Instructions: Hypokalemia, Abdominal Pain, Adult ED Additional Instructions: Please allow for bowel rest. Maintain a clear liquid diet today and tomorrow morning. Advance your diet to soft bland foods like rice tomorrow afternoon. Advance diet slowly daily thereafter. Please follow-up with your primary care physician. Show discussed all results performed today. There is testing pending at time of discharge including acute hepatitis panel. Please be sure to discuss this with your doctor next week. Return to the emergency department immediately for any worsening or new concerning symptoms. Referrals: Christopher Knott [Primary Care Provider, Medicine]
[2025-03-02 17:20] LABS: Anion Gap 12.4 mmol/L (3-11); BUN 8 mg/dL (7-18); CO2 23.6 mmol/L (21.0-32.0); Calcium 8.9 mg/dL (8.5-10.1); Chloride 106 mmol/L (98-107); Estimated GFR 88.60 (mL/min/1.73m2); Glucose 87 mg/dL (74-106); Potassium 3.1 mmol/L (3.5-5.1); Sodium 142 mmol/L (136-145)
[2025-03-05 11:16] LABS: Hepatitis A Antibody IgM Negative (Negative); Hepatitis C Ab w Rflx HCV PCR Negative (Negative)
== END 2025-03-02 17:42 | disposition home or self-care (01) ==
PROVIDERS: Student in an Organized Health Care Education/Training Program; Emergency Provider Emergency Medicine; PCP Student in an Organized Health Care Education/Training Program
DX: R10.10 Upper abdominal pain, unspecified (principal); R11.0 Nausea; I10 Essential (primary) hypertension; G40.909 Epilepsy, unspecified, not intractable, without status epilepticus; K70.10 Alcoholic hepatitis without ascites; Z90.49 Acquired absence of other specified parts of digestive tract; Z87.891 Personal history of nicotine dependence
CPT/HCPCS: 00123; 36415; 80048; 80053; 83690; 86704; 86709; 86803; 87340; 93005; 96365; 96366; 96367; 96375; 99285; 74174; 83605; 83735; 84484; 85025; 93010; J2405; J3475; J3480; J3490

== ENCOUNTER 2025-03-12 08:08 | Observation (INO) | payer OTHER, MEDICARE, SELFPAY ==
[2025-03-12] VITALS (28 sets, daily range): BP systolic 106–144; BP diastolic 69–87; PULSE 79–111; RESP 12–26; TEMP 36–37.1; O2SAT 92–100
--- NOTE | 2025-03-12 08:23 | W.ED.GENAD ---
Discharge Plan Disposition Patient Disposition: Admit to [facility] Condition: Stable Discharge Details Clinical Impression: Encephalopathy, Sepsis Admit Date/Time: 03/12/25 11:02 Admit Provider: Travis Torres Attending Provider: Travis Torres Primary Care Provider: Christopher Knott ED Provider: Mehul Montiel Discharge Data Discharge Date/Time-TO BE ENTERED AT DEPARTURE: 03/12/25 12:19 HPI General Date/Time Provider Initiated Documentation: 03/12/25 08:20. HPI Narrative: 54 year-old female presents to ED today by POV with family with a chief complaint of confusion- altered mentation with onset around midday yesterday. Quality described as abdominal pain and confusion, no radiation to nausea/vomiting, fever, chest pain, patient is fairly unreliable beyond the basic description of abdominal pain. Severity is described as severe per family for confusion. Palliating factors include nothing specific attempted. Provoking factors include patient had takena 50mg THC edible yesterday. Events leading up to the incident/Associated Symptoms: Patient was seen on 03/02 for abdominal pain with elevated lactate at that time, treated for UTI previous to that. Patient not anticoagulated. Related Data Home Medications ?Medication ?Instructions ?Recorded ?Confirmed clonazepam 0.5 mg tablet 0.5 mg PO TID PRN 09/22/21 03/12/25 duloxetine 60 mg capsule,delayed 60 mg PO DAILY 09/22/21 03/12/25 release erenumab-aooe 140 mg/mL 140 mg subcut .MONTHLY 10/15/22 03/12/25 subcutaneous auto-injector (Aimovig Autoinjector) divalproex 500 mg tablet,delayed 500 mg PO BID 08/06/23 03/12/25 release multivitamin (Multiple Vitamins 1 tab PO DAILY #30 tabs 08/08/23 03/12/25 tablet) albuterol sulfate 90 mcg/actuation 2 puff inhalation Q4H PRN 03/02/25 03/12/25 aerosol inhaler famotidine 20 mg tablet (Pepcid) 20 mg PO BID #28 tabs 03/02/25 03/12/25 meclizine 25 mg tablet 25 mg PO TID PRN 03/02/25 03/12/25 ondansetron 4 mg disintegrating 4 mg PO Q8H PRN #10 tabs 03/02/25 03/12/25 tablet sennosides 8.6 mg-docusate sodium 1 tab-cap PO BID 03/02/25 03/12/25 50 mg tablet (Stimulant Laxative Plus) topiramate 200 mg tablet 200 mg PO BID 03/02/25 03/12/25 tramadol 50 mg tablet 50 mg PO BID PRN pain #10 tabs 03/02/25 03/12/25 trazodone 100 mg tablet 100 mg PO BID 03/02/25 03/12/25 olanzapine 5 mg tablet 5 mg PO HS 03/12/25 03/12/25 potassium chloride 10 mEq 10 meq PO DAILY 03/12/25 03/12/25 capsule,extended release pregabalin 75 mg capsule 75 mg PO BID 03/12/25 03/12/25 Previous Rx's ?Medication ?Instructions ?Recorded multivitamin (Multiple Vitamins 1 tab PO DAILY #30 tabs 08/08/23 tablet) famotidine 20 mg tablet (Pepcid) 20 mg PO BID #28 tabs 03/02/25 ondansetron 4 mg disintegrating 4 mg PO Q8H PRN #10 tabs 03/02/25 tablet tramadol 50 mg tablet 50 mg PO BID PRN pain #10 tabs 03/02/25 Allergies Allergy/AdvReac Type Severity Reaction Status Date / Time No Known Allergies Allergy Verified 03/12/25 08:18 General Stated Complaint: Abd Prob MAIA: 3 Review of Systems All systems reviewed & are unremarkable except as noted in HPI and below Exam Narrative Exam Narrative: GENERAL APPEARANCE: Well-nourished, toxic, awake and confused, atraumatic, moderate acute distress. SKIN: Warm, pale, dry, intact, without rashes/lesions/ulcerations. HEAD: Normocephalic, atraumatic, normal hair distribution for gender/age. EYES: Normal conjunctiva, no exudates on lids/lashes. ENT: Nares patent, no circumoral cyanosis, no facial swelling NECK: Supple, trachea midline, painless cervical ROM. LUNGS/CHEST: Lungs CTA bilaterally- no rhonchi/rales/wheezes diffusely, non-labored respirations, normal A/P diameter, symmetrical expansion, no chest wall deformity HEART (CV/PV): Regular rate and rhythm without murmur, no peripheral edema, no JVD. ABDOMEN: Soft, non-distended, no guarding, diffuse tenderness without rebound tenderness. MSK: Normal ROM, no swelling/deformity to bilateral UEs or LEs, moving all extremities without weakness, no cyanosis, spine midline without tenderness, normal curvature. NEURO: Mental Status - alert to person, inappropriate responses to other questions, tangential No facial droop, no forehead involvement. Motor: No focal weakness - strength 5/5 in bilateral UEs and LEs, proximal and distal, symmetric. Sensory: sensation intact to light touch globally. Gait NT. PSYCH: euthymic, cooperative, pleasant, appropriate speech Course Vital Signs Vital signs: Vital Signs Temperature 37.1 C 03/12/25 08:15 Pulse 111 H 03/12/25 08:15 Respiratory Rate 18 03/12/25 08:15 Blood Pressure 109/69 03/12/25 08:15 Pulse Oximetry 92 03/12/25 08:15 Temperature 37.1 C 03/12/25 08:18 Temperature Source Oral 03/12/25 08:18 Pulse 111 H 03/12/25 08:18 Respiratory Rate 18 03/12/25 08:18 Blood Pressure 109/69 03/12/25 08:18 Pulse Oximetry 92 03/12/25 08:18 Oxygen Delivery Method Room Air 03/12/25 08:18 Oxygen Flow Rate 0 03/12/25 08:18 Medical Decision Making This dictation utilizes [id number] dictation software and may contain unedited grammatical errors. 54 year-old female presents to ED today by POV with family with a chief complaint of confusion- altered mentation with onset around midday yesterday. Quality described as abdominal pain and confusion, no radiation to nausea/vomiting, fever, chest pain, patient is fairly unreliable beyond the basic description of abdominal pain. Severity is described as severe per family for confusion. Palliating factors include nothing specific attempted. Provoking factors include patient had takena 50mg THC edible yesterday. Events leading up to the incident/Associated Symptoms: Patient was seen on 03/02 for abdominal pain with elevated lactate at that time, treated for UTI previous to that. Patients' medical history: Alcohol use disorder, GERD, hypertension. Family and social history: Family states she took a THC gummy, was recently started on tramadol. Pertinent exam findings / vital signs include encephalopathic and altered, states she is in [facility], word salad and trying to give description, pronounces no ifs, ands or buts correctly, benign cardiopulmonary exam, diffuse abdominal tenderness without rebound tenderness, some distention suprapubically. Differential / pathologies of concern include UTI, Sepsis, CVA, Encephalopathy, Intoxication, Bacteremia, PNA, Electrolyte Abnormality. Diagnostic studies of: - CTA brain and neck, CT ABD/pelvis with contrast, CBC, CMP, VBG, lactate, magnesium, lipase, TSH, troponin, blood cultures, *ETOH level added at time of admission - CT brain did not show no stroke, no acute abnormalities - CT ABD shows persistent radiopaque bodies throughout her large bowel, possibly undigested pills, shows bladder distention, mild infiltrate in lung bases - CBC shows no leukocytosis, shows 0.6% immature granulocytes, shows a persistent eosinophilia as well as a mild elevation of absolute neutrophil count - Lactate is 4.1, has been elevated in the past perhaps due to liver dysfunction she may not be clearing her lactic acid - CMP is unremarkable, she does have elevated LFTs but they are improving from her prior visit on 03/02 - Troponin negative - Lipase within normal limits - TSH within normal limits - Blood cultures pending at time of admission - UA pending at time of admission - Alcohol level added at time of admission Interventions of: -1L IVF NS, 2g IV Cefepime, 500mg IV metronidazole for abdominal sources, consider PNA with patients 1L O2 by NC- cefepime to cover this. 1g IV APAP. ED Course/Assessment/Plan: 54-year-old female presents with her family she is not been acting herself since yesterday around lunchtime, she did eat 50 mg THC gummy but is having inappropriate responses to questioning and some abdominal pain, appears quite encephalopathic, CTA of the head rules out any stroke, she would not have been a tPA candidate regardless with her onset, it is unclear what is causing her encephalopathy at this time as she has elevated lactate but not significantly elevated WBCs on CBC, she has a known history of elevated lactate perhaps due to alcohol use disorder not clearing her lactate, she was here in the recent past with elevated LFTs was they appear improved on lab workup today, she is admitted to the hospital for encephalopathy and sepsis by Dr. Bucio at 1430 with blood cultures and UA pending, he did add on some additional studies of alcohol level and UDS. Disposition of Encephalopathy, Sepsis. Patient verbalized understanding of the plan and return to ED criteria and engaged in shared decision making. Medical Records Medical records reviewed: Yes I reviewed the patient's medical records. Imaging Data Radiologic Study: Attestation: I personally reviewed and interpreted this imaging study as follows: Imaging: CT Scan Radiologist's impression: EXAM: CT BRAIN NECK CTA CLINICAL HISTORY: altered mentation onset 1200 yesterday. TECHNIQUE: Imaging Protocol: Axial CT angiography was performed with multi-slice acquisition and multi-planar and/or 3D reconstructions. CONTRAST MATERIAL: Intravenous: Omnipaque 350 Contrast volume:75 mL COMPARISON: CT CT BRAIN NECK CTA from 01/07/2025 FINDINGS: CTA Neck W: Aortic arch anatomy: The aortic arch anatomy is conventional and there is no significant stenosis at the origin of the great vessels off of the aortic arch. No intimal flap evident. Anterior circulation: Both common carotid arteries ascend with normal luminal diameters. At the level the carotid bulbs and proximal internal carotid arteries there is minimal plaque without hemodynamically significant stenosis evident. Posterior circulation: Both vertebral arteries originate in conventional fashion off of the subclavian arteries and there is no obvious stenosis at the origin of the vertebral arteries. Both vertebral arteries exhibit normal luminal diameters within the foramen transversarium. Both vertebral arteries contribute to the formation of the basilar artery at the skull base. CTA Brain W: Anterior circulation: Both internal carotid arteries are patent in the skull base-carotid canals as well as within the cavernous sinuses. The supraclinoid aspects of the ICAs are patent. Both A1 segments are patent as are the anterior cerebral arteries and there is no evidence of aneurysm at the level of the anterior communicating artery. Both middle cerebral arteries are patent with no evidence of significant stenosis nor intraluminal thrombus. There also no aneurysms of these vessels. Posterior circulation: The basilar artery ascends in the midline. Distally it gives off patent bilateral superior cerebellar arteries. Above this level the basilar artery terminates as patent bilateral posterior cerebral arteries. There is no evidence of aneurysm at the tip of the basilar artery nor elsewhere in the [id number]. CT BRAIN: There is no evidence of intracranial hemorrhage, mass effect, or shift of midline structures. There are no extra-axial fluid collections. Ventricles are not enlarged or shifted. There are no ring enhancing lesions in the brain and no abnormal meningeal enhancement. IMPRESSION: 1. Patent carotid arteries in the neck. No hemodynamically significant stenosis. 2. Patent vertebral arteries. 3. Patent intracranial arteries. 4. No acute intracranial findings. No abnormal intracranial enhancement. Radiologic Study #2: Attestation: I personally reviewed and interpreted this imaging study as follows: Imaging: CT Scan Radiologist's impression: EXAM: CT ABDOMEN PELVIS W CLINICAL HISTORY: R sided ABD pain. TECHNIQUE: Imaging Protocol: Axial computed tomography images with coronal and sagittal reformatted images were created and reviewed CONTRAST MATERIAL: Intravenous: Omnipaque-350 100cc Oral: None COMPARISON: CT CT ABDOMEN PELVIS CTA from 03/02/[address] BRAIN NECK CTA from 03/12/2025 FINDINGS: VISUALIZED LUNG BASES: There is atelectasis and mild infiltrate in both lung bases which was not evident on recent CT scan of 10 days ago.. ABDOMEN: There is no ascites. LIVER: There mildly dilated intrahepatic ducts evident in both lobes of the liver which is possibly related to post cholecystectomy status. GALLBLADDER/BILIARY: The gallbladder is again noted be surgically absent. CBD diameter is prominent, measuring 10-11 mm., possibly related to post cholecystectomy status. There is no obvious radiopaque calculus seen in the lower CBD and no obvious mass at this level. PANCREAS: No evidence of pancreatic mass nor dilatation of the pancreatic duct. SPLEEN: Spleen is not enlarged. No obvious intrasplenic lesions. Splenic and portal veins are patent. ADRENALS: There are no significant adrenal masses. KIDNEYS:No significant focal findings in the right kidney. There is a small benign cyst in the posterior cortex of the left kidney again noted measuring 1.4 x 1.2 cm. This benign cyst does not require further imaging workup. No solid renal masses. No calculi nor hydronephrosis.. ABDOMINAL AORTA: Abdominal aorta is not enlarged. Iliac arteries also unremarkable. LYMPH NODES:There is no retroperitoneal nor para-aortic adenopathy. ABDOMINAL WALL: No evidence of significant anterior abdominal wall nor inguinal hernia. GI: Again noted is a radiopaque material scattered throughout the large bowel lumen and layering in the cecum. There also 3 larger radiopaque densities layering in the cecum which may be undigested pills. There is abundant fecal material noted throughout the colon. The diameter of small bowel loops is upper normal. No evidence of small-bowel obstruction or free air nor abscess. PELVIS: GI: Appendix is again not able to be identified and may be surgically absent.No evidence of sigmoid diverticulitis. LYMPH NODES: There is no intrapelvic nor inguinal adenopathy. REPRODUCTIVE: Uterus and adnexal regions appear age-appropriate. There no extraovarian adnexal masses and no free fluid in the pelvis. URINARY BLADDER: The urinary bladder is moderately distended. No calculi nor obvious masses evident OSSEOUS: No fractures and no significant osseous lesions. Multilevel chronic degenerative disc disease in the lumbar spine noted. IMPRESSION: 1. There is atelectasis and mild infiltrate in the lung bases which was not evident on CT scan of 03/02/2025. There are no pleural effusions. 2. The gallbladder is again noted be surgically absent. The biliary tree is dilated, somewhat more so than expected in a post cholecystectomy 54-year-old patient. Recommend correlation with appropriate blood work. There is no obvious radiopaque calculus in the lower CBD and no pancreatic head mass evident. The pancreatic duct is not dilated. 3. There is radiopaque material again noted throughout the colon most probably related to ingested medication by the patient. There also 3 similar-appearing densities in the cecum which are probably undigested pills. 4. There is mild-moderate distension of the urinary bladder. No other focal findings in the bladder and no hydronephrosis evident. Lab Data Lab results reviewed: Yes I reviewed the patient's lab results. Labs: 03/12/25 08:37 Blood Blood Culture - Pending 03/12/25 08:37 Blood Blood Culture - Pending Laboratory Tests Range/Units 03/12/25 08:25 WBC (4.4-10.8) 10^3/uL 10.79 RBC (3.93-5.22) 10^6/uL 3.82 L Hgb (11.2-15.7) g/dL 12.2 Hct (36.0-46.0) % 36.7 MCV (80-95) fL 96 H MCH (27.0-33.0) pg 31.9 MCHC (32.0-36.0) % 33.2 RDW (11.7-14.6) % 13.5 Plt Count (130-400) 10^3/uL 385 MPV (8.0-11.0) fL 11.5 H Immature Gran % % 0.6 Neutrophils % % 71.1 Lymphocytes % % 15.2 Monocytes % % 5.1 Eosinophils % % 6.9 Basophils % % 1.1 Nucleated RBC % (0.0-0.3) % 0.0 Absolute Neutrophils (1.2-6.7) 10^3/uL 7.68 H Absolute Lymphocytes (1.2-3.4) 10^3/uL 1.64 Absolute Monocytes (0.1-0.8) 10^3/uL 0.55 Absolute Eosinophils (0.0-0.7) 10^3/uL 0.74 H Absolute Basophils (0.0-0.2) 10^3/uL 0.12 VBG pH (7.31-7.41) 7.36 VBG pCO2 (41-51) mmHg 37 L VBG pO2 mmHg 45 VBG HCO3 (23-28) mmol/L 21 L VBG Total CO2 (24-29) mmol/L 19 L VBG O2 Saturation % 83 VBG Base Excess (-2-3) mmol/L -5 L VBG Lactate (<or=2.0) mmol/L 4.1 H* Sodium (136-145) mmol/L 141 Potassium (3.5-5.1) mmol/L 3.8 Chloride (98-107) mmol/L 106 Carbon Dioxide (21.0-32.0) mmol/L 23.8 Anion Gap (3-11) mmol/L 11.2 H BUN (7-18) mg/dL 6 L Creatinine (0.55-1.02) mg/dL 0.9 Est GFR (CKD-EPI 2020) (mL/min/1.73m2) 76.92 Glucose (74-106) mg/dL 78 Calcium (8.5-10.1) mg/dL 9.2 Magnesium (1.8-2.4) mg/dL 2.1 Total Bilirubin (0.2-1.0) mg/dL 0.4 AST (15-37) U/L 89 H ALT (14-59) U/L 65 H Alkaline Phosphatase (46-116) U/L 143 H Troponin I (<or=51) ng/L 5 Total Protein (6.4-8.2) g/dL 7.2 Albumin (3.4-5.0) g/dL 3.2 L Lipase (<78) U/L 16 TSH (0.36-3.74) uIU/mL 0.98 PFSH All Active Problems (Updated 03/12/25 @ 12:14 by Travis Torres) DVT prophylaxis (Acute) Sepsis (Acute) Encephalopathy (Acute) Elevated LFTs (Acute) Nausea (Acute) Abdominal pain (Acute) Nausea vomiting and diarrhea (Acute) UTI (urinary tract infection) (Acute) Acute hypokalemia (Acute) Well woman exam with routine gynecological exam (Acute) Screening for cervical cancer (Acute) Family history of colon cancer (Acute) Post-menopausal bleeding (Acute) Anxiety (Chronic) Folate deficiency (Acute) B12 deficiency (Acute) Depression (Chronic) Migraine headache (Chronic) Hyponatremia (Acute) Distal radius fracture, left (Acute 10/15/22) Right ankle sprain (Acute) Medical History (Updated 03/12/25 @ 12:14 by Travis Torres) Bipolar affective disorder Alcohol abuse GERD (gastroesophageal reflux disease) HTN (hypertension) Surgical History (Updated 03/12/25 @ 12:16 by Travis Torres) [place] bilateral ooph[place]omy benign disease[place] [facility] [place] S/P tubal ligation converted to open Family History (Updated 03/12/25 @ 12:17 by Travis Torres) Mother Aortic aneurysm rupture Breast cancer Social History (Updated 03/12/25 @ 12:18 by Travis Torres) Smoking/Tobacco Use Status: Former Tobacco Use Smoking risk assessment performed?: Yes Alcohol Intake: former Drug use: Occasionally Substance use type: marijuana Housing: house Do you feel safe at home: Yes Do you feel safe in your relationship?: Yes Additional Social history: Grew up in [place], [employer]. Lives in [place]. Son and sister are supports
--- NOTE | 2025-03-12 08:30 | DI.CT_ITS ---
Exam(s) CT ABDOMEN PELVIS W EXAM: CT ABDOMEN PELVIS W CLINICAL HISTORY: R sided ABD pain. TECHNIQUE: Imaging Protocol: Axial computed tomography images with coronal and sagittal reformatted images were created and reviewed CONTRAST MATERIAL: Intravenous: Omnipaque-350 100cc Oral: None COMPARISON: CT CT ABDOMEN PELVIS CTA from 03/02/[address] BRAIN NECK CTA from 03/12/2025 FINDINGS: VISUALIZED LUNG BASES: There is atelectasis and mild infiltrate in both lung bases which was not evident on recent CT scan of 10 days ago.. ABDOMEN: There is no ascites. LIVER: There mildly dilated intrahepatic ducts evident in both lobes of the liver which is possibly related to post cholecystectomy status. GALLBLADDER/BILIARY: The gallbladder is again noted be surgically absent. CBD diameter is prominent, measuring 10-11 mm., possibly related to post cholecystectomy status. There is no obvious radiopaque calculus seen in the lower CBD and no obvious mass at this level. PANCREAS: No evidence of pancreatic mass nor dilatation of the pancreatic duct. SPLEEN: Spleen is not enlarged. No obvious intrasplenic lesions. Splenic and portal veins are patent. ADRENALS: There are no significant adrenal masses. KIDNEYS:No significant focal findings in the right kidney. There is a small benign cyst in the posterior cortex of the left kidney again noted measuring 1.4 x 1.2 cm. This benign cyst does not require further imaging workup. No solid renal masses. No calculi nor hydronephrosis.. ABDOMINAL AORTA: Abdominal aorta is not enlarged. Iliac arteries also unremarkable. LYMPH NODES:There is no retroperitoneal nor para-aortic adenopathy. ABDOMINAL WALL: No evidence of significant anterior abdominal wall nor inguinal hernia. GI: Again noted is a radiopaque material scattered throughout the large bowel lumen and layering in the cecum. There also 3 larger radiopaque densities layering in the cecum which may be undigested pills. There is abundant fecal material noted throughout the colon. The diameter of small bowel loops is upper normal. No evidence of small-bowel obstruction or free air nor abscess. PELVIS: GI: Appendix is again not able to be identified and may be surgically absent.No evidence of sigmoid diverticulitis. LYMPH NODES: There is no intrapelvic nor inguinal adenopathy. REPRODUCTIVE: Uterus and adnexal regions appear age-appropriate. There no extraovarian adnexal masses and no free fluid in the pelvis. URINARY BLADDER: The urinary bladder is moderately distended. No calculi nor obvious masses evident OSSEOUS: No fractures and no significant osseous lesions. Multilevel chronic degenerative disc disease in the lumbar spine noted. IMPRESSION: 1. There is atelectasis and mild infiltrate in the lung bases which was not evident on CT scan of 03/02/2025. There are no pleural effusions. 2. The gallbladder is again noted be surgically absent. The biliary tree is dilated, somewhat more so than expected in a post cholecystectomy 54-year-old patient. Recommend correlation with appropriate blood work. There is no obvious radiopaque calculus in the lower CBD and no pancreatic head mass e vident. The pancreatic duct is not dilated. 3. There is radiopaque material again noted throughout the colon most probably related to ingested medication by the patient. There also 3 similar-appearing densities in the cecum which are probably undigested pills. 4. There is mild-moderate distension of the urinary bladder. No other focal findings in the bladder and no hydronephrosis evident. Called to ER 03/04/2025 at 9:45 a.m. RADIATION DOSE DELIVERED: 3,097.97mGy.cm Total DLP DATA REPOSITORY: All CT scans at this facility are submitted to the National Radiology Data Registry (NRDR) Dose Index Registry (DIR) with the [employer] ([employer]). RADIATION OPTIMIZATION: All CT scans at this facility use at least one of these dose optimization techniques: automated exposure control; mA and/or kV adjustment per patient size (includes targeted exams where dose is matched to clinical indication); or iterative reconstruction.
--- NOTE | 2025-03-12 08:30 | DI.CT_ITS ---
Exam(s) CT BRAIN NECK CTA EXAM: CT BRAIN NECK CTA CLINICAL HISTORY: altered mentation onset 1200 yesterday. TECHNIQUE: Imaging Protocol: Axial CT angiography was performed with multi- slice acquisition and multi-planar and/or 3D reconstructions. CONTRAST MATERIAL: Intravenous: Omnipaque 350 Contrast volume:75 mL COMPARISON: CT CT BRAIN NECK CTA from 01/07/2025 FINDINGS: CTA Neck W: Aortic arch anatomy: The aortic arch anatomy is conventional and there is no significant stenosis at the origin of the great vessels off of the aortic arch. No intimal flap evident. Anterior circulation: Both common carotid arteries ascend with normal luminal diameters. At the level the carotid bulbs and proximal internal carotid arteries there is minimal plaque without hemodynamically significant stenosis evident. Posterior circulation: Both vertebral arteries originate in conventional fashion off of the subclavian arteries and there is no obvious stenosis at the origin of the vertebral arteries. Both vertebral arteries exhibit normal luminal diameters within the foramen transversarium. Both vertebral arteries contribute to the formation of the basilar artery at the skull base. CTA Brain W: Anterior circulation: Both internal carotid arteries are patent in the skull base-carotid canals as well as within the cavernous sinuses. The supraclinoid aspects of the ICAs are patent. Both A1 segments are patent as are the anterior cerebral arteries and there is no evidence of aneurysm at the level of the anterior communicating artery. Both middle cerebral arteries are patent with no evidence of significant stenosis nor intraluminal thrombus. There also no aneurysms of these vessels. Posterior circulation: The basilar artery ascends in the midline. Distally it gives off patent bilateral superior cerebellar arteries. Above this level the basilar artery terminates as patent bilateral posterior cerebral arteries. There is no evidence of aneurysm at the tip of the basilar artery nor elsewhere in the [id number]. CT BRAIN: There is no evidence of intracranial hemorrhage, mass effect, or shift of midline structures. There are no extra-axial fluid collections. Ventricles are not enlarged or shifted. There are no ring enhancing lesions in the brain and no abnormal meningeal enhancement. IMPRESSION: 1. Patent carotid arteries in the neck. No hemodynamically significant stenosis. 2. Patent vertebral arteries. 3. Patent intracranial arteries. 4. No acute intracranial findings. No abnormal intracranial enhancement. Report called by myself to ER provider on 2024 at 9:27 am RADIATION DOSE DELIVERED: 3,097.97mGy.cm Total DLP DATA REPOSITORY: All CT scans at this facility are submitted to the National Radiology Data Registry (NRDR) Dose Index Registry (DIR) with the [employer] (ACR). RADIATION OPTIMIZATION: All CT scans at this facility use at least one of these dose optimization techniques: automated exposure control; mA and/or kV adjustment per patient size (includes targeted exams where dose is matched to clinical indication); or iterative reconstruction.
[2025-03-12 08:44] LABS: Abs Immature Grans 0.06 10^3/uL (0.0-0.06); BE (Venous) -5 mmol/L (-2-3); HCO3 (Venous) 21 mmol/L (23-28); HCT 36.7 % (36.0-46.0); HGB 12.2 g/dL (11.2-15.7); Immature Grans % 0.6 %; MCH 31.9 pg (27.0-33.0); MCHC 33.2 % (32.0-36.0); MCV 96 fL (80-95); MPV 11.5 fL (8.0-11.0); O2 Sat (Venous) 83 %; Platelet Count 385 10^3/uL (130-400); RBC 3.82 10^6/uL (3.93-5.22); RDW 13.5 % (11.7-14.6); RDW-SD 48.1 fL; TCO2 (Venous) 19 mmol/L (24-29); WBC 10.79 10^3/uL (4.4-10.8); pCO2 (Venous) 37 mmHg (41-51); pO2 (Venous) 45 mmHg
[2025-03-12] MEDS: Omnipaque 350 MG/ML 100 ML BTL 75 ML IJ (08:52)
[2025-03-12] MEDS: Normal Saline - Diluent 50 ML VIAL IJ (08:53)
[2025-03-12] MEDS: Normal Saline 1,000 ML 1000 ML IV (09:14)
[2025-03-12] MEDS: ACETAMINOPHEN 1,000 MG/100 ML BAG 400 MG IVPB (09:14)
[2025-03-12 09:22] LABS: ALT 65 U/L (14-59); AST 89 U/L (15-37); Albumin 3.2 g/dL (3.4-5.0); Alkaline Phosphatase 143 U/L (46-116); Anion Gap 11.2 mmol/L (3-11); BUN 6 mg/dL (7-18); Bilirubin, Total 0.4 mg/dL (0.2-1.0); CO2 23.8 mmol/L (21.0-32.0); Calcium 9.2 mg/dL (8.5-10.1); Chloride 106 mmol/L (98-107); Estimated GFR 76.92 (mL/min/1.73m2); Glucose 78 mg/dL (74-106); Lipase 16 U/L (<78); Magnesium 2.1 mg/dL (1.8-2.4); Potassium 3.8 mmol/L (3.5-5.1); Sodium 141 mmol/L (136-145); TSH (W/Ref FT4) 0.98 uIU/mL (0.36-3.74); Total Protein 7.2 g/dL (6.4-8.2); Troponin I 5 ng/L (<or=51)
[2025-03-12] MEDS: CEFEPIME 2 GM in Normal Saline 100 ML IVPB (09:47)
[2025-03-12] MEDS: metroNIDAZOLE 500 MG/100 ML BAG 100 MG IVPB (09:47)
[2025-03-12 09:49] LABS: Ammonia 27 umol/L (11-32)
[2025-03-12 11:14] LABS: Glucose Negative (Negative)
[2025-03-12 11:28] LABS: C & S Indicated? No; RBC Negative HPF (0-2)
[2025-03-12 11:32] LABS: Acetaminophen < 2 ug/mL (10-30)
--- NOTE | 2025-03-12 11:35 | W.PC.ACHO ---
Registration Status: REG ER Primary Language: Preferred Language: ED Information & Data Chief Complaint Abd Prob 03/12/25 09:19 Chief Complaint Abd Prob 03/12/25 08:23 Triage Note Patient complaining of abd 03/12/25 08:15 pain for 2 weeks Medical / Surgical History (Last Reviewed 03/02/25 @ 13:42 by Slim Lopez MD) Alcohol abuse GERD (gastroesophageal reflux disease) HTN (hypertension) Most Recent Vital Signs Temperature 37.1 C 03/12/25 08:18 Temperature Source Oral 03/12/25 08:18 Pulse 89 03/12/25 10:40 Pulse 89 03/12/25 10:40 Respiratory Rate 20 03/12/25 10:40 Respiratory Effort Normal, Non-Labored 03/12/25 09:16 Respiratory Depth Normal 03/12/25 09:16 Respiratory Pattern Normal 03/12/25 09:16 Blood Pressure 109/69 03/12/25 08:18 Pulse Oximetry 96 03/12/25 10:40 Oxygen Delivery Method Room Air 03/12/25 08:18 Oxygen Flow Rate 0 03/12/25 08:18 Allergies No Known Allergies Allergy (Verified 03/12/25 08:18) Precautions Isolation Fall precaution 03/12/25 09:19 Active Medications Generic Name Dose Route Start Last Admin Trade Name Georgesq PRN Reason Stop Dose Admin Iohexol 75 ml 03/12/25 09:00 03/12/25 08:52 Omnipaque 350 Mg/Ml 100 Ml Btl IJ 04/11/25 23:59 75 ml DIRECTED OSIRIS Administration Sodium Chloride 50 ml 03/12/25 09:00 03/12/25 08:53 Normal Saline - Diluent 50 Ml Vial IJ 50 ml .FOR DI USE OSIRIS Administration IV IV Catheter Type [Right Saline Lock Antecubital] IV Catheter Gauge [Right 20 Antecubital] Diet Orders Category Date Time Status Nothing Per Oral [DIET] Nutrition 03/12/25 11:04 Active Diagnostics 03/12/25 03/12/25 03/12/25 Range/Units 11:00 09:19 08:37 WBC (4.4-10.8) 10^3/uL RBC (3.93-5.22) 10^6/uL Hgb (11.2-15.7) g/dL Hct (36.0-46.0) % MCV (80-95) fL MCH (27.0-33.0) pg MCHC (32.0-36.0) % RDW (11.7-14.6) % Plt Count (130-400) 10^3/uL MPV (8.0-11.0) fL Immature Gran % % Neutrophils % % Lymphocytes % % Monocytes % % Eosinophils % % Basophils % % Nucleated RBC % (0.0-0.3) % Absolute Neutrophils (1.2-6.7) 10^3/uL Absolute Lymphocytes (1.2-3.4) 10^3/uL Absolute Monocytes (0.1-0.8) 10^3/uL Absolute Eosinophils (0.0-0.7) 10^3/uL Absolute Basophils (0.0-0.2) 10^3/uL VBG pH (7.31-7.41) VBG pCO2 (41-51) mmHg VBG pO2 mmHg VBG HCO3 (23-28) mmol/L VBG Total CO2 (24-29) mmol/L VBG O2 Saturation % VBG Base Excess (-2-3) mmol/L VBG Lactate (<or=2.0) mmol/L Sodium (136-145) mmol/L Potassium (3.5-5.1) mmol/L Chloride (98-107) mmol/L Carbon Dioxide (21.0-32.0) mmol/L Anion Gap (3-11) mmol/L BUN (7-18) mg/dL Creatinine (0.55-1.02) mg/dL Est GFR (CKD-EPI 2020) (mL/min/1.73m2) Glucose (74-106) mg/dL Calcium (8.5-10.1) mg/dL Magnesium (1.8-2.4) mg/dL Total Bilirubin (0.2-1.0) mg/dL AST (15-37) U/L ALT (14-59) U/L Alkaline Phosphatase (46-116) U/L Ammonia 27 (11-32) umol/L Troponin I (<or=51) ng/L Total Protein (6.4-8.2) g/dL Albumin (3.4-5.0) g/dL Lipase (<78) U/L TSH (0.36-3.74) uIU/mL Urine Color Yellow (Yellow) Urine Clarity Clear (Clear) Urine pH 7.0 (5-8) Ur Specific [place] 1.010 (1.005-1.025) Urine Protein Negative (Neg-Trace) mg/dL Urine Ketones Negative (Negative) mg/dL Urine Blood Negative (Negative) Urine Nitrite Positive H (Negative) Urine Bilirubin Negative (Negative) Urine Urobilinogen 0.2 (Up to 0.2) mg/dL Ur Leukocyte Esterase Small H (Negative) Urine RBC Negative (0-2) HPF Urine WBC 3-5 (0-5) HPF Ur Epithelial Cells Rare (Negative) HPF Urine Crystals Negative (Negative) HPF Urine Bacteria Rare (Negative) HPF Urine Casts Negative (Negative) LPF Urine Mucus Negative (Negative) Ur Culture Indicated? No Urine Glucose Negative (Negative) mg/dL Urine Opiates Screen Pending Acetaminophen < 2 (10-30) ug/mL Ur Barbiturates Screen Pending Valproic Acid 114.7 ( - 150) ug/mL Ur Tricyclics Screen Pending Ur Amphetamines Screen Pending U Benzodiazepines Scrn Pending Urine Cocaine Screen Pending Ur THC Screen Pending Ethyl Alcohol < 3.0 (<10) mg/dL 03/12/25 Range/Units 08:25 WBC 10.79 (4.4-10.8) 10^3/uL RBC 3.82 L (3.93-5.22) 10^6/uL Hgb 12.2 (11.2-15.7) g/dL Hct 36.7 (36.0-46.0) % MCV 96 H (80-95) fL MCH 31.9 (27.0-33.0) pg MCHC 33.2 (32.0-36.0) % RDW 13.5 (11.7-14.6) % Plt Count 385 (130-400) 10^3/uL MPV 11.5 H (8.0-11.0) fL Immature Gran % 0.6 % Neutrophils % 71.1 % Lymphocytes % 15.2 % Monocytes % 5.1 % Eosinophils % 6.9 % Basophils % 1.1 % Nucleated RBC % 0.0 (0.0-0.3) % Absolute Neutrophils 7.68 H (1.2-6.7) 10^3/uL Absolute Lymphocytes 1.64 (1.2-3.4) 10^3/uL Absolute Monocytes 0.55 (0.1-0.8) 10^3/uL Absolute Eosinophils 0.74 H (0.0-0.7) 10^3/uL Absolute Basophils 0.12 (0.0-0.2) 10^3/uL VBG pH 7.36 (7.31-7.41) VBG pCO2 37 L (41-51) mmHg VBG pO2 45 mmHg VBG HCO3 21 L (23-28) mmol/L VBG Total CO2 19 L (24-29) mmol/L VBG O2 Saturation 83 % VBG Base Excess -5 L (-2-3) mmol/L VBG Lactate 4.1 H* (<or=2.0) mmol/L Sodium 141 (136-145) mmol/L Potassium 3.8 (3.5-5.1) mmol/L Chloride 106 (98-107) mmol/L Carbon Dioxide 23.8 (21.0-32.0) mmol/L Anion Gap 11.2 H (3-11) mmol/L BUN 6 L (7-18) mg/dL Creatinine 0.9 (0.55-1.02) mg/dL Est GFR (CKD-EPI 2020) 76.92 (mL/min/1.73m2) Glucose 78 (74-106) mg/dL Calcium 9.2 (8.5-10.1) mg/dL Magnesium 2.1 (1.8-2.4) mg/dL Total Bilirubin 0.4 (0.2-1.0) mg/dL AST 89 H (15-37) U/L ALT 65 H (14-59) U/L Alkaline Phosphatase 143 H (46-116) U/L Ammonia (11-32) umol/L Troponin I 5 (<or=51) ng/L Total Protein 7.2 (6.4-8.2) g/dL Albumin 3.2 L (3.4-5.0) g/dL Lipase 16 (<78) U/L TSH 0.98 (0.36-3.74) uIU/mL Urine Color (Yellow) Urine Clarity (Clear) Urine pH (5-8) Ur Specific [place] (1.005-1.025) Urine Protein (Neg-Trace) mg/dL Urine Ketones (Negative) mg/dL Urine Blood (Negative) Urine Nitrite (Negative) Urine Bilirubin (Negative) Urine Urobilinogen (Up to 0.2) mg/dL Ur Leukocyte Esterase (Negative) Urine RBC (0-2) HPF Urine WBC (0-5) HPF Ur Epithelial Cells (Negative) HPF Urine Crystals (Negative) HPF Urine Bacteria (Negative) HPF Urine Casts (Negative) LPF Urine Mucus (Negative) Ur Culture Indicated? Urine Glucose (Negative) mg/dL Urine Opiates Screen Acetaminophen (10-30) ug/mL Ur Barbiturates Screen Valproic Acid ( - 150) ug/mL Ur Tricyclics Screen Ur Amphetamines Screen U Benzodiazepines Scrn Urine Cocaine Screen Ur THC Screen Ethyl Alcohol (<10) mg/dL 03/12/25 09:27 Blood Culture - Pending Blood 03/12/25 08:37 Blood Culture - Pending Blood [id number]-[id number] Documentation Fingerstick Glucose Start: 03/12/25 08:24 Freq: Status: Active Protocol: Activity Type Activity Date Activity User E-sign Co-sign Detail Recorded Client Recorded Date Recorded By Document 03/12/25 08:23 BKG DAEMON(5) [id number] 03/12/25 08:24 BKG DAEMON(6) Intake and Output - 24 Hour Total 03/12/25 08:08 thru 03/12/25 10:43 Intake Total 1310 Balance 1310 Weight 68.039 kg Intake: IV 1310 Falls Risk Assessment History of Falls No History 03/12/25 09:20 Contributing Factors Confusion,Impairments, 03/12/25 09:20 Medications Ambulatory Aids Uses ambulatory device + 03/12/25 09:20 Tubes/Lines With any additional score 03/12/25 09:20 Gait Evaluation W/any additional score 03/12/25 09:20 Cognition Cognitive impairment 03/12/25 09:20 Fall Total Score 94 03/12/25 09:20 Level of Risk Maximum Risk 03/12/25 09:20 v v v v v v v v v Sending and/or Receiving Nurses: Please use comment section below to note any information pertinent to the patient hand-off not included above. Information / Comments: Report received from:briana
[2025-03-12 11:44] LABS: Cannabinoids THC Positive (Negative); METHADONE URINE SCREEN Negative (Negative)
--- NOTE | 2025-03-12 12:11 | W.PM.HP.N ---
Date of service: 03/12/25 Time of Service: 12:11 Assessment and Plan Assessment and plan (1) Abdominal pain: Status: Acute Assessment and plan: 2+ weeks of abdominal pain with unclear etiology associated with elevation of lactate. Previously described as epigastric, today more tender on left side and suprapubic. CT A/P today and 03/02 did not reveal a clear source. CTA was done 03/02 with elevated lactate, did not indicate ischemia. CT does show mild dilation of biliary ducts, with elevation AST/ALT/alk phos consider RUQ u/s. (2) Encephalopathy: Status: Acute Assessment and plan: This started after resuming tramadol and pregabalin at a pretty aggressive initial dose as well as taking THC gummy last night. I think this is likely related to the medication use rather than a manifestation of her acute illness, but we cannot be certain. CT/CTA head/neck reassuring that no stroke or other intracraneal process. H/o AUD but no recent use, levels negative. Valproate levels slightly high, will hold this for now and decrease dose when resumed. Monitor MS, stop new meds and hold benzodiazepines, expect some improvement over the day. (3) Elevated LFTs: Status: Acute Assessment and plan: As above some dilation of biliary ducts, but mild, no RUQ pain so getting u/s but I doubt this as etiololgy (4) Bipolar affective disorder: Assessment and plan: had been stable on duloxetine, valproate, olanzapine. Holding valproate with high levels. (5) Migraine headache: Status: Chronic Assessment and plan: Chronic migraines, on amiovig and topiramate. No current [facility] and CT head/neck reassuring. Will continue topiramate in evenening unless she remains frankly confused, in which case I would hold this as well. (6) DVT prophylaxis: Status: Acute Assessment and plan: enoxaparin History of Present Illness Narrative: 54 yo F with BPAD on valproate and chornic clonezepam, migraines, and alchol use disorder in remission who is presenting with confusion for the past day after 2 weeks of undiagnosed abdominal pain. She started getting pain about 2 weeks ago. Pain is left sided mid to lower quadrant, some radiation to back. Aching, like labor at times, but constant rather than colicy. She was seen in follow up at PCP office 03/09. She was given tramadol 50mg TID and pregabalin starting at dose of 75mg BID (she had taken this for chronic fibromyalgia pain in the past and requested it). 03/11 afternoon she started getting confused, more evident overnight. She took a THC gummy so family thought this might wear off, but it did not improve and she was brought in this morning for evaluation. No recent EtOH or other drugs. She has taken naproxen, helping a little along with tramadol. Not taking acetaminophen as it doesn't typically help her pain. Review of Systems All systems reviewed & are unremarkable except as noted in HPI and below Constitutional Constitutional: Reports weight loss (about 6 lbs in the past 2 weeks) PFSH All Active Problems DVT prophylaxis (Acute) Sepsis (Acute) Encephalopathy (Acute) Elevated LFTs (Acute) Nausea (Acute) Abdominal pain (Acute) Nausea vomiting and diarrhea (Acute) UTI (urinary tract infection) (Acute) Acute hypokalemia (Acute) Well woman exam with routine gynecological exam (Acute) Screening for cervical cancer (Acute) Family history of colon cancer (Acute) Post-menopausal bleeding (Acute) Anxiety (Chronic) Folate deficiency (Acute) B12 deficiency (Acute) Depression (Chronic) Migraine headache (Chronic) Hyponatremia (Acute) Distal radius fracture, left (Acute 10/15/22) Right ankle sprain (Acute) Medical History Bipolar affective disorder Alcohol abuse GERD (gastroesophageal reflux disease) HTN (hypertension) Surgical History S/P bilateral oophorectomy benign disease, 09/2009 [facility] [place] S/P cholecystectomy S/P tubal ligation converted to open Family History Mother Aortic aneurysm rupture Breast cancer Social History Smoking/Tobacco Use Status: Former Tobacco Use Smoking risk assessment performed?: Yes Alcohol Intake: former Drug use: Occasionally Substance use type: marijuana Housing: house Do you feel safe at home: Yes Do you feel safe in your relationship?: Yes Additional Social history: Grew up in [place], [employer]. Lives in [place]. Son and sister are supports Meds Allergies and Home Medications Allergies Allergy/AdvReac Type Severity Reaction Status Date / Time No Known Allergies Allergy Verified 03/12/25 08:18 Home Medications ?Medication ?Instructions ?Recorded ?Confirmed ?Type clonazepam 0.5 mg tablet 0.5 mg PO TID PRN 09/22/21 03/12/25 History duloxetine 60 mg capsule,delayed 60 mg PO DAILY 09/22/21 03/12/25 History release erenumab-aooe 140 mg/mL 140 mg subcut .MONTHLY 10/15/22 03/12/25 History subcutaneous auto-injector (Aimovig Autoinjector) divalproex 500 mg tablet,delayed 500 mg PO BID 08/06/23 03/12/25 History release multivitamin (Multiple Vitamins 1 tab PO DAILY #30 tabs 08/08/23 03/12/25 Rx tablet) albuterol sulfate 90 mcg/actuation 2 puff inhalation Q4H PRN 03/02/25 03/12/25 History aerosol inhaler famotidine 20 mg tablet (Pepcid) 20 mg PO BID #28 tabs 03/02/25 03/12/25 Rx meclizine 25 mg tablet 25 mg PO TID PRN 03/02/25 03/12/25 History ondansetron 4 mg disintegrating 4 mg PO Q8H PRN #10 tabs 03/02/25 03/12/25 Rx tablet sennosides 8.6 mg-docusate sodium 1 tab-cap PO BID 03/02/25 03/12/25 History 50 mg tablet (Stimulant Laxative Plus) topiramate 200 mg tablet 200 mg PO BID 03/02/25 03/12/25 History tramadol 50 mg tablet 50 mg PO BID PRN pain #10 tabs 03/02/25 03/12/25 Rx trazodone 100 mg tablet 100 mg PO BID 03/02/25 03/12/25 History olanzapine 5 mg tablet 5 mg PO HS 03/12/25 03/12/25 History potassium chloride 10 mEq 10 meq PO DAILY 03/12/25 03/12/25 History capsule,extended release pregabalin 75 mg capsule 75 mg PO BID 03/12/25 03/12/25 History Exam Narrative Exam Narrative: GEN: Somnolent, wakes when name focuses, but drifts off. Oriented to self and place, year but gives date as March. She does recognize MD from clinic, but only able to give vague history, sister helps. She is pleasant and cooperative. No acute distress at rest. HEENT: Head atraumatic. Conjunctiva clear, no icterus. PEERL, EOMI. no rhinorrhea. MMM, OP benign. Neck is supple with no masses or lymphadenopathy, trachea midline LUNGS: CTAB with normal effort CV: RRR with no murmurs, gallops, or rubs. ABD: active bowel sounds, soft, nontender and nondistended. No masses. EXT: no cyanosis, clubbing, or edema MSK: No joint redness or swelling NEURO: CN 2-12 grossly intact except speech slightly slurred at times. Normal/symmetric strength and sensation of 4 extremities. Able to stand on her own. Frequent twitching, somewhat flapping tremor with hands extended. Normal FNF/coordination. SKIN: No rashes or open wounds. PSYCH: normal mood and affect, no hallucinations, but recent memory impaired Results Imaging Imaging Studies: 1. There is atelectasis and mild infiltrate in the lung bases which was not evident on CT scan of 03/02/2025. There are no pleural effusions. 2. The gallbladder is again noted be surgically absent. The biliary tree is dilated, somewhat more so than expected in a post cholecystectomy 54-year-old patient. Recommend correlation with appropriate blood work. There is no obvious radiopaque calculus in the lower CBD and no pancreatic head mass evident. The pancreatic duct is not dilated. 3. There is radiopaque material again noted throughout the colon most probably related to ingested medication by the patient. There also 3 similar-appearing densities in the cecum which are probably undigested pills. 4. There is mild-moderate distension of the urinary bladder. No other focal findings in the bladder and no hydronephrosis evident. CTA head/neck: 1. Patent carotid arteries in the neck. No hemodynamically significant stenosis. 2. Patent vertebral arteries. 3. Patent intracranial arteries. 4. No acute intracranial findings. No abnormal intracranial enhancement. Labs 03/12/25 08:25 03/12/25 08:25 Labs: Laboratory Results - last 24 hr 03/12/25 03/12/25 03/12/25 08:25 08:37 09:19 WBC 10.79 RBC 3.82 L Hgb 12.2 Hct 36.7 MCV 96 H MCH 31.9 MCHC 33.2 RDW 13.5 Plt Count 385 MPV 11.5 H Immature Gran % 0.6 Neutrophils % 71.1 Lymphocytes % 15.2 Monocytes % 5.1 Eosinophils % 6.9 Basophils % 1.1 Nucleated RBC % 0.0 Absolute Neutrophils 7.68 H Absolute Lymphocytes 1.64 Absolute Monocytes 0.55 Absolute Eosinophils 0.74 H Absolute Basophils 0.12 VBG pH 7.36 VBG pCO2 37 L VBG pO2 45 VBG HCO3 21 L VBG Total CO2 19 L VBG O2 Saturation 83 VBG Base Excess -5 L VBG Lactate 4.1 H* Sodium 141 Potassium 3.8 Chloride 106 Carbon Dioxide 23.8 Anion Gap 11.2 H BUN 6 L Creatinine 0.9 Est GFR (CKD-EPI 2020) 76.92 Glucose 78 Calcium 9.2 Magnesium 2.1 Total Bilirubin 0.4 AST 89 H ALT 65 H Alkaline Phosphatase 143 H Ammonia 27 Troponin I 5 Total Protein 7.2 Albumin 3.2 L Lipase 16 TSH 0.98 Urine Color Urine Clarity Urine pH Ur Specific [place] Urine Protein Urine Ketones Urine Blood Urine Nitrite Urine Bilirubin Urine Urobilinogen Ur Leukocyte Esterase Urine RBC Urine WBC Ur Epithelial Cells Urine Crystals Urine Bacteria Urine Casts Urine Mucus Ur Culture Indicated? Urine Glucose Urine Opiates Screen Urine Methadone Screen Acetaminophen < 2 Ur Barbiturates Screen Valproic Acid 114.7 Ur Tricyclics Screen Ur Amphetamines Screen U Benzodiazepines Scrn Urine Cocaine Screen Ur THC Screen Ethyl Alcohol < 3.0 03/12/25 11:00 WBC RBC Hgb Hct MCV MCH MCHC RDW Plt Count MPV Immature Gran % Neutrophils % Lymphocytes % Monocytes % Eosinophils % Basophils % Nucleated RBC % Absolute Neutrophils Absolute Lymphocytes Absolute Monocytes Absolute Eosinophils Absolute Basophils VBG pH VBG pCO2 VBG pO2 VBG HCO3 VBG Total CO2 VBG O2 Saturation VBG Base Excess VBG Lactate Sodium Potassium Chloride Carbon Dioxide Anion Gap BUN Creatinine Est GFR (CKD-EPI 2020) Glucose Calcium Magnesium Total Bilirubin AST ALT Alkaline Phosphatase Ammonia Troponin I Total Protein Albumin Lipase TSH Urine Color Yellow Urine Clarity Clear Urine pH 7.0 Ur Specific [place] 1.010 Urine Protein Negative Urine Ketones Negative Urine Blood Negative Urine Nitrite Positive H Urine Bilirubin Negative Urine Urobilinogen 0.2 Ur Leukocyte Esterase Small H Urine RBC Negative Urine WBC 3-5 Ur Epithelial Cells Rare Urine Crystals Negative Urine Bacteria Rare Urine Casts Negative Urine Mucus Negative Ur Culture Indicated? No Urine Glucose Negative Urine Opiates Screen Negative Urine Methadone Screen Negative Acetaminophen Ur Barbiturates Screen Negative Valproic Acid Ur Tricyclics Screen Negative Ur Amphetamines Screen Negative U Benzodiazepines Scrn Negative Urine Cocaine Screen Negative Ur THC Screen Positive A Ethyl Alcohol Last Vital Signs Temp 37.1 C 03/12/25 08:18 Pulse 89 03/12/25 10:40 Resp 20 03/12/25 10:40 BP 109/69 03/12/25 08:18 Pulse Ox 96 03/12/25 10:40 Time Spent Time spent with Patient: 55-74 minutes Time was spent: preparing to see the patient(eg.review tests), obtaining and/or reviewing separately otained hiistory, ordering medications,tests, procedures, referring, communicating with other health career guidance technician, indepentently interpreting results, counseling the patient and care coordination
[2025-03-12] MEDS: Pantoprazole 40 MG VIAL IVP (12:46)
[2025-03-12] MEDS: POTASSIUM CHLORIDE/D5-0.45NACL 1,000 ML 125 MEQ IV ×2 (12:47→21:23)
[2025-03-12] MEDS: traZODone 100 MG TAB PO (21:18)
[2025-03-12] MEDS: Topiramate 100 MG TAB 200 MG PO (21:18)
[2025-03-12] MEDS: Sennosides/Docusate Sodium TAB 1 TAB PO (21:19)
[2025-03-12] MEDS: OLANZapine ODT 5 MG TAB PO (21:19)
--- NOTE | 2025-03-13 | DI.US_ITS ---
Exam(s) US ABDOMEN EXAM: US ABDOMEN CLINICAL HISTORY: abd pain, biliary duct dilation on CT TECHNIQUE: Ultrasound of complete upper abdomen performed using standard protocol. COMPARISON: CT CT ABDOMEN PELVIS CTA from 03/02/2025 FINDINGS: There is no ascites evident. LIVER: There are no hepatic lesions evident nor obvious dilatation of intrahepatic ducts. GALLBLADDER/BILIARY: The gallbladder surgically absent. The common hepatic duct ismildly dilated, measuring 8mm at the level of josue hepatis. This may be related to post cholecystectomy status. PANCREAS: There is no evidence of pancreatic mass nor dilatation of the pancreatic duct. SPLEEN: The spleen is not enlarged and there are no intrasplenic lesions evident. KIDNEYS:Kidneys exhibit normal size with no evidence of solid mass, calculus, nor hydronephrosis. There is the single benign cyst in the left kidney which measures 1.5 cm and does not require further imaging workup. ABDOMINAL AORTA: Difficult to visualize because of overlying bowel gas. IVC: Normal diameter where visualized. IMPRESSION: 1. Gallbladder surgically absent. The CBD is mildly dilated measuring 8 mm. This, however, is probably related to post cholecystectomy status. Correlation with appropriate blood work recommended. 2. No other significant ultrasound findings in the upper abdomen. 3. The abdominal aorta was difficult to visualize due to overlying bowel gas. However, please note that recent CT scan of 03/02/2025 revealed a normal appearing abdominal aorta. DATA REPOSITORY:
[2025-03-13] MEDS: cefTRIAXone 1,000 MG in Normal Saline 50 ML 100 MG IVPB (03:47)
[2025-03-13] MEDS: POTASSIUM CHLORIDE/D5-0.45NACL 1,000 ML 125 MEQ IV ×3 (05:46→18:44)
[2025-03-13 06:28] LABS: Abs Immature Grans 0.03 10^3/uL (0.0-0.06); HCT 36.4 % (36.0-46.0); HGB 11.8 g/dL (11.2-15.7); Immature Grans % 0.4 %; MCH 31.9 pg (27.0-33.0); MCHC 32.4 % (32.0-36.0); MCV 98 fL (80-95); MPV 11.7 fL (8.0-11.0); Platelet Count 393 10^3/uL (130-400); RBC 3.70 10^6/uL (3.93-5.22); RDW 13.9 % (11.7-14.6); RDW-SD 50.5 fL; WBC 7.31 10^3/uL (4.4-10.8)
[2025-03-13] MEDS: Pantoprazole 40 MG TABCR PO (06:39)
[2025-03-13 06:45] LABS: ALT 67 U/L (14-59); AST 107 U/L (15-37); Albumin 2.7 g/dL (3.4-5.0); Alkaline Phosphatase 126 U/L (46-116); Anion Gap 8.8 mmol/L (3-11); BUN 4 mg/dL (7-18); Bilirubin, Total 0.4 mg/dL (0.2-1.0); CO2 24.2 mmol/L (21.0-32.0); Calcium 8.4 mg/dL (8.5-10.1); Chloride 109 mmol/L (98-107); Estimated GFR 88.60 (mL/min/1.73m2); Glucose 93 mg/dL (74-106); Potassium 3.7 mmol/L (3.5-5.1); Sodium 142 mmol/L (136-145); Total Protein 6.4 g/dL (6.4-8.2)
[2025-03-13 07:04] VITALS: BP 118/79; PULSE 73; RESP 16; TEMP 36.9; O2SAT 99
[2025-03-13] MEDS: DULoxetine 30 MG CAP 120 MG PO (07:36)
[2025-03-13] MEDS: Sennosides/Docusate Sodium TAB 1 TAB PO ×2 (07:36→21:23)
[2025-03-13] MEDS: traZODone 100 MG TAB PO (07:37)
[2025-03-13] MEDS: Topiramate 100 MG TAB 200 MG PO ×2 (07:37→21:22)
[2025-03-13] MEDS: Enoxaparin 40 MG/0.4 ML SYR SC (07:38)
[2025-03-13] MEDS: Ondansetron O.D.T. 4 MG TABEF PO (08:12)
[2025-03-13] MEDS: clonazePAM 0.5 MG TAB PO ×2 (08:12→21:35)
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
[2025-03-13] MEDS: Ketorolac 15 MG/ML VIAL IVP ×2 (10:20→17:29)
[2025-03-13 11:26] VITALS: BP 118/78; PULSE 77; RESP 17; TEMP 36.5; O2SAT 96
[2025-03-13] MEDS: oxyCODONE 5 MG TAB PO ×2 (13:59→23:12)
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
--- NOTE | 2025-03-13 14:56 | CHAPLAIN ---
Lisseth was sitting up in bed finishing her lunch when I visited. She shared some personal history, telling me that she's originally from [place] and was in the [employer] so she moved around a lot. Lisseth was pleasant and engaged in a conversation. I explained my role and offered support.
[2025-03-13 15:29] VITALS: BP 116/76; PULSE 83; RESP 17; TEMP 36.4; O2SAT 98
--- NOTE | 2025-03-13 19:09 | W.PM.PROGNOT ---
Date of Service Date of service: 03/13/25 Time of Service: 19:09 Assessment and Plan Assessment and plan (1) Abdominal pain: Status: Acute Assessment and plan: 2+ weeks of abdominal pain with unclear etiology associated with elevation of lactate, though this normalized with hydration. CT A/P 03/12 and 03/02 did not reveal a clear source. . CT does show mild dilation of biliary ducts, but normal on u/s. Improving wiht PPI, likely gastric, continue to monitor. (2) Encephalopathy: Status: Acute Assessment and plan: This started after resuming tramadol and pregabalin at a pretty aggressive initial dose as well as taking THC gummy. CT/CTA head/neck reassuring that no stroke or other intracraneal process. I don't think there is an acute infection, stop antibiotics. Clearing with holding medications. (3) Elevated LFTs: Status: Acute Assessment and plan: As above some dilation of biliary ducts, but mild, normal RUQ u/s 03/13 (4) Bipolar affective disorder: Assessment and plan: had been stable on duloxetine, valproate, olanzapine. Holding valproate with high levels, recheck in am and consider resuming (5) Migraine headache: Status: Chronic Assessment and plan: Chronic migraines, on amiovig and topiramate. No current [facility] and CT head/neck reassuring on admission. Continue topiramate (6) DVT prophylaxis: Status: Acute Assessment and plan: enoxaparin (7) Hip pain: Status: Acute Assessment and plan: c/w lower back source, some sciatica. Hip exam reassuring, work with PT Subjective Subjective Patient reports: tolerating liquids well; denies voiding w/o difficulty, vomiting, shortness of breath or fever Interval history since last seen: Feeling better. Abdominal pain improved, feels epigastric. c/o back pain to hips, which is chronic, but felt worse this morning. Exam Narrative Exam Narrative: GEN: A&O, though doesn't remember yesterday, NAD LUNGS: CTAB with normal effort CV: RRR with no murmurs, gallops, or rubs. ABD: active bowel sounds, soft, slight upigastric tenderness, nondistended. No masses. EXT: no cyanosis, clubbing, or edema MSK: No joint redness or swelling. Nl hip/knee ROM. Back not tender. +SLR right with radiation to calf. Neuro: Nl strength/senstaion, nl coordination. 3+ reflexes at patella left, 2+ right and achilles. no tremor Objective Last Vital Signs Temp 36.4 C L 03/13/25 15:29 Pulse 83 03/13/25 15:29 Resp 17 03/13/25 15:29 BP 116/76 03/13/25 15:29 Pulse Ox 98 03/13/25 15:29 Laboratory Results - last 24 hr 03/13/25 06:11 WBC 7.31 RBC 3.70 L Hgb 11.8 Hct 36.4 MCV 98 H MCH 31.9 MCHC 32.4 RDW 13.9 Plt Count 393 MPV 11.7 H Immature Gran % 0.4 Neutrophils % 44.4 Lymphocytes % 34.9 Monocytes % 5.9 Eosinophils % 12.9 Basophils % 1.5 Nucleated RBC % 0.0 Absolute Neutrophils 3.25 Absolute Lymphocytes 2.55 Absolute Monocytes 0.43 Absolute Eosinophils 0.94 H Absolute Basophils 0.11 Sodium 142 Potassium 3.7 Chloride 109 H Carbon Dioxide 24.2 Anion Gap 8.8 BUN 4 L Creatinine 0.8 Est GFR (CKD-EPI 2020) 88.60 Glucose 93 Calcium 8.4 L Total Bilirubin 0.4 AST 107 H ALT 67 H Alkaline Phosphatase 126 H Total Protein 6.4 Albumin 2.7 L Time Spent with Patient Time Spent with Patient: 35-49 minutes Time was spent: preparing to see the patient(eg.review tests), obtaining and/or reviewing separately otained hiistory, ordering medications,tests, procedures, referring, communicating with other health ambulatory care, indepentently interpreting results, counseling the patient, care coordination and other
[2025-03-13 20:19] VITALS: BP 140/101; PULSE 81; RESP 18; TEMP 36.4; O2SAT 96
[2025-03-13] MEDS: traZODone 100 MG TAB 200 MG PO (21:23)
[2025-03-13] MEDS: OLANZapine ODT 5 MG TAB PO (21:23)
[2025-03-13 23:10] VITALS: BP 115/73; PULSE 75; RESP 18; TEMP 36.7; O2SAT 95
[2025-03-14 04:16] VITALS: BP 145/95; PULSE 76; RESP 18; TEMP 36.4; O2SAT 98
[2025-03-14] MEDS: Pantoprazole 40 MG TABCR PO (06:21)
[2025-03-14] MEDS: Ketorolac 15 MG/ML VIAL IVP (06:28)
[2025-03-14 06:55] LABS: ALT 63 U/L (14-59); AST 76 U/L (15-37); Albumin 2.5 g/dL (3.4-5.0); Alkaline Phosphatase 116 U/L (46-116); Anion Gap 9.0 mmol/L (3-11); BUN 5 mg/dL (7-18); Bilirubin, Total 0.3 mg/dL (0.2-1.0); CO2 23.0 mmol/L (21.0-32.0); Calcium 8.7 mg/dL (8.5-10.1); Chloride 110 mmol/L (98-107); Estimated GFR 67.78 (mL/min/1.73m2); Glucose 102 mg/dL (74-106); Potassium 3.6 mmol/L (3.5-5.1); Sodium 142 mmol/L (136-145); Total Protein 6.0 g/dL (6.4-8.2)
[2025-03-14 07:19] VITALS: BP 120/85; PULSE 78; RESP 14; TEMP 36.5; O2SAT 96
[2025-03-14] MEDS: Cyanocobalamin 500 MCG TAB 1000 MCG PO (08:35)
[2025-03-14] MEDS: Topiramate 100 MG TAB 200 MG PO (08:35)
[2025-03-14] MEDS: Enoxaparin 40 MG/0.4 ML SYR SC (08:35)
[2025-03-14] MEDS: Sennosides/Docusate Sodium TAB 1 TAB PO (08:35)
[2025-03-14] MEDS: DULoxetine 30 MG CAP 120 MG PO (08:35)
[2025-03-14] MEDS: oxyCODONE 5 MG TAB PO (08:35)
[2025-03-14] MEDS: Ondansetron O.D.T. 4 MG TABEF PO (08:49)
[2025-03-14 11:33] VITALS: BP 110/88; PULSE 87; RESP 19; TEMP 36.9; O2SAT 96
[2025-03-14] MEDS: Divalproex Sodium 500 MG TAB.ER.24H PO (11:57)
--- NOTE | 2025-03-14 12:09 | DSE_ITS ---
Date of service: 03/14/25 Time of Service: 12:09 DS: Diagnosis Discharge Diagnosis (1) Abdominal pain: Status: Acute (2) Encephalopathy: Status: Acute (3) Elevated LFTs: Status: Acute (4) Bipolar affective disorder: (5) Migraine headache: Status: Chronic (6) DVT prophylaxis: Status: Acute (7) Hip pain: Status: Acute Discharge Plan Disposition Patient Disposition: Home Condition: Good Discharge Details Reason For Visit: Abdominal Pain, Lactic Acidosis, Encephalopathy Admit Date/Time: 03/12/25 11:02 Admit Provider: Travis Torres Attending Provider: Travis Torres Primary Care Provider: Christopher Knott Hospital Course Hospital Course: 54 yo F with BPAD on valproate and chornic clonezepam, migraines, and alchol use disorder in remission who is presenting with confusion for the past day after 2 weeks of undiagnosed abdominal pain. She had been given tramadol and pregabalin on 03/09 and she also had a THC gummy prior to presentation. Her initial evaluation was significant for sedation and confusion, tremors. Her labs showed lactate of 4.1 and WBC 10.79 and mild elevation of AST/ALT/AP. Valproate was above therapeutic at 114.7. Urinalysis was not c/w UTI. CT/CTA head neck was reassuring. CT A/P was normal except borderline She was initially treated with antibiotics, but lactate normalized with hydration and these were not continued after 03/12. Blood cultures NGTD x 48 hours. Her mental status gradually cleared over the two days of observation. Depakote was held, but was restarted prior to discharge. It was felt her mental status was related to addition of tramadol and moderate dose pregabalin to her other medications. Tremors may be related to seratonin excess with high dose duloxetine as well as trazadone. She was concerned about a seizure. No seizure activity was noted or reported by family. Her abdominal pain did improve. She was given pantoprazole and felt that her pain was gastric related. She had just been started on famotidine, as an outpatient, but this was replaced with PPI as this was working better.She did have significant back and hip pain with some sciatic symptoms on right. She did work with PT and received from IV ketoralac. For both pains she was given some 5mg oxycodone, which she requested at discharge. She was given #6 for severe pain. ENVIRONMENTAL CHANGE ANALYST reviewed, did show hydrocodone #5 from dentist months ago along with tramadol and chronic clonezepam. She was also prescribed celecoxib at discharge to try as with PPI this would be best NSAID given gastritis pain. Given pain and mild liver enzyme elevation abdominal u/s was done which was reassuring, bile ducts normal for post-cholecystectomy. LFTs should be followed with additional evaluation. 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 Her Depakote was resumed at previous doses even though levels were slightly high on admission. This should be followed as it may be the cause of her elevated LFTs. Recommendations for Follow Up Recommended tests to be ordered by follow up provider: CMP, valproic acid levels in 1 week PCP follow up after labs Home Meds and New Rx's Prescriptions: New acetaminophen 325 mg Tablet 650 mg PO Q4H PRN PRNQty: 0 0RF oxycodone 5 mg Tablet 5 mg PO Q6H PRN PRNQty: 6 0RF celecoxib 100 mg capsule 100 mg PO BID Qty: 60 0RF omeprazole 40 mg capsule,delayed release(DR/EC) 40 mg PO DAILY Qty: 30 1RF Continued clonazepam 0.5 mg tablet 0.5 mg PO TID PRN duloxetine 60 mg capsule,delayed release(DR/EC) 60 mg PO DAILY Aimovig Autoinjector 140 mg/mL auto-injector 140 mg SUBCUT .MONTHLY divalproex 500 mg tablet,delayed release (DR/EC) 500 mg PO BID Patient Comments: TAKE 1 TABLET BY MOUTH TWICE DAILY multivitamin [Multiple Vitamins] Tablet 1 tab PO DAILY Qty: 30 0RF albuterol sulfate 90 mcg/actuation HFA aerosol inhaler 2 puff INHALATION Q4H PRN Patient Comments: INHALE 2 PUFFS BY MOUTH EVERY 4 TO 6 HOURS NEEDED FOR WHEEZING topiramate 200 mg tablet 200 mg PO BID Patient Comments: TAKE 1 TABLET BY MOUTH TWICE DAILY trazodone 100 mg tablet 100 mg PO BID Patient Comments: TAKE 1 TABLET BY MOUTH TWICE DAILY sennosides-docusate sodium [Stimulant Laxative Plus] 8.6-50 mg tablet 1 tab-cap PO BID Patient Comments: TAKE 1 TABLET BY MOUTH TWICE DAILY meclizine 25 mg tablet 25 mg PO TID PRN ondansetron 4 mg tablet,disintegrating 4 mg PO Q8H PRNQty: 10 0RF famotidine [Pepcid] 20 mg tablet 20 mg PO BID Qty: 28 0RF olanzapine 5 mg tablet 5 mg PO HS Patient Comments: TAKE 1 TABLET BY MOUTH EVERY DAY AT BEDTIME potassium chloride 10 mEq capsule, extended release 10 meq PO DAILY Patient Comments: TAKE 1 CAPSULE BY MOUTH EVERY DAY Changed pregabalin 75 mg capsule 25 mg PO BID Qty: 60 0RF Patient Comments: TAKE 1 CAPSULE BY MOUTH TWICE DAILY Discontinued tramadol 50 mg tablet 50 mg PO BID PRN (Reason: pain) Qty: 10 0RF Discharge Instructions Additional Instructions: stop the 75mg pregabalin (Lyrica) and the tramadol. You can use the 25mg pregabalin, but stop if you don't feel well you should avoid tramadol in the future try the celecoxib (Celebrex) for pain Activity:: Activity as Tolerated Equipment/Supplies:: No Equipment Needed Diet:: As Tolerated Discharge Orders Discharge Orders: Discharge Order (Routine); Ordered 03/14/25 Ordered By: Travis Torres DS: Summary Time Spent with Patient providing and/or coordinating discharge services: Greater than 30 minutes Status at Discharge Functional status at discharge: independent ambulation Overall status at discharge: patient is back to baseline Mental Status: mental status grossly normal Speech and Movement: speech and movement normal Mood: congruent mood Affect: normal affect Exam Narrative Exam Narrative: GEN: More alert and oriented x 4, poor memory of admission but clear memory since yesterday and of remote events, NAD LUNGS: CTAB with normal effort CV: RRR with no murmurs, gallops, or rubs. ABD: active bowel sounds, soft, minimal epigastric tenderness, nondistended. No masses. EXT: no cyanosis, clubbing, or edema MSK: No joint redness or swelling. Neuro: Nl strength/senstaion, nl coordination. no tremor. AFfect bright and speech fluent and clear. Psych Mental Status: mental status grossly normal Speech and Movement: speech and movement normal Mood: congruent mood Affect: normal affect DS: Data Vitals/I&O Vitals and I&O: Vital Signs Temperature 36.9 C 03/14/25 11:33 Temperature Source Temporal Artery Scan 03/14/25 11:33 Pulse 87 03/14/25 11:33 Pulse Rhythm Regular 03/12/25 12:22 Pulse 91 H 03/12/25 11:47 Respiratory Rate 19 03/14/25 11:33 Respiratory Effort Normal 03/12/25 12:22 Respiratory Depth Normal 03/12/25 12:22 Respiratory Pattern Normal 03/12/25 12:22 Blood Pressure 110/88 03/14/25 11:33 Blood Pressure Mean 95 03/14/25 11:33 Pulse Oximetry 96 03/14/25 11:33 Oxygen Delivery Method Room Air 03/14/25 11:33 Oxygen Flow Rate 0 03/14/25 11:33 Pain Level 7 03/14/25 08:35 Comment pt refused vitals 03/13/25 03:16 Intake & Output 03/13/25 03/14/25 03/14/25 23:59 11:59 23:59 Intake Total 1762.501 / 2812.501 400 / 400 Output Total 0 / 500 0 / 0 Balance 1762.501 / 2312.501 400 / 400 Intake: IV 1762.501 / 2812.501 Oral 400 / 400 Output: Urine 0 / 500 0 / 0 Other: Urine Color Yellow Yellow Urine Appearance Clear Clear Comment unmeasured pt has voided independently. Data Completed and Pending Labs on day of discharge: Labs from last 24 hours 03/14/25 05:30 Sodium 142 Potassium 3.6 Chloride 110 H Carbon Dioxide 23.0 Anion Gap 9.0 BUN 5 L Creatinine 1.0 Est GFR (CKD-EPI 2020) 67.78 Glucose 102 Calcium 8.7 Total Bilirubin 0.3 AST 76 H ALT 63 H Alkaline Phosphatase 116 Total Protein 6.0 L Albumin 2.5 L Valproic Acid 11.2 Preliminary micro results at discharge 03/12/25 09:27 Blood Blood Culture - Preliminary NO GROWTH 48 HOURS 03/12/25 08:25 Blood Blood Culture - Preliminary NO GROWTH 24 HOURS PFSH All Active Problems (Updated 03/13/25 @ 21:36 by Travis Torres) Hip pain (Acute) DVT prophylaxis (Acute) Sepsis (Acute) Encephalopathy (Acute) Elevated LFTs (Acute) Nausea (Acute) Abdominal pain (Acute) Nausea vomiting and diarrhea (Acute) UTI (urinary tract infection) (Acute) Acute hypokalemia (Acute) Well woman exam with routine gynecological exam (Acute) Screening for cervical cancer (Acute) Family history of colon cancer (Acute) Post-menopausal bleeding (Acute) Anxiety (Chronic) Folate deficiency (Acute) B12 deficiency (Acute) Depression (Chronic) Migraine headache (Chronic) Hyponatremia (Acute) Distal radius fracture, left (Acute 10/15/22) Right ankle sprain (Acute) Medical History Bipolar affective disorder Alcohol abuse GERD (gastroesophageal reflux disease) HTN (hypertension) Surgical History S/P bilateral oophorectomy benign disease, 09/2009 [facility] [place] S/P cholecystectomy S/P tubal ligation converted to open Family History Mother Aortic aneurysm rupture Breast cancer Social History Smoking/Tobacco Use Status: Former Tobacco Use Smoking risk assessment performed?: Yes Alcohol Intake: former Drug use: Occasionally Substance use type: marijuana Housing: house Do you feel safe at home: Yes Do you feel safe in your relationship?: Yes Additional Social history: Grew up in [place], [employer]. Lives in [place]. Son and sister are supports Time Spent with Patient Time Spent with Patient: <45 minutes Time was spent: preparing to see the patient(eg.review tests), obtaining and/or reviewing separately otained hiistory, ordering medications,tests, procedures, referring, communicating with other health human services care specialist, indepentently interpreting results, counseling the patient and care coordination
--- NOTE | 2025-03-14 12:57 | PDOC.CMDIS ---
Date of service: 03/14/25 Time of Service: 12:58 LACE Index Scoring Tool Questions: Length of Stay (in days): 2 Was the patient admitted via the E.D.?: Yes Comorbidities: Liver or Renal Disease E.D. Visits: 4 Answers: Total Score: 14 Risk of Readmission: High Risk Care Management Discharge Plan Reason for Hospitalization: abdominal and back pain Discharge Plan: Lisseth will be discharged home likely with new home health services for PT. She will follow up with her PCP and plan of care and transport with family. Patient/Family Education Needs: Review discharge instructions, discuss Ask Me Three Services Needed at Discharge: Home Health Care Services
--- NOTE | 2025-03-14 13:21 | PDOC.HHF2F_ITS ---
Home Health Referral Home Health Orders Clinical synopsis of why skilled professionals are needed: 54 yo F with BPAD on valproate and chornic clonezepam, migraines, and alchol use disorder in remission who is presenting with confusion for the past day after 2 weeks of undiagnosed abdominal pain. She had been given tramadol and pregabalin on 03/09 and she also had a THC gummy prior to presentation. Her initial evaluation was significant for sedation and confusion, tremors. Her labs showed lactate of 4.1 and WBC 10.79 and mild elevation of AST/ALT/AP. Valproate was above therapeutic at 114.7. Urinalysis was not c/w UTI. CT/CTA head neck was reassuring. CT A/P was normal except borderline She was initially treated with antibiotics, but lactate normalized with hydration and these were not continued after 03/12. Blood cultures NGTD x 48 hours. Her mental status gradually cleared over the two days of observation. Depakote was held, but was restarted prior to discharge. It was felt her mental status was related to addition of tramadol and moderate dose pregabalin to her other medications. Tremors may be related to seratonin excess with high dose duloxetine as well as trazadone. She was concerned about a seizure. No seizure activity was noted or reported by family. Her abdominal pain did improve. She was given pantoprazole and felt that her pain was gastric related. She had just been started on famotidine, as an outpatient, but this was replaced with PPI as this was working better.She did have significant back and hip pain with some sciatic symptoms on right. She did work with PT and received from IV ketoralac. For both pains she was given some 5mg oxycodone, which she requested at discharge. She was given #6 for severe pain. TECHNICAL DIRECTOR reviewed, did show hydrocodone #5 from dentist months ago along with tramadol and chronic clonezepam. She was also prescribed celecoxib at discharge to try as with PPI this would be best NSAID given gastritis pain. PT recommended home health PT Given pain and mild liver enzyme elevation abdominal u/s was done which was reassuring, bile ducts normal for post-cholecystectomy. LFTs should be followed with additional evaluation. 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 Her Depakote was resumed at previous doses even though levels were slightly high on admission. This should be followed as it may be the cause of her elevated LFTs. Medical diagnosis necessitation home health referral: back/hip pain, bipolar, seizure disordere Registered Nurse: Check all that apply Instruct on new or changed medication(s)/assess compliance: Ordered Assess for exacerbation of medical condition, instruct patient/caregivers on signs and symptoms to report for early detection: Ordered Physical Therapist: Check all that apply Increase strength & endurance for safe mobility at home: Ordered To design/establish home maintenance program: Ordered Home safety evaluation and teaching/gait training including stair management (if applicable): Ordered Home Bound Status Requires the aid of supportive device (check all that apply): Walker Describe why leaving home would require a considerable and taxing effort: Side effects from pain medication (sedation/drowsiness) Encounter Date and Reason: I certify that a FTF encounter for this patient was performed on March 14, 2025 and that such encounter was related to the primary reason the patient requires home health services. The encounter was conducted in the following manner: * By me as the certifying physician, PROFESSOR OF PHYSICS, PA or * By an inpatient physician, PROFESSOR OF PHYSICS or PA during an inpatient stay who communicated findings to me, Certification And Authentication I certify that I composed the above information based on my clinical judgment relating to this patient's medical condition and, if applicable, clinical findings communicated to me by the NPP or inpatient physician who performed the FTF encounter. Name of Provider that will be monitoring home health services: Christopher Knott
--- NOTE | 2025-03-14 16:35 | PT.INTREAT ---
PT Notes Visit Reasons: Abdominal Pain, Lactic Acidosis, Encephalopathy Inpatient Physical Therapy Treatment Note [facility] Date:03/14/2025 PRECAUTIONS: Seizures SUBJECTIVE: Pt reports she feels much better, Her pain is not as bad and she is going home this afternoon OBJECTIVE:Pt seated at the edge of her bed? PAIN: 2/10 VITALS: ?Monitored via nursing Therapeutic Activities ([id number]): Direct one-on-one instruction in dynamic activities to improve functional performance. ? BED MOBILITY/TRANSFERS? Rolling L/R: Independent Supine-sit: Independent? Sit-supine: Independent ? Sit-stand: Independent? Stand-sit: Independent ? Bed-Chair:Independent without device? Chair-bed: Independent without device - Facilitated ambulation without AD supervision 100 feet including turns and obstacle management.without LOB or increase in pain. Pt perform short distance in room ambulation independently Dynamic balance tasks in stand for self care including iem retrieval clothing management without LOB or increase pain. ASSESSMENT:?Pt with significant improvement in functional ability to ambulate now without a device, perform transfers and bed mobility without pain. Pt required intermittent cues for task completion likely related to prior TBI. PLAN: HHPT TREATMENT CODE/TIME:62899/ [id number] DISCHARGE RECOMMENDATION: Home with HHPT
== END 2025-03-14 13:05 | disposition home or self-care (01) ==
LOC: ER 12:18 → MS 03-13 07:07
PROVIDERS: Admitting Provider Family Medicine; Emergency Provider Physician Assistant; PCP Student in an Organized Health Care Education/Training Program; Responsible Provider Family Medicine; Visit Provider Family Medicine
DX: R10.9 Unspecified abdominal pain (principal); G92.8 Other toxic encephalopathy; E87.20 Acidosis, unspecified; J98.11 Atelectasis; M54.41 Lumbago with sciatica, right side; I10 Essential (primary) hypertension; M25.551 Pain in right hip; F31.9 Bipolar disorder, unspecified; R79.89 Other specified abnormal findings of blood chemistry; F41.9 Anxiety disorder, unspecified; E87.1 Hypo-osmolality and hyponatremia; E87.6 Hypokalemia; K21.9 Gastro-esophageal reflux disease without esophagitis; F10.11 Alcohol abuse, in remission; E53.8 Deficiency of other specified B group vitamins; F12.90 Cannabis use, unspecified, uncomplicated; Z80.0 Family history of malignant neoplasm of digestive organs; Z79.899 Other long term (current) drug therapy; T40.425A Adverse effect of tramadol, initial encounter; T50.995A Adverse effect of other drugs, medicaments and biological substances, initial encounter
CPT/HCPCS: 00123; 36415; 36416; 70496; 70498; 80053; 80307; 82805; 82962; 83690; 87040; 96361; 96365; 96367; 96368; 96372; 96375; 96376; 97162; 97530; 99285; J1650; 74177; 76700; 80164; 80320; 80329; 81003; 81015; 82140; 83605; 83735; 84443; 84484; 85025; 99222; 99232; 99239; G0378; J0131; J0692; J0696; J1836; J1885; J2470; J3490

== ENCOUNTER 2025-03-18 17:19 | Emergency (ER) | payer OTHER, SELFPAY ==
[2025-03-18] VITALS (21 sets, daily range): BP systolic 137–167; BP diastolic 81–114; PULSE 103–150; RESP 14–28; TEMP 36.8–37.5; O2SAT 97–99
--- NOTE | 2025-03-18 17:30 | RT.EKG_ITS ---
APPROVED REPORT Exam: Resting ECG Reason for Exam: rapid heart rate Patient Location: E HR:127 bpm ECG Measurements Heart Rate 127 AXIS SD 130 P 27 QRSd 85 QRS -5 QT 303 T -5 QTc 441 Conclusion Sinus tachycardia at a rate of 127 without acute ischemic change
--- NOTE | 2025-03-18 18:03 | W.ED.GENAD ---
Discharge Plan Disposition Patient Disposition: Home Condition: Stable Discharge Details Clinical Impression: Confusion state Primary Care Provider: Christopher Knott ED Provider: Sue Hilario Home Meds and New Rx's Prescriptions: No Action clonazepam 0.5 mg tablet 0.5 mg PO TID PRN duloxetine 60 mg capsule,delayed release(DR/EC) 60 mg PO DAILY Aimovig Autoinjector 140 mg/mL auto-injector 140 mg SUBCUT .MONTHLY divalproex 500 mg tablet,delayed release (DR/EC) 500 mg PO BID Patient Comments: TAKE 1 TABLET BY MOUTH TWICE DAILY multivitamin [Multiple Vitamins] Tablet 1 tab PO DAILY Qty: 30 0RF albuterol sulfate 90 mcg/actuation HFA aerosol inhaler 2 puff INHALATION Q4H PRN Patient Comments: INHALE 2 PUFFS BY MOUTH EVERY 4 TO 6 HOURS NEEDED FOR WHEEZING topiramate 200 mg tablet 200 mg PO BID Patient Comments: TAKE 1 TABLET BY MOUTH TWICE DAILY trazodone 100 mg tablet 100 mg PO BID Patient Comments: TAKE 1 TABLET BY MOUTH TWICE DAILY sennosides-docusate sodium [Stimulant Laxative Plus] 8.6-50 mg tablet 1 tab-cap PO BID Patient Comments: TAKE 1 TABLET BY MOUTH TWICE DAILY meclizine 25 mg tablet 25 mg PO TID PRN ondansetron 4 mg tablet,disintegrating 4 mg PO Q8H PRNQty: 10 0RF famotidine [Pepcid] 20 mg tablet 20 mg PO BID Qty: 28 0RF olanzapine 5 mg tablet 5 mg PO HS Patient Comments: TAKE 1 TABLET BY MOUTH EVERY DAY AT BEDTIME potassium chloride 10 mEq capsule, extended release 10 meq PO DAILY Patient Comments: TAKE 1 CAPSULE BY MOUTH EVERY DAY acetaminophen 325 mg Tablet 650 mg PO Q4H PRN PRNQty: 0 0RF oxycodone 5 mg Tablet 5 mg PO Q6H PRN PRNQty: 6 0RF pregabalin 75 mg capsule 25 mg PO BID Qty: 60 0RF Patient Comments: TAKE 1 CAPSULE BY MOUTH TWICE DAILY celecoxib 100 mg capsule 100 mg PO BID Qty: 60 0RF omeprazole 40 mg capsule,delayed release(DR/EC) 40 mg PO DAILY Qty: 30 1RF Discharge Instructions Instructions: Delirium (confusion) Additional Instructions: Please do not miss your mother's PCP appointment this Wednesday. Please closely monitor her medication intake in the meantime and have a low threshold to bring her back to the Emergency Department for re-evaluation with any other concerns or any worsening symptoms. HPI General Date/Time Provider Initiated Documentation: 03/18/25 17:30. HPI Narrative: The patient is a 54-year-old female with a recent hospitalization for abdominal pain without acute finding returns to the Emergency Department for confusion. History if obtained from the patient and her son. Reports that he was confused from day of discharge, forgetting things but on and off up until this morning. Reports the patient has been confused all day, forgetting things and not making sense. Reports that the patient lives with family. Reports they have no concerns for falls or injury. Reports she hasn't had anything to eat today but was drinking liquids. Reports she's not on any blood thinning medication. Patient denies headache or neck pain. Denies new or worsening chest pain or shortness of breath. Denies fever or chills. Reports continued abdominal pain ongoing for a month now. Denies urinary symptoms. Initially, the patient thought she was being detained and in custody and was asking to speak with an employee benefits attorney but her son was able to redirect her. Related Data Home Medications ?Medication ?Instructions ?Recorded ?Confirmed clonazepam 0.5 mg tablet 0.5 mg PO TID PRN 09/22/21 03/18/25 duloxetine 60 mg capsule,delayed 60 mg PO DAILY 09/22/21 03/18/25 release erenumab-aooe 140 mg/mL 140 mg subcut .MONTHLY 10/15/22 03/18/25 subcutaneous auto-injector (Aimovig Autoinjector) divalproex 500 mg tablet,delayed 500 mg PO BID 08/06/23 03/18/25 release multivitamin (Multiple Vitamins 1 tab PO DAILY #30 tabs 08/08/23 03/18/25 tablet) albuterol sulfate 90 mcg/actuation 2 puff inhalation Q4H PRN 03/02/25 03/18/25 aerosol inhaler famotidine 20 mg tablet (Pepcid) 20 mg PO BID #28 tabs 03/02/25 03/18/25 meclizine 25 mg tablet 25 mg PO TID PRN 03/02/25 03/18/25 ondansetron 4 mg disintegrating 4 mg PO Q8H PRN #10 tabs 03/02/25 03/18/25 tablet sennosides 8.6 mg-docusate sodium 1 tab-cap PO BID 03/02/25 03/18/25 50 mg tablet (Stimulant Laxative Plus) topiramate 200 mg tablet 200 mg PO BID 03/02/25 03/18/25 trazodone 100 mg tablet 100 mg PO BID 03/02/25 03/18/25 olanzapine 5 mg tablet 5 mg PO HS 03/12/25 03/18/25 potassium chloride 10 mEq 10 meq PO DAILY 03/12/25 03/18/25 capsule,extended release acetaminophen 325 mg tablet 650 mg (2 x 325 mg) PO Q4H PRN PRN 03/14/25 03/18/25 #0 tabs celecoxib 100 mg capsule 100 mg PO BID #60 caps 03/14/25 03/18/25 omeprazole 40 mg capsule,delayed 40 mg PO DAILY #30 caps 03/14/25 03/18/25 release oxycodone 5 mg tablet 5 mg PO Q6H PRN PRN #6 tabs 03/14/25 03/18/25 pregabalin 75 mg capsule 25 mg (0.3333 x 75 mg) PO BID #60 03/14/25 03/18/25 caps Previous Rx's ?Medication ?Instructions ?Recorded multivitamin (Multiple Vitamins 1 tab PO DAILY #30 tabs 08/08/23 tablet) famotidine 20 mg tablet (Pepcid) 20 mg PO BID #28 tabs 03/02/25 ondansetron 4 mg disintegrating 4 mg PO Q8H PRN #10 tabs 03/02/25 tablet acetaminophen 325 mg tablet 650 mg (2 x 325 mg) PO Q4H PRN PRN 03/14/25 #0 tabs celecoxib 100 mg capsule 100 mg PO BID #60 caps 03/14/25 omeprazole 40 mg capsule,delayed 40 mg PO DAILY #30 caps 03/14/25 release oxycodone 5 mg tablet 5 mg PO Q6H PRN PRN #6 tabs 03/14/25 pregabalin 75 mg capsule 25 mg (0.3333 x 75 mg) PO BID #60 03/14/25 caps Allergies Allergy/AdvReac Type Severity Reaction Status Date / Time No Known Allergies Allergy Verified 03/18/25 17:24 General Stated Complaint: AMS/LOC MAIA: 2 Review of Systems Narrative: Review of systems are negative except as mentioned. Exam Narrative Exam Narrative: General appearance: The patient is alert, has no immediate need for airway protection and no signs of toxicity. HEENT: Pupils are round, equal and reactive. Oral mucosal membranes are moist. Neck: Supple, non-tender. Respiratory: There are no retractions. Lungs are clear to auscultation. Cardiovascular: She is tachycardic but regular. Radial pulses are intact and equal. Gastrointestinal: The abdomen is soft and nondistended with normal bowel sounds. Nontender to palpation throughout. Neurological: The patient is alert, awake and oriented x 2. Musculoskeletal strength is intact and equal to bilateral upper and lower extremities. Sensation is intact and equal to bilateral upper and lower extremities. Speech is clear. No facial asymmetry is appreciated. Cranial nerves II to XII motor function are intact and equal. No pronator drift noted. NIH stroke scale score is 0 at 1550. No truncal ataxia is noted. Skin: Warm and dry. Back: No CVA tenderness is noted to palpation bilaterally. Extremities: No lower extremity edema or calf tenderness is noted to palpation bilaterally. Course Vital Signs Vital signs: Vital Signs Temperature 36.8 C 03/18/25 17:22 Pulse 141 H 03/18/25 17:22 Respiratory Rate 18 03/18/25 17:22 Blood Pressure 154/110 H 03/18/25 17:22 Pulse Oximetry 97 03/18/25 17:22 Temperature 37.5 C 03/18/25 17:40 Temperature Source Core 03/18/25 17:40 Pulse 141 H 03/18/25 17:24 Respiratory Rate 18 03/18/25 17:24 Respiratory Effort Normal 03/18/25 17:36 Respiratory Depth Normal 03/18/25 17:36 Respiratory Pattern Normal 03/18/25 17:36 Blood Pressure 154/110 H 03/18/25 17:24 Pulse Oximetry 97 03/18/25 17:24 Medical Decision Making The patient has no focal deficit on exam. She is tachycardic but physical exam is otherwise benign. I told the patient's son of plan for repeat blood work today and urinalysis. I have ordered IV fluid also. I did review her recent hospitalization note through [facility]. The patient had episodes of encephalopathy in the hospital, had CT head with was benign. Encephalopathy was thought to be due to tramadol and Lyrica and THC. I spoke with her son regarding this. Reports that the patient resumed a smaller dose of Lyrica on and had confusion but has since not taken this at all. He is unsure if the patient has been taking her tramadol but patient herself admits to continued THC use. I have reevaluated the patient. She has not had a recurrent episode of confusion. Blood work is back and it is reassuring. Urine is negative for infectious process. Her heart rate has improved with IV with PO fluids. Urine tox shows THC which is baseline for the patient according to her and her son. Alcohol level is benign. In the meantime, she continue to not have any specific complaints. I have updated the patient and her son regarding work-up result. He does report that she does seem somewhat imrpved. He wants to finish the rest of the IV fluid and wants to take her back home. Informs me that she has an appointment with her PCP this Wednesday. The patient is to be discharged shortly. They are asked not to miss her PCP appointment this Wednesday and urged to return to the Emergency Department immediately for reevaluation. ECG Data Attestation: I personally reviewed and interpreted this ECG (s) as follows: (Sinus tachycardia at a rate of 127 without acute ischemic change) PFSH All Active Problems (Updated 03/18/25 @ 20:19 by Sue Hilario DO) Confusion state (Acute) Hip pain (Acute) Sepsis (Acute) Elevated LFTs (Acute) Nausea (Acute) Abdominal pain (Acute) Nausea vomiting and diarrhea (Acute) UTI (urinary tract infection) (Acute) Acute hypokalemia (Acute) Well woman exam with routine gynecological exam (Acute) Screening for cervical cancer (Acute) Family history of colon cancer (Acute) Post-menopausal bleeding (Acute) Anxiety (Chronic) Folate deficiency (Acute) B12 deficiency (Acute) Depression (Chronic) Hyponatremia (Acute) Distal radius fracture, left (Acute 10/15/22) Right ankle sprain (Acute) Medical History Bipolar affective disorder Alcohol abuse GERD (gastroesophageal reflux disease) HTN (hypertension) Surgical History S/P bilateral oophorectomy benign disease, 09/[address] [facility] [place] S/P cholecystectomy S/P tubal ligation converted to open Family History Mother Aortic aneurysm rupture Breast cancer Social History Smoking/Tobacco Use Status: Former Tobacco Use Smoking risk assessment performed?: Yes Alcohol Intake: former Drug use: Occasionally Substance use type: marijuana Housing: house Do you feel safe at home: Yes Do you feel safe in your relationship?: Yes Additional Social history: Grew up in [place], former [employer]. Lives in [place]. Son and sister are supports
[2025-03-18 18:14] LABS: Abs Immature Grans 0.11 10^3/uL (0.0-0.06); HCT 35.5 % (36.0-46.0); HGB 12.0 g/dL (11.2-15.7); Immature Grans % 1.0 %; MCH 31.9 pg (27.0-33.0); MCHC 33.8 % (32.0-36.0); MCV 94 fL (80-95); MPV 11.8 fL (8.0-11.0); Platelet Count 354 10^3/uL (130-400); RBC 3.76 10^6/uL (3.93-5.22); RDW 14.2 % (11.7-14.6); RDW-SD 48.7 fL; WBC 11.18 10^3/uL (4.4-10.8)
[2025-03-18] MEDS: Normal Saline 1,000 ML 1000 ML IV (18:17)
[2025-03-18 18:32] LABS: ALT 61 U/L (14-59); AST 46 U/L (15-37); Albumin 3.7 g/dL (3.4-5.0); Alkaline Phosphatase 145 U/L (46-116); Anion Gap 12.2 mmol/L (3-11); BUN 6 mg/dL (7-18); Bilirubin, Total 0.4 mg/dL (0.2-1.0); CO2 23.8 mmol/L (21.0-32.0); Calcium 9.4 mg/dL (8.5-10.1); Chloride 105 mmol/L (98-107); Estimated GFR 88.60 (mL/min/1.73m2); Glucose 93 mg/dL (74-106); Potassium 3.3 mmol/L (3.5-5.1); Sodium 141 mmol/L (136-145); Total Protein 7.9 g/dL (6.4-8.2)
[2025-03-18 19:22] LABS: Glucose Negative (Negative)
[2025-03-18 19:26] LABS: Cannabinoids THC Positive (Negative); METHADONE URINE SCREEN Negative (Negative)
[2025-03-18 19:48] LABS: C & S Indicated? No; RBC Negative HPF (0-2); WBC 0-2 HPF (0-5)
== END 2025-03-18 20:57 | disposition home or self-care (01) ==
PROVIDERS: Emergency Provider Emergency Medicine; PCP Student in an Organized Health Care Education/Training Program
DX: R41.82 Altered mental status, unspecified (principal)
CPT/HCPCS: 80053; 80307; 93005; 96360; 99284; 80320; 81003; 81015; 85025; 93010; 99283

== ENCOUNTER 2025-03-19 14:04 | Emergency (ER) | payer OTHER, SELFPAY ==
[2025-03-19 14:05] VITALS: BP 147/108; RESP 16
[2025-03-19 15:31] VITALS: BP 166/103; PULSE 116; RESP 18; O2SAT 100
--- NOTE | 2025-03-19 15:45 | RT.EKG_ITS ---
APPROVED REPORT Exam: Resting ECG Reason for Exam: confusion Patient Location: E HR:82 bpm ECG Measurements Heart Rate 82 AXIS OR 125 P 45 QRSd 86 QRS 48 QT 348 T 20 QTc 406 Conclusion Sinus rhythm at a rate of 82 without acute ischemic change with normal intervals
--- NOTE | 2025-03-19 15:55 | W.ED.GENAD ---
Discharge Plan Disposition Patient Disposition: Eloped Condition: Stable Discharge Details Clinical Impression: Hallucination Primary Care Provider: Christopher Knott ED Provider: Sue Hilario Home Meds and New Rx's Prescriptions: No Action clonazepam 0.5 mg tablet 0.5 mg PO TID PRN duloxetine 60 mg capsule,delayed release(DR/EC) 60 mg PO DAILY Aimovig Autoinjector 140 mg/mL auto-injector 140 mg SUBCUT .MONTHLY divalproex 500 mg tablet,delayed release (DR/EC) 500 mg PO BID Patient Comments: TAKE 1 TABLET BY MOUTH TWICE DAILY multivitamin [Multiple Vitamins] Tablet 1 tab PO DAILY Qty: 30 0RF albuterol sulfate 90 mcg/actuation HFA aerosol inhaler 2 puff INHALATION Q4H PRN Patient Comments: INHALE 2 PUFFS BY MOUTH EVERY 4 TO 6 HOURS NEEDED FOR WHEEZING topiramate 200 mg tablet 200 mg PO BID Patient Comments: TAKE 1 TABLET BY MOUTH TWICE DAILY trazodone 100 mg tablet 100 mg PO BID Patient Comments: TAKE 1 TABLET BY MOUTH TWICE DAILY sennosides-docusate sodium [Stimulant Laxative Plus] 8.6-50 mg tablet 1 tab-cap PO BID Patient Comments: TAKE 1 TABLET BY MOUTH TWICE DAILY meclizine 25 mg tablet 25 mg PO TID PRN ondansetron 4 mg tablet,disintegrating 4 mg PO Q8H PRNQty: 10 0RF famotidine [Pepcid] 20 mg tablet 20 mg PO BID Qty: 28 0RF olanzapine 5 mg tablet 5 mg PO HS Patient Comments: TAKE 1 TABLET BY MOUTH EVERY DAY AT BEDTIME potassium chloride 10 mEq capsule, extended release 10 meq PO DAILY Patient Comments: TAKE 1 CAPSULE BY MOUTH EVERY DAY acetaminophen 325 mg Tablet 650 mg PO Q4H PRN PRNQty: 0 0RF oxycodone 5 mg Tablet 5 mg PO Q6H PRN PRNQty: 6 0RF pregabalin 75 mg capsule 25 mg PO BID Qty: 60 0RF Patient Comments: TAKE 1 CAPSULE BY MOUTH TWICE DAILY celecoxib 100 mg capsule 100 mg PO BID Qty: 60 0RF omeprazole 40 mg capsule,delayed release(DR/EC) 40 mg PO DAILY Qty: 30 1RF HPI General Date/Time Provider Initiated Documentation: 03/19/25 14:21. HPI Narrative: The patient is a 54-year-old female with recent hospitalization for abdominal pain and confusion who returns to the emergency with confusion. History is obtained from the patient and her son. In the send the confusion is new from her recent hospitalization. Reports that she will have episodes where she is agitated and can sometimes be aggressive and will resolve spontaneously. The patient reports that sometimes she remembers these episodes and sometimes not. Reports the patient has never had similar type problems in the past. Reports she has had no recent injury or trauma. Patient reports that she continues to have abdominal pain but states this is unchanged. Denies any fever at home. Denies any cough, chest pain or shortness of breath. Denies nausea or vomiting or changes in bowel habits. Denies urinary symptoms. The patient's son reports that the patient seems to be acting at baseline now but states that while they were in the waiting room the patient was confused then. The patient was evaluated in this emergency department yesterday and the patient and her son elected to go home but agitation was worse last night. Reports that last night the patient was running away from the patient and went upstairs threatening to get a gun to shoot the patient but reports that they do not have any guns at home. The patient does not recall this episode. Patient is denying any thoughts of hurting herself or any other people. Related Data Home Medications ?Medication ?Instructions ?Recorded ?Confirmed clonazepam 0.5 mg tablet 0.5 mg PO TID PRN 09/22/21 03/19/25 duloxetine 60 mg capsule,delayed 60 mg PO DAILY 09/22/21 03/19/25 release erenumab-aooe 140 mg/mL 140 mg subcut .MONTHLY 10/15/22 03/19/25 subcutaneous auto-injector (Aimovig Autoinjector) divalproex 500 mg tablet,delayed 500 mg PO BID 08/06/23 03/19/25 release multivitamin (Multiple Vitamins 1 tab PO DAILY #30 tabs 08/08/23 03/19/25 tablet) albuterol sulfate 90 mcg/actuation 2 puff inhalation Q4H PRN 03/02/25 03/19/25 aerosol inhaler famotidine 20 mg tablet (Pepcid) 20 mg PO BID #28 tabs 03/02/25 03/19/25 meclizine 25 mg tablet 25 mg PO TID PRN 03/02/25 03/19/25 ondansetron 4 mg disintegrating 4 mg PO Q8H PRN #10 tabs 03/02/25 03/19/25 tablet sennosides 8.6 mg-docusate sodium 1 tab-cap PO BID 03/02/25 03/19/25 50 mg tablet (Stimulant Laxative Plus) topiramate 200 mg tablet 200 mg PO BID 03/02/25 03/19/25 trazodone 100 mg tablet 100 mg PO BID 03/02/25 03/19/25 olanzapine 5 mg tablet 5 mg PO HS 03/12/25 03/19/25 potassium chloride 10 mEq 10 meq PO DAILY 03/12/25 03/19/25 capsule,extended release acetaminophen 325 mg tablet 650 mg (2 x 325 mg) PO Q4H PRN PRN 03/14/25 03/19/25 #0 tabs celecoxib 100 mg capsule 100 mg PO BID #60 caps 03/14/25 03/19/25 omeprazole 40 mg capsule,delayed 40 mg PO DAILY #30 caps 03/14/25 03/19/25 release oxycodone 5 mg tablet 5 mg PO Q6H PRN PRN #6 tabs 03/14/25 03/19/25 pregabalin 75 mg capsule 25 mg (0.3333 x 75 mg) PO BID #60 03/14/25 03/19/25 caps Previous Rx's ?Medication ?Instructions ?Recorded multivitamin (Multiple Vitamins 1 tab PO DAILY #30 tabs 08/08/23 tablet) famotidine 20 mg tablet (Pepcid) 20 mg PO BID #28 tabs 03/02/25 ondansetron 4 mg disintegrating 4 mg PO Q8H PRN #10 tabs 03/02/25 tablet acetaminophen 325 mg tablet 650 mg (2 x 325 mg) PO Q4H PRN PRN 03/14/25 #0 tabs celecoxib 100 mg capsule 100 mg PO BID #60 caps 03/14/25 omeprazole 40 mg capsule,delayed 40 mg PO DAILY #30 caps 03/14/25 release oxycodone 5 mg tablet 5 mg PO Q6H PRN PRN #6 tabs 03/14/25 pregabalin 75 mg capsule 25 mg (0.3333 x 75 mg) PO BID #60 03/14/25 caps Allergies Allergy/AdvReac Type Severity Reaction Status Date / Time No Known Allergies Allergy Verified 03/19/25 14:11 General Stated Complaint: GenMedical MAIA: 2 Review of Systems Narrative: Review of systems are negative except as mentioned. Exam Narrative Exam Narrative: General appearance: The patient is alert, has no immediate need for airway protection and no signs of toxicity. HEENT: Pupils are round, equal and reactive. Oral mucosal membranes are moist. Neck: Supple, non-tender. No midline C-spine tenderness with palpation. Respiratory: There are no retractions. Lungs are clear to auscultation. Cardiovascular: Regular in rate and rhythm. Radial pulses are intact and equal. Gastrointestinal: The abdomen is soft and nondistended with normal bowel sounds. Nontender to palpation throughout. Neurological: The patient is alert, awake and oriented x 3. Musculoskeletal strength is intact and equal to bilateral upper and lower extremities. Sensation is intact and equal to bilateral upper and lower extremities. Speech is clear. No facial asymmetry is appreciated. No limb ataxia is appreciated. Cranial nerves II to XII motor function are intact and equal. No pronator drift noted. NIH stroke scale score is 0 at 1545. No truncal ataxia is noted. Skin: Warm and dry. Back: No CVA tenderness is noted to palpation bilaterally. No midline lumbar or thoracic spine tenderness is noted to palpation. Extremities: No lower extremity edema or calf tenderness is noted to palpation bilaterally. No tenderness is noted palpation and range of motion testing to bilateral upper and lower extremities. Course Vital Signs Vital signs: Vital Signs Respiratory Rate 16 03/19/25 14:05 Blood Pressure 147/108 H 03/19/25 14:05 Pulse 116 H 03/19/25 15:31 Respiratory Rate 18 03/19/25 15:31 Blood Pressure 166/103 H 03/19/25 15:31 Blood Pressure Mean 124 03/19/25 15:31 Blood Pressure Position Sitting 03/19/25 14:05 Pulse Oximetry 100 03/19/25 15:31 Oxygen Delivery Method Room Air 03/19/25 14:05 Oxygen Flow Rate 0 03/19/25 14:05 Pain Level 7 03/19/25 14:05 Medical Decision Making I reviewed the patient's recent hospitalization notes and ED visit from yesterday. I was the provider who evaluated the patient in the emergency department yesterday. Yesterday she had unremarkable blood work, urinalysis, EKG, urine tox which was unremarkable apart THC which the patient admits to chronic use. There was a concern yesterday about patient taking her medication erroneously. The patient's son has been unable to verify her medication last night. The patient reports that she has been compliant with all of her medications. Denies alcohol use and denies any other illicit drug use. During my evaluation the patient is alert, awake, oriented x 3 and appropriate. She had no focal deficit on exam with NIH stroke scale score 0. I am repeating her workup today but I have ordered imaging study of her head also. The patient's blood count The patient's blood counts and chemistries are back and they are benign. EKG is nondiagnostic. CTA shows no acute finding. I have spoken with the patient and her son regarding this. The patient's son still has concerns because of the on-and-off nature of her symptom even while waiting in the emergency department. I told him that I can speak with the hospitalist regarding perhaps further need for hospitalization. I subsequently spoke with Dr. Giles. He will be evaluating the patient shortly. Dr. Giles has evaluated the patient and determined that she is not appropriate for inpatient hospitalization but requested checking B12 level and RPR. I updated the patient and her son regarding this. I told him both that given their concern we can consult with psych to see if this would be something that they might be able to get to the bottom of and they are willing to wait so I did put in a psych request. Following for psych the patient and her son changed her mind and now wishes to leave. They eloped. Imaging Data Radiologic Study: Imaging: X-Ray (Chest) Radiologist's impression: Some platelike atelectasis noted in the right middle lobe, however, the amount of atelectasis in both lungs has decreased when compared to 11/26/2023 chest x-ray Radiologic Study #2: Imaging: CT Scan (head) Radiologist's impression: No acute intracranial findings on this noninfused CT scan of the brain. If clinically indicated follow-up brain MRI can be performed for added sensitivity and specificity. ECG Data Attestation: I personally reviewed and interpreted this ECG (s) as follows: (Sinus rhythm at a rate of 82 without acute ischemic change with normal intervals) [facility] All Active Problems (Updated 03/19/25 @ 21:07 by Sue Hilario DO) Hallucination (Acute) Confusion state (Acute) Hip pain (Acute) Sepsis (Acute) Elevated LFTs (Acute) Nausea (Acute) Abdominal pain (Acute) Nausea vomiting and diarrhea (Acute) UTI (urinary tract infection) (Acute) Acute hypokalemia (Acute) Well woman exam with routine gynecological exam (Acute) Screening for cervical cancer (Acute) Family history of colon cancer (Acute) Post-menopausal bleeding (Acute) Anxiety (Chronic) Folate deficiency (Acute) B12 deficiency (Acute) Depression (Chronic) Hyponatremia (Acute) Distal radius fracture, left (Acute 10/15/22) Right ankle sprain (Acute) Medical History Bipolar affective disorder Alcohol abuse GERD (gastroesophageal reflux disease) HTN (hypertension) Surgical History S/P bilateral oophorectomy benign disease, 09/2009 [facility] [place] S/P cholecystectomy S/P tubal ligation converted to open Family History Mother Aortic aneurysm rupture Breast cancer Social History Smoking/Tobacco Use Status: Former Tobacco Use Smoking risk assessment performed?: Yes Alcohol Intake: former Drug use: Occasionally Substance use type: marijuana Housing: house Do you feel safe at home: Yes Do you feel safe in your relationship?: Yes Additional Social history: Grew up in [place], former [employer]. Lives in [place]. Son and sister are supports
[2025-03-19 16:21] LABS: Abs Immature Grans 0.09 10^3/uL (0.0-0.06); HCT 35.6 % (36.0-46.0); HGB 11.6 g/dL (11.2-15.7); Immature Grans % 1.1 %; MCH 31.4 pg (27.0-33.0); MCHC 32.6 % (32.0-36.0); MCV 97 fL (80-95); MPV 11.7 fL (8.0-11.0); Platelet Count 363 10^3/uL (130-400); RBC 3.69 10^6/uL (3.93-5.22); RDW 14.9 % (11.7-14.6); RDW-SD 51.8 fL; WBC 8.33 10^3/uL (4.4-10.8)
--- NOTE | 2025-03-19 16:40 | DI.CT_ITS ---
Exam(s) CT HEAD WO EXAM: CT HEAD WO CLINICAL HISTORY: confusion since recent hospitalization. TECHNIQUE: Imaging Protocol: Axial computed tomography images with coronal and sagittal reformatted images were created and reviewed COMPARISON: CT CT ABDOMEN PELVIS W from 03/12/2025 FINDINGS: There are no skull fractures. There is no fluid in the visualized paranasal sinuses. There is no evidence of intracranial hemorrhage, mass effect, or shift of midline structures. There are no extra-axial fluid collections. The ventricles are not enlarged or shifted and there is no blood within the ventricular system nor within the basal cisterns. IMPRESSION: No acute intracranial findings on this noninfused CT scan of the brain. If clinically indicated follow-up brain MRI can be performed for added sensitivity and specificity. Report called by myself to ER on 03/19/2025 at 5:02 p.m. RADIATION DOSE DELIVERED: 831.96mGy.cm Total DLP DATA REPOSITORY: All CT scans at this facility are submitted to the National Radiology Data Registry (NRDR) Dose Index Registry (DIR) with the [employer] ([employer]). RADIATION OPTIMIZATION: All CT scans at this facility use at least one of these dose optimization techniques: automated exposure control; mA and/or kV adjustment per patient size (includes targeted exams where dose is matched to clinical indication); or iterative reconstruction.
--- NOTE | 2025-03-19 16:54 | DI.RAD_ITS ---
Exam(s) XR CHEST 2V PA LATERAL EXAM: XR CHEST 2V PA LATERAL CLINICAL HISTORY: confusion. TECHNIQUE: 2D digital imaging was performed. COMPARISON: CR XR CHEST 2V PA LATERAL from 11/26/2023 FINDINGS: 2 views: Heart size is normal. The mediastinum is not widened. There has been decrease in the atelectasis and infiltrate seen in the lung bases as evident on chest x-ray of 11/26/2023. There is, however, some persistent atelectasis in the lower right lung which appears to be in the right middle lobe, as best seen on the lateral view. No pleural effusions. No pulmonary edema. IMPRESSION: Some platelike atelectasis noted in the right middle lobe, however, the amount of atelectasis in both lungs has decreased when compared to 11/26/2023 chest x-ray DATA REPOSITORY: RADIATION DOSE DELIVERED:
[2025-03-19 17:01] LABS: ALT 53 U/L (14-59); AST 37 U/L (15-37); Albumin 3.4 g/dL (3.4-5.0); Alkaline Phosphatase 126 U/L (46-116); Anion Gap 8.8 mmol/L (3-11); BUN 5 mg/dL (7-18); Bilirubin, Total 0.3 mg/dL (0.2-1.0); CO2 24.2 mmol/L (21.0-32.0); Calcium 9.3 mg/dL (8.5-10.1); Chloride 107 mmol/L (98-107); Estimated GFR 88.60 (mL/min/1.73m2); Glucose 96 mg/dL (74-106); Potassium 3.5 mmol/L (3.5-5.1); Sodium 140 mmol/L (136-145); Total Protein 7.1 g/dL (6.4-8.2)
[2025-03-19 17:35] LABS: TSH (W/Ref FT4) 2.65 uIU/mL (0.36-3.74)
[2025-03-19 21:14] LABS: Vitamin B12 1038 pg/mL (193-986)
--- NOTE | 2025-03-19 21:52 | NUR.NOTE ---
this nurse spoke with DENIA Li and they are going to follow up with the PT Nursing Note:
[2025-03-21 10:03] LABS: Syphilis Serology (RPR) Negative (Negative)
== END 2025-03-19 21:07 | disposition left against medical advice (07) ==
PROVIDERS: Emergency Provider Emergency Medicine; PCP Student in an Organized Health Care Education/Training Program
DX: R44.3 Hallucinations, unspecified (principal); F44.89 Other dissociative and conversion disorders
CPT/HCPCS: 99284 ×2; 80053; 93005; 70450; 71046; 80320; 82607; 84443; 85025; 86592; 93010

== ENCOUNTER 2025-04-20 05:26 | Outpatient (CLI) | payer OTHER, SELFPAY ==
--- NOTE | 2025-04-20 | DI.MAMMO_ITS ---
Exam(s) MAMMO SCREENING EXAM: MAMMO SCREENING CLINICAL HISTORY: SCREENING MAMMO Z12.31. TECHNIQUE: Bilateral full field digital CC and MLO mammographic images were obtained with 3D tomosynthesis and utilizing computer aided detection (CAD). COMPARISON: Prior mammograms were reviewed. FINDINGS: Fibroglandular tissue is again noted be moderately dense. There are no new findings in the immediate vicinity of a biopsy marker clip in the right breast. There are no new spiculated masses nor new malignant appearing microcalcification groups. There is no significant architectural distortion nor skin thickening-retraction. IMPRESSION: No radiographic evidence of malignancy. BI-RADS Category 1 - Negative Breast Density - Category C - The breast are heterogeneously dense, which may obscure small masses. Breast density Category C or D implies that the patient has dense breast tissue. Dense breast tissue can make it harder to find cancer on a mammogram. Dense breast tissue is also associated with an increased risk of breast cancer. This information about the result of the mammogram report was provided to the patient to raise their awareness. Use this report when you speak with the patient about their risks for breast cancer, which includes their family history. At that time, you may recommend additional screening tests (Ultrasound or MRI) as these tests may add significant information. A negative radiographic report should not delay biopsy if a dominant or clinically suspicious mass is present. Up to ten percent of cancers are not identified on mammography. A negative report may reinforce clinical impression. Adenosis and dense breasts may obscure an underlying neoplasm. False positive reports average 6 to 10%. Patient will receive a letter notifying them of these results.
== END 2025-04-20 05:46 ==
LOC: DI 05:26
PROVIDERS: PCP Student in an Organized Health Care Education/Training Program; Visit Provider Student in an Organized Health Care Education/Training Program
DX: Z12.31 Encounter for screening mammogram for malignant neoplasm of breast (principal)
CPT/HCPCS: 77063; 77067

== ENCOUNTER 2025-04-24 15:04 | Outpatient (REF) | payer OTHER, SELFPAY ==
[2025-04-24 14:24] LABS: Abs Immature Grans 0.04 10^3/uL (0.0-0.06); HCT 38.7 % (36.0-46.0); HGB 12.7 g/dL (11.2-15.7); Immature Grans % 0.4 %; MCH 32.2 pg (27.0-33.0); MCHC 32.8 % (32.0-36.0); MCV 98 fL (80-95); MPV 12.2 fL (8.0-11.0); Platelet Count 431 10^3/uL (130-400); RBC 3.94 10^6/uL (3.93-5.22); RDW 14.1 % (11.7-14.6); RDW-SD 51.0 fL; WBC 9.62 10^3/uL (4.4-10.8)
[2025-04-24 15:03] LABS: ALT 21 U/L (14-59); AST 21 U/L (15-37); Albumin 4.1 g/dL (3.4-5.0); Alkaline Phosphatase 112 U/L (46-116); Anion Gap 11.5 mmol/L (3-11); BUN 10 mg/dL (7-18); Bilirubin, Total 0.3 mg/dL (0.2-1.0); CO2 21.5 mmol/L (21.0-32.0); Calcium 9.4 mg/dL (8.5-10.1); Chloride 108 mmol/L (98-107); Estimated GFR 88.60 (mL/min/1.73m2); Folate > 20.0 ng/mL (8.6-20.0); Glucose 89 mg/dL (74-106); Potassium 4.1 mmol/L (3.5-5.1); Sodium 141 mmol/L (136-145); TSH 0.78 uIU/mL (0.36-3.74); Total Protein 7.7 g/dL (6.4-8.2); Vitamin B12 808 pg/mL (193-986)
[2025-04-25 10:48] LABS: Rubella IgG Ab (UVM) Positive (See Note)
[2025-04-25 11:14] LABS: HBs Antibody, Quant 23.7 mIU/mL (See Note); Hepatitis B Surface Ab Positive (See Note)
== END 2025-04-24 15:05 | disposition home or self-care (01) ==
LOC: NCHCN 15:04
PROVIDERS: PCP Student in an Organized Health Care Education/Training Program; Visit Provider Student in an Organized Health Care Education/Training Program
DX: R11.0 Nausea (principal); D53.9 Nutritional anemia, unspecified; Z02.1 Encounter for pre-employment examination
CPT/HCPCS: 80053; 86706; 86787; 82607; 82746; 84439; 84443; 85025; 86735; 86762; 86765

== ENCOUNTER 2025-05-08 04:51 | Outpatient (CLI) | payer OTHER, SELFPAY ==
[2025-05-08 15:54] LABS: Abs Immature Grans 0.06 10^3/uL (0.0-0.06); ESR 4 mm/hr (0-30); HCT 37.5 % (36.0-46.0); HGB 12.1 g/dL (11.2-15.7); Immature Grans % 0.6 %; MCH 31.5 pg (27.0-33.0); MCHC 32.3 % (32.0-36.0); MCV 98 fL (80-95); MPV 10.9 fL (8.0-11.0); Platelet Count 442 10^3/uL (130-400); RBC 3.84 10^6/uL (3.93-5.22); RDW 13.2 % (11.7-14.6); RDW-SD 47.1 fL; WBC 9.24 10^3/uL (4.4-10.8)
[2025-05-08 18:17] LABS: ALT 22 U/L (14-59); AST 16 U/L (15-37); Albumin 3.6 g/dL (3.4-5.0); Alkaline Phosphatase 102 U/L (46-116); Anion Gap 9.9 mmol/L (3-11); BUN 13 mg/dL (7-18); Bilirubin, Total 0.3 mg/dL (0.2-1.0); CO2 23.1 mmol/L (21.0-32.0); Calcium 9.5 mg/dL (8.5-10.1); Chloride 106 mmol/L (98-107); Estimated GFR 76.92 (mL/min/1.73m2); Glucose 82 mg/dL (74-106); Potassium 3.9 mmol/L (3.5-5.1); Sodium 139 mmol/L (136-145); Total Protein 7.4 g/dL (6.4-8.2)
[2025-05-08 18:54] LABS: C-Reactive Protein < 0.50 mg/dL (<or=0.5)
[2025-05-12 17:44] LABS: Valproic Acid, Free <3 mcg/mL (5 - 25); Valproic Acid, Total 12 mcg/mL (50 - 125)
== END 2025-05-08 04:52 | disposition home or self-care (01) ==
LOC: LBO 05-09 04:51
PROVIDERS: PCP Student in an Organized Health Care Education/Training Program; Visit Provider Student in an Organized Health Care Education/Training Program
DX: G40.909 Epilepsy, unspecified, not intractable, without status epilepticus (principal); R89.8 Other abnormal findings in specimens from other organs, systems and tissues
CPT/HCPCS: 36415; 80053; 80165; 85652; 85025; 86038; 86140

== ENCOUNTER 2025-05-08 15:36 | Outpatient (REF) | payer OTHER, SELFPAY | END 2025-05-08 15:37 | disposition home or self-care (01) | LOC: LBN 15:36 | PROVIDERS: PCP Student in an Organized Health Care Education/Training Program; Visit Provider Obstetrics & Gynecology | DX: R35.0 Frequency of micturition (principal) | CPT/HCPCS: 87086 ==

== ENCOUNTER 2025-05-10 13:37 | Emergency (ER) | payer OTHER, SELFPAY ==
[2025-05-10] VITALS (23 sets, daily range): BP systolic 139; BP diastolic 103; PULSE 70–106; RESP 16–20; TEMP 36.8; O2SAT 93
--- NOTE | 2025-05-10 13:30 | RT.EKG_ITS ---
APPROVED REPORT Exam: Resting ECG Reason for Exam: High Blood Pressure Patient Location: E HR:90 bpm ECG Measurements Heart Rate 90 AXIS WV 161 P 8 QRSd 79 QRS 5 QT 343 T 4 QTc 420 Conclusion Sinus rhythm...normal P axis, V-rate 60- 99 Physician: No STEMI
--- NOTE | 2025-05-10 14:15 | DI.CT_ITS ---
Exam(s) CT THORAX ABD/PEL CTA EXAM: CT THORAX ABD/PEL CTA CLINICAL HISTORY: Syncope, family history of aneurysm, now chest noemi. TECHNIQUE: Imaging Protocol: Axial CT angiography was performed with multi- slice acquisition and multi-planar and/or 3D reconstructions. Lung Computer Aided Detection (CAD) was utilized. CONTRAST MATERIAL: Intravenous: Omnipaque 350 contrast volume:100 mL Oral: No COMPARISON: CT CT THORAX ABD/PEL CTA from 08/30/[address] ABDOMEN PELVIS CTA from 03/02/[address] ABDOMEN PELVIS W from 03/12/2025 FINDINGS: CHEST: Tracheobronchial tree: Patent where visualized. There is no evidence of bronchiectasis. Pulmonary parenchyma: No consolidation or dominant measurable mass. There is a 3 mm nodule in the right lower lobe (series 17, image 89). There is atelectasis in the lungs bilaterally. Pulmonary Arteries: No evidence of filling defect to suggest pulmonary emboli. Mediastinum and Lynda: No dominant adenopathy or fluid collection. The esophagus is unremarkable. Visualized thyroid: Unremarkable. Pleura: No effusion or pneumothorax. Heart: The heart is not dilated. No coronary artery calcifications are seen. No pericardial effusion. Aorta: Thoracic aorta non-dilated. There is no evidence of dissection. Soft Tissues: Unremarkable. Bones: Within normal limits for the patient's age. ABDOMEN AND PELVIS: Abdomen: Celiac axis/mesenteric arteries: No evidence of occlusion or significant stenosis. Renal Arteries: No evidence of occlusion or significant stenosis. Aorta: No evidence of occlusion or significant stenosis. No aneurysm or dissection. Pelvis: Iliac Arteries: No evidence of occlusion or significant stenosis. Common Femoral Arteries: No evidence of occlusion or significant stenosis. ABDOMEN: Liver: Normal density. There are no suspicious masses present. Portal, superior mesenteric and splenic veins: Unremarkable. Gallbladder and Biliary Tract: Status post cholecystectomy. There is no significant biliary ductal dilatation. Pancreas: Normal density, no abnormal calcifications or inflammatory process. Spleen: Normal. Adrenals: No masses seen. Kidneys: Normal size, contour and axis. No radiodense stones or obstructive uropathy. There is a simple cyst on the left kidney. No follow-up is recommended. Bowel: No obstruction or bowel wall thickening. There is no evidence of appendicitis. There is a moderate amount of stool in the colon which may reflect constipation. Peritoneal Cavity: No ascites, collection or mesenteric inflammatory response. No free air. Lymph Nodes: Within normal limits. Bones: Within normal limits for the patient's age. Soft Tissues: Unremarkable. PELVIS: Bladder: Symmetric distention, no gross wall thickening. Reproductive Organs: Unremarkable as visualized. Lymph Nodes: Within normal limits. Bones: Within normal limits for the patient's age. IMPRESSION: 1. There is no evidence of an acute abdominal or pelvic process. 2. There is no evidence of a pulmonary embolism, thoracic aortic dissection or aneurysm. 3. No evidence of an abdominal aneurysm or dissection. 4. No acute pulmonary process. 5. 3 mm right lower lobe pulmonary nodule. Solid nodules smaller than 6 mm do not require routine follow-up in all patients with high clinical risk; however, some nodules smaller than 6 mm with suspicious morphology, upper lobe location, or both may warrant follow-up at 12 months (grade 2A; weak recommendation, high-quality evidence). (Fanny et al., 2017) Single solid noncalcified nodules. ???Solid nodules smaller than 6 mm (those 5 mm or smaller) do not require routine follow-up in patients at low risk (grade 1C; strong recommendation, low- or [id number] evidence). (Fanny et al., 2017) Unexpected findings RADIATION DOSE DELIVERED: 1,175.54mGy.cm Total DLP DATA REPOSITORY: All CT scans at this facility are submitted to the National Radiology Data Registry (NRDR) Dose Index Registry (DIR) with the [employer] (A[employer]). RADIATION OPTIMIZATION: All CT scans at this facility use at least one of these dose optimization techniques: automated exposure control; mA and/or kV adjustment per patient size (includes targeted exams where dose is matched to clinical indication); or iterative reconstruction.
--- NOTE | 2025-05-10 14:38 | W.ED.GENAD ---
Discharge Plan Disposition Patient Disposition: Home Condition: Good Discharge Details Clinical Impression: Near syncope, UTI (urinary tract infection), Incidental pulmonary nodule Primary Care Provider: Christopher Knott ED Provider: Mehul Raza Home Meds and New Rx's Prescriptions: New cephalexin 500 mg capsule 500 mg PO QID 7 Days Qty: 28 0RF No Action clonazepam 0.5 mg tablet 0.5 mg PO TID PRN duloxetine 60 mg capsule,delayed release(DR/EC) 60 mg PO DAILY Aimovig Autoinjector 140 mg/mL auto-injector 140 mg SUBCUT .MONTHLY divalproex 500 mg tablet,delayed release (DR/EC) 500 mg PO BID Patient Comments: TAKE 1 TABLET BY MOUTH TWICE DAILY multivitamin [Multiple Vitamins] Tablet 1 tab PO DAILY Qty: 30 0RF albuterol sulfate 90 mcg/actuation HFA aerosol inhaler 2 puff INHALATION Q4H PRN Patient Comments: INHALE 2 PUFFS BY MOUTH EVERY 4 TO 6 HOURS NEEDED FOR WHEEZING topiramate 200 mg tablet 200 mg PO BID Patient Comments: TAKE 1 TABLET BY MOUTH TWICE DAILY trazodone 100 mg tablet 100 mg PO BID Patient Comments: TAKE 1 TABLET BY MOUTH TWICE DAILY sennosides-docusate sodium [Stimulant Laxative Plus] 8.6-50 mg tablet 1 tab-cap PO BID Patient Comments: TAKE 1 TABLET BY MOUTH TWICE DAILY ondansetron 4 mg tablet,disintegrating 4 mg PO Q8H PRNQty: 10 0RF famotidine [Pepcid] 20 mg tablet 20 mg PO BID Qty: 28 0RF olanzapine 5 mg tablet 5 mg PO HS Patient Comments: TAKE 1 TABLET BY MOUTH EVERY DAY AT BEDTIME potassium chloride 10 mEq capsule, extended release 10 meq PO DAILY Patient Comments: TAKE 1 CAPSULE BY MOUTH EVERY DAY acetaminophen 325 mg Tablet 650 mg PO Q4H PRN PRNQty: 0 0RF pregabalin 75 mg capsule 25 mg PO BID Qty: 60 0RF Patient Comments: TAKE 1 CAPSULE BY MOUTH TWICE DAILY celecoxib 100 mg capsule 100 mg PO BID Qty: 60 0RF omeprazole 40 mg capsule,delayed release(DR/EC) 40 mg PO DAILY Qty: 30 1RF Niacinamide/Semaglutide 17 unit subcut USEASDIRECTD Discharge Instructions Instructions: Near Fainting Additional Instructions: At this time your workup has returned very reassuring. There is no evidence of heart attack, aneurysm or other significant abnormality. There is evidence to suggest a mild urinary tract infection. Please take the antibiotic as prescribed. Drink plenty fluids and stay well-hydrated. Your primary care provider Christopher Knott would like to follow-up with you closely and has recommended we restart your previous antihypertensive medication amlodipine. He has placed a prescription for this. Due to your previous history, it is felt that this would be a better medication. You do have a small pulmonary nodule noted in your lungs. This does not otherwise appear to be any significant reflection of cancer. Please follow-up with your primary care provider for repeat imaging in 6 to 12 months. Additionally, because of your lightheadedness we have placed an order for an outpatient Holter monitor. They will contact you for an appointment time to have this applied. If you notice any worsening of your symptoms, or any new symptoms such as vomiting, diarrhea, fever, chills, shortness of breath, chest pain, numbness, weakness, or fainting , please return immediately to the emergency department for reevaluation. Please follow up with your primary care provider as soon as possible for reassessment and reevaluation. As always, it was a pleasure participating in your medical care today. Referrals: Christopher Knott [Primary Care Provider, Medicine] Discharge Orders Other Ambulatory Orders: Holter Monitor (Routine) Timeframe: 1 Week Facility: [facility] - Location: Respiratory Therapy Ordered By: Mehul Raza [facility] General Date/Time Provider Initiated Documentation: 05/10/25 14:10. HPI Narrative: 54-year-old female with a past medical history of depression, bipolar, anxiety, migraines, GERD, hypertension, cholecystectomy, presents today for evaluation of lightheadedness and near syncope. Patient states that she was on her treadmill today when she suddenly felt very lightheaded had tunnel vision and felt like she was going to pass out. She stated that it lasted for few minutes, she was able to lie down and she also felt short of breath during that time. She had no chest pain or pleuritic chest pain. She had no chest tightness. Symptoms improved and she then came to the ER for further assessment. She states that she still feels fatigued and somewhat out of it at this time but denies any other complaints. No recent long trips surgeries or procedures. No leg pain or calf pain or swelling. No history of blood clots in the past, PEs, heart attacks or strokes. No history of cardiac dysrhythmias. She does have a family history of her mother having a AAA, cardiac disease. No other complaints at this time. Related Data Home Medications ?Medication ?Instructions ?Recorded ?Confirmed clonazepam 0.5 mg tablet 0.5 mg PO TID PRN 09/22/21 05/10/25 duloxetine 60 mg capsule,delayed 60 mg PO DAILY 09/22/21 05/10/25 release erenumab-aooe 140 mg/mL 140 mg subcut .MONTHLY 10/15/22 05/10/25 subcutaneous auto-injector (Aimovig Autoinjector) divalproex 500 mg tablet,delayed 500 mg PO BID 08/06/23 05/10/25 release multivitamin (Multiple Vitamins 1 tab PO DAILY #30 tabs 08/08/23 05/10/25 tablet) albuterol sulfate 90 mcg/actuation 2 puff inhalation Q4H PRN 03/02/25 05/10/25 aerosol inhaler famotidine 20 mg tablet (Pepcid) 20 mg PO BID #28 tabs 03/02/25 05/10/25 ondansetron 4 mg disintegrating 4 mg PO Q8H PRN #10 tabs 03/02/25 05/10/25 tablet sennosides 8.6 mg-docusate sodium 1 tab-cap PO BID 03/02/25 05/10/25 50 mg tablet (Stimulant Laxative Plus) topiramate 200 mg tablet 200 mg PO BID 03/02/25 05/10/25 trazodone 100 mg tablet 100 mg PO BID 03/02/25 05/10/25 olanzapine 5 mg tablet 5 mg PO HS 03/12/25 05/10/25 potassium chloride 10 mEq 10 meq PO DAILY 03/12/25 05/10/25 capsule,extended release acetaminophen 325 mg tablet 650 mg (2 x 325 mg) PO Q4H PRN PRN 03/14/25 05/10/25 #0 tabs celecoxib 100 mg capsule 100 mg PO BID #60 caps 03/14/25 05/10/25 omeprazole 40 mg capsule,delayed 40 mg PO DAILY #30 caps 03/14/25 05/10/25 release pregabalin 75 mg capsule 25 mg (0.3333 x 75 mg) PO BID #60 03/14/25 05/10/25 caps Niacinamide/Semaglutide 17 unit subcut USEASDIRECTD 05/10/25 05/10/25 cephalexin 500 mg capsule 500 mg PO QID 7 days #28 caps 05/10/25 Previous Rx's ?Medication ?Instructions ?Recorded multivitamin (Multiple Vitamins 1 tab PO DAILY #30 tabs 08/08/23 tablet) famotidine 20 mg tablet (Pepcid) 20 mg PO BID #28 tabs 03/02/25 ondansetron 4 mg disintegrating 4 mg PO Q8H PRN #10 tabs 03/02/25 tablet acetaminophen 325 mg tablet 650 mg (2 x 325 mg) PO Q4H PRN PRN 03/14/25 #0 tabs celecoxib 100 mg capsule 100 mg PO BID #60 caps 03/14/25 omeprazole 40 mg capsule,delayed 40 mg PO DAILY #30 caps 03/14/25 release pregabalin 75 mg capsule 25 mg (0.3333 x 75 mg) PO BID #60 03/14/25 caps cephalexin 500 mg capsule 500 mg PO QID 7 days #28 caps 05/10/25 Allergies Allergy/AdvReac Type Severity Reaction Status Date / Time No Known Allergies Allergy Verified 05/10/25 14:04 General Stated Complaint: [id number] MAIA: 3 Exam Narrative Exam Narrative: 1.Const: Well-nourished, Well-developed, appearing stated age 2.Eyes: PERRL, no conjunctival injection, and symmetrical lids. 3.ENT: Atraumatic external nose and ears. Moist MM. Neck: Symmetric, trachea midline, No thyromegaly. 4.CVS: +S1/S2, Peripheral pulses 2+ and equal in all extremities. Brisk capillary refill in all extremities. 5.RESP: Unlabored respiratory effort. Clear to auscultation bilaterally. No wheezes rales or rhonchi 6.GI: Soft, Nontender/Nondistended, No hepatosplenomegaly. No guarding or rebound. 7.MSK: Normocephalic/Atraumatic, Extremities w/o deformity or ttp No cyanosis or clubbing, Normal movement of all extremities. No calf tenderness. 8.Skin: Warm, Dry. No rashes or lesions. 9.Neuro: boat garnisher II-XII grossly intact. Sensation grossly intact, no focal neurologic deficits. 10.Psych: (AAO) x3. Appropriate mood and affect Course Vital Signs Vital signs: Vital Signs Temperature 36.8 C 05/10/25 13:57 Pulse 95 H 05/10/25 13:57 Respiratory Rate 16 05/10/25 13:57 Blood Pressure 139/103 H 05/10/25 13:57 Pulse Oximetry 93 05/10/25 13:57 Temperature 36.8 C 05/10/25 13:57 Temperature Source Oral 05/10/25 13:57 Pulse 95 H 05/10/25 13:57 Respiratory Rate 16 05/10/25 13:57 Blood Pressure 139/103 H 05/10/25 13:57 Blood Pressure Position Sitting 05/10/25 13:57 Pulse Oximetry 93 05/10/25 13:57 Oxygen Delivery Method Room Air 05/10/25 13:57 Oxygen Flow Rate 0 05/10/25 13:57 Pain Level 0 05/10/25 13:57 Medical Decision Making 54-year-old female with a past medical history of depression, bipolar, anxiety, migraines, GERD, hypertension, cholecystectomy, presents today for evaluation of lightheadedness and near syncope. Patient states that she was on her treadmill today when she suddenly felt very lightheaded had tunnel vision and felt like she was going to pass out. She stated that it lasted for few minutes, she was able to lie down and she also felt short of breath during that time. She had no chest pain or pleuritic chest pain. She had no chest tightness. Symptoms improved and she then came to the ER for further assessment. She states that she still feels fatigued and somewhat out of it at this time but denies any other complaints. No recent long trips surgeries or procedures. No leg pain or calf pain or swelling. No history of blood clots in the past, PEs, heart attacks or strokes. No history of cardiac dysrhythmias. She does have a family history of her mother having a AAA, cardiac disease. No other complaints at this time. Exam demonstrates a well-appearing female, stable vital signs, normal pulses throughout. Mild tachycardia. Concern for cardiac dysrhythmia, dehydration, and PE. AAA notably less likely but on the differential with her family history. EKG shows no evidence of STEMI or significant abnormality. There are inverted T waves in lead III, but no other concerning components. We will evaluate for concerning etiologies, rehydrate, monitor closely and reassess. Patient would likely benefit from an outpatient Holter monitor if any of her symptomatology and workup returns unremarkable. 5:17 PM Laboratory workup has returned, there is evidence of trace urinary tract infection. Otherwise serial troponins electrolytes renal function is all stable. She does have mild eosinophilia, this appears unchanged. I was contacted by Christopher Manrique, he did request that we get a B12 and folate. I have ordered these on his behalf. He will be following up with these outpatient. CTA is negative for acute process. There is a 3 mm right lower lobe pulmonary nodule but no other acute abnormality otherwise. Bedside limited echo shows no concerning pathology or abnormality at this time a limited exam. Will place order for outpatient Holter. Patient is low risk per [place] syncope rule. Patient will be discharged with close follow-up with PCP. I have extensively reviewed the treatment plan and discharge instructions with the patient. I have addressed all patient concerns at this time. The patient was made aware of what symptoms to monitor for that would warrant a return to the emergency department. Discussed the plan with the patient, they demonstrate verbal understanding and agreement with our assessment and plan at this time. The documentation in this chart was dictated using [employer] dictation software. Please excuse any dictation errors. FINDINGS: CHEST: Tracheobronchial tree: Patent where visualized. There is no evidence of bronchiectasis. Pulmonary parenchyma: No consolidation or dominant measurable mass. There is a 3 mm nodule in the right lower lobe (series 17, image 89). There is atelectasis in the lungs bilaterally. Pulmonary Arteries: No evidence of filling defect to suggest pulmonary emboli. Mediastinum and Lynda: No dominant adenopathy or fluid collection. The esophagus is unremarkable. Visualized thyroid: Unremarkable. Pleura: No effusion or pneumothorax. Heart: The heart is not dilated. No coronary artery calcifications are seen. No pericardial effusion. Aorta: Thoracic aorta non-dilated. There is no evidence of dissection. Soft Tissues: Unremarkable. Bones: Within normal limits for the patient's age. ABDOMEN AND PELVIS: Abdomen: Celiac axis/mesenteric arteries: No evidence of occlusion or significant stenosis. Renal Arteries: No evidence of occlusion or significant stenosis. Aorta: No evidence of occlusion or significant stenosis. No aneurysm or dissection. Pelvis: Iliac Arteries: No evidence of occlusion or significant stenosis. Common Femoral Arteries: No evidence of occlusion or significant stenosis. ABDOMEN: Liver: Normal density. There are no suspicious masses present. Portal, superior mesenteric and splenic veins: Unremarkable. Gallbladder and Biliary Tract: Status post cholecystectomy. There is no significant biliary ductal dilatation. Pancreas: Normal density, no abnormal calcifications or inflammatory process. Spleen: Normal. Adrenals: No masses seen. Kidneys: Normal size, contour and axis. No radiodense stones or obstructive uropathy. There is a simple cyst on the left kidney. No follow-up is recommended. Bowel: No obstruction or bowel wall thickening. There is no evidence of appendicitis. There is a moderate amount of stool in the colon which may reflect constipation. Peritoneal Cavity: No ascites, collection or mesenteric inflammatory response. No free air. Lymph Nodes: Within normal limits. Bones: Within normal limits for the patient's age. Soft Tissues: Unremarkable. PELVIS: Bladder: Symmetric distention, no gross wall thickening. Reproductive Organs: Unremarkable as visualized. Lymph Nodes: Within normal limits. Bones: Within normal limits for the patient's age. IMPRESSION: 1. There is no evidence of an acute abdominal or pelvic process. 2. There is no evidence of a pulmonary embolism, thoracic aortic dissection or aneurysm. 3. No evidence of an abdominal aneurysm or dissection. 4. No acute pulmonary process. 5. 3 mm right lower lobe pulmonary nodule. PFSH All Active Problems (Updated 05/10/25 @ 17:19 by Mehul Raza DO) Incidental pulmonary nodule (Acute) UTI (urinary tract infection) (Acute) Near syncope (Acute) Elevated blood pressure reading with diagnosis of hypertension (Acute) Distended bladder (Acute) Urinary frequency (Acute) Hip pain (Acute) Sepsis (Acute) Elevated LFTs (Acute) Nausea (Acute) Abdominal pain (Acute) Nausea vomiting and diarrhea (Acute) UTI (urinary tract infection) (Acute) Acute hypokalemia (Acute) Well woman exam with routine gynecological exam (Acute) Screening for cervical cancer (Acute) Family history of colon cancer (Acute) Post-menopausal bleeding (Acute) Anxiety (Chronic) Folate deficiency (Acute) B12 deficiency (Acute) Depression (Chronic) Hyponatremia (Acute) Distal radius fracture, left (Acute 10/15/22) Right ankle sprain (Acute) Medical History Bipolar affective disorder Alcohol abuse GERD (gastroesophageal reflux disease) HTN (hypertension) Surgical History S/P bilateral oophorectomy benign disease, [place] [facility] [place] S/P tubal ligation converted to open Family History Mother Aortic aneurysm rupture Breast cancer Social History Smoking/Tobacco Use Status: Former Tobacco Use Smoking risk assessment performed?: Yes Alcohol Intake: former Drug use: Occasionally Substance use type: marijuana Housing: house Do you feel safe at home: Yes Do you feel safe in your relationship?: Yes Additional Social history: Grew up in [place], [employer]. Lives in [place]. Son and sister are supports
[2025-05-10] MEDS: Normal Saline 500 ML IV (14:57)
[2025-05-10 15:11] LABS: Glucose Negative (Negative)
[2025-05-10 15:13] LABS: Abs Immature Grans 0.05 10^3/uL (0.0-0.06); HCT 41.6 % (36.0-46.0); HGB 13.0 g/dL (11.2-15.7); Immature Grans % 0.6 %; MCH 31.2 pg (27.0-33.0); MCHC 31.3 % (32.0-36.0); MCV 100 fL (80-95); MPV 11.2 fL (8.0-11.0); Platelet Count 444 10^3/uL (130-400); RBC 4.17 10^6/uL (3.93-5.22); RDW 13.2 % (11.7-14.6); RDW-SD 48.8 fL; WBC 9.09 10^3/uL (4.4-10.8)
[2025-05-10 15:23] LABS: C & S Indicated? No; RBC Negative HPF (0-2)
[2025-05-10 15:24] LABS: INR 0.9 (0.9-1.1); PTT Activated 26.6 sec (20.6-30.2); Prothrombin Time 9.1 sec (9.1-11.1)
[2025-05-10 15:39] LABS: ALT 28 U/L (14-59); AST 20 U/L (15-37); Albumin 4.1 g/dL (3.4-5.0); Alkaline Phosphatase 112 U/L (46-116); Anion Gap 8.9 mmol/L (3-11); BUN 11 mg/dL (7-18); Bilirubin, Total 0.3 mg/dL (0.2-1.0); CO2 25.1 mmol/L (21.0-32.0); Calcium 9.1 mg/dL (8.5-10.1); Chloride 106 mmol/L (98-107); Estimated GFR 76.92 (mL/min/1.73m2); Glucose 72 mg/dL (74-106); NT-proBNP 51 pg/mL (<300); Potassium 3.8 mmol/L (3.5-5.1); Sodium 140 mmol/L (136-145); Total Protein 8.1 g/dL (6.4-8.2)
[2025-05-10 15:44] LABS: Troponin I < 4 ng/L (<or=51)
[2025-05-10 15:58] LABS: TSH (W/Ref FT4) 1.48 uIU/mL (0.36-3.74)
[2025-05-10] MEDS: Omnipaque 350 MG/ML 100 ML BTL IJ (16:21)
[2025-05-10] MEDS: Normal Saline - Diluent 50 ML VIAL IJ (16:22)
[2025-05-10] MEDS: Normal Saline Flush 10 ML SYR IVP (16:23)
[2025-05-10 17:11] LABS: Troponin I < 4 ng/L (<or=51)
[2025-05-10] MEDS: Cephalexin 500 MG CAP, 4 CAPS/BTL PO (17:45)
[2025-05-10 17:46] LABS: Vitamin B12 806 pg/mL (193-986)
[2025-05-10 17:53] LABS: Folate > 20.0 ng/mL (8.6-20.0)
== END 2025-05-10 17:47 | disposition home or self-care (01) ==
PROVIDERS: Emergency Provider Student in an Organized Health Care Education/Training Program; PCP Student in an Organized Health Care Education/Training Program
DX: R55 Syncope and collapse (principal); N39.0 Urinary tract infection, site not specified; R91.1 Solitary pulmonary nodule; I10 Essential (primary) hypertension; R53.83 Other fatigue; Z82.49 Family history of ischemic heart disease and other diseases of the circulatory system; D72.10 Eosinophilia, unspecified
CPT/HCPCS: 36415; 71275; 80053; 93005; 93308; 96360; 99285; 74174; 81003; 81015; 82607; 82746; 83880; 84443; 84484; 85025; 85610; 85730; 93010; 99284; J3490

== ENCOUNTER 2025-05-30 08:52 | Emergency (ER) | payer OTHER, SELFPAY ==
[2025-05-30 08:54] VITALS: BP 141/97; PULSE 120; RESP 16; TEMP 36.6; O2SAT 99
[2025-05-30 09:12] VITALS: BP 118/91; PULSE 103; RESP 16; O2SAT 97
--- NOTE | 2025-05-30 09:25 | W.ED.GENAD ---
Discharge Plan Disposition Patient Disposition: Home Condition: Stable Discharge Details Clinical Impression: Medication withdrawal, Arthritic-like pain, Nausea Primary Care Provider: Christopher Knott ED Provider: Slim Lopez Home Meds and New Rx's Prescriptions: New celecoxib [Celebrex] 200 mg capsule 200 mg PO BID Qty: 30 0RF pregabalin 50 mg capsule 50 mg PO BID Qty: 60 0RF Continued clonazepam 0.5 mg tablet 0.5 mg PO TID PRN duloxetine 60 mg capsule,delayed release(DR/EC) 60 mg PO DAILY Aimovig Autoinjector 140 mg/mL auto-injector 140 mg SUBCUT .MONTHLY divalproex 500 mg tablet,delayed release (DR/EC) 500 mg PO BID Patient Comments: TAKE 1 TABLET BY MOUTH TWICE DAILY multivitamin [Multiple Vitamins] Tablet 1 tab PO DAILY Qty: 30 0RF albuterol sulfate 90 mcg/actuation HFA aerosol inhaler 2 puff INHALATION Q4H PRN Patient Comments: INHALE 2 PUFFS BY MOUTH EVERY 4 TO 6 HOURS NEEDED FOR WHEEZING topiramate 200 mg tablet 200 mg PO BID Patient Comments: TAKE 1 TABLET BY MOUTH TWICE DAILY trazodone 100 mg tablet 100 mg PO BID Patient Comments: TAKE 1 TABLET BY MOUTH TWICE DAILY sennosides-docusate sodium [Stimulant Laxative Plus] 8.6-50 mg tablet 1 tab-cap PO BID Patient Comments: TAKE 1 TABLET BY MOUTH TWICE DAILY ondansetron 4 mg tablet,disintegrating 4 mg PO Q8H PRNQty: 10 0RF famotidine [Pepcid] 20 mg tablet 20 mg PO BID Qty: 28 0RF olanzapine 5 mg tablet 5 mg PO HS Patient Comments: TAKE 1 TABLET BY MOUTH EVERY DAY AT BEDTIME potassium chloride 10 mEq capsule, extended release 10 meq PO DAILY Patient Comments: TAKE 1 CAPSULE BY MOUTH EVERY DAY acetaminophen 325 mg Tablet 650 mg PO Q4H PRN PRNQty: 0 0RF omeprazole 40 mg capsule,delayed release(DR/EC) 40 mg PO DAILY Qty: 30 1RF Niacinamide/Semaglutide 17 unit subcut USEASDIRECTD Discontinued pregabalin 75 mg capsule 25 mg PO BID Qty: 60 0RF Patient Comments: TAKE 1 CAPSULE BY MOUTH TWICE DAILY celecoxib 100 mg capsule 100 mg PO BID Qty: 60 0RF Discharge Instructions Instructions: Joint Pain, Drug Withdrawal ED Additional Instructions: Please follow-up with your primary care physician. Call today to schedule. Return to the emergency department immediately for any worsening or new concerning symptoms. Referrals: Christopher Knott [Primary Care Provider, Medicine] Discharge Data Discharge Date/Time-TO BE ENTERED AT DEPARTURE: 05/30/25 09:54 HPI General Mode of arrival: ambulatory. Date/Time Provider Initiated Documentation: 05/30/25 09:02. Limitations to Documentation: no limitations. Information obtained by: patient. HPI Narrative: HISTORY OF PRESENT ILLNESS This is a 54-year-old female with a history of bipolar affective disorder, migraine headache, GERD, and hypertension presenting with severe pain due to arthritis. The patient reports that her pain, primarily located in her hips, lower back, knees, and shoulders, has been exacerbated by the colder weather. She has been taking Lyrica 25 mg three times a day for the past 6 weeks, which has allowed her to be more active and exercise. However, she increased her dosage to manage the pain during colder weather, resulting in an early depletion of her medication. She has been unable to refill her prescription until 06/10/2025. The patient also takes Tylenol 8-hour Arthritis and Celebrex as prescribed. Three days ago, she ran out of her medication and has since experienced daily nausea but has not vomited. She reports that the pain has disrupted her sleep and she feels generally unwell. 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 The patient reports no fever, chills, or rashes. She does not smoke, drink alcohol, or use drugs. Related Data Home Medications ?Medication ?Instructions ?Recorded ?Confirmed clonazepam 0.5 mg tablet 0.5 mg PO TID PRN 09/22/21 05/30/25 duloxetine 60 mg capsule,delayed 60 mg PO DAILY 09/22/21 05/30/25 release erenumab-aooe 140 mg/mL 140 mg subcut .MONTHLY 10/15/22 05/30/25 subcutaneous auto-injector (Aimovig Autoinjector) divalproex 500 mg tablet,delayed 500 mg PO BID 08/06/23 05/30/25 release multivitamin (Multiple Vitamins 1 tab PO DAILY #30 tabs 08/08/23 05/30/25 tablet) albuterol sulfate 90 mcg/actuation 2 puff inhalation Q4H PRN 03/02/25 05/30/25 aerosol inhaler famotidine 20 mg tablet (Pepcid) 20 mg PO BID #28 tabs 03/02/25 05/30/25 ondansetron 4 mg disintegrating 4 mg PO Q8H PRN #10 tabs 03/02/25 05/30/25 tablet sennosides 8.6 mg-docusate sodium 1 tab-cap PO BID 03/02/25 05/30/25 50 mg tablet (Stimulant Laxative Plus) topiramate 200 mg tablet 200 mg PO BID 03/02/25 05/30/25 trazodone 100 mg tablet 100 mg PO BID 03/02/25 05/30/25 olanzapine 5 mg tablet 5 mg PO HS 03/12/25 05/30/25 potassium chloride 10 mEq 10 meq PO DAILY 03/12/25 05/30/25 capsule,extended release acetaminophen 325 mg tablet 650 mg (2 x 325 mg) PO Q4H PRN PRN 03/14/25 05/30/25 #0 tabs omeprazole 40 mg capsule,delayed 40 mg PO DAILY #30 caps 03/14/25 05/30/25 release Niacinamide/Semaglutide 17 unit subcut USEASDIRECTD 05/10/25 05/30/25 celecoxib 200 mg capsule (Celebrex) 200 mg PO BID #30 caps 05/30/25 pregabalin 50 mg capsule 50 mg PO BID #60 caps 05/30/25 Previous Rx's ?Medication ?Instructions ?Recorded multivitamin (Multiple Vitamins 1 tab PO DAILY #30 tabs 08/08/23 tablet) famotidine 20 mg tablet (Pepcid) 20 mg PO BID #28 tabs 03/02/25 ondansetron 4 mg disintegrating 4 mg PO Q8H PRN #10 tabs 03/02/25 tablet acetaminophen 325 mg tablet 650 mg (2 x 325 mg) PO Q4H PRN PRN 03/14/25 #0 tabs omeprazole 40 mg capsule,delayed 40 mg PO DAILY #30 caps 03/14/25 release celecoxib 200 mg capsule (Celebrex) 200 mg PO BID #30 caps 05/30/25 pregabalin 50 mg capsule 50 mg PO BID #60 caps 05/30/25 Allergies Allergy/AdvReac Type Severity Reaction Status Date / Time No Known Allergies Allergy Verified 05/30/25 09:00 General Stated Complaint: RX Refill MAIA: 3 Review of Systems All systems reviewed & are unremarkable except as noted in HPI and below Constitutional Constitutional: Denies fever(s) Exam Const General: cooperative and no acute distress HENMT Mouth: moist mucous membranes Eyes Conjunctivae: normal conjunctivae Sclera: normal sclerae Resp Auscultation: clear to auscultation bilaterally, no rales, no rhonchi and no wheezes Cardio Rate: regular rate and not tachycardic Rhythm: regular rhythm GI Palpation: soft, not firm, no guarding, no masses, not rigid and nontender Skin General skin exam: no rashes or lesions noted Neuro General: patient alert, patient awake, patient oriented x3 and tone normal Extrem General: no edema Psych Appearance: grossly normal Mental Status: mental status grossly normal Speech and Movement: speech and movement normal Course Vital Signs Vital signs: Vital Signs Temperature 36.6 C 05/30/25 08:54 Pulse 120 H 05/30/25 08:54 Respiratory Rate 16 05/30/25 08:54 Blood Pressure 141/97 H 05/30/25 08:54 Pulse Oximetry 99 05/30/25 08:54 Temperature 36.6 C 05/30/25 08:54 Temperature Source Oral 05/30/25 08:54 Pulse 103 H 05/30/25 09:12 Respiratory Rate 16 05/30/25 09:12 Blood Pressure 118/91 H 05/30/25 09:12 Blood Pressure Mean 100 05/30/25 09:12 Blood Pressure Position Sitting 05/30/25 08:54 Pulse Oximetry 97 05/30/25 09:12 Oxygen Delivery Method Room Air 05/30/25 09:12 Oxygen Flow Rate 0 05/30/25 09:12 Pain Level 6 05/30/25 08:54 Medical Decision Making ASSESSMENT AND PLAN Initial Assessment: 54-year-old female with multiple medical problems including bipolar affective disorder, migraine headache, GERD, hypertension, and arthritis. Experiencing increased arthritic pain and nausea due to running out of pregabalin. Patient mildly tachycardic initially on arrival. Now hemodynamically stable. Clinical Impression: - Arthritis - Nausea - Withdrawal from Lyrica ED course: Patient was given ondansetron for nausea. I called and spoke with PCP office regarding her presentation today. They will be calling in prescription for Lyrica 50 mg twice daily and Celebrex 200 mg twice daily to start today. Initial dose of Lyrica was provided here in the emerged permit. Discharge plan discussed with the patient who is in agreement. Usual and customary discharge instructions were reviewed. Patient stable and requesting discharge. Final assessment: Withdrawal from Lyrica, arthritic pain Disposition: - Follow-Up: Patient to call to arrange follow-up appointment. This document was written with the assistance of CURTIS Banda. The patient consented to its use. PFSH All Active Problems Arthritic-like pain (Acute) Medication withdrawal (Acute) Incidental pulmonary nodule (Acute) UTI (urinary tract infection) (Acute) Near syncope (Acute) Elevated blood pressure reading with diagnosis of hypertension (Acute) Distended bladder (Acute) Urinary frequency (Acute) Hip pain (Acute) Sepsis (Acute) Elevated LFTs (Acute) Nausea (Acute) Abdominal pain (Acute) Nausea vomiting and diarrhea (Acute) UTI (urinary tract infection) (Acute) Acute hypokalemia (Acute) Well woman exam with routine gynecological exam (Acute) Screening for cervical cancer (Acute) Family history of colon cancer (Acute) Post-menopausal bleeding (Acute) Anxiety (Chronic) Folate deficiency (Acute) B12 deficiency (Acute) Depression (Chronic) Hyponatremia (Acute) Distal radius fracture, left (Acute 10/15/22) Right ankle sprain (Acute) Medical History Bipolar affective disorder Migraine headache Alcohol abuse GERD (gastroesophageal reflux disease) HTN (hypertension) Surgical History [place] benign disease[place] [facility] [place] chole[place] S/P tubal ligation converted to open Family History Mother Aortic aneurysm rupture Breast cancer Social History Smoking/Tobacco Use Status: Former Tobacco Use Smoking risk assessment performed?: Yes Alcohol Intake: former Drug use: Occasionally Substance use type: marijuana Housing: house Do you feel safe at home: Yes Do you feel safe in your relationship?: Yes Additional Social history: Grew up in [place], [employer]. Lives in [place]. Son and sister are supports
[2025-05-30] MEDS: Ondansetron O.D.T. 4 MG TABEF PO (09:29)
[2025-05-30 09:33] VITALS: BP 124/87; PULSE 99; RESP 13; O2SAT 99
[2025-05-30] MEDS: Pregabalin 50 MG CAP PO (09:40)
[2025-05-30 09:43] VITALS: PULSE 90
== END 2025-05-30 09:54 | disposition home or self-care (01) ==
PROVIDERS: Emergency Provider Student in an Organized Health Care Education/Training Program; PCP Student in an Organized Health Care Education/Training Program
DX: F15.23 Other stimulant dependence with withdrawal (principal); R11.0 Nausea
CPT/HCPCS: 99283 ×2

== ENCOUNTER 2025-05-31 17:53 | Outpatient (CLI) | payer OTHER, SELFPAY ==
--- NOTE | 2025-05-31 17:45 | RT.EKG_ITS ---
APPROVED REPORT Exam: Resting ECG Reason for Exam: Chest discomfort Patient Location: O HR:104 bpm ECG Measurements Heart Rate 104 AXIS NM 149 P 12 QRSd 94 QRS 23 QT 338 T 28 QTc 445 Conclusion Sinus tachycardia...rate> 99 Baseline wander in lead(s) I,II,aVR Otherwise normal ECG
== END 2025-05-31 17:54 | disposition home or self-care (01) ==
LOC: DI.CM 17:53
PROVIDERS: PCP Student in an Organized Health Care Education/Training Program; Visit Provider Nurse Practitioner Family
DX: R07.89 Other chest pain (principal); R00.0 Tachycardia, unspecified
CPT/HCPCS: 93010

== ENCOUNTER 2025-06-06 08:42 | Outpatient (RCR) | payer OTHER, SELFPAY ==
--- NOTE | 2025-06-12 09:11 | W.HOLTRPT ---
Date of service: 06/12/25 Time of Service: 09:11 Holter Monitor Report Referring Provider:: Christopher Knott Indications:: Syncope Holter Monitor Note: This is a 48-hour Holter monitor. Rhythm throughout was sinus with an average heart rate of 95. Minimum was 78, maximum 118 There were 3 premature ventricular contractions There were 22 premature atrial contractions. There was no atrial fibrillation, no high-grade AV block, no pauses greater than 3 seconds Reported symptoms correlated to sinus rhythm
== END 2025-06-15 23:59 | disposition home or self-care (01) ==
LOC: CARDOPNVT 08:42
PROVIDERS: PCP Student in an Organized Health Care Education/Training Program; Visit Provider Internal Medicine Cardiovascular Disease
DX: I49.1 Atrial premature depolarization (principal); I49.3 Ventricular premature depolarization; R55 Syncope and collapse
CPT/HCPCS: 93225; 93226

== ENCOUNTER 2025-06-07 13:29 | Outpatient (REF) | payer OTHER, SELFPAY ==
[2025-06-07 14:54] LABS: Glucose Negative (Negative)
[2025-06-07 15:06] LABS: C & S Indicated? Yes
== END 2025-06-07 13:30 | disposition home or self-care (01) ==
LOC: LBN 13:29
PROVIDERS: PCP Student in an Organized Health Care Education/Training Program; Visit Provider Nurse Practitioner Gerontology
DX: R35.0 Frequency of micturition (principal)
CPT/HCPCS: 87077; 81003; 81015; 87086; 87186

== ENCOUNTER 2025-06-12 12:34 | Outpatient (REF) | payer OTHER, SELFPAY ==
--- NOTE | 2025-06-12 12:30 | PAPNONF_PTH ---
PATIENT: Lisseth Boone LOC: [facility] U#:[id number] AGE/SX: 54/F ROOM: RE06/12/[address]: Ruth Cortes DNP : 1970 BED: DIS: 06/12/2025 SPEC #: [id number] RECD: 06/12/25 15:46 STATUS: DEMETRIA DIAZ #: [id number] MARY: 06/12/25 12:[address]: Ruth Cortes DEPT: ON LICENSE OF [facility] Cytology RECD BY: Ellie Ovalle ENTERED: 06/12/25 15:46 SP TYPE: SONU HERNANDEZ DR: Christopher Knott Tissues: 1 - BODY FLUID CYTO(SPUTUM/URINE)[facility] Procedures: BODY FLUID CYTO(URINE/SPUTUM) Comments: [id number] (TV = 50 ml, 30 ml CYTOLYT ADDED) (REFRIGERATED)
== END 2025-06-12 12:35 | disposition home or self-care (01) ==
LOC: LBN 12:34
PROVIDERS: PCP Student in an Organized Health Care Education/Training Program; Visit Provider Nurse Practitioner Gerontology
DX: R31.9 Hematuria, unspecified (principal)
CPT/HCPCS: 88104

== ENCOUNTER 2025-06-26 11:05 | Outpatient (REF) | payer OTHER, SELFPAY ==
[2025-06-26 17:00] LABS: Abs Immature Grans 0.03 10^3/uL (0.0-0.06); HCT 37.4 % (36.0-46.0); HGB 12.2 g/dL (11.2-15.7); Immature Grans % 0.5 %; MCH 31.9 pg (27.0-33.0); MCHC 32.6 % (32.0-36.0); MCV 98 fL (80-95); MPV 12.8 fL (8.0-11.0); Platelet Count 374 10^3/uL (130-400); RBC 3.82 10^6/uL (3.93-5.22); RDW 14.1 % (11.7-14.6); RDW-SD 51.1 fL; WBC 6.34 10^3/uL (4.4-10.8)
== END 2025-06-26 11:06 | disposition home or self-care (01) ==
LOC: NCHCN 11:05
PROVIDERS: PCP Student in an Organized Health Care Education/Training Program; Visit Provider Student in an Organized Health Care Education/Training Program
DX: D75.89 Other specified diseases of blood and blood-forming organs (principal)
CPT/HCPCS: 85025

== ENCOUNTER 2025-07-24 15:17 | Outpatient (REF) | payer OTHER, SELFPAY ==
[2025-07-27 14:13] LABS: 2-OH-Ethyl-Flurazepam Negative ng/mL (Cutoff: 10); 7-NH-Clonazepam 88 ng/mL (Cutoff: 10); 7-NH-Flunitrazepam Negative ng/mL (Cutoff: 10); Alpha OH-Alprazolam Negative ng/mL (Cutoff: 10); Alpha-OH Midazolam Negative ng/mL (Cutoff: 10); Benzodiazepines Interpretation Positive.; Prazepam Negative ng/mL (Cutoff: 10); Zolpidem Carboxylic acid Negative ng/mL (Cutoff: 10)
== END 2025-07-24 15:18 | disposition home or self-care (01) ==
LOC: NCHCN 15:17
PROVIDERS: PCP Student in an Organized Health Care Education/Training Program; Visit Provider Student in an Organized Health Care Education/Training Program
DX: F41.9 Anxiety disorder, unspecified (principal); I10 Essential (primary) hypertension
CPT/HCPCS: 80346; 82043; 82570